=== PATIENT | male | born 1975 | race Caucasian/White ===

== ENCOUNTER 2023-03-01 12:48 | Outpatient (RCR) | payer MEDICARE, SELFPAY | END 2023-03-08 14:00 | disposition home or self-care (01) | LOC: PT 12:48 | PROVIDERS: PCP Family Medicine; Visit Provider Anesthesiology Pain Medicine | DX: M54.16 Radiculopathy, lumbar region (principal) | CPT/HCPCS: 97110; 97162 ==

== ENCOUNTER 2023-03-15 07:37 | Day surgery (SDC) | payer MEDICARE, SELFPAY ==
[2023-03-15 08:09] VITALS: BP 140/92; PULSE 68; RESP 16; TEMP 36.7; O2SAT 97
[2023-03-15] MEDS: 0.9 % SODIUM CHLORIDE 500 ML IV (08:16)
--- NOTE | 2023-03-15 08:25 | W.PM.PROCNOT ---
Date of procedure: 03/15/23 Procedure: Right Lateral cutaneous iliohypogastric nerve Radiofrequency ablation PreOp diagnosis: pain secondary to include right lateral cutaneous neuritis Postop diagnosis same Under fluoroscopic guidance Rhizotomy was created using radio frequency ablation at 80?C for 90 seconds 1 to 2 lesions created at each site. Post lesioning injection of 2 mL each of 0.25% Marcaine and 2% lidocaine with Depo-Medrol 40mg. 0.5 to 1 mL injected at each site IV in place yes Intravenous fluids: NS at KVO Anesthesia local 2% lidocaine for Anesthesia Other: MAC Timeout process compliant After informed consent obtained. Patient brought to the procedure room placed in the prone position skin overlying the area was prepped and draped in a sterile fashion using betadine. 25 gauge needle was used to create a skin wheal over each of the targeted areas utilizing 2% lidocaine. A rhizotomy needle with a 10 mm active tip was inserted over each of the anesthetized areas and directed towards four different areas in the distribution of the lateral cutaneous branches of the iliohypogastric nerve, accomplished under fluoroscopic guidance. After encountering the same we had positive sensory stimulation, negative motor stimulation was noted. lesions were then created. Post lesioning, steroid solution was injected needles removed. Patient was transferred to recovery room in stable condition to be discharged home after meeting criteria. Anesthesia: MAC Surgeon: Gustavo Carrillo Condition: stable
[2023-03-15] MEDS: METHYLPREDNISOLONE ACETATE 40 MG/ML VIAL INJ (09:03)
[2023-03-15] MEDS: LIDOCAINE HCL 2% 400 MG/20 ML MDV 8 ML INJ (09:04)
[2023-03-15] MEDS: BUPIVACAINE HCL 0.25% PF 25 MG/10 ML VIAL 4 ML INJ (09:05)
[2023-03-15 09:17] VITALS: BP 123/67; PULSE 75; RESP 16; TEMP 36.6; O2SAT 95
[2023-03-15 09:19] VITALS: BP 122/77; PULSE 73; RESP 16; TEMP 36.6; O2SAT 96
== END 2023-03-15 09:34 | disposition home or self-care (01) ==
LOC: SURGOUT 07:38
PROVIDERS: PCP Family Medicine; Visit Provider Anesthesiology Pain Medicine
DX: G57.81 Other specified mononeuropathies of right lower limb (principal)
CPT/HCPCS: 64640; 77002; J1030; J2704

== ENCOUNTER 2023-04-14 08:54 | Outpatient (OUT) | payer MEDICARE, SELFPAY ==
--- NOTE | 2023-04-14 09:26 | PM.CN ---
Consult Note: HPI Data of Consult Patient: known to practice within the last 3 years Consult date: 04/14/23 Requesting Physician: NATALIYA BARTHOLOMEW NP Primary Care Provider: GERMANIA NAILS Consult Narrative Narrative: Patient is here for f/u of right LCIH done on 03/15/23. He had 70% relief of pain with increased fx after procedure continued through today. Pain is in Bilateral SI areas. No new sensorimotor sx or bowel or bladder issues. No adverse medication SE. Medications assist patient with better ability to perform ADLs. He does not have narca at home. RX given today cc:: CC: NATALIYA BARTHOLOMEW NP Review of Systems ROS Status of ROS 10 or more systems reviewed and unremarkable except as noted in history and below Musculoskeletal Reports: back pain PFSH PFSH Medical History Surgical History Meds Home Medications and Allergies Home Medications Medication Instructions Recorded Confirmed Type albuterol sulfate 90 mcg/actuation inhalation Q4H PRN shortness of 03/10/23 History aerosol inhaler breath or wheezing diclofenac sodium 50 mg 50 mg PO BID 03/10/23 03/15/23 History tablet,delayed release duloxetine 30 mg capsule,delayed 30 mg PO QDAY 03/10/23 03/15/23 History release duloxetine 60 mg capsule,delayed 60 mg PO QDAY 03/10/23 03/15/23 History release hydrocodone 5 mg-acetaminophen 325 1 tab PO TID PRN pain 03/10/23 03/15/23 History mg tablet ipratropium 0.5 mg-albuterol 3 mg 3 ml inhalation TID 03/10/23 03/15/23 History (2.5 mg base)/3 mL nebulization soln lisinopril 20 mg tablet 20 mg PO QDAY 03/10/23 03/15/23 History omeprazole 20 mg capsule,delayed 20 mg PO QDAY 03/10/23 03/15/23 History release pregabalin 50 mg capsule (Lyrica) 50 mg PO TID 03/10/23 03/15/23 History tizanidine 4 mg tablet 4 mg PO BID PRN muscle spasticity 03/10/23 03/15/23 History trazodone 50 mg tablet 50 mg PO .hs PRN sleep 03/10/23 03/15/23 History Allergies Allergy/AdvReac Type Severity Reaction Status Date / Time No Known Drug Allergies Allergy Verified 03/15/23 08:23 Exam Constitutional Documenting provider has reviewed patient's vital signs: yes Common normals: no apparent distress, oriented x3, no limitations, alert and well nourished General appearance: cooperative, comfortable and well developed Orientation/consciousness: Yes awake, Yes oriented to person, Yes oriented to place and Yes oriented to time Other: uses cane HENMT Common normals: normocephalic and moist oral mucous membranes Respiratory Common normals: normal respiratory effort, no retractions and no use of accessory muscles Effort & inspection: able to speak in complete sentences and symmetric chest movement Back & Pelvis Common normals: thoracic and lumbar spine normal to inspection Lumbar spine/lower back: normal to inspection, ROM limited, pain with ROM, paraspinal muscle tenderness and paraspinal muscle spasm Other: positive facet loading bilat positive jo-ann bilat Muscle strength 4/5 bilat with intact sensation bilat LE Assessment and Plan Assessment and Plan (1) Sacroiliac joint pain: (2) Muscle spasm: (3) Lumbar spondylosis:
== END 2023-04-14 08:55 | disposition home or self-care (01) ==
LOC: PM 08:54
PROVIDERS: PCP Family Medicine; Visit Provider Nurse Practitioner
DX: M47.816 Spondylosis without myelopathy or radiculopathy, lumbar region (principal); M62.838 Other muscle spasm; M53.3 Sacrococcygeal disorders, not elsewhere classified
CPT/HCPCS: G0463

== ENCOUNTER 2023-07-27 09:00 | Outpatient (OUT) | payer MEDICARE, SELFPAY ==
--- NOTE | 2023-07-27 09:50 | PM.CN ---
Consult Note: HPI Data of Consult Patient: known to practice within the last 3 years Requesting Physician: Razia Contreras NP Primary Care Provider: GERMANIA NAILS Consult Narrative Reason for consult: f/u Narrative: Riccardo Hale a pleasant 47 year old male presents for evaluation and management of chronic back pain with radiculopathy into bilateral buttocks and legs. Patient rating pain 7/10 today, constant, burning sharp pain with intermittent numbness, tingling, and weakness to bilateral legs. Patient has been on diclofenac, norco, lyrica, tizanidine, trazadone with mild pain relief. Patient noticing weight gain and pain continuing to impact functional ability. Would like to discuss treatment options, has been evaluated by many surgeons and deemed non surgical or high risk per patient. cc:: CC: Razia Contreras NP Review of Systems ROS Status of ROS 10 or more systems reviewed and unremarkable except as noted in history and below Musculoskeletal Reports: back pain and muscle weakness PFSH PFSH Medical History Acid reflux ?K21.9 - Gastro-esophageal reflux disease without esophagitis (ICD-10) Former smoker ?Z87.891 - Personal history of nicotine dependence (ICD-10) High cholesterol ?E78.00 - Pure hypercholesterolemia, unspecified (ICD-10) Hypertension ?I10 - Essential (primary) hypertension (ICD-10) Numbness and tingling ?R20.0 - Anesthesia of skin (ICD-10) ?R20.2 - Paresthesia of skin (ICD-10) Obesity ?E66.9 - Obesity, unspecified (ICD-10) Osteoarthritis ?M19.90 - Unspecified osteoarthritis, unspecified site (ICD-10) Sleep apnea ?G47.30 - Sleep apnea, unspecified (ICD-10) Surgical History History of tonsillectomy and adenoidectomy ?Z90.89 - Acquired absence of other organs (ICD-10) Meds Home Medications and Allergies Home Medications Medication Instructions Recorded Confirmed Type albuterol sulfate 90 mcg/actuation inhalation Q4H PRN shortness of 03/10/23 History aerosol inhaler breath or wheezing diclofenac sodium 50 mg 50 mg PO BID 03/10/23 03/15/23 History tablet,delayed release duloxetine 30 mg capsule,delayed 30 mg PO QDAY 03/10/23 03/15/23 History release duloxetine 60 mg capsule,delayed 60 mg PO QDAY 03/10/23 03/15/23 History release hydrocodone 5 mg-acetaminophen 325 1 tab PO TID PRN pain 03/10/23 03/15/23 History mg tablet ipratropium 0.5 mg-albuterol 3 mg 3 ml inhalation TID 03/10/23 03/15/23 History (2.5 mg base)/3 mL nebulization soln lisinopril 20 mg tablet 20 mg PO QDAY 03/10/23 03/15/23 History omeprazole 20 mg capsule,delayed 20 mg PO QDAY 03/10/23 03/15/23 History release pregabalin 50 mg capsule (Lyrica) 50 mg PO TID 03/10/23 03/15/23 History tizanidine 4 mg tablet 4 mg PO BID PRN muscle spasticity 03/10/23 03/15/23 History trazodone 50 mg tablet 50 mg PO .hs PRN sleep 03/10/23 03/15/23 History hydrocodone 5 mg-acetaminophen 325 1 tab PO TID PRN pain #75 tabs 05/25/23 Rx mg tablet diclofenac sodium 75 mg 75 mg PO BID PRN pain #60 tabs 07/27/23 Rx tablet,delayed release hydrocodone 5 mg-acetaminophen 325 1 tab PO TID PRN pain #75 tabs 07/27/23 Rx mg tablet Allergies Allergy/AdvReac Type Severity Reaction Status Date / Time No Known Drug Allergies Allergy Verified 03/15/23 08:23 Exam Constitutional Documenting provider has reviewed patient's vital signs: yes Common normals: no apparent distress, oriented x3, healthy appearing, alert and well nourished General appearance: cooperative Orientation/consciousness: Yes awake, Yes oriented to person, Yes oriented to place and Yes oriented to time Other: uses cane HENMT Common normals: normocephalic, hearing grossly normal bilaterally and moist oral mucous membranes Head and scalp: normocephalic Eye Common normals: PERRL Pupil: PERRL Neck & C-Spine Common normals: full ROM General: normal visual inspection Chest Common normals: inspection of chest normal Respiratory Common normals: normal respiratory effort, no retractions and no use of accessory muscles Effort & inspection: able to speak in complete sentences and symmetric chest movement Back & Pelvis Common normals: thoracic and lumbar spine normal to inspection Lumbar spine/lower back: normal to inspection, ROM limited, pain with ROM, paraspinal muscle tenderness, paraspinal muscle spasm, straight leg raise positive right and straight leg raise positive left Other: positive facet loading bilat positive jo-ann bilat Muscle strength 4/5 bilat with intact sensation bilat LE Extremity Common normals: normal to inspection and full ROM Neuro Common normals: oriented x3, CN's II-XII intact bilaterally, moves all extremities, no focal motor deficits, no sensory deficits noted and deep tendon reflexes 2+ bilaterally Sensorium/orientation: alert Gait (neuro): antalgic and assistive device used cane Motor exam: no movement abnormalities noted and strength abnormal (4/5 BLE) Psych Common normals: mental status grossly normal, thought process normal, cooperative, affect normal, speech normal and activity/motor behavior normal Speech: normal speech Thought process: normal thought process Results Additional Findings Additional findings: I have checked an OARRS report on this patient today and there are no aberrancies noted in the prescribing history.?? A drug screen was completed and reviewed within the last year, and if there has not been a drug screen completed we ordered one today to monitor higher risk, state monitored pain medication use. As part of providing excellent, safe, comprehensive care, the following was completed at our patient's visit: 1. A medication reconciliation and review to ensure accurate knowledge of current/active medications, including asking our patients to inform us about any [id number] medications or herbal remedies/nutritional supplements/alternative remedies. 2. A review to specifically ensure our patients have had annual screening for: elevated body mass index (BMI), tobacco use, screening for depression, and screening for unhealthy alcohol use. When screening is concerning, patients are provided with education and the specific recommendation to discuss the concerning health issue and treatment options with their primary care provider. Assessment and Plan Assessment and Plan (1) Lumbar radiculopathy: (2) Lumbar spondylosis: (3) Muscle spasm: (4) Obesity: Plan continue current medications aquatherapy for low back pain L4-5 KEMAR under fluoroscopy for lumbar radiculopathy f/u with PCP for weight loss management f/u 2 weeks after KEMAR, consider updating imaging of lumbar spine and additional workup for SCS if patient does not responde well to KEMAR.
== END 2023-07-27 09:01 | disposition home or self-care (01) ==
PROVIDERS: PCP Family Medicine; Visit Provider Nurse Practitioner
DX: M54.16 Radiculopathy, lumbar region (principal); M47.816 Spondylosis without myelopathy or radiculopathy, lumbar region; M62.838 Other muscle spasm; E66.9 Obesity, unspecified
CPT/HCPCS: G0463

== ENCOUNTER 2023-08-09 08:01 | Day surgery (SDC) | payer MEDICARE, SELFPAY ==
[2023-08-09 08:32] VITALS: BP 153/97; PULSE 80; RESP 16; TEMP 36.6; O2SAT 97
[2023-08-09 09:47] VITALS: BP 147/97; PULSE 74; RESP 17; O2SAT 98
[2023-08-09] MEDS: 0.9 % SODIUM CHLORIDE 10 ML SYRINGE - SALINE FLUSH 2 ML INJ (09:47)
[2023-08-09] MEDS: METHYLPREDNISOLONE ACETATE 80 MG/ML VIAL INJ (09:47)
[2023-08-09] MEDS: LIDOCAINE HCL 2% PF 100 MG/5 ML VIAL 4 ML INJ (09:47)
[2023-08-09] MEDS: BUPIVACAINE HCL 0.25% PF 25 MG/10 ML VIAL 2 ML INJ (09:47)
[2023-08-09] MEDS: IOHEXOL 240 MG/ML - 10 ML VIAL INJ (09:47)
[2023-08-09 09:49] VITALS: BP 135/91; PULSE 78; RESP 18; O2SAT 94
--- NOTE | 2023-08-09 10:07 | P.ON_ITS ---
Date of procedure: 08/09/23 Pre-op diagnosis: Lumbar Radiculitis Post-op diagnosis: same as pre-op Procedure: Lumbar 4/5 Epidural Steroid Injection Under fluoroscopic guidance Immediate complications none Solution used for injection: Marcaine 0.25% 2mL, 2cc Normal saline, Depo-Medrol 80mg Omnipaque 3 mL Anesthesia local 2% lidocaine up to 4ml Timeout process compliant After informed consent obtained. Patient brought to the procedure room placed in the prone position. Skin overlying the area was prepped and draped in a sterile fashion using betadine. 25 gauge needle used to raise a skin wheel with local anesthetic over the target area identified under fluoroscopy. A 17 gauge Touhy n eedle Was inserted over the anesthetized area and directed towards the inter- space under fluoroscopic guidance. Epidural space was identified with loss of resistance technique to air. Needle Tip placement confirmed with injection of contrast solution. Steroid solution was then injected. Anesthesia: Local Surgeon: Gustavo Carrillo Condition: stable
== END 2023-08-09 09:55 | disposition home or self-care (01) ==
LOC: SURGOUT 08:02
PROVIDERS: PCP Family Medicine; Visit Provider Anesthesiology Pain Medicine
DX: M54.16 Radiculopathy, lumbar region (principal)
CPT/HCPCS: 62323; J1040; Q9966

== ENCOUNTER 2023-08-31 07:59 | Outpatient (OUT) | payer MEDICARE, SELFPAY ==
--- NOTE | 2023-08-31 08:01 | P.CN_ITS ---
Consult Note: HPI Data of Consult Patient: known to practice within the last 3 years Requesting Physician: Razia Contreras NP Primary Care Provider: GERMANIA NAILS Consult Narrative Reason for consult: f/u Narrative: Riccardo Hale a pleasant 48 year old male presents for evaluation and management of chronic back pain with radiculopathy. Patient recently underwent L4/5 KEMAR with 10% relief in radicular symptoms for 2 days. Today rating pain 8/10 bilateral low back radiating to bilateral thighs and lower leg, burning tingling sharp and intermittent numbness. Patients symptoms worse with sitting or standing too long, leaning forward decreases pain. cc:: CC: Razia Contreras NP Review of Systems ROS Status of ROS 10 or more systems reviewed and unremark able except as noted in history and below Musculoskeletal Reports: back pain and muscle weakness PFSH PFSH Medical History Osteoarthritis ?M19.90 - Unspecified osteoarthritis, unspecified site (ICD-10) Numbness and tingling ?R20.0 - Anesthesia of skin (ICD-10) ?R20.2 - Paresthesia of skin (ICD-10) Obesity ?E66.9 - Obesity, unspecified (ICD-10) Acid reflux ?K21.9 - Gastro-esophageal reflux disease without esophagitis (ICD-10) Former smoker ?Z87.891 - Personal history of nicotine dependence (ICD-10) Sleep apnea ?G47.30 - Sleep apnea, unspecified (ICD-10) High cholesterol ?E78.00 - Pure hypercholesterolemia, unspecified (ICD-10) Hypertension ?I10 - Essential (primary) hypertension (ICD-10) Surgical History History of tonsillectomy and adenoidectomy ?Z90.89 - Acquired absence of other organs (ICD-10) Meds Home Medications and Allergies Home Medications Medication Instructions Recorded Confirmed Type albuterol sulfate 90 mcg/actuation inhalation Q4H PRN shortness of 03/10/23 History aerosol inhaler breath or wheezing diclofenac sodium 50 mg 50 mg PO BID 03/10/23 08/09/23 History tablet,delayed release duloxetine 30 mg capsule,delayed 30 mg PO QDAY 03/10/23 08/09/23 History release duloxetine 60 mg capsule,delayed 60 mg PO QDAY 03/10/23 08/09/23 History release hydrocodone 5 mg-acetaminophen 325 1 tab PO TID PRN pain 03/10/23 08/09/23 History mg tablet ipratropium 0.5 mg-albuterol 3 mg 3 ml inhalation TID 03/10/23 03/15/23 History (2.5 mg base)/3 mL nebulization soln lisinopril 20 mg tablet 20 mg PO QDAY 03/10/23 08/09/23 History omeprazole 20 mg capsule,delayed 20 mg PO QDAY 03/10/23 08/09/23 History release pregabalin 50 mg capsule (Lyrica) 50 mg PO TID 03/10/23 08/09/23 History tizanidine 4 mg tablet 4 mg PO BID PRN muscle spasticity 03/10/23 08/09/23 History trazodone 50 mg tablet 50 mg PO .hs PRN sleep 03/10/23 08/09/23 History hydrocodone 5 mg-acetaminophen 325 1 tab PO TID PRN pain #75 tabs 05/25/23 08/09/23 Rx mg tablet diclofenac sodium 75 mg 75 mg PO BID PRN pain #60 tabs 07/27/23 08/09/23 Rx tablet,delayed release hydrocodone 5 mg-acetaminophen 325 1 tab PO TID PRN pain #75 tabs 07/27/23 08/09/23 Rx mg tablet Allergies Allergy/AdvReac Type Severity Reaction Status Date / Time No Known Drug Allergies Allergy Verified 03/15/23 08:23 Exam Constitutional Documenting provider has reviewed patient's vital signs: yes Common normals: no apparent distress, oriented x3, healthy appearing, alert and well nourished General appearance: cooperative Orientation/consciousness: Yes awake, Yes oriented to person, Yes oriented to place and Yes oriented to time Other: uses cane HENMT Common normals: normocephalic, hearing grossly normal bilaterally and moist oral mucous membranes Head and scalp: normocephalic Eye Common normals: PERRL Pupil: PERRL Neck & C-Spine Common normals: full ROM General: normal visual inspection Chest Common normals: inspection of chest normal Respiratory Common normals: normal respiratory effort, no retractions and no use of accessory muscles Effort & inspection: able to speak in complete sentences and symmetric chest movement Back & Pelvis Common normals: thoracic and lumbar spine normal to inspection Lumbar spine/lower back: normal to inspection, ROM limited, pain with ROM, paraspinal muscle tenderness, paraspinal muscle spasm, straight leg raise positive right and straight leg raise positive left Other: positive facet loading bilat positive jo-ann bilat Muscle strength 4/5 bilat with intact sensation bilat LE Extremity Common normals: normal to inspection and full ROM Neuro Common normals: oriented x3, CN's II-XII intact bilaterally, moves all extremities, no focal motor deficits, no sensory deficits noted and deep tendon reflexes 2+ bilaterally Sensorium/orientation: alert Gait (neuro): antalgic and assistive device used cane Motor exam: strength 5/5 throughout and no movement abnormalities noted Psych Common normals: mental status grossly normal, thought process normal, cooperative, affect normal, speech normal and activity/motor behavior normal Speech: normal speech Thought process: normal thought process Results Additional Findings Additional findings: I have checked an OARRS report on this patient today and there are no aberrancies noted in the prescribing history.?? A drug screen was completed and reviewed within the last year, and if there has not been a drug screen completed we ordered one today to monitor higher risk, state monitored pain medication use. As part of providing excellent, safe, comprehensive care, the following was completed at our patient's visit: 1. A medication reconciliation and review to ensure accurate knowledge of current/active medications, including asking our patients to inform us about any [id number] medications or herbal remedies/nutritional supplements/alternative remedies. 2. A review to specifically ensure our patients have had annual screening for: elevated body mass index (BMI), tobacco use, screening for depression, and screening for unhealthy alcohol use. When screening is concerning, patients are provided with education and the specific recommendation to discuss the concerning health issue and treatment options with their primary care provider. Assessment and Plan Assessment and Plan (1) Lumbar radiculopathy: (2) Lumbar spondylosis: (3) Muscle spasm: (4) Sacroiliac joint pain: (5) Chronic prescription opiate use: Assessment and Plan: I feel these medications are improving the patient's quality of life and allow them to tolerate activities of daily living as well as participate in recreational activity.? The patient does not report intolerable side effects. The patient is NOT opioid naive and non-pharmacologic and non-opioid treatment has failed to significantly relieve the patient's pain and improve functionality. The patient has a diagnosis that is related to a somatic or visceral pain etiology. ? ?? I reviewed with the patient the potential risks and side effects with the use of? opioid medications including but not limited to respiratory depression,? sedation, and even . I verified the patient has access to naloxone should? these effects occur. I advised the patient to avoid the use of any other? sedation substances including alcohol, THC, and benzodiazepines while? taking opioid medications due to the risk of compounding side effects and? detrimental outcomes. I reviewed the ENRICHMENT TEACHER, pain treatment agreement, urine? drug screen, and opioid start talking forms. The patient was advised to let? their family know they had Naloxone in case they would need to administer? the medication.? ?? A drug screen was completed within the last year, and no aberrancies were noted regarding their use of controlled substances. The patient understands they are subject to the terms and conditions of the pain contract that they have signed. ? ?? I have checked an OARRS report on this patient today and there are no aberrancies noted in the prescribing history.? Plan update lumbar MRI without contrast in the future as patient continues to have moderate to severe low back pain unresponsive to injection therapy, PT/HEP, and medication therapy continue current medications, tolerating well without side effects continue muscle relaxant rotation in the future not interested in SCS at this time f/u 3 months for medication management
== END 2023-08-31 08:00 | disposition home or self-care (01) ==
PROVIDERS: PCP Family Medicine; Visit Provider Nurse Practitioner
DX: M54.16 Radiculopathy, lumbar region (principal); M47.816 Spondylosis without myelopathy or radiculopathy, lumbar region; M62.838 Other muscle spasm; M53.3 Sacrococcygeal disorders, not elsewhere classified; Z79.891 Long term (current) use of opiate analgesic
CPT/HCPCS: G0463

== ENCOUNTER 2023-11-30 07:55 | Outpatient (OUT) | payer MEDICARE, SELFPAY ==
--- OUTSIDE RECORDS SUMMARY | 2023-11-30 08:06 | XMS_ITS | CCD ---
Author Name Unknown Address [address] [place] [address] Organization [facility] Care Team Providers Care Outcomes Specialist Name Role Phone KIRNUS, DALLAS Unavailable Unavailable KIRNUS, DALLAS Unavailable Unavailable CONWAY ., KALI Consulting Unavailable LAKSHMIPATHY ., NARAAYUSHATH Admitting Tiffany vailable HOUSE, DR SOLO Primary Care Unavailable LAKSHMIPATHY ., MESSI Attending Tiffany vailable LAKSHMIPATHY ., NARENDOMEGAATH Consulting Tiffany vailable LAKSHMIPATHY ., NARAAYUSHATH Admitting Tiffany vailable LAKSHMIPATHY ., MESSI Consulting Tiffany vailable HOUSE, DR SOLO Primary Care Unavailable LAKSHMIPATHY ., MESSI Attending Tiffany vailable GIL ., DR LUCY Maurice Consulting Unavailable GIL ., DR LUCY Maurice Attending Unavailable GIL ., DR LUCY Maurice Admitting Unavailable HOY ., DR GONZALEZ Primary Care Unavailable GIL ., DR LUCY Maurice Attending Unavailable GIL ., DR LUCY Maurice Admitting Unavailable HOUSE, DR SOLO Primary Care Unavailable LAKSHMIPATHY ., MESSI Admitting Tiffany vailable HALKER .NATALIYA Consulting Unavailable HOUSE, DR SOLO Primary Care Unavailable LAKSHMIPATHY ., MESSI Attending Tiffany vailable GIL ., DR LUCY Maurice Attending Unavailable GIL ., DR LUCY Maurice Admitting Unavailable HOY ., DR GONZALEZ Primary Care Unavailable HOUSE, DR SOLO Consulting Unavailable GIL ., DR LUCY Maurice Consulting Unavailable GIL ., DR LUCY Maurice Attending Unavailable GIL ., DR LUCY Maurice Admitting Unavailable CONWAY ., KALI Consulting Unavailable HOY ., DR GONZALEZ Primary Care Unavailable GIL ., DR LUCY Maurice Attending Unavailable GIL ., DR LUCY Maurice Admitting Unavailable CONWAY ., KALI Consulting Unavailable HOY ., DR GONZALEZ Primary Care Unavailable GIL ., DR LUCY Maurice Attending Unavailable GIL ., DR LUCY Maurice Admitting Unavailable HOUSE, DR SOLO Consulting Unavailable TATY ., DR GONZALEZ Primary Care Unavailable JEFFERY ., DR LUCY Maurice Consulting Unavailable GIL ., DR LUCY Maurice Attending Unavailable GIL ., DR LUCY Maurice Admitting Unavailable CONWAY ., KALI Wilson Unavailable HOUSE, DR SOLO Primary Care Unavailable GIL ., DR LUCY Maurice Attending Unavailable GIL ., DR LUCY Maurice Admitting Unavailable CONWAY ., KALI Consulting Unavailable HOY ., DR GONZALEZ Primary Care Unavailable GIL ., DR LUCY Maurice Attending Unavailable GIL ., DR LUCY Maurice Admitting Unavailable HOUSE, DR SOLO Primary Care Unavailable CONWAY ., KALI Consulting Unavailable LAKSHMIPATHY ., JOSEENDOMEGAATH Attending Tiffany vailable LAKSHMIPATHY ., NARENDOMEGAATH Admitting Tiffany vailable LAKSHMIPATHY ., NARENDOMEGAATH Consulting Tiffany vailable HOUSE, DR SOLO Primary Care Unavailable Marisol Zelaya Unavailable Abbey Robin Unavailable SHARON, MILAN Medina Primary Care Unavailable SHARON, MILAN Medina Primary Care Unavailable Kiel Polk MD Attending Unavailable Felicitas RICHARDS, Kiel Remy Attending Unavailable HOUSE, MILAN Medina Primary Care Unavailable Kiel Polk MD Attending Unavailable SHARON, MILAN Medina Primary Care Unavailable SHARON, MILAN Medina Attending Unavailable SHARON, MILAN Medina Primary Care Unavailable Rashad Bowman Admitting Unavaila ble Rashad Bowman Attending Unavaila ble SHARONMILAN Primary Care Unavailable SHARON, MILAN Medina Admitting Unavailable SHARON, MILAN Medina Attending Unavailable SHARON, MILAN Medina Primary Care Unavailable Medications Current Medications Medication Drug Class(es) Dates Sig (Normalized) Sig (Original) Acetaminophen / HYDROcodone (2 sources) Opioid Agonist take 1 tablet by mouth every six hours as needed [place] 5-325 MG 1 tablet as needed Orally every 6 hrs Active [id number] actuat albuterol 0.09 mg/actuat metered dose inhaler (2 sources) beta2-Adrenergic Agonist Albuterol Sulfate HFA 108 (90 Base) MCG/ACT Inhalation for 25 Days Active Albuterol Sulfat e HFA 108 (90 Base) MCG/ACT Inhalation for 25 Days Active amoxicillin 875 mg / clavulanate 125 mg oral tablet (1 source) Penicillin-class Antibacterial Start: 09-23-2023 take 1 tablet by mouth every twelve hours Amoxicillin-Pot Clavulanate 875-125 MG 1 tablet Orally every 12 hrs for 10 day(s) Sep, Active baclofen 10 mg oral tablet (2 sources) gamma-Aminobutyric Acid-ergic Agonist Baclofen 10 MG Oral for 30 Days Active benzonatate 200 mg oral capsule (1 source) Non-narcotic Antitussive Start: 09-23-2023 take 1 capsule by mouth every eight hours Benzonatate 200 MG 1 capsule Orally Three times a day Sep, Active diclofenac 18 mg oral capsule (2 sources) Nonsteroidal Anti-inflammatory Drug take 1 capsule by mouth three times daily as needed Diclofenac 18 MG 1 capsule as needed Orally Three times a day Active DULoxetine 30 mg delayed release oral capsule (4 sources) Serotonin and Norepinephrine Reuptake Inhibitor take 1 capsule by mouth once daily DULoxetine HCl 30 MG TAKE 1 CAPSULE BY MOUTH DAILY Oral for 30 Days Active take 1 capsule by [facility] every twenty-four hours DULoxetine HCl 60 MG 1 capsule Orally Once a day Active fexofenadine hydrochloride 60 mg oral tablet (2 sources) Histamine-1 Receptor Antagonist take 1 tablet by mouth every twelve hours Fexofenadine HCl 60 MG 1 tablet Orally Twice a day Active fluticasone propionate 0.05 mg/actuat metered dose nasal spray (1 source) Corticosteroid Start: 09-23-19 take 2 spray(s) nasal route once daily Fluticasone Propionate 50 MCG/ACT 2 sprays Nasally Once a day for 14 day(s) Sep, Active lisinopril 20 mg oral tablet (2 sources) Angiotensin Converting Enzyme Inhibitor Lisinopril 20 MG Oral for 30 Days Active Medical Marijuana / Cannabinoid Product as documented (2 sources) Medical Marijuan a / Cannabinoid Product as documented as documented as documented as documented Active omeprazole 40 mg delayed release oral capsule (2 sources) Proton Pump Inhibitor take 1 capsule by mouth once daily Omeprazole 40 MG 1 capsule 30 minutes before morning meal Orally Once a day Active predniSONE 20 mg oral tablet (3 sources) Start: 09-23-19 take 1 tablet by mouth every twelve hours predniSONE 20 MG 1 tablet Orally bid for 5 day(s) Sep, Active Start: 04-15-2023 predniSONE 20 MG Take 3 tabs daily x 3 days, then take 2 tabs daily x 3 days, then take 1 tab daily x 3 days. Orally Once a day for 9 days Mar, Not-Taking/PRN pregabalin 200 mg oral malik nguyen (2 sources) Pregabalin 200 M G Oral for 30 Days Active Problems Active Problems Problem Classification Problem Date Documented Date Episodic/Chronic Allergic reactions (1 source) Allergic contact dermatitis due to plants, except food Episodic Chronic obstructive pulmonary disease and bronchiectasis (1 source) Bronchitis, not specified as acute or chronic Episodic Essential hypertension (2 sources) Hypertensive disorder; Translations: [Hypertension, unspecified] Chronic Osteoarthritis (2 sources) Arthropathy of left hip joint; Translations: [Unilateral primary osteoarthritis, left hip] Chronic Other connective tissue disease (1 source) Other muscle spasm; Translations: [OTHER MUSCLE SPASM] Onset: 02-16-2023 Episodic Other nervous system disorders (4 sources) Other chronic pain; Translations: [OTHER CHRONIC PAIN] Onset: 02-15-2023 Chronic Other nervous system disorders (1 source) Other specified mononeuropathies; Translations: [OTHER SPECIFIED MONONEUROPATHIES] Onset: 02-16-2023 Chronic Other non-traumatic joint disorders (1 source) Pain in left hip; Translations: [PAIN IN LEFT HIP] Onset: 01-10-2023 Episodic Other non-traumatic joint disorders (1 source) Pain in right hip; Translations: [PAIN IN RIGHT HIP] Onset: 01-10-2023 Episodic Other upper respiratory infections (1 source) Acute sinusitis, unspecified Episodic Spondylosis; intervertebral disc disorders; other back problems (6 sources) Spondylosis without myelopathy or radiculopathy, lumbar region; Translations: [Other intervertebral disc degeneration, lumbar region] Onset: 03-16-2022 Chronic Unclassified (1 source) LOW BACK PAIN, UNSPECIFIED; Translations: [LOW BACK PAIN, UNSPECIFIED] Onset: 03-17-2022 Past or Other Problems Problem Classification Problem Date Documented Da te Episodic/Chronic Spondylosis; intervertebral disc disorders; other back problems (13 sources) Muscle spasm of back; Translations: [Intervertebral disc disorders with radiculopathy, lumbar region] Onset: 08-03-2022 Episodic Results Test Name Value Interpretation Reference Range Facility Outside Recordson 09-28-2023 Outside Records [id number] [facility] Coding Summaryon 08-25-2023 Coding Summary HTMLBase 64 GynslvdcPBf3rCo+PGh lYWQ+RE0RNWFxG91xeU CfuR7dY2AFEIgXFrzhL RYTKKoEMcHnstTdIE9f aXNjZXJu IC8+OP7jSQZsCupjmIM ps5V3dZE2H55mhr5jJQ xxhWL2FQOfNcTjdzfps 0hbpCt4ETfwJzpfLbYp QAFweW78GDA5tG62Fp5 9qXUvyWUuj9dciPt1Rz EkMWEcQKR6nYgsEUken 4YmOEDgC33egHBgl0D2 IGNvbGxhcHNlOyBlbXB 0mU2qUJkbmqwuh7pjdk ykGfy0jw02yWEnu4Y4h UH6N4CtjvD6MPFkrGHe ZrqxtCEYeS6kchkvt0x ptmriBnRiPYZoTGv3UE k0QVCmeXzfJwLcCL52I QS5ERThucMyO1RkLBIk oKgyOiI0r5E1Lu8MD2B MRxmbL6CAFRAUKQofzM Q+UB06vv99S2OiMwqcD yk8ECCkMAS5cZA4rJ2g TDZyPLqha3M6uQX4F2G gftXuxq3pg4hgBUGdAH aiH69dqLSpv8A5DFRjc OM6XZKilLthYaPjiP84 Oyc+AEMkbKfyy7UmBbw qj8dpw1ooeJg3ZaddUL TujaBofRjqWMD5u0XqN o9lHTBavLW5jIK3rW1n MnSrMrC2LQukO562XpE avVRdVbiiT25cS1ZjtZ A+WTCwPkc7FPGayRstF C8jP5YgJXRsqfasoJIp pZjxCM7eGFEtyatoGJL fbK5gAYHqZ3c0QmOuYo D3XYtmD8YfZDWclkyuQ d35eP3eQrFfYcU7CWte A6JoqpP5RKGzvKRyAQw vOQJ4Q34fj6G3RUAmIZ DgQOM8pKQ8nY2hkPltz jogbGVmdDsgdmVydGlj KTszGRchR232KJFmwOd nPkNvZGluZyBEYXRlOi AgMTIvMDcvMjAyMzwvd GQ+JTKiHMH5lEcyNVVo kUFgBVyjQm1dsSidwOs sFL5nESHkabosXFCozF 8yHMQboIWazRkyRZ9zO QVbwkmdu332SrJkIRJ6 PENjeRGgJ2MwcV2nSxR rSMKgBRAiX0XqhXDiXQ iyN070BOgaIrL0ITZhp vFiR6VbPIXruZbyVrI6 d6E8Yi5Eo4AsvtarD6U qiKPdRmQuDvapICx1M4 RkPjwvdHI+QF71WGHnP S02YKr9OOP8nKlkFMcs HDHlP0JpxK1qVbAsSTX kZGRkOyc+PHRhYmxlIH dpZHRoPScxMDAlJyBzd IftOJ0pIo6nHCBhIIGh nXohwGFuEjGrd3waORV dZRewPQ5vwQaqI1XgyP F2RZGos8m8Ue55D45lA 3JvdXA+TESmbHZ6nUK6 yI6uZcHjFyZ0SFgvH42 4NlFmtNGrVffdz5cgz0 kboLf7DwK7SJChcoXcl IiwMWG2h0SeIp02D79j IHdpZHRoPSIxNSUiIHZ piYatvg0liT6tZc2+PG HcaAH0bDG5mB8zSuWaM zT7BTpaW619DzGpcHMx Adfsu6esj1ifmXy4GdD fQGCdibJtnDkfVGF3g5 EtVo38P0HqcGgap6RcP tm3yt89wYHyv9J7eWB7 Z2BoXMZhbfrkgLNlcJf dXM5iVUCdzzctDUNonQ 8gQJOdQ6e4KgSlByV6I BhbN8GqxvK1EREsjVWh BXGwfZRCwG4izmwlf6g cmlsbYmTfJHZuFDr1BK w8YBKhhDiiPeGsCJG1N rH0TMP2wNQzzP9poYuf dylyhA8nUkb+FOJ9mRL dkMEVBK1xDbvzyZW+PH ZvGXY9eCbgRDvdEDLpa Y5qFMFkH4d6OrGsCuS8 NChrK9CuofU5YAUiqTI xDGRjgEWNdK3okwibk8 wefcqwYyQgKWSoUEb9K Yw6PWTmqQniPjYeNVU2 SoQ0GUI9jFQejA0cjHw jhtnphY8nCtg+QmlydG yjSBQ9NHy1T0XeGvr5D YQbuLnhFK2rsHOyFHvm Ed3cnIarkTzaJR4tAGS tymmzf725IqXkf4qfNL HlkMUsPZfiREY2P30me 2F9WLGeWOHtGVU0jYH0 hT2bhBtyussklASxsDw gdmVydGljYWwtYWxpZ2 84ITEswTukZeMlBOr9N 8EtAzo1QGJvtGepMT9p mSYcFGmrPv1zgHqscXw gGU0kRCOyvmivc590Yr Rxd5cpXTGgnPTdGGspP LD1I27ot2Y5LRNzHIBh QQU2tVY5wU2gsZuzsni gbGVmdDsgdmVydGljYW ndRKklM009BWQstLjoR yWqfKu9T3NfImr7EJCj pBpvSJ9kkBBpFEyuNd8 ftAsfrNenNQ4wKUVkct wsc456OeCqa5rfGJCcz EUvKIcfCKO8G71ub8T1 MTGdIBQzTWB1lPK0wY1 hbGlnbjogbGVmdDsgdm EnoTxdTUurVSykU589M HRvcDsnPlBhdGllbnQg TXdsDQg0O7UcVhblxZE +DJ86KNZqRQ96pOBdlM Zhr9pzqRq7LuWmADKtT JT2oTbbDHrdu7SjMPIl U82rqYZqt3N5ZGXqiRp dqIAuPuJhiOL5vA2wEE meiikbx4snjdilNjxxg 1nhqm89gW63D70qYNcr ZHRoPSIzMCUiIHZhbGl tzn8zrB3wHl3+PGNvbC J3gUT1nD1gKLCbKqZ0J ZjyG475DsQxhVRcIfxu u4ihs5zvaNd1WxY4WCO gumWfxKpiJKL8y7GtEq 33D72zYVfrFBMjBWMxY BUuEYHznTelor2ybL9h Ii8+KRKmkLA0qAJ1mJ6 cGtYpAhY0ULmeH743Er GpfIHpKjokQ94rR0Kjq XA+BINcTkm5UHIlyNrf OP9llFDvGBrmLg3nXTU 7TmJlFqCyNWhsI3EtKL RsdonylnnhzFE2CFHgI EKymV84Jc1kdGedJLXy gMHHxW5cpopxx5lasxe cGwFjQZFhFEy9RAi5JG WjbZubYaLmOAC1RzX4I HD3yIIrbP5dzKfmpham wM8dP4PiPABvrbqdSp5 8qF3mQjGoApB4EWyrJo c+K3LHKN2RNyyiJ3PES OZYOPMBU1FTMCnzpXU+ RQGvFFD7sLeaAVyeHBH igM6mDUWhO0g8RcQlRs M2MJcxE0SwXHTeqxalD n94mD8wDgRpFaF9PEfo J3BlhbV4ADNiaMEiRTr bOMG6B90sh8A6CIMsIP IyRHE7uEX9bZ6muAelz jogbGVmdDsgdmVydGlj NBfgFTwwB300ARFntDq rOeRpMkZgZjT3LuF9Z5 QbGak0UIOxxDioYR0rm TPkFRekFa3aoKtqzLvn KI5wKCDmkuwnZXXpxI7 yKIIwlEEnaHsyGZ5zZR Ulaluow994UzJmSGL3T IXxzKByC4PxcU5xAdLj SLLeFTRvW1QdaCOzTFm pN480VQowObE8HKKowr CwK7DiTEMpyNeqNnX1m 4A3Rc07GCWYYNAlrlzp dGQ+MKFzNYU8hRvwFZy pOVWyvS0cSNEgU4k5Ha ByOiP9LPhcZ7EoFCPyz pbkQf64hY2hUlKmPyZ2 MOsyE4TcpyJ1QGEnoJC dUCypWOW4K55go6M5KV XiRUFmCZS2gBM2zW4ja GlnbjogbGVmdDsgdmVy rYilHHdrOTayV252IKM lfBguUt2TUDN1Q2BxMr v9PAQodJppCD8kfCPbF LgbSn9thBdpdHobFT0b GBRdfpmmGMNluN0zRZF zkGLmnKoeVM9pRFMilu coz911NbCdFHI3HPHne IAgT0WvdE7fJgFlWSFz TRVaV8QntDAxJArnW84 3OGlbVgZ9IRWsegUhF9 UpBUHwtIreBlC6q5I1X s9VGKryxPE+XH48bd33 V2NpItphTyc8UENnSIY 4fIR4cV4sCFWfUTjwm3 N6vUV2Z9OmmnVhok1uv 5dpFBVbHLqjG36mvCIm b5U6SVIeyPT0NMRvdCf mKoIabP75Jio+PGNvbG xvz0ZjObdie2jxa1vsq Xh1ZmFuIPMkaqZelTef AIE5i3UxBo25A05aGCz pZHRoPSIzMCUiIHZhbG zgvr7dgC9kXd3+PGNvb VU6cNL5lZ1yArWwQvE1 YOnzG068MxVvbOLaQiu qd8nzg6cfqYb9TuDeKA UnfhKjdMxtDJJ1k1XiU d95R4GvhNnuu0LiBar0 kt34jDBxn6W7mUN5Z0C hZGRpbmctbGVmdDogMC 2hHPOatuniYHSguS5fV DJyA2x9TbJhPmY9KDek L6MeplP7ZEPvpWYbZGK ziEYFyY1ryluku6twul tfFkRyHRQyAMv5VBc1E CKraLytJvSaTII6QkJ5 GLA3vSMzjT6xeQcuqfq mrP2zQrh+DQv3m1rosU QoGO4dhUF8DZ22DB77p AVyj6Y3mOO9F4BgWXJu gxhopxyosTU7UZMySRF vuV14Sc1zaFjoYn5bRJ WcZNL9TYMycZUoS7Xbb A5lPrQvHGJxDTJeE3Hf yXBqQIafU074QFltRlC 7VHEyyyTfJ6NxLHKicS rwUmZ9d2N1Nw8PAV21I H93QG81eZVpj7Y0cDL2 V9IkCXLhquplffsbdWK 0WOIpKFExdF50Cu7alW gnEm8fMPIwZIU6NUCwt DLfA5JyrM8kRdUxQYKr MUMvO5CifZUjXHlzE53 4OSyuNzG7YTKctxLqB9 MoYJXcxXrdQaP9k7F1O q7ZZr19CV82GZ69sLKc k4I4sNF0O7VzMKLljee bdysxiIJ4DJUhARIlgA 02Nx8xoBzhUq2gJIVhY JA4VIBlnEWpI3IgbT3t JgJoRTViOOYiA2AkpMF jPVeyC982IBrgXyF3IW RcyzYfA3PpOBIqqHioP pS9f8P5At9NGMbufkn5 C9UvLubyfZK+LF38WPG zER13sQKqrZQhw5hthA c7IgCwAICqGLX5tAmvP Qhrj9OqDCDsA19fuKXq c2U (more content not included)... Normal [facility] .Auto Diff 08-24-2023 Auto [place] % 6 % Normal 09-30 [facility] Comment on above: Performed By: #### 1 [id number], [id number], [id number], [id number], [id number], [id number] ####[facility] (DEFAULT)[address] [place] [address] 89434 Baso Abs# 0.1 x10 Normal 0.0-0.2 [facility] Comment on above: Performed By: #### 1 [id number], [id number], [id number], 2473640, [id number], 9598262 ####[facility] (DEFAULT)[address] [place] [address] 63705 Basophils/100 WBC (Bld) 1.0 % Normal 0.2-2.0 [facility] Comment on above: Performed By: #### 1 [id number], [id number], [id number], 8195730, [id number], [id number] ####[facility] (DEFAULT)[address] [place] [address] 93176 Eos Abs# 0.1 x10 Normal 0.0-0.4 [facility] Comment on above: Performed By: #### 1 [id number], [id number], [id number], 4825667, [id number], 6300922 ####[facility] (DEFAULT)[address] [place] [address] 26665 Eosinophils/100 WBC (Bld) 1.1 % Normal 0.9-4.0 [facility] Comment on above: Performed By: #### 1 [id number], [id number], [id number], 3268180, [id number], 5908276 ####[facility] (DEFAULT)[address] [place] [address] Lymph Abs# 2.1 x10 Normal 1.3-2.9 [facility] Comment on above: Performed By: #### 1 [id number], 39769601, [id number], 8458415, [id number], [id number] ####[facility] (DEFAULT)[address] [place] [address] Lymphocytes/100 WBC (Bld) 26 % Normal 14-48 [facility] Comment on above: Performed By: #### 1 [id number], 79830263, [id number], 2920025, [id number], 8827530 ####[facility] (DEFAULT)[address] [place] [address] [place] Abs# 0.5 x10 Normal 0.0-0.8 [facility] Comment on above: Performed By: #### 1 [id number], 04547006, [id number], 6022733, [id number], 1698855 ####[facility] (DEFAULT)[address] [place] [address] Neut Abs# 5.2 x10 Normal 1.5-9.2 [facility] Comment on above: Performed By: #### 1 [id number], [id number], [id number], 8094000, [id number], 4927522 ####[facility] (DEFAULT)[address] [place] [address] Neutrophils/100 WBC (Bld) 65 % Normal 44-88 [facility] Comment on above: Performed By: #### 1 [id number], 35715230, [id number], 2690359, [id number], 1884559 ####[facility] (DEFAULT)[address] [place] [address] CBC w/ Auto Diffon 3 Erythrocyte distribution width (RBC) [Ratio] 13.7 % Normal 11.5-15.0 [facility] Comment on above: Performed By: #### 1 [id number], 84076549, [id number], 3832047, [id number], 2934574 ####[facility] (DEFAULT)[address] [place] [address] Hematocrit (Bld) [Volume fraction] 45.6 % Normal 34.8-51.9 [facility] Comment on above: Performed By: #### 1 8887627, 13052357, [id number], 4695403, [id number], 8586525 ####[facility] (DEFAULT)[address] [place] [address] Hemoglobin (Bld) [Mass/Vol] 15.2 g/dL Normal 11.8-17.7 [facility] Comment on above: Performed By: #### 1 [id number], [id number], [id number], 2582903, [id number], 8461874 ####[facility] (DEFAULT)[address] [place] [address] Man Diff? Auto Invalid Interpretation Code [facility] Comment on above: Performed By: #### 1 [id number], 44676515, [id number], 3107252, [id number], 5427154 ####[facility] (DEFAULT)[address] [place] [address] MCH (RBC) [Entitic mass] 29 pg Normal 24-34 [facility] Comment on above: Performed By: #### 1 [id number], 00722844, [id number], 6359847, [id number], [id number] ####[facility] (DEFAULT)[address] [place] [address] 85109 MCHC (RBC) [Mass/Vol] 33 g/dL Normal 26-37 [facility] Comment on above: Performed By: #### 1 8326979, 43355301, [id number], 7975814, [id number], 6437490 ####[facility] (DEFAULT)[address] [place] [address] 28919 MCV (RBC) [Entitic vol] 88 fL Normal 81-100 [facility] Comment on above: Performed By: #### 1 [id number], 14913952, [id number], 2215897, [id number], 0387167 ####[facility] (DEFAULT)[address] [place] [address] Platelet 391 x10 Normal 138-427 [facility] Comment on above: Performed By: #### 1 [id number], 05717760, [id number], 0528383, [id number], 7827572 ####[facility] (DEFAULT)[address] [place] [address] Platelet mean volume (Bld) [Entitic vol] 8.5 fL Normal 6.3-10.2 [facility] Comment on above: Performed By: #### 1 5793785, 33411116, [id number], 4157353, [id number], 9416717 ####[facility] (DEFAULT)[address] [place] [address] RBC 5.19 x10 Normal 3.70-5.30 [facility] Comment on above: Performed By: #### 1 [id number], 68268259, [id number], 1822429, [id number], 8552752 ####[facility] (DEFAULT)[address] [place] [address] WBC 8.0 x10 Normal 3.5-10.5 [facility] Comment on above: Performed By: #### 1 [id number], 54271170, [id number], 8445933, [id number], 7127908 ####[facility] (DEFAULT)[address] [place] [address] CMP Standardon 08-24-2023 eGFR Non AA >60 Invalid Interpretation Code [facility] Comment on above: Performed By: #### 1 [id number], 18203754, [id number], 4970964, [id number], 7200109 ####[facility] (DEFAULT)[address] [place] [address] eGFR AA >60 Invalid Interpretation Code [facility] Comment on above: Performed By: #### 1 [id number], 68713088, [id number], 2900727, [id number], 4115987 ####[facility] (DEFAULT)[address] [place] [address] 51492 Albumin [Mass/Vol] 4.4 g/dL Normal 3.5-5.0 [facility] Comment on above: Performed By: #### 1 [id number], 87154504, [id number], 2054643, [id number], 0919839 ####[facility] (DEFAULT)[address] [place] [address] 23736 Alk Phos 60 IU/L Normal 32-91 [facility] Comment on above: Performed By: #### 1 [id number], 34190754, [id number], 0908747, [id number], 3237478 ####[facility] (DEFAULT)[address] [place] [address] ALT [Catalytic activity/Vol] 52.0 U/L Normal 17.0-63.0 [facility] Comment on above: Performed By: #### 1 [id number], 53400443, [id number], 6273607, 2944452060, 0746267 ####[facility] (DEFAULT)[address] [place] [address] 87581 AST [Catalytic activity/Vol] 32 U/L Normal 15-41 [facility] Comment on above: Performed By: #### 1 [id number], 38861983, 0845280941, 5408701, 8557540975, 7271771 ####[facility] (DEFAULT)[address] [place] [address] 09643 Bili Total 0.9 mg/dL Normal 0.3-1.2 [facility] Comment on above: Performed By: #### 1 1792295, 92295935, 8671544469, 7110313, 8046456887, 5335653 ####[facility] (DEFAULT)[address] [place] [address] 99583 Calcium [Mass/Vol] 9.4 mg/dL Normal 8.9-10.3 [facility] Comment on above: Performed By: #### 1 4321025, 81350755, 7142111808, 2250635, 5108561836, 8805910 ####[facility] (DEFAULT)[address] [place] [address] 58073 Chloride [Moles/Vol] 109 mmol/L Normal 101-111 [facility] Comment on above: Performed By: #### 1 2877281, 12143255, [id number], 4546470, 2421405358, 4950059 ####[facility] (DEFAULT)[address] [place] [address] 84965 CO2 [Moles/Vol] 25 mmol/L Normal 21-32 [facility] Comment on above: Performed By: #### 1 0434574, 03389735, 0187136615, 4681977, 7691406925, 0257291 ####[facility] (DEFAULT)[address] [place] [address] 93025 Creatinine [Mass/Vol] 0.74 mg/dL Low 0.90-1.30 [facility] Comment on above: Performed By: #### 1 [id number], 81453124, [id number], 0021599, 7523956672, 6257365 ####[facility] (DEFAULT)[address] [place] [address] 22540 Glucose [Mass/Vol] 105.0 mg/dL Normal 74.0-118.0 [facility] Comment on above: Performed By: #### 1 7626085, 16510863, 7759000048, 8632193, 0903972964, 4135977 ####[facility] (DEFAULT)[address] [place] [address] 62802 Potassium [Moles/Vol] 4.0 mmol/L Normal 3.6-5.1 [facility] Comment on above: Performed By: #### 1 0804873, 95746229, 3133205895, 8635091, 8302980789, 3420300 ####[facility] (DEFAULT)[address] [place] [address] 16863 Protein [Mass/Vol] 7.5 g/dL Normal 6.5-8.1 [facility] Comment on above: Performed By: #### 1 7800989, 90642956, 7857922499, 4098050, 4888521974, 0402559 ####[facility] (DEFAULT)[address] [place] [address] 99046 Sodium [Moles/Vol] 140.0 mmol/L Normal 136.0-144.0 [facility] Comment on above: Performed By: #### 1 3145394, 74602623, 0637653820, 3959675, 4470966573, 0248012 ####[facility] (DEFAULT)[address] [place] [address] Urea nitrogen [Mass/Vol] 10 mg/dL Normal 8-26 [facility] Comment on above: Performed By: #### 1 5731194, 39647394, 7773753709, 9672596, 3058952177, 7096424 ####[facility] (DEFAULT)[address] [place] [address] Albumin/Globulin [Mass ratio] 1.4 {ratio} Normal 1.4-2.6 [facility] Comment on above: Performed By: #### 1 5878076, 21729877, 8378885736, 8041139, 0360312894, 1408665 ####[facility] (DEFAULT)[address] [place] [address] 40094 Anion gap [Moles/Vol] 10.0 mmol/L Normal 5.0-19.0 [facility] Comment on above: Performed By: #### 1 3125691, 95863386, 8356220146, 0788901, 8661922100, 8061047 ####[facility] (DEFAULT)[address] [place] [address] 03547 Globulin (S) [Mass/Vol] 3.1 g/dL Normal 1.5-4.3 [facility] Comment on above: Performed By: #### 1 0158020, 32310014, [id number], 2726844, [id number], [id number] ####[facility] (DEFAULT)[address] [place] [address] Osmolality 279 mOsm/L Invalid Interpretation Code [facility] Comment on above: Performed By: #### 1 [id number], [id number] ####[facility] (DEFAULT)[address] [place] [address] Urea nitrogen/Creatinin e [Mass ratio] 13.5 mg/mg Normal 4.6-16.2 [facility] Comment on above: Performed By: #### 1 [id number], [id number] ####[facility] (DEFAULT)[address] [place] [address] HgbA1c Standardon 08-24-2023 .Hb 16.6 Invalid Interpretation Code [facility] Comment on above: Performed By: #### 1 [id number], [id number], [id number], [id number] ####[facility] (DEFAULT)[address] [place] [address] .Hgb A1c 0.59 g/dL Invalid Interpretation Code [facility] Comment on above: Performed By: #### 1 [id number], [id number], [id number] ####[facility] (DEFAULT)[address] [place] [address] Glucose [Mass/Vol] 108 mg/dL Invalid Interpretation Code [facility] Comment on above: Performed By: #### 1 [id number], [id number], [id number], [id number] ####[facility] (DEFAULT)[address] [place] [address] HbA1c (Bld) [Mass fraction] 5.4 % Normal 4.6-6.2 [facility] Comment on above: Performed By: #### 1 [id number], [id number], [id number], [id number] ####[facility] (DEFAULT)[address] [place] [address] Reminder Messageson 08-24-20 Reminder Messages -- From: MILAN NAILS DO To: [facility] Clinical Pool ([facility] Sent: 08/24/2023 12:33:59 EST ! Show up: 08/24/2023 12:33:59 EST Subject: Results Follow Up Actions: Call the patient with result(s) Due Date/Time: 08/25/2023 12:33:00 EST Reminder Comments: looks good Results: Date Result Name Value Ref Range 08/24/2023 10:17 Estimated Avg Glucose 108 mg/dL 08/24/2023 10:17 Hgb A1c % 5.4 % (4.6 - 6.2) Patient called and notified of results. Verbalized understanding. [facility] Reminder Messages -- From: MILAN NAILS DO To: [facility] Clinical Pool ([facility]); Sent: 08/24/2023 12:24:35 EST ! Show up: 08/24/2023 12:24:35 EST Subject: Results Follow Up Actions: Call the patient with result(s) Due Date/Time: 08/25/2023 12:24:00 EST Reminder Comments: looks good Results: Date Result Name Ind Value Ref Range 08/24/2023 10:17 Sodium Level 140.0 mmol/L (136.0 - 144.0) 08/24/2023 10:17 Potassium Level 4.0 mmol/L (3.6 - 5.1) 08/24/2023 10:17 Chloride Level 109 mmol/L (101 - 111) 08/24/2023 10:17 CO2 25 mmol/L (21 - 32) 08/24/2023 10:17 Anion Gap 10.0 mmol/L (5.0 - 19.0) 08/24/2023 10:17 Glucose Level 105.0 mg/dL (74.0 - 118.0) 08/24/2023 10:17 BUN 10 mg/dL (8 - 26) 08/24/2023 10:17 Creatinine Level ((L)) 0.74 mg/dL (0.90 - 1.30) 08/24/2023 10:17 BUN/Creat Ratio 13.5 (4.6 - 16.2) 08/24/2023 10:17 eGFR AA >60 mL/min/1.73m2 08/24/2023 10:17 eGFR Non AA >60 mL/min/1.73m2 08/24/2023 10:17 Calcium Level 9.4 mg/dL (8.9 - 10.3) 08/24/2023 10:17 Bili Total 0.9 mg/dL (0.3 - 1.2) 08/24/2023 10:17 Alk Phos 60 IU/L (32 - 91) 08/24/2023 10:17 AST/SGOT 32 IU/L (15 - 41) 08/24/2023 10:17 ALT/SGPT 52.0 IU/L (17.0 - 63.0) 08/24/2023 10:17 Protein Total 7.5 gm/dL (6.5 - 8.1) 08/24/2023 10:17 Albumin Level 4.4 gm/dL (3.5 - 5.0) 08/24/2023 10:17 Globulin 3.1 gm/dL (1.5 - 4.3) 08/24/2023 10:17 A/G Ratio 1.4 (1.4 - 2.6) 08/24/2023 10:17 Osmolality 279 mOsm/L 08/24/2023 10:17 T4 9.52 mcg/dL (6.09 - 12.23) 08/24/2023 10:17 TSH 1.11 mcIU/mL (0.45 - 5.33) 08/24/2023 10:17 WBC 8.0 x103/mcL (3.5 - 10.5) 08/24/2023 10:17 RBC 5.19 x106/mcL (3.70 - 5.30) 08/24/2023 10:17 Hgb 15.2 gm/dL (11.8 - 17.7) 08/24/2023 10:17 Hct 45.6 % (34.8 - 51.9) 08/24/2023 10:17 MCV 88 fL (81 - 100) 08/24/2023 10:17 MCH 29 pg (24 - 34) 08/24/2023 10:17 MCHC 33 gm/dL (26 - 37) 08/24/2023 10:17 RDW 13.7 % (11.5 - 15.0) 08/24/2023 10:17 Platelet 391 x103/mcL (138 - 427) 08/24/2023 10:17 MPV 8.5 fL (6.3 - 10.2) 08/24/2023 10:17 Auto Neut % 65 % (44 - 88) 08/24/2023 10:17 Auto Lymph % 26 % (14 - 48) 08/24/2023 10:17 Auto [place] % 6 % (1 - 12) 08/24/2023 10:17 Auto Eos % 1.1 % (0.9 - 4.0) 08/24/2023 10:17 Auto Baso % 1.0 % (0.2 - 2.0) 08/24/2023 10:17 Neut Abs# 5.2 x103/mcL (1.5 - 9.2) 08/24/2023 10:17 Lymph Abs# 2.1 x103/mcL (1.3 - 2.9) 08/24/2023 10:17 [place] Abs# 0.5 x103/mcL (0.0 - 0.8) 08/24/2023 10:17 Eos Abs# 0.1 x103/mcL (0.0 - 0.4) 08/24/2023 10:17 Baso Abs# 0.1 x103/mcL (0.0 - 0.2) Patient called and notified of results. Verbalized understanding. Normal [facility] T4, Totalon 08-24-2023 T4 [Mass/Vol] 9.52 ug/dL Normal 6.09-12.23 [facility] Comment on above: Performed By: #### 1 [id number] ####[facility] (DEFAULT)[address] [place] [address] TSHon 08-24-2023 TSH Qn 1.11 m[IU]/L Normal 0.45-5.33 [facility] Comment on above: Performed By: #### 1 [id number], [id number] ####[facility] (DEFAULT)[address] [place] [address] Coding Summaryon 11-14-2023 Coding Summary HTMLBase 64 LpsbilkdHQv2hKp+PGh lYWQ+EW6AYTFsC65cxU PpqO0lS3FDRGsQMwxaP CGKPLrOPuGivgIlZH5g aXNjZXJu IC8+AV5jSJXqWbbbqDN uw2B2aUM3L61voe5sFP calJP3IWSeYiEchwkwu 6tcfKj2SInxAwksXeGe EPFphD37JNO6hF93Ls0 4tFNtqVPtf6tgoZa5Pr KfVAGvOMW5qIdoGVlif 3LmCSPvR54uuKPdb2B0 IGNvbGxhcHNlOyBlbXB 0cO9yFSxunlnyw6xgsb xmJqp4rh91xDHmh7I2f WZ3E3KxqcA6DFEdlSYj HxupnYETuZ9vneecb2s ckumfGaCrBHBlMFd8HO g1ABXxtVghPpHfLB24O VQ4AKMhxjQaG8HvYQQy vTgvHsW0d9H6Ul3OI3Q ADyimT1DWTCXQZThhzV Q+DC29fo36A4TxXoldU sj3AIEpSBY6eLF9sX1w XDEkTRwoe8Q2eIK6Z4R hwbIzdx7kt2alDZIxBR fsD83cuNFzf6O1BFMzk HX1PJPcaIczCcGhkG70 Oyc+HZSbwSjia9MwYyr zb7zpf5ecfNs8SwhzAU UwbqUczOeoMOV7r0LyF p5dWPPawBG3lHI8cQ6i MbXkWzW1LGdvX810AgN glOVnJlflO60hL1YcqK A+ZSUuVzv2AXXiwTcxT B1cB5MuLCRdjfktrTHp yYuyYV3zGSXmjvafFPA gpX9uRBDeH3j0WhHrLp E1JWznB7WeGGTadnyjS j47cW1tCoFlBvI0WQun G0AsvmO2AGWofZNvAZg lJYO3V17li2T5CFHkXM VnWIV8iIO1hY7blPogt jogbGVmdDsgdmVydGlj JUlqTKsoK892WELqnZb nPkNvZGluZyBEYXRlOi AgMTEvMTQvMjAyMzwvd GQ+GDTyOON8fPmdQSTi cSRaZOoxHx5bzHxmkTw nPG5fINTfsffpIIIsrG 9aFAWpjMNxnXxaYP1rH LPhiitbf855UwEbKPU8 WGXjkEUeI5TajY7sOtL mKVDfAAMkX9PviGSrDG wjR181WYuqAhJ8APFji bIyW7OoYUKqgQzxLkR5 k9R1Ei2Ns7ClzlztE3U maAMpXjGeAxnvXEr7H7 RkPjwvdHI+VP11CBIjO M04UXa8XSF0qMqcFGsw SAKjS5DwhT4cTmQcIXD kZGRkOyc+PHRhYmxlIH dpZHRoPScxMDAlJyBzd AjrJF3qPk4qXQOaINQw pSaknQIvTqEmm3xmTXH vZSxpTH4kmBsuI0UehA Y1UUSdg7z0Bc58N03dE 3JvdXA+VAUwmRE0gVZ4 pL8jVmTbWzN8XSidL64 5LlZfnRTtVhwre9hhj5 wuxNx5RiH3BYRiugGby FsiFFI2j5BzPx50O75j IHdpZHRoPSIxNSUiIHZ wxJjkfp6ovL8fTa0+PG OdcUZ2oEL5wD8iOcIlI uD2ZAtvE339LyBglTNr Wugxi7nyw5caaYe6XaL cAYLlwxOlvJccSZG3i3 IkEv77A0WjpQdlp9MtQ bs3sn99jODfi0M9oNP3 C8OvJCPcrnwxbNRhdMc cRD4uZVKobtebFPWndC 3nELCjU1p5NjGlLvM0K UdaH3PkfaS7DFGnbSZc PVIogHUYsQ2gsszdg8m bkencWxTpGWVpZGg7EC s3VUKgqGupNfOdNNP2J wW3ZQY1mWKftT7glCbr xvuwrQ7yAfj+ZLA2oIH koCAUVY7vGxmdkQT+PH NkWCS8cHdmXJdqBAIkn G7yYXDtG7f6AtFlHzI5 JHqoC0YrazT4APIqkMR cBEKooJHGqQ1rkpgiy5 xkcikcWcEiVVHjMTb9H Ga0WSIrfZjzNoAbMEF8 EeA6RTN7aUGaaR9jnWq tpdrbsC4yEzu+QmlydG baICK7MYj8L5GlJrg0U LKvrEvbBO5tmOZnXIpy Ll0moHtbsZfqCY5rLKN hacrtp890ZsLmo3gpGF MzrPHxYDwsKWP6Y23gx 1R6DOYpRUWtXFS1zTC3 oP0zcOquacmdwOEycZi gdmVydGljYWwtYWxpZ2 85GKPrwApbAkYkBXo8G 5KfDrj0PPAmnCchZQ2j lXIlPNwvNl4xzGcamAz xZI3qUNPvamcdn566Kp Xzt7utDGGhdZXgTRcqZ DN4H15td6F8BMXvXLQj ILU7bQO0mL7ttFfnrij gbGVmdDsgdmVydGljYW inAEzpZ923ZOOndFghN hJxkEe4Y4MlQom4FHEa dVcpDC0bqUWsCCkmBu4 ebIatzCauKP9bDTDunv mcp643FyAmc1dmVKZew OSnMTanKFW3C05df9E8 CNIqUKVrKEG5fLV1aP6 hbGlnbjogbGVmdDsgdm LnkQtgQLobHYfeU955K HRvcDsnPlBhdGllbnQg AJveRXm3Z4FwHuupqPQ +IP09YUQmIY09jYOouF Vbm2cmwCt8GiQbMGNbG JC3gJfmZNwjv3IsPSLn G77qoKEtp9C0UUUgaGy boUYvHkVzkUP8lB7qNA imhibhl4azahekEkbrn 9xten30fB75C80nCDyd ZHRoPSIzMCUiIHZhbGl tvv9niA8wNz0+PGNvbC U8yEM4vQ6hZYTcSrN9R KscY339ExLomHYtQrbe v0dig7rasEb5OkF4SJC rnxLrjKglQOK9o4OjPw 03S58iTCklKWCaMEOtN ZWuGFLczZsxch2rwF5p Ii8+LEMmoVJ7nFR7eA8 wVqZwMxP2LFmpD380Zq PwxLGxTkjkY15dP9Nco XA+LYAkMlg6LGYfyOzb NT2lpEFtICyfRu2qDSA 5IxVoIpMlTImfB9VxYM KwyzpdbklogPM7MURsM PFumB25Xi1miRqqLGYx gENGmW8cvniyv2rghvg pMnNbFAPsAKo0OAy3AW DicHrtOgAyICW3OaS0H KM9wRUbdO9okNymrwdm mT8wH7LyVOHynufaIj6 3yJ4gQtWuFuO8QNmqRo c+L6ZIGR6NPoygZ3YIQ FYYTFBDW0MQDCwfrYE+ IPAxIPI2nEclZFooOMU ueJ3pLKVoC9d8SeFgIc U6LLtoX9AoOOCierjdD j57yY3eIsLlUoE7VGwq N1VqkxZ9TRUerUHoYAw uCHE3G03pk3X3AMPmQX XfQIG2vLU7sT9nfOczg jogbGVmdDsgdmVydGlj CAupRNynE371PDZxcAp bDoKjOqEdDlN2CqY4Z3 TvKtf8AUUtnUtlGC6en SVlRJisSg0eeTyfhOnk ZM2iFBFestzuAHJhaP8 zJPDknRWlvMdnNJ8tRS Ipflnrp465DqRxDAP9X YLpoNCkT7VucQ7jUtAf FHMnLWDyB6UhoRPcUJv rT897HZipVnM7LWNcqj VeH3UiAVCnpFelBaY3o 7H2Qr20IBSRFLRfneqo dGQ+GKMoNSH9sSyoBFc jNSXxkI6zDYKnC2y6Lm WiCbQ0HRrhT1BvRTQtq yjrRg33iO3hLcZnXyB2 FFsrS8UhobN3IHDbyZA kDHlfADL6M68it7Q5ZF UiYCLmJZK0bHS3hV9be GlnbjogbGVmdDsgdmVy xMjzAMzdDRbbY450HBD kjNbxOa8SDDU9W2LkKw u2ZVQkmUxzES5rsPPmL RfkZr1usUimgGanXX2v CZQvchwnLNGrfI8sPUM zlATfeFeeCI1xDGCtmq szq704FwAqJRL0KCTbq WXyB2OlqE2oMpMnSPZq YIQjC4IdwYOwJUkkK19 8TXuxRxW6KZRgsyMbJ2 RyEGOmgGqcSyK4v3H0Q v6RWPdluHV+WV66yx63 I1KgAhqhIdh5FWGdFTT 7hIF3dU4oKLYaGTcje0 C0pBJ4K1UzlnUarc8xw 6gvOKKvIIfmU09qmXMu t8R3EYQpfOU2EUDluDu zEsCgjC12She+PGNvbG naz1GtNeywk3rar6lov Vc5YzFyZHLqehYtkUvi SKK3w2CbIt24J98bPPw pZHRoPSIzMCUiIHZhbG vbbf6xhG5sEc3+PGNvb LI1hZZ6hC1vQuMwDzV3 IVocT180YlPgfGFbKnb yg7hbk8nriJt8MaFyGV EvzeDphDhpNMN4d8HsR d31N6NghPchu4MuUtr5 ii85uDQvb5N8dYN9D4B hZGRpbmctbGVmdDogMC 3rNIDrqhuvZSEihE2yN AZxS9s6TrRvLrR9KEfh D9LqgbA0IALveMKdNVD zjOURpI9bvmqms1tjxz eqMyFzLCBfELd1ZKp0E RPgfXkhVlWdDKV8WsS5 GWN8yTYpgQ2hbUxnfaw csU0oNjq+PZa8o0gbaA RuSJ4uaBV6OG97ZZ51w QIqz1P0zVS9B4RnQXDt uqrcqeydnOR9ICJgLPI niR29Na6laRulBp0oRQ MgYNP3CMAcpLUyD7Vpl X9bWlEoDSJjLHMqQ1Wu hROfKTipZ689GXszBpQ 6QNZnqvXiG6JoAEQjeY ohLwW0e2O6Hq1WKN30N R74DD25lKZxy7D7oZP9 J3ZaIWAcdzwjzgflpZM 2SKEaQZGxeY65Tx3fdC omXv7dFRZvKJZ4NCWst XUkS8WjjK9kWrAnRJGt SZCgK2NifIFkMHgiB73 8NVeyTuM3RDVbjjDdK0 XkOCJwnXfuQfN6k7J9X o2HLa15BN18DM58jKBx l0Y5rPV5O7BtYZQspbk ehjzxsQS3EVOfJTYhpT 67Al7nnCilGb4rOXVzN VT8WZSxxPFcX4BlfR3w CzCvDRSmMKQqZ9TlwZF fAGelH945PElmDcP4XK GjrmAiO2VcCAGkcTfaF kE5t7Z2Mu2NLIhifzg3 H8UaHyvsyOW+PP82DAZ cHI15gQVovWAls1enaX v6VcIyQZOpGCI4kFjpH Ybyf6PaRVNdP96fnUYq c2U (more content not included)... Normal [facility] ED Clinical Summaryon 2022 ED Clinical Summary [facility] ? Urgent Care [address] [place] [address] Clinical Summary PERSON INFORMATION Name: DION ANDRES Age: 47 Years Sex: MALE : 1975 MRN: Acct#: Visit Reason: UC - Laceration; LACERATION ON LEFT HAND Arrival: 07/26/2023 15:38:23 Discharge: 07/26/2023 17:27:00 LOS: 000 01:49 Check In: 07/26/2023 15:38:23 Checkout: 07/26/2023 17:27:00 Address: [address] [place] [id number] PCP: MILAN NAILS DO PROVIDER INFORMATION Provider Role Assigned Unassigned Rashad Bowman ED PA 07/26/2023 15:51:54 Carlos RN, Bebe ED Nurse 07/26/2023 16:17:08 VITALS INFORMATION Vital Sign Triage Latest Temperature Tympanic Temperature Temporal Artery Pulse Rate O2 Sat 97 % 97 % Respiratory Rate Blood Pressure /99 mmHg /99 mmHg MEDICAL INFORMATION Medications Given: Medication Dose Route bacitracin topical 500 unit(s) TOP tetanus/diphth/pert uss (Tdap) adult/adol 0.5 mL IM Allergy Information: No known allergies PHYSICIAN DOCUMENTATION DISCHARGE INFORMATION: Discharge Disposition: Home Discharge Location: Home PATIENT EDUCATION INFORMATION Instructions: Sutured Wound Care Follow-Up: With: Address: When: MILAN NAILS DO [address], [place] [id number] Within 3 to 5 days Comments: Diagnosis is laceration/puncture type wound of the left hand. Per history this occurred we are using a knife. X-ray did not show any evidence of foreign body. We closed the area with nylon sutures and local anesthetic. Leave the dressing on for 24 hours, then remove gently, wash wound twice daily with antibacterial soap, place antibiotic ointment on the wound/laceration, avoid Neosporin or triple antibiotic, as many people developed rashes to these ointments, use only bacitracin ointment. Redress with clean sterile dressing, take your antibiotics as directed, follow up with your primary care provider in 3-4 days for wound check, and have the sutures removed in [10] days, until sutures are removed, do not go into the samayoa, swimming pools, or ponds. You may have a wound check, and sutures removed at the hospitals urgent care. Return to the emergency department/urgent for worsening symptoms or concerns, spiking fevers, signs of infection, bloody or purulent drainage, redness going up or down the arm or leg. DIAGNOSIS: 1:Puncture wound to hand Patient Understands: Yes - Patient/family/palliative care nurse verbalizes understanding of instructions given Comment: Normal [facility] ED Patient Summaryon 023 ED Patient Summary [facility] ? Urgent Care [address] [place] [id number] PATIENT DISCHARGE INSTRUCTIONS Patient Information Name: DION ANDRES Age: 47 Years Date of : 1975 Reason For Visit: UC - Laceration; LACERATION ON LEFT HAND Arrival Time: 07/26/2023 15:38:23 Primary Care Physician: MILAN NAILS DO Attending Physician: Rashad Bowman Comment: Patient Education With: Address: When: MILAN NAILS DO [address] [place] [id number] Within 3 to 5 days Comments: Diagnosis is laceration/puncture type wound of the left hand. Per history this occurred we are using a knife. X-ray did not show any evidence of foreign body. We closed the area with nylon sutures and local anesthetic. Leave the dressing on for 24 hours, then remove gently, wash wound twice daily with antibacterial soap, place antibiotic ointment on the wound/laceration, avoid Neosporin or triple antibiotic, as many people developed rashes to these ointments, use only bacitracin ointment. Redress with clean sterile dressing, take your antibiotics as directed, follow up with your primary care provider in 3-4 days for wound check, and have the sutures removed in [10] days, until sutures are removed, do not go into the samayoa, swimming pools, or ponds. You may have a wound check, and sutures removed at the hospitals urgent care. Return to the emergency department/urgent for worsening symptoms or concerns, spiking fevers, signs of infection, bloody or purulent drainage, redness going up or down the arm or leg. Sutured Wound Care Sutures are stitches that can be used to close wounds. Sutures come in different materials. They may break down as your wound heals (absorbable), or they may need to be removed (nonabsorbable). Taking care of your wound properly can help to prevent pain and infection. It can also help your wound heal more quickly. Follow instructions from your health care provider about how to care for your sutured wound. Supplies needed: ? Soap and water. ? A clean, dry towel. ? Wound cleanser or saline, if needed. ? A clean gauze or bandage (dressing), if needed. ? Antibiotic ointment, if told by your health care provider. How to care for your sutured wound ? Keep the wound completely dry for the first 24 hours, or for as long as told by your health care provider. After 24?48 hours, you may shower or bathe as told by your health care provider. Do not soak or submerge the wound in water until the sutures have been removed. ? After the first 24 hours, clean the wound once a day, or as often as told by your health care provider. Use the following steps: ? Wash and rinse the wound as told by your health care provider. ? Pat the wound dry with a clean towel. Do not rub the wound. ? After cleaning the wound, apply a thin layer of antibiotic ointment as told by your health care provider. This will prevent infection and keep the dressing from sticking to the wound. ? Follow instructions from your health care provider about how to change your dressing. Make sure you: ? Wash your hands with soap and water for at least 20 seconds before and after you change your dressing. If soap and water are not available, use hand fur examiner. ? Change your dressing at least once a day, or as often as told by your health care provider. If your dressing gets wet or dirty, change it. ? Leave sutures and other skin closures, such as adhesive strips or skin glue, in place. These skin closures may need to stay in place for 2 weeks or longer. If adhesive strip edges start to loosen and curl up, you may trim the loose edges. Do not remove adhesive strips completely unless your health care provider tells you to do that. ? Check your wound every day for signs of infection. Watch for: ? Redness, swelling, or pain. ? Fluid or blood. ? New warmth, a rash, or hardness at the wound site. ? Pus or a bad smell. ? Have the sutures removed as told by your health care provider. Follow these instructions at home: Medicines ? Take or apply eqlh-vgo-jqwihnd and prescription medicines only as told by your health care provider. ? If you were prescribed an antibiotic medicine or ointment, take or apply it as told by your health care provider. Do not stop using the antibiotic even if your condition improves. General instructions ? To help reduce scarring after your wound heals, cover your wound with clothing or apply sunscreen of at least 30 SPF whenever you are outside. ? Do not scratch or pick at your wound. ? Avoid stretching your wound. ? Raise (elevate) the injured area above the level of your heart while you are sitting or lying down, if possible. ? Eat a diet that includes protein, vitamin A, and vitamin C to help the wound heal. ? Drink enough fluid to keep your urine pale yellow. ? Keep all follow-up visits. This is impor (more content not included)... Normal [facility] 023 Urgent Care Record [facility] ? Urgent Care [address] [place] [address] PATIENT DISCHARGE INSTRUCTIONS Patient Information Name: DION ANDRES Age: 47 Years Date of : 1975 Reason For Visit: UC - Laceration; LACERATION ON LEFT HAND Arrival Time: 07/26/2023 15:38:23 Primary Care Physician: MILAN NAILS DO Attending Physician: Rashad Bowman Comment: Visit Diagnosis: Diagnoses This Visit Puncture wound to hand (S61.919R) UC - Laceration ([id number]) If you received any narcotics, sedation, or any other medication that causes drowsiness for the next 24 hours, unless otherwise directed: ? Do not drive a car. ? Do not operate machinery such as power tools, lawn mowers, drills, sewing machines, or stoves ? Avoid alcoholic beverages and drugs for allergies, nerves, or sleep ? Do not make important personal or business decisions or sign any legal documents With: Address: When: MILAN NAILS DO [address] [place] [address] Within 3 to 5 days Comments: Diagnosis is laceration/puncture type wound of the left hand. Per history this occurred we are using a knife. X-ray did not show any evidence of foreign body. We closed the area with nylon sutures and local anesthetic. Leave the dressing on for 24 hours, then remove gently, wash wound twice daily with antibacterial soap, place antibiotic ointment on the wound/laceration, avoid Neosporin or triple antibiotic, as many people developed rashes to these ointments, use only bacitracin ointment. Redress with clean sterile dressing, take your antibiotics as directed, follow up with your primary care provider in 3-4 days for wound check, and have the sutures removed in [10] days, until sutures are removed, do not go into the samayoa, swimming pools, or ponds. You may have a wound check, and sutures removed at the hospitals urgent care. Return to the emergency department/urgent for worsening symptoms or concerns, spiking fevers, signs of infection, bloody or purulent drainage, redness going up or down the arm or leg. Medication Information: The exam and treatment you received today in the [facility] were for an urgent problem and are not intended as complete care. It is important for you to follow up with a doctor, nurse practitioner, or physician?s project administrative assistant for ongoing care. If your symptoms become worse or you do not improve as expected and you are unable to reach your usual health care provider, you should return to the Emergency Department, we are available 24 hours a day. For those patients who have received Radiology results, the interpretation of your X-ray as given to you by our Urgent Care physician is only a preliminary report. The Radiologist will review your films and if there is a change in the diagnosis you will be notified by phone. Please make sure you have provided a working phone number so we can reach you if necessary. In the event that you had a lab culture while you were a patient in the Urgent Care, you will be notified by phone if there is a need to change your antibiotic. Please make sure you have provided a working phone number so we can reach you if necessary. [facility] has provided you with a complete list of medications post discharge. Please inform your hydroelectric plant electrician/provider of your visit and for further instruction on these medications. Any specific questions regarding your chronic medications and dosages should be discussed with your primary care physician(s) and/or pharmacist. New Medications [id number], [address], [place] [id number], [phone] amoxicillin-clavula ld (amoxicillin-clavul anate 875 mg-125 mg oral tablet) 1 tab(s) Oral Every 12 hours scheduled time for 7 Days. Refills: 0. bacitracin topical (bacitracin 500 units/g topical ointment) 1 huma Topical 2 times a day for 7 Days. Refills: 0. Additional medications on your home medication list not specifically addressed. Please contact the ordering physician if you have questions about these medications. acetaminophen-hydro codone (acetaminophen-hydr ocodone 325 mg-5 mg oral tablet) TAKE 1 TABLET BY MOUTH THREE TIMES DAILY NEEDED for spondylosis without myelopathy. albuterol (Albuterol (Eqv-ProAir HFA) 90 mcg/inh inhalation aerosol) 2 puff(s). diclofenac DULoxetine (DULoxetine 30 mg oral delayed release capsule) TAKE 1 CAPSULE BY MOUTH ONCE DAILY. DULoxetine (DULoxetine 60 mg oral delayed release capsule) 1 cap(s) Oral every day. (do not crush or chew). Durable Medical Equipment for Prescription (baclofen 10 mg tablet) TAKE 1 TABLET BY MOUTH THREE TIMES DAILY NEEDED. fexofenadine (Leigh 24 Hour Allergy oral tablet) 1 tab(s) Oral every day. Refills: 5. lisinopril (lisinopril 20 mg oral tablet) 1 tab(s) Oral every day. Refills: 0. omeprazole (omeprazole 20 mg oral delayed release capsul (more content not included)... [facility] XR Hand Complete Lefton 11 XR Hand Complete Left HISTORY: Laceration. Puncture wound. Hand pain. COMPARISON: None available TECHNIQUE: AP, lateral, and oblique views of the hand FINDINGS: No acute fracture or dislocation. Joint spaces are maintained. Soft tissues are within normal limits. No radiopaque foreign body. IMPRESSION: No acute osseous abnormality. Final Signed (Electronic Signature): Stalin Eric DO 07/26/23 4:50 pm Technologist: Joseph STEPHENS [facility] Outside Recordson 06-07-2023 Outside Records [id number]#1.00OTGTIFF [facility] Patient Handouton 05-12-2023 Patient Handout [id number] 45#1.00OTGTIFF [facility] Patient Handout [id number] 25[facility] 01-14-2022 LUMBAR SPINE 6 OR MORE [facility] Department of Radiology [address] [place] [id number] Patient Name: DION ANDRES : 1975 Sex: M Age: Race: White Pt. Location: Patient Status: D Ordered Date: 01/14/2022 12:15:00 PM Completed Date: 01/14/2022 12:37 PM Requesting Provider: JACKELINE RANDLE Attending Provider: JACKELINE RANDLE Report Copy To: MILAN NAILS Signs & Symptoms: M47.896 Other spondylosis, lumbar region I10 History: Reading Comments: , ap, lat, flex, ex, obliques, r/o instability or pars defect , Views (X-RAY, LUMBAR SPINE): AP, Lateral, L5-S1 Spot, Obliques, Flexion, Extension , ap, lat, flex, ex, obliques, r/o instability or pars defect , Views (X-RAY, LUMBAR SPINE): AP, Lateral, L5-S1 Spot, Obliques, Flexion, Extension , , , Ordering Provider - A JER MSN SALES CONTRACTS ANALYST , Exam: LUMBAR SPINE 6 OR MORE VWS LUMBAR SPINE 6 OR MORE VWS 01/14/2022 12:37 PM CLINICAL INDICATIONS: M47.896 Other spondylosis, lumbar region I10 TECHNOLOGIST COMMENTS: low back pain x 4 months QUESTION FOR RADIOLOGIST: , ap, lat, flex, ex, obliques, r/o instability or pars defect , Views (X-RAY, LUMBAR SPINE): AP, Lateral, L5-S1 Spot, Obliques, Flexion, Extension , ap, lat, flex, ex, ...More In Sending System PROTOCOL: AP,Lateral, L5-S1 spot, Flexion, Extension and Bilateral Oblique views were obtained. COMPARISON: None. FINDINGS: 7 views of the lumbar spine were obtained. No focal vertebral deformity is evident. The some loss of intervertebral disc height, greatest at L4-L5. Mild facet degenerative changes are present. Like images demonstrate no posterior element defect. There is no abnormal movement with flexion and extension IMPRESSION: Lumbar degenerative changes with no focal abnormality evident radiographically. Electronically signed: Rashad Adler. Transcribed by: [id number], User Resident: Electronically Signed by: RASHAD ADLER @ 01/15/2022 11:40 AM Normal [facility] Comment on above: Order Comment: , ap, lat, flex, ex, obliques, r/o instability or pars defect , Views (X-RAY, LUMBAR SPINE): AP, Lateral, L5-S1 Spot, Obliques, Flexion, Extension , ap, lat, flex, ex, obliques, r/o instability or pars defect , Views (X-RAY, LUMBAR SPINE): AP, Lateral, L5-S1 Spot, Obliques, Flexion, Extension , , , Ordering Provider - Sherice LOPEZ SALES CONTRACTS ANALYST , Vital Signs Date Time Vital Sign Value Performing Clinician Facility 09-23-2023 10:05-0500 Body height Abbey Robin Other [facility] Other 09-23-2023 10:05-0500 Body mass index (BMI) [Ratio] 44.21 kg/m2 Abbey Nietomond Other [facility] Other 09-23-2023 10:05-0500 Body temperature 98.6 [degF] Abbey Nietomond Other [facility] Other 09-23-2023 10:05-0500 Body weight 135.81 kg Abbey Nietomond Other [facility] Other 09-23-2023 10:05-0500 Diastolic blood pressure 82 mm[Hg] Abbey Nietomond Other [facility] Other 09-23-2023 10:05-0500 Respiratory rate 18 /min Abbey Nietomond Other [facility] Other 09-23-2023 10:05-0500 SaO2% (BldA) [Mass fraction] 95 % Abbey Nietomond Other [facility] Other 09-23-2023 10:05-0500 Systolic blood pressure 152 mm[Hg] Abbey Robin Other [facility] Other 04-15-2023 10:30-0400 Body height Marisol Zelaya Other [facility] Other 04-15-2023 10:30-0400 Body mass index (BMI) [Ratio] 45.33 kg/m2 Marisol Zelaya Other [facility] Other 04-15-2023 10:30-0400 Body temperature 97.6 [degF] Marisol Zelaya Other [facility] Other 04-15-2023 10:30-0400 Body weight 139.26 kg Marisol Zelaya Other [facility] Other 04-15-2023 10:30-0400 Diastolic blood pressure 80 mm[Hg] Marisol Zelaya Other [facility] Other 04-15-2023 10:30-0400 Respiratory rate 18 /min Marisol Zelaya Other [facility] Other 04-15-2023 10:30-0400 SaO2% (BldA) [Mass fraction] 98 % Marisol Zelaya Other [facility] Other 04-15-2023 10:30-0400 Systolic blood pressure 125 mm[Hg] Marisol Zelaya Other [facility] Other Encounters Encounter Date Encounter Type Care Provider Facility Start: 11-24-2023 End: 11-25-2023 ambulatory MILAN Medina SHARON Facility:[facility]by Start: 09-23-2023 End: 09-23-2023 ambulatory Abbey Robin Other [facility] Other Start: 09-23-2023 Office outpatient visit 15 minutes Abbey Robin [facility] Start: 08-24-2023 End: 08-25-2023 ambulatory MILAN P HOUSE Facility:[facility] Start: 08-24-2023 End: 08-25-2023 ambulatory Kiel Polk MD Facility:[facility] Start: 08-15-2023 End: 08-16-2023 ambulatory Kiel Polk MD Facility:[facility] Start: 07-26-2023 End: 07-26-2023 ambulatory Rashad BRADSHAW Facility:[facility] Start: 05-24-2023 End: 05-25-2023 ambulatory MILAN P HOUSE Facility:[facility] Start: 05-10-2023 End: 05-11-2023 ambulatory MILAN P HOUSE Facility:[facility] Start: 04-15-2023 End: 04-15-2023 ambulatory Marisol Zelaya Other [facility] Other Start: 04-15-2023 Office outpatient ne w 20 minutes Marisol Zelaya [facility] Start: 02-15-2023 End: 02-16-2023 ambulatory NARENDRANATH LAKSHMIPATHY . Facility: Start: 02-01-2023 End: 02-01-2023 ambulatory NARENDRANATH LAKSHMIPATHY . Facility:[facility] Start: 01-06-2023 End: 01-07-2023 ambulatory KALI CONWAY . Facility:[facility] Start: 10-06-2022 End: 10-07-[address] LUCY GIL . Facility:[facility] Start: 09-02-[address] LUCY GIL . Faci lity:[facility] Start: 08-26-2022 End: 08-27-[address] LUCY GIL . Facility:[facility] Start: 08-18-[address] LUCY GIL . Faci lity:[facility] Start: 08-03-2022 End: 08-03-[address] LUCY GIL . Facility:[facility] Start: 07-22-2022 End: 07-23-2022 ambulatory LUCY Maurice JEFFERY . Facility:[facility] Start: 04-22-2022 End: 04-23-2022 ambulatory LUCY Maurice JEFFERY . Facility:[facility] Start: 04-15-2022 End: 04-16-[address] LUCY GIL . Facility:[facility] Start: 03-16-2022 End: 03-16-[address] LUCY GIL . Facility:[facility] Start: 03-09-2018 Ambulatory [place] [facility] Facility :[id number] Start: 03-08-2018 Ambulatory [place] [facility] Facility :[id number] Payers Date Payer Category Payer Medicare [id number] 2.1 [id number] 1974 Unknown [id number] 2.16.84 [id number] 1974 Unknown [id number] 2.16.84 0.1.052175.3.579.2.593 1974 Unknown [id number] 2.16.84 0.1.834075.3.579.2.593 1974 Unknown [id number] 2.16.84 0.1.458851.3.579.2.593 1974 Unknown [id number] 2.16.84 0.1.569090.3.579.2.593 1974 Unknown [id number] 2.16.84 0.1.065017.3.579.2.593 1974 Unknown [id number] 2.16.84 0.1.551396.3.579.2.593 1974 Unknown [id number] 2.16.84 0.1.022625.3.579.2.593 1974 Unknown [id number] 2.16.84 0.1.391322.3.579.2.593 1974 Unknown [id number] 2.16.84 0.1.060151.3.579.2.593 1974 Unknown [id number] 2.16.84 0.1.621044.3.579.2.593 1974 Unknown [id number] 2.16.84 0.1.520431.3.579.2.593 1974 Unknown [id number] 2.16.84 0.1.902702.3.579.2.593 1974 Unknown [id number] 2.16.8 40.1.708269.3.579.2.718 1974 Unknown [id number] 2.16.8 40.1.748827.3.579.2.718 1974 Unknown [id number] 2.16.8 40.1.995863.3.579.2.718 1974 Unknown [id number] 2.16.8 40.1.122677.3.579.2.71 1974 Unknown [id number] 2.16.8 40.1.716744.3.579.2.718 1974 Unknown [id number] 2.16.8 40.1.482386.3.579.2.718 1960 Medicare [id number] Unknown [id number] Social History Date Type Detail Facility Unknown if ever smoked [facility] Other Sex Assigned At Sex Assigned At [facility] Other Clinical Notes 04-15-2022 to 11-07-2023 Note Date & Type Note Facility 11-07-2023 Note Entered by DYLAN NAILS DO on November 07, 2023 07:53:45 EST From: MILAN NAILS DO To: [id number] Sent: 11/07/2023 07:53:45 EST Subject: Medication Management Submitted: Complete:lisinopril (lisinopril 20 mg oral tablet) Signed by MILAN NAILS DO 11/07/2023 07:53:00 EST Submitted: Complete:fexofenadine (Leigh 24 Hour Allergy oral tablet) Signed by MILAN NAILS DO 11/07/2023 07:53:00 EST Approved with modifications: fexofenadine (fexofenadine 180 mg tablet) TAKE 1 TABLET BY MOUTH DAILY Qty: 30 tab(s) Days Supply: 30 Refills: 5 Substitutions Allowed Route To Pharmacy - [facility] Approved with modifications: lisinopril (lisinopril 20 mg tablet) TAKE 1 TABLET BY MOUTH DAILY Qty: 90 tab(s) Days Supply: 90 Refills: 5 Substitutions Allowed Route To Pharmacy - [facility] From: [facility] To: MILAN NAILS DO Sent: November 06, 2023 9:32:22 AM DISHCLOTH FOLDER Subject: Medication Management Due: November 07, 2023 12:07:40 AM DISHCLOTH FOLDER On Hold Pending Signature Drug: fexofenadine (Leigh 24 Hour Allergy oral tablet), 1 tab(s) PO Daily Quantity: 30 tab(s) Days Supply: 0 Refills: 4 Substitutions Allowed Notes from Pharmacy: Dispensed Drug: fexofenadine (fexofenadine 180 mg oral tablet), TAKE 1 TABLET BY MOUTH DAILY Quantity: 30 tab(s) Days Supply: 30 Refills: 5 Substitutions Allowed Notes from Pharmacy: On Hold Pending Signature Drug: lisinopril (lisinopril 20 mg oral tablet), TAKE 1 TABLET BY MOUTH DAILY Quantity: 90 tab(s) Days Supply: 90 Refills: 0 Substitutions Allowed Notes from Pharmacy: Dispensed Drug: lisinopril (lisinopril 20 mg oral tablet), TAKE 1 TABLET BY MOUTH DAILY Quantity: 90 tab(s) Days Supply: 90 Refills: 5 Substitutions Allowed Notes from Pharmacy: [facility] 09-23-2023 Evaluation note Encounter Date Diagnosis Assessment Notes Sep, Acute sinusitis, recurrence not specified, unspecified location (ICD-10 - J01.90) Drink plenty fluids, get plenty of rest. Take the amoxicillin with clavulanate and prednisone as prescribed until gone for your sinus infection. Use the fluticasone as prescribed until the symptoms of your sinus infection are improved. Use the benzonatate capsules as prescribed as needed for cough. Take Tylenol or Motrin as needed for aches pains or fevers. Follow-up with your family physician if no improvement in 2 to 3 days Sep, Bronchitis (ICD-10 - J40) [facility] Other 11-07-2023 NotePatient Education Materials Follows: Sutured Wound Care Sutures are stitches that can be used to close wounds. Sutures come in different materials. They may break down as your wound heals (absorbable), or they may need to be removed (nonabsorbable). Taking care of your wound properly can help to prevent pain and infection. It can also help your wound heal more quickly. Follow instructions from your health care provider about how to care for your sutured wound. Supplies needed: ? Soap and water. ? A clean, dry towel. ? Wound cleanser or saline, if needed. ? A clean gauze or bandage (dressing), if needed. ? Antibiotic ointment, if told by your health care provider. How to care for your sutured wound ? Keep the wound completely dry for the first 24 hours, or for as long as told by your health care provider. After 24?48 hours, you may shower or bathe as told by your health care provider. Do not soak or submerge the wound in water until the sutures have been removed. ? After the first 24 hours, clean the wound once a day, or as often as told by your health care provider. Use the following steps: ? Wash and rinse the wound as told by your health care provider. ? Pat the wound dry with a clean towel. Do not rub the wound. ? After cleaning the wound, apply a thin layer of antibiotic ointment as told by your health care provider. This will prevent infection and keep the dressing from sticking to the wound. ? Follow instructions from your health care provider about how to change your dressing. Make sure you: ? Wash your hands with soap and water for at least 20 seconds before and after you change your dressing. If soap and water are not available, use hand fur examiner. ? Change your dressing at least once a day, or as often as told by your health care provider. If your dressing gets wet or dirty, change it. ? Leave sutures and other skin closures, such as adhesive strips or skin glue, in place. These skinclosures may need to stay in place for 2 weeks or longer. If adhesive strip edges start to loosen and curl up, you may trim the loose edges. Do not remove adhesive strips completely unless your health care provider tells you to do that. ? Check your wound every day for signs of infection. Watch for: ? Redness, swelling, or pain. ? Fluid or blood. ? New warmth, a rash, or hardness at the wound site. ? Pus or a bad smell. ? Have the sutures removed as told by your health care provider. Follow these instructions at home: Medicines ? Take or apply vqnw-orl-jqmezsp and prescription medicines only as told by your health care provider. ? If you were prescribed an antibiotic medicine or ointment, take or apply it as told by your health care provider. Do not stop using the antibiotic even if your condition improves. General instructions ? To help reduce scarring after your wound heals, cover your wound with clothing or apply sunscreenof at least 30 SPF whenever you are outside. ? Do not scratch or pick at your wound. ? Avoid stretching your wound. ? Raise (elevate) the injured area above the level of your heart while you are sitting or lying down, if possible. ? Eat a diet that includes protein, vitamin A, and vitamin C to help the wound heal. ? Drink enough fluid to keep your urine pale yellow. ? Keep all follow-up visits. This is important. Contact a health care provider if: ? You received a tetanus shot and you have swelling, severe pain, redness, or bleeding at the injection site. ? Your wound breaks open or you notice something coming out if it, such as wood or glass. ? You have any of these signs of infection: ? Redness, swelling, or pain around your wound. ? Fluid or blood coming from your wound. ? New warmth, a rash, or hardness around the wound. ? A fever. ? The skin near your wound changes color. ? You have pain that does not get better with medicine. ? You develop numbness around the wound. Get help right away if: ? You develop severe swelling or more pain around your wound. ? You have pus or a bad smell coming from your wound. ? You develop painful lumps near your wound or anywhere on your body. ? You have a red streak spreading out from your wound. ? The wound is on your hand or foot and: ? Your fingers or toes look pale or bluish. ? You cannot properly move a finger or toe. ? You have numbness that is spreading down your hand, foot, fingers, or toes. Summary ? Sutures are stitches that can be used to close wounds. ? Taking care of your wound properly can help to prevent pain and infection. ? Keep the wound completely dry for the first 24 hours, or for as long as told by your health care provider. After 24?48 hours, you may shower or bathe as told by your health care provider. ? To help with healing, eat foods that are rich in protein, vitamin A, and vitamin C. This information is not intended to replace advice given to you by your health care provider. (morecontent not included)...[id number] Note Entered by MILAN NALIS DO on June 28, 2023 14:22:45 EDT From: MILAN NAILS DO To: [facility] Sent: 06/28/2023 14:22:45 EDT Subject: Medication Management Submitted: Complete:lisinopril (lisinopril 20 mg oral tablet) Signed by MILAN NAILS DO 06/28/2023 14:22:00 EDT Approved lisinopril (lisinopril 20 mg tablet) TAKE 1 TABLET BY MOUTH DAILY Qty: 90 tab(s) Days Supply: 90 Refills: 0 Substitutions Allowed Route To Pharmacy - [facility] From: [facility] To: MILAN NAILS DO Sent: June 28, 2023 12:16:14 PM CDT Subject: Medication Management Due: June 29, 2023 12:10:01 AM CDT On Hold Pending Signature Drug: lisinopril (lisinopril 20 mg oral tablet), 1 tab(s) PO Daily Quantity: 90 tab(s) Days Supply: 0 Refills: 0 Substitutions Allowed Notes from Pharmacy: Dispensed Drug: lisinopril (lisinopril 20 mg oral tablet), TAKE 1 TABLET BY MOUTH DAILY Quantity: 90 tab(s) Days Supply: 90 Refills: 0 Substitutions Allowed [id number] Note Entered by MILAN NAILS DO on May 24, 2023 07:28:08 EDT From: MILAN NAILS DO To: [facility] Sent: 05/24/2023 07:28:08 EDT Subject: Medication Management Documented Complete:lisinopril (lisinopril 20 mg oral tablet) Signed by MILAN NAILS DO 05/24/2023 07:28:00 EDT Approved lisinopril (lisinopril 20 mg tablet) TAKE 1 TABLET BY MOUTH EVERY DAY Qty: 7 tab(s) Days Supply: 7 Refills: 0 Substitutions Allowed Route To Pharmacy - [facility] Patient matched by MILAN NAILS DO on 05/24/2023 07:27:02 EDT From: [facility] To: MILAN NAILS DO Sent: May 21, 2023 2:16:50 PM CDT Subject: Medication Management Due: May 22, 2023 12:27:43 AM CDT On Hold Pending Signature Drug: lisinopril (lisinopril 20 mg oral tablet), TAKE 1 TABLET BY MOUTH EVERY DAY Quantity: 7 EA Days Supply: 7 Refills: 0 Substitutions Allowed Notes from Pharmacy: Dispensed Drug: lisinopril (lisinopril 20 mg oral tablet), TAKE 1 TABLET BY MOUTH EVERY DAY Quantity: 7 tab(s) Days Supply: 7 Refills: 0 Substitutions Allowed [id number] Evaluation note* Encounter Date Diagnosis Assessment Notes Treatment Notes Treatment Clinical Notes Mar, Contact dermatitis due to poison jakob (ICD-10 - L23.7) Discussed with patient rash is consistent with contact dermatitis. Discussed typical duration of contact dermatitis 1 to 3 weeks. Advised steroid will help with inflammation and itching but rash will take time to completely resolve. We will treat with prednisone taper. Finish entire course. May continue topical calamine or similar. Avoid scratching or picking at areas to avoid secondary infection. Keep areas clean with soap and water. Follow-up with family doctor if not gradually improving over the next 10 days, sooner if significantly worsening or changing appearance. Patient verbalized understanding of treatment plan. Patient is advised to stop vigorously scrubbing area on left forearm as it is causing further excoriation and irritation. Reassured poison jakob rash is not contagious from itself or drainage. [facility] Other 05-30-2023 NoteCONSULTATION CONSULTATION DATE: 02/15/2023 TO: Milan Nails M.D. CHIEF COMPLAINT: Includes left buttock pain, right hip pain and right buttock pain. HISTORY: Patient reports the left buttock pain is sharp in nature, increases with sitting primarily, and reports the right buttock pain is burning in nature, sensitive to light touch and increased with activities such as standing, walking and performing transitioning maneuvers. The patient feels most comfortable in the semi-recumbent position. Denies any change in bowel and bladder habits or new sensorimotor changes in the lower extremities. MEDICATION: Current medication includes [place] 5 mg t.i.d. p.r.n. Patient reports it does improve his pain symptoms, quality of life and sleep pattern. He denies any side effects. Similar response is noted for his use of tizanidine. EXAMINATION: Notable for patient having pain with left hip flexion and internal rotation and point tenderness overlying the area of the left piriformis muscle. Patient also has dysesthesia and hyperesthesia overlying the distribution of the lateral cutaneous branch of the iliohypogastric nerve on the right side, and lastly myofascial spasm of the right gluteus medius. 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 RECOMMENDATIONS: I have recommended proceeding with an ablation of the right lateral cutaneous branch of the iliohypogastric nerve, since the patient had a dramatic reduction of pain symptoms after a diagnostic procedure of the same, using 2 mL of 0.25% Marcaine. Patient reports having 80% reduction of pain symptoms in the immediate post procedural period, lasting for at least two hours, with the recurrence of pain back to his baseline. As part of providing excellent, safe, comprehensive care, the following was completed at our patient's visit: 1. A medication reconciliation and review to ensure accurate knowledge of current/active medications, including asking our patients to inform us about any ukxn-dyw-aymxqwf medications or herbal remedies/nutritional supplements/alternative remedies. 2. A review to specifically ensure our patients have had annual screening for: elevated body mass index (BMI, see intake chart for exact total), tobacco use, screening for depression, and screening for unhealthy alcohol use. When screening is concerning, patients are provided with education and the specific recommendation to discuss the concerning health issue and treatment options with their primary care provider.[id number] Note CONSULTATION CONSULTATION DATE: 01/06/2023 TO: Dr. Nails CHIEF COMPLAINT: Includes severe bilateral buttock pain, hip pain, as well as left lower extremity. HISTORY: He rates the pain above as being 5-7/10 pain, sharp in character. It seems to be increased with activities such as standing, walking and performing transitioning maneuvers. Also reports the area being quite sensitive to even light touch and he describes a burning sensation over his skin in his buttock area bilaterally, worse on the right than left side. Denies any change in bowel and bladder habits or new sensorimotor changes in his lower extremities. He feels most comfortable in the semi-recumbent position. EXAM: Notable for patient having no clinical radiculopathy or myelopathy involving the lower extremities. Patient does have dysesthesia and hyperesthesia overlying the distribution of the lateral cutaneous branch of the iliohypogastric nerve bilaterally, most significantly on the right than the left side. Patient also had hypoesthesia along the left L5 dermatome, depressed left Achilles reflex. Straight leg raise was equivocally positive, approximately 45 degrees. His strength is well preserved in his left lower extremity otherwise. 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 He did not appear to have clear cut radicular signs on examination. RECOMMENDATIONS: I have recommended he consider proceeding with a diagnostic bilateral lateral cutaneous branch of the iliohypogastric nerve injection under fluoroscopy guidance, and an EMG nerve conduction velocity study of his left lower extremity. We did discuss possible neurosurgical consultation; however, he reports he has had several, the last one being approximately one year ago. We will obtain those consultative reports for our records. I have gone over the details of the procedure with the patient. All his questions were answered. He agrees to proceed with the outlined plan. As part of providing excellent, safe, comprehensive care, the following was completed at our patient's visit: 1. A medication reconciliation and review to ensure accurate knowledge of current/active medications, including asking our patients to inform us about any frdo-vse-ngmtmtu medications or herbal remedies/nutritional supplements/alternative remedies. 2. A review to specifically ensure our patients have had annual screening for: elevated body mass index (BMI, see intake chart for exact total), tobacco use, screening for depression, and screening for unhealthy alcohol use. When screening is concerning, patients are provided with education and the specific recommendation to discuss the concerning health issue and treatment options with their primary care provider.[facility] [id number] Note CONSULTATION PROCEDURE DATE: 10/06/2022 PREOPERATIVE DIAGNOSIS: Bilateral lumbar erector spinae muscle spasms. POSTOPERATIVE DIAGNOSIS: Bilateral lumbar erector spinae muscle spasms. PROCEDURE: Bilateral lumbar trigger point injections. Subsequent to obtaining informed consent, the patient was placed in the upright standing forward flexion position. Alcohol prep was used to sterilize the site. A 25 gauge needle with 0.125% Marcaine and 40 mg of Kenalog was used to inject in a total of two sites. The needle was placed to rest inside each trigger zone. Negative heme. Medication was injected in a slow fan-like pattern. Patient tolerated the procedure well. She will be followed up in the office.[facility] [id number] NoteCONSULTATION CONSULTATION DATE: 08/26/2022 HISTORY OF PRESENT ILLNESS: This is a 47-year-old gentleman returning to the clinic status post lumbar epidural steroid injection completed on 08/03/2022. Patient states he received about 5% relief. The patient does have significant pathology in his lower back with chronic radicular pain. He is also under the care of [facility] and they currently have him on Lyrica 200 mg t.i.d. and have recently changed his muscle relaxer. Our clinic prescribes his [place] 5/325 b.i.d. and diclofenac 75 mg b.i.d. Patient does ambulate with a cane, which is not new for him. The patient is concerned as he feels he has had a weight gain recently. The patient feels he is having some spasming in his lower back as well, as he describes his pain as a deep, dull ache, 7/10. He denies any recent injuries or falls. Patient's REVIEW OF SYSTEMS / PAST MEDICAL HISTORY / ALLERGIES and IMAGES have been reviewed and noted on the chart. PHYSICAL EXAM: VITAL SIGNS: Blood pressure 155/80, heart rate is 79. Temperature is 97.5. He is 5'9 , weighs 312 pounds. GENERAL APPEARANCE: Pleasant, appropriate, no acute distress. Uncomfortable sitting in the chair. FOCUSED EXAM - BACK: Range of motion is functional in lateral rotation and flexion/extension. Paravertebral muscles are taut with trigger points identified bilateral lower erector spinae areas. Compression in those areas reproduces the patient's pain. MUSCULOSKELETAL: Motor is 4/5 bilaterally, left weaker than right. Muscle atrophy noted to bilateral quadriceps. NEUROLOGICAL: Patient is cognitively intact. Stocking distribution hypoesthesia noted along bilateral lower extremities, along the L5-S1 distribution, left greater than right. Bilateral patellar reflexes are blunted. DIAGNOSIS: Lumbar radiculitis, lumbar spinal canal stenosis, degenerative disc disease and lumbar paravertebral spasms. PLAN: We will refill his diclofenac 75 mg b.i.d. He will receive bilateral lumbar trigger point injections, which we will need to authorize. He will be brought back to the clinic upon authorization of those injections. He is to continue with heat and stretches as he normally does. All questions were answered today.[id number] NoteCONSULTATION CONSULTATION DATE: 07/22/2022 HISTORY OF PRESENT ILLNESS: This is a 46-year-old gentleman returning to the clinic for a three month follow up for his chronic lower back pain and lumbar radiculopathy. The patient reports pain 6-03/28; describes it as a dull ache to his lower back. He has bilateral lower extremity radicular pain, left greater than right. Since his last office visit on 04/22/2022, the patient has had three falls stating his left leg would give out. He experiences a sharp, shooting pain prior to it giving out in his lower back and posterior aspect of his left lower leg. The patient does ambulate with a cane. He has seen Neurosurgery at [facility] in the past, which they feel, at this time, he is not a surgical candidate and to be managed by Pain Management. He current does see Dr. Galeas at [facility] as well. Activities that aggravate his pain are pulling, sitting, walking, lying down and bending. He will alternate heat and ice which he feels does not make a significant difference. Medications include trazodone 50 mg q.h.s., tizanidine 4 mg b.i.d., Lyrica 50 mg t.i.d., diclofenac 75 mg b.i.d. and [place] 5/325 b.i.d. He does attend pool therapy at the [facility] 2-3 times a week, which he feels is very helpful. Patient's REVIEW OF SYSTEMS / PAST MEDICAL HISTORY / ALLERGIES and IMAGES have been reviewed and they are noted on the chart. PHYSICAL EXAM: VITAL SIGNS: Blood pressure 155/97. He is 5'9 and weighs 312 pounds GENERAL IMPRESSION: Pleasant, appropriate, no acute distress. FOCUSED EXAM - BACK: Range of motion is functional in lateral rotation and flexion/extension. Paravertebral muscles are non-spasmodic. No reproduction of spinal axial pain along the lower lumbar facet indicative of successful prior RFA. Noah's point is non-tender and non-radiating. FABERs and compression test negative. MUSCULOSKELETAL: Muscle atrophy noted bilateral lower extremities to anterior tibialis and left sided extensor digitorum longus. Patient does walk with a favor to his left side with a slow, steady, antalgic gait. NEUROLOGICAL: Diffuse polyneuropathy bilateral lower extremities with +1 bilateral reflexes. DIAGNOSIS: Lumbar radiculopathy, lumbar degenerative disc disease, lumbar spinal canal stenosis. PLAN: We will revisit and authorize for a lumbar epidural steroid injection. No changes in his medications today. I did recommend an inversion table and this was discussed with the patient. The patient does agree with this epidural and he will be followed up in the clinic thereafter.[facility] 04-22-2022 NoteCONSULTATION PROCEDURE DATE: 04/22/2022 PRE AND POSTOPERATIVE DIAGNOSIS: Bilateral lumbar paravertebral spasms. PROCEDURE: Bilateral lumbar trigger point injections. Subsequent to obtaining informed consent, the patient was placed in the upright standard forward flexion position. Alcohol prep was used to sterilize the site. 25-gauge needle with 0.125% Marcaine and 40 mg of Kenalog was divided into two locations. The needle was placed to rest inside the trigger point, negative heme. Medication was injected in the fan-like pattern. The patient tolerated the procedure well with no overt complications. He will be followed up in the office.[facility] [id number] NoteCONSULTATION CONSULTATION DATE: 04/15/2022 This is a 46-year-old male returning to the clinic status post #1 bilateral MBB of L2, L3 and L4, L5. The patient reportedly received a 25% relief. Today his pain is 6 out of 10, described as pressure, burn and tightness. He has recently joined the local rec center with his daughter and plans on going to the pool. Activities that aggravate his pain are standing, stairs, physical activity, walking and bending. Current medications include tizanidine 4 mg b.i. d. duloxetine 30 mg q. day, diclofenac 75 mg b.i.d., Lyrica 50 mg b.i.d. and [place] 5/325 b.i.d. He is complaining of trouble staying asleep at night and his sleep is not good. He does wear a CPAP mask for sleep apnea. He does have bilateral neuropathic pain to his legs, which is chronic. REVIEW OF SYSTEMS, PAST MEDICAL HISTORY, ALLERGIES AND IMAGES: Have been reviewed and noted in the chart. PHYSICAL EXAM: VITAL SIGNS: Blood pressure 150/87, heart rate is 96, temperature is 97.8. Height is 5'9 , weighs 136.7 kg. GENERAL APPEARANCE: Pleasant, appropriate, no acute distress, but presents uncomfortable. FOCUSED EXAM: BACK: Range of motion is guarded in flexion and extension. No reproduction of spinoaxial pain upon facet compression to the lumbar area, which has been indicative of successful RFA. Paravertebral muscles are spasmodic bilaterally with trigger points identified. Positive jump response. Noah's point is nontender bilaterally. MUSCULOSKELETAL: Motor is intact, 3-4 bilateral. The patient does ambulate with a cane. NEUROLOGICAL: Diffuse neuropathy to bilateral lower extremities. Bilateral patellar reflexes are blunted. DIAGNOSIS: Bilateral paravertebral spasms, lumbar degenerative disk disease, lumbar spondylosis. PLAN: To aid in sleeping, he will be started on Trazadone 50 mg q.h.s. I did discuss benefits of an inversion table as well as dangling off the edge of the deep end of the pool. We will preauthorize with his insurance bilateral lumbar trigger point injections. He will get a U-tox in the clinic today as well. The patient agrees with the plan of care and he will be called once insurance approval is gained for his trigger point injections.[facility] general Narrative - Reported* Type Description Date Medical History HTN (hypertension) Medical History GERD (gastroesophageal reflux di sease) Medical History Chronic pain Medical History Anxiety Surgical History tonsillectomy and adenoidectomy Surgical History ablasion [employer] Other History general Narrative - Reported* Type Description Date Medical History HTN (hypertension) Medical History GERD (gastroesophageal reflux di sease) Medical History Chronic pain Medical History Anxiety Surgical History tonsillectomy and adenoidectomy Surgical History ablasion Surgical History nerve block Surgical History epidural [employer] Other Summary Purpose Family History No Family History Records FoundNo Family History Records FoundNo Family History Records FoundNo Family History Records Found Advance Directives No Advanced Directives Records FoundNo Advanced Directives Records FoundNo Advanced Directives Records FoundNo Advanced Directives Records Found Additional Source Comments (unrecognized sect ion and content) No Status Records FoundNo Status Records FoundNo Status Records FoundNo Status Records Found INFORMATION SOURCE (unrecogn ized section and content) DATE CREATED AUTHOR 03/09/2018 [facility] DATE CREATED AUTHOR AUTHOR'S ORGANIZ ATION 01/19/2022 [facility] DATE CREATED AUTHOR AUTHOR'S ORGANIZ ATION 02/25/2023 [facility] DATE CREATED AUTHOR AUTHOR'S ORGANIZ ATION 11/25/2023 [facility] REASON FOR VISIT (unrecogniz ed section and content) Poison jakob on armsCOUGH, CON GESTION FOR RECORDS PERTAINING TO PATIENTS WHO ARE OR HAVE BEEN ENROLLED IN A CHEMICAL DEPENDENCY/SUBSTANCEABUSE PROGRAM, SOME INFORMATION MAY BE OMITTED. This clinical summary was aggregated from multiple sources. Caution should be exercised in using it in the provision of clinical care. This summary normalizes information from multiple sources, and as a consequence, information in this document may materially change the coding, format and clinical context of patient data. In addition, data may be omitted in some cases. CLINICAL DECISIONS SHOULD BE BASED ON THE PRIMARY CLINICAL RECORDS. [facility] provides no warranty or guarantee of the accuracy or completeness of information in this document.
--- NOTE | 2023-11-30 08:16 | P.CN_ITS ---
Consult Note: HPI Data of Consult Patient: known to practice within the last 3 years Requesting Physician: Razia Contreras NP Primary Care Provider: GERMANIA NAILS Consult Narrative Reason for consult: f/u Narrative: Riccardo Hale a pleasant 48 year old male presents for evaluation and management of chronic back pain with radiculopathy. Today rating pain 6/10 bilateral low back radiating to bilateral thighs and lower leg, burning tingling sharp and intermittent numbness. Pain increases to 10/10. Patients symptoms worse with sitting or standing too long, leaning forward decreases pain. Patient reports increase in migraines and is following with PCP who is adjusting medications. Continues to find benefit from medication regimen without side effects cc:: CC: Razia Contreras NP Review of Systems ROS Status of ROS 10 or more systems reviewed and unremark able except as noted in history and below Musculoskeletal Reports: back pain and muscle weakness PFSH PFSH Medical History Osteoarthritis ?M19.90 - Unspecified osteoarthritis, unspecified site (ICD-10) Numbness and tingling ?R20.0 - Anesthesia of skin (ICD-10) ?R20.2 - Paresthesia of skin (ICD-10) Obesity ?E66.9 - Obesity, unspecified (ICD-10) Acid reflux ?K21.9 - Gastro-esophageal reflux disease without esophagitis (ICD-10) Former smoker ?Z87.891 - Personal history of nicotine dependence (ICD-10) Sleep apnea ?G47.30 - Sleep apnea, unspecified (ICD-10) High cholesterol ?E78.00 - Pure hypercholesterolemia, unspecified (ICD-10) Hypertension ?I10 - Essential (primary) hypertension (ICD-10) Surgical History History of tonsillectomy and adenoidectomy ?Z90.89 - Acquired absence of other organs (ICD-10) Meds Home Medications and Allergies Home Medications Medication Instructions Recorded Confirmed Type albuterol sulfate 90 mcg/actuation inhalation Q4H PRN shortness of 03/10/23 History aerosol inhaler breath or wheezing diclofenac sodium 50 mg 50 mg PO BID 03/10/23 08/09/23 History tablet,delayed release duloxetine 30 mg capsule,delayed 30 mg PO QDAY 03/10/23 08/09/23 History release duloxetine 60 mg capsule,delayed 60 mg PO QDAY 03/10/23 08/09/23 History release hydrocodone 5 mg-acetaminophen 325 1 tab PO TID PRN pain 03/10/23 08/09/23 History mg tablet ipratropium 0.5 mg-albuterol 3 mg 3 ml inhalation TID 03/10/23 03/15/23 History (2.5 mg base)/3 mL nebulization soln lisinopril 20 mg tablet 20 mg PO QDAY 03/10/23 08/09/23 History omeprazole 20 mg capsule,delayed 20 mg PO QDAY 03/10/23 08/09/23 History release pregabalin 50 mg capsule (Lyrica) 50 mg PO TID 03/10/23 08/09/23 History tizanidine 4 mg tablet 4 mg PO BID PRN muscle spasticity 03/10/23 08/09/23 History trazodone 50 mg tablet 50 mg PO .hs PRN sleep 03/10/23 08/09/23 History hydrocodone 5 mg-acetaminophen 325 1 tab PO TID PRN pain #75 tabs 05/25/23 08/09/23 Rx mg tablet diclofenac sodium 75 mg 75 mg PO BID PRN pain #60 tabs 07/27/23 08/09/23 Rx tablet,delayed release hydrocodone 5 mg-acetaminophen 325 1 tab PO TID PRN pain #75 tabs 07/27/23 08/09/23 Rx mg tablet hydrocodone 5 mg-acetaminophen 325 1 tab PO TID PRN pain #75 tabs 08/31/23 Rx mg tablet hydrocodone 5 mg-acetaminophen 325 1 tab PO TID PRN pain #75 tabs 10/03/23 Rx mg tablet hydrocodone 5 mg-acetaminophen 325 1 tab PO TID PRN pain #90 tabs 11/14/23 Rx mg tablet Allergies Allergy/AdvReac Type Severity Reaction Status Date / Time No Known Drug Allergies Allergy Verified 03/15/23 08:23 Exam Constitutional Documenting provider has reviewed patient's vital signs: yes Common normals: no apparent distress, oriented x3, healthy appearing, alert and well nourished General appearance: cooperative Orientation/consciousness: Yes awake, Yes oriented to person, Yes oriented to place and Yes oriented to time Other: uses cane HENMT Common normals: normocephalic, hearing grossly normal bilaterally and moist oral mucous membranes Head and scalp: normocephalic Eye Common normals: PERRL Pupil: PERRL Neck & C-Spine Common normals: full ROM General: normal visual inspection Chest Common normals: inspection of chest normal Respiratory Common normals: normal respiratory effort, no retractions and no use of accessory muscles Effort & inspection: able to speak in complete sentences and symmetric chest movement Back & Pelvis Common normals: thoracic and lumbar spine normal to inspection Lumbar spine/lower back: normal to inspection, ROM limited, pain with ROM, paraspinal muscle tenderness, paraspinal muscle spasm, straight leg raise positive right and straight leg raise positive left Other: positive facet loading bilat positive jo-ann bilat Muscle strength 4/5 bilat with intact sensation bilat LE Extremity Common normals: normal to inspection and full ROM Neuro Common normals: oriented x3, CN's II-XII intact bilaterally, moves all extremities, no focal motor deficits, no sensory deficits noted and deep tendon reflexes 2+ bilaterally Sensorium/orientation: alert Gait (neuro): antalgic and assistive device used cane Motor exam: no movement abnormalities noted and strength abnormal Psych Common normals: mental status grossly normal, thought process normal, cooperative, affect normal, speech normal and activity/motor behavior normal Speech: normal speech Thought process: normal thought process Results Additional Findings Additional findings: If on a controlled substance or opioids, I have checked an [place] report on this patient today and there are no aberrancies noted in the prescribing history.?? A drug screen was completed and reviewed within the last year, and if there has not been a drug screen completed we ordered one today to monitor higher risk, state monitored pain medication use. As part of providing excellent, safe, comprehensive care, the following was completed at our patient's visit: 1. A medication reconciliation and review to ensure accurate knowledge of current/active medications, including asking our patients to inform us about any [id number] medications or herbal remedies/nutritional supplements/alternative remedies. 2. A review to specifically ensure our patients have had annual screening for: elevated body mass index (BMI), tobacco use, screening for depression, and screening for unhealthy alcohol use. When screening is concerning, patients are provided with education and the specific recommendation to discuss the concerning health issue and treatment options with their primary care provider. Assessment and Plan Assessment and Plan (1) Chronic prescription opiate use: Assessment and Plan: I have refilled the patient's opioid prescriptions at the above noted dose and schedule.? I feel these medications are improving the patient's quality of life and allow them to tolerate activities of daily living as well as participate in recreational activity.? The patient does not report intolerable side effects. The patient is NOT opioid naive and non-pharmacologic and non-opioid treatment has failed to significantly relieve the patient's pain and improve functionality. The patient has a diagnosis that is related to a somatic or visceral pain etiology. ? ?? I reviewed with the patient the potential risks and side effects with the use of? opioid medications including but not limited to respiratory depression,? sedation, and even . I verified the patient has access to naloxone should? these effects occur. I advised the patient to avoid the use of any other? sedation substances including alcohol, THC, and benzodiazepines while? taking opioid medications due to the risk of compounding side effects and? detrimental outcomes. I reviewed the CR[employer]IST, pain treatment agreement, urine? drug screen, and opioid start talking forms. The patient was advised to let? their family know they had Naloxone in case they would need to administer? the medication.? ?? A drug screen was completed within the last year, and no aberrancies were noted regarding their use of controlled substances. The patient understands they are subject to the terms and conditions of the pain contract that they have signed. ? ?? I have checked an [place]AR[place] report on this patient today and there are no aberrancies noted in the prescribing history.? (2) Lumbar radiculopathy: (3) Lumbar spondylosis: (4) Muscle spasm: (5) Sacroiliac joint pain: Plan update urine drug screen today update lumbar MRI without contrast in the future as patient continues to have moderate to severe low back pain unresponsive to injection therapy, PT/HEP, and medication therapy. declining at this time continue current medications, tolerating well without side effects not interested in SCS at this time f/u 3 months for medication management
== END 2023-11-30 07:56 | disposition home or self-care (01) ==
LOC: PM 07:56
PROVIDERS: PCP Family Medicine; Visit Provider Nurse Practitioner
DX: Z79.891 Long term (current) use of opiate analgesic (principal); M54.16 Radiculopathy, lumbar region; M47.816 Spondylosis without myelopathy or radiculopathy, lumbar region; M62.838 Other muscle spasm; M53.3 Sacrococcygeal disorders, not elsewhere classified
CPT/HCPCS: G0463

== ENCOUNTER 2024-03-01 07:38 | Outpatient (OUT) | payer MEDICARE, SELFPAY ==
--- OUTSIDE RECORDS SUMMARY | 2024-03-01 07:42 | XMS_ITS | CCD ---
Author Organization [facility] CliniSymd Care Team Providers Care Hvac Service Technician Name Role Phone KIRNUS, DALLAS Unavailable Unavailable KIRNUS, DALLAS Unavailable Unavailable CONWAY ., KALI Consulting Unavailable LAKSHMIPATHY ., NARAAYUSHATH Admitting Tiffany vailable HOUSE, DR SOLO Primary Care Unavailable LAKSHMIPATHY ., NARENDOMEGAATH Attending Tiffany vailable LAKSHMIPATHY ., NARENDRANATH Consulting Tiffany vailable LAKSHMIPATHY ., NARENDRANATH Admitting Tiffany vailable LAKSHMIPATHY ., NARENDOMEGAATH Consulting Tiffany vailable HOUSE, DR SOLO Primary Care Unavailable LAKSHMIPATHY ., NARAAYUSHATH Attending Tiffany vailable GIL ., DR LUCY Maurice Consulting Unavailable GIL ., DR LUCY Maurice Attending Unavailable GIL ., DR LUCY Maurice Admitting Unavailable HOY ., DR GONZALEZ Primary Care Unavailable GIL ., DR LUCY Maurice Attending Unavailable GIL ., DR LUCY Maurice Admitting Unavailable HOUSE, DR SOLO Primary Care Unavailable LAKSHMIPATHY ., NARAAYSUHATH Admitting Tiffany vailable HALKER .NATALIYA Consulting Unavailable [...] Admitting Unavailable CONWAY ., KALI Wilson Unavailable TATY ., DR GONZALEZ Primary Care Unavailable GIL ., DR LUCY Maurice Attending Unavailable GIL ., DR LUCY Maurice Admitting Unavailable HOUSE, DR SOLO Primary Care Unavailable CONWAY ., KALI Consulting Unavailable LAKSHMIPATHY ., LENCHOATH Attending Tiffany vailable LAKSHMIPATHY ., LENCHOATH Admitting Tiffany vailable LAKSHMIPATHY ., MESSI Consulting Tiffany vailable HOUSE, DR SOLO Primary Care Unavailable Marisol Zelaya Unavailable Abbey Robin Unavailable HOUSE, MILAN Medina Primary Care Unavailable HOUSE, MILAN Medina Attending Unavailable HOUSE, MILAN Medina Attending Unavailable HOUSE, MILAN Medina Primary Care Unavailable Kiel Polk MD Attending Unavailable HOUSE, MILAN Medina Primary Care Unavailable Kiel Polk MD Attending Unavailable HOUSE, MILAN Medina Primary Care Unavailable HOUSE, MILAN Medina Primary Care Unavailable Kiel Polk MD Attending Unavailable HOUSE, MILAN Medina Primary Care Unavailable HOUSE, MILAN Medina Primary Care Unavailable HOUSE, MILAN P Primary Care Unavailable Rashad Bowman Admitting Unavaila ble Rashad Bowman Attending Unavaila ble HOUSE, MILAN Medina Primary Care Unavailable HOUSE, MILAN Medina Admitting Unavailable HOUSE, MILAN Medina Attending Unavailable HOUSE, MILAN P Primary Care Unavailable HOUSE, MILAN P Primary Care Unavailable Medications Current Medications Medication Drug Class(es) Dates Sig (Normalized) Sig (Original) Acetaminophen / HYDROcodone (2 sources) Opioid Agonist take 1 tablet by mouth every six hours as needed [place] 5-325 MG 1 tablet as needed Orally every 6 hrs Active [id number] actuat albuterol 0.09 mg/actuat metered dose [...] 30 Days Active take 1 capsule by [facility] every twenty-four hours DULoxetine HCl 60 MG [...] Value Interpretation Reference Range Facility Outside Recordson 12-08-2023 Outside Records [id number] [facility] Outside Records [id number]#1.00[facility] Coding Summaryon 08-25-2023 Coding Summary HTMLBase 64 YaepmvegPLw5bMr+PGh lYWQ+BP7PDYYfQ35lrV ZtwL0fB6YVGUjBHzvdG DOQNBmBVeMdtlRpSU7y aXNjZXJu IC8+PN9kVNFgYtnfyUL wg7M8vZO4E89jdj0xJA ciiEG8SFGoQpXcjkczv 3vaiMm2HHibGdjcPkZo YOCseB38SCF5gP39Ov1 1xXTaiRMsi7csvTp5Tj AnOQAaPST1tAqrVRpbl 3TmLNRcL82pzLTdx8L4 IGNvbGxhcHNlOyBlbXB 3xB3tFQbaheywh0zxot ynGuv5xf79cBYpd2X5z RM1W6HntcS3TROuiFZf OohzsBCCxZ5meshmt6u aodovXqYmZQIlFQw0VU q4ZWDctYzhNzGcHH63E MV3XYGvmnEnE4IoGNEa fYefGuA1r7J9Fb7UN6K KLxmbO1LBZDSFXIiadO Q+ZX80vp57M5AbXfreS wi8TEHkNWR5eMP0kE9y XBKqERfhr0W0qFZ1G7R oqhGtxl3zd7cgXYAdJT iuT82acVDib1M2OVDre SE0ZZDlhWtvSkElyW95 Oyc+YGAlySzgo2SxPkw ts9oua3klcKe9ElxgMK WeqrEpkRgnVDY5o4GjW h2yYMJrfJW0cDD0kD3o AnQsWrI2SBoqU196YjK mlJFdVwjiI87aU3NcuT A+IFMvKad1JDCrxDnoW O0lD2YmPUJecxgtkOFj gZmjZJ3wQSNwcjcaLIW bkT1vHRYlP5l8KiIcUe Z7QTulA5NwKIKwfqvsW x12zO9uYrVqGwJ9PAjj V1ByicH6MUTxfKEwWMr wUGH1G16oo5W9KRMkPQ NhWJZ3rXQ1gM5cxQkny jogbGVmdDsgdmVydGlj WRinPFvdN477QTWstCl nPkNvZGluZyBEYXRlOi AgMTIvMDcvMjAyMzwvd GQ+VAVnIJN5sHueQWEc eANmNJhxPr5weZhhdYz iLL9jBHAmjsroETInuE 4oAALvuIDchIkrZL4vA RXliogfw722JeJkODJ0 NQSifCYgK4PkoS3jAwS pXHByKSDbW5JjaGRqOR jzS478XFnnVuD4XNUom vBvL1BcCYOujJrbJgF3 g5N4Ir3Sx8GgpzzfK0B xdURcNoLjAzklOSk0N0 RkPjwvdHI+LK30XNBeR Y42IUe5XLY5gEamUJez KYNkR1LheG1fFvJmKCR kZGRkOyc+PHRhYmxlIH dpZHRoPScxMDAlJyBzd PcgIL2xBm8sGBGzFSCm wMclbUBdPwTfw5lnGYR dDJjhBC6qyDffU5TngM V4ODGcw7y5Tx60I41cN 3JvdXA+HDTeyNF4iGD4 cY5xLiTdMzV6EVohV51 4PuPfpRQwAavyc7vud4 krgBw1FcB9IPDzlgYny YmaRTR1b3TjKh67Y48y IHdpZHRoPSIxNSUiIHZ qwTorjg4gjO6zIv0+PG TngRZ6yAP6lI4vWaBtC kW8MMurQ883SzQqoPPj Wlwga3xbd0cxlOm3OdV dAAWmimLogRchIOE7w7 OkCb63D5XwyQbar6OjK di3ca42aEUtl0Z9gZL0 Z8IaWREzbgyiiMQivHj gIW4qSXUdnwbgJUOvsR 5pFDLaY9i8HnZaLsH0S CeeJ2NpgwN6CQZkpRVd MWEeiPPUcD9ejanyv2e ojbraElTkFQOfSAd8PV g7WPDwcPyfLbTsHFZ7O gE7XXE8hOJeiE2hyWpf etchjE1oWye+XDB6dHP klSROWL9oWvbrxPP+PH RuZCX2yCbyKQtiERIed J6kNTNaD6c1IyCpIrR2 BOoxJ7GfwmV2GYQzvQG zHURuoITPvK7ndjdio9 raevqeGsRgOFXpVKg1A Sr6ABUyyRwmGiNkNFV4 SaM0NHD3pVKrmL7hyRp tusgpfS3kPbh+QmlydG dtRAS8BDw7T7EpFnb2I EFxyNtzAK0hiCBeJScj Bb1qqFzueFepYG2dGKM dbfsfg731HfNft7xgLW GseEEbJJguPBG7U17wm 6C1HRBdYOTqHSQ2lAM7 pI7czZfvroicmMDflWi gdmVydGljYWwtYWxpZ2 93DSXomYmrFjJzETc7Y 9PrIss2TMQbuAylMF1l lHVkKNpyCc6vzNklcXp bOB8uULCptwfmt507Jf Bsv9djANWyvDTqUNntR GD7U11se8G6QYCsNTTj SCU4vHI4yI4wmTgqbnt gbGVmdDsgdmVydGljYW giEDjxK850HOIqxGqqC qZgnFe4E8SzMun0GIPa uGlfSR4joCYeMZdqTu4 zcQzdnAntPA4kYQSgje jtr817AoLsr1lzDDHjj IEqESixCFL3Q78io6G0 TELxVUCwKLK0pDX9iA5 hbGlnbjogbGVmdDsgdm VxbOadHXigAVftE641X HRvcDsnPlBhdGllbnQg VHbvGDa5Z3SpScsiiRX +DS24DIDrOY42kJDsxK Zhg9xgvQx9HnTeRBLjI OB3wNitKXohl9BgZLOz O09ofNAeo0H7QERnuRm dhILvUkHkfEO8oS1mTR pmcchwq4pcxlxmCqahs 3knnl65xP99H63yIXnp ZHRoPSIzMCUiIHZhbGl qxa7hmK5oVz8+PGNvbC C4xDE8oR5yJXEeGnS7R DhcM331EuQmoWFjXxxu x8qot1htlVw8VrL0VEX wltYqwVtbGDE7x5TtWo 96W10cSUavZPKqGLMxI MVcWQPpaHbzsd0fcA3w Ii8+UATdkBB0gQN7dB7 lZwQbDhG4EEvdG726Vg FiuLYwHopbN26lW7Pdt XA+LLReZmk6QSTgtSrr UY3vbVMdZDxjSb8nKHN 0GbTiTtIhRFotT8WdML EescocwniwwNE9ZQDrU OAwrN70Fu4jhZebUXWw bBMIxG1abwzux1osbwr dNnBdMJNsAKd0KKx2IO PurRgkOfKkQUB3GtH2A SN5kAWpsV2nnPlucndl tT2vD3QiGIFwxncrGr4 9bD1kPeYfLmD6MIroDe c+I3FDSD0DVwtaH0VEY GSBFEASY6UNNXmtwOK+ QSHlKLW7hInsNWoeBRV ydV7iBTKiL4j3GpBiZn X5NTozJ1XqWANqnrqiH j01vZ0qSbXnXqA7VBhn D9KfymZ7LVOofONpKCe eQIO6S30uw7F7YUVgCZ ObVMP9aSW7pU0nmPydw jogbGVmdDsgdmVydGlj WExwVDgfC752UAFfgSj wJcWpYgMvFpI2AbX4H9 CpUhm9LQYwpLbbFX8or IKhKTcfVp9cmHkycWeu QL2dWKVjkpxlFPVnlW8 wCWLhjARizJmkKY0fQA Mfskxfz317SdShNVP4K BZibMPnY0SpcU7iYrDn UYAaMRGvF8JhcGZfLOu kM417UBluSgJ8BNKkgc IpL4BqUTYacXdwZmS6q 7J3Sj55YGMGBXDnttjh dGQ+DDAkZIE2zXtyNOx dDGSqmR6jNLVnV1c9Io LwPdW9ZBofI3VkTQBnm rljRf02jL3kMvSkPnH1 FAotG9JettK4BRDvuNC mZEsnMKZ3J86gb8S1BH JlEAIkQBW7jDV0eA5nd GlnbjogbGVmdDsgdmVy vCccXBjtZAmtT216LMD bwAhjAv9PRKP1Z9SkJc k0MIOxoZmpSI3kpLXbC ViaXj1ldTdfaUdrDH6s KGQyauraBYKxhB1rOXQ wvXUslHnmPF4bOUPksg vqv772YcCaUXJ2XAJlk MEhS4GybB3gNsJsGTFq WSRiT3ItwCKlSOclF16 1XIreXqN1TYJkckXcT2 GdWVIdbKbuItK8l8H8L x5MFIrbbWY+ZU77fn04 M8RiJnaqTsy1UKJuJPS 9gCQ5cM8dYONrLQgls4 S2xXG2H0RdmaWafd5il 7geDGVgOVwuY40ynNTa j7F6COJloAC2VUMtzOt wIeMfdA45Bqx+PGNvbG vnf3RdNpyih3upt5htb Lq2PgEeKXGoybPkgNmy ZQU9s7ToBd68A51lOOp pZHRoPSIzMCUiIHZhbG gelc6xnN5mLn4+PGNvb QJ1sAI2fN7ePySkZpS8 ZOcjX053NjSbkHMpRnz dg6yue0eaqZg2AdExGZ DfrtVhzTutYXD4k2XoG a05R1SweJnul7HfGfp5 pz42sYGam1M5uQN8N1O hZGRpbmctbGVmdDogMC 6kRUFbkuztDQUraT1pK PSwS9u0QqMfLyE9ARpp I7OjgeG9KYNhrJEfVGS ppJXYwY9fwxtnm3kerk ttGbLvNSPcWBw4NDc7F LHlnMayVyXrSFJ4XkJ8 HEP9cWRtgF1djXoiewg raY7nBll+QYa2l5sayS HoFZ5lfLO3JH18VL07k WKvf4T6xWD6N6CiSWRi wnmjdjydkIH8NVTmMXO qeT27Pn4kwIteDy2zVT RaLWU0VMGfkOYdA2Xyv C3mKzNsLUZzTKJpQ5Ub dCAcXOzaL669VTpzDhL 6SICsviSiJ1DuAAAuaK ueAsI2m2M8Lp1NED02X I60VJ61lYNdm7U1uYG9 W2LwSYTvflxffoyypSD 7IPMgDJJddU83Cd1vaB suFj3oFWBfZBR3DGBrz VYoR4DfhU9iAzHhIOAl HTWqO6CmcPSiITuvL83 5IYzgOwN0FXOslzKcJ1 NrFHBewZrpQbS0u5C5F o3CIt97CN61VX03cYUx s9Y0bCP6Y2RbDIAjubs kdeonqBL8THGsIFZwdX 24Ct0ytZxvNk4gWIQxB TB5CKCsqPZnN2DymC2r OaFkLUWoKKNjM8RpnMF aVXgvH683LYalIuO3SQ LqulZeH4JaRHIgnYmnG lV2t7J1Pz2RMZmwpvp8 O4FtDyvysYQ+DY39KRU qCL55bHHxrHOou3brkT x5BaOaBFGpRMG7eYazZ Flki5UwHLDvQ31jmZXh c2U (more content not included)... Normal [facility] .Auto Diff 08-24-2023 Auto [place] % 6 % Normal 09-30 [facility] Comment on above: Performed By: #### 1 [id number], 43302159, [id number], 7074983, 4991361658, 6099331 ####[facility] (DEFAULT)[address] [place] [address] Baso Abs# 0.1 x10 Normal 0.0-0.2 [facility] Comment on above: Performed By: #### 1 [id number], 10617541, 1376890757, 7704020, 6816633367, 0509319 ####[facility] (DEFAULT)[address] [place] [address] Basophils/100 WBC (Bld) 1.0 % Normal 0.2-2.0 [facility] Comment on above: Performed By: #### 1 8596319, 74503088, 6292044934, 1240803, 4488254230, 4803548 ####[facility] (DEFAULT)[address] [place] [address] Eos Abs# 0.1 x10 Normal 0.0-0.4 [facility] Comment on above: Performed By: #### 1 6757669, 25856111, 1601875699, 0843185, 5864036681, 4206621 ####[facility] (DEFAULT)[address] [place] [address] 88349 Eosinophils/100 WBC (Bld) 1.1 % Normal 0.9-4.0 [facility] Comment on above: Performed By: #### 1 6739531, 92749696, 0321586891, 6835224, 9863821939, 6547353 ####[facility] (DEFAULT)[address] [place] [address] Lymph Abs# 2.1 x10 Normal 1.3-2.9 [facility] Comment on above: Performed By: #### 1 9745481, 76271212, 1877188181, 4974522, 4495724459, 2039514 ####[facility] (DEFAULT)[address] [place] [address] 47902 Lymphocytes/100 WBC (Bld) 26 % Normal 14-48 [facility] Comment on above: Performed By: #### 1 8698538, 74956394, 7491917202, 8843155, 0509492903, 9931127 ####[facility] (DEFAULT)[address] [place] [address] 44185 [place] Abs# 0.5 x10 Normal 0.0-0.8 [facility] Comment on above: Performed By: #### 1 1500849, 51073842, 8293610015, 2288160, 9402305975, 4641822 ####[facility] (DEFAULT)[address] [place] [address] 32041 Neut Abs# 5.2 x10 Normal 1.5-9.2 [facility] Comment on above: Performed By: #### 1 5004537, 05091782, 8054122730, 7739963, 6785474418, 9971968 ####[facility] (DEFAULT)[address] [place] [address] 82979 Neutrophils/100 WBC (Bld) 65 % Normal 44-88 [facility] Comment on above: Performed By: #### 1 2088234, 76203951, 6610751003, 1762710, 7135059687, 1150098 ####[facility] (DEFAULT)[address] [place] [address] CBC w/ Auto Diffon 3 Erythrocyte distribution width (RBC) [Ratio] 13.7 % Normal 11.5-15.0 [facility] Comment on above: Performed By: #### 1 9641874, 14878270, 0184404367, 6011233, 9508212619, 4418100 ####[facility] (DEFAULT)[address] [place] [address] Hematocrit (Bld) [Volume fraction] 45.6 % Normal 34.8-51.9 [facility] Comment on above: Performed By: #### 1 1516203, 04687184, 8379650543, 9542795, 3811801209, 7460409 ####[facility] (DEFAULT)[address] [place] [address] Hemoglobin (Bld) [Mass/Vol] 15.2 g/dL Normal 11.8-17.7 [facility] Comment on above: Performed By: #### 1 8069220, 70080889, 6825934289, 8412539, 2923209764, 8911573 ####[facility] (DEFAULT)[address] [place] [address] Man Diff? Auto Invalid Interpretation Code [facility] Comment on above: Performed By: #### 1 4473196, 52403431, 3343778748, 6744936, 9845403135, 0061958 ####[facility] (DEFAULT)[address] [place] [address] MCH (RBC) [Entitic mass] 29 pg Normal 24-34 [facility] Comment on above: Performed By: #### 1 8590270, 71204336, 4366149670, 9600368, 3078627063, 7027039 ####[facility] (DEFAULT)[address] [place] [address] MCHC (RBC) [Mass/Vol] 33 g/dL Normal 26-37 [facility] Comment on above: Performed By: #### 1 3742916, 78368631, 5746810755, 4064553, 0672837482, 5911093 ####[facility] (DEFAULT)[address] [place] [address] 92689 MCV (RBC) [Entitic vol] 88 fL Normal 81-100 [facility] Comment on above: Performed By: #### 1 5947457, 57512021, 8810054662, 1802529, 5821753806, 7443223 ####[facility] (DEFAULT)[address] [place] [address] 13055 Platelet 391 x10 Normal 138-427 [facility] Comment on above: Performed By: #### 1 7950308, 03846982, 4183544802, 4588305, 4642253365, 9451711 ####[facility] (DEFAULT)[address] [place] [address] 11088 Platelet mean volume (Bld) [Entitic vol] 8.5 fL Normal 6.3-10.2 [facility] Comment on above: Performed By: #### 1 7653627, 09252023, 2496763471, 5190245, 1618906405, 5232240 ####[facility] (DEFAULT)[address] [place] [address] 74064 RBC 5.19 x10 Normal 3.70-5.30 [facility] Comment on above: Performed By: #### 1 3336567, 80902923, 8099066679, 2138578, 6256615988, 7561677 ####[facility] (DEFAULT)[address] [place] [address] 90924 WBC 8.0 x10 Normal 3.5-10.5 [facility] Comment on above: Performed By: #### 1 6496217, 97435474, 6854255440, 5706137, 0408818136, 7032081 ####[facility] (DEFAULT)[address] [place] [address] 85396 CMP Standardon 08-24-2023 eGFR Non AA >60 Invalid Interpretation Code [facility] Comment on above: Performed By: #### 1 3155200, 83976042, 7264027101, 6316836, 7113908805, 2200841 ####[facility] (DEFAULT)[address] [place] [address] 96085 eGFR AA >60 Invalid Interpretation Code [facility] Comment on above: Performed By: #### 1 3391816, 68963733, 5626553078, 3109358, 0015759576, 0741146 ####[facility] (DEFAULT)[address] [place] [address] 70030 Albumin [Mass/Vol] 4.4 g/dL Normal 3.5-5.0 [facility] Comment on above: Performed By: #### 1 5057833, 34831580, 6903599092, 6044932, 4049549077, 3249594 ####[facility] (DEFAULT)[address] [place] [address] 07697 Alk Phos 60 IU/L Normal 32-91 [facility] Comment on above: Performed By: #### 1 9270156, 07080527, 2997161732, 8255874, 9599639833, 4448821 ####[facility] (DEFAULT)[address] [place] [address] 16056 ALT [Catalytic activity/Vol] 52.0 U/L Normal 17.0-63.0 [facility] Comment on above: Performed By: #### 1 9832659, 19418953, 2265673446, 4883970, 4188766287, 2505120 ####[facility] (DEFAULT)[address] [place] [address] 60674 AST [Catalytic activity/Vol] 32 U/L Normal 15-41 [facility] Comment on above: Performed By: #### 1 1589606, 55803865, 9329918830, 2611335, 6103932383, 5389493 ####[facility] (DEFAULT)[address] [place] [address] 27782 Bili Total 0.9 mg/dL Normal 0.3-1.2 [facility] Comment on above: Performed By: #### 1 1696833, 01559653, 8165329246, 4085427, 5143942987, 4184160 ####[facility] (DEFAULT)[address] [place] [address] 60816 Calcium [Mass/Vol] 9.4 mg/dL Normal 8.9-10.3 [facility] Comment on above: Performed By: #### 1 8305698, 20586339, 0286178393, 5151660, 8561500356, 6882690 ####[facility] (DEFAULT)[address] [place] [address] 93887 Chloride [Moles/Vol] 109 mmol/L Normal 101-111 [facility] Comment on above: Performed By: #### 1 6365458, 59938573, 6869846196, 1013602, 0241899347, 0219463 ####[facility] (DEFAULT)[address] [place] [address] 62179 CO2 [Moles/Vol] 25 mmol/L Normal 21-32 [facility] Comment on above: Performed By: #### 1 6752447, 63937860, 6242522127, 1847987, 6000724065, 8391738 ####[facility] (DEFAULT)[address] [place] [address] 96806 Creatinine [Mass/Vol] 0.74 mg/dL Low 0.90-1.30 [facility] Comment on above: Performed By: #### 1 4622546, 19751486, 6631500496, 7508275, 6897109745, 4392010 ####[facility] (DEFAULT)[address] [place] [address] 01511 Glucose [Mass/Vol] 105.0 mg/dL Normal 74.0-118.0 [facility] Comment on above: Performed By: #### 1 1700236, 86016119, 8011222411, 9430361, 6646988685, 9226067 ####[facility] (DEFAULT)[address] [place] [address] 70694 Potassium [Moles/Vol] 4.0 mmol/L Normal 3.6-5.1 [facility] Comment on above: Performed By: #### 1 9568603, 83663661, 2977285232, 2732942, 7017355359, 2207778 ####[facility] (DEFAULT)[address] [place] [address] 26165 Protein [Mass/Vol] 7.5 g/dL Normal 6.5-8.1 [facility] Comment on above: Performed By: #### 1 8914106, 95282610, 0884005200, 2361821, 5771524163, 6868668 ####[facility] (DEFAULT)[address] [place] [address] 23802 Sodium [Moles/Vol] 140.0 mmol/L Normal 136.0-144.0 [facility] Comment on above: Performed By: #### 1 4122067, 69653819, 4992091498, 1124570, 7449815896, 7650144 ####[facility] (DEFAULT)[address] [place] [address] 01859 Urea nitrogen [Mass/Vol] 10 mg/dL Normal 8-26 [facility] Comment on above: Performed By: #### 1 2268767, 66892516, 1058024443, 5365219, 7982667117, 9821990 ####[facility] (DEFAULT)[address] [place] [address] 69365 Albumin/Globulin [Mass ratio] 1.4 {ratio} Normal 1.4-2.6 [facility] Comment on above: Performed By: #### 1 [id number], [id number], [id number], 6083355, [id number], [id number] ####[facility] (DEFAULT)[address] [place] [address] 18813 Anion gap [Moles/Vol] 10.0 mmol/L Normal 5.0-19.0 [facility] Comment on above: Performed By: #### 1 [id number], [id number], [id number], 0638039, [id number], [id number] ####[facility] (DEFAULT)[address] [place] [address]4517 Globulin (S) [Mass/Vol] 3.1 g/dL Normal 1.5-4.3 [facility] Comment on above: Performed By: #### 1 [id number], 68543563, [id number], 2591611, [id number], 7057536 ####[facility] (DEFAULT)[address] [place] [address] Osmolality 279 mOsm/L Invalid Interpretation Code [facility] Comment on above: Performed By: #### 1 [id number], [id number], [id number], 7490990, [id number], [id number] ####[facility] (DEFAULT)[address] [place] [address] Urea nitrogen/Creatinin e [Mass ratio] 13.5 mg/mg Normal 4.6-16.2 [facility] Comment on above: Performed By: #### 1 [id number], [id number], [id number], 8038949, [id number], [id number] ####[facility] (DEFAULT)[address] [place] [address] HgbA1c Standardon 08-24-2023 .Hb 16.6 Invalid Interpretation Code [facility] Comment on above: Performed By: #### 1 [id number], [id number], [id number], 0120419, [id number], 9205444 ####[facility] (DEFAULT)[address] [place] [address] .Hgb A1c 0.59 g/dL Invalid Interpretation Code [facility] Comment on above: Performed By: #### 1 [id number], 70980807, [id number], 8628205, [id number], [id number] ####[facility] (DEFAULT)[address] [place] [address] Glucose [Mass/Vol] 108 mg/dL Invalid Interpretation Code [facility] Comment on above: Performed By: #### 1 [id number], 46091623, [id number], 7512440, [id number], [id number] ####[facility] (DEFAULT)[address] [place] [address] HbA1c (Bld) [Mass fraction] 5.4 % Normal 4.6-6.2 [facility] Comment on above: Performed By: #### 1 [id number], 10742178, [id number], 6264365, [id number], 6958989 ####[facility] (DEFAULT)[address] [place] [address] Reminder Messageson 08-24-20 Reminder Messages -- From: MILAN NAILS DO To: [facility] Clinical Pool ([facility]); Sent: 08/24/2023 12:33:59 EST ! Show up: 08/24/2023 12:33:59 EST Subject: Results Follow Up Actions: Call the patient with result(s) Due Date/Time: 08/25/2023 12:33:00 EST Reminder Comments: looks good Results: Date Result Name Value Ref Range 08/24/2023 10:17 Estimated Avg Glucose 108 mg/dL 08/24/2023 10:17 Hgb A1c % 5.4 % (4.6 - 6.2) Patient called and notified of results. Verbalized understanding. Normal [facility] Reminder Messages -- From: MILAN NAILS DO To: [facility] Clinical Pool ([facility]); Sent: 08/24/2023 12:24:35 EST ! Show up: [...] % (14 - 48) 08/24/2023 10:17 Auto [place] % 6 % (1 - 12) 08/24/2023 10:17 Auto Eos % 1.1 % (0.9 - 4.0) 08/24/2023 10:17 Auto Baso % 1.0 % (0.2 - 2.0) 08/24/2023 10:17 Neut Abs# 5.2 x103/mcL (1.5 - 9.2) 08/24/2023 10:17 Lymph Abs# 2.1 x103/mcL (1.3 - 2.9) 08/24/2023 10:17 [place] Abs# 0.5 x103/mcL (0.0 - 0.8) 08/24/2023 10:17 Eos Abs# 0.1 x103/mcL (0.0 - 0.4) 08/24/2023 10:17 Baso Abs# 0.1 x103/mcL (0.0 - 0.2) Patient called and notified of results. Verbalized understanding. Normal [facility] T4, Totalon 08-24-2023 T4 [Mass/Vol] 9.52 ug/dL Normal 6.09-12.23 [facility] Comment on above: Performed By: #### 1 [id number], [id number], [id number], 3250790, [id number], [id number] ####[facility] (DEFAULT)[address] [place] [address] TSHon 08-24-2023 TSH Qn 1.11 m[IU]/L Normal 0.45-5.33 [facility] Comment on above: Performed By: #### 1 [id number], [id number], [id number], 8733463, [id number], [id number] ####[place] [address] Coding Summaryon 08-02-2023 Coding Summary HTMLBase 64 TicgymnrROj6hQr+PGh lYWQ+BY5RNDSyR49epL JswK8eT4RUWKpUXgasF QBUZFrARbGpwpSiAE5u aXNjZXJu IC8+ZC6aCPTjNmomyJF kt5J2iNP8B23ttk6oHL olwSF6OHWmYgRwjfmqt 8nunKa1IOvbGymwXtPt QQFvuK11WIM2uP20Bu8 1zFRezXYqp1xunHx9Xm SeRMPxMQY4lOfjAXjat 2QiBELxT40mcUHwk0I6 IGNvbGxhcHNlOyBlbXB 9zM2mMLslfebmz1jvko slFfj7ey90jACnr6B5l LH5T0TrmgQ6WEGtjNUg CjrukANRmV8ltrbrd0n ndgioHkQqFBSyBFg9UA i4LGNzkTpyVuHoRJ83B FW8RSOpqwQtB8DzMSQl bXggDpP1m2Y6Ni0KR1Y RUcwrI1PHSGDUMFmhbV Q+FL59ri56F5OoSeqeV ro1YIYkTWK6mPV9kG3n VGVbJKmxx4B6pGE4R3D odpKped7eg0zaYGNcKW umO74ygXIvr7A3EKRui FL6ZXSiuPotHmAyxX31 Oyc+PRLxjMesl3LgTfu ra5oen4qfsGl2EtwvSK ZarhAtiLtaAAF9w6RyG i6fFIKdgRC9hAG5lL5m QlQwRvA1PAyvS787VfY osLZpNndxP12qR3JmfD A+SYCnHsl6VXXavRwsG V8kT8UvOZHwrzkdpMSm kVhtXE4mYBRvxdnhZLQ hyP1uVUApC3a6UoVrMv Y8DOqwT0IgAVKyqwexL t62rS0fWeUvGoR2APie R5GpueK8ILVthYDrTRf aLEP7U17qa8N4GYMcVS FlPOP3kDY5cL1woOcbq jogbGVmdDsgdmVydGlj QWzgWDshJ996WHHblKe nPkNvZGluZyBEYXRlOi AgMTEvMTQvMjAyMzwvd GQ+MLYtTPA8dJlaKFCu dYYpGWemHq5qyGrmnJr qXP9yTPLxryfnELFxwD 4kNYSpaGPvpZvvDR6kG PHygwvth878QeWvWQB9 UPFezFNsB7QobY6rHwK lXTMhWLBsX7OobBUoWR wbT757NQibInW5GVUsb wGyQ6UgVJZpeQelDoJ2 l3R5Ez1Hq8ZxvxkhE0N afJKrHfSmMxwrAYt3T2 RkPjwvdHI+WT23FASpQ V14OEz9RYY0lGviKYml WHPyR3QumB6oSrBrUXU kZGRkOyc+PHRhYmxlIH dpZHRoPScxMDAlJyBzd OovFQ8bOv9cZWNwOTGg yRbtpUUaQhPvg9vyRHO cHTxpYP8wyLznJ1TvfM V9PVGub5p2He82K02cP 3JvdXA+BJRcyJI0fPU2 jW5fXqOyMtK5UQcwJ39 6HbHgjMXkNvzuq7jpm7 bsgFd3OmJ7XKMdoqUec AlcIMH0g8CsHz92I94a IHdpZHRoPSIxNSUiIHZ hwYqgmv6alI4iNm1+PG ZqiZJ1kXP1bI4zYeIaW yC5NSnkK653IeGkzVLi Halps5fex1xphGa0OhK vWKIwefSxmGraPLG1h6 YtZk64R2RjvHaid1RtB ed7bm70oCJwr5W3pQX7 Q5JbRHQurhlkaPGuhRc jDL1fEADmtoywBNKocV 5bDUWpH9k7OvLuEmC2A SfqY4DgrdG8YCDxdEBo MZIvqFDHsY8sgwxvg7q sbqxlKhJsZTNzFMl1IP s4LATeaSdyGlKxPDM9M tZ9NPK2wUVkxT8ekVqc nsxctS0wYoy+RYU5kAV uxJFZIC2yFnxyxRC+PH QjRGO8cRqjJEpzTPFfj Z6iIJLlI5s7LkZnGoO5 DQayP7CgkuY2SXXocTK oWDLwuAGSwL2mbzvyz0 owfasiUdIxVNDkNNj4C Gi5RSPqlQxeYtRyTVQ5 TsB2JEK2qUHndS9leBf mftglgJ4rIfk+QmlydG tdYNC2WAl2X7ZtMgw5K GBxaBllRW2zdPBzEDnw Kt3tzMyqyYqrFF8fMEP kcdzao470BnQwd5odPU GotFMgTCzoZMF2B44yf 8G0CSMlEGFpRXN2rIU8 oJ2nlTtjrznpzKJmlNh gdmVydGljYWwtYWxpZ2 73IJBooGxuBqLqICf9N 6XqBtv6PNSraXdpJS6c lVVrGBziJy2ueDbgbQr bOZ0oZZTgekptq162Ip Iav9anUGUgnRVlWAwqA DM8N22tb6T1EGYtOCHx KOR8eMO5mJ8trXmdwbq gbGVmdDsgdmVydGljYW ufCZbiN839RPLzmMxyR pYodHt6Q1EvAso3MGTn xIuhDZ2jcRYkRRxuUv0 pxLunvSbuVF3iMPYtra wsw913OlDti7jmXRGgo MZmCSqfEJS6X20cd6R9 JITdEEPgOKR8kIW5tX8 hbGlnbjogbGVmdDsgdm TrgCuxMHgqPXdqO339I HRvcDsnPlBhdGllbnQg EIkdTBj1U1FgRmvejSC +CI36OMIoIY96dZJwkN Lbi8vmiNc4GyIiQAGjG SC6kUcaYJokf0LsMHOb R47hbRSln5N3BIXuqCp coNAuQjSflEQ6xR2rPN jgihzst2apdayoFwimg 0kxti78vJ98S46qEXzt ZHRoPSIzMCUiIHZhbGl vou1bsV9zNo4+PGNvbC U0rSP2fB2sLMGvDhU0X DhnN452KfGnsCMtGxrl v3nlo2dnnAe5CnL8ILE psoIxwEgcMOH6a4MiJi 94B57xFKoaNCBsWMMrO QSiHLZdjIpfxa3ikA1y Ii8+TLRnaLK3zJJ1mQ5 fHqBoSnE6KWzbJ717Jf QspMNqHuioA06wY0Kmj XA+LFXkOww3QZZnwVuv MP5leOYpQMxoXq5mEAJ 5GsPqWaSyUZuoO1EsEY OerxvmsnrxbJV0WGHtT JUduS27Ao3ofCquFWFy vWKSzL0ikjfxl3jkbti cQdBhLJRzOXw4YMl6CD RxhFajOcPjGVJ4KaC5A ZG0bIGpsU3dwNyzvsom iX6vH7DrNURtrtaePy0 4dB0tMuSvHfQ1IOtqXk c+B1QDMH3IAzowP2KZA LFYSMZGG1GTNEjasKX+ RYToHMQ4vRstCPvpDOC uaO3xVFUcP7v8AlHgFi R9KUgsR4MxOCFbluzoZ x47yW2zIpGsSrW2EWhf U1EtdzK3QBKxgBLdVQd uVTT2P99ux5D3MEGbCA IuWIK4mSS6dQ9miUfcd jogbGVmdDsgdmVydGlj LAjdTPtwP279GTJrpYp bStUpOsVoUbJ8UoN1P7 SxBzh8WMKgyJvmIV3yo SFjUOhjXb9owXxziZnm TA0wTSSfgdsaTSVjdB4 zRXPqiPPgpPxgOO2vWD Ubxwzof370CgQmTJT3W ZMxfLXgP8LyiQ4oQdEg TIKzYGAdS7BhoEWsTMh uW819FQqzAuW5KIAqpi BwK5HrESYsnIiaIcF1v 2G1Jl72IVHQOYXpmbsm dGQ+JTIsKZP6fTmtIPo vHEYicL4fETQlT7a9Ge BhAlJ3ZTybR9ZhIWXjs ihwLo27tU8eKwIqPqB3 BDajA0DdtkK2JYTepHD aTUxgSMF9R62qe1P4WT UwNSWsSGR4dKL7xU0sx GlnbjogbGVmdDsgdmVy sPodMQzuSYooV579HSW blXemVo5FFDC2I7ChYz h4XAZffLeeQV1omVWsN DeqOk3ogOktjBvrED5d SQOfvsfuKAMzeQ6hYJE wqZFkxQxbXM5jDOHbgu dih348IyBbCXM1QXZvc BKjG3XepQ8rCtLpEULa SJKxR4PosNClECnsY25 9EWlnOrC8MOKwetFcG9 NhRQQyeXrnEhG3i1D3Z p5LYDummFW+US07fm29 I6DgDppdKqb2VRDqWSR 3yDY5eB5nLUPiGClrs2 N8bVR5L4HurdOshm0ck 1ecITGdZRjwE69ynSCk u3H3ZFQahUG4JXQgmIh uUtFrvO02Vvf+PGNvbG clp6GyMcphd0ypo9yiq No9ApWsLILgdjUbdBqy KID0d1GzDt16P82mOQx pZHRoPSIzMCUiIHZhbG aurd6xoZ0wKr5+PGNvb OE1jAB6tM1oTdUbHkQ5 QHtkW718UyGhlIKtUhn zc1qgi0wodWp5FlDvMX EtnxLpfQcsZLA7l4MyY h19Q3HidKefo2KgEio8 xz05iWHbm3K5gZO0S1X hZGRpbmctbGVmdDogMC 4iHHElempjRRHdiH3bM IOzM3g0EuWpVoV2FSiv E8AyjqP4EVOsyUArTVY mlRMSxZ2isovme3fngx ajGoKqFIBvGXa0MBj5H CRtxYmjEjRlSKX3XeB3 LMN3sTHkbZ9prKbzplv fsX6tYib+DOw2z8qvnE FhMH4xfJU4IZ19OA92x IMes3M9yOM3P1RkMLRw hcstryxxnNK2MZEgZIU yqJ50Ef7yiInhSg7oWJ LjXDK1NWWgrPBiE8Gjm W5hOjZlDLNzAZEmR9Nr iNNjIRngT709BFwgNjP 5GXKbgsLjM8JaOLGbiQ wsQuO8i6Z9Hc7OIP92Z H12AT77oRHpn8Y0zYJ6 C9PhKBHdccbmwjcgoYX 9TKZfJKZreY87Vl1dlF ciRf7eIQDzYNV5MPWff YZhO4UfvG7xOiXsBODf NYJkC5LdqPRhTPnsF59 0MLnvVuI5VPPrtbDsE3 QhRKIijJheJsY9c0L6A h6RXj20WB31QY59bFAu b8Q0jWT1F5JrGYFries zngaezOK8WUUlFAQfrU 65Vt7rgKbaEr6pMEWdS DG4UOIppBXbH8LnpZ6g MfUgBOJjFPYyP9LlzLT bISlvR817TCcqOnE9KG CotoMzQ6JtMYQkdZbcR lB5s1P7Du1OVGrpxhx6 L4CiZwhzrOU+QQ52HQL xPO25tIBryBAzk2knzP w7PrVnWNAwWCM3nPwtX Lboq1PpANEwQ74ewCHx c2U (more content not included)... Normal [facility] ED Clinical Summaryon 2022 ED Clinical Summary [facility] ? Urgent Care [address] [place] [address] Clinical Summary PERSON INFORMATION Name: DION ANDRES Age: 47 Years Sex: MALE : 1975 MRN: Acct#: Visit Reason: UC - Laceration; LACERATION ON LEFT HAND Arrival: 07/26/2023 15:38:23 Discharge: 07/26/2023 17:27:00 LOS: 000 01:49 Check In: 07/26/2023 15:38:23 Checkout: 07/26/2023 17:27:00 Address: [address] [place] [id number] PCP: MILAN NAILS DO PROVIDER INFORMATION Provider Role Assigned Unassigned Rashad Bowman ED 07/26/2023 15:51:54 Carlos RN, Bebe ED Nurse [...] Follow-Up: With: Address: When: MILAN NAILS DO [address] [place] [id number] Within 3 to 5 days Comments: Diagnosis [...] wound to hand Patient Understands: Yes - 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 Urgent Care [address] [place] [address] PATIENT DISCHARGE INSTRUCTIONS Patient Information Name: DION ANDRES Age: 47 Years Date of : 1975 [facility]: [id number] Reason For Visit: UC - Laceration; LACERATION ON LEFT HAND Arrival Time: 07/26/2023 15:38:23 Primary Care Physician: MILAN NAILS DO Attending Physician: Rashad Bowman Comment: Patient Education With: Address: When: MILAN NAILS DO [address] [place] [address] Within 3 to 5 days Comments: Diagnosis [...] and water are not available, use hand sociology adjunct instructor. ? Change your dressing at least once [...] at home: Medicines ? Take or apply nuwk-hrw-dlhxnrp and prescription medicines only as told by [...] is impor (more content not included)... Normal [facility] Ur[facility] Care Recordon 023 Urgent Care Record [facility] ? Urgent Care [address] [place], [place] [id number] PATIENT DISCHARGE INSTRUCTIONS Patient Information Name: DION ANDRES Age: 47 Years Date of : 1975 [facility]: [id number] Reason For Visit: UC - Laceration; LACERATION ON LEFT HAND Arrival Time: 07/26/2023 15:38:23 Primary Care Physician: MILAN NAILS DO Attending Physician: Rashad Bowman Comment: Visit Diagnosis: Diagnoses This Visit Puncture wound to hand (S61.439A) UC - Laceration ([id number]) If you received any narcotics, sedation, or [...] documents With: Address: When: MILAN NAILS DO [address] [place], [place] [id number] Within 3 to 5 days Comments: Diagnosis [...] and treatment you received today in the [facility] were for an urgent problem and are not intended as complete care. It is important for you to follow up with a doctor, nurse practitioner, or physician?s environmental emergencies assistant for ongoing care. If your symptoms [...] so we can reach you if necessary. [facility] has provided you with a complete list of medications post discharge. Please inform your hydrotreater operator/provider of your visit and for further instruction on these medications. Any specific questions regarding your chronic medications and dosages should be discussed with your primary care physician(s) and/or pharmacist. New Medications [facility], [address], [place] [id number], [phone] amoxicillin-clavula ld (amoxicillin-clavul anate 875 mg-125 mg [...] delayed release capsul (more content not included)... [facility] XR Hand Complete Lefton 11-0 XR Hand Complete Left HISTORY: Laceration. Puncture wound. Hand pain. COMPARISON: None available TECHNIQUE: AP, lateral, and oblique views of the hand FINDINGS: No acute fracture or dislocation. Joint spaces are maintained. Soft tissues are within normal limits. No radiopaque foreign body. IMPRESSION: No acute osseous abnormality. Final Signed (Electronic Signature): Stalin Eric DO 07/26/23 4:50 pm Technologist: Joseph STEPHENS [facility] Outside Recordson 06-07-2023 Outside Records [id number] [facility]2023 Patient Handout [id number] [facility] [id number] [facility] LUMBAR SPINE 6 OR MORE [facility] 01-14-2022 LUMBAR SPINE 6 OR MORE [facility] Department of Radiology [address] [place] [id number] Patient Name: DION ANDRES : 1975 Sex: M Age: Race: White Pt. Location: 85 Patient Status: D Ordered Date: 01/14/2022 12:15:00 PM Completed Date: 01/14/2022 12:37 PM Requesting Provider: JACKELINE RANDLE Attending Provider: JACKELINE RANDLE Report Copy To: MILAN NAILS Signs & Symptoms: M47.896 Other spondylosis, lumbar region I10 History: Rachel Comments: , ap, lat, flex, ex, obliques, r/o instability or pars defect , Views (X-RAY, LUMBAR SPINE): AP, Lateral, L5-S1 Spot, Obliques, Flexion, Extension , ap, lat, flex, ex, obliques, r/o instability or pars defect , Views (X-RAY, LUMBAR SPINE): AP, Lateral, L5-S1 Spot, Obliques, Flexion, Extension , , , Ordering Provider - A JER LOPEZ FILM CUTTER , Exam: LUMBAR SPINE 6 OR MORE [...] radiographically. Electronically signed: Rashad Adler. Transcribed by: [email or web address], User Resident: Electronically Signed by: RASHAD ADLER @ 01/15/2022 11:40 AM Normal [facility] Comment on above: Order Comment: , ap, lat, flex, ex, obliques, r/o instability or pars defect , Views (X-RAY, LUMBAR SPINE): AP, Lateral, L5-S1 Spot, Obliques, Flexion, Extension , ap, lat, flex, ex, obliques, r/o instability or pars defect , Views (X-RAY, LUMBAR SPINE): AP, Lateral, L5-S1 Spot, Obliques, Flexion, Extension , , , Ordering Provider - Sherice LOPEZ FILM CUTTER , Vital Signs Date Time Vital Sign Value Performing Clinician Facility 09-23-2023 10:05-0500 Body height Abbey Robin Other [facility] Other 09-23-2023 10:05-0500 Body mass index (BMI) [Ratio] 44.21 kg/m2 Abbey Nietomond Other [facility] Other 09-23-2023 10:05-0500 Body temperature 98.6 [degF] Abbey Nietomond Other [facility] Other 09-23-2023 10:05-0500 Body weight 135.81 kg Abbey Nietomond Other [facility] Other 09-23-2023 10:05-0500 Diastolic blood pressure 82 mm[Hg] Abbey Nietomond Other [facility] Other 09-23-2023 10:05-0500 Respiratory rate 18 /min Abbey Nietomond Other [facility] Other 09-23-2023 10:05-0500 SaO2% (BldA) [Mass fraction] 95 % Abbey Robin Other [facility] Other 09-23-2023 10:05-0500 Systolic blood pressure 152 mm[Hg] Abbey Robin Other [facility] Other 04-15-2023 10:30-0400 Body height Marisol Zelaya Other [facility] Other 04-15-2023 10:30-0400 Body mass index (BMI) [Ratio] 45.33 kg/m2 Marisol Zelaya Other [facility] Other 04-15-2023 10:30-0400 Body temperature 97.6 [degF] Marisol Zelaya Other [facility] Other 04-15-2023 10:30-0400 Body weight 139.26 kg Marisol Zelaya Other [facility] Other 04-15-2023 10:30-0400 Diastolic blood pressure 80 mm[Hg] Marisol Zelaya Other [facility] Other 04-15-2023 10:30-0400 Respiratory rate 18 /min Marisol Zelaya Other [facility] Other 04-15-2023 10:30-0400 SaO2% (BldA) [Mass fraction] 98 % Marisol Zelaya Other [facility] Other 04-15-2023 10:30-0400 Systolic blood pressure 125 mm[Hg] Marisol Zelaya Other [facility] Other Encounters Encounter Date Encounter Type Care Provider Facility Start: 02-22-2024 End: 02-22-2024 ambulatory MILAN P HOUSE Facility: [facility] Start: 01-23-2024 End: 01-23-2024 ambulatory MILAN P HOUSE Facility: [facility] Start: 01-16-2024 End: 01-16-2024 ambulatory MILAN P HOUSE Facility: [facility] Start: 01-10-2024 End: 01-10-2024 ambulatory MILAN P HOUSE Facility: [facility] Start: 11-24-2023 End: 11-24-2023 ambulatory MILAN P HOUSE [facility] Start: 09-23-2023 End: 09-23-2023 ambulatory Abbey Robin Other [facility] Other Start: 09-23-2023 Office outpatient visit 15 minutes Abbey Robin [facility] Start: 08-24-2023 End: 08-24-2023 ambulatory MILAN P HOUSE Facility:[facility] Start: 08-24-2023 End: 08-24-2023 ambulatory MILAN P HOUSE Facility:[facility] Start: 08-15-2023 End: 08-15-2023 ambulatory Kiel Polk MD Facility:[facility] Start: 07-26-2023 End: 07-26-2023 ambulatory Rashad BRADSHAW Facility:[facility] Start: 05-24-2023 End: 05-24-2023 ambulatory MILAN P HOUSE Facility:[facility] Start: 05-10-2023 End: 05-10-2023 ambulatory Kiel Polk MD Facility:[facility] Start: 04-15-2023 End: 04-15-2023 ambulatory Marisol Zelaya Other [facility] Other Start: 04-15-2023 Office outpatient ne w 20 minutes Marisol Zelaya [facility] Start: 02-15-2023 End: 02-16-2023 ambulatory NARENDRANATH LAKSHMIPATHY . Facility: Start: 02-01-2023 End: 02-01-2023 ambulatory MESSI BOURGEOISMIPATHY . Facility:[facility] Start: 01-06-2023 End: 01-07-2023 ambulatory [...] . Facility:[facility] Start: 07-22-2022 End: 07-23-[address] LUCY GIL . Facility:[facility] Start: 04-22-2022 End: 04-23-[address] LUCY GIL . Facility:[facility] Start: 04-15-2022 End: 04-16-[address] LUCY GIL . Facility:[facility] Start: 03-16-2022 End: 03-16-[address] LUCY GIL . Facility:[facility] Start: 03-09-2018 Ambulatory D[place] LU Facility :1532 Start: 03-08-2018 Ambulatory [place] VASQUEZDina Facility :1532 Payers Date Payer Category Payer Medicare [id number] 2.1 [id number] 1975 Unknown [id number] .16.84 0.1.956118.3.579.2.593 1975 Unknown [id number] 2..84 0.1.199393.3.579.259 1975 Unknown [id number] 2.16.84 0.1.042139.3.579.2593 1975 Unknown [id number] ..[id number] 0.1.725931.3.579.2.593 1975 Unknown [id number] ..[id number] 0.1.102775.3.579.2.593 1975 Unknown [id number] 2.16.84 0.1.000288.3.579.2.593 1975 Unknown [id number] 2.16.84 0.1.276296.3.579.2.593 1975 Unknown [id number] 2.16.84 0.1.672617.3.579.2.593 1975 Unknown [id number] 2.16.84 0.1.411027.3.579.2.593 1975 Unknown [id number] 2.16.84 0.1.425817.3.579.2.593 1975 Unknown [id number] 2.16.84 0.1.019826.3.579.2.593 1975 Unknown [id number] 2.16.84 0.1.652040.3.579.2.593 1975 Unknown [id number] 2.16.84 0.1.303516.3.579.2.593 1975 Unknown [id number] 2.16.8 40.1.361912.3.579.2. 1975 Unknown [id number] 2.16.8 40.1.507931.3.579.2.8 1975 Unknown [id number] 2.16.8 40.1.942745.3.579.2.71 1975 Unknown [id number] 2.16.8 40.1.866599.3.579.2.71 1975 Unknown [id number] 2.16.8 40.1.521621.3.579.271 1975 Unknown [id number] 2.16.8 40.1.112564.3.579.2.71 1975 Unknown [id number] 2.16.8 40.1.214349.3.579.2.718 1960 Medicare [id number] Unknown [id number] Social History Date Type Detail Facility Unknown if ever smoked [facility] Other Sex Assigned At Sex Assigned At Bir th [facility] Other Clinical Notes 04-15-2022 to 02-22-2024 Note Date & Type Note Facility 02-22-2024 Note Entered by DYLAN NAILS DO on February 22, 2024 11:51:43 EDT From: MILAN NAILS DO To: [facility] Sent: 02/22/2024 11:51:43 EDT Subject: Medication Management Documented Complete:albuterol (Albuterol (Eqv-ProAir HFA) 90 mcg/inh inhalation aerosol) Signed by MILAN NAILS DO 02/22/2024 11:51:00 EDT Submitted: Complete:propranolol (propranolol 80 mg oral capsule, extended release) Signed by MILAN NAILS DO 02/22/2024 11:51:00 EDT Submitted: Complete:SUMAtriptan (SUMAtriptan 100 mg oral tablet) Signed by MILAN NAILS DO 02/22/2024 11:51:00 EDT Approved with modifications: albuterol (albuterol sulfate HFA 90 mcg/actuation aerosol inhaler) INHALE 2 PUFFS BY MOUTH EVERY 6 HOURS NEEDED Qty: 8.5 gm Days Supply: 25 Refills: 5 Substitutions Allowed Route To Pharmacy - [facility] Approved SUMAtriptan (sumatriptan 100 mg tablet) TAKE 1 TABLET BY MOUTH DAILY Qty: 12 EA Days Supply: 12 Refills: 2 Substitutions Allowed Route To Pharmacy - [facility] Approved with modifications: propranolol (propranolol ER 80 mg capsule,24 hr,extended release) TAKE 1 CAPSULE BY MOUTH DAILY Qty: 30 cap(s) Days Supply: 30 Refills: 5 Substitutions Allowed Route To Pharmacy - [facility] Patient matched by MILAN NAILS DO on 02/22/2024 11:50:58 EDT From: [facility] To: MILAN NAILS DO Sent: February 22, 2024 10:28:52 AM CDT Subject: Medication Management Due: February 23, 2024 12:14:47 AM CDT On Hold Pending Signature Drug: albuterol (Albuterol (Eqv-ProAir HFA) 90 mcg/inh inhalation aerosol), INHALE 2 PUFFS BY MOUTH EVERY 6 HOURS NEEDED Quantity: 8.5 gm Days Supply: 25 Refills: 10 Substitutions Allowed Notes from Pharmacy: Dispensed Drug: albuterol (Albuterol (Eqv-ProAir HFA) 90 mcg/inh inhalation aerosol), INHALE 2 PUFFS BY MOUTH EVERY 6 HOURS NEEDED Quantity: 8.5 gm Days Supply: 25 Refills: 11 Substitutions Allowed Notes from Pharmacy: On Hold Pending Signature Drug: SUMAtriptan (SUMAtriptan 100 mg oral tablet), 1 tab(s) Oral Daily Quantity: 12 tab(s) Days Supply: 0 Refills: 1 Substitutions Allowed Notes from Pharmacy: Dispensed Drug: SUMAtriptan (SUMAtriptan 100 mg oral tablet), TAKE 1 TABLET BY MOUTH DAILY Quantity: 12 EA Days Supply: 12 Refills: 2 Substitutions Allowed Notes from Pharmacy: On Hold Pending Signature Drug: propranolol (propranolol 80 mg oral capsule, extended release), 1 cap(s) Oral Daily Quantity: 30 cap(s) Days Supply: 0 Refills: 1 Substitutions Allowed Notes from Pharmacy: Dispensed Drug: propranolol (propranolol 80 mg oral capsule, extended release), TAKE 1 CAPSULE BY MOUTH DAILY Quantity: 30 cap(s) Days Supply: 30 Refills: 2 Substitutions Allowed Notes from Pharmacy: [facility] 01-23-2024 Note Entered by DYLAN NAILS DO on January 23, 2024 13:46:16 EDT From: MILAN NAILS DO To: [facility] Sent: 01/23/2024 13:46:16 EDT Subject: Medication Management Documented Complete:DULoxetine (DULoxetine 60 mg oral delayed release capsule) Signed by MILAN NAILS DO 01/23/2024 13:46:00 EDT Documented Complete:DULoxetine (DULoxetine 30 mg oral delayed release capsule) Signed by MILAN NAILS DO 01/23/2024 13:46:00 EDT Approved with modifications: DULoxetine (duloxetine 60 mg capsule,delayed release) TAKE 1 CAPSULE BY MOUTH DAILY Qty: 30 cap(s) Days Supply: 30 Refills: 11 Substitutions Allowed Route To Pharmacy - [facility] Patient matched by MILAN NAILS DO on 01/23/2024 13:45:54 EDT From: [facility] To: MILAN NAILS DO Sent: January 23, 2024 12:07:10 PM CDT Subject: Medication Management Due: January 24, 2024 12:08:31 AM CDT On Hold Pending Signature Drug: DULoxetine (DULoxetine 60 mg oral delayed release capsule), TAKE 1 CAPSULE BY MOUTH DAILY Quantity: 30 cap(s) Days Supply: 30 Refills: 10 Substitutions Allowed Notes from Pharmacy: Dispensed Drug: DULoxetine (DULoxetine 60 mg oral delayed release capsule), TAKE 1 CAPSULE BY MOUTH DAILY Quantity: 30 cap(s) Days Supply: 30 Refills: 11 Substitutions Allowed Notes from Pharmacy: [facility] 01-16-2024 Note Entered by DYLAN NAILS DO on January 16, 2024 14:24:31 EDT From: MILAN NAILS DO To: [facility] Sent: 01/16/2024 14:24:31 EDT Subject: Medication Management Documented Complete:omeprazole (omeprazole 20 mg oral delayed release capsule) Signed by MILAN NAILS DO 01/16/2024 14:24:00 EDT Approved with modifications: omeprazole (omeprazole 20 mg capsule,delayed release) TAKE 1 CAPSULE BY MOUTH DAILY Qty: 30 cap(s) Days Supply: 30 Refills: 11 Substitutions Allowed Route To Pharmacy - [facility] Patient matched by MILAN NAILS DO on 01/16/2024 14:24:11 EDT From: [facility] To: MILAN NAILS DO Sent: January 16, 2024 1:19:54 PM CDT Subject: Medication Management Due: January 17, 2024 12:04:51 AM CDT On Hold Pending Signature Drug: omeprazole (omeprazole 20 mg oral delayed release capsule), TAKE 1 CAPSULE BY MOUTH DAILY Quantity: 30 EA Days Supply: 30 Refills: 10 Substitutions Allowed Notes from Pharmacy: Dispensed Drug: omeprazole (omeprazole 20 mg oral delayed release capsule), TAKE 1 CAPSULE BY MOUTH DAILY Quantity: 30 cap(s) Days Supply: 30 Refills: 11 Substitutions Allowed Notes from Pharmacy: [facility] 11-07-2023 Note Entered by DYLAN NAILS DO on November 07, 2023 07:53:45 EST From: MILAN NAILS DO To: [facility] Sent: 11/07/2023 07:53:45 EST Subject: Medication [...] 5 Substitutions Allowed Route To Pharmacy - [facility] Approved with modifications: lisinopril (lisinopril 20 mg tablet) TAKE 1 TABLET BY MOUTH DAILY Qty: 90 tab(s) Days Supply: 90 Refills: 5 Substitutions Allowed Route To Pharmacy - [facility] From: [facility] To: MILAN NAILS DO Sent: November 06, 2023 9:32:22 AM MATRIX INSPECTOR Subject: Medication Management Due: November 07, 2023 12:07:40 AM MATRIX INSPECTOR On Hold Pending Signature Drug: fexofenadine (Leigh [...] Refills: 5 Substitutions Allowed Notes from Pharmacy: [facility] 09-23-2023 Evaluation note Encounter Date Diagnosis Assessment [...] 3 days Sep, Bronchitis (ICD-10 - J40) [facility] Other 11-07-2023 NotePatient Education Materials Follows: Sutured [...] and water are not available, use hand sociology adjunct instructor. ? Change your dressing at least once [...] at home: Medicines ? Take or apply pwzu-bab-htvtgfj and prescription medicines only as told by [...] by your health care provider. (morecontent not included)...[id number] Note Entered by MILAN NAILS DO on June 28, 2023 14:22:45 EDT From: MILAN NAILS DO To: [facility] Sent: 06/28/2023 14:22:45 EDT Subject: Medication Management Submitted: Complete:lisinopril (lisinopril 20 mg oral tablet) Signed by MILAN NAILS DO 06/28/2023 14:22:00 EDT Approved lisinopril (lisinopril 20 mg tablet) TAKE 1 TABLET BY MOUTH DAILY Qty: 90 tab(s) Days Supply: 90 Refills: 0 Substitutions Allowed Route To Pharmacy - [facility] From: [facility] To: MILAN NAILS DO Sent: June [...] Refills: 0 Substitutions Allowed [id number] Note Entered by MILAN NAILS DO on May 24, 2023 07:28:08 EDT From: MILAN NAILS DO To: [facility] Sent: 05/24/2023 07:28:08 EDT Subject: Medication Management Documented Complete:lisinopril (lisinopril 20 mg oral tablet) Signed by MILAN NAILS DO 05/24/2023 07:28:00 EDT Approved lisinopril (lisinopril 20 mg tablet) TAKE 1 TABLET BY MOUTH EVERY DAY Qty: 7 tab(s) Days Supply: 7 Refills: 0 Substitutions Allowed Route To Pharmacy - [facility] Patient matched by MILAN NAILS DO on 05/24/2023 07:27:02 EDT From: [facility] To: MILAN NAILS DO Sent: May [...] Refills: 0 Substitutions Allowed [id number] Evaluation note* Encounter Date Diagnosis Assessment Notes [...] is not contagious from itself or drainage. [employer] Other 05-30-2023 NoteCONSULTATION CONSULTATION DATE: 02/15/2023 TO: [...] the lower extremities. MEDICATION: Current medication includes [place] 5 mg t.i.d. p.r.n. Patient reports it [...] our patients to inform us about any fcrg-zjq-ljmmtqj medications or herbal remedies/nutritional supplements/alternative remedies. 2. [...] treatment options with their primary care provider.[id number] Note CONSULTATION CONSULTATION DATE: 01/06/2023 TO: Dr. [...] our patients to inform us about any eamg-ksv-dkzyurb medications or herbal remedies/nutritional supplements/alternative remedies. 2. [...] treatment options with their primary care provider.[facility] [id number] Note CONSULTATION PROCEDURE DATE: 10/06/2022 PREOPERATIVE DIAGNOSIS: [...] will be followed up in the office.[facility] [id number] NoteCONSULTATION CONSULTATION DATE: 08/26/2022 HISTORY OF PRESENT [...] his muscle relaxer. Our clinic prescribes his [place] 5/325 b.i.d. and diclofenac 75 mg b.i.d. [...] normally does. All questions were answered today.[facility] [id number] NoteCONSULTATION CONSULTATION DATE: 07/22/2022 HISTORY OF PRESENT [...] a cane. He has seen Neurosurgery at [facility] in the past, which they feel, at this time, he is not a surgical candidate and to be managed by Pain Management. He current does see Dr. Galeas at [facility] as well. Activities that aggravate his pain are pulling, sitting, walking, lying down and bending. He will alternate heat and ice which he feels does not make a significant difference. Medications include trazodone 50 mg q.h.s., tizanidine 4 mg b.i.d., Lyrica 50 mg t.i.d., diclofenac 75 mg b.i.d. and [place] 5/325 b.i.d. He does attend pool therapy at the [facility] 2-3 times a week, which he [...] be followed up in the clinic thereafter.[facility] 04-22-2022 NoteCONSULTATION PROCEDURE DATE: 04/22/2022 PRE [...] will be followed up in the office.[facility] [id number] NoteCONSULTATION CONSULTATION DATE: 04/15/2022 This is a [...] mg b.i.d., Lyrica 50 mg b.i.d. and [place] 5/325 b.i.d. He is complaining of trouble [...] is gained for his trigger point injections.[facility] general Narrative - Reported* Type Description Date Medical History HTN (hypertension) Medical History GERD (gastroesophageal reflux di sease) Medical History Chronic pain Medical History Anxiety Surgical History tonsillectomy and adenoidectomy Surgical History ablasion [employer] Other History general Narrative - Reported* Type Description Date Medical History HTN (hypertension) Medical History GERD (gastroesophageal reflux di sease) Medical History Chronic pain Medical History Anxiety Surgical History tonsillectomy and adenoidectomy Surgical History ablasion Surgical History nerve block Surgical History epidural [employer] Other Summary Purpose Family History No Family [...] section and content) DATE CREATED AUTHOR 03/09/[address] [facility] DATE CREATED AUTHOR AUTHOR'S ORGANIZ ATION 01/19/2022 [facility] DATE CREATED AUTHOR AUTHOR'S ORGANIZ ATION 02/25/2023 [facility] DATE CREATED AUTHOR AUTHOR'S ORGANIZ ATION 02/23/2024 [facility] REASON FOR VISIT (unrecogniz ed section and content) Poison jakob on MARGARITA Hay[facility] [employer] FOR RECORDS PERTAINING TO PATIENTS WHO ARE [...] BE BASED ON THE PRIMARY CLINICAL RECORDS. [facility] [employer] [facility]. provides no warranty or guarantee of the accuracy or completeness of information in this document.
--- NOTE | 2024-03-01 07:49 | PM.CN ---
Consult Note: HPI Data of Consult Patient: known to practice within the last 3 years Requesting Physician: Razia Contreras NP Primary Care Provider: GERMANIA NAILS Consult Narrative Reason for consult: f/u Narrative: Riccardo Hlae a pleasant 48 year old male presents for evaluation and management of chronic back pain with radiculopathy. Today rating pain 6/10 bilateral low back radiating to bilateral thighs and lower leg, burning tingling sharp and intermittent numbness. Pain increases to 10/10. Patients symptoms worse with sitting or standing too long, leaning forward decreases pain. Continues to find benefit from medication regimen without side effects. Patient has failed to benefit from greater than 6 weeks PT/provider guided HEP. cc:: CC: Razia Contreras NP Review of Systems ROS Status of ROS 10 or more systems reviewed and unremarkable except as noted in history and below Musculoskeletal Reports: back pain PFSH PFSH Medical History Osteoarthritis ?M19.90 - Unspecified osteoarthritis, unspecified site (ICD-10) Numbness and tingling ?R20.0 - Anesthesia of skin (ICD-10) ?R20.2 - Paresthesia of skin (ICD-10) Obesity ?E66.9 - Obesity, unspecified (ICD-10) Acid reflux ?K21.9 - Gastro-esophageal reflux disease without esophagitis (ICD-10) Former smoker ?Z87.891 - Personal history of nicotine dependence (ICD-10) Sleep apnea ?G47.30 - Sleep apnea, unspecified (ICD-10) High cholesterol ?E78.00 - Pure hypercholesterolemia, unspecified (ICD-10) Hypertension ?I10 - Essential (primary) hypertension (ICD-10) Surgical History History of tonsillectomy and adenoidectomy ?Z90.89 - Acquired absence of other organs (ICD-10) Meds Home Medications and Allergies Home Medications ?Medication ?Instructions ?Recorded ?Confirmed ?Type albuterol sulfate 90 mcg/actuation inhalation Q4H PRN shortness of 03/10/23 History aerosol inhaler breath or wheezing diclofenac sodium 50 mg 50 mg PO BID 03/10/23 08/09/23 History tablet,delayed release duloxetine 30 mg capsule,delayed 30 mg PO QDAY 03/10/23 08/09/23 History release duloxetine 60 mg capsule,delayed 60 mg PO QDAY 03/10/23 08/09/23 History release hydrocodone 5 mg-acetaminophen 325 1 tab PO TID PRN pain 03/10/23 08/09/23 History mg tablet ipratropium 0.5 mg-albuterol 3 mg 3 ml inhalation TID 03/10/23 03/15/23 History (2.5 mg base)/3 mL nebulization soln lisinopril 20 mg tablet 20 mg PO QDAY 03/10/23 08/09/23 History omeprazole 20 mg capsule,delayed 20 mg PO QDAY 03/10/23 08/09/23 History release pregabalin 50 mg capsule (Lyrica) 50 mg PO TID 03/10/23 08/09/23 History tizanidine 4 mg tablet 4 mg PO BID PRN muscle spasticity 03/10/23 08/09/23 History trazodone 50 mg tablet 50 mg PO .hs PRN sleep 03/10/23 08/09/23 History diclofenac sodium 75 mg 75 mg PO BID PRN pain #60 tabs 07/27/23 08/09/23 Rx tablet,delayed release hydrocodone 5 mg-acetaminophen 325 1 tab PO TID PRN pain #75 tabs 12/19/23 Rx mg tablet hydrocodone 5 mg-acetaminophen 325 1 tab PO TID PRN pain #75 tabs 01/19/24 Rx mg tablet hydrocodone 5 mg-acetaminophen 325 1 tab PO TID PRN pain #75 tabs 02/29/24 Rx mg tablet Allergies Allergy/AdvReac Type Severity Reaction Status Date / Time No Known Drug Allergies Allergy Verified 03/15/23 08:23 Exam Constitutional Documenting provider has reviewed patient's vital signs: yes Common normals: no apparent distress, oriented x3, healthy appearing, alert and well nourished General appearance: cooperative Orientation/consciousness: Yes awake, Yes oriented to person, Yes oriented to place and Yes oriented to time Other: uses cane HENMT Common normals: normocephalic, hearing grossly normal bilaterally and moist oral mucous membranes Head and scalp: normocephalic Eye Common normals: PERRL Pupil: PERRL Neck & C-Spine Common normals: full ROM General: normal visual inspection Chest Common normals: inspection of chest normal Respiratory Common normals: normal respiratory effort, no retractions and no use of accessory muscles Effort & inspection: able to speak in complete sentences and symmetric chest movement Back & Pelvis Common normals: thoracic and lumbar spine normal to inspection Lumbar spine/lower back: normal to inspection, ROM limited, pain with ROM, paraspinal muscle tenderness, paraspinal muscle spasm, straight leg raise positive right and straight leg raise positive left Other: positive facet loading bilat positive jo-ann bilat Muscle strength 4/5 bilat with intact sensation bilat LE Extremity Common normals: normal to inspection and full ROM Neuro Common normals: oriented x3, CN's II-XII intact bilaterally, moves all extremities, no focal motor deficits, no sensory deficits noted and deep tendon reflexes 2+ bilaterally Sensorium/orientation: alert Gait (neuro): antalgic and assistive device used cane Motor exam: strength 5/5 throughout and no movement abnormalities noted Psych Common normals: mental status grossly normal, thought process normal, cooperative, affect normal, speech normal and activity/motor behavior normal Speech: normal speech Thought process: normal thought process Results Additional Findings Additional findings: If on a controlled substance or opioids, I have checked an [place] report on this patient and there are no aberrancies noted in the prescribing history.??If on a controlled substance or opioid a drug screen was completed and reviewed within the last year, and if there has not been a drug screen completed we ordered one today to monitor higher risk, state monitored pain medication use. As part of providing excellent, safe, comprehensive care, the following was completed at our patient's visit: 1. A medication reconciliation and review to ensure accurate knowledge of current/active medications, including asking our patients to inform us about any [id number] medications or herbal remedies/nutritional supplements/alternative remedies. 2. A review to specifically ensure our patients have had annual screening for screening for depression, screening for tobacco use, and screening for unhealthy alcohol use. For concerning screenings had a discussion with the patient, provided patient education, and recommended follow-up with primary care provider when appropriate. If patient noted with a risk of falling, they received education on strength, gait, and balance training to prevent future risk of falling. Assessment and Plan Assessment and Plan (1) Chronic prescription opiate use: Assessment and Plan: I have refilled the patient's opioid prescriptions at the above noted dose and schedule.? I feel these medications are improving the patient's quality of life and allow them to tolerate activities of daily living as well as participate in recreational activity.? The patient does not report intolerable side effects. The patient is NOT opioid naive and non-pharmacologic and non-opioid treatment has failed to significantly relieve the patient's pain and improve functionality. The patient has a diagnosis that is related to a somatic or visceral pain etiology. ? ?? I reviewed with the patient the potential risks and side effects with the use of? opioid medications including but not limited to respiratory depression,? sedation, and even . I verified the patient has access to naloxone should? these effects occur. I advised the patient to avoid the use of any other? sedation substances including alcohol, THC, and benzodiazepines while? taking opioid medications due to the risk of compounding side effects and? detrimental outcomes. I reviewed the [employer], pain treatment agreement, urine? drug screen, and opioid start talking forms. The patient was advised to let? their family know they had Naloxone in case they would need to administer? the medication.? ?? A drug screen was completed within the last year, and no aberrancies were noted regarding their use of controlled substances. The patient understands they are subject to the terms and conditions of the pain contract that they have signed. ? ?? I have checked an OARRS report on this patient today and there are no aberrancies noted in the prescribing history.? (2) Lumbar radiculopathy: (3) Lumbar spondylosis: (4) Muscle spasm: (5) Sacroiliac joint pain: Plan update lumbar MRI without contrast in the future as patient continues to have moderate to severe low back pain unresponsive to injection therapy, PT/HEP, and medication therapy continue current medications, tolerating well without side effects not interested in SCS at this time has been deemed nonsurgical by numerous neurosurgeons per pt, could consider referral to Dr Monroe if needed f/u after lumbar MRI
== END 2024-03-01 07:39 | disposition home or self-care (01) ==
PROVIDERS: PCP Family Medicine; Visit Provider Nurse Practitioner
DX: M54.16 Radiculopathy, lumbar region (principal); Z79.891 Long term (current) use of opiate analgesic; M47.816 Spondylosis without myelopathy or radiculopathy, lumbar region; M62.838 Other muscle spasm; M53.3 Sacrococcygeal disorders, not elsewhere classified
CPT/HCPCS: G0463

== ENCOUNTER 2024-03-26 12:25 | Outpatient (OUT) | payer MEDICARE, SELFPAY ==
--- NOTE | 2024-03-26 12:28 | MR_ITS ---
[address] [address] Patient Name: DION ANDRES MRN: [id number] date: 1975 Sex: M Assigned Patient Location: MRI Current Patient Location: MRI Accession/Order Number: [id number] Exam Date: 03/26/2024 12:40 Report Date: 03/26/2024 14:47 At the request of: ABEBA SCHAFFER Procedure: MR lumbar spine wo con EXAMINATION: MR lumbar spine wo con HISTORY: Lumbar Radiculopathy COMPARISON: No relevant comparison available. TECHNIQUE: A variety of imaging planes and parameters were utilized for visualization of suspected pathology. FINDINGS: For the purposes of numbering, sagittal T2 image # 8 extends from the T11 vertebral body superiorly to the S3 level inferiorly. PARASPINAL AREA: Normal with no visible mass. BONES: Normal alignment with no spondylolisthesis. 10% superior wedging of the L1 vertebral body, stable from the prior CT exam, remote injury CORD/CAUDA EQUINA: Normal caliber, contour, and signal intensity. DISC LEVELS: 12-L1: Early degenerative disc disease is present without focal protrusion or neural impingement. L1-L2: No significant disc/facet abnormality, spinal stenosis, or foraminal stenosis. L2-L3: No significant disc/facet abnormality, spinal stenosis, or foraminal stenosis. L3-L4: No significant disc/facet abnormality, spinal stenosis, or foraminal stenosis. L4-L5: Disc space narrowing and disc desiccation. Mild posterior diffuse disc bulge. Ligamentum flavum hypertrophy. No central canal stenosis. Mild right foraminal stenosis. No left foraminal stenosis L5-S1: Disc desiccation. No disc bulge or herniation. Moderate facet osteoarthropathy. No central canal stenosis. Mild right foraminal stenosis . No left foraminal stenosis MR/MR lumbar spine wo con IMPRESSION: Mild degenerative changes with mild right L4-5 and L5-S1 foraminal stenosis Electronically authenticated by: VERONICA SAAB Date: 03/26/2024 14:47
--- OUTSIDE RECORDS SUMMARY | 2024-03-26 12:30 | XMS_ITS ---
Patient Summarization (C-CDA 2.1 CCD) Created on: March 26, 2024 DION ANDRES EDKATARZYNA : 1975 Sex: Male Author Organization Sample organization Care Team Providers Care Ad Compositor Name Role Phone KIRNUS, DALLAS Unavailable Unavailable KIRNUS, DALLAS Unavailable Unavailable CONWAY ., KALI Consulting Unavailable LAKSHMIPATHY ., NARAAYUSHATH Admitting Tiffany vailable HOUSE, DR SOLO Primary Care Unavailable LAKSHMIPATHY ., NARENDOMEGAATH Attending Tiffany vailable LAKSHMIPATHY ., NARENDRANATH Consulting Tiffany vailable LAKSHMIPATHY ., NARENDOMEGAATH Admitting Tiffany [...] DR SOLO Primary Care Unavailable LAKSHMIPATHY ., LENCHOATH Admitting Tiffany vailable HALKER .NATALIYA Consulting Unavailable [...] ., KALI Consulting Unavailable HOY ., DR GONZALZE Primary Care Unavailable GIL ., DR LUCY Maurice Attending Unavailable GIL ., DR LUCY Maurice Admitting Unavailable HOUSE, DR MILAN Consulting Unavailable HOTonny ., DR GONZALEZ Primary Care Unavailable GIL ., DR LUCY Maurice Consulting Unavailable GIL ., DR LUCY Maurice Attending Unavailable GIL ., DR LUCY Maurice Admitting Unavailable CONWAY ., KALI Consulting Unavailable HOUSE, DR SOLO Primary Care Unavailable GIL ., DR LUCY Maurice Attending Unavailable IGL ., DR LUCY Maurice Admitting Unavailable CONWAY ., KALI Consulting Unavailable HOY ., DR GONZALEZ Primary Care Unavailable GIL ., DR LUCY Maurice Attending Unavailable GIL ., DR LUCY Maurice Admitting Unavailable HOUSE, DR SOLO Primary Care Unavailable CONWAY ., KALI Consulting Unavailable LAKSHMIPATHY ., NARENDRANATH Attending Tiffany vailable LAKSHMIPATHY ., NARENDRANATH Admitting Tiffany vailable LAKSHMIPATHY ., NARENDRANATH Consulting Tiffany vailable HOUSE, DR SOLO Primary Care Unavailable Marisol Zelaya Unavailable Abbey Robin Unavailable HOUSE, MILAN Medina Primary Care Unavailable HOUSE, MILAN Medina Attending Unavailable HOUSE, MILAN P Attending Unavailable HOUSE, MILAN P Primary Care Unavailable Kiel Polk MD Attending Unavailable HOUSE, MILAN P Primary Care Unavailable Felicitas RICHARDS, Kiel Remy Attending Unavailable HOUSE, MILAN P Primary Care Unavailable HOUSE, MILAN P Primary Care Unavailable Felicitas RICHARDS, Kiel Remy Attending Unavailable HOUSE, MILAN P Primary Care Unavailable HOUSE, MILAN P Primary Care Unavailable HOUSE, MILAN P Primary Care Unavailable Rashad Bowman Admitting Unavaila ble Rashad Bowman Attending Unavaila ble HOUSE, MILAN P Primary Care Unavailable HOUSE, MILAN P Admitting Unavailable HOUSE, MILAN P Attending Unavailable HOUSE, MILAN P Primary Care Unavailable HOUSE, MILAN P Primary Care Unavailable Encounters Encounter Date Encounter Type Care Provider Facility Start: 02-22-2024 End: 02-22-2024 ambulatory MILAN P HOUSE Facility:[facility] abby Start: 01-23-2024 End: 01-23-2024 ambulatory MILAN P HOUSE Facility:[facility] Cli abby Start: 01-16-2024 End: 01-16-2024 ambulatory MILAN P HOUSE Facility:[facility] Cli abby Start: 01-10-2024 End: 01-10-2024 ambulatory MILAN P HOUSE Facility:[facility] Cli abby Start: 11-24-2023 End: 11-24-2023 ambulatory MILAN P HOUSE Facility:[facility] Cli abby Start: 09-23-2023 End: 09-23-2023 ambulatory Abbey Robin Other [facility] Other Start: 09-23-2023 Office outpatient visit 15 minutes Abbey Robin [facility] Start: 08-24-2023 End: 08-24-2023 ambulatory MILAN P JAQUI Facility:[facility] Start: 08-24-2023 End: 08-24-2023 ambulatory MILAN P HOUSE Facility:[facility] Cli [facility]by Start: 08-15-2023 End: 08-15-2023 ambulatory Kiel Polk MD Facility:[facility] Start: 07-26-2023 End: 07-26-2023 ambulatory Rashad BRADSHAW Facility:[facility] Start: 05-24-2023 End: 05-24-2023 ambulatory MILAN P JAQUI Facility:[facility] Cli abby Start: 05-10-2023 End: 05-10-2023 ambulatory Kiel Polk MD Facility:[facility]by Start: 04-15-2023 End: 04-15-2023 ambulatory Marisol Zelaya Other [facility] Other Start: 04-15-2023 Office outpatient ne w 20 minutes Marisol Zelaya [facility] Start: 02-15-2023 End: 02-16-2023 ambulatory NARENDRANATH LAKSHMIPATHY . Facility:[facility] Start: 02-01-2023 End: 02-01-2023 ambulatory NARENDRANATH LAKSHMIPATHY [...] End: 08-03-[address] LUCY GIL . Facility: Start: 07-22-2022 End: 07-23-[address] LUCY GIL . Facility: Start: 04-22-2022 End: 04-23-[address] LCUY GIL . Facility: Start: 04-15-2022 End: 04-16-[address] LUCY GIL . Facility:[facility] Start: 03-16-2022 End: 03-16-[address] LUCY GIL . Facility: Start: 03-09-2018 Ambulatory [place] KIRN Facility :[id number] Start: 03-08-2018 Ambulatory [place] JAROD Facility :[id number] Medications Current Medications Medication Drug Class(es) Dates Sig (Normalized) Sig (Original) Acetaminophen / HYDROcodone (2 sources) Opioid Agonist take 1 tablet by mouth every six hours as needed [place] 5-325 MG 1 tablet as needed Orally every 6 hrs Active [id number] actuat albuterol 0.09 mg/actuat metered dose [...] 30 Days Active take 1 capsule by [facility] every twenty-four hours DULoxetine HCl 60 MG 1 capsule Orally Once a day Active fexofenadine hydrochloride 60 mg oral tablet (2 sources) Histamine-1 Receptor Antagonist take 1 tablet by mouth every twelve hours Fexofenadine HCl 60 MG 1 tablet Orally Twice a day Active fluticasone propionate 0.05 mg/actuat metered dose nasal spray (1 source) Corticosteroid Start: 09-23-19 24 take 2 spray(s) nasal route once daily [...] M G Oral for 30 Days Active Payers Date Payer Category Payer Medicare [id number] 2.1 [id number] 1975 Unknown [id number] 2.16.84 0.1.950385.3.579.2.593 1975 Unknown [id number] 2.16.84 0.1.391348.3.579.2.593 1975 Unknown [id number] 2.16.84 0.1.843174.3.579.2.593 1975 Unknown [id number] 2.16.84 0.1.936894.3.579.2.593 1975 Unknown [id number] 2.16.84 0.1.799798.3.579.2.593 1975 Unknown [id number] 2.16.84 0.1.770118.3.579.2.593 1975 Unknown [id number] 2.16.84 0.1.883446.3.579.2.593 1975 Unknown [id number] 2.16.84 0.1.877511.3.579.2.593 1975 Unknown [id number] 2.16.84 0.1.035241.3.579.2.593 1975 Unknown [id number] 2.16.84 0.1.955188.3.579.2.593 1975 Unknown [id number] 2.16.84 0.1.173905.3.579.2.593 1975 Unknown [id number] 2.16.84 0.1.997118.3.579.2.593 1975 Unknown [id number] 2.16.84 0.1.287077.3.579.2.593 1975 Unknown [id number] 2.16.8 40.1.954447.3.579.2.71 1975 Unknown [id number] 2.16.8 40.1.532687.3.579.2.71 1975 Unknown [id number] 2.16.8 40.1.922242.3.579.2.71 1975 Unknown [id number] 2.16.8 40.1.302133.3.579.2.71 1975 Unknown [id number] 2.16.8 40.1.540643.3.579.2.71 1975 Unknown [id number] 2.16.8 40.1.249264.3.579.2.718 1975 Unknown [id number] 2.16.8 40.1.522669.3.579.2.718 1960 Medicare [id number] Unknown [id number] Problems Active Problems Problem Classification Problem Date [...] Value Interpretation Reference Range Facility Outside Recordson 03-02-2024 Outside Records [id number] #1.00[facility] Outside Recordson 12-08-2023 Outside Records [id number]#1.00[facility] Outside Recordson 09-28-2023 Outside Records [id number]#1.00[facility] Coding Summaryon 08-25-2023 Coding Summary HTMLBase 64 XbvcsgovUNz4jOj+PGh lYWQ+ZD4PUEOkC17vvC NeeT5gD9IWSSdYLebyU KTJSDsHRaXdxvErHP5x aXNjZXJu IC8+DP2gZJTtWamdwUO sn3P7bPH0D69sqz4cKW tkmCU8YKJnYoPwhyeex 5yojAj2BCgeBstrNkEr VSQnqS16BIS0vB30Sv5 9pQLhrQIkd5bcuLk0Io VjBCSuLLA1sOjqOEdln 3CmDASlZ43jqMUrg1X8 IGNvbGxhcHNlOyBlbXB 4aF6gGOaygohgq5fcyx plWbn1uq71sDFzl9Q1k VE1X6UecuQ3EQMrgAUz WthvrVWJbG3aayyfs0n qgenfXzJlQANoNJx4KU p8WSLehOteCgRhZC05W JW1JKKgiaLbB5HsPARx yAeqAzM2n6C7Ce1JU8E WQjqoB4JGIGKUKPwisH Q+RQ02qn91A8YrOklkI kg7QQYuBNV5rTT8yY0r BYEoVVwjm2F5sMZ4J2K pxpVjkr9hn3omEUNmAL qgU32arXTxn7T8XEOnn BS2HCXgnXylWiLpaH71 Oyc+ZZOqyUjiu8KjTdr ia9zpy7vxnZl1XrktYP GlcuGqiHkqNPG2j9HtQ d4lXUMaqZZ6aSO7jW1c IqUtRhD3HOfjD174EyF clZDoQwllC65yX3RzuQ A+VIOaDxz1PTUasBsqY A8dU0VcSJOjvbtjyCPz wMhsSX0zYGOkogzgDEX zkF4uESHlF6l1BeXlGb H7JAmbN2HyONBwsonfN s56aB5qYrHyKfI2FAmy N7DmucN0SXAvnDPrVIh pPRX2E08id4I5WILeIO VtTQE1mHR4bA9tmBymr jogbGVmdDsgdmVydGlj MJhhILbhX909WSCsiOu nPkNvZGluZyBEYXRlOi AgMTIvMDcvMjAyMzwvd GQ+AERjMTA7xLjjTRIk yIFcSApgDl4goMmtvAh kUW6zEQChhpktUVFraG 0yNJCzhVBcuEwjFY1gC CQcnlnli996IqIwUWM7 YMFviYBkL0MnuR6tBiJ vNLRgIXPvL5NxiPWmSN wmC781JUuuMjM4OROeg yRtW0NaPEIygTcjJfD2 u1U8Nx1Nd5LokgroU2A rpRDiLmPaGudrEWt4Z4 RkPjwvdHI+HX60LGOpI P41KYd9HJX6vKvzGPhz WUQiH6NwwW0wIyLuHQX kZGRkOyc+PHRhYmxlIH dpZHRoPScxMDAlJyBzd BekWM7nHm5bNAXxBEEm xHddjCAiCdDss1hfWFS xLDvjZF4rlXxdR5IedC O6NJNnx0b0Yj93M38zJ 3JvdXA+DSLpsTU5xRR9 jB9qDvNeCcT0YEfqQ46 5XjOrbPTwMxlwr7ssd5 whuPn7XjL0IMXqodOth VmePQX4h0WdKn54O42k IHdpZHRoPSIxNSUiIHZ jmXpvmg3eqI5hYq9+PG SvtYS0vJK7aW9gUfXvF nE6WXvrY729FrIpgVHm Murjo2wcn1qfhIq9QgN cNXWjqdOvlPpwJIK8v3 ClMs16O9TesZayx2QkR sz8jn91yNTcv7T4cGT3 O7LrZHEgyfbqiREffAa hXU8xCCSufkvhSDRtnA 3mBGNgG1j6PySxDgT5I RjfO2PdheZ0SUBthJUq NXBgkARRiI3qrgqhs5w xxvtvFuEbMZFdJAj1SC g3LNKvfFzxHeLsMKT9F sZ9CIY0bLRnaI3vaSdc ymcufG8xAgi+IXE3yRU ggEZHLD7lSrwccLO+PH BrOOI2iSfoPNhaURLon M9oKZLmF5d6PkNzEeM1 YAhkU9LbtzP5CEKyqQC nJAYcxZNUfS2diyaks2 jgcqypGnUlXFGcFJc8O Lr6LIPykOgxOhEiHGV8 GqJ9IGW0pLGaiM1sqJl nmiwfgD8qJgq+QmlydG ihCYJ4HPw7L3YeUdm8K FItkIbqHA5crXCxGItg Wi6kqLnldAhdSL8cYVQ pmbywb264TiNuj3wiVL NogPBdZHssZAP6E96nw 0E0ZGSaSTGaJAB0hZZ8 xB5zzYpovtitvKUlaPt gdmVydGljYWwtYWxpZ2 48JANrxShvJlCdRJq0H 7CwYhi2HHGbrOogBE3y oIMnVAuuNl7glChvgUf rHR6aVRKmamdjb167Tu Tfr0ucLUKcqHLlEVkaE QX9O70if5W9FNFcFJVk DKL0dUJ3aA4uvNygyfl gbGVmdDsgdmVydGljYW faPQgiB338HTLlqOquX aSmfKf6T7UwTuj7GUPe lQwsIJ7tmCNjUKetPy3 qnGeheLqxMO4dTNNikb nwy961GiVut7hgFPMwx FGoZDvpOTE4O15hc8H1 ZELaZNCtSYP8xAD9eD6 hbGlnbjogbGVmdDsgdm TtqEydQTkyZQcnL559I HRvcDsnPlBhdGllbnQg SWxcXCb4Z5KsBcgolZE +VU77VXKtIQ91tSSoeA Jvy8gzcRd8CyYuUMBkY EN7aXlyCQzkv8GjNCZt B56ajLRac9U0KBNweOu xqSLmIsBwsEV4sG5sTY dioopga9wgrcdiAfrua 7ltbz42nB49F02hSFif ZHRoPSIzMCUiIHZhbGl rxt1oqG1pDf8+PGNvbC G1fUV8oB7eEHPrWkI8E IwgO575UnCofCZjVmcm a6afj5jwkNw6BtL0CIP jspCsxBemUPW6f3NePs 46T51gKTjtALGkTXMuG GVaKEOiyFseyc6kzK7z Ii8+EPMutGU8wNR5yP0 cTgBnJwY1DUqsR397Oi AysIViCdgfU70aF9Lbl XA+ZYFuOjk4EFHauXzp IG0kuNGkAPgyYx0wXSA 8PgJvWwMeBPxiR7AmWS NltcsxtlhesPU1YSPsS TPdjX45Vy5pqStaYGKj jZNKsG8oblgmd5pdsbg eCjOoPMOcOKb7ZOc5XX KjrDrxBpGiOWO5AaI1G HE3iLMnvY5qhSqrapps rJ2xS1EfZJApqyqmRe6 3gG4pSlLqRsO5UEwhPo c+C5EKDU4ZIrozR7AMG VVAAOQES1VXVXagjTL+ BTGqKEI5vMfoOTvpDVN buW7tIVAkN0e8QyPlVb K9DXahE4HeOTFoeogjN a93aL4tEeVrDhC4JBxm B6RwtvX9NCEuvKLoUMr oMXL3B90lt2D5NMIpDP IlKZQ3fIW8eD1goDpdf jogbGVmdDsgdmVydGlj FNycDSydO743NBHpgQh oZaPrGeVwWuB4PiD8E5 GfDhf7QXTrzNluIO7ht GXaKYyrDt3jlCrbjEpk QC8lJOAdoegrQFHbcJ0 gBMTqbGRraAglHH9cCY Zazrynw981BeSgJIB0S XCcoRIzE0OgdZ4zNsQu AUHfKQWcG9YsuXKhWHv sM240EHrmGqR7JFEjva LlT9VwEJHnmNovHpN7d 5W1Ta92EZAZKAVdhdfa dGQ+AUWvGVJ6gXmyGYx dBMNdeF9xPBZiY7i1Lb PxLsZ0HFaaR1IuWJFrh dumEo63pX3pMvDvSuB2 YEwjI7IbjaN9FOPwhGD fDElwIQO9D66np0F0ED IhAMJyRQN4zDM8vY9go GlnbjogbGVmdDsgdmVy dMviYXzwFQddE455GND vjGisEo4HSIL0V6GpEa g8NJMpfLliNP7wrKTtS CnhVi5dmSldvGxrAB8t ALHjfusvZKVzwY3qGKL oeLGgqXizON6hNACvnn nqy962OaPrBZM7RJHyr LVgZ3TkmM9iAlNoEXJk KXDjV8HokBXeHFwyA15 0ZHozLsB4VCBklhLuQ0 RxAEAgzMyhThJ9f4U0E h3RLGtbyHJ+PN35dy55 L7NyFilwNkp7REXiQNN 3aCX5dB5rWBZmVMmod0 C3bDB0O0DvfpLkyi1zu 3pzUQRdJEgoO03xgXRk a6W6ZPKlzKX7XCJnrHm vYaQvsU54Zxu+PGNvbG djx0EwPbkqt2lun6cvu Ml4ZoWyVHYazzUyuAto BVS5e1RbTp78W02cBPh pZHRoPSIzMCUiIHZhbG tddt7mjN9pJn8+PGNvb DV6kWL6dX6pSoErMjF5 OMuhB619MgIhrJNrAcw gm7bim7wwkHl1XxEpFE GwprBktGzcRUC5w6FiA x43O2JzqEihe1EoPsb3 wb27tCKud6S8hFQ5W2X hZGRpbmctbGVmdDogMC 3xGKFchmmbEGNxsN8kE UUnY1o8AwQnAmZ7UTzg N6SoqyE0FSRnvEUnHJA maMDXiN7yalmbu5efmy qtXlTiMDAmSIy7ONg9J UYhcAvqTuWyXCV1DaZ4 ZAE4dTIblJ9beOqogsl dnO2kMsx+SQt4x9htrQ DuKA9vkLD9MV33SM64w PSpv8V8mDJ2V9AtAPIr vicxqcujkYJ8YGReRSP vdO26Wc4umZdgVr1jRB EhBSZ1NOGwrEZgP3Ecc C5jLmYaOOWhWOMdV4Gw iOQqSNjnB243NMaiNpH 8EMRirpHfY4NqJHBlfW wyPfE2k8T5Cz7FAI96S J67ZK33hLIji5J9rHD4 N7ZoXPFuzooluhbcdAS 3ICKxUFKdrC77Jq9zrS ifFn8pDENpDCE8FTExb UElS9TcmR0cKtQvSIZs PVBxI9QttCTlADehD34 4WCaqNkK9KBNdoyHpO1 SqXCTbxXsnBsL8q0V7K t3ZAq05BM97UV59jRQd g9V7fML4I5TqIBCzwpo aeroxcPE9QGTrPSMiaB 38Wb5ziZflFp5oVADyN JO1QTJpeEHuV8RvbO4i XgUhXYJiARDpN3RyrPF hUFziK716UPozKkU6RB EfbxZuN0XjOOVaxEfuN hS4r7P3Cf7UVWheytk1 S2MfGvfeuEH+SW42JND bPH61lKKtrWVse9dzoM e4PuInJNElAQF1pYtfH Jtnh1EdDZZjU12myAVq c2U (more content not included)... Normal [facility] .Auto Diff 08-24-2023 Auto [place] % 6 % Normal 09-30 [facility] Comment on above: Performed By: #### 1 [id number], [id number], [id number], 3155191, [id number], 6451685 ####[facility] (DEFAULT)[address] [place] [address] 16342 Baso Abs# 0.1 x10 Normal 0.0-0.2 [facility] Comment on above: Performed By: #### 1 [id number], 11254298, [id number], 6073421, [id number], 0211493 ####[facility] (DEFAULT)[address] [place] [address] 26574 Basophils/100 WBC (Bld) 1.0 % Normal 0.2-2.0 [facility] Comment on above: Performed By: #### 1 [id number], 75765187, [id number], 6291139, [id number], 3777663 ####[facility] (DEFAULT)[address] [place] [address] 92691 Eos Abs# 0.1 x10 Normal 0.0-0.4 [facility] Comment on above: Performed By: #### 1 [id number], 14316761, [id number], 9113539, [id number], 9180705 ####[facility] (DEFAULT)[address] [place] [address] 40553 Eosinophils/100 WBC (Bld) 1.1 % Normal 0.9-4.0 [facility] Comment on above: Performed By: #### 1 6368059, 84856428, [id number], 0996231, [id number], 6762772 ####[facility] (DEFAULT)[address] [place] [address] 67912 Lymph Abs# 2.1 x10 Normal 1.3-2.9 [facility] Comment on above: Performed By: #### 1 2996212, 37159028, [id number], 7505834, 1018107777, 0825188 ####[facility] (DEFAULT)[address] [place] [address] 15763 Lymphocytes/100 WBC (Bld) 26 % Normal 14-48 [facility] Comment on above: Performed By: #### 1 6863425, 22745582, 0437647535, 0546443, 1888258750, 2919314 ####[facility] (DEFAULT)[address] [place] [address] 31183 [place] Abs# 0.5 x10 Normal 0.0-0.8 [facility] Comment on above: Performed By: #### 1 4647414, 13326215, [id number], 6521521, [id number], 3566236 ####[facility] (DEFAULT)[address] [place] [address] 02289 Neut Abs# 5.2 x10 Normal 1.5-9.2 [facility] Comment on above: Performed By: #### 1 [id number], 67724617, [id number], 2574889, 7181917129, 8153714 ####[facility] (DEFAULT)[address] [place] [address] 27774 Neutrophils/100 WBC (Bld) 65 % Normal 44-88 [facility] Comment on above: Performed By: #### 1 [id number], 05523559, 5143747619, 5487905, 7359835057, 5157446 ####[facility] (DEFAULT)[address] [place] [address] CBC w/ Auto Diffon 3 Erythrocyte distribution width (RBC) [Ratio] 13.7 % Normal 11.5-15.0 [facility] Comment on above: Performed By: #### 1 9601606, 90530973, 6808203937, 6895221, 3597852823, 2334356 ####[facility] (DEFAULT)[address] [place] [address] Hematocrit (Bld) [Volume fraction] 45.6 % Normal 34.8-51.9 [facility] Comment on above: Performed By: #### 1 5812451, 33368141, 5827892585, 8687142, 0093539340, 7095860 ####[facility] (DEFAULT)[address] [place] [address] Hemoglobin (Bld) [Mass/Vol] 15.2 g/dL Normal 11.8-17.7 [facility] Comment on above: Performed By: #### 1 4303913, 81971810, 3182760564, 8825568, 1927709778, 0907593 ####[facility] (DEFAULT)[address] [place] [address] Man Diff? Auto Invalid Interpretation Code [facility] Comment on above: Performed By: #### 1 0165528, 97705786, [id number], 0468883, 8429179296, 8415695 ####[facility] (DEFAULT)[address] [place] [address] MCH (RBC) [Entitic mass] 29 pg Normal 24-34 [facility] Comment on above: Performed By: #### 1 1534013, 14525210, 6960605091, 3273868, 1906039203, 3544532 ####[facility] (DEFAULT)[address] [place] [address] 08665 MCHC (RBC) [Mass/Vol] 33 g/dL Normal 26-37 [facility] Comment on above: Performed By: #### 1 6174969, 70037979, 2272721929, 8260487, 6844335130, 6331439 ####[facility] (DEFAULT)[address] [place] [address] 38072 MCV (RBC) [Entitic vol] 88 fL Normal 81-100 [facility] Comment on above: Performed By: #### 1 6151464, 27300983, 3215938761, 3499375, 5677502179, 2967717 ####[facility] (DEFAULT)[address] [place] [address] Platelet 391 x10 Normal 138-427 [facility] Comment on above: Performed By: #### 1 4775589, 80775961, 3571650309, 0460156, 1214877995, 6647157 ####[facility] (DEFAULT)[address] [place] [address] 21824 Platelet mean volume (Bld) [Entitic vol] 8.5 fL Normal 6.3-10.2 [facility] Comment on above: Performed By: #### 1 9476014, 17681162, 5638098610, 4321082, 2339065604, 8570601 ####[facility] (DEFAULT)[address] [place] [address] 67424 RBC 5.19 x10 Normal 3.70-5.30 [facility] Comment on above: Performed By: #### 1 4002263, 21067389, 7566893815, 2740396, 8735508009, 1150723 ####[facility] (DEFAULT)[address] [place] [address] 22112 WBC 8.0 x10 Normal 3.5-10.5 [facility] Comment on above: Performed By: #### 1 8117501, 58007968, 2137982718, 5643318, 2402536162, 8592742 ####[facility] (DEFAULT)[address] [place] [address] 31925 CMP Standardon 08-24-2023 Albumin [Mass/Vol] 4.4 g/dL Normal 3.5-5.0 [facility] Comment on above: Performed By: #### 1 [id number], 30114273, [id number], 2253245, 9995489473, 8875233 ####[facility] (DEFAULT)[address] [place] [address] 77076 Albumin/Globulin [Mass ratio] 1.4 {ratio} Normal 1.4-2.6 [facility] Comment on above: Performed By: #### 1 9438811, 96777815, 5796520772, 6123117, 4404286463, 4445522 ####[facility] (DEFAULT)[address] [place] [address] Alk Phos 60 IU/L Normal 32-91 [facility] Comment on above: Performed By: #### 1 3813818, 09980710, 9148521869, 1153108, 2522005670, 1318212 ####[facility] (DEFAULT)[address] [place] [address] 79603 ALT [Catalytic activity/Vol] 52.0 U/L Normal 17.0-63.0 [facility] Comment on above: Performed By: #### 1 0472093, 16762724, 1751053128, 7688315, 5838878557, 9620567 ####[facility] (DEFAULT)[address] [place] [address] 84612 Anion gap [Moles/Vol] 10.0 mmol/L Normal 5.0-19.0 [facility] Comment on above: Performed By: #### 1 7437852, 24833161, 7653292752, 0740689, 2741520134, 7811392 ####[facility] (DEFAULT)[address] [place] [address] 39389 AST [Catalytic activity/Vol] 32 U/L Normal 15-41 [facility] Comment on above: Performed By: #### 1 6548791, 95125418, 4300661301, 4147156, 0592436220, 7346623 ####[facility] (DEFAULT)[address] [place] [address] 02436 Bili Total 0.9 mg/dL Normal 0.3-1.2 [facility] Comment on above: Performed By: #### 1 9576494, 12585392, 6505889768, 8599717, 8531527954, 2284202 ####[facility] (DEFAULT)[address] [place] [address] Calcium [Mass/Vol] 9.4 mg/dL Normal 8.9-10.3 [facility] Comment on above: Performed By: #### 1 6140853, 11382723, 6713360871, 3769211, 9002422609, 6405480 ####[facility] (DEFAULT)[address] [place] [address] Chloride [Moles/Vol] 109 mmol/L Normal 101-111 [facility] Comment on above: Performed By: #### 1 3688763, 63123097, 0867780163, 8941979, 9675315171, 1971304 ####[facility] (DEFAULT)[address] [place] [address] CO2 [Moles/Vol] 25 mmol/L Normal 21-32 [facility] Comment on above: Performed By: #### 1 9637132, 96259013, 7373704728, 6618057, 1425777412, 5710304 ####[facility] (DEFAULT)[address] [place] [address] Creatinine [Mass/Vol] 0.74 mg/dL Low 0.90-1.30 [facility] Comment on above: Performed By: #### 1 5535750, 05338627, 8359479900, 7207174, 9138806670, 4284336 ####[facility] (DEFAULT)[address] [place] [address] 24310 eGFR AA >60 Invalid Interpretation Code [facility] Comment on above: Performed By: #### 1 4300893, 84432921, 0665314253, 8937208, 5392759216, 6271687 ####[facility] (DEFAULT)[address] [place] [address] eGFR Non AA >60 Invalid Interpretation Code [facility] Comment on above: Performed By: #### 1 8405100, 43504566, 2699005751, 1490730, 7347528793, 9641467 ####[facility] (DEFAULT)[address] [place] [address] 71524 Globulin (S) [Mass/Vol] 3.1 g/dL Normal 1.5-4.3 [facility] Comment on above: Performed By: #### 1 1956096, 20324049, 3943700424, 9875391, 0393609431, 2258199 ####[facility] (DEFAULT)[address] [place] [address] 21761 Glucose [Mass/Vol] 105.0 mg/dL Normal 74.0-118.0 [facility] Comment on above: Performed By: #### 1 3860209, 00763534, 4019722490, 7519180, 5355151841, 5941842 ####[facility] (DEFAULT)[address] [place] [address] 63849 Osmolality 279 mOsm/L Invalid Interpretation Code [facility] Comment on above: Performed By: #### 1 3097727, 89846470, 6599472094, 8289540, 3507086366, 5709409 ####[facility] (DEFAULT)[address] [place] [address] 96477 Potassium [Moles/Vol] 4.0 mmol/L Normal 3.6-5.1 [facility] Comment on above: Performed By: #### 1 4046424, 95721384, 0614207072, 7022300, 0926357599, 7183782 ####[facility] (DEFAULT)[address] [place] [address] 25530 Protein [Mass/Vol] 7.5 g/dL Normal 6.5-8.1 [facility] Comment on above: Performed By: #### 1 0927540, 31794745, 0252653955, 9611463, 3215274510, 1226264 ####[facility] (DEFAULT)[address] [place] [address] Sodium [Moles/Vol] 140.0 mmol/L Normal 136.0-144.0 [facility] Comment on above: Performed By: #### 1 1731898, 95254155, 0199691288, 9426882, 6235597518, 4617522 ####[facility] (DEFAULT)[address] [place] [address] Urea nitrogen [Mass/Vol] 10 mg/dL Normal 8-26 [facility] Comment on above: Performed By: #### 1 3258510, 86510353, 2095516354, 4980344, 9793250729, 5564152 ####[facility] (DEFAULT)[address] [place] [address] Urea nitrogen/Creatinin e [Mass ratio] 13.5 mg/mg Normal 4.6-16.2 [facility] Comment on above: Performed By: #### 1 8531070, 85811421, 8089535147, 1753129, 3384304820, 3069181 ####[facility] (DEFAULT)[address] [place] [address] HgbA1c Standardon 08-24-2023 .Hb 16.6 Invalid Interpretation Code [facility] Comment on above: Performed By: #### 1 8413372, 99163741, 1081709696, 4002121, 5073834439, 1776519 ####[facility] (DEFAULT)[address] [place] [address] .Hgb A1c 0.59 g/dL Invalid Interpretation Code [facility] Comment on above: Performed By: #### 1 5291929, 70791918, [id number], [id number], [id number], [id number] ####[facility] (DEFAULT)[address] [place] [address] Glucose [Mass/Vol] 108 mg/dL Invalid Interpretation Code [facility] Comment on above: Performed By: #### 1 [id number], [id number], [id number], [id number], [id number], [id number] ####[facility] (DEFAULT)[address] [place] [address] HbA1c (Bld) [Mass fraction] 5.4 % Normal 4.6-6.2 [facility] Comment on above: Performed By: #### 1 [id number], [id number], [id number], [id number], [id number], [id number] ####[facility] (DEFAULT)[address] [place], [place] [id number] Reminder Messageson 08-24-20 Reminder Messages -- From: MILAN NAILS DO To: [facility] Clinical Pool ([facility] Sent: 08/24/2023 12:24:35 EST ! Show up: [...] % (14 - 48) 08/24/2023 10:17 Auto [place] % 6 % (1 - 12) 08/24/2023 10:17 Auto Eos % 1.1 % (0.9 - 4.0) 08/24/2023 10:17 Auto Baso % 1.0 % (0.2 - 2.0) 08/24/2023 10:17 Neut Abs# 5.2 x103/mcL (1.5 - 9.2) 08/24/2023 10:17 Lymph Abs# 2.1 x103/mcL (1.3 - 2.9) 08/24/2023 10:17 [place] Abs# 0.5 x103/mcL (0.0 - 0.8) 08/24/2023 10:17 Eos Abs# 0.1 x103/mcL (0.0 - 0.4) 08/24/2023 10:17 Baso Abs# 0.1 x103/mcL (0.0 - 0.2) Patient called and notified of results. Verbalized understanding. [facility] Reminder Messages -- From: MILAN NAILS DO To: [facility] Clinical Pool ([facility]); Sent: 08/24/2023 12:33:59 EST ! Show up: 08/24/2023 12:33:59 EST Subject: Results Follow Up Actions: Call the patient with result(s) Due Date/Time: 08/25/2023 12:33:00 EST Reminder Comments: looks good Results: Date Result Name Value Ref Range 08/24/2023 10:17 Estimated Avg Glucose 108 mg/dL 08/24/2023 10:17 Hgb A1c % 5.4 % (4.6 - 6.2) Patient called and notified of results. Verbalized understanding. Normal [facility] T4, Totalon 08-24-2023 T4 [Mass/Vol] 9.52 ug/dL Normal 6.09-12.23 [facility] Comment on above: Performed By: #### 1 [id number], [id number], [id number], [id number], [id number], [id number] ####[facility] (DEFAULT)[address] 08-24-2023 TSH Qn 1.11 m[IU]/L Normal 0.45-5.33 [facility] Comment on above: Performed By: #### 1 [id number], [id number], [id number], [id number], [id number], [id number] ####[facility] (DEFAULT)[address] [id number] Coding Summaryon 08-02-2023 Coding Summary HTMLBase 64 EwxbavzfPQe0gYs+PGh lYWQ+OV9FGPYrP19buY CjmW4pH7RNXIvGSrjmT EBBEUxWNfPphlPkZN4i aXNjZXJu IC8+PK6bYMBsMhpreAE vp4Q2xOI6Q47zqi3uHH ffyEN3LFGrXyManbrre 3snmOq4KObkDluqFjWn GLFixU60DMS7pG73Yz3 7tLAktCPuf4ourWi3Nu MlGPBmOJT2oDcvMSnon 6DgADQuQ04koLBtr7F6 IGNvbGxhcHNlOyBlbXB 6eF5wQHapatkjh6hbjj urSlf6qq34oKZkt3N8k QJ8L1RrvhN0LFHoqGMo YrayrQRMaA7dxtwnn3a ryhmgVfCdHEIkQNr4PD e7NXBauAsgXdPeML55F ZE1OSZieuUqC2NeXKLu uBtuOgS6p2A9Qu2YV6D IJabwQ9CNABRNPXneaI Q+VI73io99S8GeEipsL mg4SYWvGWP8xUR0zS3y ORNhTPuqg7B8rIM0F5U zrbCibd8io4snBUSyIT qaD13faIItz4I2LJSzr TV5HZLvvEajTjXchG45 Oyc+RVTlpVmcd0JuNha ht6rih2urmXm0JplfNG OqdlHyjDdxPMZ5h2AyS r2yBQWnoOT7dDH8vT7p QaXmOzB4FMkvD514UpC jjQZfLqunY14aZ4EvrC A+KPCsIto2PMGnpLddM A7uJ9PjTLYgvrnuoVZx fOffZG4sDPAqcwztEPH ngU4pJOAqZ3u8BmRiQe P1CItyI7NoHGRhnucoY v15xQ2bWhNkBcY1HFly O7LmtoJ4RFPktEEkFBl wNCR3K14lv3I7MVDiEW QjWSN1nLQ5yH4rnHrlb jogbGVmdDsgdmVydGlj MLvlKQkvI632MOTomVj nPkNvZGluZyBEYXRlOi AgMTEvMTQvMjAyMzwvd GQ+PLHoINB6sKjfRJSb aKDqPDtqRr2pwYymrOh ePP9iLHEwitomZNSciO 3xIBLcqDHwpYwcXE8tY XZqhbkco892GtErKPM3 PIQtqLVzU0MdhT2lUqW jTCJsGSFiV0BnoVXbMW mhV954KWbiDeF3DGUbd wFeX1AwSHDwnPkjZrK3 y5K4Zz8Vi0TmojgxT3J thNEyEgMwGriwNBz3F3 RkPjwvdHI+JJ97JVFqC Z76WEu4HXW3aDvzCDau SPMfV9SggG1cXiEaVWU kZGRkOyc+PHRhYmxlIH dpZHRoPScxMDAlJyBzd OmuDE5vRa0fBSNwNTWe yRworFVzHiMvh9gnFGX nDUgtCB7grMdzK0UjeR S0KWFaz7j5Uo42D43xK 3JvdXA+YGDwcTM1aUK9 oM1xIeOoFhD0DBlrS32 9KjRdxOGnAeird6fnv5 ulcNp6KuZ1UBWwlsDeq IllRXK5z7OmOb13R81x IHdpZHRoPSIxNSUiIHZ utXknxs8cqM2uEu2+PG JgvMN0lCC4oG8fHwJqY oQ2QBjzC402IhKpqDQe Iashp1afv4mlvVy0FvF cARHecqQmpZqeNHQ6u6 IeJu67G3EeeFtht3YbE yo4oh68vRDoh6B4pYJ1 D6NpKRBuetczsOEshNv hHI7sIWNwpcsuKGTrlS 2qPLCmS6y5AjCwTaG6U VoeY2AdmsD7DEXroPYp NEVktULEdA6hdhazf5e hbnjqEeCdCACkWSz6OH b7PVKxpLipWwSfQGJ0V yB8YZH8mNBywM0qfZds mozroX9aCbo+QGE6eHV gcRJPIV1mHfupgXZ+PH BeKIR5cPbxCDdbQIFcc T0eYWFvV8p5OqLiImI2 NSxjW2DlpnY5CKXjjRJ lZSBfmLQKrZ5grfvgd9 ltwggiLvOfWCNoHVg4I Vw5UVOwwKfhZeAeWUV1 TvW8WOU3vNNtiW6gmSa krzbepM3gCxg+QmlydG iaQZH2MSd3H7UgTrb2M OVbkQviEP5asFBlRChf Xr7aoTdliNnpYM1eOZI srllcx834JcEug8ugBL DwqKQnRQwgIQX1V76ai 1L6DHKfSSEtMES4vDM4 oS9keKgqqwtyvBAtyIi gdmVydGljYWwtYWxpZ2 05RKIsrJwxQbVcYUv5T 4FcIie4RGDvmUwkHU3m zFBwIOznIj6zvPsyfNh aEG7sHMFmvwact593Eq Bxp9duHDUwqNXtGOufI LU9M25cm2T1XZGzHBJl AWO3qJB4iX3thOwxhea gbGVmdDsgdmVydGljYW agRZsbY546SUDtzBhxO xRomEr2W0YjUzp4QSBz hTviCD2bkYPhCFzsHo1 qgZujeQyzYS8mTYPsim sen566PfUlv3riHFAmp JRrGOaqJNV0U83yc9W3 ETTxAFPeGKT3yDZ9vY7 hbGlnbjogbGVmdDsgdm VpzBkdLIziBUoaI883D HRvcDsnPlBhdGllbnQg QZlbAVt6R6OaZrwogRT +DT43TAYnJS77hDPfdZ Fvl1vvoMz7HtQbEJIzP CV6kSsjABgkb3MzAEOq T08pmPEmk1L1BGAdfOu xpVWgIeCytOT8mZ1kRQ ondzpwf9bfflalHacry 3rcnq07bW06T05tFVys ZHRoPSIzMCUiIHZhbGl xtv7dhL3mXn3+PGNvbC M8sHX8cS7rFVMdOpL5N GjqR836BrPksSJbExxs j7eft6rwxEn3UoL0SKI wmgOxfUfeRUL7r2ArKz 89B58qTAtwMAZaMRGnC DAbAMKgcSgwph5jaL4q Ii8+WHVdiEO7uZI4gP1 jJeUtSrE6EQieS379Nx JvxTJyYgdbK82bI5Vpy XA+MMOqSdz5ZQSztCox KN2dpLKhRFudRq2iGWE 8YtYjZzEwZJymS6CqNM ZffizrlqvkcUA9LWFuT IMvuH54Lv3jtGsdRGQg fKYRrC9kqckpx6xohhm fPjZiAWBuPVm3KGd9PF UjoGmpVjFzLJC0GcX7G QK9sOVyiD6jwXnhxjjx hF5vZ5FlJMZcdjvnBf2 2kJ2iRjZuUsU9SFrjWy c+W4EBWH1PAtfhZ0MME KNOBRBWD0EJEQighLC+ FHEfMOQ6pHohZTogLHJ dgP7pWNYeG8f2EbHpNa D6MWgwZ0PdJZHfxyhbC a61lH7nNkJzOaH7BKnv R7KvjiZ0NYEukRWdMXm zEOG1S74mi6J8SOUbJJ XtXQU8rFC1pK5unCpho jogbGVmdDsgdmVydGlj QCqbULmoX906GTLccSt mFbPoStDzNjS5TfX7R5 ZsHcu5LOBeuCksUN8mk VBiITzkAw6alEnmuBgp ZW4qNBJspazrPPTyvM8 kEXMrfQPycHssFB1gDR Dgqjbqk146WpBrXVG6L WRzmWGeE0ZucX6tQjEf QRVeLFGsI1VmvCIoSKj dA813FRhlRkU2EYFext VxR3LsBIRldGhzBrP9m 3V3Vt24WRCREPVxltns dGQ+CJPaYQY8xZoiIHx dDRRxuS0dQPDeI0c2Mq GkYaD3QDawE3UqBQOge sihKl35fS8aMoUhKsK7 CLjeT2DpraK6RSPdtKW jOWoaBXF9T50mw7P4FH BpAHZcBAW1dRO8mU5qy GlnbjogbGVmdDsgdmVy cFduCRllRXdaZ650PPI hbMhmCr7YNXT6L7RqFt b0ASEtwPsfIG1plPIiT LmoHz8dmFrzkJywIE6n NXHhobyzAESltJ5hKZL ktKVbjIwlXD1aKGWgto hvn201XjIyQSE6MSXyf VOvB5BfpA8dUsCxWOOs YLNeS1BdeYLtPRzgC27 1LLdrEqZ1WXIllrRnL8 QxGYQlfKnpByQ5x2F0F u3AFEqqcXR+VM28nd76 P2MiFyftUwh2VJCmUFI 2pGJ1dN1kUVAyNQwua6 M6jPM9C8VwerAgss8fl 6wbJJTzWGjaN59alWVw z3D4JLKacBA7MVAojPr pOxKqmO16Fjo+PGNvbG nma8BxQhhil0weo3adf Gk3CnPwJVDldrYcvOhq LGB1s5CnDl28S00qNLg pZHRoPSIzMCUiIHZhbG pcjf1ekL8aAg4+PGNvb LW2vXR7hU7kZuJzCjP4 HEpkH727JjEgnRMuPge zs6foj4ymvCt9EkZeTV SdmqDtvUhmHUY4r5UfS y76H1OymDwex4HkYqd5 bm11uPUbo4K6tHL3H2W hZGRpbmctbGVmdDogMC 1eWCKmfmktOCEdwN8zM BBdQ7h4NzJdZkF7XWwk N9OgxkR1VUJfoTDiFDI zlKVHhV1cgejxc1tjpc wuSlWeUKDdFRz4MEy4Q MKfsFroExOwLEK7TiX8 KGJ0lPAegR0lbHutrgx wtB3pVrs+WCy9d8rfxJ GeVA2beOC1SD39NC93p EShi1Y9uFI4S4BwCGAj ajlakteojEF9FNHmAYJ leP53Ee8kaKauAv6qVS TbFXE5PMItbOVwN8Vlb F3zOxGpCUJtCLZuW7Qe hDBgJMrsN573NWbgZaA 4HHNwotCmZ1RhHJQtoF arLeC8f0M9Md9IOM19Q N07UA74wTNzn9W9mIR0 Q6YjLKVjshuawienkNO 5YLYtIAErmX15Fi3hwF qhKg0zZXVmVQI8HBMis EXjK7YbdU8kWzHaOVPc MCYnG4ZsePSpPWttP49 4KDizJvO6RZYvfuExK4 ZgAIDzfAnlXsG4n2F8H o2TQu69VF16UP71dBMg s7J5zPC7C5IbWPHoxmj prmzmaDK4RMFeLYDzoQ 03Eq1pnEmoDr6dQJHcL TM8IUIczHGpI4AxkX8z FnVmEARmVMPjF8YbnNG qPAhaJ027GIsrKfG7PH OvynNuO9IvTEDoqWbeH gZ3f0G5Os2SEQegqra5 R0AkLmgptMI+OD79ZSH wIU86wXYwfDLle3crdS u3RdQrRIBfMBR6uXrtY Fpcg2IeCFPdZ93xnTJc c2U (more content not included)... Normal [facility] ED Clinical Summaryon 2022 ED Clinical Summary [facility] ? Urgent Care [address] [place], [place] [id number] Clinical Summary PERSON INFORMATION Name: DION ANDRES Age: 47 Years Sex: MALE : 1975 MRN: Acct#: Visit Reason: UC - Laceration; LACERATION ON LEFT HAND Arrival: 07/26/2023 15:38:23 Discharge: 07/26/2023 17:27:00 LOS: 000 01:49 Check In: 07/26/2023 15:38:23 Checkout: 07/26/2023 17:27:00 Address: [address] [place] [id number] PCP: MILAN NAILS DO PROVIDER INFORMATION Provider [...] Follow-Up: With: Address: When: MILAN NAILS DO [address] [place] [address] Within 3 to 5 days Comments: Diagnosis [...] wound to hand Patient Understands: Yes - Patient/family/hearing care professional verbalizes understanding of instructions given Comment: Normal [facility] ED Patient Summaryon 023 ED Patient Summary [facility] ? Urgent Care [address] [place] [address] PATIENT DISCHARGE INSTRUCTIONS Patient Information Name: DION ANDRES Age: 47 Years Date of : 1975 Reason For Visit: UC - Laceration; LACERATION ON LEFT HAND Arrival Time: 07/26/2023 15:38:23 Primary Care Physician: MILAN NAILS DO Attending Physician: Rashad Bowman Comment: Patient Education With: Address: When: MILAN NAILS DO [address] [place] [address] Within 3 to 5 days Comments: Diagnosis [...] and water are not available, use hand emissions testing technician. ? Change your dressing at least once [...] at home: Medicines ? Take or apply evew-fxf-rswqhgg and prescription medicines only as told by [...] is impor (more content not included)... Normal [facility] Urgent Care [place] 023 Urgent Care Record [facility] ? Urgent Care [address] [id number] PATIENT DISCHARGE INSTRUCTIONS Patient Information Name: DION ANDRES Age: 47 Years Date of : 1975 [facility]: [id number] Reason For Visit: UC - Laceration; LACERATION ON LEFT HAND Arrival Time: 07/26/2023 15:38:23 Primary Care Physician: MILAN NAILS DO Attending Physician: Rashad Bowman Comment: Visit Diagnosis: Diagnoses This Visit Puncture wound to hand (S61.439A) UC - Laceration ([id number]) If you received any narcotics, sedation, or [...] documents With: Address: When: MILAN NAILS DO [address] [place] [address] Within 3 to 5 days Comments: Diagnosis [...] and treatment you received today in the [facility] Urgent [facility] were for an urgent problem and are not intended as complete care. It is important for you to follow up with a doctor, nurse practitioner, or physician?s stylist assistant for ongoing care. If your symptoms [...] so we can reach you if necessary. [facility] has provided you with a complete list of medications post discharge. Please inform your wedger machine/provider of your visit and for further instruction on these medications. Any specific questions regarding your chronic medications and dosages should be discussed with your primary care physician(s) and/or pharmacist. New Medications [facility], [address], [place] [id number], [phone] amoxicillin-clavula ld (amoxicillin-clavul anate 875 mg-125 mg [...] delayed release capsul (more content not included)... [facility] XR Hand Complete Lefton 11-0 XR Hand [...] DO 07/26/23 4:50 pm Technologist: Joseph STEPHENS [facility] Outside Recordson 06-07-2023 Outside Records [id number] [facility] Patient Handout [id number] 25[facility] [id number] 45[facility] LUMBAR SPINE 6 OR MORE [facility] 01-14-2022 LUMBAR SPINE 6 OR MORE [facility] Department of Radiology [address] [place] [id number] Patient Name: DION ANDRES : 1975 [...] , Ordering Provider - A JER MSN RADIOLOGY SERVICES MANAGER , Exam: LUMBAR SPINE 6 OR MORE [...] radiographically. Electronically signed: Rashad Adler. Transcribed by: [email or web address], User Resident: Electronically Signed by: RASHAD Delma ADLER @ 01/15/2022 11:40 AM Normal [facility] Comment on above: Order Comment: , ap, lat, flex, ex, obliques, r/o instability or pars defect , Views (X-RAY, LUMBAR SPINE): AP, Lateral, L5-S1 Spot, Obliques, Flexion, Extension , ap, lat, flex, ex, obliques, r/o instability or pars defect , Views (X-RAY, LUMBAR SPINE): AP, Lateral, L5-S1 Spot, Obliques, Flexion, Extension , , , Ordering Provider - Sherice LOPEZ RADIOLOGY SERVICES MANAGER , Social History Date Type Detail Facility Unknown if ever smoked [facility] Other Sex Assigned At Sex Assigned At Bir th [facility] Other Vital Signs Date Time Vital Sign Value Performing Clinician Facility 09-23-2023 10:05-0500 Body height Abbey Robin Other [facility] Other 09-23-2023 10:05-0500 Body mass index (BMI) [Ratio] 44.21 kg/m2 Abbey Robin Other [facility] Other 09-23-2023 10:05-0500 Body temperature 98.6 [degF] Abbey Robin Other [facility] Other 09-23-2023 10:05-0500 Body weight 135.81 kg Abbey Robin Other [facility] Other 09-23-2023 10:05-0500 Diastolic blood pressure 82 mm[Hg] Abbey Robin Other [facility] Other 09-23-2023 10:05-0500 Respiratory rate 18 /min Abbey Robin Other [facility] Other 09-23-2023 10:05-0500 SaO2% (BldA) [Mass fraction] 95 % Abbey Robin Other [facility] Other 09-23-2023 10:05-0500 Systolic blood pressure 152 mm[Hg] Abbey Robin Other [facility] Other 04-15-2023 10:30-0400 Body height Marisol Zelaya Other [facility] Other 04-15-2023 10:30-0400 Body mass index (BMI) [Ratio] 45.33 kg/m2 Marisol Zelaya Other [facility] Other 04-15-2023 10:30-0400 Body temperature 97.6 [degF] Marisol Zelaya Other [facility] Other 04-15-2023 10:30-0400 Body weight 139.26 kg Marisol Zelaya Other [facility] Other 04-15-2023 10:30-0400 Diastolic blood pressure 80 mm[Hg] Marisol Zelaya Other [facility] Other 04-15-2023 10:30-0400 Respiratory rate 18 /min Marisol Zelaya Other [facility] Other 04-15-2023 10:30-0400 SaO2% (BldA) [Mass fraction] 98 % Marisol Zelaya Other [facility] Other 04-15-2023 10:30-0400 Systolic blood pressure 125 mm[Hg] Marisol Zelaya Other [facility] Other Clinical Notes 04-15-2022 to 02-22-2024 Note Date & Type Note Facility 02-22-2024 Note Entered by DYLAN NAILS DO on February 22, 2024 11:51:43 EDT From: MILAN NAILS DO To: [facility] Sent: 02/22/2024 11:51:43 EDT Subject: Medication [...] 25 Refills: 5 Substitutions Allowed Route To [facility] Approved SUMAtriptan (sumatriptan 100 mg tablet) TAKE 1 TABLET BY MOUTH DAILY Qty: 12 EA Days Supply: 12 Refills: 2 Substitutions Allowed Route To [facility] Approved with modifications: propranolol (propranolol ER 80 mg capsule,24 hr,extended release) TAKE 1 CAPSULE BY MOUTH DAILY Qty: 30 cap(s) Days Supply: 30 Refills: 5 Substitutions Allowed Route To [facility] Patient matched by MILAN NAILS DO on 02/22/2024 11:50:58 EDT From: [facility] To: MILAN NAILS DO Sent: February [...] Refills: 2 Substitutions Allowed Notes from Pharmacy: [facility] 01-23-2024 Note Entered by DYLAN NAILS DO on January 23, 2024 13:46:16 EDT From: MILAN NAILS DO To: [facility] Sent: 01/23/2024 13:46:16 EDT Subject: Medication [...] 11 Substitutions Allowed Route To Pharmacy - [facility] Patient matched by MILAN NAILS DO on 01/23/2024 13:45:54 EDT From: [facility] To: MILAN NAILS DO Sent: January [...] Refills: 11 Substitutions Allowed Notes from Pharmacy: [facility] 01-16-2024 Note Entered by DYLAN NAILS DO on January 16, 2024 14:24:31 EDT From: MILAN NAILS DO To: [facility] Sent: 01/16/2024 14:24:31 EDT Subject: Medication Management Documented Complete:omeprazole (omeprazole 20 mg oral delayed release capsule) Signed by MILAN NAILS DO 01/16/2024 14:24:00 EDT Approved with modifications: omeprazole (omeprazole 20 mg capsule,delayed release) TAKE 1 CAPSULE BY MOUTH DAILY Qty: 30 cap(s) Days Supply: 30 Refills: 11 Substitutions Allowed Route To Pharmacy - [facility] Patient matched by MILAN NAILS DO on 01/16/2024 14:24:11 EDT From: [facility] To: MILAN NAILS DO Sent: January [...] Refills: 11 Substitutions Allowed Notes from Pharmacy: [facility] 11-07-2023 Note Entered by DYLAN NAILS DO on November 07, 2023 07:53:45 EST From: MILAN NAILS DO To: [facility] Sent: 11/07/2023 07:53:45 EST Subject: Medication [...] 5 Substitutions Allowed Route To Pharmacy - [facility] Approved with modifications: lisinopril (lisinopril 20 mg tablet) TAKE 1 TABLET BY MOUTH DAILY Qty: 90 tab(s) Days Supply: 90 Refills: 5 Substitutions Allowed Route To Pharmacy - [facility] From: [facility] To: MILAN NAILS DO Sent: November 06, 2023 9:32:22 AM WATCH DIAL STONER Subject: Medication Management Due: November 07, 2023 12:07:40 AM WATCH [employer]IAL [employer] On Hold Pending Signature Drug: fexofenadine (Leigh [...] Refills: 5 Substitutions Allowed Notes from Pharmacy: [facility] 09-23-2023 Evaluation note Encounter Date Diagnosis Assessment [...] 3 days Sep, Bronchitis (ICD-10 - J40) [facility] Other 11-07-2023 NotePatient Education Materials Follows: Sutured [...] and water are not available, use hand emissions testing technician. ? Change your dressing at least once [...] at home: Medicines ? Take or apply gxuu-cxy-rctqtlc and prescription medicines only as told by [...] by your health care provider. (morecontent not included)...[id number] Note Entered by MILAN NAILS DO on June 28, 2023 14:22:45 EDT From: MILAN NALIS DO To: [facility] Sent: 06/28/2023 14:22:45 EDT Subject: Medication Management Submitted: Complete:lisinopril (lisinopril 20 mg oral tablet) Signed by MILAN NAILS DO 06/28/2023 14:22:00 EDT Approved lisinopril (lisinopril 20 mg tablet) TAKE 1 TABLET BY MOUTH DAILY Qty: 90 tab(s) Days Supply: 90 Refills: 0 Substitutions Allowed Route To Pharmacy - [facility] From: [facility] To: MILAN NAILS DO Sent: June [...] Refills: 0 Substitutions Allowed [id number] Note Entered by MILAN NAILS DO on May 24, 2023 07:28:08 EDT From: MILAN NAILS DO To: [facility] Sent: 05/24/2023 07:28:08 EDT Subject: Medication Management Documented Complete:lisinopril (lisinopril 20 mg oral tablet) Signed by MILAN NAILS DO 05/24/2023 07:28:00 EDT Approved lisinopril (lisinopril 20 mg tablet) TAKE 1 TABLET BY MOUTH EVERY DAY Qty: 7 tab(s) Days Supply: 7 Refills: 0 Substitutions Allowed Route To Pharmacy - [facility] Patient matched by MILAN NAILS DO on 05/24/2023 07:27:02 EDT From: [facility] To: MILAN NAILS DO Sent: May [...] Refills: 0 Substitutions Allowed [id number] Evaluation note* Encounter Date Diagnosis Assessment Notes [...] is not contagious from itself or drainage. [facility] Other 05-30-2023 NoteCONSULTATION CONSULTATION DATE: 02/15/2023 TO: [...] the lower extremities. MEDICATION: Current medication includes [place] 5 mg t.i.d. p.r.n. Patient reports it [...] our patients to inform us about any mrdk-mfk-mteozxb medications or herbal remedies/nutritional supplements/alternative remedies. 2. [...] treatment options with their primary care provider.[id number] Note CONSULTATION CONSULTATION DATE: 01/06/2023 TO: Dr. [...] our patients to inform us about any zwzi-mve-jnwooec medications or herbal remedies/nutritional supplements/alternative remedies. 2. [...] treatment options with their primary care provider.[id number] Note CONSULTATION PROCEDURE DATE: 10/06/2022 PREOPERATIVE DIAGNOSIS: [...] will be followed up in the office.[id number] NoteCONSULTATION CONSULTATION DATE: 08/26/2022 HISTORY OF PRESENT [...] his muscle relaxer. Our clinic prescribes his [place] 5/325 b.i.d. and diclofenac 75 mg b.i.d. [...] normally does. All questions were answered today.[facility] [id number] NoteCONSULTATION CONSULTATION DATE: 07/22/2022 HISTORY OF PRESENT [...] a cane. He has seen Neurosurgery at [facility] in the past, which they feel, at this time, he is not a surgical candidate and to be managed by Pain Management. He current does see Dr. Galeas at [facility] as well. Activities that aggravate his pain are pulling, sitting, walking, lying down and bending. He will alternate heat and ice which he feels does not make a significant difference. Medications include trazodone 50 mg q.h.s., tizanidine 4 mg b.i.d., Lyrica 50 mg t.i.d., diclofenac 75 mg b.i.d. and [place] 5/325 b.i.d. He does attend pool therapy at the [facility] 2-3 times a week, which he feels [...] be followed up in the clinic thereafter.[facility] 04-22-2022 NoteCONSULTATION PROCEDURE DATE: 04/22/2022 PRE [...] will be followed up in the office.[facility] [id number] NoteCONSULTATION CONSULTATION DATE: 04/15/2022 This is a [...] mg b.i.d., Lyrica 50 mg b.i.d. and [place] 5/325 b.i.d. He is complaining of trouble [...] is gained for his trigger point injections.[facility] general Narrative - Reported* Type Description Date Medical History HTN (hypertension) Medical History GERD (gastroesophageal reflux di sease) Medical History Chronic pain Medical History Anxiety Surgical History tonsillectomy and adenoidectomy Surgical History ablasion [facility] Other History general Narrative - Reported* Type Description Date Medical History HTN (hypertension) Medical History GERD (gastroesophageal reflux di sease) Medical History Chronic pain Medical History Anxiety Surgical History tonsillectomy and adenoidectomy Surgical History ablasion Surgical History nerve block Surgical History epidural [facility] Other Summary Purpose Family History No Family [...] section and content) DATE CREATED AUTHOR 03/09/2018 [facility] DATE CREATED AUTHOR AUTHOR'S ORGANIZ ATION 01/19/[address] [facility] DATE CREATED AUTHOR AUTHOR'S ORGANIZ ATION 02/25/2023 [facility] DATE CREATED AUTHOR AUTHOR'S ORGANIZ ATION 03/03/2024 [facility] REASON FOR VISIT (unrecogniz ed section and content) Poison jakob on MARGARITA Haynes FOR RECORDS PERTAINING TO PATIENTS WHO ARE [...] BE BASED ON THE PRIMARY CLINICAL RECORDS. test company [facility]. provides no warranty or guarantee of the accuracy or completeness of information in this document.
== END 2024-03-26 12:26 | disposition home or self-care (01) ==
LOC: MRI 12:25
PROVIDERS: PCP Family Medicine; Visit Provider Nurse Practitioner
DX: M54.16 Radiculopathy, lumbar region (principal); M48.062 Spinal stenosis, lumbar region with neurogenic claudication
CPT/HCPCS: 72148

== ENCOUNTER 2024-04-04 15:31 | Outpatient (OUT) | payer MEDICARE, SELFPAY ==
--- NOTE | 2024-04-04 15:36 | PM.CN ---
Consult Note: HPI Data of Consult Patient: known to practice within the last 3 years Requesting Physician: Razia Contreras NP Primary Care Provider: GERMANIA NAILS Consult Narrative Reason for consult: f/u Narrative: Riccardo Hale a pleasant 48 year old male presents for evaluation and management of chronic back pain with radiculopathy. Today rating pain 6/10 bilateral low back radiating to bilateral thighs and lower leg, burning tingling sharp and intermittent numbness and pain of bilateral hands RUE. Pain increases to 10/10. Patients symptoms worse with sitting or standing too long, leaning forward decreases pain. Continues to find benefit from medication regimen without side effects. Patient has failed to benefit from greater than 6 weeks PT/provider guided HEP. Recent lumbar MRI as noted below. Pain most significant in left low back radiating into left foot. cc:: CC: Razia Contreras NP Review of Systems ROS Status of ROS 10 or more systems reviewed and unremarkable except as noted in history and below Musculoskeletal Reports: back pain, neck pain and extremity pain PFSH PFSH Medical History Osteoarthritis ?M19.90 - Unspecified osteoarthritis, unspecified site (ICD-10) Numbness and tingling ?R20.0 - Anesthesia of skin (ICD-10) ?R20.2 - Paresthesia of skin (ICD-10) Obesity ?E66.9 - Obesity, unspecified (ICD-10) Acid reflux ?K21.9 - Gastro-esophageal reflux disease without esophagitis (ICD-10) Former smoker ?Z87.891 - Personal history of nicotine dependence (ICD-10) Sleep apnea ?G47.30 - Sleep apnea, unspecified (ICD-10) High cholesterol ?E78.00 - Pure hypercholesterolemia, unspecified (ICD-10) Hypertension ?I10 - Essential (primary) hypertension (ICD-10) Surgical History History of tonsillectomy and adenoidectomy ?Z90.89 - Acquired absence of other organs (ICD-10) Meds Home Medications and Allergies Home Medications ?Medication ?Instructions ?Recorded ?Confirmed ?Type albuterol sulfate 90 mcg/actuation inhalation Q4H PRN shortness of 03/10/23 History aerosol inhaler breath or wheezing duloxetine 30 mg capsule,delayed 30 mg PO QDAY 03/10/23 08/09/23 History release duloxetine 60 mg capsule,delayed 60 mg PO QDAY 03/10/23 08/09/23 History release hydrocodone 5 mg-acetaminophen 325 1 tab PO TID PRN pain 03/10/23 08/09/23 History mg tablet ipratropium 0.5 mg-albuterol 3 mg 3 ml inhalation TID 03/10/23 03/15/23 History (2.5 mg base)/3 mL nebulization soln lisinopril 20 mg tablet 20 mg PO QDAY 03/10/23 08/09/23 History omeprazole 20 mg capsule,delayed 20 mg PO QDAY 03/10/23 08/09/23 History release tizanidine 4 mg tablet 4 mg PO BID PRN muscle spasticity 03/10/23 08/09/23 History trazodone 50 mg tablet 50 mg PO .hs PRN sleep 03/10/23 08/09/23 History diclofenac sodium 75 mg 75 mg PO BID PRN pain #60 tabs 07/27/23 08/09/23 Rx tablet,delayed release pregabalin 200 mg capsule (Lyrica) 200 mg PO TID 03/01/24 03/01/24 History propranolol 80 mg capsule,24 80 mg PO DAILY 03/01/24 03/01/24 History hr,extended release Allergies Allergy/AdvReac Type Severity Reaction Status Date / Time No Known Drug Allergies Allergy Verified 03/15/23 08:23 Exam Constitutional Documenting provider has reviewed patient's vital signs: yes Common normals: no apparent distress, oriented x3, healthy appearing, alert and well nourished General appearance: cooperative Orientation/consciousness: Yes awake, Yes oriented to person, Yes oriented to place and Yes oriented to time Other: uses cane HENMT Common normals: normocephalic, hearing grossly normal bilaterally and moist oral mucous membranes Head and scalp: normocephalic Eye Common normals: PERRL Pupil: PERRL Neck & C-Spine Common normals: full ROM General: normal visual inspection Cervical spine: pain with cervical ROM and cervical spine tenderness Other: positive sprulings strength 3/5 in RUE 5/5 in LUE multilevel decreased sensation to RUE dermatomes Chest Common normals: inspection of chest normal Respiratory Common normals: normal respiratory effort, no retractions and no use of accessory muscles Effort & inspection: able to speak in complete sentences and symmetric chest movement Back & Pelvis Common normals: thoracic and lumbar spine normal to inspection Lumbar spine/lower back: normal to inspection, ROM limited, pain with ROM, paraspinal muscle tenderness, paraspinal muscle spasm, straight leg raise positive right and straight leg raise positive left Other: positive facet loading bilat positive jo-ann bilat Muscle strength 4/5 LLE, 5/5 in RLE decreased sensation to left L5/S1 Extremity Common normals: normal to inspection and full ROM Neuro Common normals: oriented x3, CN's II-XII intact bilaterally, moves all extremities, no focal motor deficits, no sensory deficits noted and deep tendon reflexes 2+ bilaterally Sensorium/orientation: alert Gait (neuro): antalgic and assistive device used cane Motor exam: no movement abnormalities noted and strength abnormal Psych Common normals: mental status grossly normal, thought process normal, cooperative, affect normal, speech normal and activity/motor behavior normal Speech: normal speech Thought process: normal thought process Results Additional Findings Additional findings: If on a controlled substance or opioids, I have checked an [place] report on this patient and there are no aberrancies noted in the prescribing history.??If on a controlled substance or opioid a drug screen was completed and reviewed within the last year, and if there has not been a drug screen completed we ordered one today to monitor higher risk, state monitored pain medication use. As part of providing excellent, safe, comprehensive care, the following was completed at our patient's visit: 1. A medication reconciliation and review to ensure accurate knowledge of current/active medications, including asking our patients to inform us about any [id number] medications or herbal remedies/nutritional supplements/alternative remedies. 2. A review to specifically ensure our patients have had annual screening for screening for depression, screening for tobacco use, and screening for unhealthy alcohol use. For concerning screenings had a discussion with the patient, provided patient education, and recommended follow-up with primary care provider when appropriate. If patient noted with a risk of falling, they received education on strength, gait, and balance training to prevent future risk of falling. Assessment and Plan Assessment and Plan (1) Lumbar radiculopathy: (2) Lumbar spondylosis: (3) Chronic prescription opiate use: Assessment and Plan: I feel these medications are improving the patient's quality of life and allow them to tolerate activities of daily living as well as participate in recreational activity.? The patient does not report intolerable side effects. The patient is NOT opioid naive and non-pharmacologic and non-opioid treatment has failed to significantly relieve the patient's pain and improve functionality. The patient has a diagnosis that is related to a somatic or visceral pain etiology. ? ?? I reviewed with the patient the potential risks and side effects with the use of? opioid medications including but not limited to respiratory depression,? sedation, and even . I verified the patient has access to naloxone should? these effects occur. I advised the patient to avoid the use of any other? sedation substances including alcohol, THC, and benzodiazepines while? taking opioid medications due to the risk of compounding side effects and? detrimental outcomes. I reviewed the [employer], pain treatment agreement, urine? drug screen, and opioid start talking forms. The patient was advised to let? their family know they had Naloxone in case they would need to administer? the medication.? ?? A drug screen was completed within the last year, and no aberrancies were noted regarding their use of controlled substances. The patient understands they are subject to the terms and conditions of the pain contract that they have signed. ? ?? I have checked an [place] report on this patient today and there are no aberrancies noted in the prescribing history.? (4) Cervical radiculopathy: Plan lumbar MRI reviewed with pt, with hx of chronic L5/S1 radiculopathy on EMG patient could benefit from spinal cord stimulator as previously discussed. I will have his chart reviewed by Dr Carrillo or Dr Terrazas at this time we will trial a L5-S1 KEMAR pt has an upcoming neurology consult continue current medications, tolerating well without side effects update cervical xray and cervical MRI without contrast for chronic neck pain, weakness of RUE, and cervical radiculopathy following multiple dermatomes to RUE f/u 2 weeks after KEMAR, or after imaging completed
--- OUTSIDE RECORDS SUMMARY | 2024-04-04 15:48 | XMS_ITS | CCD ---
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 Role Phone KIRNUS, DALLAS Unavailable Unavailable [...] [facility]O Primary Care Unavailable LAKSHMIPATHY ., NARENDOMEGAATH Admitting Tiffany vailable HALKER ., NATALIYA Consulting Unavailable HOUSE, DR SOLO Primary Care [...] Unavailable HOUSE, MILAN [facility] Unavailable Rashad Bowman [...] by mouth every six hours as needed [place] 5-325 MG 1 tablet as needed Orally every 6 hrs Active [id number] actuat albuterol 0.09 mg/actuat metered dose [...] 30 Days Active take 1 capsule by [facility] every twenty-four hours DULoxetine HCl 60 [...] Range Facility Outside [facility] 03-02-2024 Outside Records [id number] [facility]-2023 Outside Records [id number] 49#1.00[facility] 09-28-2023 Outside Records [id number]#1.00[facility] Coding Summaryon 08-25-2023 Coding Summary HTMLBase 64 DtfydtdiMPe3wSs+PGh lYWQ+DK7JZTZxH34rdE UaxS4lY1SGTBeXDeanU VEYSCmAYlSpkgXnLS8e aXNjZXJu IC8+ZF8tETCwSdcukYE xi5D8gYD0F91gxz6dJF qfrMU3LVPnViYcabxxr 1nmxGl0FRvfRqzzFzLx XBKjrU09HBH3eB41Jt7 4tZGwjSMuj2ffrTy5Md DgABHoIKX9zZuhDLoqd 4VwLWVbW03cqVIuy3V2 IGNvbGxhcHNlOyBlbXB 8zC6kGHnmefsux0tpjj beYjy6td81hIXto4K9l HL7E1AxqzB3KKJpbERt FsnrbKQGaG2tepgfj7o offvrHeDyTWFkTUe1QO d7WHDlkGgnJcWkYN07Z UL9PQDuetPnF0RtOQFd zVrkWbW0l0N1Jc4PJ7N HAubqS2SWBUWYLNwraI Q+HR41yo05G0AdJxdrN gl2SYHiJVZ7oEM2hX4s XBJdMErqo6V7xCA8U5Y aeoRxpl0lt3swDGExGQ lcA40kqQKyj7G4WABpp IP8LBLgpHzaDiGmoO91 Oyc+QEEwnPlsg5JyWgv ub6bpu2ikyCf3CbiuUI CwomUmgZqqVPD0u4QeC l8fIJOxoAP3wAG7bU1p DzSwBgV4MKyzO870PyX awWXxXilhA79dO1RxoZ A+IHAzVvi2DNSpdVnwM T8iO9NdUAQxfhfizAPn oXhrEI5yKAAilunuZNT obK0vXCQhQ3f8TyGaRe X3XIsqX3GbNEBnnoaqY x61yD8hMtLcRjX8ANkv G5CzgjJ8IGHpaXSaGHw ySQC2R95lu1M1VOYgZN AwMKI0rJJ1zE6nmUdsd jogbGVmdDsgdmVydGlj UBxhUMcpG128OTZviLe nPkNvZGluZyBEYXRlOi AgMTIvMDcvMjAyMzwvd GQ+JLAfZEM9gIskMYQb cQMrLXdgBf2rvUgceZt qLO1fSFCtnecrFKNyuV 0oMVQopRAvoArhSM4bP FJgnwcfo898HoGuOZM4 SQMfxJGdP6EpnA1iIoL pGZKpWGDjQ4KosCJyGC heJ672WRixVrA4VQWcw oRiF6ZfPRIteXfiDtT0 c0Q0Fq3Dm7MqvieyM2Z njJVoSyCkZhraAYj3Q1 RkPjwvdHI+NN99VDGeK D79RAd9KJJ3hNvxVUla HFQoM1AjeU8eNiWpWHH kZGRkOyc+PHRhYmxlIH dpZHRoPScxMDAlJyBzd ZduBA7hAz1zMJFfAMLj sMmyyPHpHdNlw1fgYSC oYMeiAC5suMelI0CncA X5ODRhf6f8Wg74Z69nC 3JvdXA+HCRzkUF8kXH2 qE8wLpJjXxN5QKysO14 7VqDdzBHiRayvj1mnj2 jheYm8VuA9ZDFaieSuj CqzPVP9o4MtTg62P10n IHdpZHRoPSIxNSUiIHZ ymWdbwz6yeQ0wCm0+PG EzhDD3tVX6rB6dHgXrC hV0NZqeD559WpOieJNg Ykecs6onv2rqqUj1KrS nTBEiexThcSpiWEI1g6 AxVq28L5JxiPlmj4FhO po2dn43jDEuv9D6eVF4 S5TiOMHwvjvpaEZigJo eWO5qESUeuwleBQHrnX 8vAPAwI8w9FfGeBmM3L WaaI2VrvvM3USKvbZSy DMYtoKTOcW4kksdsi5d eqrbjQxNcAVSlROs7PR m7AALgmSndAaYlDBN2R pW2NNU6nMFnbO4vlYvi uxlhyU3aNbm+ZMP2jFA dyBERCT4vXktatMK+PH OdPMO7pPorFKmpKNXfq L4sQQMxL2s1WuCrOeR2 LQkwV0XcyqH2KMOyyYW tDUXutRNKwM1uikabr5 cypioyCmFsTHAlUVz1O Wl8MVJvsTojNjAuCJO1 RyR7LBX0pSMkfO8rgIw lxxyhmR9aWmy+QmlydG mmHVJ7WIb9Q5KeMgg6B HQakElkOY3gjPAaLVqe Lv3prVxohTcrKY8yNRI nkgqxs451XcJgo0ykSD MaaSMxMGasJJJ7Q41ws 2F7PTBhFHNdUQA6xEJ2 qN9zsDbfckttqEZzpRh gdmVydGljYWwtYWxpZ2 71JEBigXndOuYrVNi0Z 2UwZca2VPQguJoqAG3t nDJlOGegBc7yiVburMi vHG5vXMMhkxdao137Dc Ben5eqMTMxzGJhFSzyM PR3F08ah3H8VCFkBQOm WSX9uHM0lG7jhSgxdwo gbGVmdDsgdmVydGljYW djSXgsJ742QTIroGapX kDocLz5Z4LsHfg1OYAq nTntQR7utHYqQYupRb0 wgYfsuDpcLR9nKOLslw qkk398ZnGxo8ijDVZvx KUdZJwbAKS9O86ac8B9 XJEqWURuARF6ySB1jV1 hbGlnbjogbGVmdDsgdm UsuPxoMJrwTBgvD079Q HRvcDsnPlBhdGllbnQg JKqwBDz1S9EyMvqfoNL +HF66FYRdNX88qVRpbA Gsp4pgxTt6RuNfMTFbM CI2lJamUTqnd9LlWANv C15uzPXzi4R1BGZwwYc xtXOjAcIgpPY1pH7wQJ dkyomjn0glgoynRokbi 4mccv85pM11M30vFKtq ZHRoPSIzMCUiIHZhbGl pod1vpJ5oAt7+PGNvbC B7cXJ3aJ1oVZVzNpR0T KqnT340YxAyoSEcQfgk z2udj3vouAn9YbZ4JSL tkyJsjPwqVHR7r7AoMg 44I33iYZpzHXLlZEEiY IGbYFQmsYskfq1yuS1m Ii8+ADShtIK0rMU5uF1 eRvOsRvW4AZxdT009Dz DzaQFwNcxaZ87bE5Tkz XA+QXDgZbw9HTUnvPhe CI2miBSjWHwzFv1qXDR 7DwQwJhFyVCbnH8UcZC TojytpdqrndRQ2DUOhA ARaeK86Iq4azUhrXZEa nGMQmU3korfvd9pocup rHgDcUSMfCTs0DJj4KO DyjWflXlEySMV9EeW9U GF3tGHdkV5ysRxenqxy aE9pZ0GfSNXupxmfKb1 6hV7iPzEwUyD4LEyaSf c+O0HQTQ7LZavyE2DXI AFDNKDDL2KDBIjnmTT+ OHDiINP9hImgVKhyLNL kzJ3pUQLwK4h6ZmYsAv J5OOlyC1QfERVaogfnH t57zT9vNiOdZhA3YHxz U5BxyyN5NGPgqWOzFFc rYRK2E85wq0E6GFAaZB AaFTW9xFN9eG1wnLnul jogbGVmdDsgdmVydGlj EQgtBHnmH531NZIxpNu vAdHfNcNkKtN5KgJ2A0 McLjx3ISYrgUriLO8li ICuJTirRv8zeQnxjBby BI7dWTEnamscSDCbhY4 pLDTyiBBpcWhuBV8dPH Nbfuqtz388VhClVNM6B FPkhJBkZ6JgiP6xGhEe FXNjRCHkL5AzdFEnIZv zE943LRcnKvR9ZHBhbc CiJ1PdYXDmkLsaTwY7r 3X3Ki44VXBUVXTvinqp dGQ+REXaHWP8rYhwLCj rYXNqfU5rPZToP3o4By KaXkK3UKvwO2YyUSHxj eyiZe08jD2gHnXdHgN0 SOlyT9EjrkV9MWTnfRN uGQqgMIQ5W94yr5E1QK KySMByIET0uWZ7mM9xc GlnbjogbGVmdDsgdmVy nCafWCvjEHaaI754MZY rqUhtCi9CJWO5Y7ElZx j9WDLgzNurRF8exCVhE HftRx2ocJxygPtjKZ1i OKLfgcrkNKJmsS6xHUO kcMZubAltTG6sPSFrhe xvx064WyFyKMP3NIKkd KApG8HzbS5uHiBjMFZl DVXuB2CyoBVzJMnfS11 4SNtrQtZ1XZNyzmYsC9 VwPFYusPhoRkU5p5W5V v6PIQiuaIE+ZL88au21 D8PqUhtyKxz5DXMwYVG 0dJF3iA2cHGSxIKuhr4 T4rUN2Y3EhlxThmc1of 6esFVPvBIwjU95ogQBa l7H1IWVgnGE7DHOriSk hWqUiuZ31Tai+PGNvbG hgu2TmTqtxs6kds9aie Am9ZaRyRGSekePcdVgn BFF8c8BxUt93I49pYNu pZHRoPSIzMCUiIHZhbG hudw1qrD5sYq0+PGNvb XT4nDR9nW2uOjQcBnV6 IAyqR842HrMwiHGmLvq nk1ven9mtzSu3EuPtKI GznmDboHatHTO7r7PbE y10S8GifLnsp6ObUgv2 zs75kHWws5F4kOX1X1S hZGRpbmctbGVmdDogMC 5zJNKszfmcWQTgeD9pR LCdF9u7OdPwMmU6JGej I4TmqwY1PAYjbUSvQMK gwBZOdB2ncqrog9dxml slOeWkLPKmVFe8MUq4H KGoxUjdWbWwFJU4HcX5 LUE4nURjlF4pfJirryr aeC7oCgq+KCr5w7qqzD WuLX6tbUZ2YN40BT87z GUpt1N2rOZ7G8NlBATr yjmhcarwsUU5ANHgHCC wcK05Ly4wvTciOg9qLX SoMNP4NOGliTArN0Yow O2gYnWySPLwQXFgS4Ni hTYvFRvrB093IJmkPpX 8UBOybyRgC3BwAQCtxE tuHmN7q8V6By3DGB90Q P38SR53lEIia4P4vTI8 R1RqGXOlqqaddfitkHR 2WRPwJNBreU32Up5sdX wiLk6jHFVyEIW2SSHdp ZOfP0HhpJ1iImJzKPLj PEEgC6QvaIVoIWviR13 3UYloEyL7IVTduhXdX4 ZzPMSmkSijHtN4m5R3J z7BNe11PL68HD24bNPq s2E2kQN6O4FzSETfusq yipszcKY7RXXsNMBtkN 27Hv5kxXucQk5hGGFyL ZB1IRCkiCDuA3YizS9s FlZhULHxDKClD1VgkBM wRCxnR541JPviPxQ1AI RykeMhI8RmPFLcpNuwC aE1g9K1Fb7FXRnifvp3 J8OjQmqerVJ+AL04GFP kDY03dQMuqEExl7qdwY f4EzSqDIXlPNG7sBcrL Supv8UaUVFdD54jxKOh c2U (more content not included)... Normal [facility] .Auto Diff 08-24-2023 Auto Placer % 6 % Normal 09-30 [facility] Comment on above: Performed By: #### 1 6298856, 19033247, [id number], 4305932, 6954092604, 8793475 ####[facility] (DEFAULT)[address] [place] [address] 64421 Baso Abs# 0.1 x10 Normal 0.0-0.2 [facility] Comment on above: Performed By: #### 1 3931365, 47799332, 5035088328, 7038493, 2669513221, 4969773 ####[facility] (DEFAULT)[address] [place] [address] 19254 Basophils/100 WBC (Bld) 1.0 % Normal 0.2-2.0 [facility] Comment on above: Performed By: #### 1 2610748, 86651836, 4830793093, 9777898, 7504645056, 4304226 ####[facility] (DEFAULT)[address] [place] [address] 03043 Eos Abs# 0.1 x10 Normal 0.0-0.4 [facility] Comment on above: Performed By: #### 1 8814594, 01681890, 7921981383, 5295052, 9121405518, 6729002 ####[facility] (DEFAULT)[address] [place] [address] 50452 Eosinophils/100 WBC (Bld) 1.1 % Normal 0.9-4.0 [facility] Comment on above: Performed By: #### 1 3169755, 65868640, 0423296612, 5796104, 3255356439, 5911461 ####[facility] (DEFAULT)[address] [place] [address] Lymph Abs# 2.1 x10 Normal 1.3-2.9 [facility] Comment on above: Performed By: #### 1 9678320, 53732509, 0789079381, 5293944, 7552226207, 2788581 ####[facility] (DEFAULT)[address] [place] [address] 86771 Lymphocytes/100 WBC (Bld) 26 % Normal 14-48 [facility] Comment on above: Performed By: #### 1 6975794, 84920552, 2264493295, 9014708, 0787892510, 3767883 ####[facility] (DEFAULT)[address] [place] [address] Placer Abs# 0.5 x10 Normal 0.0-0.8 [facility] Comment on above: Performed By: #### 1 4479405, 63585074, 4734839624, 7787738, 2298394082, 1176285 ####[facility] (DEFAULT)[address] [place] [address] Neut Abs# 5.2 x10 Normal 1.5-9.2 [facility] Comment on above: Performed By: #### 1 0901645, 30736816, 0048302428, 7260841, 1639033643, 1565803 ####[facility] (DEFAULT)[address] [place] [address] Neutrophils/100 WBC (Bld) 65 % Normal 44-88 [facility] Comment on above: Performed By: #### 1 5517581, 66966155, 5679298103, 7597464, 3602944961, 7268600 ####[facility] (DEFAULT)[address] [place] [address] CBC w/ Auto Diffon 3 Erythrocyte distribution width (RBC) [Ratio] 13.7 % Normal 11.5-15.0 [facility] Comment on above: Performed By: #### 1 7323064, 68697067, 2459518266, 4625159, 8705708068, 2814954 ####[facility] (DEFAULT)[address] [place] [address] Hematocrit (Bld) [Volume fraction] 45.6 % Normal 34.8-51.9 [facility] Comment on above: Performed By: #### 1 2171272, 12832268, 5048494463, 0259785, 6125349035, 9466137 ####[facility] (DEFAULT)[address] [place] [address] Hemoglobin (Bld) [Mass/Vol] 15.2 g/dL Normal 11.8-17.7 [facility] Comment on above: Performed By: #### 1 8984432, 11037123, 2737476986, 1619300, 2824082686, 1460816 ####[facility] (DEFAULT)[address] [place] [address] Man Diff? Auto Invalid Interpretation Code [facility] Comment on above: Performed By: #### 1 8707715, 32545761, 5149649198, 6592110, 0247575865, 9778535 ####[facility] (DEFAULT)[address] [place] [address] 05243 MCH (RBC) [Entitic mass] 29 pg Normal 24-34 [facility] Comment on above: Performed By: #### 1 6542598, 93661749, 9335828863, 0187846, 0446708307, 3332129 ####[facility] (DEFAULT)[address] [place] [address] MCHC (RBC) [Mass/Vol] 33 g/dL Normal 26-37 [facility] Comment on above: Performed By: #### 1 4184037, 04719878, 9920175468, 9374605, 2119044975, 4580107 ####[facility] (DEFAULT)[address] [place] [address] 74744 MCV (RBC) [Entitic vol] 88 fL Normal 81-100 [facility] Comment on above: Performed By: #### 1 6894320, 30227091, 9413572806, 8539936, 5514901657, 0418986 ####[facility] (DEFAULT)[address] [place] [address] 48243 Platelet 391 x10 Normal 138-427 [facility] Comment on above: Performed By: #### 1 9355760, 01402709, 5593304079, 1986976, 4969082227, 7121520 ####[facility] (DEFAULT)[address] [place] [address] 92043 Platelet mean volume (Bld) [Entitic vol] 8.5 fL Normal 6.3-10.2 [facility] Comment on above: Performed By: #### 1 3288950, 07332884, 4380531645, 9516455, 3732592645, 1732676 ####[facility] (DEFAULT)[address] [place] [address] 48097 RBC 5.19 x10 Normal 3.70-5.30 [facility] Comment on above: Performed By: #### 1 9512872, 96331114, 0686140202, 8773765, 8885815971, 4644896 ####[facility] (DEFAULT)[address] [place] [address] 76933 WBC 8.0 x10 Normal 3.5-10.5 [facility] Comment on above: Performed By: #### 1 4038538, 97741551, 5978823885, 4561127, 0093160804, 5968176 ####[facility] (DEFAULT)[address] [place] [address] 62447 CMP Standardon 08-24-2023 eGFR Non AA >[address] [facility] Comment on above: Performed By: #### 1 5853926, 23376679, 6116075173, 7273412, 3545937952, 8847797 ####[facility] (DEFAULT)[address] [place] [address] eGFR AA >[address] [facility] Comment on above: Performed By: #### 1 3994570, 40903386, 4761187187, 1355151, 5887202698, 3782885 ####[facility] (DEFAULT)[address] [place] [address] Albumin [Mass/Vol] 4.4 g/dL Normal 3.5-5.0 [facility] Comment on above: Performed By: #### 1 7025704, 29076267, 3579717073, 5161779, 4138337072, 9471898 ####[facility] (DEFAULT)[address] [place] [address] Alk Phos 60 IU/L Normal 32-91 [facility] Comment on above: Performed By: #### 1 4741616, 92305461, 0385848688, 6828678, 2278936530, 8746452 ####[facility] (DEFAULT)[address] [place] [address] 79972 ALT [Catalytic activity/Vol] 52.0 U/L Normal 17.0-63.0 [facility] Comment on above: Performed By: #### 1 9442475, 63454842, 9047832264, 8912748, 0785278339, 2499229 ####[facility] (DEFAULT)[address] [place] [address] 65532 AST [Catalytic activity/Vol] 32 U/L Normal 15-41 [facility] Comment on above: Performed By: #### 1 1323593, 01934318, 7178239293, 0429290, 3559536995, 6333415 ####[facility] (DEFAULT)[address] [place] [address] Bili Total 0.9 mg/dL Normal 0.3-1.2 [facility] Comment on above: Performed By: #### 1 2778918, 34818311, 6697240447, 4447227, 8133660850, 1718514 ####[facility] (DEFAULT)[address] [place] [address] 73618 Calcium [Mass/Vol] 9.4 mg/dL Normal 8.9-10.3 [facility] Comment on above: Performed By: #### 1 3868492, 65388621, 9972615116, 6901956, 0354729610, 7651301 ####[facility] (DEFAULT)[address] [place] [address] 39191 Chloride [Moles/Vol] 109 mmol/L Normal 101-111 [facility] Comment on above: Performed By: #### 1 0047885, 98043561, 4072103825, 8182128, 9756256134, 9885525 ####[facility] (DEFAULT)[address] [place] [address] 49934 CO2 [Moles/Vol] 25 mmol/L Normal 21-32 [facility] Comment on above: Performed By: #### 1 5132337, 58221274, 9867910463, 4867139, 3785667405, 1852294 ####[facility] (DEFAULT)[address] [place] [address] 49176 Creatinine [Mass/Vol] 0.74 mg/dL Low 0.90-1.30 [facility] Comment on above: Performed By: #### 1 8672744, 68509315, 7740383733, 0768210, 0344764734, 9780782 ####[facility] (DEFAULT)[address] [place] [address] 96399 Glucose [Mass/Vol] 105.0 mg/dL Normal 74.0-118.0 [facility] Comment on above: Performed By: #### 1 3679857, 83497168, 6208458650, 7665192, 8422976891, 0909963 ####[facility] (DEFAULT)[address] [place] [address] 98081 Potassium [Moles/Vol] 4.0 mmol/L Normal 3.6-5.1 [facility] Comment on above: Performed By: #### 1 3347597, 11696740, 2035292437, 8152117, 3711653580, 0447853 ####[facility] (DEFAULT)[address] [place] [address] 72838 Protein [Mass/Vol] 7.5 g/dL Normal 6.5-8.1 [facility] Comment on above: Performed By: #### 1 6509816, 22827222, 6049970693, 0606870, 4267067950, 2246546 ####[facility] (DEFAULT)[address] [place] [address] 76910 Sodium [Moles/Vol] 140.0 mmol/L Normal 136.0-144.0 [facility] Comment on above: Performed By: #### 1 6254263, 25089762, 0998254796, 7938629, 5839580573, 9260135 ####[facility] (DEFAULT)[address] [place] [address] 52855 Urea nitrogen [Mass/Vol] 10 mg/dL Normal 8-26 [facility] Comment on above: Performed By: #### 1 6173165, 18536895, 0780950257, 7954770, 4179228901, 7579966 ####[facility] (DEFAULT)[address] [place] [address] 72462 Albumin/Globulin [Mass ratio] 1.4 {ratio} Normal 1.4-2.6 [facility] Comment on above: Performed By: #### 1 8222370, 09573314, 3863526632, 7725206, 8587902659, 4456061 ####[facility] (DEFAULT)[address] [place] [address] 57289 Anion gap [Moles/Vol] 10.0 mmol/L Normal 5.0-19.0 [facility] Comment on above: Performed By: #### 1 9179940, 07673220, 9262766164, 2158902, 4526777040, 9097450 ####[facility] (DEFAULT)[address] [place] [address] 42937 Globulin (S) [Mass/Vol] 3.1 g/dL Normal 1.5-4.3 [facility] Comment on above: Performed By: #### 1 9243729, 08346045, 3249504783, 5356818, 6529415062, 5532525 ####[facility] (DEFAULT)[address] [place] [address] Osmolality 279 mOsm/L Invalid Interpretation Code [facility] Comment on above: Performed By: #### 1 4670232, 79171852, 6305344400, 9191094, 3092866326, 7000430 ####[facility] (DEFAULT)[address] [place] [address] Urea nitrogen/Creatinin e [Mass ratio] 13.5 mg/mg Normal 4.6-16.2 [facility] Comment on above: Performed By: #### 1 2164799, 20668697, 5857173518, 0563055, 8825247609, 0549900 ####[facility] (DEFAULT)[address] [place] [address] HgbA1c Standardon 08-24-2023 .Hb 16.[address] [facility] Comment on above: Performed By: #### 1 9938517, 97761841, 3243370270, 3183089, 0923659646, 0095017 ####[facility] (DEFAULT)[address] [place] [address] 93613 .Hgb A1c 0.59 g/dL Invalid Interpretation Code [facility] Comment on above: Performed By: #### 1 0611428, 24885624, 0739158666, 6180198, 2567269232, 7645607 ####[facility] (DEFAULT)[address] [place] [address] Glucose [Mass/Vol] 108 mg/dL Invalid Interpretation Code [facility] Comment on above: Performed By: #### 1 [id number], [id number], [id number] ####[facility] (DEFAULT)[address] [place] [address] HbA1c (Bld) [Mass fraction] 5.4 % Normal 4.6-6.2 [facility] Comment on above: Performed By: #### 1 [id number], [id number], [id number] ####[facility] (DEFAULT)[address] [place] [address] Reminder Messageson 08-24-20 Reminder Messages -- From: MILAN NAILS DO To: [facility] Clinical Pool ([facility]); Sent: 08/24/2023 12:33:59 EST ! Show up: 08/24/2023 12:33:59 EST Subject: Results Follow Up Actions: Call the patient with result(s) Due Date/Time: 08/25/2023 12:33:00 EST Reminder Comments: looks good Results: Date Result Name Value Ref Range 08/24/2023 10:17 Estimated Avg Glucose 108 mg/dL 08/24/2023 10:17 Hgb A1c % 5.4 % (4.6 - 6.2) Patient called and notified of results. Verbalized understanding. Normal [facility] Reminder Messages -- From: MILAN NAILS DO To: [facility] Clinical [place] ([facility]); Sent: 08/24/2023 12:24:35 EST ! Show up: [...] % (14 - 48) 08/24/2023 10:17 Auto Placer % 6 % (1 - 12) 08/24/2023 10:17 Auto Eos % 1.1 % (0.9 - 4.0) 08/24/2023 10:17 Auto Baso % 1.0 % (0.2 - 2.0) 08/24/2023 10:17 Neut Abs# 5.2 x103/mcL (1.5 - 9.2) 08/24/2023 10:17 Lymph Abs# 2.1 x103/mcL (1.3 - 2.9) 08/24/2023 10:17 Placer Abs# 0.5 x103/mcL (0.0 - 0.8) 08/24/2023 10:17 Eos Abs# 0.1 x103/mcL (0.0 - 0.4) 08/24/2023 10:17 Baso Abs# 0.1 x103/mcL (0.0 - 0.2) Patient called and notified of results. Verbalized understanding. Normal [facility] T4, Totalon 08-24-2023 T4 [Mass/Vol] 9.52 ug/dL Normal 6.09-12.23 [facility] Comment on above: Performed By: #### 1 [id number], [id number] ####[facility] (DEFAULT)[address] [place] [address] [place] [address] TSHon 08-24-2023 TSH Qn 1.11 m[IU]/L Normal 0.45-5.33 [facility] Comment on above: Performed By: #### 1 [id number], [id number] ####[facility] (DEFAULT)[address] [place] [address] Coding Summaryon 08-02-2023 Coding Summary HTMLBase 64 HycfcxyzBCn1cYy+PGh lYWQ+BC4VWIHpY62bsR XehZ7kF2CFNInPRzitO AZUIXuEAgMwyzShJI9z aXNjZXJu IC8+MS7iMRIkPbewoNH yy0C2zJX1R47yfv8sAK zjtHP7ZJYyOfXbasdty 0zwaKy6LHeqWxeyXpOu KWLliC10ERP4fM26Lf0 8oEKwgZQmu8wymTn7Vw EtSVJoXPM6oUkdJRydx 0SiKOOuW29krREjw6H0 IGNvbGxhcHNlOyBlbXB 5eH8jCKdofgvoe1shxz ssVkc6bp34qOJoz7I8x NZ5S6RaycV1ZIIkzYKj GevceQSMvA8jbyrsd2f vwjpuByFuCZCxJVv2LV x8MJCftTmpSwHyDV81V JH5ECUpgiEeO7TjHFVh nNpuTyE2f7X6Gt1NA3C KYxvsC2QZECVVDWwqcT Q+KN20da63Y4FaXuikT lq4PBEiTQX6xVG3cI2i GVBgDFntj8H9xXQ5X4D plvBnwt3mr4tvIDBnNZ xsR50dnLVhh4F9VPYqg YN2WVTalLqlZbYxwI48 Oyc+NPErfAztt5JpBce wp0wkh1bhuQx5EgptAT QkxxYloZqhLPE1i8FgF s5uQWKflHJ8uRU4jN8k WtKuVrA9FLfgQ153NoE lhXKzDjuoD21iI4YqdC A+HQBwNib3JTAwxFbaY W4iN0OvZGKncqqrqBYv cFdlZN4yEHInqlwjLRJ bfX2oRYDgI0n6GzCrSy C1GWpeK0ZzSLIuevvsH z57sM2fNjObJrZ0HNqg H5NaiiU8BZJknOWyRHz eMGJ5O16js1K0WWYqVN OpCKA1bRH1dZ2syKtav jogbGVmdDsgdmVydGlj XDsrHYyfN047PLSgaOr nPkNvZGluZyBEYXRlOi AgMTEvMTQvMjAyMzwvd GQ+YVVbQPE4rHrlYRRs yZHaITntPm5blZpqqEc yMT5fCAKnzlhwSTCvdI 2cNAKgyTGjwQgcOH4nM OQlswbnh783QvRyTJA8 TNHxcSIwE8SqgD8ePeH rMMLhWSYrW0JncSWgML coJ068CZraCoZ8TZWrr cYcE1IvGAXddLkxZkX4 h1U2Ma6Os9KbndowI3U cqIXpRmOzJbgqXBu6K4 RkPjwvdHI+WS49IRDhI Q14AMc9JMB5zSqbLVjq JGIkF5UgcH0bClAfMRQ kZGRkOyc+PHRhYmxlIH dpZHRoPScxMDAlJyBzd AezSJ4wLx8xEVVnFBSj qKrpxOOkEaOvp0rbVSN tWPvkGJ3cyKbdY3BmrV C9CLZip3v3Rt07L88zT 3JvdXA+SDWkzYW6pWW4 tF8cYyKqWqK4VAlmK13 1TxCgaHBmUusmg9phu7 dmnDi9BjJ9MKJdexCwh DjuLBU7e3VyNr32H69f IHdpZHRoPSIxNSUiIHZ zvNlcne9jnC4bEc8+PG OjdEV5tFF6cW9yJgIzV aN0HXwjV295SxOfbCQt Jfbck1hdk9ldmOf0DeR sLTYhxdDzcVnaLHU7t7 LoHx74M8ZwaFeyc2HmE fv0dv14pZHsj2G4sIQ4 A5DiAMMxvuptmJJqeXn sCD5uMSWowxojKMKynA 8mRXVmZ9b3MzCdOzP5V OktK3ViccL6PGPecJXk IMHmyPQKdH4vmtdtp0t hbvtdNpIfZJCjHZv4ZB u1SDLqzNrwLhQxXWY8N bV7EAD0xNGzuZ1ccSas jmdeeM4pPgt+YOX8dAV jkSKPWA2sLrzpfUM+PH QoAUP4yGkoVIceJOXfn P6vVTGcM7z5YiWxSbW3 TIkzG8KoubY6WENgaAA zJCNkuTHWfW6rfjvzy5 xxovbwWsAqTUPnIKm2U Dv6LVGfhTnoNvDkZKJ1 XoV6WZH3tKHwxF6geKe thkkmxM6dRbw+QmlydG otXKI6EYg6T8UbAbk7G PTpxLliBD8ecROyPWgo Ge3lyZhlcHlzXV2iGKG qzbobe689ZwLnv5ngZI VnbHIqSDjgAAG3Y47ug 9P0ZVOvPIBjYFK2wRJ4 tX5ztLpceiprwSCqeDo gdmVydGljYWwtYWxpZ2 50KAGdsRkxRkLxCCi8P 8UvKoa2WIJfcGuaGM6o qLAbDHhhHf7vmNewbLv hUW0gRNQwbeggu498Dc Mms9pcARGhoQAwWZyaB XH5C49jt4K6BEVwMIZr UMW8hRC5eV9sqLjcoyv gbGVmdDsgdmVydGljYW ztVJvdB789ZDZgkPboP nXnqDx6A6LkFin6JNOo mUipWK3jeWOsIUsuZv2 erQgjvCzeGG6yUGXblo gcf505YvCky5jtTRTvi IBwOUgvWRK2H14as7Z5 GBSrKHQxSBA1uDZ2xM8 hbGlnbjogbGVmdDsgdm MsrBifKQleJAicP870O HRvcDsnPlBhdGllbnQg PRpuGYg1Z6LnRwtxaCN +NS57GICyDH27uGBwrK Fij1vogBm0JyNuKCBvU NY1yYlnAJjty8DgNVWm A54dvUTkc8B9MLKddDl uwZLsLkYjzTV8nO1dXM matdjne7rutxfsHqqwy 7rvgm39iJ53S29aQEyi ZHRoPSIzMCUiIHZhbGl sli2wdK2kSy0+PGNvbC M4kMB1qJ9xTWYyJuF6L GagX098NsXotGQdUimv t6zgc2wefKr5YoX1DUD zkeVsmCksVEE9o5KlVs 58E31kTRqrWQYgDMDhV LHzYKVxwDnkda7koW8x Ii8+TJMfwEZ0yMD9vL8 fZzNtPaI5HWuhO647Sp OllDOdJlgxJ86iZ0Ysk XA+JAPfQjx8HBQqqLhp YI5dyGHmFCbuJt3pSXJ 0BbGxKoEoJEkhK7QvLI RamcogocofoJF8WCCpH HEwbI57Ad0dwRlyHZPo nSJUdP1ksyzog5artqr yRaTpIQLtTOc7WEf3VX QrcKzyAwSnCWO8QbJ3K RC2yIOjrC6guXmcvhgp eQ3pP9HgTIChrtpnXi8 5qW2wCeVeOsP2ORtoLp c+O4NSSV5FZsuxR8YXM XDYJQENF9OKHIfmmFI+ IIPdPYC4bSwjHHkpYLG snB8uCBDpE0l5NrHoFo I4NJvyO4JsJBStgbjnT x05uJ6uBxCgEwR8ZZpm J1QaexZ2KBGvxCUtHZd dNJH7P16vi3H5AQLyOJ FuLLX7oSG3hI2qyEtyn jogbGVmdDsgdmVydGlj LCirQRdkG599MHNxnMy sCxEmPbSxXxX3UmE8V1 QuTzh1JSDdjLxeCN5uw AIoIJlfKr8bjAgdfFgd PL8cRIGfcezfNZIgxT3 cMBAarWPreLioGJ2yMA Uawptgk684UyQxEEP0S ABeuMThB6IacN2fGtYy NHOiDGJoW4UulZGcEYh xY687CAviIuT6CMUvbj ElW7PnUQDrgPavAjX1w 0R6Ui03NFCQCATwuduo dGQ+BANaYPY7dByiVPf hCSPydC3qBFViP4h8Qv SuFqQ1JLcqQ3MjDBStu jocQh21nM4gKgTnNsG2 JChsM7CemaD7GKRtnUM vNXouJEF0T33gm0B0FA SzWCFeGGB8qLG2qI1ys GlnbjogbGVmdDsgdmVy rPxsOQujEWapU577YBJ avWxgYx0MSIR9Z5JyPx j6NAJzzYyuMT0xxPIcK YosTx5zpSohtSjhSL1n XCCejrijOMNfuV7iLHR tbMUkaKrfCZ0iRDQslt mvx454NfOySXW9CRLnn EEuK0EldJ1pBjChLOJp YWRwT9NbpOQvHOumA76 5PTxwCwE8ATBycsSuX9 JqDUYwlDxsVcK4e9X6F y4QHPrzmLO+ZW93gm31 U3ZzMqfvLpa1LMFcHER 9wZK6tS9qCEKrGMchz8 Q1oRP3G4VlrcModr1oa 6biNQOnLZjuJ41ecAFn q9H3IGAnpJB9DFKsaVd wAhYdtV48Ztt+PGNvbG pqw3IjSgaep2vsq8yyc Am9LtLyXHPndpYijQtt HZT2p7ZdNn33M87pARe pZHRoPSIzMCUiIHZhbG apem5kkS7xBo4+PGNvb KL5pXK8cG1iNaIiMgN2 EJteC749IzDeiCKbJre wa7ibv7zszLv3YuQwFA EnpmGpiYwlTAR5n1EiL j12G3CagMrkz8MvMqt1 mj68gYEmk5R7dUK6J3O hZGRpbmctbGVmdDogMC 2dFROkyhbdZRVcpY8zU YTtR3g8GgLuXmG5IKxj D9TynqN9KVLgbASjFCT thKHVoC1miioxb1akbs zvZpNnJNCxCJw3CKt9W BNgwPaaPbKwQLJ7JiT2 YVJ5bKNgrA6jyDeckye gxB1nTxi+AZg2t5gjeC RdWD9akIR6AQ07IN86x AEfy3R6pEP4V3OkBEOt toorcbikrPJ1GSEhJUE ruN87Jx1ciJarAc8eYQ VzSCR3GEWdkEVkX8Bfb G7iKsAeKCWrGPUuJ7Ye gEXgCFraZ423VWetXjK 7HYFzuqEiE5WkUSBkzJ fbQqQ4p3J0Fy2ZOS54W C78CZ75xOYqa0V5eID6 L8HxWVRxponzhbxiuPQ 8OCHrEAIerM20Lo0buR xyAe8pZJBwUSR0MYRlj MMgT7UblS9kEbViMCZj QBXlI0GatCDtDEcoA93 8XOzsClU8NVTuihQyE4 UxERAemGszLoW0g2R3K k0MIu61UE71DS64xYCn a1R5mMI8P7VqBKKnxjf ndrgprLS9IVIvUCGafR 89Xr8jtHtgWc3mUAFzG DV2HMLdnVYaZ1MqbS5u XsObNPUjCOTcJ1MtwRH oNJqxK405CBvvPkL8NS KmfrEhS3HpVSTmyAsoT wU4v6A0Jh5MTNdlgml0 E7AkKpympKS+OF26RRY pIF36bZDkcQEui2qyuG d0BkXrUBIfHFR2kYggV Grxe5BvORPmC64doWOv c2U (more content not included)... Normal [facility] ED Clinical Summaryon [address] [facility] ? Urgent Care [address] [place], [place] [id number] Clinical Summary PERSON INFORMATION Name: DION ANDRES Age: 47 Years Sex: MALE : 1975 MRN: Acct#: Visit Reason: UC - Laceration; LACERATION ON LEFT HAND Arrival: 07/26/2023 15:38:23 Discharge: 07/26/2023 17:27:00 LOS: 000 01:49 Check In: 07/26/2023 15:38:23 Checkout: 07/26/2023 17:27:00 Address: [address] [place] [id number] PCP: MILAN NAILS DO PROVIDER INFORMATION Provider [...] When: MILAN NAILS DO [address] [place] [address] Within 3 to 5 days Comments: Diagnosis [...] wound to hand Patient Understands: Yes - Patient/family/nurse healthcare manager verbalizes understanding of instructions given Comment: Normal [facility] ED Patient Summaryon [address] [facility] ? Urgent Care [address] [place] [address] PATIENT DISCHARGE INSTRUCTIONS Patient Information Name: DION ANDRES Age: 47 Years Date of : 1975 Reason For Visit: UC - Laceration; LACERATION ON LEFT HAND Arrival Time: 07/26/2023 15:38:23 Primary Care Physician: MILAN NAILS DO Attending Physician: Rashad Bowman Comment: Patient Education With: Address: When: MILAN NAILS DO [address] [place] [address] Within 3 to 5 days Comments: Diagnosis [...] and water are not available, use hand building performance consultant. ? Change your dressing at least once [...] at home: Medicines ? Take or apply crdq-oah-tiolxxf and prescription medicines only as told by [...] is impor (more content not included)... Normal [facility] [address] [facility] ? Urgent [address] [address] PATIENT DISCHARGE INSTRUCTIONS Patient Information Name: DION ANDRES Age: 47 Years Date of : 1975 [facility]: [id number] Reason For Visit: UC - Laceration; LACERATION ON LEFT HAND Arrival Time: 07/26/2023 15:38:23 Primary Care Physician: MILAN NAILS DO Attending Physician: Rashad Bowman Comment: Visit Diagnosis: Diagnoses This Visit Puncture wound to hand (S61.439A) UC - Laceration ([id number]) If you received any narcotics, sedation, or [...] documents With: Address: When: MILAN NAILS DO [address] [place] [address] Within 3 to 5 days Comments: Diagnosis [...] and treatment you received today in the [facility] were for an urgent problem and are not intended as complete care. It is important for you to follow up with a doctor, nurse practitioner, or physician?s doctor's assistant for ongoing care. If your symptoms [...] so we can reach you if necessary. [facility] has provided you with a complete list of medications post discharge. Please inform your hematology nurse educator/provider of your visit and for further instruction on these medications. Any specific questions regarding your chronic medications and dosages should be discussed with your primary care physician(s) and/or pharmacist. New Medications [facility], [address], [place] [id number], [phone] amoxicillin-clavula ld (amoxicillin-clavul anate 875 mg-125 mg [...] delayed release capsul (more content not included)... [facility] XR Hand Complete Lefton XR Hand Complete Left HISTORY: Laceration. Puncture wound. Hand pain. COMPARISON: None available TECHNIQUE: AP, lateral, and oblique views of the hand FINDINGS: No acute fracture or dislocation. Joint spaces are maintained. Soft tissues are within normal limits. No radiopaque foreign body. IMPRESSION: No acute osseous abnormality. Final Signed (Electronic Signature): Stalin Eric DO 07/26/23 4:50 pm Technologist: Joesph STEPHENS [facility] Outside Recordson 06-07-2023 Outside Records [id number] 825#1.00OTGTIFF [facility] Patient Handouton 05-12-2023 Patient Handout [id number] 45#1.00OTGTIFF [facility] Patient Handout [id number] 25#1.00OTGTIFF [facility] LUMBAR SPINE 6 OR MORE [facility] 01-14-2022 LUMBAR SPINE 6 OR MORE [facility] Department of Radiology [address] [place] [id number] Patient Name: DION ANDRES : 1975 Sex: M Age: Race: White Pt. Location: 85 Patient Status: D Ordered Date: 01/14/2022 12:15:00 PM Completed Date: 01/14/2022 12:37 PM Requesting Provider: JACKELINE RANDLE Attending Provider: JACKELINE RANDLE Report Copy To: MILAN NAILS Signs & Symptoms: M47.896 Other spondylosis, lumbar region I10 History: [place] Comments: , ap, lat, flex, ex, obliques, r/o instability or pars defect , Views (X-RAY, LUMBAR SPINE): AP, Lateral, L5-S1 Spot, Obliques, Flexion, Extension , ap, lat, flex, ex, obliques, r/o instability or pars defect , Views (X-RAY, LUMBAR SPINE): AP, Lateral, L5-S1 Spot, Obliques, Flexion, Extension , , , Ordering Provider - A JER MSN RIB BENDER , Exam: LUMBAR SPINE 6 OR MORE [...] radiographically. Electronically signed: Rashad Adler. Transcribed by: [email or web address], User Resident: Electronically Signed by: RASHAD Delma ADLER @ 01/15/2022 11:40 AM Normal [facility] Comment on above: Order Comment: , ap, lat, flex, ex, obliques, r/o instability or pars defect , Views (X-RAY, LUMBAR SPINE): AP, Lateral, L5-S1 Spot, Obliques, Flexion, Extension , ap, lat, flex, ex, obliques, r/o instability or pars defect , Views (X-RAY, LUMBAR SPINE): AP, Lateral, L5-S1 Spot, Obliques, Flexion, Extension , , , Ordering Provider - Sherice LOPEZ RIB BENDER , Vital Signs Date Time Vital Sign Value Performing Clinician Facility 09-23-2023 10:05-0500 Body height Abbey Robin Other [facility] Other 09-23-2023 10:05-0500 Body mass index (BMI) [Ratio] 44.21 kg/m2 Abbey Robin Other [facility] Other 09-23-2023 10:05-0500 Body temperature 98.6 [degF] Abbey Robin Other [facility] Other 09-23-2023 10:05-0500 Body weight 135.81 kg Abbey Robin Other [facility] Other 09-23-2023 10:05-0500 Diastolic blood pressure 82 mm[Hg] Abbey Robin Other [facility] Other 09-23-2023 10:05-0500 Respiratory rate 18 /min Abbey Robin Other [facility] Other 09-23-2023 10:05-0500 SaO2% (BldA) [Mass fraction] 95 % Abbey Robin Other [facility] Other 09-23-2023 10:05-0500 Systolic blood pressure 152 mm[Hg] Abbey Robin Other [facility] Other 04-15-2023 10:30-0400 Body height Marisol Zelaya Other [facility] Other 04-15-2023 10:30-0400 Body mass index (BMI) [Ratio] 45.33 kg/m2 Marisol Zelaya Other [facility] Other 04-15-2023 10:30-0400 Body temperature 97.6 [degF] Marisol Zelaya Other [facility] Other 04-15-2023 10:30-0400 Body weight 139.26 kg Marisol Zelaya Other [facility] Other 04-15-2023 10:30-0400 Diastolic blood pressure 80 mm[Hg] Marisol Zelaya Other [facility] Other 04-15-2023 10:30-0400 Respiratory rate 18 /min Marisol Zelaya Other [facility] Other 04-15-2023 10:30-0400 SaO2% (BldA) [Mass fraction] 98 % Marisol Zelaya Other [facility] Other 04-15-2023 10:30-0400 Systolic blood pressure 125 mm[Hg] Marisol Zelaya Other [facility] Other Encounters Encounter Date Encounter Type Care Provider Facility Start: 02-22-2024 End: 02-22-2024 ambulatory [facility] Start: 01-23-2024 End: 01-23-2024 ambulatory [facility] Start: 01-16-2024 End: 01-16-2024 ambulatory [facility] Start: 01-10-2024 End: 01-10-2024 ambulatory [facility] Start: 11-24-2023 End: 11-24-2023 ambulatory [facility] Start: 09-23-2023 End: 09-23-2023 ambulatory Abbey Robin Other [facility] Other Start: 09-23-2023 Office outpatient visit 15 minutes Abbey Robin [facility] Start: 08-24-2023 End: 08-24-2023 ambulatory MILAN P HOUSE Facility:[facility] Start: 08-24-2023 End: 08-24-2023 ambulatory MILAN P HOUSE Facility:[facility] Start: 08-15-2023 End: 08-15-2023 ambulatory Kiel Polk MD Facility:[facility] Start: 07-26-2023 End: 07-26-2023 ambulatory Rashad BRADSHAW Facility:[facility] Start: 05-24-2023 End: 05-24-2023 ambulatory MILAN P [facility]SE Facility:[facility] Start: 05-10-2023 End: 05-10-2023 ambulatory [facility] Polk [facility] Start: 04-15-2023 End: 04-15-2023 ambulatory Marisol Zelaya Other [facility] Other Start: 04-15-2023 Office outpatient ne w 20 minutes Marisol Zelaya [facility] Start: 02-15-2023 End: 02-16-2023 ambulatory MESSI LEAVITT . Facility:[facility] Start: 02-01-2023 End: 02-01-2023 ambulatory MESSI LEAVITT . Facility:[facility] Start: 01-06-2023 End: 01-07-2023 ambulatory KALI MAN . Facility:[facility] Start: 10-06-2022 End: 10-07-2022 ambulatory [...] :1532 Payers Date Payer Category Payer Medicare [id number] 2.1 [id number] 1975 Unknown [id number] 2.16.84 0.1.116754.3.579.259 1975 Unknown [id number] 2.16.84 0.1.235549.3.579.2.593 1975 Unknown [id number] 2.16.84 0.1.284403.3.579.2593 1974 Unknown [id number] 2.16.84 0.1.631274.3.579.2.593 1975 Unknown [id number] 2.16.84 0.1.354611.3.579.2.593 1974 Unknown [id number] 2.16.84 0.1.255138.3.579.2.593 1975 Unknown [id number] 2.16.84 0.1.747585.3.579.2.593 1975 Unknown [id number] 2.16.84 0.1.192160.3.579.2.593 1975 Unknown [id number] 2.16.84 0.1.274970.3.579.2.593 1975 Unknown [id number] 2.16.84 0.1.320828.3.579.2.593 1975 Unknown [id number] 2.16.84 0.1.018595.3.579.2.593 1974 Unknown [id number] 2.16.84 0.1.269584.3.579.2.593 1975 Unknown [id number] 2.16.84 0.1.079960.3.579.2.593 1975 Unknown [id number] 2.16.8 40.1.556623.3.579.2.71 1974 Unknown [id number] 2.16.8 40.1.162769.3.579.2.71 1974 Unknown [id number] 2.16.8 40.1.393856.3.579.2.71 1975 Unknown [id number] 2.16.8 40.1.617106.3.579.2. 1974 Unknown [id number] 2.16.8 40.1.328066.3.579.2.71 1974 Unknown [id number] 2.16.8 40.1.632909.3.579.2. 1974 Unknown [id number] 2.16.8 40.1.956945.3.579.2.718 1960 Medicare [id number] Unknown [id number] Social History Date Type Detail Facility Unknown if ever smoked [facility] Other Sex Assigned At Sex Assigned At Bir th [facility] Other Clinical Notes 04-15-2022 to 02-22-2024 Note Date & Type Note Facility 02-22-2024 Note Entered by DYLAN NAILS DO on February 22, 2024 11:51:43 EDT From: MILAN NAILS DO To: [facility] Sent: 02/22/2024 11:51:43 EDT Subject: Medication [...] 25 Refills: 5 Substitutions Allowed Route To [facility] Approved SUMAtriptan (sumatriptan 100 mg tablet) TAKE 1 TABLET BY MOUTH DAILY Qty: 12 EA Days Supply: 12 Refills: 2 Substitutions Allowed Route To [facility] Approved with modifications: propranolol (propranolol ER 80 mg capsule,24 hr,extended release) TAKE 1 CAPSULE BY MOUTH DAILY Qty: 30 cap(s) Days Supply: 30 Refills: 5 Substitutions Allowed Route To [facility] Patient matched by MILAN NAILS DO on 02/22/2024 11:50:58 EDT From: [facility] To: MILAN NAILS DO Sent: February [...] Refills: 2 Substitutions Allowed Notes from Pharmacy: [facility] 01-23-2024 Note Entered by DYLAN NAILS DO on January 23, 2024 13:46:16 EDT From: MILAN NAILS DO To: [facility] Sent: 01/23/2024 13:46:16 EDT Subject: Medication [...] 11 Substitutions Allowed Route To Pharmacy - [facility] Patient matched by MILAN NAILS DO on 01/23/2024 13:45:54 EDT From: [facility] To: MILAN NAILS DO Sent: January [...] Refills: 11 Substitutions Allowed Notes from Pharmacy: [facility] 01-16-2024 Note Entered by DYLAN NAILS DO on January 16, 2024 14:24:31 EDT From: MILAN NAILS DO To: [facility] Sent: 01/16/2024 14:24:31 EDT Subject: Medication Management Documented Complete:omeprazole (omeprazole 20 mg oral delayed release capsule) Signed by MILAN NAILS DO 01/16/2024 14:24:00 EDT Approved with modifications: omeprazole (omeprazole 20 mg capsule,delayed release) TAKE 1 CAPSULE BY MOUTH DAILY Qty: 30 cap(s) Days Supply: 30 Refills: 11 Substitutions Allowed Route To Pharmacy - [facility] Patient matched by MILAN NAILS DO on 01/16/2024 14:24:11 EDT From: [facility] To: MILAN NAILS DO Sent: January [...] Refills: 11 Substitutions Allowed Notes from Pharmacy: [facility] 11-07-2023 Note Entered by DYLAN NAILS DO on November 07, 2023 07:53:45 EST From: MILAN NAILS DO To: [facility] Sent: 11/07/2023 07:53:45 EST Subject: Medication [...] 5 Substitutions Allowed Route To Pharmacy - [facility] Approved with modifications: lisinopril (lisinopril 20 mg tablet) TAKE 1 TABLET BY MOUTH DAILY Qty: 90 tab(s) Days Supply: 90 Refills: 5 Substitutions Allowed Route To Pharmacy - [facility] From: [facility] To: MILAN NAILS DO Sent: November 06, 2023 9:32:22 AM LIFT SUPERVISOR Subject: Medication Management Due: November 07, 2023 12:07:40 AM LIFT SUPERVISOR On Hold Pending Signature Drug: fexofenadine (Leigh [...] Refills: 5 Substitutions Allowed Notes from Pharmacy: [place] 38875-05-2024 Evaluation note Encounter Date Diagnosis Assessment Notes [...] 3 days Sep, Bronchitis (ICD-10 - J40) [facility] Other 11-07-2023 NotePatient Education Materials Follows: Sutured [...] and water are not available, use hand building performance consultant. ? Change your dressing at least once [...] at home: Medicines ? Take or apply fohq-fcq-umuyonz and prescription medicines only as told by [...] by your health care provider. (morecontent not included)...[id number] Note Entered by MILAN NAILS DO on June 28, 2023 14:22:45 EDT From: MILAN NAILS DO To: [facility] Sent: 06/28/2023 14:22:45 EDT Subject: Medication Management Submitted: Complete:lisinopril (lisinopril 20 mg oral tablet) Signed by MILAN NAILS DO 06/28/2023 14:22:00 EDT Approved lisinopril (lisinopril 20 mg tablet) TAKE 1 TABLET BY MOUTH DAILY Qty: 90 tab(s) Days Supply: 90 Refills: 0 Substitutions Allowed Route To Pharmacy - [facility] From: [facility] To: MILAN NAILS DO Sent: June [...] Refills: 0 Substitutions [facility]owed [id number] Note Entered by MILAN NAILS DO on May 24, 2023 07:28:08 EDT From: MILAN NAILS DO To: [facility] Sent: 05/24/2023 07:28:08 EDT Subject: Medication Management Documented Complete:lisinopril (lisinopril 20 mg oral tablet) Signed by MILAN NAILS DO 05/24/2023 07:28:00 EDT Approved lisinopril (lisinopril 20 mg tablet) TAKE 1 TABLET BY MOUTH EVERY DAY Qty: 7 tab(s) Days Supply: 7 Refills: 0 Substitutions Allowed Route To Pharmacy - [facility] Patient matched by MILAN NAILS DO on 05/24/2023 07:27:02 EDT From: [facility] To: MILAN NAILS DO Sent: May [...] Refills: 0 Substitutions [facility]owed [id number] Evaluation note* Encounter Date Diagnosis Assessment Notes [...] is not contagious from itself or drainage. [facility] Other 05-30-2023 NoteCONSULTATION CONSULTATION DATE: 02/15/2023 TO: [...] the lower extremities. MEDICATION: Current medication includes [place] 5 mg t.i.d. p.r.n. Patient reports it [...] our patients to inform us about any asbn-qmt-sttotzo medications or herbal remedies/nutritional supplements/alternative remedies. 2. [...] treatment options with their primary care provider.[id number] Note CONSULTATION CONSULTATION DATE: 01/06/2023 TO: Dr. [...] our patients to inform us about any kzhf-skv-cpsgwkg medications or herbal remedies/nutritional supplements/alternative remedies. 2. [...] treatment options with their primary care provider.[facility] [id number] Note CONSULTATION PROCEDURE DATE: 10/06/2022 PREOPERATIVE DIAGNOSIS: [...] will be followed up in the office.[facility] [id number] NoteCONSULTATION CONSULTATION DATE: 08/26/2022 HISTORY OF PRESENT [...] his muscle relaxer. Our clinic prescribes his [place] 5/325 b.i.d. and diclofenac 75 mg b.i.d. [...] normally does. All questions were answered today.[facility] [id number] NoteCONSULTATION CONSULTATION DATE: 07/22/2022 HISTORY OF PRESENT [...] a cane. He has seen Neurosurgery at [facility] in the past, which they feel, at this time, he is not a surgical candidate and to be managed by Pain Management. He current does see Dr. Galeas at [facility] as well. Activities that aggravate his pain are pulling, sitting, walking, lying down and bending. He will alternate heat and ice which he feels does not make a significant difference. Medications include trazodone 50 mg q.h.s., tizanidine 4 mg b.i.d., Lyrica 50 mg t.i.d., diclofenac 75 mg b.i.d. and [place] 5/325 b.i.d. He does attend pool therapy at the [facility] 2-3 times a week, which he [...] be followed up in the clinic thereafter.[facility] 04-22-2022 NoteCONSULTATION PROCEDURE DATE: 04/22/2022 PRE [...] will be followed up in the office.[facility] [id number] NoteCONSULTATION CONSULTATION DATE: 04/15/2022 This is a [...] mg b.i.d., Lyrica 50 mg b.i.d. and [place] 5/325 b.i.d. He is complaining of trouble [...] is gained for his trigger point injections.[facility] Narrative - Reported* Type Description Date Medical History HTN (hypertension) Medical History GERD (gastroesophageal reflux di sease) Medical History Chronic pain Medical History Anxiety Surgical History tonsillectomy and adenoidectomy Surgical History ablasion [facility] Other History general Narrative - Reported* Type Description Date Medical History HTN (hypertension) Medical History GERD (gastroesophageal reflux di sease) Medical History Chronic pain Medical History Anxiety Surgical History tonsillectomy and adenoidectomy Surgical History ablasion Surgical History nerve block Surgical History epidural [facility] Other Summary Purpose Family History No Family [...] section and content) DATE CREATED AUTHOR 03/09/2018 [facility] DATE CREATED AUTHOR AUTHOR'S ORGANIZ ATION 01/19/2022 [facility] DATE CREATED AUTHOR AUTHOR'S ORGANIZ ATION 02/25/[address] [facility] DATE CREATED AUTHOR AUTHOR'S ORGANIZ ATION 03/03/2024 [facility] REASON FOR VISIT (unrecogniz ed section and [...] BE BASED ON THE PRIMARY CLINICAL RECORDS. [employer] provides no warranty or guarantee of the accuracy or completeness of information in this document.
== END 2024-04-04 15:32 | disposition home or self-care (01) ==
PROVIDERS: PCP Family Medicine; Visit Provider Nurse Practitioner
DX: M54.16 Radiculopathy, lumbar region (principal); M47.816 Spondylosis without myelopathy or radiculopathy, lumbar region; Z79.891 Long term (current) use of opiate analgesic; M54.12 Radiculopathy, cervical region
CPT/HCPCS: G0463

== ENCOUNTER 2024-04-23 07:28 | Outpatient (OUT) | payer MEDICARE, SELFPAY ==
--- NOTE | 2024-04-23 | MR_ITS ---
[address] [address] Patient Name: DION ANDRES MRN: [id number] date: 1975 Sex: M Assigned Patient Location: MRI Current Patient Location: Accession/Order Number: [id number] Exam Date: 04/23/2024 07:41 Report Date: 04/24/2024 09:39 At the request of: ABEBA SCHAFFER Procedure: MR cervical spine wo con EXAM: MR cervical spine wo con REASON FOR EXAM: Cervical radiculopathy. TECHNIQUE: Multiplanar, multisequence imaging of the cervical spine was performed without contrast COMPARISON: Radiographs 08/26/2020. FINDINGS: Study mildly degraded by motion. Limited evaluation the posterior fossa is unremarkable. The visualized spinal cord demonstrates grossly normal caliber and signal. Normal cervical lordosis. Vertebral body heights and facet alignments are maintained. No acute or aggressive osseous abnormality is evident. Limited evaluation of the paravertebral soft tissues is unremarkable. C2-C3: No focal disc herniation identified. No spinal canal stenosis. Mild bilateral neural foraminal stenosis secondary to uncovertebral degeneration and facet arthropathy. C3-C4: No focal disc herniation identified. No spinal canal stenosis. Mild right and moderate to severe left neural foraminal stenosis secondary to uncovertebral degeneration and facet arthropathy. C4-C5: Minimal broad-based disc bulge without spinal canal stenosis. Mild bilateral neural foraminal stenosis, right greater than left secondary to uncovertebral degeneration and facet arthropathy. C5-C6: Mild broad-based disc bulge without spinal canal stenosis. Mild left and moderate right neural foraminal stenosis secondary to uncovertebral degeneration and facet arthropathy. C6-C7: No focal disc herniation identified. No spinal canal stenosis. Mild right neural foraminal stenosis secondary to uncovertebral degeneration and facet arthropathy. C7-T1: No focal disc herniation identified. No spinal canal or neural foraminal stenosis. MR/MR cervical spine wo con IMPRESSION: 1. Mild multilevel degenerative disc disease and facet arthropathy throughout the cervical spine. No focal large disc herniation or severe spinal canal stenosis. Electronically authenticated by: CIERA DALEY Date: 04/24/2024 09:39
--- OUTSIDE RECORDS SUMMARY | 2024-04-23 07:32 | XMS_ITS | CCD ---
Author Organization 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 Name Role Phone KIRNUS, DALLAS Unavailable Unavailable [...] ., NARENDOMEGAATH Admitting Tiffany vailable HALKER ., NTAALIYA Consulting Unavailable HOUSE, DR SOLO Primary Care [...] Unavailable HOUSE, DR SOLO Primary Care Unavailable IGL ., DR LUCY Maurice Attending Unavailable GIL ., DR LUCY Maurice Admitting Unavailable CONWAY ., KALI Wilson Unavailable HOY ., DR GONZALEZ Primary Care Unavailable GIL ., DR LUCY Maurice Attending Unavailable GIL ., DR LUCY Maurice Admitting Unavailable HOUSE, DR SOLO Primary Care Unavailable CONWAY ., KALI Consulting Unavailable LAKSHMIPATHY ., LENCHOATH Attending Tiffany vailable LAKSHMIPATHY ., MESSI Admitting Tiffany vailable LAKSHMIPATHY ., MESSI Consulting Tiffany vailable HOUSE, DR SOLO Primary Care Unavailable Marisol Zelaya Unavailable Abbey Robin Unavailable COMFORT JIMENEZ Attending Unavailable HOUSE, MILAN P Primary Care [...] P Primary Care Unavailable HOUSE, MILAN P Attending Unavailable HOUSE, MILAN P Primary Care Unavailable HOUSE, MILAN P Admitting Unavailable HOUSE, MILAN P Attending Unavailable HOUSE, MILAN P Primary Care Unavailable HOUSE, MILAN P Attending Unavailable HOUSE, MILAN P Primary Care Unavailable Rashad Bowman Attending Unavaila ble Rashad Bowman Admitting Unavaila ble HOUSE, MILAN P Primary Care Unavailable HOUSE, MILAN P Attending Unavailable HOUSE, MILAN P Primary Care Unavailable HOUSE, MILAN P Attending Unavailable Medications Current Medications Medication Drug Class(es) Dates Sig (Normalized) Sig (Original) Acetaminophen / HYDROcodone (2 sources) Opioid Agonist take 1 tablet by mouth every six hours as needed Grant 5-325 MG 1 tablet as needed Orally every 6 hrs Active [id number] actuat albuterol 0.09 mg/actuat metered dose [...] 30 Days Active take 1 capsule by [facility] every twenty-four hours DULoxetine HCl 60 [...] days Mar, Not-Taking/PRN pregabalin 200 mg oral capsu le (2 sources) Pregabalin 200 M G Oral [...] Test Name Value Interpretation Reference Range Facility Patient Letteron 04-11-2024 Patient Letter [id number] 36#1.00[facility] Outside Recordson 04-05-2024 Outside Records [id number] 3#1.00[facility] Outside Records [id number] 9#1.00[facility] Rad - Other Radiology Report on 04-02-2024 Rad - Other Radiology Report [id number] 44#1.00[facility] Outside Recordson 03-02-2024 Outside Records [id number] #1.00[facility] Outside Recordson 12-08-2023 Outside Records [id number] 49#1.00[facility] Outside Recordson 09-28-2023 Outside Records [id number]#1.00[facility] Coding Summaryon 08-25-2023 [facility] RngzruazXRs8xMl+PGh lYWQ+XC6ZIJLdQ71toT LusN1cX6MQQJfJZpveN APTJDvHScWylsEcZT2x aXNjZXJu IC8+AM5iXCUeMrputKR ej0P4mUJ7S12yot5mNJ dvwZV0OPXcIlJfbmtmz 7orpBr4TRxvPtqgCoKq HUDemD12KOK2gK32Gs3 5vQRiqHHzk8scuNw2Nm RqKHYvMJK9pDszEYpkb 1IoTRFvP31asJWsk9M3 IGNvbGxhcHNlOyBlbXB 4dO7jYAfcfdnio8caqm joGyy8ew31zBYsv9H3n JV2V1RfugA4HNDypZTg CduriEHCmB5jbcwxt7l yvfgrHaIyZUVvNMf0AP b2PZZrtJkuOhYpFJ85C IT4CQCtbnDcC5BuKHPa uSefVeM0y3C4Mv1UI1T TGrlnK1NINWLHZTdjzS Q+OW82ox99S3HnAdxfH nd0PRJxLOR6hOF1iF4k FOQhLOhxl6H9gFY1U4G lucWtgi5te3quXYRpZL cxX60sqNXog2O9ILSiu OX5VHEegJznTzBxyM40 Oyc+KMLaqMzzu8LmSuf yr7pst3jtjBl6OmnfNZ XpfzPicYzcNKA7o6YwV h1dFBGzzRR0vWY5gW7b SlPmLzQ1ZBqwT484FqV skNCzRfivH58dI3DvhJ A+AEIrOzz3EHGujHfyH N7wC2DdPQNqlqpfpMCi cCjgIG7mBDBcxdhrIDC jbR5pFRRiV3g6IeIwAu E2WSqpR6EuCKYtkbwcQ q00lQ1yGiThZkI8QJve W9WznwD5JPAgzDAdUDh pIFX8G87rv8W4BBUrXS CpHJD6zPN5rM4krHjpi jogbGVmdDsgdmVydGlj NPgcMRgjO574ATAkmQx nPkNvZGluZyBEYXRlOi AgMTIvMDcvMjAyMzwvd GQ+SDAhZKH3gZbfIURk vFGoDYnmOo1zuFzneSq lUS2xLJMbkcrkHRXdfZ 3wIZFngEQdnBviQX6dB SIsispdd119UzSxYMI6 SUFkuJIdQ0LxmL5lPbQ bJPFiEPAsW5FqgNEvII zzM341ESyfWgZ5ZOQvb wSkJ6CwGQKfyKtsPzM3 f1V3Xz1Fg8YkefazB6J rjCUaXlEzZylmQIb2R1 RkPjwvdHI+KO19TFDfF I30XNl5ZBY0bFzyMGno SCWmC6SdpL7cHjSfRKM kZGRkOyc+PHRhYmxlIH dpZHRoPScxMDAlJyBzd DhyTB6bMd0uFIEpOUHu mAnqzQGmKaWmm0nuWPB mHPvkIV3cuDafQ3XbhJ X4VVWsq3v8Ac95G91sJ 3JvdXA+CNJzwTO0oPL5 wA2tTqAbVpI8YCkkL13 0HvJcaAUrUgqga8rrk5 pliBg2AkB4MLGlnzBvs LytOOU8q7MyLa67K13d IHdpZHRoPSIxNSUiIHZ lvJncrn8sfU7pOu7+PG EfpSS4lKF8fK0pMaNlX jS5QRgdI493XwNvgJHf Vaobu6ifk6dqqQx0RhL wFYSfpkDshNqgSNT3e0 NcVc82P8TsfOdxn6WgM gi0nb71gHZfn8Q1xXH0 D3NqKQOjkimjzAAxqMx lNP4dHHBdmxfeTWGaaI 2zZGKgJ7y6LaRvPmD9W FuqZ5ZffoS3LNIjvKPy XPNgtBHJmG9uskfoi6z qkproUyFnPYUzBLx4NC q9VXIpjEriYsWxJVH7Q hO6KSS2cFTdmY8fiGhb rbseoH6vGta+ZHA8rWT fgDRJOJ7pHxqdoJX+PH ZzVCY4xBacGZpbCLBub A8eEZBaV8e4YaCtLgV6 NUptX3QlmgD7NFOgvXY sQBOmpWOKxL9cbiihd6 vjrvahEoFwSWMuZBf9W Oj7NGZwsJpaUlNkUSK1 NcL8BZC9rKZheS0xaVc runnlqK3nCan+QmlydG nmRCJ5FZw3R0KeYdg2L TWldKlhOR7usUTvETrb Zf9iwOwvzYbyAJ1kZJF zmboum541UjJgp0wsCS LwjOViXAaqTEV6A06yy 7Z3AQDlZZRkCWA9gCI5 kR4mqKlamtekxKKgaUr gdmVydGljYWwtYWxpZ2 12KJKjmGbpHqXxJRg0R 0VjBag0MJRdkMpzZS7o bANoBMdjXq2sdDpdzBa oNI1oEBMxresdy744Ej Hef0baQNGczVFtYHpyF XC0P77zt5B0EXBoJAUa ZGZ3wUR1cM6jxEhczme gbGVmdDsgdmVydGljYW yvSMrpJ987KAMixUuvC xKeeHs3M5KhJft5EECu dYyyWS0ipXPsGVkmYi8 vkHremTooYE9wLEJqfe krt512YsLqh5euJUJbs UXcPZwyDKJ7N44no9V7 SIUiULUhBDY6nBP8mO7 hbGlnbjogbGVmdDsgdm AhiKuoTEnjLNiiU027D HRvcDsnPlBhdGllbnQg GDuvLTe6Q7KfCmxuqJN +JV60TNXwTB53vWQczR Vbh5nhhGh5IxQgFAQwM YL8gTamDGwid4SmNIDi J62wpRKji2Z4UAGkeHg nfWDgRbWziLC6zQ1lOY kewzaev7oriwlfPhzal 9bmkp62fZ81C70rWTjq ZHRoPSIzMCUiIHZhbGl rmr7wsJ3bJp0+PGNvbC W2sWE1mI7bRTMrDqN0P XpsT849RkGyfYMmNmog n7igk3xofUi6FeM3DAK gcfQhrCgwGIV7g2DqRq 66L94zNNbfEJLoVOAxJ STqSXOdjHtlrd0hlF9y Ii8+IWOwxXJ1xBW6hL4 oBnAjWwT0SIgkI571Xq IsmGReGezlK90gV7Idk XA+IDUiDki1XXKebGaj BY1wgWTyIWluOt0wFZV 8WuTxWtBxBRhnE2FiBB QphageppoluVU5PPPrF OUdnW87Wu7vnUkaMXGr jVUXyW2upbqce0tfwpt qRaPlUNRnAFq9QOh0SC QzxUyeIsPyIXH8EhE1K MY2lGBovJ9uiUrkjvsv qX1hB1TqBBIacsloSf9 6nW2dFvLgGjA0APtqIn c+H9GCVP8RCuyzK2DAR VVUGITKZ4SYZZxbfMY+ FATeCCB9gWoqTUuxLKK daP2hUKRwF9t0SdUmNk Z4CBcyO9WyBELqjnmmG x84bT1jPqIbNxP1ANxm K5JbidH9GCZhlXXrQQg hFXJ1Z09pm6A4RFBmZK EiODG1tRO0sD7sxAwtz jogbGVmdDsgdmVydGlj XWemSJccV556KYExhEs bJjPnWdYtHmE5RwE3W3 GsBvd1FZNadJykKG2xt GNxZQjuKa4tgHboiKyd OC4oHQCmpytcAROpdJ5 oYNJddEZtrWwaYU1sEH Mohgxvp992SfSzPFQ1X XQwvFGyX3DrzR6wJdRh PGRtAZMtS0LcmVZlSRs qS694KZpoUvN7QOPkth JqL1YuDKGizQxeKdV4o 3X0Yb13VXZWHCSicljx dGQ+UYPkHDM7eEtbYId tHOOwdA9gYSGzO7w1Yw JyIoW0LMiyG5UyDLZdk dooTi16qQ5uSdAgLiF4 XPfmA2CipuS2DQDurLR pVVhvXHV7J20zl2N5EV GxXFRhJJJ9fOX3lQ7rm GlnbjogbGVmdDsgdmVy eQgeQDehHUmjB519NTI gyOsnDo5BUYM7K5WuAs n2BHTwgRvyUN0zrHDtV TkwMi1ghBvhbManTN8n NOWyiokpMUQjmL7dLSQ vdZGkvGjdYC8iWEUiug rxc570RnFhPPX2GKDug IVwE3WnoJ7hHeNpAOOa ATTbG2DpxXKsUSjhS73 7ZMchUjI4IZHjfsXsZ3 EvEGUguMnkGvD4e6V0H c4CNRirjHG+FS90df62 F6IeUlxrRah3GRWsKQG 0cAB2oK2jJAXmUPpte3 P8tNH4K9TckrOopu3pb 5zyJIEoOQutQ16rnCLe u3B2DAOgtVX0RVJbpGt hSmZuaN15Fxp+PGNvbG teb8UvUbalk4yeo6xol Hg0HeEfRXCpixBkvVpk EJG2c2HjGr48O13nIKw pZHRoPSIzMCUiIHZhbG albj7pmX0xLy1+PGNvb EK6xVD1kO2yMdKtJpM7 LJdfL425YbKqoKGbYws zw7klz6odsHn3LkYuNT KbkdAiiPsdFZY9i7XyA n37N5HyuDulw3CcPby8 yp34wHEqa3T1fJF5F1Q hZGRpbmctbGVmdDogMC 9bNICiibcoAHYjnY2tP APzX2u8HeJfJuP7OJyg Y7ThgeB2JAFaySNpXLV ooOLRzU9hvocxp3uytr akUhLhXLMiYXw4KKy6K ZUnaJteJnXlJTT5UxT2 MLM2uNZssH9hfGrodhj ahQ8sWzi+FWl0s0uatM NsBJ1iiGH3BB41TX43r HCen6C3rIS1J9BnPJDl qsyftggteKA6RECnVYP jsS63Ce1mhXhmFy7dUW VqLST1FRYetGIuW2Upi W7uZrXfHHHtJCAdA7Yw hONzLZwiM538KVrkBoU 2ZAJjgmWkY8RpATYxdI tlZdU1c3B6Vl4QGA62C U39GS39vVUmi1Q9rLY6 O4WjGWByymfrppvvyRW 9BBVdYYNwoX61Ko2pjT kdQv2kKPAwRQZ2SRVee KXlZ9XyzD3dUuVdIYFs WBHdL6KdwSXnXCvbK59 9WTcgUjX1QRQclpRbP7 CdRNFehKxgTbC9o7Y0N u0FOy69WR31TG20eASt b8M5lMD1Q0SrYOFtudo vfogumJI1POJhZXDzlT 96Vh1xzKrmKz5dGETzO AJ8MTHyiQLpZ1CojT9m RzCmUJJrREGtG2ZeuUV bUJenS193JPrlHkK7KC CvgeLrV1AsYHMbnWeoH vM2j1W7Ps0ZRTnswjd4 Z5BlSkdsuNQ+QX06BZJ mTY28qGCmvBUih8ugfI e5NdLqUFUzCLB9oTuoJ Qlrx2QbTGHwY95ewTMh c2U (more content not included)... Normal [facility] .Auto Diff 08-24-2023 Auto [place] % 6 % Normal 09-30 [facility] Comment on above: Performed By: #### 7 363021, 48982119, [id number], 4770010, 51393974, [id number] ####[facility] (DEFAULT)[address] [place] [address] 22182 Baso Abs# 0.1 x10 Normal 0.0-0.2 [facility] Comment on above: Performed By: #### 7 774207, 14930321, 4038017127, 7762804, 09529609, [id number] ####[facility] (DEFAULT)[address] [place] [address] 27344 Basophils/100 WBC (Bld) 1.0 % Normal 0.2-2.0 [facility] Comment on above: Performed By: #### 7 413513, 19531093, 2995642518, 3253478, 54274029, [id number] ####[facility] (DEFAULT)[address] [place] [address] Eos Abs# 0.1 x10 Normal 0.0-0.4 [facility] Comment on above: Performed By: #### 7 626436, 80493810, 7212862232, 3390970, 62324268, 3657917328 ####[facility] (DEFAULT)[address] [place] [address] 78933 Eosinophils/100 WBC (Bld) 1.1 % Normal 0.9-4.0 [facility] Comment on above: Performed By: #### 7 298292, 84439692, 0539828845, 1450822, 33879413, 7673509145 ####[facility] (DEFAULT)[address] [place] [address] 87917 Lymph Abs# 2.1 x10 Normal 1.3-2.9 [facility] Comment on above: Performed By: #### 7 712585, 38377231, 5494321073, 5167588, 30452793, 9938003541 ####[facility] (DEFAULT)[address] [place] [address] 40522 Lymphocytes/100 WBC (Bld) 26 % Normal 14-48 [facility] Comment on above: Performed By: #### 7 699907, 87744643, 3563560457, 1102444, 49190167, 9283404358 ####[facility] (DEFAULT)[address] [place] [address] 72891 Spalding Abs# 0.5 x10 Normal 0.0-0.8 [facility] Comment on above: Performed By: #### 7 586903, 52491998, 7947449860, 8655174, 75395789, 0486611890 ####[facility] (DEFAULT)[address] [place] [address] Neut Abs# 5.2 x10 Normal 1.5-9.2 [facility] Comment on above: Performed By: #### 7 804577, 72094637, 7754223744, 6324523, 40008750, 1244759721 ####[facility] (DEFAULT)[address] [place] [address] Neutrophils/100 WBC (Bld) 65 % Normal 44-88 [facility] Comment on above: Performed By: #### 7 198211, 26724014, 6762699267, 5832027, 99975142, 3519717836 ####[facility] (DEFAULT)[address] [place] [address] CBC w/ Auto Diffon 3 Erythrocyte distribution width (RBC) [Ratio] 13.7 % Normal 11.5-15.0 [facility] Comment on above: Performed By: #### 7 818370, 64392051, 0153813300, 9584704, 41229238, 7756831605 ####[facility] (DEFAULT)[address] [place] [address] Hematocrit (Bld) [Volume fraction] 45.6 % Normal 34.8-51.9 [facility] Comment on above: Performed By: #### 7 671700, 99139566, 9337569519, 5633758, 72811848, 1328771927 ####[facility] (DEFAULT)[address] [place] [address] Hemoglobin (Bld) [Mass/Vol] 15.2 g/dL Normal 11.8-17.7 [facility] Comment on above: Performed By: #### 7 630679, 35450032, 8907366768, 8977756, 32422903, 7607524549 ####[facility] (DEFAULT)[address] [place] [address] Man Diff? Auto Invalid Interpretation Code [facility] Comment on above: Performed By: #### 7 291016, 12178359, 8684226111, 6825721, 01773804, 7625659339 ####[facility] (DEFAULT)[address] [place] [address] 60162 MCH (RBC) [Entitic mass] 29 pg Normal 24-34 [facility] Comment on above: Performed By: #### 7 709755, 62625118, 4773023007, 1158916, 84408719, 8944794242 ####[facility] (DEFAULT)[address] [place] [address] MCHC (RBC) [Mass/Vol] 33 g/dL Normal 26-37 [facility] Comment on above: Performed By: #### 7 354030, 25630705, 0192625939, 0687661, 99636530, 5461204603 ####[facility] (DEFAULT)[address] [place] [address] MCV (RBC) [Entitic vol] 88 fL Normal 81-100 [facility] Comment on above: Performed By: #### 7 368529, 38277873, 7521659744, 7426165, 43167418, 0523555506 ####[facility] (DEFAULT)[address] [place] [address] Platelet 391 x10 Normal 138-427 [facility] Comment on above: Performed By: #### 7 464258, 57140229, 4465304744, 5129035, 71210120, 9644277795 ####[facility] (DEFAULT)[address] [place] [address] Platelet mean volume (Bld) [Entitic vol] 8.5 fL Normal 6.3-10.2 [facility] Comment on above: Performed By: #### 7 515159, 99072269, 7126183293, 1178806, 75757439, 2919903025 ####[facility] (DEFAULT)[address] [place] [address] RBC 5.19 x10 Normal 3.70-5.30 [facility] Comment on above: Performed By: #### 7 962082, 81928448, 6017892319, 3934207, 20839162, 5370880261 ####[facility] (DEFAULT)[address] [place] [address] WBC 8.0 x10 Normal 3.5-10.5 [facility] Comment on above: Performed By: #### 7 368816, 52334212, 4547776449, 3955420, 50001926, 5121543906 ####[facility] (DEFAULT)[address] [place] [address] CMP Standardon 08-24-2023 eGFR Non AA >60 Invalid Interpretation Code [facility] Comment on above: Performed By: #### 7 717617, 16449807, 3586884862, 8903729, 45180314, 6050297919 ####[facility] (DEFAULT)[address] [place] [address] eGFR AA >60 Invalid Interpretation Code [facility] Comment on above: Performed By: #### 7 724181, 07982328, 9508497434, 0752928, 88434286, 6790610175 ####[facility] (DEFAULT)[address] [place] [address] Albumin [Mass/Vol] 4.4 g/dL Normal 3.5-5.0 [facility] Comment on above: Performed By: #### 7 882313, 57042744, 4252671225, 8107524, 76173364, 7889728189 ####[facility] (DEFAULT)[address] [place] [address] Alk Phos 60 IU/L Normal 32-91 [facility] Comment on above: Performed By: #### 7 887420, 19284400, 3075766828, 4821165, 75802812, 1204315836 ####[facility] (DEFAULT)[address] [place] [address] ALT [Catalytic activity/Vol] 52.0 U/L Normal 17.0-63.0 [facility] Comment on above: Performed By: #### 7 248770, 68545142, 0731860618, 7488360, 10824712, 3697134903 ####[facility] (DEFAULT)[address] [place] [address] 72849 AST [Catalytic activity/Vol] 32 U/L Normal 15-41 [facility] Comment on above: Performed By: #### 7 457607, 97593265, 7508544258, 5238864, 70147623, 0453333676 ####[facility] (DEFAULT)[address] [place] [address] 79470 Bili Total 0.9 mg/dL Normal 0.3-1.2 [facility] Comment on above: Performed By: #### 7 480087, 62908435, 8960872997, 9030678, 32705211, 6329381973 ####[facility] (DEFAULT)[address] [place] [address] 94556 Calcium [Mass/Vol] 9.4 mg/dL Normal 8.9-10.3 [facility] Comment on above: Performed By: #### 7 524705, 00470497, 3612733594, 9150941, 15258540, 9889606618 ####[facility] (DEFAULT)[address] [place] [address] 09373 Chloride [Moles/Vol] 109 mmol/L Normal 101-111 [facility] Comment on above: Performed By: #### 7 014182, 74643527, 5085183301, 7050207, 42544406, 0782817779 ####[facility] (DEFAULT)[address] [place] [address] 77561 CO2 [Moles/Vol] 25 mmol/L Normal 21-32 [facility] Comment on above: Performed By: #### 7 542979, 92719687, 1397706379, 4733871, 09092381, 1886948088 ####[facility] (DEFAULT)[address] [place] [address] 60572 Creatinine [Mass/Vol] 0.74 mg/dL Low 0.90-1.30 [facility] Comment on above: Performed By: #### 7 476229, 46954263, 7672944299, 3994143, 79246593, 4794392854 ####[facility] (DEFAULT)[address] [place] [address] 76688 Glucose [Mass/Vol] 105.0 mg/dL Normal 74.0-118.0 [facility] Comment on above: Performed By: #### 7 316201, 36454562, 4348980569, 0068743, 66631262, 6815660842 ####[facility] (DEFAULT)[address] [place] [address] 81467 Potassium [Moles/Vol] 4.0 mmol/L Normal 3.6-5.1 [facility] Comment on above: Performed By: #### 7 387081, 87447966, 6470379116, 0300622, 93452338, 3908070563 ####[facility] (DEFAULT)[address] [place] [address] 62509 Protein [Mass/Vol] 7.5 g/dL Normal 6.5-8.1 [facility] Comment on above: Performed By: #### 7 898295, 40955409, 0993586190, 9122206, 58748110, 6385406537 ####[facility] (DEFAULT)[address] [place] [address] 77468 Sodium [Moles/Vol] 140.0 mmol/L Normal 136.0-144.0 [facility] Comment on above: Performed By: #### 7 506626, 30600748, 1297609551, 2185325, 45726809, 2596182595 ####[facility] (DEFAULT)[address] [place] [address] 54790 Urea nitrogen [Mass/Vol] 10 mg/dL Normal 8-26 [facility] Comment on above: Performed By: #### 7 511525, 75212686, 8429497660, 2865400, 28419324, 4240214094 ####[facility] (DEFAULT)[address] [place] [address] 49828 Albumin/Globulin [Mass ratio] 1.4 {ratio} Normal 1.4-2.6 [facility] Comment on above: Performed By: #### 7 922091, 39791131, 1214910896, 2905729, 10348201, 5232064716 ####[facility] (DEFAULT)[address] [place] [address] Anion gap [Moles/Vol] 10.0 mmol/L Normal 5.0-19.0 [facility] Comment on above: Performed By: #### 7 306721, 94105612, 3269679238, 6674324, 71756596, 7043885431 ####[facility] (DEFAULT)[address] [place] [address] Globulin (S) [Mass/Vol] 3.1 g/dL Normal 1.5-4.3 [facility] Comment on above: Performed By: #### 7 639152, 51630156, 8270941337, 4641115, 76205551, 5892319511 ####[facility] (DEFAULT)[address] [place] [address] Osmolality 279 mOsm/L Invalid Interpretation Code [facility] Comment on above: Performed By: #### 7 422545, 03971756, 4308796400, 7463040, 43229270, 4813708634 ####[facility] (DEFAULT)[address] [place] [address] Urea nitrogen/Creatinin e [Mass ratio] 13.5 mg/mg Normal 4.6-16.2 [facility] Comment on above: Performed By: #### 7 808578, 71725680, 8043403819, 6662833, 68156751, 3001106190 ####[facility] (DEFAULT)[address] [place] [address] HgbA1c Standardon 08-24-2023 .Hb 16.6 Invalid Interpretation Code [facility] Comment on above: Performed By: #### 7 [id number], [id number], [id number], [id number], [id number], [id number] ####[facility] (DEFAULT)[address] [place] [address] .Hgb A1c 0.59 g/dL Invalid Interpretation Code [facility] Comment on above: Performed By: #### 7 [id number], [id number], [id number], [id number], [id number], [id number] ####[facility] (DEFAULT)[address] [place] [address] Glucose [Mass/Vol] 108 mg/dL Invalid Interpretation Code [facility] Comment on above: Performed By: #### 7 [id number], [id number], [id number], [id number], [id number], [id number] ####[facility] (DEFAULT)[address] [place] [address] HbA1c (Bld) [Mass fraction] 5.4 % Normal 4.6-6.2 [facility] Comment on above: Performed By: #### 7 [id number], [id number], [id number], [id number], [id number], [id number] ####[facility] (DEFAULT)[address] [place] [id number] Reminder Messageson 08-24-20 Reminder Messages -- From: MILAN NAILS DO To: [facility] Clinical Pool ([facility]); Sent: 08/24/2023 12:33:59 EST ! Show up: 08/24/2023 12:33:59 EST Subject: Results Follow Up Actions: Call the patient with result(s) Due Date/Time: 08/25/2023 12:33:00 EST Reminder Comments: looks good Results: Date Result Name Value Ref Range 08/24/2023 10:17 Estimated Avg Glucose 108 mg/dL 08/24/2023 10:17 Hgb A1c % 5.4 % (4.6 - 6.2) Patient called and notified of results. Verbalized understanding. Normal [facility] Reminder Messages -- From: MILAN NAILS DO To: [facility] Clinical Pool ([facility]); Sent: 08/24/2023 12:24:35 EST ! Show [...] % (14 - 48) 08/24/2023 10:17 Auto Spalding % 6 % (1 - 12) 08/24/2023 10:17 Auto Eos % 1.1 % (0.9 - 4.0) 08/24/2023 10:17 Auto Baso % 1.0 % (0.2 - 2.0) 08/24/2023 10:17 Neut Abs# 5.2 x103/mcL (1.5 - 9.2) 08/24/2023 10:17 Lymph Abs# 2.1 x103/mcL (1.3 - 2.9) 08/24/2023 10:17 Spalding Abs# 0.5 x103/mcL (0.0 - 0.8) 08/24/2023 10:17 Eos Abs# 0.1 x103/mcL (0.0 - 0.4) 08/24/2023 10:17 Baso Abs# 0.1 x103/mcL (0.0 - 0.2) Patient called and notified of results. Verbalized understanding. Normal [facility] T4, Totalon 08-24-2023 T4 [Mass/Vol] 9.52 ug/dL Normal 6.09-12.23 [facility] Comment on above: Performed By: #### 7 [id number], [id number], [id number], [id number], [id number], [id number] ####[facility] (DEFAULT)[address] [place] [address] TSHon 08-24-2023 TSH Qn 1.11 m[IU]/L Normal 0.45-5.33 [facility] Comment on above: Performed By: #### 7 [id number], [id number], [id number], [id number], [id number], [id number] ####[facility] (DEFAULT)[address] [place] [address] Coding Summaryon 08-02-2023 Coding Summary HTMLBase 64 OthminzoDGy3oUd+PGh lYWQ+WP9UZBQmQ66wdP ZltC5uO6DTUYiNRaepL HCXZEwBQsLntkQaCC5z aXNjZXJu IC8+EJ8bBAFqDptqzGW ne8B0fSK3G36ghq2aVT ltsKD5TQXzBiMjncxac 8wojRi4QGzaSwpoDwGx XTOyuM55TGH2tL45Cj5 5mKEotGFnw6petLs7Bh MfHDUtRZI7aSszDZodu 0JfFGJmT47klTPru4T7 IGNvbGxhcHNlOyBlbXB 8nN2jGOacfpvyh8excz vjVia4yt94bMLwk3O6z EY7A8QgowE4XFLkrDCx CqgkaPKZpE1zrybso7h koiihRvWhZWPcQWv2TW n3RTJajPgoJwWjLI62J SW7RCQcszPdJ2KjYGSs jEutHwE3m3X0Ff8MJ1H SBqelI5QEEHSUWHdabS Q+II40de42X2OkPpxmW wq6TCBbTWX4oYG3mI8q ENFpAIcgc2L5zQI8V8R whpBvol8rh1rxTTRxFO adP16hcVGcl0N4YKKwl IH9WLJwuQgtOdWlkZ06 Oyc+TGSffPnbz7IaJmj fs7hiq8avzLf1OgqbTI IvmxJoyNerIIQ0k3UvP p9gVGOvzTL3eZV3tB9t BmUpEyF7UBjxC162CpW erXQqSwwbM22aD3DjkS A+HWLiYza8HAOhqSkyL F8lX1XqYQQwujdzjLRe lWhbVH5bYZFxdcrbVZH bzS4hGEQmN2z6RxYzZr F8ASspT0EcXIDfwrusD m19rH5jZdJqSvX8RYri Z1RkiqU2CRVerETxJUv gLEA5X21gw5C6VWCqOW UhEKZ7sIT3hO3ezNjse jogbGVmdDsgdmVydGlj MAfiFPsdS785TLHqfNo nPkNvZGluZyBEYXRlOi AgMTEvMTQvMjAyMzwvd GQ+NRVyIPS1eNtmFZMg uZUoEIbpZt1evTsxuLy fGD4hIBLwantxMJLgeR 9iMZCenFIthDdaDA9kR ISjtaxwb854RyEaFXF4 NTZxnSIbR8YwuE7fBjF wCNFkUFZeR4QstGGrVC xiO567NDycEeZ9HHDen oKmI9ByURJtvWrsQqZ3 n5H3Re5Rz9BhtchqH6X agELhIzCiRwuqHDd8E4 RkPjwvdHI+RW64ZNMcO I63OEk8TJJ7rJjiSPkh FKKbU6KytB5oFbVfQEH kZGRkOyc+PHRhYmxlIH dpZHRoPScxMDAlJyBzd CchLO9eZk2tEHOdXQSy jKhtzTAyHmXpv1dqQXQ nLAxeSG2kzGnrS8MntC H9QYKdz4f2Wv92U90cU 3JvdXA+SXTxlJR9sGN9 eX0pFmIjHtX0BMxiL76 7HgWmmYCoWyxsc6tdd5 zqpDh8JkC0RJEjjnUey BpwJVA6f9FnEg73B22i IHdpZHRoPSIxNSUiIHZ ziUngsf1cgG8vYh3+PG KwlEJ4kHF7nY9dFlXkQ dR5YZqwB608EzKcfZJd Ulhay8tps4gshRo8FfR kYNNxhqYniKplPIU4x4 WqOg80K0EwiKpji8YgX ra9ut09pMJbm5Y1oXB3 Y7WeIRAvuzpheGTjzLl nEB2cOZHktxrsUTWytA 4lDQExR1k6ApTdJbI6O XrtH7SrivJ3EGFxlXDe CNKzfQHFlV8sgahiv5l yfireMcDfOBRzOYo5JE d0MBShiYooWuHzPVR4C dJ9ICT0vYPeuX7wiWee ygxbxU6ySih+FUD3bAD rtBFIPW3eWbfjeUU+PH TcFEQ6vQbqKHjcLQJem O3bHGRfJ2x3RdJrPbD2 CGchY4UaftX5MEErzXK iTDFoxOZTmH4iadvsq6 kueoxyVfZgCEBlFSh2M Wy5FQPhoKghKyArMLD4 GpO5RYE9vVSkkJ7quRa shvdkcB7sHpe+QmlydG weOFA5LOc8R6AyWoq2S JPsbJfjJF1sgZFzOUcc Wy3enZabeUknEI5oCJW fpdscf102TfHbc2yfHS EijRHlIEolWGV7Z17jp 2Q0ALCnMSBsLEE4tLF5 jT6mfViddvmyfHCgxJg gdmVydGljYWwtYWxpZ2 67DVWwvKddPtGvCCx2G 4DcLrf7USMixShlQL6u aHJgRKxsVz7cdZchpQm sVG7rFTYqcxhai079Vd Qpr7toHLDdwZLsELnfJ UD0B77ys5X6RCHdMUDa NKK8iWY7gC9byQrshxa gbGVmdDsgdmVydGljYW byYPugR197OWGrmVjwW vWvyPp2N8BbLuh5WCOw sRxhWL5qcRBvMIitQd5 wtQmizZtpLE3kPOGhgt abj162MaRsf6twPNRyz ZXtZIxrDTJ5C31rl5H2 AJZqODEaCZR1dQK3zM2 hbGlnbjogbGVmdDsgdm BjnAzbIWpgUKbpK397I HRvcDsnPlBhdGllbnQg GSyvEHe6W2TcCiphiDZ +UW63MUPyDX23dJEotJ Tco9tinXv6CdCkGWWoK XO1mThsNKpvz0MeMTDs Z78zsBJcg1N3AZGpnEr vqDOaUlZykLA9jT5eOV hzlqdot4mhftwtFxvbc 9qomu19xS89L53bWLth ZHRoPSIzMCUiIHZhbGl ked7lgY4iOc6+PGNvbC M0yUQ1eP0pDUWrOfW5N KthG567IqSggCIcHjjt w9cjc8xcwIw4YiD3EGY droXafDbiGIN2v3EoYv 76W38cREjkVDIaZSNeG NLsPUVgiEvlle8icT8r Ii8+FCDsqEP6mBE0aM5 aTjEnWuE1MAxtC319Dv VauVCjSesmJ68pV3Amx XA+GSYkTdy9APNzxLgn ZN3pfDEbYMxcGc9tROI 9CwShMgXdABlnD1EwJH UmbrjhubclrGI3NWWfQ FRuyI35Ng8itUbyJDPf fYGQbW7cmxycc1dszqq hJyKfMGHkKPj6XBk7NM SoyUxdJmNkINU6XjX0F UU0oDEsgV5aePulnokp uU3wE1NhHYIxpyzhQn5 9mS7qGjMkKxT8JXoaTt c+F5QMSK6VVpkcL3BNQ ZJELOVNU8EPVLsoaKY+ YSRaZAX6xEwyOYefBLF kmO1aKQIkF3h5DgMxZh H1SWdiD9XjQMGvrbgvO r51vF5qUnYhInJ5AXal J8ZrlqL6SQAwpIDkNAn uLAI6H74xe4N8DGIlFL LlUOF6yEI6vI0zgGthi jogbGVmdDsgdmVydGlj NPjbLDocY962XQShzHz vSsRbHmJtXjY6OoP3P3 PsLql7FVJquQzoJW0il DKcEKgrSu3wtXdpkUfx CD7sJPJwmscoXMOquH5 uLTCikUYfmVspAE4lNT Ntewcav528UeJfNUU4I KEooGVkI9AxtR1rWxXn UPSjIWCyS0QigLPdQOl eW349EGarLpC5RIPyka XbM3ZdBKHlqSeeRaR5a 6N8Yq67BLLBRKMakjto dGQ+XPPoROX7qYdbDZg tLZRnxS3yMHGvV8s7Ml FfHfP0XFunX1OaKPBsj eiwYc31qU9wTbMqAiR8 OZdtQ8PovaZ8GSMkpLZ dMLwbPLQ8O21mc4Q1EK FwNJUuEWV7qHY0pN2qz GlnbjogbGVmdDsgdmVy jBgbOLrtPGayY609KIG dtJljMt6QOFG1N0JeQy t9LHZbpBojFZ4cmMMrK KqbEy9djOxedYkvOQ1a PVBhodrqCTFgvF5tTCM raAZonIzlRN6tNBNjnd vdl048HpAzJPA6JEEbo KMfC2DrzL6pHqIsLXAl BRIyX6LjiQMbLUmfF14 6NOgxQeT0DEGfkoZsV3 QgCAXooLqhBjG1o1C1V x2KZEhudUD+DE01zd98 M4CjYoylCvn5DLLjRVN 5fWL6zO3mEWNnKYcsm0 F8rFJ5R9ZrqaJzcx8xa 7aqJDBgBVkwN53ifQFo x5H6WFCmnDD5YJPxyOq zMfAxxN99Wug+PGNvbG zkz6QzEygzt1xpu3lyf Zk3VdOkPMBsmaAelHyz EXC3u1CeUp54H16cHNa pZHRoPSIzMCUiIHZhbG hlbv4xjN1fMj3+PGNvb MH9tAM6kD7kJsKfXzX9 CXuzH184CuUzdHLsMun bo3yqi1ktbKl0KkBgWQ JnyrQigFaaEJW1a9VrD g43R3DaqTokw2RfUgt1 zh25zGGmk7G3lDM8E6T hZGRpbmctbGVmdDogMC 4xZQZyjhavTSWihB1cJ TDgA9g0KsNjIpI6FDxo J7TfeyH1FZWdnWSbPIB nzIXTjM0kneqct1csht hwDnQrLZQnEPr9YTe6Q CXikCrcLhRiVXA3QnI3 LNC2sFDqcP7azYqtbmo ciD4zVzq+CQv4r8fdhJ OrCV1hbYG9ZA32KQ64w APkk4I3lKC7F9FiGAXr uzagtzfivRF0QCJeXFW uiQ73Qd6gbWeoUo2iRA BvLCP5ZNRbjWNhG9Lcx Z6iHuZyTZMhEEEjK1Bn sKLuMAeqV147FDitYyS 6DGHdknUaQ9QaLUFybA klCbE4x7W2Ae6QEM54S F71AW15qBLze8K5gSR2 L1BjPQDggpgmhiajyUY 1JRAxDGXpgM47Xc5mqV fvIi6sJEMtHJG4ZZThb HUoY6ZclB9aKmSjVTXm OQMvQ2XajGTiRTvlE36 9GAkzAzH7JZQzdgZmI6 DjLUKreRgbHfQ5f0X7L s0RHw22JM27RI87xHJw r5S0fPP9S9MeCBUvdfq lbsqziNU8ISCrLIYmoZ 92Vj2jpLovLo1iLVGaP CK0ENSsiCXyH5CrwH8c MbMkQUTiOPPaO2AxjYR kMWtkU687NAhlNiC9XE XfheBoQ3MpQXQffAkkS xS9y0C0Tm5XTPrsjsm0 P7ClWgmiaSS+ZB05UOW gNQ83wKBivIGmp9krdR n0MwRxYCJmHTZ8gChrU Zapm7XkGJCnB24noANt c2U (more content not included)... [facility] Clinical Summaryon 2022 ED [facility] [address] [place] [address] Clinical Summary PERSON INFORMATION Name: DION ANDRES Age: 47 Years Sex: MALE : 1975 MRN: Acct#: Visit Reason: UC - Laceration; LACERATION ON LEFT HAND Arrival: 07/26/2023 15:38:23 Discharge: 07/26/2023 17:27:00 LOS: 000 01:49 Check In: 07/26/2023 15:38:23 Checkout: 07/26/2023 17:27:00 Address: [address] [facility] [address] PCP: MILAN NAILS DO PROVIDER INFORMATION Provider [...] With: Address: When: MILAN NAILS DO [address] [place] [address] Within 3 to 5 days Comments: Diagnosis [...] wound to hand Patient Understands: Yes - Patient/family/transitions rn care coordinator verbalizes understanding of instructions given Comment: [facility] ED Patient Summaryon 023 ED Patient Summary [facility] [address] [place] [address] PATIENT DISCHARGE INSTRUCTIONS Patient Information Name: DION ANDRES Age: 47 Years Date of : 1975 [facility]: [id number] Reason For Visit: UC - Laceration; LACERATION ON LEFT HAND Arrival Time: 07/26/2023 15:38:23 Primary Care Physician: MILAN NAILS DO Attending Physician: Rashad Bowman Comment: Patient Education With: Address: When: MILAN NAILS DO [address] [place] [address] Within 3 to 5 days Comments: Diagnosis [...] and water are not available, use hand corn picker. ? Change your dressing at least once [...] at home: Medicines ? Take or apply jfhi-cnp-cxcascg and prescription medicines only as told by [...] is impor (more content not included)... [facility] Rec[facility] 023 Urgent Care Record [facility] Care [address] [place], [place] [id number] PATIENT DISCHARGE INSTRUCTIONS Patient Information Name: DION ANDRES Age: 47 Years Date of : 1975 Reason For Visit: UC - Laceration; LACERATION ON LEFT HAND Arrival Time: 07/26/2023 15:38:23 Primary Care Physician: MILAN NAILS DO Attending Physician: Rashad Bowman Comment: Visit Diagnosis: Diagnoses This Visit Puncture wound to hand (S61.439A) UC - Laceration ([id number]) If you received any narcotics, sedation, or [...] documents With: Address: When: MILAN NAILS DO [address] [place] [id number] Within 3 to 5 days Comments: Diagnosis [...] and treatment you received today in the [facility] were for an urgent problem and are not intended as complete care. It is important for you to follow up with a doctor, nurse practitioner, or physician?s assistant manager retail for ongoing care. If your symptoms become [...] so we can reach you if necessary. [facility] has provided you with a complete list of medications post discharge. Please inform your decision support manager/provider of your visit and for further instruction on these medications. Any specific questions regarding your chronic medications and dosages should be discussed with your primary care physician(s) and/or pharmacist. New Medications [id number], [address] [place], [place] [id number], [phone] amoxicillin-clavula ld (amoxicillin-clavul anate 875 mg-125 mg oral tablet) 1 tab(s) Oral Every 12 hours scheduled time for 7 Days. Refills: 0. bacitracin topical (bacitracin 500 units/g topical ointment) 1 huam Topical 2 times a day for 7 [...] delayed release capsul (more content not included)... [facility] XR Hand Complete Lefton 11-0 [...] DO 07/26/23 4:50 pm Technologist: Joseph STEPHENS [facility] Outside Recordson 06-07-2023 Outside Records [id number] 825#1.00OTGTIFF [facility] Patient Handouton 05-12-2023 Patient Handout [id number] [facility] [id number] 25#1.00[facility] LUMBAR SPINE 6 OR MORE VWSon 01-14-2022 LUMBAR SPINE 6 OR MORE VWS [facility] Department of Radiology [address] [place] [address] Patient Name: DION ANDRES : 1975 [...] , Ordering Provider - A JER LOPEZ CRITICAL CARE NURSE PRACTITIONER , Exam: LUMBAR SPINE 6 OR MORE [...] radiographically. Electronically signed: Rashad Adler. Transcribed by: [email or web address], User Resident: Electronically Signed by: RASHAD ADLER @ 01/15/2022 11:40 AM Normal [facility] Comment on above: Order Comment: , ap, lat, flex, ex, obliques, r/o instability or pars defect , Views (X-RAY, LUMBAR SPINE): AP, Lateral, L5-S1 Spot, Obliques, Flexion, Extension , ap, lat, flex, ex, obliques, r/o instability or pars defect , Views (X-RAY, LUMBAR SPINE): AP, Lateral, L5-S1 Spot, Obliques, Flexion, Extension , , , Ordering Provider - Sherice LOPEZ CRITICAL CARE NURSE PRACTITIONER , Vital Signs Date Time Vital Sign Value Performing Clinician Facility 09-23-2023 10:05-0500 Body height Abbey Robin Other [facility] Other 09-23-2023 10:05-0500 Body mass index (BMI) [Ratio] 44.21 kg/m2 Abbey Robin Other [facility] Other 09-23-2023 10:05-0500 Body temperature 98.6 [degF] Abbey Robin Other [facility] Other 09-23-2023 10:05-0500 Body weight 135.81 kg Abbey Robin Other [facility] Other 09-23-2023 10:05-0500 Diastolic blood pressure 82 mm[Hg] Abbey Robin Other [facility] Other 09-23-2023 10:05-0500 Respiratory rate 18 /min Abbey Robin Other [facility] Other 09-23-2023 10:05-0500 SaO2% (BldA) [Mass fraction] 95 % Abbey Robin Other [facility] Other 09-23-2023 10:05-0500 Systolic blood pressure 152 mm[Hg] Abbey Robin Other [facility] Other 04-15-2023 10:30-0400 Body height Marisol Zelaya Other [facility] Other 04-15-2023 10:30-0400 Body mass index (BMI) [Ratio] 45.33 kg/m2 Marisol Zelaya Other [facility] Other 04-15-2023 10:30-0400 Body temperature 97.6 [degF] Marisol Zelaya Other [facility] Other 04-15-2023 10:30-0400 Body weight 139.26 kg Marisol Zelaya Other [facility] Other 04-15-2023 10:30-0400 Diastolic blood pressure 80 mm[Hg] Marisol Zelaya Other [facility] Other 04-15-2023 10:30-0400 Respiratory rate 18 /min Marisol Nathalie Other [facility] Other 04-15-2023 10:30-0400 SaO2% (BldA) [Mass fraction] 98 % Marisol Nathalie Other [facility] Other 04-15-2023 10:30-0400 Systolic blood pressure 125 mm[Hg] Marisol Zelaya Other [facility] Other Encounters Encounter Date Encounter Type Care Provider Facility Start: 04-18-2024 End: 04-18-2024 ambulatory [facility]AN P HOUSE [facility] Start: 04-18-2024 End: 04-18-2024 ambulatory COMFORT LOWE Not Available Start: 04-09-2024 End: 04-09-2024 ambulatory MILAN P HOUSE [facility] Start: 02-22-2024 End: 02-22-2024 ambulatory MILAN P HOUSE [facility] Start: 01-23-2024 End: 01-23-2024 ambulatory MILAN P HOUSE [facility] Start: 01-16-2024 End: 01-16-2024 ambulatory MILAN P HOUSE Facility: [facility] Start: 01-10-2024 End: 01-10-2024 ambulatory MILAN P HOUSE [facility] Start: 11-24-2023 End: 11-24-2023 ambulatory MILAN P HOUSE [facility] Start: 09-23-2023 End: 09-23-2023 ambulatory Abbey Roibn Other [facility] Other Start: 09-23-2023 Office outpatient visit 15 minutes Abbey Robin [facility] [place] Start: 08-24-2023 End: 08-24-2023 ambulatory MILAN P HOUSE [facility] Start: 08-24-2023 End: 08-24-2023 ambulatory MILAN P HOUSE Facility:[facility] Cli abby Start: 08-15-2023 End: 08-15-2023 ambulatory MILAN P HOUSE Facility:[facility] Cli abby Start: 07-26-2023 End: 07-26-2023 ambulatory MILAN P HOUSE [facility] Start: 05-24-2023 End: 05-24-2023 ambulatory [facility]SE [facility] Start: 05-10-2023 End: 05-10-2023 ambulatory Kiel Polk MD Facility:[facility] abby Start: 04-15-2023 End: 04-15-2023 ambulatory Marisol Zelaya Other [facility] Other Start: 04-15-2023 Office outpatient ne w 20 minutes Marisol Zelaya [facility] [place] Start: 02-15-2023 End: 02-16-2023 ambulatory NARENDRANATH LAKSHMIPATHY . Facility:[facility] Start: 02-01-2023 End: 02-01-2023 ambulatory NARENDRANATH LAKSHMIPATHY . Facility:[facility] Start: 01-06-2023 End: 01-07-2023 ambulatory KALI NICOLEIS . Facility:[facility] Start: 10-06-2022 End: 10-07-2022 ambulatory [...] Facility:[facility] Start: 04-22-2022 End: 04-23-[address] LUYC GIL . Facility:[facility] Start: 04-15-2022 End: 04-16-[address] LUCY GIL . Facility:[facility] Start: 03-16-2022 End: 03-16-[address] LUCY GIL . Facility:[facility] Start: 03-09-2018 Ambulatory [facility] LU Facility :1532 Start: 03-08-2018 Ambulatory [place] LU Facility :1532 Payers Date Payer Category Payer Medicare [id number] 2.1 [id number] 1975 Unknown [id number] 2.16.84 0.1.998282.3.579.2.593 1975 Unknown [id number] 2.16.84 0.1.720817.3.579.2.593 1975 Unknown [id number] 2.16.84 0.1.096202.3.579.2.593 1975 Unknown [id number] 2.16.84 0.1.904759.3.579.2.593 1975 Unknown [id number] 2.16.84 0.1.906414.3.579.2.593 1975 Unknown [id number] 2.16.84 0.1.101332.3.579.2.593 1975 Unknown [id number] 2.16.84 0.1.413893.3.579.2.593 1975 Unknown [id number] 2.16.84 0.1.740891.3.579.2.593 1975 Unknown [id number] 2.16.84 0.1.837373.3.579.2.593 1975 Unknown [id number] 2.16.84 0.1.059465.3.579.2.593 1975 Unknown [id number] 2.16.84 0.1.421834.3.579.2.593 1974 Unknown [id number] 2.16.84 0.1.559216.3.579.2.593 1974 Unknown [id number] 2.16.84 0.1.814106.3.579.2.593 1974 Unknown [id number] 2.16.84 0.1.945159.3.579.2.1259 1975 Unknown [id number] 2.16.8 40.1.953949.3.579.2. 1975 Unknown [id number] 2.16.8 40.1.859375.3.579.2. 1975 Unknown [id number] 2.16.8 40.1.705004.3.579.2. 1975 Unknown [id number] 2.16.8 40.1.400626.3.579.2. 1975 Unknown [id number] 2.16.8 40.1.046960.3.579.2. 1975 Unknown [id number] 2.16.8 40.1.749841.3.579.2. 1975 Unknown [id number] 2.16.8 40.1.452577.3.579.2. 1975 Unknown [id number] 2.16.8 40.1.089814.3.579.2. 1975 Unknown [id number] 2.16.8 40.1.481049.3.579.2.718 1960 Medicare [id number] Unknown [id number] Social History Date Type Detail Facility Unknown if ever smoked [facility] Other Sex Assigned At Sex Assigned At Bir th [facility] Other Clinical Notes 04-15-2022 to 02-22-2024 Note Date & Type Note Facility 02-22-2024 Note Entered by DYLAN NAILS DO on February 22, 2024 11:51:43 EDT From: MILAN NAILS DO To: [facility] Sent: 02/22/2024 11:51:43 EDT Subject: Medication [...] 25 Refills: 5 Substitutions Allowed Route To [facility] Approved SUMAtriptan (sumatriptan 100 mg tablet) TAKE 1 TABLET BY MOUTH DAILY Qty: 12 EA Days Supply: 12 Refills: 2 Substitutions Allowed Route To [facility] Approved with modifications: propranolol (propranolol ER 80 mg capsule,24 hr,extended release) TAKE 1 CAPSULE BY MOUTH DAILY Qty: 30 cap(s) Days Supply: 30 Refills: 5 Substitutions Allowed Route To [facility] Patient matched by MILAN NAILS DO on 02/22/2024 11:50:58 EDT From: [facility] To: MILAN NAILS DO Sent: February [...] Refills: 2 Substitutions Allowed Notes from [facility] 01-23-2024 Note Entered by DYLAN NAILS DO on January 23, 2024 13:46:16 EDT From: MILAN NAILS DO To: [facility] Sent: 01/23/2024 13:46:16 EDT Subject: Medication [...] 11 Substitutions Allowed Route To Pharmacy - [facility] Patient matched by MILAN NAILS DO on 01/23/2024 13:45:54 EDT From: [facility] To: MILAN NAILS DO Sent: January [...] Refills: 11 Substitutions Allowed Notes from Pharmacy: [facility] 01-16-2024 Note Entered by DYLAN NAILS DO on January 16, 2024 14:24:31 EDT From: MILAN NAILS DO To: [facility] Sent: 01/16/2024 14:24:31 EDT Subject: Medication Management Documented Complete:omeprazole (omeprazole 20 mg oral delayed release capsule) Signed by MILAN NAILS DO 01/16/2024 14:24:00 EDT Approved with modifications: omeprazole (omeprazole 20 mg capsule,delayed release) TAKE 1 CAPSULE BY MOUTH DAILY Qty: 30 cap(s) Days Supply: 30 Refills: 11 Substitutions Allowed Route To Pharmacy - [facility] Patient matched by MILAN NAILS DO on 01/16/2024 14:24:11 EDT From: [facility] To: MILAN NAILS DO Sent: January [...] Refills: 11 Substitutions Allowed Notes from Pharmacy[facility] 11-07-2023 Note Entered by DYLAN NAILS DO on November 07, 2023 07:53:45 EST From: MILAN NAILS DO To: [facility] Sent: 11/07/2023 07:53:45 EST Subject: Medication [...] 30 Refills: 5 Substitutions Allowed Route To [employer] - [facility] Approved with modifications: lisinopril (lisinopril 20 mg tablet) TAKE 1 TABLET BY MOUTH DAILY Qty: 90 tab(s) Days Supply: 90 Refills: 5 Substitutions Allowed Route To Pharmacy [facility] From: [facility] To: MILAN NAILS DO Sent: November 06, 2023 9:32:22 AM [employer] Subject: Medication Management Due: November 07, 2023 12:07:40 AM [employer] On Hold Pending Signature Drug: fexofenadine (Leigh [...] Refills: 5 Substitutions Allowed Notes from Pharmacy: [facility] 09-23-2023 Evaluation note Encounter Date [...] 3 days Sep, Bronchitis (ICD-10 - J40) [facility] Other 11-07-2023 NotePatient Education Materials Follows: Sutured [...] and water are not available, use hand corn picker. ? Change your dressing at least once [...] at home: Medicines ? Take or apply iavd-kbr-qaaxafa and prescription medicines only as told by [...] by your health care provider. (morecontent not included)...[id number] Note Entered by MILAN NAILS DO on June 28, 2023 14:22:45 EDT From: MILAN NAILS DO To: [facility] Sent: 06/28/2023 14:22:45 EDT Subject: Medication Management Submitted: Complete:lisinopril (lisinopril 20 mg oral tablet) Signed by MILAN NAILS DO 06/28/2023 14:22:00 EDT Approved lisinopril (lisinopril 20 mg tablet) TAKE 1 TABLET BY MOUTH DAILY Qty: 90 tab(s) Days Supply: 90 Refills: 0 Substitutions Allowed Route To Pharmacy - [facility] From: [facility] To: MILAN NAILS DO Sent: June [...] Refills: 0 Substitutions Allowed [id number] Note Entered by MILAN NAILS DO on May 24, 2023 07:28:08 EDT From: MILAN NAILS DO To: [facility] Sent: 05/24/2023 07:28:08 EDT Subject: Medication Management Documented Complete:lisinopril (lisinopril 20 mg oral tablet) Signed by MILAN NAILS DO 05/24/2023 07:28:00 EDT Approved lisinopril (lisinopril 20 mg tablet) TAKE 1 TABLET BY MOUTH EVERY DAY Qty: 7 tab(s) Days Supply: 7 Refills: 0 Substitutions Allowed Route To Pharmacy - [facility] Patient matched by MILAN NAILS DO on 05/24/2023 07:27:02 EDT From: [facility] To: MILAN NAILS DO Sent: May [...] Refills: 0 Substitutions Allowed [id number] Evaluation note* Encounter Date Diagnosis Assessment Notes [...] is not contagious from itself or drainage. [facility] Other 05-30-2023 NoteCONSULTATION CONSULTATION DATE: 02/15/2023 TO: [...] the lower extremities. MEDICATION: Current medication includes Grant 5 mg t.i.d. p.r.n. Patient reports it [...] our patients to inform us about any tnej-fir-misctpd medications or herbal remedies/nutritional supplements/alternative remedies. 2. [...] treatment options with their primary care provider.[id number] Note CONSULTATION CONSULTATION DATE: 01/06/2023 TO: Dr. [...] our patients to inform us about any jrjp-zko-lgpipbz medications or herbal remedies/nutritional supplements/alternative remedies. 2. [...] treatment options with their primary care provider.[id number] Note CONSULTATION PROCEDURE DATE: 10/06/2022 PREOPERATIVE DIAGNOSIS: [...] will be followed up in the office.[id number] NoteCONSULTATION CONSULTATION DATE: 08/26/2022 HISTORY OF PRESENT [...] his muscle relaxer. Our clinic prescribes his Grant 5/325 b.i.d. and diclofenac 75 mg b.i.d. [...] normally does. All questions were answered today.[facility] [id number] NoteCONSULTATION CONSULTATION DATE: 07/22/2022 HISTORY OF PRESENT ILLNESS: This is a 46-year-old gentleman returning to the clinic for a three month follow up for his chronic lower back pain and lumbar radiculopathy. The patient reports pain 6-7/10; describes it as a dull ache to [...] a cane. He has seen Neurosurgery at [facility] in the past, which they feel, at this time, he is not a surgical candidate and to be managed by Pain Management. He current does see Dr. Galeas at [facility] as well. Activities that aggravate his pain are pulling, sitting, walking, lying down and bending. He will alternate heat and ice which he feels does not make a significant difference. Medications include trazodone 50 mg q.h.s., tizanidine 4 mg b.i.d., Lyrica 50 mg t.i.d., diclofenac 75 mg b.i.d. and Grant 5/325 b.i.d. He does attend pool therapy at the [facility] 2-3 times a week, which he feels [...] be followed up in the clinic thereafter.[facility] 04-22-2022 NoteCONSULTATION PROCEDURE DATE: 04/22/2022 PRE [...] will be followed up in the office.[facility] [id number] NoteCONSULTATION CONSULTATION DATE: 04/15/2022 This is a [...] mg b.i.d., Lyrica 50 mg b.i.d. and Grant 5/325 b.i.d. He is complaining of trouble [...] is gained for his trigger point injections.[facility] general Narrative - Reported* Type Description Date Medical History HTN (hypertension) Medical History GERD (gastroesophageal reflux di sease) Medical History Chronic pain Medical History Anxiety Surgical History tonsillectomy and adenoidectomy Surgical History ablasion [facility] Other History general Narrative - Reported* Type Description Date Medical History HTN (hypertension) Medical History GERD (gastroesophageal reflux di sease) Medical History Chronic pain Medical History Anxiety Surgical History tonsillectomy and adenoidectomy Surgical History ablasion Surgical History nerve block Surgical History epidural [facility] Other Summary Purpose Family History No Family [...] section and content) DATE CREATED AUTHOR 03/09/2018 [facility] DATE CREATED AUTHOR AUTHOR'S ORGANIZ ATION 01/19/2022 [facility] DATE CREATED AUTHOR AUTHOR'S ORGANIZ ATION 02/25/2023 [facility] DATE CREATED AUTHOR AUTHOR'S ORGANIZ ATION 04/21/2024 [facility] DATE CREATED AUTHOR AUTHOR'S ORGANIZ ATION 04/21/[address] [facility] REASON FOR VISIT (unrecogniz ed section [...] BE BASED ON THE PRIMARY CLINICAL RECORDS. [employer] [facility]. provides no warranty or guarantee of the accuracy or completeness of information in this document.
== END 2024-04-23 07:29 | disposition home or self-care (01) ==
LOC: MRI 07:29
PROVIDERS: PCP Family Medicine; Visit Provider Nurse Practitioner
DX: M54.12 Radiculopathy, cervical region (principal); M50.30 Other cervical disc degeneration, unspecified cervical region
CPT/HCPCS: 72141

== ENCOUNTER 2024-04-24 07:25 | Day surgery (SDC) | payer MEDICARE, SELFPAY ==
--- OUTSIDE RECORDS SUMMARY | 2024-04-24 07:28 | XMS_ITS | CCD ---
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 Name Role Phone KIRNUS, DALLAS Unavailable Unavailable KIRNUS, DALLAS Unavailable Unavailable CONWAY ., KLAI Consulting Unavailable LAKSHMIPATHY ., NARAAYUSHATH Admitting Tiffany [...] by mouth every six hours as needed [place] 5-325 MG 1 tablet as needed Orally every 6 hrs Active [id number] actuat albuterol 0.09 mg/actuat metered dose [...] 30 Days Active take 1 capsule by [facility] every twenty-four hours DULoxetine HCl 60 [...] Facility Patient Letteron 04-11-2024 Patient Letter [id number] 36#1.00[facility] Outside Recordson 04-05-2024 Outside Records [id number] 3#1.00[facility] Outside Records [id number] 9#1.00[facility] Rad - Other Radiology Report on 04-02-2024 Rad - Other Radiology Report [id number] 44#1.00[facility] Outside Recordson 03-02-2024 Outside Records [id number] #1.00[facility] Outside Recordson 12-08-2023 Outside Records [id number] 49#1.00[facility] Outside Recordson 09-28-2023 Outside Records [id number] 4402#1.00[facility] Coding Summaryon 08-25-2023 [facility] ZqbvjggsEZk4pQb+PGh lYWQ+FJ1RELCvD84iiE YhpL7cD2SCRKzBGgobY TJBSOqEAjYjvuDxJD3x aXNjZXJu IC8+WV9bEQLmLerycTR zv2O0wXF3Z72ztf9yFD wulSH1NRNkAcQbrvoju 5rvkIy9WWkpSaeuPzCb GKKhnT87UYB5rI92Qk1 7yREndBOoz9xyyYn5St TgPWUqALP5gRwlQUxjv 0BgJOKiR49xmOHdq8K5 IGNvbGxhcHNlOyBlbXB 8rF1cKRiahnmoh4ibau hqMzi1xw99gNSfu6Y4s AC5R5FraqP6IOGcqCHs KbkyrWEOtT0edlwjv9o duhnzIoUgTQSqZUo6DH d1VJZamZkkMfQaNG67L CW9MBBycuPgJ2IyKQOg fHlhXvO7o9V7Sc6PV3A RArbtE5AFOUHEIIaiyE Q+IT17hf79G3KeClmuK do3ZLUuKEH6eJX2zV0s WNZxKKfpk2H6xYA3K7M xkzSeng8nn1diNDWyDL gfK25ipDPnt1W4WVNxq OG8LEHxkXonHtWyjZ76 Oyc+NHGtuHaxb1GiKkq tn6fpy9zffCv7BvrkLN UxxfDasBegRJZ4x3KbN a5aDJExrOJ9wPW4nU7i KfZgYaT9PFcsZ056AtZ rrFArZrvbP42rG6DxbT A+EWRoIvy1BZRimVarS Z5bV2ScYADdrnnzkHJv tJjfNR8bJFLladrwMPF qfJ3vCPNlK4m9VsPgJq T8OTfrS0DmWOHljdilN e89sZ6pYuWqKmB9VEqd V3YlzdP8VNJcwOFtPQy vZPQ0W61kn8Z6CTNnTJ HsATO7dRA5hG4wfWxyq jogbGVmdDsgdmVydGlj XOvyDLarG021GVQfqWi nPkNvZGluZyBEYXRlOi AgMTIvMDcvMjAyMzwvd GQ+OTIkCCG0bYlnFQVv iZCqIVqfKv1pjCqcjRo nBI5wMAPsgbstAUBkdB 9aMGYsfZEfaKehTW1xF RBuqbvbr351WbYlUEX7 GUUyyMKfK8QfyW7lVgT gFGZoKEXiE5QaiZBsHA pwD102IWezWeA4ZSMkb cZwK0QrTSUakBmrTuB4 z6L2Kh0Ls1FogbhaM1Q prXDwTlXsObzoOYv8U8 RkPjwvdHI+QK99CBPpY Q69SFp2MRE3hFsrFMca VAWlK4GrjG6xHcUnQLT kZGRkOyc+PHRhYmxlIH dpZHRoPScxMDAlJyBzd QreSP8xZw0qZHHwLYSj rDxowAIiQwTea4jfJPO bMHwkBV7hfOqvW5CptP E1UBLdp6p5Fj69I92nW 3JvdXA+WPKprGV1uRE0 rZ1sOoUmSpQ1DQxrY44 1QtVjyULsUojsh4dto6 bpcDb9GfO0FDAodhNxk TjjRGC7a6JaKx13A86p IHdpZHRoPSIxNSUiIHZ pwJvwvm7llA8uAm9+PG JboMC8kAK7dB3mTjTiI fD7GIlmO482YyXfeHGo Htzcz2fhr9jvrSj7BaR bTYOevqBceYncGBW1v8 WrDi72Z2EbsGnvg5ApP wi8th35zFRri9U3nDH0 J0UdUKBpilgwyWByvQv tNY3pSQWpdrruDNYitQ 3mUWKlI1p3ThMnRuI6G PfvA1MhprW4XENneAVl OOWrgZOZfO9ojhgsn1k otxedKwJoRPDdAEt6LO h3GQTlnLlxTdTrJJK1A xQ4AQN6uLKkaJ0beLij licfjE1xKxa+UVR9dFM vmHDKAX4iXfcwuSM+PH TzGGQ4tXmdARilQVLpt C7xACCpZ7u4VvEkKxQ1 JJgwB5AlihZ0DKKstTB wQYNtpMEMxB8puyiew8 xwnmejBwPdOYKlKIw2M Fc2PFPyxBmdItNgEFA3 EuI6INK7nFYmbW5fhDz gvibhxO1jCtm+QmlydG sdHQD7XFg2E6ZqPdz6Y MNnfBgsQO2zlUXlYCxw Ha8llAgfxTswGS7fZHR mhqfns560KgBpv2gcFD XsrMOrCUdpOUD2B49kn 7A1EDJnYRFtTEO4qHV0 rK2meGlevyxvjAJgaHp gdmVydGljYWwtYWxpZ2 42SEIutIndMaGiBZa6A 4LuJbz7PZOpeYtvRV4w pJYnXHbpUk9fzMbzeEq gKX9sWYSndkevi075Gx Yvy6qpBKGqmYSgIKafZ PA2T75ew4F7JELcHHCn YDK8oPE6aD1hsAoriku gbGVmdDsgdmVydGljYW paMOkpJ485WQVcxWnvQ lIsuZa8D3IrRoo6BFYa zGihAP8tnIVsEFssPy9 jcXnwwBxyQA6bXXSmhp daf531IuIxy0jwLVSpt QCjVKpdTOH1D70ts8Q8 YEJcAPOrNIP2tZG4tH7 hbGlnbjogbGVmdDsgdm OcsZucNIfjYGlfY953L HRvcDsnPlBhdGllbnQg RYcbFDi7B3YmBkfqqHB +OA24FIUxPG56eSCfnH Xgv7hjsOp1AvIoQWZkO CK1rFfbAUfek3XjYPWn V93vzVRez6O1UBCvqBt duVDzWgDumIA9rU4yXB ahmllrw1ahfyygSmcbp 0eosj70hJ92Z48hQOvd ZHRoPSIzMCUiIHZhbGl hxk4ozI5qQf1+PGNvbC B3jBL6fQ7vUZGwMzM2R GtxA957HgSyeAJqJmba z9qpe4lrwXw0LnI8WCU qlyTpbYwzLLK2x6ShZz 95G31tTPanHYLiBTNbJ ZIqCWZwhSgkqn7rtD3h Ii8+MCBktMM2wKZ6wQ8 kSgVvPaF5TYioN118Wl AncHNiXnbhD52tR9Cyw XA+SIOtCkz4BUZxnEux AM0irFKcUSvgYx7mOJH 3VwPmTjXzGBvxU0CkKN UbaoxtsmsfrUF9TTZlK ILdtL66Ou8jtMakAVTt dPAKqO0pptikb6ntmnk sDfTdYJBmBWv1CAq1LO YxsGvfIjSdUKB3YzC5J WQ1tCGwlO1gqQxywheu hU3xM3FyCSOaioseQb4 2lG2jMwSnCzC3PVbkVt c+M6BPJL6QSchlV0VST HMXKCYVA6HSKZxaeXE+ PCJoQXW5pKtvZKytLQU yyZ5nDYCgL4x9KpInTu B4MTchK0LbUWNxpdcfD u11cP9iIsVnVnR3BJtf G6NqkqY5ZHQnqYHeIEu vOQT3Y29ws9N0QDKeAF BqOWJ1jNM4iL1mlDqmg jogbGVmdDsgdmVydGlj RAipCFymC238NGYlhFp sGrKdDiUaXzM2SjE3G8 FeZyu0PSWyaXhzGF2oj WWiDZhcNt8wuUrshWey WR0fPSPaijrlRQYfgG0 pVBVucEIghKwhNS6qTV Kdjayzb316SbDzNYH8I SUliMArL5LmiJ7mYuBl EEPyDADqA8YdvBDnPQp eV718DYoiFkB8FNOzre ByC5OrQGZzyMsnUvU7m 7M8Gi09CITFVHXhpruu dGQ+LWPnBHZ5gPqsPMb iVZLweF6eSTIeK3m8Fn LuZnZ9SOgkJ0IeHSJfc cfgUb66yJ1kGhSkPgU8 XXfdA7IbjxZ7LOHkkQZ fPQvgXLO9J48av5G1JG XsQUFoXKJ4lWT8kY8hc GlnbjogbGVmdDsgdmVy bDzqKOqqBDqvO801UNY lzMfdPk5FERB3T7LgWr e2TQGlyGgrPI3zuCLzB JzqGt8fbXyljXnuIJ0q JZTfctbqAAUktP1dWUU ofEDpeBikFM5fFQRpit wpo564EzKnFYH1TRLml XMeY0YubS2xYiRyJBNk NIAwE0SpeXCcSKxgN86 2UBznRlV6WLVmhhWrD2 JlMABfmLawAqG7d2W6V x7ARBttkJY+VF80hv79 V3CiQpsmNlh5VAOdLXE 2zOR6iG6aCEEsXXarj9 R6yXP4M6EqghDiag1rq 0sxKCOsOSjdN27snCBe g3B5UOIomQL1AUAviPo eCiYjrP04Lbb+PGNvbG ogx4QvKxhbj0mpr7frc Yo1KrRuWJKoydZwwHlk QYW7o1SuZr30C53dTBe pZHRoPSIzMCUiIHZhbG fmyg2qbV7iUi6+PGNvb CH4jXL6uL8qJuQoBgN4 GSfxW444PpAdkUVhRry oy4ofo0howBc3DaFxMG NzbpOmlXqlFYD4e5MoE k88S0CqbBeoc5CoWif9 ly12gMIwr3I7wCE4S9J hZGRpbmctbGVmdDogMC 8sAPBtndoySPXzaW3kO KVjY3e3PyCqWgH1PFxi B7WhswP5LXXjnOZzEIQ mvVJDqI6kxazbx4jvnw dwMcMkCDNbFBl3CKd4N LBsdShxZdYgECA4ImE8 HRT4gYNbsD4jdUkcboj uaK5zTpj+AAy0k9thvM YtUK7lwFW0WU86LS15i GFnn4D3rPQ7K2IhDVTs hwkqpmauhRL3VNOnWQE nbZ88Ne5qsNdbDj6kBF YwJVW3YFXejEOpY6Jde O4lSyEdSPJcTQMmF2Jm dXBhCEdpU916KNdqFvV 1IAPinsPqS9KqDNPghJ jjDbO2u4F2Kj4STZ42U W45DO89vOJfv2T5fUF3 Z6KlLNRpchmpbutxcPV 5ABObMKUaxS67Bw0xoP mfQo7uTKTlOYP0XYPyt GZnZ1AypE6iGeVwJWAh ZVXiD7EqfTBtTPtoO29 7LWrmFqK7GUZppaNpQ8 DhZMBtlXaeWnU0z5E2Z c2UEz27LU75WL63yGGg g8I2vCC9P0XiIPVeseq bvjtpxUC6RXOmRCOerQ 66Eb3rzIhfDz6bRMIuN GZ8BXFumVKfT8GqeB2k UyUmXWTcNSEiM6CqfQY lSVcvX257GUztYdI9TU IelfIvW5SlGNVfeDejT kL2x3L9Xc6HQRnicty1 E5OaWovntXY+FM19LXI xQF99pTRwiUDdp1yrcT s8UqPsJBPyCHS1nJjiC Tjcm7KnLNIrY97vvTSj c2U (more content not included)... Normal [facility] .Auto Diff 08-24-2023 Auto [place] % 6 % Normal 09-30 [facility] Comment on above: Performed By: #### 7 383869, 15740428, 2255386099, 1374557, 88749688, [id number] ####[facility] (DEFAULT)[address] [place] [address] 67423 Baso Abs# 0.1 x10 Normal 0.0-0.2 [facility] Comment on above: Performed By: #### 7 738138, 33373678, 9127351429, 0643878, 30490580, [id number] ####[facility] (DEFAULT)[address] [place] [address] 51761 Basophils/100 WBC (Bld) 1.0 % Normal 0.2-2.0 [facility] Comment on above: Performed By: #### 7 601081, 01735310, 5132015204, 6207050, 72999464, [id number] ####[facility] (DEFAULT)[address] [place] [address] Eos Abs# 0.1 x10 Normal 0.0-0.4 [facility] Comment on above: Performed By: #### 7 419193, 59512521, 1866796561, 2372012, 66614370, [id number] ####[facility] (DEFAULT)[address] [place] [address] 36658 Eosinophils/100 WBC (Bld) 1.1 % Normal 0.9-4.0 [facility] Comment on above: Performed By: #### 7 388836, 77115947, 5569976039, 5870686, 15490146, [id number] ####[facility] (DEFAULT)[address] [place] [address] 42179 Lymph Abs# 2.1 x10 Normal 1.3-2.9 [facility] Comment on above: Performed By: #### 7 314320, 55484625, 4574416317, 7299294, 20963361, 8822254821 ####[facility] (DEFAULT)[address] [place] [address] 08955 Lymphocytes/100 WBC (Bld) 26 % Normal 14-48 [facility] Comment on above: Performed By: #### 7 146781, 44712936, 2852237650, 4189930, 17631145, [id number] ####[facility] (DEFAULT)[address] [place] [address] 33424 [place] Abs# 0.5 x10 Normal 0.0-0.8 [facility] Comment on above: Performed By: #### 7 935467, 76631479, 2184744209, 9388431, 64445642, 9718736161 ####[facility] (DEFAULT)[address] [place] [address] Neut Abs# 5.2 x10 Normal 1.5-9.2 [facility] Comment on above: Performed By: #### 7 162884, 54682276, 1489124981, 4153476, 97129819, 9921760416 ####[facility] (DEFAULT)[address] [place] [address] Neutrophils/100 WBC (Bld) 65 % Normal 44-88 [facility] Comment on above: Performed By: #### 7 240646, 77348601, 6092148923, 3465498, 01406387, 8668352952 ####[facility] (DEFAULT)[address] [place] [address] CBC w/ Auto Diffon 3 Erythrocyte distribution width (RBC) [Ratio] 13.7 % Normal 11.5-15.0 [facility] Comment on above: Performed By: #### 7 355652, 34897040, 9496515096, 7456076, 78745167, 5329832597 ####[facility] (DEFAULT)[address] [place] [address] Hematocrit (Bld) [Volume fraction] 45.6 % Normal 34.8-51.9 [facility] Comment on above: Performed By: #### 7 140883, 46761212, 0672156146, 9323727, 00913800, 6675505618 ####[facility] (DEFAULT)[address] [place] [address] Hemoglobin (Bld) [Mass/Vol] 15.2 g/dL Normal 11.8-17.7 [facility] Comment on above: Performed By: #### 7 123874, 47630010, 1604282960, 6674446, 22462032, 9100341922 ####[facility] (DEFAULT)[address] [place] [address] Man Diff? Auto Invalid Interpretation Code [facility] Comment on above: Performed By: #### 7 419851, 72306606, 0999421649, 8979877, 06305987, 8740187552 ####[facility] (DEFAULT)[address] [place] [address] 43558 MCH (RBC) [Entitic mass] 29 pg Normal 24-34 [facility] Comment on above: Performed By: #### 7 235323, 07917278, 6076328553, 8848504, 76860536, 0893136544 ####[facility] (DEFAULT)[address] [place] [address] MCHC (RBC) [Mass/Vol] 33 g/dL Normal 26-37 [facility] Comment on above: Performed By: #### 7 277022, 65262147, 4431177483, 7861759, 08311171, 2362340974 ####[facility] (DEFAULT)[address] [place] [address] MCV (RBC) [Entitic vol] 88 fL Normal 81-100 [facility] Comment on above: Performed By: #### 7 473193, 83917744, 7420881780, 6533039, 71889122, 0240737073 ####[facility] (DEFAULT)[address] [place] [address] Platelet 391 x10 Normal 138-427 [facility] Comment on above: Performed By: #### 7 712885, 22497043, 1180660463, 5566405, 23042520, 5597493611 ####[facility] (DEFAULT)[address] [place] [address] Platelet mean volume (Bld) [Entitic vol] 8.5 fL Normal 6.3-10.2 [facility] Comment on above: Performed By: #### 7 982067, 77215622, 6589459268, 7604931, 06018381, 2974508726 ####[facility] (DEFAULT)[address] [place] [address] RBC 5.19 x10 Normal 3.70-5.30 [facility] Comment on above: Performed By: #### 7 049540, 59000069, 4948445177, 4768590, 25737914, 1743217174 ####[facility] (DEFAULT)[address] [place] [address] WBC 8.0 x10 Normal 3.5-10.5 [facility] Comment on above: Performed By: #### 7 965648, 72968400, 8217378951, 1733963, 92132547, 6566858363 ####[facility] (DEFAULT)[address] [place] [address] CMP Standardon 08-24-2023 eGFR Non AA >60 Invalid Interpretation Code [facility] Comment on above: Performed By: #### 7 284393, 07585119, 9288667466, 4609389, 66304611, 2224691065 ####[facility] (DEFAULT)[address] [place] [address] eGFR AA >60 Invalid Interpretation Code [facility] Comment on above: Performed By: #### 7 414775, 28716104, 4095716735, 9106207, 96660030, 8032366912 ####[facility] (DEFAULT)[address] [place] [address] Albumin [Mass/Vol] 4.4 g/dL Normal 3.5-5.0 [facility] Comment on above: Performed By: #### 7 761058, 43275202, 8757124992, 6651863, 78145751, 1673303939 ####[facility] (DEFAULT)[address] [place] [address] Alk Phos 60 IU/L Normal 32-91 [facility] Comment on above: Performed By: #### 7 444112, 20653804, 4815394385, 3222364, 75280789, 2019422692 ####[facility] (DEFAULT)[address] [place] [address] ALT [Catalytic activity/Vol] 52.0 U/L Normal 17.0-63.0 [facility] Comment on above: Performed By: #### 7 203041, 49060931, 3968470369, 0172595, 55821829, 8337315912 ####[facility] (DEFAULT)[address] [place] [address] 57753 AST [Catalytic activity/Vol] 32 U/L Normal 15-41 [facility] Comment on above: Performed By: #### 7 783976, 18914655, 1607971954, 3581009, 28479351, 2841944748 ####[facility] (DEFAULT)[address] [place] [address] 27649 Bili Total 0.9 mg/dL Normal 0.3-1.2 [facility] Comment on above: Performed By: #### 7 073875, 57896987, 8997266867, 4751652, 60596577, 7341011384 ####[facility] (DEFAULT)[address] [place] [address] 21146 Calcium [Mass/Vol] 9.4 mg/dL Normal 8.9-10.3 [facility] Comment on above: Performed By: #### 7 352333, 83104792, 0776436162, 9291863, 99097396, 3197668031 ####[facility] (DEFAULT)[address] [place] [address] 33624 Chloride [Moles/Vol] 109 mmol/L Normal 101-111 [facility] Comment on above: Performed By: #### 7 915097, 11722835, 8243697378, 6065563, 28569677, 5718063927 ####[facility] (DEFAULT)[address] [place] [address] 24381 CO2 [Moles/Vol] 25 mmol/L Normal 21-32 [facility] Comment on above: Performed By: #### 7 576273, 66840546, 5229514200, 8822022, 52596139, 8468331810 ####[facility] (DEFAULT)[address] [place] [address] 33649 Creatinine [Mass/Vol] 0.74 mg/dL Low 0.90-1.30 [facility] Comment on above: Performed By: #### 7 561146, 38018075, 6328420555, 8960129, 34794920, 3529581452 ####[facility] (DEFAULT)[address] [place] [address] 71577 Glucose [Mass/Vol] 105.0 mg/dL Normal 74.0-118.0 [facility] Comment on above: Performed By: #### 7 766375, 70670960, 7149446136, 0317286, 03585152, 5935676493 ####[facility] (DEFAULT)[address] [place] [address] 76920 Potassium [Moles/Vol] 4.0 mmol/L Normal 3.6-5.1 [facility] Comment on above: Performed By: #### 7 385970, 83867663, 7806610495, 9300655, 88985679, 8241729984 ####[facility] (DEFAULT)[address] [place] [address] 06586 Protein [Mass/Vol] 7.5 g/dL Normal 6.5-8.1 [facility] Comment on above: Performed By: #### 7 799866, 25899112, 8644570486, 2197841, 94270719, 4806947835 ####[facility] (DEFAULT)[address] [place] [address] 01567 Sodium [Moles/Vol] 140.0 mmol/L Normal 136.0-144.0 [facility] Comment on above: Performed By: #### 7 384160, 00568994, 2802986291, 0600765, 13295354, 4185274811 ####[facility] (DEFAULT)[address] [place] [address] 12871 Urea nitrogen [Mass/Vol] 10 mg/dL Normal 8-26 [facility] Comment on above: Performed By: #### 7 454829, 74649246, 7051016817, 2596816, 13871645, 3336855373 ####[facility] (DEFAULT)[address] [place] [address] 97818 Albumin/Globulin [Mass ratio] 1.4 {ratio} Normal 1.4-2.6 [facility] Comment on above: Performed By: #### 7 702296, 29029703, 4802167030, 5468626, 15491167, 5441438843 ####[facility] (DEFAULT)[address] [place] [address] Anion gap [Moles/Vol] 10.0 mmol/L Normal 5.0-19.0 [facility] Comment on above: Performed By: #### 7 376541, 46391470, 6116793208, 9131188, 10608103, 4967910412 ####[facility] (DEFAULT)[address] [place] [address] Globulin (S) [Mass/Vol] 3.1 g/dL Normal 1.5-4.3 [facility] Comment on above: Performed By: #### 7 823149, 15419099, 4725762283, 4051811, 48457578, 5442349651 ####[facility] (DEFAULT)[address] [place] [address] Osmolality 279 mOsm/L Invalid Interpretation Code [facility] Comment on above: Performed By: #### 7 140381, 31643195, 9833361930, 4107810, 93287541, [id number] ####[facility] (DEFAULT)[address] [place] [address] Urea nitrogen/Creatinin e [Mass ratio] 13.5 mg/mg Normal 4.6-16.2 [facility] Comment on above: Performed By: #### 7 243349, 67326666, 7586961234, 2741148, 17735246, 4170290547 ####[facility] (DEFAULT)[address] [place] [address] HgbA1c Standardon 08-24-2023 .Hb 16.6 Invalid Interpretation Code [facility] Comment on above: Performed By: #### 7 350983, 93478387, 9986289369, 3259856, 68951583, 3030922176 ####[facility] (DEFAULT)[address] [place] [address] .Hgb A1c 0.59 g/dL Invalid Interpretation Code [facility] Comment on above: Performed By: #### 7 252219, 76539765, 3161874124, 5002094, 25511503, [id number] ####[facility] (DEFAULT)[address] [place] [address] Glucose [Mass/Vol] 108 mg/dL Invalid Interpretation Code [facility] Comment on above: Performed By: #### 7 [id number], [id number], [id number] ####[facility] (DEFAULT)[address] [place] [address] HbA1c (Bld) [Mass fraction] 5.4 % Normal 4.6-6.2 [facility] Comment on above: Performed By: #### 7 [id number], [id number], [id number], [id number], [id number] ####[facility] (DEFAULT)[address] [place] [id number] Reminder Messageson 08-24-20 Reminder Messages -- From: MILAN NAILS DO To: [facility] Clinical Pool ([facility]); Sent: 08/24/2023 12:33:59 EST ! Show up: 08/24/2023 12:33:59 EST Subject: Results Follow Up Actions: Call the patient with result(s) Due Date/Time: 08/25/2023 12:33:00 EST Reminder Comments: looks good Results: Date Result Name Value Ref Range 08/24/2023 10:17 Estimated Avg Glucose 108 mg/dL 08/24/2023 10:17 Hgb A1c % 5.4 % (4.6 - 6.2) Patient called and notified of results. Verbalized understanding. Normal [facility] Reminder Messages -- From: MILAN NAILS DO To: [facility] Clinical Pool ([facility]); Sent: 08/24/2023 12:24:35 EST ! Show up: [...] % (14 - 48) 08/24/2023 10:17 Auto Kingfisher % 6 % (1 - 12) 08/24/2023 10:17 Auto Eos % 1.1 % (0.9 - 4.0) 08/24/2023 10:17 Auto Baso % 1.0 % (0.2 - 2.0) 08/24/2023 10:17 Neut Abs# 5.2 x103/mcL (1.5 - 9.2) 08/24/2023 10:17 Lymph Abs# 2.1 x103/mcL (1.3 - 2.9) 08/24/2023 10:17 Kingfisher Abs# 0.5 x103/mcL (0.0 - 0.8) 08/24/2023 10:17 Eos Abs# 0.1 x103/mcL (0.0 - 0.4) 08/24/2023 10:17 Baso Abs# 0.1 x103/mcL (0.0 - 0.2) Patient called and notified of results. Verbalized understanding. Normal [facility] T4, Totalon 08-24-2023 T4 [Mass/Vol] 9.52 ug/dL Normal 6.09-12.23 [facility] Comment on above: Performed By: #### 7 [id number], [id number], [id number] ####[facility] (DEFAULT)[address] [place] [address] TSHon 08-24-2023 TSH Qn 1.11 m[IU]/L Normal 0.45-5.33 [facility] Comment on above: Performed By: #### 7 [id number], [id number], [id number], [id number], [id number] ####[facility] (DEFAULT)[address] [place] [address] Coding Summaryon 08-02-2023 Coding Summary HTMLBase 64 UrpymkqiVLu4vBo+PGh lYWQ+MC8ZUPQpK40dpU UqeV9mO3IPQXzMSslcY SMFQZtOWhFxnqFoKZ0c aXNjZXJu IC8+SI0bQNPhZmygrEW ty9R9zWD9B35uop5wDT umzFE2NPUnKbDdrzzkv 0lvsIo2LGwoSelwWdPx GYWjqT52WZK0xW39Ds3 7lSHomWJkn7quyBf0Yx GxGBBsJVL7wDhuBBncn 9UjTYOeP27mfMYqf5A1 IGNvbGxhcHNlOyBlbXB 4rK2jYUpnjiodi5ksnt soAem8gg79rCHqd9A7p IW0E9OoimH3URItxSDz CpkmwNBVyB6kupeei1d zzysvSeMmJRIeYLp0IA j1SIDdlQnoKrNvLA22I FM0XKKadgRnR9ObFENp gTjlVlG1h1P2Hh4GV8A JSzgaG8WSGDYHXMtrwL Q+UM62yz19H1KzRikfX oh7LATiZAG0xKY6xT8e VXBgRFxyi1B7eKV3W6V uziUzls6nd6irNQZzIE hqR24ixSMgl5B5IIQcz OB3FRJwfPxhFwYhoE94 Oyc+JZOnzMnks1LyQmz zk9zyx3eajRd2OyruYD ScjkLkwMxlLJQ4u7CmP a2lTIYuyMY9gYN2dY5a MaTyFdV1POtmJ162LxY vaHDsVgdrW78rQ3XixA A+FZQbJcg0REQyqFvuF C6jJ0YrWJTufjfhyLEm iCrdWK2nYFEhelazAMF ogH6tKJKqD5u0KcCpOk J2HPpgV1LmJQOjaqeeT r62pU5pTmOfDzQ3HFdt C7UrzvZ4MFIsnLLfHGp mNRX2W64ho7F4EYHkRY FtRDU9eHT0wX8kpRfid jogbGVmdDsgdmVydGlj KLcgEPskS527OSSssHf nPkNvZGluZyBEYXRlOi AgMTEvMTQvMjAyMzwvd GQ+SUKzSNT8kJuyQECz vDZyUXfgSf8ghRkdjAu kUM4dNVKpjpllARCedZ 6vLRZnnPEveWpuCB1xG SNagcuhg859HxLkZQN6 AOLhjPDhA9MflF0fDeY yZUNaJGOaB6TmhTOfBF qtT325LGrcNpG2TPTnc wQsR1MqXJQjzTrrMtM9 v3C4Wt4Kp5HseodeY0C faLItEjGePqmnRFz7Z7 RkPjwvdHI+YB35SQOaE H74SXn2AKQ6dJqaLGfq HPYyH0UpwA9yInAtEDA kZGRkOyc+PHRhYmxlIH dpZHRoPScxMDAlJyBzd BvqDR8sYq1jUCZwBUDu gGuxfXYuTmQab0lcMSU eBLytFO4tdNssL8YkwA K5JZTdx0w5Ya49Q13lM 3JvdXA+JHXzfHI0gBM4 yS0gFsAePhZ6MKaiI74 1QnUgjMEdGdddo5atr1 odgJe2YfM3SQKqxrWqg JnkWDD4u0GfIi75V21d IHdpZHRoPSIxNSUiIHZ nrCxvkr1ltJ8lJj3+PG TaiRZ0aGH4fJ4yJuBsI nL2PZngM045UbYygIIv Lqogj0djj2eynPu5ZmE pRUEydiNnyNhpXBY8f1 LuIv00S5MgcKqwk1TtQ pi7mg31nKKtg4V1aGG1 H8JuRCBzguvuwUOreTh fNV9rTSFdfrloJYIygX 9aQROvA6n7MnDqDoY1C SqlJ4AxkeQ1QEAgaHFy QSPrjTYFmY1caxeer5h nsojlBbHdKIPtQDr6LQ t7ZDFoiBpqVyUgUWF8Q vO5DKB5oVQuaE5fqMaz ixvhdH5tVzj+EWI7vDG ebAUSVS1fKgvjcIX+PH QiYLC1jWlyRBedYHHbq K5gRTBcM1c5FoTlBoE9 NTpbO6HiwsH3KLUjbWI zMLExaNCOcS9pahuby7 njryczHvTxMBWjBUu9L Xq7ATUmxXiaRvIvVAT5 ExB7MQL6cOHooS5vkYi attvgqV6nPze+QmlydG ekFUE1WOy6V1AmRzs5M YMoeZfaVS9qrBPmCVwf Dz6gfDnhpKuuDZ4bDAM lbgfve381IgKek8xmEP ZczUQcIJgtJBV0W67lf 6H7ONUuGESuBHX4jCE2 aF2txUgxvhhdoRGrcEb gdmVydGljYWwtYWxpZ2 36KCIqrZcbBuPsLXx7O 3SpNhs0WHUkrZauTT1y mFJpYUsnXt9bsMjxyMp oLW4nLXQzgdcqd440Bw Fxa8cbGCJctWDuAEmvN JE1N71dr0F2CZIlBDSe JZQ2gKG1pC0emWaawxm gbGVmdDsgdmVydGljYW wyYDorS725LRDgkMbrX tKtjZc3A7GlXfp8MLCm pQegBV9aqXVcVBdeOo1 izMehlXjbSY4iZOEwpx qca168RfFqi3ebZHGmt ZVtYDxaTNV0N62bx9M3 OVSjPFZtLEU9kNC6xE1 hbGlnbjogbGVmdDsgdm KpbNkaPDolJUmrQ032Z HRvcDsnPlBhdGllbnQg TMnpZWj4I5AsXdjadUV +UC80NFPwOT17pPWbfB Hog3usnDq8ZpWvRUYgQ OQ5fQtbUIvlh9LqUCTx F87voROxj0K2IDAxnEt cmTUgUmLnsZT8cA9pLD oysusxr5gnjfosSictk 0pynl13vP41K28yAHfz ZHRoPSIzMCUiIHZhbGl lph7lnT1xFo5+PGNvbC U0qLG3yN9zZTBcVdD4R CeqD491EfZxkLXqYnvs k2lbn2sdgQp9ZnR4QXK nafJxkBciAAI1z7UnXm 64E54lYFpoZZRgHDFlW YGzHVNxvSlvvc3kzN4d Ii8+VAClqSO6lZM7tY6 eNtUyVpS1HNodG019Vg XwkVIxUosqO96yT9Fyz XA+ZUXoEhb1HBAdbNdy LE8ldTKwLZrkKq4hFOR 2VaFoSxBnHXnsC6RzSU JaupqldubihOB9GCOwH XWzuY13Lx5gkGgvOKFh kHVCuO0wdnkzp5nyhkx eZeNiHVWoDKa4CYp9KO CwsFzjXxTxGJD6PtT2U WW9dBFvbG1zjVqmxbtu kN0zF0BhTUPshurdYx0 4qV5aYxAdRlQ4HFvpSt c+B8GZCI8PNwaqO5RKS DZNJRRTS5LMAVgrqIU+ HPNtUIG4dQguHAobYAG diD6dCRQqP0j7KgEhWe C0OUytM3AyMJMyrgabM x79eC1uOiFwOoE6PDdh P5TndlY3PDAivGJwLIh iHOC1P33yk7A6KMMbRI ChQVK8gHC5iW2ujZjhb jogbGVmdDsgdmVydGlj PSjyTQxxX358IYRxfCi zMhHlYbEeJjT0FeF1L6 GzEpo9XRHxxZahAI5mw BAuWUjqPz1foRchfSzd VF4uIKDdplfaHPFzkO4 qWCHcdNYdzYyoQJ9mAM Lxybfnv662ArDkWTX4P VLyrFSuR5MdwE4qHsJz OGIvXDTqD4VwtWJfIZa cU812HQahQgX2MFKrln YuM0GvPHGsiEkxDkL6i 8D7Fx79QZWBVSWimyan dGQ+OMUdMYU9bPeqLNf cHDIvtN8vDTXaT7w9Ur PkJmJ9NAlcU1MqGLQjz ibpSz53aS8cHeLwMnG9 TNdyV8BmydO4FKBdiLD dTJusMKE6L22az7B0DL SpDPEgKCA6fSQ4pS3nd GlnbjogbGVmdDsgdmVy zCvxROrfOBriC738DAF geDloCu6QYME4Z8KyCu h1YHXfxWzzQY2ahQGwZ XntVv1qrEbohErePN8w IIHjvuarOGBqaK0oRMZ qwXDdbNdoLR9xTJBbft arr964GjTqIGP3XEFqi XMoH9JuuQ8rEvYxHJWc IACqV4IoxSRxULxzU99 8TIgdEaW1XLFbweUhX5 YqNXIzsWqqBtT6c9F9F j4JQUoxtAB+XK17cx71 M5JnBrbcPsj3YPVeNQN 3kUM8vT0vNCPtBAgkt3 C0rPE6Z1AadkRnkq3xw 7fkCYUkBTnlW40olRJn v4A4EUOrzDV1ZCLixJk pErXxjY04Lgf+PGNvbG rtx1VzIrqjs1fcn4udd Zo6PdNiCCZwtfEmjWrg JEN5f0DpCa08C83qKRm pZHRoPSIzMCUiIHZhbG dwbd2piJ9vZd2+PGNvb BW2uQI4bT5fUfTqPsL4 KLptI938ZmZvpVGqNhr ln7crx7rkvQp0LtElTH PqgxKjdLioAZQ8x6VrR k43Y0FthXkko6MsVlx6 bp45sFErq9F1mAJ6Z5P hZGRpbmctbGVmdDogMC 8tHTRvtepiBKNtkS9eS VEmP5a0CoElNrU9JZql Z3DkabC9HFDicLWpTRH qwKQZeZ2zsfdsr2fvvi kxXhNlGPIhEMs2HZu3O FXedDzhTeEoPOP0LbR9 WMZ4rZMvfH6nmJyhgxi ihT3sTch+EIt9r7vbsX DkQB6jrQX8IA75GZ97w ECum4J2mIU8I6LwXYTi divtlalqmUE9XNHrOSD bsT57Ol0xnPaaXv9vOO MrZPK9SJFnsHSoE2Uoy R0pLuOnOHLxHHNrO6As hGVnXVslR482IPfgHcQ 7JPKbocHhA5FyIZRseW ybTwR9h0C9Yi1KDK23Q E30SC33iGSfs1B1hDN0 B9ShKNKwwsqtadpvoST 5IGNdLVZijT35Iw1uqQ njSv2tSALmYTS7KCQpd SJqL9SpzH9iAcGiDJKu NQBiA2QspJOoJIxsT97 8SUdbIlE3ILCmbcEvV5 BoDGFleBfrZeK2k7F9L m8USg63QY64TM38vTIc w1G7kAB6X2GjXVUkwjs wdsbccNE5YYQoMBDljX 01Dv3mwKpqWa8hGWWyN VX4RRSgjUMzU5JukJ5s KtInRWByUWDwX5JzyMQ jYPxkD482JHteJlH3QQ KvbaLkO1NbSXLowHzgD vG4b8V4Yx6XCGtflej5 B2NdJpnjaKV+BM45XNV wJO29tGLlnSMyd3ziaG m4BsIlNCLxBDU6vYrgV Qchn9MyJQPqQ85vfUTb c2U (more content not included)... Normal [facility] ED Clinical Summaryon 2022 ED Clinical Summary [facility] ? Urgent Care [address] [place] [id number] Clinical Summary PERSON INFORMATION Name: DION ANDRES Age: 47 Years Sex: MALE : 1975 MRN: Acct#: Visit Reason: UC - Laceration; LACERATION ON LEFT HAND Arrival: 07/26/2023 15:38:23 Discharge: 07/26/2023 17:27:00 LOS: 000 01:49 Check In: 07/26/2023 15:38:23 Checkout: 07/26/2023 17:27:00 Address: [address] [facility] [address] PCP: MILAN NAILS DO PROVIDER INFORMATION Provider [...] With: Address: When: MILAN NAILS DO [address] [place] [address] Within 3 to 5 days Comments: Diagnosis [...] wound to hand Patient Understands: Yes - 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 Urgent Care [address] [place] [address] PATIENT DISCHARGE INSTRUCTIONS Patient Information Name: DION ANDRES Age: 47 Years Date of : 1975 [facility]: [id number] Reason For Visit: UC - Laceration; LACERATION ON LEFT HAND Arrival Time: 07/26/2023 15:38:23 Primary Care Physician: MILAN NAILS DO Attending Physician: Rashad Bowman Comment: Patient Education With: Address: When: MILAN NAILS DO [address] [place] [address] Within 3 to 5 days Comments: Diagnosis [...] and water are not available, use hand assistant professor surgical technology. ? Change your dressing at least once [...] at home: Medicines ? Take or apply yhyj-gho-yqogfix and prescription medicines only as told by [...] is impor (more content not included)... Normal [facility] 023 Urgent Care Record [facility] ? Urgent Care [address], [place] [id number] PATIENT DISCHARGE INSTRUCTIONS Patient Information Name: DION ANDRES Age: 47 Years Date of : 1975 Reason For Visit: UC - Laceration; LACERATION ON LEFT HAND Arrival Time: 07/26/2023 15:38:23 Primary Care Physician: MILAN NAILS DO Attending Physician: Rashad Bowman Comment: Visit Diagnosis: Diagnoses This Visit Puncture wound to hand (S61.439A) UC - Laceration ([id number]) If you received any narcotics, sedation, or [...] With: Address: When: MILAN NAILS DO [address] [place] [id number] Within 3 to 5 days Comments: Diagnosis [...] you received today in the [facility] were for an urgent problem and are not intended as complete care. It is important for you to follow up with a doctor, nurse practitioner, or physician?s assistant portfolio manager for ongoing care. If your symptoms become [...] so we can reach you if necessary. [facility] has provided you with a complete list of medications post discharge. Please inform your arrt technologist/provider of your visit and for further instruction on these medications. Any specific questions regarding your chronic medications and dosages should be discussed with your primary care physician(s) and/or pharmacist. New Medications [facility], [address] [place], [place] [id number], [phone] amoxicillin-clavula ld (amoxicillin-clavul anate 875 mg-125 mg [...] delayed release capsul (more content not included)... [facility] XR Hand Complete Lefton 11-0 XR [...] DO 07/26/23 4:50 pm Technologist: Joseph STEPHENS [facility] Outside Recordson 06-07-2023 Outside Records [id number] 825#1.00OTGTIFF [facility] Patient Handouton 05-12-2023 Patient Handout [id number] [facility] [id number] 25#1.00[facility] LUMBAR SPINE 6 OR MORE VWSon 01-14-2022 LUMBAR SPINE 6 OR MORE VWS [facility] Department of Radiology [address] [place] [address] Patient Name: DION ANDRES : [...] , Ordering Provider - A JER LOPEZ SHIRT TURNER , Exam: LUMBAR SPINE 6 OR MORE [...] radiographically. Electronically signed: Rashad Adler. Transcribed by: [email or web address], User Resident: Electronically Signed by: RASHAD ADLER @ 01/15/2022 11:40 AM Normal [facility] Comment on above: Order Comment: , ap, lat, flex, ex, obliques, r/o instability or pars defect , Views (X-RAY, LUMBAR SPINE): AP, Lateral, L5-S1 Spot, Obliques, Flexion, Extension , ap, lat, flex, ex, obliques, r/o instability or pars defect , Views (X-RAY, LUMBAR SPINE): AP, Lateral, L5-S1 Spot, Obliques, Flexion, Extension , , , Ordering Provider - Sherice LOPEZ SHIRT TURNER , Vital Signs Date Time Vital Sign Value Performing Clinician Facility 09-23-2023 10:05-0500 Body height Abbey Robin Other [facility] Other 09-23-2023 10:05-0500 Body mass index (BMI) [Ratio] 44.21 kg/m2 Abbey Robin Other [facility] Other 09-23-2023 10:05-0500 Body temperature 98.6 [degF] Abbey Robin Other [facility] Other 09-23-2023 10:05-0500 Body weight 135.81 kg Abbey Robin Other [facility] Other 09-23-2023 10:05-0500 Diastolic blood pressure 82 mm[Hg] Abbey Robin Other [facility] Other 09-23-2023 10:05-0500 Respiratory rate 18 /min Abbey Robin Other [facility] Other 09-23-2023 10:05-0500 SaO2% (BldA) [Mass fraction] 95 % Abbey Robin Other [facility] Other 09-23-2023 10:05-0500 Systolic blood pressure 152 mm[Hg] Abbey Robin Other [facility] Other 04-15-2023 10:30-0400 Body height Marisol Zelaya Other [facility] Other 04-15-2023 10:30-0400 Body mass index (BMI) [Ratio] 45.33 kg/m2 Marisol Zelaya Other [facility] Other 04-15-2023 10:30-0400 Body temperature 97.6 [degF] Marisol Zelaya Other [facility] Other 04-15-2023 10:30-0400 Body weight 139.26 kg Marisol Zelaya Other [facility] Other 04-15-2023 10:30-0400 Diastolic blood pressure 80 mm[Hg] Marisol Zelaya Other [facility] Other 04-15-2023 10:30-0400 Respiratory rate 18 /min Marisol Nathalie Other [facility] Other 04-15-2023 10:30-0400 SaO2% (BldA) [Mass fraction] 98 % Marisol Nathalie Other [facility] Other 04-15-2023 10:30-0400 Systolic blood pressure 125 mm[Hg] Marisol Zelaya Other [facility] Other Encounters Encounter Date Encounter Type Care Provider Facility Start: 04-18-2024 End: 04-18-2024 ambulatory MILAN P HOUSE Facility:[facility] Start: 04-18-2024 End: 04-18-2024 ambulatory COMFORT LOWE Not Available Start: 04-09-2024 End: 04-09-2024 ambulatory MILAN P HOUSE Facility:[facility] Start: 02-22-2024 End: 02-22-2024 ambulatory MILAN P HOUSE Facility:[facility] Start: 01-23-2024 End: 01-23-2024 ambulatory MILAN P HOUSE Facility:[facility] Start: 01-16-2024 End: 01-16-2024 ambulatory MILAN P HOUSE Facility: [facility] Start: 01-10-2024 End: 01-10-2024 ambulatory MILAN P HOUSE Facility:[facility] Start: 11-24-2023 End: 11-24-2023 ambulatory MILAN P HOUSE Facility:[facility] Start: 09-23-2023 End: 09-23-2023 ambulatory Abbey Robin Other [facility] Other Start: 09-23-2023 Office outpatient visit 15 minutes Abbey Robin [facility] Start: 08-24-2023 End: 08-24-2023 ambulatory MILAN P HOUSE Facility:[facility] Start: 08-24-2023 End: 08-24-2023 ambulatory MILAN P HOUSE Facility:[facility] Cli [facility]by Start: 08-15-2023 End: 08-15-2023 ambulatory MILAN P HOUSE Facility:[facility] Start: 07-26-2023 End: 07-26-2023 ambulatory MILAN P HOUSE Facility:[facility] Start: 05-24-2023 End: 05-24-2023 ambulatory MILAN P HOUSE [email or web address]by Start: 05-10-2023 End: 05-10-2023 ambulatory Kiel Polk MD Facility:[facility] abby Start: 04-15-2023 End: 04-15-2023 ambulatory Marisol Zelaya Other [facility] Other Start: 04-15-2023 Office outpatient ne w [...] :1532 Payers Date Payer Category Payer Medicare [id number] 2.1 [id number] 1975 Unknown [id number] 2.16.84 0.1.786463.3.579.2.593 1975 Unknown [id number] 2.16.84 0.1.140146.3.579.2.593 1975 Unknown [id number] 2.16.84 0.1.952300.3.579.2.593 1975 Unknown [id number] 2.16.84 0.1.025812.3.579.2.593 1975 Unknown [id number] 2.16.84 0.1.543038.3.579.2.593 1974 Unknown [id number] 2.16.84 0.1.455715.3.579.2.593 1975 Unknown [id number] 2.16.84 0.1.452579.3.579.2.593 1975 Unknown [id number] 2.16.84 0.1.684729.3.579.2.593 1974 Unknown [id number] 2.16.84 0.1.406317.3.579.2.593 1975 Unknown [id number] 2.16.84 0.1.375271.3.579.2.593 1974 Unknown [id number] 2.16.84 0.1.071359.3.579.2.593 1974 Unknown [id number] 2.16.84 0.1.501914.3.579.2.593 1974 Unknown [id number] 2.16.84 0.1.483756.3.579.2.593 1974 Unknown [id number] 2.16.84 0.1.316154.3.579.2.1259 1975 Unknown [id number] 2.16.8 40.1.998195.3.579.2. 1975 Unknown [id number] 2.16.8 40.1.302057.3.579.2. 1975 Unknown [id number] 2.16.8 40.1.302266.3.579.2. 1974 Unknown [id number] 2.16.8 40.1.033548.3.579.2. 1975 Unknown [id number] 2.16.8 40.1.116020.3.579.2. 1975 Unknown [id number] 2.16.8 40.1.006414.3.579.2. 1975 Unknown [id number] 2.16.8 40.1.198797.3.579.2. 1975 Unknown [id number] 2.16.8 40.1.849775.3.579.2. 1975 Unknown [id number] 2.16.8 40.1.634646.3.579.2.718 1960 Medicare [id number] Unknown [id number] Social History Date Type Detail Facility Unknown if ever smoked [facility] Other Sex Assigned At Sex Assigned At Bir th [facility] Other Clinical Notes 04-15-2022 to 02-22-2024 Note Date & Type Note Facility 02-22-2024 Note Entered by DYLAN NAILS DO on February 22, 2024 11:51:43 EDT From: MILAN NAILS DO To: [facility] Sent: 02/22/2024 11:51:43 EDT Subject: Medication [...] 25 Refills: 5 Substitutions Allowed Route To [facility] Approved SUMAtriptan (sumatriptan 100 mg tablet) TAKE 1 TABLET BY MOUTH DAILY Qty: 12 EA Days Supply: 12 Refills: 2 Substitutions Allowed [facility] Approved with modifications: propranolol (propranolol ER 80 mg capsule,24 hr,extended release) TAKE 1 CAPSULE BY MOUTH DAILY Qty: 30 cap(s) Days Supply: 30 Refills: 5 Substitutions Allowed [facility] Patient matched by MILAN NAILS DO on 02/22/2024 11:50:58 EDT From: [facility] To: MILAN NAILS DO Sent: February [...] Refills: 2 Substitutions Allowed Notes from Pharmacy: [facility] 01-23-2024 Note Entered by DYLAN NAILS DO on January 23, 2024 13:46:16 EDT From: MILAN NAILS DO To: [facility] Sent: 01/23/2024 13:46:16 EDT Subject: Medication [...] 11 Substitutions Allowed Route To Pharmacy - [facility] Patient matched by MILAN NAILS DO on 01/23/2024 13:45:54 EDT From: [facility] To: MILAN NAILS DO Sent: January [...] Refills: 11 Substitutions Allowed Notes from Pharmacy: [facility] 01-16-2024 Note Entered by DYLAN NAILS DO on January 16, 2024 14:24:31 EDT From: MILAN NAILS DO To: [facility] Sent: 01/16/2024 14:24:31 EDT Subject: Medication Management Documented Complete:omeprazole (omeprazole 20 mg oral delayed release capsule) Signed by MILAN NAILS DO 01/16/2024 14:24:00 EDT Approved with modifications: omeprazole (omeprazole 20 mg capsule,delayed release) TAKE 1 CAPSULE BY MOUTH DAILY Qty: 30 cap(s) Days Supply: 30 Refills: 11 Substitutions Allowed Route To Pharmacy - [facility] Patient matched by MILAN NAILS DO on 01/16/2024 14:24:11 EDT From: [facility] To: MILAN NAILS DO Sent: January [...] Refills: 11 Substitutions Allowed Notes from Pharmacy: [facility] 11-07-2023 Note Entered by DYLAN NAILS DO on November 07, 2023 07:53:45 EST From: MILAN NAILS DO To: [facility] Sent: 11/07/2023 07:53:45 EST Subject: Medication [...] 30 Refills: 5 Substitutions Allowed Route To [employer] - [facility] Approved with modifications: lisinopril (lisinopril 20 mg tablet) TAKE 1 TABLET BY MOUTH DAILY Qty: 90 tab(s) Days Supply: 90 Refills: 5 Substitutions Allowed Route To Pharmacy [facility] From: [facility] To: MILAN NAILS DO Sent: November 06, 2023 9:32:22 AM BRANCH MANAGER Subject: Medication Management Due: November 07, 2023 12:07:40 AM BRANCH MANAGER On Hold Pending Signature Drug: fexofenadine (Leigh [...] Refills: 5 Substitutions Allowed Notes from Pharmacy: [facility] 09-23-2023 Evaluation note Encounter Date Diagnosis [...] 3 days Sep, Bronchitis (ICD-10 - J40) [facility] Other 11-07-2023 NotePatient Education Materials Follows: Sutured [...] and water are not available, use hand assistant professor surgical technology. ? Change your dressing at least once [...] at home: Medicines ? Take or apply wnet-xal-medlnoj and prescription medicines only as told by [...] by your health care provider. (morecontent not included)...[id number] Note Entered by MILAN NAILS DO on June 28, 2023 14:22:45 EDT From: MILAN NAILS DO To: [facility] Sent: 06/28/2023 14:22:45 EDT Subject: Medication Management Submitted: Complete:lisinopril (lisinopril 20 mg oral tablet) Signed by MILAN NAILS DO 06/28/2023 14:22:00 EDT Approved lisinopril (lisinopril 20 mg tablet) TAKE 1 TABLET BY MOUTH DAILY Qty: 90 tab(s) Days Supply: 90 Refills: 0 Substitutions Allowed Route To Pharmacy - [facility] From: [facility] To: MILAN NAILS DO Sent: June [...] Refills: 0 Substitutions Allowed [id number] Note Entered by MILAN NAILS DO on May 24, 2023 07:28:08 EDT From: MILAN NAILS DO To: [facility] Sent: 05/24/2023 07:28:08 EDT Subject: Medication Management Documented Complete:lisinopril (lisinopril 20 mg oral tablet) Signed by MILAN NAILS DO 05/24/2023 07:28:00 EDT Approved lisinopril (lisinopril 20 mg tablet) TAKE 1 TABLET BY MOUTH EVERY DAY Qty: 7 tab(s) Days Supply: 7 Refills: 0 Substitutions Allowed Route To Pharmacy - [facility] Patient matched by MILAN NAILS DO on 05/24/2023 07:27:02 EDT From: [facility] To: MILAN NAILS DO Sent: May [...] Refills: 0 Substitutions Allowed [id number] Evaluation note* Encounter Date Diagnosis Assessment Notes [...] is not contagious from itself or drainage. [facility] Other 05-30-2023 NoteCONSULTATION CONSULTATION DATE: 02/15/2023 TO: [...] the lower extremities. MEDICATION: Current medication includes [place] 5 mg t.i.d. p.r.n. Patient reports it [...] our patients to inform us about any pbgl-rqx-ckkkfbf medications or herbal remedies/nutritional supplements/alternative remedies. 2. [...] treatment options with their primary care provider[id number] Note CONSULTATION CONSULTATION DATE: 01/06/2023 TO: Dr. [...] our patients to inform us about any mgjh-tjw-wtzubxo medications or herbal remedies/nutritional supplements/alternative remedies. 2. [...] treatment options with their primary care provider.[id number] Note CONSULTATION PROCEDURE DATE: 10/06/2022 PREOPERATIVE DIAGNOSIS: [...] will be followed up in the office.[id number] NoteCONSULTATION CONSULTATION DATE: 08/26/2022 HISTORY OF PRESENT [...] his muscle relaxer. Our clinic prescribes his [place] 5/325 b.i.d. and diclofenac 75 mg b.i.d. [...] normally does. All questions were answered today.[facility] [id number] NoteCONSULTATION CONSULTATION DATE: 07/22/2022 HISTORY OF PRESENT [...] a cane. He has seen [facility]surgery at [facility] in the past, which they feel, at this time, he is not a surgical candidate and to be managed by Pain Management. He current does see Dr. Galeas at [facility] as well. Activities that aggravate his pain are pulling, sitting, walking, lying down and bending. He will alternate heat and ice which he feels does not make a significant difference. Medications include trazodone 50 mg q.h.s., tizanidine 4 mg b.i.d., Lyrica 50 mg t.i.d., diclofenac 75 mg b.i.d. and [place] 5/325 b.i.d. He does attend pool therapy at the [facility] 2-3 times a week, which he [...] be followed up in the clinic thereafter.[facility] 04-22-2022 NoteCONSULTATION PROCEDURE DATE: 04/22/2022 PRE AND [...] will be followed up in the office.[facility] [id number] NoteCONSULTATION CONSULTATION DATE: 04/15/2022 This is a [...] mg b.i.d., Lyrica 50 mg b.i.d. and [place] 5/325 b.i.d. He is complaining of trouble [...] is gained for his trigger point injections.[facility] general Narrative - Reported* Type Description Date Medical History HTN (hypertension) Medical History GERD (gastroesophageal reflux di sease) Medical History Chronic pain Medical History Anxiety Surgical History tonsillectomy and adenoidectomy Surgical History ablasion [facility] Other History general Narrative - Reported* Type Description Date Medical History HTN (hypertension) Medical History GERD (gastroesophageal reflux di sease) Medical History Chronic pain Medical History Anxiety Surgical History tonsillectomy and adenoidectomy Surgical History ablasion Surgical History nerve block Surgical History epidural [facility] Other Summary Purpose Family History No Family [...] section and content) DATE CREATED AUTHOR 03/09/2018 [facility] DATE CREATED AUTHOR AUTHOR'S ORGANIZ ATION 01/19/2022 [facility] DATE CREATED AUTHOR AUTHOR'S ORGANIZ ATION 02/25/2023 [facility] DATE CREATED AUTHOR AUTHOR'S ORGANIZ ATION 04/21/2024 [facility] DATE CREATED AUTHOR AUTHOR'S ORGANIZ ATION 04/21/2024 [facility] REASON FOR VISIT (unrecogniz ed section and [...] BE BASED ON THE PRIMARY CLINICAL RECORDS. [email or web address] [facility]. provides no warranty or guarantee of the accuracy or completeness of information in this document.
[2024-04-24 07:35] VITALS: BP 140/96; PULSE 69; TEMP 36.2; O2SAT 97
[2024-04-24 08:06] VITALS: BP 163/84; PULSE 70; O2SAT 90
[2024-04-24 08:09] VITALS: BP 162/104; PULSE 70; O2SAT 97
[2024-04-24] MEDS: BUPIVACAINE HCL 0.25% PF 25 MG/10 ML VIAL 2 ML INJ (08:11)
[2024-04-24] MEDS: IOHEXOL 240 MG/ML - 10 ML VIAL 48 MG INJ (08:11)
[2024-04-24] MEDS: LIDOCAINE HCL 2% 400 MG/20 ML MDV INJ (08:11)
[2024-04-24] MEDS: 0.9 % SODIUM CHLORIDE 10 ML SYRINGE - SALINE FLUSH 2 ML INJ (08:11)
[2024-04-24] MEDS: METHYLPREDNISOLONE ACETATE 80 MG/ML VIAL INJ (08:11)
--- NOTE | 2024-04-24 08:58 | P.ON_ITS ---
Date of procedure: 04/24/24 Pre-op diagnosis: Lumbar radiculopathy Post-op diagnosis: same as pre-op Procedure: Lumbar 5/sacral 1 Epidural Steroid Injection Under fluoroscopic guidance Immediate complications none Solution used for injection: Marcaine 0.25% 2mL, 2cc Normal saline, Depo-Medrol 80mg Omnipaque 3 mL Anesthesia local 2% lidocaine up to 4ml Timeout process compliant After informed consent obtained. Patient brought to the procedure room placed in the prone position. Skin overlying the area was prepped and draped in a sterile fashion using betadine. 25 gauge needle used to raise a skin wheel with local anesthetic over the target area identified under fluoroscopy. A 17 gauge Touhy needle Was inserted over the anesthetized area and directed towards the inter- space under fluoroscopic guidance. Epidural space was identified with loss of resistance technique to air. Needle Tip placement confirmed with injection of contrast solution in AP and Lateral views. Steroid solution was then injected. Anesthesia: Local Surgeon: Gustavo Carrillo Condition: stable
== END 2024-04-24 08:12 | disposition home or self-care (01) ==
LOC: SURGOUT 07:25
PROVIDERS: PCP Family Medicine; Visit Provider Anesthesiology Pain Medicine
DX: M54.16 Radiculopathy, lumbar region (principal)
CPT/HCPCS: 62323; J0665; J1010; Q9966

== ENCOUNTER 2024-05-03 08:41 | Outpatient (OUT) | payer MEDICARE, SELFPAY ==
--- OUTSIDE RECORDS SUMMARY | 2024-05-03 08:47 | XMS_ITS | CCD ---
Author Organization [facility] Care Team Providers Care Film Waxer Name Role Phone KIRNUS, DALLAS Unavailable Unavailable [...] GIL ., DR LUCY Maurice Admitting Unavailable OCNWAY ., KALI Consulting Unavailable HOUSE, DR SOLO [...] HOUSE, MILAN P Primary Care Unavailable HOUSE, DO MILAN P Attending Unavailable HOUSE, MILAN P Primary Care Unavailable HOUSE, DO MILAN P Admitting Unavailable HOUSE, DO MILAN P Attending Unavailable HOUSE, MILAN P Primary Care Unavailable HOUSE, DO MILAN P Attending Unavailable HOUSE, MILAN P Primary Care Unavailable Rashad Bowman Attending Unavaila ble Rashad Bowman Admitting Unavaila ble HOUSE, MILAN P Primary Care Unavailable HOUSE, DO MILAN P Attending Unavailable HOUSE, MILAN P Primary Care Unavailable HOUSE, DO MILAN P Attending Unavailable Medications Current Medications Medication Drug Class(es) Dates Sig (Normalized) Sig (Original) Acetaminophen / HYDROcodone (2 sources) Opioid Agonist take 1 tablet by mouth every six hours as needed Constable 5-325 MG 1 tablet as needed Orally every 6 hrs Active [id number] actuat albuterol 0.09 mg/actuat metered dose [...] 30 Days Active take 1 capsule by [facility] every twenty-four hours DULoxetine HCl 60 [...] Value Interpretation Reference Range Facility [facility] 04-24-2024 Outside Records [id number] 62#1.00[facility] Rad - Other Radiology Report on 04-24-2024 Rad - Other Radiology Report [id number] 49#1.00[facility] Patient Letteron 04-11-2024 Patient Letter [id number] 36#1.00[facility] 04-05-2024 Outside Records [id number] 3#1.00[facility] Outside Records [id number] 9#1.00[facility] Rad - Other Radiology Report on 04-02-2024 Rad - Other Radiology Report [id number] 44#1.00[facility] 03-02-2024 Outside Records [id number] #1.00[facility] 12-08-2023 Outside Records [id number] 49#1.00[facility] 09-28-2023 Outside Records [id number] 4402#1.00[facility] Coding Summaryon 08-25-2023 Coding Summary HTMLBase 64 QanbfyamQHe9hTn+PGh lYWQ+OD1YYURrN31uvB RezU0tL1ESKTtMVygnV NUEVCrQOpNtrjCfCU3j aXNjZXJu IC8+VP7kWCPgLfmroKC us3P2yKO4Y59rfh9cAZ ixiLT5LUSgFxLeyftgw 9xvlOh4AUtiVhqmVvMx ORKehW00LZA8zJ84Op1 2tMUnjCQpl7bgyYx6Pv HmPVJxJDQ9kUwqSAzvz 2QrDAOnB44rePTfw2T6 IGNvbGxhcHNlOyBlbXB 6uV9mWEpuriikl3ghoz ysGkm0un88uQKfo3Z6j ER8W7QefhU4BBFfrMBg ViagiIVYfA7yuoofk6v epwokPyZrLWXrMLy4AI z0QKGojDfiAlCvWT00V FB7LUVlbmKmC8ZnLTEi eTuiEbL1g9W7Vz3RT7B XTfzgH6XKSHGGIDfupM Q+AG18ux09H3TaKeeaU qc2RZBlKUK1oQC8uY7p QEXoRDees6H3lFN3D1X miqScax5qf9qhLWJjDD qrD82ioFPeg2K1QREcf KJ2ALGcwTkxXiAwnT97 Oyc+BROlvZksv2AqPlw fk3sxc4ituAw4ApxhHH JparHwxUdxDWR7f5CjI i9cJULkyHV7wJW1yQ1y RvDeJoP0LOheK391IzW cmJIvNiwdC26rC2EudM A+MWLdHvs4KWEnsQfvR W4oT4LfPGLqkxkltWCc cUtlBD0jNURvgurmCIB myM9hMANiL9w8PxLhCt H1TYatS4LrQLCaibbbH h19wL4nBtSwQgK4WGuz N2StzvB5XGVloYGbCKx tKFD0O91gq0V0XGAeOC MpYZL6vWO2iW3fuJttm jogbGVmdDsgdmVydGlj SQvuAXjzC530ZTSogId nPkNvZGluZyBEYXRlOi AgMTIvMDcvMjAyMzwvd GQ+ONMcLUP7cSfgPAIz sQSwNCceHp1qwAjkwUd nWS0wCCLjwvmhIRDpoX 3sCSUscLLfeDzvSP1oK PSvivnxn765OcBrATT0 PHPmdSBrU6OznE3pTkO eSQOnXWXdA6GdlQGlUO yzG282OOpkFvA1AOIww dHrY8EzDECtbRxmYlU7 u6T0Ou3Ey5JtwqddU2Q jmNIbFiVqLehtLCb4N9 RkPjwvdHI+GE87AYLjH W95WWh7LUI8mWteCVgc LLJbO0GofD8mMlUuLAQ kZGRkOyc+PHRhYmxlIH dpZHRoPScxMDAlJyBzd RvkUU6fYd7nAMVxPNBi jIsjyMBqJsFse2jdYJD xWHzyXX2vwLxvC8XwhV H9SNFia1i3Gb71U18uH 3JvdXA+RRTzjUT2rSL2 mW7mAqMcUtP4QOcaO60 4HoZtmGToFosev6wfc0 vnbWo0EhC0SKKpimPnb XgiKPQ8i1CrVe23F53z IHdpZHRoPSIxNSUiIHZ phFedcc8gaQ8sZr2+PG AyuJE9uKS8kL2lFfLyE xQ6QMvkC405EpLhgEAi Rjycr9ldg3ysmOo2XmC dCZDkrzYokMskZUK9u3 AkUb17U3AwwAzys1GuD cs0hw47wEOuk2Y5xTO5 D8JnMPUwbambnOVatEc uAS1aRIJtdrzoANWidX 1nNDPgY5d2FoHqHoJ9B FwgW0TchcF9PGYlxCUo DVEatNULiQ4qhslmy6g yqmexYaRzOBRbQGm4QM p5IFTjbWxdShNfBOE9A gB5NTT5mJYmdS9yuTyh vwigmA9iBxi+WUI2jWG uzVWFOV7fTaacfOB+PH XuWDU0lUqiNObrAWDrp M8nXWPhM3l4HlXwQjG3 MAgeD0ZtvnX0JWDmdXO lUJLzcYUAvF0etuamu7 ctfggcWiYeGUFfDVp2E Qt5PEBpxKhzIcMgEAH9 XsC3BLC8wCJfkL7ssFh kizufaK5kLqa+QmlydG iaIAZ4FUo1M5XkBpr9F ZUxhAtyYF1uzAWqYIeo Cn8dqLvvcBtyNM9jBMF grdxfr537YmTpy4qdLE DdqLEuSYwoUFS8B52yf 2W7XTGpYWJxUQZ7zMS3 cD3ihNbiqfqigJRjpIu gdmVydGljYWwtYWxpZ2 62FXUvpZmfCcUyAUo6J 7GcLxe0ONPmsOlkPJ0w uAHaNVwuXp0zaYpmqXo cHQ1qWAEyvwsnf887Pl Pqj3bdOTGmnRHsVPlmC MU5X54qp8U0RRDeTMGo AMR2pPB5mT4ubCpksow gbGVmdDsgdmVydGljYW maTRvlP868DCWrtAyjW zUnbWv2A3CbAbh4VGEz hQdrWE3ukGXcLVmiQw4 yeYqgqTtvEA7xUGNwiv nao030BmNga6kqITRjz MZkVJqvXIF8Q41gd2J9 EOEhXSZhHOJ0nHQ0eQ0 hbGlnbjogbGVmdDsgdm WjuSsaUZiyPZdeR353L HRvcDsnPlBhdGllbnQg JHzpHLc4L5VnDdookGB +SR13LBUhGQ57pTAbjE Jxg4gtpCn1DaMpHDKwD ZV8rPdvGWwdf9GgHNYp U86wrROwf5X7HRSbzZg enBPgWqIgzKE1rF8sMJ kloioxt5mizrklXdbdc 5wxbq62uL58J59jGJqf ZHRoPSIzMCUiIHZhbGl qng1exN8kOy3+PGNvbC J6mIR5oS3cKQXsGaO2Y XaqC120YaOwrREwBbga x7vnj9dkuZm1MgH8OUT llcOhgNznEMC5v3UuXg 19M66rQJvhJAIcIEShP YHwQPRmlCmene3rrP2l Ii8+WVIdeYK6gSF8tT3 cQpVtWzC6ENlsA186Gi PuoEHpVavfS34lM2Xjm XA+WLEmCym6UNRkiZfg YA9xiDMrJNlhUr6nGVW 6XrDfJiTrEDbqO0ZxLJ AiatmwwppjxOP2KMCgJ AGnsM88Ss3yiIwuPRTa wHVUcV8xxjqjl2suykh vKlJgIIQyXQa5TIv2FF ZpwYxkPvKoUEG8OjS9J YT7hYZqrM4glEqpuvuc fT9gV7DeQPKrekbvSx3 6kO7bYzFvNzN9HKcgIi c+R9ZQWB2RRbulR7QPD ZVGBGZZL3UZZZhahKG+ FCXmAEV2wDxzNUhiTVP nsZ5hLCBaW7r3OpAgQp O1WCwqT5XbLTNiwbryR d28bW2cHgXyJiR5QNci Q9AvrmY6EEQnfFDlVWe hHQN4Z68wc0Q1PNYjAN DiAYB1dMT5rW9ufMyny jogbGVmdDsgdmVydGlj XHzxMVcgB302TNKdqCv wQiJaJyJoQhJ3EnM7D3 YsBbv3BCJynThlRD4dd DYwDAxcOd1izTafjXrk FT4cEPRfstboJHLyeV5 nPHGbsZNfhGnxCR4iTL Ualkaoo007UjZeMOV2J KZhhLEdV4KwtI2aKpKu UPSkCQNaP0NpmIWtTYv aU837NTzkObJ9HWXcpx MsQ5LxIOMxyUlqOiQ9b 1J4Li52XKTVSLVptbwq dGQ+BHXdFME8bGkoYZg nSMNtbZ7cCALxX8q4Yu QnIpN3ERirX6ZmZOGzd gvrMj83zQ7yDvEbWhQ8 FPwbF4CjepQ8YKWagRK tNNnzSLZ6I95ym6G6WB DeZKSrUIM8oZO5nY2kq GlnbjogbGVmdDsgdmVy jWpcGGoqIIwlR266ZHL dsIiqKa1HFLK2C9IgEe o7UMOjqPafCX1ccFDyA SneCw0jiMaetOxvRW2o WATfohemNJLeoM3lWNV egTGlxGktYE6eMQJwbo wgt691YpWbWOL2JCXjj VNdN2PhnO2tMhDhAHLf CCYhB7PfwAUaOOtsT48 8JAmdHcN0LHInujIcV8 MhLOKgfKczSwS6l0J7P w3GSCpwsMC+VZ75zp60 G6ZsDkfnAqu3VMInNTC 8lRK5hX9dYRRyFDarw2 H3hRT7H9IeisNspw5ji 1euYWVySTawA02miIQc k9Z0GSKswGR8VFZlhIf aXiMryF09Kwf+PGNvbG rcm6TsIihvr5csz5kks Oi0KvIhVLJnsmVgjObj CSZ3s2StDj21F61mGLn pZHRoPSIzMCUiIHZhbG udtz5nlV6uMc8+PGNvb UQ2kNT1vP2nItXpZrZ2 WMifG502PwUpxYSbFcd wb9pft6ritWv1MuNxMO ZoboLomKpuGWE4p2ZdN t55C0YcdWjvy9DvBzf4 tw37xPPrj5B4sPE2K2E hZGRpbmctbGVmdDogMC 8dSTCuezhdCCXceN3gM XNdL5u6QwFcKhQ2GBql Z4ZocdW0SVQfjXQuVXX qrKKSxD4xffshl3vgwm wpPuPuWEKmFAr8TGl3U GRmxWkyUuXbXHD2KkK7 WDK7oRHswX9wdVwohzi lgH1vOfb+RIm7t0ftpI LzTC3luKR0NS57PP86w OAif6X8rUD7N3IkWLIu cwzghurlhKU4LBLzWMJ poP73Hs9lnDgcOw2fPT JjOOA9BWUddQQhV3Rnb X1tMlLhHMPxJMKiK0Aa iSXjARksX386REdfBcG 9BDNpjyNyP7OdNUYjkJ xjXcH2l5G9Kb0INP09N R43ST49dJQqd6D7kHO7 S2AdOREoqdhhqdepnIM 8JPOeJDZayX94Kb4zxA drXu0gTQOuIUO4FZYri LZnW7YlpY1qRbPcNWFg HWVeY3AnwDFgCCmpC21 6NUftUuN9SBUvooPuD7 ExAOSvmVwiUcR3m2M1H g2OBa09WW44EY94lPUs s7X7hXN5U3YrLMWktmc uhgxzsGH6OJTmERPdwQ 72Aw3ikAvsBl7wGDQlO LE6RLCclFWoU9UyeI1f BaFcLFUhCIPiR5HlmLK fALrvW170LFmpSjO3ZC WytqBxH1AsASIwrLfjV tX8p4U2Yt2BCNynowl6 M9VxTwlsiBO+DI62WOP fOX78wMRemQVvs0zbyL l6TiZgBEGpQSX1eXvfV Urjk1PmMQYjX10mwCZz c2U (more content not included)... Normal [facility] .Auto Diff 08-24-2023 Auto [place] % 6 % Normal 09-30 [facility] Comment on above: Performed By: #### 1 [id number], 15021921, 7290563484, 6698053, 3934340956, 7809159 ####[facility] (DEFAULT)[address] [place] [address] Baso Abs# 0.1 x10 Normal 0.0-0.2 [facility] Comment on above: Performed By: #### 1 1482931, 09706944, 7280130870, 1908974, 0124507679, 1898700 ####[facility] (DEFAULT)[address] [place] [address] Basophils/100 WBC (Bld) 1.0 % Normal 0.2-2.0 [facility] Comment on above: Performed By: #### 1 9246045, 34270934, 4884875884, 4581690, 3831667505, 5260550 ####[facility] (DEFAULT)[address] [place] [address] Eos Abs# 0.1 x10 Normal 0.0-0.4 [facility] Comment on above: Performed By: #### 1 6556707, 06653932, 6364641128, 4970633, 3050374343, 6915604 ####[facility] (DEFAULT)[address] [place] [address] 36613 Eosinophils/100 WBC (Bld) 1.1 % Normal 0.9-4.0 [facility] Comment on above: Performed By: #### 1 1971943, 87974001, 7622108650, 4406381, 8926260757, 4964050 ####[facility] (DEFAULT)[address] [place] [address] Lymph Abs# 2.1 x10 Normal 1.3-2.9 [facility] Comment on above: Performed By: #### 1 6065274, 13528539, 1046110670, 2845241, 3857774005, 7475551 ####[facility] (DEFAULT)[address] [place] [address] Lymphocytes/100 WBC (Bld) 26 % Normal 14-48 [facility] Comment on above: Performed By: #### 1 5119491, 96642607, 7931054319, 9065324, 7832911758, 1912934 ####[facility] (DEFAULT)[address] [place] [address] [place] Abs# 0.5 x10 Normal 0.0-0.8 [facility] Comment on above: Performed By: #### 1 0477133, 37253275, 6108477576, 8506852, 7542038098, 3070660 ####[facility] (DEFAULT)[address] [place] [address] Neut Abs# 5.2 x10 Normal 1.5-9.2 [facility] Comment on above: Performed By: #### 1 0910645, 01855288, 6393324636, 3334098, 3444282677, 4339400 ####[facility] (DEFAULT)[address] [place] [address] Neutrophils/100 WBC (Bld) 65 % Normal 44-88 [facility] Comment on above: Performed By: #### 1 0575084, 67804482, 1501774227, 2711811, 5604656667, 8896263 ####[facility] (DEFAULT)[address] [place] [address] CBC w/ Auto Diffon 3 Erythrocyte distribution width (RBC) [Ratio] 13.7 % Normal 11.5-15.0 [facility] Comment on above: Performed By: #### 1 4288283, 74103904, 8060956960, 7184070, 6569548127, 7318701 ####[facility] (DEFAULT)[address] [place] [address] Hematocrit (Bld) [Volume fraction] 45.6 % Normal 34.8-51.9 [facility] Comment on above: Performed By: #### 1 6582054, 77540769, 1058146670, 4710601, 5039133936, 7051217 ####[facility] (DEFAULT)[address] [place] [address] 01970 Hemoglobin (Bld) [Mass/Vol] 15.2 g/dL Normal 11.8-17.7 [facility] Comment on above: Performed By: #### 1 6834767, 13103506, 4165420430, 8488153, 2681921004, 4905376 ####[facility] (DEFAULT)[address] [place] [address] Man Diff? Auto Invalid Interpretation Code [facility] Comment on above: Performed By: #### 1 7032007, 81554801, 7405269975, 5104624, 6874795053, 0003445 ####[facility] (DEFAULT)[address] [place] [address] MCH (RBC) [Entitic mass] 29 pg Normal 24-34 [facility] Comment on above: Performed By: #### 1 2472230, 64269227, 9581720336, 3055454, 7074356684, 5361502 ####[facility] (DEFAULT)[address] [place] [address] 18490 MCHC (RBC) [Mass/Vol] 33 g/dL Normal 26-37 [facility] Comment on above: Performed By: #### 1 9882654, 50148943, 7180567760, 4941017, 5494077149, 4149831 ####[facility] (DEFAULT)[address] [place] [address] 89033 MCV (RBC) [Entitic vol] 88 fL Normal 81-100 [facility] Comment on above: Performed By: #### 1 7443773, 84886408, 6768384467, 2281361, 3691820459, 8986482 ####[facility] (DEFAULT)[address] [place] [address] 08751 Platelet 391 x10 Normal 138-427 [facility] Comment on above: Performed By: #### 1 2835267, 99940262, 4401325975, 3390339, 1958032235, 4660205 ####[facility] (DEFAULT)[address] [place] [address] Platelet mean volume (Bld) [Entitic vol] 8.5 fL Normal 6.3-10.2 [facility] Comment on above: Performed By: #### 1 0498470, 26935817, 0774948321, 0870948, 0329212367, 5751495 ####[facility] (DEFAULT)[address] [place] [address] RBC 5.19 x10 Normal 3.70-5.30 [facility] Comment on above: Performed By: #### 1 4844318, 11008178, 6982501123, 5307769, 4754347252, 0106311 ####[facility] (DEFAULT)[address] [place] [address] WBC 8.0 x10 Normal 3.5-10.5 [facility] Comment on above: Performed By: #### 1 9045706, 38989217, 5390718914, 9979639, 5387746130, 3533795 ####[facility] (DEFAULT)[address] [place] [address] CMP Standardon 08-24-2023 eGFR Non AA >60 Invalid Interpretation Code [facility] Comment on above: Performed By: #### 1 9895516, 58327161, 2359058968, 3140120, 6913641800, 7857235 ####[facility] (DEFAULT)[address] [place] [address] eGFR AA >60 Invalid Interpretation Code [facility] Comment on above: Performed By: #### 1 8048715, 87835440, 5317114146, 8094820, 7254943536, 4733612 ####[facility] (DEFAULT)[address] [place] [address] Albumin [Mass/Vol] 4.4 g/dL Normal 3.5-5.0 [facility] Comment on above: Performed By: #### 1 2875247, 69072728, 9296723596, 9880648, 2527326935, 4566842 ####[facility] (DEFAULT)[address] [place] [address] 45733 Alk Phos 60 IU/L Normal 32-91 [facility] Comment on above: Performed By: #### 1 9704945, 34512297, 0045583763, 1520197, 2983172815, 3307233 ####[facility] (DEFAULT)[address] [place] [address] 76922 ALT [Catalytic activity/Vol] 52.0 U/L Normal 17.0-63.0 [facility] Comment on above: Performed By: #### 1 8980270, 48431583, 2846176648, 5400101, 3104329946, 1166206 ####[facility] (DEFAULT)[address] [place] [address] 57956 AST [Catalytic activity/Vol] 32 U/L Normal 15-41 [facility] Comment on above: Performed By: #### 1 7633149, 26643143, 7801880477, 0610916, 3388714928, 5954429 ####[facility] (DEFAULT)[address] [place] [address] 76915 Bili Total 0.9 mg/dL Normal 0.3-1.2 [facility] Comment on above: Performed By: #### 1 7214467, 97737374, 2987830592, 2818810, 0949099903, 0306090 ####[facility] (DEFAULT)[address] [place] [address] 61053 Calcium [Mass/Vol] 9.4 mg/dL Normal 8.9-10.3 [facility] Comment on above: Performed By: #### 1 8861705, 63534385, 8603243913, 4970919, 3106745621, 7509547 ####[facility] (DEFAULT)[address] [place] [address] 68277 Chloride [Moles/Vol] 109 mmol/L Normal 101-111 [facility] Comment on above: Performed By: #### 1 1415568, 17186740, 2874916856, 8186152, 7237002310, 4988796 ####[facility] (DEFAULT)[address] [place] [address] 14299 CO2 [Moles/Vol] 25 mmol/L Normal 21-32 [facility] Comment on above: Performed By: #### 1 5457842, 87297091, 6222955004, 4579723, 2140029484, 8453859 ####[facility] (DEFAULT)[address] [place] [address] 24684 Creatinine [Mass/Vol] 0.74 mg/dL Low 0.90-1.30 [facility] Comment on above: Performed By: #### 1 2607501, 61412000, 9938671818, 8608087, 6901408237, 2516068 ####[facility] (DEFAULT)[address] [place] [address] 99307 Glucose [Mass/Vol] 105.0 mg/dL Normal 74.0-118.0 [facility] Comment on above: Performed By: #### 1 5938081, 48038809, 1608282715, 4212080, 4685372888, 0378993 ####[facility] (DEFAULT)[address] [place] [address] 17557 Potassium [Moles/Vol] 4.0 mmol/L Normal 3.6-5.1 [facility] Comment on above: Performed By: #### 1 3149549, 99088922, 2425813634, 1370269, 2738024886, 5331614 ####[facility] (DEFAULT)[address] [place] [address] 53635 Protein [Mass/Vol] 7.5 g/dL Normal 6.5-8.1 [facility] Comment on above: Performed By: #### 1 2406988, 80944069, 2545979929, 5554521, 9226644380, 1007603 ####[facility] (DEFAULT)[address] [place] [address] 46923 Sodium [Moles/Vol] 140.0 mmol/L Normal 136.0-144.0 [facility] Comment on above: Performed By: #### 1 0247196, 23337963, 2568668973, 2209088, 4395016014, 8634663 ####[facility] (DEFAULT)[address] [place] [address] 61136 Urea nitrogen [Mass/Vol] 10 mg/dL Normal 8-26 [facility] Comment on above: Performed By: #### 1 1816318, 24204912, 9418294577, 3190687, 8143337028, 8202900 ####[facility] (DEFAULT)[address] [place] [address] 36882 Albumin/Globulin [Mass ratio] 1.4 {ratio} Normal 1.4-2.6 [facility] Comment on above: Performed By: #### 1 8133049, 66635717, 4587508815, 3714117, 7824676724, 4726487 ####[facility] (DEFAULT)[address] [place] [address] 71792 Anion gap [Moles/Vol] 10.0 mmol/L Normal 5.0-19.0 [facility] Comment on above: Performed By: #### 1 5769805, 48414666, 9024060597, 4274785, 3931112754, 8428956 ####[facility] (DEFAULT)[address] [place] [address] 98968 Globulin (S) [Mass/Vol] 3.1 g/dL Normal 1.5-4.3 [facility] Comment on above: Performed By: #### 1 6973584, 57436299, 3783112379, 3830794, 3180195660, 5532117 ####[facility] (DEFAULT)[address] [place] [address] 92964 Osmolality 279 mOsm/L Invalid Interpretation Code [facility] Comment on above: Performed By: #### 1 [id number], [id number], [id number], [id number], [id number], [id number] ####[facility] (DEFAULT)[address] [place] [address] 16315 Urea nitrogen/Creatinin e [Mass ratio] 13.5 mg/mg Normal 4.6-16.2 [facility] Comment on above: Performed By: #### 1 [id number], [id number], [id number], [id number], [id number], [id number] ####[facility] (DEFAULT)[address] [place] [address] 59888 HgbA1c Standardon 08-24-2023 .Hb 16.6 Invalid Interpretation Code [facility] Comment on above: Performed By: #### 1 [id number], [id number], [id number], [id number], [id number], [id number] ####[facility] (DEFAULT)[address] [place] [address] 54826 .Hgb A1c 0.59 g/dL Invalid Interpretation Code [facility] Comment on above: Performed By: #### 1 [id number], [id number], [id number], [id number], [id number], [id number] ####[facility] (DEFAULT)[address] [place] [address] Glucose [Mass/Vol] 108 mg/dL Invalid Interpretation Code [facility] Comment on above: Performed By: #### 1 [id number], [id number], [id number], [id number], [id number], [id number] ####[facility] (DEFAULT)[address] [place] [address] 12787 HbA1c (Bld) [Mass fraction] 5.4 % Normal 4.6-6.2 [facility] Comment on above: Performed By: #### 1 [id number], [id number], [id number], [id number], [id number], [id number] ####[facility] (DEFAULT)[address] [place] [address] [id number] Reminder Messageson 08-24-20 23 Reminder Messages -- From: MILAN NAILS DO To: [facility] Clinical Pool ([facility]); Sent: 08/24/2023 12:33:59 EST ! Show up: 08/24/2023 12:33:59 EST Subject: Results Follow Up Actions: Call the patient with result(s) Due Date/Time: 08/25/2023 12:33:00 EST Reminder Comments: looks good Results: Date Result Name Value Ref Range 08/24/2023 10:17 Estimated Avg Glucose 108 mg/dL 08/24/2023 10:17 Hgb A1c % 5.4 % (4.6 - 6.2) Patient called and notified of results. Verbalized understanding. Normal [facility] Reminder Messages -- From: MILAN NAILS DO To: [facility] Clinical Pool ([facility]); Sent: 08/24/2023 12:24:35 EST ! Show up: [...] % (14 - 48) 08/24/2023 10:17 Auto [place] % 6 % (1 - 12) 08/24/2023 10:17 Auto Eos % 1.1 % (0.9 - 4.0) 08/24/2023 10:17 Auto Baso % 1.0 % (0.2 - 2.0) 08/24/2023 10:17 Neut Abs# 5.2 x103/mcL (1.5 - 9.2) 08/24/2023 10:17 Lymph Abs# 2.1 x103/mcL (1.3 - 2.9) 08/24/2023 10:17 [place] Abs# 0.5 x103/mcL (0.0 - 0.8) 08/24/2023 10:17 Eos Abs# 0.1 x103/mcL (0.0 - 0.4) 08/24/2023 10:17 Baso Abs# 0.1 x103/mcL (0.0 - 0.2) Patient called and notified of results. Verbalized understanding. Normal [facility] T4, Totalon 08-24-2023 T4 [Mass/Vol] 9.52 ug/dL Normal 6.09-12.23 [facility] Comment on above: Performed By: #### 1 [id number], [id number], [id number], [id number], [id number], [id number] ####[facility] (DEFAULT)[address] [place] [address] TSHon 08-24-2023 TSH Qn 1.11 m[IU]/L Normal 0.45-5.33 [facility] Comment on above: Performed By: #### 1 [id number], [id number], [id number], [id number], [id number], [id number] ####[facility] (DEFAULT)[address] [place] [address] Coding Summaryon 08-02-2023 Coding Summary HTMLBase 64 MhycrndtZYp0yTw+PGh lYWQ+MD4DWYCeB42kuD RwrK6iG4CQLQbLBitbP YGFXHbVWwZxhdAxND7q aXNjZXJu IC8+AM2aQMCfNzbtgHG rf1Y0tVV2Y68juc4sVP hjjIH2AXAhYyStgifpa 8ovrGt5IHylYklsKwAd HDWsqN95CSI5tH31Zp4 6uOKspMFmd0weqHz5Le JfDAYyGOB3aEyzNKqei 9KgYIQxE58tmLIrw0E2 IGNvbGxhcHNlOyBlbXB 6nP5mNGoiwpmxv5zmur ytTiq5gw80uPDoe6P5o YN1B4EcmgI3JQWsmGYr AubqgIXZkN8udiwko0p wmxjeYuPrFOVsZSh1DI m6TDLbsImrEoPjIH18J FI7MRWsafUfY1RtLJKf hCbzKeS8s2F0Fd8HY3V MHjpzK5XGSPZXTQnprF Q+WV81db70G9QyHohyP qx9AVBzHVE1bNS7wZ1k RDClVVdrz2Y3gRO6N5L rnwEmpo3aw1olKDNiZS wwJ52xcNXil9V0DWWok UG0WURsvBzcHdUkjK35 Oyc+MENwyFykw8ArBzq yg7tbf6yvdKd9ZiyyUH IfmtOwgHwlTUZ7b2CdG h7lVMBrwSJ1fOR1fY2h DyYoIiX5PStaP031QrM acVGvKhcxL13lE4SdiY A+HXPgAqz7HFCznEyuM F9dS8IxGONvbwnpvQLk zLqiCW7pNDZjbzrgVOR blR2zMVVmP4h7NwNeLl J3JKobY1QtBNOqgksjB t84jC1nBuLeAsJ5DNlv P5BeboJ8PRXxbUGgFXy rGRA8N37ux4J9WMVmAF OaSOH3iUY4mB5scTblg jogbGVmdDsgdmVydGlj JQxaYGcgY286NODnhKy nPkNvZGluZyBEYXRlOi AgMTEvMTQvMjAyMzwvd GQ+XSAsUHU4pIxoYAFm lINzGJyvNk5aoDvlhSf lEP3mKPIvnnmqAZEoaC 1fTXHacLBzwMydRL1oN MUiwcovb558EgAxRAY3 OTCjhAZxO6KppX4rYdO aNEAnNZFeV3BbbPThDY xhJ271BAugJcX1GESvx nPxU4KqXDMfhPxoVgT8 e0G3Ov8Qn8NhxpejI0V kyMShKhUdVbpsLPp9C2 RkPjwvdHI+WK04JKLhB R18RWf1WDU2wTrtHPwb RMVcP9VszG2yKiDmAOL kZGRkOyc+PHRhYmxlIH dpZHRoPScxMDAlJyBzd RxlPC5nPq6jYLJoEJXe fYeezADjKrBiw3xnLLI sKFddUG5yjLyhA6YenK P9BHMhh8n5Oe92N18nS 3JvdXA+WIKraKR6dGQ6 dM9oCdKtToE1JEwzQ20 5EvNtgKThVnaox4ugi2 fgjLl7TaS5VQWallHfg SdhMTS0t7ZmVb71X74d IHdpZHRoPSIxNSUiIHZ jwPaked0qgE3xFv6+PG GupIA3gWI0tM1gPqOfH gY6BEbkJ309FqYnmVHh Rseow7rmt2imiMr7OyQ iMTLmhhQsxRloHMT8o6 KvGf80Z5LkuSyxy2QvN rn5ex20gYOpf0O1kDN0 U9EkSOBhnckyaRUtdRj oEU3sWSIzdsegEBAbfL 3gRMRpU4q8BmBtIbC3I LrhA4AbjdK6LHJalWPl LQRbkHLYjN5vowrmy3h upeifDrYcCUNmBXi4OT k0CDFbdThvAaRnMRR7G qZ8ZKJ0kVBcsD5hbPep icpuaZ9pKxc+WBT9jNC doPLCNQ4jOvdmnTZ+PH VpJWO7nRjiVCzxINLpx F0qPYKnY5u7XsRqNfS7 WMstG2NpypG4BXFoiAB yBUJkbUGIeD4lohemr2 whadjfUiJoRLKzMDk7C Zt0QCYfyTumDxDdDVZ0 JzQ0SDR5oZCrgP7itOc dvasqmW2sTwy+QmlydG qrKES1QRj3E9JgOap0T EUjpFrnRY5ptKXqMHgb Bx7doOdiqMwwGD5cIPZ bbslyx642XtFoq3ygBH VgxTYwVYvpVEP7Q70cv 8L4WTJdWDYvFNG1kOD0 uY4vrXkscpebvEDasPu gdmVydGljYWwtYWxpZ2 41KHOqlLidAoQfVMh1T 5SzNtw6HGMiqLcmRB5x lTZxCGtaTg3cuPihrMi zRM2yRSOwblcgg816On Kaz2hoXSPjfDStHVvfE YD9M05fw7U3EGBwBCKr PZX4oOJ8fS6bqZhncza gbGVmdDsgdmVydGljYW ufUYigT148YZIyiHbiA cEncMe4Y7OlSiz9WIMz rBrnVL7ncCFwUQmzNw1 vtOhhsKqpHO4eIZApdu sit249VqQbk9ocEXZct OZmRAtpMIO8Z31lm0I8 XFQnWHVeWYA1mJB8nG6 hbGlnbjogbGVmdDsgdm MkdIoxMMzlJEoaJ973S HRvcDsnPlBhdGllbnQg JDzqCHe9S5XvHwqllCN +XL81CAIrSP56jZUnrM Zom3sxpFx7IbOtBIXrD WM5qWolOPhef7RxASVx Z37umDQrc8Z1MHDwiAi tgUZlFrLsiQI9zH5mUY pzensha6empvceWuaxy 8muql32hE09B24uQLmd ZHRoPSIzMCUiIHZhbGl emj1baS2cFf0+PGNvbC I0zYP3eA0eSRVnIlO7B BohQ792TrYefIZkEofa w1pjo8vwhNx5TxB4DQR lxeUpmVnnMAG8t6WoIa 10S75zYHudGIFqTYRdR LPuYLLwlYijar1bhJ3s Ii8+DYEilPI8cSU4hC8 tHyKvVoU0KYfcZ573Ko BfoCHmZrxhC33dG2Zqc XA+IMZlZmm7HTXdeJkt NM7qhQOoGBwnWa7bJLM 1YtOlQeEpOSpuF7SnGI LmwdrjlgbkwFC4OFPuD HVlzV60Zb4woQfuLRSa yWDTqN8ejawcs5mmyev mFtIlPHJfCRe6RSw1TZ VfdAmwKgCfUAF4NtO8Q OO2hUCfsW0jcDjvoujp lK5aF9UpNMUyfeakJu1 0zK6sCmGfWfK1CKlkAl c+Y8CRWM5BEcqgN6LYW XZCCJTOY4TLCCpmuCZ+ PGLiGFD0xGucGNgbXLQ izM0hFSKiC9r8DoFoOk J1ZZrtZ2ViQGIguwruW n22mU3kWuPbXwB3SYzt J5MremM2XQGrtUQaGFv oQJR5O46gt9K7IBTeHI BuNJN2dLU2yO0wwRinv jogbGVmdDsgdmVydGlj FUkuCLhtU974IPQrgRt wQxKuHcTuHwT8TnX1Z8 OrUgb1ODYqjHlwEC4yj IGkDHixLl8boQrbbBrp PL0lHVJyvvkfZPBxdT0 oJWVchVNhkMucTV9cLL Aguqjox481RvBeJAR7L GOzdFOaN1SjwL1nEqLb RNBoJESfA6LzdGCkBPn mA668WWpmFoY3OVJnws AdN0ElZOKdyUlaBmI0d 2Z9Yo31VEBKUBWzqahb dGQ+JRBsZCT3dMryXKe zSNXinH8kCVIkJ1w5Qn AsZnS3HPihV5UlCDElv zwwRg26kZ9fDuRkAvW6 ONeuI2FgpbY1SBPwhIJ mELuzNDH8P64ea0M8CC JhJLUlYJZ6lBD8nB4lq GlnbjogbGVmdDsgdmVy eXzpINxjDEjvF212NSE ikUbhNs3KCVK3E0CqPg k9PLStmDnqPM9ipDXsH TyePa7nmWyloHfqYQ6t TDNiiqdeLNZdoX9uJAU xiHOxpFeiLV5wAIWebo qfw048ZsHhCFF7RCJul WNdI2JpzL9tJmMdIBSr CBYwF8OakTPwQFspE95 4NSyjUjQ4NJCdmjVcB3 McNZAkcMaiQwD2k4L6X y1HPMbfzVX+JR92ko48 V7EdPlhwMbg2WQNbTVR 5lZW9zM5pTCVaZVrxk8 Z9dGR8G6ClhpRhwj3zw 6ddWEBqBMziP68ktGPh h4Q2PNUphTW9TKFtlFk yVjOmiY02Yot+PGNvbG cvt6WyNvjhm8tsw2vis Mn2BnFxGHCnkmHkfCmz VQP0x7WuOw17L83aVVp pZHRoPSIzMCUiIHZhbG afrx6lgF9yOo0+PGNvb OE5cRF4qK3pEaNiIxJ4 NFbfT639RrDsdSBtYuv sy5uxd2ilpXm2ViLsZE BeorGjzUibZQU4n0NyK l19H3NvnWimy1SvZvk0 zj39eMFqx1J5oXJ7V1I hZGRpbmctbGVmdDogMC 9kGMYugjakTHYiuN0bZ QKgN0c6SrOxWwK1XLhk G0FeapS4LBBarMAyBLM lnIHXxU2guxauu9tfww zjTlRsQYNiQZw9OCr0Y ICdkRtxYoPqGJJ2DrW7 HUO9zPNoyR3weLevzxu aaX8iGba+PPd5l0mydS XaYY6edJO9QW60OF79l IQuf7C3sTR3M7CzZFWe lzhvspkowWP1HZLkLSU ufT51Pv8yiDdyEl0aMR SuGHF1ALRzrAZfW4Wiy M8bBfGbZDWfZTEiM5Hz kCZoZJbsR524ZQfmGjD 4FKCumoAiN9RaIPNdxA hbEcN2y7K9Ot8SUU79K P43MC48aQRep5R7mQU3 W7PuHLJurkszwsjqhDF 6LXMtXEIzwE42Fe6dsM uvUo3pFPLeNAQ4HHUmv VIlE4JumS1yEgRiIPFy IEKoN8HfjEThQUopA66 9XLqiYzO8CYLjwoEyU9 WcYIRooCirBaP0u0N1V q5NEm61YA91LX30bQRv q9D3dWV6X0AyEIWcytf tjcqabYZ5HJVsDLLxaP 48Yi4xrZsrBd9xDVJfC SG5NNFyyINlA7LdwK2m CoOmTHCmPYVqM7TriWV zOYjnG411BNfxWqK3BC WzvyZcM6HxQWFugNauC wX2l5D2Vf9LUHkrsjl3 Q1EpGocjqBP+IS82MFX zMQ83kTJpcPOdr3ddmH i2BnOuCCCnMBJ1hNuqG Mgec5BtQRMxS46ubJZc c2U (more content not included)... [facility] ED Clinical Summaryon 11-07- 2023 ED Clinical Summary [facility] ? Urgent Care [address] [place] [address] Clinical Summary PERSON INFORMATION Name: DION ANDRES Age: 47 Years Sex: MALE : 1975 MRN: Acct#: Visit Reason: UC - Laceration; LACERATION ON LEFT HAND Arrival: 07/26/2023 15:38:23 Discharge: 07/26/2023 17:27:00 LOS: 000 01:49 Check In: 07/26/2023 15:38:23 Checkout: 07/26/2023 17:27:00 Address: [address] [place] [address] PCP: MILAN NAILS DO PROVIDER INFORMATION Provider [...] With: Address: When: MILAN NAILS DO [address] [place], [place] [id number] Within 3 to 5 days Comments: Diagnosis [...] wound to hand Patient Understands: Yes - Patient/family/direct care worker verbalizes understanding of instructions given Comment: Normal [facility] ED Patient Summaryon 023 ED Patient Summary [facility] ? Urgent Care [address] [place] [address] PATIENT DISCHARGE INSTRUCTIONS Patient Information Name: DION ANDRES Age: 47 Years Date of : 1975 Reason For Visit: UC - Laceration; LACERATION ON LEFT HAND Arrival Time: 07/26/2023 15:38:23 Primary Care Physician: MILAN NAILS DO Attending Physician: Rashad Bowman Comment: Patient Education With: Address: When: [place] [address] [place] [id number] Within 3 to 5 days Comments: Diagnosis [...] and water are not available, use hand scrap sawyer. ? Change your dressing at least once [...] at home: Medicines ? Take or apply gazd-qwn-yghfyne and prescription medicines only as told by [...] is impor (more content not included)... Normal [facility] Recordon 023 Urgent Care Record [facility] ? Urgent Care [address] [place] [address] PATIENT DISCHARGE INSTRUCTIONS Patient Information Name: DION ANDRES Age: 47 Years Date of : 1975 [facility]: [id number] Reason For Visit: UC - Laceration; LACERATION ON LEFT HAND Arrival Time: 07/26/2023 15:38:23 Primary Care Physician: MILAN NAILS DO Attending Physician: Rashad Bowman Comment: Visit Diagnosis: Diagnoses This Visit Puncture wound to hand (S61.439A) UC - Laceration ([id number]) If you received any narcotics, sedation, or [...] documents With: Address: When: MILAN NAILS DO [address] [place] [address] Within 3 to 5 days Comments: Diagnosis [...] and treatment you received today in the [facility] were for an urgent problem and are not intended as complete care. It is important for you to follow up with a doctor, nurse practitioner, or physician?s geriatric assistant for ongoing care. If your symptoms [...] so we can reach you if necessary. [facility] has provided you with a complete list of medications post discharge. Please inform your cardiac care unit nurse/provider of your visit and for further instruction on these medications. Any specific questions regarding your chronic medications and dosages should be discussed with your primary care physician(s) and/or pharmacist. New Medications [facility], [address] [place] [id number], [phone] amoxicillin-clavula ld (amoxicillin-clavul anate 875 mg-125 mg [...] delayed release capsul (more content not included)... Normal [facility] XR Hand Complete Lefton 11-0 [...] DO 07/26/23 4:50 pm Technologist: Joseph STEPHENS [facility] Outside Recordson 06-07-2023 Outside Records [id number] 825#1.00OTGTIFF [facility] Patient Handouton 05-12-2023 Patient Handout [id number] [facility] [id number] 25#1.00[facility] LUMBAR SPINE 6 OR MORE Son 01-14-2022 LUMBAR SPINE 6 OR MORE S [facility] Department of Radiology [address] [place] [id number] Patient Name: DION ANDRES : 1975 [...] , , Ordering Provider - Sherice LOPEZ CNP , Exam: LUMBAR SPINE 6 OR MORE [...] radiographically. Electronically signed: Rashad Adler. Transcribed by: [email or web address], User Resident: Electronically Signed by: RASHAD ADLER @ 01/15/2022 11:40 AM Normal [facility] Comment on above: Order Comment: , ap, lat, flex, ex, obliques, r/o instability or pars defect , Views (X-RAY, LUMBAR SPINE): AP, Lateral, L5-S1 Spot, Obliques, Flexion, Extension , ap, lat, flex, ex, obliques, r/o instability or pars defect , Views (X-RAY, LUMBAR SPINE): AP, Lateral, L5-S1 Spot, Obliques, Flexion, Extension , , , Ordering Provider - Sherice LOPEZ PLUG MAKER , Vital Signs Date Time Vital Sign Value Performing Clinician Facility 09-23-2023 10:05-0500 Body height Abbey Robin Other [facility] Other 09-23-2023 10:05-0500 Body mass index (BMI) [Ratio] 44.21 kg/m2 Abbey Robin Other [facility] Other 09-23-2023 10:05-0500 Body temperature 98.6 [degF] Abbey Robin Other [facility] Other 09-23-2023 10:05-0500 Body weight 135.81 kg Abbey Robin Other [facility] Other 09-23-2023 10:05-0500 Diastolic blood pressure 82 mm[Hg] Abbey Robin Other [facility] Other 09-23-2023 10:05-0500 Respiratory rate 18 /min Abbey Robin Other [facility] Other 09-23-2023 10:05-0500 SaO2% (BldA) [Mass fraction] 95 % Abbey Robin Other [facility] Other 09-23-2023 10:05-0500 Systolic blood pressure 152 mm[Hg] Abbey Nietomond Other [facility] Other 04-15-2023 10:30-0400 Body height Marisol Zelaya Other [facility] Other 04-15-2023 10:30-0400 Body mass index (BMI) [Ratio] 45.33 kg/m2 Marisol Zelaya Other [facility] Other 04-15-2023 10:30-0400 Body temperature 97.6 [degF] Marisol Zelaya Other [facility] Other 04-15-2023 10:30-0400 Body weight 139.26 kg Marisol Zelaya Other [facility] Other 04-15-2023 10:30-0400 Diastolic blood pressure 80 mm[Hg] Marisol Zelaya Other [facility] Other 04-15-2023 10:30-0400 Respiratory rate 18 /min Marisol Zelaya Other [facility] Other 04-15-2023 10:30-0400 SaO2% (BldA) [Mass fraction] 98 % Marisol Zelaya Other [facility] Other 04-15-2023 10:30-0400 Systolic blood pressure 125 mm[Hg] Marisol Zelaya Other [facility] Other Encounters Encounter Date Encounter Type Care Provider Facility Start: 04-18-2024 End: 04-18-2024 ambulatory MILAN P HOUSE Facility:[facility]by Start: 04-18-2024 End: 04-18-2024 ambulatory COMFORT LOWE Not Available Start: 04-09-2024 End: 04-09-2024 ambulatory MILAN P HOUSE Facility:[facility] Start: 02-22-2024 End: 02-22-2024 ambulatory MILAN P HOUSE Facility:[facility] Start: 01-23-2024 End: 01-23-2024 ambulatory MILAN P HOUSE Facility:[facility] Start: 01-16-2024 End: 01-16-2024 ambulatory MILAN P HOUSE Facility:[facility] Start: 01-10-2024 End: 01-10-2024 ambulatory MILAN P HOUSE Facility:[facility] Start: 11-24-2023 End: 11-24-2023 ambulatory MILAN P HOUSE Facility:[facility] Start: 09-23-2023 End: 09-23-2023 ambulatory Abbey Robin Other [employer] [facility] [employer] Other Start: 09-23-2023 Office outpatient visit 15 minutes Abbey Robin [facility] Start: 08-24-2023 End: 08-24-2023 ambulatory MILAN P HOUSE Facility:[facility] Start: 08-24-2023 End: 08-24-2023 ambulatory MILAN P HOUSE Facility:[facility] Start: 08-15-2023 End: 08-15-2023 ambulatory MILAN P HOUSE Facility:[facility] Start: 07-26-2023 End: 07-26-2023 ambulatory MILAN P HOUSE Facility:[facility] Start: 05-24-2023 End: 05-24-2023 ambulatory MILAN P HOUSE Facility:[facility] Start: 05-10-2023 End: 05-10-2023 ambulatory Kiel Polk MD Facility:[facility] Start: 04-15-2023 End: 04-15-2023 ambulatory Marisol Zelaya Other [facility] Other Start: 04-15-2023 Office outpatient ne w [...] LU Facility :[id number] Start: 03-08-2018 Ambulatory DALLAS JAROD Facility :1532 Payers Date Payer Category Payer Medicare [id number] 2.1 [id number] 1975 Unknown [id number] 2.16.84 0.1.572306.3.579.2.593 1975 Unknown [id number] 2.16.84 0.1.468590.3.579.2.593 1975 Unknown [id number] 2.16.84 0.1.716457.3.579.2.593 1975 Unknown [id number] 2.16.84 0.1.667501.3.579.2.593 1975 Unknown [id number] 2.16.84 0.1.052941.3.579.2.593 1975 Unknown [id number] 2.16.84 0.1.955981.3.579.2.593 1975 Unknown [id number] 2.16.84 0.1.969436.3.579.2.593 1975 Unknown [id number] 2.16.84 0.1.389788.3.579.2.593 1974 Unknown [id number] 2.16.84 0.1.137977.3.579.2.593 1974 Unknown [id number] 2.16.84 0.1.089725.3.579.2.593 1975 Unknown [id number] 2.16.84 0.1.098079.3.579.2.593 1975 Unknown [id number] 2.16.84 0.1.267549.3.579.2.593 1974 Unknown [id number] 2.16.84 0.1.577313.3.579.2.593 1974 Unknown [id number] 2.16.84 0.1.865763.3.579.2.1259 1975 Unknown [id number] 2.16.8 40.1.123081.3.579.2. 1975 Unknown [id number] 2.16.8 40.1.585658.3.579.2. 1974 Unknown [id number] 2.16.8 40.1.194921.3.579.2. 1974 Unknown [id number] 2.16.8 40.1.488871.3.579.2.8 1974 Unknown [id number] 2.16.8 40.1.184152.3.579.2. 1974 Unknown [id number] 2.16.8 40.1.490615.3.579.2.71 1975 Unknown [id number] 2.16.8 40.1.958291.3.579.2. 1975 Unknown [id number] 2.16.8 40.1.471357.3.579.2. 1975 Unknown [id number] 2.16.8 40.1.636273.3.579.2.718 1960 Medicare [id number] Unknown [id number] Social History Date Type Detail Facility Unknown if ever smoked [facility] Other Sex Assigned At Sex Assigned At Bir th [facility] Other Clinical Notes 04-15-2022 to 02-22-2024 Note Date & Type Note Facility 02-22-2024 Note Entered by DYLAN NAILS DO on February 22, 2024 11:51:43 EDT From: MILAN NAILS DO To: [facility] Sent: 02/22/2024 11:51:43 EDT Subject: Medication [...] 5 Substitutions Allowed Route To Pharmacy - [facility] Approved SUMAtriptan (sumatriptan 100 mg tablet) TAKE 1 TABLET BY MOUTH DAILY Qty: 12 EA Days Supply: 12 Refills: 2 Substitutions Allowed Route To Pharmacy - [facility] Approved with modifications: propranolol (propranolol ER 80 mg capsule,24 hr,extended release) TAKE 1 CAPSULE BY MOUTH DAILY Qty: 30 cap(s) Days Supply: 30 Refills: 5 Substitutions Allowed Route To Pharmacy - [facility] Patient matched by MILAN NAILS DO on 02/22/2024 11:50:58 EDT From: [facility] To: MILAN NAILS DO Sent: February [...] Refills: 2 Substitutions Allowed Notes from Pharmacy: [facility] 01-23-2024 Note Entered by DYLAN NAILS DO on January 23, 2024 13:46:16 EDT From: MILAN NAILS DO To: [facility] Sent: 01/23/2024 13:46:16 EDT Subject: Medication [...] 11 Substitutions Allowed Route To Pharmacy - [facility] Patient matched by MILAN NAILS DO on 01/23/2024 13:45:54 EDT From: [facility] To: MILAN NAILS DO Sent: January [...] Refills: 11 Substitutions Allowed Notes from Pharmacy: [facility] 01-16-2024 Note Entered by DYLAN NAILS DO on January 16, 2024 14:24:31 EDT From: MILAN NAILS DO To: [facility] Sent: 01/16/2024 14:24:31 EDT Subject: Medication Management Documented Complete:omeprazole (omeprazole 20 mg oral delayed release capsule) Signed by MILAN NAILS DO 01/16/2024 14:24:00 EDT Approved with modifications: omeprazole (omeprazole 20 mg capsule,delayed release) TAKE 1 CAPSULE BY MOUTH DAILY Qty: 30 cap(s) Days Supply: 30 Refills: 11 Substitutions Allowed Route To Pharmacy - [facility] Patient matched by MILAN NAILS DO on 01/16/2024 14:24:11 EDT From: [facility] To: MILAN NAILS DO Sent: January [...] Refills: 11 Substitutions Allowed Notes from Pharmacy: [facility] 11-07-2023 Note Entered by DYLAN NAILS DO on November 07, 2023 07:53:45 EST From: MILAN NAILS DO To: [facility] Sent: 11/07/2023 07:53:45 EST Subject: Medication [...] 5 Substitutions Allowed Route To Pharmacy - [facility] Approved with modifications: lisinopril (lisinopril 20 mg tablet) TAKE 1 TABLET BY MOUTH DAILY Qty: 90 tab(s) Days Supply: 90 Refills: 5 Substitutions Allowed Route To Pharmacy - [facility] From: [facility] To: MILAN NAILS DO Sent: November 06, 2023 9:32:22 AM BACK SEWER Subject: Medication Management Due: November 07, 2023 12:07:40 AM BACK SEWER On Hold Pending Signature Drug: fexofenadine (Leigh [...] Refills: 5 Substitutions Allowed Notes from Pharmacy: [facility] 09-23-2023 Evaluation note Encounter Date [...] 3 days Sep, Bronchitis (ICD-10 - J40) [facility] Other 11-07-2023 NotePatient Education Materials Follows: Sutured [...] and water are not available, use hand scrap sawyer. ? Change your dressing at least once [...] at home: Medicines ? Take or apply epwr-eid-oavucnh and prescription medicines only as told by [...] by your health care provider. (morecontent not included)...[id number] Note Entered by MILAN NAILS DO on June 28, 2023 14:22:45 EDT From: MILAN NAILS DO To: [facility] Sent: 06/28/2023 14:22:45 EDT Subject: Medication Management Submitted: Complete:lisinopril (lisinopril 20 mg oral tablet) Signed by MILAN NAILS DO 06/28/2023 14:22:00 EDT Approved lisinopril (lisinopril 20 mg tablet) TAKE 1 TABLET BY MOUTH DAILY Qty: 90 tab(s) Days Supply: 90 Refills: 0 Substitutions Allowed Route To Pharmacy - [facility] From: [facility] To: MILAN NAILS DO Sent: June [...] Refills: 0 Substitutions Allowed [id number] Note Entered by MILAN NAILS DO on May 24, 2023 07:28:08 EDT From: MILAN NAILS DO To: [facility] Sent: 05/24/2023 07:28:08 EDT Subject: Medication Management Documented Complete:lisinopril (lisinopril 20 mg oral tablet) Signed by MILAN NAILS DO 05/24/2023 07:28:00 EDT Approved lisinopril (lisinopril 20 mg tablet) TAKE 1 TABLET BY MOUTH EVERY DAY Qty: 7 tab(s) Days Supply: 7 Refills: 0 Substitutions Allowed Route To Pharmacy - [facility] Patient matched by MILAN NAILS DO on 05/24/2023 07:27:02 EDT From: [facility] To: MILAN NAILS DO Sent: May [...] Refills: 0 Substitutions Allowed [id number] Evaluation note* Encounter Date Diagnosis Assessment Notes [...] is not contagious from itself or drainage. [facility] Other 05-30-2023 NoteCONSULTATION CONSULTATION DATE: 02/15/2023 TO: [...] the lower extremities. MEDICATION: Current medication includes Constable 5 mg t.i.d. p.r.n. Patient reports it [...] our patients to inform us about any ktqp-dsb-njadoeh medications or herbal remedies/nutritional supplements/alternative remedies. 2. [...] treatment options with their primary care provider.[id number] Note CONSULTATION CONSULTATION DATE: 01/06/2023 TO: Dr. [...] our patients to inform us about any wryt-tud-wixpksi medications or herbal remedies/nutritional supplements/alternative remedies. 2. [...] treatment options with their primary care provider.[facility] [id number] Note CONSULTATION PROCEDURE DATE: 10/06/2022 PREOPERATIVE DIAGNOSIS: [...] will be followed up in the office.[facility] [id number] NoteCONSULTATION CONSULTATION DATE: 08/26/2022 HISTORY OF PRESENT [...] his muscle relaxer. Our clinic prescribes his Constable 5/325 b.i.d. and diclofenac 75 mg b.i.d. [...] normally does. All questions were answered today.[facility] [id number] NoteCONSULTATION CONSULTATION DATE: 07/22/2022 HISTORY OF PRESENT [...] He current does see Dr. Galeas at [facility] as well. Activities that aggravate his pain are pulling, sitting, walking, lying down and bending. He will alternate heat and ice which he feels does not make a significant difference. Medications include trazodone 50 mg q.h.s., tizanidine 4 mg b.i.d., Lyrica 50 mg t.i.d., diclofenac 75 mg b.i.d. and Constable 5/325 b.i.d. He does attend pool therapy at the [facility] 2-3 times a week, which he feels [...] be followed up in the clinic thereafter.[facility] 04-22-2022 NoteCONSULTATION PROCEDURE DATE: 04/22/2022 PRE AND [...] will be followed up in the office.[facility] [id number] NoteCONSULTATION CONSULTATION DATE: 04/15/2022 This is a [...] mg b.i.d., Lyrica 50 mg b.i.d. and Constable 5/325 b.i.d. He is complaining of trouble [...] is gained for his trigger point injections.[facility] general Narrative - Reported* Type Description Date Medical History HTN (hypertension) Medical History GERD (gastroesophageal reflux di sease) Medical History Chronic pain Medical History Anxiety Surgical History tonsillectomy and adenoidectomy Surgical History ablasion [facility] Other History general Narrative - Reported* Type Description Date Medical History HTN (hypertension) Medical History GERD (gastroesophageal reflux di sease) Medical History Chronic pain Medical History Anxiety Surgical History tonsillectomy and adenoidectomy Surgical History ablasion Surgical History nerve block Surgical History epidural [facility] Other Summary Purpose Family History No Family [...] content) DATE CREATED AUTHOR 03/09/2018 [facility] DATE CREATED AUTHOR AUTHOR'S ORGANIZ ATION 01/19/2022 [facility] DATE CREATED AUTHOR AUTHOR'S ORGANIZ ATION 02/25/2023 [facility] pital DATE CREATED AUTHOR AUTHOR'S ORGANIZ ATION 04/21/2024 [facility] EPIC DATE CREATED AUTHOR AUTHOR'S ORGANIZ ATION 04/26/2024 [facility] REASON FOR VISIT (unrecogniz ed section [...] BE BASED ON THE PRIMARY CLINICAL RECORDS. [employer] provides no warranty or guarantee of the accuracy or completeness of information in this document.
--- NOTE | 2024-05-03 09:24 | PM.CN ---
Consult Note: HPI Data of Consult Patient: known to practice within the last 3 years Requesting Physician: Gustavo Carrillo MD Primary Care Provider: GER[place] NAILS Consult Narrative Reason for consult: f/u Narrative: Riccardo Hale a pleasant 48 year old male presents for evaluation and management of chronic back pain with radiculopathy. Today rating pain 6/10 bilateral low back radiating to bilateral thighs and lower leg, burning tingling sharp and intermittent numbness and pain of bilateral hands RUE. Pain increases to 10/10. Patients symptoms worse with sitting or standing too long, leaning forward decreases pain. Continues to find benefit from medication regimen without side effects. Patient has failed to benefit from greater than 6 weeks PT/provider guided HEP. Recent lumbar MRI as noted below. Pain most significant in left low back radiating into left leg and right foot. Patient noting mild relief from recent L5/S1 KEMAR. Patient has an upcoming EMG of BUE and BLE. cc:: CC: Gustavo Carrillo MD Review of Systems ROS Status of ROS 10 or more systems reviewed and unremarkable except as noted in history and below Musculoskeletal Reports: back pain and extremity pain PFSH PFS Medical History Osteoarthritis ?M19.90 - Unspecified osteoarthritis, unspecified site (ICD-10) Numbness and tingling ?R20.0 - Anesthesia of skin (ICD-10) ?R20.2 - Paresthesia of skin (ICD-10) Obesity ?E66.9 - Obesity, unspecified (ICD-10) Acid reflux ?K21.9 - Gastro-esophageal reflux disease without esophagitis (ICD-10) Former smoker ?Z87.891 - Personal history of nicotine dependence (ICD-10) Sleep apnea ?G47.30 - Sleep apnea, unspecified (ICD-10) High cholesterol ?E78.00 - Pure hypercholesterolemia, unspecified (ICD-10) Hypertension ?I10 - Essential (primary) hypertension (ICD-10) Surgical History History of tonsillectomy and adenoidectomy ?Z90.89 - Acquired absence of other organs (ICD-10) Meds Home Medications and Allergies Home Medications ?Medication ?Instructions ?Recorded ?Confirmed ?Type albuterol sulfate 90 mcg/actuation inhalation Q4H PRN shortness of 03/10/23 History aerosol inhaler breath or wheezing duloxetine 30 mg capsule,delayed 30 mg PO QDAY 03/10/23 04/24/24 History release duloxetine 60 mg capsule,delayed 60 mg PO QDAY 03/10/23 04/24/24 History release ipratropium 0.5 mg-albuterol 3 mg 3 ml inhalation TID 03/10/23 04/24/24 History (2.5 mg base)/3 mL nebulization soln lisinopril 20 mg tablet 20 mg PO QDAY 03/10/23 04/24/24 History omeprazole 20 mg capsule,delayed 20 mg PO QDAY 03/10/23 04/24/24 History release trazodone 50 mg tablet 50 mg PO .hs PRN sleep 03/10/23 04/24/24 History diclofenac sodium 75 mg 75 mg PO BID PRN pain #60 tabs 07/27/23 04/24/24 Rx tablet,delayed release pregabalin 200 mg capsule (Lyrica) 200 mg PO TID 03/01/24 04/24/24 History propranolol 80 mg capsule,24 80 mg PO DAILY 03/01/24 04/24/24 History hr,extended release hydrocodone 5 mg-acetaminophen 325 1 tab PO TID PRN pain #75 tabs 04/04/24 04/24/24 Rx mg tablet amitriptyline 25 mg tablet 25 mg PO DAILY 04/24/24 04/24/24 History baclofen 10 mg tablet 10 mg PO DAILY 04/24/24 04/24/24 History sumatriptan succinate 100 mg tablet 100 mg PO PRN migraine headache 04/24/24 History Allergies Allergy/AdvReac Type Severity Reaction Status Date / Time No Known Drug Allergies Allergy Verified 04/24/24 07:31 Exam Constitutional Documenting provider has reviewed patient's vital signs: yes Common normals: no apparent distress, oriented x3, healthy appearing, alert and well nourished General appearance: cooperative Orientation/consciousness: Yes awake, Yes oriented to person, Yes oriented to place and Yes oriented to time Other: uses cane HENMT Common normals: normocephalic, hearing grossly normal bilaterally and moist oral mucous membranes Head and scalp: normocephalic Eye Common normals: PERRL Pupil: PERRL Neck & C-Spine Common normals: full ROM General: normal visual inspection Cervical spine: pain with cervical ROM and cervical spine tenderness Other: negative sprulings strength 5/5 in BUE sensation intact/equal BUE Chest Common normals: inspection of chest normal Respiratory Common normals: normal respiratory effort, no retractions and no use of accessory muscles Effort & inspection: able to speak in complete sentences and symmetric chest movement Back & Pelvis Common normals: thoracic and lumbar spine normal to inspection Lumbar spine/lower back: normal to inspection, ROM limited, pain with ROM, paraspinal muscle tenderness, paraspinal muscle spasm, straight leg raise positive right and straight leg raise positive left Other: positive facet loading bilat positive jo-ann bilat Muscle strength 4/5 LLE, 5/5 in RLE decreased sensation to left L5/S1 Extremity Common normals: normal to inspection and full ROM Neuro Common normals: oriented x3, CN's II-XII intact bilaterally, moves all extremities, no focal motor deficits, no sensory deficits noted and deep tendon reflexes 2+ bilaterally Sensorium/orientation: alert Gait (neuro): antalgic and assistive device used cane Motor exam: strength 5/5 throughout and no movement abnormalities noted Psych Common normals: mental status grossly normal, thought process normal, cooperative, affect normal, speech normal and activity/motor behavior normal Speech: normal speech Thought process: normal thought process Results Additional Findings Additional findings: If on a controlled substance or opioids, I have checked an [place] report on this patient and there are no aberrancies noted in the prescribing history.??If on a controlled substance or opioid a drug screen was completed and reviewed within the last year, and if there has not been a drug screen completed we ordered one today to monitor higher risk, state monitored pain medication use. As part of providing excellent, safe, comprehensive care, the following was completed at our patient's visit: 1. A medication reconciliation and review to ensure accurate knowledge of current/active medications, including asking our patients to inform us about any [id number] medications or herbal remedies/nutritional supplements/alternative remedies. 2. A review to specifically ensure our patients have had annual screening for screening for depression, screening for tobacco use, and screening for unhealthy alcohol use. For concerning screenings had a discussion with the patient, provided patient education, and recommended follow-up with primary care provider when appropriate. If patient noted with a risk of falling, they received education on strength, gait, and balance training to prevent future risk of falling. Assessment and Plan Assessment and Plan (1) Lumbar radiculopathy: (2) Lumbar spondylosis: (3) Chronic prescription opiate use: Assessment and Plan: I feel these medications are improving the patient's quality of life and allow them to tolerate activities of daily living as well as participate in recreational activity.? The patient does not report intolerable side effects. The patient is NOT opioid naive and non-pharmacologic and non-opioid treatment has failed to significantly relieve the patient's pain and improve functionality. The patient has a diagnosis that is related to a somatic or visceral pain etiology. ? ?? I reviewed with the patient the potential risks and side effects with the use of? opioid medications including but not limited to respiratory depression,? sedation, and even . I verified the patient has access to naloxone should? these effects occur. I advised the patient to avoid the use of any other? sedation substances including alcohol, THC, and benzodiazepines while? taking opioid medications due to the risk of compounding side effects and? detrimental outcomes. I reviewed the [employer], pain treatment agreement, urine? drug screen, and opioid start talking forms. The patient was advised to let? their family know they had Naloxone in case they would need to administer? the medication.? ?? A drug screen was completed within the last year, and no aberrancies were noted regarding their use of controlled substances. The patient understands they are subject to the terms and conditions of the pain contract that they have signed. ? ?? I have checked an [place] report on this patient today and there are no aberrancies noted in the prescribing history.? (4) Cervical radiculopathy: Plan cervical MRI reviewed with pt, defer injection therapy at this time. physical exam improved from prior continue f/u with neurology, upcoming BUE and BLE emg continue current medications, tolerating well without side effects defer spinal cord stimulator trial at this time, patient continuing to research. all questions answered today f/u 1 month, sooner if needed
== END 2024-05-03 08:42 | disposition home or self-care (01) ==
LOC: PM 08:45
PROVIDERS: PCP Family Medicine; Visit Provider Anesthesiology Pain Medicine
DX: M54.16 Radiculopathy, lumbar region (principal); M47.816 Spondylosis without myelopathy or radiculopathy, lumbar region; Z79.891 Long term (current) use of opiate analgesic; M54.12 Radiculopathy, cervical region
CPT/HCPCS: G0463

== ENCOUNTER 2024-06-07 09:37 | Outpatient (OUT) | payer MEDICARE, SELFPAY ==
--- OUTSIDE RECORDS SUMMARY | 2024-06-07 09:41 | XMS_ITS | CCD ---
Author Organization [facility] Care Team Providers Care General Accounting Manager Name Role Phone KIRNUS, DALLAS Unavailable Unavailable KIRNUS, DALLAS Unavailable Unavailable CONWAY ., KALI Consulting Unavailable LAKSHMIPATHY ., LENCHOATH Admitting Tiffany vailable HOUSE, DR SOLO Primary Care Unavailable LAKSHMIPATHY ., NARENDOMEGAATH Attending Tiffany vailable LAKSHMIPATHY ., NARENDOMEGAATH Consulting Tiffany vailable LAKSHMIPATHY ., NARENDOMEGAATH Admitting Tiffany vailable LAKSHMIPATHY ., NARAAYUSHATH Consulting Tiffany vailable HOUSE, DR SOLO Primary Care Unavailable LAKSHMIPATHY ., NARDAVID Attending Tiffany vailable GIL ., DR LUCY Maurice Consulting Unavailable GIL ., DR LUCY Maurice Attending Unavailable GIL ., DR LUCY Maurice Admitting Unavailable HOY ., DR GONZALEZ Primary Care Unavailable GIL ., DR LUCY Maurice Attending Unavailable GIL ., DR LUCY Maurice Admitting Unavailable HOUSE, DR SOLO Primary Care Unavailable LAKSHMIPATHY ., NARAAYUSHATH Admitting Tiffany vailable HALKER ., NATALIYA Consulting Unavailable HOUSE, DR SOLO Primary Care Unavailable LAKSHMIPATHY ., MESSI Attending Tiffany vailable GIL ., DR LUCY Maurcie Attending Unavailable GIL ., DR LUCY Maurice [...] LUCY Maurice Admitting Unavailable HOUSE, DR MILAN Wilson Unavailable TATY ., DR GONZALEZ Primary [...] CONWAY ., KALI Consulting Unavailable LAKSHMIPATHY ., MESSI Attending Tiffany vailable LAKSHMIPATHY ., MESSI Admitting Tiffany vailable LAKSHMIPATHY ., MESSI Consulting Tiffany vailable HOUSE, DR SOLO Primary Care Unavailable Marisol Zelaya Unavailable Abbey Rboin Unavailable HOUSE, MILAN Medina Primary Care Unavailable HOUSE, MILAN P Primary Care Unavailable HOUSE, DO MILAN Medina Attending Unavailable Kiel Polk MD Attending Unavailable HOUSE, [...] Unavailable HOUSE, DO MILAN P Attending Unavailable Rashad Bowman Attending Unavaila ble Rashad Bowman Admitting Unavaila ble HOUSE, MILAN P Primary Care Unavailable HOUSE, MILAN P Primary Care Unavailable HOUSE, MILAN P Primary Care Unavailable HOUSE, MILAN P Primary Care Unavailable COMFORT JIMENEZ Attending Unavailable MAURIZIO PATRICK Attending Unavailable Medications Current Medications Medication Drug Class(es) Dates Sig (Normalized) Sig (Original) Acetaminophen / HYDROcodone (2 sources) Opioid Agonist take 1 tablet by mouth every six hours as needed [place] 5-325 MG 1 tablet as needed Orally every 6 hrs Active [id number] actuat albuterol 0.09 mg/actuat metered dose [...] 30 Days Active take 1 capsule by [facility] every twenty-four hours DULoxetine HCl 60 [...] Value Interpretation Reference Range Facility [facility] 05-03-2024 Outside Records [id number] 38#1.00[facility] Outside [facility] 04-24-2024 Outside Records [id number] 62#1.00[facility] Rad - Other Radiology Report on 04-24-2024 Rad - Other Radiology Report [id number] 49#1.00[facility] Patient Letteron 04-11-2024 Patient Letter [id number] 36#1.00[facility] 04-05-2024 Outside Records [id number] 3#1.00[facility] Outside Records [id number] 9#1.00[facility] Rad - Other Radiology Report on 04-02-2024 Rad - Other Radiology Report [id number] 44#1.00[facility] Outside [facility] 03-02-2024 Outside Records [id number] #1.00[facility] 12-08-2023 Outside Records [id number] 49#1.00[facility] 09-28-2023 Outside Records [id number] [address] [place] [address] Coding Summaryon 08-25-2023 Coding Summary HTMLBase 64 RstmzzzsXPm0rZx+PGh lYWQ+QO8ZXVQjX15wbB JadW3fB9QWJTtTDffzE PIRZAcBDvBzmvMkLT1v aXNjZXJu IC8+HN1iSBBbWruhrMD ta4B3xKW1J27zud7dYD dssHK8PVSkVjBnmojtt 2mmhYz4IBqtVxyxIbGk QADkqN92HZO3sA01Af0 3rIVuiWBvw8hwiTx3Dk CoHXGcYNO9iGgjKNvdm 9PaLGYqL35qdHSxc8K9 IGNvbGxhcHNlOyBlbXB 4bI3cFWlejzmzn3bjzf scIyr3ww80rDVft8F1t TV8Y8HrqjZ3YUIdjKEx QclozWJNcU4oqfnbh7x leayyLhRbCFJjQZc4BC i4IUDqkNmhCsIpMK74F LJ1BCRcdqMlK7KcKBRo fEwfAyP0y1H9Ti5XM7U OZjqrW0VBMMATMMwwdZ Q+IR69oy15M3DvAeihZ ik1MZRrWIX1uDX6uK4p GWFlMKtzj9M3kJS4N8C nfqDuzj0lx4pqOLLvUO wfT23isBBkf5G3PYZel UZ5TRHhaGewQvUrjU92 Oyc+HAYyuNnzx5KuPtf rg6uiu7kiaQc5YrszYX AgpfJtyKooGIA1o8GlN w8nGJUrzWG3lXI7zT7n WqDdJvO8JFqyA239JoC tbUFeHimhN56vT3YsiI A+TBAcUvm8GWGczGkaH O7sI9HmSQTnsfyesVTb oNofJW5lHDQptabaESR fvE4pSDUcV1y1JjGgZp L6KNsyK1SkWZTuttqzN c86xH9lUzBxClF5CNuy W9BlsxF2VXYjwNVwRKp bSJM0W16wo3T7SDAmWN PfDSI6tAS0fK1anNlik jogbGVmdDsgdmVydGlj XRezHUwvQ691CSLywLj nPkNvZGluZyBEYXRlOi AgMTIvMDcvMjAyMzwvd GQ+AGVqBUB9tPtgJLAl zNJiREkqFw7kiXlmdPu rRO9hERBxpwwuZRQskH 0rIEDpwPAglAidVH9kT YPbzipbu635QdYcCKB6 HPFnfEArS2ZwsG6vIsK sGQIvOKPlZ1PfpWNdHT epW874VWugIrD1ZOBnb xWnE2YzONVqfPeuPeB1 n1L4Xw3Zb3MwfcflU6P quBJgIsXbShwdFBh3N8 RkPjwvdHI+VB53ISXhE K32FFh8ZXE3nNxgGZob DGRkA4MtbA1hDkVlRFN kZGRkOyc+PHRhYmxlIH dpZHRoPScxMDAlJyBzd NdbPI6uBy5iXNPoOKOb nXdkwTPxQpAvi3tvMPT kCFxtNO5moOhtQ5SgwV F9ZUIks9c5Ro01Y39pZ 3JvdXA+INXmcJM6nIT8 cH0hLaJdSzI2DJbeC77 5JvLbvTZjImksl9ofr9 jxdDu4SoQ2DLWhbhSwf DwzLJG4x2SqLz33G21g IHdpZHRoPSIxNSUiIHZ jsEhual4ifK3xOi5+PG LynNL0rLE5jO6eSwKkH aO9YTrvA730EvGtdWAj Cmusy4jrg5wnjEs0XzD dQNXfoxGkvBhkSMT3w6 YaPn48Z5VwvShpe4CvD tc4kz76pSGri1W8gBX0 B8BmYKMmatndfOHonSu bQV5cPEFkpgewNXTbaJ 9hHGYzL1l9EsBxZyH0J WzyD0PubaN5GXNgwAJb BSVjmNHYrS6lqucjh3x swaowCcXpQSYhQOt2YJ k0CBSfxYijPgUfNJJ0J iK5DWD8bXLioT5vxKgw xggxxW4qLrp+KRO7hHP seUFVEW4bBxlbuSU+PH YrFPJ1dIxiESjwBKDrp D5aSADrJ4s6NyJtBhU7 UMvrK5OlotB2IFVkaJF aNDOjjRKHeP6skhqaz5 qnnprmSiIoVMIoPUw5J Pd5HTPdpKglLeDiLTI0 ElH4GDN0pRYveK4tnHm mtcksuD5nFlb+QmlydG osCED1JAx0X1UhEqi1W JFztYixIW8plQGaGHlw Ms8nbYmkxJklKG3rCKI vejcmt514GfAhb5eeKD LuqOAyZYbzTGM4M33sv 6I4GGNuAWXgUNY3mVJ6 pY0ewTwyonxpzDYxmIq gdmVydGljYWwtYWxpZ2 71IWWdgEfxQdPdFEq3Z 6NwNiw9KTOgwGtmBV5g xDLaRLclRn2vdQhieEa tYA6sSDTwmfobo975Dp Roj1neJMJkoRErFKfzF YT9G53hs6S6DJNmWFRg ANU7uCD8dW8diVytnjz gbGVmdDsgdmVydGljYW lqPZwlG467ULDtzGdfN hCnlCb3T6VrXxh6GRGh lMxaFW9raTYnRFmuAw0 zvHymhTzjQL8aUMQikh xfq610HxMzd1pcZWHcr RLaLFuvBCT3C74ym9B4 RMUgKSNrLTF8nLV4wU6 hbGlnbjogbGVmdDsgdm SxsFyyTIitJGfvG108T HRvcDsnPlBhdGllbnQg RUjeJGh1K9ArPgrgoDU +QR50BVCqWH86wHGqkT Lpf9xpxLz4StTdBNXfP BY1aXmwMGclc3UhVXXv I57neRXow3K8FTJqlMc yyKQoJnXzsNS4jG8jCL cpzuzmq3iclncyLasti 8ypdh43aH28G79jKAok ZHRoPSIzMCUiIHZhbGl bnh3tnD1tOi0+PGNvbC T8sCB0xJ3kZPNrYsY6H PxkX027VlHlaBEqOfyx u9ixu7clhIb1RpL2XKV gryZmlQmdUFL3c4BbKz 56G50yCXfhRWGdBJPkO XBeJFEnfZtnpo8icM7w Ii8+TBSnxUH6iZS9vA9 cYpElVbT0FQyzJ317Zb RisGCoTqtmV52uZ8Xwc XA+MBVtYrk0BFCxaSgl TM4zcBZfRTvtBu7nCXY 7XkNyQsFcYPzgZ8MiUJ RgumjxcekwrKP0VBIlC EFecD36Oo7hnTwrSOOi nBOWbR1lloxwb0wbfsn uLeXdMDAvEXh9MKr1SO OxrCesTpVgWJM9XiA5J AJ3nLAlyN8cpJjqhtuz wD1iC1OtREJkadriZr2 8iQ0qThNeEfM1OAgiUe c+H8XQYB8QFyvzC9QWF FLUBNHAG0OLCKugmBR+ CTPqGJA9sQykMOkaMIY ugA6yRZKiY4c1UdRiYw C5OHpeQ7EwKETwvzadQ v64dD0mLiZdLyD8JLmo B8NhpjF3GRRymRPkZRe wGQN9R67ax5O6IWHoDS JaHPH7eTF9uM7atAakd jogbGVmdDsgdmVydGlj VAyaENcrQ296QIMqbKh lUuOjYtExQbU3LhB9M4 DgNqn1NHBlhWquNS6oe JVsPGmiBa2eqTqmiHsa ZY1dHYQjcbxkEPInjZ4 qFDKqsIKfePyvEV7yUU Yayqjrl027UwGwHRB2Q BQagMCrK3HrfA1wYrMk WTGcVREuG3YxlEFtNJd uY843CQdzNkX5SZFbit BuT0ApTCYsdHhcTuU9t 6L6Ag17MLTCDQOaarag dGQ+URPyHLX7sOowDYr kYICtbF4zXXXhU6a9Qj MsBgJ4MErsG7CzPIQkt txrCb12gY9vUgTnQcV2 GJycJ5CnuhK4PRTpeXZ pLIycWYB8C49dc8D0YS TfAYLfDNB2nTW7yS9lk GlnbjogbGVmdDsgdmVy eKshVIokJPfjW715GXM ssOtqPp8EZEB9E1MgSb q1URRetHmeKR5maXXzV KtnCg8coSkbyUnxII5s WXFwquwcWFKpwC0jZVX bgCEtbPguMO3lPIKolr gby884XmJbBWQ2DRQao YVsF7ZfaK4iCiPdNEUr VRFnJ3OsvGNwJBfoV58 2FEocHmU4NVCpwoZkN7 NzVEWxyRvgZsH1n5L0H p9FALmtvLN+UI03wi99 I9QuUfpdIsb0BODfOSL 3vJF6dX7aKLAhSKake9 Z6bOM8Z4VsvyIejg2qu 5zwZLGnKBnnO75emCAp a6I0XSVyyCF4MPYdeEx mYkDicE87Kvo+PGNvbG sgv6AbWjjdc9xfk8sth Hf9ZcEfJMLjtxWztTss REB0r6JfTs20S93kVUj pZHRoPSIzMCUiIHZhbG latv7avU4hJo6+PGNvb ZI0fPJ2kQ6tSaQiEcP3 FKbyC438ZmYhkPOxTbd kp9vyr0lnsAw7SuQfDG HtkwPlyNvjRJM9c9ZzD c83Y3NdtUrne1AbDwg3 fp94rZPfn8N2hQL6H3V hZGRpbmctbGVmdDogMC 6bUEQsoaipNPHgsZ6pD YVyJ4y9YaItKxZ5SOid Q4IjfjW5QAPnqVLeNHC thUJWuC1wvinck3cbst lvGjNuDDXkMFf0BGy4Z BBjfXmzQnNcFTJ4YsO7 GOD4cVNeqQ6kbVwlcui peF2eNpa+TOu7o5xnlZ RlML3piRJ5BI57HZ64i XZyl5Q4kOJ2J5GyLUQk phkwueefkIS1HGGhTDJ szB27Bl7deWjqNr2dGL ZqXHS9IWFjfVRoA9Yrx A6dCzHfEREzSHBlY0Tw bXNhMHseI562NAmmJbW 7ABQrlgHkW3HjMVSawS xaTlA0e0V6Xq0SQD55S D01PS15tIRkp9I0aGS1 J1BlJBDfultgmueiiQW 9HNGnBYTuuL29Ef7nwE ypNn8fLVGuGDD4JWKlx FBjB9JdjB2jEmHuUFBi TERrG9ZjyTHrGFtpD48 5NVbdCdG1WQIdmkDeI9 ZrSSGvpMkbEiX4b0F9T d4LPe12LS27JC44eUEa v3Q2hSB3N0BgLJReadn tejbtcLJ3JTMuEUXjcQ 20Pt7ocXuhWi2uBIWpY IG2CHGseFGsD7VmsD1z NoDsPPLdXBNzN3VcwBZ iALoaM911WWojTqN4DO SvgtGnV9LpZJEntDjdI uJ0g5X0Ss0TWJdvehb6 H7LvVjcweBK+FK35GKC sYV14uDLpfMWll4xozQ s6VrToTXMfWLC0cYipU Dgex6PnCJXhO07aqIEf c2U (more content not included)... Normal [facility] .Auto Diff 08-24-2023 Auto [place] % 6 % Normal 09-30 [facility] Comment on above: Performed By: #### 7 177271, 56570530, [id number], 5987393, 07768881, [id number] ####[facility] (DEFAULT)[address] [place] [address] 53469 Baso Abs# 0.1 x10 Normal 0.0-0.2 [facility] Comment on above: Performed By: #### 7 727882, 58171352, 7551993733, 8133447, 12226178, [id number] ####[facility] (DEFAULT)[address] [place] [address] 47913 Basophils/100 WBC (Bld) 1.0 % Normal 0.2-2.0 [facility] Comment on above: Performed By: #### 7 975765, 55772421, 6709687576, 8638899, 72907952, [id number] ####[facility] (DEFAULT)[address] [place] [address] 77302 Eos Abs# 0.1 x10 Normal 0.0-0.4 [facility] Comment on above: Performed By: #### 7 283508, 39504806, 1106687393, 1358440, 68223603, 8364486908 ####[facility] (DEFAULT)[address] [place] [address] 46576 Eosinophils/100 WBC (Bld) 1.1 % Normal 0.9-4.0 [facility] Comment on above: Performed By: #### 7 244646, 25005040, 6548331829, 4607671, 43200471, [id number] ####[facility] (DEFAULT)[address] [place] [address] 58891 Lymph Abs# 2.1 x10 Normal 1.3-2.9 [facility] Comment on above: Performed By: #### 7 070677, 40351050, 9807359555, 0175103, 92751787, 0402306196 ####[facility] (DEFAULT)[address] [place] [address] Lymphocytes/100 WBC (Bld) 26 % Normal 14-48 [facility] Comment on above: Performed By: #### 7 325466, 96112266, 3833526169, 7917403, 51425549, 8238643613 ####[facility] (DEFAULT)[address] [place] [address] Auglaize Abs# 0.5 x10 Normal 0.0-0.8 [facility] Comment on above: Performed By: #### 7 722116, 43541215, 8751719493, 5313425, 06193446, 8157313512 ####[facility] (DEFAULT)[address] [place] [address] Neut Abs# 5.2 x10 Normal 1.5-9.2 [facility] Comment on above: Performed By: #### 7 415648, 26453613, 0796475534, 4316581, 46028758, 6212291895 ####[facility] (DEFAULT)[address] [place] [address] Neutrophils/100 WBC (Bld) 65 % Normal 44-88 [facility] Comment on above: Performed By: #### 7 235374, 04991128, 7997913575, 8032316, 09202293, 5142161802 ####[facility] (DEFAULT)[address] [place] [address] CBC w/ Auto Diffon 3 Erythrocyte distribution width (RBC) [Ratio] 13.7 % Normal 11.5-15.0 [facility] Comment on above: Performed By: #### 7 866294, 69401265, 2389200887, 3201438, 23258185, [id number] ####[facility] (DEFAULT)[address] [place] [address] Hematocrit (Bld) [Volume fraction] 45.6 % Normal 34.8-51.9 [facility] Comment on above: Performed By: #### 7 467626, 34084610, 4982694996, 2948057, 81195936, 2222560787 ####[facility] (DEFAULT)[address] [place] [address] Hemoglobin (Bld) [Mass/Vol] 15.2 g/dL Normal 11.8-17.7 [facility] Comment on above: Performed By: #### 7 818406, 44092064, 2223229722, 1287429, 27195471, 9684618961 ####[facility] (DEFAULT)[address] [place] [address] Man Diff? Auto Invalid Interpretation Code [facility] Comment on above: Performed By: #### 7 655290, 00782468, 8533778179, 0142712, 62118241, [id number] ####[facility] (DEFAULT)[address] [place] [address] 36909 MCH (RBC) [Entitic mass] 29 pg Normal 24-34 [facility] Comment on above: Performed By: #### 7 942444, 88239396, 4582953430, 9350499, 46851930, 5760259452 ####[facility] (DEFAULT)[address] [place] [address] 29246 MCHC (RBC) [Mass/Vol] 33 g/dL Normal 26-37 [facility] Comment on above: Performed By: #### 7 959841, 85363367, 6339422733, 0329603, 62066313, 7355732140 ####[facility] (DEFAULT)[address] [place] [address] 94862 MCV (RBC) [Entitic vol] 88 fL Normal 81-100 [facility] Comment on above: Performed By: #### 7 210822, 43479746, 8344034018, 9668107, 66111216, 6915274918 ####[facility] (DEFAULT)[address] [place] [address] 42285 Platelet 391 x10 Normal 138-427 [facility] Comment on above: Performed By: #### 7 403136, 53301907, 1269404314, 3847712, 02036627, 9798049564 ####[facility] (DEFAULT)[address] [place] [address] Platelet mean volume (Bld) [Entitic vol] 8.5 fL Normal 6.3-10.2 [facility] Comment on above: Performed By: #### 7 681776, 66205055, 9641202449, 1864512, 54676473, 6361012245 ####[facility] (DEFAULT)[address] [place] [address] RBC 5.19 x10 Normal 3.70-5.30 [facility] Comment on above: Performed By: #### 7 010685, 98773591, 8784983800, 6727786, 70433698, 6787770538 ####[facility] (DEFAULT)[address] [place] [address] WBC 8.0 x10 Normal 3.5-10.5 [facility] Comment on above: Performed By: #### 7 041834, 11856838, 7741956072, 5393057, 41515665, 1451161497 ####[facility] (DEFAULT)[address] [place] [address] Standardon 08-24-2023 eGFR Non AA >60 Invalid Interpretation Code [facility] Comment on above: Performed By: #### 7 314927, 19028586, 2393992765, 7518031, 39758446, [id number] ####[facility] (DEFAULT)[address] [place] [address] eGFR AA >60 Invalid Interpretation Code [facility] Comment on above: Performed By: #### 7 155148, 57502823, 2723796559, 9373125, 34257930, [id number] ####[facility] (DEFAULT)[address] [place] [address] Albumin [Mass/Vol] 4.4 g/dL Normal 3.5-5.0 [facility] Comment on above: Performed By: #### 7 569284, 35241058, 8378290777, 8265426, 36153704, 9873403995 ####[facility] (DEFAULT)[address] [place] [address] 04888 Alk Phos 60 IU/L Normal 32-91 [facility] Comment on above: Performed By: #### 7 942598, 59808892, 8686040169, 4881981, 69218891, 6683763494 ####[facility] (DEFAULT)[address] [place] [address] ALT [Catalytic activity/Vol] 52.0 U/L Normal 17.0-63.0 [facility] Comment on above: Performed By: #### 7 364515, 00266841, 8289524281, 3825025, 37853322, [id number] ####[facility] (DEFAULT)[address] [place] [address] AST [Catalytic activity/Vol] 32 U/L Normal 15-41 [facility] Comment on above: Performed By: #### 7 567934, 97555735, 8122163565, 7064440, 42269718, 3834768629 ####[facility] (DEFAULT)[address] [place] [address] Bili Total 0.9 mg/dL Normal 0.3-1.2 [facility] Comment on above: Performed By: #### 7 926630, 23146318, 1348520494, 3212563, 98412918, 3081652132 ####[facility] (DEFAULT)[address] [place] [address] 09871 Calcium [Mass/Vol] 9.4 mg/dL Normal 8.9-10.3 [facility] Comment on above: Performed By: #### 7 691315, 83835849, 4763582302, 4732899, 72097023, 7332843521 ####[facility] (DEFAULT)[address] [place] [address] Chloride [Moles/Vol] 109 mmol/L Normal 101-111 [facility] Comment on above: Performed By: #### 7 413025, 63676177, 1597252097, 1933807, 13128449, 3731828436 ####[facility] (DEFAULT)[address] [place] [address] 67109 CO2 [Moles/Vol] 25 mmol/L Normal 21-32 [facility] Comment on above: Performed By: #### 7 329476, 47826254, 0896942711, 4254550, 45273312, 1054514127 ####[facility] (DEFAULT)[address] [place] [address] 24901 Creatinine [Mass/Vol] 0.74 mg/dL Low 0.90-1.30 [facility] Comment on above: Performed By: #### 7 550514, 09512348, 2620932214, 0942796, 11345541, 2772702738 ####[facility] (DEFAULT)[address] [place] [address] 92779 Glucose [Mass/Vol] 105.0 mg/dL Normal 74.0-118.0 [facility] Comment on above: Performed By: #### 7 922258, 38997493, 8449028188, 8464351, 77200246, 9495077461 ####[facility] (DEFAULT)[address] [place] [address] 39409 Potassium [Moles/Vol] 4.0 mmol/L Normal 3.6-5.1 [facility] Comment on above: Performed By: #### 7 194317, 91780871, 4673270620, 6959643, 34866080, 3966779157 ####[facility] (DEFAULT)[address] [place] [address] 31456 Protein [Mass/Vol] 7.5 g/dL Normal 6.5-8.1 [facility] Comment on above: Performed By: #### 7 010685, 59319085, 7479951599, 4164368, 75359746, 1727921392 ####[facility] (DEFAULT)[address] [place] [address] 23747 Sodium [Moles/Vol] 140.0 mmol/L Normal 136.0-144.0 [facility] Comment on above: Performed By: #### 7 419335, 36630981, 3695420665, 5131005, 93721697, 5823915821 ####[facility] (DEFAULT)[address] [place] [address] 87869 Urea nitrogen [Mass/Vol] 10 mg/dL Normal 8-26 [facility] Comment on above: Performed By: #### 7 [id number], [id number], [id number], 0583631, 62564007, [id number] ####[facility] (DEFAULT)[address] [place] [address] 19189 Albumin/Globulin [Mass ratio] 1.4 {ratio} Normal 1.4-2.6 [facility] Comment on above: Performed By: #### 7 923263, 55129437, [id number], 6322259, 29327229, [id number] ####[facility] (DEFAULT)[address] [place] [address] 98789 Anion gap [Moles/Vol] 10.0 mmol/L Normal 5.0-19.0 [facility] Comment on above: Performed By: #### 7 591972, 11509046, 1196292955, 1285475, 71440545, [id number] ####[facility] (DEFAULT)[address] [place] [address] 34113 Globulin (S) [Mass/Vol] 3.1 g/dL Normal 1.5-4.3 [facility] Comment on above: Performed By: #### 7 320547, 90140151, [id number], 8054088, 77087639, [id number] ####[facility] (DEFAULT)[address] [place] [address] 27947 Osmolality 279 mOsm/L Invalid Interpretation Code [facility] Comment on above: Performed By: #### 7 527097, 02363022, [id number], 8487062, 63326147, [id number] ####[facility] (DEFAULT)[address] [place] [address] 25251 Urea nitrogen/Creatinin e [Mass ratio] 13.5 mg/mg Normal 4.6-16.2 [facility] Comment on above: Performed By: #### 7 712178, 44392617, [id number], 1911723, 36924236, [id number] ####[facility] (DEFAULT)[address] [place] [address] HgbA1c Standardon 08-24-2023 .Hb 16.6 Invalid Interpretation Code [facility] Comment on above: Performed By: #### 7 941766, 37445445, [id number], 9338979, 64041617, [id number] ####[facility] (DEFAULT)[address] [place] [address] .Hgb A1c 0.59 g/dL Invalid Interpretation Code [facility] Comment on above: Performed By: #### 7 436898, 28665852, [id number], 8469449, 53627456, [id number] ####[facility] (DEFAULT)[address] [place] [address] Glucose [Mass/Vol] 108 mg/dL Invalid Interpretation Code [facility] Comment on above: Performed By: #### 7 231994, 79208597, [id number], 9036047, 43953792, [id number] ####[facility] (DEFAULT)[address] [place] [address] HbA1c (Bld) [Mass fraction] 5.4 % Normal 4.6-6.2 [facility] Comment on above: Performed By: #### 7 725712, 00827930, [id number], 9152558, 74315799, [id number] ####[facility] (DEFAULT)[address] [place] [address] Reminder Messageson 08-24-20 Reminder Messages -- From: MILAN NAILS DO To: [facility] Clinical Pool ([facility]); Sent: 08/24/2023 12:33:59 EST ! Show up: 08/24/2023 12:33:59 EST Subject: Results Follow Up Actions: Call the patient with result(s) Due Date/Time: 08/25/2023 12:33:00 EST Reminder Comments: looks good Results: Date Result Name Value Ref Range 08/24/2023 10:17 Estimated Avg Glucose 108 mg/dL 08/24/2023 10:17 Hgb A1c % 5.4 % (4.6 - 6.2) Patient called and notified of results. Verbalized understanding. Normal [facility] Reminder Messages -- From: MILAN NAILS DO To: [facility] Clinical Pool ([facility]); Sent: 08/24/2023 12:24:35 EST ! Show up: [...] % (14 - 48) 08/24/2023 10:17 Auto [place] % 6 % (1 - 12) 08/24/2023 10:17 Auto Eos % 1.1 % (0.9 - 4.0) 08/24/2023 10:17 Auto Baso % 1.0 % (0.2 - 2.0) 08/24/2023 10:17 Neut Abs# 5.2 x103/mcL (1.5 - 9.2) 08/24/2023 10:17 Lymph Abs# 2.1 x103/mcL (1.3 - 2.9) 08/24/2023 10:17 [place] Abs# 0.5 x103/mcL (0.0 - 0.8) 08/24/2023 10:17 Eos Abs# 0.1 x103/mcL (0.0 - 0.4) 08/24/2023 10:17 Baso Abs# 0.1 x103/mcL (0.0 - 0.2) Patient called and notified of results. Verbalized understanding. Normal [facility] T4, Totalon 08-24-2023 T4 [Mass/Vol] 9.52 ug/dL Normal 6.09-12.23 [facility] Comment on above: Performed By: #### 7 [id number], 29019345, [id number], 5795903, 19769673, [id number] ####[facility] (DEFAULT)[address] [place] [address] TSHon 08-24-2023 TSH Qn 1.11 m[IU]/L Normal 0.45-5.33 [facility] Comment on above: Performed By: #### 7 261535, 71845615, [id number], 8539527, 45159301, [id number] ####[facility] (DEFAULT)[address] [place] [address] Coding Summaryon 08-02-2023 Coding Summary HTMLBase 64 HzzvtanmIIh4rPf+PGh lYWQ+QW0VOHJzS38odO BlkZ6iX3ARRPzJOnelT UMWNMyOMfFavdEjKD3o aXNjZXJu IC8+HL4yQUDmFsufgFT ed6J0hVJ7P58rga8wZN zwdOB4FDDlGpQtkixil 0efnHb0RCrcFeqbKoEt CRTszL39QPR1mS30Qs6 6lGHnqJBny5bovDm0Pt EpTWAkKIO0bXzgKQupu 4EpNJMrG85kiFOyf5G1 IGNvbGxhcHNlOyBlbXB 3iY1oVWxynvviv1bhln ezTvr3qy47yLAdk7D1o FR9C6RcsgL1YZGnnABr GrqaqWLGeJ0qsjfed8z xuyczJbBrRYLvNSq6YP g1BOXpnSxvSkRxGY06C CT4RQSevgQvQ2RoGZHm kAriMkR6a3G9Gb7YK9S MWjeuC5RXBTTHEFcnaN Q+YT29dk27H5RkHljcL jo2RRKeHDX3rYI9iH3p ALTtAEako1K9tWK3N5K wshVgoo4si8qiATWgQS ocX85bxNUcq7W1VNIpr GG3YIJyrFevPzEmqF92 Oyc+XOYesNsmg5QcGqj ei2aod1jdvYg7AmsiZE ZenqMhcUtfUTI1n7AoJ z8aCRYfcWN1aQD7kZ0f MbIvWuZ3PCfuY762FyR ccOFrMazvF77gJ7VybJ A+OPNbAtz0AKCthIhqN N6kJ7XlPKMcfihpjKVo wYxlVZ1jTKNtaieySTX odT3yIAKmB9n2GqRxCc H1QAwgK7LyLSExobnoL b97iL0uZnMlMhY4NJbc P7XyshT6BCTzgNBaKEa cJFE4U15nd4M6GKDtTT WnXTU9yWW4mQ8odEbse jogbGVmdDsgdmVydGlj HBrdIOsnB957CAYudMn nPkNvZGluZyBEYXRlOi AgMTEvMTQvMjAyMzwvd GQ+BHBaUGE4bRmhZCTg cYTsJIztHa3vqQtcrJm sTT1sAHKicfffNRUvdM 1kZXWktLDvhEhgYF7aZ ODcysdgt386FwNnWYU5 LKUfcPRpO9YuyG9rHeY vWLJpQLVxD5AccRFcVZ wyU082FVzyTzZ6ATFtd eUjE2QyFJXgqVctBgR1 p3K2Dc0We5GlroejX3F mjWJzFuZxYjwtJMd7K2 RkPjwvdHI+FI75NSDkK K41QDj4EUE0lDepIFtm MFCnW3KcqJ1bXwHhXQT kZGRkOyc+PHRhYmxlIH dpZHRoPScxMDAlJyBzd FxtAS7iQf7mQWLxYYFw bJlduFXjXxQla4yyPWZ rMCnaFC4mrLnaF0BssJ P0YPQjs3x3Gv42E29nU 3JvdXA+GNLaaEH4wLC3 vT4rSjBuYuM9KOmuZ12 5OfYilOXuOzncs0btz2 pfdHv9ZeG3XTSpfbJzk XjpVRG7s6AkQt14C96i IHdpZHRoPSIxNSUiIHZ msClaav3tnU8gLp6+PG TxoIF6jDU6dI1xAmDuZ bY5BSbnG798DcObtXYg Wzvvr1bvm8exqSj9DzB gIDJlgyHqqHseWDB9b4 NvAx80N0QmtTbuo0WzI pm0gq67sIOnn2D0pQA5 O6EcDOCgfrhydVJhjAf nTS0xBJNcxccrRYMryT 1vIJMaH7v7VxCbSzG5I MzrF5JestJ2EVLhvMJq BIVmrTMGqL2iuigda8u oeksqBdGoZEKpVLm6BN q1FFBmbVrtPdCxHDA2X nI5KMX3jKUswV1peQpi fbpybA6cNus+LAU0jRO fzCKWWG0eHuaifIX+PH UyNDY9cOxgIMbmTHAeq L5dNXVyZ8q5PfBnAwO3 GKbbS0CfnvO7AJNwlTB bKPLhdSALmE7mddzho8 icmumnEwOzAXNhCFt0W Xt7CPWakTghYbTyONM7 BuF8NEY6oYCdtH6inLn afagbxC3vEge+QmlydG iyWAS0DNj3L7PkLbl3I DLudMhrNP9bqXMtAMwb Io5yyQcetUyuQZ0lESZ rbfuok048QmExl3xvSS JnjHShBQgtEBU2Z49kc 7A6BMCvDVHtWLW1qUI8 zZ5yvBkfnfulcPNhbSu gdmVydGljYWwtYWxpZ2 14GQVbhCasVbMrOFc4Z 1MkWwj2EJXeoWsxJK4r nXElMZooOf3coTrtiLr iRO5eXIKqbbzym952Jw Zoy3efZGDukXYmYNadW TB6G10rv8H3RLHlFWPf RUC1oEM9hM5abBjowlv gbGVmdDsgdmVydGljYW fgUStzR976NERlhEfsP mQbrDm6V3PpOhk2QTOg cQjbWA4hrRGlVZifRn7 flSshzWheII5eCVLbrq dhl088EkLqv6qhODDoz OTrIVcjTCP9X31mo5E0 KYPxKJFpUXA4vJE5hV2 hbGlnbjogbGVmdDsgdm LrlBfxRDriLKbsK857J HRvcDsnPlBhdGllbnQg DDvnENi6Y1AwBtjrfIH +NL56VBTlVR68sKCduK Dyh4vxuEr8FoPjHZNwA GJ1wVejDTgxp0OhCZUi T00evTGdh9Z1UTGzwLh wuIDiIwVdjBU9fP7hBV jatgqbp6yaygxiWkgbb 9oisg66yI82R62gHHad ZHRoPSIzMCUiIHZhbGl zed6ttK7oJa0+PGNvbC U5jEB3rH4jHZTqAqG3O AynE475GoUohHYkLhrw l5wsn7wsaUa8JrY1JRO cunRzqJrdABH8k2RjJh 69L02sYBieBMFjMVOkB PEsVKUonErjjj7rmH4s Ii8+KWGdnJB5oIV8dM3 lHzKzJuA8YGxnS426Ts PzbXBuTcthL51hM8Umh XA+ATCfPrt8VSRoyUqs EL7nnXSoZUljEj4rCEC 0WyDwYgZaOWjiX2EbXF WtbjuhpgrgyWE3ZDQmJ XMimR13Fj3vhGsvLIBz qPWYsV1lfzczy5fyqfq eRuUvVCHrSOs8XAg0WH BoxWyqFwLeZNP9DpD5X YJ9iFGoyN0tnBczfgvv hH8cC8TbPEIdmpgfQx0 5eH9yOgOgHcB6NPwlUb c+W7QMIA8UJcbxB8PSY GREEWZSM6GGFKjgyFJ+ MWVaVZP7nJgrWShjSYT xdQ9kWNVtM1c4MrTdFz E8LWbxW7KqCQQqzslyP p77gM7rSxGqAhQ2ITdt H3KxsvX4SHLwjYAyGMa gAAW2U22kw6J6GWTdUX CwRJT7rFU0dA9vgLpgb jogbGVmdDsgdmVydGlj WUqmMEqzF760WFGeqEc yOhPfYfZkNqW3OqR3J5 CyYcg4PDJtlEvuHO6ck EFyUMdbZg9zoMfldLbo MH7eMICdgzkrNFGcmL8 oXNXhzCUwfHoqAJ0kOY Woplbtw225JyOwVZR9W LCgfABtZ2SvdN8fBlPj DQNgDJJsH5DvqOSpWNt hJ520NHelLmF3QTJshp KiG3UiPCJsaEcoNpH1s 1M1Ld26CGGXANRecubb dGQ+GTGtLZM2rPtsXAn pDYRziN6mJKUrD7v1Us PeMpM0DCybO5RvTLWou pnoHf90tO0sScBjNdL1 JUboJ3VonsY1ZJOoxRI jKVpbXWD2Z01br8J1PT BeKXWoGVZ3jDV3zX9xp GlnbjogbGVmdDsgdmVy cGytVCqeFYcqN204PRH itUqoQz6RJIR9C0SxAh p0OHWwjKvmKF3ajEJnX QcgQn8cbUeigWffAE1u RONlkqmsDERskO4uZTD vkCYufYqzXB9hZTRaxt vej316FvFoKIM7GREdn LSxT8RnuJ0fKlKgVVSx IJBlW6PldWOyPDjgY88 8EVwiUnY7TKGifzQkP5 TjWPMtxNlfRdN9b3U4S r9ARFbkmDX+PD79dl67 Q8RgJjmlPxe4VVZpPPE 2pIQ1bW8dRLSnVEkfu1 B3iSQ0B5HaeeTytz1bj 7klPWOyTMduF65xlTGy u4B0OFWggUS5NARwgUw jWtHchK31Foe+PGNvbG fqt7IeAxzkj3eeb7jgq Fd7VbJuTVLfilOgbNvr MMA0s3ZeBz60W94vGRc pZHRoPSIzMCUiIHZhbG rjnj5ppY4oJj0+PGNvb KR9hPP6gK0fUkZlSuD1 YRjrU791UrJsnKIhLpa mg8gmm7ruyFr1TpJiJI LplbKecZdbODD9g1KsQ u29O0UloQqdy6MmBtx7 te07pWXho3D1eSV7X9Z hZGRpbmctbGVmdDogMC 5cKDWitxoeTTSajI9gH TOfV7l9ErCyXaZ5KKvo T8DlgiL8IBNkkIRgZLR gbIVPnY9scqrxp0khxz tjIwThCKJgMPa8KTn0J PXgrIrqZaPcBDN0BfD9 TVF1dDThmF5ymXxyeec ppA0wCtr+KNp2u2xofG HhJK9yrWH9FD90XE93q NDeu1J4kSR7M1ZnFZRq gjrvqlbxyEM6HECpCGF ugS86Dq6gcJcwUd9fNE FmDVK9AEJgbCSsO8Rzi H5aEdVwRCBjTBYdZ7Da bZUmEWqzJ694RFozQqG 7MCXsqnPkT4ViNQUpdJ twRqW7a5J4Fu0BVM32Q Y92OM07iMOda4C1fIS6 F4PlKVWyqyeoikhioKM 9QOCdUFJheQ54Vp7ruA caUp5mDMAnUDO3VMQej YQgJ6SdpO8kSlJlMBFa DMYbP7PojUPaJHquN00 3APwnRyR6YUVzjbIlC9 InFKGyfUlvPgS2x1P6H n6QQy99OF28XF08ePWw z4I9kFL3A5KqEOIuufj sykfkfIZ2APNnZWRutI 60Tb4ctWmgMm3wDKMyN RG3IJOdlKNeQ8KzcD6e RcRkNXYxNPMyH7EdrHJ eAQnrF116XOsqUjQ2CC JicjXkS4ZbJREzgZqvF gF8d9X1Kb5TXYynprn0 X0XdHbltzVC+YI34LIQ iAM58iCSydFXgj2tvhI w0PbFfBQXvVZN8nHsuV Ptvd5WkXPWvR20ziNOc c2U (more content not included)... Normal [facility] ED Clinical Summaryon 2022 ED Clinical Summary [facility] ? Urgent Care [address] [place] [address] Clinical Summary PERSON INFORMATION Name: DION ANDRES Age: 47 Years Sex: MALE : 1975 MRN: Acct#: Visit Reason: UC - Laceration; LACERATION ON LEFT HAND Arrival: 07/26/2023 15:38:23 Discharge: 07/26/2023 17:27:00 LOS: 000 01:49 Check In: 07/26/2023 15:38:23 Checkout: 07/26/2023 17:27:00 Address: [address] [place] [id number] PCP: MILAN NAILS DO PROVIDER INFORMATION Provider Role Assigned Unassigned Lakia BRADSHAW, Rashad Moralez ED PA 07/26/2023 15:51:54 Carlos RN, Bebe [...] Address: When: MILAN NAILS DO [address] [place] [address] Within 3 to 5 days Comments: Diagnosis [...] wound to hand Patient Understands: Yes - Patient/family/home child care provider verbalizes understanding of instructions given Comment: Normal [facility] ED Patient Summaryon 023 ED Patient Summary [facility] ? Urgent Care [address] [place] [address] PATIENT DISCHARGE INSTRUCTIONS Patient Information Name: DION ANDRES Age: 47 Years Date of : 1975 Reason For Visit: UC - Laceration; LACERATION ON LEFT HAND Arrival Time: 07/26/2023 15:38:23 Primary Care Physician: MILAN NAILS DO Attending Physician: Rahsad Bowman Comment: Patient Education With: Address: [place]: [place] [address] [place] [id number] Within 3 to 5 days Comments: Diagnosis [...] and water are not available, use hand medical claims processor. ? Change your dressing at least once [...] at home: Medicines ? Take or apply bvrc-ben-jagluip and prescription medicines only as told by [...] is impor (more content not included)... Normal [facility] Recordon 023 Urgent Care Record [facility] ? Urgent Care [address] [place] [address] PATIENT DISCHARGE INSTRUCTIONS Patient Information Name: DION ANDRES Age: 47 Years Date of : 1975 Reason For Visit: UC - Laceration; LACERATION ON LEFT HAND Arrival Time: 07/26/2023 15:38:23 Primary Care Physician: MILAN NAILS DO Attending Physician: Rashad Bowman Comment: Visit Diagnosis: Diagnoses This Visit Puncture wound to hand (S61.439A) UC - Laceration ([id number]) If you received any narcotics, sedation, or [...] legal documents With: Address: When: [place] [address] Within 3 to 5 days Comments: Diagnosis [...] and treatment you received today in the [facility] were for an urgent problem and are not intended as complete care. It is important for you to follow up with a doctor, nurse practitioner, or physician?s bankruptcy legal assistant for ongoing care. If your symptoms [...] so we can reach you if necessary. [facility] has provided you with a complete list of medications post discharge. Please inform your filter bed placer/provider of your visit and for further instruction on these medications. Any specific questions regarding your chronic medications and dosages should be discussed with your primary care physician(s) and/or pharmacist. New Medications [facility], [address] [place], [place] [id number], [phone] amoxicillin-clavula ld (amoxicillin-clavul anate 875 mg-125 mg [...] release capsul (more content not included)... Normal [facility] XR Hand Complete Lefton 11-0 XR Hand [...] DO 07/26/23 4:50 pm Technologist: Joseph STEPHENS [facility] Outside Recordson 06-07-2023 Outside Records [id number] [facility] LUMBAR SPINE 6 OR MORE VWSon 01-14-2022 LUMBAR SPINE 6 OR MORE S [facility] Department of Radiology [address] [place] [id number] Patient Name: DION ANDRES : 1975 [...] , Ordering Provider - A JER LOPEZ PROSTHETICS LAB TECHNICIAN , Exam: LUMBAR SPINE 6 OR MORE [...] radiographically. Electronically signed: Rashad Adler. Transcribed by: [email or web address], User Resident: Electronically Signed by: RASHAD ADLER @ 01/15/2022 11:40 AM Normal [facility] Comment on above: Order Comment: , ap, lat, flex, ex, obliques, r/o instability or pars defect , Views (X-RAY, LUMBAR SPINE): AP, Lateral, L5-S1 Spot, Obliques, Flexion, Extension , ap, lat, flex, ex, obliques, r/o instability or pars defect , Views (X-RAY, LUMBAR SPINE): AP, Lateral, L5-S1 Spot, Obliques, Flexion, Extension , , , Ordering Provider - Sherice LOPEZ PROSTHETICS LAB TECHNICIAN , Vital Signs Date Time Vital Sign Value Performing Clinician Facility 09-23-2023 10:05-0500 Body height Abbey Robin Other [facility] Other 09-23-2023 10:05-0500 Body mass index (BMI) [Ratio] 44.21 kg/m2 Abbey Nietomond Other [facility] Other 09-23-2023 10:05-0500 Body temperature 98.6 [degF] Abbey Nietomond Other [facility] Other 09-23-2023 10:05-0500 Body weight 135.81 kg Abbey Nietomond Other [facility] Other 09-23-2023 10:05-0500 Diastolic blood pressure 82 mm[Hg] Abbey Sharda Other [facility] Other 09-23-2023 10:05-0500 Respiratory rate 18 /min Abbey Nietomond Other [facility] Other 09-23-2023 10:05-0500 SaO2% (BldA) [Mass fraction] 95 % Abbey Robin Other [facility] Other 09-23-2023 10:05-0500 Systolic blood pressure 152 mm[Hg] Abbey Robin Other [facility] Other 04-15-2023 10:30-0400 Body height Marisol Zelaya Other [facility] Other 04-15-2023 10:30-0400 Body mass index (BMI) [Ratio] 45.33 kg/m2 Marisol Zelaya Other [facility] Other 04-15-2023 10:30-0400 Body temperature 97.6 [degF] Marisol Zelaya Other [facility] Other 07-28-2023 10:30-0400 Body weight 139.26 kg Marisol Zelaya Other [facility] Other 04-15-2023 10:30-0400 Diastolic blood pressure 80 mm[Hg] Marisol Zelaya Other [facility] Other 04-15-2023 10:30-0400 Respiratory rate 18 /min Marisol Zelaya Other [facility] Other 04-15-2023 10:30-0400 SaO2% (BldA) [Mass fraction] 98 % Marisol Zelaya Other [facility] Other 04-15-2023 10:30-0400 Systolic blood pressure 125 mm[Hg] Marisol Zelaya Other [facility] Other Encounters Encounter Date Encounter Type Care Provider Facility Start: 05-24-2024 End: 05-24-2024 ambulatory MAURIZOI PATRICK Not Available Start: 04-18-2024 End: 04-18-2024 ambulatory MILAN P HOUSE Facility:[facility] Start: 04-18-2024 End: 04-18-2024 ambulatory COMFORT MOULTONParamjit Not Available Start: 04-09-2024 End: 04-09-2024 ambulatory MILAN P HOUSE Facility:[facility] Start: 02-22-2024 End: 02-22-2024 ambulatory MILAN P HOUSE Facility:[facility] Start: 01-23-2024 End: 01-23-2024 ambulatory MILAN P HOUSE Facility:[facility] Start: 01-16-2024 End: 01-16-2024 ambulatory MILAN P HOUSE Facility:[facility] Start: 01-10-2024 End: 01-10-2024 ambulatory MILAN P HOUSE Facility:[facility] Start: 11-24-2023 End: 11-24-2023 ambulatory MILAN P HOUSE Facility:[facility] Start: 09-23-2023 End: 09-23-2023 ambulatory Abbey Robin Other [facility] Other Start: 09-23-2023 Office outpatient visit 15 minutes Abbey Nietomond [facility] Start: 08-24-2023 End: 08-24-2023 ambulatory MILAN P HOUSE Facility:[facility] Start: 08-24-2023 End: 08-24-2023 [facility]ulatory [facility] Start: 08-15-2023 End: 08-15-2023 ambulatory Kiel Polk MD Facility:[facility] Start: 07-26-2023 End: 07-26-2023 ambulatory Rashad BRADSHAW Facility:[facility] Start: 05-24-2023 End: 05-24-2023 ambulatory MILAN P HOUSE Facility:[facility] Start: 04-15-2023 End: 04-15-2023 ambulatory Marisol Zelaya Other [facility] Other Start: 04-15-2023 Office outpatient ne w [...] Start: 07-22-2022 End: 07-23-2022 ambulatory LUCY Maurice GIL . Facility:[facility] Start: 04-22-2022 End: 04-23-[address] LUCY GIL . Facility:[facility] Start: 04-15-2022 End: 04-16-[address] LUCY GIL . Facility:[facility] Start: 03-16-2022 End: 03-16-[address] LUCY GIL . Facility:[facility] Start: 03-09-2018 Ambulatory D[place] LU Facility :1532 Start: 03-08-2018 Ambulatory [place] LU Facility :1532 Payers Date Payer Category Payer Medicare [id number] 2.1 [id number] 1975 Unknown [id number] 2.16.84 0.1.234348.3.579.2.593 1975 Unknown [id number] 2.16.84 0.1.460249.3.579.2.593 1975 Unknown [id number] 2.16.84 0.1.785771.3.579.2.593 1975 Unknown [id number] 2.16.84 0.1.795219.3.579.2.593 1975 Unknown [id number] 2.16.84 0.1.772788.3.579.2.593 1975 Unknown [id number] 2.16.84 0.1.980743.3.579.2.593 1975 Unknown [id number] 2.16.84 0.1.510656.3.579.2.593 1974 Unknown [id number] 2.16.84 0.1.080862.3.579.2.593 1974 Unknown [id number] 2.16.84 0.1.343362.3.579.2.593 1975 Unknown [id number] 2.16.84 0.1.475804.3.579.2.593 1975 Unknown [id number] 2.16.84 0.1.128320.3.579.2.593 1975 Unknown [id number] 2.16.84 0.1.166516.3.579.2.593 1975 Unknown [id number] 2.16.84 0.1.907870.3.579.2.593 1974 Unknown [id number] 2.16.8 40.1.281454.3.579.2.718 1975 Unknown [id number] 2.16.8 40.1.087729.3.579.2.71 1975 Unknown [id number] 2.16.8 40.1.463836.3.579.2.71 1975 Unknown [id number] 2.16.8 40.1.346312.3.579.2.718 1974 Unknown [id number] 2.16.8 40.1.782301.3.579.2.718 1974 Unknown [id number] 2.16.8 40.1.547092.3.579.2.71 1975 Unknown [id number] 2.16.8 40.1.251183.3.579.2. 1975 Unknown [id number] 2.16.8 40.1.328885.3.579.2.718 1975 Unknown [id number] 2.16.84 0.1.049888.3.579.2.1259 1974 Unknown [id number] 2.16.84 0.1.560571.3.579.2.1259 1960 Medicare [id number] Unknown [id number] Social History Date Type Detail Facility Unknown if ever smoked [facility] Other Sex Assigned At Sex Assigned At Bir th [facility] Other Clinical Notes 04-15-2022 to 05-22-2024 Note Date & Type Note Facility 05-22-2024 Note Entered by DYLAN NAILS DO on May 22, 2024 08:21:07 EDT From: MILAN NAILS DO To: [facility] Sent: 05/22/2024 08:21:07 EDT Subject: Medication Management Submitted: Complete:SUMAtriptan (SUMAtriptan 100 mg oral tablet) Signed by MILAN NAILS DO 05/22/2024 08:21:00 EDT Approved with modifications: SUMAtriptan (sumatriptan 100 mg tablet) TAKE 1 TABLET BY MOUTH DAILY Qty: 12 EA Days Supply: 12 Refills: 2 Substitutions Allowed Route To Pharmacy - [facility] From: [facility] To: MILAN NAILS DO Sent: May 22, 2024 7:00:33 AM CDT Subject: Medication Management Due: May 23, 2024 12:13:40 AM CDT On Hold Pending Signature Drug: SUMAtriptan (SUMAtriptan 100 mg oral tablet), TAKE 1 TABLET BY MOUTH DAILY Quantity: 12 EA Days Supply: 12 Refills: 2 Substitutions Allowed Notes from Pharmacy: Dispensed Drug: SUMAtriptan (SUMAtriptan 100 mg oral tablet), TAKE 1 TABLET BY MOUTH DAILY Quantity: 12 EA Days Supply: 12 Refills: 2 Substitutions Allowed Notes from Pharmacy: [facility] 05-02-2024 Note Entered by DYLAN NAILS DO on May 02, 2024 11:28:48 EDT From: MILAN NAILS DO To: [facility] Sent: 05/02/2024 11:28:48 EDT Subject: Medication Management Submitted: Complete:fexofenadine (fexofenadine 180 mg oral tablet) Signed by MILAN NAILS DO 05/02/2024 11:28:00 EDT Approved with modifications: fexofenadine (fexofenadine 180 mg tablet) TAKE 1 TABLET BY MOUTH DAILY Qty: 30 tab(s) Days Supply: 30 Refills: 5 Substitutions Allowed Route To Pharmacy - [facility] From: [facility] To: MILAN NAILS DO Sent: May 02, 2024 10:22:44 AM CDT Subject: Medication Management Due: May 03, 2024 12:14:21 AM CDT On Hold Pending Signature Drug: fexofenadine (fexofenadine 180 mg oral tablet), TAKE 1 TABLET BY MOUTH DAILY Quantity: 30 tab(s) Days Supply: 30 Refills: 5 Substitutions Allowed Notes from Pharmacy: Dispensed Drug: fexofenadine (fexofenadine 180 mg oral tablet), TAKE 1 TABLET BY MOUTH DAILY Quantity: 30 tab(s) Days Supply: 30 Refills: 5 Substitutions Allowed Notes from Pharmacy: [facility] 02-22-2024 Note Entered by DYLAN NAILS DO on February 22, 2024 11:51:43 EDT From: MILAN NAILS DO To: [facility] Sent: 02/22/2024 11:51:43 EDT Subject: Medication [...] 5 Substitutions Allowed Route To Pharmacy - [facility] Approved SUMAtriptan (sumatriptan 100 mg tablet) TAKE 1 TABLET BY MOUTH DAILY Qty: 12 EA Days Supply: 12 Refills: 2 Substitutions Allowed Route To Pharmacy - [facility] Approved with modifications: propranolol (propranolol ER 80 mg capsule,24 hr,extended release) TAKE 1 CAPSULE BY MOUTH DAILY Qty: 30 cap(s) Days Supply: 30 Refills: 5 Substitutions Allowed Route To Pharmacy - [facility] Patient matched by MILAN NAILS DO on 02/22/2024 11:50:58 EDT From: [facility] To: MILAN NAILS DO Sent: February [...] Refills: 2 Substitutions Allowed Notes from Pharmacy: [facility] 01-23-2024 Note Entered by DYLAN NAILS DO on January 23, 2024 13:46:16 EDT From: MILAN NAILS DO To: [facility] Sent: 01/23/2024 13:46:16 EDT Subject: Medication [...] 11 Substitutions Allowed Route To Pharmacy - [facility] Patient matched by MILAN NAILS DO on 01/23/2024 13:45:54 EDT From: [facility] To: MILAN NAILS DO Sent: January [...] Refills: 11 Substitutions Allowed Notes from Pharmacy: [facility] 01-16-2024 Note Entered by DYLAN NAILS DO on January 16, 2024 14:24:31 EDT From: MILAN NAILS DO To: [facility] Sent: 01/16/2024 14:24:31 EDT Subject: Medication Management Documented Complete:omeprazole (omeprazole 20 mg oral delayed release capsule) Signed by MILAN NAILS DO 01/16/2024 14:24:00 EDT Approved with modifications: omeprazole (omeprazole 20 mg capsule,delayed release) TAKE 1 CAPSULE BY MOUTH DAILY Qty: 30 cap(s) Days Supply: 30 Refills: 11 Substitutions Allowed Route To Pharmacy - [facility] Patient matched by MILAN NAILS DO on 01/16/2024 14:24:11 EDT From: [facility] To: MILAN NAILS DO Sent: January [...] Refills: 11 Substitutions Allowed Notes from Pharmacy: [facility] 11-07-2023 Note Entered by DYLAN NAILS DO on November 07, 2023 07:53:45 EST From: MILAN NAILS DO To: [facility] Sent: 11/07/2023 07:53:45 EST Subject: Medication [...] 30 Refills: 5 Substitutions Allowed Route To [facility] Approved with modifications: lisinopril (lisinopril 20 mg tablet) TAKE 1 TABLET BY MOUTH DAILY Qty: 90 tab(s) Days Supply: 90 Refills: 5 Substitutions Allowed Route To [facility] From: [facility] To: MILAN NAILS DO Sent: November 06, 2023 9:32:22 AM SECURITY SERGEANT Subject: Medication Management Due: November 07, 2023 12:07:40 AM SECURITY SERGEANT On Hold Pending Signature Drug: fexofenadine (Leigh [...] Refills: 5 Substitutions Allowed Notes from Pharmacy: [facility] 09-23-2023 Evaluation note Encounter Date Diagnosis Assessment [...] 3 days Sep, Bronchitis (ICD-10 - J40) [facility] Other 11-07-2023 NotePatient Education Materials Follows: Sutured [...] and water are not available, use hand medical claims processor. ? Change your dressing at least once [...] at home: Medicines ? Take or apply sxau-vmu-eovbrwy and prescription medicines only as told by [...] by your health care provider. (morecontent not included)...[id number] Note Entered by MILAN NAILS DO on June 28, 2023 14:22:45 EDT From: MILAN NAILS DO To: [facility] Sent: 06/28/2023 14:22:45 EDT Subject: Medication Management Submitted: Complete:lisinopril (lisinopril 20 mg oral tablet) Signed by MILAN NAILS DO 06/28/2023 14:22:00 EDT Approved lisinopril (lisinopril 20 mg tablet) TAKE 1 TABLET BY MOUTH DAILY Qty: 90 tab(s) Days Supply: 90 Refills: 0 Substitutions Allowed Route To Pharmacy - [facility] From: [facility] To: MILAN NAILS DO Sent: June [...] Refills: 0 Substitutions Allowed [id number] Note Entered by MILAN NAILS DO on May 24, 2023 07:28:08 EDT From: MILAN NAILS DO To: [facility] Sent: 05/24/2023 07:28:08 EDT Subject: Medication Management Documented Complete:lisinopril (lisinopril 20 mg oral tablet) Signed by MILAN NAILS DO 05/24/2023 07:28:00 EDT Approved lisinopril (lisinopril 20 mg tablet) TAKE 1 TABLET BY MOUTH EVERY DAY Qty: 7 tab(s) Days Supply: 7 Refills: 0 Substitutions Allowed Route To Pharmacy - [facility] Patient matched by MILAN NAILS DO on 05/24/2023 07:27:02 EDT From: [facility] To: MILAN NAILS DO Sent: May [...] Refills: 0 Substitutions [facility]owed [id number] Evaluation note* Encounter Date Diagnosis Assessment Notes [...] is not contagious from itself or drainage. [facility] 05-30-2023 NoteCONSULTATION CONSULTATION DATE: 02/15/2023 TO: [...] the lower extremities. MEDICATION: Current medication includes Farmland 5 mg t.i.d. p.r.n. Patient reports it [...] our patients to inform us about any qpcq-kcy-mykulba medications or herbal remedies/nutritional supplements/alternative remedies. 2. [...] treatment options with their primary care provider.[facility] [id number] Note CONSULTATION CONSULTATION DATE: 01/06/2023 TO: Dr. [...] our patients to inform us about any cdvs-xkq-dmvinwq medications or herbal remedies/nutritional supplements/alternative remedies. 2. [...] treatment options with their primary care provider.[facility] [id number] Note CONSULTATION PROCEDURE DATE: 10/06/2022 PREOPERATIVE DIAGNOSIS: [...] will be followed up in the office.[facility] [id number] NoteCONSULTATION CONSULTATION DATE: 08/26/2022 HISTORY OF PRESENT [...] his muscle relaxer. Our clinic prescribes his Farmland 5/325 b.i.d. and diclofenac 75 mg b.i.d. [...] normally does. All questions were answered today.[facility] [id number] NoteCONSULTATION CONSULTATION DATE: 07/22/2022 HISTORY OF PRESENT ILLNESS: This is a 46-year-old gentleman returning to the clinic for a three month follow up for his chronic lower back pain and lumbar radiculopathy. The patient reports pain 6-10; describes it as a dull ache to [...] a cane. He has seen Neurosurgery at [facility] in the past, which they feel, at this time, he is not a surgical candidate and to be managed by Pain Management. He current does see Dr. [place] at [facility] as well. Activities that aggravate his pain are pulling, sitting, walking, lying down and bending. He will alternate heat and ice which he feels does not make a significant difference. Medications include trazodone 50 mg q.h.s., tizanidine 4 mg b.i.d., Lyrica 50 mg t.i.d., diclofenac 75 mg b.i.d. and Farmland 5/325 b.i.d. He does attend pool therapy at the [facility] 2-3 times a week, which he feels [...] be followed up in the clinic thereafter.[facility] 04-22-2022 NoteCONSULTATION PROCEDURE DATE: 04/22/2022 PRE AND [...] will be followed up in the office.[facility] [id number] NoteCONSULTATION CONSULTATION DATE: 04/15/2022 This is a [...] mg b.i.d., Lyrica 50 mg b.i.d. and Farmland 5/325 b.i.d. He is complaining of trouble [...] is gained for his trigger point injections.[facility] general Narrative - Reported* Type Description Date Medical History HTN (hypertension) Medical History GERD (gastroesophageal reflux di sease) Medical History Chronic pain Medical History Anxiety Surgical History tonsillectomy and adenoidectomy Surgical History ablasion [employer] Other History general Narrative - Reported* Type Description Date Medical History HTN (hypertension) Medical History GERD (gastroesophageal reflux di sease) Medical History Chronic pain Medical History Anxiety Surgical History tonsillectomy and adenoidectomy Surgical History ablasion Surgical History nerve block Surgical History epidural [employer] [facility] Other Summary Purpose Family History No Family [...] and content) DATE CREATED AUTHOR 03/09/2018 [facility] DATE CREATED AUTHOR AUTHOR'S ORGANIZ ATION 01/19/2022 [facility] DATE CREATED AUTHOR AUTHOR'S ORGANIZ ATION 02/25/2023 [facility] DATE CREATED AUTHOR AUTHOR'S ORGANIZ ATION 05/22/2024 [facility] DATE CREATED AUTHOR AUTHOR'S ORGANIZ ATION 05/25/2024 [facility] EPIC REASON FOR VISIT (unrecogniz ed section and [...] BE BASED ON THE PRIMARY CLINICAL RECORDS. [facility]. provides no warranty or guarantee of the accuracy or completeness of information in this document.
--- NOTE | 2024-06-07 10:08 | P.CN_ITS ---
Consult Note: HPI Data of Consult Patient: known to practice within the last 3 years Requesting Physician: Razia Contreras NP Primary Care Provider: GERMANIA NAILS Consult Narrative Reason for consult: f/u Narrative: Riccardo Hale a pleasant 48 year old male presents for evaluation and management of chronic neck and back pain with radiculopathy. Today rating pain 6/10 in neck, bilateral arms and hands, bilateral low back radiating to bilateral thighs and lower leg, burning tingling sharp and intermittent numbness and pain of bilateral hands RUE. Pain increases to 10/10. Patients symptoms worse with sitting or standing too long, leaning forward decreases pain. Continues to find benefit from medication regimen without side effects. Patient has failed to benefit from greater than 6 weeks PT/provider guided HEP. Recent lumbar MRI as noted below. Pain most significant in left low back radiating into left leg and right foot. Patient noting mild relief from recent L5/S1 KEMAR. Patient has an upcoming EMG BLE, BUE emg confirmed mild CTS. cc:: CC: Razia Contreras NP Review of Systems ROS Status of ROS 10 or more systems reviewed and unremark able except as noted in history and below Musculoskeletal Reports: back pain, neck pain, extremity pain and joint pain PFSH PFSH Medical History Osteoarthritis ?M19.90 - Unspecified osteoarthritis, unspecified site (ICD-10) Numbness and tingling ?R20.0 - Anesthesia of skin (ICD-10) ?R20.2 - Paresthesia of skin (ICD-10) Obesity ?E66.9 - Obesity, unspecified (ICD-10) Acid reflux ?K21.9 - Gastro-esophageal reflux disease without esophagitis (ICD-10) Former smoker ?Z87.891 - Personal history of nicotine dependence (ICD-10) Sleep apnea ?G47.30 - Sleep apnea, unspecified (ICD-10) High cholesterol ?E78.00 - Pure hypercholesterolemia, unspecified (ICD-10) Hypertension ?I10 - Essential (primary) hypertension (ICD-10) Surgical History History of tonsillectomy and adenoidectomy ?Z90.89 - Acquired absence of other organs (ICD-10) Meds Home Medications and Allergies Home Medications ?Medication ?Instructions ?Recorded ?Confirmed ?Type albuterol sulfate 90 mcg/actuation inhalation Q4H PRN shortness of 03/10/23 History aerosol inhaler breath or wheezing duloxetine 30 mg capsule,delayed 30 mg PO QDAY 03/10/23 04/24/24 History release duloxetine 60 mg capsule,delayed 60 mg PO QDAY 03/10/23 04/24/24 History release ipratropium 0.5 mg-albuterol 3 mg 3 ml inhalation TID 03/10/23 04/24/24 History (2.5 mg base)/3 mL nebulization soln lisinopril 20 mg tablet 20 mg PO QDAY 03/10/23 04/24/24 History omeprazole 20 mg capsule,delayed 20 mg PO QDAY 03/10/23 04/24/24 History release trazodone 50 mg tablet 50 mg PO .hs PRN sleep 03/10/23 04/24/24 History diclofenac sodium 75 mg 75 mg PO BID PRN pain #60 tabs 07/27/23 04/24/24 Rx tablet,delayed release pregabalin 200 mg capsule (Lyrica) 200 mg PO TID 03/01/24 04/24/24 History propranolol 80 mg capsule,24 80 mg PO DAILY 03/01/24 04/24/24 History hr,extended release hydrocodone 5 mg-acetaminophen 325 1 tab PO TID PRN pain #75 tabs 04/04/24 04/24/24 Rx mg tablet amitriptyline 25 mg tablet 25 mg PO DAILY 04/24/24 04/24/24 History baclofen 10 mg tablet 10 mg PO DAILY 04/24/24 04/24/24 History sumatriptan succinate 100 mg tablet 100 mg PO PRN migraine headache 04/24/24 History hydrocodone 5 mg-acetaminophen 325 See Rx Instructions .Route 05/25/24 Rx mg tablet .COMPLEX PRN pain #75 tabs Allergies Allergy/AdvReac Type Severity Reaction Status Date / Time No Known Drug Allergies Allergy Verified 04/24/24 07:31 Exam Constitutional Documenting provider has reviewed patient's vital signs: yes Common normals: no apparent distress, oriented x3, healthy appearing, alert and well nourished General appearance: cooperative Orientation/consciousness: Yes awake, Yes oriented to person, Yes oriented to place and Yes oriented to time Other: uses cane HENMT Common normals: normocephalic, hearing grossly normal bilaterally and moist oral mucous membranes Head and scalp: normocephalic Eye Common normals: PERRL Pupil: PERRL Neck & C-Spine Common normals: full ROM General: normal visual inspection Cervical spine: pain with cervical ROM and cervical spine tenderness Other: positive sprulings strength 5/5 in BUE sensation intact/equal BUE Chest Common normals: inspection of chest normal Respiratory Common normals: normal respiratory effort, no retractions and no use of accessory muscles Effort & inspection: able to speak in complete sentences and symmetric chest movement Back & Pelvis Common normals: thoracic and lumbar spine normal to inspection Lumbar spine/lower back: normal to inspection, ROM limited, pain with ROM, paraspinal muscle tenderness, paraspinal muscle spasm, straight leg raise positive right and straight leg raise positive left Other: positive facet loading bilat positive jo-ann bilat Muscle strength 4/5 LLE, 5/5 in RLE decreased sensation to left L5/S1 Extremity Common normals: normal to inspection and full ROM Neuro Common normals: oriented x3, CN's II-XII intact bilaterally, moves all extremities, no focal motor deficits, no sensory deficits noted and deep tendon reflexes 2+ bilaterally Sensorium/orientation: alert Gait (neuro): antalgic and assistive device used cane Motor exam: strength 5/5 throughout and no movement abnormalities noted Psych Common normals: mental status grossly normal, thought process normal, cooperative, affect normal, speech normal and activity/motor behavior normal Speech: normal speech Thought process: normal thought process Assessment and Plan Assessment and Plan (1) Cervical radiculopathy: (2) Cervical spondylosis: (3) Chronic prescription opiate use: (4) Lumbar radiculopathy: (5) Lumbar spondylosis: Plan C6-7 KEMAR under fluoroscopy with Dr Carrillo for cervical radiculopathy continue f/u with neurology continue f/u with PCP, interested in RA workup as he has a family hx encouraged topical OTC nsaid cream or voltaren TID-QID to hands continue current medications, tolerating well without side effects psych eval handout provided for consideration of spinal cord stim trial for chronic lumbar radiculopathy and low back pain, hx of confirmed radiculopathy on prior EMG and has an upcoming BLE EMG with neurology f/u 2 weeks after cervical KEMAR
== END 2024-06-07 09:38 | disposition home or self-care (01) ==
LOC: PM 09:38
PROVIDERS: PCP Family Medicine; Visit Provider Nurse Practitioner
DX: M54.12 Radiculopathy, cervical region (principal); M47.812 Spondylosis without myelopathy or radiculopathy, cervical region; Z79.891 Long term (current) use of opiate analgesic; M54.16 Radiculopathy, lumbar region; M47.816 Spondylosis without myelopathy or radiculopathy, lumbar region
CPT/HCPCS: G0463

== ENCOUNTER 2024-07-03 07:37 | Day surgery (SDC) | payer MEDICARE, SELFPAY ==
--- OUTSIDE RECORDS SUMMARY | 2024-07-03 07:39 | XMS_ITS | CCD ---
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 Name Role Phone KIRNUS, DALLAS Unavailable Unavailable [...] GONZALEZ Primary Care Unavailable GIL ., DR ULCY Maurice Attending Unavailable GIL ., DR LUCY [...] HOY ., DR GONZALEZ Primary Care Unavailable GLI ., DR LUCY Maurice Attending Unavailable GIL ., DR LUCY Maurice Admitting Unavailable HOUSE, DR SOLO Primary Care Unavailable CONWAY ., KALI Consulting Unavailable LAKSHMIPATHY ., LENCHOATH Attending Tiffany vailable LAKSHMIPATHY ., MESSI Admitting Tiffany vailable LAKSHMIPATHY ., MESSI Consulting Tiffany vailable HOUSE, DR SOLO Primary Care Unavailable Marisol Zelaya Unavailable Abbey Robin Unavailable COMFORT JIMENEZ Attending Unavailable MAURIZIO PATRICK Attending Unavailable HOUSE, MILAN P Primary Care Unavailable HOUSE, DO MILAN P Attending Unavailable HOUSE, MILAN P Primary Care Unavailable HOUSE, MILAN P Primary Care Unavailable HOUSE, DO MILAN P Attending Unavailable HOUSE, MILAN P Primary Care Unavailable Kile Polk MD Attending Unavailable HOUSE, MILAN P Primary Care Unavailable Kiel Polk MD Attending Unavailable HOUSE, DO MILAN P Attending Unavailable HOUSE, MILAN P Primary Care Unavailable HOUSE, DO MILAN P Attending Unavailable HOUSE, MILAN P Primary Care Unavailable HOUSE, MILAN P Primary Care Unavailable HOUSE, DO MILAN P Attending Unavailable HOUSE, DO MILAN P Admitting Unavailable HOUSE, MILAN P Primary Care Unavailable HOUSE, DO MILAN P Attending Unavailable HOUSE, DO MILAN P Attending Unavailable [...] by mouth every six hours as needed Warner 5-325 MG 1 tablet as needed Orally every 6 hrs Active [id number] actuat albuterol 0.09 mg/actuat metered dose [...] 30 Days Active take 1 capsule by [facility] every twenty-four hours DULoxetine HCl 60 MG [...] Range Facility [facility] 05-03-2024 Outside Records [id number] 38#1.00[facility] 04-24-2024 Outside Records [id number] 62#1.00[facility] Rad - Other Radiology Report on 04-24-2024 Rad - Other Radiology Report [id number] 49#1.00[facility] Patient Letteron 04-11-2024 Patient Letter [id number] 36#1.00[facility] 04-05-2024 Outside Records [id number] 3#1.00[facility] Outside Records [id number] 9#1.00[facility] Rad - Other Radiology Report on 04-02-2024 Rad - Other Radiology Report [id number] 44#1.00[facility] 03-02-2024 Outside Records [id number] #1.00[facility] 12-08-2023 Outside Records [id number] 49#1.00[facility] 09-28-2023 Outside Records [id number] 4402#1.00[facility] Coding Summaryon 08-25-2023 Coding Summary HTMLBase 64 QopvvupxKPd6vSz+PGh lYWQ+UC8PUMGnF33wvG OzaF2iT0XPAUtVFyttR WQOYTqYCeLvhzLqLW7o aXNjZXJu IC8+PA0qHYFrGnxprLF bw7M6jCO3T25uxs2dQK dqsIM5ECXcVaIraygzr 2jxjIp2UFavChimOpZe WKXtgG28BRD0yL47Jh9 3vCTolTZat4vapRo1Av VuJVTtWUZ3eOtaYGexu 8XqEFGwW21swCPsb4D0 IGNvbGxhcHNlOyBlbXB 6iX4pDEbveatsr0nrjd oxCqw1fl56vQYfe8O3a NE3G9GukcD7JFOsiWLk OxrwaWLIeV9navxxc3v hvgmmYjAnCKZgCWg6EN p6RSAqjEwzEuTpJO67C SN8URUzhuEvN1QxTTHd hHltElM5p1T9Hu4GS1E WKspcB2KQEQTQOLjvzN Q+CX63mb95A7AkQzcjK qs3RIKnJGO9fFL7oU8f LHBaQVkou0B2tAL3W1B dneSlff2iy7seMMXyKW wbI84bjWQgl9K4HLPfx HS4RVJyhWzuVsLxfS04 Oyc+UJHcuPrhi3RdJld kw0agh6fohUv1KebeMZ UpuvVfjUixCMJ2f6OpM z8wYUYbjGE1pGF7hA5u McOiJdC6KZwaC460ByW hpXCpQbmnF08fM8PgfR A+LRSfTtc3VIIysAleA P2rD5TrXRNbbpsmyIOo nUmvHI0yNXRtrcphIYF kaZ7mDZInD7m6IaUjCg W7IQueY1ZjWFErmcafH s37xN0kFdCmXuC4XDru J0ValkL0YKAfiPJhFDy oJYY6N53ct5W5YPDnBB HzRRY6qOT6lY4fiUsky jogbGVmdDsgdmVydGlj CIrtWNvfG673VFGlcRm nPkNvZGluZyBEYXRlOi AgMTIvMDcvMjAyMzwvd GQ+ETCiQFW6kAqeOROk bNXxWQhpDb9msYoulZg vYA7nJXSjuvsjTFTaxD 8xATOejVQliEskMA3rA EAmxcwqf023OgMaRVY6 VNDrlAYlA7FpyG2pMnE gCOKtLVIeG9MzvRZpPQ riU288OZmnWmP4MMXwx aBgH8ZtZWVuxVujIsA8 r1G1Ry9Cq4HfpfopU4C qsBLnCaXmBxujWXc4D1 RkPjwvdHI+UV39FFJpM L44PRv2QET7eSbpWAuy ROFvZ1YvcG8lVlDsKBZ kZGRkOyc+PHRhYmxlIH dpZHRoPScxMDAlJyBzd ZuhBP3vGk8hCPHoWKEt yDyjcPFuSqWqr9wyPGX zCPvzWQ3lfHuuF0DijY C1TPFsn9o0Ow25H64zM 3JvdXA+KSHmfIU3rHI0 rM4bPrXvQkT8OWdxT43 1SaIxcRTzEdlpy4mjk7 pfvHk0CwA8JOQlrfYxc TlpCAX7j7PnCi08G44b IHdpZHRoPSIxNSUiIHZ zuZexyw4aaD0tNa9+PG GayVH7rCN0eY7oKnChI mN5RBfqT769KjGzhLRi Mlxhz9kvj6ptgQl6RiW nFFYayfTubFleLWL7m9 MwTl67R2IrbVtqn4JbT mb6uo50rCCdg2S5gPG3 T5PdVFGghtdsoYFglDg iVR3qQWCxzclwZJJwpZ 8hARFnI4x2KkCjJtV8A HttC2BpcqO6ANToeEKy XBQwcHDRfV6ruucfq3n bmkpmFfKjTWUvBUs5ET u5OWVupZgoBlHgYWB6W dX0QFD6cWDwuM5deIcq jfsvkL5jQpr+KHA8gHW cwCOFXR9dKsrrmVS+PH NuQBX1gNgmSOwmPBTjs C2iVFUcU6r0MmZwSpX2 YFriK6ShtaV2APFfnQG bJIUgdBWDrF3dytnww4 jzdyftSfXtRSWvXCh9G Ee6YJNocGhqOyIqKDL5 XnE7FSF4wPChrP2jeVs cqcpopE1pZjy+QmlydG awPYN1MXi1Z7ElNux1U NWfeYjwOH8gxYSdYRcg El1mzRoybAilGA8qMHO rquklg535LrCbv1ehZX MlqDWdONpsZQL3C40md 1Q6NEDtDPWoCHC3bMZ6 aI2atPpbxcddzNPnhSj gdmVydGljYWwtYWxpZ2 62MUFbyXgnTbFkBIy1L 6ZsFko1KWHfxYloDQ0n tGEdDRsdFf3idKqhlLu dWO1zWGRhsutsu376Jn Bde7fgEJWcvZRePBpqY YP0H90xe1M5DUNlKLZv UAZ7cEL8iV9dmOfutyf gbGVmdDsgdmVydGljYW udCDnuC040UZDxgIzlL hImwCe2U1QeHdj4TKOr iQviAK7ezTOvHXnrSo6 uhNcbmHdcTP1wMGKyss bkp993TxKje2xdICWve MQuIYobTBJ8V29sk6S3 VBRfWJXqESX5bZZ7sP0 hbGlnbjogbGVmdDsgdm FnyCutMZxrEBxvT505O HRvcDsnPlBhdGllbnQg ZZtpFNs4D8DsScnwuXO +OF14IMJeXG95zABclK Xqd4gwxDb7WpBjDWBaA JC5cJvdIPwmu3MtQFFk G92xoZIqm6T0ORVrsXn vxVJoAqHaxMV4zC2oZL ordovaw0wmeswtJcosi 6kzaf78yB88D26xOOkw ZHRoPSIzMCUiIHZhbGl qpm8bpC8qNl9+PGNvbC S0gFR6zQ8mLDYwSkB5X BzxI342QmDozCEtHygh g4bhx1zzvFd1GsX6WQM hmuWvgCtzFQW1g9HlSx 33F69mUZfbEJPyXUCwW MVvVUTxcXstpp8itL5k Ii8+BOKlvWE6yGK5kH1 xXvQaVoB5ILacA957Hj HbcXObZjzoB58wH1Xyw XA+BHJmQye7IBZztGhx DZ3myDRjVQorPg4oUVB 3VuWtOkMtAUmwI0UcTO XgeqmcimtbtNM5LYRoE LSofK28Vn0ptGtkDSCo gSZIoL1lfeaad8bofpf gRwOcYWKwUAn4TYk5DO RwsHmnZgNjJLA6VsG0M DG5aAPooC2mnRyabudl qB7lI9JfOXWtmgyxVd6 8aZ2mTrWoGjR7FIaqOm c+V2KWEE9NEugyE6ESG ZLSXMQXQ4SKNTkhoDG+ WHSyJZS6oIlvUYmlECZ blJ1zFLEjT4n0VvPhNo B4MUtlZ5FyPFSichqvO w43vI5tMvVsCmP7MQeu P2PpgwS1XYTvtEAhVYp tJMU5D29cl5N6HAWeEW OqJNN3tAM4iE2uyNiar jogbGVmdDsgdmVydGlj FIfbHZzpW959DKSgpQs cVhBmBbIcWiI0YpR4V3 NeOlm4NYUzgDoyJB6re WXkZVaqIq0vyApyqZul OL4dQOGopzydDTEatD9 rKCGwgYCxlKxzEG5vSJ Zvfluvx700YvToKXY1W LXjqOSvP9SntY2rRtVy NMGoLVQuM6UcjLMcOTd dD992DZhaIiK1UAWdbb ToK2XnEDQooFolWuD8d 9O5Bz46AIZPKPAohyqi dGQ+RYRsZKE7vDfzJGo mITYcaL3sWBMiF6k0Qk YuImJ6WHtnV9GpCWOxx bwnOr15tP8yOtGrVpR2 ELrmL6TcukU2CSWknHZ bJHsxXET9S28xh5E0AY JbGESeAIW3xAU5aE7gc GlnbjogbGVmdDsgdmVy iPouAUjsFApgZ328FVB mmBkmWk7OKFX1E0CgLy w2WNVvgKnyRW3kqQQaE TzwMo5qrHtimVjnYL5y EHYqugziERJifN1gBHB esJUhbUlkUP6eVCXgvz xyz941KmRxERN7EBXkc AOdA9WmpO7jNlHwSPIq MRYuV7RehFVyQOubA91 3XFnhHuS6YZPvxoUkR3 BvEEUseGjxTxF5i9T3L y7WVDkbfDK+YL34cy45 X4CtKunfJyr3MLQyGUO 7hGE0qU0qQQInFHqah7 Q5lUT7H3NygaKwrf5de 4vuPVWtHZdoL82rkCQg r4K5XBLwmZQ0FOQmpFc iVcFfmO66Qom+PGNvbG qxu7WqVbrhv7gbp1ehi Ty2DaVzVVIpbhZvfGip ETP6m6RyKv32B84bTCo pZHRoPSIzMCUiIHZhbG fhgg9hkR9pXc0+PGNvb CU9nYW2sV9zQvAvFdB3 SPrcZ252WkQhxVJdEak oz0yzg3qkcIw4FlJfXR SuteNqfGtxXMV5y8JxI i16J5DftRuqz7FvHpm3 hd09iTJxm0U6hQQ8V9E hZGRpbmctbGVmdDogMC 8fWNKofjayUIXhpF5fJ GXjA6z4MlBzRnJ1BJjv M8AwekO5PSWkmHMvZYB hkVIKvN2gzcyun2lpgh ssHzYyKMGjVZt4ARz9H LEwhMorOmXxCII0NjW4 LAE4uOSqxN4ayQusfpv uaL2lXel+PWc5a7vtvD WxBA7puKE1HN08XE00u HOif1I8zLO7A6WhKUTl iueiyznupMZ5PVPcQFL mpV25Pk7niWlqFh9zVP QlCUQ4HSCakYIvZ4Wzq S6dFzQiOPXsTWGxW7Lv uOIdVAoqE981YErjYqZ 3XODkwwUzM4HwBGVzhW lhHgP1q8I8Li6UMD81K P32QE07pFIbv9X1hKL5 O4GtFGMtgfarguabuNH 1CGXzVTUgtO68Hw6eaY laSh7mHGUaGTM1SVYff OEcZ1PhfN3oAhDfIKBq JIQjT8XxkKEkLOxiZ92 7EYomMpK7GGGhikSwL1 RsPBOkyXxnGhG6n2S2R g6AUh06CR50CB82hCHi e3T3pBZ7E3YiOCMafpi mtrjniEQ6PHTzHVFjyD 46Ye8tfIamGj0cHENdJ ZG0RAAvoFFfX7OpfG9c VkZdQVNlTTSbB5GkiPO pJDgkY141YEhlNoA1CO RnevLgT5LvLQJqqKasJ cE0e5O9Qc8TIChlolt6 Z8VxKvryzAI+EP44RXK rRX33eNNcwJIoo2rcwN h8PnMdZLAqHAK3oKwyU Gydv3GsIOSiY39mjAJc c2U (more content not included)... Normal [facility] .Auto Diff 08-24-2023 Auto Parker % 6 % Normal 09-30 [facility] Comment on above: Performed By: #### 1 [id number], 20149000, [id number], 7026752, [id number], 9483488 ####[facility] (DEFAULT)[address] [place] [address] 93690 Baso Abs# 0.1 x10 Normal 0.0-0.2 [facility] Comment on above: Performed By: #### 1 3215385, 14006577, 0767045542, 3557841, 6648206548, 7054411 ####[facility] (DEFAULT)[address] [place] [address] 17649 Basophils/100 WBC (Bld) 1.0 % Normal 0.2-2.0 [facility] Comment on above: Performed By: #### 1 6351930, 53986253, 5914229019, 9738234, 5026696354, 5037002 ####[facility] (DEFAULT)[address] [place] [address] 23182 Eos Abs# 0.1 x10 Normal 0.0-0.4 [facility] Comment on above: Performed By: #### 1 6719000, 66128708, 4854378828, 7603359, 8957253200, 7462847 ####[facility] (DEFAULT)[address] [place] [address] 72556 Eosinophils/100 WBC (Bld) 1.1 % Normal 0.9-4.0 [facility] Comment on above: Performed By: #### 1 6208790, 42517771, 4919956717, 4066193, 6949721087, 0946773 ####[facility] (DEFAULT)[address] [place] [address] 44659 Lymph Abs# 2.1 x10 Normal 1.3-2.9 [facility] Comment on above: Performed By: #### 1 5108512, 48748099, 8746743288, 6432327, 2424269952, 5973265 ####[facility] (DEFAULT)[address] [place] [address] Lymphocytes/100 WBC (Bld) 26 % Normal 14-48 [facility] Comment on above: Performed By: #### 1 6387029, 32651026, 2862427803, 1502407, 9987149894, 3304394 ####[facility] (DEFAULT)[address] [place] [address] Parker Abs# 0.5 x10 Normal 0.0-0.8 [facility] Comment on above: Performed By: #### 1 0502953, 44732872, 5424336770, 3660147, 8347225748, 9782525 ####[facility] (DEFAULT)[address] [place] [address] Neut Abs# 5.2 x10 Normal 1.5-9.2 [facility] Comment on above: Performed By: #### 1 5529744, 90526998, 8263998239, 6626700, 8966550981, 6344204 ####[facility] (DEFAULT)[address] [place] [address] Neutrophils/100 WBC (Bld) 65 % Normal 44-88 [facility] Comment on above: Performed By: #### 1 2440304, 17664744, 0509327057, 6485908, 9355556826, 2372160 ####[facility] (DEFAULT)[address] [place] [address] CBC w/ Auto Diffon 3 Erythrocyte distribution width (RBC) [Ratio] 13.7 % Normal 11.5-15.0 [facility] Comment on above: Performed By: #### 1 2639561, 09186469, 0076260015, 4335801, 2328100167, 5186202 ####[facility] (DEFAULT)[address] [place] [address] Hematocrit (Bld) [Volume fraction] 45.6 % Normal 34.8-51.9 [facility] Comment on above: Performed By: #### 1 0633670, 86442357, 1524886751, 2724770, 3976399926, 9176976 ####[facility] (DEFAULT)[address] [place] [address] Hemoglobin (Bld) [Mass/Vol] 15.2 g/dL Normal 11.8-17.7 [facility] Comment on above: Performed By: #### 1 4189985, 64178890, 4125942004, 5527882, 9283070678, 4540823 ####[facility] (DEFAULT)[address] [place] [address] Man Diff? Auto Invalid Interpretation Code [facility] Comment on above: Performed By: #### 1 2183341, 04626417, 7226806834, 7810454, 6247945711, 8260675 ####[facility] (DEFAULT)[address] [place] [address] MCH (RBC) [Entitic mass] 29 pg Normal 24-34 [facility] Comment on above: Performed By: #### 1 1058011, 07470708, 4405244358, 2994581, 4766420430, 8745646 ####[facility] (DEFAULT)[address] [place] [address] MCHC (RBC) [Mass/Vol] 33 g/dL Normal 26-37 [facility] Comment on above: Performed By: #### 1 3936155, 26746428, 7579842460, 7039438, 9571288715, 9373228 ####[facility] (DEFAULT)[address] [place] [address] MCV (RBC) [Entitic vol] 88 fL Normal 81-100 [facility] Comment on above: Performed By: #### 1 3586947, 27688012, 0251153740, 8450342, 8830184760, 1763866 ####[facility] (DEFAULT)[address] [place] [address] Platelet 391 x10 Normal 138-427 [facility] Comment on above: Performed By: #### 1 2854547, 46938007, 1451510284, 2608909, 2584168844, 6438701 ####[facility] (DEFAULT)[address] [place] [address] Platelet mean volume (Bld) [Entitic vol] 8.5 fL Normal 6.3-10.2 [facility] Comment on above: Performed By: #### 1 9005824, 96504293, 8052062487, 3524513, 6903272920, 1268085 ####[facility] (DEFAULT)[address] [place] [address] RBC 5.19 x10 Normal 3.70-5.30 [facility] Comment on above: Performed By: #### 1 2375865, 91259641, 3405859333, 1897581, 7527276560, 8836955 ####[facility] (DEFAULT)[address] [place] [address] WBC 8.0 x10 Normal 3.5-10.5 [facility] Comment on above: Performed By: #### 1 9365820, 37219653, 0677730955, 5985823, 9186363557, 1734526 ####[facility] (DEFAULT)[address] [place] [address] CMP Standardon 08-24-2023 eGFR Non AA >60 Invalid Interpretation Code [facility] Comment on above: Performed By: #### 1 4309372, 57483791, 1111818532, 8176326, 8403380976, 7555590 ####[facility] (DEFAULT)[address] [place] [address] eGFR AA >60 Invalid Interpretation Code [facility] Comment on above: Performed By: #### 1 4511501, 81797066, 1169588685, 7681511, 4107789939, 7019428 ####[facility] (DEFAULT)[address] [place] [address] Albumin [Mass/Vol] 4.4 g/dL Normal 3.5-5.0 [facility] Comment on above: Performed By: #### 1 4830345, 10478576, 7946402124, 0694109, 2373727443, 1781249 ####[facility] (DEFAULT)[address] [place] [address] Alk Phos 60 IU/L Normal 32-91 [facility] Comment on above: Performed By: #### 1 9004792, 06110683, 9613004985, 7239313, 0351331316, 4064726 ####[facility] (DEFAULT)[address] [place] [address] ALT [Catalytic activity/Vol] 52.0 U/L Normal 17.0-63.0 [facility] Comment on above: Performed By: #### 1 5726756, 08950446, 4639462324, 5850050, 3727513392, 4878849 ####[facility] (DEFAULT)[address] [place] [address] AST [Catalytic activity/Vol] 32 U/L Normal 15-41 [facility] Comment on above: Performed By: #### 1 1780716, 88472069, 3145254898, 2004409, 8315314771, 3813124 ####[facility] (DEFAULT)[address] [place] [address] Bili Total 0.9 mg/dL Normal 0.3-1.2 [facility] Comment on above: Performed By: #### 1 0460554, 87324941, 4098112716, 0565417, 2691815302, 8956526 ####[facility] (DEFAULT)[address] [place] [address] Calcium [Mass/Vol] 9.4 mg/dL Normal 8.9-10.3 [facility] Comment on above: Performed By: #### 1 9388854, 58238190, 7429135399, 9156083, 8243518500, 7448839 ####[facility] (DEFAULT)[address] [place] [address] 19047 Chloride [Moles/Vol] 109 mmol/L Normal 101-111 [facility] Comment on above: Performed By: #### 1 8380353, 78280349, 6197698347, 1298575, 9708941742, 3348081 ####[facility] (DEFAULT)[address] [place] [address] 92160 CO2 [Moles/Vol] 25 mmol/L Normal 21-32 [facility] Comment on above: Performed By: #### 1 9082072, 31758441, 7975137035, 0777334, 3963931116, 8330242 ####[facility] (DEFAULT)[address] [place] [address] 51529 Creatinine [Mass/Vol] 0.74 mg/dL Low 0.90-1.30 [facility] Comment on above: Performed By: #### 1 0584269, 37120183, 5955897000, 2483260, 1777616080, 5431378 ####[facility] (DEFAULT)[address] [place] [address] 63420 Glucose [Mass/Vol] 105.0 mg/dL Normal 74.0-118.0 [facility] Comment on above: Performed By: #### 1 3037123, 20272649, 2666983921, 3721335, 8384679525, 7292882 ####[facility] (DEFAULT)[address] [place] [address] 44299 Potassium [Moles/Vol] 4.0 mmol/L Normal 3.6-5.1 [facility] Comment on above: Performed By: #### 1 8335733, 69870642, 5409442453, 9620679, 9419540063, 9230034 ####[facility] (DEFAULT)[address] [place] [address] 50437 Protein [Mass/Vol] 7.5 g/dL Normal 6.5-8.1 [facility] Comment on above: Performed By: #### 1 8116218, 92918297, 8208968923, 6903422, 3986561487, 5410540 ####[facility] (DEFAULT)[address] [place] [address] 83935 Sodium [Moles/Vol] 140.0 mmol/L Normal 136.0-144.0 [facility] Comment on above: Performed By: #### 1 6461133, 89328427, 9305326859, 0936436, 2675922698, 6085846 ####[facility] (DEFAULT)[address] [place] [address] 14954 Urea nitrogen [Mass/Vol] 10 mg/dL Normal 8-26 [facility] Comment on above: Performed By: #### 1 4382726, 96442925, 1728461240, 7766640, 5412491820, 2546327 ####[facility] (DEFAULT)[address] [place] [address] 57969 Albumin/Globulin [Mass ratio] 1.4 {ratio} Normal 1.4-2.6 [facility] Comment on above: Performed By: #### 1 8154886, 23168902, 4621334525, 4428583, 9068385505, 2829854 ####[facility] (DEFAULT)[address] [place] [address] 54312 Anion gap [Moles/Vol] 10.0 mmol/L Normal 5.0-19.0 [facility] Comment on above: Performed By: #### 1 [id number], [id number], [id number], 8158068, [id number], 7351574 ####[facility] (DEFAULT)[address] [place] [address] 42598 Globulin (S) [Mass/Vol] 3.1 g/dL Normal 1.5-4.3 [facility] Comment on above: Performed By: #### 1 [id number], 83534251, [id number], 1013609, [id number], [id number] ####[facility] (DEFAULT)[address] [place] [address] 79272 Osmolality 279 mOsm/L Invalid Interpretation Code [facility] Comment on above: Performed By: #### 1 [id number], [id number], [id number], 2951471, [id number], [id number] ####[facility] (DEFAULT)[address] [place] [address] 41974 Urea nitrogen/Creatinin e [Mass ratio] 13.5 mg/mg Normal 4.6-16.2 [facility] Comment on above: Performed By: #### 1 [id number], 31005439, [id number], 1528106, [id number], 8192714 ####[facility] (DEFAULT)[address] [place] [address] HgbA1c Standardon 08-24-2023 .Hb 16.6 Invalid Interpretation Code [facility] Comment on above: Performed By: #### 1 [id number], 91697051, [id number], 9688254, [id number], [id number] ####[facility] (DEFAULT)[address] [place] [address] .Hgb A1c 0.59 g/dL Invalid Interpretation Code [facility] Comment on above: Performed By: #### 1 [id number], 96684691, [id number], 4740267, [id number], 4477774 ####[facility] (DEFAULT)[address] [place] [address] Glucose [Mass/Vol] 108 mg/dL Invalid Interpretation Code [facility] Comment on above: Performed By: #### 1 [id number], 20811319, [id number], 2442655, [id number], 0606060 ####[facility] (DEFAULT)[address] [place] [address] HbA1c (Bld) [Mass fraction] 5.4 % Normal 4.6-6.2 [facility] Comment on above: Performed By: #### 1 [id number], 17643639, [id number], 8252915, [id number], 6282225 ####[facility] (DEFAULT)[address] [place] [address] Reminder Messageson 08-24-20 Reminder Messages -- From: MILAN NAILS DO To: [facility] Clinical Pool ([facility]); Sent: 08/24/2023 12:33:59 EST ! [...] and notified of results. Verbalized understanding. Normal [facility] Reminder Messages -- From: MILAN NAILS DO To: [facility] Clinical Pool ([facility]); Sent: 08/24/2023 12:24:35 EST ! [...] % (14 - 48) 08/24/2023 10:17 Auto Parker % 6 % (1 - 12) 08/24/2023 10:17 Auto Eos % 1.1 % (0.9 - 4.0) 08/24/2023 10:17 Auto Baso % 1.0 % (0.2 - 2.0) 08/24/2023 10:17 Neut Abs# 5.2 x103/mcL (1.5 - 9.2) 08/24/2023 10:17 Lymph Abs# 2.1 x103/mcL (1.3 - 2.9) 08/24/2023 10:17 Parker Abs# 0.5 x103/mcL (0.0 - 0.8) 08/24/2023 10:17 Eos Abs# 0.1 x103/mcL (0.0 - 0.4) 08/24/2023 10:17 Baso Abs# 0.1 x103/mcL (0.0 - 0.2) Patient called and notified of results. Verbalized understanding. Normal [facility] T4, Totalon 08-24-2023 T4 [Mass/Vol] 9.52 ug/dL Normal 6.09-12.23 [facility] Comment on above: Performed By: #### 1 [id number], [id number], [id number], 1182778, [id number], [id number] ####[facility] (DEFAULT)[address] [place] [address] TSHon 08-24-2023 TSH Qn 1.11 m[IU]/L Normal 0.45-5.33 [facility] Comment on above: Performed By: #### 1 [id number], [id number], [id number], 7360802, [id number], 4077545 ####[facility] (DEFAULT)[address] [place] [address] Coding Summaryon 08-02-2023 Coding Summary HTMLBase 64 TjnkwjqfSGo8mUm+PGh lYWQ+CR3IITZqS36jaA DtoZ1qK5MKOIrTDuhsC APDUUhOWmPoewBtNE8n aXNjZXJu IC8+RQ7fQGFqCgekbXA fb7G5jXW0T52qwf0lLS rqlET5VXEdYuWselcbk 0uxjCs4XBqhOybaEyKu KWWtwH81UKH4oH71Kg5 1lQWlxDIsp7ugaWq3Xe PmBEPvLFN8uSbbXNupg 1JdXZZuC92tkYEdo1Y9 IGNvbGxhcHNlOyBlbXB 6tU3mXSgrfmqwr5bcpj yrXoh9ds51hOFdf4T1b XF3N9AikvV0MHYmxQNi YssjrEYKxX7qrhenc2a nqgrxLuZlXLFnZNl5WM w6FPVufYcfNiFaET69O CZ8LWEzsgFzB5NeWYCs dWzcUrT3k3G6Gi2IG8R GRmsfO0EDFUZMYOugzI Q+AE07nl25Z3BnIesdT kl8TCPdHMZ8zWR4fJ6u DEKyWQffq4D8uKW8Y9N udeQewo0lg3ioDVNcNW qdX02csLUcf7O1TBZuw PP0ANYnbWlzOcBduV54 Oyc+FBKcqQnxf8MwTvu nc1hdr1mqzSk8UaorPJ LqghWmiUmrZPX6u5VbJ p6bLWFgcUP2oYF0uC0n ZnXmPmY6XHhuA235TfN lhUNePlusC51pP6ZzdI A+KHQlHyn4YVZvdTiuG P2mL2KjMIKzxqavfLHh gDlcNN6iGNBkqupcERV upQ7uSLOgP1d9ErQcAh S3KKlaU8AbCPBvdfttC n58oH0dKdWrBsH4WPwc X9SiusD7LHNvbBMjBSr lLGZ7F07bs1M4LADeNY HwDIF9hXU4tD6faAgsv jogbGVmdDsgdmVydGlj MLfzASfrR215UCNuxNq nPkNvZGluZyBEYXRlOi AgMTEvMTQvMjAyMzwvd GQ+HDMxQTC7kXuvVLIs wSLuWAqrGb4eqAvrjOv fLQ8aJPCilzooAWFmhB 4bELLnlOFsiUepKT6gO NIbadifx173EbRhXRL4 RIPnvDOfB8IldN3jEsV eUNMqDWLkI1FxrZYhWO kbJ091HIimWuZ3IPMtl lDcU3LzHDNivKiwAqA5 t8E9Cw1Kg7VasmpwD8Z ojGLrQfBfYmwpBUg4J1 RkPjwvdHI+AC36DAHwP J82CWo5TSX9pKskIBdr WIFqD5GvjM5hFsOgPNJ kZGRkOyc+PHRhYmxlIH dpZHRoPScxMDAlJyBzd PcfSV5qHo6lGMMdDYFp wOwonCFfAkOrb2cvQJF tZEhpLY4peOkaA3KvwN W2ISRxs8j3Nh80D86dQ 3JvdXA+VNVthQU3fKP3 uX1gWsZkUhS2YCuuT46 2WzZydCYlYqeen4wbj8 vgvDg1AkD2YYOinaNnn BqxSOT8c6WoAp37T15t IHdpZHRoPSIxNSUiIHZ odYafwq6iqO7dDk6+PG UtvBF6lLC2fG5cEgDnV bV2MShoL449IoImnNPw Ouwsx6jcj4zsxFl5ZtK zPXAthfPvaFcpXLB9g1 HuTb13T4YepDnid5DsZ gl0ji27wQTcp3S9zPH6 T7XeNOAwpgqweILfiCt pHT3eAYBucssuYTVruW 3dQEGwX1a4ArIoElW9C HtuM5HolmC3PHIlvUSx RFJxgUWRyO9racihm5c couhbMcRoBIGhTJy0EL g9HYIsaNwuPgPbBXB6L cL5BBR4iNYybX4hcPby sxlgdA3gJxs+QYJ7fMI lfGAKOR9rRfyvbSJ+PH KiQXA2sNkvGTvzZFTym R4rKGEbD0x6RyDwYxI3 BHvyV1ZnulW6ERIvxXZ pDIRxuOTKxB2tycbia9 zaeqafJvLwZHSbZGs6W Jf1VEOzuFttNpUsXXP0 UyZ8OJP0wSDlvU0vuEw vykxabM5zCgm+QmlydG lsKMB6YRb6N4GvZqs7E LAekUunTC3cwCGnCMii Eg1wxLowbShxUM4tZXE ildnii743XjEcj5grLD NhyMTdTQqgZHW9Y14ku 2N9ZZXtGCXxGAX9jIO8 eE8idKhrchclxQDfjJu gdmVydGljYWwtYWxpZ2 16CRTngDycFfWwKGy0U 3KgKfs6CHGqtJlpEB0m aUMzKKbbVx2acRyxzKq tFD9dPTEaezkfq120Ch Jkd2ssNOEnwCAzMHfoG LO4M21af4N5VUIjOTTq VFN7cNH2oZ5naUhdeld gbGVmdDsgdmVydGljYW cxDKerS365VEQsjRqqD qNesKs5G3JgZqx9QJZt gBqkHV2ytWYgGMqgLa7 hoYxjoEruQL5nRDGyhh jdg697DiJxo6qcJEDrs CYjICdhYTC6E08na9Q2 MQFsOADjAFV3wPY1mR9 hbGlnbjogbGVmdDsgdm HtjBtoVDamYYriQ359R HRvcDsnPlBhdGllbnQg OTdkVFo5F1JbOiqksYU +HC27XKLfIM28iRVgnS Njj7zipPv2UhQkXTQfT LK9aSrqXQvoc4XtDMGz W53tfYCma1Q5MZIacCw foTFoKnGvjDT1kK1vHV qqmhlbp7epjbfuEtxpc [id number] ZHRoPSIzMCUiIHZhbGl yme1ugD4kXm8+PGNvbC X5yUV5qV0aKFSjEkU1Y ZjpS813AqWlkRHeDfrf v4vua4afaOc0EyZ2LFZ facChrAzaWIO2j3EgNt 70P00tUZvvUAIeMJQiF PKqONOapXyams7pkG3x Ii8+QHSovLT9nLW7zX1 mKzXpFwC2IJpnC989Np JjnRKiMeyqV82hD3Mqk XA+UBVgWpu9QAEmzLsy DR6lzYMpBTbmBh4bUYU 2FcZcXpHbEQhhN3XwPP HjdvcbkuuzeDA3RLQdS FLkfA07Ox9iqCogDJLu iDJPzG8dnctpn1nicrw aXzFnFBWqLLh3GZv7OF CqyGsjUkJvGVH3ElY2L TC0xTLgyL6nxYkhedtx oB6yN2JtFGQdbrrpBn7 8gQ0xDqElHnN3IQkpTs c+G7ZIRP7OMsiaV4JKA RVUWFHZJ9WIYKxhvZK+ IPBnCKI7pEbgIKmgFHP arH8jRWYzI4x9JjLcOa A0JGokN5LePPQzctcjZ s37rZ9cLuDoUaU5PUzm H9PvyuN3XSSjhMBjSRw lBWI8F63go5P1EYQpWD QoEJU1nIB5qM4qcTefc jogbGVmdDsgdmVydGlj PHexNEyhM168THSagNm rYvYjCjNrCaB4AnL7Q0 QfWfv7YGPsbNgmMI9xv MMbQMorSg5nrZbjcTdp VX0uKBBwmrzuFYKjoA3 sLLNowDFgyVkqNY9bXY Oiyxron143OfSkCFY4W EPhiAPeB3YhdP2sXcOg ZDYeQXCmX6WlxJKrYBy dA619LDfbZiD3OUErxd OcI0VoEJFycXwnHaZ7g 8D8Se31MNRAETTdrukt dGQ+JJNuBNI8uAffIPr aKLIkgA9pXIFpB7c4Bo OlLvJ6SApwB6TgHZZxo byaUc77eC6qPgNqQnL4 OSczO1ItxhQ7MPZwwDN cGVypIIK1O32dv3Y5EA KuVJZqQNN6pRF2uF9dk GlnbjogbGVmdDsgdmVy sIcrIPpnPLrcI755MBV evTjkYw6VJSC7W4WtSr s3RMJamVnvWT6wgCArV YrbNt5oqHzpdRcsRU2n BRBzgkjyOLTgiI2kUVI gvERmaCjjUA6qCCWesb rgc877PfWqAUX1HLEdo GEfW6WbwY3wUdStVHSc QJEwU8BjcJDhWVhuX11 7JCmzLzN9XTKvepDfN3 CcYKYyhCoiDiX0p8J0W v0AXTlkhPM+QQ67ca44 A4JhMvubSuz4LEMsNXF 1kDY4vL0lCAObDDhrz3 X4uUE9Q7ElhgQcgb4xz 3puQYZzXMozB50vkKKn k1Y3XNNvcQN8LYGdmOp gXaCexV32Iql+PGNvbG czu2JrRxefs2gdf9hwc Ni8SdMgOYEcqhIkeLhw ODN4s8GeRu93Y04oCYb pZHRoPSIzMCUiIHZhbG oxwm0tbO2nFf0+PGNvb SK0pRT7wD0iPiPtDfG8 RItjT847JhJcuLUhGdv tp5ffp5qcgMa3WsRlFW AiqxYmtJsdHRK7t4LmZ i31R0KviVdns9LcBdo0 nt18lWCla4O8gCW7Q0B hZGRpbmctbGVmdDogMC 5uYFTnizdlZMEgkD8qA SIfH5g7IuHwHoF0UPbx E7HwsjX2VZNgdDNvQSS vaHIAhW8joarue4lboj gxLvMaZMBpKNb3RVt1E VVgiGnvMkGxBYW1EsX8 CYK4fYAexQ4yaKvfbdd zlE8oTqp+SEe8n1jvgD IvUZ8zkEV2EC74VB78u ZCvk1D0pLC0Q2ZyZNLw arxrliivlHK3QAOaVHB kuV75Dr4lgVhmLa4rUG UjAMS7DEEtbLYxQ5Gyq V9uJxLkSSWsYDOdP5Mb bOPnUOfuF150AVyvByI 6IQPpwbDhK3YyXYBhhO axSiG3x1W4Xs3FAN21M Y91YM56xYElk0J4qWG1 N0UhFXFcbqigkdtecHS 7UTVdKNDjrN15Mz7lhV nhRi6dKFAgLPJ0QQGop CPfY4LfpZ3pCmAjJKLs GAJuA0BqsJUdFKtgP26 0GMszWjY3JCDarhLtT3 TkMJSaiBzfRmM5z1F3N w7ABf87WQ28NB32wOEw v7S0gVQ7O2IaRWNybqa igbfcoGU5MJAiVUNebF 57Xs2djOxcKa6wQJJaZ HJ1JVEfoKSoB8WqjV9n OmRlEOLgHOOcF1XeoGT fSDqxG420KZdbGjQ7TQ EkqnZvV9YfVUCdtBztV cJ3r5S7Bq3NXRrxthb3 J2ApKrrfgJU+DF50KWA zFK59oGZgcKQqq6cenK m9HsCwNIBzXSN7sAwgA Fstz7BnOFYcE00tnOEd c2U (more content not included)... [facility] ED Clinical Summaryon 2022 ED Clinical Summary [facility] [address] [place] [address] Clinical Summary PERSON INFORMATION Name: DION ANDRES Age: 47 Years Sex: MALE : 1975 MRN: Acct#: Visit Reason: UC - Laceration; LACERATION ON LEFT HAND Arrival: 07/26/2023 15:38:23 Discharge: 07/26/2023 17:27:00 LOS: 000 01:49 Check In: 07/26/2023 15:38:23 Checkout: 07/26/2023 17:27:00 Address: [address] [place] [id number] PCP: MILAN NAILS DO PROVIDER INFORMATION Provider [...] Follow-Up: With: Address: [place]: [place] [address] [place] [id number] Within 3 to 5 days Comments: Diagnosis [...] wound to hand Patient Understands: Yes - Patient/family/restorative care technician verbalizes understanding of instructions given Comment: [facility] ED Patient Summaryon 023 ED Patient Summary [facility] ? [facility]gent Care [address] [place] [address] PATIENT DISCHARGE INSTRUCTIONS Patient Information Name: DION ANDRES Age: 47 Years Date of : 1975 Reason For Visit: UC - Laceration; LACERATION ON LEFT HAND Arrival Time: 07/26/2023 15:38:23 Primary Care Physician: MILAN NAILS DO Attending Physician: Rashad Bowman Comment: Patient Education With: Address: When: MILAN NAILS DO [address] [place] [id number] Within 3 to 5 days Comments: Diagnosis [...] and water are not available, use hand manager telemarketing. ? Change your dressing at least once [...] at home: Medicines ? Take or apply rkol-nfm-vwdfbuv and prescription medicines only as told by [...] is impor (more content not included)... [facility] [place] 023 Urgent Care Record [facility] ? Urgent Care [address] [place], [place] [id number] PATIENT DISCHARGE INSTRUCTIONS Patient Information Name: DION ANDRES Age: 47 Years Date of : 1975 Reason For Visit: UC - Laceration; LACERATION ON LEFT HAND Arrival Time: 07/26/2023 15:38:23 Primary Care Physician: MILAN NAILS DO Attending Physician: Rashad Bowman Comment: Visit Diagnosis: Diagnoses This Visit Puncture wound to hand (S61.439A) UC - Laceration ([id number]) If you received any narcotics, sedation, or [...] legal documents With: Address: When: [place] [address] Within 3 to 5 days Comments: Diagnosis [...] and treatment you received today in the [facility] were for an urgent problem and are not intended as complete care. It is important for you to follow up with a doctor, nurse practitioner, or physician?s assistant professor of chemistry for ongoing care. If your symptoms become [...] so we can reach you if necessary. [facility] has provided you with a complete list of medications post discharge. Please inform your chief load dispatcher/provider of your visit and for further instruction on these medications. Any specific questions regarding your chronic medications and dosages should be discussed with your primary care physician(s) and/or pharmacist. [facility] [address], [address] [place], [place] [id number], [phone] amoxicillin-clavula ld (amoxicillin-clavul anate 875 mg-125 mg [...] release capsul (more content not included)... [facility] XR Hand Complete Lefton [...] DO 07/26/23 4:50 pm Technologist: Joseph STEPHENS [facility] LUMBAR SPINE 6 OR MORE Son 01-14-2022 LUMBAR SPINE 6 OR MORE S [facility] Department of Radiology [address] [place] [id number] Patient Name: DION ANDRES : 1975 [...] , Ordering Provider - A JER LOPEZ FLOWER SHOP MANAGER , Exam: LUMBAR SPINE 6 OR [...] radiographically. Electronically signed: Rashad Adler. Transcribed by: [email or web address], User Resident: Electronically Signed by: RASHAD ADLER @ 01/15/2022 11:40 AM Normal [facility] Comment on above: Order Comment: , ap, lat, flex, ex, obliques, r/o instability or pars defect , Views (X-RAY, LUMBAR SPINE): AP, Lateral, L5-S1 Spot, Obliques, Flexion, Extension , ap, lat, flex, ex, obliques, r/o instability or pars defect , Views (X-RAY, LUMBAR SPINE): AP, Lateral, L5-S1 Spot, Obliques, Flexion, Extension , , , Ordering Provider - Sherice LOPEZ FLOWER SHOP MANAGER , Vital Signs Date Time Vital Sign Value Performing Clinician Facility 09-23-2023 10:05-0500 Body height Abbey Robin Other [facility] Other 09-23-2023 10:05-0500 Body mass index (BMI) [Ratio] 44.21 kg/m2 Abbey Robin Other [facility] Other 09-23-2023 10:05-0500 Body temperature 98.6 [degF] Abbey Nietomond Other [facility] Other 09-23-2023 10:05-0500 Body weight 135.81 kg Abbey Robin Other [facility] Other 09-23-2023 10:05-0500 Diastolic blood pressure 82 mm[Hg] Abbey Robin Other [facility] Other 09-23-2023 10:05-0500 Respiratory rate 18 /min Abbey Robin Other [facility] Other 09-23-2023 10:05-0500 SaO2% (BldA) [Mass fraction] 95 % Abbey Robin Other [facility] Other 09-23-2023 10:05-0500 Systolic blood pressure 152 mm[Hg] Abbey Nietomond Other [facility] Other 04-15-2023 10:30-0400 Body height Marisol Zelaya Other [facility] Other 04-15-2023 10:30-0400 Body mass index (BMI) [Ratio] 45.33 kg/m2 Marisol Zelaya Other [facility] Other 04-15-2023 10:30-0400 Body temperature 97.6 [degF] Marisol Zelaya Other [facility] Other 04-15-2023 10:30-0400 Body weight 139.26 kg Marisol Nathalie Other [facility] Other 04-15-2023 10:30-0400 Diastolic blood pressure 80 mm[Hg] Marisol Zelaya Other [facility] Other 04-15-2023 10:30-0400 Respiratory rate 18 /min Marisol Nathalie Other [facility] Other 04-15-2023 10:30-0400 SaO2% (BldA) [Mass fraction] 98 % Marisol Nathalie Other [facility] Other 04-15-2023 10:30-0400 Systolic blood pressure 125 mm[Hg] Marisol Zelaya Other [facility] Other Encounters Encounter Date Encounter Type Care Provider Facility Start: 07-02-2024 ambulatory MILAN P HOUSE Facilit y:[facility] Start: 06-28-2024 ambulatory MILAN P HOUSE Facilit y:[facility] Start: 05-24-2024 End: 05-24-2024 ambulatory MAURIZIO PATRICK Not Available Start: 04-18-2024 End: 04-18-2024 ambulatory MILAN P HOUSE Facility:[facility] Start: 04-18-2024 End: 04-18-2024 ambulatory COMFORT JIMENEZ Not Available Start: 04-09-2024 End: 04-09-2024 ambulatory DO MILAN P HOUSE Facility:[facility] Start: 02-22-2024 End: 02-22-2024 ambulatory MILAN P HOUSE Facility:[facility] Start: 01-23-2024 End: 01-23-2024 ambulatory MILAN P HOUSE Facility:[facility] Start: 01-16-2024 End: 01-16-2024 ambulatory MILAN P HOUSE Facility:[facility] Start: 01-10-2024 End: 01-10-2024 ambulatory DO MILAN P HOUSE Facility:[facility] Start: 11-24-2023 End: 11-24-2023 ambulatory DO MILAN P HOUSE Facility:[facility] Start: 09-23-2023 End: 09-23-2023 ambulatory Abbey Robin Other [facility] Other Start: 09-23-2023 Office outpatient visit 15 minutes Abbey Nietomond [facility] Start: 08-24-2023 End: 08-24-2023 ambulatory MILAN P HOUSE Facility:[facility] Start: 08-24-2023 End: 08-24-2023 ambulatory MILAN P HOUSE Facility:[facility] Start: 08-15-2023 End: 08-15-2023 ambulatory MILAN P HOUSE Facility:[facility] abby Start: 07-26-2023 End: 07-26-2023 ambulatory MILAN P HOUSE Facility:[facility] Start: 04-15-2023 End: 04-15-2023 ambulatory Marisol Zelaya Other [facility] Other Start: 04-15-2023 Office outpatient ne w [...] Facility:[facility] Start: 03-16-2022 End: 03-16-[address] ULCY GIL . Facility:[facility] Start: 03-09-2018 Ambulatory [place] [facility] Facility :1532 Start: 03-08-2018 Ambulatory [place] [facility] Facility :1532 Payers Date Payer Category Payer Medicare [id number] 2.1 [id number] 1975 Unknown [id number] 2.16.84 0.1.040691.3.579.2.593 1975 Unknown [id number] 2.16.84 0.1.058846.3.579.2.593 1975 Unknown [id number] 2.16.84 0.1.559971.3.579.2.593 1975 Unknown [id number] 2.16.84 0.1.494968.3.579.2.593 1974 Unknown [id number] 2.16.84 0.1.471133.3.579.2.593 1975 Unknown [id number] 2.16.84 0.1.025042.3.579.2.593 1974 Unknown [id number] 2.16.84 0.1.177767.3.579.2.593 1974 Unknown [id number] 2.16.84 0.1.178388.3.579.2.593 1974 Unknown [id number] 2.16.84 0.1.827366.3.579.2.593 1974 Unknown [id number] 2.16.84 0.1.972425.3.579.2.593 1974 Unknown [id number] 2.16.84 0.1.776932.3.579.2.593 1974 Unknown [id number] 2.16.84 0.1.153559.3.579.2.593 1974 Unknown [id number] 2.16.84 0.1.836814.3.579.2.593 1974 Unknown [id number] 2.16.84 0.1.708991.3.579.2.1259 1974 Unknown [id number] 2.16.84 0.1.619248.3.579.2.1259 1974 Unknown [id number] 2.16.8 40.1.353042.3.579.2. 1974 Unknown [id number] 2.16.8 40.1.303555.3.579.2. 1974 Unknown [id number] 2.16.8 40.1.887686.3.579.2. 1974 Unknown [id number] 2.16.8 40.1.043592.3.579.2. 1974 Unknown [id number] 2.16.8 40.1.744341.3.579.2. 1974 Unknown [id number] 2.16.8 40.1.051874.3.579.2. 1975 Unknown [id number] 2.16.8 40.1.428193.3.579.2. 1975 Unknown [id number] 2.16.8 40.1.316445.3.579.2. 1975 Unknown [id number] 2.16.8 40.1.271660.3.579.2. 1975 Unknown [id number] 2.16.8 40.1.530216.3.579.2. 1960 Medicare [id number] Unknown [id number] Social History Date Type Detail Facility Unknown if ever smoked [facility] Other Sex Assigned At Sex Assigned At Bir th [facility] Other Clinical Notes 04-15-2022 to 05-22-2024 Note Date & Type Note Facility 05-22-2024 Note Entered by DYLAN NAILS DO on May 22, 2024 08:21:07 EDT From: MILAN NAILS DO To: [facility] Sent: 05/22/2024 08:21:07 EDT Subject: Medication Management Submitted: Complete:SUMAtriptan (SUMAtriptan 100 mg oral tablet) Signed by MILAN NAILS DO 05/22/2024 08:21:00 EDT Approved with modifications: SUMAtriptan (sumatriptan 100 mg tablet) TAKE 1 TABLET BY MOUTH DAILY Qty: 12 EA Days Supply: 12 Refills: 2 Substitutions Allowed Route To Pharmacy - [facility] From: [facility] To: MILAN NAILS DO Sent: May [...] Refills: 2 Substitutions Allowed Notes from Pharmacy: [facility] 05-02-2024 Note Entered by DYLAN NAILS DO on May 02, 2024 11:28:48 EDT From: MILAN NAILS DO To: [facility] Sent: 05/02/2024 11:28:48 EDT Subject: Medication Management Submitted: Complete:fexofenadine (fexofenadine 180 mg oral tablet) Signed by MILAN NAILS DO 05/02/2024 11:28:00 EDT Approved with modifications: fexofenadine (fexofenadine 180 mg tablet) TAKE 1 TABLET BY MOUTH DAILY Qty: 30 tab(s) Days Supply: 30 Refills: 5 Substitutions Allowed Route To Pharmacy - [facility] From: [facility] To: MILAN NAILS DO Sent: May [...] Refills: 5 Substitutions Allowed Notes from Pharmacy: [facility] 02-22-2024 Note Entered by DYLAN NAILS DO on February 22, 2024 11:51:43 EDT From: MILAN NAILS DO To: [facility] [address] Sent: 02/22/2024 11:51:43 EDT Subject: Medication [...] 25 Refills: 5 Substitutions Allowed Route To [facility] Approved SUMAtriptan (sumatriptan 100 mg tablet) TAKE 1 TABLET BY MOUTH DAILY Qty: 12 EA Days Supply: 12 Refills: 2 Substitutions Allowed Route To [facility] Approved with modifications: propranolol (propranolol ER 80 mg capsule,24 hr,extended release) TAKE 1 CAPSULE BY MOUTH DAILY Qty: 30 cap(s) Days Supply: 30 Refills: 5 Substitutions Allowed Route To [facility] Patient matched by MILAN NAILS DO on 02/22/2024 11:50:58 EDT From: [facility] To: MILAN NAILS DO Sent: February [...] Refills: 2 Substitutions Allowed Notes from Pharmacy: [facility] 01-23-2024 Note Entered by DYLAN NAILS DO on January 23, 2024 13:46:16 EDT From: MILAN NAILS DO To: [facility] Sent: 01/23/2024 13:46:16 EDT Subject: Medication [...] 11 Substitutions Allowed Route To Pharmacy - [facility] Patient matched by MILAN NAILS DO on 01/23/2024 13:45:54 EDT From: [facility] To: MILAN NAILS DO Sent: January [...] Refills: 11 Substitutions Allowed Notes from Pharmacy: [facility] 01-16-2024 Note Entered by DYLAN NAILS DO on January 16, 2024 14:24:31 EDT From: MILAN NAILS DO To: [facility] Sent: 01/16/2024 14:24:31 EDT Subject: Medication Management Documented Complete:omeprazole (omeprazole 20 mg oral delayed release capsule) Signed by MILAN NAILS DO 01/16/2024 14:24:00 EDT Approved with modifications: omeprazole (omeprazole 20 mg capsule,delayed release) TAKE 1 CAPSULE BY MOUTH DAILY Qty: 30 cap(s) Days Supply: 30 Refills: 11 Substitutions Allowed Route To Pharmacy - [facility] Patient matched by MILAN NAILS DO on 01/16/2024 14:24:11 EDT From: [facility] To: MILAN NAILS DO Sent: January [...] Refills: 11 Substitutions Allowed Notes from Pharmacy: [facility] 11-07-2023 Note Entered by DYLAN NAILS DO on November 07, 2023 07:53:45 EST From: MILAN NAILS DO To: [facility] Sent: 11/07/2023 07:53:45 EST Subject: Medication [...] 5 Substitutions Allowed Route To Pharmacy - [facility] Approved with modifications: lisinopril (lisinopril 20 mg tablet) TAKE 1 TABLET BY MOUTH DAILY Qty: 90 tab(s) Days Supply: 90 Refills: 5 Substitutions Allowed Route To Pharmacy - [facility] From: [facility] To: MILAN NAILS DO Sent: November 06, 2023 9:32:22 AM STEWARD/STEWARDESS BATH Subject: Medication Management Due: November 07, 2023 12:07:40 AM STEWARD/STEWARDESS BATH On Hold Pending Signature Drug: fexofenadine (Leigh [...] Refills: 5 Substitutions Allowed Notes from Pharmacy: [facility] 09-23-2023 Evaluation note Encounter [...] 3 days Sep, Bronchitis (ICD-10 - J40) [facility] Other 11-07-2023 NotePatient Education Materials Follows: Sutured [...] and water are not available, use hand manager telemarketing. ? Change your dressing at least once [...] at home: Medicines ? Take or apply cqcu-fde-buqrsca and prescription medicines only as told by [...] by your health care provider. (morecontent not included)...[id number]* Encounter Date Diagnosis Assessment Notes [...] is not contagious from itself or drainage. [facility] Other 05-30-2023 NoteCONSULTATION CONSULTATION DATE: 02/15/2023 TO: [...] the lower extremities. MEDICATION: Current medication includes Warner 5 mg t.i.d. p.r.n. Patient reports it [...] our patients to inform us about any hill-rqk-mqvfvwi medications or herbal remedies/nutritional supplements/alternative remedies. 2. [...] treatment options with their primary care provider.[id number] Note CONSULTATION CONSULTATION DATE: 01/06/2023 TO: Dr. [...] our patients to inform us about any eudl-hbm-sygntvi medications or herbal remedies/nutritional supplements/alternative remedies. 2. [...] treatment options with their primary care provider.[facility] [id number] Note CONSULTATION PROCEDURE DATE: 10/06/2022 PREOPERATIVE DIAGNOSIS: [...] will be followed up in the office.[facility] [id number] NoteCONSULTATION CONSULTATION DATE: 08/26/2022 HISTORY OF PRESENT [...] his muscle relaxer. Our clinic prescribes his Warner 5/325 b.i.d. and diclofenac 75 mg b.i.d. Patient does ambulate with a cane, which is not new for him. The patient is concerned as he feels he has had a weight gain recently. The patient feels he is having some spasming in his lower back as well, as he describes his pain as a deep, dull ache, /10. He denies any recent injuries or falls. [...] normally does. All questions were answered today.[facility] [id number] NoteCONSULTATION CONSULTATION DATE: 07/22/2022 HISTORY OF PRESENT [...] a cane. He has seen Neurosurgery at [facility] in the past, which they feel, at this time, he is not a surgical candidate and to be managed by Pain Management. He current does see Dr. Patrick at [facility] as well. Activities that aggravate his pain are pulling, sitting, walking, lying down and bending. He will alternate heat and ice which he feels does not make a significant difference. Medications include trazodone 50 mg q.h.s., tizanidine 4 mg b.i.d., Lyrica 50 mg t.i.d., diclofenac 75 mg b.i.d. and Warner 5/325 b.i.d. He does attend pool therapy at the [facility] 2-3 times a week, which [...] be followed up in the clinic thereafter.[facility] 04-22-2022 NoteCONSULTATION PROCEDURE DATE: 04/22/2022 PRE [...] will be followed up in the office.[facility] [id number] NoteCONSULTATION CONSULTATION DATE: 04/15/2022 This is a [...] mg b.i.d., Lyrica 50 mg b.i.d. and Warner 5/325 b.i.d. He is complaining of trouble [...] is gained for his trigger point injections.[facility] general Narrative - Reported* Type Description Date Medical History HTN (hypertension) Medical History GERD (gastroesophageal reflux di sease) Medical History Chronic pain Medical History Anxiety Surgical History tonsillectomy and adenoidectomy Surgical History ablasion [facility] Other History general Narrative - Reported* Type Description Date Medical History HTN (hypertension) Medical History GERD (gastroesophageal reflux di sease) Medical History Chronic pain Medical History Anxiety Surgical History tonsillectomy and adenoidectomy Surgical History ablasion Surgical History nerve block Surgical History epidural [facility] Other Summary Purpose Family History No Family [...] section and content) DATE CREATED AUTHOR 03/09/2018 [facility] DATE CREATED AUTHOR AUTHOR'S ORGANIZ ATION 01/19/2022 [facility] DATE CREATED AUTHOR AUTHOR'S ORGANIZ ATION 02/25/2023 [facility] DATE CREATED AUTHOR AUTHOR'S ORGANIZ ATION 05/25/2024 [facility] DATE CREATED AUTHOR AUTHOR'S ORGANIZ ATION 06/30/2024 [facility] REASON FOR VISIT (unrecogniz ed section [...] BE BASED ON THE PRIMARY CLINICAL RECORDS. [facility] [employer] [facility]. provides no warranty or guarantee of the accuracy or completeness of information in this document.
[2024-07-03 08:16] VITALS: BP 132/91; PULSE 68; TEMP 36.2; O2SAT 97
[2024-07-03 08:42] VITALS: BP 169/102; PULSE 65; O2SAT 92
[2024-07-03 08:43] VITALS: BP 165/107; PULSE 70; O2SAT 94
[2024-07-03] MEDS: BUPIVACAINE HCL 0.25% PF 25 MG/10 ML VIAL 2 ML INJ (08:47)
[2024-07-03] MEDS: 0.9 % SODIUM CHLORIDE 10 ML SYRINGE - SALINE FLUSH 2 ML INJ (08:47)
[2024-07-03] MEDS: IOHEXOL 240 MG/ML - 10 ML VIAL 24 MG INJ (08:48)
[2024-07-03] MEDS: LIDOCAINE HCL 2% 400 MG/20 ML MDV INJ (08:48)
[2024-07-03] MEDS: DEXAMETHASONE SOD PHOS 10 MG/ML VIAL INJ (08:48)
--- NOTE | 2024-07-03 09:06 | P.ON_ITS ---
Date of procedure: 07/03/24 Pre-op diagnosis: Cervical radiculopathy Post-op diagnosis: same as pre-op Procedure: Cervical 6/7 Epidural Steroid Injection Under fluoroscopic guidance Immediate complications none Solution used for injection: Marcaine 0.25% 2mL, 2cc Normal saline, Dexamethaso ne 10mg Omnipaque 3 mL Anesthesia local 2% lidocaine up to 4ml Timeout process compliant After informed consent obtained. Patient brought to the procedure room placed in the prone position. Skin overlying the area was prepped and draped in a sterile fashion using betadine. 25 gauge needle used to raise a skin wheel with local anesthetic over the target area identified under fluoroscopy. A 17 gauge Touhy needle Was inserted over the anesthetized area and directed towards the inter- space under fluoroscopic guidance. Epidural space was identified with loss of resistance technique to air. Needle Tip placement confirmed with injection of contrast solution in both AP and Lateral views. Steroid solution was then injected. Anesthesia: Local Surgeon: Gustavo Carrillo Condition: stable
== END 2024-07-03 08:51 | disposition home or self-care (01) ==
LOC: SURGOUT 07:37
PROVIDERS: PCP Family Medicine; Visit Provider Anesthesiology Pain Medicine
DX: M54.12 Radiculopathy, cervical region (principal)
CPT/HCPCS: 62321; J0665; J1100; Q9966

== ENCOUNTER 2024-07-12 10:01 | Outpatient (OUT) | payer MEDICARE, SELFPAY ==
--- OUTSIDE RECORDS SUMMARY | 2024-07-12 10:09 | XMS_ITS | CCD ---
Author Organization [facility] Care Team Providers Care Production Clerk Name Role Phone KIRNUS, DALLAS Unavailable Unavailable [...] Unavailable HOUSE, DO MILAN Medina Attending Unavailable HOUSE, MILAN P Primary Care Unavailable HOUSE, DO MILAN P Attending Unavailable HOUSE, MILAN P Primary Care Unavailable Kiel Polk MD Attending Unavailable HOUSE, MILAN P Primary Care Unavailable Kiel Polk MD Attending Unavailable HOUSE, MILNA P Primary Care Unavailable HOUSE, DO MILAN P Attending Unavailable HOUSE, DO MILAN P Admitting Unavailable HOUSE, MILAN P Primary Care Unavailable HOUSE, DO MILAN P Attending Unavailable HOUSE, DO MILAN P Attending Unavailable HOUSE, MILAN P Primary Care Unavailable HOUSE, MILAN P Primary Care Unavailable Rashad Bowman Admitting Unavaila ble Rashad Bowman Attending Unavaila ble HOUSE, DO MILAN P Attending Unavailable HOUSE, MILAN P Primary Care Unavailable HOUSE, DO MILAN P Attending Unavailable HOUSE, MILAN P Primary Care Unavailable Medications Current Medications Medication Drug Class(es) Dates Sig (Normalized) Sig (Original) Acetaminophen / HYDROcodone (2 sources) Opioid Agonist take 1 tablet by mouth every six hours as needed Flatgap 5-325 MG 1 tablet as needed Orally every 6 hrs Active [id number] actuat albuterol 0.09 mg/actuat metered dose [...] 30 Days Active take 1 capsule by [facility] every twenty-four hours DULoxetine HCl 60 [...] Value Interpretation Reference Range Facility Patient Letteron 07-03-2024 Patient Letter [id number] [facility]24 Outside Records [id number] [facility] 04-24-2024 Outside Records [id number] 62[facility] - Other Radiology Report on 04-24-2024 Rad - Other Radiology Report [id number] 49#1.00[facility] Patient Letteron 04-11-2024 Patient Letter [id number] [facility] 04-05-2024 Outside Records [id number] 3[facility] [id number] 9[facility] Other Radiology Report on 04-02-2024 Rad - Other Radiology Report [id number] 44[facility] 03-02-2024 Outside Records [id number] #[facility] 12-08-2023 Outside Records [id number] 49[facility] 09-28-2023 Outside Records [id number] 4402#1.00[facility] Coding Summaryon 08-25-2023 Coding Summary HTMLBase 64 ZlppehitZDj7oAr+PGh lYWQ+VC1HANFnW43uoZ GohO6bK2PFDQgWGcfzP VEJHPkUFzZptyEiNA3r aXNjZXJu IC8+HD5bAUXhQaelpBM zz8S5eJN2O52mpa5jHA ligVW6FWPlWiVrmzsoc 3yonDf1ILruQyssXeFf DBHasB88FBW6sL04Lf3 7mNAdvTXaj0jhhGp0Rx DiOXGrHZA9nNkkAIten 6ObKEVgH82wwSJib1I9 IGNvbGxhcHNlOyBlbXB 7oT4qIRdznonem7ovfu ldYne8zi46rNHvv7B2y HJ3H1PbrqZ6VSTqeXMi BtfpnHHSwF9olvjlk1x fjvkvKbWoCQOxOJx4OR l8ZIDudIxtQnUgMC10M MB7WAWlrpVkL3BtVOMg jBjgOlW7h3T1Sq6IX7R RUqvkW6NBVFCLQXjrgM Q+FB31uy49L3MeOsukI yi7CSMsTYD4zHB0mZ3k NXBsQUdsa9C8cSC2Z9X dskTtgm4lt3krALVuER nsD53adKZxy2E6QEBrq NV4HOYcwOagZyRkwX42 Oyc+ZWFizXhvq7GlWfw pp8lud6lfjRb8HvkdVG QzafYaxUmrKMG5a8KqR r3bFEKugAQ7kYY4pP6k BaOrYdG7JMnyR380XjD uhNOmJlvwM76pK6FxaD A+CYKbIhf6DWEftLezA L8lX8BtOPWriovnsKHi hMboVT0bLVLwirgfXBG rmZ6xYXWnV9y7CnLyKd L1CGpiI2VkNLNauhtsD s46eP2mPqIySyF8OLbp T8IsrsZ7WWFrqZXnYEu iOHS8B76ad7N2UDLqYL YdPOF9vGP5cK5adIvdv jogbGVmdDsgdmVydGlj UEhiZCmvP255ZZEmtRk nPkNvZGluZyBEYXRlOi AgMTIvMDcvMjAyMzwvd GQ+OMUaNTJ2bYoyLZEn pNFfZFdnQc8wwKqxvCs rTP4lGJYmvtlkOWCrxG 7aVYHvaWGayLzeYC1bL LFpztwfz974XbVsWRI8 BIAfsKUgD1YrpJ6cGgP qUBHwTCAsK3TkrOIhKO pkI752MVnoOiG2CHItu nUyX1EwLPMxmTkyRtH8 c7X4Ou1Gj5VofeucB8X ccYKqPxRiKsrvJKe0C8 RkPjwvdHI+XR14LXVoK B90YRk7YNR5bFtaLCpa WVCmA7IhrC8ySwVsBTF kZGRkOyc+PHRhYmxlIH dpZHRoPScxMDAlJyBzd JrvJB9nHf5zUVMdWXRi bDceoWKzViMbm4zxKQK iYUgvWX5boGhtV6XleS M8NCOyg1q1Nz45A46rW 3JvdXA+LKNigFW3zQJ8 dJ0xFtDmBsJ9CJcaI75 4OtFseQHaVzsmi3lam6 czxCt9ElM2LNLiniYix AepGUJ9m5PuBu45O04f IHdpZHRoPSIxNSUiIHZ arEjcro7okH6mIe0+PG HndIG0gNQ3jA5sWwPtW gX6NGshG143LoQdtWLk Efekz0jaw6yspNh5KsG sFDZxyjMlqNptSGI2p1 NdNo60J3BsqOmyk6CbN by3ny67nZDos5K6uCE3 R8UxXOZvzvpwcIGnwEb qOV2cLZLmqlnlYQCyvD 7tWMEpX6p8DjSyKyX0Q ElpS4QxwkW8DEYtbJMv KCPkjJUJoX4zwqqgf0r godqfYpTzQKQlECq0PR s0IKFxsTgeFrHiXOB8V yW9SAM2rRYltR0gjTca dgzhgO3eMbh+PHS5gBY aiHWZPH8zPjwunMP+PH AlITT3tBnaJYhxZXRqh H1lSLJhD1d9FgPaSlH7 ELfwU4PmjjH2SJXubCI bFACplHGWcX0yqoipq2 xyjuurLuWzHBDtYKx3M Ez9YOKxxTzzJjMhEXP2 BhP8SHZ2lNKtpM6ppVf hvhrcwZ6eGgt+QmlydG ksUKB2PZi4P5WjRll8D QXwiXiuBV0qbCLmCQgb Pr6bbFmyrZeoPS7rEJF isthpb895RtCca5ehOV UgmXYaXQokYNE2L25tw 6C8DTMkMVTnPAW7zHA1 pF4gdJamgfimrKSopGs gdmVydGljYWwtYWxpZ2 98OPPkmSubAtKbUYi2I 9BgCwy1XXOorKcaUX8j dJWgJAgpLt7ebThyxLc wHW1jBFOliyzuh784Ju Hgb0wnROJylETsFPngO VQ5U11da7H9UDAkAAYq HLA8oHZ3aR2yuAbxlij gbGVmdDsgdmVydGljYW wjKHfeX018RBVxgXczB aAsqQb2J6LlMyf1PFUk sLmxSR3oqPDoQQedQm6 fzIvpiKltIY4jXJBkaa nog108NqCjr0tjKTZfk ZGaOKpoTEQ7I98rg9D3 XFKqOTCjIZN4lYT8aV5 hbGlnbjogbGVmdDsgdm PczMfoFIlzRGitF720I HRvcDsnPlBhdGllbnQg XDsqAAi1U9BfNpzyaYJ +FA95YZIuQJ39pTHwsP Hsg2jgeHe1DhNmNIKeA TY9zOptGMvhw8LuCPCx I49kwSKkc8Y1VHNchQk ewLUoYbGmlIB8aT5qKU zzfwfft4zzcxduVltch 4ltzu14tI59F53nGUwm ZHRoPSIzMCUiIHZhbGl vhv8wtT3tNw1+PGNvbC Y2nGN9tH7wGXJeZzK1W YaxF027ScAiyNVoKlwc m9aqm3oiaNb9EpT6VYS hbyVbfUqkFOB1c1HwXs 07L29rEJqhSBVhNDQaA KCcMJIwxPczgj2ofN7s Ii8+TZSqnMK3fTR4xV9 mQuLsHwW7SWfqJ217Jk YmnEJtLwveS69kJ7Otb XA+BMVyAwr8MFAhhDzp ZW8ssSKjDPyfHz5xYIZ 2ZlQxDwDeKTkfI3JvAC AdfueybxttcSD1TGDqL JDytF77Rw0jeSrpHFKe wAUWeZ1wfndlk8cwjuc cRuGiXPTvAVv1KDh6DV XcjHpeIuKwCOC5BwG1A OP6cTPeaX9ccJxjkdvt qM1bZ9PqGGIyidatSm9 3vY5pLiKfAwF8XPpfYi c+G8TFKO2JTifsL5OIZ TVYRVINB1MUVDxxdUW+ BOSzEBT6aVpoTNctSGW zcM0bDXZsC5v1CfXwNo F3MXinA0HpXPFkkkdaI m96cB5oAdGaHxP6LWjt S9HduxT0MVJrhMReWDy mEZU1Z88ft4K2BDWsJV JcDTC5rMK8oT8joFjhn jogbGVmdDsgdmVydGlj PQrjJNubR536OOWugLo uTyCxDjIsWwP0PyL1H0 WrNlb3AWPzuGnoGG7yu VNoSBifUu3dfYedzYpi ZR2sNALaeptmREZriK8 mFCMzfEBncYfnUI2uBZ Pphcnmn504BnNrIPN0Y BFdvUZwI7UfjR9xFqIf QTNoVLNfI3TrhSQxENf bU163KTurOtG8WOZzhv IhU5PlEWXlhSvcHnJ9d 2D6Uo44NDNOFKQohzbu dGQ+ITZyFXQ1vLaxGVa tJEXvnJ4cOEPlP5a0Up VrGnH8UFglJ2SnPQVdt yusHn17uN6vDgKgBbE4 VHkbW2OzgqA8PIEwxJV gIXtgDRB3Z98wn2N8SO ZgXYHyOPT0fJO3xK7ss GlnbjogbGVmdDsgdmVy uFnsTTgpDAdnE551WXQ koUcgLk0XMFN6D1RuBl p0TDLqvMmvIB9amUHlE NktKt6opDhufFerGQ5c QQSkkknaCSIimH6wORC foXIxlHugVT7wNUMbpw dny832WlZcOBY1NITxt ZPxS6SifB0jCbOfQQHp UCTjJ5OnrIPhFGkqT26 6KRynAyQ2PIHhrjAnK9 UbYNJvqFnrWcB7k3U1N u7SMWnttRT+NN66ve80 V8AjLthmZms6BYGsYER 3qFR8bV6jWUBcTMgqq8 Z4oYL4A0PjufGilw4cr 8ffEYVbSTiwE13yeMOw b2P9PYJrqMI3OOUirSx iSfCfpA86Aqg+PGNvbG vop2TiBwmhj2ijs6bcl Lw9NlHfOLVwwmBclYxm TLL6w4KmJi21T65eZSn pZHRoPSIzMCUiIHZhbG ynii7ozO3iTk6+PGNvb SN4iKC2aQ8xKeXhJsV1 SPblR570RwBqiBIcMms rf7thz0pfzRt9OhNxAC JxyeHhmYusFCF2z5MgQ l51F5HamTxni9ViIxi9 pe94rOEci5E3wYW8V5V hZGRpbmctbGVmdDogMC 0xWFVmnztvQPSadY0vN TSbP4v1WzEcYdO9FTjt I2AyodI7LSRopVJpIDX mgXJYnD7iiqcqv5geqz udYqAoUQMiBVi6GRe4A EWlgLnfKuWuQCQ6AyV7 VGK7hSKcoC9vsWgcviz xjU2hYur+UYy1y1mwxI KuWK2sfMD9PT98PN82t VKpm1A9tYL1W9PnFSEe suqyiqwfvCI0ENLsCWX bmQ78Sm4reFtyKw9dOV HxRHZ5HXFdsCCxS2Dkt S5rPkYiSBGiIUHzG6Cz uGPzLDjnY857FExxVyI 4SPKnqcAaU0IaTJVceA ioBnO5u9A0Fs6EJP04Z Q28IY05xOCqm8Z0iAC2 B1YjDEPgpxoqthrysLY 3LJHjQLOqyR19Hc9gnB ddRt3kFQKuLYM6HMYoq KKwT3EtgB7lGiXeDOQq SDHzK3NiwNJxRVbkC47 4BCjcZsC5QMDibiCuZ3 MqFAFzxDlrUjX5z6C5I p8LKs55TP95JM93wUGe g5O7wPR4A2RlTZKxhlj icrbskBZ1TYAwVHZvnS 47Ei2kbMppJd9fIDErJ MH0OWJdoXHhP5UphX5m WcCuJEIgVLNoK2DpnFZ vWXauE166QYhqHoR3EL GpgqUxN5LqVMPuiHgtB jP0m0Y9Om5SRTfqhnq0 K8HoPmgwbMH+GN25WVV bPC59hGDcbDVdf9ysxE g4GhThFAZsHMI9hOefV Qola4YpSPTcL69ubETt c2U (more content not included)... Normal [facility] .Auto Diff 08-24-2023 Auto Taos % 6 % Normal 09-30 [facility] Comment on above: Performed By: #### 1 [id number], 57726501, [id number], 8140354, [id number], 9921300 ####[facility] (DEFAULT)[address] [place] [address] Baso Abs# 0.1 x10 Normal 0.0-0.2 [facility] Comment on above: Performed By: #### 1 [id number], 16502750, 2728729008, 8860304, 2268309682, 3487170 ####[facility] (DEFAULT)[address] [place] [address] 92336 Basophils/100 WBC (Bld) 1.0 % Normal 0.2-2.0 [facility] Comment on above: Performed By: #### 1 [id number], 34680384, 5463282431, 8139490, 2474489252, 9642428 ####[facility] (DEFAULT)[address] [place] [address] Eos Abs# 0.1 x10 Normal 0.0-0.4 [facility] Comment on above: Performed By: #### 1 [id number], 77963328, 5392441031, 5024676, 8730477592, 2306446 ####[facility] (DEFAULT)[address] [place] [address] 58229 Eosinophils/100 WBC (Bld) 1.1 % Normal 0.9-4.0 [facility] Comment on above: Performed By: #### 1 4546621, 02484374, 3556975298, 3961402, 2591808490, 7722711 ####[facility] (DEFAULT)[address] [place] [address] Lymph Abs# 2.1 x10 Normal 1.3-2.9 [facility] Comment on above: Performed By: #### 1 1678016, 97437217, 5234741989, 9987679, 4633090091, 1952145 ####[facility] (DEFAULT)[address] [place] [address] Lymphocytes/100 WBC (Bld) 26 % Normal 14-48 [facility] Comment on above: Performed By: #### 1 9613316, 68136518, 0280416782, 8588073, 4463045160, 0285996 ####[facility] (DEFAULT)[address] [place] [address] Taos Abs# 0.5 x10 Normal 0.0-0.8 [facility] Comment on above: Performed By: #### 1 7426470, 75493396, 1337947275, 1154780, 6469211061, 6793393 ####[facility] (DEFAULT)[address] [place] [address] Neut Abs# 5.2 x10 Normal 1.5-9.2 [facility] Comment on above: Performed By: #### 1 1564144, 73354671, 8996750233, 7070738, 1135448191, 5169515 ####[facility] (DEFAULT)[address] [place] [address] Neutrophils/100 WBC (Bld) 65 % Normal 44-88 [facility] Comment on above: Performed By: #### 1 4702802, 79683505, 0808617074, 3103290, 5582194352, 5395611 ####[facility] (DEFAULT)[address] [place] [address] CBC w/ Auto Diffon 3 Erythrocyte distribution width (RBC) [Ratio] 13.7 % Normal 11.5-15.0 [facility] Comment on above: Performed By: #### 1 9462167, 88317564, 8430161601, 1675682, 9705021647, 3815074 ####[facility] (DEFAULT)[address] [place] [address] Hematocrit (Bld) [Volume fraction] 45.6 % Normal 34.8-51.9 [facility] Comment on above: Performed By: #### 1 2148810, 68210375, 5359134245, 1097869, 8211084694, 8747768 ####[facility] (DEFAULT)[address] [place] [address] Hemoglobin (Bld) [Mass/Vol] 15.2 g/dL Normal 11.8-17.7 [facility] Comment on above: Performed By: #### 1 4983988, 10780700, 7252969713, 5387743, 3326296942, 0746728 ####[facility] (DEFAULT)[address] [place] [address] Man Diff? Auto Invalid Interpretation Code [facility] Comment on above: Performed By: #### 1 4592363, 48527566, 8016500994, 9375974, 3816344338, 5790228 ####[facility] (DEFAULT)[address] [place] [address] MCH (RBC) [Entitic mass] 29 pg Normal 24-34 [facility] Comment on above: Performed By: #### 1 5992972, 00751339, 5504189827, 1159094, 7035106593, 5774018 ####[facility] (DEFAULT)[address] [place] [address] 52653 MCHC (RBC) [Mass/Vol] 33 g/dL Normal 26-37 [facility] Comment on above: Performed By: #### 1 5758669, 35429125, 0645904173, 6602814, 0891389709, 1037054 ####[facility] (DEFAULT)[address] [place] [address] 20620 MCV (RBC) [Entitic vol] 88 fL Normal 81-100 [facility] Comment on above: Performed By: #### 1 3483757, 36593003, 6078519208, 9789324, 9610261283, 3345374 ####[facility] (DEFAULT)[address] [place] [address] Platelet 391 x10 Normal 138-427 [facility] Comment on above: Performed By: #### 1 5654361, 89556919, 9522635577, 4655733, 3530542456, 8641560 ####[facility] (DEFAULT)[address] [place] [address] Platelet mean volume (Bld) [Entitic vol] 8.5 fL Normal 6.3-10.2 [facility] Comment on above: Performed By: #### 1 3359803, 39256276, 0999613963, 2740922, 5256639319, 0313198 ####[facility] (DEFAULT)[address] [place] [address] RBC 5.19 x10 Normal 3.70-5.30 [facility] Comment on above: Performed By: #### 1 2731843, 04761864, 6519671708, 1602262, 4861350097, 3452997 ####[facility] (DEFAULT)[address] [place] [address] WBC 8.0 x10 Normal 3.5-10.5 [facility] Comment on above: Performed By: #### 1 0079845, 77665661, 0811650169, 2183712, 1609638704, 6333593 ####[facility] (DEFAULT)[address] [place] [address] CMP Standardon 08-24-2023 eGFR Non AA >60 Invalid Interpretation Code [facility] Comment on above: Performed By: #### 1 1682551, 96725919, 8317934521, 0006915, 3665855178, 9476929 ####[facility] (DEFAULT)[address] [place] [address] eGFR AA >60 Invalid Interpretation Code [facility] Comment on above: Performed By: #### 1 5113459, 22508259, 9226913832, 8925222, 0438087738, 0256058 ####[facility] (DEFAULT)[address] [place] [address] 10310 Albumin [Mass/Vol] 4.4 g/dL Normal 3.5-5.0 [facility] Comment on above: Performed By: #### 1 0403929, 71938856, 2091136149, 1314993, 4110007766, 5680546 ####[facility] (DEFAULT)[address] [place] [address] 43677 Alk Phos 60 IU/L Normal 32-91 [facility] Comment on above: Performed By: #### 1 4636411, 42320168, 2400342744, 7270342, 0345120157, 8714510 ####[facility] (DEFAULT)[address] [place] [address] 92770 ALT [Catalytic activity/Vol] 52.0 U/L Normal 17.0-63.0 [facility] Comment on above: Performed By: #### 1 1007045, 84352560, 7455026585, 1323482, 3742278266, 2809215 ####[facility] (DEFAULT)[address] [place] [address] 39176 AST [Catalytic activity/Vol] 32 U/L Normal 15-41 [facility] Comment on above: Performed By: #### 1 7788371, 57249035, 0219936099, 5756141, 9869375699, 1006880 ####[facility] (DEFAULT)[address] [place] [address] 29434 Bili Total 0.9 mg/dL Normal 0.3-1.2 [facility] Comment on above: Performed By: #### 1 4373501, 12431425, 2396849184, 1822611, 7470560597, 0685920 ####[facility] (DEFAULT)[address] [place] [address] 11359 Calcium [Mass/Vol] 9.4 mg/dL Normal 8.9-10.3 [facility] Comment on above: Performed By: #### 1 5140649, 71657355, 7899420520, 3390349, 3113473914, 4231435 ####[facility] (DEFAULT)[address] [place] [address] 69260 Chloride [Moles/Vol] 109 mmol/L Normal 101-111 [facility] Comment on above: Performed By: #### 1 1218510, 86749279, 5593101034, 4236444, 8383410013, 8420179 ####[facility] (DEFAULT)[address] [place] [address] 51431 CO2 [Moles/Vol] 25 mmol/L Normal 21-32 [facility] Comment on above: Performed By: #### 1 1129426, 42844321, 8512740533, 4287252, 6856191040, 2760693 ####[facility] (DEFAULT)[address] [place] [address] 71597 Creatinine [Mass/Vol] 0.74 mg/dL Low 0.90-1.30 [facility] Comment on above: Performed By: #### 1 2211799, 57299176, 3412100616, 0341566, 3825301797, 4254984 ####[facility] (DEFAULT)[address] [place] [address] 99870 Glucose [Mass/Vol] 105.0 mg/dL Normal 74.0-118.0 [facility] Comment on above: Performed By: #### 1 1080751, 51977811, 5667421077, 4848246, 6603788210, 7927289 ####[facility] (DEFAULT)[address] [place] [address] 07842 Potassium [Moles/Vol] 4.0 mmol/L Normal 3.6-5.1 [facility] Comment on above: Performed By: #### 1 8190072, 75691115, 9112457046, 5675208, 0964771677, 8762387 ####[facility] (DEFAULT)[address] [place] [address] 48608 Protein [Mass/Vol] 7.5 g/dL Normal 6.5-8.1 [facility] Comment on above: Performed By: #### 1 4177192, 11867098, 4653706077, 7591158, 2534339957, 0946456 ####[facility] (DEFAULT)[address] [place] [address] 11901 Sodium [Moles/Vol] 140.0 mmol/L Normal 136.0-144.0 [facility] Comment on above: Performed By: #### 1 9358523, 91862790, 2530024148, 4043881, 7513600632, 1731132 ####[facility] (DEFAULT)[address] [place] [address] 59977 Urea nitrogen [Mass/Vol] 10 mg/dL Normal 8-26 [facility] Comment on above: Performed By: #### 1 4658843, 21783091, 7008261325, 9317336, 3606889998, 4269530 ####[facility] (DEFAULT)[address] [place] [address] 00504 Albumin/Globulin [Mass ratio] 1.4 {ratio} Normal 1.4-2.6 [facility] Comment on above: Performed By: #### 1 6696346, 11572794, 3766718458, 5135945, 3921022068, 6206188 ####[facility] (DEFAULT)[address] [place] [address] Anion gap [Moles/Vol] 10.0 mmol/L Normal 5.0-19.0 [facility] Comment on above: Performed By: #### 1 [id number], [id number], [id number], 6567597, [id number], [id number] ####[facility] (DEFAULT)[address] [place] [address] 34548 Globulin (S) [Mass/Vol] 3.1 g/dL Normal 1.5-4.3 [facility] Comment on above: Performed By: #### 1 [id number], [id number], [id number], [id number], [id number], [id number] ####[facility] (DEFAULT)[address] [place] [address] Osmolality 279 mOsm/L Invalid Interpretation Code [facility] Comment on above: Performed By: #### 1 [id number], [id number], [id number], 5989576, [id number], [id number] ####[facility] (DEFAULT)[address] [place] [address] Urea nitrogen/Creatinin e [Mass ratio] 13.5 mg/mg Normal 4.6-16.2 [facility] Comment on above: Performed By: #### 1 [id number], [id number], [id number], 0965385, [id number], 7410799 ####[facility] (DEFAULT)[address] [place] [address] HgbA1c Standardon 08-24-2023 .Hb 16.6 Invalid Interpretation Code [facility] Comment on above: Performed By: #### 1 [id number], [id number], [id number], 0128409, [id number], 4380153 ####[facility] (DEFAULT)[address] [place] [address] .Hgb A1c 0.59 g/dL Invalid Interpretation Code [facility] Comment on above: Performed By: #### 1 [id number], [id number], [id number], 7520965, [id number], [id number] ####[facility] (DEFAULT)[address] [place] [address] Glucose [Mass/Vol] 108 mg/dL Invalid Interpretation Code [facility] Comment on above: Performed By: #### 1 [id number], [id number], [id number], 3045305, [id number], 9449303 ####[facility] (DEFAULT)[address] [place] [address] HbA1c (Bld) [Mass fraction] 5.4 % Normal 4.6-6.2 [facility] Comment on above: Performed By: #### 1 [id number], 11528944, [id number], 8043418, [id number], [id number] ####[facility] (DEFAULT)[address] [place] [address] Reminder Messageson 08-24-20 Reminder Messages -- From: MILAN NAILS DO To: [facility] [place] [place] Sent: 08/24/2023 12:33:59 EST ! Show up: 08/24/2023 12:33:59 EST Subject: Results Follow Up Actions: Call the patient with result(s) Due Date/Time: 08/25/2023 12:33:00 EST Reminder Comments: looks good Results: Date Result Name Value Ref Range 08/24/2023 10:17 Estimated Avg Glucose 108 mg/dL 08/24/2023 10:17 Hgb A1c % 5.4 % (4.6 - 6.2) Patient called and notified of results. Verbalized understanding. [facility] Reminder Messages -- From: MILAN NAILS DO To: [facility] Clinical [place] [place] Sent: 08/24/2023 12:24:35 EST ! Show up: [...] % (14 - 48) 08/24/2023 10:17 Auto [place] % 6 % (1 - 12) 08/24/2023 10:17 Auto Eos % 1.1 % (0.9 - 4.0) 08/24/2023 10:17 Auto Baso % 1.0 % (0.2 - 2.0) 08/24/2023 10:17 Neut Abs# 5.2 x103/mcL (1.5 - 9.2) 08/24/2023 10:17 Lymph Abs# 2.1 x103/mcL (1.3 - 2.9) 08/24/2023 10:17 Taos Abs# 0.5 x103/mcL (0.0 - 0.8) 08/24/2023 10:17 Eos Abs# 0.1 x103/mcL (0.0 - 0.4) 08/24/2023 10:17 Baso Abs# 0.1 x103/mcL (0.0 - 0.2) Patient called and notified of results. Verbalized understanding. Normal [facility] T4, Totalon 08-24-2023 T4 [Mass/Vol] 9.52 ug/dL Normal 6.09-12.23 [facility] Comment on above: Performed By: #### 1 [id number], [id number], [id number], 0739753, [id number], [id number] ####[facility] (DEFAULT)[address] [place] [address] TSHon 08-24-2023 TSH Qn 1.11 m[IU]/L Normal 0.45-5.33 [facility] Comment on above: Performed By: #### 1 [id number], [id number], [id number], 9368430, [id number], 8328239 ####[facility] (DEFAULT)[address] [place] [address] Coding Summaryon 08-02-2023 Coding Summary HTMLBase 64 CkamxsinUAi9bNv+PGh lYWQ+MD7GYPOoD09bbL FxuJ7xJ5MTYGyDTmxtJ LJPYFoVExMfwkWlIL4u aXNjZXJu IC8+TO6uQXAqVikgwHS ws4C8eIL8P60pof3uOI ibyZX8AJGsQkCwhyybm 5wfbFz2OFmvDaudAyKp IIAqwD70TXS6wZ28Wi8 8gXQtvQZgr8buhNq2Gj ZeKHKiVIC6fMmrUErxi 8JvXIJhJ42woKBrq3L5 IGNvbGxhcHNlOyBlbXB 4iC2hQYxcugnqy6ewfx amXle0sx22yKAsr0T7t GD2U7QosvE5RNYjhMEp OgkczGVUeG7mucscn7n afhrfYbQbXRQlERa5TH x3XWRwsWsnNcZlDJ27Z RE8QGQxwmOpB9QnDEHe pPapMlT7v0O8Eh1ZF1D MFarlX9JTPUYOUWxfrI Q+EU92qh44Y5StNnpjU qh7IHYpXXU8wLT0eG8i RBLdCQwnb7J8gWZ2N8G cbsQhcn3eq3udMTMkCC wzV18sdZZwj9Y7MMSyy NS7TUAfjKumXjNmyI76 Oyc+JIVdnCbts5HmTny uh2xpz3fgnBg3FypbBV GrofQujTulLPM4j0RdE e8wVCKkvPK1cCP2nC3i OeWmGvJ9BMyvG443YsZ ozBCmKwawC36jL4DzgJ A+KVFhHkh4HPCffJwkF Q1bO0WjPKOvmhzvrYFm gVlbQF6tKKGulndyKZK myP4cHAQkA3a5SkHvIv O6EUweO7KbIIRqmtosN b76uH5iLhTcHlJ6XYar E1PoufR9YKAcmGEjEEj nZDM6O81cr6E8AWNwHA MaZWV5pTC6kY2dyIjie jogbGVmdDsgdmVydGlj SMppHXgtR820OBLacYp nPkNvZGluZyBEYXRlOi AgMTEvMTQvMjAyMzwvd GQ+OJCvBAN9oYtoXAGl pHXvKUhkSx9dvNprfYz wEG3mQKRaqbewASPpzJ 8zHCZbmBBjjAjsGQ2sG LPilqdmi013PySrRRS3 NGFjzUGzX9LquH3zCfZ tCMJpLOYvX4ZdhYFkIO nzT694LNzjZrZ2BUMsv nZhP8WlYMXikLqfEiD5 i2G4Ga8Kk0IabnbjU6Q mmHGuFxQdLtxfOQu6G4 RkPjwvdHI+KP55BALlC L18VIg0HZS4tErbGMbj OAJfX9OwlZ0zJdLbOUE kZGRkOyc+PHRhYmxlIH dpZHRoPScxMDAlJyBzd LcgSI1xIz3tPNXoEGBp wZcqpGHjLrWzp4jcVHT bNQjkVN6xmQloD8IluP P0YTEmg2a4Ax41N74wQ 3JvdXA+XYBlqHK0zXO0 sL4vMuXuSgN5IRsjQ37 9ZtSfnNUfAjqmx0fxw0 kdbBw7QqS8VLMvzcMod KumZQV8m8SsKz59D98i IHdpZHRoPSIxNSUiIHZ llUxjgq4vtX6mFi2+PG LvnFH4jMK7uH6nJqUnS aA2VPekA851DbKxzDYj Rxvyp7udb4lucVh2RlP cYZQzevBawJxtRLL7r0 JeQf86D5TswOjff9MzJ ey9zf57kMRzf3G2xLA4 G5GwMCUffawsoLSddWz jTE1eZKIptkqwRWZznE 4kAELkR4g1McQxDkZ9D OdlW9LvmjA2FZUuxIFk PQRclLGXgX2cgnxrz2j bxanwXaStRCKhXZb4XY v3IRFnfWapEoMeXAD2K vG7ZJH3zYPumK0taVmx viehcA2yCpb+EGH6cUR hiZIYFE5iIugasDT+PH LaAWP6fSpkKDdwMTWuo X8qSSOcO2n4KmZkObW7 MRttN5KnrpC8MKDljJE kKGZacIIGqV8afjexu7 wozgccTrSaXRGgQVo6O Av3GLKdwRmeSdIjYSW4 MjG8ITB2bMVzaX5wrSt xlysjfL4cAzi+QmlydG tgIGE9AHw9W2MgAwc6E LYgqEbkBG9roYWuQHcr Te1xfHdkzQwjFI8zOOJ twphfu185JrQwp6svXQ JbtUFnRZtjWRD9O11ex 2M4QADbQYVmGOT4qTL9 hT4scPuklulsoREecVd gdmVydGljYWwtYWxpZ2 79PARhvUmfUrQxNCt0I 7OwUeo4DOJfxRhdES1v hGJvATbdQe9yoJfukGt jLF2cZSXewtmpz774Jj Ygm3llKWApfRVyCAheT CY5Q28sl9U9FQKaCGBi RYW6pMI4oM8vbZiypil gbGVmdDsgdmVydGljYW hlPIbuN412EOKtkQxgS lFchKh6J7XeFtf2CJTo pTjyWK3qqTLkVVpgAy8 scPjjgBcjER8xCGWwpf puz377XkZlw0xnVBKwv ROuRDzxOSM6E47lj3C3 MZDeNJTjXHN4qEN5vQ0 hbGlnbjogbGVmdDsgdm HolXhoWFbcPOkjI674M HRvcDsnPlBhdGllbnQg CFmsLMl5P6AoKabiuNA +ND15GGVlSI70aDIgcK Irk7vqjLf9TyDqRRSwT MN4dGfiPYlap3DrOXQw Z50bfUJtv4Y4XANllUe cgEEmMhHdnLP8cD9rOO groyowi3nlujazDhfyn 4dnjz33tM07E62jLCwy ZHRoPSIzMCUiIHZhbGl gws1iqJ7pWw8+PGNvbC P4nEO4rI3kGIMdNrU9C XaiV415DpZjxCVrSkqa u1xva2eueCe9JbL6BAT ffrCsqJtiYKH2y9TpCi 19N66uUKtqVZPqYPHpZ DCuIRYxrDzacw4qwR4i Ii8+NQTufCB8nFN9uE9 jHxSjRgF8VIjrE378Hq FcvMPwUqyzQ27sM6Lfu XA+QXIyCob4DPGucWhe KQ2zmKEzQEtwMw7kGHQ 4DkZpIkJpVTlzT5EzDT YfnzefnoddvNW2KNYlI NGohM86Kt4mxVsqINXv vOJMzN8tijaje2eomja fFvPcWWMeGHw9WNq4VM OsiCsvKwWdDII0PwZ2M WV6nOChsO3zrNmmlvpf vE5iL6WxYQHiwwhtYl8 9aJ3xYpHyAnA7PHpnVh c+S7PYIU5EJvjdC9XNN DLRMJYXD3NJBIvrzQD+ BUArDBB2zOnyMUmxPPR baX0yFBEcH3q3KgVlSh D9VAnuQ4ErGQAayymgX p52yD3kDpQfWjJ1YPkk N9PgixF1HKOdsTGqSQq nJAJ7V39or9Z4VVPdKW UuKXX5mGC1gD3oiAekn jogbGVmdDsgdmVydGlj UHumLNmnW858NIBwsRq yXyRfMnFkFuW7KhG0A3 UpIqx2KGWumOylCY9fr IQgMSduEd1wuRlzhUwk EQ5pHZAyibrbMVDcnU8 eLQHbfUJylFmgUJ9pKS Vmnlkqn077CpMaHHV4J XDhuLBiP6AesM9tHsYf WQMgWUOqT6SxuVPpIZz nL586NFbyNxN3LGUnqe McR3HfNVAlnLsmGaE9g 6K1Cl06PFWLKXDtueze dGQ+OBYpHAI0pXiaPMb aWYDamC8vBGQyQ8i1Vr TiAtN7RZxgF1VmIEMxs jreKg22rP7eTrYnPiN8 YMkcT6GtmkJ8JJQekLK nSKzmMAN6C51ca2K2NN FvECPgHQN3bFS5cP4er GlnbjogbGVmdDsgdmVy rCyjWFznXQmjY153IIA wkLmdWe1MPKS4T2KsAd z3XJFeoZgsSK8reFLvR DgmKg8kiKqsyWrpFT8r HBIslouzHWRrhG6uLQN nsKIiaYyxHA8sDLUblf mlx598AqXeVLS0MVYis GTrR7QmiU6sLmDuBFRh HTWmG8WzhFWwDLmuV68 4QRsqLzY9FRJwmdLmZ3 JzYNMziLqeCfS4e9Q6A t6VZXocqMB+QN06fp70 A7HhYsxjQjy3YVOcOJW 2eBM4jM4aSFIsPHoje4 T8cCY8K8QlicQegw8jv 0yrLYKjHYmuQ83quVOk a4V6NEPmkHX7XDSqaUj xGrUjlO83Ogw+PGNvbG kgq2JvZessl5nsn8vdo Wr6VtWlUPUxwdRbxIdq UQP0d8HcVo74N44oFNb pZHRoPSIzMCUiIHZhbG gyhg8mqJ6vZq9+PGNvb EQ4uBG4tW7eUfJzQaS3 UGasO471AjPdqLYjYyd df8siw8wqkCz7VjRtWX RlliGslZeqLFJ5r2SgV h94J8BedYbxg3UlLxt7 de90ePYph6H4cYQ9T4S hZGRpbmctbGVmdDogMC 9pEWFczvrnGDOsdY3oI ZSeC4j4DcKxSgY0XQfe J8YwpdD7WGYcnMDmVQM wvIWHvX5sefdkx0dcuh zlIyLpCBGvZLm6RCq0Z CCprHkmCaVyWAN7QlH3 UCY1cMKoyL9siVmnbvs diC6hWpd+RAk3g8lggL SxET5zxIF8DH88WA21a HWml0W4aWF5G9YeRVVf hzukzmqycQW9GRHsWHI qoK58Jb9ykTeyCe5wRS YhWAS0PODsfDJnI6Bma N4oReXiJBZkUPXiP5Gb gQKvQInhW424SYyaYmD 9SJOvenRaX5HwTBOugO omYjV8w8S5Yr5NXC07P O31NH17fVBqz0G2kDL5 O6UcFVWclxesbnbnpQP 2IEZkBEQlwX74Lz7ddZ xmDe3xWGVkMMR1CITgt CUdO5GcoG7uZpSsRPEg IILnL8HshGHhNKlqM57 4VIlbNiL1TCDcdkReB3 ZaSQVnsTejMyI2n1I1P x0HCy26YO21DV44vBRn s8W6dYT5B3LyGRHrbdw rdbevuZP2ZPAaPLQadO 16Ih8rtMckJl3tWAJsT NL4USLbhEEuA9NpoU1f SzUhDTMwIYKcY5NloGO gKVavY965FBosTmR5PK GvzyLxF8QeVWWkyGpzO qJ1m9D3Oi6PDEoldip3 J9EzAlasvBX+YI17TVQ zSU48pHKdmICkp7gafF x0BhGaDWCjQDQ5sQnyK Jitg0LlDKKtP57jqRHb c2U (more content not included)... Normal [facility] ED Clinical Summaryon 2022 ED Clinical Summary [facility] ? [facility] Care [address] [place] [address] Clinical Summary PERSON INFORMATION Name: DION ANDRES Age: 47 Years Sex: MALE : 1975 MRN: Acct#: Visit Reason: UC - Laceration; LACERATION ON LEFT HAND Arrival: 07/26/2023 15:38:23 Discharge: 07/26/2023 17:27:00 LOS: 000 01:49 Check In: 07/26/2023 15:38:23 Checkout: 07/26/2023 17:27:00 Address: [address] [place] [id number] PCP: MILAN NAILS DO PROVIDER INFORMATION Provider [...] Address: When: MILAN NAILS DO [address], [place] [id number] Within 3 to 5 days Comments: Diagnosis [...] wound to hand Patient Understands: Yes - Patient/family/care coordination manager verbalizes understanding of instructions given Comment: Normal [facility] ED Patient Summaryon 023 ED Patient Summary [facility] ? Urgent Care [address] [place] [address] PATIENT DISCHARGE INSTRUCTIONS Patient Information Name: DION ANDRES Age: 47 Years Date of : 1975 Reason For Visit: UC - Laceration; LACERATION ON LEFT HAND Arrival Time: 07/26/2023 15:38:23 Primary Care Physician: MILAN NAILS DO Attending Physician: Rashad Bowman Comment: Patient Education With: Address: When: MILAN NAILS DO [address] [place] [address] Within 3 to 5 days Comments: Diagnosis [...] and water are not available, use hand grocery clerk selling. ? Change your dressing at least once [...] at home: Medicines ? Take or apply fjlh-igi-bvkpqjf and prescription medicines only as told by [...] is impor (more content not included)... Normal [facility] Recordon 023 Urgent Care Record [facility] ? Urgent Care [address] [id number] PATIENT DISCHARGE INSTRUCTIONS Patient Information Name: DION ANDRES Age: 47 Years Date of : 1975 Reason For Visit: UC - Laceration; LACERATION ON LEFT HAND Arrival Time: 07/26/2023 15:38:23 Primary Care Physician: MILAN NAILS DO Attending Physician: Rashad Bowman Comment: Visit Diagnosis: Diagnoses This Visit Puncture wound to hand (S61.439A) UC - Laceration ([id number]) If you received any narcotics, sedation, or [...] documents With: Address: When: MILAN NAILS DO [address] [place] [address] Within 3 to 5 days Comments: [...] wound check, and sutures removed at the [facility] urgent care. Return to the emergency department/urgent [...] nurse practitioner, or physician?s assistant professor of archaeology for ongoing care. If your symptoms become [...] so we can reach you if necessary. [facility] has provided you with a complete list of medications post discharge. Please inform your shift superintendent caustic cresylate/provider of your visit and for further instruction on these medications. Any specific questions regarding your chronic medications and dosages should be discussed with your primary care physician(s) and/or pharmacist. [facility], [address] [place], [place] [id number], [phone] amoxicillin-clavula ld (amoxicillin-clavul anate 875 mg-125 mg [...] release capsul (more content not included)... Normal [facility] XR Hand Complete Lefton 11-0 XR [...] 4:50 pm Technologist: Joseph STEPHENS [facility] LUMBAR SPINE 6 OR MORE [facility] 01-14-2022 LUMBAR SPINE 6 OR MORE [facility] Department of Radiology [address] [place] [phone] Patient Name: DION ANDRES : 1975 [...] , Ordering Provider - A JER MSN VEGETABLE HARVEST WORKER , Exam: LUMBAR SPINE 6 OR MORE [...] radiographically. Electronically signed: Rashad Adler. Transcribed by: [id number], User Resident: Electronically Signed by: RASHAD ADLER @ 01/15/2022 11:40 AM Normal [facility] Comment on above: Order Comment: , ap, lat, flex, ex, obliques, r/o instability or pars defect , Views (X-RAY, LUMBAR SPINE): AP, Lateral, L5-S1 Spot, Obliques, Flexion, Extension , ap, lat, flex, ex, obliques, r/o instability or pars defect , Views (X-RAY, LUMBAR SPINE): AP, Lateral, L5-S1 Spot, Obliques, Flexion, Extension , , , Ordering Provider - A JER MSN VEGETABLE HARVEST WORKER , Vital Signs Date Time Vital Sign Value Performing Clinician Facility 09-23-2023 10:05-0500 Body height Abbey Robin Other [facility] Other 09-23-2023 10:05-0500 Body mass index (BMI) [Ratio] 44.21 kg/m2 Abbey Robin Other [facility] Other 09-23-2023 10:05-0500 Body temperature 98.6 [degF] Abbey Robin Other [facility] Other 09-23-2023 10:05-0500 Body weight 135.81 kg Abbey Robin Other [facility] Other 09-23-2023 10:05-0500 Diastolic blood pressure 82 mm[Hg] Abbey Robin Other [facility] Other 09-23-2023 10:05-0500 Respiratory rate 18 /min Abbey Robin Other [facility] Other 09-23-2023 10:05-0500 SaO2% (BldA) [Mass fraction] 95 % Abbey Robin Other [facility] Other 09-23-2023 10:05-0500 Systolic blood pressure 152 mm[Hg] Abbey Robin Other [facility] Other 04-15-2023 10:30-0400 Body height Marisol Zelaya Other [facility] Other 04-15-2023 10:30-0400 Body mass index (BMI) [Ratio] 45.33 kg/m2 Marisol Zelaya Other [facility] Other 04-15-2023 10:30-0400 Body temperature 97.6 [degF] Marisol Nathalie Other [facility] Other 04-15-2023 10:30-0400 Body weight 139.26 kg Marisol Zelaya Other [facility] Other 04-15-2023 10:30-0400 Diastolic blood pressure 80 mm[Hg] Marisol Zelaya Other [facility] Other 04-15-2023 10:30-0400 Respiratory rate 18 /min Marisol Zelaya Other [facility] Other 04-15-2023 10:30-0400 SaO2% (BldA) [Mass fraction] 98 % Marisol Zelaya Other [facility] Other 04-15-2023 10:30-0400 Systolic blood pressure 125 mm[Hg] Marisol Zelaya Other [facility] Other Encounters Encounter Date Encounter Type Care Provider Facility Start: 07-02-2024 End: 07-02-2024 ambulatory MILAN P HOUSE Facility:[facility] Start: 06-28-2024 ambulatory MILAN P HOUSE Facilit y:[facility] Clinic Start: 05-24-2024 End: 05-24-2024 ambulatory MAURIZIO PATRICK Not Available Start: 04-18-2024 End: 04-18-2024 ambulatory MILAN P HOUSE Facility:[facility] Start: 04-18-2024 End: 04-18-2024 ambulatory COMFORT JIMENEZ Not Available Start: 04-09-2024 End: 04-09-2024 ambulatory DO MILAN P HOUSE Facility:[facility] Start: 02-22-2024 End: 02-22-2024 ambulatory MILAN P HOUSE Facility:[facility] Start: 01-23-2024 End: 01-23-2024 ambulatory MILAN P HOUSE Facility:[facility] Start: 01-16-2024 End: 01-16-2024 ambulatory MILAN P HOUSE Facility:[facility] Start: 01-10-2024 End: 01-10-2024 ambulatory DO MILAN P HOUSE Facility:[facility] Start: 11-24-2023 End: 11-24-2023 ambulatory DO MILAN P HOUSE Facility:[facility] Start: 09-23-2023 End: 09-23-2023 ambulatory Abbey Robin Other [facility] Other Start: 09-23-2023 Office outpatient visit 15 minutes Abbey Robin [facility] Start: 08-24-2023 End: 08-24-2023 ambulatory MILAN P HOUSE Facility:[facility] Start: 08-24-2023 End: 08-24-2023 ambulatory MILAN P HOUSE Facility:[facility] Start: 08-15-2023 End: 08-15-2023 ambulatory MILAN P HOUSE Facility:[facility] Start: 07-26-2023 End: 07-26-2023 ambulatory MILAN P HOUSE Facility:[facility] Start: 04-15-2023 End: 04-15-2023 ambulatory Marisol Zelaya Other [facility] Other Start: 04-15-2023 Office outpatient ne w [...] :1532 Payers Date Payer Category Payer Medicare [id number] 2.1 [id number] 1975 Unknown [id number] 2.16.84 0.1.118616.3.579.2.593 1975 Unknown [id number] 2.16.84 0.1.819049.3.579.2.593 1974 Unknown [id number] 2.16.84 0.1.006590.3.579.2.593 1974 Unknown [id number] 2.16.84 0.1.069654.3.579.2.593 1974 Unknown [id number] 2.16.84 0.1.344424.3.579.2.593 1974 Unknown [id number] 2.16.84 0.1.162533.3.579.2.593 1975 Unknown [id number] 2.16.84 0.1.633257.3.579.2.593 1974 Unknown [id number] 2.16.84 0.1.273727.3.579.2.593 1974 Unknown [id number] 2.16.84 0.1.987889.3.579.2.593 1974 Unknown [id number] 2.16.84 0.1.536263.3.579.2.593 1974 Unknown [id number] 2.16.84 0.1.043904.3.579.2.593 1974 Unknown [id number] 2.16.84 0.1.519797.3.579.2.593 1974 Unknown [id number] 2.16.84 0.1.829900.3.579.2.593 1974 Unknown [id number] 2.16.84 0.1.905238.3.579.2.1259 1974 Unknown [id number] 2.16.84 0.1.034746.3.579.2.1259 1974 Unknown [id number] 2.16.8 40.1.945687.3.579.2. 1974 Unknown [id number] 2.16.8 40.1.563946.3.579.2. 1974 Unknown [id number] 2.16.8 40.1.341116.3.579.2.71 1974 Unknown [id number] 2.16.8 40.1.380080.3.579.2.71 1974 Unknown [id number] 2.16.8 40.1.551624.3.579.2. 1974 Unknown [id number] 2.16.8 40.1.110136.3.579.2.71 1974 Unknown [id number] 2.16.8 40.1.831808.3.579.2. 1974 Unknown [id number] 2.16.8 40.1.072142.3.579.2.71 1974 Unknown [id number] 2.16.8 40.1.260008.3.579.28 1974 Unknown [id number] 2.16.8 40.1.267330.3.579.2.718 1960 Medicare [id number] Unknown [id number] Social History Date Type Detail Facility Unknown if ever smoked [facility] Other Sex Assigned At Sex Assigned At Bir th [facility] Other Clinical Notes 04-15-2022 to 05-22-2024 Note Date & Type Note Facility 05-22-2024 Note Entered by DYLAN NAILS DO on May 22, 2024 08:21:07 EDT From: MILAN NAILS DO To: [facility] Sent: 05/22/2024 08:21:07 EDT Subject: Medication Management Submitted: Complete:SUMAtriptan (SUMAtriptan 100 mg oral tablet) Signed by MILAN NAILS DO 05/22/2024 08:21:00 EDT Approved with modifications: SUMAtriptan (sumatriptan 100 mg tablet) TAKE 1 TABLET BY MOUTH DAILY Qty: 12 EA Days Supply: 12 Refills: 2 Substitutions Allowed Route To Pharmacy - [facility] From: [facility] To: MILAN NAILS DO Sent: May [...] Refills: 2 Substitutions Allowed Notes from Pharmacy: [facility] 05-02-2024 Note Entered by DYLAN NAILS DO on May 02, 2024 11:28:48 EDT From: MILAN NAILS DO To: [facility] Sent: 05/02/2024 11:28:48 EDT Subject: Medication Management Submitted: Complete:fexofenadine (fexofenadine 180 mg oral tablet) Signed by MILAN NAILS DO 05/02/2024 11:28:00 EDT Approved with modifications: fexofenadine (fexofenadine 180 mg tablet) TAKE 1 TABLET BY MOUTH DAILY Qty: 30 tab(s) Days Supply: 30 Refills: 5 Substitutions Allowed Route To Pharmacy - [facility] From: [facility] To: MILAN NAILS DO Sent: May [...] Refills: 5 Substitutions Allowed Notes from Pharmacy: [facility] 02-22-2024 Note Entered by DYLAN NAILS DO on February 22, 2024 11:51:43 EDT From: MILAN NAILS DO To: [facility] Sent: 02/22/2024 11:51:43 EDT Subject: Medication [...] Refills: 5 Substitutions Allowed Route To Pharmacy [facility] Approved SUMAtriptan (sumatriptan 100 mg tablet) TAKE 1 TABLET BY MOUTH DAILY Qty: 12 EA Days Supply: 12 Refills: 2 Substitutions Allowed Route To Pharmacy - [facility] Approved with modifications: propranolol (propranolol ER 80 mg capsule,24 hr,extended release) TAKE 1 CAPSULE BY MOUTH DAILY Qty: 30 cap(s) Days Supply: 30 Refills: 5 Substitutions Allowed Route To Pharmacy - [facility] Patient matched by MILAN NAILS DO on 02/22/2024 11:50:58 EDT From: [facility] To: MILAN NAILS DO Sent: February [...] Refills: 2 Substitutions Allowed Notes from Pharmacy: [facility] 01-23-2024 Note Entered by DYLAN NAILS DO on January 23, 2024 13:46:16 EDT From: MILAN NAILS DO To: [facility] Sent: 01/23/2024 13:46:16 EDT Subject: Medication [...] 11 Substitutions Allowed Route To Pharmacy - [facility] Patient matched by MILAN NAILS DO on 01/23/2024 13:45:54 EDT From: [facility] To: MILAN NAILS DO Sent: January [...] Refills: 11 Substitutions Allowed Notes from Pharmacy: [facility] 01-16-2024 Note Entered by DYLAN NAILS DO on January 16, 2024 14:24:31 EDT From: MILAN NAILS DO To: [facility] Sent: 01/16/2024 14:24:31 EDT Subject: Medication Management Documented Complete:omeprazole (omeprazole 20 mg oral delayed release capsule) Signed by MILAN NAILS DO 01/16/2024 14:24:00 EDT Approved with modifications: omeprazole (omeprazole 20 mg capsule,delayed release) TAKE 1 CAPSULE BY MOUTH DAILY Qty: 30 cap(s) Days Supply: 30 Refills: 11 Substitutions Allowed Route To Pharmacy - [facility] Patient matched by MILAN NAILS DO on 01/16/2024 14:24:11 EDT From: [facility] To: MILAN NAILS DO Sent: January [...] Refills: 11 Substitutions Allowed Notes from Pharmacy: [facility] 11-07-2023 Note Entered by DYLAN NAILS DO on November 07, 2023 07:53:45 EST From: MILAN NAILS DO To: [facility] Sent: 11/07/2023 07:53:45 EST Subject: Medication [...] 5 Substitutions Allowed Route To Pharmacy - [facility] Approved with modifications: lisinopril (lisinopril 20 mg tablet) TAKE 1 TABLET BY MOUTH DAILY Qty: 90 tab(s) Days Supply: 90 Refills: 5 Substitutions Allowed Route To Pharmacy - [facility] From: [facility] To: MILAN NAILS DO Sent: November 06, 2023 9:32:22 AM 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 ? Change your dressing at least once [...] at home: Medicines ? Take or apply wmuq-hhx-xqcxahj and prescription medicines only as told by [...] by your health care provider. (morecontent not included)...[id number]* Encounter Date Diagnosis Assessment Notes [...] is not contagious from itself or drainage. [facility] Other 05-30-2023 NoteCONSULTATION CONSULTATION DATE: 02/15/2023 TO: [...] the lower extremities. MEDICATION: Current medication includes Flatgap 5 mg t.i.d. p.r.n. Patient reports it [...] our patients to inform us about any qerc-rgb-ymcrvuq medications or herbal remedies/nutritional supplements/alternative remedies. 2. [...] treatment options with their primary care provider.[id number] Note CONSULTATION CONSULTATION DATE: 01/06/2023 TO: Dr. [...] our patients to inform us about any hmmb-yxa-ctzvcfv medications or herbal remedies/nutritional supplements/alternative remedies. 2. [...] treatment options with their primary care provider.[facility] [id number] Note CONSULTATION PROCEDURE DATE: 10/06/2022 PREOPERATIVE DIAGNOSIS: [...] will be followed up in the office.[facility] [id number] NoteCONSULTATION CONSULTATION DATE: 08/26/2022 HISTORY OF PRESENT [...] his muscle relaxer. Our clinic prescribes his Flatgap 5/325 b.i.d. and diclofenac 75 mg b.i.d. [...] normally does. All questions were answered today.[facility] [id number] NoteCONSULTATION CONSULTATION DATE: 07/22/2022 HISTORY OF PRESENT [...] He current does see Dr. Patrick at [facility] as well. Activities that aggravate his pain are pulling, sitting, walking, lying down and bending. He will alternate heat and ice which he feels does not make a significant difference. Medications include trazodone 50 mg q.h.s., tizanidine 4 mg b.i.d., Lyrica 50 mg t.i.d., diclofenac 75 mg b.i.d. and Flatgap 5/325 b.i.d. He does attend pool therapy at the [facility] 2-3 times a week, which [...] be followed up in the clinic thereafter.[facility] 04-22-2022 NoteCONSULTATION PROCEDURE DATE: 04/22/2022 PRE AND [...] will be followed up in the office.[facility] [id number] NoteCONSULTATION CONSULTATION DATE: 04/15/2022 This is a [...] mg b.i.d., Lyrica 50 mg b.i.d. and Flatgap 5/325 b.i.d. He is complaining of trouble [...] is gained for his trigger point injections.[facility] general Narrative - Reported* Type Description Date Medical History HTN (hypertension) Medical History GERD (gastroesophageal reflux di sease) Medical History Chronic pain Medical History Anxiety Surgical History tonsillectomy and adenoidectomy Surgical History ablasion [facility] Other History general Narrative - Reported* Type Description Date Medical History HTN (hypertension) Medical History GERD (gastroesophageal reflux di sease) Medical History Chronic pain Medical History Anxiety Surgical History tonsillectomy and adenoidectomy Surgical History ablasion Surgical History nerve block Surgical History epidural [facility] Other Summary Purpose Family History No Family [...] section and content) DATE CREATED AUTHOR 03/09/2018 [facility] DATE CREATED AUTHOR AUTHOR'S ORGANIZ ATION 01/19/2022 [facility] DATE CREATED AUTHOR AUTHOR'S ORGANIZ ATION 02/25/2023 [facility] DATE CREATED AUTHOR AUTHOR'S ORGANIZ ATION 05/25/2024 [facility] EPIC DATE CREATED AUTHOR AUTHOR'S ORGANIZ ATION 07/04/2024 [facility] REASON FOR VISIT (unrecogniz ed section [...] BE BASED ON THE PRIMARY CLINICAL RECORDS. [facility]. provides no warranty or guarantee of the accuracy or completeness of information in this document.
--- NOTE | 2024-07-12 10:23 | PM.CN ---
Consult Note: HPI Data of Consult Patient: known to practice within the last 3 years Requesting Physician: Razia Contreras NP Primary Care Provider: GERMANIA NAILS Consult Narrative Reason for consult: f/u Narrative: Riccardo Hale a pleasant 48 year old male presents for evaluation and management of chronic neck and back pain with radiculopathy. Today rating pain 6/10 in neck, bilateral arms and hands, bilateral low back radiating to bilateral thighs and lower leg, burning tingling sharp and intermittent numbness and pain of bilateral hands RUE. Pain increases to 10/10. Patients symptoms worse with sitting or standing too long, leaning forward decreases pain. Continues to find benefit from medication regimen without side effects. Patient has failed to benefit from greater than 6 weeks PT/provider guided HEP. Recent lumbar MRI as noted below. Pain most significant in left low back radiating into left leg and right foot. Patient noting mild relief from recent L5/S1 KEMAR. historically non surigcal for lumbar pain and radiculopathy, NS in 2021 recommended spinal cord stimulation. Patient has an upcoming EMG BLE, his previous BUE emg confirmed mild CTS. Recent C7-T1 KEMAR providing 75% improvement ongoing. cc:: CC: Razia Contreras NP Review of Systems ROS Status of ROS 10 or more systems reviewed and unremarkable except as noted in history and below Musculoskeletal Reports: back pain, neck pain and extremity pain PFSH [facility] Medical History Osteoarthritis ?M19.90 - Unspecified osteoarthritis, unspecified site (ICD-10) Numbness and tingling ?R20.0 - Anesthesia of skin (ICD-10) ?R20.2 - Paresthesia of skin (ICD-10) Obesity ?E66.9 - Obesity, unspecified (ICD-10) Acid reflux ?K21.9 - Gastro-esophageal reflux disease without esophagitis (ICD-10) Former smoker ?Z87.891 - Personal history of nicotine dependence (ICD-10) Sleep apnea ?G47.30 - Sleep apnea, unspecified (ICD-10) High cholesterol ?E78.00 - Pure hypercholesterolemia, unspecified (ICD-10) Hypertension ?I10 - Essential (primary) hypertension (ICD-10) Surgical History History of tonsillectomy and adenoidectomy ?Z90.89 - Acquired absence of other organs (ICD-10) Meds Home Medications and Allergies Home Medications ?Medication ?Instructions ?Recorded ?Confirmed ?Type albuterol sulfate 90 mcg/actuation inhalation Q4H PRN shortness of 03/10/23 History aerosol inhaler breath or wheezing duloxetine 30 mg capsule,delayed 30 mg PO QDAY 03/10/23 07/03/24 History release duloxetine 60 mg capsule,delayed 60 mg PO QDAY 03/10/23 07/03/24 History release ipratropium 0.5 mg-albuterol 3 mg 3 ml inhalation TID 03/10/23 07/03/24 History (2.5 mg base)/3 mL nebulization soln lisinopril 20 mg tablet 20 mg PO QDAY 03/10/23 07/03/24 History omeprazole 20 mg capsule,delayed 20 mg PO QDAY 03/10/23 07/03/24 History release trazodone 50 mg tablet 50 mg PO .hs PRN sleep 03/10/23 07/03/24 History diclofenac sodium 75 mg 75 mg PO BID PRN pain #60 tabs 07/27/23 07/03/24 Rx tablet,delayed release pregabalin 200 mg capsule (Lyrica) 200 mg PO TID 03/01/24 07/03/24 History propranolol 80 mg capsule,24 80 mg PO DAILY 03/01/24 07/03/24 History hr,extended release hydrocodone 5 mg-acetaminophen 325 1 tab PO TID PRN pain #75 tabs 04/04/24 07/03/24 Rx mg tablet amitriptyline 25 mg tablet 25 mg PO DAILY 04/24/24 07/03/24 History baclofen 10 mg tablet 10 mg PO DAILY 04/24/24 07/03/24 History sumatriptan succinate 100 mg tablet 100 mg PO PRN migraine headache 04/24/24 History hydrocodone 5 mg-acetaminophen 325 See Rx Instructions .Route 05/25/24 07/03/24 Rx mg tablet .COMPLEX PRN pain #75 tabs Allergies Allergy/AdvReac Type Severity Reaction Status Date / Time No Known Drug Allergies Allergy Verified 07/03/24 08:14 Exam Constitutional Documenting provider has reviewed patient's vital signs: yes Common normals: no apparent distress, oriented x3, healthy appearing, alert and well nourished General appearance: cooperative Orientation/consciousness: Yes awake, Yes oriented to person, Yes oriented to place and Yes oriented to time Other: uses cane HENMT Common normals: normocephalic, hearing grossly normal bilaterally and moist oral mucous membranes Head and scalp: normocephalic Eye Common normals: PERRL Pupil: PERRL Neck & C-Spine Common normals: full ROM General: normal visual inspection Cervical spine: pain with cervical ROM Other: negative sprulings strength 5/5 in BUE sensation intact/equal BUE Chest Common normals: inspection of chest normal Respiratory Common normals: normal respiratory effort, no retractions and no use of accessory muscles Effort & inspection: able to speak in complete sentences and symmetric chest movement Back & Pelvis Common normals: thoracic and lumbar spine normal to inspection Lumbar spine/lower back: normal to inspection, ROM limited, pain with ROM, paraspinal muscle tenderness, paraspinal muscle spasm, straight leg raise positive right and straight leg raise positive left Other: positive facet loading bilat positive jo-ann bilat Muscle strength 4/5 LLE, 5/5 in RLE decreased sensation to left L5/S1 Extremity Common normals: normal to inspection and full ROM Neuro Common normals: oriented x3, CN's II-XII intact bilaterally, moves all extremities, no focal motor deficits, no sensory deficits noted and deep tendon reflexes 2+ bilaterally Sensorium/orientation: alert Gait (neuro): antalgic and assistive device used cane Motor exam: no movement abnormalities noted Psych Common normals: mental status grossly normal, thought process normal, cooperative, affect normal, speech normal and activity/motor behavior normal Speech: normal speech Thought process: normal thought process Results Additional Findings Additional findings: If on a controlled substance or opioids, I have checked an [place] report on this patient and there are no aberrancies noted in the prescribing history.??If on a controlled substance or opioid a drug screen was completed and reviewed within the last year, and if there has not been a drug screen completed we ordered one today to monitor higher risk, state monitored pain medication use. As part of providing excellent, safe, comprehensive care, the following was completed at our patient's visit: 1. A medication reconciliation and review to ensure accurate knowledge of current/active medications, including asking our patients to inform us about any [id number] medications or herbal remedies/nutritional supplements/alternative remedies. 2. A review to specifically ensure our patients have had annual screening for screening for depression, screening for tobacco use, and screening for unhealthy alcohol use. For concerning screenings had a discussion with the patient, provided patient education, and recommended follow-up with primary care provider when appropriate. If patient noted with a risk of falling, they received education on strength, gait, and balance training to prevent future risk of falling. Assessment and Plan Assessment and Plan (1) Cervical radiculopathy: (2) Cervical spondylosis: (3) Chronic prescription opiate use: Assessment and Plan: I feel these medications are improving the patient's quality of life and allow them to tolerate activities of daily living as well as participate in recreational activity.? The patient does not report intolerable side effects. The patient is NOT opioid naive and non-pharmacologic and non-opioid treatment has failed to significantly relieve the patient's pain and improve functionality. The patient has a diagnosis that is related to a somatic or visceral pain etiology. ? ?? I reviewed with the patient the potential risks and side effects with the use of? opioid medications including but not limited to respiratory depression,? sedation, and even . Within the last 12 months I have verified the patient has access to naloxone should? these effects occur. The patient was advised to let? their family know they had Naloxone in case they would need to administer? the medication. I advised the patient to avoid the use of any other? sedation substances including alcohol, THC, and benzodiazepines while? taking opioid medications due to the risk of compounding side effects and? detrimental outcomes. within the last 12 months I have reviewed the COMPENSATION AND BENEFITS ANALYST, pain treatment agreement and urine drug screen.? ?? A drug screen was completed within the last year, and no aberrancies were noted regarding their use of controlled substances. The patient understands they are subject to the terms and conditions of the pain contract that they have signed. ? ?? I have checked an [place] report on this patient today and there are no aberrancies noted in the prescribing history.? (4) Lumbar radiculopathy: (5) Lumbar spondylosis: Plan C6-7 KEMAR under fluoroscopy with Dr Carrillo for cervical radiculopathy providing 75% improvement ongoing continue f/u with neurology continue f/u with PCP, interested in RA workup as he has a family hx encouraged topical OTC nsaid cream or voltaren TID-QID to hands continue current medications, tolerating well without side effects psych eval handout provided for consideration of spinal cord stim trial for chronic lumbar radiculopathy and low back pain, hx of confirmed radiculopathy on prior EMG and has an upcoming BLE EMG with neurology. upcoming evaluation in novemeber upcoming EMG of BLE next week f/u 1 month
== END 2024-07-12 10:02 | disposition home or self-care (01) ==
LOC: PM 10:01
PROVIDERS: PCP Family Medicine; Visit Provider Nurse Practitioner
DX: M54.12 Radiculopathy, cervical region (principal); M47.812 Spondylosis without myelopathy or radiculopathy, cervical region; Z79.891 Long term (current) use of opiate analgesic; M54.16 Radiculopathy, lumbar region; M47.816 Spondylosis without myelopathy or radiculopathy, lumbar region
CPT/HCPCS: G0463

== ENCOUNTER 2024-11-08 07:26 | Outpatient (OUT) | payer MEDICARE, SELFPAY ==
--- OUTSIDE RECORDS SUMMARY | 2024-11-08 07:28 | XMS_ITS | CCD ---
Author Organization [facility] Care Team Providers Care Driller Brake Lining Name Role Phone KIRNUS, DALLAS Unavailable Unavailable KIRNUS, DALLAS Unavailable Unavailable CONWAY ., KALI Consulting Unavailable LAKSHMIPATHY ., LENCHOATH Admitting Tiffany vailable HOUSE, DR SOLO Primary Care Unavailable LAKSHMIPATHY ., NARAAYUSHATH Attending Tiffany vailable LAKSHMIPATHY ., NARENDOMEGAATH Consulting Tiffany vailable LAKSHMIPATHY ., NARAAYUSHATH Admitting Tiffany vailable LAKSHMIPATHY ., NARDAVID Consulting Tiffany vailable HOUSE, DR SOLO Primary [...] LAKSHMIPATHY ., NARAAYUSHATH Admitting Tiffany vailable HALKER .NATALIYA Consulting Unavailable [...] Admitting Unavailable HOUSE, DR SOLO Consulting Unavailable HOY ., DR GONZALEZ Primary Care Unavailable GIL ., DR LUCY Maurice Consulting Unavailable GIL ., DR LUCY Maurice Attending Unavailable GIL ., DR ULCY Maurice Admitting Unavailable CONWAY ., KALI Consulting Unavailable HOUSE, DR SOLO Primary Care Unavailable GIL ., DR LUCY Maurice Attending Unavailable GLI ., DR LUCY Maurice Admitting Unavailable CONWAY ., KALI Consulting Unavailable HOY ., DR GONZALEZ Primary Care Unavailable GIL ., DR LUCY Maurice Attending Unavailable GIL ., DR LUCY Maurice Admitting Unavailable HOUSE, DR SOLO Primary Care Unavailable CONWAY ., KALI Consulting Unavailable LAKSHMIPATHY ., NARENDRANATH Attending Tiffany vailable LAKSHMIPATHY ., NARENDRANATH Admitting Tiffany vailable LAKSHMIPATHY ., NARAAYUSHATH Consulting Tiffany vailable HOUSE, DR SOLO Primary Care Unavailable Marisol Zelaya Unavailable Abbey Robin Unavailable Milan Nails MD Primary Care Provider Comfort Masterson Unavailable Darnell RICHARDS, Nghia Unavailable [phone] COMFORT SOUZA Attending Unavailable DARNELL, NGHIA Attending Unavailable DARNELL, NGHIA Attending Unavailable COMFORT SOUZA Attending Unavailable HOUSE, MILAN P Primary Care Unavailable ZAHRA SAL Attending Unavailable DEL, TRACIE Yusuf Consulting Unavailable NEW, MUHAMID M Admitting Unavailable HOUSE, MILAN P Primary Care [...] Drug Class(es) Dates Sig (Normalized) Sig (Original) acetaminophen 325 mg / HYDROcodone bitartrate 5 mg oral tablet (9 sources) Opioid Agonist take 1 tablet by jay th every six hours as needed for pain HYDROcodone-acetami nophen ([place]) 5-325 MG tablet 1 tablet every 6 (six) hours if needed for severe pain Active take 1 tablet by jay th every six hours as needed [place] 5-325 MG 1 tablet as needed Orally every 6 hrs Active [id number] actuat albuterol 0.09 mg/actuat metered dose inhaler (2 sources) beta2-Adrenergic Agonist Albuter ol Sulfate HFA 108 (90 Base) MCG/ACT Inhalation for 25 Days Active Albuterol Sulfat e HFA 108 (90 Base) MCG/ACT Inhalation for 25 Days Active amitriptyline hydrochloride 25 mg oral tablet (7 sources) Tricyclic Antidepressant Start: 08-01-2024 take 1-0.5 tablets by mouth once daily at bedtime amitriptyline (Elavil) 25 MG tablet Indications: Paresthesia 1 1/2-2 po qhs 60 tablet 3 08/01/2024 Active Start: 07-04-2024 take 0.5-1 tablets b y mouth at bedtime amitriptyline (Elavil) 25 MG tablet Indications: Paresthesia TAKE 1/2 (ONE-HALF) TO 1 (ONE) TABLET BY MOUTH AT BEDTIME 30 tablet 07/04/2024 Active Start: 04-18-2024 take 0.5-1 tablets b y mouth once daily at bedtime amitriptyline (Elavil) 25 MG tablet Indications: Paresthesia 1/2 - 1 tab PO QHS 30 tablet 2 04/18/2024 Active amoxicillin 875 mg / clavulanate 125 mg oral tablet (1 source) Penicillin-class Antibacterial Start: 09-23-2023 take 1 tablet by mouth every twelve hours Amoxicillin-Pot Clavulanate 875-125 MG 1 tablet Orally every 12 hrs for 10 day(s) Sep, Active baclofen 5 mg oral tablet (11 sources) gamma-Aminobutyric Acid-ergic Agonist Start: 10-29-2024 baclofen (Lioresal) 5 MG tablet Indications: Chronic bilateral low back pain, unspecified whether sciatica present TAKE 1 TABLET BY MOUTH THREE TIMES DAILY IN THE MORNING THEN IN THE EVENING THEN AT BEDTIME 90 tablet 1 10/29/2024 Active Start: 05-28-2024 End: 08-18-2024 take 1 tablet by mouth in the morning, then take 1 tablet by mouth in the evening, then take 1 tablet by mouth at bedtime baclofen (Lioresal) 5 MG tablet Indications: Chronic bilateral low back pain, unspecified whether sciatica present Take 1 tablet (5 mg) by mouth in the morning and 1 tablet (5 mg) in the evening and 1 tablet (5 mg) before bedtime. 90 tablet 1 07/19/2024 08/18/2024 Active Start: 03-07-2024 take 1 tablet by jay th in the morning, then take 1 tablet by mouth in the evening, then take 1 tablet by mouth at bedtime baclofen (Lioresal) 5 MG tablet Indications: Chronic bilateral low back pain, unspecified whether sciatica present Take 1 tablet (5 mg) by mouth in the morning and 1 tablet (5 mg) in the evening and 1 tablet (5 mg) before bedtime. 90 tablet 2 03/07/2024 Active Baclofen 10 MG O ral for 30 Days Active benzonatate 200 mg [...] DULoxetine 30 mg delayed release oral capsule (11 sources) Serotonin and Norepinephrine Reuptake Inhibitor Start: 08-01-2024 take 1 capsule by mouth once daily DULoxetine (Cymbalta) [address] capsule Indications: Neuropathic pain TAKE 1 CAPSULE BY MOUTH DAILY 30 capsule 3 08/01/2024 Active Start: 03-26-2024 take 1 capsule by mo [facility] once daily DULoxetine (Cymbalta) [address] capsule Indications: Neuropathic pain TAKE 1 CAPSULE BY MOUTH DAILY 30 capsule 3 03/26/2024 Active take 1 capsule by mo [facility] once daily DULoxetine HCl 30 MG TAKE 1 CAPSULE BY MOUTH DAILY Oral for 30 Days Active take 1 capsule by mo [facility] every twenty-four hours DULoxetine HCl 60 MG 1 capsule Orally Once a day Active fexofenadine hydrochloride 180 mg oral tablet (9 sources) Histamine-1 Receptor Antagonist take 1 tablet by mouth once daily fexofenadine (Leigh) 180 MG tablet Take 180 mg by mouth Daily Active take 1 tablet by jay th every twelve hours Fexofenadine HCl 60 MG 1 tablet Orally T wice a day Active fluticasone propionate 0.05 mg/actuat metered dose nasal spray (1 source) Corticosteroid Start: 09-23-2023 take 2 spray(s) nasal route once daily Fluticasone Propionate 50 MCG/ACT 2 sprays Nasally Once a day for 14 day(s) Sep, Active lisinopril 20 mg oral tablet (9 sources) Angiotensin Converting Enzyme Inhibitor take 1 tablet by mouth once daily lisinopril 20 MG tablet Take 20 mg by mouth Daily Active Medical Marijuana / Cannabinoid Product as documented (2 sources) Medical Marijuan a / Cannabinoid Product as documented as documented as documented as documented Active omeprazole 40 mg delayed release oral capsule (9 sources) Proton Pump Inhibitor take 1 capsule by mouth before mealtime omeprazole (PriLOSEC) [address] capsule Take 40 mg by mouth in the morning. Take before meals. Do not crush or chew.. Active predniSONE 20 mg oral tablet (3 sources) Start: 09-23-2023 take 1 tablet by mouth every twelve hours predniSONE 20 MG 1 tablet Orally bid for 5 day(s) Sep, Active Start: 04-15-2023 predniSONE 20 MG Take 3 tabs daily x 3 days, then take 2 tabs daily x 3 days, then take 1 tab daily x 3 days. Orally Once a day for 9 days Mar, Not-Taking/PRN pregabalin 200 mg oral capsule (11 sources) Start: 01-31-2024 End: 01-30-2025 take 1 capsule by mouth in the morning, then take 1 capsule by mouth in the evening, then take 1 capsule by mouth at bedtime pregabalin (Lyrica) 200 MG capsule Indications: Low back pain, unspecified back pain laterality, unspecified chronicity, unspecified whether sciatica present Take 1 capsule (200 mg) by mouth in the morning and 1 capsule (200 mg) in the evening and 1 capsule (200 mg) before bedtime. Due now. 270 capsule 1 11/01/2024 01/30/2025 Active Pregabalin 200 M G Oral for 30 Days Active propranolol hydrochloride 80 mg oral tablet (7 sources) beta-Adrenergic Piyush take 1 tablet by mouth in the morning propranolol (Inderal) 80 MG tablet Take 80 mg by mouth in the morning and 80 mg before bedtime. Active SUMAtriptan 100 mg oral tablet (7 sources) Serotonin-1b and Serotonin-1d Receptor Agonist take 1 tablet by mouth once SUMAtriptan (Imitrex) 100 MG tablet Take 100 mg by mouth 1 (one) time if needed for migraine Active Problems Active Problems Problem Classification Problem Date Documented Date Episodic/Chronic Allergic reactions (1 source) Allergic contact dermatitis due to plants, except food Episodic Chronic obstructive pulmonary disease and bronchiectasis (1 source) Bronchitis, not specified as acute or chronic Episodic Essential hypertension (2 sources) Hypertensive disorder; Translations: [Hypertension, unspecified] Chronic Intestinal obstruction without hernia (2 sources) Ileus, unspecified; Translations: [Unspecified intestinal obstruction, unspecified as to partial versus complete obstruction] Onset: 07-25-2024 Episodic Nausea and vomiting (1 source) Nausea with vomiting, unspecified; Translations: [Nausea with vomiting, unspecified] Onset: 07-25-2024 Episodic Osteoarthritis (2 sources) Arthropathy of left hip [...] [OTHER SPECIFIED MONONEUROPATHIES] Onset: 02-16-2023 Chronic Other nervous system disorders (7 sources) Neuropathy; Translations: [Polyneuropathy, unspecified] Onset: 04-11-2024 04-11-2024 Chronic Other nervous system disorders (5 sources) Bilateral carpal tunnel syndrome; Translations: [Carpal tunnel syndrome, bilateral upper limbs] 07-19-2024 Chronic Other non-traumatic joint disorders (1 source) Pain in left hip; Translations: [PAIN IN LEFT HIP] Onset: 01-10-2023 Episodic Other non-traumatic joint disorders (1 source) Pain in right hip; Translations: [PAIN IN RIGHT HIP] Onset: 01-10-2023 Episodic Other upper respiratory infections (1 source) Acute sinusitis, unspecified Episodic Spondylosis; intervertebral disc disorders; other back problems (20 sources) Spondylosis without myelopathy or radiculopathy, lumbar region; Translations: [Other intervertebral disc degeneration, lumbar region] Onset: 03-16-2022 Chronic Spondylosis; intervertebral disc disorders; other back problems (20 sources) Muscle spasm of back; Translations: [Intervertebral disc disorders with radiculopathy, lumbar region] Onset: 08-03-2022 Episodic Unclassified (1 source) LOW BACK PAIN, UNSPECIFIED; Translations: [LOW BACK PAIN, UNSPECIFIED] Onset: 03-17-2022 Unclassified (1 source) Abdominal Pain; Vomiting; Diarrhea Onset: 07-24-2024 Past or Other Problems Problem Classification Problem Date Documented Da te Episodic/Chronic Other nervous system disorders (7 sources) Sensory ataxia ; Translations: [Other lack of coordination] Onset: 04-11-2024 04-11-2024 Episodic Other nervous system disorders (7 sources) Numbness of lower limb ; Translations: [Anesthesia of skin] Onset: 04-11-2024 04-11-2024 Episodic Results Test Name Value Interpretation Reference Range Facility Outside Recordson 08-09-2024 Outside Records [id number]. [id number] Normal [facility] CBC AND AUTO DIFFon 07-27-20 ABSOLUTE BASOPHIL 0.1 X10E9/L Normal 0.0-0.2 [facility] Comment on above: Performed By: #### C ANTONIETTA HERRERA, 3040-3 #### [facility] ([id number]) [address] [place] [address] 44746 ABSOLUTE NEUTROPHIL 5.7 X10E9/L Normal 1.5-6.6 [facility] Comment on above: Performed By: #### C JAVIER CMP, 3040-3 #### [facility] ([id number]) [address] [place] [address] 04173 Basophils/100 WBC (Bld) 0.6 % Normal [facility] Comment on above: Performed By: #### C ANTONIETTA HERRERA, 3039-11 #### [facility] ([id number]) [address] [place] [address] 78616 Eosinophils (Bld) [#/Vol] 0.2 10*3/uL Normal 0.0-0.4 [facility] Comment on above: Performed By: #### Yousif HERRERA CMP, 3039-11 #### [facility] ([id number]) [address] [place] [address] 72421 Eosinophils/100 WBC (Bld) 2.4 % Normal [facility] Comment on above: Performed By: #### Yousif HERRERA CMP, 3039-11 #### [facility] ([id number]) [address] [place] [address] 01405 Erythrocyte distribution width (RBC) [Ratio] 12.8 % Normal 11.5-15.0 [facility] Comment on above: Performed By: #### Yousif HERRERA CMP, 3039-11 #### [facility] ([id number]) [address] [place] [address] 44685 Hematocrit (Bld) [Volume fraction] 40.2 % Normal 39-49 [facility] Comment on above: Performed By: #### Yousif HERRERA CMP, 3039-11 #### [facility] ([id number]) [address] [place] [address] 07137 Hemoglobin (Bld) [Mass/Vol] 13.4 g/dL Normal 13.0-17.0 [facility] Comment on above: Performed By: #### Yousif HERRERA CMP, 3039-11 #### [facility] ([id number]) [address] [place] [address] 99262 Lymphocytes (Bld) [#/Vol] 2.5 10*3/uL Normal 1.0-3.5 [facility] Comment on above: Performed By: #### Yousif HERRERA CMP, 3039-11 #### [facility] ([id number]) [address] [place] [address] 50243 Lymphocytes/100 WBC (Bld) 26.9 % Normal [facility] Comment on above: Performed By: #### Yousif HERRERA, CMP, 3039-11 #### [facility] ([id number]) [address] [place] [address] 98109 MCH (RBC) [Entitic mass] 28.9 pg Normal 27-34 [facility] Comment on above: Performed By: #### Yousif HERRERA CMP, 3039-11 #### [facility] ([id number]) [address] [place] [address] 90879 MCHC (RBC) [Mass/Vol] 33.4 g/dL Normal 32-36 [facility] Comment on above: Performed By: #### Yousif HERRERA CMP, 3039-11 #### [facility] ([id number]) [address] [place] [address] 54949 MCV (RBC) [Entitic vol] 87 fL Normal 80-100 [facility] Comment on above: Performed By: #### Yousif HERRERA, CMP, 3039-11 #### [facility] ([id number]) [address] [place] [address] 32140 Monocytes (Bld) [#/Vol] 0.9 10*3/uL Normal 0-0.9 [facility] Comment on above: Performed By: #### Yousif HERRERA, CMP, 3039-11 #### [facility] ([id number]) [address] [place] [address] 38186 Monocytes/100 WBC (Bld) 9.2 % Normal [facility] Comment on above: Performed By: #### Yousif HERRERA, CMP, 3039-11 #### [facility] ([id number]) [address] [place] [address] 38639 Neutrophils/100 WBC (Bld) 60.9 % Normal [facility] Comment on above: Performed By: #### Yousif HERRERA CMP, 3039-3 #### [facility] ([id number]) [address] [place] [address] 12422 Platelet mean volume (Bld) [Entitic vol] 8.7 fL Normal 7-12 [facility] Comment on above: Performed By: #### Yousif HERRERA CMP, 3039-3 #### [facility] ([id number]) [address] [place] [address] 01975 Platelets (Bld) [#/Vol] 351 10*3/uL Normal 150-450 [facility] Comment on above: Performed By: #### Yousif HERRERA CMP, 3039-3 #### [facility] ([id number]) [address] [place] [address] 27610 RBC COUNT 4.64 X10E12/L Normal 4.10-5.70 [facility] Comment on above: Performed By: #### Yousif HERRERA CMP, 3 #### [facility] ([id number]) [address] [place] [address] 23453 WBC (Bld) [#/Vol] 9.3 10*3/uL Normal 4.0-11.0 [facility] Comment on above: Performed By: #### Yousif HERRERA CMP, 3 #### [facility] ([id number]) [address] [place] [address] 29793 COMPREHENSIVE METABOLIC PANE Brian 07-27-2024 Albumin [Mass/Vol] 3.8 g/dL Normal 3.2-5.3 [facility] Comment on above: Performed By: #### Yousif HERRERA, CMP, 3039-3 #### [facility] ([id number]) [address] [place] [address] 44793 ALP [Catalytic activity/Vol] 53 U/L Normal 39-130 [facility] Comment on above: Performed By: #### C BCA, CMP, 3039-3 #### [facility] ([id number]) [address] [place] [address] 15884 ALT [Catalytic activity/Vol] 16 U/L Normal 0-40 [facility] Comment on above: Performed By: #### C BCA, CMP, 3039-3 #### [facility] ([id number]) [address] [place] [address] 38267 Anion gap [Moles/Vol] 9 mmol/L Normal 5-15 [facility] Comment on above: Performed By: #### C BCA, CMP, 3 #### [facility] ([id number]) [address] [place] [address] 28762 AST [Catalytic activity/Vol] 15 U/L Normal 0-41 [facility] Comment on above: Performed By: #### C BCA, CMP, 3039-3 #### [facility] ([id number]) [address] [place] [address] 49763 Bilirubin [Mass/Vol] 1.0 mg/dL Normal 0.3-1.2 [facility] Comment on above: Performed By: #### C BCA, CMP, 3 #### [facility] ([id number]) [address] [place] [address] 41002 Calcium [Mass/Vol] 8.8 mg/dL Normal 8.5-10.5 [facility] Comment on above: Performed By: #### C BCA, CMP, 3039-3 #### [facility] ([id number]) [address] [place] [address] 04913 Chloride [Moles/Vol] 106 mmol/L Normal 98-109 [facility] Comment on above: Performed By: #### C BCA, CMP, 3039-3 #### [facility] ([id number]) [address] [place] [address] 11025 CO2 [Moles/Vol] 25 mmol/L Normal 22-32 [facility] Comment on above: Performed By: #### C ANTONIETTA HERRERA, 0-3 #### [facility] ([id number]) [address] [place] [address] 02984 Creatinine [Mass/Vol] 0.83 mg/dL Normal 0.70-1.20 [facility] Comment on above: Result Comment: METH OD TRACEABLE TO IDMS STANDARD Performed By: #### C ANTONIETTA HERRERA, 3 #### [facility] ([id number]) [address] [place] [address] 38567 eGFR (CKD-EPI) NON-RACE DEPENDENT >90 Normal >59 [facility] Comment on above: Result Comment: Reported eGFR is based on the CKD-EPI 2020 equation that does not use a race coefficient. Performed By: #### C ANTONIETTA HERRERA, 3 #### [facility] ([id number]) [address] [place] [address] 67470 Glucose [Mass/Vol] 103 mg/dL High 65-99 [facility] Comment on above: Performed By: #### Yousif HERRERA CMP, 3039-3 #### [facility] ([id number]) [address] [place] [address] 00527 Potassium [Moles/Vol] 4.3 mmol/L Normal 3.5-5.0 [facility] Comment on above: Performed By: #### Yousif HERRERA CMP, 3039-3 #### [facility] ([id number]) [address] [place] [address] 97582 Protein [Mass/Vol] 6.3 g/dL Normal 6.0-8.0 [facility] Comment on above: Performed By: #### Yousif HERRERA CMP, 3039-3 #### [facility] ([id number]) [address] [place] [address] 63483 Sodium [Moles/Vol] 140 mmol/L Normal 134-146 [facility] Comment on above: Performed By: #### C JAVIER, CMP, 3040-3 #### [facility] ([id number]) [address] [place] [address] 18233 Urea nitrogen [Mass/Vol] 5 mg/dL Normal 5-23 [facility] Comment on above: Performed By: #### C JAVIER, CMP, 3039-3 #### [facility] ([id number]) [address] [place] [address] 90375 MAGNESIUMon 07-27-2024 Magnesium [Mass/Vol] 2.1 mg/dL Normal 1.8-2.6 [facility] Comment on above: Performed By: #### C JAVIER, CMP, 3039-3 #### [facility] ([id number]) [address] [place] [address] 61797 CBC AND AUTO DIFFon 07-26-20 24 ABSOLUTE BASOPHIL 0.0 X10E9/L Normal 0.0-0.2 [facility] Comment on above: Performed By: #### Yousif BCA, CMP, 3039-3 #### [facility] ([id number]) [address] [place] [address] 86580 ABSOLUTE NEUTROPHIL 5.6 X10E9/L Normal 1.5-6.6 [facility] Comment on above: Performed By: #### C BCA, CMP, 0-3 #### [facility] ([id number]) [address] [place] [address] 29347 Basophils/100 WBC (Bld) 0.5 % Normal [facility] Comment on above: Performed By: #### Yousif BCA, CMP, 0-3 #### [facility] ([id number]) [address] [place] [address] 62467 Eosinophils (Bld) [#/Vol] 0.3 10*3/uL Normal 0.0-0.4 [facility] Comment on above: Performed By: #### Yousif HERRERA CMP, 3039-11 #### [facility] ([id number]) [address] [place] [address] 61911 Eosinophils/100 WBC (Bld) 3.7 % Normal [facility] Comment on above: Performed By: #### Yousif HERRERA [facility], 3039-11 #### [facility] ([id number]) [address] [place] [address] 81692 Erythrocyte distribution width (RBC) [Ratio] 12.7 % Normal 11.5-15.0 [facility] Comment on above: Performed By: #### Yousif HERRERA CMP, 3039-11 #### [facility] ([id number]) [address] [place] [address] 23922 Hematocrit (Bld) [Volume fraction] 41.7 % Normal 39-49 [facility] Comment on above: Performed By: #### Yousif HERRERA [facility], 3039-11 #### [facility] ([id number]) [address] [place] [address] 03394 Hemoglobin (Bld) [Mass/Vol] 14.4 g/dL Normal 13.0-17.0 [facility] Comment on above: Performed By: #### Yousif HERRERA [facility], 3039-11 #### [facility] ([id number]) [address] [place] [address] 33986 Lymphocytes (Bld) [#/Vol] 2.2 10*3/uL Normal 1.0-3.5 [facility] Comment on above: Performed By: #### Yousif HERRERA CMP, 3039-11 #### [facility] ([id number]) [address] [place] [address] 08833 Lymphocytes/100 WBC (Bld) 25.4 % Normal [facility] Comment on above: Performed By: #### Yousif HERRERA CMP, 3039-11 #### [facility] ([id number]) [address] [place] [address] 81384 MCH (RBC) [Entitic mass] 29.7 pg Normal 27-34 [facility] Comment on above: Performed By: #### Yousif HERRERA CMP, 3039-11 #### [facility] ([id number]) [address] [place] [address] 56149 MCHC (RBC) [Mass/Vol] 34.5 g/dL Normal 32-36 [facility] Comment on above: Performed By: #### Yousif HERRERA CMP, 3039-11 #### [facility] ([id number]) [address] [place] [address] 75432 MCV (RBC) [Entitic vol] 86 fL Normal 80-100 [facility] Comment on above: Performed By: #### Yousif HERRERA CMP, 3039-11 #### [facility] ([id number]) [address] [place] [address] 39551 Monocytes (Bld) [#/Vol] 0.7 10*3/uL Normal 0-0.9 [facility] Comment on above: Performed By: #### Yousif HERRERA CMP, 3039-11 #### [facility] ([id number]) [address] [place] [address] 81738 Monocytes/100 WBC (Bld) 7.4 % Normal [facility] Comment on above: Performed By: #### Yousif HERRERA CMP, 3039-11 #### [facility] ([id number]) [address] [place] [address] 10563 Neutrophils/100 WBC (Bld) 63.0 % Normal [facility] Comment on above: Performed By: #### Yousif HERRERA CMP, 3 #### [facility] ([id number]) [address] [place] [address] 32492 Platelet mean volume (Bld) [Entitic vol] 8.6 fL Normal 7-12 [facility] Comment on above: Performed By: #### Yousif HERRERA, CMP, 3040-3 #### [facility] ([id number]) [address] [place] [address] 28143 Platelets (Bld) [#/Vol] 345 10*3/uL Normal 150-450 [facility] Comment on above: Performed By: #### Yousif HERRERA, CMP, 3040-3 #### [facility] ([id number]) [address] [place] [address] 38464 RBC COUNT 4.84 X10E12/L Normal 4.10-5.70 [facility] Comment on above: Performed By: #### Yousif HERRERA, CMP, 0-3 #### [facility] ([id number]) [address] [place] [address] 12759 WBC (Bld) [#/Vol] 8.8 10*3/uL Normal 4.0-11.0 [facility] Comment on above: Performed By: #### Yousif BCA, CMP, 3040-3 #### [facility] ([id number]) [address] [place] [address] 93816 COMPREHENSIVE METABOLIC PANE Brian 07-26-2024 Albumin [Mass/Vol] 3.9 g/dL Normal 3.2-5.3 [facility] Comment on above: Performed By: #### Yousif BCA, CMP, 3040-3 #### [facility] ([id number]) [address] [place] [address] 22042 ALP [Catalytic activity/Vol] 57 U/L Normal 39-130 [facility] Comment on above: Performed By: #### Yousif BCA, CMP, 0-3 #### [facility] ([id number]) [address] [place] [address] [place] [address] ALT [Catalytic activity/Vol] 21 U/L Normal 0-40 [facility] Comment on above: Performed By: #### C ANTONIETTA HERRERA, 0-3 #### [facility] ([id number]) [address] [place] [address] 25511 Anion gap [Moles/Vol] 9 mmol/L Normal 5-15 [facility] Comment on above: Performed By: #### C ANTONIETTA HERRERA, 3039-11 #### [facility] ([id number]) [address] [place] [address] 98565 AST [Catalytic activity/Vol] 18 U/L Normal 0-41 [facility] Comment on above: Performed By: #### Yousif HERRERA CMP, 3 #### [facility] ([id number]) [address] [place] [address] [place] [address] Bilirubin [Mass/Vol] 0.9 mg/dL Normal 0.3-1.2 [facility] Comment on above: Performed By: #### Yousif HERRERA [facility], 3 #### [facility] ([id number]) [address] [place] [address] 79255 Calcium [Mass/Vol] 8.8 mg/dL Normal 8.5-10.5 [facility] Comment on above: Performed By: #### Yousif HERRERA CMP, 3 #### [facility] ([id number]) [address] [place] [address] [place] [address] Chloride [Moles/Vol] 106 mmol/L Normal 98-109 [facility] Comment on above: Performed By: #### Yousif HERRERA CMP, 3039-3 #### [facility] ([id number]) [address] [place] [address] 92102 CO2 [Moles/Vol] 23 mmol/L Normal 22-32 [facility] Comment on above: Performed By: #### C JAVIER [facility], 3040-3 #### [facility] ([id number]) [address] [place] [address] 17895 Creatinine [Mass/Vol] 0.80 mg/dL Normal 0.70-1.20 [facility] Comment on above: Result Comment: METH OD TRACEABLE TO IDMS STANDARD Performed By: #### C ANTONIETTA HERRERA, 3 #### [facility] ([id number]) [address] [place] [address] 26935 eGFR (CKD-EPI) NON-RACE DEPENDENT >90 Normal >59 [facility] Comment on above: Result Comment: Reported eGFR is based on the CKD-EPI 2020 equation that does not use a race coefficient. Performed By: #### C ANTONIETTA HERRERA, 3 #### [facility] ([id number]) [address] [place] [address] 44335 Glucose [Mass/Vol] 83 mg/dL Normal 65-99 [facility] Comment on above: Performed By: #### C JAVIER [facility], 3 #### [facility] ([id number]) [address] [place] [address] 47419 Potassium [Moles/Vol] 3.4 mmol/L Low 3.5-5.0 [facility] Comment on above: Performed By: #### C JAVIER [facility], 3 #### [facility] ([id number]) [address] [place] [address] 13577 Protein [Mass/Vol] 6.6 g/dL Normal 6.0-8.0 [facility] Comment on above: Performed By: #### C ANTONIETTA HERRERA, 3 #### [facility] ([id number]) [address] [place] [address] 37297 Sodium [Moles/Vol] 138 mmol/L Normal 134-146 [facility] Comment on above: Performed By: #### Yousif HERRERA CMP, 3040-3 #### [facility] ([id number]) [address] [place] [address] 43289 Urea nitrogen [Mass/Vol] 8 mg/dL Normal 5-23 [facility] Comment on above: Performed By: #### Yousif HERRERA CMP, 3040-3 #### [facility] ([id number]) [address] [place] [address] 81612 MAGNESIUMon 07-26-2024 Magnesium [Mass/Vol] 2.0 mg/dL Normal 1.8-2.6 [facility] Comment on above: Performed By: #### Yousif HERRERA CMP, 3040-3 #### [facility] ([id number]) [address] [place] [address] 14248 POTASSIUMon 07-26-2024 Potassium [Moles/Vol] 3.3 mmol/L Low 3.5-5.0 [facility] Comment on above: Performed By: #### Yousif HERRERA CMP, 3040-3 #### [facility] ([id number]) [address] [place] [address] 78604 Potassium [Moles/Vol] 3.1 mmol/L Low 3.5-5.0 [facility] Comment on above: Performed By: #### Yousif HERRERA CMP, 3040-3 #### [facility] ([id number]) [address] [place] [address] 06724 XR ABDOMEN AP 1 VWon 024 XR ABDOMEN AP 1 VW XR ABDOMEN AP 1 VW History: SBO Exam/Technique: AP view abdomen Comparison: No relevant prior studies available. Findings/impression: Enteric tube tip is in the stomach. There is oral contrast opacifying large bowel loops excluding high-grade small bowel obstruction. There is nonobstructive bowel gas pattern Finalized by Jaspal Valenzuela MD on 07/26/2024 8:55 AM Normal [facility] CBC AND AUTO DIFFon 07-25-20 24 ABSOLUTE BASOPHIL 0.1 X10E9/L Normal 0.0-0.2 [facility] Comment on above: Performed By: #### C ANTONIETTA HERRERA, 58965-8 #### [facility] ([id number]) [address] [place] [address] 97739 ABSOLUTE NEUTROPHIL 4.3 X10E9/L Normal 1.5-6.6 [facility] Comment on above: Performed By: #### C ANTONIETTA HERRERA, #### [facility] ([id number]) [address] [place] [address] 95902 Basophils/100 WBC (Bld) 0.7 % Normal [facility] Comment on above: Performed By: #### Yousif HERRERA CMP, 96507-7 #### [facility] ([id number]) [address] [place] [address] 08594 Eosinophils (Bld) [#/Vol] 0.4 10*3/uL Normal 0.0-0.4 [facility] Comment on above: Performed By: #### Yousif HERRERA [facility], #### [facility] ([id number]) [address] [place] [address] 17950 Eosinophils/100 WBC (Bld) 4.5 % Normal [facility] Comment on above: Performed By: #### Yousif HERRERA CMP, 37378-1 #### [facility] ([id number]) [address] [place] [address] 05860 Erythrocyte distribution width (RBC) [Ratio] 12.9 % Normal 11.5-15.0 [facility] Comment on above: Performed By: #### Yousif HERRERA CMP, 45072-8 #### [facility] ([id number]) [address] [place] [address] 65443 Hematocrit (Bld) [Volume fraction] 40.5 % Normal 39-49 [facility] Comment on above: Performed By: #### C JAVIER, CMP, 98786-6 #### [facility] ([id number]) [address] [place] [address] 91004 Hemoglobin (Bld) [Mass/Vol] 13.8 g/dL Normal 13.0-17.0 [facility] Comment on above: Performed By: #### C JAVIER, CMP, #### [facility] ([id number]) [address] [place] [address] 01615 Lymphocytes (Bld) [#/Vol] 2.7 10*3/uL Normal 1.0-3.5 [facility] Comment on above: Performed By: #### Yousif HERRERA, CMP, #### [facility] ([id number]) [address] [place] [address] 40483 Lymphocytes/100 WBC (Bld) 32.2 % Normal [facility] Comment on above: Performed By: #### Yousif HERRERA, CMP, #### [facility] ([id number]) [address] [place] [address] 37731 MCH (RBC) [Entitic mass] 29.5 pg Normal 27-34 [facility] Comment on above: Performed By: #### Yousif HERRERA CMP, #### [facility] ([id number]) [address] [place] [address] 41713 MCHC (RBC) [Mass/Vol] 34.0 g/dL Normal 32-36 [facility] Comment on above: Performed By: #### Yousif BCA, CMP, #### [facility] ([id number]) [address] [place] [address] 05501 MCV (RBC) [Entitic vol] 87 fL Normal 80-100 [facility] Comment on above: Performed By: #### Yousif BCA, CMP, #### [facility] ([id number]) [address] [place] [address] 86110 Monocytes (Bld) [#/Vol] 1.0 10*3/uL High 0-0.9 [facility] Comment on above: Performed By: #### Yousif HERRERA, CMP, 23644-4 #### [facility] ([id number]) [address] [place] [address] 70591 Monocytes/100 WBC (Bld) 11.8 % Normal [facility] Comment on above: Performed By: #### Yousif HERRERA, CMP, 52497-5 #### [facility] ([id number]) [address] [place] [address] 05340 Neutrophils/100 WBC (Bld) 50.8 % Normal [facility] Comment on above: Performed By: #### Yousif HERRERA, [facility], #### [facility] ([id number]) [address] [place] [address] 54243 Platelet mean volume (Bld) [Entitic vol] 8.6 fL Normal 7-12 [facility] Comment on above: Performed By: #### Yousif HERRERA, [facility], 75672-0 #### [facility] ([id number]) [address] [place] [address] 88442 Platelets (Bld) [#/Vol] 355 10*3/uL Normal 150-450 [facility] Comment on above: Performed By: #### Yousif HERRERA, CMP, #### [facility] ([id number]) [address] [place] [address] 37138 RBC COUNT 4.67 X10E12/L Normal 4.10-5.70 [facility] Comment on above: Performed By: #### Yousif HERRERA, CMP, #### [facility] ([id number]) [address] [place] [address] 06077 WBC (Bld) [#/Vol] 8.4 10*3/uL Normal 4.0-11.0 [facility] Comment on above: Performed By: #### C JAVIER CMP, 89490-6 #### [facility] ([id number]) [address] [place] [address] 84197 COMPREHENSIVE METABOLIC PANE Brian 07-25-2024 Albumin [Mass/Vol] 3.7 g/dL Normal 3.2-5.3 [facility] Comment on above: Performed By: #### C JAVIER, ANTONIETTA, 16293-6 #### [facility] ([id number]) [address] [place] [address] 69062 ALP [Catalytic activity/Vol] 56 U/L Normal 39-130 [facility] Comment on above: Performed By: #### C ANTONIETTA HERRREA, 03683-9 #### [facility] ([id number]) [address] [place] [address] 07803 ALT [Catalytic activity/Vol] 21 U/L Normal 0-40 [facility] Comment on above: Performed By: #### C JAVIER, [facility], 49979-9 #### [facility] ([id number]) [address] [place] [address] 80943 Anion gap [Moles/Vol] 5 mmol/L Normal 5-15 [facility] Comment on above: Performed By: #### C JAVIER, CMP, 22281-0 #### [facility] ([id number]) [address] [place] [address] 55496 AST [Catalytic activity/Vol] 16 U/L Normal 0-41 [facility] Comment on above: Performed By: #### C BCA, CMP, 76211-1 #### [facility] ([id number]) [address] [place] [address] 19169 Bilirubin [Mass/Vol] 0.8 mg/dL Normal 0.3-1.2 [facility] Comment on above: Performed By: #### C JVAIER [facility], 88996-7 #### [facility] ([id number]) [address] [place] [address] 52498 Calcium [Mass/Vol] 8.4 mg/dL Low 8.5-10.5 [facility] Comment on above: Performed By: #### C JAVIER [facility], 23931-6 #### [facility] ([id number]) [address] [place] [address] 38650 Chloride [Moles/Vol] 110 mmol/L High 98-109 [facility] Comment on above: Performed By: #### C JAVIER [facility], 91986-6 #### [facility] ([id number]) [address] [place] [address] 49306 CO2 [Moles/Vol] 23 mmol/L Normal 22-32 [facility] Comment on above: Performed By: #### C JAVIER [facility], 20384-4 #### [facility] ([id number]) [address] [place] [address] 04477 Creatinine [Mass/Vol] 0.94 mg/dL Normal 0.70-1.20 [facility] Comment on above: Result Comment: METH OD TRACEABLE TO IDMS STANDARD Performed By: #### C JAVIER [facility], 45589-8 #### [facility] ([id number]) [address] [place] [address] 87719 eGFR (CKD-EPI) NON-RACE DEPENDENT >90 Normal >59 [facility] Comment on above: Result Comment: Reported eGFR is based on the CKD-EPI 2020 equation that does not use a race coefficient. Performed By: #### C ANTONIETTA HERRERA, 59139-0 #### [facility] ([id number]) [address] [place] [address] 14566 Glucose [Mass/Vol] 102 mg/dL High 65-99 [facility] Comment on above: Performed By: #### C BCA, [facility], 82077-9 #### [facility] ([id number]) [address] [place] [address] 64320 Potassium [Moles/Vol] 3.6 mmol/L Normal 3.5-5.0 [facility] Comment on above: Performed By: #### C BCA, CMP, 01680-2 #### [facility] ([id number]) [address] [place] [address] 02329 Protein [Mass/Vol] 6.3 g/dL Normal 6.0-8.0 [facility] Comment on above: Performed By: #### C BCA, CMP, 76266-0 #### [facility] ([id number]) [address] [place] [address] 91549 Sodium [Moles/Vol] 138 mmol/L Normal 134-146 [facility] Comment on above: Performed By: #### C BCA, [facility], 27767-2 #### [facility] ([id number]) [address] [place] [address] 93966 Urea nitrogen [Mass/Vol] 12 mg/dL Normal 5-23 [facility] Comment on above: Performed By: #### Yousif BCA, [facility], 52006-2 #### [facility] ([id number]) [address] [place] [address] ABDOMEN AND PELVIS W CONT on 07-25-2024 CT ABDOMEN AND PELVIS W CONT CT ABDOMEN AND PELVIS W CONT CT ABDOMEN AND PELVIS HISTORY: Obstruction. COMPARISON STUDY: 07/24/2024. TECHNIQUE: CT scan of the abdomen and pelvis performed with IV and oral contrast. 100 mL of Omnipaque 300 was injected intravenously without complication. Coronal and sagittal reformats generated and reviewed. FINDINGS: LOWER THORAX: 2 mm right lower lobe lung nodule (2/4). HEPATOBILIARY: Hepatic steatosis, no suspicious hepatic mass No biliary ductal dilatation. Vicarious excretion of contrast gallbladder, otherwise no wall thickening, no adjacent fluid. SPLEEN: Unremarkable. PANCREAS: No focal masses or ductal dilatation. ADRENALS: Indeterminate 1.2 cm left adrenal nodule. KIDNEYS/URETERS: No collecting system dilatation, stones, or solid mass lesions. GI TRACT: Dilated loops of mid abdominal small bowel measuring up to 4 cm in diameter. Oral contrast extends to the mid abdomen. This slowly transitions to decompressed right-sided small bowel without discrete transition point. Appendix is normal. Hiatal hernia as before. PELVIC ORGANS/BLADDER: History of contrast within the urinary bladder. Bladder does demonstrates wall thickening, please correlate with urinalysis. PERITONEUM/RETROPERITO NEUM: No free air or fluid. LYMPH NODES: No enlarged lymph nodes. VESSELS: Atherosclerotic calcifications without abdominal aortic aneurysm. BONES AND SOFT TISSUES: No suspicious osseous lesion. Fat-containing periumbilical hernia as before. IMPRESSION: 1. Findings of small bowel obstruction as described without discrete transition point. 2. There is a 2 mm right lower lobe lung nodule. In a low-risk patient, no further follow-up is warranted. In a high-risk patient, consider optional follow-up in 12 months. 3. Other chronic findings as described including left adrenal nodule measuring 1.2 cm which is probably benign, although risk is increased if there is a prior history of malignancy. Consider biochemical assays to determine functional status and exclude pheochromocytoma. Also consider follow-up adrenal CT protocol or chemical-shift MRI in 12 months to assess stability. CITATION: Hermilo NUNN, et al. Management of Incidental Adrenal Masses: A White Paper of the ACR Incidental Findings Committee. J Am Ag Radiol. 2017 Apr;14(8):4678-[address] scans at this facility use dose modulation, iterative reconstruction, and/or weight based dosing when appropriate to reduce radiation dose to as low as reasonably achievable. Finalized by Bam Camejo MD on 07/25/2024 10:48 AM Normal [facility] Glucose Glucometer (dC) [M ass/Vol]on 07-25-2024 Glucose [Mass/Vol] 76 mg/dL Normal 65-99 [facility] MAGNESIUMon 07-25-2024 Magnesium [Mass/Vol] 1.9 mg/dL Normal 1.8-2.6 [facility] Comment on above: Performed By: #### C JAVIER [facility], 30022-1 #### [facility] ([id number]) [address] [place] [address] 03014 XR CHEST 1 VWon 07-25-2024 XR CHEST 1 VW XR CHEST 1 VW EXAM: XR CHEST 1 VW CLINICAL INFORMATION: ng placement. COMPARISON: 07/25/2024 FINDINGS: There are no pleural effusions. There is mild left base atelectasis. There are no focal consolidations. There is no pulmonary edema or pleural effusions. Stable cardiomediastinal silhouette. Again seen is a moderate-sized hiatal hernia. There is a gastric tube. The tip extends below the diaphragm and off the [id number]. IMPRESSION: 1. No acute cardiopulmonary disease. 2. Moderate-sized hiatal hernia. There is a gastric tube with the tip extending below the diaphragm and off the [id number]. Finalized by Francisco Bangura MD on 07/25/2024 5:24 PM Normal [facility] XR CHEST 1 VW XR CHEST 1 VW HISTORY: NG placement COMPARISON: Chest x-ray 01/13/2017 FINDINGS: Portable AP upright view of the chest was performed. Enteric tube extends to the diaphragmatic hiatus. Small hiatal hernia. Cardiac silhouette is grossly within normal limits. No airspace consolidation, vascular congestion, pleural effusion or pneumothorax. IMPRESSION: * Enteric tube extends into the small hiatal hernia but terminates above the diaphragm. Finalized by Logan Carlisle MD on 07/25/2024 3:36 PM Normal [facility] CBC AND AUTO DIFFon 07-24-20 24 ABSOLUTE BASOPHIL 0.1 X10E9/L Normal 0.0-0.2 [facility] Comment on above: Performed By: #### C ANTONIETTA HERRERA, 3040-3 #### [facility] ([id number]) [address] [place] [address] 14070 ABSOLUTE NEUTROPHIL 7.3 X10E9/L High 1.5-6.6 [facility] Comment on above: Performed By: #### C ANTONIETTA HERRERA, 3039-11 #### [facility] ([id number]) [address] [place] [address] 92531 Basophils/100 WBC (Bld) 1.0 % Normal [facility] Comment on above: Performed By: #### C JAVIER CMP, 3039-11 #### [facility] ([id number]) [address] [place] [address] 12172 Eosinophils (Bld) [#/Vol] 0.3 10*3/uL Normal 0.0-0.4 [facility] Comment on above: Performed By: #### Yousif HERRERA CMP, 3039-11 #### [facility] ([id number]) [address] [place] [address] 46598 Eosinophils/100 WBC (Bld) 2.5 % Normal [facility] Comment on above: Performed By: #### Yousif HERRERA CMP, 3039-11 #### [facility] ([id number]) [address] [place] [address] 90897 Erythrocyte distribution width (RBC) [Ratio] 13.0 % Normal 11.5-15.0 [facility] Comment on above: Performed By: #### Yousif HERRERA CMP, 3039-11 #### [facility] ([id number]) [address] [place] [address] 69118 Hematocrit (Bld) [Volume fraction] 47.6 % Normal 39-49 [facility] Comment on above: Performed By: #### Yousif HERRERA CMP, 3039-11 #### [facility] ([id number]) [address] [place] [address] 43795 Hemoglobin (Bld) [Mass/Vol] 16.2 g/dL Normal 13.0-17.0 [facility] Comment on above: Performed By: #### Yousif HERRERA CMP, 3 #### [facility] ([id number]) [address] [place] [address] 14213 Lymphocytes (Bld) [#/Vol] 2.1 10*3/uL Normal 1.0-3.5 [facility] Comment on above: Performed By: #### Yousif HERRERA CMP, 3039-3 #### [facility] ([id number]) [address] [place] [address] 49715 Lymphocytes/100 WBC (Bld) 19.2 % Normal [facility] Comment on above: Performed By: #### Yousif HERRERA CMP, 3 #### [facility] ([id number]) [address] [place] [address] 41787 MCH (RBC) [Entitic mass] 29.4 pg Normal 27-34 [facility] Comment on above: Performed By: #### Yousif HERRERA [facility], 3 #### [facility] ([id number]) [address] [place] [address] 10687 MCHC (RBC) [Mass/Vol] 34.0 g/dL Normal 32-36 [facility] Comment on above: Performed By: #### Yousif HERRERA [facility], 3 #### [facility] ([id number]) [address] [place] [address] 76010 MCV (RBC) [Entitic vol] 86 fL Normal 80-100 [facility] Comment on above: Performed By: #### Yousif HERRERA [facility], 3 #### [facility] ([id number]) [address] [place] [address] 23064 Monocytes (Bld) [#/Vol] 1.3 10*3/uL High 0-0.9 [facility] Comment on above: Performed By: #### Yousif HERRERA CMP, 3039-3 #### [facility] ([id number]) [address] [place] [address] [id number] Monocytes/100 WBC (Bld) 11.6 % Normal [facility] Comment on above: Performed By: #### Yousif HERRERA CMP, 3040-3 #### [facility] ([id number]) [address] [place] [address] [id number] Neutrophils/100 WBC (Bld) 65.7 % Normal [facility] Comment on above: Performed By: #### Yousif HERRERA CMP, 3039-3 #### [facility] ([id number]) [address] [place] [address] [id number] Platelet mean volume (Bld) [Entitic vol] 8.4 fL Normal 7-12 [facility] Comment on above: Performed By: #### Yousif HERRERA CMP, 3039-3 #### [facility] ([id number]) [address] [place] [address] 44592 Platelets (Bld) [#/Vol] 470 10*3/uL High 150-450 [facility] Comment on above: Performed By: #### Yousif HERRERA CMP, 3039-3 #### [facility] ([id number]) [address] [place] [address] 31850 RBC COUNT 5.52 X10E12/L Normal 4.10-5.70 [facility] Comment on above: Performed By: #### Yousif HERRERA CMP, 3039-3 #### [facility] ([id number]) [address] [place] [address] 54388 WBC (Bld) [#/Vol] 11.1 10*3/uL High 4.0-11.0 [facility] Comment on above: Performed By: #### Yousif HERRERA CMP, 3039-3 #### [facility] ([id number]) [address] [place] [address] 66480 COMPREHENSIVE METABOLIC PANE Brian 07-24-2024 Albumin [Mass/Vol] 4.3 g/dL Normal 3.2-5.3 [facility] Comment on above: Performed By: #### C BCA, CMP, 3039-3 #### [facility] ([id number]) [address] [place] [address] 27767 ALP [Catalytic activity/Vol] 63 U/L Normal 39-130 [facility] Comment on above: Performed By: #### C BCA, CMP, 3039-3 #### [facility] ([id number]) [address] [place] [address] 04774 ALT [Catalytic activity/Vol] 25 U/L Normal 0-40 [facility] Comment on above: Performed By: #### C BCA, CMP, 3039-3 #### [facility] ([id number]) [address] [place] [address] 87672 Anion gap [Moles/Vol] 9 mmol/L Normal 5-15 [facility] Comment on above: Performed By: #### C BCA, CMP, 3039-3 #### [facility] ([id number]) [address] [place] [address] 88333 AST [Catalytic activity/Vol] 23 U/L Normal 0-41 [facility] Comment on above: Performed By: #### C BCA, CMP, 3039-3 #### [facility] ([id number]) [address] [place] [address] [place] [address] Bilirubin [Mass/Vol] 1.4 mg/dL High 0.3-1.2 [facility] Comment on above: Performed By: #### C BCA, CMP, 3039-3 #### [facility] ([id number]) [address] [place] [address] 36931 Calcium [Mass/Vol] 10.1 mg/dL Normal 8.5-10.5 [facility] Comment on above: Performed By: #### C BCA, CMP, 3039-3 #### [facility] ([id number]) [address] [place] [address] 13871 Chloride [Moles/Vol] 104 mmol/L Normal 98-109 [facility] Comment on above: Performed By: #### C ANTONIETTA HERRERA, 3040-3 #### [facility] ([id number]) [address] [place] [address] 76724 CO2 [Moles/Vol] 22 mmol/L Normal 22-32 [facility] Comment on above: Performed By: #### Yousif HERRERA CMP, 3040-3 #### [facility] ([id number]) [address] [place] [address] 75490 Creatinine [Mass/Vol] 1.05 mg/dL Normal 0.70-1.20 [facility] Comment on above: Result Comment: METH OD TRACEABLE TO IDMS STANDARD Performed By: #### Yousif HERRERA CMP, 3043 #### [facility] ([id number]) [address] [place] [address] 81261 GFR/1.73 sq M.predicted among non-blacks MDRD (S/P/Bld) [Vol rate/Area] 87 mL/min/{1.73_m2} Normal >59 [facility] Comment on above: Result Comment: Reported eGFR is based on the CKD-EPI 2020 equation that does not use a race coefficient. Performed By: #### C ANTONIETTA HERRERA, 3040-3 #### [facility] ([id number]) [address] [place] [address] 49346 Glucose [Mass/Vol] 113 mg/dL High 65-99 [facility] Comment on above: Performed By: #### Yousif HERRERA CMP, 3040-3 #### [facility] ([id number]) [address] [place] [address] 29366 Potassium [Moles/Vol] 3.7 mmol/L Normal 3.5-5.0 [facility] Comment on above: Performed By: #### Yousif HERRERA [facility], 3040-3 #### [facility] ([id number]) [address] [place] [address] 89081 Protein [Mass/Vol] 7.9 g/dL Normal 6.0-8.0 [facility] Comment on above: Performed By: #### C BCA, [facility], 3040-3 #### [facility] ([id number]) [address] [place] [address] 62315 Sodium [Moles/Vol] 135 mmol/L Normal 134-146 [facility] Comment on above: Performed By: #### C BCA, [facility], 3040-3 #### [facility] ([id number]) [address] [place] [address] 12860 Urea nitrogen [Mass/Vol] 13 mg/dL Normal 5-23 [facility] Comment on above: Performed By: #### C BCA, [facility], 3040-3 #### [facility] ([id number]) [address] [place] [address] ABDOMEN AND PELVIS W CONT on 07-24-2024 CT ABDOMEN AND PELVIS W CONT CT ABDOMEN AND PELVIS W CONT STUDY: CT ABDOMEN AND PELVIS W CONT INDICATION: Abdominal pain, acute, nonlocalized; ruq, luq, epigastric pain and vomiting since last night. TECHNIQUE: * CT abdomen and pelvis was performed after the administration of intravenous contrast. Coronal and sagittal reformatted images were generated and reviewed. Automated exposure control was utilized. * All CT scans at this facility use dose modulation, iterative reconstruction, and/or weight based dosing when appropriate to reduce radiation dose to as low as reasonably achievable. FINDINGS: Comparison is made to 10/24/2018. Partially visualized lung bases are clear. No intraperitoneal free air. Mild aortoiliac atherosclerosis without aneurysmal changes. Portal and splenic vein are patent. Liver, gallbladder, bile ducts are unremarkable. Tiny hypoattenuation in the spleen is too small to characterize and appears unchanged from 2019. An incidental 1.2 cm nodule is seen in the left adrenal gland (series 601, image 80), with low CT density (?10 HU). Pancreas, is unremarkable. Tiny right renal hypoattenuation is too small to characterize. No obstructive hydronephrosis or nephroureterolithiasis . Bladder appears unremarkable. Prostate calcifications without significant enlargement. Terminal ileum appears unremarkable. An appendix is not definitively visualized, though there are no inflammatory changes in its expected location. Moderate hiatal hernia, slightly increased in size compared to 2019. Slight fluid-filled distention of a long segment of small bowel (up to 3.6 cm) which may reflect ileus or partial obstruction. No high-grade transition point is noted. Short segment bowel wall thickening of jejunum or ileum may reflect superimposed enteritis. No significant free fluid. No retroperitoneal collection. Few nonspecific mesenteric lymph nodes, unchanged from prior with adjacent stranding may reflect sequela of remote mesenteritis, unchanged. Large fat-containing umbilical hernia, increased from 2019. Unchanged 9 mm right iliac bone density. Chronic superior endplate height loss of L1, increased from 2019. IMPRESSION: * Mild fluid-filled distention of multiple loops of small bowel which may reflect ileus or partial small bowel obstruction. No high-grade transition point is visualized. Short segment bowel wall thickening of jejunum or ileum may reflect superimposed enteritis. Consider surgical consultation. * Moderate hiatal hernia, increased from 2019. * Moderate fat-containing umbilical hernia, increased from 19. * Benign 1.2 cm left adrenal nodule, consistent with an adrenal adenoma. Consider biochemical assays to determine functional status and exclude pheochromocytoma. Recommend no further imaging evaluation. [facility] CenterOscar NUNN, et al. Management of Incidental Adrenal Masses: A White Paper of the ACR Incidental Findings Committee. J Am Ag Radiol. 2017 Apr;14(8):0370-8119. THIS REPORT CONTAINS A SIGNIFICANT RESULT AND/OR RECOMMENDATION, WHICH REQUIRES THE ATTENTION OF THE LICENSED CAREGIVER RESPONSIBLE FOR THIS PATIENT. THEREFORE, I SPECIFICALLY DESIGNATED THIS REPORT TO BE TELEPHONED BY THE RADIOLOGY DEPARTMENT. FINDINGS WERE INSTRUCTED TO BE CALLED TO THE CLINICAL SERVICE ON 07/24/2024 4:17 PM Finalized by Dnaiel Mcallister on 07/24/2024 4:17 PM Normal [facility] LIPASEon 07-24-2024 Lipase [Catalytic activity/Vol] 22 U/L Normal 17-40 [facility] Comment on above: Performed By: #### C BCA, CMP, 3040-3 #### [facility] ([id number]) [address] [facility] [address] 9-10 Nerveson 07-17-2024 [facility] 07-12-2024 Outside Records [id number]#1 .00OTGTIFF Normal [facility] Patient Letteron 07-03-2024 Patient Letter [id number]#1.0 0OTGTIFF Normal [facility] 11-12 Nerveson [facility] 05-03-2024 Outside Records [id number]#1.0 [facility] Outside Recordson 04-24-2024 Outside Records [id number]#1.0 [facility] Report on 04-24-2024 Rad - Other Radiology Report [id number]#1.0 0OTGTIFF Normal [facility] Patient Letteron 04-11-2024 Patient Letter [id number]#1.0 0OTGTIFF Normal [facility] Outside [facility] 04-05-2024 Outside Records [id number]#1.00 OTGTIFF Normal [facility] Outside Records [id number]#1.00 OTGTIFF Normal [facility] Rad - Other Radiology Report on 04-02-2024 Rad - Other Radiology Report [id number]#1.0 0OTGTIFF Normal [facility] 03-02-2024 Outside Records [id number]#1.00O [facility] Outside Recordson 12-08-2023 Outside Records [id number]#1.0 [facility] LUMBAR SPINE 6 OR MORE VWSon 01-14-2022 LUMBAR SPINE 6 OR MORE VWS [facility] Department of Radiology [address] [place] [address] ======== Patient Name: DION HALE : 1975 Sex: M Age: Race: White [...] , Ordering Provider - A JER LOPEZ INSTALLMENT DEALER , Exam: LUMBAR SPINE 6 OR MORE VWS ======== LUMBAR SPINE 6 OR MORE VWS 01/14/2022 [...] focal abnormality evident radiographically. Electronically signed: Rashad York. Transcribed by: [email or web address], User Resident: Electronically Signed by: RASHAD YORK @ 01/15/2022 11:40 AM Normal [facility] [...] , , , Ordering Provider - Sherice RANDLE MSN INSTALLMENT DEALER , Vital Signs Date Time Vital Sign Value Performing Clinician Facility 07-19-2024 10:32-040 Body height 175.3 cm Comfort BRADSHAW Work Phone: [facility] 07-19-2024 10:32-0400 Body mass index (BMI) [Ratio] 45.63 kg/m2 Comfort BRADSHAW Work Phone: [facility] 07-19-2024 10:32-0400 Body weight 140.16 kg Comfort Souza PA Work Phone: [facility] [employer] 07-19-2024 10:32-0400 Diastolic blood pressure 86 mm[Hg] Comfort Souza PA Work Phone: [facility] [employer] 07-19-2024 10:32-0400 Systolic blood pressure 130 mm[Hg] Comfort Ramose PA Work Phone: [facility] [employer] 09-23-2023 10:05-0500 Body height Abbey Nietomond Other [facility] Other 09-23-2023 10:05-0500 Body mass index (BMI) [Ratio] 44.21 kg/m2 Abbey Sharda Other [facility] Other 09-23-2023 10:05-0500 Body temperature 98.6 [degF] Abbey Sharda Other [facility] Other 09-23-2023 10:05-0500 Body weight 135.81 kg Abbey Sharda Other [facility] Other 09-23-2023 10:05-0500 Diastolic blood pressure 82 mm[Hg] Abbey Sharda Other [facility] Other 09-23-2023 10:05-0500 Respiratory rate 18 /min Abbey Sharda Other [facility] Other 09-23-2023 10:05-0500 SaO2% (BldA) [Mass fraction] 95 % Abbey Sharda Other [facility] Other 09-23-2023 10:05-0500 Systolic blood pressure 152 mm[Hg] Abbey Robin Other [facility] Other 04-15-2023 10:30-0400 Body height Marisol Ruelasley Other [facility] Other 04-15-2023 10:30-0400 Body mass index (BMI) [Ratio] 45.33 kg/m2 Marisol Nathalie Other [facility] Other 04-15-2023 10:30-0400 Body temperature 97.6 [degF] Marisol Nathalie Other [facility] Other 04-15-2023 10:30-0400 Body weight 139.26 kg Marisol Nathalie Other [facility] Other 04-15-2023 10:30-0400 Diastolic blood pressure 80 mm[Hg] Marisolloc Zelaya Other [facility] Other 04-15-2023 10:30-0400 Respiratory rate 18 /min Marisol Nathalie Other [facility] Other 04-15-2023 10:30-0400 SaO2% (BldA) [Mass fraction] 98 % Marisol Nathalie Other [facility] Other 04-15-2023 10:30-0400 Systolic blood pressure 125 mm[Hg] Marisol Zelaya Other [facility] Other Encounters Encounter Date Encounter Type Care Provider Facility Start: 11-01-2024 End: 11-01-2024 Eliezer Patrick MD Work Phone: [facility] Comment on above: Low back pain, unspe cified back pain laterality, unspecified chronicity, unspecified whether sciatica present Start: 10-08-2024 ambulatory MILAN [facility] Start: 10-02-2024 ambulatory MILAN NAILS Facilit y:[facility] Start: 08-09-2024 End: 08-09-2024 ambulatory DO MILAN NAILS Facility:[facility] Start: 07-24-2024 End: 07-27-2024 Evaluation and management of inpatient MILAN NAILS [facility] Start: 07-19-2024 End: 07-19-2024 Office outpatient visit 25 minutes Comfort BRADSHAW Work Phone: [facility] [employer] [facility] Comment on above: Carpal tunnel syndro me on both sides (Primary Dx); Chronic bilateral low back pain, unspecified whether sciatica present; Lumbar disc herniation Start: 07-19-2024 End: 07-19-2024 ambulatory COMFORT SOUZA Not Available Start: 07-17-2024 End: 07-17-2024 Bamboo flowsheet Nghia Patrick MD Work Phone: [facility] [employer] [facility] Start: 07-17-2024 End: 07-17-2024 Bamboo flowsheet Nghia Patrick MD Work Phone: [employer] [address] Start: 07-17-2024 End: 07-17-2024 ambulatory NGHIA PATRICK Not Available Start: 07-17-2024 End: 07-17-2024 Patient encounter procedure Nghia Patrick MD Work Phone: [employer] [facility] Comment on above: Lumbar radiculopathy (Primary Dx); Low back pain, unspecified back pain laterality, unspecified chronicity, unspecified whether sciatica present Start: 07-02-2024 End: 07-02-2024 ambulatory DO MILAN NAILS Facility:[facility] Start: 06-28-2024 ambulatory DO MILAN NAILS Faci lity:[facility] Start: 05-24-2024 End: 05-24-2024 Bamboo flowsheet Nghia Patrick MD Work Phone: [employer] [place] [employer] [facility] Start: 05-24-2024 End: 05-24-2024 Bamboo flowsheet Nghia Patrick MD Work Phone: [facility] Start: 05-24-2024 End: 05-24-2024 Patient encounter procedure Nghia Patrick MD Work Phone: [facility] Comment on above: Carpal tunnel syndro me on both sides (Primary Dx) Start: 05-24-2024 End: 05-24-2024 ambulatory NGHIA PATRICK Not Available Start: 04-18-2024 End: 04-18-2024 ambulatory MILAN P HOUSE Facility:[facility] Start: 04-18-2024 End: 04-18-2024 ambulatory COMFORT SOUZA Not Available Start: 04-09-2024 End: 04-09-2024 ambulatory MILAN P HOUSE Facility:[facility] Start: 02-22-2024 End: 02-22-2024 ambulatory MILAN P HOUSE Facility:[facility] Start: 01-23-2024 End: 01-23-2024 ambulatory MILAN P HOUSE Facility:[facility] Start: 01-16-2024 End: 01-16-2024 ambulatory MILAN P HOUSE Facility:[facility] Start: 01-10-2024 End: 01-10-2024 ambulatory MILAN P HOUSE Facility:[facility] Start: 11-24-2023 End: 11-24-2023 ambulatory MILAN P HOUSE Facility:[facility] Start: 09-23-2023 End: 09-23-2023 ambulatory Abbey Robin Other [facility] Other Start: 09-23-2023 Office outpatient vi sit 15 minutes Abbey Robin [facility] Start: 04-15-2023 End: 04-15-2023 ambulatory Marisol Zelaya Other [facility] Other Start: 04-15-2023 Office outpatient ne w [...] Start: 03-08-2018 Ambulatory [facility] [facility] Facility :[id number] Procedures Date Procedure Procedure Detail Performing Clinician Start: 07-17-2024 Nerve conduction catina dies 9-10 studies Nghia Patrick MD Work Phone: Start: 05-24-2024 Nerve conduction catina dies 11-12 studies Nghia Patrick MD Work Phone: Plan of Treatment Date Care Activity Detail Author Start: 10-10-2024 End: 10-10-2024 Patient encounter procedure 10/10/2024 1:40 PM EST Office Visit [facility] [address] [place] [address] Comfort Souza PA [address] [place], [place] [id number] [facility] Start: 07-19-2024 End: 07-19-2024 Patient encounter procedure 07/19/2024 10:40 AM EDT Office Visit [facility] [address] [place] [address] Comfort Souza PA [address] [place] [address] [facility] Start: 06-19-2024 End: 06-19-2024 Patient encounter procedure 06/19/2024 1:00 PM EDT Office Visit [facility] [address] [place] [phone] Comfort Souza PA [address] [place], [place] [id number] [facility] Start: 06-13-2024 End: 06-13-2024 Patient encounter procedure 06/13/2024 1:00 PM EDT Procedure Visit [facility] [address] [facility] [address] [place] [address] Nghia Patrick MD [address] [place] [address] [facility] Start: 05-24-2024 End: 05-24-2024 Patient encounter procedure 05/24/2024 8:30 AM EDT Procedure Visit [facility] [address] [place] [address] Nghia Patrick MD [address] [place] [address] Arrived [facility] Comment on above: Arrived [facility]G 2 Extremities EMG 2 Extremit ies Neurology Routine Carpal tunnel syndrome on both sides [facility]: Comment on above: Ordered: 05/24/2024 Payers Date Payer Category Payer Medicare [facility] MEDICARE UHC DUAL COMPLETE [id number] 2023-Present [address] [place] [id number] 2023 Medicare (Managed Care) [facility] MEDIC[facility] [id number] 2021 Medicare [id number] 2.16.840.1.303806.19 1975 Unknown [id number] 2.16840.1.428013.3.579.2. 593 1975 Unknown [id number] 2.16840.1.441055.3.579.2. 593 1974 Unknown [id number] 2.16.840.1.759491.3.579.2. 593 1974 Unknown [id number] 2.16840.1.190483.3.579.2. 593 1974 Unknown [id number] 2.16840.1.672704.3.579.2. 593 1974 Unknown [id number] 2.16.840.1.616602.3.579.2. 593 1974 Unknown [id number] 2.16.840.1.969014.3.579.2. 59 1975 Unknown [id number] 2.16.840.1.937363.3.579.2. 593 1974 Unknown [id number] 2.16.840.1.054045.3.579.2. 59 1974 Unknown [id number] 2.16.840.1.006111.3.579.2. 593 1974 Unknown [id number] 2.16.840.1.190919.3.579.2. 593 1974 Unknown [id number] 2.16.840.1.052122.3.579.2. 593 1974 Unknown [id number] 2.16.840.1.837450.3.579.2. 59 1974 Unknown [id number] 2.16.840.1.988095.3.579.2. 1259 1974 Unknown [id number] 2.16.840.1.657513.3.579.2. 1259 1974 Unknown [id number] 2.16.840.1.816525.3.579.2. 1259 1974 Unknown [id number] 2.16.840.1.543341.3.579.2. 125 1974 Unknown [id number] 2.16.840.1.631946.3.579.2. 1286 1974 Unknown [id number] 2.16.840.1.248679.3.579.2. 1974 Unknown [id number] 2.16.840.1.506489.3.579.2. 1974 Unknown [id number] 2.16.840.1.999831.3.579.2. 1974 Unknown [id number] 2.16.840.1.363746.3.579.2. 1974 Unknown [id number] 2.16.840.1.175300.3.579.2. 1974 Unknown [id number] 2.16.840.1.307782.3.579.2. 1974 Unknown [id number] 2.16.840.1.023045.3.579.2. 1974 Unknown [id number] 2.16.840.1.512479.3.579.2. 718 1974 Unknown [id number] 2.16.840.1.715698.3.579.2. 718 1960 Medicare [id number] Unknown [id number] Social History Date Type Detail Facility Unknown if ever smoked [facility] Other Start: 04-11-2024 End: 07-19-2024 Sex Assigned At [employer] [facility] [employer] Other Start: 04-11-2024 Tobacco smoking stat [facility] Never smoked tobacco [facility] Start: 04-11-2024 Tobacco use and exposure Smokeless tobacco non-user [facility] Start: 04-11-2024 End: 07-19-2024 Alcoholic beverage intake Lifetime non-drinker (finding) [facility] Start: 04-11-2024 End: 07-19-2024 History of Social function [facility] Start: 1975 Sex assigned at Not on file [facility] Clinical Notes 04-15-2022 to 10-26-2024 Danya Ritter MA - 07/17/2024 10:30 AM EDTDanya Ritter MA - 05/24/2024 8:30 AM EDT Note Date & Type Note Facility 10-26-2024 Note Entered by DYLAN NAILS DO on October 26, 2024 14:14:29 EST From: MILAN NAILS DO To: [facility] Sent: 10/26/2024 14:14:29 EST Subject: Medication Management Submitted: Complete:fexofenadine (fexofenadine 180 mg oral tablet) Signed by MILAN NAILS DO 10/26/2024 14:14:00 EST Approved with modifications: fexofenadine (fexofenadine 180 mg tablet) TAKE 1 TABLET BY MOUTH EVERY DAY Qty: 30 tab(s) Days Supply: 30 Refills: 5 Substitutions Allowed Route To Pharmacy - [facility] ------ From: [facility] To: MILAN NAILS DO Sent: October 26, 2024 12:55:48 PM [employer] Subject: Medication Management Due: October 27, 2024 12:02:15 AM [employer] On Hold Pending Signature Drug: fexofenadine (fexofenadine 180 mg oral tablet), TAKE 1 TABLET BY MOUTH DAILY Quantity: 30 tab(s) Days Supply: 30 Refills: 5 Substitutions Allowed Notes from Pharmacy: Dispensed Drug: fexofenadine (fexofenadine 180 mg oral tablet), TAKE 1 TABLET BY MOUTH EVERY DAY Quantity: 30 tab(s) Days Supply: 30 Refills: 5 Substitutions Allowed Notes from Pharmacy: ------ [facility] 08-27-2024 Note Entered by DYLAN NAILS DO on August 27, 2024 16:27:03 EST From: MILAN NAILS DO To: [facility] Sent: 08/27/2024 16:27:03 EST Subject: Medication Management Submitted: Complete:SUMAtriptan (SUMAtriptan 100 mg oral tablet) Signed by MILAN NAILS DO 08/27/2024 16:27:00 EST Submitted: Complete:propranolol (propranolol 80 mg oral capsule, extended release) Signed by MILAN NAILS DO 08/27/2024 16:27:00 EST Submitted: Complete:albuterol (Albuterol (Eqv-ProAir HFA) 90 mcg/inh inhalation aerosol) Signed by MILAN NAILS DO 08/27/2024 16:27:00 EST Approved with modifications: albuterol (albuterol sulfate HFA 90 mcg/actuation aerosol inhaler) INHALE 2 PUFFS BY MOUTH EVERY 6 HOURS NEEDED Qty: 8.5 gm Days Supply: 25 Refills: 5 Substitutions Allowed Route To Pharmacy - [facility] Approved with modifications: propranolol (propranolol ER 80 mg capsule,24 hr,extended release) TAKE 1 CAPSULE BY MOUTH DAILY Qty: 30 cap(s) Days Supply: 30 Refills: 5 Substitutions Allowed Route To [facility] Approved with modifications: SUMAtriptan (sumatriptan 100 mg tablet) TAKE 1 TABLET BY MOUTH DAILY Qty: 12 EA Days Supply: 12 Refills: 5 Substitutions Allowed Route To [facility] ------ From: [facility] To: MILAN NAILS DO Sent: August 27, 2024 2:39:32 PM [employer] Subject: Medication Management Due: August 28, 2024 12:06:32 AM [employer] On Hold Pending Signature Drug: albuterol (Albuterol (Eqv-ProAir HFA) 90 mcg/inh inhalation aerosol), INHALE 2 PUFFS BY MOUTH EVERY 6 HOURS NEEDED Quantity: 8.5 gm Days Supply: 25 Refills: 5 Substitutions Allowed Notes from Pharmacy: Dispensed Drug: albuterol (Albuterol (Eqv-ProAir HFA) 90 mcg/inh inhalation aerosol), INHALE 2 PUFFS BY MOUTH EVERY 6 HOURS NEEDED Quantity: 8.5 gm Days Supply: 25 Refills: 5 Substitutions Allowed Notes from Pharmacy: On Hold Pending Signature Drug: propranolol (propranolol 80 mg oral capsule, extended release), TAKE 1 CAPSULE BY MOUTH DAILY Quantity: 30 cap(s) Days Supply: 30 Refills: 5 Substitutions Allowed Notes from Pharmacy: Dispensed Drug: propranolol (propranolol 80 mg oral capsule, extended release), TAKE 1 CAPSULE BY MOUTH DAILY Quantity: 30 cap(s) Days Supply: 30 Refills: 5 Substitutions Allowed Notes from Pharmacy: On Hold Pending Signature Drug: SUMAtriptan (SUMAtriptan 100 mg oral tablet), TAKE 1 TABLET BY MOUTH DAILY Quantity: 12 EA Days Supply: 12 Refills: 2 Substitutions Allowed Notes from Pharmacy: Dispensed Drug: SUMAtriptan (SUMAtriptan 100 mg oral tablet), TAKE 1 TABLET BY MOUTH DAILY Quantity: 12 EA Days Supply: 12 Refills: 5 Substitutions Allowed Notes from Pharmacy: ------ [facility] 07-17-2024 History of Presen t illness Narrative Images from the original note were not included. Reason for Appointment: EMG Patient: Dion Hale : 1975 EMG Computer: [employer] Referring Physician: Dr. Nghia Patrick EMG: BLE pile driver operator: Danya Ritter [facility] Office Location: [place] Reason for EMG: c/o hypersensitivty to the bottoms of the feet. Paresthesia in the legs. R>L. No Hx of DM, not taking blood thinners. Comments: Procedure explained to the patient who expressed understanding. documented in this encounter [facility] 05-24-2024 History of Presen t illness Narrative Images from the original note were not included. Reason for Appointment: EMG Patient: Doin Hale : 1975 EMG Computer: [employer] Referring Physician: Comfort Souza PA-C EMG: ASHLEY pile driver operator: Danya Ritter [facility] Office Location: [place] Reason for EMG: c/o burning, numbness, tingling in the hands. R>L. Sometimes has a hard time closing his hand. No Hx of DM, not taking blood thinners. Comments: Procedure explained to the patient who expressed understanding. documented in this encounter [facility] 05-22-2024 Note Entered by DYLAN NAILS DO on May 22, 2024 08:21:07 EDT From: MILAN NAILS DO To: [facility] Sent: 05/22/2024 08:21:07 EDT Subject: Medication Management Submitted: Complete:SUMAtriptan (SUMAtriptan 100 mg oral tablet) Signed by MILAN NAILS DO 05/22/2024 08:21:00 EDT Approved with modifications: SUMAtriptan (sumatriptan 100 mg tablet) TAKE 1 TABLET BY MOUTH DAILY Qty: 12 EA Days Supply: 12 Refills: 2 Substitutions Allowed Route To Pharmacy - [facility] ------ From: [facility] To: MILAN NAILS DO Sent: May [...] Refills: 2 Substitutions Allowed Notes from Pharmacy: ------ [facility] 05-02-2024 Note Entered by DYLAN NAILS DO on May 02, 2024 11:28:48 EDT From: MILAN NAILS DO To: [facility] Sent: 05/02/2024 11:28:48 EDT Subject: Medication Management Submitted: Complete:fexofenadine (fexofenadine 180 mg oral tablet) Signed by MILAN NAILS DO 05/02/2024 11:28:00 EDT Approved with modifications: fexofenadine (fexofenadine 180 mg tablet) TAKE 1 TABLET BY MOUTH DAILY Qty: 30 tab(s) Days Supply: 30 Refills: 5 Substitutions Allowed Route To Pharmacy - [facility] ------ From: [facility] To: MILAN NAILS DO Sent: May [...] Refills: 5 Substitutions Allowed Notes from Pharmacy: ------ [facility] 02-22-2024 Note Entered by DYLAN NAILS DO on February 22, 2024 11:51:43 EDT From: MILAN NAILS DO To: [facility] Sent: 02/22/2024 11:51:43 EDT Subject: Medication [...] 25 Refills: 5 Substitutions Allowed Route To [facility] Approved SUMAtriptan (sumatriptan 100 mg tablet) TAKE 1 TABLET BY MOUTH DAILY Qty: 12 EA Days Supply: 12 Refills: 2 Substitutions Allowed Route To [facility] Approved with modifications: propranolol (propranolol ER 80 mg capsule,24 hr,extended release) TAKE 1 CAPSULE BY MOUTH DAILY Qty: 30 cap(s) Days Supply: 30 Refills: 5 Substitutions Allowed Route To [facility] Patient matched by MILAN NAILS DO on 02/22/2024 11:50:58 EDT ------ From: [facility] To: MILAN NAILS DO Sent: February [...] Refills: 2 Substitutions Allowed Notes from Pharmacy: ------ [facility] 01-23-2024 Note Entered by DYLAN NAILS DO on January 23, 2024 13:46:16 EDT From: MILAN NAILS DO To: [facility] Sent: 01/23/2024 13:46:16 EDT Subject: Medication [...] 11 Substitutions Allowed Route To Pharmacy - [facility] Patient matched by MILAN NAILS DO on 01/23/2024 13:45:54 EDT ------ From: [facility] To: MILAN NAILS DO Sent: January [...] Refills: 11 Substitutions Allowed Notes from Pharmacy: ------ [facility] 01-16-2024 Note Entered by DYLAN NAILS DO on January 16, 2024 14:24:31 EDT From: MILAN NAILS DO To: [facility] Sent: 01/16/2024 14:24:31 EDT Subject: Medication Management Documented Complete:omeprazole (omeprazole 20 mg oral delayed release capsule) Signed by MILAN NAILS DO 01/16/2024 14:24:00 EDT Approved with modifications: omeprazole (omeprazole 20 mg capsule,delayed release) TAKE 1 CAPSULE BY MOUTH DAILY Qty: 30 cap(s) Days Supply: 30 Refills: 11 Substitutions Allowed Route To Pharmacy - [facility] Patient matched by MILAN NAILS DO on 01/16/2024 14:24:11 EDT ------ From: [facility] To: MILAN NAILS DO Sent: January [...] Refills: 11 Substitutions Allowed Notes from Pharmacy: ------ [facility] 11-07-2023 Note Entered by DYLAN NAILS DO on November 07, 2023 07:53:45 EST From: MILAN NAILS DO To: [facility] Sent: 11/07/2023 07:53:45 EST Subject: Medication [...] 30 Refills: 5 Substitutions Allowed Route To [facility] Approved with modifications: lisinopril (lisinopril 20 mg tablet) TAKE 1 TABLET BY MOUTH DAILY Qty: 90 tab(s) Days Supply: 90 Refills: 5 Substitutions Allowed Route To [facility] ------ From: [facility] To: MILAN NAILS DO Sent: November 06, 2023 9:32:22 AM [employer] Subject: Medication Management Due: November 07, 2023 12:07:40 AM [employer] On Hold Pending Signature Drug: fexofenadine (Leigh [...] Refills: 5 Substitutions Allowed Notes from Pharmacy: ------ [facility] 09-23-2023 Evaluation note Encounter Date Diagnosis [...] 3 days Sep, Bronchitis (ICD-10 - J40) [facility] Other 07-28-2023 Evaluation note* Encounter Date Diagnosis Assessment Notes [...] is not contagious from itself or drainage. [facility] Other 05-30-2023 NoteCONSULTATION CONSULTATION DATE: 02/15/2023 TO: [...] the lower extremities. MEDICATION: Current medication includes [place] 5 mg t.i.d. p.r.n. Patient reports it [...] our patients to inform us about any roff-qsb-myuwdwv medications or herbal remedies/nutritional supplements/alternative remedies. 2. [...] treatment options with their primary care provider.[id number] Note CONSULTATION CONSULTATION DATE: 01/06/2023 TO: Dr. [...] our patients to inform us about any efde-jme-gshzrqi medications or herbal remedies/nutritional supplements/alternative remedies. 2. [...] treatment options with their primary care provider.[facility] [id number] Note CONSULTATION PROCEDURE DATE: 10/06/2022 PREOPERATIVE DIAGNOSIS: [...] will be followed up in the office.[facility] [id number] NoteCONSULTATION CONSULTATION DATE: 08/26/2022 HISTORY OF PRESENT [...] his muscle relaxer. Our clinic prescribes his [place] 5/325 b.i.d. and diclofenac 75 mg b.i.d. [...] normally does. All questions were answered today.[facility] [id number] NoteCONSULTATION CONSULTATION DATE: 07/22/2022 HISTORY OF PRESENT [...] a cane. He has seen Neurosurgery at [facility] in the past, which they feel, at this time, he is not a surgical candidate and to be managed by Pain Management. He current does see Dr. Patrick at [facility] as well. Activities that aggravate his pain are pulling, sitting, walking, lying down and bending. He will alternate heat and ice which he feels does not make a significant difference. Medications include trazodone 50 mg q.h.s., tizanidine 4 mg b.i.d., Lyrica 50 mg t.i.d., diclofenac 75 mg b.i.d. and [place] 5/325 b.i.d. He does attend pool therapy at the [facility] 2-3 times a week, which he [...] be followed up in the clinic thereafter.[facility] 04-22-2022 NoteCONSULTATION PROCEDURE DATE: 04/22/2022 [...] will be followed up in the office.[facility] [id number] NoteCONSULTATION CONSULTATION DATE: 04/15/2022 This is a [...] mg b.i.d., Lyrica 50 mg b.i.d. and [place] 5/325 b.i.d. He is complaining of trouble [...] is gained for his trigger point injections.[facility] Evaluation note* Diagnosis Lumbar radiculopathy- Primary Thoracic or lumbosacral neuritis or radiculitis, unspecified Low back pain, unspecified back pain laterality, unspecified chronicity, unspecified whether sciatica present documented in this encounter [facility] HealthcareEvaluation note* Diagnosis Carpal tunnel syndrome on both sides- Primary Carpal tunnel syndrome Chronic bilateral low back pain, unspecified whether sciatica present Lumbar disc herniation Displacement of lumbar intervertebral disc without myelopathy documented in this encounter [facility]* Diagnosis Carpal tunnel syndrome on both sides- Primary Carpal tunnel syndrome documented in this encounter [facility] HealthcareEvaluation note* Diagnosis Low back pain, unspecified back pain laterality, unspecified chronicity, unspecified whether sciatica present documented in this encounter [facility] HealthcareHistory general Narrative - Reported* Type Description Date Medical History HTN (hypertension) Medical History GERD (gastroesophageal reflux di sease) Medical History Chronic pain Medical History Anxiety Surgical History tonsillectomy and adenoidectomy Surgical History ablasion [place] Other History general Narrative - Reported* Type Description Date Medical History HTN (hypertension) Medical History GERD (gastroesophageal reflux di sease) Medical History Chronic pain Medical History Anxiety Surgical History tonsillectomy and adenoidectomy Surgical History ablasion Surgical History nerve block Surgical History epidural [place] Other Summary Purpose Family History No Family [...] content) DATE CREATED AUTHOR 03/09/2018 [facility] DATE CREATED AUTHOR AUTHOR'S ORGANIZ ATION 01/19/2022 [facility] DATE CREATED AUTHOR AUTHOR'S ORGANIZ ATION 02/25/2023 [facility] DATE CREATED AUTHOR AUTHOR'S ORGANIZ ATION 07/21/2024 [facility] DATE CREATED AUTHOR AUTHOR'S ORGANIZ ATION 07/27/2024 [facility] DATE CREATED AUTHOR AUTHOR'S ORGANIZ ATION 10/28/2024 [facility] REASON FOR VISIT (unrecogniz ed section and content) Reason Comments Back Pain Numbness Reason Comments Med Refill Care Teams (unrecognized sec tion and content) Driller Brake Lining Relationship Specialty Start Date End Date Milan Nails MD [address] [place] [address] PCP - General Family Medicine 12/08/23 Driller Brake Lining Relationship Specialty Start Date End Date Milan Nails MD [address] [place] [address] PCP - General Family Medicine 12/08/23 Driller Brake Lining Relationship Specialty Start Date End Date Milan Nails MD [address] [place] [address] PCP - General Family Medicine 12/08/23 Comfort Souza PA [address] [place] [address] Physician Transport Specialist Neurology 07/19/24 Nghia Patrick MD [address] [place], [place] [id number] Referring Physician Neurology 07/19/24 Driller Brake Lining Relationship Specialty Start Date End Date Milan Nails MD [address] [place] [address] PCP - General Family Medicine 12/08/23 Driller Brake Lining Relationship Specialty Start Date End Date Milan Nails MD [address] [place] [address] PCP - General Family Medicine 12/08/23 Driller Brake Lining Relationship Specialty Start Date End Date Milan Nails MD [address] [place] [address] PCP - General Family Medicine 12/08/23 Comfort Souza PA [address] [place] [address] Physician Transport Specialist Neurology 07/19/24 Nghia Patrick MD [address] [place] [address] Referring Physician Neurology 07/19/24 FOR RECORDS PERTAINING TO PATIENTS WHO ARE [...] BE BASED ON THE PRIMARY CLINICAL RECORDS. [facility] [facility] [employer] provides no warranty or guarantee of the accuracy or completeness of information in this document.
--- NOTE | 2024-11-08 07:55 | P.CN_ITS ---
Consult Note: HPI Data of Consult Patient: known to practice within the last 3 years Requesting Physician: Razia Contreras NP Primary Care Provider: GERMANIA NAILS Consult Narrative Reason for consult: f/u Narrative: Riccardo Hale a pleasant 49 year old male presents for evaluation and management of chronic neck and back pain with radiculopathy. Today rating pain 6/10 in neck, bilateral arms and hands, bilateral low back radiating to bilateral thighs and lower leg, burning tingling sharp and intermittent numbness and pain of bilateral hands RUE. Pain increases to 10/10. Patients symptoms worse with sitting or standing too long, leaning forward decreases pain. Continues to find benefit from medication regimen without side effects. Patient has failed to benefit from greater than 6 weeks PT/provider guided HEP. Pain most significant in left low back radiating into left leg and right foot. Patient noting mild relief from recent L5/S1 KEMAR. historically non surigcal for lumbar pain and radiculopathy, NS in 2021 recommended spinal cord stimulation. cc:: CC: Razia Contreras NP Review of Systems ROS Status of ROS 10 or more systems reviewed and unremark able except as noted in history and below Musculoskeletal Reports: back pain, neck pain and extremity pain PFSH PFSH Medical History Osteoarthritis ?M19.90 - Unspecified osteoarthritis, unspecified site (ICD-10) Numbness and tingling ?R20.0 - Anesthesia of skin (ICD-10) ?R20.2 - Paresthesia of skin (ICD-10) Obesity ?E66.9 - Obesity, unspecified (ICD-10) Acid reflux ?K21.9 - Gastro-esophageal reflux disease without esophagitis (ICD-10) Former smoker ?Z87.891 - Personal history of nicotine dependence (ICD-10) Sleep apnea ?G47.30 - Sleep apnea, unspecified (ICD-10) High cholesterol ?E78.00 - Pure hypercholesterolemia, unspecified (ICD-10) Hypertension ?I10 - Essential (primary) hypertension (ICD-10) Surgical History History of tonsillectomy and adenoidectomy ?Z90.89 - Acquired absence of other organs (ICD-10) Meds Home Medications and Allergies Home Medications ?Medication ?Instructions ?Recorded ?Confirmed ?Type albuterol sulfate 90 mcg/actuation inhalation Q4H PRN shortness of 03/10/23 History aerosol inhaler breath or wheezing duloxetine 30 mg capsule,delayed 30 mg PO QDAY 03/10/23 07/03/24 History release duloxetine 60 mg capsule,delayed 60 mg PO QDAY 03/10/23 07/03/24 History release ipratropium 0.5 mg-albuterol 3 mg 3 ml inhalation TID 03/10/23 07/03/24 History (2.5 mg base)/3 mL nebulization soln lisinopril 20 mg tablet 20 mg PO QDAY 03/10/23 07/03/24 History omeprazole 20 mg capsule,delayed 20 mg PO QDAY 03/10/23 07/03/24 History release trazodone 50 mg tablet 50 mg PO .hs PRN sleep 03/10/23 07/03/24 History diclofenac sodium 75 mg 75 mg PO BID PRN pain #60 tabs 07/27/23 07/03/24 Rx tablet,delayed release pregabalin 200 mg capsule (Lyrica) 200 mg PO TID 03/01/24 07/03/24 History propranolol 80 mg capsule,24 80 mg PO DAILY 03/01/24 07/03/24 History hr,extended release hydrocodone 5 mg-acetaminophen 325 1 tab PO TID PRN pain #75 tabs 04/04/24 07/03/24 Rx mg tablet amitriptyline 25 mg tablet 25 mg PO DAILY 04/24/24 07/03/24 History baclofen 10 mg tablet 10 mg PO DAILY 04/24/24 07/03/24 History sumatriptan succinate 100 mg tablet 100 mg PO PRN migraine headache 04/24/24 History hydrocodone 5 mg-acetaminophen 325 See Rx Instructions .Route 05/25/24 07/03/24 Rx mg tablet .COMPLEX PRN pain #75 tabs diclofenac sodium 50 mg 50 mg PO BID PRN pain #60 tabs 07/12/24 Rx tablet,delayed release hydrocodone 5 mg-acetaminophen 325 See Rx Instructions .Route 07/12/24 Rx mg tablet .COMPLEX PRN pain #75 tabs hydrocodone 5 mg-acetaminophen 325 1 tab PO TID PRN pain #75 tabs 08/21/24 Rx mg tablet naloxone 4 mg/actuation nasal 4 mg intranasal Q2M PRN opioid 08/22/24 Rx spray (Narcan) overdose #1 ea hydrocodone 5 mg-acetaminophen 325 See Rx Instructions .Route 09/27/24 Rx mg tablet .COMPLEX PRN pain #75 tabs Allergies Allergy/AdvReac Type Severity Reaction Status Date / Time No Known Drug Allergies Allergy Verified 07/03/24 08:14 Exam Constitutional Documenting provider has reviewed patient's vital signs: yes Common normals: no apparent distress, oriented x3, healthy appearing, alert and well nourished General appearance: cooperative Orientation/consciousness: Yes awake, Yes oriented to person, Yes oriented to place and Yes oriented to time Other: uses cane HENMT Common normals: normocephalic, hearing grossly normal bilaterally and moist oral mucous membranes Head and scalp: normocephalic Eye Common normals: PERRL Pupil: PERRL Neck & C-Spine Common normals: full ROM General: normal visual inspection Cervical spine: pain with cervical ROM Other: negative sprulings strength 5/5 in BUE sensation intact/equal BUE Chest Common normals: inspection of chest normal Respiratory Common normals: normal respiratory effort, no retractions and no use of accessory muscles Effort & inspection: able to speak in complete sentences and symmetric chest movement Back & Pelvis Common normals: thoracic and lumbar spine normal to inspection Lumbar spine/lower back: normal to inspection, ROM limited, pain with ROM, paraspinal muscle tenderness, paraspinal muscle spasm, straight leg raise positive right and straight leg raise positive left Other: positive facet loading bilat positive jo-ann bilat Muscle strength 4/5 LLE, 5/5 in RLE decreased sensation to left L5/S1 Extremity Common normals: normal to inspection and full ROM Neuro Common normals: oriented x3, CN's II-XII intact bilaterally, moves all extremities, no focal motor deficits, no sensory deficits noted and deep tendon reflexes 2+ bilaterally Sensorium/orientation: alert Gait (neuro): antalgic and assistive device used cane Motor exam: no movement abnormalities noted and strength abnormal Psych Common normals: mental status grossly normal, thought process normal, cooperative, affect normal, speech normal and activity/motor behavior normal Speech: normal speech Thought process: normal thought process Results Additional Findings Additional findings: If on a controlled substance or opioids, I have checked an [place]AR[place] report on this patient and there are no aberrancies noted in the prescribing history.??If on a controlled substance or opioid a drug screen was completed and reviewed within the last year, and if there has not been a drug screen completed we ordered one today to monitor higher risk, state monitored pain medication use. As part of providing excellent, safe, comprehensive care, the following was completed at our patient's visit: 1. A medication reconciliation and review to ensure accurate knowledge of current/active medications, including asking our patients to inform us about any jdgi-rsw-cawxdfy medications or herbal remedies/nutritional supplements/alternative remedies. 2. A review to specifically ensure our patients have had annual screening for screening for depression, screening for tobacco use, and screening for unhealthy alcohol use. For concerning screenings had a discussion with the patient, provided patient education, and recommended follow-up with primary care provider when appropriate. If patient noted with a risk of falling, they received education on strength, gait, and balance training to prevent future risk of falling. Assessment and Plan Assessment and Plan (1) Lumbar radiculopathy: (2) Lumbar spondylosis: (3) Cervical radiculopathy: (4) Cervical spondylosis: (5) Chronic prescription opiate use: Assessment and Plan: I feel these medications are improving the patient's quality of life and allow them to tolerate activities of daily living as well as participate in recreational activity.? The patient does not report intolerable side effects. The patient is NOT opioid naive and non-pharmacologic and non-opioid treatment has failed to significantly relieve the patient's pain and improve functionality. The patient has a diagnosis that is related to a somatic or visceral pain etiology. ? ?? I reviewed with the patient the potential risks and side effects with the use of? opioid medications including but not limited to respiratory depression,? sedation, and even . Within the last 12 months I have verified the patient has access to naloxone should? these effects occur. The patient was advised to let? their family know they had Naloxone in case they would need to administer? the medication. I advised the patient to avoid the use of any other? sedation substances including alcohol, THC, and benzodiazepines while? taking opioid medications due to the risk of compounding side effects and? detrimental outcomes. within the last 12 months I have reviewed the SURVEYOR, pain treatment agreement and urine drug screen.? ?? A drug screen was completed within the last year, and no aberrancies were noted regarding their use of controlled substances. The patient understands they are subject to the terms and conditions of the pain contract that they have signed. ? ?? I have checked an OARRS report on this patient today and there are no aberrancies noted in the prescribing history.? Plan proceed with [employer] 2 lead spinal cord stimulator trial under MAC sedation and fluoroscopy for chronic lumbar radiculopathy unresponsive to greater than 6 weeks of provider guided HEP in the last 6 months, NSAIDs, tylenol, heat, ice, lumbar ESIs, and non surgical per prior NS consultation continue f/u with neurology continue f/u with PCP, interested in RA workup as he has a family hx encouraged topical OTC nsaid cream or voltaren TID-QID to hands continue current medications, tolerating well without side effects. risks vs benefits reviewed f/u for lead removal in the office
== END 2024-11-08 07:27 | disposition home or self-care (01) ==
LOC: PM 07:26
PROVIDERS: PCP Family Medicine; Visit Provider Nurse Practitioner
DX: M54.16 Radiculopathy, lumbar region (principal); M47.816 Spondylosis without myelopathy or radiculopathy, lumbar region; M54.12 Radiculopathy, cervical region; M47.812 Spondylosis without myelopathy or radiculopathy, cervical region; Z79.891 Long term (current) use of opiate analgesic
CPT/HCPCS: G0463

== ENCOUNTER 2025-02-06 07:40 | Outpatient (OUT) | payer MEDICARE, SELFPAY ==
--- OUTSIDE RECORDS SUMMARY | 2025-02-04 23:59 | XMS_ITS | Continuity of Care Document ---
Author Organization [facility] enter Address [facility] [place] [address]- Care Team Providers Care Area Intelligence Technician Name Role Phone GERMANIA NAILS Primary Care Physician Encounter 02/04/25 - 02/04/[address] [address]- Encounter Diagnosis Hypertension(Discharge Diagnosis) - 02/04/25 Migraine(Discharge Diagnosis) - 02/04/25 Obesity(Discharge Diagnosis) - 02/04/25 GRACIE (obstructive sleep apnea)(Discharge Diagnosis) - 02/04/25 Headache(Discharge Diagnosis) - 02/04/25 Chronic sinusitis(Discharge Diagnosis) - 02/04/25 Umbilical hernia(Discharge Diagnosis) - 02/04/25 Discharge Disposition: Home Attending Physician: GERMANIA NAILS DO Allergies, Adverse Reactions, Alerts No Known Allergies Assessment and Plan Extracted from: Title:Office Visit Note Author:GERMANIA NAILS DO Date:02/04/25 1. Hypertension I10 2. Migraine G43.909 3. Obesity E66.9 Ordered: Adipex-P 37.5 mg oral tablet, 1 tab(s) ( 37.5 mg ), Oral, Daily, # 30 tab(s), 0 Refill(s), Pharmacy: [id number], 1 tab(s) Oral Daily, 175.26, cm, 02/04/25 10:33:00 EDT, Height, 148.6, kg, 02/04/25 10:43:00 EDT, Weight Dosing, (Ordered) 4. Chronic sinusitis J32.9 5. Headache R51.9 6. GRACIE (obstructive sleep apnea) G47.33 7. Umbilical hernia K42.9 Orders: DULoxetine 60 mg oral delayed release capsule, 1 cap(s), Oral, Daily, # 30 cap(s), 5 Refill(s), Pharmacy: [id number], TAKE 1 CAPSULE BY MOUTH DAILY, 175.26, cm, 10/02/24 16:14:00 EST, Height, 139.3, kg, 10/02/24 16:24:00 EST, Weight Dosing, (Ordered) Referral Ambulatory, General Surgery, screening colonoscopy, 02/04/25 11:01:00 EDT, (Ordered) Referral Ambulatory, Otolaryngology, chronic sinusitis, 02/04/25 11:02:00 EDT, (Ordered) Future Appointments Functional Status 02/04/25 Family Member Travel History No recent t ravel Recent Travel History No recent travel Other exposure to Infectious Disease Non e Immunizations Given and Recorded Vaccine Date Status Refusal Reason Tdap 07/26/23 Given Medications acetaminophen-hydrocodone 325 mg-5 mg oral tablet Instructions: TAKE 1 TABLET BY MOUTH THREE TIMES DAILY NEEDED for spondylosis without myelopathy Start Date: 05/10/23 Status: Ordered Adipex-P 37.5 mg oral tablet 1 tab(s) ( 37.5 mg ), Oral, Daily, # 30 tab(s), 0 Refill(s), Pharmacy: [facility], 1 tab(s) Oral Daily, 175.26, cm, 02/04/25 10:33:00 EDT, Height, 148.6, kg, 02/04/25 10:43:00 EDT, Weight Dosing Start Date: 02/04/25 Status: Ordered Albuterol (Eqv-ProAir HFA) 90 mcg/inh inhalation aerosol 2 puff(s), Inhale, q6hr, PRN: NEEDED, # 8.5 gm, 5 Refill(s), Pharmacy: [facility], INHALE 2 PUFFS BY MOUTH EVERY 6 HOURS NEEDED, 175.26, cm, 08/09/24 9:58:00 EST, Height, 136.35, kg, 08/09/24 10:04:00 EST, Weight Dosing Start Date: 08/27/24 Status: Ordered Augmentin 500 mg-125 mg oral tablet 1 tab(s) amoxicillin, Oral, q12hr (int), # 20 tab(s), 0 Refill(s), Pharmacy: [facility], 1 tab(s) Oral q12hr (int), 175.26, cm, 10/02/24 16:14:00 EST, Height, 139.3, kg, 10/02/24 16:24:00 EST, Weight Dosing Start Date: 10/02/24 Status: Ordered baclofen 10 mg tablet baclofen 10 mg tablet, TAKE 1 TABLET BY MOUTH THREE TIMES DAILY NEEDED Start Date: 05/10/23 Status: Ordered diclofenac 0 Refill(s) Start Date: 05/10/23 Status: Ordered DULoxetine 60 mg oral delayed release capsule 1 cap(s), Oral, Daily, # 30 cap(s), 5 Refill(s), Pharmacy: [facility], TAKE 1 CAPSULE BY MOUTH DAILY, 175.26, cm, 10/02/24 16:14:00 EST, Height, 139.3, kg, 10/02/24 16:24:00 EST, Weight Dosing Start Date: 02/04/25 Status: Ordered fexofenadine 180 mg oral tablet 1 tab(s), Oral, Daily, # 30 tab(s), 5 Refill(s), Pharmacy: [facility], TAKE 1 TABLET BY MOUTH EVERY DAY, 175.26, cm, 10/02/24 16:14:00 EST, Height, 139.3, kg, 10/02/24 16:24:00 EST, Weight Dosing Start Date: 10/26/24 Status: Ordered lisinopril 20 mg oral tablet 1 tab(s), Oral, Daily, # 90 tab(s), 1 Refill(s), Pharmacy: [facility], TAKE 1 TABLET BY MOUTH DAILY, 175.26, cm, 10/02/24 16:14:00 EST, Height, 139.3, kg, 10/02/24 16:24:00 EST, Weight Dosing Start Date: 11/12/24 Status: Ordered Medrol Dosepak 4 mg oral tablet 1 packet(s), Oral, Once, Instructions: as directed on package labeling, # 21 tab(s), 0 Refill(s), Pharmacy: [facility], 1 packet(s) Oral Once,Instr:as directed on package labeling, 175.26, cm, 10/02/24 16:14:00 EST, Height, 139.3, kg, 10/02/24 16:24:00 EST, Weight Dosing Start Date: 10/02/24 Status: Ordered omeprazole 20 mg oral delayed release capsule 1 cap(s), Oral, Daily, # 30 cap(s), 5 Refill(s), Pharmacy: [facility], 1 cap(s) Oral Daily, 175.26, cm, 10/02/24 16:14:00 EST, Height, 139.3, kg, 10/02/24 16:24:00 EST, Weight Dosing Start Date: 01/03/25 Status: Ordered ondansetron 4 mg oral tablet, disintegrating 1 tab(s) ( 4 mg ), Oral, q8hr (int), # 20 tab(s), 1 Refill(s), Pharmacy: [facility], 1 tab(s) Oral q8hr (int), 175.26, cm, 08/09/24 9:58:00 EST, Height, 136.35, kg, 08/09/24 10:04:00 EST, Weight Dosing Start Date: 08/09/24 Status: Ordered pregabalin 200 mg oral capsule Instructions: TAKE 1 CAPSULE BY MOUTH THREE TIMES DAILY Start Date: 05/10/23 Status: Ordered propranolol 80 mg oral capsule, extended release 1 cap(s), Oral, Daily, # 30 cap(s), 5 Refill(s), Pharmacy: [facility], TAKE 1 CAPSULE BY MOUTH DAILY, 175.26, cm, 08/09/24 9:58:00 EST, Height, 136.35, kg, 08/09/24 10:04:00 EST, Weight Dosing Start Date: 08/27/24 Status: Ordered SUMAtriptan 100 mg oral tablet 1 tab(s), Oral, Daily, # 12 EA, 5 Refill(s), Pharmacy: [facility], TAKE 1 TABLET BYMOUTH DAILY, 175.26, cm, 08/09/24 9:58:00 EST, Height, 136.35, kg, 08/09/24 10:04:00 EST, Weight Dosing Start Date: 08/27/24 Status: Ordered Problem List Condition Confirmation Course Effective Dates Status Health St atus Informant Chronic sinusitis Confirmed Active Side effect of medication Confirmed Active Headache Confirmed Active Hypertension Confirmed Active Ileus Confirmed Active Migraine Confirmed Active Nausea Confirmed Active Obesity Confirmed Active GRACIE (obstructive sleep apnea) Confirmed Active Sleep apnea Confirmed Active Umbilical hernia Confirmed Active Vital Signs Most recent to oldest [Reference Range]: 1 Height 175.26 cm (02/04/25 10:33 AM) Height/Length Measured (inches) 69 in (02/04/25 10:33 AM) Weight 148.6 kg (02/04/25 10:33 AM) Weight Measured (lbs) 327.607 lb (02/04/25 10:33 AM) Weight Dosing 148.600 kg (02/04/25 10:33 AM) Body Mass Index 48.38 kg/m2 (02/04/25 10:33 AM) [place] Body Weight Calculated 70.7 kg (02/04/25 10:33 AM) BSA Measured 2.69 m2 (02/04/25 10:33 AM) Peripheral Pulse Rate [60-100 bpm] 66 bp m (02/04/25 10:33 AM) Blood Pressure [90-120/60-80 mmHg] 138/8 4mmHg *HI* (02/04/25 10:33 AM) BP Site Left arm (02/04/25 10:33 AM) SpO2 [92-100 %] 96 % (02/04/25 10:33 AM) Social History Social History Type Response Tobacco Former tobacco user Tobacco Use:. Sex Male Sex Representation Male (finding) Outpatient Note * GERMANIA NAILS DO: PERFORM Event Display: Office/Clinic Note Authored Date: [id number] DION ANDRES :1975 Age:49 years Sex:MALE Registration Date:02/04/2025 Primary Care Physician: GERMANIA NAILS DO Chief Complaint 6 month follow up obesity, HTN, migraine History of Present Illness Patient is a 49-year-old male who??is here for follow-up appointment.?? Known history of??hypertension, migraine, obesity, chronic sinusitis, headache, GRACIE.?? He is asking??for several different things. ??He still wants to get a screening colonoscopy. ??We referred that out in July, however??somehow it did not get completed??so we need to reinstitute that??order for referral for colonoscopy. ?? We also referred out for an ENT consult that apparently did not happen.?? He does have chronic sinusitis. ??A CT scan done on his sinuses did show some??chronic mucosal thickening and some mucous retention cysts in the past.?? I will reorder an ENT consult for him.?? Patient is also asking aboutsome weight loss medication.?? He does have a large umbilical hernia, that no surgeon will attempt given his current weight.?? He did have problems with Ozempic in the past, it essentially??gave him a small bowel ileus requiring hospitalization for about a week.?? With that knowledge I would not start him on any of the GLP-1 agents including tirzepatide or??liraglutide. ??The??risk of him having another ileus is too great for my taste.?? Therefore we did discuss??utilizing Adipex 37.5 mg once daily.?He will need nursing check for a weight check in 1 month. ??I will need??to see him again in 3 months time. Review of Systems Constitutional: [No fevers, chills, sweats] Eye: [No recent visual problems] ENT: [No ear pain, nasal congestion, sore throat] Respiratory: [No shortness of breath, cough] Cardiovascular: [No Chest pain, palpitations, syncope] Gastrointestinal: [No nausea, vomiting, diarrhea] Genitourinary: [No hematuria] Dominic/Lymph: [Negative for bruising tendency, swollen lymph glands] Endocrine: [Negative for excessive thirst, excessive hunger] Musculoskeletal: [No back pain, neck pain, joint pain, muscle pain, decreased range of motion] Integumentary: [No rash, pruritus, abrasions] Neurologic: [Alert & oriented X 4] Psychiatric: [No anxiety, depression] Physical Exam Vitals & Measurements HR:??66??(Peripheral)?? BP:??138/84?? SpO2:??96%?? HT:??175.26??cm?? WT:??148.6??kg?? BMI:??48.38?? BSA:??2.69?? General: [Alert and oriented, well nourished, no acute distress]. Eye: [PERRL, EOMI, normal conjunctiva]. HENT: [Normocephalic, clear tympanic membranes, normal hearing, moist oral mucosa, no scleral icterus, no sinus tenderness]. Neck: [Supple, non-tender, no carotid bruits, no JVD, no lymphadenopathy]. Lungs: [Clear to auscultation and percussion, non-labored respiration]. Heart: [Normal rate, regular rhythm, no murmur, gallop or edema]. Abdomen: [Soft, non-tender, non-distended, normal bowel sounds, no masses]. Musculoskeletal: [Normal range of motion and strength, no tenderness or swelling]. Skin: [Skin is warm, dry and pink, no rashes or lesions]. Neurologic: [Awake, alert and oriented X4, CN II-XII intact]. Psychiatric: [Cooperative, appropriate mood and affect]. Assessment/Plan 1.??Hypertension??I10 ?? 2.??Migraine??G43.909 ?? 3.??Obesity??E66.9 Ordered: Adipex-P 37.5 mg oral tablet, 1 tab(s) ( 37.5 mg ), Oral, Daily, # 30 tab(s), 0 Refill(s), Pharmacy: [facility], 1 tab(s) Oral Daily, 175.26, cm, 02/04/25 10:33:00 EDT, Height, 148.6,kg, 02/04/25 10:43:00 EDT, Weight Dosing, (Ordered) ?? 4.??Chronic sinusitis??J32.9 ?? 5.??Headache??R51.9 ?? 6.??GRACIE (obstructive sleep apnea)??G47.33 ?? 7.??Umbilical hernia??K42.9 ?? Orders: DULoxetine 60 mg oral delayed release capsule, 1 cap(s), Oral, Daily, # 30 cap(s), 5 Refill(s), Pharmacy: [facility], TAKE 1 CAPSULE BY MOUTH DAILY, 175.26, cm, 10/02/24 16:14:00 EST,Height, 139.3, kg, 10/02/24 16:24:00 EST, Weight Dosing, (Ordered) Referral Ambulatory, General Surgery, screening colonoscopy, 02/04/25 11:01:00 EDT, (Ordered) Referral Ambulatory, Otolaryngology, chronic sinusitis, 02/04/25 11:02:00 EDT, (Ordered) Problem List/Past Medical History Ongoing Chronic sinusitis Headache Hypertension Ileus Migraine Nausea Obesity GRACIE (obstructive sleep apnea) Side effect of medication Sleep apnea Umbilical hernia Historical No qualifying data Medications acetaminophen-hydrocodone 325 mg-5 mg oral tablet, TAKE 1 TABLET BY MOUTH THREE TIMES DAILY NEEDED for spondylosis without myelopathy Adipex-P 37.5 mg oral tablet, 37.5 mg= 1 tab(s), Oral, Daily Albuterol (Eqv-ProAir HFA) 90 mcg/inh inhalation aerosol, 2 puff(s), Inhale, q6hr, PRN Augmentin 500 mg-125 mg oral tablet, 1 tab(s), Oral, q12hr (int) baclofen 10 mg tablet, TAKE 1 TABLET BY MOUTH THREE TIMES DAILY NEEDED diclofenac DULoxetine 60 mg oral delayed release capsule, 1 cap(s), Oral, Daily fexofenadine 180 mg oral tablet, 1 tab(s), Oral, Daily lisinopril 20 mg oral tablet, 1 tab(s), Oral, Daily Medrol Dosepak 4 mg oral tablet, 1 packet(s), Oral, Once, as directed on package labeling omeprazole 20 mg oral delayed release capsule, 1 cap(s), Oral, Daily, 5 refills ondansetron 4 mg oral tablet, disintegrating, 4 mg= 1 tab(s), Oral, q8hr (int), 1 refills pregabalin 200 mg oral capsule, TAKE 1 CAPSULE BY MOUTH THREE TIMES DAILY propranolol 80 mg oral capsule, extended release, 1 cap(s), Oral, Daily SUMAtriptan 100 mg oral tablet, 1 tab(s), Oral, Daily Allergies No known allergies Social History Alcohol Use: Past. Electronic Cigarette/Vaping Electronic Cigarette Use: Never. Substance Use Substance use: Past. Marijuana- Comments: medical marijuana, no longer using. Tobacco Former tobacco user Tobacco Use:. Family History Arthritis: Mother and Grandparent. COPD - Chronic obstructive pulmonary disease: Mother. Cancer: Grandparent. Depression: Mother and Grandparent. Hypertension: Mother and Grandparent. Rheumatoid arthritis: Mother and Grandparent. Sleep apnea: Mother. Immunizations Vaccine Date Status Tdap 07/26/2023 Given [Electronically Signed on: 02/04/2025 11:24 EDT] GERMANIA NAILS [Verified on: 02/04/2025 11:24 EDT] GERMANIA NAILS Patient Care team information Care Team Personnel Name: GERMANIA NAILS DO Position: [facility] Physician Acute/ED/Clinic/Care Member Role: Primary Care Physician Address: [address] [place] [address]- Care Team Related Persons Name: GLORIA SAAB Insurance Providers Guarantor name: GOLDEN Health Plan Information #: 1 Payer: [employer] Member Number: [id number] Policy Number: NA Health Plan Information #: 2 Payer: [employer] Member Number: [id number] Policy Number: [id number]
--- OUTSIDE RECORDS SUMMARY | 2025-02-06 07:44 | XMS_ITS | CCD ---
Author Organization [facility] Care Team Providers Care Adult And Pediatric Neurologist Name Role Phone KIRNUS, DALLAS Unavailable Unavailable [...] CONWAY ., KALI Consulting Unavailable LAKSHMIPATHY ., NARENDOMEGAATH Attending Tiffany vailable LAKSHMIPATHY ., LENCHOATH Admitting Tiffany vailable LAKSHMIPATHY ., MESSI Consulting Tiffany vailable HOUSE, DR SOLO Primary Care Unavailable Marisol Zelaya Unavailable Abbey Robin Unavailable Milan Nails MD Primary Care Provider Comfort Masterson Unavailable Nghia Patrick MD Unavailable HOUSE, MILAN Medina Primary Care Unavailable ZAHRA SAL Attending Unavailable TRACIE MATHIS Consulting Unavailable LORENA WOLFF Admitting Unavailable BARBARA, COMFORT Attending Unavailable BARBARA, COMFORT Attending Unavailable DARNELL, NGHIA Attending Unavailable DARNELL, NGHIA Attending Unavailable BARBARA, COMFORT Attending Unavailable HOUSE, DO MILAN P Attending [...] / HYDROcodone bitartrate 5 mg oral tablet (12 sources) Opioid Agonist take 1 tablet by jay th every six hours as needed for pain HYDROcodone-acetami nophen ([place]) 5-325 MG tablet 1 tablet every 6 (six) hours if needed for severe pain Active take 1 tablet by jay th every six hours as needed [place] 5-325 MG 1 tablet as needed Orally every 6 hrs Active [id number] actuat albuterol 0.09 mg/actuat metered dose inhaler (2 sources) beta2-Adrenergic Agonist Albuter ol Sulfate HFA 108 (90 Base) MCG/ACT Inhalation for 25 Days Active Albuterol Sulfat e HFA 108 (90 Base) MCG/ACT Inhalation for 25 Days Active amitriptyline hydrochloride 25 mg oral tablet (10 sources) Tricyclic Antidepressant Start: 12-04-2024 take 3 tablets by mouth at bedtime amitriptyline (Elavil) 25 MG tablet Indications: Paresthesia Take 3 tablets (75 mg) by mouth at bedtime 90 tablet 3 12/04/2024 Active Start: 08-01-2024 take 1-0.5 tablets b y mouth once daily at [...] Sep, Active baclofen 10 mg oral tablet (15 sources) gamma-Aminobutyric Acid-ergic Agonist Start: 01-03-2025 End: 02-02-2025 baclofen (Lioresal) 10 MG tablet Indications: Chronic bilateral low back pain, unspecified whether sciatica present Take 1 tablet (10 mg) by mouth in the morning and 1 tablet (10 mg) at noon and 1 tablet (10 mg) in the evening and 1 tablet (10 mg) before bedtime. 120 tablet 01/03/2025 02/02/2025 Active Start: 10-29-2024 End: 01-03-2025 baclofen (Lioresal) 5 MG tab let Indications: Chronic bilateral low back pain, unspecified whether sciatica present TAKE 1 TABLET BY MOUTH THREE TIMES DAILY IN THE MORNING THEN IN THE EVENING THEN AT BEDTIME 90 tablet 1 10/29/2024 01/03/2025 Discontinued Start: 05-28-2024 End: 08-18-2024 take 1 tablet [...] DULoxetine 30 mg delayed release oral capsule (14 sources) Serotonin and Norepinephrine Reuptake Inhibitor Start: 12-05-2024 take 1 capsule by mouth once daily DULoxetine (Cymbalta) [address] capsule Indications: Neuropathic pain TAKE 1 CAPSULE BY MOUTH ONCE DAILY 30 capsule 3 12/05/2024 Active Start: 08-01-2024 take 1 capsule by [facility] once daily DULoxetine (Cymbalta) [address] capsule Indications: Neuropathic pain TAKE 1 CAPSULE BY MOUTH DAILY 30 capsule 3 08/01/2024 Active Start: 03-26-2024 take 1 capsule by [facility] once daily DULoxetine (Cymbalta) [address] capsule Indications: Neuropathic pain TAKE 1 CAPSULE BY MOUTH DAILY 30 capsule 3 03/26/2024 Active take 1 capsule by [facility] once daily DULoxetine HCl 30 MG TAKE 1 CAPSULE BY MOUTH DAILY Oral for 30 Days Active take 1 capsule by [facility] every twenty-four hours DULoxetine HCl 60 MG 1 capsule Orally Once a day Active fexofenadine hydrochloride 180 mg oral tablet (12 sources) Histamine-1 Receptor Antagonist take 1 tablet by mouth once daily fexofenadine (Leigh) 180 MG tablet Take 180 mg by mouth Daily Active take 1 tablet by [facility] every twelve hours Fexofenadine HCl 60 MG 1 tablet Orally T wice a day Active fluticasone propionate 0.05 mg/actuat metered dose nasal spray (1 source) Corticosteroid Start: 09-23-2023 take 2 spray(s) nasal route once daily Fluticasone Propionate 50 MCG/ACT 2 sprays Nasally Once a day for 14 day(s) Sep, Active lisinopril 20 mg oral tablet (12 sources) Angiotensin Converting Enzyme Inhibitor take 1 tablet by mouth once daily lisinopril 20 MG tablet Take 20 mg by mouth Daily Active Medical Marijuana / Cannabinoid Product as documented (2 sources) Medical Marijuan a / Cannabinoid Product as documented as documented as documented as documented Active omeprazole 40 mg delayed release oral capsule (12 sources) Proton Pump Inhibitor take 1 capsule [...] Mar, Not-Taking/PRN pregabalin 200 mg oral capsule (14 sources) Start: 01-31-2024 End: 01-30-2025 take 1 [...] Active propranolol hydrochloride 80 mg oral tablet (10 sources) beta-Adrenergic Piyush take 1 tablet by mouth in the morning propranolol (Inderal) 80 MG tablet Take 80 mg by mouth in the morning and 80 mg before bedtime. Active SUMAtriptan 100 mg oral tablet (10 sources) Serotonin-1b and Serotonin-1d Receptor Agonist take [...] Onset: 02-16-2023 Chronic Other nervous system disorders (10 sources) Neuropathy; Translations: [Polyneuropathy, unspecified] Onset: 04-11-2024 [...] Da te Episodic/Chronic Other nervous system disorders (10 sources) Sensory ataxia ; Translations: [Other lack of coordination] Onset: 04-11-2024 04-11-2024 Episodic Other nervous system disorders (10 sources) Numbness of lower limb ; Translations: [Anesthesia of skin] Onset: 04-11-2024 04-11-2024 Episodic Results Test Name Value Interpretation Reference Range Facility Release of Informationon Release of Information [id number]#1.00 [facility] Coding Summaryon 11-26-2024 Coding Summary HTMLBase 64 YiymnapoPRq5nCs+PGhlYW Q+AE2OOVJgC31ulEFxwX5o K5SGQCdCIuxwRHTZDOnQRu SdjeZhMS1jqXDtQMKj IC8+WV4uQEReMmdcpINbj1 B8iNJ6L12rhw7bQUiubZZ1 HWQvLzItblipx2dguMo6TW cuNmluOyBt DVAkeO26XUU8nN37Rm21yA MxcFPay2sxrEp4YvVgFECy TCE7pBcyNJjvr1IhESHwM5 4jxBOib7O7 MYImtXpnyJGgZbKpjDZ1fS 0lAGyamandk9szevrdEhe8 hn30dPEiy1M8rVD6Q3Ltho D3CQNjyVXc LoiaiKYQpW9melpkr6oidx tdRiXyKCJvERl7DGx1DJPy xJmsDoSqTC54QPZ9OKFfrk CyF2EvDERs nGcaExV4r2S9Uj8HG9LTOz tuO4GBJJWUEJbqeSX+PC90 nf96K3HnYlihUzy0VUVnDR P7uLO4bA4y BZGiZRgwp9K5mVP6O7Qroc Oden8bb9uaNDTbZAxtH61a nAPdh0R5ZCDfpLN6TSTypK vwHuGtaU32 Oyc+CKHenJcjo0NqIrhkj1 gcf2ugaEy8XyfoOYCkaiCg tIpnJGJ1r2LeNs1rJFFptD F7lMF3dC8t ZxWaTzB3GWozZ720ZyEuzZ OaLmekM77fE2JytBK+PHRy Biw5AYRtaPbmUY3kB3ClDZ RpbmctbGVm bEpbTQ4wFAGhgeztSUTugV 7uNTXqU1v6CsUzSsK4LRvx S6ZbPWUkaszbUz36qJ6kJs SjOwE8QNzx K7BjjxR7SNDbkUVhINhtOC J1B25be4C0IFAzJIPxLTS1 lKS5mY5jzKgnxxwcgGCdkI sgdmVydGlj SCnuLHfkT153VKBupGkrPc NvZGluZyBEYXRlOiAgMDMv MTAvMjAyNTwvdGQ+PHRkIH H0vYngASZb nYWzLIuoYi1fqNoxhQsjEA 3zOCVoueirYESqjH4rYUYo lYMafKptWR2aZOUunzeub4 68GxVzZBX4 XPCbxXDhU2IriO8uVmDjKH UwPOJsU8QaoHAhPXwfN737 RKzvHdO6LRYsgmEqG6EjYC FsaWduOiB0 l1R2Ng8Jv5NnjduiM0ZnwV LhFtWkEwfrVVt4N5HtIhux dHI+UL01SYXtLE92EMw7JJ E8dDnsJCdg LYXhP5QrlX7dVlFuPKVrJS RkOyc+PHRhYmxlIHdpZHRo VPhlVRSaWlDwiQvyPN0eTe 9yZGVyLWNv lHiroHKbWtLst5htBKZqIN cwNQ5zrUjqX2AbaJO8BEEv x2f9Av02J54sI0EvzAA+PG EvaZV7nUH2 hY0vGmDnBrN4PUvzG273Jc GydQZoVmekc7hqo5slyXs8 HrO0SQLauqUapIlcUCK0x6 AyHs26W28n IHdpZHRoPSIxNSUiIHZhbG jogp7xkH1sLg3+PGNvbCB3 xED4rK8bFzBqJfL4ANxkG8 49InRvcCIv Sidyd3xfg8djkAs4MhItLH RgicYegOklUDT0o5NcXa14 R5RshLpqy5BnTra4ai64sU Ryw4A6kDX4 S8FfQSEcilcvjLPvfFblID 7rJBRsbbznHFVqiF4iBITb S0z8ClCgVxD6IPfxV7Crpc Q9OAUucYZv PZDpbWYMjA6hpuqse7mvji zvZpQhVLBsGJc6LGf1WQTw hFcvHkFrPVT1VcZ0QNW1nO UjlO2ynZjq ieinkZ0zCkz+DLR3wHEuuH JOZC6mTtxpeWZ+PHRkIHN0 iHvgBMniSXGgoT5bRRLrU5 g1YdHxXzG5 JUvtW4EocpA8AYWwvZAsUD FrqVRBwF3hqtmao1ucdghu GaVdLYOiPUg2YVn5YVAufH duOiBsZWZ0 TiP3GPY5tRAccA6pvYbqkv wpsN8aOti+QmlydGggRGF0 YTy2Y7UvOol4TFGkuMauFR 0ncGFkZGlu Xh3iwFaebRukGN8mIYIueq dib327GzNku7qeLYGyhRGx RRekAXY5Z58ux2Y2JDQyBD HaIGP7wTI0 jM8tlDqirjzbmLHymOkwrf KimPqyZYybGXweX033JGAl wOhmPoPvPWj0A2KwVjw5IU OatDyjZA7z mSEvZZpoXu8jzYvybKehQY 1vDHHbngnjk017XgCtd0ys ZTOqiEZjCWdhMCW7Q38xk6 Q5YXVjTKIj VDE3nIF9tI3bgNasnkdlgY VmdDsgdmVydGljYWwtYWxp A368LHZwiZuyVfUclXn2U4 FqKqu5SJVq bPquTP3kiJCaZMieVp1krM vaxOjqSI2fUGAvnarya297 FsXgr2keYCLhmNZjDLteTD L4E07uq6A7 EPXqVPSjCER0eEG2xE7jkE lnbjogbGVmdDsgdmVydGlj JYrcRDmxC727YGSovNqiIa BhdGllbnQg ZOsnIQy3S8WaOkpydKE+PC 42CUAlSE08dNTonGKuz8nx kTj5LzZlTPSrGNQ5nXjrGA mrt6IqPTDh Q16pqRHrm9Z7ZSNtzEgozE ZsNhIrmBN1jF3qDCzjqvap h1yxorkkWgvhv4rzcv25kP 54C68bAWxa ZHRoPSIzMCUiIHZhbGlnbj 1vhV1pMw7+SRVwsPR4bQI2 kC2sQNFkOjP3BEdiX193Wb RvcCIvPjxj m9ary4iolHa6FhM3MCQiom AlkRqdQMQ3t8EkSr83Y98p IHdpZHRoPSIyMCUiIHZhbG atuv3juO5u Ii8+CGDeySR8mLB8oZ6rCq ZzZhS7IIeeW602NcTgzUUm HkhfT92bE0AzzOA+PHRyPj l4KWXocFgd PK9jnOCcQIbfTw3vKPY8Jj IeVoDmDSoxL3BuNIBixhqc btblpAF3USJcEDFnbJ46Kg 9udDogMTBw kTGTsF4xhmsiu2gwzqubZt WaXSFaOZi5WNd7KLCymLcm BcGwBNY2YdB7HDB7rQFjgF 1hbGlnbjog pY1dQ4HfLBJewaqsEw10rQ 3tNtWrBgM1MFpfPnu+U0VE FV1JOlhmO1NFGUWNBIXWU0 FSRDwvdGQ+ DGDfYDG4uKmxPKvaBZAcoM 2wWAMdM3t7XdExIvA8MBvw E5NbPPWndaaeSd99tX4nTn KuEbB3PFfw I1RnztV4HLHldNFlEIuuBF W0O28kx3V4MLXcERRhEVG0 fKX4lZ0ybXmtcyptbMKqgK sgdmVydGlj AAeyQGcnV181OAZjxYwhYu IaVzUhNvI7RvY2X7KgEgc3 OKDnpImxPW3qsGRwRLqhCu 1yaWdodDog TF9dFFQgpqzzLDSjgJ6aNL OzrZIfyQsfPK0pERHwxokj n105FiHuWMZ5BVClnPUaX5 EbgB8gAmGu RQBmAFXjI0FpyXGhHPenB5 01WKpyChZ7OKOtpmWaZ4Na MPMicStkGdD8d5M6Up06VM BZZWFyczwv dGQ+TROmGHV7gXmwJStsBF UkqB9gIHZdA4n9VlRjRcJ0 LRimC5TmZRMkwnbnHd19uH 7lScApYoZ7 ITxvC8TawxV3SQItvEKkAV omZKX9P06xo7V4RHKbCNSa VDJ9hGQ4gL2puImtvsffpT VmdDsgdmVy tViqDOdkUSawL443KDMlpU seVj2BFRO2Q8NxSpm8TMPy rAwyPU3teHKmMRxePc4qcL rlqMclSP2h DUMpnlltRFFuxA4qWYOipO SgkTskVJ3wXKNhopbzi662 LpKoONO1QGIcwIUbE0RqlG 9yOiAjMDAw JQTbH9WujPVjYIdgP359UW guQrG3INFcuiUwB6UoVDIl pOhmMpN3c2X5Pw3FXXhtjD Q+JW40pj79 N4DcEbufRor3ICWrRGI7nK Z7zC1qLKRyQMlct7J2zRC0 V6VjxqMigk8jh5ycVCBjAN rlR73shBTj c5E7WSIcnMN2LJAetVoiNk ZkoN55Ghf+OSDojOzux8Dr Dzekt2hrh0wrhGe8MdEsFS IgdmFsaWdu VAQ5o3PnSt30N59rIUhyNS SlQDDxNWLdUNLsyJllpz1z kW1wBv4+UVOecXV8qBQ0vB 5xDrNxEjP9 BAtmC145VbWynCDrUrcep4 cev7ifuOc8YpZgOOPflxEr fOhzFGZ5w3LoXg60A9UtgO pou7WeHqe5 fw29tTFgr9I6gBO7M0GoJO KsunlozGZmhEtaGS5rKAVb uvqrHTUnkE9fFHQxV3r7Xg CyGcV8ZEfi T6RkpwY2PQWuoHIaDMXkkM YFlX3chzrmz3xssjibAoOq SJUkQCg6HQm1JTIuzKcoRu ZiGJU7HrB7 NTG7zMHnsC4ngYjegcgrbA 9wOyc+SFk8y1mfwFKyGM6z jWV8DE57FN32zUXep2S4lH R3N6KfLIKn hnuxtsjfrSH3YSCsIISutH 59Br9sdPpyXz2sBOQcYWP6 JPOeoBJaI3WukD2cErQaZS CfZFBlJ9Ri cIKfCGznW551JTlaUsE0II HafcHhM3DzBPYcmPrgIbW6 b2K8Ak9AWB15NG34CI54yZ Xgl3D6rEO1 R3CvEGXfrpqhyoxwvLI5PL NlEUQgiI29Nh8zuZpwEw2t IRMhWOZ8HNNtdEMoV3GqvK 9yOiAjMDAw ROScN7UvxMLaKQckF789QB riOzR4NOPlndFoR7HhEUNc aHvkCxR9m9N0Ub8QTp94TE 24PB29kSKl v6X0ePG1Y5XoGMEqfnogyu aexCJ4LEBrVQPzeR64Ny9d cVkoNi3qLWOfGOB7TDCjuP KlR0XruX9y SnAjIYBoPVCoN0EzqIMqDD uvW620MXzcTkP5HLBoodDm L0QqGJNdkFwzAfI7z4Q1Yn 2RHDivuel8 X2SjRsyiiCB+LL20HIDkPV 90qPBomDPsk0skkUr1XpNl FUAdRFT6vWrkORcoo1GeYN LsO39gyYGb c2U (more content not included)... [facility] Reminder Messageson 11-20-19 25 Reminder Messages - From: MILAN NAILS DO To: [facility] Clinical Pool ([facility]); Sent: 11/19/2024 07:59:43 EST ! Show up: 11/19/2024 07:59:43 EST Subject: Results Follow Up Actions: Call the patient with result(s) Due Date/Time: 11/20/2024 07:59:00 EST Reminder Comments: cysts seen in both maxillary sinuses. suggest ent referral Results: Date Result Type Result Name 11/16/2024 9:[address] Sinus w/o Contrast Order placed [facility] Outside Recordson 11-08-2024 Outside Records [id number] 0OTGTIFF [facility] Outside Recordson 08-09-2024 Outside Records [id number]. 00OTGTIFF [facility] CBC AND AUTO DIFFon 07-27-20 24 ABSOLUTE BASOPHIL 0.1 X10E9/L Normal 0.0-0.2 [facility] Comment on above: Performed By: #### C BCA CMP, 3040-3 #### [facility] ([id number]) [address] [place] [address] [place] [address] ABSOLUTE NEUTROPHIL 5.7 X10E9/L Normal 1.5-6.6 [facility] Comment on above: Performed By: #### C BCA, CMP, 3040-3 #### [facility] ([id number]) [address] [place] [address] 03881 Basophils/100 WBC (Bld) 0.6 % Normal [facility] Comment on above: Performed By: #### Yousif HERRERA CMP, 3039-11 #### [facility] ([id number]) [address] [place] [address] 68059 Eosinophils (Bld) [#/Vol] 0.2 10*3/uL Normal 0.0-0.4 [facility] Comment on above: Performed By: #### Yousif HERRERA CMP, 3039-11 #### [facility] ([id number]) [address] [place] [address] 99651 Eosinophils/100 WBC (Bld) 2.4 % Normal [facility] Comment on above: Performed By: #### Yousif HERRERA CMP, 3039-11 #### [facility] ([id number]) [address] [place] [address] 47204 Erythrocyte distribution width (RBC) [Ratio] 12.8 % Normal 11.5-15.0 [facility] Comment on above: Performed By: #### Yousif HERRERA CMP, 3039-11 #### [facility] ([id number]) [address] [place] [address] 40942 Hematocrit (Bld) [Volume fraction] 40.2 % Normal 39-49 [facility] Comment on above: Performed By: #### Yousif HERRERA CMP, 3039-11 #### [facility] ([id number]) [address] [place] [address] 35615 Hemoglobin (Bld) [Mass/Vol] 13.4 g/dL Normal 13.0-17.0 [facility] Comment on above: Performed By: #### Yousif HERRERA CMP, 3039-11 #### [facility] ([id number]) [address] [place] [address] 71706 Lymphocytes (Bld) [#/Vol] 2.5 10*3/uL Normal 1.0-3.5 [facility] Comment on above: Performed By: #### Yousif HERRERA CMP, 3039-11 #### [facility] ([id number]) [address] [place] [address] 57699 Lymphocytes/100 WBC (Bld) 26.9 % Normal [facility] Comment on above: Performed By: #### Yousif HERRERA CMP, 3039-11 #### [facility] ([id number]) [address] [place] [address] 35168 MCH (RBC) [Entitic mass] 28.9 pg Normal 27-34 [facility] Comment on above: Performed By: #### Yousif HRERERA CMP, 3039-11 #### [facility] ([id number]) [address] [place] [address] 42347 MCHC (RBC) [Mass/Vol] 33.4 g/dL Normal 32-36 [facility] Comment on above: Performed By: #### Yousif HERRERA CMP, 3039-11 #### [facility] ([id number]) [address] [place] [address] 51138 MCV (RBC) [Entitic vol] 87 fL Normal 80-100 [facility] Comment on above: Performed By: #### Yousif HERRERA CMP, 3039-11 #### [facility] ([id number]) [address] [place] [address] 99437 Monocytes (Bld) [#/Vol] 0.9 10*3/uL Normal 0-0.9 [facility] Comment on above: Performed By: #### Yousif HERRERA CMP, 3039-11 #### [facility] ([id number]) [address] [place] [address] 75482 Monocytes/100 WBC (Bld) 9.2 % Normal [facility] Comment on above: Performed By: #### Yousif HERRERA CMP, 3040-3 #### [facility] ([id number]) [address] [place] [address] 45744 Neutrophils/100 WBC (Bld) 60.9 % Normal [facility] Comment on above: Performed By: #### C BCA, CMP, 3039-3 #### [facility] ([id number]) [address] [place] [address] 43863 Platelet mean volume (Bld) [Entitic vol] 8.7 fL Normal 7-12 [facility] Comment on above: Performed By: #### C JAVIER, CMP, 3 #### [facility] ([id number]) [address] [place] [address] 51349 Platelets (Bld) [#/Vol] 351 10*3/uL Normal 150-450 [facility] Comment on above: Performed By: #### Yousif BCA, CMP, 3 #### [facility] ([id number]) [address] [place] [address] 13445 RBC COUNT 4.64 X10E12/L Normal 4.10-5.70 [facility] Comment on above: Performed By: #### Yousif BCA, CMP, 3 #### [facility] ([id number]) [address] [place] [address] 03990 WBC (Bld) [#/Vol] 9.3 10*3/uL Normal 4.0-11.0 [facility] Comment on above: Performed By: #### C BCA, CMP, 3 #### [facility] ([id number]) [address] [place] [address] 52649 COMPREHENSIVE METABOLIC PANE Brian 07-27-2024 Albumin [Mass/Vol] 3.8 g/dL Normal 3.2-5.3 [facility] Comment on above: Performed By: #### Yousif BCA, CMP, 3039-3 #### [facility] ([id number]) [address] [place] [address] 68369 ALP [Catalytic activity/Vol] 53 U/L Normal 39-130 [facility] Comment on above: Performed By: #### C BCA, CMP, 3040-3 #### [facility] ([id number]) [address] [place] [address] 20058 ALT [Catalytic activity/Vol] 16 U/L Normal 0-40 [facility] Comment on above: Performed By: #### C JAVIER, CMP, 3039-3 #### [facility] ([id number]) [address] [place] [address] 88516 Anion gap [Moles/Vol] 9 mmol/L Normal 5-15 [facility] Comment on above: Performed By: #### C JAVIER, CMP, 3039-3 #### [facility] ([id number]) [address] [place] [address] 37095 AST [Catalytic activity/Vol] 15 U/L Normal 0-41 [facility] Comment on above: Performed By: #### C BCA, CMP, 3039-3 #### [facility] ([id number]) [address] [place] [address] 12131 Bilirubin [Mass/Vol] 1.0 mg/dL Normal 0.3-1.2 [facility] Comment on above: Performed By: #### C BCA, CMP, 3039-3 #### [facility] ([id number]) [address] [place] [address] 13320 Calcium [Mass/Vol] 8.8 mg/dL Normal 8.5-10.5 [facility] Comment on above: Performed By: #### C BCA, CMP, 0-3 #### [facility] ([id number]) [address] [place] [address] 02784 Chloride [Moles/Vol] 106 mmol/L Normal 98-109 [facility] Comment on above: Performed By: #### C ANTONIETTA HERRERA, 3040-3 #### [facility] ([id number]) [address] [place] [address] 17206 CO2 [Moles/Vol] 25 mmol/L Normal 22-32 [facility] Comment on above: Performed By: #### C ANTONIETTA HERRERA, 3 #### [facility] ([id number]) [address] [place] [address] 60941 Creatinine [Mass/Vol] 0.83 mg/dL Normal 0.70-1.20 [facility] Comment on above: Result Comment: METH OD TRACEABLE TO IDMS STANDARD Performed By: #### C ANTONIETTA HERRERA, 3 #### [facility] ([id number]) [address] [place] [address] 49612 eGFR (CKD-EPI) NON-RACE DEPENDENT >90 Normal >59 [facility] Comment on above: Result Comment: Reported eGFR is based on the CKD-EPI 2020 equation that does not use a race coefficient. Performed By: #### C ANTONIETTA HERRERA, 3 #### [facility] ([id number]) [address] [place] [address] 28105 Glucose [Mass/Vol] 103 mg/dL High 65-99 [facility] Comment on above: Performed By: #### Yousif HERRERA CMP, 3 #### [facility] ([id number]) [address] [place] [address] 16280 Potassium [Moles/Vol] 4.3 mmol/L Normal 3.5-5.0 [facility] Comment on above: Performed By: #### Yousif HERRERA CMP, 3039-3 #### [facility] ([id number]) [address] [place] [address] 49468 Protein [Mass/Vol] 6.3 g/dL Normal 6.0-8.0 [facility] Comment on above: Performed By: #### C JAVIER, CMP, 3040-3 #### [facility] ([id number]) [address] [place] [address] 90238 Sodium [Moles/Vol] 140 mmol/L Normal 134-146 [facility] Comment on above: Performed By: #### C JAVIER CMP, 3039-3 #### [facility] ([id number]) [address] [place] [address] 96441 Urea nitrogen [Mass/Vol] 5 mg/dL Normal 5-23 [facility] Comment on above: Performed By: #### C JAVIER CMP, 3039-3 #### [facility] ([id number]) [address] [place] [address] 79648 MAGNESIUMon 07-27-2024 Magnesium [Mass/Vol] 2.1 mg/dL Normal 1.8-2.6 [facility] Comment on above: Performed By: #### C JAVIER, CMP, 3039-3 #### [facility] ([id number]) [address] [place] [address] 52190 CBC AND AUTO DIFFon 07-26-20 24 ABSOLUTE BASOPHIL 0.0 X10E9/L Normal 0.0-0.2 [facility] Comment on above: Performed By: #### C BCA, CMP, 0-3 #### [facility] ([id number]) [address] [place] [address] 22107 ABSOLUTE NEUTROPHIL 5.6 X10E9/L Normal 1.5-6.6 [facility] Comment on above: Performed By: #### C BCA, CMP, 0-3 #### [facility] ([id number]) [address] [place] [address] 77714 Basophils/100 WBC (Bld) 0.5 % Normal [facility] Comment on above: Performed By: #### C BCA, CMP, 3039-11 #### [facility] ([id number]) [address] [place] [address] 18230 Eosinophils (Bld) [#/Vol] 0.3 10*3/uL Normal 0.0-0.4 [facility] Comment on above: Performed By: #### Yousif HERRERA CMP, 3039-11 #### [facility] ([id number]) [address] [place] [address] 34146 Eosinophils/100 WBC (Bld) 3.7 % Normal [facility] Comment on above: Performed By: #### Yousif HERRERA CMP, 3039-11 #### [facility] ([id number]) [address] [place] [address] 85244 Erythrocyte distribution width (RBC) [Ratio] 12.7 % Normal 11.5-15.0 [facility] Comment on above: Performed By: #### Yousif HERRERA CMP, 3039-11 #### [facility] ([id number]) [address] [place] [address] 36349 Hematocrit (Bld) [Volume fraction] 41.7 % Normal 39-49 [facility] Comment on above: Performed By: #### Yousif HERRERA CMP, 3039-11 #### [facility] ([id number]) [address] [place] [address] 64987 Hemoglobin (Bld) [Mass/Vol] 14.4 g/dL Normal 13.0-17.0 [facility] Comment on above: Performed By: #### Yousif HERRERA CMP, 3039-11 #### [facility] ([id number]) [address] [place] [address] 31782 Lymphocytes (Bld) [#/Vol] 2.2 10*3/uL Normal 1.0-3.5 [facility] Comment on above: Performed By: #### Yousif HERRERA CMP, 3040-3 #### [facility] ([id number]) [address] [place] [address] 55485 Lymphocytes/100 WBC (Bld) 25.4 % Normal [facility] Comment on above: Performed By: #### Yousif HERRERA CMP, 3039-3 #### [facility] ([id number]) [address] [place] [address] 40840 MCH (RBC) [Entitic mass] 29.7 pg Normal 27-34 [facility] Comment on above: Performed By: #### Yousif HERRERA CMP, 3039-11 #### [facility] ([id number]) [address] [place] [address] 26414 MCHC (RBC) [Mass/Vol] 34.5 g/dL Normal 32-36 [facility] Comment on above: Performed By: #### Yousif HERRERA CMP, 3 #### [facility] ([id number]) [address] [place] [address] 79476 MCV (RBC) [Entitic vol] 86 fL Normal 80-100 [facility] Comment on above: Performed By: #### Yousif HERRERA CMP, 3039-11 #### [facility] ([id number]) [address] [place] [address] 70872 Monocytes (Bld) [#/Vol] 0.7 10*3/uL Normal 0-0.9 [facility] Comment on above: Performed By: #### Yousif HERRERA CMP, 3 #### [facility] ([id number]) [address] [place] [address] 21327 Monocytes/100 WBC (Bld) 7.4 % Normal [facility] Comment on above: Performed By: #### Yousif HERRERA CMP, 3 #### [facility] ([id number]) [address] [place] [address] 66433 Neutrophils/100 WBC (Bld) 63.0 % Normal [facility] Comment on above: Performed By: #### Yousif HERRERA CMP, 3040-3 #### [facility] ([id number]) [address] [place] [address] 60613 Platelet mean volume (Bld) [Entitic vol] 8.6 fL Normal 7-12 [facility] Comment on above: Performed By: #### Yousif HERRERA CMP, 3039-3 #### [facility] ([id number]) [address] [place] [address] 55918 Platelets (Bld) [#/Vol] 345 10*3/uL Normal 150-450 [facility] Comment on above: Performed By: #### Yousif HERRERA CMP, 0-3 #### [facility] ([id number]) [address] [place] [address] 96668 RBC COUNT 4.84 X10E12/L Normal 4.10-5.70 [facility] Comment on above: Performed By: #### Yousif HERRERA CMP, 3039-3 #### [facility] ([id number]) [address] [place] [address] 61015 WBC (Bld) [#/Vol] 8.8 10*3/uL Normal 4.0-11.0 [facility] Comment on above: Performed By: #### Yousif HERRERA CMP, 0-3 #### [facility] ([id number]) [address] [place] [address] 00712 COMPREHENSIVE METABOLIC PANE Brian 07-26-2024 Albumin [Mass/Vol] 3.9 g/dL Normal 3.2-5.3 [facility] Comment on above: Performed By: #### Yousif HERRERA, CMP, 3040-3 #### [facility] ([id number]) [address] [place] [address] 51596 ALP [Catalytic activity/Vol] 57 U/L Normal 39-130 [facility] Comment on above: Performed By: #### C BCA, CMP, 3039-3 #### [facility] ([id number]) [address] [place] [address] 22182 ALT [Catalytic activity/Vol] 21 U/L Normal 0-40 [facility] Comment on above: Performed By: #### C BCA, CMP, 3039-3 #### [facility] ([id number]) [address] [place] [address] 30991 Anion gap [Moles/Vol] 9 mmol/L Normal 5-15 [facility] Comment on above: Performed By: #### C BCA, CMP, 3039-3 #### [facility] ([id number]) [address] [place] [address] 41376 AST [Catalytic activity/Vol] 18 U/L Normal 0-41 [facility] Comment on above: Performed By: #### Yousif BCA, CMP, 3039-3 #### [facility] ([id number]) [address] [place] [address] 58154 Bilirubin [Mass/Vol] 0.9 mg/dL Normal 0.3-1.2 [facility] Comment on above: Performed By: #### C BCA, CMP, 3039-3 #### [facility] ([id number]) [address] [place] [address] 67832 Calcium [Mass/Vol] 8.8 mg/dL Normal 8.5-10.5 [facility] Comment on above: Performed By: #### C BCA, CMP, 3039-3 #### [facility] ([id number]) [address] [place] [address] 50406 Chloride [Moles/Vol] 106 mmol/L Normal 98-109 [facility] Comment on above: Performed By: #### C BCA, CMP, 3039-3 #### [facility] ([id number]) [address] [place] [address] 40182 CO2 [Moles/Vol] 23 mmol/L Normal 22-32 [facility] Comment on above: Performed By: #### C ANTONIETTA HERRERA, 3040-3 #### [facility] ([id number]) [address] [place] [address] 43225 Creatinine [Mass/Vol] 0.80 mg/dL Normal 0.70-1.20 [facility] Comment on above: Result Comment: METH OD TRACEABLE TO IDMS STANDARD Performed By: #### C ANTONIETTA HERRERA, 3 #### [facility] ([id number]) [address] [place] [address] 58661 eGFR (CKD-EPI) NON-RACE DEPENDENT >90 Normal >59 [facility] Comment on above: Result Comment: Reported eGFR is based on the CKD-EPI 2020 equation that does not use a race coefficient. Performed By: #### C ANTONIETTA HERRERA, 3 #### [facility] ([id number]) [address] [place] [address] 15303 Glucose [Mass/Vol] 83 mg/dL Normal 65-99 [facility] Comment on above: Performed By: #### C ANTONIETTA HERRERA, 3039-3 #### [facility] ([id number]) [address] [place] [address] 33874 Potassium [Moles/Vol] 3.4 mmol/L Low 3.5-5.0 [facility] Comment on above: Performed By: #### C ANTONIETTA HERRERA, 3039-3 #### [facility] ([id number]) [address] [place] [address] 34350 Protein [Mass/Vol] 6.6 g/dL Normal 6.0-8.0 [facility] Comment on above: Performed By: #### C ANTONIETTA HERRERA, 3039-3 #### [facility] ([id number]) [address] [place] [address] 01000 Sodium [Moles/Vol] 138 mmol/L Normal 134-146 [facility] Comment on above: Performed By: #### Yousif HERRERA CMP, 3040-3 #### [facility] ([id number]) [address] [place] [address] 90993 Urea nitrogen [Mass/Vol] 8 mg/dL Normal 5-23 [facility] Comment on above: Performed By: #### Yousif HERRERA CMP, 0-3 #### [facility] ([id number]) [address] [place] [address] 63680 MAGNESIUMon 07-26-2024 Magnesium [Mass/Vol] 2.0 mg/dL Normal 1.8-2.6 [facility] Comment on above: Performed By: #### Yousif HERRERA CMP, 3039-3 #### [facility] ([id number]) [address] [place] [address] 23010 POTASSIUMon 07-26-2024 Potassium [Moles/Vol] 3.3 mmol/L Low 3.5-5.0 [facility] Comment on above: Performed By: #### Yousif HERRERA CMP, 0-3 #### [facility] ([id number]) [address] [place] [address] 34364 Potassium [Moles/Vol] 3.1 mmol/L Low 3.5-5.0 [facility] Comment on above: Performed By: #### Yousif HERRERA CMP, 0-3 #### [facility] ([id number]) [address] [place] [address] 00743 XR ABDOMEN AP 1 VWon 024 XR [...] Valenzuela MD on 07/26/2024 8:55 AM Normal [facility] CBC AND AUTO DIFFon 07-25-20 24 ABSOLUTE BASOPHIL 0.1 X10E9/L Normal 0.0-0.2 [facility] Comment on above: Performed By: #### C JAVIER, CMP, 06958-7 #### [facility] ([id number]) [address] [place] [address] 44759 ABSOLUTE NEUTROPHIL 4.3 X10E9/L Normal 1.5-6.6 [facility] Comment on above: Performed By: #### Yousif HERRREA, CMP, 22416-2 #### [facility] ([id number]) [address] [place] [address] 90929 Basophils/100 WBC (Bld) 0.7 % Normal [facility] Comment on above: Performed By: #### Yousif BCA, CMP, 46512-1 #### [facility] ([id number]) [address] [place] [address] 75294 Eosinophils (Bld) [#/Vol] 0.4 10*3/uL Normal 0.0-0.4 [facility] Comment on above: Performed By: #### Yousif HERRERA, CMP, 45799-8 #### [facility] ([id number]) [address] [place] [address] 16750 Eosinophils/100 WBC (Bld) 4.5 % Normal [facility] Comment on above: Performed By: #### Yousif BCA, CMP, 35869-7 #### [facility] ([id number]) [address] [place] [address] 92122 Erythrocyte distribution width (RBC) [Ratio] 12.9 % Normal 11.5-15.0 [facility] Comment on above: Performed By: #### Yousif BCA, CMP, #### [facility] ([id number]) [address] [place] [address] 09048 Hematocrit (Bld) [Volume fraction] 40.5 % Normal 39-49 [facility] Comment on above: Performed By: #### Yousif HERRERA CMP, 36417-5 #### [facility] ([id number]) [address] [place] [address] 12219 Hemoglobin (Bld) [Mass/Vol] 13.8 g/dL Normal 13.0-17.0 [facility] Comment on above: Performed By: #### Yousif HERRERA CMP, #### [facility] ([id number]) [address] [place] [address] 46301 Lymphocytes (Bld) [#/Vol] 2.7 10*3/uL Normal 1.0-3.5 [facility] Comment on above: Performed By: #### Yousif HERRERA CMP, #### [facility] ([id number]) [address] [place] [address] 48369 Lymphocytes/100 WBC (Bld) 32.2 % Normal [facility] Comment on above: Performed By: #### Yousif HERRERA [facility], #### [facility] ([id number]) [address] [place] [address] 08448 MCH (RBC) [Entitic mass] 29.5 pg Normal 27-34 [facility] Comment on above: Performed By: #### Yousif HERRERA CMP, #### [facility] ([id number]) [address] [place] [address] 12602 MCHC (RBC) [Mass/Vol] 34.0 g/dL Normal 32-36 [facility] Comment on above: Performed By: #### Yousif HERRERA CMP, #### [facility] ([id number]) [address] [place] [address] 29210 MCV (RBC) [Entitic vol] 87 fL Normal 80-100 [facility] Comment on above: Performed By: #### Yousif HERRERA CMP, 08994-2 #### [facility] ([id number]) [address] [place] [address] 61151 Monocytes (Bld) [#/Vol] 1.0 10*3/uL High 0-0.9 [facility] Comment on above: Performed By: #### Yousif HERRERA CMP, #### [facility] ([id number]) [address] [place] [address] 34324 Monocytes/100 WBC (Bld) 11.8 % Normal [facility] Comment on above: Performed By: #### Yousif HERRERA CMP, 44978-9 #### [facility] ([id number]) [address] [place] [address] 61240 Neutrophils/100 WBC (Bld) 50.8 % Normal [facility] Comment on above: Performed By: #### Yousif HERRERA [facility], 06104-5 #### [facility] ([id number]) [address] [place] [address] 82179 Platelet mean volume (Bld) [Entitic vol] 8.6 fL Normal 7-12 [facility] Comment on above: Performed By: #### Yousif HERRERA CMP, #### [facility] ([id number]) [address] [place] [address] 67683 Platelets (Bld) [#/Vol] 355 10*3/uL Normal 150-450 [facility] Comment on above: Performed By: #### Yousif HERRERA, CMP, #### [facility] ([id number]) [address] [place] [address] 70492 RBC COUNT 4.67 X10E12/L Normal 4.10-5.70 [facility] Comment on above: Performed By: #### Yousif HERRERA CMP, #### [facility] ([id number]) [address] [place] [address] 72099 WBC (Bld) [#/Vol] 8.4 10*3/uL Normal 4.0-11.0 [facility] Comment on above: Performed By: #### C BCA, CMP, #### [facility] ([id number]) [address] [place] [address] 23878 COMPREHENSIVE METABOLIC PANE Brian 07-25-2024 Albumin [Mass/Vol] 3.7 g/dL Normal 3.2-5.3 [facility] Comment on above: Performed By: #### C BCA, CMP, 97531-9 #### [facility] ([id number]) [address] [place] [address] 18884 ALP [Catalytic activity/Vol] 56 U/L Normal 39-130 [facility] Comment on above: Performed By: #### C BCA, CMP, #### [facility] ([id number]) [address] [place] [address] 64476 ALT [Catalytic activity/Vol] 21 U/L Normal 0-40 [facility] Comment on above: Performed By: #### C BCA, CMP, 00300-9 #### [facility] ([id number]) [address] [place] [address] 79945 Anion gap [Moles/Vol] 5 mmol/L Normal 5-15 [facility] Comment on above: Performed By: #### C BCA, CMP, #### [facility] ([id number]) [address] [place] [address] 56574 AST [Catalytic activity/Vol] 16 U/L Normal 0-41 [facility] Comment on above: Performed By: #### C BCA, CMP, #### [facility] ([id number]) [address] [place] [address] 53750 Bilirubin [Mass/Vol] 0.8 mg/dL Normal 0.3-1.2 [facility] Comment on above: Performed By: #### C ANTONIETTA HERRERA, 53811-7 #### [facility] ([id number]) [address] [place] [address] 98006 Calcium [Mass/Vol] 8.4 mg/dL Low 8.5-10.5 [facility] Comment on above: Performed By: #### C JAVIER [facility], 24922-3 #### [facility] ([id number]) [address] [place] [address] 44627 Chloride [Moles/Vol] 110 mmol/L High 98-109 [facility] Comment on above: Performed By: #### C JAVIER [facility], #### [facility] ([id number]) [address] [place] [address] 04717 CO2 [Moles/Vol] 23 mmol/L Normal 22-32 [facility] Comment on above: Performed By: #### C JAVIER [facility], 49869-0 #### [facility] ([id number]) [address] [place] [address] 31518 Creatinine [Mass/Vol] 0.94 mg/dL Normal 0.70-1.20 [facility] Comment on above: Result Comment: METH OD TRACEABLE TO IDMS STANDARD Performed By: #### C ANTONIETTA HERRERA, #### [facility] ([id number]) [address] [place] [address] 36849 eGFR (CKD-EPI) NON-RACE DEPENDENT >90 Normal >59 [facility] Comment on above: Result Comment: Reported eGFR is based on the CKD-EPI 2020 equation that does not use a race coefficient. Performed By: #### C JAVIER CMP, #### [facility] ([id number]) [address] [place] [address] 54738 Glucose [Mass/Vol] 102 mg/dL High 65-99 [facility] Comment on above: Performed By: #### Yousif HERRERA [facility], 54082-7 #### [facility] ([id number]) [address] [place] [address] 47241 Potassium [Moles/Vol] 3.6 mmol/L Normal 3.5-5.0 [facility] Comment on above: Performed By: #### Yousif HERRERA [facility], 33844-9 #### [facility] ([id number]) [address] [place] [address] 64288 Protein [Mass/Vol] 6.3 g/dL Normal 6.0-8.0 [facility] Comment on above: Performed By: #### Yousif HERRERA [facility], 97296-4 #### [facility] ([id number]) [address] [place] [address] 38361 Sodium [Moles/Vol] 138 mmol/L Normal 134-146 [facility] Comment on above: Performed By: #### Yousif HERRERA [facility], 71177-9 #### [facility] ([id number]) [address] [place] [address] 24107 Urea nitrogen [Mass/Vol] 12 mg/dL Normal 5-23 [facility] Comment on above: Performed By: #### Yousif HERRERA [facility], 77831-2 #### [facility] ([id number]) [address] [place] [address] ABDOMEN AND PELVIS W CONT on [...] Findings Committee. J Am Ag Radiol. 2017 Apr;14(8):2761-[address] scans at this facility use dose modulation, iterative reconstruction, and/or weight based dosing when appropriate to reduce radiation dose to as low as reasonably achievable. Finalized by Bam Camejo MD on 07/25/2024 10:48 AM Normal [facility] Glucose Glucometer (dC) [M ass/Vol]on 07-25-2024 Glucose [Mass/Vol] 76 mg/dL Normal 65-99 [facility] MAGNESIUMon 07-25-2024 Magnesium [Mass/Vol] 1.9 mg/dL Normal 1.8-2.6 [facility] Comment on above: Performed By: #### C ANTONIETTA HERRERA, 74457-8 #### [facility] ([id number]) [address] [place] [address] 94277 XR CHEST 1 VWon 07-25-2024 XR CHEST [...] extends below the diaphragm and off the wqemq-qf-txpy. IMPRESSION: 1. No acute cardiopulmonary disease. 2. Moderate-sized hiatal hernia. There is a gastric tube with the tip extending below the diaphragm and off the seoef-it-jqup. Finalized by Fracnisco Bangura MD on 07/25/2024 5:24 PM Normal [facility] XR CHEST 1 VW XR CHEST 1 [...] Carlisle MD on 07/25/2024 3:36 PM Normal [facility] CBC AND AUTO DIFFon 07-24-20 24 ABSOLUTE BASOPHIL 0.1 X10E9/L Normal 0.0-0.2 [facility] Comment on above: Performed By: #### C ANTONIETTA HERRERA, 3040-3 #### [facility] ([id number]) [address] [place] [address] [place] [address] ABSOLUTE NEUTROPHIL 7.3 X10E9/L High 1.5-6.6 [facility] Comment on above: Performed By: #### Yousif HERRERA CMP, 30403 #### [facility] ([id number]) [address] [place] [address] 26849 Basophils/100 WBC (Bld) 1.0 % Normal [facility] Comment on above: Performed By: #### Yousif HERRERA CMP, 3039-11 #### [facility] ([id number]) [address] [place] [address] 95759 Eosinophils (Bld) [#/Vol] 0.3 10*3/uL Normal 0.0-0.4 [facility] Comment on above: Performed By: #### Yousif HERRERA CMP, 3039-11 #### [facility] ([id number]) [address] [place] [address] 74402 Eosinophils/100 WBC (Bld) 2.5 % Normal [facility] Comment on above: Performed By: #### Yousif HERRERA CMP, 3039-11 #### [facility] ([id number]) [address] [place] [address] 02861 Erythrocyte distribution width (RBC) [Ratio] 13.0 % Normal 11.5-15.0 [facility] Comment on above: Performed By: #### Yousif HERRERA CMP, 3 #### [facility] ([id number]) [address] [place] [address] 02808 Hematocrit (Bld) [Volume fraction] 47.6 % Normal 39-49 [facility] Comment on above: Performed By: #### Yousif HERRERA CMP, 3039-11 #### [facility] ([id number]) [address] [place] [address] 83734 Hemoglobin (Bld) [Mass/Vol] 16.2 g/dL Normal 13.0-17.0 [facility] Comment on above: Performed By: #### Yousif HERRERA CMP, 3 #### [facility] ([id number]) [address] [place] [address] 82543 Lymphocytes (Bld) [#/Vol] 2.1 10*3/uL Normal 1.0-3.5 [facility] Comment on above: Performed By: #### Yousif HERRERA CMP, 3039-11 #### [facility] ([id number]) [address] [place] [address] 86268 Lymphocytes/100 WBC (Bld) 19.2 % Normal [facility] Comment on above: Performed By: #### Yousif HERRERA CMP, 3039-11 #### [facility] ([id number]) [address] [place] [address] 17314 MCH (RBC) [Entitic mass] 29.4 pg Normal 27-34 [facility] Comment on above: Performed By: #### Yousif HERRERA CMP, 3039-11 #### [facility] ([id number]) [address] [place] [address] 46413 MCHC (RBC) [Mass/Vol] 34.0 g/dL Normal 32-36 [facility] Comment on above: Performed By: #### Yousif HERRERA CMP, 3039-11 #### [facility] ([id number]) [address] [place] [address] 21472 MCV (RBC) [Entitic vol] 86 fL Normal 80-100 [facility] Comment on above: Performed By: #### Yousif HERRERA CMP, 3039-11 #### [facility] ([id number]) [address] [place] [address] 51201 Monocytes (Bld) [#/Vol] 1.3 10*3/uL High 0-0.9 [facility] Comment on above: Performed By: #### Yousif HERRERA CMP, 3040-3 #### [facility] ([id number]) [address] [place] [address] 13347 Monocytes/100 WBC (Bld) 11.6 % Normal [facility] Comment on above: Performed By: #### C JAVIER, CMP, 3039-3 #### [facility] ([id number]) [address] [place] [address] 24358 Neutrophils/100 WBC (Bld) 65.7 % Normal [facility] Comment on above: Performed By: #### C JAVIER, CMP, 3 #### [facility] ([id number]) [address] [place] [address] 33471 Platelet mean volume (Bld) [Entitic vol] 8.4 fL Normal 7-12 [facility] Comment on above: Performed By: #### C JAVIER, CMP, 3 #### [facility] ([id number]) [address] [place] [address] 44935 Platelets (Bld) [#/Vol] 470 10*3/uL High 150-450 [facility] Comment on above: Performed By: #### Yousif HERRERA, CMP, 3039-3 #### [facility] ([id number]) [address] [place] [address] 11648 RBC COUNT 5.52 X10E12/L Normal 4.10-5.70 [facility] Comment on above: Performed By: #### C JAVIER, CMP, 3039-3 #### [facility] ([id number]) [address] [place] [address] 20948 WBC (Bld) [#/Vol] 11.1 10*3/uL High 4.0-11.0 [facility] Comment on above: Performed By: #### Yousif HERRERA, CMP, 3039-3 #### [facility] ([id number]) [address] [place] [address] [place] [address] COMPREHENSIVE METABOLIC PANE Brian 07-24-2024 Albumin [Mass/Vol] 4.3 g/dL Normal 3.2-5.3 [facility] Comment on above: Performed By: #### C ANTONIETTA HERRERA, 3039-3 #### [facility] ([id number]) [address] [place] [address] 07079 ALP [Catalytic activity/Vol] 63 U/L Normal 39-130 [facility] Comment on above: Performed By: #### C ANTONIETTA HERRERA, 3 #### [facility] ([id number]) [address] [place] [address] 03291 ALT [Catalytic activity/Vol] 25 U/L Normal 0-40 [facility] Comment on above: Performed By: #### Yousif HERRERA CMP, 3039-3 #### [facility] ([id number]) [address] [place] [address] 75759 Anion gap [Moles/Vol] 9 mmol/L Normal 5-15 [facility] Comment on above: Performed By: #### Yousif HERRERA CMP, 3 #### [facility] ([id number]) [address] [place] [address] 02353 AST [Catalytic activity/Vol] 23 U/L Normal 0-41 [facility] Comment on above: Performed By: #### Yousif HERRERA CMP, 3039-3 #### [facility] ([id number]) [address] [place] [address] 16072 Bilirubin [Mass/Vol] 1.4 mg/dL High 0.3-1.2 [facility] Comment on above: Performed By: #### Yousif HERRERA CMP, 3039-3 #### [facility] ([id number]) [address] [place] [address] 67828 Calcium [Mass/Vol] 10.1 mg/dL Normal 8.5-10.5 [facility] Comment on above: Performed By: #### C JAVIER [facility], 3039-3 #### [facility] ([id number]) [address] [place] [address] 33775 Chloride [Moles/Vol] 104 mmol/L Normal 98-109 [facility] Comment on above: Performed By: #### C ANTONIETTA HERRERA, 3039-3 #### [facility] ([id number]) [address] [place] [address] 79070 CO2 [Moles/Vol] 22 mmol/L Normal 22-32 [facility] Comment on above: Performed By: #### Yousif HERRERA [facility], 3039-3 #### [facility] ([id number]) [address] [place] [address] 77535 Creatinine [Mass/Vol] 1.05 mg/dL Normal 0.70-1.20 [facility] Comment on above: Result Comment: METH OD TRACEABLE TO IDMS STANDARD Performed By: #### Yousif HERRERA CMP, 3039-3 #### [facility] ([id number]) [address] [place] [address] 33643 GFR/1.73 sq M.predicted among non-blacks MDRD (S/P/Bld) [Vol rate/Area] 87 mL/min/{1.73_m2} Normal >59 [facility] Comment on above: Result Comment: Reported eGFR is based on the CKD-EPI 1 equation that does not use a race coefficient. Performed By: #### C ANTONIETTA HERRERA, 3039-3 #### [facility] ([id number]) [address] [place] [address] 55032 Glucose [Mass/Vol] 113 mg/dL High 65-99 [facility] Comment on above: Performed By: #### Yousif HERRERA CMP, 3039-3 #### [facility] ([id number]) [address] [place] [address] [id number] Potassium [Moles/Vol] 3.7 mmol/L Normal 3.5-5.0 [facility] Comment on above: Performed By: #### C [facility], 3040-3 #### [facility] ([id number]) [address] [place] [address] [id number] Protein [Mass/Vol] 7.9 g/dL Normal 6.0-8.0 [facility] Comment on above: Performed By: #### C [facility], 3040-3 #### [facility] ([id number]) [address] [place] [address] [id number] Sodium [Moles/Vol] 135 mmol/L Normal 134-146 [facility] Comment on above: Performed By: #### C [facility], 3040-3 #### [facility] ([id number]) [address] [place] [address] [id number] Urea nitrogen [Mass/Vol] 13 mg/dL Normal 5-23 [facility] Comment on above: Performed By: #### C [facility], [facility], 3040-[address] #### [facility] ([id number]) [address] [place] [id number] ABDOMEN AND PELVIS W CONT on [...] exclude pheochromocytoma. Recommend no further imaging evaluation. Hermilo NUNN, et al. Management of Incidental Adrenal Masses: A White Paper of the ACR Incidental Findings Committee. J Am Ag Radiol. 2017 Apr;14(8):5352-8514. THIS REPORT CONTAINS A SIGNIFICANT RESULT AND/OR RECOMMENDATION, WHICH REQUIRES THE ATTENTION OF THE LICENSED CAREGIVER RESPONSIBLE FOR THIS PATIENT. THEREFORE, I SPECIFICALLY DESIGNATED THIS REPORT TO BE TELEPHONED BY THE RADIOLOGY DEPARTMENT. FINDINGS WERE INSTRUCTED TO BE CALLED TO THE CLINICAL SERVICE ON 07/24/2024 4:17 PM Finalized by Daniel Mcallister on 07/24/2024 4:17 PM Normal [facility] LIPASEon 07-24-2024 Lipase [Catalytic activity/Vol] 22 U/L Normal 17-40 [facility] Comment on above: Performed By: #### C JAVIER [facility], 3040-[address] #### [facility] ([id number]) 715 [facility] [address] 9-10 Nerveson 07-17-2024 [facility]son 07-12-2024 Outside Records [id number]#1 .[facility] 07-03-2024 Patient Letter [id number]#1.0 [facility]- Nerveson [facility] Recordson 05-03-2024 Outside Records [id number]#1.0 [facility] 04-24-2024 Outside Records [id number]#1.0 [facility] Rad - Other Radiology Report on 04-24-2024 Rad - Other Radiology Report [id number]#1.0 [facility] 04-11-2024 Patient Letter [id number]#1.0 [facility] 04-05-2024 Outside Records [id number]#1.00 [facility] Normal [facility] Outside Records [id number]#1.00 [facility] Rad - Other Radiology Report on 04-02-2024 Rad - Other Radiology Report [id number]#1.0 [facility] Outside Recordson 03-02-2024 Outside Records [id number]#1.00O [facility] LUMBAR SPINE 6 OR MORE VWSon 01-14-2022 LUMBAR SPINE 6 OR MORE VWS [facility] Department of Radiology [address] [place] [address] ======== Patient Name: DION HALE [...] , Ordering Provider - A JER LOPEZ TRACER BULLET CHARGING MACHINE OPERATOR , Exam: LUMBAR SPINE 6 OR MORE S ======== LUMBAR SPINE 6 OR MORE VWS [...] radiographically. Electronically signed: Rashad York. Transcribed by: [email or web address], User Resident: Electronically Signed by: RASHAD YORK @ 01/15/2022 11:40 AM Normal [facility] Comment on above: Order Comment: , ap, lat, flex, ex, obliques, r/o instability or pars defect , Views (X-RAY, LUMBAR SPINE): AP, Lateral, L5-S1 Spot, Obliques, Flexion, Extension , ap, lat, flex, ex, obliques, r/o instability or pars defect , Views (X-RAY, LUMBAR SPINE): AP, Lateral, L5-S1 Spot, Obliques, Flexion, Extension , , , Ordering Provider - Sherice LOPEZ TRACER BULLET CHARGING MACHINE OPERATOR , Vital Signs Date Time Vital Sign Value Performing Clinician Facility 07-19-2024 10:32-0400 Body height 175.3 cm Comfort [employer] Work Phone: [facility] 07-19-2024 10:32-0400 Body mass index (BMI) [Ratio] 45.63 kg/m2 [employer] Work Phone: [facility] 07-19-2024 10:32-0400 Body weight 140.16 kg Comfort Souza PA Work Phone: [facility] [email or web address] 07-19-2024 10:32-0400 Diastolic blood pressure 86 mm[Hg] Comfort Souza PA Work Phone: [facility] [email or web address] 07-19-2024 10:32-0400 Systolic blood pressure 130 mm[Hg] Comfort Souza PA Work Phone: [facility] [email or web address] 09-23-2023 10:05-0500 Body height Abbey Nietomond Other [employer] Other 09-23-2023 10:05-0500 Body mass index (BMI) [Ratio] 44.21 kg/m2 Abbey Sharda Other [employer] Other 09-23-2023 10:05-0500 Body temperature 98.6 [degF] Abbey Sharda Other [employer] Other 09-23-2023 10:05-0500 Body weight 135.81 kg Abbey Nietomond Other [employer] Other 09-23-2023 10:05-0500 Diastolic blood pressure 82 mm[Hg] Abbey Sharda Other [employer] Other 09-23-2023 10:05-0500 Respiratory rate 18 /min Abbey Sharda Other [employer] Other 09-23-2023 10:05-0500 SaO2% (BldA) [Mass fraction] 95 % Abbey Sharda Other [employer] Other 09-23-2023 10:05-0500 Systolic blood pressure 152 mm[Hg] Abbey Robin Other [employer] Other 04-15-2023 10:30-0400 Body height Marisol Ruelasley Other [employer] Other 04-15-2023 10:30-0400 Body mass index (BMI) [Ratio] 45.33 kg/m2 Marisol Nathalie Other [employer] Other 04-15-2023 10:30-0400 Body temperature 97.6 [degF] Marisol Nathalie Other [employer] Other 04-15-2023 10:30-0400 Body weight 139.26 kg Marisol Nathalie Other [employer] Other 04-15-2023 10:30-0400 Diastolic blood pressure 80 mm[Hg] Marisol Zelaya Other [employer] Other 04-15-2023 10:30-0400 Respiratory rate 18 /min Marisol Nathalie Other [employer] Other 04-15-2023 10:30-0400 SaO2% (BldA) [Mass fraction] 98 % Marisol Nathalie Other [employer] Other 04-15-2023 10:30-0400 Systolic blood pressure 125 mm[Hg] Marisolloc Zelaya Other [employer] Other Encounters Encounter Date Encounter Type Care Provider Facility Start: 02-04-2025 ambulatory DO MILAN Wilcox lity:[facility] Start: 01-03-2025 End: 01-03-2025 Refill Comfort BRADSHAW Work Phone: [facility] Comment on above: Chronic bilateral lo w back pain, unspecified whether sciatica present Start: 12-03-2024 End: 12-03-2024 Bamboo flowsheet Comfort Lowe PA Work Phone: [facility] Start: 12-03-2024 End: 12-03-2024 Bamboo flowsheet Comfort Lowe PA Work Phone: [facility] [place] Start: 12-03-2024 End: 12-03-2024 ambulatory COMFORT LOWE Not Available Start: 11-28-2024 End: 12-03-2024 Telephone encounter Carina Eid OT Work Phone: [facility] Comment on above: re: referral for FCE ; re: FCE Start: 11-15-2024 End: 11-15-2024 ambulatory DO MILAN [facility] Facility:[facility] Start: 11-01-2024 End: 11-01-2024 Refill Nghia Patrick MD Work Phone: [facility] Comment on above: Low back pain, unspe cified back pain laterality, unspecified chronicity, unspecified whether sciatica present Start: 10-02-2024 ambulatory MILAN Medina [place] Facilit y:[facility] Start: 08-09-2024 End: 08-09-2024 ambulatory MILAN Medina [place] Facility:[facility] Start: 07-24-2024 End: 07-27-2024 Evaluation and management of inpatient MILAN Medina [facility] Start: 07-19-2024 End: 07-19-2024 Office outpatient visit 25 minutes Comfort Lowe PA Work Phone: [facility] [address] [facility] Comment on above: Carpal tunnel syndro me on both sides (Primary Dx); Chronic bilateral low back pain, unspecified whether sciatica present; Lumbar disc herniation Start: 07-19-2024 End: 07-19-2024 ambulatory COMFORT LOWE Not Available Start: 07-17-2024 End: 07-17-2024 Olga Patrick MD Work Phone: [facility] [address] [facility] Start: 07-17-2024 End: 07-17-2024 Olga Patrick MD Work Phone: [facility] Start: 07-17-2024 End: 07-17-2024 ambulatory NGHIA PATRICK Not Available Start: 07-17-2024 End: 07-17-2024 Patient encounter procedure Nghia Patrick MD Work Phone: [facility] Comment on above: Lumbar radiculopathy (Primary Dx); Low back pain, unspecified back pain laterality, unspecified chronicity, unspecified whether sciatica present Start: 07-02-2024 End: 07-02-2024 ambulatory DO MILAN P HOUSE Facility:[facility] Start: 06-28-2024 ambulatory DO MILAN P HOUSE Faci lity:[facility] Start: 05-24-2024 End: 05-24-2024 Bamboo flowsheet Nghia Patrick MD Work Phone: [facility] Start: 05-24-2024 End: 05-24-2024 Bamboo flowsheet Nghia Patrick MD Work Phone: [facility] Start: 05-24-2024 End: 05-24-2024 Patient encounter procedure Nghia Patrick MD Work Phone: [facility] Comment on above: Carpal tunnel syndro me on both sides (Primary Dx) Start: 05-24-2024 End: 05-24-2024 ambulatory NGHIA PATRICK Not Available Start: 04-18-2024 End: 04-18-2024 ambulatory DO MILAN P HOUSE Facility:[facility] Start: 04-18-2024 End: 04-18-2024 ambulatory COMFORT SOUZA Not Available Start: 04-09-2024 End: 04-09-2024 ambulatory DO MILAN P HOUSE Facility:[facility] Start: 02-22-2024 End: 02-22-2024 ambulatory MILAN P HOUSE Facility:[facility] Start: 09-23-2023 End: 09-23-2023 ambulatory Abbey Robin Other [employer] Other Start: 09-23-2023 Office outpatient vi sit 15 minutes Abbey Robin [facility] Start: 04-15-2023 End: 04-15-2023 ambulatory Marisol Nathalie Other [facility] [employer] Other Start: 04-15-2023 Office outpatient ne w [...] Treatment Date Care Activity Detail Author Start: 04-04-2025 End: 04-04-2025 Patient encounter procedure 04/04/2025 11:00 AM EDT Office Visit [facility] [address] [place] [phone] Comfort Souza PA [address] [place] [address] [facility] Start: 12-03-2024 End: 12-03-2024 Patient encounter procedure [facility] Comment on above: Arrived Start: 10-10-2024 End: 10-10-2024 Patient encounter procedure 10/10/2024 1:40 PM EST Office Visit [facility] [address] [facility] [place] [phone] Comfort Souza PA [address] [place], [place] [id number] [facility] [place] [facility] Start: 07-19-2024 End: 07-19-2024 Patient encounter procedure 07/19/2024 10:40 AM EDT Office Visit [facility] [place] [address] [facility] [place] [phone] Comfort Souza PA [address] [place] [address] [facility] [address] [facility] Start: 06-19-2024 End: 06-19-2024 Patient encounter procedure 06/19/2024 1:00 PM EDT Office Visit [facility] [place] [address] [facility] [address] [place] [phone] Comfort Souza PA [address] [place] [address] [facility] [place] [facility] Start: 06-13-2024 End: 06-13-2024 Patient encounter procedure 06/13/2024 1:00 PM EDT Procedure Visit [facility] [address] [place] [phone] Nghia Patrick MD [address] [place] [id number] [facility] Start: 05-24-2024 End: 05-24-2024 Patient encounter procedure 05/24/2024 8:30 AM EDT Procedure Visit [facility] [place] [address] [facility] [place] [id number] Nghia Patrick MD [address] [place] [id number] Arrived [facility] [place] [facility] Comment on above: Arrived EMG 2 Extremities EMG 2 Extremit ies Neurology Routine Carpal tunnel syndrome on both sides Ordered: 05/24/2024 [facility] Work Phone: Comment on above: Ordered: 05/24/2024 Payers Date Payer Category Payer Medicare [facility] E MEDICARE UHC DUAL COMPLETE [id number] 2023-Present [address] [place] [address] [id number] 2023 Medicare (Managed Care) [facility] [id number] 2021 Medicare [id number] 2.16.840.1.134714.19 1974 Unknown [id number] 2.16.840.1.118319.3.579.2. 593 1974 Unknown [id number] 2.16.840.1.286830.3.579.2. 593 1974 Unknown [id number] 2.16.840.1.206717.3.579.2. 593 1974 Unknown [id number] 2.16.840.1.706742.3.579.2. 593 1974 Unknown [id number] 2.16.840.1.153774.3.579.2. 593 1974 Unknown [id number] 2.16.840.1.041527.3.579.2. 593 1974 Unknown [id number] 2.16.840.1.020596.3.579.2. 593 1974 Unknown [id number] 2.16.840.1.115658.3.579.2. 593 1974 Unknown [id number] 2.16.840.1.762998.3.579.2. 593 1974 Unknown [id number] 2.16.840.1.787128.3.579.2. 593 1974 Unknown [id number] 2.16.840.1.274217.3.579.2. 593 1974 Unknown [id number] 2.16.840.1.851656.3.579.2. 593 1974 Unknown [id number] 2.16.840.1.210587.3.579.2. 593 1974 Unknown [id number] 2.16.840.1.939828.3.579.2. 1286 1974 Unknown [id number] 2.16.840.1.492174.3.579.2. 1259 1974 Unknown [id number] 2.16.840.1.626101.3.579.2. 1259 1974 Unknown [id number] 2.16.840.1.727582.3.579.2. 9 1974 Unknown [id number] 2.16.840.1.932077.3.579.2. 9 1974 Unknown [id number] 2.16.840.1.370157.3.579.2. 9 1974 Unknown [id number] 2.16.840.1.024381.3.579.2. 1974 Unknown [id number] 2.16.840.1.063183.3.579.2. 1974 Unknown [id number] 2.16.840.1.798889.3.579.2. 1974 Unknown [id number] 2.16.840.1.245758.3.579.2. 1974 Unknown [id number] 2.16.840.1.514092.3.579.2. 1974 Unknown [id number] 2.16.840.1.462607.3.579.2. 1974 Unknown [id number] 2.16.840.1.216484.3.579.2. 1974 Unknown [id number] 2.16.840.1.530540.3.579.2. 718 1960 Medicare [id number] Unknown [id number] Social History Date Type Detail Facility Unknown if ever smoked [employer] Other Start: 04-11-2024 End: 12-03-2024 Sex Assigned At [employer] Other Start: 04-11-2024 Tobacco smoking stat [facility] Never smoked tobacco [facility] Start: 04-11-2024 Tobacco use and exposure Smokeless tobacco non-user [facility] Start: 04-11-2024 End: 12-03-2024 Alcoholic beverage intake Lifetime non-drinker (finding) [facility] Start: 04-11-2024 End: 12-03-2024 History of Social function [facility] Start: 1975 Sex assigned at Not on file N [facility] Clinical Notes 04-15-2022 to 02-04-2025 Telephone Encounter - Colby Marc MA - 01/03/2025 11:16 AM EDTTelephone Encounter - Colby Marc MA - 01/03/2025 11:16 AM EDTTelephone Encounter - Patrizia Buenrostro - 12/03/2024 12:18 PM EDT Note Date & Type Note Facility 02-04-2025 Note Entered by DYLAN NAILS DO on February 04, 2025 10:00:28 EDT From: MILAN NAILS DO To: [facility] Sent: 02/04/2025 10:00:28 EDT Subject: Medication Management Submitted: Complete:DULoxetine (DULoxetine 60 mg oral delayed release capsule) Signed by MILAN NAILS DO 02/04/2025 10:00:00 EDT Approved with modifications: DULoxetine (duloxetine 60 mg capsule,delayed release) TAKE 1 CAPSULE BY MOUTH DAILY Qty: 30 cap(s) Days Supply: 30 Refills: 5 Substitutions Allowed Route To Pharmacy - [facility] -------- From: [facility] To: MILAN NAILS DO Sent: February 04, 2025 8:04:56 AM CDT Subject: Medication Management Due: February 05, 2025 12:03:42 AM CDT On Hold Pending Signature Drug: DULoxetine (DULoxetine 60 mg oral delayed release capsule), TAKE 1 CAPSULE BY MOUTH DAILY Quantity: 30 cap(s) Days Supply: 30 Refills: 11 Substitutions Allowed Notes from Pharmacy: Dispensed Drug: DULoxetine (DULoxetine 60 mg oral delayed release capsule), TAKE 1 CAPSULE BY MOUTH DAILY Quantity: 30 cap(s) Days Supply: 30 Refills: 11 Substitutions Allowed Notes from Pharmacy: -------- [facility] 01-03-2025 Note Entered by DYLAN NAILS DO on January 03, 2025 13:01:51 EDT From: MILAN NAILS DO To: [facility] Sent: 01/03/2025 13:01:51 EDT Subject: Medication Management Submitted: Complete:omeprazole (omeprazole 20 mg oral delayed release capsule) Signed by MILAN NAILS DO 01/03/2025 13:01:00 EDT Approved with modifications: omeprazole (omeprazole 20 mg capsule,delayed release) TAKE 1 CAPSULE BY MOUTH DAILY Qty: 30 cap(s) Days Supply: 30 Refills: 5 Substitutions Allowed Route To Pharmacy - [facility] -------- From: [facility] To: MILAN NAILS DO Sent: January 03, 2025 10:16:48 AM CDT Subject: Medication Management Due: January 04, 2025 12:20:13 AM CDT On Hold Pending Signature Drug: omeprazole (omeprazole 20 mg oral delayed release capsule), TAKE 1 CAPSULE BY MOUTH DAILY Quantity: 30 cap(s) Days Supply: 30 Refills: 11 Substitutions Allowed Notes from Pharmacy: Dispensed Drug: omeprazole (omeprazole 20 mg oral delayed release capsule), TAKE 1 CAPSULE BY MOUTH DAILY Quantity: 30 cap(s) Days Supply: 30 Refills: 11 Substitutions Allowed Notes from Pharmacy: -------- [facility] 01-03-2025 Telephone encount er Note 12/03/2024 Continue baclofen 10mg PO up to 4 times daily for muscle spasm. Will not allow me to select QID. [facility] 01-03-2025 Miscellaneous Notes Formattin g of this note might be different from the original. 12/03/2024 Continue baclofen 10mg PO up to 4 times daily for muscle spasm. Will not allow me to select QID. documented in this encounter [facility] 12-03-2024 Telephone encount er Note Contacted and he noted the FCE is not needed. He said for the update of disability this is not required. I let him know not to hesitate if we'd be needed. [facility] 12-03-2024 Miscellaneous Notes Formattin g of this note might be different from the original. Contacted and he noted the FCE is not needed. He said for the update of disability this is not required. I let him know not to hesitate if we'd be needed. Tried to contact re: referral for FCE. Requested a call back to verify if this would be going thru C-9, covered; if not then self-pay @ $505.00. documented in this encounter [facility] 11-28-2024 Telephone encount er Note Tried to contact re: referral for FCE. Requested a call back to verify if this would be going thru C-9, covered; if not then self-pay @ $505.00. [facility] 11-15-2024 Note PROCEDURE: CT Sinus w/o Contrast COMPARISON: None. HISTORY: Headache, unspecified:Chronic sinusitis, unspecified TECHNIQUE: Axial and Coronal CT images were created with IV contrast. Dose reduction techniques were achieved by using automated exposure control and/or adjustment of mA and/or kV according to patient size and/or use of iterative reconstruction technique. FINDINGS: MAXILLARY SINUSES: No air-fluid levels. 1.5 cm area of soft tissue attenuation inferior right maxillary sinus. 1.5 cm area of lobular soft tissue medial left maxillary sinus. The ostiomeatal units are patent. ETHMOID SINUSES: No significant mucosal thickening or fluid. Fovea ethmoidal and lamina papyracea are symmetric and intact. SPHENOID SINUSES:No significant mucosal thickening or fluid. Sphenoethmoidal recesses are patent. No bony dehiscence. FRONTAL SINUSES: No significant mucosal thickening or fluid. Frontal recesses are patent. NASAL FOSSA: 2 mm rightward deviation of the nasal septum. No tita bullosa or paradoxical turbinates are identified. OTHER: Negative. Limited views of the skull base and orbits are unremarkable. IMPRESSION: Bilateral maxillary sinus mucoperiosteal thickening/mucous retention cysts Final Dictated by: Christopher Manjarrez MD Dictated DT/TM: 11/16/24 9:23 Signed (Electronic Signature): Christopher Manjarrez MD 11/16/24 9:26 am Technologist: [facility] 11-12-2024 Note Entered by DYLAN NAILS DO on November 12, 2024 07:31:34 EST From: MILAN NAILS DO To: [facility] Sent: 11/12/2024 07:31:34 EST Subject: Medication Management Submitted: Complete:lisinopril (lisinopril 20 mg oral tablet) Signed by MILAN NAILS DO 11/12/2024 07:31:00 EST Approved with modifications: lisinopril (lisinopril 20 mg tablet) TAKE 1 TABLET BY MOUTH DAILY Qty: 90 tab(s) Days Supply: 90 Refills: 1 Substitutions Allowed Route To Pharmacy - [facility] -------- From: [facility] To: MILAN NAILS DO Sent: November 09, 2024 6:21:57 PM SPEECH PATHOLOGIST Subject: Medication Management Due: November 10, 2024 12:08:02 AM SPEECH PATHOLOGIST On Hold Pending Signature Drug: lisinopril (lisinopril 20 mg oral tablet), TAKE 1 TABLET BY MOUTH DAILY Quantity: 90 tab(s) Days Supply: 90 Refills: 5 Substitutions Allowed Notes from Pharmacy: Dispensed Drug: lisinopril (lisinopril 20 mg oral tablet), TAKE 1 TABLET BY MOUTH DAILY Quantity: 90 tab(s) Days Supply: 90 Refills: 5 Substitutions Allowed Notes from Pharmacy: -------- [facility] 10-26-2024 Note Entered by DYLAN NAILS DO on October 26, 2024 14:14:29 EST From: MILAN NAILS DO To: [facility] Sent: 10/26/2024 14:14:29 EST Subject: Medication Management Submitted: Complete:fexofenadine (fexofenadine 180 mg oral tablet) Signed by MILAN NAILS DO 10/26/2024 14:14:00 EST Approved with modifications: fexofenadine (fexofenadine 180 mg tablet) TAKE 1 TABLET BY MOUTH EVERY DAY Qty: 30 tab(s) Days Supply: 30 Refills: 5 Substitutions Allowed Route To Pharmacy - [facility] -------- From: [facility] To: MILAN NAILS DO Sent: October 26, 2024 12:55:48 PM SPEECH PATHOLOGIST Subject: Medication Management Due: October 27, 2024 12:02:15 AM SPEECH PATHOLOGIST On Hold Pending Signature Drug: fexofenadine (fexofenadine 180 mg oral tablet), TAKE 1 TABLET BY MOUTH DAILY Quantity: 30 tab(s) Days Supply: 30 Refills: 5 Substitutions Allowed Notes from Pharmacy: Dispensed Drug: fexofenadine (fexofenadine 180 mg oral tablet), TAKE 1 TABLET BY MOUTH EVERY DAY Quantity: 30 tab(s) Days Supply: 30 Refills: 5 Substitutions Allowed Notes from Pharmacy: -------- [facility] 08-27-2024 Note Entered by DYLAN NAILS DO on August 27, 2024 16:27:03 EST From: MILAN NAILS DO To: [facility] Sent: 08/27/2024 16:27:03 EST Subject: Medication [...] 5 Substitutions Allowed Route To Pharmacy - [facility] Approved with modifications: propranolol (propranolol ER 80 mg capsule,24 hr,extended release) TAKE 1 CAPSULE BY MOUTH DAILY Qty: 30 cap(s) Days Supply: 30 Refills: 5 Substitutions Allowed Route To Pharmacy - [facility] Approved with modifications: SUMAtriptan (sumatriptan 100 mg tablet) TAKE 1 TABLET BY MOUTH DAILY Qty: 12 EA Days Supply: 12 Refills: 5 Substitutions Allowed Route To Pharmacy - [facility] -------- From: [facility] To: MILAN NAILS DO Sent: August 27, 2024 2:39:32 PM SPEECH PATHOLOGIST Subject: Medication Management Due: August 28, 2024 12:06:32 AM SPEECH PATHOLOGIST On Hold Pending Signature Drug: albuterol (Albuterol [...] Refills: 5 Substitutions Allowed Notes from Pharmacy: -------- [facility] 07-17-2024 History of Presen t illness Narrative Images from the original note were not included. Reason for Appointment: EMG Patient: Dion Hale : 1975 EMG Computer: [employer] Referring Physician: Dr. Nghia Patrick EMG: BLE photograph inspector: Danya Ritter [facility] Office Location: [place] Reason for EMG: c/o hypersensitivty to the bottoms of the feet. Paresthesia in the legs. R>L. No Hx of DM, not taking blood thinners. Comments: Procedure explained to the patient who expressed understanding. documented in this encounter [facility] 05-24-2024 History of Presen t illness Narrative Images from the original note were not included. Reason for Appointment: EMG Patient: Dion Hale : 1975 EMG Computer: [employer] Referring Physician: Comfort Souza PA-C EMG: ASHLEY photograph inspector: Danya Ritter CMA Office Location: [place] Reason for EMG: c/o burning, numbness, tingling in the hands. R>L. Sometimes has a hard time closing his hand. No Hx of DM, not taking blood thinners. Comments: Procedure explained to the patient who expressed understanding. documented in this encounter [facility] 05-22-2024 Note Entered by DYLAN NAILS DO on May 22, 2024 08:21:07 EDT From: MILAN NAILS DO To: [facility] Sent: 05/22/2024 08:21:07 EDT Subject: Medication Management Submitted: Complete:SUMAtriptan (SUMAtriptan 100 mg oral tablet) Signed by MILAN NAILS DO 05/22/2024 08:21:00 EDT Approved with modifications: SUMAtriptan (sumatriptan 100 mg tablet) TAKE 1 TABLET BY MOUTH DAILY Qty: 12 EA Days Supply: 12 Refills: 2 Substitutions Allowed Route To Pharmacy - [facility] -------- From: [facility] To: MILAN NAILS DO Sent: May [...] Refills: 2 Substitutions Allowed Notes from Pharmacy: -------- [facility] 05-02-2024 Note Entered by DYLAN NAILS DO on May 02, 2024 11:28:48 EDT From: MILAN NAILS DO To: [facility] Sent: 05/02/2024 11:28:48 EDT Subject: Medication Management Submitted: Complete:fexofenadine (fexofenadine 180 mg oral tablet) Signed by MILAN NAILS DO 05/02/2024 11:28:00 EDT Approved with modifications: fexofenadine (fexofenadine 180 mg tablet) TAKE 1 TABLET BY MOUTH DAILY Qty: 30 tab(s) Days Supply: 30 Refills: 5 Substitutions Allowed Route To Pharmacy - [facility] -------- From: [facility] To: MILAN NAILS DO Sent: May [...] Refills: 5 Substitutions Allowed Notes from Pharmacy: -------- [facility] 02-22-2024 Note Entered by DYLAN NAILS DO on February 22, 2024 11:51:43 EDT From: MILAN NAILS DO To: [facility] Sent: 02/22/2024 11:51:43 EDT Subject: Medication [...] 25 Refills: 5 Substitutions Allowed Route To [facility] Approved SUMAtriptan (sumatriptan 100 mg tablet) TAKE 1 TABLET BY MOUTH DAILY Qty: 12 EA Days Supply: 12 Refills: 2 Substitutions Allowed Route To [facility] Approved with modifications: propranolol (propranolol ER 80 mg capsule,24 hr,extended release) TAKE 1 CAPSULE BY MOUTH DAILY Qty: 30 cap(s) Days Supply: 30 Refills: 5 Substitutions Allowed Route To [facility] Patient matched by MILAN NAILS DO on 02/22/2024 11:50:58 EDT -------- From: [facility] To: MILAN NAILS DO Sent: February [...] Refills: 2 Substitutions Allowed Notes from Pharmacy: -------- [facility] 09-23-2023 Evaluation note Encounter Date [...] 3 days Sep, Bronchitis (ICD-10 - J40) [facility] 07-28-2023 Evaluation note* Encounter Date Diagnosis [...] is not contagious from itself or drainage. [facility] 05-30-2023 NoteCONSULTATION CONSULTATION DATE: 02/15/2023 TO: [...] the lower extremities. MEDICATION: Current medication includes Matamoras 5 mg t.i.d. p.r.n. Patient reports it [...] our patients to inform us about any rnms-ais-peznrvf medications or herbal remedies/nutritional supplements/alternative remedies. 2. [...] treatment options with their primary care provider.[id number] Note CONSULTATION CONSULTATION DATE: 01/06/2023 TO: Dr. [...] our patients to inform us about any kruh-odh-qsdcbyd medications or herbal remedies/nutritional supplements/alternative remedies. 2. [...] treatment options with their primary care provider.[facility] [id number] Note CONSULTATION PROCEDURE DATE: 10/06/2022 PREOPERATIVE DIAGNOSIS: [...] will be followed up in the office.[facility] [id number] NoteCONSULTATION CONSULTATION DATE: 08/26/2022 HISTORY OF PRESENT [...] his muscle relaxer. Our clinic prescribes his Matamoras 5/325 b.i.d. and diclofenac 75 mg b.i.d. [...] normally does. All questions were answered today.[facility] [id number] NoteCONSULTATION CONSULTATION DATE: 07/22/2022 HISTORY OF PRESENT [...] He has seen Neurosurgery at [facility] in the past, which they feel, at this time, he is not a surgical candidate and to be managed by Pain Management. He current does see Dr. Patrick at [facility] as well. Activities that aggravate his pain are pulling, sitting, walking, lying down and bending. He will alternate heat and ice which he feels does not make a significant difference. Medications include trazodone 50 mg q.h.s., tizanidine 4 mg b.i.d., Lyrica 50 mg t.i.d., diclofenac 75 mg b.i.d. and Matamoras 5/325 b.i.d. He does attend pool therapy at the [facility] 2-3 times a week, which [...] be followed up in the clinic thereafter.[facility] 04-22-2022 NoteCONSULTATION PROCEDURE DATE: 04/22/2022 [...] will be followed up in the office.[facility] [id number] NoteCONSULTATION CONSULTATION DATE: 04/15/2022 This is a [...] mg b.i.d., Lyrica 50 mg b.i.d. and Matamoras 5/325 b.i.d. 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 [facility] Diagnosis Carpal tunnel syndrome on both sides- Primary Carpal tunnel syndrome documented [facility]* Diagnosis Low back pain, unspecified back pain laterality, unspecified chronicity, unspecified whether sciatica present [facility] Diagnosis Chronic bilateral low back pain, unspecified whether sciatica present [facility] this [facility] N[facility]ative - Reported* Type Description Date Medical History HTN (hypertension) Medical History GERD (gastroesophageal reflux di sease) Medical History Chronic pain Medical History Anxiety Surgical History tonsillectomy and adenoidectomy Surgical History ablasion [facility] Other History general Narrative - Reported* Type Description Date Medical History HTN (hypertension) Medical History GERD (gastroesophageal reflux di sease) Medical History Chronic pain Medical History Anxiety Surgical History tonsillectomy and adenoidectomy Surgical History ablasion Surgical History nerve block Surgical History epidural [facility] [employer] Other Summary Purpose Family History No Family [...] section and content) DATE CREATED AUTHOR 03/09/2018 [facility] DATE CREATED AUTHOR AUTHOR'S ORGANIZ ATION 01/19/2022 [facility] DATE CREATED AUTHOR AUTHOR'S ORGANIZ ATION 02/25/2023 [facility] DATE CREATED AUTHOR AUTHOR'S ORGANIZ ATION 07/27/2024 [facility] DATE CREATED AUTHOR AUTHOR'S ORGANIZ ATION 12/05/2024 [facility] EPIC DATE CREATED AUTHOR AUTHOR'S ORGANIZ ATION 02/04/2025 [facility] REASON FOR VISIT (unrecogniz ed section and content) Reason Comments Back Pain Numbness Reason Comments Med Refill Reason Onset Date Comments re: referral for FCE 11/28/2024 re: FCE 12/03/2024 Care Teams (unrecognized sec tion and content) Adult And Pediatric Neurologist Relationship Specialty Start Date End Date Milan Nails MD [address] [place] [address] PCP - General Family Medicine 12/08/23 Adult And Pediatric Neurologist Relationship Specialty Start Date End Date Milan Nails MD [address] [place] [address] PCP - General Family Medicine 12/08/23 Adult And Pediatric Neurologist Relationship Specialty Start Date End Date Milan Nails MD [address] [place] [address] PCP - General Family Medicine 12/08/23 Comfort Souza PA [address] [place], [place] [id number] Physician Signal Operator Technical Neurology 07/19/24 Nghia Patrick MD [address] [place], [place] [id number] Referring Physician Neurology 07/19/24 Adult And Pediatric Neurologist Relationship Specialty Start Date End Date Milan Nails MD [address] [place] [address] PCP - General Family Medicine 12/08/23 Adult And Pediatric Neurologist Relationship Specialty Start Date End Date Milan Nails MD [address] [place] [address] PCP - General Family Medicine 12/08/23 Adult And Pediatric Neurologist Relationship Specialty Start Date End Date Milan Nails MD [address] [place] [facility] [address] PCP - General Family Medicine 12/08/23 Comfort Souza PA [address] [place], [place] [id number] Physician Signal Operator Technical Neurology 07/19/24 Nghia Patrick MD [address] [place] [address] Referring Physician Neurology 07/19/24 Adult And Pediatric Neurologist Relationship Specialty Start Date End Date Milan Nails MD [address] [place] [place] [address] PCP - General Family Medicine 12/08/23 Comfort Souza PA [address] [place] [address] Physician Signal Operator Technical Neurology 07/19/24 Nghia Patrick MD [address] [place] [address] Referring Physician Neurology 07/19/24 Adult And Pediatric Neurologist Relationship Specialty Start Date End Date Milan Nails MD [address] [place] [facility] [address] PCP - General Family Medicine 12/08/23 Comfort Souza PA [address] [place] [address] Physician Signal Operator Technical Neurology 07/19/24 Nghia Patrick MD [address] [place] [address] Referring Physician Neurology 07/19/24 Adult And Pediatric Neurologist Relationship Specialty Start Date End Date Milan Nails MD [address] [place] [facility] [address] PCP - General Family Medicine 12/08/23 Comfort Souza PA [address] [place] [address] Physician Signal Operator Technical Neurology 07/19/24 Nghia Patrick MD [address] [place] [address] Referring Physician Neurology 07/19/24 FOR RECORDS PERTAINING [...] BE BASED ON THE PRIMARY CLINICAL RECORDS. [employer] [facility]. provides no warranty or guarantee of the accuracy or completeness of information in this document.
--- OUTSIDE RECORDS SUMMARY | 2025-02-06 07:45 | XMS_ITS | Clinical Summary ---
Author Organization [facility] Address [address] [place] [address] Care Team Providers Care Dairy And Food Laboratory Assistant Name Role Phone Unavailable Primary Care Provider Unavailabl e Allergies No known active allergies Medications fexofenadine (ZACKERY) 180 MG tablet Take 1 tablet by mouth daily. 90 tablet 3 11/03/2011 Active Multiple Vitamin (MULTI-VITAMIN DAILY PO) Take 1 tablet by mouth daily. Active lisinopril (PRINIVIL;ZESTR IL) 40 MG tabletIndicatio ns:Hypertension Take 1 tablet by mouth daily. 90 tablet 1 11/14/2012 Active omeprazole (PRILOSEC) 20 MG capsuleIndicati ons:Hypertensio n Take 1 capsule by mouth Daily. 180 capsule 4 11/14/2012 Active DULoxetine (CYMBALTA) 60 MG extended release capsule Take 60 mg by mouth daily Active gabapentin (NEURONTIN) 600 MG tablet Take 700 mg by mouth 3 times daily. Active tiZANidine (ZANAFLEX) 2 MG tablet Take 2 mg by mouth every 6 hours as needed Active meloxicam (MOBIC) 15 MG tablet Take 15 mg by mouth daily Active DULoxetine (CYMBALTA) 30 MG extended release capsule Take 30 mg by mouth daily Active Active Problems Problem Noted Date Diagnosed Date Hypertension Hyperlipidemia GERD (gastroesophageal reflux disease) Immunizations Immunization Administration Dates Next Due Influenza 11/03/2011 Family History Medical History Relation Name Comments Arthritis Mother RA Diabetes Mother High Blood Pressure Mother Relation Name Status Comments Father Alive Mother Alive Social History Tobacco Use Types Packs/Day Years Used Date Smoking Tobacco: Former Smokeless Tobacco: Never Alcohol Use Standard Drinks/Week Comments Yes 0 (1 standard drink = 0.6 oz pur e alcohol) socially Sex and Gender Information Value Date Recorded Sex Assigned at Not on file Legal Sex Male 5:36 PM EST Gender Identity Not on file Sexual Orientation Not on file Last Filed Vital Signs Vital Sign Reading Time Taken Comments Blood Pressure 152/104 11/14/2012 9:46 AM EST Pulse 101 11/14/2012 9:46 AM EST Temperature 36.2 C (97.2 F) 06/27/2019 1:17 PM EDT Respiratory Rate 20 11/14/2012 9:46 AM EST Oxygen Saturation - - Inhaled Oxygen Concentration - - Weight 124.7 kg (275 lb) 06/27/2019 1:17 PM EDT Height 175.3 cm (5' 9 ) 06/27/2019 1:17 PM EDT Body Mass Index 40.61 06/27/2019 1:17 PM EDT Plan of Treatment Not on file Insurance [facility] Member Subscriber Plan / Payer (Ef fective 2024-Present) Name:Riccardo Hale Relation to Subscriber:Self Name:Riccardo Hale Payer ID:Not on file Type:Not on file Address: [place] [id number] [facility]
--- OUTSIDE RECORDS SUMMARY | 2025-02-06 07:46 | XMS_ITS | Clinical Summary ---
Author Organization [facility] Address [address] [place] [address] Care Team Providers Care Certified Forklift Operator Name Role Phone Unavailable Primary Care Provider Unavailabl e Social History Tobacco Use Types Packs/Day Years Used Date Smoking Tobacco: Never Assessed [place] Safety & Environment Answer Date Rec orded Fear of Current or Ex-Partner Not on file Emotionally Abused Not on file 11/10/2023 Physically Abused Not on file 11/10/2023 Sexually Abused Not on file 11/10/2023 Physically or Sexually Abused Not on file Sex and Gender Information Value Date Recorded Sex Assigned at Not on file Gender Identity Not on file Sexual Orientation Not on file Last Filed Vital Signs Vital Sign Reading Time Taken Comments Blood Pressure 154/95 01/14/2022 10:47 AM EDT Pulse 98 01/14/2022 10:47 AM EDT Temperature 37 C (98.6 F) 01/14/2022 10:47 AM EDT Respiratory Rate - - Oxygen Saturation - - Inhaled Oxygen Concentration - - Weight 140 kg (309 lb) 01/14/2022 10:46 AM EDT Height 175.3 cm (5' 9 ) 01/14/2022 10:46 AM EDT Body Mass Index 45.63 01/14/2022 10:46 AM EDT Plan of Treatment Health Maintenance Due Date Last Done Comments CT Colonography 1974 Colonoscopy 1974 Colorectal Cancer Screening 1974 FIT-DNA 1974 FIT 1974 FOBT 1974 Medicare Annual Wellness (AWV) 1974 Sigmoidoscopy 1974 Depression Screening 1986 Hepatitis B Vaccines (1 of 3 - 19+ 3-dose series) 1993 Adult Tetanus 1996 Zoster Vaccines (1 of 2) 2024 Influenza Vaccine (Season Ended) 2025 HIB Vaccines Aged Out No longer eligi ble based on patient's age to complete this topic HPV Vaccines Aged Out No longer eligi ble based on patient's age to complete this topic IPV Vaccines Aged Out No longer eligi ble based on patient's age to complete this topic Meningococcal B Vaccine Aged Out No l onger eligible based on patient's age to complete this topic Meningococcal Vaccine Aged Out No raoul zoie eligible based on patient's age to complete this topic Pneumococcal Vaccine: Pediat rics (0 to 5 Years) and At-Risk Patients (6 to 64 Years) Aged Out No longer eligible b ased on patient's age to complete this topic Rotavirus Vaccines Aged Out No longer eligible based on patient's age to complete this topic
--- OUTSIDE RECORDS SUMMARY | 2025-02-06 07:47 | XMS_ITS | Clinical Summary ---
Author Organization [facility] Address [address] [place] [address] Care Team Providers Care Direct Support Staff Member Name Role Phone Milan Mehta MD Primary Care Provider [phone] Pascale Souza Unavailable Nghia Galeas MD Unavailable Unavailable Allergies No known active allergies Medications HYDROcodone-acetam inophen ([place]) 5-325 MG tablet 1 tablet every 6 (six) hours if needed for severe pain Active fexofenadine (Leigh) 180 MG tablet Take 180 mg by mouth Daily Active lisinopril 20 MG tablet Take 20 mg by mouth Daily Active SUMAtriptan (Imitrex) 100 MG tablet Take 100 mg by mouth 1 (one) time if needed for migraine Active pregabalin (Lyrica) 200 MG capsuleIndications :Low back pain, unspecified back pain laterality, unspecified chronicity, unspecified whether sciatica present Take 1 capsule (200 mg) by mouth in the morning and 1 capsule (200 mg) in the evening and 1 capsule (200 mg) before bedtime. Due now. 270 capsule 1 11/01/19 25 Active baclofen (Lioresal) 10 MG tabletIndications: Chronic bilateral low back pain, unspecified whether sciatica present TAKE 1 TABLET BY MOUTH IN THE MORNING then TAKE 1 TABLET BY MOUTH at noon then TAKE 1 TABLET BY MOUTH IN THE EVENING then TAKE 1 TABLET BY MOUTH BEFORE bedtime 120 tablet 02/06/20 25 Active albuterol HFA 90 mcg/act inhaler Inhale 2 puffs every 6 (six) hours if needed 01/04/20 25 Active propranolol LA (Inderal LA) 80 MG 24 hr capsule Take 80 mg by mouth Daily 01/04/20 25 Active omeprazole (PriLOSEC) [address] capsule Take 20 mg by mouth Daily 01/04/20 25 Active DULoxetine (Cymbalta) [address] capsule Take 60 mg by mouth Daily 01/04/20 25 Active phentermine (Adipex-P) 37.5 MG tablet 37.5 mg 02/05/20 25 Active ondansetron ODT (Zofran-ODT) 4 MG disintegrating tablet 4 mg 08/09/20 24 Active diclofenac (Voltaren) 75 MG EC tablet Take 75 mg by mouth 2 (two) times a day as needed 01/01/20 25 Active omeprazole (PriLOSEC) [address] capsule Take 40 mg by mouth in the morning. Take before meals. Do not crush or chew.. 025 Discontinued propranolol (Inderal) 80 MG tablet Take 80 mg by mouth in the morning and 80 mg before bedtime. 025 Discontinued amitriptyline (Elavil) 25 MG tabletIndications: Paresthesia Take 3 tablets (75 mg) by mouth at bedtime 90 tablet 3 12/05/19 025 Discontinued DULoxetine (Cymbalta) [address] capsuleIndications :Neuropathic pain TAKE 1 CAPSULE BY MOUTH ONCE DAILY 30 capsule 3 12/06/19 025 Discontinued baclofen (Lioresal) 10 MG tabletIndications: Chronic bilateral low back pain, unspecified whether sciatica present Take 1 tablet (10 mg) by mouth in the morning and 1 tablet (10 mg) at noon and 1 tablet (10 mg) in the evening and 1 tablet (10 mg) before bedtime. 120 tablet 01/04/20 025 Discontinued Active Problems Problem Noted Date Diagnosed Date Sensory ataxia 04/11/2024 Back pain 04/11/2024 Overview (05/21/2024): intractable low back pain that is constant in nature. He cannot stand or sit for long periods of time and is having trouble with his ADLs. The patient has failed steroids and conservative therapy. No surgical intervention was warranted by Dr. Carranza and Dr. Bowen. He is following with pain management. MRI of his lumbar spine 12/2018 revealed evidence of degenerative facet arthropathy and disc herniations at L3-4 and L4- 5. He has received epidural injections through pain management and also has trialed nerve block trial with no significant benefit. He continues with back pain. He notes that he was evaluated by a surgeon at [facility] and was not a surgical candidate. He is unsure of the benefit of Zanaflex. He remains on baclofen. Lumbosacral radiculopathy 04/11/2024 Overview (05/21/2024): EMG of the bilateral lower extremities 12/2018 revealed S1 radiculopathies more pronounced on the left. He failed gabapentin and is now being treated with Lyrica. EMG of the bilateral lower extremities 05/26/21 revealed bilateral S1 radiculopathies, left greater than right, unchanged from 2019. He continues to follow with pain management in [place] and had ablation with no significant benefit. He has quit medical marijuana. 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 Lumbar radiculopathy 04/11/2024 Leg numbness 04/11/2024 Encounters Date Type Department Care Team Description 02/04/2025 Refill [facility] [address] [phone] Pascale Souza PA Chronic bilateral low back pain, unspecified whether sciatica present 01/03/2025 Refill [facility] [address] [place] [phone] Pascale Souza PA Chronic bilateral low back pain, unspecified whether sciatica present 12/05/2024 Refill [facility] [place] [address] [facility] [address] [place] [phone] Pascale Souza PA Paresthesia 12/05/2024 Refill [facility] [place] [address] [place] [phone] Pascale Souza PA Neuropathic pain 12/03/2024 12:40 PM EDT Office Visit [facility] [place] [address] [phone] Pascale Souza PA Lumbar disc herniation (Primary Dx); Paresthesia; Lumbar radiculopathy; Low back pain, unspecified back pain laterality, unspecified chronicity, unspecified whether sciatica present 12/03/2024 Bamboo flowsheet [facility] [address] [place] [address] Pascale Souza PA 11/28/2024 Telephone [facility] [address] [facility] [address] [place] [address] Carina Eid, NICA re: referral for FCE; re: FCE 11/21/2024 Telephone [facility] [address] [place] [address] Pascale Souza PA from Last 3 Months Family History Medical History Relation Name Comments Arthritis Mother COPD Mother Depression Mother Hypertension Mother Rheum arthritis Mother Sleep apnea Mother COPD Other Diabetes Other Hypertension Other Relation Name Status Comments Mother Other Social History Tobacco Use Types Packs/Day Years Used Date Smoking Tobacco: Former Cigarettes Tobacco Cessation:Counseling Given: Not Answered Alcohol Use Standard Drinks/Week Comments Not Currently 0 (1 standard drink = 0.6 oz pur e alcohol) Sex and Gender Information Value Date Recorded Sex Assigned at Not on file Legal Sex Male 8:24 PM EDT Gender Identity Not on file Sexual Orientation Not on file Last Filed Vital Signs Vital Sign Reading Time Taken Comments Blood Pressure 144/82 12/03/2024 12:40 PM EDT Pulse 74 04/18/2024 2:35 PM EDT Temperature - - Respiratory Rate - - Oxygen Saturation 93% 04/18/2024 2:35 PM EDT Inhaled Oxygen Concentration - - Weight 140 kg (309 lb) 12/03/2024 12:40 PM EDT Height 175.3 cm (5' 9 ) 12/03/2024 12:40 PM EDT Body Mass Index 45.63 12/03/2024 12:40 PM EDT Plan of Treatment Upcoming Encounters Date Type Department Care Team (Late st Contact Info) Description 02/06/2025 2:30 PM EDT Office Visit [facility] [address] [place] [address] Alexander De La Torre, BOBBIN WINDER [address] [place] [address] 04/04/2025 11:00 AM EDT Office Visit [facility] [address] [place] [phone] Pascale Souza PA [address] [place], [place] [id number] Insurance [employer] MEDICARE Care Teams Direct Support Staff Member Relationship Specialty Start Date End Date Milan Mehta MD [address] [place], [place] [phone] PCP - General Family Medicine 12/08/23 Pascale Souza PA [address] [place] [address] Physician Registration Scheduling Specialist Neurology 07/19/24 Nghia Galeas MD [address] [place] [address] Referring Physician Neurology 07/19/24
--- OUTSIDE RECORDS SUMMARY | 2025-02-06 07:48 | XMS_ITS | Clinical Summary ---
Author Organization [employer] Address [facility]-[id number] [address] [place] [address] Care Team Providers Care Director Enterprise Data Architecture Name Role Phone Milan Mehta DO Primary Care Provider Allergies No known active allergies Medications lisinopril (PRINIVIL,ZESTR IL) 20 mg tablet Take 20 mg by mouth daily. Active omeprazole (PriLOSEC) 40 mg capsule Take 40 mg by mouth daily. Active DULoxetine (CYMBALTA) 60 mg capsule Take 90 mg by mouth daily. Active meloxicam (MOBIC) 15 mg tablet Take 15 mg by mouth daily. Active tiZANidine (ZANAFLEX) 4 mg tablet Take 4 mg by mouth 2 (two) times a day. Active HYDROcodone-eleno taminophen (NORCO) 5-325 mg per tablet Take 1 tablet by mouth every 6 (six) hours as needed for pain. Max Daily Amount: 4 tablets Active fexofenadine (ZACKERY) 180 mg tablet Take 1 tablet (180 mg total) by mouth in the morning. Active pregabalin (LYRICA) 200 mg capsule Take 1 capsule (200 mg total) by mouth 3 (three) times a day. 07/17/2024 Active propranoloL (INDERAL) 80 mg tablet Take 1 tablet (80 mg total) by mouth in the morning and 1 tablet (80 mg total) before bedtime. Active SUMAtriptan (IMITREX) 100 mg tablet Take 1 tablet (100 mg total) by mouth once as needed. Active Active Problems Problem Noted Date Diagnosed Date Nausea and vomiting 07/25/2024 GERD (gastroesophageal reflux disease) Hyperlipidemia 07/25/2024 Hypertension 07/25/2024 Small bowel obstruction 07/25/2024 Ileus 07/24/2024 DDD (degenerative disc disease), lumbar 04/11/20 24 Neuropathy 04/11/2024 Social History Tobacco Use Types Packs/Day Years Used Date Smoking Tobacco: Former Smokeless Tobacco: Never Alcohol Use Standard Drinks/Week Comments No 0 (1 standard drink = 0.6 oz pur e alcohol) [facility] Utilities Answer Date Recorded In the past 12 months has th e electric, gas, oil, or water company threatened to shut off services in your home? No 07/24/2024 AUDIT-C Answer Date Recorded Frequency of Alcohol Consumption Never 10/24/2018 Average Number of Drinks Not on file 019 Frequency of Binge Drinking Not on file 01/2019 PRAPARE - Transportation Answer Date Re corded In the past 12 months, has l ack of transportation kept you from medical appointments or from getting medications? No 01/2024 In the past 12 months, has l ack of transportation kept you from meetings, work, or from getting things needed for daily living? No 07/24/2024 Housing Instability Answer Date Recorde d Are you worried or concerned that in the next two months you may not have stable housing that you own, rent or stay in as a part of a household? No 07/24/2024 Childcare Answer Date Recorded Childcare Unknown 02/28/2019 Employment Answer Date Recorded Employment Unknown 02/28/2019 Hunger Screening Answer Date Recorded Within the past 12 months we worried whether our food would run out before we got money to buy more. Never True 07/24/2024 Within the past 12 months th e food we bought just didn't last and we didn't have money to get more. Never True 07/24/2024 Purpose - Life Answer Date Recorded Purpose and direction in life Unknown Sex and Gender Information Value Date Recorded Sex Assigned at Not on file Legal Sex Male 12:11 PM EDT Gender Identity Not on file Sexual Orientation Not on file Last Filed Vital Signs Vital Sign Reading Time Taken Comments Blood Pressure 142/92 07/27/2024 7:32 AM EST Pulse 77 07/27/2024 7:32 AM EST Temperature 36.7 C (98.1 F) 07/27/2024 7:32 AM EST Respiratory Rate 18 07/27/2024 7:32 AM EST Oxygen Saturation 97% 07/27/2024 7:32 AM EST Inhaled Oxygen Concentration - - Weight 135.7 kg (299 lb 2 oz) 07/27/2024 5:13 AM EST Height 175.3 cm (5' 9 ) 07/24/2024 8:40 PM EST Body Mass Index 44.17 07/24/2024 8:40 PM EST Plan of Treatment Health Maintenance Due Date Last Done Comments Depression Screening 1986 Adult BMI Follow Up Plan 1992 COVID-19 Vaccine ( - 2023-2 5 season) 2024 07/16/2021, 01/13/2021, 12/19/2020 Zoster (Shingles) Vaccine (1 of 2) 2024 Influenza Vaccine 05/20/2025 07/16/2021, , 07/03/2015 Tobacco Screening 07/25/2025 07/25/2024 Adult BMI Screening 07/27/2025 07/27/2024 DTaP,Tdap and Td Vaccines (2 - Td or Tdap) 07/26/2033 07/26/2023 Goals Goal Patient Goal Type Associated Problems Recent Progress Patient-Stated? Author Return home General Yes Bebe Del Valle LSW Note: Evaluation of progress towards goal: In progress: Return home when able to DC. Medical Devices Not on file Insurance MEDICARE Advance Directives * Full Code (Latest Code Status on File) Date Activated Date Inactivated Comments 07/24/2024 5:22 PM 07/27/2024 1:04 PM Care Teams Director Enterprise Data Architecture Relationship Specialty Start Date End Date Milan Mehta DO PCP - General 10/24/18
--- OUTSIDE RECORDS SUMMARY | 2025-02-06 07:49 | XMS_ITS | Encounter Summary ---
Author [facility] Address [address] [place] [address] Care Team Providers Care Diesel Dinkey Operator Name Role Phone Unavailable Primary Care Provider Unavailabl e Reason for Visit * Reason Comments Medication Refill Encounter Details Date Type Department Care Team (Late st Contact Info) Description 07/10/2012 Refill Comprehensive [facility] [address] [place], [place] [phone] [place] [address] [place] [address] [phone] Medication Refill Social History Tobacco Use Types Packs/Day Years Used Date Smoking Tobacco: Never Smokeless Tobacco: Never Alcohol Use Standard Drinks/Week Comments Yes 0 (1 standard drink = 0.6 oz pur e alcohol) socially Sex and Gender Information Value Date Recorded Sex Assigned at Not on file Legal Sex Male 5:36 PM EST Gender Identity Not on file Sexual Orientation Not on file documented as of this encounter Plan of Treatment Not on file documented as of this encounter Visit Diagnoses Not on filedocumented in this encounter
--- OUTSIDE RECORDS SUMMARY | 2025-02-06 07:49 | XMS_ITS | Encounter Summary ---
Author [facility] Address [address] [place] [address] Care Team Providers Care Strategic Client Executive Name Role Phone Unavailable Primary Care Provider Unavailabl e Reason for Visit * Reason Comments Medication Refill Encounter Details Date Type Department Care Team (Late st Contact Info) Description 06/26/2012 Refill Comprehensive Care [address] [place], [place] [phone] [place] [address] [place] [address] [phone] Medication Refill Social History Tobacco Use Types [...]
--- OUTSIDE RECORDS SUMMARY | 2025-02-06 07:50 | XMS_ITS | Encounter Summary ---
Author Organization [facility] Address [address] [place] [address] Care Team Providers Care Second Time Worker Name Role Phone Unavailable Primary Care Provider Unavailabl e Reason for Visit * Reason Comments Medication Refill Encounter Details Date Type Department Care Team (Late st Contact Info) Description 03/14/2012 Refill Comprehensive Care [address] [place], [place] [phone] [place] [address] [place] [address] [phone] Medication Refill Social History Tobacco Use Types [...]
--- OUTSIDE RECORDS SUMMARY | 2025-02-06 07:51 | XMS_ITS | Encounter Summary ---
Author Organization [facility] Address [address] [place] [address] Care Team Providers Care Fringe Maker Name Role Phone Unavailable Primary Care Provider Unavailabl e Reason for Visit * Reason Comments Medication Refill Encounter Details Date Type Department Care Team (Late st Contact Info) Description 10/23/2011 Refill Comprehensive Care [address] [place] [phone] [place] [address] [place] [address] [phone] Medication Refill Social History Tobacco Use Types Packs/Day Years Used Date Smoking Tobacco: Never Assessed Sex and Gender Information Value Date Recorded Sex Assigned at Not on file Legal Sex Male 5:36 PM EST Gender Identity Not on file Sexual Orientation Not on file documented as of this encounter Plan of Treatment Not on file documented as of this encounter Visit Diagnoses Not on filedocumented in this encounter
--- NOTE | 2025-02-06 08:10 | PM.CN ---
Consult Note: HPI Data of Consult Patient: known to practice within the last 3 years Requesting Physician: Razia Contreras NP Primary Care Provider: GERMANIA NAILS Consult Narrative Reason for consult: f/u Narrative: Riccardo Hale a pleasant 49 year old male presents for evaluation and management of chronic neck and back pain with radiculopathy. Today rating pain 6/10 in neck, bilateral arms and hands, bilateral low back radiating to bilateral thighs and lower leg, burning tingling sharp and intermittent numbness and pain of bilateral hands RUE. Pain increases to 10/10. Patients symptoms worse with sitting or standing too long, leaning forward decreases pain. Continues to find benefit from medication regimen without side effects. Patient has failed to benefit from greater than 6 weeks PT/provider guided HEP. Pain most significant in left low back radiating into right leg and right foot. historically non surigcal for lumbar pain and radiculopathy, NS in 2021 recommended spinal cord stimulation. previously agreeable to scs trial however he has since changed his mind as he is fearful. cc:: CC: Razia Contreras NP Review of Systems ROS Status of ROS 10 or more systems reviewed and unremarkable except as noted in history and below Musculoskeletal Reports: back pain, neck pain and extremity pain PFSH PFSH Medical History Osteoarthritis ?M19.90 - Unspecified osteoarthritis, unspecified site (ICD-10) Numbness and tingling ?R20.0 - Anesthesia of skin (ICD-10) ?R20.2 - Paresthesia of skin (ICD-10) Obesity ?E66.9 - Obesity, unspecified (ICD-10) Acid reflux ?K21.9 - Gastro-esophageal reflux disease without esophagitis (ICD-10) Former smoker ?Z87.891 - Personal history of nicotine dependence (ICD-10) Sleep apnea ?G47.30 - Sleep apnea, unspecified (ICD-10) High cholesterol ?E78.00 - Pure hypercholesterolemia, unspecified (ICD-10) Hypertension ?I10 - Essential (primary) hypertension (ICD-10) Surgical History History of tonsillectomy and adenoidectomy ?Z90.89 - Acquired absence of other organs (ICD-10) Meds Home Medications and Allergies Home Medications ?Medication ?Instructions ?Recorded ?Confirmed ?Type albuterol sulfate 90 mcg/actuation inhalation Q4H PRN shortness of 03/10/23 History aerosol inhaler breath or wheezing duloxetine 30 mg capsule,delayed 30 mg PO QDAY 03/10/23 07/03/24 History release duloxetine 60 mg capsule,delayed 60 mg PO QDAY 03/10/23 07/03/24 History release ipratropium 0.5 mg-albuterol 3 mg 3 ml inhalation TID 03/10/23 07/03/24 History (2.5 mg base)/3 mL nebulization soln lisinopril 20 mg tablet 20 mg PO QDAY 03/10/23 07/03/24 History omeprazole 20 mg capsule,delayed 20 mg PO QDAY 03/10/23 07/03/24 History release trazodone 50 mg tablet 50 mg PO .hs PRN sleep 03/10/23 07/03/24 History diclofenac sodium 75 mg 75 mg PO BID PRN pain #60 tabs 07/27/23 07/03/24 Rx tablet,delayed release pregabalin 200 mg capsule (Lyrica) 200 mg PO TID 03/01/24 07/03/24 History propranolol 80 mg capsule,24 80 mg PO DAILY 03/01/24 07/03/24 History hr,extended release amitriptyline 25 mg tablet 25 mg PO DAILY 04/24/24 07/03/24 History baclofen 10 mg tablet 10 mg PO DAILY 04/24/24 07/03/24 History sumatriptan succinate 100 mg tablet 100 mg PO PRN migraine headache 04/24/24 History hydrocodone 5 mg-acetaminophen 325 See Rx Instructions .Route 05/25/24 07/03/24 Rx mg tablet .COMPLEX PRN pain #75 tabs diclofenac sodium 75 mg 75 mg PO BID PRN pain #60 tabs 11/14/24 Rx tablet,delayed release hydrocodone 5 mg-acetaminophen 325 See Rx Instructions .Route 11/14/24 Rx mg tablet .COMPLEX PRN pain #75 tabs diclofenac sodium 75 mg 75 mg PO BID PRN pain #60 tabs 12/31/24 Rx tablet,delayed release hydrocodone 5 mg-acetaminophen 325 1 tab PO TID PRN pain #75 tabs 12/31/24 Rx mg tablet Allergies Allergy/AdvReac Type Severity Reaction Status Date / Time No Known Drug Allergies Allergy Verified 07/03/24 08:14 Exam Constitutional Documenting provider has reviewed patient's vital signs: yes Common normals: no apparent distress, oriented x3, healthy appearing, alert and well nourished General appearance: cooperative Orientation/consciousness: Yes awake, Yes oriented to person, Yes oriented to place and Yes oriented to time Other: uses cane HENMT Common normals: normocephalic, hearing grossly normal bilaterally and moist oral mucous membranes Head and scalp: normocephalic Eye Common normals: PERRL Pupil: PERRL Neck & C-Spine Common normals: full ROM General: normal visual inspection Cervical spine: pain with cervical ROM Other: negative sprulings strength 5/5 in BUE sensation intact/equal BUE Chest Common normals: inspection of chest normal Respiratory Common normals: normal respiratory effort, no retractions and no use of accessory muscles Effort & inspection: able to speak in complete sentences and symmetric chest movement Back & Pelvis Common normals: thoracic and lumbar spine normal to inspection Lumbar spine/lower back: normal to inspection, ROM limited, pain with ROM, paraspinal muscle tenderness, paraspinal muscle spasm, straight leg raise positive right and straight leg raise positive left Other: positive facet loading bilat positive jo-ann bilat Muscle strength 4/5 LLE, 5/5 in RLE decreased sensation to right l4,5,S1 Extremity Common normals: normal to inspection and full ROM Neuro Common normals: oriented x3 and CN's II-XII intact bilaterally Sensorium/orientation: alert Gait (neuro): antalgic and assistive device used cane Motor exam: no movement abnormalities noted and strength abnormal Psych Common normals: mental status grossly normal, thought process normal, cooperative, affect normal, speech normal and activity/motor behavior normal Speech: normal speech Thought process: normal thought process Results Additional Findings Additional findings: If on a controlled substance or opioids, I have checked an OARRS report on this patient and there are no aberrancies noted in the prescribing history.??If on a controlled substance or opioid a drug screen was completed and reviewed within the last year, and if there has not been a drug screen completed we ordered one today to monitor higher risk, state monitored pain medication use. As part of providing excellent, safe, comprehensive care, the following was completed at our patient's visit: 1. A medication reconciliation and review to ensure accurate knowledge of current/active medications, including asking our patients to inform us about any [id number] medications or herbal remedies/nutritional supplements/alternative remedies. 2. A review to specifically ensure our patients have had annual screening for screening for depression, screening for tobacco use, and screening for unhealthy alcohol use. For concerning screenings had a discussion with the patient, provided patient education, and recommended follow-up with primary care provider when appropriate. If patient noted with a risk of falling, they received education on strength, gait, and balance training to prevent future risk of falling. Assessment and Plan Assessment and Plan (1) Lumbar radiculopathy: Assessment and Plan: The patient has had over 3 months of moderate to severe low back and BLE pain with functional impairment and inadequate response to conservative care including NSAIDS (unless there are contraindication such as concurrent blood thinners), multiple oral or topical pain medications, and home exercise program/physical therapy.? Patient has completed >6 weeks of guided home exercise program and/or formal physical therapy program without relief of their symptoms.? The Oswestry Disability Index was completed, and the patient scored a 70%.? The patient noted the following:?? severe pain impacting ADLs, sitting, standing, walking, lifting, social life, sleep, travel (2) Lumbar spondylosis: (3) Cervical radiculopathy: (4) Cervical spondylosis: (5) Chronic prescription opiate use: Assessment and Plan: I feel these medications are improving the patient's quality of life and allow them to tolerate activities of daily living as well as participate in recreational activity.? The patient does not report intolerable side effects. The patient is NOT opioid naive and non-pharmacologic and non-opioid treatment has failed to significantly relieve the patient's pain and improve functionality. The patient has a diagnosis that is related to a somatic or visceral pain etiology. ? ?? I reviewed with the patient the potential risks and side effects with the use of? opioid medications including but not limited to respiratory depression,? sedation, and even . Within the last 12 months I have verified the patient has access to naloxone should? these effects occur. The patient was advised to let? their family know they had Naloxone in case they would need to administer? the medication. I advised the patient to avoid the use of any other? sedation substances including alcohol, THC, and benzodiazepines while? taking opioid medications due to the risk of compounding side effects and? detrimental outcomes. within the last 12 months I have reviewed the PIGMENT SUPPLIER, pain treatment agreement and urine drug screen.? ?? A drug screen was completed within the last year, and no aberrancies were noted regarding their use of controlled substances. The patient understands they are subject to the terms and conditions of the pain contract that they have signed. ? ?? I have checked an OARRS report on this patient today and there are no aberrancies noted in the prescribing history.? Plan right L4/5 L5/S1 TFESI for lumbar radiculopathy/lumbar stenosis with NC under fluoroscopy continue f/u with neurology continue current medications, tolerating well without side effects. risks vs benefits reviewed update UDS today f/u 2 weeks after KEMAR
== END 2025-02-06 07:41 | disposition home or self-care (01) ==
PROVIDERS: PCP Family Medicine; Visit Provider Nurse Practitioner
DX: M54.16 Radiculopathy, lumbar region (principal); M47.816 Spondylosis without myelopathy or radiculopathy, lumbar region; M54.12 Radiculopathy, cervical region; M47.812 Spondylosis without myelopathy or radiculopathy, cervical region; Z79.891 Long term (current) use of opiate analgesic
CPT/HCPCS: G0463

== ENCOUNTER 2025-04-22 10:11 | Day surgery (SDC) | payer MEDICARE, SELFPAY ==
--- OUTSIDE RECORDS SUMMARY | 2025-04-22 10:14 | XMS_ITS | Clinical Summary ---
Author Organization [employer] Address [id number] [address] [place] [address] Care Team Providers Care Rehabilitation Director Name Role Phone Milan Mehta DO Primary Care Provider [phone] Allergies No known active allergies Medications lisinopril [...] drink = 0.6 oz pur e alcohol) [facility] Utilities Answer Date Recorded In the [...] 5:22 PM 07/27/2024 1:04 PM Care Teams Rehabilitation Director Relationship Specialty Start Date End Date Milan Mehta DO PCP - General 10/24/18
--- OUTSIDE RECORDS SUMMARY | 2025-04-22 10:14 | XMS_ITS | Clinical Summary ---
Author Organization [facility] Address [address], [address] [place] [address] Care Team Providers Care Tool Repair Technician Name Role Phone Unavailable Primary Care Provider [...] Plan of Treatment Not on file Insurance [facility] Member Subscriber Plan / Payer ( fective 2024-Present) Name:Riccardo Hale Relation to Subscriber:Self Name:Riccadro Hale Payer ID:Not on file Type:Not on file Address: [place] [id number] [facility]
--- OUTSIDE RECORDS SUMMARY | 2025-04-22 10:14 | XMS_ITS | Clinical Summary ---
Author Organization [facility] Address [address] [place] [address] Care Team Providers Care Electrician Wiring Name Role Phone Milan Nails MD Primary Care Provider [phone] Pascale Souza Unavailable Nghia Galeas MD Unavailable [phone] Allergies No known active allergies Medications HYDROcodone-acetam inophen (Roberts) 5-325 MG tablet 1 tablet every 6 [...] mg by mouth Daily 01/04/20 25 Active ondansetron ODT (Zofran-ODT) 4 MG disintegrating tablet 4 mg 08/09/20 24 Active diclofenac (Voltaren) 75 MG EC tablet Take 75 mg by mouth 2 (two) times a day as needed 01/01/20 25 Active fluticasone (Flonase) 50 MCG/ACT nasal sprayIndications:R hinitis medicamentosa Administer 2 sprays into each nostril Daily Shake gently. Before first use, prime pump. After use, clean tip and replace cap. 48 g 3 02/21/20 25 026 Active phentermine (Adipex-P) 37.5 MG tablet 37.5 mg 02/05/20 25 025 Discontin ued(Thera py completed ) Active Problems Problem Noted Date Diagnosed Date Arthropathy of left hip 02/19/2025 Chronic obstructive pulmonary disease, unspecifi ed 02/19/2025 Overview (02/19/2025): Documented on 08/24/2023 Migraine 02/19/2025 Morbid (severe) obesity due to excess calories 0 02/19/2025 Overview (02/19/2025): Documented on 04/18/2024 by MILAN NAILS GERD (gastroesophageal reflux disease) Hyperlipidemia 07/25/2024 Hypertension 07/25/2024 Nausea and vomiting 07/25/2024 Ileus 07/24/2024 Sensory ataxia 04/11/2024 Back pain 04/11/2024 Overview [...] he was evaluated by a surgeon at [facility] and was not a surgical candidate. [...] continues to follow with pain management in [place] and had ablation with no significant benefit. He has quit medical marijuana. 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 Lumbar radiculopathy 04/11/2024 Leg numbness 04/11/2024 Encounters Date Type Department Care Team Description 03/27/2025 8:40 AM EDT Office Visit [facility] [address] [place] [address] [address] [place] [address] Edda Bass MD Bilateral impacted cerumen (Primary Dx); Rhinitis medicamentosa 03/27/2025 Bamboo flowsheet [facility] [address] [facility] [address] [place] [address] Edda Bass MD 03/27/2025 Travel 02/20/2025 10:30 AM EDT Office Visit [facility] [address] [facility] [address] [place] [address] Edda Bass MD Rhinitis medicamentosa (Primary Dx); Bilateral impacted cerumen 02/20/2025 Bamboo flowsheet [facility] [address] [facility] [address] [place] [address] Edda Bass MD 02/20/2025 Travel 02/14/2025 Telephone [facility] [address] [place] [phone] Hair aZcarias DO 02/06/2025 2:30 PM EDT Office Visit [facility] [address] [place] [address] Alexander De La Torre, REZA Carpal tunnel syndrome of left wrist; Carpal tunnel syndrome of right wrist 02/06/2025 Bamboo flowsheet [facility] [address] [place] [address] Alexander De La Torre NP 02/06/2025 Travel 02/04/2025 Refill [facility] [address] [place] [phone] Pascale Souza PA Chronic bilateral low back pain, unspecified whether sciatica present from Last 3 Months Family History Medical History Relation Name Comments Arthritis Mother Smita COPD Mother Smita Depression Mother Smita Hypertension Mother Smita Neuropathy Mother Smita Rheum arthritis Mother Smita Sleep apnea Mother Smita COPD Other Diabetes Other Hypertension Other Relation Name Status Comments Mother Smita Other Social History Tobacco Use Types Packs/Day [...] Sign Reading Time Taken Comments Blood Pressure 138/78 03/27/2025 8:41 AM EDT Pulse 104 03/27/2025 8:41 AM EDT Temperature - - Respiratory Rate - - Oxygen Saturation 93% 04/18/2024 2:35 PM EDT Inhaled Oxygen Concentration - - Weight 147 kg (325 lb) 03/27/2025 8:41 AM EDT Height 175.3 cm (5' 9 ) 03/27/2025 8:41 AM EDT Body Mass Index 47.99 03/27/2025 8:41 AM EDT Plan of Treatment Not on file Insurance [employer] MED[employer] Care Teams Electrician Wiring Relationship Specialty Start Date End Date Milan Nails MD PCP - General Family Medicine 12/08/23 Pascale Souza PA [address] [place] [address] Physician Pin Chaser Neurology 07/19/24 Nghia Galeas MD [address] [place] [address] Referring Physician Neurology 07/19/24
--- OUTSIDE RECORDS SUMMARY | 2025-04-22 10:14 | XMS_ITS | Clinical Summary ---
Author Organization [facility] Address [address] [address] Care Team Providers Care Condominium Property Manager Name Role Phone Unavailable Primary Care Provider [...] at Not on file Legal Sex Male 10:43 PM EDT Gender Identity Not on file [...] Vaccines (1 of 2) 2024 Influenza Vaccine (#1) 2025 HIB Vaccines Aged Out No longer [...] on patient's age to complete this topic Insurance [employer] MEDICARE
[2025-04-22 10:15] VITALS: BP 145/92; PULSE 79; TEMP 36.2; O2SAT 96
--- OUTSIDE RECORDS SUMMARY | 2025-04-22 10:15 | XMS_ITS | Encounter Summary ---
Author Organization [facility] Address [address], [address] [place] [address] Care Team Providers Care Food Critic Name Role Phone Unavailable Primary Care Provider Unavailabl e Reason for Visit * Reason Comments Medication Refill Encounter Details Date Type Department Care Team (Late st Contact Info) Description 10/23/2011 Refill [facility] [address] [place] [phone] [place] [address] [place] [address] [phone] Medication Refill Social History Tobacco Use Types [...]
--- OUTSIDE RECORDS SUMMARY | 2025-04-22 10:15 | XMS_ITS | Encounter Summary ---
Author Organization [facility] Address [address] [facility], [address] [place] [address] Care Team Providers Care Trust Mail Clerk Name Role Phone Unavailable Primary Care Provider Unavailabl e Reason for Visit * Reason Comments Medication Refill Encounter Details Date Type Department Care Team (Late st Contact Info) Description 06/26/2012 Refill [facility] [address] [place] [phone] [place] [address] [place] [address] [phone] Medication Refill Social History Tobacco Use Types [...]
--- OUTSIDE RECORDS SUMMARY | 2025-04-22 10:15 | XMS_ITS | Encounter Summary ---
Author Organization [facility] Address [address] [facility], [address] [place] [address] Care Team Providers Care Quality Systems Engineer Name Role Phone Unavailable Primary Care Provider Unavailabl e Reason for Visit * Reason Comments Medication Refill Encounter Details Date Type Department Care Team (Late st Contact Info) Description 03/14/2012 Refill [facility] [address] [place] [phone] [place] [address] [place] [address] [phone] Medication Refill Social History Tobacco Use Types [...]
--- OUTSIDE RECORDS SUMMARY | 2025-04-22 10:15 | XMS_ITS | Encounter Summary ---
Author Organization [facility] Address [address] [facility], [address] [place] [address] Care Team Providers Care Bulldogger Name Role Phone Unavailable Primary Care Provider Unavailabl e Reason for Visit * Reason Comments Medication Refill Encounter Details Date Type Department Care Team (Late st Contact Info) Description 07/10/2012 Refill [facility] [address] [place] [phone] [place] [address] [place] [address] [phone] Medication Refill Social History Tobacco Use Types [...]
--- OUTSIDE RECORDS SUMMARY | 2025-04-22 10:27 | XMS_ITS | CCD ---
Author Organization [facility] Care Team Providers Care Tie Fastener Name Role Phone KIRN, DALLAS Unavailable Unavailable KIRNUS, DALLAS Unavailable Unavailable [...] Unavailable Milan Nails MD Primary Care Provider Pascale Masterson Unavailable Maurizio Patrick MD Unavailable [phone] HOUSE, MILAN P Primary Care Unavailable ZAHRA SAL Attending Unavailable TRACIE MATHIS Consulting Unavailable LORENA WOLFF Admitting Unavailable Maurizio Patrick MD Unavailable Unavailable HOUSE, MILAN P Primary Care Unavailable [...] Unavailable HOUSE, MILAN P Primary Care Unavailable Martinez Gonzales Attending Unavailable HOUSE, DO MILAN P Attending Unavailable HOUSE, MILAN P Primary Care Unavailable HOUSE, MILAN P Primary Care Unavailable Martinez Gonzales Admitting Unavailable Martinez Gonzales Attending Unavailable HOUSE, DO MILAN P Attending Unavailable HOUSE, MILAN P Primary Care Unavailable HOUSE, MILAN P Primary Care Unavailable HOUSE, DO MILAN P Attending Unavailable HOUSE, MILAN P Primary Care Unavailable HOUSE, DO MILAN P Attending Unavailable Maurizio Patrick MD Unavailable PASCALE SOUZA Attending Unavailable BLAIR GAN Attending Unavailable PASCALE SOUZA Attending Unavailable MAURIZIO PATRICK Attending Unavailable BETO REYES Attending Unavailable IMLAN NAILS Referring Unavailable BETO REYES Attending Unavailable MAURIZIO PATRICK Attending Unavailable PASCALE SOUZA Attending Unavailable Temi Marshall APRN Primary Care Provider Belinda Negron Attending Provider Unavailable Temi Marshall APRN Attending Provider Medications Current Medications Medication Drug Class(es) Dates Sig (Normalized) Sig (Original) acetaminophen 325 mg / HYDROcodone bitartrate 5 mg oral tablet (20 sources) Opioid Agonist Start: 04-17-2025 take 1 tablet by mouth three times daily as needed Hydrocodone-Aceta minophen 5-325 mg tablet Active 1 TAB PO Three times daily as needed April 17, 2025 12:00am Complies with drug therapy take 1 tablet by jay th every six hours as needed for pain HYDROcodone-acetaminophen ([place]) 5-325 MG tablet 1 tablet every 6 (six) hours if needed for severe pain Active take 1 tablet by jay th every six hours as needed [place] 5-325 MG 1 tablet as needed Orally every 6 hrs Active [id number] 200 actuat albuterol 0.09 mg/actuat metered dose inhaler (12 sources) beta2-Adrenergic Agonist Start: 04-17-2025 Albut parul Sulfate 90 mcg/actuation HFA aerosol inhaler Active INHALATION April 17, 2025 12:00am Complies with drug therapy Start: 01-03-2025 take 2 puff(s) by in halation every six hours albuterol HFA 90 mcg/act inhaler Inhale 2 puffs every 6 (six) hours if needed 01/03/2025 Active Albuterol Sulfat e HFA 108 (90 [...] Sep, Active baclofen 10 mg oral tablet (20 sources) gamma-Aminobutyric Acid-ergic Agonist Start: 04-10-2025 take 1 tablet by mouth four times daily Baclofen 10 mg tablet Active 10 MG PO Four times daily 120 April 10, 2025 12:00am Complies with drug therapy Start: 01-03-2025 End: 02-05-2025 baclofen (Lioresal) 10 MG ta blet Indications: Chronic bilateral low back pain, unspecified whether sciatica present TAKE 1 TABLET BY MOUTH IN THE MORNING then TAKE 1 TABLET BY MOUTH at noon then TAKE 1 TABLET BY MOUTH IN THE EVENING then TAKE 1 TABLET BY MOUTH BEFORE bedtime 120 tablet 02/05/2025 Active Start: 10-29-2024 End: 01-03-2025 baclofen (Lioresal) [...] Three times a day Sep, Active diclofenac sodium 75 mg delayed release oral tablet (11 sources) Nonsteroidal Anti-inflammatory Drug Start: 12-31-2024 take 1 tablet by mouth twice daily as needed diclofenac (Voltaren) 75 MG EC tablet Take 75 mg by mouth 2 (two) times a day as needed 12/31/2024 Active take 1 capsule by [facility] three times daily as needed Diclofenac 18 MG 1 capsule as needed Ora lly Three times a day Active DULoxetine 30 mg delayed release oral capsule (20 sources) Serotonin and Norepinephrine Reuptake Inhibitor Start: 04-17-2025 take 1 capsule by mouth once daily Duloxetine 30 mg capsule,delayed release(DR/EC) Active 30 MG PO daily April 17, 2025 12:00am Complies with drug therapy Start: 12-05-2024 End: 02-05-2025 take 1 capsule by mouth once daily DULoxetine (Cymbalta) [address] capsule Indications: Neuropathic pain TAKE 1 CAPSULE BY MOUTH ONCE DAILY 30 capsule 3 12/05/2024 02/05/2025 Discontinued Start: 08-01-2024 take 1 capsule by [facility] once daily DULoxetine (Cymbalta) [address] capsule Indications: Neuropathic pain TAKE 1 CAPSULE BY MOUTH DAILY 30 capsule 3 08/01/2024 Active Start: 03-26-2024 take 1 capsule by [facility] once daily DULoxetine (Cymbalta) [address] capsule Indications: Neuropathic pain TAKE 1 CAPSULE BY MOUTH DAILY 30 capsule 3 03/26/2024 Active Start: 02-23-2018 take 1 capsule by [facility] once daily DULoxetine (Cymbalta) [address] capsule Take 60 mg by mouth Daily 01/03/2025 Active take 1 capsule by [facility] once daily DULoxetine HCl 30 MG TAKE 1 CAPSULE BY MOUTH DAILY Oral for 30 Days Active fexofenadine hydrochloride 180 mg oral tablet (20 sources) Histamine-1 Receptor Antagonist Start: 04-17-2025 take 1 tablet by mouth once daily Fexofenadine 180 mg tablet Active 180 MG PO Daily April 17, 2025 12:00am Complies with drug therapy take 1 tablet by mouth once johnny y fexofenadine (Leigh) 180 MG tablet Take 180 mg by mouth Daily Active take 1 tablet by [facility] every twelve hours Fexofenadine HCl 60 MG 1 tablet Orally T wice a day Active fluticasone propionate 0.05 mg/actuat metered dose nasal spray (7 sources) Corticosteroid Start: 02-20-2025 End: 02-20-2026 Fluticasone Propionate 50 mcg/actuation spray,suspension Active INTRANASAL April 17, 2025 12:00am Complies with drug therapy Start: 09-23-2023 take 2 spray(s) nasa l route once daily Fluticasone Propionate 50 MCG/ACT 2 sprays Nasally Once a day for 14 day(s) Sep, Active lisinopril 20 mg oral tablet (20 sources) Angiotensin Converting Enzyme Inhibitor Start: 02-23-2018 take 1 tablet by mouth once daily Lisinopril 20 mg Tablet Active 20 MG PO Daily February 23, 2018 12:00am Complies with drug therapy Medical Marijuana / Cannabinoid Product as documented (2 sources) Medical Marijuan a / Cannabinoid Product as documented as documented as documented as documented Active omeprazole 20 mg delayed release oral capsule (20 sources) Proton Pump Inhibitor Start: 02-23-2018 take 1 capsule by mouth once daily omeprazole (PriLOSEC) [address] capsule Take 20 mg by mouth Daily 01/03/2025 Active End: 02-05-2025 take 1 capsule by mouth before mealtime omeprazole (PriLOSEC) [address] capsule Take 40 mg by mouth in the morning. Take before meals. Do not crush or chew.. 02/05/2025 Discontinued ondansetron 4 mg disintegrating oral tablet (9 sources) Serotonin-3 Receptor Antagonist Start: 08-09-2024 ondansetron ODT (Zofran-ODT) 4 MG disintegrating tablet 4 mg 08/09/2024 Active phentermine hydrochloride 37.5 mg oral tablet (9 sources) Sympathomimetic Amine Anorectic Start: 02-04-2025 End: 03-27-2025 phentermine (Adipex-P) 37.5 MG tablet 37.5 mg 02/04/2025 03/27/2025 Discontinued (Therapy completed) predniSONE 20 mg oral tablet (5 sources) Start: 02-20-2025 End: 02-26-2025 take 1 tablet by mouth in the morning predniSONE (Deltasone) 20 MG tablet Indications: Rhinitis medicamentosa Take 1 tablet (20 mg) by mouth in the morning and 1 tablet (20 mg) before bedtime. Do all this for 6 days. 12 tablet 02/20/2025 02/26/2025 Active Start: 09-23-2023 take 1 tablet by jay th every twelve hours predniSONE 20 MG 1 tablet Orally bid for 5 day(s) Sep, Active Start: 04-15-2023 predniSONE 20 MG Take 3 tabs daily x 3 days, then take 2 tabs daily x 3 days, then take 1 tab daily x 3 days. Orally Once a day for 9 days Mar, Not-Taking/PRN pregabalin 200 mg oral capsule (20 sources) Start: 04-17-2025 take 1 capsule by mouth three times daily Pregabalin 200 mg capsule Active 200 MG PO Three times daily April 17, 2025 12:00am Complies with drug therapy Start: 01-31-2024 End: 01-30-2025 take 1 capsule [...] bedtime. Due now. 270 capsule 1 11/01/2024 Active Pregabalin 200 M G Oral for 30 Days Active 24 hr propranolol hydrochloride 80 mg extended release oral capsule (20 sources) beta-Adrenergic Piyush Start: 04-17-2025 take 1 capsule by mouth once daily Propranolol 80 mg capsule,extended release 24 hr Active 80 MG PO Daily April 17, 2025 12:00am Complies with drug therapy Start: 01-03-2025 take 1 capsule by mo uth once daily propranolol LA (Inderal LA) 80 MG 24 hr capsule Take 80 mg by mouth Daily 01/03/2025 Active End: 02-05-2025 take 1 tablet by mouth in the morning propranolol (Inderal) 80 MG tablet Take 80 mg by mouth in the morning and 80 mg before bedtime. 02/05/2025 Discontinued SUMAtriptan 100 mg oral tablet (20 sources) Serotonin-1b and Serotonin-1d Receptor Agonist Start: 04-17-2025 Sumatriptan Succinat e 100 mg tablet Active MG PO April 17, 2025 12:00am Complies with drug therapy take 1 tablet by mouth once NATANAEL triptan (Imitrex) 100 MG tablet Take 100 mg by mouth 1 (one) time if needed for migraine Active Completed/Discontinued Medications Medication Drug Class(es) Dates Sig (Normalized) Sig (Original) amitriptyline hydrochloride 25 mg oral tablet (12 sources) Tricyclic Antidepressant Start: 12-04-2024 End: 02-05-2025 take 3 tablets by mouth at bedtime amitriptyline (Elavil) 25 MG tablet Indications: Paresthesia Take 3 tablets (75 mg) by mouth at bedtime 90 tablet 3 12/04/2024 02/05/2025 Discontinued Start: 08-01-2024 take 1-0.5 tablets b y [...] PO QHS 30 tablet 2 04/18/2024 Active gabapentin 600 mg oral tablet (1 source) Anti-epileptic Agent Start: 06-18-2019 End: 04-17-2025 Gabapentin 600 mg Tablet Discontinued 700 MG PO Three times daily June 18, 2019 12:00am April 17, 2025 9:57am Gerd Medication (1 source) Start: 02-23-2018 End: 02-23-2018 Gerd Medication Discontinued February 23, 2018 12:00am February 23, 2018 4:42pm mexiletine hydrochloride 200 mg oral capsule (1 source) Antiarrhythmic Start: 06-18-2019 End: 06-18-2019 Mexiletine 200 mg Capsule Discontinued June 18, 2019 12:00am June 18, 2019 7:52am Problems Active Problems Problem Classification Problem Date Documented Date Episodic/Chronic Allergic reactions (1 source) Allergic contact dermatitis due to plants, except food Episodic Chronic obstructive pulmonary disease and bronchiectasis (6 sources) Chronic obstructive lung disease; Translations: [Chronic obstructive pulmonary disease, unspecified] Onset: 02-19-2025 02-19-2025 Chronic Chronic obstructive pulmonary disease and bronchiectasis (1 source) Bronchitis, not specified as acute or chronic Episodic Disorders of lipid metabolism (6 sources) Hyperlipidemia; Translations: [Hyperlipidemia, unspecified] Onset: 07-25-2024 02-19-2025 Chronic Esophageal disorders (7 sources) Gastroesophageal reflux disease; Translations: [Gastro-esophageal reflux disease without esophagitis] Onset: 07-25-2024 02-19-2025 Chronic Essential hypertension (10 sources) Hypertensive disorder; Translations: [Hypertension, unspecified] Onset: 07-25-2024 02-19-2025 Chronic Headache; including migraine (6 sources) Migraine; Translations: [Migraine, unspecified, not intractable, without status migrainosus] Onset: 02-19-2025 02-19-2025 Chronic Nausea and vomiting (8 sources) Nausea with vomiting, unspecified; Translations: [Nausea and vomiting] Onset: 07-25-2024 02-19-2025 Episodic Comment on above: Problem List clean-u p per request of Phys. EHR Cmte Nonspecific chest pain (1 source) Chest pain; Translations: [Chest pain, unspecified] 08-31-2023 Episodic Comment on above: Problem List clean-u p per request of Phys. EHR Cmte Osteoarthritis (8 sources) Arthropathy of left hip joint; Translations: [Unilateral primary osteoarthritis, left hip] Onset: 02-19-2025 02-19-2025 Chronic Other connective tissue disease (1 source) Other muscle spasm; Translations: [OTHER MUSCLE SPASM] Onset: 02-16-2023 Episodic Other ear and sense organ disorders (4 sources) Impacted cerumen of bilateral ears; Translations: [Impacted cerumen, bilateral] 02-20-2025 Episodic Other nervous system disorders (4 sources) Other chronic pain; Translations: [OTHER CHRONIC PAIN] Onset: 02-15-2023 Chronic Other nervous system disorders (1 source) Other specified mononeuropathies; Translations: [OTHER SPECIFIED MONONEUROPATHIES] Onset: 02-16-2023 Chronic Other nervous system disorders (19 sources) Neuropathy; Translations: [Polyneuropathy, unspecified] Onset: 04-11-2024 04-11-2024 Chronic Other nervous system disorders (5 sources) Bilateral carpal tunnel syndrome; Translations: [Carpal tunnel syndrome, bilateral upper limbs] 07-19-2024 Chronic Other nervous system disorders (4 sources) Carpal tunnel syndrome of left wrist; Translations: [Carpal tunnel syndrome, left upper limb] 02-06-2025 Chronic Other nervous system disorders (4 sources) Carpal tunnel syndrome of right wrist; Translations: [Carpal tunnel syndrome, right upper limb] 02-06-2025 Chronic Other non-traumatic joint disorders (1 source) Pain in left hip; Translations: [PAIN IN LEFT HIP] Onset: 01-10-2023 Episodic Other non-traumatic joint disorders (1 source) Pain in right hip; Translations: [PAIN IN RIGHT HIP] Onset: 01-10-2023 Episodic Other nutritional; endocrine; and metabolic disorders (6 sources) Obesity caused by energy imbalance; Translations: [Morbid (severe) obesity due to excess calories] Onset: 02-19-2025 02-19-2025 Chronic Other nutritional; endocrine; and metabolic disorders (2 sources) Body mass index 40+ - severely obese; Translations: [Morbid (severe) obesity due to excess calories] 04-17-2025 Chronic Other upper respiratory disease (4 sources) Rhinitis medicamentosa; Translations: [Chronic rhinitis] 02-20-2025 Chronic Other upper respiratory infections (1 source) Acute sinusitis, unspecified Episodic Residual codes; unclassified (1 source) Obstructive sleep apnea syndrome; Translations: [Obstructive sleep apnea (adult) (pediatric)] 02-23-2018 Chronic Spondylosis; intervertebral disc disorders; other back problems (20 sources) Spondylosis without myelopathy or radiculopathy, lumbar region; Translations: [Other intervertebral disc degeneration, lumbar region] Onset: 03-16-2022 Chronic Spondylosis; intervertebral disc disorders; other back problems (20 sources) Muscle spasm of back; Translations: [Intervertebral disc disorders with radiculopathy, lumbar region] Onset: 08-03-2022 Episodic Comment on above: Problem List clean-u p per request of Phys. EHR Cmte Substance-related disorders (1 source) Smokes tobacco daily; Translations: [Nicotine dependence, unspecified, uncomplicated] 02-23-2018 Chronic Unclassified (1 source) LOW BACK PAIN, UNSPECIFIED; Translations: [LOW BACK PAIN, UNSPECIFIED] Onset: 03-17-2022 Unclassified (1 source) Abdominal Pain; Vomiting; Diarrhea Onset: 07-24-2024 Past or Other Problems Problem Classification Problem Date Documented Da te Episodic/Chronic Intestinal obstruction without hernia (8 sources) Ileus, unspecified; Translations: [Unspecified intestinal obstruction, unspecified as to partial versus complete obstruction] Onset: 07-24-2024 02-19-2025 Episodic Other nervous system disorders (19 sources) Sensory ataxia ; Translations: [Other lack of coordination] Onset: 04-11-2024 04-11-2024 Episodic Other nervous system disorders (19 sources) Numbness of lower limb ; Translations: [Anesthesia of skin] Onset: 04-11-2024 04-11-2024 Episodic Results Test Name Value Interpretation Reference Range Facility Patient Letteron 03-13-2025 Patient Letter [id number]#[id number] Coding Summaryon 03-04-2025 Coding Summary HTMLBase 64 QzbmdnlhCUr4bIc+PGhlYW Q+BB0AOZIeI93tiXFqrF6z H4GDZBkSDkonBKKIYPeAGq GoytDjQL1ihKRsCUPd IC8+KI2kXWXqBiuudKUju2 I5wVW2K58ncu4xBRpisRY4 VFWkKoWjfbyno6vhvYf3QH cuNmluOyBt QESneC36SAE6uF69Sq87qW ZviXTxu5styZx9UlBrZVPk LIN6gWhwZDtiz6MwZZGdK8 6nlWMlc4R0 AXOyiCtauGCoDzMikBC2oP 2fBVgoohjdq0mwzzmrFfu6 cy07xUNor3I3zHS9W1Xfzt X4SURahDDp DlkcdCZPrE9nsgvmk4ghxm hrRrJwAHOuMHg9JVf6AMLf cFbgVsDuZO98TRY9UGUrua OeE8DvRGYa pZuwTrE0v1M6Du9BE7TCSw vuK1IZMDXDSTemtJE+PC90 ye88W9GeYmkoXmw9KRUmKF F9zOF4zN5o ANImGCwrx7C7oQW9B7Ymjj Ryro2bm9oaKWXaFTocY11h qAZua8L0FKEdtIW8IVDcdE eqSzYtnC63 Oyc+RYUncYzzo6BvZzyjb8 wfb9aziVm4ZxcrREGosmGq eQzxSPQ7j0LbHo6eDHNxgR W8qUH9eQ5k AlSiOsJ0SWdiN035EfQntE IgQymjX78iJ6BctFA+PHRy Bym4PLRpnEmlYV5pZ4UkKW RpbmctbGVm gYxaEN8kKJPivsyzWPHhlU 6cZXVpS9b9KzPpSgV1FOwx R4VeUXQxaujiDd33qO7zHf JsMqN4TLcp U2TuknB3KKSasRRvKZazEB M4P00un9L6OSUsQVTlAXA6 mMP7aW7brUvalbxjiYDicX sgdmVydGlj BXhpROylN356VWCcdNfpZz NvZGluZyBEYXRlOiAgMDYv MTYvMjAyNTwvdGQ+PHRkIH F9xRbzOCSe zAEuKTmvLh0mzMtznPatHB 3sTAPrdsvbAYSnfF0eATGh hOAinOafYH8aPEAxglspt0 26FmAvWZD8 UEIlaXZoT8GioS0cKfScIT MeSEAyN3MisMIlORpeH614 KFmcSuW5ATDgdfXhN0EhMP FsaWduOiB0 f3U1Bx7Cx5BxdzygV0PmgH RhRlUlMfmhUEl2Y3YlHwcr dHI+PN75CTLqBJ71VZj5UF L5uXhnDSll KPExB9UzsL3aNnXwTXAwTP RkOyc+PHRhYmxlIHdpZHRo VIrbSTTzKyPbdYkePI0qDl 9yZGVyLWNv cKgwnOUnBhVmz2ivEMMsPZ unCP9slUanU2SgqGS1QPFr i4y1Li85Y31pF9BsmON+PG XahJL9eDE7 aW4hEoOsMbV7UQdfB162Hk LfiZVbSaykf5wbp9uwrTm1 LsC4PMQnmwZwdEmgWMJ3e5 PbRu16I93n IHdpZHRoPSIxNSUiIHZhbG mxxi4ysT4uJd0+PGNvbCB3 mBB7xM8aFdImGwD9RSmqC7 49InRvcCIv Inkha7fmx2ufkDl8QzOrBT GyytSsaRkdQDD9b4DdXk96 S5AczWgku2NmExr9is24yN Siq9F2xPA1 U8QxJGWgimauuKUqzZwfIS 5wSHKunyptMNQtdZ4aMFFk Y8k8AiLzKlX8UIicM1Uulz T7WXGvuIQz OOYlcNVUfX5sqluab8ypfm uaBgLuBBGpOHy3KZb0TMMq lKpoEaEuUNM0HhP2NKW8cC PdbJ8csDjb yfmhyB3iAba+JLY8rJTknI JWFG7hItzvzMY+PHRkIHN0 dGwpJEpcOCRjmY5jVPMfZ5 n2TsAxOvM2 DEbsQ4KybyE8RUNerWYxDF CyeYIEtH4jajyqw1eqxchi YvQiTLCkMSi8CVc8KZRkaI duOiBsZWZ0 TkY9IDW8vOJimG0exRqput wntW2pAff+QmlydGggRGF0 EIv2W2TaXnd4LGRqhYwvIA 0ncGFkZGlu Vq4drTeicElcSV8fDVKvui eca462JnSsl6wtUQOotCGs OZuuXMW3U78se7D7XIGhJM OeGRP2iOO4 zR5jkLztwfpzlCKllNssiw EscWmkAGwhNJbcR398ZMNc dMhmKfRsZXe1X2QdOsn6EG JnwZezYP7p rBCkFBjwSn8ghFeeySejSK 4lFDDhxotyi209EvFqb9xk OXPvaGWeZTuaAXC8K38zi1 O5KSNcAMNt SYQ2lLK1nI3vlCzynwjyfG VmdDsgdmVydGljYWwtYWxp D195EJQwpWisStPyjEy6V6 ZpLia3IRMh oTitGM4tqPZjWRgbXl4zjE seiNsrQU8oPJGgjpwyp126 BlTpy4bxURXvjZBtNMagIA T1G80ll9O9 YRYuAYDmALQ7yFT3iB1tlE lnbjogbGVmdDsgdmVydGlj JNntUIbiR805JLDhcMduXv BhdGllbnQg NLlyARq9X0QyVjewqXV+PC 95WYYqGS68lTVyxAPze3oa hDw1GfDqJPPtQTA4pQinBP euh0XzXECt L22fnSTnt1Z7RUJdhYfudN VvAmVhvLZ0uS3dKPdaeqhv d8ehreprPsfqt3cxrc28cW 46R73mUVqu ZHRoPSIzMCUiIHZhbGlnbj 3xmG0vJz1+YCMjuHD4cVD3 nI8bDTBqArA2URozM586Qr RvcCIvPjxj o0jcj5epuEv6WbH0OCAvdq VclDdlDPI5o4ZcXz76E52x IHdpZHRoPSIyMCUiIHZhbG taht0qwR7g Ii8+LXOzqLG6bGD4rH5iPs JyVxG7DZnzT245VzMibMXp OxkvE27kI6PsuXO+PHRyPj b1YCIwiGtd JV2xhUPqEMxnVc7eRYE1Kj OtLxCrGFdgM7IuEMJnvtxm euvmoVF7HOWcKAQhrY09Jo 9udDogMTBw xDUXlQ6uonony3bpcfnzAw UgAFPlRVh2NXt2JQEvdVev RgFxUYO2XbY9FOV2eOPipA 1hbGlnbjog bZ1rY4VuXDLvcjffSf72iO 2bYnKzQlS7MYlmUmi+U0VE QG8HOmjsR0NVAXXSBILAB0 FSRDwvdGQ+ TDIuOMM3hNyhROlcYNFdaR 9xGXRqE8k1TlKxSyN9AVlp J2IrUAGypysnZd95mD1mCg VhTgQ0KXkl W3AveuR2GMWrrNSiQBieGP Z4T62tt3Q2YNVrJSJyQIP4 vPB0eV7vyRzmeekbxTKpjD sgdmVydGlj FPhrZKlnC988BMOmuOhoBn UrNrOoFwB8OdE9I1ZePle6 FJLifQtvVA2cbWUaTYryPm 1yaWdodDog YA8jPHCozcbzFMAwmT0hZI YqzHTkiOfaRU5nETDifoei r540MqAqUFX2HKBtyFBeF9 GtlN8mEjPl JCCcJLSfN4JcxJRoWDzbA8 10TWetXiP4JIJvkwYaL3Uw NZJmoRgtTlM7t8A5Yl64OP BZZWFyczwv dGQ+BTDsUZC0mZmdYJetFR MumP2jXTRtI2f4RtZbFxL9 PEycG4YqIRWwinjkTx84rJ 2fBkRuClU2 ZNndO8AjkmK2WCUzzXYjKJ xnPHN8B15bm5Q8OYSkOIUn MDT8kXW6jV8bpMyxeyfabX VmdDsgdmVy aKjaAWpoISkgE121QYXbsB xlTj6KEJS7F7PsMkr2QABj jWfuMJ8uyYQcMMqiFt6shW yvoRyhIR2i EYZszytfMRFrvD4jCEUaoS ZwnTrsPL1cBVNpugqya806 WvYbIKD0VZSoeWNdS2AvhA 9yOiAjMDAw ZTKsL2XfaUIyECvvJ228EW kvSuN8ETQujtAsW6ElDPEk lVacOkK6u7Z1Pm0YOZqmS3 VyM0HypKec dGQ+PF41po03L1PsPvlwUw i7MUEeYOQ1vYP9rG1iWDHa HQros6L6nDC7U0VxybHfzt 9ad4daEVKf XBhzD61wkWTbl9C1ISGusO B9CCZxyJcqLpZmcJ64Bky+ ZJSkkZzaf3DnEykxt1oki6 yzfXv1FkIk OVPkqsKwfLypJLP8q8ElEo 26J77sCEozEIQpPBBvYPIa UFBsyGlxag2qlT6vVk9+PG VifMB4hLP3 uV6vOqWyZiX1LRkkN634Qo OosRFnBsiyc1pwx1wqiFs2 YxNwZSArydWfgSopJGH6t4 QgVs09W6Mt pJcch1DxKmq1tk13rAGya5 T0hHE8B2YwATDmnzdwlHPe uHwyMX8xCYNtftdrBQYkkO 6jRZYeM7a8 JoLuBxW7JZgoD7ElnoJ0EZ KiqQNjTWDymVWEiE2tolxi x3nivvksElVaRBBqGZk7PR b6TTIlxMyb QlHiLZQ7AyH2RPV1nZRvnL 0soCqhvvnuzE9fSnf+UGh5 u1ojsNSqFJ1ssOC6RI70SJ 28bKZvi4U2 zYV0X3AiTQYwimmsycitiX O4JXNpSXRrqN70Qc2feTsg Id6aOREpTQM8MXXliKAbH2 VlzT5zAcRq IEDdQPWrQ6FpiYHdHFwxZ2 68GKwbXrX2QXJnfkOjV3Cq WQBxaLvgLoR3l5W7Ws2PGA 01LH93TH86 cNOou3E2aLM9I1PjNPUdmo reeybwtLR5RLKmWZCikY66 Dy5whBxnIh5mAVHqVHA7CX HnlDWiK3Al wW0yMyYlFMVhAOUbZ4JhiF CjBBwtN502AGaoUjL0WQTn frBxY7OnKQYayDjvEjZ1t1 T7Ox9OHu62 MZ99WE75lBXlo6R5lFS6Z3 YzXCYeyedowvvdsIZ9PLKq KYMycR32Nr4btZmzEo8xYR RzMNO7XKOo bGQtH7RtcO4fQwRvQZWnZX FoO0TpcRPzKVemW148VIqv YdS9MTFoksEzP0QhIDCdtH hqQbQ9h4E4 Uy8GBIvznmt6I5TwSxacpN I+GX13GXKfJF17sWInfFXu b1kbaHg3JpZhBXPfSYO4yS frBNgsi7Jb ZXI (more content not included)... [facility] Provider Orderson 02-25-2025 Provider Orders [id number]#1.00 [facility] Consent Formson 02-22-2025 Consent Forms [id number]#[id number] [facility] Anesthesia Noteon 02-21-2025 Anesthesia Note Patient: RICCARDO HALE Age: 49 years Sex: MALE : 1975 Associated Diagnoses: None Author: Eitan Ramírez MD Postoperative Information Post Operative Note Health Status Allergies: Allergic Reactions (All) No known allergies Problem list: All Problems Chronic sinusitis / SNOMED CT 07208666 / Confirmed Side effect of medication / SNOMED CT 022247965 / Confirmed Headache / SNOMED CT 00099286 / Confirmed Hypertension / SNOMED CT 0983445445 / Confirmed Ileus / SNOMED CT 0747057079 / Confirmed Migraine / SNOMED CT 55605712 / Confirmed Nausea / SNOMED CT 3637874667 / Confirmed Obesity / SNOMED CT 4418179114 / Confirmed GRACIE (obstructive sleep apnea) / SNOMED CT 772592405 / Confirmed Sleep apnea / SNOMED CT 714142351 / Confirmed Umbilical hernia / SNOMED CT 5173517935 / Confirmed Physical Examination Vital Signs (last 24 hrs) Last Charted Temp Temporal 36.4 DegC (FEB 21 06:34) Heart Rate Monitored 82 bpm (FEB 21 08:45) Resp Rate 16 br/min (FEB 21 08:45) SBP H 131 mmHg (FEB 21 08:45) DBP H 92 mmHg (FEB 21 08:45) Assessment Anesthetic outcome No anesthetic complications noted. Plan Transfer/ Discharge: To home, Patient can be discharged from PACU when criteria met. Condition good. [Electronically Signed on: 02/21/2025 08:59 EDT] Eitan Ramírez MD [Verified on: 02/21/2025 08:59 EDT] Eitan Ramírez MD [facility] Anesthesia Note Patient: RICCARDO HALE Age: 49 years Sex: MALE : 1975 Associated Diagnoses: None Author: Eitan Ramírez MD Preoperative Information Anesthesia history: Patient history: No difficult intubation, No malignant hyperthermia. Family history: No malignant hyperthermia. Review of Systems Constitutional: Negative. Respiratory: Negative, No shortness of breath. Cardiovascular: Negative, No chest pain. Gastrointestinal: No heartburn. Health Status Allergies: Allergic Reactions (All) No known allergies Current medications: Home Medications (17) Active acetaminophen-hydrocod one 325 mg-5 mg oral tablet Adipex-P 37.5 mg oral tablet 37.5 mg = 1 tab(s), Oral, Daily Albuterol (Eqv-ProAir HFA) 90 mcg/inh inhalation aerosol 2 puff(s), PRN, Inhale, q6hr baclofen 10 mg tablet diclofenac sodium 75 mg oral delayed release tablet 75 mg = 1 tab(s), PRN, Oral, BID DULoxetine 60 mg oral delayed release capsule 1 cap(s), Oral, Daily fexofenadine 180 mg oral tablet 1 tab(s), Oral, Daily lisinopril 20 mg oral tablet 1 tab(s), Oral, Daily Multivitamin, generic 1 tab(s), Oral, Daily omeprazole 20 mg oral delayed release capsule 1 cap(s), Oral, Daily pregabalin 200 mg oral capsule propranolol 80 mg oral capsule, extended release 1 cap(s), Oral, Daily SUMAtriptan 100 mg oral tablet 1 tab(s), Oral, Daily vitamin A 1 tab(s), Oral, Daily Vitamin B12 1000 mcg oral tablet 1,000 mcg = 1 tab(s), Oral, Daily Vitamin C 1000 mg oral tablet 1,000 mg = 1 tab(s), Oral, Daily Vitamin D 1 tab(s), Oral, Daily Problem list: All Problems Chronic sinusitis / SNOMED CT 25788403 / Confirmed Side effect of medication / SNOMED CT 130179225 / Confirmed Headache / SNOMED CT 27527775 / Confirmed Hypertension / SNOMED CT 3333918170 / Confirmed Ileus / SNOMED CT 1557954982 / Confirmed Migraine / SNOMED CT 33066653 / Confirmed Nausea / SNOMED CT 2543755307 / Confirmed Obesity / SNOMED CT 3316222055 / Confirmed GRACIE (obstructive sleep apnea) / SNOMED CT 454841734 / Confirmed Sleep apnea / SNOMED CT 916950678 / Confirmed Umbilical hernia / SNOMED CT 2338465633 / Confirmed Histories Family History: COPD - Chronic obstructive pulmonary disease Mother Rheumatoid arthritis Mother Grandparent Hypertension Mother Grandparent Arthritis Mother Grandparent Cancer Grandparent Sleep apnea Mother Depression Grandparent Mother Procedure history: No active procedure history items have been selected or recorded. Social History Electronic Cigarette/Vaping Assessment Electronic Cigarette Use: Never. Electronic Cigarette Use: Never. Alcohol Assessment Use: Past. Tobacco Assessment Former tobacco user Tobacco Use:. Former tobacco user Tobacco Use:. 1 pack daily per day. 5 year(s). Substance Abuse Assessment Substance use: Past. Marijuana Comment: medical marijuana, no longer using. . Social & Psychosocial Habits Alcohol 08/09/2024 Alcohol Use: Past Substance Use 08/09/2024 Substance use: Past Type: Marijuana Comment: medical marijuana, no longer using. - 07/26/2023 19:51 - Carlos MASON, Bebe Tobacco 08/09/2024 Smoking tobacco use: Former tobacco user Number used per day: 1 pack daily Number of years: 5 08/09/2024 Smoking tobacco use: Former tobacco user Electronic Cigarette/Vaping 08/09/2024 Electronic Cigarette Use: Never 08/09/2024 Electronic Cigarette Use: Never . Physical Examination Measurements from flowsheet : Measurements 02/21/2025 6:34 EDT Height/Length Estimated 176.5 cm Weight Estimated 143.2 kg Body Mass Index Estimated 45.97 kg/m2 Vital Signs (last 24 hrs) Last Charted Temp Temporal 36.4 DegC (FEB 21 06:34) Heart Rate Monitored 82 bpm (FEB 21 06:34) Resp Rate 20 br/min (FEB 21 06:34) SBP H 146 mmHg (FEB 21 06:34) DBP H 94 mmHg (FEB 21 06:34) Review / Management Laboratory Results Plan [place] [employer] (ASA) physical status classification: Class III. Anesthetic Preoperative Plan Anesthesia: Monitored anesthesia care. Anesthetic plan, risks, benefits, and alternatives discussed with the patient and/or family. Patient verbalized understanding. [Electronically Signed on: 02/21/2025 07:31 EDT] Eitan Ramírez MD [Verified on: 02/21/2025 07:31 EDT] Eitan Ramírez MD Normal [facility] Inpatient Patient Summaryon 02-21-2025 Inpatient Patient Summary [address] [id number] Patient Discharge Instructions Name: RICCARDO HALE : 1975 Patient Address: [address] [place] [address] Primary Care Provider: Name: MILAN NAILS DO After you are discharged if you find you have any questions, please, call [phone] ext [phone] to speak to a nurse. Discharge Diagnosis: 1:Screening for colorectal cancer; Encounter for screening for malignant neoplasm of rectum Prescription Information: If you have been given a prescription for narcotics, seek immediate medical attention if you have any difficulty breathing or any sudden status changes such as confusion and sleepiness. If you or anyone you know is experiencing suicidal thoughts, mental health, alcohol and/or drug addiction problems; contact the [facility] 11/04 Crisis Hotline -Text 4HUXP sa 897646. If you received any narcotics, sedation, or [...] business decisions or sign any legal documents [facility] would like to thank you for allowing us to assist you with your healthcare needs. The following includes patient education materials and information regarding your injury/illness. RICCARDO HALE has been given the following list of follow-up instructions, prescriptions, and patient education materials: Follow-up Instructions With: Address: When: MILAN NAILS With: Address: When: Martinez Gonzales [address] [place] [address], [place] [address] Business (1) , only if needed Medications During the course of your visit, your medication list was updated with the most current information. The details of those changes are reflected below: Medications to Continue That Have Not Changed Other Medications acetaminophen-hydrocod one (acetaminophen-hydroco done 325 mg-5 mg oral tablet) TAKE 1 TABLET BY MOUTH THREE TIMES DAILY NEEDED for spondylosis without myelopathy. albuterol (Albuterol (Eqv-ProAir HFA) 90 mcg/inh inhalation aerosol) 2 puff(s) Inhale (breathe in) every 6 hours. as needed. Refills: 5. ascorbic acid (Vitamin C 1000 mg oral tablet) 1 tab(s) Oral (given by mouth) every day. cyanocobalamin (Vitamin B12 1000 mcg oral tablet) 1 tab(s) Oral (given by mouth) every day. diclofenac (diclofenac sodium 75 mg oral delayed release tablet) 1 tab(s) Oral (given by mouth) 2 times per day as needed as needed for arthritis. DULoxetine (DULoxetine 60 mg oral delayed release capsule) 1 cap(s) Oral (given by mouth) every day. Refills: 5. Durable Medical Equipment for Prescription (baclofen 10 mg tablet) TAKE 1 TABLET BY MOUTH THREE TIMES DAILY NEEDED. fexofenadine (fexofenadine 180 mg oral tablet) 1 tab(s) Oral (given by mouth) every day. Refills: 5. lisinopril (lisinopril 20 mg oral tablet) 1 tab(s) Oral (given by mouth) every day. Refills: 1. multivitamin (Multivitamin, generic) 1 tab(s) Oral (given by mouth) every day. omeprazole (omeprazole 20 mg oral delayed release capsule) 1 cap(s) Oral (given by mouth) every day. Refills: 5. phentermine (Adipex-P 37.5 mg oral tablet) 1 tab(s) Oral (given by mouth) every day. Refills: 0. pregabalin (pregabalin 200 mg oral capsule) TAKE 1 CAPSULE BY MOUTH THREE TIMES DAILY. propranolol (propranolol 80 mg oral capsule, extended release) 1 cap(s) Oral (given by mouth) every day. Refills: 5. SUMAtriptan (SUMAtriptan 100 mg oral tablet) 1 tab(s) Oral (given by mouth) every day. Refills: 5. Template Non-Formulary (Vitamin D) 1 tab(s) Oral (given by mouth) every day. vitamin A 1 tab(s) Oral (given by mouth) every day. It is important to always keep an active list of medications available so that you can share with other providers and manage your medications appropriately. As an additional courtesy, we are also providing you with your final active medications list that you can keep with you. acetaminophen-hydrocod one (acetaminophen-hydroco done 325 mg-5 mg oral tablet) TAKE 1 TABLET BY MOUTH THREE TIMES DAILY NEEDED for spondylosis without myelopathy. albuterol (Albuterol (Eqv-ProAir HFA) 90 mcg/inh inhalation aerosol) 2 puff(s) Inhale (breathe in) every 6 hours. as needed. Refills: 5. ascorbic acid (Vitamin C 1000 mg oral tablet) 1 tab(s) Oral (given by mouth) every day. cyanocobalamin (Vitamin B12 1000 mcg oral tablet) 1 tab(s) Oral (given by mouth) every day. diclofenac (diclofenac sodium 75 mg oral delayed release tablet) 1 tab(s) Oral (given by mouth) 2 times per day as needed as needed for arthritis. DULoxetine (DULoxetine 60 mg oral delayed release capsule) 1 cap(s) Ora (more content not included)... Normal [facility] MAGR Intraoperative Recordon 02-21-2025 MAGR Intraoperative Record MAGR Intra-Op Record Summary Primary Physician: Martinez Gonzales MD Finalized Date/Time: 02/21/25 08:30:12 Pt. Name: RICCARDO HALE/Sex: 1975 MALE Med Rec #: [id number] Physician: Martinez Gonzales MD Financial #: [id number] Pt. Type: D Room/Bed: / Admit/Disch: 02/21/25 06:22:54 - Institution: Case Times MAGR Entry 1 Patient In Room Time 02/21/25 08:03:00 Out Room Time 02/21/25 08:23:00 Anesthesia Start Time 02/21/25 08:03:00 Stop Time 02/21/25 08:21:00 Surgery Start Time 02/21/25 08:11:00 Stop Time 02/21/25 08:21:00 Last Modified By: Jessica Arredondo RN 02/21/25 08:22:33 General Comments: CECUM TIME 0814 Case Attendance MAGR Entry 1 Entry 2 Entry 3 Case Attendee Eitan Ramírez MD, Debra RN Radloff, Leigh-Ann CSFA DIRECTOR PARK Role Performed Anesthesiologist of Soldering Inspector Data Acquisition Technician Record Time In 02/21/25 08:03:00 02/21/25 08:03:00 02/21/25 08:03:00 Time Out 02/21/25 08:23:00 02/21/25 08:23:00 02/21/25 08:23:00 Procedure Colonoscopy Colonoscopy Colonoscopy Last Modified By: Jessica Arredondo RN, Debra RN Myers, Debra RN 02/21/25 08:22:40 02/21/25 08:22:40 02/21/25 08:22:40 Entry 4 Entry 5 Case Attendee Dale Rothman Raymond MD Role Performed Scrub Personnel Surgeon - Primary Time In 02/21/25 08:03:00 02/21/25 08:08:00 Time Out 02/21/25 08:23:00 02/21/25 08:22:00 Procedure Colonoscopy Colonoscopy Last Modified By: Jessica Arredondo RN, Debra RN 02/21/25 08:22:40 02/21/25 08:22:40 Surgical Procedures MAGR Pre-Care Text: A.20 Verifies operative procedure, surgical site, and laterality Im.150 Develops individualized plan of care Entry 1 Procedure Colonoscopy Primary Procedure Yes Primary Surgeon Martinez Gonzales MD Surgeon Comment COLONOSCOPY - SCREENING Start 02/21/25 08:11:00 Stop 02/21/25 08:21:00 Anesthesia Type MAC Surgical Service General Wound Class Clean-Contaminated Technique Details Closure Technique N/A Entire procedure No was performed via laparoscope or robotic assistance Last Modified By: Jessica Arredondo RN 02/21/25 08:22:24 Post-Care Text: O.730 The patient's care is consistent with the individualized perioperative plan of care General Case Data MAGR Pre-Care Text: A.350.1 Classifies surgical wound Entry 1 Case Information OR MAGR OR 01 Case Level Level 3 Wound Class Clean-Contaminated Specialty General ASA Class 3 Diagnosis Preop Diagnosis SCREENING Postop Same As Preop Yes Postop Diagnosis SCREENING Blunt or No Is the procedure No penetrating injury considered occured prior to Emergent/Urgent? the start of the procedure: Last Modified By: Jessica Arredondo RN 02/21/25 08:06:36 Post-Care Text: O.760 Patient receives consistent and comparable care regardless of the setting Time Out MAGR Entry 1 Procedure(s) Colonoscopy Time Out Checklist Verifications Team Introductions Yes Confirmed Identity, Yes Completed Procedure, Incision Site, and Consent(s) Presence of Yes Site Verification, Yes Necessary Site Marking, Site Procedural Marking Equipment, Devices, Alternative, and/or and Implants Site Marking Verified Exception in Accordance with Facility Policy Anesthesia Review Antibiotic Received n/a All Anesthesia Yes Within an Concerns Addressed Appropriate Time Interval Prior to Surgical Incision Surgeon Review Anticipated Blood Yes Expected Case Yes Loss Risk Addressed Duration Addressed Critical and Yes Non-Routine Steps to be Performed Addressed Nurse Review Equipment Yes Fire Risk Yes Checks/Concerns Assessment Addressed Completed and Interventions Performed Diagnostic and n/a Sterilization n/a Radiological Test Concerns Addressed Results Displayed are Appropriate and Labeled Other Concerns n/a Addressed Time Out Martinez Gonzales MD, Time Out Time 02/21/25 08:09:00 Participants Eitan Ramírez MD, Jessica Arredondo RN, Melvin Causey DIRECTOR PARK, Dale Rothman Last Modified By: Jessica Arredondo RN 02/21/25 08:11:10 Patient Positioning MAGR Pre-Care Text: A.280 Identifies baseline musculoskeletal status Im.40 Positions the patient Im.80 Applies safety devices Entry 1 Procedure Colonoscopy Body Position Lateral Left Arm Position Resting at Side Right Arm Position Resting at Side Left Leg Position Extended Right Leg Position Extended Feet Uncrossed? Yes Press Points Checked Yes Additional LYING ON LEFT SIDE Positioning Device Pillow Information Outcome Met (O.80) Yes Last Modified By: Jessica Arredondo RN 02/21/25 08:03:52 Post-Care Text: E.290 Evaluates musculoskeletal status O.80 Patient is free from signs and symptoms of injury related to positioning Departure from OR MAGR Entry 1 Present on Depart Oxygen Via Stretcher Post-op Destination PACU II Skin DFO Condition Dry Description Condition Warm Description Report Given To Jaqueline Norton RN Airway Maintenance (more content not included)... [facility] MAGR Postoperative Recordon 02-21-2025 MAGR Postoperative Record MAGR Phase II Record Summary Primary Physician: Martinez Gonzales MD Finalized Date/Time: 02/21/25 09:09:46 Pt. Name: LELAND HALEPAUL./Sex: 1975 MALE Med Rec #: [id number] Physician: Martinez Gonzales MD Financial #: [id number] Pt. Type: D Room/Bed: / Admit/Disch: 02/21/25 06:22:54 - Institution: Phase II Case Times MAGR Pre-Care Text: Patient is free from s/s of injury. Patient remains free from compromised physical state related to surgery or anesthesia. Patient comfort maintained. Patient/family verbalize understanding of discharge instructions. Entry 1 In PACU II 02/21/25 08:25:00 Discharge from PACU 02/21/25 09:02:00 II Last Modified By: Elvira Hirsch RN 02/21/25 09:09:42 Post-Care Text: The patient remains free from s/s of injury. Patient's vital signs stable, circulation maintained, return to preop mental and physical status, opsite/dressing intact, minimal or absent nausea and vomiting, tolerates po intake. Patient verbalizes adequate pain control. Patient/family express understanding of discharge instructions. Finalized By: Elvira Hirsch RN Document Signatures Signed By: Elvira Hirsch RN 02/21/25 09:09 [facility] Pre-Op Record Summary Primary Physician: Martinez Gonzales MD Finalized Date/Time: 02/21/25 08:05:28 Pt. Name: LELAND HALEPAUL./Sex: 1975 MALE Med Rec #: [id number] Physician: Martinez Gonzales MD Financial #: [id number] Pt. Type: D Room/Bed: / Admit/Disch: 02/21/25 06:22:54 - Institution: Pre-Op Case Times MAGR Pre-Care Text: Patient will be optimally prepared for surgery. Patient is free from s/s of injury. Provide information to patient/family related to plan of care. Verify patient allergies. Confirm identity and verify consent before the operative or invasive procedure. Entry 1 Patient Arrival Time 02/21/25 06:31:00 Preop Departure 02/21/25 08:02:00 Last Modified By: Jessica Arredondo RN 02/21/25 08:05:26 Post-Care Text: Patient is prepared mentally and physically and is ready for surgery. The patient remains free from s/s of injury. Patient/family express understanding of plan of care and participate in decisions affecting his or her perioperrative plan of care. Allergies documented appropriately. Patient identifiers and consent correct. General Comments: Pt arrives to [facility]. Pt denies SOB,cp,cough and flu like symptoms. Pt also denies pacemaker,defibrillato r. Pt does have sleep apnea. Pt is not a diabetic. Finalized By: Jessica Arredondo RN Document Signatures Signed By: Jessica Arredondo RN 02/21/25 08:05 [facility] Patient Handouton 02-21-2025 Patient Handout Gastroenterology Diverticulosis Diverticulosis is when small pouches called diverticula form in the wall of the colon. The colon is where water is absorbed. It is also where poop (stool) is formed. The pouches form when the inside layer of the colon pushes through weak spots in the outer layers of the colon. You may have a few pouches or many of them. In most cases, the pouches do not cause problems. If they become inflamed or infected, you may have a condition called diverticulitis. What are the causes? The cause of this condition is not known. What increases the risk? You are more likely to get this condition if: ? You are older than 60 years of age. ? You do not eat enough fiber or you get constipated a lot. ? You are overweight. ? You do not get enough exercise. ? You smoke. ? You take kjzm-hnn-mnnfbbx pain medicines. ? You have a family history of the condition. What are the signs or symptoms? In most people, there are no symptoms. If you do have symptoms, they may include: ? Bloating. ? Stomach cramps. ? Constipation or diarrhea. ? Pain in the lower left side of your abdomen. How is this diagnosed? This condition is often diagnosed during an exam for other colon problems. It may be diagnosed when you have: ? A colonoscopy. This is when a tube with a camera on the end is used to look at your colon. ? A barium enema. This is an X-ray exam that uses dye to look at your colon. ? A CT scan. How is this treated? You may not need treatment. Your health care provider will tell you what you can do at home to help prevent problems. You may need treatment if you have symptoms or if you have had diverticulitis before. You may be told to: ? Eat a high-fiber diet. ? Take medicine to relax your colon. ? Lose weight. Follow these instructions at home: Medicines ? Take onzv-maz-mdvaqwd and prescription medicines only as told by your provider. ? If told, take a fiber supplement or probiotic. Managing constipation Your condition may cause constipation. To prevent or treat constipation, you may need to: ? Drink enough fluid to keep your pee (urine) pale yellow. ? Take pmhg-bgi-jpemvmi or prescription medicines. ? Eat foods that are high in fiber, such as beans, whole grains, and fresh fruits and vegetables. ? Limit foods that are high in fat and processed sugars, such as fried or sweet foods. Try not to strain when you poop. Contact a health care provider if: ? Your symptoms get worse all of a sudden. ? You have pain in your abdomen that gets worse. ? You have bloating or stomach cramps. ? You continue to have frequent constipation. ? You have a fever or chills. ? You vomit. ? Your poop is bloody, black, or tarry. This information is not intended to replace advice given to you by your health care provider. Make sure you discuss any questions you have with your health care provider. Document Revised: 06/02/2023 Document Reviewed: 06/02/2023 PPTV Patient Education ? 2023 [employer]. Radiology Colonoscopy, Adult, Care After The following information offers guidance on how to care for yourself after your procedure. Your health care provider may also give you more specific instructions. If you have problems or questions, contact your health care provider. Findings: The scope was advanced the entire length of the colon. The prep was good. There were a few outpouchings called diverticula. Otherwise, the colon and rectum appeared normal. No polyps or masses were seen. What can I expect after the procedure? After the procedure, it is common to have: ? A small amount of blood in your stool for 24 hours after the procedure. ? Some gas. ? Mild cramping or bloating of your abdomen. Follow these instructions at home: Eating and drinking ? Drink enough fluid to keep your urine pale yellow. ? Follow instructions from your health care provider about eating or drinking restrictions. ? Resume your normal diet as told by your health care provider. Avoid heavy or fried foods that are hard to digest. Activity ? Rest as told by your health care provider. ? Avoid sitting for a long time without moving. Get up to take short walks every 1?2 hours. This is important to improve blood flow and breathing. Ask for help if you feel weak or unsteady. ? Return to your normal activities as told by your health care provider. Ask your health care provider what activities are safe for you. Managing cramping and bloating ? Try walking around when you have cramps or feel bloated. ? If directed, apply heat to your abdomen as told by your health care provider. Use the heat source that your health care provider recommends, such as a moist heat pack or a heating pad. ? Place a towel between your skin and the heat source. ? Leave the heat on for 20?30 minutes (more content not included)... [facility] Outside Recordson 02-06-2025 Outside Records [id number] [facility] Release of Informationon Release of Information [id number] [facility] Coding Summaryon 11-26-2024 Coding Summary HTMLBase 64 KpwnyhfgTWa4vCg+PGhlYW Q+RJ9OGDGsY61ttRLixU7f R1AIRPvUJymrUNNGJUhOGf RnunMiXJ0nqCDrYXHx IC8+RS6pUFEzXyezaDNhn6 M4xPV0X42muu4aXQhwgUD2 YEJzJuPwlmmjj3tpvWy9CS cuNmluOyBt KTMnrK77TWB1vW70Bt82eO SmxFObv1vhmTn8YzWxNVLv OHC3nEioGIexo9WdVYJnS3 7vrHMel8N9 CTZmjMpjgFWeKkGiqHD4qY 4eXHurebihc9ywderwOmv0 ad11mZKyj5E4sFD0S3Cgrw B8TYRbiNBo AzigdKBDtP4sliqic6xjft vaTeNuEQLdUTr5HDy8SRGu sClgDePbNC61YCV3XEJomp UkA3ZfFRYb jNkeVpI2r8E6Dr0RY0TRWl gkS5NJLLCIMUqqbCT+PC90 qi04T8KmZwiuDww0CPGvVH R0cZA9wZ1e YDOpWMjmq1A6eEM8K9Wrhf Ooec0pp3aeJUMsJNphR91q iWOap2T4TBVxhMD5TWQfyK anNhFkoP14 Oyc+GCEkmNrve7UuZdkyn4 exn2rkkCf1VvhfJIPpooMj aCfaXPO7g2MnWj5hZYFxpZ V9kHR0nZ6k LtSvIkH0ZVjcO072NnJbvE GbJnfdJ28nV1NgzGC+PHRy Iii1XJHnjFrwJF1xT1XfDL RpbmctbGVm nTliXI6qCBCbuhksRXStcC 3sZLNgZ5j0NjBvJpF6DJns C9OeKXSnpluePn11wF2fEv FpDrW1SJkv U7TenyL4LROjeCBhKJbnRN G1O90ba8C6LBIwDHMxTBB6 sET4rY1xwVdjmsjylSTqmR sgdmVydGlj ARmjWJsvE041ZFKmdFruTv NvZGluZyBEYXRlOiAgMDMv MTAvMjAyNTwvdGQ+PHRkIH Y8rZufEODu pNWhABmdUs3fxBvvwOoqCA 0hSYInkjlbDEFpnM1hAHHs bSZasFrlBC8rOPAdobmaj9 00ZwRxCFG9 HEFppSTeP5CmtZ9eArHkFR NtLHIsP0BmsBEfBYxgL492 ZUmjShS8FELpkaJjY4EoOD FsaWduOiB0 k6S8Kf5Iq0SpkcwxU0RzuB MaCjVpRkwbMCk7K4FmNdsj dHI+ZV00SYTmLO89YHn5CF N6aLrgVPvg DZGkL9GfoS3eKnVgSSPrCJ RkOyc+PHRhYmxlIHdpZHRo NTqePQLzMjKvyWezFP2vRj 9yZGVyLWNv sOohtORoLwCpn1baYAJqWV lrCC0qeVgyW1ZnpFC6USMg s2s9Qm46Z15yL5TnxUU+PG BqjCK1hMM9 nR4tIaZgPyY0UPdlH262Kz EguKSdQjaal5pey3wfqNb6 XdV7RTSdqrBssNvwXFQ7a6 OzYl96V46s IHdpZHRoPSIxNSUiIHZhbG ymcw0xcU7mGw0+PGNvbCB3 yPP6hS5nUmCdBvF8JGulT1 49InRvcCIv Pqbuv3nsg9xsaQs4WgWoBO NdtlFehIdsRQC9z2PeZg01 B7AzePfsl0EnOff9zu33hI Flb0W9rKP4 G6KmCPYpcikvcAXujPjjFV 2iRZOassajFSPiwY1xBEVi G1g0SpIiIlU5FAfnE6Gumq W4OHBmnOQj UEXdnVDPnO5ihfyuw3abuk jkFvRfNQOsHGo2DRr1GRGy zPpsVhOnUSN4TlR6ODY7dF FwfS3sjYjo ipueaS9yVxy+BCI7hKOivQ HBZP4dFhtceTZ+PHRkIHN0 sLwjFUpaRJSwpP7sVCVlV0 h3FaSzXjK9 ZRocP6VqqqA5TXIhiFQeSB FbhNIGyF1ewrwwe4ijitzq VeOpRROjESj7CBf5FQFhwR duOiBsZWZ0 WgA1JEZ8rHWmoD1ytClysn ewaJ2xGpd+QmlydGggRGF0 OFq7R7FpKwl1GUTmzSljHE 0ncGFkZGlu Cy0ihTpgdCwqBY1kJXSkys nry928GdJar2muRYQpqWDn KBjjCLP8K47uf5P5EUUwUG XiHZW8hBV7 vJ2guJbmqdkyqSDfrWeukp NffBtiDXvaOSvjI481LYEr tDbiZpRmWJo5K4VrLzy3IS VedUwqHI3f aHWwIWwaHe8ktDeatTuuTZ 6vIKFawogpd270NxRgk5iz ZZBxaPGzVLvvEZI5E62gu6 X0AVTeVPCd CCZ7jWO5sM1vqUuptdrgpS VmdDsgdmVydGljYWwtYWxp O466CFDcaWdoHzCswAl2F3 LrUpn8XOQd pMrbVZ2rpEBxXGqtMg9deK fymYtxSN3aYCJfzgnnt298 QsWeo0zyUEBavFElXMdwUT O1A50db8D0 MBBsXFKhYBV3gPH9zL5luI lnbjogbGVmdDsgdmVydGlj TTrjIPrgD024YSBmoLnzYp BhdGllbnQg UAlmOWy7W9EvGsakjLV+PC 64MZSuUG50tDHasVRrn1gm wRc7MzMqBKEmIMZ3rWzrSY adp8MqPZBd L63wcSWdy0C8NVLomWwsyS XaPqAckCO6zN7zQZhumact n5fvzvocJkaui4esmq49gJ 33K43uUIku ZHRoPSIzMCUiIHZhbGlnbj 8rjM7rAe6+NRLqoNV3rHX5 wM9lXRUdJuZ7IRwzY631Hh RvcCIvPjxj v1ewc2iliNk8CgO3CNPzsq GlaSlmSWP5s0PiDr98I22x IHdpZHRoPSIyMCUiIHZhbG rmxp7zbS0p Ii8+AFMgsQO2sRZ1rF0gPe TbYcP9ADbnP302IqLpiGEr JafrM02zY2GoaAR+PHRyPj o5KAYuwUxq MQ1qnDUsSJifIw5uSCG4Oz IrOoWgYNiwM8JsOIXqwgps lcrsqRA2IXOoWBCvmK00Ma 9udDogMTBw iMALsS0mrhzas4cgcyavGy HdJTOxHXp1QBl7OORlkRhy TcTkAEI9YlL7FGC0kKPgyE 1hbGlnbjog tZ4sP3OfOHWxdeqwAc88fX 6lYcBrNjO4KZocHjy+U0VE GF8DQngaS7MCMYIDGOFDB8 FSRDwvdGQ+ AUSdUYF6bEcgUKcjOGUrjB 1pVWCoB4v4FcQwZpA8TUmp Y2VpEUVwcnrbHh93vN3oCr QtHmA7IIyp I2GnrdC2LZOliPTpMBhvMU T0U91oo8G6FMGlZAGzBDP4 nJD5cJ9prAyarqhdyMVksJ sgdmVydGlj NTmvAYhjU729UCTljDraNx FvZjOqBcM0KrK3W5QjFmj3 QFAaeYzyPZ1wnLViZRhmKo 1yaWdodDog EM6fJMNgrulsKBCyyD3gWH FwlBPybAsrSA4qZXEznqey c261MfDnGZD1BEPamQCyG3 ArrF4eRnOz YTLeOYVzR8BjkUDoBCbwN0 19HUcmTjL3WHNphnRbE1Uo VYTydDtqNpK7x8N7Tp86RD BZZWFyczwv dGQ+AHZsEVU2hWxyDTokCY UwuA2oQLHdH7y0ScIxSlI1 ZWzyF8IgHAKikqgdNo73nH 0dChNqUxH5 MLtgP3XckaR0LNYrwMGrCF aeSYR2I16av3I0GXFiPKGb PDE7wIO4sG6bwOjrxalesL VmdDsgdmVy oJstWUjtQFloI221QFJdkQ avCi6CLDH0M1BsCgx3EOOq bRhnRR9fyQBpCZwwPw1twJ xrhZptWN2y RRGpoqxeVDGdsP8bSDUnxF YtnKhcOU3lNRAfvzzri777 FhApMQZ0IDXlfDHsA4PonG 9yOiAjMDAw FJLdL3ZanIQuCVxrJ833PT wsQnN0IVPicwRnT5XyHVIi qNclHdN8e5W2Ei8CUTkquB Q+WW48qy58 F4RxMoudXrh0KQQiPPG1pX E7vZ8sODQrHQmuj4D3yBW9 D3AeufEjul6pn9etLRPuIU ccL83jtOEn z2H3VOImgUD4NAYdlAcxDw XvuQ64Ddw+LJSndSxgv6Rq Ohazt7gox9mlnRh5RyWnGX IgdmFsaWdu NIT9d2AgWj64S06hSBnkLH EaQTYzELNpZEXfuSzgjj0y rG7wCv4+CPMrdFC8fHI6yB 3jPdZeIuX8 FHawH501DdWoiYOhCkdav2 emz6bvgHh7OzWiLOWcbbIa fDqvRYJ0k5DnMb00T9MbcN aph1VwIiv2 vu04wXWkx2Y7dAV7K1EaFM AxuicdpZFidNroEW2jEWTz jhdpBYVueH9cSOScN5z7Ga CiXzW3QYck L9WptvI9PTLnbXJpSDTjhE DJeY4rhqqdk8sjaebuOqJn FRNxAHt6NCi9APJhpKueBk IwFGA3ErL5 TPD1yAIcmZ3qlNpydchfyC 9wOyc+HMd5e5mkcPQsTY8u qZL7IX61BC84sCJnu1U1hC Z9W4DgDPJo nzcvbqxomRX1IBPgIEOhzS 02Ce0jpPxwJs3bBLWqLMS3 SADchGSrQ0FowW2qWtLnIM EaJLXeF8Jh mGVvCGmdK604GNzrDzX9WR IoivJcG4VaPIMbrDbqVeQ0 c0S5Ae6JSF26BJ79AZ15rW Ovv6K3vFQ2 H2CfHDDhkyryjobwwCK2IC IxKEUsyO16Gz8lzBtmTr7o MCXjTPV7ITGvrGAgW6NniM 9yOiAjMDAw ITXsZ4OrjGAdUNarJ534GV akZmV5KQLleuZqM6VoVKDf cTnyKyR7x5O9Zy1ONt17XN 04KW96hLPb e6W8mDS6Z3EtIHLmgszzwu qafON5IRNtIKXnqQ34Xf4m xGqmRp5cYAMrKIK3SPJivG ElE2EsmW8b FvSqQBCrHWZcX6OoeSHjUV nsP320XTftWiW2WTSwzrGr M9NlOQDxnLpzSvE5i1C3Dy 8GKFscdjb4 X8ZhFwhgeQO+UD52MKTkNI 92bPOduFIka4vaaUp9PpPj IXWaIUL2lCxiJWqjm1DvSL ZdC46buNGs c2U (more content not included)... Normal [facility] Reminder Messageson 11-20-19 25 Reminder Messages - From: MILAN NAILS DO To: [facility] [place] [place] Sent: 11/19/2024 07:59:43 EST ! Show up: 11/19/2024 07:59:43 EST Subject: Results Follow Up Actions: Call the patient with result(s) Due Date/Time: 11/20/2024 07:59:00 EST Reminder Comments: cysts seen in both maxillary sinuses. suggest ent referral Results: Date Result Type Result Name 11/16/2024 9:[address] Sinus w/o Contrast Order placed [facility] 11-08-2024 Outside Records [id number]#1.0 0OTGTIFF [facility] 08-09-2024 Outside Records [id number]#1. 00OTGTIFF [facility] CBC AND AUTO DIFFon 07-27-20 ABSOLUTE BASOPHIL 0.1 X10E9/L Normal 0.0-0.2 [facility] Comment on above: Performed By: #### Yousif HERRERA CMP, 3040-3 #### [facility] ([id number]) [address] [place] [address] 04770 ABSOLUTE NEUTROPHIL 5.7 X10E9/L Normal 1.5-6.6 [facility] Comment on above: Performed By: #### Yousif HERRERA CMP, 3040-3 #### [facility] ([id number]) [address] [place] [address] 51442 Basophils/100 WBC (Bld) 0.6 % Normal [facility] Comment on above: Performed By: #### Yousif HERRERA CMP, 3040-3 #### [facility] ([id number]) [address] [place] [address] 95357 Eosinophils (Bld) [#/Vol] 0.2 10*3/uL Normal 0.0-0.4 [facility] Comment on above: Performed By: #### Yousif HERRERA CMP, 3040-3 #### [facility] ([id number]) [address] [place] [address] 61068 Eosinophils/100 WBC (Bld) 2.4 % Normal [facility] Comment on above: Performed By: #### Yousif HERRERA CMP, 3039-11 #### [facility] ([id number]) [address] [place] [address] 30900 Erythrocyte distribution width (RBC) [Ratio] 12.8 % Normal 11.5-15.0 [facility] Comment on above: Performed By: #### Yousif HERRERA CMP, 3039-11 #### [facility] ([id number]) [address] [place] [address] 06468 Hematocrit (Bld) [Volume fraction] 40.2 % Normal 39-49 [facility] Comment on above: Performed By: #### Yousif HERRERA CMP, 3039-11 #### [facility] ([id number]) [address] [place] [address] 14251 Hemoglobin (Bld) [Mass/Vol] 13.4 g/dL Normal 13.0-17.0 [facility] Comment on above: Performed By: #### Yousif HERRERA [facility], 3039-11 #### [facility] ([id number]) [address] [place] [address] 55007 Lymphocytes (Bld) [#/Vol] 2.5 10*3/uL Normal 1.0-3.5 [facility] Comment on above: Performed By: #### Yousif HERRERA CMP, 3039-11 #### [facility] ([id number]) [address] [place] [address] 81255 Lymphocytes/100 WBC (Bld) 26.9 % Normal [facility] Comment on above: Performed By: #### Yousif EHRRERA CMP, 3039-11 #### [facility] ([id number]) [address] [place] [address] 50198 MCH (RBC) [Entitic mass] 28.9 pg Normal 27-34 [facility] Comment on above: Performed By: #### Yousif HERRERA CMP, 3039-3 #### [facility] ([id number]) [address] [place] [address] 08383 MCHC (RBC) [Mass/Vol] 33.4 g/dL Normal 32-36 [facility] Comment on above: Performed By: #### Yousif HERRERA CMP, 3039-3 #### [facility] ([id number]) [address] [place] [address] 27839 MCV (RBC) [Entitic vol] 87 fL Normal 80-100 [facility] Comment on above: Performed By: #### Yousif HERRERA CMP, 3 #### [facility] ([id number]) [address] [place] [address] 57590 Monocytes (Bld) [#/Vol] 0.9 10*3/uL Normal 0-0.9 [facility] Comment on above: Performed By: #### Yousif HERRERA CMP, 3039-3 #### [facility] ([id number]) [address] [place] [address] 93879 Monocytes/100 WBC (Bld) 9.2 % Normal [facility] Comment on above: Performed By: #### Yousif HERRERA CMP, 3039-3 #### [facility] ([id number]) [address] [place] [address] 67606 Neutrophils/100 WBC (Bld) 60.9 % Normal [facility] Comment on above: Performed By: #### Yousif HERRERA CMP, 3 #### [facility] ([id number]) [address] [place] [address] 61288 Platelet mean volume (Bld) [Entitic vol] 8.7 fL Normal 7-12 [facility] Comment on above: Performed By: #### Yousif HERRERA CMP, 3039-3 #### [facility] ([id number]) [address] [place] [address] 10116 Platelets (Bld) [#/Vol] 351 10*3/uL Normal 150-450 [facility] Comment on above: Performed By: #### C BCA, CMP, 3039-3 #### [facility] ([id number]) [address] [place] [address] 67189 RBC COUNT 4.64 X10E12/L Normal 4.10-5.70 [facility] Comment on above: Performed By: #### C BCA, CMP, 3039-11 #### [facility] ([id number]) [address] [place] [address] 23079 WBC (Bld) [#/Vol] 9.3 10*3/uL Normal 4.0-11.0 [facility] Comment on above: Performed By: #### C BCA, CMP, 3 #### [facility] ([id number]) [address] [place] [address] 85298 COMPREHENSIVE METABOLIC PANE Brian 07-27-2024 Albumin [Mass/Vol] 3.8 g/dL Normal 3.2-5.3 [facility] Comment on above: Performed By: #### C BCA, CMP, 3 #### [facility] ([id number]) [address] [place] [address] 82038 ALP [Catalytic activity/Vol] 53 U/L Normal 39-130 [facility] Comment on above: Performed By: #### C BCA, CMP, 3 #### [facility] ([id number]) [address] [place] [address] 13244 ALT [Catalytic activity/Vol] 16 U/L Normal 0-40 [facility] Comment on above: Performed By: #### C BCA, CMP, 3039-3 #### [facility] ([id number]) [address] [place] [address] 28368 Anion gap [Moles/Vol] 9 mmol/L Normal 5-15 [facility] Comment on above: Performed By: #### C BCA, CMP, 0-3 #### [facility] ([id number]) [address] [place] [address] 44818 AST [Catalytic activity/Vol] 15 U/L Normal 0-41 [facility] Comment on above: Performed By: #### C JAVIER, CMP, 3 #### [facility] ([id number]) [address] [place] [address] 31289 Bilirubin [Mass/Vol] 1.0 mg/dL Normal 0.3-1.2 [facility] Comment on above: Performed By: #### Yousif HERRERA, CMP, 3 #### [facility] ([id number]) [address] [place] [address] 77921 Calcium [Mass/Vol] 8.8 mg/dL Normal 8.5-10.5 [facility] Comment on above: Performed By: #### C JAVIER, [facility], 3 #### [facility] ([id number]) [address] [place] [address] 72467 Chloride [Moles/Vol] 106 mmol/L Normal 98-109 [facility] Comment on above: Performed By: #### C BCA, CMP, 3039-3 #### [facility] ([id number]) [address] [place] [address] 58057 CO2 [Moles/Vol] 25 mmol/L Normal 22-32 [facility] Comment on above: Performed By: #### C BCA, CMP, 3039-3 #### [facility] ([id number]) [address] [place] [address] 62569 Creatinine [Mass/Vol] 0.83 mg/dL Normal 0.70-1.20 [facility] Comment on above: Result Comment: METH OD TRACEABLE TO IDMS STANDARD Performed By: #### C ANTONIETTA HERRERA, 3040-3 #### [facility] ([id number]) [address] [place] [address] 97215 eGFR (CKD-EPI) NON-RACE DEPENDENT >90 Normal >59 [facility] Comment on above: Result Comment: Reported eGFR is based on the CKD-EPI 2020 equation that does not use a race coefficient. Performed By: #### C ANTONIETTA HERRERA, 3039-3 #### [facility] ([id number]) [address] [place] [address] 87335 Glucose [Mass/Vol] 103 mg/dL High 65-99 [facility] Comment on above: Performed By: #### Yousif HERRERA CMP, 3 #### [facility] ([id number]) [address] [place] [address] 86151 Potassium [Moles/Vol] 4.3 mmol/L Normal 3.5-5.0 [facility] Comment on above: Performed By: #### Yousif HERRERA [facility], 3 #### [facility] ([id number]) [address] [place] [address] 38186 Protein [Mass/Vol] 6.3 g/dL Normal 6.0-8.0 [facility] Comment on above: Performed By: #### C ANTONIETTA HERRERA, 3 #### [facility] ([id number]) [address] [place] [address] 23810 Sodium [Moles/Vol] 140 mmol/L Normal 134-146 [facility] Comment on above: Performed By: #### Yousif HERRERA CMP, 0-3 #### [facility] ([id number]) [address] [place] [address] 18842 Urea nitrogen [Mass/Vol] 5 mg/dL Normal 5-23 [facility] Comment on above: Performed By: #### Yousif HERRERA CMP, 0-3 #### [facility] ([id number]) [address] [place] [address] 47456 MAGNESIUMon 07-27-2024 Magnesium [Mass/Vol] 2.1 mg/dL Normal 1.8-2.6 [facility] Comment on above: Performed By: #### Yousif HERRERA CMP, 3039-3 #### [facility] ([id number]) [address] [place] [address] 04204 CBC AND AUTO DIFFon 07-26-20 24 ABSOLUTE BASOPHIL 0.0 X10E9/L Normal 0.0-0.2 [facility] Comment on above: Performed By: #### Yousif HERRERA CMP, 3039-3 #### [facility] ([id number]) [address] [place] [address] 52251 ABSOLUTE NEUTROPHIL 5.6 X10E9/L Normal 1.5-6.6 [facility] Comment on above: Performed By: #### Yousif HERRERA CMP, 3039-3 #### [facility] ([id number]) [address] [place] [address] 10823 Basophils/100 WBC (Bld) 0.5 % Normal [facility] Comment on above: Performed By: #### Yousif HERRERA CMP, 3039-3 #### [facility] ([id number]) [address] [place] [address] 77419 Eosinophils (Bld) [#/Vol] 0.3 10*3/uL Normal 0.0-0.4 [facility] Comment on above: Performed By: #### Yousif HERRERA CMP, 3039-3 #### [facility] ([id number]) [address] [place] [address] 73968 Eosinophils/100 WBC (Bld) 3.7 % Normal [facility] Comment on above: Performed By: #### Yousif HERRERA CMP, 3039-11 #### [facility] ([id number]) [address] [place] [address] 36933 Erythrocyte distribution width (RBC) [Ratio] 12.7 % Normal 11.5-15.0 [facility] Comment on above: Performed By: #### Yousif HERRERA [facility], 3039-11 #### [facility] ([id number]) [address] [place] [address] 92222 Hematocrit (Bld) [Volume fraction] 41.7 % Normal 39-49 [facility] Comment on above: Performed By: #### Yousif HERRERA [facility], 3039-11 #### [facility] ([id number]) [address] [place] [address] 26929 Hemoglobin (Bld) [Mass/Vol] 14.4 g/dL Normal 13.0-17.0 [facility] Comment on above: Performed By: #### Yousif HERRERA [facility], 3039-11 #### [facility] ([id number]) [address] [place] [address] 55176 Lymphocytes (Bld) [#/Vol] 2.2 10*3/uL Normal 1.0-3.5 [facility] Comment on above: Performed By: #### Yousif HERRERA CMP, 3039-11 #### [facility] ([id number]) [address] [place] [address] 27794 Lymphocytes/100 WBC (Bld) 25.4 % Normal [facility] Comment on above: Performed By: #### Yousif HERRERA CMP, 3039-11 #### [facility] ([id number]) [address] [place] [address] 10983 MCH (RBC) [Entitic mass] 29.7 pg Normal 27-34 [facility] Comment on above: Performed By: #### Yousif HERRERA, CMP, 3040-3 #### [facility] ([id number]) [address] [place] [address] 28856 MCHC (RBC) [Mass/Vol] 34.5 g/dL Normal 32-36 [facility] Comment on above: Performed By: #### C ANTONIETTA HERRERA, 3040-3 #### [facility] ([id number]) [address] [place] [address] 75143 MCV (RBC) [Entitic vol] 86 fL Normal 80-100 [facility] Comment on above: Performed By: #### Yousif HERRERA CMP, 3039-3 #### [facility] ([id number]) [address] [place] [address] 07860 Monocytes (Bld) [#/Vol] 0.7 10*3/uL Normal 0-0.9 [facility] Comment on above: Performed By: #### Yousif HERRERA CMP, 3 #### [facility] ([id number]) [address] [place] [address] 93164 Monocytes/100 WBC (Bld) 7.4 % Normal [facility] Comment on above: Performed By: #### Yousif HERRERA CMP, 3 #### [facility] ([id number]) [address] [place] [address] 48784 Neutrophils/100 WBC (Bld) 63.0 % Normal [facility] Comment on above: Performed By: #### Yousif HERRERA CMP, 3 #### [facility] ([id number]) [address] [place] [address] 97407 Platelet mean volume (Bld) [Entitic vol] 8.6 fL Normal 7-12 [facility] Comment on above: Performed By: #### Yousif HERRERA CMP, 3039-3 #### [facility] ([id number]) [address] [place] [address] 14094 Platelets (Bld) [#/Vol] 345 10*3/uL Normal 150-450 [facility] Comment on above: Performed By: #### C ANTONIETTA HERRERA, 0-3 #### [facility] ([id number]) [address] [place] [address] 57387 RBC COUNT 4.84 X10E12/L Normal 4.10-5.70 [facility] Comment on above: Performed By: #### Yousif HERRERA CMP, 3039-3 #### [facility] ([id number]) [address] [place] [address] 69127 WBC (Bld) [#/Vol] 8.8 10*3/uL Normal 4.0-11.0 [facility] Comment on above: Performed By: #### Yousif HERRERA CMP, 3039-3 #### [facility] ([id number]) [address] [place] [address] 41592 COMPREHENSIVE METABOLIC PANE [facility] 07-26-2024 Albumin [Mass/Vol] 3.9 g/dL Normal 3.2-5.3 [facility] Comment on above: Performed By: #### Yousif HERRERA CMP, 3039-3 #### [facility] ([id number]) [address] [place] [address] 05199 ALP [Catalytic activity/Vol] 57 U/L Normal 39-130 [facility] Comment on above: Performed By: #### Yousif HERRERA CMP, 0-3 #### [facility] ([id number]) [address] [place] [address] 18040 ALT [Catalytic activity/Vol] 21 U/L Normal 0-40 [facility] Comment on above: Performed By: #### Yousif HERRERA CMP, 0-3 #### [facility] ([id number]) [address] [place] [address] 84546 Anion gap [Moles/Vol] 9 mmol/L Normal 5-15 [facility] Comment on above: Performed By: #### C BCA, CMP, 3039-3 #### [facility] ([id number]) [address] [place] [address] 63342 AST [Catalytic activity/Vol] 18 U/L Normal 0-41 [facility] Comment on above: Performed By: #### C BCA, CMP, 3039-3 #### [facility] ([id number]) [address] [place] [address] 52452 Bilirubin [Mass/Vol] 0.9 mg/dL Normal 0.3-1.2 [facility] Comment on above: Performed By: #### C BCA, CMP, 3 #### [facility] ([id number]) [address] [place] [address] 57144 Calcium [Mass/Vol] 8.8 mg/dL Normal 8.5-10.5 [facility] Comment on above: Performed By: #### C BCA, CMP, 3039-3 #### [facility] ([id number]) [address] [place] [address] 38156 Chloride [Moles/Vol] 106 mmol/L Normal 98-109 [facility] Comment on above: Performed By: #### C BCA, CMP, 3 #### [facility] ([id number]) [address] [place] [address] 33796 CO2 [Moles/Vol] 23 mmol/L Normal 22-32 [facility] Comment on above: Performed By: #### C BCA, CMP, 3039-3 #### [facility] ([id number]) [address] [place] [address] 58551 Creatinine [Mass/Vol] 0.80 mg/dL Normal 0.70-1.20 [facility] Comment on above: Result Comment: METH OD TRACEABLE TO IDMS STANDARD Performed By: #### C BCA, CMP, 0-3 #### [facility] ([id number]) [address] [place] [address] 87683 eGFR (CKD-EPI) NON-RACE DEPENDENT >90 Normal >59 [facility] Comment on above: Result Comment: Reported eGFR is based on the CKD-EPI 2021 equation that does not use a race coefficient. Performed By: #### Yousif HERRERA CMP, 3040-3 #### [facility] ([id number]) [address] [place] [address] 68164 Glucose [Mass/Vol] 83 mg/dL Normal 65-99 [facility] Comment on above: Performed By: #### Yousif HERRERA CMP, 3039-3 #### [facility] ([id number]) [address] [place] [address] 74352 Potassium [Moles/Vol] 3.4 mmol/L Low 3.5-5.0 [facility] Comment on above: Performed By: #### Yousif HERRERA CMP, 3039-3 #### [facility] ([id number]) [address] [place] [address] 63142 Protein [Mass/Vol] 6.6 g/dL Normal 6.0-8.0 [facility] Comment on above: Performed By: #### Yousif HERRERA CMP, 3040-3 #### [facility] ([id number]) [address] [place] [address] 17037 Sodium [Moles/Vol] 138 mmol/L Normal 134-146 [facility] Comment on above: Performed By: #### Yousif HERRERA CMP, 0-3 #### [facility] ([id number]) [address] [place] [address] 99306 Urea nitrogen [Mass/Vol] 8 mg/dL Normal 5-23 [facility] Comment on above: Performed By: #### Yousif HERRERA CMP, 0-3 #### [facility] ([id number]) [address] [place] [address] 60608 MAGNESIUMon 07-26-2024 Magnesium [Mass/Vol] 2.0 mg/dL Normal 1.8-2.6 [facility] Comment on above: Performed By: #### Yousif HERRERA CMP, 3040-3 #### [facility] ([id number]) [address] [place] [address] 67985 POTASSIUMon 07-26-2024 Potassium [Moles/Vol] 3.3 mmol/L Low 3.5-5.0 [facility] Comment on above: Performed By: #### Yousif HERRERA CMP, 3040-3 #### [facility] ([id number]) [address] [place] [address] 86124 Potassium [Moles/Vol] 3.1 mmol/L Low 3.5-5.0 [facility] Comment on above: Performed By: #### Yousif HERRERA CMP, 3040-3 #### [facility] ([id number]) [address] [place] [address] 01448 XR ABDOMEN AP 1 VWon 024 XR [...] Valenzuela MD on 07/26/2024 8:55 AM Normal [facility] CBC AND AUTO DIFFon 07-25-20 24 ABSOLUTE BASOPHIL 0.1 X10E9/L Normal 0.0-0.2 [facility] Comment on above: Performed By: #### Yousif HERRERA CMP, 04471-4 #### [facility] ([id number]) [address] [place] [address] 29526 ABSOLUTE NEUTROPHIL 4.3 X10E9/L Normal 1.5-6.6 [facility] Comment on above: Performed By: #### C JAVIER [facility], 88478-9 #### [facility] ([id number]) [address] [place] [address] 72830 Basophils/100 WBC (Bld) 0.7 % Normal [facility] Comment on above: Performed By: #### C JAVIER CMP, #### [facility] ([id number]) [address] [place] [address] 98753 Eosinophils (Bld) [#/Vol] 0.4 10*3/uL Normal 0.0-0.4 [facility] Comment on above: Performed By: #### Yousif HERRERA [facility], #### [facility] ([id number]) [address] [place] [address] 13516 Eosinophils/100 WBC (Bld) 4.5 % Normal [facility] Comment on above: Performed By: #### Yousif HERRERA [facility], #### [facility] ([id number]) [address] [place] [address] 17565 Erythrocyte distribution width (RBC) [Ratio] 12.9 % Normal 11.5-15.0 [facility] Comment on above: Performed By: #### Yousif HERRERA [facility], #### [facility] ([id number]) [address] [place] [address] 57194 Hematocrit (Bld) [Volume fraction] 40.5 % Normal 39-49 [facility] Comment on above: Performed By: #### Yousif HERRERA CMP, #### [facility] ([id number]) [address] [place] [address] 69164 Hemoglobin (Bld) [Mass/Vol] 13.8 g/dL Normal 13.0-17.0 [facility] Comment on above: Performed By: #### Yousif HERRERA CMP, #### [facility] ([id number]) [address] [place] [address] 28297 Lymphocytes (Bld) [#/Vol] 2.7 10*3/uL Normal 1.0-3.5 [facility] Comment on above: Performed By: #### Yousif HERRERA CMP, #### [facility] ([id number]) [address] [place] [address] 07237 Lymphocytes/100 WBC (Bld) 32.2 % Normal [facility] Comment on above: Performed By: #### Yousif HERRERA CMP, #### [facility] ([id number]) [address] [place] [address] 41767 MCH (RBC) [Entitic mass] 29.5 pg Normal 27-34 [facility] Comment on above: Performed By: #### Yousif HERRERA [facility], #### [facility] ([id number]) [address] [place] [address] 00431 MCHC (RBC) [Mass/Vol] 34.0 g/dL Normal 32-36 [facility] Comment on above: Performed By: #### Yousif HERRERA [facility], #### [facility] ([id number]) [address] [place] [address] 47671 MCV (RBC) [Entitic vol] 87 fL Normal 80-100 [facility] Comment on above: Performed By: #### Yousif HERRERA CMP, #### [facility] ([id number]) [address] [place] [address] 47996 Monocytes (Bld) [#/Vol] 1.0 10*3/uL High 0-0.9 [facility] Comment on above: Performed By: #### Yousfi HERRERA CMP, #### [facility] ([id number]) [address] [place] [address] [place] [address] Monocytes/100 WBC (Bld) 11.8 % Normal [facility] Comment on above: Performed By: #### Yousif HERRERA CMP, [id number] #### [facility] ([id number]) [address] [place] [address] 92408 Neutrophils/100 WBC (Bld) 50.8 % Normal [facility] Comment on above: Performed By: #### Yousif HERRERA CMP, [id number] #### [facility] ([id number]) [address] [place] [address] 98859 Platelet mean volume (Bld) [Entitic vol] 8.6 fL Normal 7-12 [facility] [facility] Comment on above: Performed By: #### Yousif HERRERA CMP, 78579-1 #### [facility] ([id number]) [address] [place] [address] 14847 Platelets (Bld) [#/Vol] 355 10*3/uL Normal 150-450 [facility] Comment on above: Performed By: #### Yousif HERRERA CMP, 13530-6 #### [facility] ([id number]) [address] [place] [address] 56820 RBC COUNT 4.67 X10E12/L Normal 4.10-5.70 [facility] Comment on above: Performed By: #### Yousif HERRERA CMP, 73245-9 #### [facility] ([id number]) [address] [place] [address] 42275 WBC (Bld) [#/Vol] 8.4 10*3/uL Normal 4.0-11.0 [facility] Comment on above: Performed By: #### Yousif HERRERA CMP, 25866-2 #### [facility] ([id number]) [address] [place] [address] 68779 COMPREHENSIVE METABOLIC PANE [facility] 07-25-2024 Albumin [Mass/Vol] 3.7 g/dL Normal 3.2-5.3 [facility] Comment on above: Performed By: #### C JAVIER, CMP, #### [facility] ([id number]) [address] [place] [address] 79375 ALP [Catalytic activity/Vol] 56 U/L Normal 39-130 [facility] Comment on above: Performed By: #### C BCA, CMP, #### [facility] ([id number]) [address] [place] [address] 58528 ALT [Catalytic activity/Vol] 21 U/L Normal 0-40 [facility] Comment on above: Performed By: #### C BCA, CMP, #### [facility] ([id number]) [address] [place] [address] 70547 Anion gap [Moles/Vol] 5 mmol/L Normal 5-15 [facility] Comment on above: Performed By: #### C BCA, CMP, #### [facility] ([id number]) [address] [place] [address] 02926 AST [Catalytic activity/Vol] 16 U/L Normal 0-41 [facility] Comment on above: Performed By: #### C BCA, CMP, #### [facility] ([id number]) [address] [place] [address] 72610 Bilirubin [Mass/Vol] 0.8 mg/dL Normal 0.3-1.2 [facility] Comment on above: Performed By: #### C BCA, CMP, #### [facility] ([id number]) [address] [place] [address] 47467 Calcium [Mass/Vol] 8.4 mg/dL Low 8.5-10.5 [facility] Comment on above: Performed By: #### C BCA, CMP, #### [facility] ([id number]) [address] [place] [address] 91410 Chloride [Moles/Vol] 110 mmol/L High 98-109 [facility] Comment on above: Performed By: #### C ANTONIETTA HERRERA, 13664-4 #### [facility] ([id number]) [address] [place] [address] 26238 CO2 [Moles/Vol] 23 mmol/L Normal 22-32 [facility] Comment on above: Performed By: #### C ANTONIETTA HERRERA, 57654-9 #### [facility] ([id number]) [address] [place] [address] 98789 Creatinine [Mass/Vol] 0.94 mg/dL Normal 0.70-1.20 [facility] Comment on above: Result Comment: METH OD TRACEABLE TO IDMS STANDARD Performed By: #### C ANTONIETTA HERRERA, 59563-9 #### [facility] ([id number]) [address] [place] [address] 31624 eGFR (CKD-EPI) NON-RACE DEPENDENT >90 Normal >59 [facility] Comment on above: Result Comment: Reported eGFR is based on the CKD-EPI 2021 equation that does not use a race coefficient. Performed By: #### C ANTONIETTA HERRERA, 82291-1 #### [facility] ([id number]) [address] [place] [address] 19735 Glucose [Mass/Vol] 102 mg/dL High 65-99 [facility] Comment on above: Performed By: #### C ANTONIETTA HERRERA, 63779-3 #### [facility] ([id number]) [address] [place] [address] 20348 Potassium [Moles/Vol] 3.6 mmol/L Normal 3.5-5.0 [facility] Comment on above: Performed By: #### C ANTONIETTA HERRERA, #### [facility] ([id number]) [address] [place] [address] Protein [Mass/Vol] 6.3 g/dL Normal 6.0-8.0 [facility] Comment on above: Performed By: #### C BCA, CMP, 32945-7 #### [facility] ([id number]) [address] [place] [address] Sodium [Moles/Vol] 138 mmol/L Normal 134-146 [facility] Comment on above: Performed By: #### C BCA, CMP, 07197-4 #### [facility] ([id number]) [address] [place] [address] 54451 Urea nitrogen [Mass/Vol] 12 mg/dL Normal 5-23 [facility] Comment on above: Performed By: #### C BCA, CMP, 30531-0 #### [facility] ([id number]) [address] [place] [address] ABDOMEN AND PELVIS W CONT on [...] Findings Committee. J Am Ag Radiol. 2017 Apr;14(8):7441-[address] scans at this facility use dose modulation, iterative reconstruction, and/or weight based dosing when appropriate to reduce radiation dose to as low as reasonably achievable. Finalized by Bam Camejo MD on 07/25/2024 10:48 AM Normal [facility] Glucose Glucometer (BldC) [M ass/Vol]on 07-25-2024 Glucose [Mass/Vol] 76 mg/dL Normal 65-99 [facility] MAGNESIUMon 07-25-2024 Magnesium [Mass/Vol] 1.9 mg/dL Normal 1.8-2.6 [facility] Comment on above: Performed By: #### C JAVIER, [facility], 08706-4 #### [facility] ([id number]) [address] [place] [address], [place] [address] XR CHEST 1 VWon 07-25-2024 XR CHEST [...] extends below the diaphragm and off the xivfp-ai-ldfd. IMPRESSION: 1. No acute cardiopulmonary disease. 2. Moderate-sized hiatal hernia. There is a gastric tube with the tip extending below the diaphragm and off the vdyir-yw-asgl. Finalized by Francisco Bnagura MD on 07/25/2024 5:24 PM Normal [facility] XR CHEST 1 VW XR [...] Carlisle MD on 07/25/2024 3:36 PM Normal [facility] CBC AND AUTO DIFFon 07-24-20 ABSOLUTE BASOPHIL 0.1 X10E9/L Normal 0.0-0.2 [facility] Comment on above: Performed By: #### C JAVIER CMP, 3040-3 #### [facility] ([id number]) [address] [place] [address] 20792 ABSOLUTE NEUTROPHIL 7.3 X10E9/L High 1.5-6.6 [facility] Comment on above: Performed By: #### C JAVIER CMP, 3040-3 #### [facility] ([id number]) [address] [place] [address] 43944 Basophils/100 WBC (Bld) 1.0 % Normal [facility] Comment on above: Performed By: #### C JAVIER CMP, 3040-3 #### [facility] ([id number]) [address] [place] [address] Eosinophils (Bld) [#/Vol] 0.3 10*3/uL Normal 0.0-0.4 [facility] Comment on above: Performed By: #### Yousif HERRERA CMP, 3039-3 #### [facility] ([id number]) [address] [place] [address] 90159 Eosinophils/100 WBC (Bld) 2.5 % Normal [facility] Comment on above: Performed By: #### Yousif HERRERA [facility], 3039-11 #### [facility] ([id number]) [address] [place] [address] 59145 Erythrocyte distribution width (RBC) [Ratio] 13.0 % Normal 11.5-15.0 [facility] Comment on above: Performed By: #### Yousif HERRERA CMP, 3039-11 #### [facility] ([id number]) [address] [place] [address] 98994 Hematocrit (Bld) [Volume fraction] 47.6 % Normal 39-49 [facility] Comment on above: Performed By: #### Yousif HERRERA [facility], 3039-11 #### [facility] ([id number]) [address] [place] [address] 10404 Hemoglobin (Bld) [Mass/Vol] 16.2 g/dL Normal 13.0-17.0 [facility] Comment on above: Performed By: #### Yousif HERRERA CMP, 3039-11 #### [facility] ([id number]) [address] [place] [address] 34493 Lymphocytes (Bld) [#/Vol] 2.1 10*3/uL Normal 1.0-3.5 [facility] Comment on above: Performed By: #### Yousif HERRERA CMP, 3 #### [facility] ([id number]) [address] [place] [address] 91895 Lymphocytes/100 WBC (Bld) 19.2 % Normal [facility] Comment on above: Performed By: #### Yousfi HERRERA CMP, 3039-11 #### [facility] ([id number]) [address] [place] [address] 70250 MCH (RBC) [Entitic mass] 29.4 pg Normal 27-34 [facility] Comment on above: Performed By: #### Yousif HERRERA CMP, 3039-11 #### [facility] ([id number]) [address] [place] [address] 66341 MCHC (RBC) [Mass/Vol] 34.0 g/dL Normal 32-36 [facility] Comment on above: Performed By: #### Yousif HERRERA CMP, 3039-11 #### [facility] ([id number]) [address] [place] [address] 47611 MCV (RBC) [Entitic vol] 86 fL Normal 80-100 [facility] Comment on above: Performed By: #### Yousif HERRERA CMP, 3039-11 #### [facility] ([id number]) [address] [place] [address] 59027 Monocytes (Bld) [#/Vol] 1.3 10*3/uL High 0-0.9 [facility] Comment on above: Performed By: #### Yousif HERRERA CMP, 3039-11 #### [facility] ([id number]) [address] [place] [address] 65961 Monocytes/100 WBC (Bld) 11.6 % Normal [facility] Comment on above: Performed By: #### Yousif HERRERA CMP, 3039-11 #### [facility] ([id number]) [address] [place] [address] 86132 Neutrophils/100 WBC (Bld) 65.7 % Normal [facility] Comment on above: Performed By: #### Yousif HERRERA CMP, 3040-3 #### [facility] ([id number]) [address] [place] [address] 60279 Platelet mean volume (Bld) [Entitic vol] 8.4 fL Normal 7-12 [facility] Comment on above: Performed By: #### Yousif HERRERA CMP, 3039-3 #### [facility] ([id number]) [address] [place] [address] 55132 Platelets (Bld) [#/Vol] 470 10*3/uL High 150-450 [facility] Comment on above: Performed By: #### Yousif HERRERA CMP, 3039-3 #### [facility] ([id number]) [address] [place] [address] 48777 RBC COUNT 5.52 X10E12/L Normal 4.10-5.70 [facility] Comment on above: Performed By: #### Yousif HERRERA CMP, 3 #### [facility] ([id number]) [address] [place] [address] 22508 WBC (Bld) [#/Vol] 11.1 10*3/uL High 4.0-11.0 [facility] Comment on above: Performed By: #### Yousif HERRERA CMP, 3039-3 #### [facility] ([id number]) [address] [place] [address] 21823 COMPREHENSIVE METABOLIC PANE Brian 07-24-2024 Albumin [Mass/Vol] 4.3 g/dL Normal 3.2-5.3 [facility] Comment on above: Performed By: #### Yousif HERRERA CMP, 3039-3 #### [facility] ([id number]) [address] [place] [address] 55524 ALP [Catalytic activity/Vol] 63 U/L Normal 39-130 [facility] Comment on above: Performed By: #### Yousif HERRERA CMP, 3039-3 #### [facility] ([id number]) [address] [place] [address] [place] [address] ALT [Catalytic activity/Vol] 25 U/L Normal 0-40 [facility] Comment on above: Performed By: #### C JAVIER, CMP, 0-3 #### [facility] ([id number]) [address] [place] [address] 81040 Anion gap [Moles/Vol] 9 mmol/L Normal 5-15 [facility] Comment on above: Performed By: #### C JAVIER, CMP, 3039-3 #### [facility] ([id number]) [address] [place] [address] 54235 AST [Catalytic activity/Vol] 23 U/L Normal 0-41 [facility] Comment on above: Performed By: #### Yousif HERRERA CMP, 3039-3 #### [facility] ([id number]) [address] [place] [address] [place] [address] Bilirubin [Mass/Vol] 1.4 mg/dL High 0.3-1.2 [facility] Comment on above: Performed By: #### Yousif HERRERA, CMP, 3039-3 #### [facility] ([id number]) [address] [place] [address] 40906 Calcium [Mass/Vol] 10.1 mg/dL Normal 8.5-10.5 [facility] Comment on above: Performed By: #### Yousif HERRERA, CMP, 3039-3 #### [facility] ([id number]) [address] [place] [address] [place] [address] Chloride [Moles/Vol] 104 mmol/L Normal 98-109 [facility] Comment on above: Performed By: #### Yousif BCA, CMP, 0-3 #### [facility] ([id number]) [address] [place] [address] 09807 CO2 [Moles/Vol] 22 mmol/L Normal 22-32 [facility] Comment on above: Performed By: #### C JAVIER [facility], 3040-3 #### [facility] ([id number]) [address] [place] [address] 08102 Creatinine [Mass/Vol] 1.05 mg/dL Normal 0.70-1.20 [facility] Comment on above: Result Comment: METH OD TRACEABLE TO IDMS STANDARD Performed By: #### C ANTONIETTA HERRERA, 3039-3 #### [facility] ([id number]) [address] [place] [address] 78176 GFR/1.73 sq M.predicted among non-blacks MDRD (S/P/Bld) [Vol rate/Area] 87 mL/min/{1.73_m2} Normal >59 [facility] Comment on above: Result Comment: Reported eGFR is based on the CKD-EPI 2020 equation that does not use a race coefficient. Performed By: #### C ANTONIETTA HERRERA, 3 #### [facility] ([id number]) [address] [place] [address] 84403 Glucose [Mass/Vol] 113 mg/dL High 65-99 [facility] Comment on above: Performed By: #### C ANTONIETTA HERRERA, 3039-3 #### [facility] ([id number]) [address] [place] [address] 27893 Potassium [Moles/Vol] 3.7 mmol/L Normal 3.5-5.0 [facility] Comment on above: Performed By: #### C JAVIER CMP, 0-3 #### [facility] ([id number]) [address] [place] [address] 15931 Protein [Mass/Vol] 7.9 g/dL Normal 6.0-8.0 [facility] Comment on above: Performed By: #### C JAVIER CMP, 3039-3 #### [facility] ([id number]) [address] [place] [address] Sodium [Moles/Vol] 135 mmol/L Normal 134-146 [facility] Comment on above: Performed By: #### C BCA, [facility], 3040-3 #### [facility] ([id number]) [address] [place] [address] Urea nitrogen [Mass/Vol] 13 mg/dL Normal 5-23 [facility] Comment on above: Performed By: #### C BCA, [facility], 3040-3 #### [facility] ([id number]) [address] [place] [address] CT ABDOMEN AND PELVIS W CONT on [...] Findings Committee. J Am Ag Radiol. 2017 Apr;14(8):4154-7353. THIS REPORT CONTAINS A SIGNIFICANT RESULT AND/OR RECOMMENDATION, WHICH REQUIRES THE ATTENTION OF THE LICENSED CAREGIVER RESPONSIBLE FOR THIS PATIENT. THEREFORE, I SPECIFICALLY DESIGNATED THIS REPORT TO BE TELEPHONED BY THE RADIOLOGY DEPARTMENT. FINDINGS WERE INSTRUCTED TO BE CALLED TO THE CLINICAL SERVICE ON 07/24/2024 4:17 PM Finalized by Daniel Mcallister on 07/24/2024 4:17 PM Normal [facility] LIPASEon 07-24-2024 Lipase [Catalytic activity/Vol] 22 U/L Normal 17-40 [facility] Comment on above: Performed By: #### C BCA, CMP, 3040-3 #### [facility] ([id number]) [address] [place] [address], [address] 9-10 Nerveson 07-17-2024 [facility] 07-12-2024 Outside Records [id number]#1 .00OTGTIFF Normal [facility] Patient Letteron 07-03-2024 Patient Letter [id number]#1.0 0[facility] [place] -12 Nerveson [facility] 05-03-2024 Outside Records [id number]#1.[address] [facility] 04-24-2024 Outside Records [id number]#1.0 0[facility] Rad - Other Radiology Report on 04-24-2024 Rad - Other Radiology Report [id number]#1.0 0[facility] Patient Letteron 04-11-2024 Patient Letter [id number]#1.0 0[facility] Outside Recordson 04-05-2024 Outside Records [id number]#1.[address] [facility] Outside Records [id number]#1.00 [facility] Rad - Other Radiology Report on 04-02-2024 Rad - Other Radiology Report [id number]#1.0 0[facility] LUMBAR SPINE 6 OR MORE [facility] 01-14-2022 LUMBAR SPINE 6 OR MORE S [facility] Department of Radiology [address] [place] [id number] ======== Patient Name: RICCARDO HALE : 1975 Sex: M Age: Race: [...] , Ordering Provider - A JER LOPEZ REGISTERED NURSE TEACHER , Exam: LUMBAR SPINE 6 OR MORE [...] no focal abnormality evident radiographically. Electronically signed: Irma York. Transcribed by: [email or web address], User Resident: Electronically Signed by: IRMA YORK @ 01/15/2022 11:40 AM Normal [facility] Comment on above: Order Comment: , ap, lat, flex, ex, obliques, r/o instability or pars defect , Views (X-RAY, LUMBAR SPINE): AP, Lateral, L5-S1 Spot, Obliques, Flexion, Extension , ap, lat, flex, ex, obliques, r/o instability or pars defect , Views (X-RAY, LUMBAR SPINE): AP, Lateral, L5-S1 Spot, Obliques, Flexion, Extension , , , Ordering Provider - Sherice LOPEZ REGISTERED NURSE TEACHER , Vital Signs Date Time Vital Sign Value Performing Clinician Facility 04-17-2025 09:31-0400 Body height 175.26 cm Temi Marshall APRN Work Phone: [facility] 04-17-2025 09:31-0400 Body mass index (BMI) [Ratio] 49.4 kg/m2 Temi Marshall APRN Work Phone: [facility] 04-17-2025 09:31-0400 Body temperature 98 [degF] Temi Marshall APRN Work Phone: [facility] 04-17-2025 09:31-0400 Body weight 151.95 kg Temi Marshall APRN Work Phone: [facility] 04-17-2025 09:31-0400 Diastolic blood pressure 84 mm[Hg] Temi Marshall APRN Work Phone: [facility] 04-17-2025 09:31-0400 Heart rate 86 /min Temi Marshall APRN Work Phone: [facility] 04-17-2025 09:31-0400 SaO2% (BldA) [Mass fraction] 94 % Temi Marshall APRN Work Phone: [facility] 04-17-2025 09:31-0400 Systolic blood pressure 132 mm[Hg] Temi Marshall APRN Work Phone: [facility] 03-27-2025 08:41-0400 Body height 175.3 cm Beto Reyes MD Work Phone: [facility] 03-27-2025 08:41-0400 Body mass index (BMI) [Ratio] 47.99 kg/m2 Beto Reyes MD Work Phone: [facility] 03-27-2025 08:41-0400 Body weight 147.42 kg Beto Reyes MD Work Phone: [facility] 03-27-2025 08:41-0400 Diastolic blood pressure 78 mm[Hg] Beto Reyes MD Work Phone: [facility] 03-27-2025 08:41-0400 Heart rate 104 /min Beto Reyes MD Work Phone: [facility] 03-27-2025 08:41-0400 Systolic blood pressure 138 mm[Hg] Beto Reyes MD Work Phone: [facility] 02-20-2025 10:21-0400 Body height 175.3 cm Beto Reyes MD Work Phone: [facility] 02-20-2025 10:21-0400 Body mass index (BMI) [Ratio] 48.29 kg/m2 Beto Reyes MD Work Phone: [facility] 02-20-2025 10:21-0400 Body weight 148.33 kg Beto Reyes MD Work Phone: [facility] 02-20-2025 10:21-0400 Diastolic blood pressure 86 mm[Hg] Beto Reyes MD Work Phone: [facility] 02-20-2025 10:21-0400 Heart rate 74 /min Beto Reyes MD Work Phone: [email or web address] 02-20-2025 10:21-0400 Systolic blood pressure 126 mm[Hg] Beto Reyes MD Work Phone: [email or web address] 07-19-2024 10:32-0400 Body height 175.3 cm Pascale Lowe PA Work Phone: [email or web address] 07-19-2024 10:32-0400 Body mass index (BMI) [Ratio] 45.63 kg/m2 Pascale Lowe PA Work Phone: [email or web address] 07-19-2024 10:32-0400 Body weight 140.16 kg Pascale Lowe PA Work Phone: [email or web address] 07-19-2024 10:32-0400 Diastolic blood pressure 86 mm[Hg] Pascale Lowe PA Work Phone: [email or web address] 07-19-2024 10:32-0400 Systolic blood pressure 130 mm[Hg] Pascale Lowe PA Work Phone: [facility] [email or web address] 09-23-2023 10:05-0500 Body height Abbey Sharda Other [employer] Other 09-23-2023 10:05-0500 Body mass index (BMI) [Ratio] 44.21 kg/m2 Abbey Sharda Other [employer] Other 09-23-2023 10:05-0500 Body temperature 98.6 [degF] Abbey Sharda Other [employer] Other 09-23-2023 10:05-0500 Body weight 135.81 kg Abbey Sharda Other [employer] Other 09-23-2023 10:05-0500 Diastolic blood pressure 82 mm[Hg] Abbey Sharda Other [employer] Other 09-23-2023 10:05-0500 Respiratory rate 18 /min Abbey Robin Other [employer] Other 09-23-2023 10:05-0500 SaO2% (BldA) [Mass fraction] 95 % Abbey Robin Other [employer] Other 09-23-2023 10:05-0500 Systolic blood pressure 152 mm[Hg] Abbey Robin Other [employer] Other 04-15-2023 10:30-0400 Body height Marisol Zelaya Other [employer] Other 04-15-2023 10:30-0400 Body mass index (BMI) [Ratio] 45.33 kg/m2 Marisol Zelaya Other [employer] Other 04-15-2023 10:30-0400 Body temperature 97.6 [degF] Marisol Zelaya Other [employer] Other 04-15-2023 10:30-0400 Body weight 139.26 kg Marisol Zelaya Other [employer] Other 04-15-2023 10:30-0400 Diastolic blood pressure 80 mm[Hg] Marisol Zelaya Other [employer] Other 04-15-2023 10:30-0400 Respiratory rate 18 /min Marisol Zelaya Other [employer] Other 04-15-2023 10:30-0400 SaO2% (BldA) [Mass fraction] 98 % Marisol Zelaya Other [employer] Other 04-15-2023 10:30-0400 Systolic blood pressure 125 mm[Hg] Marisol Zelaya Other [email or web address] Other Encounters Encounter Date Encounter Type Care Provider Facility Start: 04-17-2025 End: 04-17-2025 ambulatory Temi Marshall APRN Work Phone: [facility] Work Phone: Start: 04-17-2025 End: 04-17-2025 Patient encounter procedure Temi Marshall APRN [facility] Work Phone: Start: 04-10-2025 Non-patient / Non-visit [facility] Work Phone: Start: 03-27-2025 End: 03-27-2025 Olga Reyes MD Work Phone: [facility] Start: 03-27-2025 End: 03-27-2025 Olga Reyes MD Work Phone: [facility] Start: 03-27-2025 End: 03-27-2025 Office outpatient visit 15 minutes Beto Reyes MD Work Phone: [facility] Comment on above: Bilateral impacted c erumen (Primary Dx); Rhinitis medicamentosa Start: 03-27-2025 End: 03-27-2025 ambulatory BETO REYES Not Available Start: 03-07-2025 End: 03-07-2025 ambulatory MILAN NAILS Facility:[facility] Start: 02-21-2025 ambulatory MILAN NAILS Facilit y:[facility] Start: 02-20-2025 End: 02-20-2025 Olga Reyes MD Work Phone: [facility] Start: 02-20-2025 End: 02-20-2025 Olga Reyes MD Work Phone: [facility] Start: 02-20-2025 End: 02-20-2025 Office outpatient new 45 minutes Beto Reyes MD Work Phone: [facility] Comment on above: Rhinitis medicamento sa (Primary Dx); Bilateral impacted cerumen Start: 02-20-2025 End: 02-21-2025 ambulatory MILAN Medina [place] Facility: [facility] Start: 02-06-2025 End: 02-06-2025 Office outpatient new 30 minutes Blair Gan [employer]IEF [employer] DIRECT[employer] Work Phone: [facility] Comment on above: Carpal tunnel syndro me of left wrist; Carpal tunnel syndrome of right wrist Start: 02-06-2025 End: 02-06-2025 ambulatory BLAIR GAN Not Available Start: 02-06-2025 End: 02-06-2025 Bamboo flowsheet Blair Gan CHIEF [employer] DIRECTOR Work Phone: [facility] Start: 02-06-2025 End: 02-06-2025 Bamboo flowsheet Blair Gan [employer]IEF [employer] DIRECTOR Work Phone: [facility] Start: 02-04-2025 ambulatory DO MILAN Medina [place] Faci lity: [facility] Start: 01-03-2025 End: 01-03-2025 Refill Pascale Lowe PA Work Phone: [facility] [place] Comment on above: Chronic bilateral lo w back pain, unspecified whether sciatica present Start: 12-03-2024 End: 12-03-2024 Bamboo flowsheet Pascale Lowe PA Work Phone: [facility] [place] Start: 12-03-2024 End: 12-03-2024 Bamboo flowsheet Pascale Lowe PA Work Phone: [facility] [place] Start: 12-03-2024 End: 12-03-2024 ambulatory PASCALE LOWE Not Available Start: 11-28-2024 End: 12-03-2024 Telephone encounter Carina Stanton OT Work Phone: [facility] Comment on above: re: referral for FCE ; re: FCE Start: 11-15-2024 End: 11-15-2024 ambulatory DO MILAN NAILS Facility:[facility] Start: 11-01-2024 End: 11-01-2024 Eliezer Patrick MD Work Phone: [facility] [place] Comment on above: Low back pain, unspe cified back pain laterality, unspecified chronicity, unspecified whether sciatica present Start: 10-02-2024 ambulatory DO MILAN NAILS Faci lity:[facility] Start: 08-09-2024 End: 08-09-2024 ambulatory MILAN NAILS Facility:[facility] Start: 07-24-2024 End: 07-27-2024 Evaluation and management of inpatient MILAN NAILS [facility] Start: 07-19-2024 End: 07-19-2024 Office outpatient visit 25 minutes Pascale BRADSHAW [facility] [address] Comment on above: Carpal tunnel syndro me on both sides (Primary Dx); Chronic bilateral low back pain, unspecified whether sciatica present; Lumbar disc herniation Start: 07-19-2024 End: 07-19-2024 ambulatory PASCALE SOUZA Not Available Start: 07-17-2024 End: 07-17-2024 Bamboo flowsheet Maurizio Patrick MD [facility] Start: 07-17-2024 End: 07-17-2024 Bamalvaroo flowsheet Maurizio Patrick MD [facility] Start: 07-17-2024 End: 07-17-2024 ambulatory MAURIZIO PATRICK Not Available Start: 07-17-2024 End: 07-17-2024 Patient encounter procedure Maurizio Patrick MD [facility] Comment on above: Lumbar radiculopathy (Primary Dx); Low back pain, unspecified back pain laterality, unspecified chronicity, unspecified whether sciatica present Start: 07-02-2024 End: 07-02-2024 ambulatory MILAN NAILS Facility:[facility] Start: 06-28-2024 ambulatory MILAN NAILS Facilit y:[facility] Start: 05-24-2024 End: 05-24-2024 Bamboo flowsheet Maurizio Patrick MD Work Phone: [facility] Start: 05-24-2024 End: 05-24-2024 Bamboo flowsheet Maurizio Patrick MD Work Phone: [facility] Start: 05-24-2024 End: 05-24-2024 Patient encounter procedure Maurizio Patrick MD Work Phone: [facility] Comment on above: Carpal tunnel syndro me on both sides (Primary Dx) Start: 05-24-2024 End: 05-24-2024 ambulatory MAURIZIO PATRICK Not Available Start: 04-18-2024 End: 04-18-2024 ambulatory MILAN P HOUSE Facility:[facility] Start: 04-18-2024 End: 04-18-2024 ambulatory PASCALE SOUZA Not Available Start: 04-09-2024 End: 04-09-2024 ambulatory DO MILAN P HOUSE Facility:[facility] Start: 09-23-2023 End: 09-23-2023 ambulatory Abbey Robin Other [employer] Other Start: 09-23-2023 Office outpatient vi sit 15 minutes Abbey Robin [facility] [place] Start: 04-15-2023 End: 04-15-2023 ambulatory Marisol Zelaya Other [employer] Other Start: 04-15-2023 Office outpatient ne w 20 minutes Marisol Zelaya [facility] [place] Start: 02-15-2023 End: 02-16-2023 ambulatory NARENDRANATH LAKSHMIPATHY . Facility: Start: 02-01-2023 End: 02-01-2023 ambulatory NARENDRANATH LAKSHMIPATHY . Facility: Start: 01-06-2023 End: 01-07-2023 ambulatory KALI CONWAY [...] LUCY GIL . Facility: Start: 03-09-2018 Ambulatory DALLASCorrie LU Facility :[id number] Start: 03-08-2018 Ambulatory DALLAS LU Facility :[id number] Procedures Date Procedure Procedure Detail Performing Clinician Start: 07-17-2024 Nerve conduction catina dies 9-10 studies Maurizio Patrick MD Work Phone: Start: 05-24-2024 Nerve conduction catina dies 11-12 studies Maurizio Patrick MD Work Phone: Plan of Treatment Date Care Activity Detail Author Start: 04-04-2025 End: 04-04-2025 Patient encounter procedure 04/04/2025 11:00 AM EDT Office Visit [facility] [address] [place] [phone] Pascale Souza PA [address] [place] [address] [facility] Start: 03-27-2025 End: 03-27-2025 Patient encounter procedure 03/27/2025 8:40 AM EDT Office Visit [facility] [address] [place] [address] Beto Reyes MD [address] [place], [place] [id number] Arrived [facility] Comment on above: Arrived Start: 02-22-2025 End: 02-22-2025 Patient encounter procedure 02/22/2025 9:00 AM EDT Office Visit [facility] [address] [place] [id number] Tracie Montiel, [address] [place] [address] [facility] Start: 02-20-2025 End: 02-20-2025 Patient encounter procedure 02/20/2025 10:30 AM EDT Office Visit [facility] [address] [place] [phone] Beto Reyes MD [address] [facility] [address] [place] [address] Arrived [facility] Comment on above: Arrived Start: 02-06-2025 End: 02-06-2025 Patient encounter procedure 02/06/2025 2:30 PM EDT Office Visit [facility] [address] [place] [address] Blair Gan, CHIEF PORT DIRECTOR [address] [place] [address] Arrived [facility] Comment on above: Arrived Start: 12-03-2024 End: 12-03-2024 Patient encounter procedure [facility] Comment on above: Arrived Start: 10-10-2024 End: 10-10-2024 Patient encounter procedure 10/10/2024 1:40 PM EST Office Visit [facility] [place] [address] [place] [phone] Pascale Souza PA [address] [place] [address] [facility] [place] [address] Start: 07-19-2024 End: 07-19-2024 Patient encounter procedure 07/19/2024 10:40 AM EDT Office Visit [facility] [address] [place] [phone] Pascale Souza PA [address] [place] [address] [facility] [address] Start: 06-19-2024 End: 06-19-2024 Patient encounter procedure 06/19/2024 1:00 PM EDT Office Visit [facility] [address] [place] [phone] Pascale Souaz PA [address] [place] [address] [facility] [address] Start: 06-13-2024 End: 06-13-2024 Patient encounter procedure 06/13/2024 1:00 PM EDT [facility] [address] [facility] [address] [place] [phone] Maurizio Patrick MD [address] [place] [address] [facility] Start: 05-24-2024 End: 05-24-2024 Patient encounter procedure 05/24/2024 8:30 AM EDT Procedure Visit [facility] [address] [place] [address] Maurizio Patrick MD [address] [place] [address] Arrived [facility] [address] Comment on above: Arrived EMG 2 Extremities EMG 2 Extremit ies Neurology Routine Carpal tunnel syndrome on both sides Ordered: 05/24/2024 [facility] Work Phone: Comment on above: Ordered: 05/24/2024 Payers Date Payer Category Payer Medicare [facility] MEDICARE UHC DUAL COMPLETE [id number] 2023-Present [address] [place] [address] [id number] 2023 Medicare (Managed Care) [facility] MEDICARE [id number] 2021 Medicare [id number] 2.16.840.1.014512.19 1974 Unknown [id number] 2.16.840.1.930337.3.579.2 .593 1974 Unknown [id number] 2.16.840.1.224036.3.579.2 .593 1974 Unknown [id number] 2.16.840.1.836693.3.579.2 .593 1974 Unknown [id number] 2.16.840.1.598662.3.579.2 .593 1974 Unknown [id number] 2.16.840.1.750413.3.579.2 .593 1974 Unknown [id number] 2.16.840.1.371949.3.579.2 .593 1974 Unknown [id number] 2.16.840.1.421065.3.579.2 .593 1974 Unknown [id number] 2.16.840.1.859584.3.579.2 .593 1974 Unknown [id number] 2.16.840.1.644536.3.579.2 .593 1974 Unknown [id number] 2.16.840.1.826881.3.579.2 .593 1974 Unknown [id number] 2.16.840.1.968153.3.579.2 .593 1974 Unknown [id number] 2.16.840.1.989470.3.579.2 .593 1974 Unknown [id number] 2.16.840.1.192915.3.579.2 .59 1974 Unknown [id number] 2.16.840.1.498798.3.579.2 .1286 1974 Unknown [id number] 2.16.840.1.761857.3.579.2 .1974 Unknown [id number] 2.16.840.1.253122.3.579.2 .71 1974 Unknown [id number] 2.16.840.1.023676.3.579.2 .1974 Unknown [id number] 2.16.840.1.524583.3.579.2 .1974 Unknown [id number] 2.16.840.1.456072.3.579.2 .71 1974 Unknown [id number] 2.16.840.1.591985.3.579.2 .1974 Unknown [id number] 2.16.840.1.679149.3.579.2 .1974 Unknown [id number] 2.16.840.1.667957.3.579.2 .1974 Unknown [id number] 2.16.840.1.734909.3.579.2 .1974 Unknown [id number] 2.16.840.1.352829.3.579.2 .1974 Unknown [id number] 2.16.840.1.179718.3.579.2 .718 1974 Unknown [id number] 2.16.840.1.883012.3.579.2 .718 1974 Unknown [id number] 2.16.840.1.908081.3.579.2 .9 1974 Unknown [id number] 2.16.840.1.379214.3.579.2 .1258 1974 Unknown [id number] 2.16.840.1.088286.3.579.2 .1258 1974 Unknown [id number] 2.16.840.1.867519.3.579.2 .1258 1974 Unknown [id number] 2.16.840.1.705152.3.579.2 .1258 1974 Unknown [id number] 2.16.840.1.874336.3.579.2 .1258 1974 Unknown [id number] 2.16.840.1.720324.3.579.2 .1258 1974 Unknown [id number] 2.16.840.1.358040.3.579.2 .9 1960 Medicare [id number] Private Health Insurance [facility] [place] [id number] Unknown [id number] Social History Date Type Detail Facility Unknown if ever smoked [facility] Other Start: 04-11-2024 End: 02-20-2025 Sex Assigned At [facility] Other Start: 04-11-2024 Tobacco smoking stat [facility] Never smoked tobacco [facility] Start: 04-11-2024 Tobacco use and exposure Smokeless tobacco non-user [facility] Start: 04-11-2024 End: 12-03-2024 Alcoholic beverage intake Lifetime non-drinker (finding) [facility] Start: 04-11-2024 End: 06-04-2025 History of Social function [facility] Start: 1975 Sex assigned at Not on file [facility] Start: 02-05-2025 End: 04-17-2025 Tobacco smoking status NHIS Ex-smoker [facility] History of tobacco use Current smoker [facility] History of tobacco use Cigarette Smoker [facility] Start: 02-05-2025 End: 02-20-2025 Alcoholic beverage intake Ex-drinker (finding) [facility] Sex Male (finding) [facility] Start: 1975 Sex Assigned At Male [facility] Clinical Notes 04-15-2022 to 03-27-2025 Beto Reyes MD - 03/27/2025 8:40 AM EDSushil Reyes MD - 02/20/2025 10:30 AM EDTGtravis Gan NP - 02/06/2025 2:30 PM EDTTelephone Encounter - Colby Marc MA - 01/03/2025 11:16 AM EDT Note Date & Type Note Facility 03-27-2025 History of Presen t illness Narrative Subjective Patient ID: Riccardo Hale is a 49 y.o. male who presents for Rhinitis medicamentosa (1 month check nose and clean ears) Pt states he was successful getting off afrin and sinuses feel much better Family History Problem Relation Name Age of Onset Arthritis Mother Smita Rheum arthritis Mother Smita COPD Mother Smita Depression Mother Smita Hypertension Mother Smita Sleep apnea Mother Smita Neuropathy Mother Smita COPD Other Diabetes Other Hypertension Other Active Ambulatory Problems Diagnosis Date Noted Sensory ataxia 04/11/2024 Back pain 04/11/2024 Lumbosacral radiculopathy 04/11/2024 Neuropathy 04/11/2024 DDD (degenerative disc disease), lumbar 04/11/2024 Lumbar disc herniation 04/11/2024 Lumbar radiculopathy 04/11/2024 Leg numbness 04/11/2024 Arthropathy of left hip 02/19/2025 Chronic obstructive pulmonary disease, unspecified (HCC) 02/19/2025 GERD (gastroesophageal reflux disease) 07/25/2024 Hyperlipidemia 07/25/2024 Hypertension 07/25/2024 Ileus (HCC) 07/24/2024 Migraine 02/19/2025 Nausea and vomiting 07/25/2024 Morbid (severe) obesity due to excess calories ([facility]) 02/19/2025 Resolved Ambulatory Problems Diagnosis Date Noted No Resolved Ambulatory Problems Past Medical History: Diagnosis Date Chronic sinusitis Numbness GRACIE (obstructive sleep apnea) Peripheral neuropathy Umbilical hernia Past Surgical History: Procedure Laterality Date ADENOIDECTOMY TONSILLECTOMY No Known Allergies Current Outpatient Medications on File Prior to Visit Medication Sig Dispense Refill albuterol HFA 90 mcg/act inhaler Inhale 2 puffs every 6 (six) hours if needed baclofen (Lioresal) 10 MG tablet TAKE 1 TABLET BY MOUTH IN THE MORNING then TAKE 1 TABLET BY MOUTH at noon then TAKE 1 TABLET BY MOUTH IN THE EVENING then TAKE 1 TABLET BY MOUTH BEFORE bedtime 120 tablet 0 diclofenac (Voltaren) 75 MG EC tablet Take 75 mg by mouth 2 (two) times a day as needed DULoxetine (Cymbalta) [address] capsule Take 60 mg by mouth Daily fexofenadine (Leigh) 180 MG tablet Take 180 mg by mouth Daily fluticasone (Flonase) 50 MCG/ACT nasal spray Administer 2 sprays into each nostril Daily Shake gently. Before first use, prime pump. After use, clean tip and replace cap. 48 g 3 HYDROcodone-acetaminophen ([place]) 5-325 MG tablet 1 tablet every 6 (six) hours if needed for severe pain lisinopril 20 MG tablet Take 20 mg by mouth Daily omeprazole (PriLOSEC) [address] capsule Take 20 mg by mouth Daily ondansetron ODT (Zofran-ODT) 4 MG disintegrating tablet 4 mg pregabalin (Lyrica) 200 MG capsule Take 1 capsule (200 mg) by mouth in the morning and 1 capsule (200 mg) in the evening and 1 capsule (200 mg) before bedtime. Due now. 270 capsule 1 propranolol LA (Inderal LA) 80 MG 24 hr capsule Take 80 mg by mouth Daily SUMAtriptan (Imitrex) 100 MG tablet Take 100 mg by mouth 1 (one) time if needed for migraine [DISCONTINUED] phentermine (Adipex-P) 37.5 MG tablet 37.5 mg No current facility-administered medications on file prior to visit. Objective Last Recorded Vitals Vitals: 03/27/25 0841 BP: 138/78 Pulse: 104 ENT Physical Exam Ear Ear Canals: bilateral ear canals impacted cerumen observed; Tympanic Membranes: right tympanic membrane normal; left tympanic membrane normal; Assessment/Plan Diagnoses and all orders for this visit: Bilateral impacted cerumen Rhinitis medicamentosa Excellent response to weaning off afrin. Continue flonase daily and hypertonic saline irrigations prn. documented in this encounter [facility] 03-04-2025 Note Entered by DYLAN NAILS DO on March 04, 2025 07:38:09 EDT From: MILAN NAILS DO To: [id number] Sent: 03/04/2025 07:38:08 EDT Subject: Medication Management Submitted: Complete:SUMAtriptan (SUMAtriptan 100 mg oral tablet) Signed by MILAN NAILS DO 03/04/2025 07:38:00 EDT Submitted: Complete:propranolol (propranolol 80 mg oral capsule, extended release) Signed by MILAN NAILS DO 03/04/2025 07:38:00 EDT Submitted: Complete:albuterol (Albuterol (Eqv-ProAir HFA) 90 mcg/inh inhalation aerosol) Signed by MILAN NAILS DO 03/04/2025 07:38:00 EDT Approved with modifications: propranolol (propranolol ER 80 mg capsule,24 hr,extended release) TAKE 1 CAPSULE BY MOUTH DAILY Qty: 30 cap(s) Days Supply: 30 Refills: 5 Substitutions Allowed Route To Pharmacy - [id number] Approved with modifications: SUMAtriptan (sumatriptan 100 mg tablet) TAKE 1 TABLET BY MOUTH DAILY Qty: 12 EA Days Supply: 30 Refills: 5 Substitutions Allowed Route To Pharmacy - [facility] Approved with modifications: albuterol (albuterol sulfate HFA 90 mcg/actuation aerosol inhaler) INHALE 2 PUFFS BY MOUTH EVERY 6 HOURS NEEDED Qty: 8.5 gm Days Supply: 25 Refills: 5 Substitutions Allowed Route To Pharmacy - [id number] -------- From: [id number] To: MILAN NAILS DO Sent: March 02, 2025 4:22:49 PM CDT Subject: Medication Management Due: March 03, 2025 12:20:41 AM CDT On Hold Pending Signature Drug: propranolol (propranolol [...] MOUTH DAILY Quantity: 12 EA Days Supply: 30 Refills: 5 Substitutions Allowed Notes from Pharmacy: On Hold Pending Signature Drug: albuterol (Albuterol [...] 5 Substitutions Allowed Notes from Pharmacy: -------- [facility] 02-22-2025 Note [id number] SUR[facility]ERY Clinical Discharge Summary PERSON INFORMATION Name RICCARDO HALE Age 49 Years 1975 Sex MALE Language Kazakh PCP MILAN NAILS DO Marital Status Single [facility] Acct# Arrival 02/21/2025 06:22:54 Visit Reason SURGERY - COLONOSCOPY - SCREENING Acuity LOS 015 21:32 Address: [address] [place] [address] Comment: PROVIDER INFORMATION VITALS INFORMATION Vital Sign Triage Latest Temp Oral Temp Temporal Temp Intravascular Temp Axillary Temp Rectal 02 Sat 94 % 99 % Respiratory Rate Peripheral Pulse Rate Apical Heart Rate Blood Pressure / 94 mmHg / 69 mmHg Comment: MEDICAL INFORMATION Allergy Info: No known allergies Prescriptions Given: acetaminophen-hydrocodone (acetaminophen-hydrocodone 325 mg-5 mg oral tablet) TAKE 1 TABLET BY MOUTH THREE TIMES DAILY NEEDED for spondylosis without myelopathy. albuterol (Albuterol (Eqv-ProAir HFA) 90 mcg/inh inhalation aerosol) 2 puff(s) Inhale (breathe in) every 6 hours. as needed. Refills: 5. ascorbic acid (Vitamin C 1000 mg oral tablet) 1 tab(s) Oral (given by mouth) every day. cyanocobalamin (Vitamin B12 1000 mcg oral tablet) 1 tab(s) Oral (given by mouth) every day. diclofenac (diclofenac sodium 75 mg oral delayed release tablet) 1 tab(s) Oral (given by mouth) 2 times per day as needed as needed for arthritis. DULoxetine (DULoxetine 60 mg oral delayed release capsule) 1 cap(s) Oral (given by mouth) every day. Refills: 5. Durable Medical Equipment for Prescription (baclofen 10 mg tablet) TAKE 1 TABLET BY MOUTH THREE TIMES DAILY NEEDED. fexofenadine (fexofenadine 180 mg oral tablet) 1 tab(s) Oral (given by mouth) every day. Refills: 5. lisinopril (lisinopril 20 mg oral tablet) 1 tab(s) Oral (given by mouth) every day. Refills: 1. multivitamin (Multivitamin, generic) 1 tab(s) Oral (given by mouth) every day. omeprazole (omeprazole 20 mg oral delayed release capsule) 1 cap(s) Oral (given by mouth) every day. Refills: 5. phentermine (Adipex-P 37.5 mg oral tablet) 1 tab(s) Oral (given by mouth) every day. Refills: 0. pregabalin (pregabalin 200 mg oral capsule) TAKE 1 CAPSULE BY MOUTH THREE TIMES DAILY. propranolol (propranolol 80 mg oral capsule, extended release) 1 cap(s) Oral (given by mouth) every day. Refills: 5. SUMAtriptan (SUMAtriptan 100 mg oral tablet) 1 tab(s) Oral (given by mouth) every day. Refills: 5. Template Non-Formulary (Vitamin D) 1 tab(s) Oral (given by mouth) every day. vitamin A 1 tab(s) Oral (given by mouth) every day. Medication List: Medications to Continue That Have Not Changed Other Medications acetaminophen-hydrocodone (acetaminophen-hydrocodone 325 mg-5 mg oral tablet) TAKE 1 TABLET BY MOUTH THREE TIMES DAILY NEEDED for spondylosis without myelopathy. albuterol (Albuterol (Eqv-ProAir HFA) 90 mcg/inh inhalation aerosol) 2 puff(s) Inhale (breathe in) every 6 hours. as needed. Refills: 5. ascorbic acid (Vitamin C 1000 mg oral tablet) 1 tab(s) Oral (given by mouth) every day. cyanocobalamin (Vitamin B12 1000 mcg oral tablet) 1 tab(s) Oral (given by mouth) every day. diclofenac (diclofenac sodium 75 mg oral delayed release tablet) 1 tab(s) Oral (given by mouth) 2 times per day as needed as needed for arthritis. DULoxetine (DULoxetine 60 mg oral delayed release capsule) 1 cap(s) Oral (given by mouth) every day. Refills: 5. Durable Medical Equipment for Prescription (baclofen 10 mg tablet) TAKE 1 TABLET BY MOUTH THREE TIMES DAILY NEEDED. fexofenadine (fexofenadine 180 mg oral tablet) 1 tab(s) Oral (given by mouth) every day. Refills: 5. lisinopril (lisinopril 20 mg oral tablet) 1 tab(s) Oral (given by mouth) every day. Refills: 1. multivitamin (Multivitamin, generic) 1 tab(s) Oral (given by mouth) every day. omeprazole (omeprazole 20 mg oral delayed release capsule) 1 cap(s) Oral (given by mouth) every day. Refills: 5. phentermine (Adipex-P 37.5 mg oral tablet) 1 tab(s) Oral (given by mouth) every day. Refills: 0. pregabalin (pregabalin 200 mg oral capsule) TAKE 1 CAPSULE BY MOUTH THREE TIMES DAILY. propranolol (propranolol 80 mg oral capsule, extended release) 1 cap(s) Oral (given by mouth) every day. Refills: 5. SUMAtriptan (SUMAtriptan 100 mg oral tablet) 1 tab(s) Oral (given by mouth) every day. Refills: 5. Template Non-Formulary (Vitamin D) 1 tab(s) Oral (given by mouth) every day. vitamin A 1 tab(s) Oral (given by mouth) every day. Medications to Continue That Have Not Changed Other Medications acetaminophen-hydrocodone (acetaminophen-hydrocodone 325 mg-5 mg oral tablet) TAKE 1 TABLET BY MOUTH THREE TIMES DAILY NEEDED for spondylosis without myelopathy. albuterol (Albuterol (Eqv-ProAir HFA) 90 mcg/inh inhalation aerosol) 2 puff(s) Inhale (breathe in) every 6 hours. as needed. Refills: 5. ascorbic acid (Vitamin C 1000 mg oral tablet) 1 tab(s) Oral (given by mouth) every day. cyanocobalamin (Vitam (more content not included)... [facility] 02-20-2025 History of Presen t illness Narrative Subjective Patient ID: Riccardo Hale is a 49 y.o. male who presents for Sinusitis Pt reports a 3-4 year h/o nasal and periorbital pressure, nasal obstruction. Uses decongestant spray 4 times daily. Also tx with flonase and leigh. No abx. No allergy eval. 11/15 CT sinus shows mild sinus dz. Review of Systems All other systems reviewed and are negative. Family History Problem Relation Name Age of Onset Arthritis Mother Smita Rheum arthritis Mother Smita COPD Mother Smita Depression Mother Smita Hypertension Mother Smita Sleep apnea Mother Smita Neuropathy Mother Smita COPD Other Diabetes Other Hypertension Other Active Ambulatory Problems Diagnosis Date Noted Sensory ataxia 04/11/2024 Back pain 04/11/2024 Lumbosacral radiculopathy 04/11/2024 Neuropathy 04/11/2024 DDD (degenerative disc disease), lumbar 04/11/2024 Lumbar disc herniation 04/11/2024 Lumbar radiculopathy 04/11/2024 Leg numbness 04/11/2024 Arthropathy of left hip 02/19/2025 Chronic obstructive pulmonary disease, unspecified 02/19/2025 GERD (gastroesophageal reflux disease) 07/25/2024 Hyperlipidemia ([facility]) 07/25/2024 Hypertension ([facility]) 07/25/2024 Ileus ([facility]) 07/24/2024 Migraine 02/19/2025 Nausea and vomiting 07/25/2024 Morbid (severe) obesity due to excess calories ([facility]) 02/19/2025 Resolved Ambulatory Problems Diagnosis Date Noted No Resolved Ambulatory Problems Past Medical History: Diagnosis Date Chronic sinusitis Numbness GRACIE (obstructive sleep apnea) Peripheral neuropathy Umbilical hernia Past Surgical History: Procedure Laterality Date ADENOIDECTOMY TONSILLECTOMY No Known Allergies Current Outpatient Medications on File Prior to Visit Medication Sig Dispense Refill albuterol HFA 90 mcg/act inhaler Inhale 2 puffs every 6 (six) hours if needed baclofen (Lioresal) 10 MG tablet TAKE 1 TABLET BY MOUTH IN THE MORNING then TAKE 1 TABLET BY MOUTH at noon then TAKE 1 TABLET BY MOUTH IN THE EVENING then TAKE 1 TABLET BY MOUTH BEFORE bedtime 120 tablet 0 diclofenac (Voltaren) 75 MG EC tablet Take 75 mg by mouth 2 (two) times a day as needed DULoxetine (Cymbalta) [address] capsule Take 60 mg by mouth Daily fexofenadine (Leigh) 180 MG tablet Take 180 mg by mouth Daily HYDROcodone-acetaminophen ([place]) 5-325 MG tablet 1 tablet every 6 (six) hours if needed for severe pain lisinopril 20 MG tablet Take 20 mg by mouth Daily omeprazole (PriLOSEC) [address] capsule Take 20 mg by mouth Daily ondansetron ODT (Zofran-ODT) 4 MG disintegrating tablet 4 mg phentermine (Adipex-P) 37.5 MG tablet 37.5 mg pregabalin (Lyrica) 200 MG capsule Take 1 capsule (200 mg) by mouth in the morning and 1 capsule (200 mg) in the evening and 1 capsule (200 mg) before bedtime. Due now. 270 capsule 1 propranolol LA (Inderal LA) 80 MG 24 hr capsule Take 80 mg by mouth Daily SUMAtriptan (Imitrex) 100 MG tablet Take 100 mg by mouth 1 (one) time if needed for migraine No current facility-administered medications on file prior to visit. Objective Last Recorded Vitals Vitals: 02/20/25 1021 BP: 126/86 Pulse: 74 ENT Physical Exam Constitutional Appearance: patient appears well-developed and well-nourished, Head and Face Appearance: head appears normal and face appears atraumatic; Ear Ear Canals: bilateral ear canals impacted cerumen observed; Nose External Nose: nares patent bilaterally; external nose normal; Internal Nose: nasal mucosa normal; Oral Cavity/Oropharynx Lips: normal; Teeth: normal; Gums: gingiva normal; Tongue: normal; Oral mucosa: normal; Hard palate: normal; Neck Neck: neck normal; neck palpation normal; Thyroid: thyroid normal; Respiratory Inspection: breathing unlabored; normal breathing rate; Auscultation: breath sounds are clear; Cardiovascular Inspection: extremities are warm and well perfused; no peripheral edema present; Auscultation: regular rate and rhythm; Assessment/Plan Diagnoses and all orders for this visit: Rhinitis medicamentosa Bilateral impacted cerumen Pt's sx are due to his decongestant abuse, not the mild sinus dz on his CT. Tx with BID flonase, prednisone and hypertonic saline irrigations. Stop decongestant cold-turkey after 2 days. Clean ears at F/U documented in this encounter [facility] 02-06-2025 History of Presen t illness Narrative Images from the original note were not included. NAME: Riccardo Hale : 1975 HISTORY OF PRESENT ILLNESS: NEW PT Riccardo Hale is an 49 y.o. @ male. (NEW PT - DR. NAILS REFERRAL) - BILATERAL CTS - LT>RT - SYMPTOMS FOR SEVERAL YEARS- +N/T IN ALL FINGERS EXCEPT RF, CONSTANT IN THE (L) WRIST- DENIES PAIN - TAKING NORCO (MOSTLY FOR BACK) - DIFFICULTY GRIPPING, DROPPING THINGS MORE OFTEN - HARD TIME OPENING JARS/BOTTLES AND GRIPPING THE STEERING WHEEL- HE WALKS WITH A CANE AND HAS A DIFFICULT TIME GRIPPING IT - WAKES HIM AT HS - HE DOES HAVE WRIST BRACES- NO RELIEF - PT IS RT HANDED. PAIN MGMT - [facility] (BACK/LEGS) DR. PATRICK- NEURO EM[facility] -05/24/24 PAST MEDICAL HISTORY: Past Medical History: Diagnosis Date Chronic sinusitis DDD (degenerative disc disease), lumbar Hypertension (CMS/HCC) Ileus (CMS/HCC) Neuropathy GRACIE (obstructive sleep apnea) Umbilical hernia PAST SURGICAL HISTORY: Past Surgical History: Procedure Laterality Date ADENOIDECTOMY TONSILLECTOMY SOCIAL HISTORY: Social History Occupational History Not on file Tobacco Use Smoking status: Former Types: Cigarettes Smokeless tobacco: Not on file Substance and Sexual Activity Alcohol use: Not Currently Drug use: Not on file Sexual activity: Not on file ALLERGIES: No Known Allergies HOME MEDICATIONS: Current Outpatient Medications Medication Instructions albuterol HFA 90 mcg/act inhaler 2 puffs, Every 6 hours PRN baclofen (Lioresal) 10 MG tablet TAKE 1 TABLET BY MOUTH IN THE MORNING then TAKE 1 TABLET BY MOUTH at noon then TAKE 1 TABLET BY MOUTH IN THE EVENING then TAKE 1 TABLET BY MOUTH BEFORE bedtime diclofenac (VOLTAREN) 75 mg, 2 times daily PRN DULoxetine (CYMBALTA) 60 mg, Daily fexofenadine (LEIGH) 180 mg, Daily HYDROcodone-acetaminophen ([place]) 5-325 MG tablet 1 tablet, Every 6 hours PRN lisinopril 20 mg, Daily omeprazole (PRILOSEC) 20 mg, Daily ondansetron ODT (ZOFRAN-ODT) 4 mg phentermine (ADIPEX-P) 37.5 mg pregabalin (LYRICA) 200 mg, Oral, 3 times daily, Due now propranolol LA (INDERAL LA) 80 mg, Daily SUMAtriptan (IMITREX) 100 mg, Once as needed REVIEW OF SYSTEMS: Review of Systems Constitutional: Negative for fatigue, fever and unexpected weight change. Eyes: Negative for redness and visual disturbance. Gastrointestinal: Negative for abdominal pain. Denies Indigestion Musculoskeletal: See note: Skin: Negative for color change and rash. Neurological: Positive for numbness. Negative for light-headedness. Vitals: There is no height or weight on file to calculate BMI. Tobacco Use: Medium Risk (02/06/2025) Patient History Smoking Tobacco Use: Former Smokeless Tobacco Use: Unknown Passive Exposure: Not on file Alcohol Use: Not At Risk (10/24/2018) Received from [facility] AUDIT-C Frequency of Alcohol Consumption: Never Average Number of Drinks: Not on file Frequency of Binge Drinking: Not on file PHYSICAL EXAM: Hand/Wrist Musculoskeletal Exam Inspection Right Erythema: none Ecchymosis: none Edema: none Deformity: mild Left Erythema: none Ecchymosis: none Edema: none Inspection additional comments: MILD THENAR ATROPHY Palpation Right Right hand palpation is normal. Wrist tenderness to palpation: carpal canal Left Left hand palpation is normal. Wrist tenderness to palpation: carpal canal Palpation additional comments: DENIES PAIN TO PALPATION OF HAND/ WRIST JOINT Range of Motion Right Hand Right hand range of motion is normal. Left Hand Left hand range of motion is normal. Range of motion additional comments: ABLE TO MAKE FULL FIST Strength Right Hand Right hand strength is normal. Left Hand Left hand strength is normal. 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 Radial pulse: normal and 2+ Capillary refill: <3 sec Ulnar nerve sensory distribution: normal Median nerve sensory distribution: decreased Superficial radial nerve sensory distribution: normal Left Radial pulse: normal and 2+ Capillary refill: <3 sec Median nerve sensory distribution: decreased Superficial radial nerve sensory distribution: normal Neurovascular additional comments: LT>RT. Constant numbness in rist and tips of fingers of left hand except ring finger. Special Tests Right Phalen's: positive Tinel's - carpal tunnel: positive Left Phalen's: positive Tinel's - carpal tunnel: positive General Constitutional: appears stated age Labored breathing: no Neurological: alert and oriented x3 Skin: intact Lymphadenopathy: none IMAGING: I reviewed EMG from Dr. Patrick dated 05/2024 which showed mild CTS in both left and right median nerve. Procedures Orders Placed This Encounter Procedures Ambulatory referral to Orthopaedic Surgery Referral to Dr. Montiel for bilateral Carpal Tunnel - EMG done at [facility] 05/24/24 Standing Status: Future Expected Date: 02/06/2025 Expiration Date: 08/09/2025 Referral Priority: Routine Referral Type: Consultation Referral Reason: Specialty Services Required Referred to Provider: Tracie Montiel DO Requested Specialty: Orthopaedic Surgery Number of Visits Requested: 1 ASSESSMENT: ICD-10-CM 1. Carpal tunnel syndrome of left wrist G56.02 Ambulatory referral to Orthopaedic Surgery 2. Carpal tunnel syndrome of right wrist G56.01 Ambulatory referral to Orthopaedic Surgery PLAN: I discussed options of surgical and non surgical treatment. Risks/benefits of each and chances for success/ failure. Discussion included but was not limited to the risk of infection, blood clot, failure to improve and need for additional surgery. The patient was advised that surgery is not likely to make them pain free. I answered all of the patients questions. Advised that there is probably irreversable damage in his left hand and that surgery may not make the symptoms better. Surgery may help prevent further progression of symptoms. He would like to meet with Dr. Montiel to further discuss carpal tunnel release for left wrist and then right wrist Questions answered in laymen terms at the bedside. The diagnosis, home exercise plan and any ongoing restrictions/ recommendations reviewed. If unable to be reached in office, I recommend evaluation at nearest Emergency Room if any symptoms worsened or new symptoms develop for requiring urgent evaluation. documented in this encounter [facility] 02-04-2025 Note Entered by DYLAN NAILS DO on February 04, 2025 10:00:28 EDT From: MILAN NAILS DO To: [facility] Sent: 02/04/2025 10:00:28 EDT Subject: Medication Management Submitted: Complete:DULoxetine (DULoxetine 60 mg oral delayed release capsule) Signed by MILAN NAILS DO 02/04/2025 10:00:00 EDT Approved with modifications: DULoxetine (duloxetine 60 mg capsule,delayed release) TAKE 1 CAPSULE BY MOUTH DAILY Qty: 30 cap(s) Days Supply: 30 Refills: 5 Substitutions Allowed Route To Pharmacy - [facility] -------- From: [facility] To: MILAN NAILS DO Sent: February [...] 11 Substitutions Allowed Notes from Pharmacy: -------- [facility] 01-03-2025 Note Entered by DYLAN NAILS DO on January 03, 2025 13:01:51 EDT From: MILAN NAILS DO To: [facility] Sent: 01/03/2025 13:01:51 EDT Subject: Medication Management Submitted: Complete:omeprazole (omeprazole 20 mg oral delayed release capsule) Signed by MILAN NAILS DO 01/03/2025 13:01:00 EDT Approved with modifications: omeprazole (omeprazole 20 mg capsule,delayed release) TAKE 1 CAPSULE BY MOUTH DAILY Qty: 30 cap(s) Days Supply: 30 Refills: 5 Substitutions Allowed Route To Pharmacy - [facility] -------- From: [facility] To: MILAN NAILS DO Sent: January [...] 11 Substitutions Allowed Notes from Pharmacy: -------- [facility] 01-03-2025 Telephone encount er Note 12/03/2024 Continue baclofen 10mg PO up to 4 times daily for muscle spasm. Will not allow me to select QID. [facility] 01-03-2025 Miscellaneous Notes Formattin g of this note might be different from the original. 12/03/2024 Continue baclofen 10mg PO up to 4 times daily for muscle spasm. Will not allow me to select QID. documented in this encounter [facility] 12-03-2024 Telephone encount er Note Contacted and he noted the FCE is not needed. He said for the update of disability this is not required. I let him know not to hesitate if we'd be needed. [facility] 12-03-2024 Miscellaneous Notes Formattin g of [...] self-pay @ $505.00. documented in this encounter [facility] 11-28-2024 Telephone encount er Note Tried to contact re: referral for FCE. Requested a call back to verify if this would be going thru C-[facility], covered; if not then self-pay @ $505.00. [facility] 11-15-2024 Note PROCEDURE: CT Sinus w/o [...] Christopher Manjarrez MD 11/16/24 9:26 am Technologist: [facility] 11-12-2024 Note Entered by DYLAN NAILS DO on November 12, 2024 07:31:34 EST From: MILAN NAILS DO To: [facility] Sent: 11/12/2024 07:31:34 EST Subject: Medication Management Submitted: Complete:lisinopril (lisinopril 20 mg oral tablet) Signed by MILAN NAILS DO 11/12/2024 07:31:00 EST Approved with modifications: lisinopril (lisinopril 20 mg tablet) TAKE 1 TABLET BY MOUTH DAILY Qty: 90 tab(s) Days Supply: 90 Refills: 1 Substitutions Allowed Route To Pharmacy - [facility] -------- From: [facility] To: MILAN NAILS DO Sent: November 09, 2024 6:21:57 PM DIRECTOR PARK Subject: Medication Management Due: November 10, 2024 12:08:02 AM DIRECTOR PARK On Hold Pending Signature Drug: lisinopril (lisinopril 20 mg oral tablet), TAKE 1 TABLET BY MOUTH DAILY Quantity: 90 tab(s) Days Supply: 90 Refills: 5 Substitutions Allowed Notes from Pharmacy: Dispensed Drug: lisinopril (lisinopril 20 mg oral tablet), TAKE 1 TABLET BY MOUTH DAILY Quantity: 90 tab(s) Days Supply: 90 Refills: 5 Substitutions Allowed Notes from Pharmacy: -------- [facility] 10-26-2024 Note Entered by DYLAN NAILS DO on October 26, 2024 14:14:29 EST From: MILAN NAILS DO To: [facility] Sent: 10/26/2024 14:14:29 EST Subject: Medication Management Submitted: Complete:fexofenadine (fexofenadine 180 mg oral tablet) Signed by MILAN NAILS DO 10/26/2024 14:14:00 EST Approved with modifications: fexofenadine (fexofenadine 180 mg tablet) TAKE 1 TABLET BY MOUTH EVERY DAY Qty: 30 tab(s) Days Supply: 30 Refills: 5 Substitutions Allowed Route To Pharmacy - [facility] -------- From: [facility] To: MILAN NAILS DO Sent: October 26, 2024 12:55:48 PM DIRECTOR PARK Subject: Medication Management Due: October 27, 2024 12:02:15 AM [employer]OR [employer]ARK On Hold Pending Signature Drug: fexofenadine (fexofenadine 180 mg oral tablet), TAKE 1 TABLET BY MOUTH DAILY Quantity: 30 tab(s) Days Supply: 30 Refills: 5 Substitutions Allowed Notes from Pharmacy: Dispensed Drug: fexofenadine (fexofenadine 180 mg oral tablet), TAKE 1 TABLET BY MOUTH EVERY DAY Quantity: 30 tab(s) Days Supply: 30 Refills: 5 Substitutions Allowed Notes from Pharmacy: -------- [facility] 08-27-2024 Note Entered by DYLAN NAILS DO on August 27, 2024 16:27:03 EST From: MILAN NAILS DO To: [facility] Sent: 08/27/2024 16:27:03 EST Subject: Medication [...] 5 Substitutions Allowed Route To Pharmacy - [facility] Approved with modifications: propranolol (propranolol ER 80 mg capsule,24 hr,extended release) TAKE 1 CAPSULE BY MOUTH DAILY Qty: 30 cap(s) Days Supply: 30 Refills: 5 Substitutions Allowed Route To [facility] Approved with modifications: SUMAtriptan (sumatriptan 100 mg tablet) TAKE 1 TABLET BY MOUTH DAILY Qty: 12 EA Days Supply: 12 Refills: 5 Substitutions Allowed Route To [facility] -------- From: [facility] To: MILAN NAILS DO Sent: August 27, 2024 2:39:32 PM DIRECTOR PARK Subject: Medication Management Due: August 28, 2024 12:06:32 AM DIRECTOR PARK On Hold Pending Signature Drug: albuterol (Albuterol [...] 5 Substitutions Allowed Notes from Pharmacy: -------- [facility] 07-17-2024 History of Presen t illness Narrative Images from the original note were not included. Reason for Appointment: EMG Patient: Riccardo Hale : 1975 EMG Computer: [employer] Referring Physician: Dr. Maurizio Patrick EMG: BLE certified medical technician: Danya Ritter CMA Office Location: [place] Reason for EMG: c/o hypersensitivty to the bottoms of the feet. Paresthesia in the legs. R>L. No Hx of DM, not taking blood thinners. Comments: Procedure explained to the patient who expressed understanding. documented in this encounter [facility] 05-24-2024 History of Presen t illness Narrative Images from the original note were not included. Reason for Appointment: EMG Patient: Riccardo Hale : 1975 EMG Computer: [employer] Referring Physician: Pascale Souza PA-C EMG: BUParamjit certified medical technician: Danya Ritter CMA Office Location: [place] Reason for EMG: c/o burning, numbness, tingling in the hands. R>L. Sometimes has a hard time closing his hand. No Hx of DM, not taking blood thinners. Comments: Procedure explained to the patient who expressed understanding. documented in this encounter [facility] 05-22-2024 Note Entered by DYLAN NAILS DO on May 22, 2024 08:21:07 EDT From: MILAN NAILS DO To: [facility] Sent: 05/22/2024 08:21:07 EDT Subject: Medication Management Submitted: Complete:SUMAtriptan (SUMAtriptan 100 mg oral tablet) Signed by MILAN NAILS DO 05/22/2024 08:21:00 EDT Approved with modifications: SUMAtriptan (sumatriptan 100 mg tablet) TAKE 1 TABLET BY MOUTH DAILY Qty: 12 EA Days Supply: 12 Refills: 2 Substitutions Allowed Route To Pharmacy - [facility] -------- From: [facility] To: MILAN NAILS DO Sent: May [...] 2 Substitutions Allowed Notes from Pharmacy: -------- [facility] 05-02-2024 Note Entered by DYLAN NAILS DO on May 02, 2024 11:28:48 EDT From: MILAN NAILS DO To: [facility] Sent: 05/02/2024 11:28:48 EDT Subject: Medication Management Submitted: Complete:fexofenadine (fexofenadine 180 mg oral tablet) Signed by MILAN NAILS DO 05/02/2024 11:28:00 EDT Approved with modifications: fexofenadine (fexofenadine 180 mg tablet) TAKE 1 TABLET BY MOUTH DAILY Qty: 30 tab(s) Days Supply: 30 Refills: 5 Substitutions Allowed Route To Pharmacy - [facility] -------- From: [facility] To: MILAN NAILS DO Sent: May [...] 5 Substitutions Allowed Notes from Pharmacy: -------- [facility] 09-23-2023 Evaluation note Encounter Date [...] 3 days Sep, Bronchitis (ICD-10 - J40) [facility] Other 07-28-2023 Evaluation note* Encounter Date Diagnosis [...] is not contagious from itself or drainage. [facility] Other 05-30-2023 NoteCONSULTATION CONSULTATION DATE: 02/15/2023 TO: [...] the lower extremities. MEDICATION: Current medication includes Philadelphia 5 mg t.i.d. p.r.n. Patient reports it [...] our patients to inform us about any uqni-pjr-dcohfbw medications or herbal remedies/nutritional supplements/alternative remedies. 2. [...] treatment options with their primary care provider.[facility] [id number] Note CONSULTATION CONSULTATION DATE: 01/06/2023 TO: Dr. [...] our patients to inform us about any wwzh-lzj-dwmtskx medications or herbal remedies/nutritional supplements/alternative remedies. 2. [...] treatment options with their primary care provider.[facility] [id number] Note CONSULTATION PROCEDURE DATE: 10/06/2022 PREOPERATIVE DIAGNOSIS: [...] will be followed up in the office.[facility] [id number] NoteCONSULTATION CONSULTATION DATE: 08/26/2022 HISTORY OF PRESENT [...] his muscle relaxer. Our clinic prescribes his Philadelphia 5/325 b.i.d. and diclofenac 75 mg b.i.d. [...] normally does. All questions were answered today.[facility] [id number] NoteCONSULTATION CONSULTATION DATE: 07/22/2022 HISTORY OF PRESENT [...] a cane. He has seen Neurosurgery at [facility] in the past, which they feel, at this time, he is not a surgical candidate and to be managed by Pain Management. He current does see Dr. Patrick at [facility] as well. Activities that aggravate his pain are pulling, sitting, walking, lying down and bending. He will alternate heat and ice which he feels does not make a significant difference. Medications include trazodone 50 mg q.h.s., tizanidine 4 mg b.i.d., Lyrica 50 mg t.i.d., diclofenac 75 mg b.i.d. and Philadelphia 5/325 b.i.d. He does attend pool therapy at the [facility] 2-3 times a week, which he [...] be followed up in the clinic thereafter.[facility] 04-22-2022 NoteCONSULTATION PROCEDURE DATE: 04/22/2022 [...] will be followed up in the office.[facility] [id number] NoteCONSULTATION CONSULTATION DATE: 04/15/2022 This is a 46-year-old male returning to the clinic status post #1 bilateral MBB of L2, L3 and L4, L5. The patient reportedly received a 25% relief. Today his pain is 6 out of 10, described as pressure, burn and tightness. He has recently joined the local [email or web address] center with his daughter and plans on going to the pool. Activities that aggravate his pain are standing, stairs, physical activity, walking and bending. Current medications include tizanidine 4 mg b.i. d. duloxetine 30 mg q. day, diclofenac 75 mg b.i.d., Lyrica 50 mg b.i.d. and Philadelphia 5/325 b.i.d. He is complaining of trouble [...] is gained for his trigger point injections.[facility] Evaluation note* Diagnosis Lumbar radiculopathy- [...] [facility] Diagnosis Carpal tunnel syndrome of left wrist Carpal tunnel syndrome of right wrist [facility] Diagnosis Rhinitis medicamentosa- Primary Other diseases of nasal cavity and sinuses Bilateral impacted cerumen Impacted cerumen [facility] Diagnosis Bilateral impacted cerumen- Primary Impacted cerumen Rhinitis medicamentosa Other diseases of nasal cavity and sinuses [facility]* Diagnosis Onset Date Resolution Status Admit Date Morbid obesity with BMI of 45.0-49.9, adult acute April 17, 2025 9:22am HTN (hypertension) chronic March 212024 9:22am [facility] Work Phone: History general Narrative - Reported* Type Description Date Medical History HTN (hypertension) Medical History GERD (gastroesophageal reflux di sease) Medical History Chronic pain Medical History Anxiety Surgical History tonsillectomy and adenoidectomy Surgical History ablasion [facility] Other History general Narrative - Reported* Type Description Date Medical History HTN (hypertension) Medical History GERD (gastroesophageal reflux di sease) Medical History Chronic pain Medical History Anxiety Surgical History tonsillectomy and adenoidectomy Surgical History ablasion Surgical History nerve block Surgical History epidural [facility] AL[facility] App Other Reason for referral (narrative)No reason for referral information availableUniversity [facility]als [facility] Work Phone: Summary Purpose Family History Relationship Condition Age at Onset Recorded Date/T anahi mother Hypertension Unknown Diabetes mellitus Unknown Heart disease Unknown Advance Directives Advance Directive Response Recorded Date/ Time Advance Directives No February 23 1:23pm Chief Complaint and Reason for Visit Chief Complaint Admit Date Amb Documentation April 10, 2025 4:04 pm Est Care April 17, 2025 9:22 am Reason for Visit Admit Date Morbid obesity with BMI of 45.0-49.9, ad ult April 17, 2025 9:22am HTN (hypertension) April 17, 2025 9:22 am Additional Source Comments (unrecognized sect ion and content) No Status Records FoundNo Status Records FoundNo Status Records FoundNo Status Records FoundNo Status Records FoundNo Status Records Found INFORMATION SOURCE (unrecogn ized section and content) DATE CREATED AUTHOR 03/09/[address] [facility] DATE CREATED AUTHOR AUTHOR'S ORGANIZ ATION 01/19/2022 [facility] DATE CREATED AUTHOR AUTHOR'S ORGANIZ ATION 02/25/2023 [facility] DATE CREATED AUTHOR AUTHOR'S ORGANIZ ATION 07/27/2024 [facility] DATE CREATED AUTHOR AUTHOR'S ORGANIZ ATION 03/15/2025 [facility] DATE CREATED AUTHOR AUTHOR'S ORGANIZ ATION 03/31/2025 [facility] dical Specialists EPIC REASON FOR VISIT (unrecogniz ed section and content) Reason Comments Back Pain Numbness Reason Comments Med Refill Reason Onset Date Comments re: referral for FCE 11/28/2024 re: FCE 12/03/2024 Reason Comments Carpal Tunnel Reason Comments Sinusitis Reason Comments Rhinitis medicamentosa 1 month check nos e and clean ears Care Teams (unrecognized sec tion and content) Tie Fastener Relationship Specialty Start Date End Date Milan Nails MD [address] [place] [address] PCP - General Family Medicine 12/08/23 Tie Fastener Relationship Specialty Start Date End Date Milan Nails MD [address] [place] [facility] [place] [address] PCP - General Family Medicine 12/08/23 Tie Fastener Relationship Specialty Start Date End Date Milan Nails MD [address] [place] [address] PCP - General Family Medicine 12/08/23 Pascale Souza PA [address] [place] [address] Physician Outreach Rep Neurology 07/19/24 Maurizio Patrick MD [address] [place] [address] Referring Physician Neurology 07/19/24 Tie Fastener Relationship Specialty Start Date End Date Milan Nails MD [address] [place] [address] PCP - General Family Medicine 12/08/23 Tie Fastener Relationship Specialty Start Date End Date Milan Nails MD [address] [place] [facility] [place] [address] PCP - General Family Medicine 12/08/23 Tie Fastener Relationship Specialty Start Date End Date Milan Nails MD [address] [place] [facility] [place] [address] PCP - General Family Medicine 12/08/23 Pascale Souza PA [address] [place] [address] Physician Outreach Rep Neurology 07/19/24 Maurizio Patrick MD [address] [place] [address] Referring Physician Neurology 07/19/24 Tie Fastener Relationship Specialty Start Date End Date Milan Nails MD [address] [place] [facility] [place] [address] PCP - General Family Medicine 12/08/23 Pascale Souza PA [address] [place] [address] Physician Outreach Rep Neurology 07/19/24 Maurizio Patrick MD [address] [place] [address] Referring Physician Neurology 07/19/24 Tie Fastener Relationship Specialty Start Date End Date Milan Nails MD [address] [place] [facility] [place] [address] PCP - General Family Medicine 12/08/23 Pascale Souza PA [address] [place] [address] Physician Outreach Rep Neurology 07/19/24 Maurizio Patrick MD [address] [place] [address] Referring Physician Neurology 07/19/24 Tie Fastener Relationship Specialty Start Date End Date Milan Nails MD [address] [place] [address] PCP - General Family Medicine 12/08/23 Pascale Souza PA [address] [place] [address] Physician Outreach Rep Neurology 07/19/24 Maurizio Patrick MD [address] [place] [address] Referring Physician Neurology 07/19/24 Tie Fastener Relationship Specialty Start Date End Date Milan Nails MD [address] [place] [place] [address] PCP - General Family Medicine 12/08/23 Pascale Souza PA [address] [place] [address] Physician Outreach Rep Neurology 07/19/24 Maurizio Patrick MD [address] [place] [address] Referring Physician Neurology 07/19/24 Tie Fastener Relationship Specialty Start Date End Date Milan Nails MD [address] [place] [address] PCP - General Family Medicine 12/08/23 Pascale Souza PA [address] [place] [address] Physician Outreach Rep Neurology 07/19/24 Maurizio Patrick MD [address] [place] [address] Referring Physician Neurology 07/19/24 Tie Fastener Relationship Specialty Start Date End Date Milan Nails MD [address] [place] [address] PCP - General Family Medicine 12/08/23 Pascale Souza PA [address] [place] [address] Physician Outreach Rep Neurology 07/19/24 Maurizio Patrick MD [address] [place] [address] Referring Physician Neurology 07/19/24 Tie Fastener Relationship Specialty Start Date End Date Milan Nails MD [address] [place] [address] PCP - General Family Medicine 12/08/23 Pascale Souza PA [address] [place] [address] Physician Outreach Rep Neurology 07/19/24 Maurizio Patrick MD [address] [place] [address] Referring Physician Neurology 07/19/24 Tie Fastener Relationship Specialty Start Date End Date Milan Nails MD [address] [place] [address] PCP - General Family Medicine 12/08/23 Pascale Souza PA [address] [place] [address] Physician Outreach Rep Neurology 07/19/24 Maurizio Patrick MD [address] [place] [address] Referring Physician Neurology 07/19/24 Tie Fastener Relationship Specialty Start Date End Date Milan Nails MD [address] [place] [place] [address] PCP - General Family Medicine 12/08/23 Pascale Souza PA [address] [place] [address] Physician Outreach Rep Neurology 07/19/24 Maurizio Patrick MD [address] [place] [address] Referring Physician Neurology 07/19/24 Team Status: Active Member Role Status Dates Temi Marshall APRN CHIEF PORT DIRECTOR-C Primary Care Provider Active Team Status: Active Member Role Status Dates Temi Marshall APRN CHIEF PORT DIRECTOR-C Primary Care Provider Active Start: April 10, 2025 Belinda Negron Attending Provider Active Start: April 10, 2025 Team Status: Inactive Member Role Status Dates Temi Marshall APRN CHIEF PORT DIRECTOR-C Primary Care Provider Active Start: April 17, 2025 End: April 17, 2025 RICHA Williamson Attending Provider Act nakul Start: April 17, 2025 End: April 17, 2025 Goals (unrecognized section and content) Goals may be documented in a n alternate section FOR RECORDS PERTAINING TO PATIENTS WHO ARE [...] BE BASED ON THE PRIMARY CLINICAL RECORDS. [facility] provides no warranty or guarantee of the accuracy or completeness of information in this document.
[2025-04-22 11:09] VITALS: BP 151/81; BP 153/97; PULSE 73; PULSE 77; O2SAT 95; O2SAT 96
[2025-04-22] MEDS: 0.9 % SODIUM CHLORIDE 10 ML SYRINGE - SALINE FLUSH INJ (11:11)
[2025-04-22] MEDS: BUPIVACAINE HCL 0.25% PF 25 MG/10 ML VIAL INJ (11:11)
[2025-04-22] MEDS: METHYLPREDNISOLONE ACETATE 80 MG/ML VIAL INJ (11:12)
[2025-04-22] MEDS: LIDOCAINE HCL 2% 400 MG/20 ML MDV INJ (11:12)
[2025-04-22] MEDS: IOHEXOL 240 MG/ML - 10 ML VIAL INJ (11:12)
--- NOTE | 2025-04-22 11:15 | P.ON_ITS ---
Date of procedure: 04/22/25 Pre-op diagnosis: Pain due to lumbar stenosis with neurogenic claudication Post-op diagnosis: same as pre-op Procedure: Procedure: Right L4-5, L5-S1 transforaminal epidural steroid injection Medications: Bupivacaine 0.25% 2cc, lidocaine 2% 1cc, depomedrol 80mg The patient was seen and examined in the preoperative holding area.? Informed consent was obtained and placed on the chart.? Patient was brought to the medical procedure unit and placed in the prone position where a timeout was completed verifying the correct patient, procedure site, position, and planned special equipment using sterile aseptic technique.? Under direct fluoroscopic visualization a 25-gauge Quincke tipped spinal needle was advanced to the designated neural foramen where contrast dye was injected to show adequate spread.? The needle was inserted at level right L4-5. There was no evidence of vascular or adverse uptake.? Epidural spread was appreciated.? The above- mentioned injectate was then placed in a 1.5 mL aliquot preceded by negative aspiration.? The needle was removed. The needle was inserted and the procedure repeated at level right L5-S1.? The surgery site was covered.? Patient was taken to the postprocedural recovery area and monitored for an appropriate length of time before found suitable for discharge in the accompaniment of a responsible adult. Anesthesia: Local Surgeon: Renetta Terrazas Pathology: none sent Condition: stable Disposition: no change
== END 2025-04-22 11:18 | disposition home or self-care (01) ==
LOC: SURGOUT 10:12
PROVIDERS: PCP Family Medicine; Visit Provider Anesthesiology
DX: M48.062 Spinal stenosis, lumbar region with neurogenic claudication (principal); M54.50 Low back pain, unspecified
CPT/HCPCS: 64483; 64484; J0665; J1010; Q9966

== ENCOUNTER 2025-05-02 09:07 | Outpatient (OUT) | payer MEDICARE, SELFPAY ==
--- OUTSIDE RECORDS SUMMARY | 2017-09-15 07:32 | XMS_ITS | Continuity of Care Document ---
Author Organization [facility] Address [address] [place] [address] Phone Care Team Providers Care Asset Protection Detective Name Role Phone Rufus SANTOS Kavin Unavailable Unavailable Advance Directives Directive Yes / No Effective Date File Name No Information Encounters Encounter Description Practice Location Reason(s) For Visit Diagnoses Date Provider Providers Copied on Encounter [facility], [address], [place], [id number], [place] tel:[phone] [facility] No Information Rufus TRACY Kavin. [address], [place], [id number], [place]. tel:[phone] Family History Family Member Type Diagnosis Age [...]
--- OUTSIDE RECORDS SUMMARY | 2025-05-02 09:09 | XMS_ITS | Clinical Summary ---
Author Organization [facility] Address [address] [place] [address] Care Team Providers Care Sales Service Coordinator Name Role Phone Unavailable Primary Care Provider [...] complete this topic Insurance [employer] [id number]
--- OUTSIDE RECORDS SUMMARY | 2025-05-02 09:10 | XMS_ITS | Clinical Summary ---
Author Organization [employer] Address [id number] [address] [place] [address] Care Team Providers Care Revenue Liaison Name Role Phone Milan Mehta DO Primary Care Provider [phone] Allergies No known active allergies Medications lisinopril [...] drink = 0.6 oz pur e alcohol) [facility] Utilities Answer Date Recorded In the [...] Medical Devices [place] on [place] [id number] Advance Directives * Full Code (Latest Code Status on File) Date Activated Date Inactivated Comments 07/24/2024 5:22 PM 07/27/2024 1:04 PM Care Teams Revenue Liaison Relationship Specialty Start Date End Date Milan Mehta DO PCP - General 10/24/18
--- OUTSIDE RECORDS SUMMARY | 2025-05-02 09:10 | XMS_ITS | Encounter Summary ---
Author Organization [facility] Address [address] [facility], [address] [place] [address] Care Team Providers Care Middle School Counselor Name Role Phone Unavailable Primary Care Provider Unavailabl e Reason for Visit * Reason Comments Medication Refill Encounter Details Date Type Department Care Team (Late st Contact Info) Description 10/23/2011 Refill [facility] [address] [place] [phone] [place] [address] [place] [address] [id number] Medication Refill Social History Tobacco Use Types [...]
--- OUTSIDE RECORDS SUMMARY | 2025-05-02 09:10 | XMS_ITS | Encounter Summary ---
Author Organization [facility] Address [address] [facility], [address] [place] [address] Care Team Providers Care Ladler Name Role Phone Unavailable Primary Care Provider Unavailabl e Reason for Visit * Reason Comments Medication Refill Encounter Details Date Type Department Care Team (Late st Contact Info) Description 07/10/2012 Refill [facility] [address] [place] [phone] [place] [address] [place] [address] [phone] Medication Refill Social History Tobacco Use Types [...]
--- OUTSIDE RECORDS SUMMARY | 2025-05-02 09:10 | XMS_ITS | Encounter Summary ---
Author Organization [facility] Address [address] [facility], [address] [place] [address] Care Team Providers Care Deck Mate Name Role Phone Unavailable Primary Care Provider Unavailabl e Reason for Visit * Reason Comments Medication Refill Encounter Details Date Type Department Care Team (Late st Contact Info) Description 06/26/2012 Refill [facility] [address] [place] [phone] [place] [address] [place] [address] [phone] Medication Refill Social History Tobacco Use Types [...]
--- OUTSIDE RECORDS SUMMARY | 2025-05-02 09:10 | XMS_ITS | Clinical Summary ---
Author Organization [facility] Address [address] [place] [place] [address] Care Team Providers Care Experimental Electronics Developer Name Role Phone Milan Nails MD Primary Care Provider [phone] Pascale Souza Unavailable Nghia Galeas MD Unavailable [phone] Allergies No known active allergies Medications HYDROcodone-acetam inophen (Gibbon) 5-325 MG tablet 1 tablet every 6 [...] before bedtime. Due now. 270 capsule 1 5 Active baclofen (Lioresal) 10 MG tabletIndications: Chronic bilateral low back pain, unspecified whether sciatica present TAKE 1 TABLET BY MOUTH IN THE MORNING then TAKE 1 TABLET BY MOUTH at noon then TAKE 1 TABLET BY MOUTH IN THE EVENING then TAKE 1 TABLET BY MOUTH BEFORE bedtime 120 tablet 5 Active albuterol HFA 90 mcg/act inhaler Inhale 2 puffs every 6 (six) hours if needed 5 Active propranolol LA (Inderal LA) 80 MG 24 hr capsule Take 80 mg by mouth Daily 5 Active omeprazole (PriLOSEC) [address] capsule Take 20 mg by mouth Daily 5 Active DULoxetine (Cymbalta) [address] capsule Take 60 mg by mouth Daily 5 Active ondansetron ODT (Zofran-ODT) 4 MG disintegrating tablet 4 mg 4 Active diclofenac (Voltaren) 75 MG EC tablet Take 75 mg by mouth 2 (two) times a day as needed 5 Active fluticasone (Flonase) 50 MCG/ACT nasal sprayIndications:R hinitis medicamentosa Administer 2 sprays into each nostril Daily Shake gently. Before first use, prime pump. After use, clean tip and replace cap. 48 g 3 5 026 Active Active Problems Problem Noted Date Diagnosed [...] he was evaluated by a surgeon at [facility] and was not a surgical [...] continues to follow with pain management in [place] and had ablation with no significant benefit. He has quit medical marijuana. 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 Lumbar radiculopathy 04/11/2024 Leg numbness 04/11/2024 Encounters Date Type Department Care Team Description 03/27/2025 8:40 AM EDT Office Visit [facility] [address] [facility] [address] [place] [phone] Edda Bass MD Bilateral impacted cerumen (Primary Dx); Rhinitis medicamentosa 03/27/2025 Bamboo flowsheet [facility] [address] [facility] [address] [place] [address] Edda Bass MD 03/27/2025 Travel 02/20/2025 10:30 AM EDT Office Visit [facility] [address] [facility] [address] [place] [address] Edda Bass MD Rhinitis medicamentosa (Primary Dx); Bilateral impacted cerumen 02/20/2025 Bamboo flowsheet [facility] [address] [facility] [address] [place] [address] Edda Bass MD 02/20/2025 Travel 02/14/2025 Telephone [facility] [address] [place] [address] Hair Zacarias DO 02/06/2025 2:30 PM EDT Office Visit [facility] [address] [place] [address] Alexander De La Torre, RISK MGR Carpal tunnel syndrome of left wrist; Carpal tunnel syndrome of right wrist 02/06/2025 Bamboo flowsheet [facility] [address] [facility] [address] [place] [address] Alexander De La Torre NP 02/06/2025 Travel 02/04/2025 Refill [facility] [address] [place] [phone] Pascale Souza PA Chronic bilateral low [...] file Insurance [employer] MEDICARE Care Teams Experimental Electronics Developer Relationship Specialty Start Date End Date Milan Nails MD PCP - General Family Medicine 12/08/23 Pascale Souza PA [address] [place] [address] Physician Assistant Service Manager Neurology 07/19/24 Nghia Galeas MD [address] [place] [address] Referring Physician Neurology 07/19/24
--- OUTSIDE RECORDS SUMMARY | 2025-05-02 09:10 | XMS_ITS | Encounter Summary ---
Author Organization [facility] Address [address] [facility], [address] [place] [address] Care Team Providers Care Costume Cutter Name Role Phone Unavailable Primary Care Provider Unavailabl e Reason for Visit * Reason Comments Medication Refill Encounter Details Date Type Department Care Team (Late st Contact Info) Description 03/14/2012 Refill [facility] [address] [place] [phone] [place] [address] [place] [address] [phone] Medication Refill Social History Tobacco Use Types [...]
--- OUTSIDE RECORDS SUMMARY | 2025-05-02 09:12 | XMS_ITS | CCD ---
Author Organization [facility] [place] Care Team Providers Care Solid Waste Analyst Name Role Phone KIRN, DALLAS Unavailable Unavailable [...] Primary Care Unavailable GIL ., DR LUCY Mauirce Consulting Unavailable GIL ., DR LUCY Maurice Attending Unavailable GIL ., DR LUCY Mauriec Admitting Unavailable CONWAY ., KALI Consulting Unavailable [...] Pascale Masterson Unavailable Maurizio Patrick MD Unavailable HOUSE, MILAN P Primary Care Unavailable [...] P Attending Unavailable Maurizio Patrick MD Unavailable [phone] PASCALE SOUZA Attending Unavailable BLAIR GAN Attending Unavailable PASCALE SOUZA Attending Unavailable MAURIZIO PATRICK Attending Unavailable BETO REYES Attending Unavailable MILAN NAILS Referring Unavailable BETO REYES Attending Unavailable MAURIZIO PATRICK Attending Unavailable PASCALE SOUZA Attending Unavailable Temi Marshall APRN Primary Care Provider Belinda Negron Attending Provider Unavailable Temi Marshall APRN Attending Provider [phone] Medications Current Medications Medication Drug Class(es) Dates [...] six hours as needed for pain HYDROcodone-acetaminophen (Tabor) 5-325 MG tablet 1 tablet every 6 (six) hours if needed for severe pain Active take 1 tablet by jay th every six hours as needed Tabor 5-325 MG 1 tablet as needed Orally every 6 hrs Active [id number] 200 actuat albuterol 0.09 mg/actuat metered dose [...] mouth Daily Active take [address] [facility] every twelve hours Fexofenadine HCl 60 MG [...] Range Facility Patient Letteron 03-13-2025 Patient Letter [id number] 0OTGTIFF [facility] Coding Summaryon 03-04-2025 Coding Summary HTMLBase 64 NjgmzabuPTu1kYx+PGhlYW Q+ZF7SKSPpI05sxGZiwR0e C2XMNMyRDnccTUKYGQiUUw JjndVzHL0doXCtVYMq IC8+BE6aBLUeQzgxtMIak1 V8yKC8F97zug1rWJeupLU7 GNPpDbMxincog8saeIz4YJ cuNmluOyBt SNXhfE39ZXB8uO84Ua75yZ IzsNJrm2jvrOx6SiMaXUXl FEE6hDdmVUpts9MkSBErB4 6soFXcy6M7 CFIcdHcwiZMrSrXnuPC8iR 5yETdddqnuw1cgnqdeVrb8 bz88qQEmy5A6lYC1N1Poqb V3IYCpxKYo QxjgdWNOqE3lyjsad4pwgl ykAgUnEBMwVQq3BKz6CKGn fSwiIqFlPO98ZHZ2VLDocw VuY7EyTHUx xZcbQaB4h6U7Im1LN9FUCx kuX6HAOMQDDWowkUL+PC90 iy99U3GlOlicGlm5YNVsJU J3qNX5aQ1q VZHpUWdqa7L3oZP6Q4Vecq Xtwg7hl9zbDOFgACtwO69k xLLgf2L7JIUzgQD2LVOazB hvAmRimI65 Oyc+JRMgiKpzk2SgFrrsx2 fdm9zpxXd2AuzuSDTlkdPc xAliAPE7p1PmXe0uFYHyeA F0pQC1rG1p OxYoQuN8DUkqQ614FpKkoO SwRowpE73vZ7QldVZ+PHRy Sja5CGSrpJhzOF0lD1MhUT RpbmctbGVm oDpmXZ0eFSEwqatdNZEgjR 2sWYMmO7a4JqQaXqW3SDzn O8CfYVAmcvcdGl19rF1zHc PrAwP5AIqq V8ZgpxK2LTDfnTPkYOalLZ X7U40ke8M6REZfBYJnWXH3 nOI8yZ8qzIhtuohdqZNhwX sgdmVydGlj MFvsMKirA748NGIeuZkjVz NvZGluZyBEYXRlOiAgMDYv MTYvMjAyNTwvdGQ+PHRkIH I7eFmvQUQf iWWwMVpdHo7bgHbgrOscBH 5aWONvrogiARHlpD5yWSXn dSLgbIxzMN9dSAWzuqxxi9 16WwYyCCQ1 QUXysHOyW8WozL5aVaFrEW DuXJOzM0RuoQGrLLeyF315 ISbwSwB6WRDwhoPvO6JvGE FsaWduOiB0 h3I1Mc1Px1JotodvO1UxsL WtPwNwNglbABc6Z7ZkLxky dHI+DR31RLCxTS80BKk4ST O3rRkqMKgj NVZpO1PocG8sUkXeYYCiBC RkOyc+PHRhYmxlIHdpZHRo PFqqZNTfHmScmFvzUX5gZu 9yZGVyLWNv bSbqqQYjPkOwb3snQGAzOA qsZN6idIvfR2XimSV7OSHj a8w5Nr70X23kU8RtdSA+PG UghFS1mNL4 uM3jUuDwXsP0PCfyQ347Ft PhrZUuGgogi8ptg1wfqHz3 ZaY4ODSjbgXylRpsURO6i8 UaTj71L34q IHdpZHRoPSIxNSUiIHZhbG tjjv9qwO5tCf3+PGNvbCB3 dPE8pS9xWnCyEqA5JFefV2 49InRvcCIv Kacwf9dnh4njqYi2GbFvWV WbekUzdMtgDHI2x0CdRd86 Q6McmFsyx4LzBty5vo00uN Xla6E3rSR1 J8MrWAKazpnxyGUqhAvvRC 0bTQDvibpyZGOyiT7eVDMt O1f0MzIhZsW9CCesT2Gozz G0NLOftGNa XUYmwQYQeR1lcxxcn3ddyn ovUdIuFHKyJPb2QIl1YPKh eLwjAsJuXBI9BaF0SXW6pJ KstB0etRwd tbiokR9rVlw+AJG1lDGzyS RXEB0lUgndrWW+PHRkIHN0 zSitDFuqQIDrwS4nSOYiN9 o7SjNpVnB6 ZKcqO8IrsgJ4WTArqESuYE WmeNSXeS3pqkgts5pevqmx QzBqDHKoGWb1TMl0WKPjjE duOiBsZWZ0 LzL9QQB0fOWjhZ2ucRsqar duwS8uNlr+QmlydGggRGF0 ZYf1R2DdIkv5RXMjmHalLP 0ncGFkZGlu Ta1cpEwnqXhiXP8iTMYoja cpo997FnCmd5rpMDRhePZk VGvcYLM8M81zg8G8WIKoHE QnXLE9kSH9 qZ0kyPfvroxxwNRqgBpvee NzrFqaIAfpRNdmY604RAEk pGfjYdKmKNz9Q2AxSdj8NK WakMqeBR7z vXFtJNfhKf7riMttrSttJE 3dXRLwjyucy033RdKhu1ot MPCazTGbRUysJWC1S04jb3 Z0HJEyJRFv MAL0sPN6wE0wrOyxynmspD VmdDsgdmVydGljYWwtYWxp G942UOQpoNsmObKkcMp2N7 TcRmo0ZMJu nQaoSA1uwUAjRYymUc0hdX ptoXotTL2bWFDakeeww900 NaEpo4brMAKmzRUkROdqQK A9W47pt3Y7 KHAqQAErEUE2pNB7sQ7deI lnbjogbGVmdDsgdmVydGlj SVnhKIjwO011BWQygTbjTh BhdGllbnQg FAlyEVw3L9HuDqltgTO+PC 87QXWoJQ44tYEpjVZxe2vm yRq1WyPqEGIsFOU7zWksRP yxn1FgLCWx J40lwNVfg1V0WUUzbSlzaF KlSlTphWN7hV7uHBimtgbz x6fqfqzgOfgff0gsdc20vZ 56V03iIPuh ZHRoPSIzMCUiIHZhbGlnbj 7ylL9uYn7+GTBonKE3hKV9 zK0bYBXpNaM0YBomN958Ka RvcCIvPjxj a6hsy4itsUp4VqC9RLBhtd UvxKdqJLB9t1KrMq39X53d IHdpZHRoPSIyMCUiIHZhbG fvqr6jqO1k Ii8+EZFglQV7zGH1hM1bPq RxEyI2AKaiW743OzTusCEc CihiZ15nZ4KozDO+PHRyPj k2BHMsoJkn ZY3bwZPdLOfwYg2yXYE9Js ShMhNnTAoyN3ZsAFAwhyue wljptJE5QGDtZIHklI06Bm 9udDogMTBw uFIZgC9fgfytj7otsrqxUq BfSTDdTWz7RSa3CFPntVpn ZbPbVFR8IbR2JZA8uCDqpX 1hbGlnbjog nG6dZ6QsHHYotyjlJa63wK 7hKlAuCoP6RZvrQgu+U0VE NT8NKmdxI5BIKLHHBLVQT0 FSRDwvdGQ+ RODqRGK8nGfgWCtqAKUtbR 7tMDPiC2p2QmQlRhQ2OPaw Y3EeTVQgvtwuMf60tT9zWk CwAfV0PHvt T2RzxpW7ILPyyUSnDRigSR Z4Y24zl7W6DVVjJVNwBLW9 jKP1xU9yjQmyqcyzdMDwpG sgdmVydGlj CDipRZyuS526VCXkvEzbZu IiCoDsWbM7ZcN9M5LcSdf4 UTAjxGxuAF4srJPtZJnxEn 1yaWdodDog FC5mDYBcmuepIQVgqH2xWR TesAZqaAwuTQ2mOFTtrnqb e923XgJzZBD6BJXpuQWxC3 GieM0fWmBo URQnGXDeL5TvfQOrEKmlW1 49CRrzVuK4WIFfvtGuU6Xn AZTvvNzzPaH3c0V5Ux90NF BZZWFyczwv dGQ+TGXcPBF4gVbvMLzcGA ZduA8hJEFbP3a0PuReRlG1 EHdzC8UtJMInaaooAd60wW 6pFcBxViN5 IIetI5JuquL9NLUckJJhFY eaRVS1V92ub5F0TCSyKKMg OIW6zHK6qQ3zqFdgzsroqC VmdDsgdmVy yXfnRYcxXScuA594YCMwbX hoDt5HWBR9X1DmKce2EGHk tTghHS5zgTBsCJstAm4ezH qkwLhbVA6r NCVxwxsyCRBziT8rYXTflI ArlOswZL4wIWAdtkgxt621 LsKkMAK6IWPowPCaG4DkyZ 9yOiAjMDAw MDOtB6GjkKYsAHkjX732NH nrAzO7HOQphoTsD7RmUZLs iPxoNeU1y3M6Hd5QMKpwX8 LqS7IprDcm dGQ+EJ96bi55K4PjIwfwEf u6JFUcBGM4dGY4hY1wKEBz SKxew1L1lYY2D9AcgsLkzf 3lr0tgLKHb SIadU22ykVDxe5S0PCGmpQ Q8AMKooHgsScEozS44Azx+ HJZqnTdia0VtSkesp6txl7 dgwCu7VtKb EMPhpaSgiAppYNL1v1GbWs 12C45zQEadWPEgXAEtMRRq GOTwnJcjaj0hgU1xXe9+PG XpqBV9tDQ6 nY9zGgQeLnN4XApoL714Te TnwAKnYgyim5pgm0kmuMm6 GtKqSSRflcEkyJfzWKF7z0 LvUt55C5Ky dNjfl3VoOut0uz97rABsp7 W5pJL5D3VcGQLquvhdfUKb nWdoEF9hJQApvddhCDTohO 7tVPUkT5u1 VyYqAyT2QJrcV8LbpdS1ZN IarSSjATNoqPJWyD8xiypp z9dvbkblWcWnKZAgZPq2DR r7RASikAdw ZpMsBGJ8IkO7CHN4bVFadD 9qcCidzyxpfJ2oLon+UGh5 i0zulINwRN9kqLR5EX42SZ 84qQBlf8M5 qBT9F9VdTKKnnyyfensbnR I3IHDfSRIilL39Op6hbEru Ao7oQARyFRS5EGTlfHVrD3 FslZ7eFaOl RRJsETJnI2DgrHApSHbkY0 44ZPetWxV7TQTqhzLzK5Vk BEDreUzfYoP7o3H6Mq9DLD 03IW66VV45 cTLzz8V8mNP1E1KbGFBgqp ybctxvmEF8ZUFiTUOytD72 He7anDzlOl8vHCBtSGG0MF TuwPMqF7Hb hN9aRuFxQWTyPLMnZ6XjgU IfQXsiC063XOswPmB3FPWs cgFxC1SgMHOygQeiIwR5z1 F8Yv7HYs83 ZD37LR41oQCft9W5sGV7K5 DvOYQrhwcmmglbsHN9WIQt LOTogG83Jo7pwEiyQa8mFS WmNUN2ACSf cTUkF2ZkvZ6kQlXwPKOcNT YkO3ZcgEJvQHptW731BGmk UkY3DREcvzTsN0TyYVQceG rsBlV9u0Q1 Cb6UZJixhiq0T3RhFtlgeK I+LU12LSEoOC81pSCezREy r8qnvXm7QwVkUVLsQPN7wS nhOJtxl2Mk ZXI (more content not included)... [facility] Provider Orderson 02-25-2025 Provider Orders [id number]#1.00 [facility] Consent Formson 02-22-2025 Consent Forms [id number]#1.00 [facility] Anesthesia Noteon 02-21-2025 Anesthesia Note Patient: RICCARDO HALE Age: 49 years Sex: MALE : 1975 Associated Diagnoses: None Author: Eitan Ramírez MD Postoperative Information Post Operative Note Health Status Allergies: Allergic Reactions (All) No known allergies Problem list: All Problems Chronic sinusitis / SNOMED CT 67829032 / Confirmed Side effect of medication / SNOMED CT 962908223 / Confirmed Headache / SNOMED CT 18097913 / Confirmed Hypertension / SNOMED CT 1040473558 / Confirmed Ileus / SNOMED CT 6280962739 / Confirmed Migraine / SNOMED CT 79462367 / Confirmed Nausea / SNOMED CT 8096862525 / Confirmed Obesity / SNOMED CT 6066826640 / Confirmed GRACIE (obstructive sleep apnea) / SNOMED CT 475568358 / Confirmed Sleep apnea / SNOMED CT 632774778 / Confirmed Umbilical hernia / SNOMED CT 1380105724 / Confirmed Physical Examination Vital Signs (last [...] on: 02/21/2025 08:59 EDT] Eitan Ramírez MD [facility] Anesthesia Note Patient: RICCARDO HALE Age: 49 [...] All Problems Chronic sinusitis / SNOMED CT 15283208 / Confirmed Side effect of medication / SNOMED CT 127913444 / Confirmed Headache / SNOMED CT 41313075 / Confirmed Hypertension / SNOMED CT 3774437642 / Confirmed Ileus / SNOMED CT 6978518256 / Confirmed Migraine / SNOMED CT 71740602 / Confirmed Nausea / SNOMED CT 3500432621 / Confirmed Obesity / SNOMED CT 8558618867 / Confirmed GRACIE (obstructive sleep apnea) / SNOMED CT 077932330 / Confirmed Sleep apnea / SNOMED CT 363406288 / Confirmed Umbilical hernia / SNOMED CT 8495026025 / Confirmed Histories Family History: COPD - [...] 06:34) Review / Management Laboratory Results Plan [place] [employer]hesi[employer] (ASA) physical status classification: Class III. Anesthetic Preoperative Plan Anesthesia: Monitored anesthesia care. Anesthetic plan, risks, benefits, and alternatives discussed with the patient and/or family. Patient verbalized understanding. [Electronically Signed on: 02/21/2025 07:31 EDT] Eitan Ramírez MD [Verified on: 02/21/2025 07:31 EDT] Eitan Ramírez MD [facility] Inpatient Patient Summaryon 02-21-2025 Inpatient Patient Summary [address] [id number] Patient Discharge Instructions Name: RICCARDO HALE : 1975 Patient Address: [address] [place] [address] Primary Care Provider: Name: MILAN NAILS DO After you are discharged if you find you have any questions, please, call [phone] ext [phone] to speak to a nurse. Discharge Diagnosis: [...] problems; contact the [facility] 11/04 Crisis Hotline -Text 4HMVI bn [phone]. If you received any narcotics, sedation, or [...] business decisions or sign any legal documents [facility] would like to thank you for allowing us to assist you with your healthcare needs. The following includes patient education materials and information regarding your injury/illness. RICCARDO HALE has been given the following list of follow-up instructions, prescriptions, and patient education materials: Follow-up Instructions With: Address: When: MILAN NAILS With: Address: When: Martinez Gonzales [address] [place] [address], [address] [place] [address] Business (1) , only if [...] cap(s) Ora (more content not included)... [facility] MAGR Intraoperative Recordon 02-21-2025 MAGR Intraoperative Record MAGR Intra-Op Record Summary Primary Physician: Martinez Gonzales MD Finalized Date/Time: 02/21/25 08:30:12 Pt. Name: RICCARDO HALE/Sex: 1975 MALE Med Rec #: [id number] Physician: Martinez Gonzales MD Financial #: [id number] Pt. Type: D Room/Bed: / Admit/Disch: 02/21/25 [...] Ramírez MD, Debra RN Radloff, Leigh-Ann CSFA GEAR TOOTH GRINDING MACHINE OPERATOR Role Performed Anesthesiologist of Quality Control Microbiology Supervisor Platform Material Handler Manager Record Time In 02/21/25 08:03:00 02/21/25 08:03:00 [...] Ramírez MD, Jessica Arredondo RN, Melvin Causey GEAR TOOTH GRINDING MACHINE OPERATOR, Dale Rothman Last Modified By: Jessica Arredondo [...] RN Airway Maintenance (more content not included)... [facility] MAGR Postoperative Recordon 02-21-2025 MAGR Postoperative Record MAGR Phase II Record Summary Primary Physician: Martinez Gonzales MD Finalized Date/Time: 02/21/25 09:09:46 Pt. Name: LELAND HALEPAUL./Sex: 1975 MALE Med Rec #: [id number] Physician: Martinez Gonzales MD Financial #: [id number] Pt. Type: D Room/Bed: / Admit/Disch: 02/21/25 [...] Signed By: Elvira Hirsch RN 02/21/25 09:09 [facility] Preoperative Recordon 0 02-21-2025 [facility] [place] MAGR Pre-Op Record Summary Primary Physician: Martinez Gonzales MD Finalized Date/Time: 02/21/25 08:05:28 Pt. Name: LELAND HALEPAUL./Sex: 1975 MALE Med Rec #: [id number] Physician: Martinez Gonzales MD Financial #: [id number] Pt. Type: D Room/Bed: / Admit/Disch: 02/21/25 [...] Signed By: Jessica Arredondo RN 02/21/25 08:05 [facility] Patient Handouton 02-21-2025 Patient Handout Gastroenterology Diverticulosis [...] exercise. ? You smoke. ? You take ljil-jew-qzwdtff pain medicines. ? You have a family [...] these instructions at home: Medicines ? Take njxd-bgw-eunkvmg and prescription medicines only as told by your provider. ? If told, take a fiber supplement or probiotic. Managing constipation Your condition may cause constipation. To prevent or treat constipation, you may need to: ? Drink enough fluid to keep your pee (urine) pale yellow. ? Take sazk-acx-cefloqw or prescription medicines. ? Eat foods that [...] provider. Document Revised: 06/02/2023 Document Reviewed: 06/02/2023 [employer] Patient Education ? 2023 [employer]. Radiology Colonoscopy, Adult, Care After The following [...] for 20?30 minutes (more content not included)... [facility] Outside Recordson 02-06-2025 Outside Records [id number]#[id number] [facility] Release of Informationon Release of Information [id number]#[id number] [facility] Coding Summaryon 11-26-2024 Coding Summary HTMLBase 64 ZgdugwyoAFe5gAa+PGhlYW Q+OQ6FFKXnE08txNLvyQ9x W7YWRIcKAbaqXJVCWScCSu DztgGbGQ0ubMNgEROx IC8+WM2rMAHlHxwwrVBkh1 Q3nNE7K73nph9dDNwjaJR3 DTUfFnKedlmnw9aqlMx2ZK cuNmluOyBt VOAmbV32FNU9nR38Bu37tP JpiNRyp6risCl8ByRbSZYs JSU7cLnbIGhzn2AkFFFtS9 0ynRTqt7A8 CFQnyNerpUOmMqPgaMV0kI 4qIWqyhlnyt4tkcuyfCda1 zr94yQLts3T7hGC5V9Wtsc X1VOXweLNl BsnzjJJAgB9mmkcsb3ucja gvAuBeVQWyFMm0GXt1WPHy uTebXkQnSW98MWP8EQIhxv TsR6PjWZUm fRaiDpT8c9N5Yg5WQ0VJSt zeH4NGUHZHUMasoIF+PC90 ps97L7WtDhpkXwn3JWAxOA Q4qQL1fK1z UDOtIKhdj9X5jBP4D5Idkv Lxdu7gf9blGTFbYPasJ67f zZPmf7H4EUEdsEB2KFPzvE pwCrTglW23 Oyc+KZBneQqfy7GcVirkp1 tze1yvyZg8OrpvCKNmogRh iYwtMLK0c0NjIc4mTMThtK Y7zEW3hM9j VjKtRzV8GVaeV581QwOzaA MpYjohF58yS7SwmBA+PHRy Wyg3PKHwqUdzOU5eU7UvUE RpbmctbGVm qEwhES9vHXMhojevISCstN 0kAIZyM0t6AdLaVpZ6HRqn M6XpWOZysozgZz31vS0gKf GtFeB7NNsj F3WeqxN7TKZldWOiHUsaNJ W6W35ia1I9DWAuRHOhIIH4 zIV0lC1rsVelprmdaNZmjC sgdmVydGlj BKtwKEuuF040WLOxxAmpEa NvZGluZyBEYXRlOiAgMDMv MTAvMjAyNTwvdGQ+PHRkIH A9wDktOMBa iDFqLTyuKl6fqTipgLweWI 3hAHQvchzzLFVocP6iAGAr cFJnjDctOH6vSZTewdwpp4 61XdCrXQF0 RWRboQYjM5KmpB5bSpOuEN SqRQGqL1XvvZYmPTlbJ383 VUtyWlI5JFPbotEvB6XfTB FsaWduOiB0 k6M7La0Pe9ZtwqfpI8HumZ JqKwHePtxtHIb5L9EhMcyr dHI+PU55CDAfWP53TOf5UV B3sVzgLEma APVnJ6MysA3gSqIuGRApZE RkOyc+PHRhYmxlIHdpZHRo PHpkGPLeHfJzsHiqLO5mQg 9yZGVyLWNv wWjmhWIwHzZaa4snBACcSJ xxZQ9jxSsjJ9NurSI0MJOl b3k5Hr32X73bJ4LjdFU+PG OngCF7qWI2 pA0fXgNkToL9JZfyR540Qc DtbXDpJzhvt0qqb1fpeRv3 LgD3QWCvjoNrfCgqLXH0k8 EpXi93M32k IHdpZHRoPSIxNSUiIHZhbG lknw6ywN3dBj0+PGNvbCB3 dIN6mJ3xJnXfQpY6SOieA4 49InRvcCIv Jivwe3hhz9jgoFp2TpDsMP EnqaHnnYpuPTG5n7UvTg68 H2XulPuaz3AgDco8eg11sI Yef2N9sCX4 D6QsDZAvwsfgePXglBrdQW 5yQFGfmwlfMOUydN1pCUBq B8h1KkStBfK9WPyuM7Snqb A9LYYbhWEk LGAqhCBEqT1aeoora6hxym uaNyJdKBMsWRg2XFw9JYDf bNtpSqVvEFJ9AbV8KGI2hR KknS4ioFib nzzcjV6fGrh+AFD0bJGcbP XAMT7tWpouzCN+PHRkIHN0 fThjVMskLESwnJ3mNTUmC2 f9SvSdHiY4 SSmlC2ZyblM5EXFgzRWwTK PjwPCTgQ4mlbawc0zaewso QrFfIXVqDKy3AWj2NLPkmO duOiBsZWZ0 NiB0XWE0eVIpwF8lrHosnn oklT9pDbl+QmlydGggRGF0 DYe1P0ItUdi8HBXcjGarYA 0ncGFkZGlu Op5ryEjaaYcjNQ1kUPQqhg dzd767HsVqo5lrKOQabNVn LHchGKB1T84sn2G1OWUqXZ ZkTYM7cNX8 aV2cpZbsqnkmbQEwcWgffh FtqJxgORxvYAzmK553NJSq eArbAyZnUXm2X2VzZar4HQ LcgCukCN0u kTBxOLkfRz1pyYvipOcfDV 3vGQQjdsoof548DiScw3pv XLQtjHYnLVxvCMO1N68un4 D1XSGgOKTs OOX2qTO5iR6gqQlvbjroyE VmdDsgdmVydGljYWwtYWxp C729DIColNhpTnJfkWv1K1 GkGvm0WXZy qQjkPV3auOCxYMdaFd0txA ocoQhxUY2oVXJkcwapp585 AvUmi3jlZWVwqXBpOOuvHN X9Z26ks8T4 VYWtQWCdTXF1rMU5pA8phB lnbjogbGVmdDsgdmVydGlj XBmlJFsqN457NTWhbZpkLr BhdGllbnQg BBjiUIw0Z4KaWbslwKQ+PC 50EMAbDQ05uHSswYLpo0dh rCo5AeRaRHXhAYA5bDdcCC lll2UwVWSg Q14acIMik0C1MSDmbRbseL UeYbNriVR0uL6lIRekwbqi d1xckyvpHxnfr5ltqo92vE 28H22xMMmk ZHRoPSIzMCUiIHZhbGlnbj 3doT9sWr0+OKSmjMS8yES9 cM5eYAPzSnT4PIbcP733Nx RvcCIvPjxj r0xuc1kvuFp8PrO2FRLvcy JscXgnAZJ1g1DbTw99J89k IHdpZHRoPSIyMCUiIHZhbG edue2wwR9y Ii8+HFMfnIX3bDQ8fL9yXq QrTbN9FAyjC757ZnTdbIRf PwpdL95tT9OyqUG+PHRyPj c8NXDlvRta PP8zaPAzKObrRe1fPCD6Gs DuDcBnOWjaE2KhYHWrleba zjoshCD3VECxKADjgX42Fu 9udDogMTBw mDJJrQ0efmxas9bfuxouLl TsIAXhORs0BBm2KSXaqBbp VwCwLCI8VlJ3TRA5bSFzkL 1hbGlnbjog mN6gP4PoMIKrresuMo72aS 6lUrIeUaV8TFttIps+U0VE NA5SSuibN2AUBZHAOEYPX5 FSRDwvdGQ+ TDDmTTN4jKnfFEkiRYJmhN 1gYWIvO3e2TlApWwU8VHvl W2RsSWLiibkrVs91mU5aIg LuSoX1KBwj T2SmzeF9JQXegDPkWRtqLX U9E72zf2Z6OOKmWHFcDQL1 sBU6mV4jpSybztxtmDVsqF sgdmVydGlj UXviPWgbN957OAHfjTbrGj OxWaYmCnH4RxP6D6QrCeb0 XDKpbEnvMH7zgWJeAHicPt 1yaWdodDog LR3lNSCeezwvNPKfoL3fRU RuoNZjgXssAV6oOLIpnlbc g743LaYiZJC9NFUwrOTbY2 KtvR9kWnXt OESyYWSeC3YouFLsQMocX3 79RNnqOgY1PVCibjBqU6Nq JZWadKdsGmA5v5O8Rv98CH BZZWFyczwv dGQ+PVHbOXH5bOncXPlfIW BatR7bRFTxR1h4ZbTkYhS9 XVxqN9JqFWVejuuvQo50qS 8bNeWzBwW4 YUqrP5FjdfQ3PCZcaHEyUO gvCPF3C94cx2W6TKCbOGAj LZX9cGN6wC3paCumtmbwjI VmdDsgdmVy xHkuELbyBVjnU203KRRraA oyEt7VNWQ2I5FhZrs0GVHn cYbcXM0zwREcCDwnCi9fiA tieIydWQ6u CDHpvnvpOWXjbC0pFWWaxF DqtDsoID8gBEEgfgous491 EbPxDIY2PDJmyCHwX4HadX 9yOiAjMDAw VYXrM0OtxVOvFMteN355CQ cgKuV1VPNsufUjK3GwRBAw iCxrWwM9r5A0Vv0PJMceqQ Q+SL69vd17 S2CtMyndWhl3LVEcQUB5xN Y2eO7sPZZmZEjyx7J6eUP0 X4EpdyBpzg6wl6yfXORmXL vsS95raRUi y3G9IUFukXA7NRAlwEgvLi DvtS71Jyb+UGBtwWrgx1Kx Oaktz9sma1yniKk9TpIfHK IgdmFsaWdu LRG7w9MpBf81W66gNGjqEV VbIVFcVTOaUENebPvxfy0r xO8lTi7+PPZxvXZ1cUD3tV 7qLvIpKgO9 KVqxO745OzXzyQZvUpzpr2 vfn3yxnZh6ZkYhQWMxveSs cHkrZGT1q3DyJo26K9LrdP how4MdAoi5 ab58rNEbc7C1jRG7J4NwCD XjbynmkNVzyUhdJM8nLOUq qcjkIDFphN5uHDVcF8z2Kw WoRuG9EXrs O3BmjyZ7SUNxaMDiAAXvjY AAeH4taoech0sruwspXfBe GUZrBCf0USv8RZIwbEnpDz GfCUQ0GuA8 DKR7pPIvmL2cnMbrpihdzC 9wOyc+IDe3b9pgdDFjON8h bYS2JB07EZ72sWWha5H7tY Y5P6AyJGMe rqulqgvcqHA6YTZuNLIqaQ 77Pu1zqFyiLh9vUHNfTSD0 AEOnpQQiN1EgrJ1xPgAxJD OkAYCkU6Dj aSNvFYccD659LZxmExU1BY JwauMiJ8RoJTDgiCzmFgY7 a7H0Rq5GIP42PS28TJ47cE Iys1L7qYF6 J5ZtEHLxmtocxusxuKG8PB WgEXEohW06Aa0bwQucMi5v FITtIAH9WCMsjMRuD7VjaJ 9yOiAjMDAw JYZjI9CogSNuUEdmO561NJ mtHnU2CQNxwkLnD8NvKWEg vNewBnJ9x7I4Qh0LZa45EY 27MY57tNMq r0S0rOL6V2OaAGEycmrilr bvwPN6KTNuZBXfmX58Lt8r cGkhOr1cVASiLBM9EHRigC ItJ2WhvC4q AeBwIEWnOCWbP9OiqLJlGR lsM587TKlzIrQ1CYRbtsLh L2ZpJAXxmEphWyJ8u3A1Ls 0KYNsoroi1 S8UbIkxdbAN+CG75WDWrAR 67lGLraJVss0qieTp1MiPy EGSrSLY2xTybGEixv3IcKD HtB34etVTz c2U (more content not included)... [facility] Reminder Messageson 11-20-19 25 Reminder Messages - From: MILAN NAILS DO To: [facility] [place] [place] Sent: 11/19/2024 07:59:43 EST ! Show up: 11/19/2024 07:59:43 EST Subject: Results Follow Up Actions: Call the patient with result(s) Due Date/Time: 11/20/2024 07:59:00 EST Reminder Comments: cysts seen in both maxillary sinuses. suggest ent referral Results: Date Result Type Result Name 11/16/2024 9:[address] Sinus w/o Contrast Order placed [facility] Outside Recordson 11-08-2024 Outside Records [id number]#1.0 0OTGTIFF [facility] Outside Record[facility] 08-09-2024 Outside Records [id number]#1. 00OTGTIFF [facility] CBC AND AUTO DIFFon 07-27-20 ABSOLUTE BASOPHIL 0.1 X10E9/L Normal 0.0-0.2 [facility] Comment on above: Performed By: #### Yousif HERRERA CMP, 3040-3 #### ([id number]) [address] [place] [address] 89775 ABSOLUTE NEUTROPHIL 5.7 X10E9/L Normal 1.5-6.6 [facility] Comment on above: Performed By: #### Yousif HERRERA CMP, 3040-3 #### ([id number]) [address] [place] [address] 12158 Basophils/100 WBC (Bld) 0.6 % Normal [facility] Comment on above: Performed By: #### Yousif HERRERA CMP, 3040-3 #### ([id number]) [address] [place] [address] 95299 Eosinophils (Bld) [#/Vol] 0.2 10*3/uL Normal 0.0-0.4 [facility] Comment on above: Performed By: #### Yousif HERRERA CMP, 3040-3 #### ([id number]) [address] [place] [address] 02807 Eosinophils/100 WBC (Bld) 2.4 % Normal [facility] Comment on above: Performed By: #### Yousif HERRERA CMP, 3039-11 #### ([id number]) [address] [place] [address] 32429 Erythrocyte distribution width (RBC) [Ratio] 12.8 % Normal 11.5-15.0 [facility] Comment on above: Performed By: #### Yousif HERRERA CMP, 3039-11 #### ([id number]) [address] [place] [address] 09464 Hematocrit (Bld) [Volume fraction] 40.2 % Normal 39-49 [facility] Comment on above: Performed By: #### Yousif HERRERA CMP, 3039-11 #### ([id number]) [address] [place] [address] 36622 Hemoglobin (Bld) [Mass/Vol] 13.4 g/dL Normal 13.0-17.0 [facility] Comment on above: Performed By: #### Yousif HERRERA [facility], 3039-11 #### ([id number]) [address] [place] [address] 47425 Lymphocytes (Bld) [#/Vol] 2.5 10*3/uL Normal 1.0-3.5 [facility] Comment on above: Performed By: #### Yousif HERRERA CMP, 3039-11 #### ([id number]) [address] [place] [address] 64338 Lymphocytes/100 WBC (Bld) 26.9 % Normal [facility] Comment on above: Performed By: #### Yousif HERRERA CMP, 3039-11 #### ([id number]) [address] [place] [address] 06121 MCH (RBC) [Entitic mass] 28.9 pg Normal 27-34 [facility] Comment on above: Performed By: #### Yousif HERRERA CMP, 3039-3 #### ([id number]) [address] [place] [address] 49442 MCHC (RBC) [Mass/Vol] 33.4 g/dL Normal 32-36 [facility] Comment on above: Performed By: #### Yousif HERRERA CMP, 3039-3 #### ([id number]) [address] [place] [address] 70930 MCV (RBC) [Entitic vol] 87 fL Normal 80-100 [facility] Comment on above: Performed By: #### Yousif HERRERA CMP, 3 #### ([id number]) [address] [place] [address] 33816 Monocytes (Bld) [#/Vol] 0.9 10*3/uL Normal 0-0.9 [facility] Comment on above: Performed By: #### Yousif HERRERA CMP, 3039-3 #### ([id number]) [address] [place] [address] 34640 Monocytes/100 WBC (Bld) 9.2 % Normal [facility] Comment on above: Performed By: #### Yousif HERRERA CMP, 3039-3 #### ([id number]) [address] [place] [address] 44703 Neutrophils/100 WBC (Bld) 60.9 % Normal [facility] Comment on above: Performed By: #### Yousif HERRERA CMP, 3 #### ([id number]) [address] [place] [address] 74008 Platelet mean volume (Bld) [Entitic vol] 8.7 fL Normal 7-12 [facility] Comment on above: Performed By: #### Yousif HERRERA CMP, 3039-3 #### ([id number]) [address] [place] [address] 79920 Platelets (Bld) [#/Vol] 351 10*3/uL Normal 150-450 [facility] Comment on above: Performed By: #### C BCA, CMP, 3039-3 #### ([id number]) [address] [place] [address] 63077 RBC COUNT 4.64 X10E12/L Normal 4.10-5.70 [facility] Comment on above: Performed By: #### C BCA, CMP, 3039-11 #### ([id number]) [address] [place] [address] 27454 WBC (Bld) [#/Vol] 9.3 10*3/uL Normal 4.0-11.0 [facility] Comment on above: Performed By: #### C BCA, CMP, 3 #### ([id number]) [address] [place] [address] 52701 COMPREHENSIVE METABOLIC PANE Brian 07-27-2024 Albumin [Mass/Vol] 3.8 g/dL Normal 3.2-5.3 [facility] Comment on above: Performed By: #### C BCA, CMP, 3 #### ([id number]) [address] [place] [address] 89883 ALP [Catalytic activity/Vol] 53 U/L Normal 39-130 [facility] Comment on above: Performed By: #### C BCA, CMP, 3 #### ([id number]) [address] [place] [address] 79232 ALT [Catalytic activity/Vol] 16 U/L Normal 0-40 [facility] Comment on above: Performed By: #### C BCA, CMP, 3039-3 #### ([id number]) [address] [place] [address] 75665 Anion gap [Moles/Vol] 9 mmol/L Normal 5-15 [facility] Comment on above: Performed By: #### C BCA, CMP, 0-3 #### ([id number]) [address] [place] [address] 38985 AST [Catalytic activity/Vol] 15 U/L Normal 0-41 [facility] Comment on above: Performed By: #### C JAVIER, CMP, 3 #### ([id number]) [address] [place] [address] 62378 Bilirubin [Mass/Vol] 1.0 mg/dL Normal 0.3-1.2 [facility] Comment on above: Performed By: #### Yousif HERRERA, CMP, 3 #### ([id number]) [address] [place] [address] 44005 Calcium [Mass/Vol] 8.8 mg/dL Normal 8.5-10.5 [facility] Comment on above: Performed By: #### C JAVIER, [facility], 3 #### ([id number]) [address] [place] [address] 08332 Chloride [Moles/Vol] 106 mmol/L Normal 98-109 [facility] Comment on above: Performed By: #### C BCA, CMP, 3039-3 #### ([id number]) [address] [place] [address] 61561 CO2 [Moles/Vol] 25 mmol/L Normal 22-32 [facility] Comment on above: Performed By: #### C BCA, CMP, 3039-3 #### ([id number]) [address] [place] [address] 15540 Creatinine [Mass/Vol] 0.83 mg/dL Normal 0.70-1.20 [facility] Comment on above: Result Comment: METH OD TRACEABLE TO IDMS STANDARD Performed By: #### C ANTONIETTA HERRERA, 3040-3 #### ([id number]) [address] [place] [address] 92674 eGFR (CKD-EPI) NON-RACE DEPENDENT >90 Normal >59 [facility] Comment on above: Result Comment: Reported eGFR is based on the CKD-EPI 2020 equation that does not use a race coefficient. Performed By: #### C ANTONIETTA HERRERA, 3039-3 #### ([id number]) [address] [place] [address] 91452 Glucose [Mass/Vol] 103 mg/dL High 65-99 [facility] Comment on above: Performed By: #### Yosuif HERRERA CMP, 3 #### ([id number]) [address] [place] [address] 68326 Potassium [Moles/Vol] 4.3 mmol/L Normal 3.5-5.0 [facility] Comment on above: Performed By: #### Yousif HERRERA [facility], 3 #### ([id number]) [address] [place] [address] 34569 Protein [Mass/Vol] 6.3 g/dL Normal 6.0-8.0 [facility] Comment on above: Performed By: #### C ANTONIETTA HERRERA, 3 #### ([id number]) [address] [place] [address] 45877 Sodium [Moles/Vol] 140 mmol/L Normal 134-146 [facility] Comment on above: Performed By: #### Yousif HERRERA CMP, 0-3 #### ([id number]) [address] [place] [address] 38799 Urea nitrogen [Mass/Vol] 5 mg/dL Normal 5-23 [facility] Comment on above: Performed By: #### Yousif HERRERA CMP, 0-3 #### ([id number]) [address] [place] [address] 52761 MAGNESIUMon 07-27-2024 Magnesium [Mass/Vol] 2.1 mg/dL Normal 1.8-2.6 [facility] Comment on above: Performed By: #### Yousif HERRERA CMP, 3039-3 #### ([id number]) [address] [place] [address] 09597 CBC AND AUTO DIFFon 07-26-20 24 ABSOLUTE BASOPHIL 0.0 X10E9/L Normal 0.0-0.2 [facility] Comment on above: Performed By: #### Yousif HERRERA CMP, 3039-3 #### ([id number]) [address] [place] [address] 26812 ABSOLUTE NEUTROPHIL 5.6 X10E9/L Normal 1.5-6.6 [facility] Comment on above: Performed By: #### Youisf EHRRERA CMP, 3039-3 #### ([id number]) [address] [place] [address] 87088 Basophils/100 WBC (Bld) 0.5 % Normal [facility] Comment on above: Performed By: #### Yousif HERRERA CMP, 3039-3 #### ([id number]) [address] [place] [address] 21540 Eosinophils (Bld) [#/Vol] 0.3 10*3/uL Normal 0.0-0.4 [facility] Comment on above: Performed By: #### Yousif HERRERA CMP, 3039-3 #### ([id number]) [address] [place] [address] 97536 Eosinophils/100 WBC (Bld) 3.7 % Normal [facility] Comment on above: Performed By: #### Yousif HERRERA CMP, 3039-11 #### ([id number]) [address] [place] [address] 97491 Erythrocyte distribution width (RBC) [Ratio] 12.7 % Normal 11.5-15.0 [facility] Comment on above: Performed By: #### Yousif HERRERA [facility], 3039-11 #### ([id number]) [address] [place] [address] 90613 Hematocrit (Bld) [Volume fraction] 41.7 % Normal 39-49 [facility] Comment on above: Performed By: #### Yousif HERRERA [facility], 3039-11 #### ([id number]) [address] [place] [address] 88400 Hemoglobin (Bld) [Mass/Vol] 14.4 g/dL Normal 13.0-17.0 [facility] Comment on above: Performed By: #### Yousif HERRERA [facility], 3039-11 #### ([id number]) [address] [place] [address] 78431 Lymphocytes (Bld) [#/Vol] 2.2 10*3/uL Normal 1.0-3.5 [facility] Comment on above: Performed By: #### Yousif HERRERA CMP, 3039-11 #### ([id number]) [address] [place] [address] 12255 Lymphocytes/100 WBC (Bld) 25.4 % Normal [facility] Comment on above: Performed By: #### Yousif HERRERA CMP, 3039-11 #### ([id number]) [address] [place] [address] 13309 MCH (RBC) [Entitic mass] 29.7 pg Normal 27-34 [facility] Comment on above: Performed By: #### Yousif HERRERA, CMP, 3040-3 #### ([id number]) [address] [place] [address] 76344 MCHC (RBC) [Mass/Vol] 34.5 g/dL Normal 32-36 [facility] Comment on above: Performed By: #### C ANTONIETTA HERRERA, 3040-3 #### ([id number]) [address] [place] [address] 98877 MCV (RBC) [Entitic vol] 86 fL Normal 80-100 [facility] Comment on above: Performed By: #### Yousif HERRERA CMP, 3039-3 #### ([id number]) [address] [place] [address] 54110 Monocytes (Bld) [#/Vol] 0.7 10*3/uL Normal 0-0.9 [facility] Comment on above: Performed By: #### Yousif HERRERA CMP, 3 #### ([id number]) [address] [place] [address] 60407 Monocytes/100 WBC (Bld) 7.4 % Normal [facility] Comment on above: Performed By: #### Yousif HERRERA CMP, 3 #### ([id number]) [address] [place] [address] 66430 Neutrophils/100 WBC (Bld) 63.0 % Normal [facility] Comment on above: Performed By: #### Yousif HERRERA CMP, 3 #### ([id number]) [address] [place] [address] 84570 Platelet mean volume (Bld) [Entitic vol] 8.6 fL Normal 7-12 [facility] Comment on above: Performed By: #### Yousif HERRERA CMP, 3039-3 #### ([id number]) [address] [place] [address] 11615 Platelets (Bld) [#/Vol] 345 10*3/uL Normal 150-450 [facility] Comment on above: Performed By: #### C ANTONIETTA HERRERA, 0-3 #### ([id number]) [address] [place] [address] 10068 RBC COUNT 4.84 X10E12/L Normal 4.10-5.70 [facility] Comment on above: Performed By: #### Yousif HERRERA CMP, 3039-3 #### ([id number]) [address] [place] [address] 64211 WBC (Bld) [#/Vol] 8.8 10*3/uL Normal 4.0-11.0 [facility] Comment on above: Performed By: #### Yousif HERRERA CMP, 3039-3 #### ([id number]) [address] [place] [address] 38522 COMPREHENSIVE METABOLIC PANE [facility] 07-26-2024 Albumin [Mass/Vol] 3.9 g/dL Normal 3.2-5.3 [facility] Comment on above: Performed By: #### Yousif HERRERA CMP, 3039-3 #### ([id number]) [address] [place] [address] 94762 ALP [Catalytic activity/Vol] 57 U/L Normal 39-130 [facility] Comment on above: Performed By: #### Yousif HERRERA CMP, 0-3 #### ([id number]) [address] [place] [address] 09635 ALT [Catalytic activity/Vol] 21 U/L Normal 0-40 [facility] Comment on above: Performed By: #### Yousif HERRERA CMP, 0-3 #### ([id number]) [address] [place] [address] 33646 Anion gap [Moles/Vol] 9 mmol/L Normal 5-15 [facility] Comment on above: Performed By: #### C BCA, CMP, 3039-3 #### ([id number]) [address] [place] [address] 77481 AST [Catalytic activity/Vol] 18 U/L Normal 0-41 [facility] Comment on above: Performed By: #### C BCA, CMP, 3039-3 #### ([id number]) [address] [place] [address] 40442 Bilirubin [Mass/Vol] 0.9 mg/dL Normal 0.3-1.2 [facility] Comment on above: Performed By: #### C BCA, CMP, 3 #### ([id number]) [address] [place] [address] 77546 Calcium [Mass/Vol] 8.8 mg/dL Normal 8.5-10.5 [facility] Comment on above: Performed By: #### C BCA, CMP, 3039-3 #### ([id number]) [address] [place] [address] 91950 Chloride [Moles/Vol] 106 mmol/L Normal 98-109 [facility] Comment on above: Performed By: #### C BCA, CMP, 3 #### ([id number]) [address] [place] [address] 50605 CO2 [Moles/Vol] 23 mmol/L Normal 22-32 [facility] Comment on above: Performed By: #### C BCA, CMP, 3039-3 #### ([id number]) [address] [place] [address] 66628 Creatinine [Mass/Vol] 0.80 mg/dL Normal 0.70-1.20 [facility] Comment on above: Result Comment: METH OD TRACEABLE TO IDMS STANDARD Performed By: #### C BCA, CMP, 0-3 #### ([id number]) [address] [place] [address] 88851 eGFR (CKD-EPI) NON-RACE DEPENDENT >90 Normal >59 [facility] Comment on above: Result Comment: Reported eGFR is based on the CKD-EPI 2021 equation that does not use a race coefficient. Performed By: #### Yousif HERRERA CMP, 3040-3 #### ([id number]) [address] [place] [address] 65716 Glucose [Mass/Vol] 83 mg/dL Normal 65-99 [facility] Comment on above: Performed By: #### Yousif HERRERA CMP, 3039-3 #### ([id number]) [address] [place] [address] 57916 Potassium [Moles/Vol] 3.4 mmol/L Low 3.5-5.0 [facility] Comment on above: Performed By: #### Yousif HERRERA CMP, 3039-3 #### ([id number]) [address] [place] [address] 22233 Protein [Mass/Vol] 6.6 g/dL Normal 6.0-8.0 [facility] Comment on above: Performed By: #### Yousif HERRERA CMP, 3040-3 #### ([id number]) [address] [place] [address] 78350 Sodium [Moles/Vol] 138 mmol/L Normal 134-146 [facility] Comment on above: Performed By: #### Yousif HERRERA CMP, 0-3 #### ([id number]) [address] [place] [address] 87479 Urea nitrogen [Mass/Vol] 8 mg/dL Normal 5-23 [facility] Comment on above: Performed By: #### Yousif HERRERA CMP, 0-3 #### ([id number]) [address] [place] [address] 41707 MAGNESIUMon 07-26-2024 Magnesium [Mass/Vol] 2.0 mg/dL Normal 1.8-2.6 [facility] Comment on above: Performed By: #### Yousif HERRERA CMP, 3040-3 #### ([id number]) [address] [place] [address] 12925 POTASSIUMon 07-26-2024 Potassium [Moles/Vol] 3.3 mmol/L Low 3.5-5.0 [facility] Comment on above: Performed By: #### Yousif HERRERA CMP, 3040-3 #### ([id number]) [address] [place] [address] 50835 Potassium [Moles/Vol] 3.1 mmol/L Low 3.5-5.0 [facility] Comment on above: Performed By: #### Yousif HERRERA CMP, 3040-3 #### ([id number]) [address] [place] [address] 95352 XR ABDOMEN AP 1 VWon 024 XR [...] Valenzuela MD on 07/26/2024 8:55 AM Normal [facility] CBC AND AUTO DIFFon 07-25-20 24 ABSOLUTE BASOPHIL 0.1 X10E9/L Normal 0.0-0.2 [facility] Comment on above: Performed By: #### Yousif HERRERA CMP, 88484-9 #### ([id number]) [address] [place] [address] 60406 ABSOLUTE NEUTROPHIL 4.3 X10E9/L Normal 1.5-6.6 [facility] Comment on above: Performed By: #### C JAVIER [facility], 45201-8 #### ([id number]) [address] [place] [address] 72751 Basophils/100 WBC (Bld) 0.7 % Normal [facility] Comment on above: Performed By: #### C JAVIER CMP, #### ([id number]) [address] [place] [address] 77963 Eosinophils (Bld) [#/Vol] 0.4 10*3/uL Normal 0.0-0.4 [facility] Comment on above: Performed By: #### Yousif HERRERA [facility], #### ([id number]) [address] [place] [address] 23451 Eosinophils/100 WBC (Bld) 4.5 % Normal [facility] Comment on above: Performed By: #### Yousif HERRERA [facility], #### ([id number]) [address] [place] [address] 74348 Erythrocyte distribution width (RBC) [Ratio] 12.9 % Normal 11.5-15.0 [facility] Comment on above: Performed By: #### Yousif HERRERA [facility], #### ([id number]) [address] [place] [address] 60712 Hematocrit (Bld) [Volume fraction] 40.5 % Normal 39-49 [facility] Comment on above: Performed By: #### Yousif HERRERA CMP, #### ([id number]) [address] [place] [address] 05967 Hemoglobin (Bld) [Mass/Vol] 13.8 g/dL Normal 13.0-17.0 [facility] Comment on above: Performed By: #### Yousif HERRERA CMP, #### ([id number]) [address] [place] [address] 74026 Lymphocytes (Bld) [#/Vol] 2.7 10*3/uL Normal 1.0-3.5 [facility] Comment on above: Performed By: #### Yousif HERRERA CMP, #### ([id number]) [address] [place] [address] 26365 Lymphocytes/100 WBC (Bld) 32.2 % Normal [facility] Comment on above: Performed By: #### Yousif HERRERA CMP, #### ([id number]) [address] [place] [address] 22828 MCH (RBC) [Entitic mass] 29.5 pg Normal 27-34 [facility] Comment on above: Performed By: #### Yousif HERRERA [facility], #### ([id number]) [address] [place] [address] 25580 MCHC (RBC) [Mass/Vol] 34.0 g/dL Normal 32-36 [facility] Comment on above: Performed By: #### Yousif HERRERA [facility], #### ([id number]) [address] [place] [address] 16818 MCV (RBC) [Entitic vol] 87 fL Normal 80-100 [facility] Comment on above: Performed By: #### Yousif HERRERA CMP, #### ([id number]) [address] [place] [address] 78856 Monocytes (Bld) [#/Vol] 1.0 10*3/uL High 0-0.9 [facility] Comment on above: Performed By: #### Yousif HERRERA CMP, #### ([id number]) [address] [place] [address] [place] [address] Monocytes/100 WBC (Bld) 11.8 % Normal [facility] Comment on above: Performed By: #### Yousif HERRERA CMP, 97907-8 #### ([id number]) [address] [place] [address] 79436 Neutrophils/100 WBC (Bld) 50.8 % Normal [facility] Comment on above: Performed By: #### Yousif HERRERA CMP, 51218-7 #### ([id number]) [address] [place] [address] 13140 Platelet mean volume (Bld) [Entitic vol] 8.6 fL Normal 7-12 [facility] Comment on above: Performed By: #### Yousif HERRERA CMP, 37828-1 #### ([id number]) [address] [place] [address] 97291 Platelets (Bld) [#/Vol] 355 10*3/uL Normal 150-450 [facility] Comment on above: Performed By: #### Yousif HERRERA CMP, 84119-2 #### ([id number]) [address] [place] [address] 44749 RBC COUNT 4.67 X10E12/L Normal 4.10-5.70 [facility] Comment on above: Performed By: #### Yousif HERRERA CMP, 64967-5 #### ([id number]) [address] [place] [address] 06748 WBC (Bld) [#/Vol] 8.4 10*3/uL Normal 4.0-11.0 [facility] Comment on above: Performed By: #### Yousif HERRERA CMP, 97286-4 #### ([id number]) [address] [place] [address] 27169 COMPREHENSIVE METABOLIC PANE [facility] 07-25-2024 Albumin [Mass/Vol] 3.7 g/dL Normal 3.2-5.3 [facility] Comment on above: Performed By: #### C JAVIER, CMP, #### ([id number]) [address] [place] [address] 41860 ALP [Catalytic activity/Vol] 56 U/L Normal 39-130 [facility] Comment on above: Performed By: #### C BCA, CMP, #### ([id number]) [address] [place] [address] 32151 ALT [Catalytic activity/Vol] 21 U/L Normal 0-40 [facility] Comment on above: Performed By: #### C BCA, CMP, #### ([id number]) [address] [place] [address] 22728 Anion gap [Moles/Vol] 5 mmol/L Normal 5-15 [facility] Comment on above: Performed By: #### C BCA, CMP, #### ([id number]) [address] [place] [address] 15883 AST [Catalytic activity/Vol] 16 U/L Normal 0-41 [facility] Comment on above: Performed By: #### C BCA, CMP, #### ([id number]) [address] [place] [address] 37464 Bilirubin [Mass/Vol] 0.8 mg/dL Normal 0.3-1.2 [facility] Comment on above: Performed By: #### C BCA, CMP, #### ([id number]) [address] [place] [address] 60608 Calcium [Mass/Vol] 8.4 mg/dL Low 8.5-10.5 [facility] Comment on above: Performed By: #### C BCA, CMP, #### ([id number]) [address] [place] [address] 69885 Chloride [Moles/Vol] 110 mmol/L High 98-109 [facility] Comment on above: Performed By: #### C ANTONIETTA HERRERA, 73977-7 #### ([id number]) [address] [place] [address] 41342 CO2 [Moles/Vol] 23 mmol/L Normal 22-32 [facility] Comment on above: Performed By: #### C ANTONIETTA HERRERA, 61385-5 #### ([id number]) [address] [place] [address] 70369 Creatinine [Mass/Vol] 0.94 mg/dL Normal 0.70-1.20 [facility] Comment on above: Result Comment: METH OD TRACEABLE TO IDMS STANDARD Performed By: #### C ANTONIETTA HERRERA, 92323-9 #### ([id number]) [address] [place] [address] 74728 eGFR (CKD-EPI) NON-RACE DEPENDENT >90 Normal >59 [facility] Comment on above: Result Comment: Reported eGFR is based on the CKD-EPI 2021 equation that does not use a race coefficient. Performed By: #### C ANTONIETTA HERRERA, 45919-0 #### ([id number]) [address] [place] [address] 03858 Glucose [Mass/Vol] 102 mg/dL High 65-99 [facility] Comment on above: Performed By: #### C ANTONIETTA HERRERA, 72441-8 #### ([id number]) [address] [place] [address] 47566 Potassium [Moles/Vol] 3.6 mmol/L Normal 3.5-5.0 [facility] Comment on above: Performed By: #### C ANTONIETTA HERRERA, #### ([id number]) [address] [place] [address] Protein [Mass/Vol] 6.3 g/dL Normal 6.0-8.0 [facility] Comment on above: Performed By: #### C BCA, CMP, 43749-0 #### ([id number]) [address] [place] [address] Sodium [Moles/Vol] 138 mmol/L Normal 134-146 [facility] Comment on above: Performed By: #### C BCA, CMP, 43043-4 #### ([id number]) [address] [place] [address] 13841 Urea nitrogen [Mass/Vol] 12 mg/dL Normal 5-23 [facility] Comment on above: Performed By: #### C BCA, CMP, 86215-7 #### ([id number]) [address] [place] [address] ABDOM[address] AND PELVIS W CONT on [...] Findings Committee. J Am Ag Radiol. 2017 Apr;14(8):0385-[address] scans at this facility use dose modulation, iterative reconstruction, and/or weight based dosing when appropriate to reduce radiation dose to as low as reasonably achievable. Finalized by Bam Camejo MD on 07/25/2024 10:48 AM Normal [facility] Glucose Glucometer (BldC) [M ass/Vol]on 07-25-2024 Glucose [Mass/Vol] 76 mg/dL Normal 65-99 [facility] MAGNESIUMon 07-25-2024 Magnesium [Mass/Vol] 1.9 mg/dL Normal 1.8-2.6 [facility] Comment on above: Performed By: #### C JAVIER, [facility], 81242-4 #### ([id number]) [address] [place] [address], [place] [address] XR CHEST 1 VWon 07-25-2024 XR CHEST [...] extends below the diaphragm and off the szjbe-bh-mpyz. IMPRESSION: 1. No acute cardiopulmonary disease. 2. Moderate-sized hiatal hernia. There is a gastric tube with the tip extending below the diaphragm and off the qitxa-mh-jkju. Finalized by Francisco Bangura MD on 07/25/2024 5:24 PM Normal [facility] XR CHEST 1 VW XR CHEST 1 [...] Carlisle MD on 07/25/2024 3:36 PM Normal [facility] CBC AND AUTO DIFFon 07-24-20 ABSOLUTE BASOPHIL 0.1 X10E9/L Normal 0.0-0.2 [facility] Comment on above: Performed By: #### C JAVIER CMP, 3040-3 #### ([id number]) [address] [place] [address] 70134 ABSOLUTE NEUTROPHIL 7.3 X10E9/L High 1.5-6.6 [facility] Comment on above: Performed By: #### C JAVIER CMP, 3040-3 #### ([id number]) [address] [place] [address] 16621 Basophils/100 WBC (Bld) 1.0 % Normal [facility] Comment on above: Performed By: #### C JAVIER CMP, 3040-3 #### ([id number]) [address] [place] [address] Eosinophils (Bld) [#/Vol] 0.3 10*3/uL Normal 0.0-0.4 [facility] Comment on above: Performed By: #### Yousif HERRERA CMP, 3039-3 #### ([id number]) [address] [place] [address] 38241 Eosinophils/100 WBC (Bld) 2.5 % Normal [facility] Comment on above: Performed By: #### Yousif HERRERA [facility], 3039-11 #### ([id number]) [address] [place] [address] 34119 Erythrocyte distribution width (RBC) [Ratio] 13.0 % Normal 11.5-15.0 [facility] Comment on above: Performed By: #### Yousif HERRERA CMP, 3039-11 #### ([id number]) [address] [place] [address] 26130 Hematocrit (Bld) [Volume fraction] 47.6 % Normal 39-49 [facility] Comment on above: Performed By: #### Yousif HERRERA [facility], 3039-11 #### ([id number]) [address] [place] [address] 82366 Hemoglobin (Bld) [Mass/Vol] 16.2 g/dL Normal 13.0-17.0 [facility] Comment on above: Performed By: #### Yousif HERRERA CMP, 3039-11 #### ([id number]) [address] [place] [address] 23854 Lymphocytes (Bld) [#/Vol] 2.1 10*3/uL Normal 1.0-3.5 [facility] Comment on above: Performed By: #### Yousif HERRERA CMP, 3 #### ([id number]) [address] [place] [address] 22849 Lymphocytes/100 WBC (Bld) 19.2 % Normal [facility] Comment on above: Performed By: #### Yousif HERRERA CMP, 3039-11 #### ([id number]) [address] [place] [address] 38349 MCH (RBC) [Entitic mass] 29.4 pg Normal 27-34 [facility] Comment on above: Performed By: #### Yousif HERRERA CMP, 3039-11 #### ([id number]) [address] [place] [address] 70796 MCHC (RBC) [Mass/Vol] 34.0 g/dL Normal 32-36 [facility] Comment on above: Performed By: #### Yousif HERRERA CMP, 3039-11 #### ([id number]) [address] [place] [address] 91412 MCV (RBC) [Entitic vol] 86 fL Normal 80-100 [facility] Comment on above: Performed By: #### Yousif HERRERA CMP, 3039-11 #### ([id number]) [address] [place] [address] 60062 Monocytes (Bld) [#/Vol] 1.3 10*3/uL High 0-0.9 [facility] Comment on above: Performed By: #### Yousif HERRERA CMP, 3039-11 #### ([id number]) [address] [place] [address] 63140 Monocytes/100 WBC (Bld) 11.6 % Normal [facility] Comment on above: Performed By: #### Yousif HERRERA CMP, 3039-11 #### ([id number]) [address] [place] [address] 61153 Neutrophils/100 WBC (Bld) 65.7 % Normal [facility] Comment on above: Performed By: #### Yousif HERRERA CMP, 3040-3 #### ([id number]) [address] [place] [address] 67996 Platelet mean volume (Bld) [Entitic vol] 8.4 fL Normal 7-12 [facility] Comment on above: Performed By: #### Yousif HERRERA CMP, 3039-3 #### ([id number]) [address] [place] [address] 41958 Platelets (Bld) [#/Vol] 470 10*3/uL High 150-450 [facility] [place] Comment on above: Performed By: #### Yousif HERRERA CMP, 3039-3 #### ([id number]) [address] [place] [address] 38706 RBC COUNT 5.52 X10E12/L Normal 4.10-5.70 [facility] [place] Comment on above: Performed By: #### Yousif HERRERA CMP, 3 #### ([id number]) [address] [place] [address] 07284 WBC (Bld) [#/Vol] 11.1 10*3/uL High 4.0-11.0 [facility] Comment on above: Performed By: #### Yousif HERRERA CMP, 3039-3 #### ([id number]) [address] [place] [address]841 COMPREHENSIVE METABOLIC PANE Brian 07-24-2024 Albumin [Mass/Vol] 4.3 g/dL Normal 3.2-5.3 [facility] Comment on above: Performed By: #### Yousif HERRERA CMP, 3039-3 #### ([id number]) [address] [place] [address] 00615 ALP [Catalytic activity/Vol] 63 U/L Normal 39-130 [facility] [place] Comment on above: Performed By: #### Yousif HERRERA CMP, 3039-3 #### ([id number]) [address] [place] [address] [place] [address] ALT [Catalytic activity/Vol] 25 U/L Normal 0-40 [facility] [place] Comment on above: Performed By: #### C JAVIER, CMP, 0-3 #### ([id number]) [address] [place] [address] 88926 Anion gap [Moles/Vol] 9 mmol/L Normal 5-15 [facility] [place] Comment on above: Performed By: #### C JAVIER, CMP, 3039-3 #### ([id number]) [address] [place] [address] 16149 AST [Catalytic activity/Vol] 23 U/L Normal 0-41 [facility] [place] Comment on above: Performed By: #### Yousif HERRERA CMP, 3039-3 #### ([id number]) [address] [place] [address] [place] [address] Bilirubin [Mass/Vol] 1.4 mg/dL High 0.3-1.2 [facility] Comment on above: Performed By: #### Yousif HERRERA, CMP, 3039-3 #### ([id number]) [address] [place] [address] Calcium [Mass/Vol] 10.1 mg/dL Normal 8.5-10.5 [facility] Comment on above: Performed By: #### Yousif HERRERA, CMP, 3039-3 #### ([id number]) [address] [place] [address] [place] [address] Chloride [Moles/Vol] 104 mmol/L Normal 98-109 [facility] Comment on above: Performed By: #### Yousif BCA, CMP, 0-3 #### ([id number]) [address] [place] [address] CO2 [Moles/Vol] 22 mmol/L Normal 22-32 [facility] Comment on above: Performed By: #### C JAVIER [facility], 3040-3 #### ([id number]) [address] [place] [address] Creatinine [Mass/Vol] 1.05 mg/dL Normal 0.70-1.20 [facility] Comment on above: Result Comment: METH OD TRACEABLE TO IDMS STANDARD Performed By: #### C ANTONIETTA HERRERA, 3039-3 #### ([id number]) [address] [place] [address] GFR/1.73 sq M.predicted among non-blacks MDRD (S/P/Bld) [Vol rate/Area] 87 mL/min/{1.73_m2} Normal >59 [facility] Comment on above: Result Comment: Reported eGFR is based on the CKD-EPI 2020 equation that does not use a race coefficient. Performed By: #### C ANTONIETTA HERRERA, 3 #### ([id number]) [address] [place] [address] Glucose [Mass/Vol] 113 mg/dL High 65-99 [facility] Comment on above: Performed By: #### C ANTONIETTA HERRERA, 3039-3 #### ([id number]) [address] [place] [address] Potassium [Moles/Vol] 3.7 mmol/L Normal 3.5-5.0 [facility] Comment on above: Performed By: #### C JAVIER CMP, 0-3 #### ([id number]) [address] [place] [address] Protein [Mass/Vol] 7.9 g/dL Normal 6.0-8.0 [facility] Comment on above: Performed By: #### C JAVIER CMP, 3039-3 #### ([id number]) [address] [place] [address] Sodium [Moles/Vol] 135 mmol/L Normal 134-146 [facility] Comment on above: Performed By: #### C BCA, [facility], 3040-3 #### ([id number]) [address] [place] [address] Urea nitrogen [Mass/Vol] 13 mg/dL Normal 5-23 [facility] Comment on above: Performed By: #### C BCA, [facility], 3040-3 #### ([id number]) [address] [place] [address] CT ABDOMEN AND PELVIS W CONT on [...] Findings Committee. J Am Ag Radiol. 2017 Apr;14(8):6404-6496. THIS REPORT CONTAINS A SIGNIFICANT RESULT AND/OR RECOMMENDATION, WHICH REQUIRES THE ATTENTION OF THE LICENSED CAREGIVER RESPONSIBLE FOR THIS PATIENT. THEREFORE, I SPECIFICALLY DESIGNATED THIS REPORT TO BE TELEPHONED BY THE RADIOLOGY DEPARTMENT. FINDINGS WERE INSTRUCTED TO BE CALLED TO THE CLINICAL SERVICE ON 07/24/2024 4:17 PM Finalized by Daniel Mcallister on 07/24/2024 4:17 PM Normal [facility] LIPASEon 07-24-2024 Lipase [Catalytic activity/Vol] 22 U/L Normal 17-40 [facility] Comment on above: Performed By: #### C BCA, CMP, 3040-3 #### ([id number]) [address] [place] [address], FIRST FLOOR [address] 9-10 Nerveson 07-17-2024 [facility] 07-12-2024 Outside Records [id number]#1 .00[facility] Patient Letter[facility] 07-03-2024 Patient Letter [id number]#1.0 0[facility] [place] -12 Nerveson [facility] 05-03-2024 Outside Records [id number]#1.0 [facility] 04-24-2024 Outside Records [id number]#1.0 0[facility] Rad - Other Radiology Report on 04-24-2024 Rad - Other Radiology Report [id number]#1.0 0[facility] Patient Letteron 04-11-2024 Patient Letter [id number]#1.0 0[facility] Outside Recordson 04-05-2024 Outside Records [id number]#1.00 [facility] [id number]#1.00 [facility] Rad - Other Radiology Report on 04-02-2024 Rad - Other Radiology Report [id number]#1.0 0[facility] LUMBAR SPINE 6 OR MORE [facility] 01-14-2022 LUMBAR SPINE 6 OR MORE S [facility] Department of Radiology [address] [place] [address] ======== Patient Name: RICCARDO HALE : 1975 Sex: M Age: Race: White Pt. Location: Patient Status: D Ordered Date: 01/14/2022 12:15:00 PM Completed Date: 01/14/2022 12:37 PM Requesting Provider: JACKELINE RANDLE Attending Provider: JACKELINE RANDLE Report Copy To: MILAN NAILS Signs & Symptoms: M47.896 Other spondylosis, lumbar region I10 History: [place] Comments: , ap, lat, flex, ex, obliques, r/o instability or pars defect , Views (X-RAY, LUMBAR SPINE): AP, Lateral, L5-S1 Spot, Obliques, Flexion, Extension , ap, lat, flex, ex, obliques, r/o instability or pars defect , Views (X-RAY, LUMBAR SPINE): AP, Lateral, L5-S1 Spot, Obliques, Flexion, Extension , , , Ordering Provider - A JER LOPEZ CASING CREW PUSHER , Exam: LUMBAR SPINE 6 OR MORE [...] radiographically. Electronically signed: Irma York. Transcribed by: [id number], User Resident: Electronically Signed by: IRMA YORK @ 01/15/2022 11:40 AM Normal [facility] Comment on above: Order Comment: , ap, lat, flex, ex, obliques, r/o instability or pars defect , Views (X-RAY, LUMBAR SPINE): AP, Lateral, L5-S1 Spot, Obliques, Flexion, Extension , ap, lat, flex, ex, obliques, r/o instability or pars defect , Views (X-RAY, LUMBAR SPINE): AP, Lateral, L5-S1 Spot, Obliques, Flexion, Extension , , , Ordering Provider - Sherice LOPEZ [employer]ING [employer] PUSHER , Vital Signs Date Time Vital Sign Value Performing Clinician Facility 04-17-2025 09:31-0400 Body height 175.26 cm Temi Marshall APRN Work Phone: [facility] 04-17-2025 09:31-0400 Body mass index (BMI) [Ratio] 49.4 kg/m2 Temi Marshall APRN Work Phone: [facility] 04-17-2025 09:31-0400 Body temperature 98 [degF] Temi Marshall APRN Work Phone: [facility] 04-17-2025 09:31-0400 Body weight 151.95 kg Temi Marshall APRN Work Phone: [facility] 04-17-2025 09:31-0400 Diastolic blood pressure 84 mm[Hg] Temi Marshall APRN Work Phone: [facility] 04-17-2025 09:31-0400 Heart rate 86 /min Temi Marshall APRN Work Phone: [facility] 04-17-2025 09:31-0400 SaO2% (BldA) [Mass fraction] 94 % Temi Marshall APRN Work Phone: [facility] 04-17-2025 09:31-0400 Systolic blood pressure 132 mm[Hg] Temi Marshall APRN Work Phone: [facility] 03-27-2025 08:41-0400 Body height 175.3 cm Beto Reyes MD Work Phone: [facility] 03-27-2025 08:41-0400 Body mass index (BMI) [Ratio] 47.99 kg/m2 Beto Reyes MD Work Phone: [facility] 03-27-2025 08:41-0400 Body weight 147.42 kg Beto Reyes MD Work Phone: [facility] 03-27-2025 08:41-0400 Diastolic blood pressure 78 mm[Hg] Beto Reyes MD Work Phone: [facility] 03-27-2025 08:41-0400 Heart rate 104 /min Beto Reyes MD Work Phone: [facility] 03-27-2025 08:41-0400 Systolic blood pressure 138 mm[Hg] Beto Reyes MD Work Phone: [facility] 02-20-2025 10:21-0400 Body height 175.3 cm Beto Reyes MD Work Phone: [facility] 02-20-2025 10:21-0400 Body mass index (BMI) [Ratio] 48.29 kg/m2 Beto Reyes MD Work Phone: [facility] 02-20-2025 10:21-0400 Body weight 148.33 kg Beto Reyes MD Work Phone: [facility] 02-20-2025 10:21-0400 Diastolic blood pressure 86 mm[Hg] Beto Reyes MD Work Phone: [facility] 02-20-2025 10:21-0400 Heart rate 74 /min Beto Reyes MD Work Phone: [facility] [employer] 02-20-2025 10:21-0400 Systolic blood pressure 126 mm[Hg] Beto Reyes MD Work Phone: [facility] [employer] 07-19-2024 10:32-0400 Body height 175.3 cm Pascale Lowe PA Work Phone: [facility] [employer] 07-19-2024 10:32-0400 Body mass index (BMI) [Ratio] 45.63 kg/m2 Pascale Lowe PA Work Phone: [facility] [employer] 07-19-2024 10:32-0400 Body weight 140.16 kg Pascale Lowe PA Work Phone: [facility] [employer] 07-19-2024 10:32-0400 Diastolic blood pressure 86 mm[Hg] Pascale Lowe PA Work Phone: [facility] [employer] 07-19-2024 10:32-0400 Systolic blood pressure 130 mm[Hg] Pascale Lowe PA Work Phone: [facility] [employer] 09-23-2023 10:05-0500 Body height Abbey Sharda Other [employer] Other 09-23-2023 10:05-0500 Body mass index (BMI) [Ratio] 44.21 kg/m2 Abbey Sharda Other [employer] Other 09-23-2023 10:05-0500 Body temperature 98.6 [degF] Abbey Sharda Other [employer] Other 09-23-2023 10:05-0500 Body weight 135.81 kg Abbey Sharda Other [employer] Other 09-23-2023 10:05-0500 Diastolic blood pressure 82 mm[Hg] Abbey Sharda Other [employer] Other 09-23-2023 10:05-0500 Respiratory rate 18 /min Abbey Robin Other [employer] Other 09-23-2023 10:05-0500 SaO2% (BldA) [Mass fraction] 95 % Abbey Robin Other [employer] Other 09-23-2023 10:05-0500 Systolic blood pressure 152 mm[Hg] Abbey Robin Other [employer] Other 04-15-2023 10:30-0400 Body height Marisol Zealya Other [employer] Other 04-15-2023 10:30-0400 Body mass index (BMI) [Ratio] 45.33 kg/m2 Marisol Zelaya Other [employer] Other 04-15-2023 10:30-0400 Body temperature 97.6 [degF] Marisol Zelaya Other [employer] Other 04-15-2023 10:30-0400 Body weight 139.26 kg Marisol Zelaya Other [employer] Other 04-15-2023 10:30-0400 Diastolic blood pressure 80 mm[Hg] Marisol Zelaya Other [employer] Other 04-15-2023 10:30-0400 Respiratory rate 18 /min Marisol Zelaya Other [employer] Other 04-15-2023 10:30-0400 SaO2% (BldA) [Mass fraction] 98 % Marisol Zelaya Other [employer] Other 04-15-2023 10:30-0400 Systolic blood pressure 125 mm[Hg] Marisol Zelaya Other [employer] Other Encounters Encounter Date Encounter Type Care Provider Facility Start: 04-17-2025 End: 04-17-2025 ambulatory Temi Marshall APRN Work Phone: [facility] Work Phone: Start: 04-17-2025 End: 04-17-2025 Patient encounter procedure Temi Marshall APRN [facility] Work Phone: Start: 04-10-2025 Non-patient / Non-visit Belinda Henson [facility] Work Phone: Start: 03-27-2025 End: 03-27-2025 [...] Start: 03-07-2025 End: 03-07-2025 ambulatory MILAN NAILS Facility:[facility] Start: 02-21-2025 ambulatory MILAN NAILS [facility]ilit [facility] Start: 02-20-2025 End: 02-20-2025 Olga Reyes MD Work Phone: [facility] Start: 02-20-2025 End: 02-20-2025 Olga Reyes MD Work Phone: [facility] Start: 02-20-2025 End: 02-20-2025 Office outpatient new 45 minutes Beto Reyes MD Work Phone: [facility] Comment on above: Rhinitis medicamento sa (Primary Dx); Bilateral impacted cerumen Start: 02-20-2025 End: 02-21-2025 ambulatory MILAN Medina CARTHAGE Facility: [facility] Start: 02-06-2025 End: 02-06-2025 Office outpatient new 30 minutes Blair Gan TRANSPORTATION ENGINEERING TECHNICIAN Work Phone: [facility] Comment on above: Carpal tunnel syndro me of left wrist; Carpal tunnel syndrome of right wrist Start: 02-06-2025 End: 02-06-2025 ambulatory BLAIR GAN Not Available Start: 02-06-2025 End: 02-06-2025 Bamboo flowsheet Blair Gan TRANSPORTATION ENGINEERING TECHNICIAN Work Phone: [facility] Start: 02-06-2025 End: 02-06-2025 Bamboo flowsheet Blair Gan TRANSPORTATION ENGINEERING TECHNICIAN Work Phone: [facility] Start: 02-04-2025 ambulatory DO MILAN Medina CARTHAGE Faci lity: [facility] Start: 01-03-2025 End: [...] 11-15-2024 End: 11-15-2024 ambulatory DO MILAN NAILS Facility[facility] Start: 11-01-2024 End: 11-01-2024 Eliezer Patrick MD Work Phone: [facility] Comment on above: Low back pain, unspe cified back pain laterality, unspecified chronicity, unspecified whether sciatica present Start: 10-02-2024 ambulatory DO MILAN NAILS Faci lity:[facility] Start: 08-09-2024 End: 08-09-2024 ambulatory MILAN NAILS Facility:[facility] Start: 07-24-2024 End: 07-27-2024 Evaluation and management of inpatient MILAN NAILS [facility] Start: 07-19-2024 End: 07-19-2024 Office outpatient visit 25 minutes Pascale BRADSHAW [facility] Comment on above: Carpal tunnel syndro me on both sides (Primary Dx); Chronic bilateral low back pain, unspecified whether sciatica present; Lumbar disc herniation Start: 07-19-2024 End: 07-19-2024 ambulatory PASCALE SOUZA Not Available Start: 07-17-2024 End: 07-17-2024 Bamboo flowsheet Maurizio Patrick MD [facility] Start: 07-17-2024 End: 07-17-2024 Bamalvaroo flowsheet Maurizio Patrick MD [facility] Start: 07-17-2024 End: 07-17-2024 ambulatory MAURIZIO PATRICK Not Available Start: 07-17-2024 End: 07-17-2024 Patient encounter procedure Maurizio Patrick MD [facility] Comment on above: Lumbar radiculopathy (Primary Dx); Low back pain, unspecified back pain laterality, unspecified chronicity, unspecified whether sciatica present Start: 07-02-2024 End: 07-02-2024 ambulatory MILAN NAILS Facility:[facility] Start: 06-28-2024 ambulatory MILAN NAILS Facilit y:[facility] Start: 05-24-2024 End: 05-24-2024 Bamboo flowsheet Maurizio Patrick MD Work Phone: [facility] Start: 05-24-2024 End: 05-24-2024 Bamboo flowsheet Maurizio Patrick MD Work Phone: [facility] Start: 05-24-2024 End: 05-24-2024 Patient encounter procedure Maurizio Patrick MD Work Phone: [facility] Comment on above: Carpal tunnel syndro me on both sides (Primary Dx) Start: 05-24-2024 End: 05-24-2024 ambulatory MAURIZIO PATRICK Not Available Start: 04-18-2024 End: 04-18-2024 ambulatory MILAN P HOUSE Facility:[facility] Start: 04-18-2024 End: 04-18-2024 ambulatory PASCALE SOUZA Not Available Start: 04-09-2024 End: 04-09-2024 ambulatory DO MILAN P HOUSE Facility:[facility] Start: 09-23-2023 End: 09-23-2023 ambulatory Abbey Robin Other [employer] Other Start: 09-23-2023 Office outpatient vi sit 15 minutes Abbey Robin [facility] [place] Start: 04-15-2023 End: 04-15-2023 ambulatory Marisol Zelaya Other [employer] Other Start: 04-15-2023 Office outpatient ne w [...] [facility] [address] [place] [phone] Pascale Souza PA [address] [place] [address] [facility] Start: 03-27-2025 End: 03-27-2025 Patient encounter procedure 03/27/2025 8:40 AM EDT Office Visit [facility] [address] [place] [address] Beto Reyes MD [address] [place], [place] [id number] Arrived [facility] Comment on above: Arrived Start: 02-22-2025 End: 02-22-2025 Patient encounter procedure 02/22/2025 9:00 AM EDT Office Visit [facility] [address] [place] [phone] Tracie Montiel, [address] [place] [address] [facility] Start: 02-20-2025 End: 02-20-2025 Patient encounter procedure 02/20/2025 10:30 AM EDT Office Visit [facility] [address] [facility] [address] [place] [phone] Beto Reyes MD [address] [facility] [address] [place] [address] Arrived [facility] Comment on above: Arrived Start: 02-06-2025 End: 02-06-2025 Patient encounter procedure 02/06/2025 2:30 PM EDT Office Visit [facility] [address] [place] [address] Blair Gan, TRANSPORTATION ENGINEERING TECHNICIAN [address] [place] [address] Arrived [facility] Comment on above: Arrived Start: 12-03-2024 End: 12-03-2024 Patient encounter procedure [facility] Comment on above: Arrived Start: 10-10-2024 End: 10-10-2024 Patient encounter procedure 10/10/2024 1:40 PM EST Office Visit [facility] [place] [facility] [address] [place] [phone] Pascale Souza PA [address] [place] [address] [facility] [place] [facility] Start: 07-19-2024 End: 07-19-2024 Patient encounter procedure 07/19/2024 10:40 AM EDT Office Visit [facility] [place] [phone] Pascale Souza PA [address] [place] [address] [facility] [address] Start: 06-19-2024 End: 06-19-2024 Patient encounter procedure 06/19/2024 1:00 PM EDT Office Visit [facility] [place] [phone] Pascale Souza PA [address] [place] [address] [facility] [facility] Start: 06-13-2024 End: 06-13-2024 Patient encounter procedure 06/13/2024 1:00 PM EDT [facility] [address] [place] [phone] Maurizio Patrick MD [address] [place] [address] [facility] Start: 05-24-2024 End: 05-24-2024 Patient encounter procedure 05/24/2024 8:30 AM EDT Procedure Visit [facility] [address] [place] [address] Maurizio Patrick MD [address] [place] [address] Arrived [facility] [address] Comment on above: Arrived EMG 2 Extremities EMG 2 Extremit ies Neurology Routine Carpal tunnel syndrome on both sides Ordered: 05/24/2024 [facility] Work Phone: Comment on above: Ordered: 05/24/2024 Payers Date Payer Category Payer Medicare [facility] MEDICARE UHC DUAL COMPLETE [id number] 2023-Present [address] [place] [address] [id number] 2023 Medicare (Managed Care) [facility] MEDICARE [id number] 2021 Medicare [id number] 2.16.840.1.599553.19 1974 Unknown [id number] 2.16.840.1.449054.3.579.2 .593 1974 Unknown [id number] 2.16.840.1.015671.3.579.2 .593 1974 Unknown [id number] 2.16.840.1.795697.3.579.2 .593 1974 Unknown [id number] 2.16.840.1.199368.3.579.2 .593 1974 Unknown [id number] 2.16.840.1.161669.3.579.2 .593 1974 Unknown [id number] 2.16.840.1.139276.3.579.2 .593 1974 Unknown [id number] 2.16.840.1.782358.3.579.2 .593 1974 Unknown [id number] 2.16.840.1.221848.3.579.2 .593 1974 Unknown [id number] 2.16.840.1.517306.3.579.2 .593 1974 Unknown [id number] 2.16.840.1.920267.3.579.2 .593 1974 Unknown [id number] 2.16.840.1.853801.3.579.2 .593 1974 Unknown [id number] 2.16.840.1.571047.3.579.2 .593 1974 Unknown [id number] 2.16.840.1.151367.3.579.2 .59 1974 Unknown [id number] 2.16.840.1.044496.3.579.2 .1286 1974 Unknown [id number] 2.16.840.1.556469.3.579.2 .1974 Unknown [id number] 2.16.840.1.104829.3.579.2 .71 1974 Unknown [id number] 2.16.840.1.637489.3.579.2 .1974 Unknown [id number] 2.16.840.1.826232.3.579.2 .1974 Unknown [id number] 2.16.840.1.518080.3.579.2 .71 1974 Unknown [id number] 2.16.840.1.140835.3.579.2 .1974 Unknown [id number] 2.16.840.1.129755.3.579.2 .1974 Unknown [id number] 2.16.840.1.639483.3.579.2 .1974 Unknown [id number] 2.16.840.1.271163.3.579.2 .1974 Unknown [id number] 2.16.840.1.816358.3.579.2 .1974 Unknown [id number] 2.16.840.1.296670.3.579.2 .718 1974 Unknown [id number] 2.16.840.1.361423.3.579.2 .718 1974 Unknown [id number] 2.16.840.1.824774.3.579.2 .9 1974 Unknown [id number] 2.16.840.1.776088.3.579.2 .1258 1974 Unknown [id number] 2.16.840.1.086725.3.579.2 .1258 1974 Unknown [id number] 2.16.840.1.983682.3.579.2 .1258 1974 Unknown [id number] 2.16.840.1.890816.3.579.2 .1258 1974 Unknown [id number] 2.16.840.1.088952.3.579.2 .1258 1974 Unknown [id number] 2.16.840.1.643411.3.579.2 .1258 1974 Unknown [id number] 2.16.840.1.093821.3.579.2 .9 1960 Medicare [id number] Private Health Insurance [facility] [id number] Unknown [id number] Social History Date Type Detail Facility Unknown if ever smoked [employer] Other Start: 04-11-2024 End: 02-20-2025 Sex Assigned At [employer] Other Start: 04-11-2024 Tobacco smoking stat [facility] Never smoked tobacco [facility] Start: [...] Ex-drinker (finding) [facility] Sex Male (finding) [facility] Start: 1975 Sex Assigned At Male [facility] Clinical Notes 04-15-2022 to 03-27-2025 Beto Reyes [...] Morbid (severe) obesity due to excess calories ([facility]) 02/19/2025 Resolved Ambulatory Problems Diagnosis Date Noted [...] and replace cap. 48 g 3 HYDROcodone-acetaminophen (Tabor) 5-325 MG tablet 1 tablet every 6 [...] saline irrigations prn. documented in this encounter [facility] 03-04-2025 Note Entered by DYLAN NAILS DO on March 04, 2025 07:38:09 EDT From: MILAN NAILS DO To: [facility] Sent: 03/04/2025 07:38:08 EDT Subject: Medication [...] 5 Substitutions Allowed Route To Pharmacy - [facility] Approved with modifications: SUMAtriptan (sumatriptan 100 mg tablet) TAKE 1 TABLET BY MOUTH DAILY Qty: 12 EA Days Supply: 30 Refills: 5 Substitutions Allowed Route To Pharmacy - [facility] Approved with modifications: albuterol (albuterol sulfate HFA 90 mcg/actuation aerosol inhaler) INHALE 2 PUFFS BY MOUTH EVERY 6 HOURS NEEDED Qty: 8.5 gm Days Supply: 25 Refills: 5 Substitutions Allowed Route To Pharmacy - [facility] -------- From: [facility] To: MILAN NAILS DO Sent: March [...] 5 Substitutions Allowed Notes from Pharmacy: -------- [facility] 02-22-2025 Note [id number]2025 Note [facility] SUR[facility]ERY Clinical Discharge Summary PERSON INFORMATION Name RICCARDO HALE Age 49 Years 1975 Sex MALE Language Serbian PCP MILAN NAILS DO Marital Status Single [facility] Service Ambulatory Surgery Acct# Arrival 02/21/2025 06:22:54 Visit Reason SURGERY - COLONOSCOPY - SCREENING [facility] LOS 015 21:32 Address: [address] [place] [address] Comment: PROVIDER INFORMATION VITALS INFORMATION Vital Sign [...] day. cyanocobalamin (Vitam (more content not included)... [facility] 02-20-2025 History of Presen t illness [...] 02/19/2025 GERD (gastroesophageal reflux disease) 07/25/2024 Hyperlipidemia ([facility]) 07/25/2024 Hypertension ([facility]) 07/25/2024 Ileus ([facility]) 07/24/2024 Migraine 02/19/2025 Nausea and vomiting 07/25/2024 Morbid (severe) obesity due to excess calories ([facility]) 02/19/2025 Resolved Ambulatory Problems Diagnosis Date Noted [...] Take 180 mg by mouth Daily HYDROcodone-acetaminophen (Tabor) 5-325 MG tablet 1 tablet every 6 [...] ears at F/U documented in this encounter 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 documented in this encounter [facility] 02-04-2025 Note Entered by DYLAN NAILS DO on February 04, 2025 10:00:28 EDT From: MILAN NAILS DO To: [facility] Sent: 02/04/2025 10:00:28 EDT Subject: Medication Management Submitted: Complete:DULoxetine (DULoxetine 60 mg oral delayed release capsule) Signed by MILAN NAILS DO 02/04/2025 10:00:00 EDT Approved with modifications: DULoxetine (duloxetine 60 mg capsule,delayed release) TAKE 1 CAPSULE BY MOUTH DAILY Qty: 30 cap(s) Days Supply: 30 Refills: 5 Substitutions Allowed Route To Pharmacy - [facility] -------- From: [facility] To: MILAN NAILS DO Sent: February [...] 11 Substitutions Allowed Notes from Pharmacy: [facility]25 Note Entered by DYLAN NAILS DO on January 03, 2025 13:01:51 EDT From: MILAN NAILS DO To: [facility] Sent: 01/03/2025 13:01:51 EDT Subject: Medication Management Submitted: Complete:omeprazole (omeprazole 20 mg oral delayed release capsule) Signed by MILAN NAILS DO 01/03/2025 13:01:00 EDT Approved with modifications: omeprazole (omeprazole 20 mg capsule,delayed release) TAKE 1 CAPSULE BY MOUTH DAILY Qty: 30 cap(s) Days Supply: 30 Refills: 5 Substitutions Allowed Route To Pharmacy - [facility] -------- From: [facility] To: MILAN NAILS DO Sent: January [...] 11 Substitutions Allowed Notes from Pharmacy: [facility] 01-03-2025 Telephone encount er Note 12/03/2024 Continue baclofen 10mg PO up to 4 times daily for muscle spasm. Will not allow me to select QID. [facility] 01-03-2025 Miscellaneous Notes Formattin g of this note might be different from the original. 12/03/2024 Continue baclofen 10mg PO up to 4 times daily for muscle spasm. Will not allow me to select QID. documented in this encounter [facility] 12-03-2024 Telephone encount er Note Contacted and he noted the FCE is not needed. He said for the update of disability this is not required. I let him know not to hesitate if we'd be needed. [facility] 12-03-2024 Miscellaneous Notes Formattin g of this [...] self-pay @ $505.00. documented in this encounter [facility] 11-28-2024 Telephone encount er Note Tried to contact re: referral for FCE. Requested a call back to verify if this would be going thru C-[facility], covered; if not then self-pay @ $505.00. [facility] 11-15-2024 Note PROCEDURE: CT Sinus w/o Contrast [...] Christopher Manjarrez MD 11/16/24 9:26 am Technologist: [facility] 11-12-2024 Note Entered by DYLAN NAILS DO on November 12, 2024 07:31:34 EST From: MILAN NAILS DO To: [facility] Sent: 11/12/2024 07:31:34 EST Subject: Medication Management Submitted: Complete:lisinopril (lisinopril 20 mg oral tablet) Signed by MILAN NAILS DO 11/12/2024 07:31:00 EST Approved with modifications: lisinopril (lisinopril 20 mg tablet) TAKE 1 TABLET BY MOUTH DAILY Qty: 90 tab(s) Days Supply: 90 Refills: 1 Substitutions Allowed Route To Pharmacy - [facility] -------- From: [facility] To: MILAN NAILS DO Sent: November 09, 2024 6:21:57 PM GEAR TOOTH GRINDING MACHINE OPERATOR Subject: Medication Management Due: November 10, 2024 12:08:02 AM GEAR TOOTH GRINDING MACHINE OPERATOR On Hold Pending Signature Drug: lisinopril (lisinopril 20 mg oral tablet), TAKE 1 TABLET BY MOUTH DAILY Quantity: 90 tab(s) Days Supply: 90 Refills: 5 Substitutions Allowed Notes from Pharmacy: Dispensed Drug: lisinopril (lisinopril 20 mg oral tablet), TAKE 1 TABLET BY MOUTH DAILY Quantity: 90 tab(s) Days Supply: 90 Refills: 5 Substitutions Allowed Notes from Pharmacy: -------- [facility] 10-26-2024 Note Entered by DYLAN NAILS DO on October 26, 2024 14:14:29 EST From: MILAN NAILS DO To: [facility] Sent: 10/26/2024 14:14:29 EST Subject: Medication Management Submitted: Complete:fexofenadine (fexofenadine 180 mg oral tablet) Signed by MILAN NAILS DO 10/26/2024 14:14:00 EST Approved with modifications: fexofenadine (fexofenadine 180 mg tablet) TAKE 1 TABLET BY MOUTH EVERY DAY Qty: 30 tab(s) Days Supply: 30 Refills: 5 Substitutions Allowed Route To Pharmacy - [facility] -------- From: [facility] To: MILAN NAILS DO Sent: October 26, 2024 12:55:48 PM GEAR TOOTH GRINDING MACHINE OPERATOR Subject: Medication Management Due: October 27, 2024 12:02:15 AM GEAR TOOTH GRINDING MACHINE OPERATOR On Hold Pending Signature Drug: fexofenadine (fexofenadine 180 mg oral tablet), TAKE 1 TABLET BY MOUTH DAILY Quantity: 30 tab(s) Days Supply: 30 Refills: 5 Substitutions Allowed Notes from Pharmacy: Dispensed Drug: fexofenadine (fexofenadine 180 mg oral tablet), TAKE 1 TABLET BY MOUTH EVERY DAY Quantity: 30 tab(s) Days Supply: 30 Refills: 5 Substitutions Allowed Notes from Pharmacy: -------- [facility] 08-27-2024 Note Entered by DYLAN NAILS DO on August 27, 2024 16:27:03 EST From: MILAN NAILS DO To: [facility] Sent: 08/27/2024 16:27:03 EST Subject: Medication [...] 5 Substitutions Allowed Route To Pharmacy - [facility] Approved with modifications: propranolol (propranolol ER 80 mg capsule,24 hr,extended release) TAKE 1 CAPSULE BY MOUTH DAILY Qty: 30 cap(s) Days Supply: 30 Refills: 5 Substitutions Allowed Route To [facility] Approved with modifications: SUMAtriptan (sumatriptan 100 mg tablet) TAKE 1 TABLET BY MOUTH DAILY Qty: 12 EA Days Supply: 12 Refills: 5 Substitutions Allowed Route To [facility] -------- From: [facility] To: MILAN NAILS DO Sent: August 27, 2024 2:39:32 PM GEAR TOOTH GRINDING MACHINE OPERATOR Subject: Medication Management Due: August 28, 2024 12:06:32 AM GEAR TOOTH GRINDING MACHINE OPERATOR On Hold Pending Signature Drug: albuterol (Albuterol [...] 5 Substitutions Allowed Notes from Pharmacy: -------- [facility] 07-17-2024 History of Presen t illness Narrative Images from the original note were not included. Reason for Appointment: EMG Patient: Riccardo Hale : 1975 EMG Computer: [employer] Referring Physician: Dr. Maurizio Patrick EMG: BLE retarder operator: Danya Ritter CMA Office Location: [place] Reason for EMG: c/o hypersensitivty to the bottoms of the feet. Paresthesia in the legs. R>L. No Hx of DM, not taking blood thinners. Comments: Procedure explained to the patient who expressed understanding. documented in this encounter [facility] 05-24-2024 History of Presen t illness Narrative Images from the original note were not included. Reason for Appointment: EMG Patient: Riccardo Hale : 1975 EMG Computer: [employer] Referring Physician: Pascale Souza PA-C EMG: BUParamjit retarder operator: Danya Ritter CMA Office Location: [place] Reason for EMG: c/o burning, numbness, tingling in the hands. R>L. Sometimes has a hard time closing his hand. No Hx of DM, not taking blood thinners. Comments: Procedure explained to the patient who expressed understanding. documented in this encounter [facility] 05-22-2024 Note Entered by DYLAN NAILS DO on May 22, 2024 08:21:07 EDT From: MILAN NAILS DO To: [facility] Sent: 05/22/2024 08:21:07 EDT Subject: Medication Management Submitted: Complete:SUMAtriptan (SUMAtriptan 100 mg oral tablet) Signed by MILAN NAILS DO 05/22/2024 08:21:00 EDT Approved with modifications: SUMAtriptan (sumatriptan 100 mg tablet) TAKE 1 TABLET BY MOUTH DAILY Qty: 12 EA Days Supply: 12 Refills: 2 Substitutions Allowed Route To Pharmacy - [facility] -------- From: [facility] To: MILAN NAILS DO Sent: May [...] 2 Substitutions Allowed Notes from Pharmacy: -------- [facility] 05-02-2024 Note Entered by DYLAN NAILS DO on May 02, 2024 11:28:48 EDT From: MILAN NAILS DO To: [facility] Sent: 05/02/2024 11:28:48 EDT Subject: Medication Management Submitted: Complete:fexofenadine (fexofenadine 180 mg oral tablet) Signed by MILAN NAILS DO 05/02/2024 11:28:00 EDT Approved with modifications: fexofenadine (fexofenadine 180 mg tablet) TAKE 1 TABLET BY MOUTH DAILY Qty: 30 tab(s) Days Supply: 30 Refills: 5 Substitutions Allowed Route To Pharmacy - [facility] -------- From: [facility] To: MILAN NAILS DO Sent: May [...] 5 Substitutions Allowed Notes from Pharmacy: -------- [facility] 09-23-2023 Evaluation note Encounter Date [...] 3 days Sep, Bronchitis (ICD-10 - J40) [employer] [facility] 07-28-2023 Evaluation note* Encounter Date Diagnosis [...] is not contagious from itself or drainage. [employer] [facility] 05-30-2023 NoteCONSULTATION CONSULTATION DATE: 02/15/2023 TO: [...] the lower extremities. MEDICATION: Current medication includes Tabor 5 mg t.i.d. p.r.n. Patient reports it [...] our patients to inform us about any liyc-fps-ofdfsrg medications or herbal remedies/nutritional supplements/alternative remedies. 2. [...] treatment options with their primary care provider.[id number] Note CONSULTATION CONSULTATION DATE: 01/06/2023 TO: Dr. [...] our patients to inform us about any ronw-uct-duabvsf medications or herbal remedies/nutritional supplements/alternative remedies. 2. [...] treatment options with their primary care provider.[id number] Note CONSULTATION PROCEDURE DATE: 10/06/2022 PREOPERATIVE DIAGNOSIS: [...] will be followed up in the office.[id number] NoteCONSULTATION CONSULTATION DATE: 08/26/2022 HISTORY OF PRESENT [...] his muscle relaxer. Our clinic prescribes his Tabor 5/325 b.i.d. and diclofenac 75 mg b.i.d. [...] normally does. All questions were answered today.[id number] NoteCONSULTATION CONSULTATION DATE: 07/22/2022 HISTORY OF PRESENT [...] a cane. He has seen Neurosurgery at [facility] in the past, which they feel, at this time, he is not a surgical candidate and to be managed by Pain Management. He current does see Dr. Patrick at [facility] as well. Activities that aggravate his pain are pulling, sitting, walking, lying down and bending. He will alternate heat and ice which he feels does not make a significant difference. Medications include trazodone 50 mg q.h.s., tizanidine 4 mg b.i.d., Lyrica 50 mg t.i.d., diclofenac 75 mg b.i.d. and Tabor 5/325 b.i.d. He does attend pool therapy at the [facility] 2-3 times a week, which [...] be followed up in the clinic thereafter.[facility] 04-22-2022 NoteCONSULTATION PROCEDURE DATE: 04/22/2022 PRE [...] will be followed up in the office.[facility] [id number] NoteCONSULTATION CONSULTATION DATE: 04/15/2022 This is a 46-year-old male returning to the clinic status post #1 bilateral MBB of L2, L3 and L4, L5. The patient reportedly received a 25% relief. Today his pain is 6 out of 10, described as pressure, burn and tightness. He has recently joined the local [employer] center with his daughter and plans on going to the pool. Activities that aggravate his pain are standing, stairs, physical activity, walking and bending. Current medications include tizanidine 4 mg b.i. d. duloxetine 30 mg q. day, diclofenac 75 mg b.i.d., Lyrica 50 mg b.i.d. and Tabor 5/325 b.i.d. He is complaining of trouble [...] is gained for his trigger point injections.[facility] Evaluation note* Diagnosis Lumbar radiculopathy- Primary [...] 9:22am HTN (hypertension) chronic March 212024 9:22am [facility] Work Phone: History general Narrative - Reported* Type Description Date Medical History HTN (hypertension) Medical History GERD (gastroesophageal reflux di sease) Medical History Chronic pain Medical History Anxiety Surgical History tonsillectomy and adenoidectomy Surgical History ablasion [employer] Other History general Narrative - Reported* Type Description Date Medical History HTN (hypertension) Medical History GERD (gastroesophageal reflux di sease) Medical History Chronic pain Medical History Anxiety Surgical History tonsillectomy and adenoidectomy Surgical History ablasion Surgical History nerve block Surgical History epidural [facility] [facility] Other Reason for referral (narrative)No reason for referral information availableVeterans Health Administration Work Phone: Summary Purpose Family History Relationship [...] section and content) DATE CREATED AUTHOR 03/09/2018 [facility] DATE CREATED AUTHOR AUTHOR'S ORGANIZ ATION 01/19/2022 [facility] DATE CREATED AUTHOR AUTHOR'S ORGANIZ ATION 02/25/2023 [facility] DATE CREATED AUTHOR AUTHOR'S ORGANIZ ATION 07/27/2024 [facility] DATE CREATED AUTHOR AUTHOR'S ORGANIZ ATION 03/15/2025 [facility] DATE CREATED AUTHOR AUTHOR'S ORGANIZ ATION 03/31/2025 [facility] d[facility] Specialists EPIC REASON FOR VISIT (unrecogniz ed section and content) Reason Comments Back Pain Numbness Reason Comments Med Refill Reason Onset Date Comments re: referral for FCE 11/28/2024 re: FCE 12/03/2024 Reason Comments Carpal Tunnel Reason Comments Sinusitis Reason Comments Rhinitis medicamentosa 1 month check nos e and clean ears Care Teams (unrecognized sec tion and content) Solid Waste Analyst Relationship Specialty Start Date End Date Milan Nails MD [address] [place] [address] PCP - General Family Medicine 12/08/23 Solid Waste Analyst Relationship Specialty Start Date End Date Milan Nails MD [address] [place] [address] PCP - General Family Medicine 12/08/23 Solid Waste Analyst Relationship Specialty Start Date End Date Milan Nails MD [address] [place] [address] PCP - General Family Medicine 12/08/23 Pascale Souza PA [address] [place] [address] Physician Roll Hauler Neurology 07/19/24 Maurizio Patrick MD [address] [place] [address] Referring Physician Neurology 07/19/24 Solid Waste Analyst Relationship Specialty Start Date End Date Milan Nails MD [address] [place] [address] PCP - General Family Medicine 12/08/23 Solid Waste Analyst Relationship Specialty Start Date End Date Milan Nails MD [address] [place] [address] PCP - General Family Medicine 12/08/23 Solid Waste Analyst Relationship Specialty Start Date End Date Milan Nails MD [address] [place] [address] PCP - General Family Medicine 12/08/23 Pascale Souza PA [address] [place] [address] Physician Roll Hauler Neurology 07/19/24 Maurizio Patrick MD [address] [place] [address] Referring Physician Neurology 07/19/24 Solid Waste Analyst Relationship Specialty Start Date End Date Milan Nails MD [address] [place] [address] PCP - General Family Medicine 12/08/23 Pascale Souza PA [address] [place] [address] Physician Roll Hauler Neurology 07/19/24 Maurizio Patrick MD [address] [place] [address] Referring Physician Neurology 07/19/24 Solid Waste Analyst Relationship Specialty Start Date End Date Milan Nails MD [address] [place] [address] PCP - General Family Medicine 12/08/23 Pascale Souza PA [address] [place] [address] Physician Roll Hauler Neurology 07/19/24 Maurizio Patrick MD [address] [place] [address] Referring Physician Neurology 07/19/24 Solid Waste Analyst Relationship Specialty Start Date End Date Milan Nails MD [address] [place] [address] PCP - General Family Medicine 12/08/23 Pascale Souza PA [address] [place] [address] Physician Roll Hauler Neurology 07/19/24 Maurizio Patrick MD [address] [place] [address] Referring Physician Neurology 07/19/24 Solid Waste Analyst Relationship Specialty Start Date End Date Milan Nails MD [address] [place] [address] PCP - General Family Medicine 12/08/23 Pascale Souza PA [address] [place] [address] Physician Roll Hauler Neurology 07/19/24 Maurizio Patrick MD [address] [place] [address] Referring Physician Neurology 07/19/24 Solid Waste Analyst Relationship Specialty Start Date End Date Milan Nails MD [address] [place] [address] PCP - General Family Medicine 12/08/23 Pascale Souza PA [address] [place] [address] Physician Roll Hauler Neurology 07/19/24 Maurizio Patrick MD [address] [place] [address] Referring Physician Neurology 07/19/24 Solid Waste Analyst Relationship Specialty Start Date End Date Milan Nails MD [address] [place] [address] PCP - General Family Medicine 12/08/23 Pascale Souza PA [address] [place] [address] Physician Roll Hauler Neurology 07/19/24 Maurizio Patrick MD [address] [place] [address] Referring Physician Neurology 07/19/24 Solid Waste Analyst Relationship Specialty Start Date End Date Milan Nails MD [address] [place] [address] PCP - General Family Medicine 12/08/23 Pascale Souza PA [address] [place] [address] Physician Roll Hauler Neurology 07/19/24 Maurizio Patrick MD [address] [place] [address] Referring Physician Neurology 07/19/24 Solid Waste Analyst Relationship Specialty Start Date End Date Milan Nails MD [address] [place] [address] PCP - General Family Medicine 12/08/23 Pascale Souza PA [address] [place] [address] Physician Roll Hauler Neurology 07/19/24 Maurizio Patrick MD [address] [place] [address] Referring Physician Neurology 07/19/24 Solid Waste Analyst Relationship Specialty Start Date End Date Milan Nails MD [address] [place] [address] PCP - General Family Medicine 12/08/23 Pascale Souza PA [address] [place] [address] Physician Roll Hauler Neurology 07/19/24 Maurizio Patrick MD [address] [place] [address] Referring Physician Neurology 07/19/24 Team Status: Active Member Role Status Dates Temi Marshall APRN TRANSPORTATION ENGINEERING TECHNICIAN-C Primary Care Provider Active Team Status: Active Member Role Status Dates Temi Marshall APRN TRANSPORTATION ENGINEERING TECHNICIAN-C Primary Care Provider Active Start: April 10, 2025 Belinda Negron Attending Provider Active Start: April 10, 2025 Team Status: Inactive Member Role Status Dates Temi Marshall APRN TRANSPORTATION ENGINEERING TECHNICIAN-C Primary Care Provider Active Start: April 17, [...] BE BASED ON THE PRIMARY CLINICAL RECORDS. [employer] [facility]. provides no warranty or guarantee of the accuracy or completeness of information in this document.
--- NOTE | 2025-05-02 09:36 | PM.CN ---
Consult Note: HPI Data of Consult Patient: known to practice within the last 3 years Consult date: 05/02/25 Requesting Physician: Razia Contreras NP Primary Care Provider: GERMANIA NAILS Consult Narrative Reason for consult: f/u Narrative: Riccardo Hale a pleasant 49 year old male presents for evaluation and management of chronic back pain with radiculopathy. Continues to find benefit from medication regimen without side effects. Patient has failed to benefit from greater than 6 weeks PT/provider guided HEP. Pain most significant in left low back radiating into bilateral legs and bilateral feet. historically non surgical for lumbar pain and radiculopathy, NS in 2021 recommended spinal cord stimulation. previously agreeable to scs trial however he has since changed his mind as he is fearful. since last visit underwent right L4-5 L5-S1 TFESI with >50% improvement in symptoms on the right side but no improvement in lumbar radiculopathy on the left. pain today 6/10 sharp aching increasing to 10/10 with all acitivty, bending, twisting, standing, walking, lifting. pain mildly improved with sleeping. cc:: CC: Razia Contreras NP Review of Systems ROS Status of ROS 10 or more systems reviewed and unremarkable except as noted in history and below Musculoskeletal Reports: back pain, neck pain and extremity pain PFSH PFSH Medical History Osteoarthritis ?M19.90 - Unspecified osteoarthritis, unspecified site (ICD-10) Numbness and tingling ?R20.0 - Anesthesia of skin (ICD-10) ?R20.2 - Paresthesia of skin (ICD-10) Obesity ?E66.9 - Obesity, unspecified (ICD-10) Acid reflux ?K21.9 - Gastro-esophageal reflux disease without esophagitis (ICD-10) Former smoker ?Z87.891 - Personal history of nicotine dependence (ICD-10) Sleep apnea ?G47.30 - Sleep apnea, unspecified (ICD-10) High cholesterol ?E78.00 - Pure hypercholesterolemia, unspecified (ICD-10) Hypertension ?I10 - Essential (primary) hypertension (ICD-10) Surgical History History of tonsillectomy and adenoidectomy ?Z90.89 - Acquired absence of other organs (ICD-10) Meds Home Medications and Allergies Home Medications ?Medication ?Instructions ?Recorded ?Confirmed ?Type albuterol sulfate 90 mcg/actuation inhalation Q4H PRN shortness of 03/10/23 History aerosol inhaler breath or wheezing duloxetine 30 mg capsule,delayed 30 mg PO QDAY 03/10/23 04/22/25 History release duloxetine 60 mg capsule,delayed 60 mg PO QDAY 03/10/23 04/22/25 History release lisinopril 20 mg tablet 20 mg PO QDAY 03/10/23 04/22/25 History omeprazole 20 mg capsule,delayed 20 mg PO QDAY 03/10/23 04/22/25 History release trazodone 50 mg tablet 50 mg PO .hs PRN sleep 03/10/23 04/22/25 History pregabalin 200 mg capsule (Lyrica) 200 mg PO TID 03/01/24 04/22/25 History propranolol 80 mg capsule,24 80 mg PO DAILY 03/01/24 04/22/25 History hr,extended release amitriptyline 25 mg tablet 25 mg PO DAILY 04/24/24 04/22/25 History baclofen 10 mg tablet 10 mg PO DAILY 04/24/24 04/22/25 History sumatriptan succinate 100 mg tablet 100 mg PO PRN migraine headache 04/24/24 History hydrocodone 5 mg-acetaminophen 325 See Rx Instructions .Route 11/14/24 04/22/25 Rx mg tablet .COMPLEX PRN pain #75 tabs diclofenac sodium 75 mg 75 mg PO BID PRN pain #60 tabs 12/31/24 04/22/25 Rx tablet,delayed release phentermine 37.5 mg tablet mg 04/22/25 History Allergies Allergy/AdvReac Type Severity Reaction Status Date / Time No Known Drug Allergies Allergy Verified 04/22/25 10:22 Exam Constitutional Documenting provider has reviewed patient's vital signs: yes Common normals: no apparent distress, oriented x3, healthy appearing, alert and well nourished General appearance: cooperative Orientation/consciousness: Yes awake, Yes oriented to person, Yes oriented to place and Yes oriented to time Other: uses cane HENMT Common normals: normocephalic, hearing grossly normal bilaterally and moist oral mucous membranes Head and scalp: normocephalic Eye Common normals: PERRL Pupil: PERRL Neck & C-Spine Common normals: full ROM General: normal visual inspection Cervical spine: pain with cervical ROM Other: negative sprulings strength 5/5 in BUE sensation intact/equal BUE Chest Common normals: inspection of chest normal Respiratory Common normals: normal respiratory effort, no retractions and no use of accessory muscles Effort & inspection: able to speak in complete sentences and symmetric chest movement Back & Pelvis Common normals: thoracic and lumbar spine normal to inspection Lumbar spine/lower back: normal to inspection, ROM limited, pain with ROM, paraspinal muscle tenderness, paraspinal muscle spasm, straight leg raise positive right and straight leg raise positive left Other: positive facet loading bilat positive jo-ann bilat Muscle strength 4/5 LLE, 5/5 in RLE decreased sensation to left l4,5,S1 Extremity Common normals: normal to inspection and full ROM Neuro Common normals: oriented x3 and CN's II-XII intact bilaterally Sensorium/orientation: alert Gait (neuro): antalgic and assistive device used cane Motor exam: no movement abnormalities noted and strength abnormal Psych Common normals: mental status grossly normal, thought process normal, cooperative, affect normal, speech normal and activity/motor behavior normal Speech: normal speech Thought process: normal thought process Results Additional Findings Additional findings: If on a controlled substance or opioids, I have checked an [place] report on this patient and there are no aberrancies noted in the prescribing history.??If on a controlled substance or opioid a drug screen was completed and reviewed within the last year, and if there has not been a drug screen completed we ordered one today to monitor higher risk, state monitored pain medication use. As part of providing excellent, safe, comprehensive care, the following was completed at our patient's visit: 1. A medication reconciliation and review to ensure accurate knowledge of current/active medications, including asking our patients to inform us about any [id number] medications or herbal remedies/nutritional supplements/alternative remedies. 2. A review to specifically ensure our patients have had annual screening for screening for depression, screening for tobacco use, and screening for unhealthy alcohol use. For concerning screenings had a discussion with the patient, provided patient education, and recommended follow-up with primary care provider when appropriate. If patient noted with a risk of falling, they received education on strength, gait, and balance training to prevent future risk of falling. Assessment and Plan Assessment and Plan (1) Lumbar radiculopathy: Assessment and Plan: The patient has had over 3 months of moderate to severe low back and BLE pain with functional impairment and inadequate response to conservative care including NSAIDS (unless there are contraindication such as concurrent blood thinners), multiple oral or topical pain medications, and home exercise program/physical therapy.? Patient has completed >6 weeks of guided home exercise program and/or formal physical therapy program without relief of their symptoms.? The Oswestry Disability Index was completed, and the patient scored a 64%.? The patient noted the following:?? severe pain impacting ADLs, sitting, standing, walking, lifting, social life, sleep, travel (2) Lumbar spondylosis: (3) Cervical radiculopathy: (4) Cervical spondylosis: (5) Chronic prescription opiate use: Assessment and Plan: I feel these medications are improving the patient's quality of life and allow them to tolerate activities of daily living as well as participate in recreational activity.? The patient does not report intolerable side effects. The patient is NOT opioid naive and non-pharmacologic and non-opioid treatment has failed to significantly relieve the patient's pain and improve functionality. The patient has a diagnosis that is related to a somatic or visceral pain etiology. ? ?? I reviewed with the patient the potential risks and side effects with the use of? opioid medications including but not limited to respiratory depression,? sedation, and even . Within the last 12 months I have verified the patient has access to naloxone should? these effects occur. The patient was advised to let? their family know they had Naloxone in case they would need to administer? the medication. I advised the patient to avoid the use of any other? sedation substances including alcohol, THC, and benzodiazepines while? taking opioid medications due to the risk of compounding side effects and? detrimental outcomes. within the last 12 months I have reviewed the BACTERIOLOGY PROFESSOR, pain treatment agreement and urine drug screen.? ?? A drug screen was completed within the last year, and no aberrancies were noted regarding their use of controlled substances. The patient understands they are subject to the terms and conditions of the pain contract that they have signed. ? ?? I have checked an OARRS report on this patient today and there are no aberrancies noted in the prescribing history.? (6) Lumbar stenosis with neurogenic claudication: Plan update lumbar MRI without contrast in consideration of NS consultation vs additional interventional therapy. does not wish to proceed with scs trial at this time. continue f/u with neurology continue current medications, tolerating well without side effects. risks vs benefits reviewed f/u to review lumbar MRI
== END 2025-05-02 09:08 | disposition home or self-care (01) ==
LOC: PM 09:08
PROVIDERS: PCP Family Medicine; Visit Provider Nurse Practitioner
DX: M54.16 Radiculopathy, lumbar region (principal); M47.816 Spondylosis without myelopathy or radiculopathy, lumbar region; M54.12 Radiculopathy, cervical region; M47.812 Spondylosis without myelopathy or radiculopathy, cervical region; Z79.891 Long term (current) use of opiate analgesic; M48.062 Spinal stenosis, lumbar region with neurogenic claudication
CPT/HCPCS: G0463

== ENCOUNTER 2025-05-27 09:13 | Outpatient (OUT) | payer MEDICARE, SELFPAY ==
--- NOTE | 2025-05-27 09:15 | MR_ITS ---
The [address] [address] Patient Name: DION ANDRES MRN: [facility]:[id number] date: 1975 Sex: M Assigned Patient Location: MRI Current Patient Location: MRI Accession/Order Number: [id number] Exam Date: 05/27/2025 09:30 Report Date: 05/27/2025 14:28 At the request of: ABEBA SCHAFFER NP Procedure: MR lumbar spine wo con EXAMINATION: MRI LUMBAR SPINE WITHOUT IV CONTRAST CLINICAL HISTORY: Lumbar Stenosis With Neuro ClaudicationChronic back pain with bilateral lower extremity radiculopathy and weakness for 4 years. COMPARISON: Lumbar spine MRI 03/26/2024 TECHNIQUE: Multiecho imaging was performed in the sagittal and axial planes without contrast administration. FINDINGS: There appears to be a chronic compression fracture deformity involving the L1 vertebral body without bone marrow edema present. Configuration is similar to the prior study no retropulsion into the spinal canal is seen. Remaining vertebral body heights appear maintained. Spinal cord terminates in normal position without abnormal cord signal. No paraspinal mass. Visualized retroperitoneum demonstrates no acute process. At L1-L2: No posterior disc pathology. Facet joint effusions. No neural canal or foraminal stenosis. At L2-L3: Facet joint degenerative changes limit flavum hypertrophy. No posterior disc pathology. Findings are causing mild canal stenosis. At L3-L4: Minimal broad-based disc bulge with ligament flavum hypertrophy and facet joint degenerative changes causing mild canal stenosis. At L4-L5: Minimal broad-based disc bulge is present with facet joint degenerative changes causing no significant canal stenosis and minimal bilateral neural foraminal stenosis. At L5-S1: No posterior disc pathology. Facet joint degenerative change. No neural canal or foraminal stenosis. Incidentally noted is a broad-based disc bulge at T12-L1 partially visualized on today's study causing no significant canal or neural foraminal stenosis. MR/MR lumbar spine wo con IMPRESSION: Chronic compression deformity of the L1 vertebral body similar configuration to the prior study from 2023. No retropulsion into the spinal canal is seen. No significant canal or neural foraminal stenosis is seen. Impression dictated by: Kwasi Kennedy Jr., D.OTati 05/27/2025 2:28 PM Dictation Location: [place] [address] Electronically authenticated by: [id number] Y Date: 05/27/2025 14:28
--- OUTSIDE RECORDS SUMMARY | 2025-05-27 09:28 | XMS_ITS | CCD ---
Author Organization [facility] Care Team Providers Care Clinical Appeals Reviewer Name Role Phone KIRN, DALLAS Unavailable Unavailable [...] Attending Unavailable TRACIE MATHIS Consulting Unavailable LORENA OWLFF Admitting Unavailable Maurizio Patrick MD Unavailable Unavailable [...] Provider Unavailable Temi Marshall APRN Attending Provider [phone] Mk RICHARDS, Renetta Marlow Attending Unavailable Milan Nails MD Primary Care Provider Medications Current Medications Medication Drug Class(es) [...] six hours as needed for pain HYDROcodone-acetaminophen ([place]) 5-325 MG tablet 1 tablet every 6 (six) hours if needed for severe pain Active take 1 tablet by jay th every six hours as needed [place] 5-325 MG 1 tablet as needed Orally every 6 hrs Active [id number] actuat albuterol 0.09 mg/actuat metered dose inhaler (14 sources) beta2-Adrenergic Agonist Start: 04-17-2025 Albut parul [...] (20 sources) gamma-Aminobutyric Acid-ergic Agonist Start: 04-10-2025 End: 04-24-2025 take 1 tablet by mouth four times daily Baclofen 10 mg tablet Active 10 MG PO Four times daily 120 April 24, 2025 1:21pm Complies with drug therapy Start: 01-03-2025 End: 02-05-2025 take 1 tablet by mouth four times daily Baclofen 10 mg tablet Active 10 MG PO Four times daily 120 April 10, 2025 12:00am Complies with drug therapy Start: 10-29-2024 End: 01-03-2025 baclofen (Lioresal) 5 [...] Orally Three times a day Sep, Active diazePAM 10 mg oral tablet (1 source) Benzodiazepine Start: 05-08-2025 Diazepam (Valium) 10 mg tablet Active 10 MG PO Once as needed for claustraphobia 09 19May 08, 2025 12:00am Take 30 minutes prior to MRI Complies with drug therapy diclofenac sodium 75 mg delayed release oral tablet (12 sources) Nonsteroidal Anti-inflammatory Drug Start: 12-31-2024 take 1 tablet by mouth twice daily as needed diclofenac (Voltaren) 75 MG EC tablet Take 75 mg by mouth 2 (two) times a day as needed 12/31/2024 Active take 1 capsule by mo ut three times daily as needed Diclofenac 18 MG 1 capsule as needed Ora lly Three times a day Active DULoxetine 60 mg delayed release oral capsule (20 sources) Serotonin and Norepinephrine Reuptake Inhibitor Start: 04-17-2025 End: 04-23-2025 take 1 capsule by mouth once daily Duloxetine 30 mg capsule,delayed release(DR/EC) Active 30 MG PO daily 90 90 April 23, 2025 8:02am Complies with drug therapy Start: 12-05-2024 End: 02-05-2025 take 1 capsule by mouth once daily DULoxetine (Cymbalta) [address] capsule Indications: Neuropathic pain TAKE 1 CAPSULE BY MOUTH ONCE DAILY 30 capsule 3 12/05/2024 02/05/2025 Discontinued Start: 08-01-2024 take 1 capsule by mo uth once daily DULoxetine (Cymbalta) [address] capsule Indications: Neuropathic pain TAKE 1 CAPSULE BY MOUTH DAILY 30 capsule 3 08/01/2024 Active Start: 03-26-2024 take 1 capsule by mo uth once daily DULoxetine (Cymbalta) [address] capsule Indications: Neuropathic pain TAKE 1 CAPSULE BY MOUTH DAILY 30 capsule 3 03/26/2024 Active Start: 02-23-2018 End: 04-24-2025 take 1 capsule by mouth once daily Duloxetine 60 mg capsule,delayed release(DR/EC) Active 60 MG PO Daily April 24, 2025 1:20pm Complies with drug therapy take 1 capsule by mo uth once daily DULoxetine HCl 30 MG TAKE [...] propionate 0.05 mg/actuat metered dose nasal spray (10 sources) Corticosteroid Start: 02-20-2025 End: 05-08-2026 Fluticasone Propionate 50 mcg/actuation spray,suspension Active INTRANASAL April 17, 2025 12:00am Complies with drug therapy Start: 09-23-2023 take 2 spray(s) nasa l route once daily Fluticasone Propionate 50 MCG/ACT 2 sprays Nasally Once a day for 14 day(s) Sep, Active lisinopril 20 mg oral tablet (20 sources) Angiotensin Converting Enzyme Inhibitor Start: 02-23-2018 End: 05-13-2025 take 1 tablet by mouth once daily Lisinopril 20 mg tablet Active 20 MG PO Daily 90 90 May 13, 2025 9:09am Complies with drug therapy Medical Marijuana / Cannabinoid Product as documented (2 sources) Medical Marijuan a / Cannabinoid Product as documented as documented as documented as documented Active omeprazole 20 mg delayed release oral capsule (20 sources) Proton Pump Inhibitor Start: 02-23-2018 take 1 capsule by mouth once daily Omeprazole 20 mg capsule,delayed release(DR/EC) Active 1 cap/day PO Daily February 23, 2018 12:00am Complies with drug therapy End: 02-05-2025 take 1 capsule by mouth before mealtime omeprazole (PriLOSEC) [address] capsule Take 40 mg by mouth in the morning. Take before meals. Do not crush or chew.. 02/05/2025 Discontinued ondansetron 4 mg disintegrating oral tablet (10 sources) Serotonin-3 Receptor Antagonist Start: 08-09-2024 ondansetron ODT (Zofran-ODT) 4 MG disintegrating tablet 4 mg 08/09/2024 Active phentermine hydrochloride 37.5 mg oral tablet (11 sources) Sympathomimetic Amine Anorectic Start: 04-17-2025 End: 05-13-2025 take 1 tablet by mouth once daily 30 minutes after breakfast Phentermine (Adipex-P) 37.5 mg tablet Active 37.5 MG PO Daily May 13, 2025 9:09am must administer 30 minutes before or 1-2 hours after breakfast Complies with drug therapy Start: 02-04-2025 End: 03-27-2025 phentermine (Adipex-P) 37.5 [...] mg oral capsule (20 sources) Start: 04-17-2025 End: 04-24-2025 take 1 capsule by mouth three times daily Pregabalin 200 mg capsule Active 200 MG PO Three times daily April 24, 2025 1:25pm Complies with drug therapy Start: 01-31-2024 End: [...] oral capsule (20 sources) beta-Adrenergic Piyush Start: 01-03-2025 take 1 capsule by mouth once daily Propranolol 80 mg capsule,extended release 24 hr Active 80 MG PO Daily April 17, 2025 12:00am Complies with drug therapy End: 02-05-2025 take 1 tablet by mouth [...] 04/18/2024 Active gabapentin 600 mg oral tablet (2 sources) Anti-epileptic Agent Start: 06-18-2019 End: 04-17-2025 Gabapentin 600 mg Tablet Discontinued 700 MG PO Three times daily June 18, 2019 12:00am April 17, 2025 9:57am Gerd Medication (2 sources) Start: 02-23-2018 End: 02-23-2018 Gerd Medication Discontinued February 23, 2018 12:00am February 23, 2018 4:42pm mexiletine hydrochloride 200 mg oral capsule (2 sources) Antiarrhythmic Start: 06-18-2019 End: 06-18-2019 Mexiletine 200 mg Capsule Discontinued June 18, 2019 12:00am June 18, 2019 7:52am Problems Active Problems Problem Classification Problem Date Documented Date Episodic/Chronic Allergic reactions (1 source) Allergic contact dermatitis due to plants, except food Episodic Anxiety disorders (1 source) Anxiety; Translations: [Anxiety disorder, unspecified] 05-08-2025 Chronic Chronic obstructive pulmonary disease and bronchiectasis (7 sources) Chronic obstructive lung disease; Translations: [Chronic obstructive pulmonary disease, unspecified] Onset: 02-19-2025 02-19-2025 Chronic Chronic obstructive pulmonary disease and bronchiectasis (1 source) Bronchitis, not specified as acute or chronic Episodic Disorders of lipid metabolism (7 sources) Hyperlipidemia; Translations: [Hyperlipidemia, unspecified] Onset: 07-25-2024 02-19-2025 Chronic Esophageal disorders (10 sources) Gastroesophageal reflux disease; Translations: [Gastro-esophageal reflux disease without esophagitis] Onset: 07-25-2024 02-19-2025 Chronic Essential hypertension (14 sources) Hypertensive disorder; Translations: [Hypertension, unspecified] Onset: 07-25-2024 02-19-2025 Chronic Headache; including migraine (9 sources) Migraine; Translations: [Migraine, unspecified, not intractable, without status migrainosus] Onset: 02-19-2025 02-19-2025 Chronic Nausea and vomiting (10 sources) Nausea with vomiting, unspecified; Translations: [Nausea and vomiting] Onset: 07-25-2024 02-19-2025 Episodic Comment on above: Problem List clean-u p per request of Phys. EHR Cmte Nonspecific chest pain (2 sources) Chest pain; Translations: [Chest pain, unspecified] 08-31-2023 Episodic Comment on above: Problem List clean-u p per request of Phys. EHR Cmte Osteoarthritis (9 sources) Arthropathy of left hip joint; Translations: [...] Onset: 02-16-2023 Chronic Other nervous system disorders (20 sources) Neuropathy; Translations: [Polyneuropathy, unspecified] Onset: 04-11-2024 [...] Episodic Other nutritional; endocrine; and metabolic disorders (7 sources) Obesity caused by energy imbalance; Translations: [Morbid (severe) obesity due to excess calories] Onset: 02-19-2025 02-19-2025 Chronic Other nutritional; endocrine; and metabolic disorders (5 sources) Body mass index 40+ - severely obese; Translations: [Morbid (severe) obesity due to excess calories] 04-17-2025 Chronic Other upper respiratory disease (5 sources) Rhinitis medicamentosa; Translations: [Chronic rhinitis] 02-20-2025 Chronic Other upper respiratory infections (1 source) Acute sinusitis, unspecified Episodic Residual codes; unclassified (4 sources) Obstructive sleep apnea syndrome; Translations: [Obstructive sleep apnea (adult) (pediatric)] 02-23-2018 Chronic Screening and history of mental health and substance abuse codes (2 sources) Ex-smoker; Translations: [Personal history of nicotine dependence] 04-21-2025 Episodic Spondylosis; intervertebral disc disorders; other back [...] request of Phys. EHR Cmte Substance-related disorders (2 sources) Smokes tobacco daily; Translations: [Nicotine dependence, unspecified, uncomplicated] 02-23-2018 Chronic Unclassified (1 source) LOW BACK PAIN, UNSPECIFIED; Translations: [LOW BACK PAIN, UNSPECIFIED] Onset: 03-17-2022 Unclassified (1 source) Abdominal Pain; Vomiting; Diarrhea Onset: 07-24-2024 Past or Other Problems Problem Classification Problem Date Documented Da te Episodic/Chronic Intestinal obstruction without hernia (9 sources) Ileus, unspecified; Translations: [Unspecified intestinal obstruction, unspecified as to partial versus complete obstruction] Onset: 07-24-2024 02-19-2025 Episodic Other nervous system disorders (20 sources) Sensory ataxia ; Translations: [Other lack of coordination] Onset: 04-11-2024 04-11-2024 Episodic Other nervous system disorders (20 sources) Numbness of lower limb ; Translations: [Anesthesia of skin] Onset: 04-11-2024 04-11-2024 Episodic Results Test Name Value Interpretation Reference Range Facility Patient Letteron 03-13-2025 Patient Letter [id number] 03-04-2025 Coding Summary HTMLBase 64 MulifasxLAf8dCr+PGhlYW Q+QT8BTNQjT18fmUZwhK4j V9UDAOoRQisdTINHNVqPUn TudvAmPT5neHLgKICn IC8+KZ6dGXChPczriDScw0 Z3yMW7B61cqm5eYSfciTP4 NTCdZhKfqiuuz2nkpJx4OL cuNmluOyBt FCXefB02MPF2zU18Xu96kU NyvZUcu7qdhYv7CsPgXNGs VJQ7gCnmOUqxc4JjMGAuU8 3khPWzh7G7 PPAiyUuoxTJaEfKlhOP7oQ 6aDPsoimlop5inqdfrTbi4 jt35aBDxf0N3dCX9R6Pwgq D1DFTifSAf IqrprIXHiR2naqqye5liku vcYjOvMWYmJJh5HEk6HPCk uUwiMsVjJP83HHO9UMOppa BfJ3QuLZEp iPxlNaP2f1S0Qs6QM6LHDf plM8TWQNBKLYxqsMS+PC90 ku54A8UoSjceIut0BKJlDJ Z8lHM2bG6z QIVcVGdwq2Q7vTJ7Z3Qrum Dewu4wu2buCWEoWBliD94b fMRiq8Y6NUGhrKC4CTWkwO hlDuOksL38 Oyc+DMPyvCaaa8XqRmdfg3 nxb2glfJh2ShkiRKNbtiRy jMgxVRT7i1JmGf2gVMMigF I2eSA1vJ5j UyKzYwX8VHcvU237VlVehD FfVtnoT87tS1RqeJS+PHRy Qdb3WPThcDnjBF9uI8NtBN RpbmctbGVm gFdpAQ4xVZBgrpjuVLWotR 9qAKAwL4f9AzFrMtS8WXgm K9VvXWBqfzyxSh70lB6xXm TcSpX4JTto A7ChmnV6XHUzcUFkXRcdXI P1R50hy0F7ZSDoVPSmFLX7 tPT2pJ6rdLaqvrxphNFbxQ sgdmVydGlj AHbxJGqpS398YUOnjVqgJk NvZGluZyBEYXRlOiAgMDYv MTYvMjAyNTwvdGQ+PHRkIH X6jRtyVMVo aJImESgzPx7ogOzfqRrrAC 5xKGEszcwhTMQywG9tFHVy nEMvyUerFO8sYDBuylirf9 59YzEsUSM6 RSSeyBGeY2AjpZ4cFjNmXQ UcMIHlA4BljEVkEIkeC795 LAmxIcP6RETsmtUjO4ShCU FsaWduOiB0 h5N4Zl8Ab0KvgzbsH7EspL YnKsVgLktyCKb0E3YmIffs dHI+QE31JQJiDY72TMg0YW T8eJuwFHsi PBIdJ2DjtM7dZgCdKPDwRY RkOyc+PHRhYmxlIHdpZHRo MFctZXAvTnBdwKgqGD3oPc 9yZGVyLWNv iSciwORdZvGpk8wpHDQhVM qaQO0kzDunS8RrkOX5VNQn i0x1Cs15B36wS9NmdKD+PG YabMG5eDP6 nN7eXcAxOlF9VCyvD616Yp AmeYJwNuzgx2tum2xpzId2 RtG3JMSrjxYylZtrADP1r2 ZnPr45H18z IHdpZHRoPSIxNSUiIHZhbG qzmp8npV5wWj5+PGNvbCB3 zVO0sE3qXmDtJxY4BPorT2 49InRvcCIv Dzzth6ibp6cshCx0UoGmQP YiagYkmIwzOMV8e6CfQv63 M5UaaKfey7HyEgy9vf49kB Pdv1O2gLI4 L3RtLELxjcfcdNJkhApfQQ 1cCIUgpddjLMIcnC1nLCVw M6u0UyXkTvP4BPbyG0Gykv Z8MUChcDGh GUTzjCSAlR6wxkzlv9diis pcSfDtUXEjKId9OSw1NFZu rYzbAlHhMUH1FaK9BWP7vE IkkX3fwCel qaskoA1yAtf+QQC6xBFzsR QMFR2rDoqjnVF+PHRkIHN0 fWhrWUfqRHZhtN0uPQBoW0 o5PcNrGfZ1 AKhiQ5IkhnT0PWAxpRLhTG IlxDLBdT8yucefs4xionnq DfGcPHAvFCs3LRb5ADNlbH duOiBsZWZ0 AqY9EJD6rKRpkV1ghSkexv jjcK3sQqz+QmlydGggRGF0 XNd2O9MqCul8WIEomFuwKX 0ncGFkZGlu Yd5fwVtacMptCU8nZTSsia nwe926QzDzp4ctTVYbjMMh RJkxSEZ1I30tf7H6RERwMM NnXLB1tGV7 gA9yiEaggatyaUBriHypbs UdoGmtZGsdIRntR449KQNk mHrsQcGiQRw4N5KbTtg4EI JwnQnpOU0r eAXpVXfoPn4kbMbtaJeaYN 6fJBOwpjlwu624YrYqm1lu ZZTztPDuUYjbPPS1I10dk3 N0NDLwQBAn XAR0jDA6pA0stEybpfnwlW VmdDsgdmVydGljYWwtYWxp K309DTElsDckYvJpuSi7T6 BmFvo2GKTk iCyxEP2gyJYuQKkxEt3rgA mwyGxbKX9cMIHryrilz090 UaRvx6xwCSYmfJGnETmtSV T5A49fp7C8 QECyFUDmQHX3zUZ2xH5bdS lnbjogbGVmdDsgdmVydGlj RWubCKtpT033TJAcbKfdYo BhdGllbnQg SUfmZKr1W0UmYmzpeZV+PC 78JMXeHT54rZEaxKKgo9kf iXh9GlKsWICfNJR8fLgwGJ abb0ZxMPAr X39uqSJtc1Z1GTFkaAxlsC EdKuEqxUP1xC9gQMzskdwp o4innggwKgtlu7tyrh10jB 78B92gVNns ZHRoPSIzMCUiIHZhbGlnbj 3efR0pLv6+NMFowJW3gWO8 pY2eTNLiPhG8TOlbT510Kz RvcCIvPjxj i4myv1hdxJj3AuD6IDLnjw AtkQwkKDG0u0MlNx26U27g IHdpZHRoPSIyMCUiIHZhbG zllm2pcT8w Ii8+PSWhsFC2cHH4sI2zKr NcZxA8ITpnH727TdFarFYv LhgvW81dT3HyoWD+PHRyPj q5GAGosXjm YH9fyTKgNBscPb6fVCR5Gg UgBcAkGRhnY1OcVKPawmzp smfobKV4QMRuOCZopL38Od 9udDogMTBw tCYFxW6zwquiy8ritlwlBx OqJWNlMWn1TEi1NOOgfPcl VcVnOYK8KfS2DMU0zBGgcT 1hbGlnbjog qF9cE2TkWQHujyuqNf27mI 4oOhMjInC1GGgaQtb+U0VE BZ9PFnrkN0HKEINCGAKBW7 FSRDwvdGQ+ ZBIvYCJ3mAyyMGkaBPAqkP 9vXEBxE3u9VtXvZrM6VMof J4VeGQIdkhluTr21hP1gNh ZtXnE3JOmj X7XvrjV7UOCgaJXzHEqrAD M7C51eg2R9DKJnYOGdZLE5 wBM3oN7ftZhfzcckfXUneG sgdmVydGlj XDagLFyeA063BXIfySqhGa SiApEwXdS3CaR6F7DaGqf4 HDOpwNptOM8stLZhTBkfBz 1yaWdodDog VZ9dMXNpgkqzRBBeiV9lYS UkpQAaaBusMS1dFXBgbegt f249UfLqGXG9ZVJwtOJwD2 BkaH2sYcXm VWNsFUIxT7OqqJNyDTbyE0 81TNvoHcU5UQLcshAyU8Fa JXYjzIxsHaO5d5O4Qi68VM BZZWFyczwv dGQ+WTRdEIX6xZdbWSokEM JbhZ8yZRJsB7w4LbIwHyI5 YIupR2KtAPNefcbeOs58dU 0zJdKtOsQ5 YZkdG4PqsfR8KNFtoXKkOH rsBYV4A64us0F3XAMqAPVr ANT1lXX2sC0mnDyurjtyaD VmdDsgdmVy nRgkSAoiDJldC352QRJycF kjXd9KGPM0B7JdSbv9MJBw zMuaOC6pdZVuYFzgYe8xyR xoaHjkTI0s PUNbgqxnDPFuuG6pVDErkZ NdvCymEZ8sVFEicgnxd592 LuSnLKZ9PSEenFKaZ3RgoU 9yOiAjMDAw GUDcI6CfyNNsJNqoA121NY hnMtA8UDGxzcQlC2PpJMDx rVwyDuI3h6U0Tz1LNLkmE2 OxU0ApdBuv dGQ+PF03mz56V6KbYkniAd c9EXYoUXE9xRV5mN6jWVCu NUbce8N6dFF7C5ReqdHskm 5he1daKWZw IZkiF70jdRKpl7R8PPPpbL S2FJEesXemZyAxhO71Hbh+ IZDerLpfd9IzXsunt0cas5 yxiDu8IzPr KBGhpaMxrXosKNV0q8FlLr 00U20iNJdvIZUiKXTfSCZw JDMkuRihji5pcV9hNl9+PG EluQL2zIG4 gU8uRmLkBqR3OGwlM180Qf JjcYFeNcoge3xsd1hjwZu8 MkEnHHPdszPrxQetLME8k7 NuPo40V5Ot xEdgu0TrYsv5wb37iWGme3 A3tHR2S7GiHCDcrgybcWEt vCddOK0xQPMfhinwWUGopY 1fWBRaE0o4 SgSwVoL9VUjnH3XfunW9JH EcfHGzPBXyqMMNuU7dbbze p8xqrmvoCeBvADLmEMh1CW s5KBWjlGxr UoUaFAW1NqR9CYU9tCXbnZ 3ioLyyihlpaM1fWvt+UGh5 x5nmeNLgJS2qkYI6HY55KD 29zLDae7U6 jTI7V5KsNPVxquzesauivK T1GYBxSJQxlB17Hx3dhAbz Vt2kIXFaNRL7MIMhtFPeP7 BpcE8vXsQr NWQqWSZlZ3AorOKmQXpwO0 58LOqdAfN3XRUrhnOtE2Ky XTBndBukYlW0p4N0Jg0GQZ 35QP62GY55 tMOez6B0kZP1Z7SbIGCxhl ecjpgdpYY4PJQjUYDshZ32 Fm8keIvaEg6zLBVaRGU8AW ThkVTlS8Hm kM5yUjCaKUUuTMGdR6GixC FtHZvfQ783WHbyIjU3HSOw kcLoO7QhNIXyvDcyVaA4z6 U0Yl6NWk02 ET46KC69bUTfu5H6mQN5B2 OlFRAoqaavkwyooPP1UJLk JVYlbC64Zd0yfBgjKw0vQW ClWPZ4UMLe iHRoM1AmyW0rMnSpNLBqWS WmK8BzgOGnXYumD553YPhe YdY4DSNrwpMcH1FpZKSbmK wbLvF7m6V3 Ux5PZPnvbpr6H8RcCvkxpV I+NJ18UGOfCX32nJKckEUv y9lkwEb4LiNjJBYnYYS2fN omMKqmg4Tb ZXI (more content not included)... [facility] Provider Orderson 02-25-2025 Provider Orders [id number] [facility] Consent Formson 02-22-2025 Consent Forms [id number] [facility] Anesthesia Noteon 02-21-2025 Anesthesia Note Patient: RICCARDO HALE Age: 49 years Sex: MALE : 1975 Associated Diagnoses: None Author: Eitan Ramírez MD Postoperative Information Post Operative Note Health Status Allergies: Allergic Reactions (All) No known allergies Problem list: All Problems Chronic sinusitis / SNOMED CT 67209850 / Confirmed Side effect of medication / SNOMED CT 341570135 / Confirmed Headache / SNOMED CT 76133967 / Confirmed Hypertension / SNOMED CT 0107083715 / Confirmed Ileus / SNOMED CT 0149456455 / Confirmed Migraine / SNOMED CT 07194356 / Confirmed Nausea / SNOMED CT 7655498485 / Confirmed Obesity / SNOMED CT 0214288181 / Confirmed GRACIE (obstructive sleep apnea) / SNOMED CT 368279043 / Confirmed Sleep apnea / SNOMED CT 269970376 / Confirmed Umbilical hernia / SNOMED CT 7109430147 / Confirmed Physical Examination Vital Signs (last [...] on: 02/21/2025 08:59 EDT] Eitan Ramírez MD [facility] Anesthesia Note Patient: RICCARDO HALE Age: [...] All Problems Chronic sinusitis / SNOMED CT 68577712 / Confirmed Side effect of medication / SNOMED CT 054722931 / Confirmed Headache / SNOMED CT 09314313 / Confirmed Hypertension / SNOMED CT 5224875733 / Confirmed Ileus / SNOMED CT 5171114276 / Confirmed Migraine / SNOMED CT 80225530 / Confirmed Nausea / SNOMED CT 9565159787 / Confirmed Obesity / SNOMED CT 1294517776 / Confirmed GRACIE (obstructive sleep apnea) / SNOMED CT 168462188 / Confirmed Sleep apnea / SNOMED CT 925767535 / Confirmed Umbilical hernia / SNOMED CT 2900703814 / Confirmed Histories Family History: COPD - [...] 21 06:34) SBP H 146 mmHg (FEB 21:34) DBP H 94 mmHg (FEB 21:34) Review / Management Laboratory Results Plan [place] [employer]hesi[employer] (ASA) physical status classification: Class III. Anesthetic Preoperative Plan Anesthesia: Monitored anesthesia care. Anesthetic plan, risks, benefits, and alternatives discussed with the patient and/or family. Patient verbalized understanding. [Electronically Signed on: 02/21/2025 07:31 EDT] Eitan Ramírez MD [Verified on: 02/21/2025 07:31 EDT] Eitan Ramírez MD [facility] Inpatient Patient Summaryon 02-21-2025 Inpatient [place] [address] Patient Discharge Instructions Name: RICCARDO HALE : 1975 Patient Address: [address] [place] [address] Primary Care Provider: Name: MILAN NAILS DO After you are discharged if you find you have any questions, please, call [phone] ext [phone] to speak to a nurse. Discharge Diagnosis: [...] alcohol and/or drug addiction problems; contact the [facility] 11/04 Crisis Hotline -Text 4HRBN xp 329305. If you received any narcotics, sedation, or [...] business decisions or sign any legal documents [facility] would like to thank you for allowing us to assist you with your healthcare needs. The following includes patient education materials and information regarding your injury/illness. RICCARDO HALE has been given the following list of follow-up instructions, prescriptions, and patient education materials: Follow-up Instructions With: Address: When: MILAN JAQUI With: Address: When: Martinez Gonzales [address] [place] [address], [place] [address] Business (1) , only if needed Medications [...] cap(s) Ora (more content not included)... Normal [facility] MAGR Intraoperative Recordon 02-21-2025 MAGR Intraoperative Record MAGR Intra-Op Record Summary Primary Physician: Martinez Gonzales MD Finalized Date/Time: 02/21/25 08:30:12 Pt. Name: RICCARDO HALE /Sex: 1975 MALE Med Rec #: [id number] Physician: Martinez Gonzales MD Financial #: [id number] Pt. Type: D Room/Bed: / Admit/Disch: 02/21/25 [...] Ramírez MD, Debra RN Radloff, Leigh-Ann CSFA [facility] Role Performed Anesthesiologist of Cnc Programmer Document Control Assistant Record Time In 02/21/25 08:03:00 02/21/25 08:03:00 [...] Ramírez MD, Jessica Arredondo RN, Melvin Causey [facility], Dale Rothman Last Modified By: Jessica Arredondo [...] RN Airway Maintenance (more content not included)... [facility] MAGR Postoperative Recordon 02-21-2025 MAGR Postoperative Record MAGR Phase II Record Summary Primary Physician: Martinez Gonzales MD Finalized Date/Time: 02/21/25 09:09:46 Pt. Name: RICCARDO HALE MARYSE LiconaB./Sex: 1975 MALE Med Rec #: [id number] Physician: Martinez Gonzales MD Financial #: [id number] Pt. Type: D Room/Bed: / Admit/Disch: 02/21/25 [...] By: Elvira Hirsch RN 02/21/25 09:09 [facility] 02-21-2025 MAGR Preoperative Record MAGR Pre-Op Record Summary Primary Physician: Martinez Gonzales MD Finalized Date/Time: 02/21/25 08:05:28 Pt. Name: RICCARDO HALE /Sex: 1975 MALE Med Rec #: [id number] Physician: Martinez Gonzales MD Financial #: [id number] Pt. Type: D Room/Bed: / Admit/Disch: 02/21/25 [...] Signed By: Jessica Arredondo RN 02/21/25 08:05 [facility] Patient Handouton 02-21-2025 Patient Handout Gastroenterology [...] exercise. ? You smoke. ? You take txef-fut-nfapeph pain medicines. ? You have a family [...] these instructions at home: Medicines ? Take xukb-aco-rhyrjjb and prescription medicines only as told by your provider. ? If told, take a fiber supplement or probiotic. Managing constipation Your condition may cause constipation. To prevent or treat constipation, you may need to: ? Drink enough fluid to keep your pee (urine) pale yellow. ? Take smgl-cwi-ipdcdlh or prescription medicines. ? Eat foods that [...] provider. Document Revised: 06/02/2023 Document Reviewed: 06/02/2023 [employer] Patient Education ? 2023 [employer]COM. Radiology Colonoscopy, Adult, Care After The following [...] for 20?30 minutes (more content not included)... [facility] Outside Recordson 02-06-2025 Outside Records [id number] [facility] Release of Informationon Release of Information [id number]#[id number] [facility] Coding Summaryon 11-26-2024 Coding Summary HTMLBase 64 WoqjzwahAGw6nZo+PGhlYW Q+XY9YCUFdQ08xwMXrdS6f B3MEJTjPHjdfVWBSNIeDJo LeleNeIS1vkXLjJWYp IC8+QG5dBAGlEtoayUOgp5 T2rOM9D46xia5aSJbqaDK6 KXElVfKjhptbg0ysiBp2PO cuNmluOyBt MEBrdD47BCC7bW92Fy68sU JkaMFpq3olbHb3ZuLdOETj JZB7eQpwJFfmg8ZlELGeG4 6dsPLgq2U3 LNJjrXxtdYZnWrJgyCN9qI 9bYTxmnxcfu4ltjqwdIdz4 uw70yQGzf9Y3lNO1D0Udcw Y6WJUtsVZs EaqbjOZCwZ7sholzr4ituc kbUpMrETCnBBt9KWr5ALLi cYurThMkTD30ZMD1SKMtxw PmT0ExEUDf mWviHgL8x8M3Gv9PM3WGKa frX5KNUTWKINcsaRA+PC90 hk87Z8AuBlzcPoa2MEFbEM O7tYI2eU3t DHWqGOnqq6Z1uZW6S0Ihty Ufas3sq4cbGJNpFXrcW15w nLJwh3X4MMYtySJ1XCUdcB imIyStmS01 Oyc+NAPygJink7RpJdxrs6 sed4mxlTw8FyitIUAuymZf qNlfNPA1d1WqVo7xFXHfnG X4yZS8aY8o PsDwHoW3APolK450OtUqxG PtKkztM35bH1WdkJE+PHRy Mzc9YQRncVpmMC8cK0IuIO RpbmctbGVm pFwsOQ0fLNLvbjonKUWksO 2uENUaF1i0SlMdHuW8ZXra F3VaCVUlcpabPx63eX3fGo GfVhN7GRbl R4RqueJ7XLYsnEJbWBaiRT Q0Z48km0N5JYFiJJZkDRR6 iRI3oP9seRctcveoyGRzkR sgdmVydGlj ZAzeOXfmV855SXLdzImtUp NvZGluZyBEYXRlOiAgMDMv MTAvMjAyNTwvdGQ+PHRkIH P2tPuhCWKm lYDeYAmgKy4dvNvwuKvhRG 7aLAQedtblOXIdhD9iVCTz cEEwdTyrMH6aGUXubfusk4 42YkEkILD5 IKUatYFbF5CkfF4vNjQjXX YhZXVcR1DrfZHnDJbjD408 MNnrDbM0LGBqyxNzB0XmHS FsaWduOiB0 k8C7Oq2Vx5HjkifgL1YbmE JpAaRdTggvIVx4C9GkBknf dHI+NM69KSWrHW99GUx9IC Z7uNypQDet JMAhT3RxqR2wVgDyHZExFY RkOyc+PHRhYmxlIHdpZHRo RUxfTMAjQrZpbCzkME9vCn 9yZGVyLWNv dVdydIXaDrCug6wfOJGiRN jcOU1kgNyhA9ExaUF7PXSu m6j2Ig76S09oY6HukOM+PG HkqXT0xMJ5 yA6sXdAyDsI9QLlkE673Bs BaxRIzRjqjq0yxe4xvpRb3 HmL4YTEcdiAscSoiMDO1h5 FxTs31X01i IHdpZHRoPSIxNSUiIHZhbG pbud3huU9wQv8+PGNvbCB3 yIL0xZ0aMtYcCvQ8GIutU0 49InRvcCIv Rprnn1mky1fysAq5GjEoOH QuvjFyfRnoQNO4a0NuNy96 X8RxyQued3IuZjf4kh12oW Zyb9W0fAI3 J8BlFLWnwxonkPOveMbqSW 2mVLRvnrelWZHoaY6fOLDj R9w8BlYxOwU3NRaeD6Akxi C5XVBtiLDo FYEgbJCHdJ4bbilaa5wqvl aqBeBgVMXyYMd3ILr9IMTb vJpxZvMaAJA3AyZ7MWO2uH BpkM9iuEas wehecS8zWhs+OMT0rIAtcU FVIO5xXrlcqCC+PHRkIHN0 hUefEHkqYJLasA2iXIFxD3 t4TdPaXoU1 HIacZ1RtwdA4YNKgaFIbHY DclKJTmK0kparrm9kehiej TeWrTWFzURb9FLq9SJDqxD duOiBsZWZ0 ImK8NCL2fIBzlE5oiTffcs oosX5sHdi+QmlydGggRGF0 DOf9Y8KtShx3WKKerCitTP 0ncGFkZGlu Jv4asAmvgDimJA7oTNHafr cdk318ShOhb7ynFOKkfXVi NJqwXXY8U32jl9F0EEAlSW CtBDY5oCD7 sA9rmTrarenngGNhqGoncv LiyXcuBEibHMtuB313FWCf mIzdQyAmRLl4V7LoFau0EC ZiqVssBV9u bNMnBPdnHh6puPeqzDmoRR 0iDKKtqbqfn506XkNdz6tr ZERaoZOzDQulRZM3F76et5 A4YELaQLDd BWN4uWP8dH2wyPosdgxdmN VmdDsgdmVydGljYWwtYWxp D415TOXnxHibYxCcxFf7T4 ExZcc6LQIc dBtsKV6rfTQfMQbhVi3ipY lztCvxTD0lPJMjbzpmn106 GeCxi2tqEQSdfWGuTExjDM P6B02bp2W0 FBKiKCLaCZL3rDY9qN8urR lnbjogbGVmdDsgdmVydGlj PAkoWPwmV138YDTvgIkoWv BhdGllbnQg LExmXMd7N2JjTjtnxSD+PC 71YFEiQE78pMKovHIyw3xp rBk2QkOaKBYcMTO6pLenYZ xmq1MvRBZx W49rkBGix7W5UKTfiKtxyZ BhIjTiwCY2mH2uXZgeeogj r8cjtrfdQmfop0tlyc18sC 82O99aGDzv ZHRoPSIzMCUiIHZhbGlnbj 9dsC2dZk3+PHEqhYT8eOL7 iH9dYALkUpE4HZnzZ372Td RvcCIvPjxj y8uye4rexUa5SwC2IAIbnk TsrWvqNXL2m6PaHm34M34j IHdpZHRoPSIyMCUiIHZhbG zevx7wyE1d Ii8+BQBkoZP7cCI8uR4qHr IhRdJ0EEtmP122CeCcyOSb CuxrD12nO1BdyOH+PHRyPj t8WSCpxTjl WQ8uoSUcMGagLr3xTIX1Sh ByFfNoQPghJ9PzYTSmivjc ajipbIA9BKJmSNHoyG16Nu 9udDogMTBw jNOSaM6lmacga8xsxxcgQp LuBZAwBCl5AOy7FEPdqYsk BkPgKIM6XgR6GUX3sSMpxY 1hbGlnbjog eM3fO0CgOOEibfppTa11gY 5hLlCbFdZ4UYpsTac+U0VE MB8LEofvF6TEVZXEBEOEG2 FSRDwvdGQ+ DSJvDML1lXcwFRctKMVuqX 3zOOWbU7d3RwKmAhT7VWjk H0RqOOFzwexyFz70lM7oNx CfJxQ8EWfv D4SdpaG4UARbbEZhQXbaNK U7O10cj0D6EVFlDKZxGYG3 aCK9nT9vwSfcjunbhJSgvH sgdmVydGlj WBmsRFcrO350PXXitBmvNu DwFvYgQjM5MqJ6D7TlVft0 YMYrwWjrNA9dwFNtVNbbUx 1yaWdodDog JV0hWVMjdhfhHAOftM3zHC VnmMYlySrcZL7dXXPbwrhp n532ZwHgRFC2EKNvaDMyX3 DsbL1oOyXr BWRkJOUaL5AtaCBmDIveZ0 74BLmlWyO3ZXYfaiHeO8Mb XHVpsFddPgE3t9I4Yd10UX BZZWFyczwv dGQ+BXQwFND6eQumQUguAT GxsT2pGHEwA8a9MbXbQdL7 YHmaD8ElQWPymnqiIj33lY 7jKvTjVvC8 NDmuO8PitdB3NHRugEAyFO foNFA1K64qn8X5NPXmWZBs SEO0jGL1zW3qlTuuasibzS VmdDsgdmVy vMjeLIrqGKloM333CCSvcX dtGa1AIZI7B1SmAso3BUSg mXwkDD7acCUgCIaeTz3mcV krnOdaJY0m QUNhcbvtBYQbmO3hZKYmyH AjnTgwKQ3bGVIxfbipy893 UmUpSXD8XUWswVLtH0FvdE 9yOiAjMDAw OJWpD1MfgWGnPRzuX282RR ugYrX3NSExajNlE0XfNTKg vXcaRqP9s0F1Fi2HQMzhmA Q+IA52kw34 Y6GyNflrMzn3PTRjLAP2jU O4jK8sPRQmDUoct5U8cWV2 Q8XwmkSbmj1iv4erPSZuDH hdD20dcFSw f8E4JAIwtHY1NDKnlStfOr EulO76Evp+PDYpoXgdo0Ci Kdouw5nbk6sueMd5SyGbOA IgdmFsaWdu CUF0l4LjXl84Y30mSDxpVW WdMBVhHUDuEJXouZuzbx9i uM1cNm6+OCBpsFI7nPB6kY 8nDbZrKeX7 TTbmT695MuKmeVFkYvfay8 fgv8ninRa5XyBeNTQgiuIt fDljKJQ0q5QeYz06G2YnvX gof7TmRtc4 pp17gJCxv5K3nLA5T7MlCI FrprerfQQfoGvlBH0zEYYt okvhUTIvhF7cZIIeO9e5Vg LpDeR5BSxe A2BnriL2PDMbaYOpXSRllJ EWsA0pzfvog9fyscfsZyNc NDIdOGr6KMy3LDOyoBxyZp BiZVE0GiX5 VAS5sWZfhN6jwVaplfmldX 9wOyc+INc5l2cxoMOoJN3l sGD4LO84RM56oXBtc5O8vL N3J3NgXBMd ieaopctobIO3LNOfAGHacI 69Ma9bvMwyKh3rGRNuSMD2 DLJsnDPvH0AdsK1vXhTsDK KfYCQsO5Hb tXEmBSnvT081FFqjFeE6JP GjtyJdK4HxJKIdeLpjStM4 n1F6Mg2QZW39LV69MV53vI Xkn6Z2vAS0 C2YqZEKrnskvpoyevVI2FO XwGNShxW12Ol2uaYlvRw5r SQDqUZM4FODreRTqA1UqnN 9yOiAjMDAw OGJvN5HtcDCiCBynZ249PF guZwD9RINjllOyU8RqXITv mEzxUgI4c3M7Am7MCj23RZ 08AA02gMGf z4V8vOT2R9BiHSGkfslziz umnFY3EYByFOLwzU10Co7y dWbdXf7hXPAfJQI9SIHpzT QvJ4IqyN6j GdJhAVBbCULbW0XwpMDwPU ngJ767BCflSoF0JHCewiEo R0TjASRvpHsoIgJ0o4Y5Zb 2JQVxvedk9 B2DiCcirtCE+MM27FEVbGC 81gQHprMJcs3srkHi4FxSf EBAxDMB4zBfoVIssg5WfOB AiU24ifAZl c2U (more content not included)... [facility] Reminder Messageson 11-20-19 25 Reminder Messages - From: MILAN NAILS DO To: [facility] Sent: 11/19/2024 07:59:43 EST ! Show up: 11/19/2024 07:59:43 EST Subject: Results Follow Up Actions: Call the patient with result(s) Due Date/Time: 11/20/2024 07:59:00 EST Reminder Comments: cysts seen in both maxillary sinuses. suggest ent referral Results: Date Result Type Result Name 11/16/2024 9:[address] Sinus w/o Contrast Order placed [facility] Outside Recordson 11-08-2024 Outside Records [id number]#1.0 0OTGTIFF [facility] 08-09-2024 Outside Records [id number]#1. 00OTGTIFF [facility] CBC AND AUTO DIFFon 07-27-20 24 ABSOLUTE BASOPHIL 0.1 X10E9/L Normal 0.0-0.2 [facility] Comment on above: Performed By: #### C JAVIER, [facility], 3040-3 #### [facility] ([id number]) [address] [place] [address], [place] [address] ABSOLUTE NEUTROPHIL 5.7 X10E9/L Normal 1.5-6.6 [facility] Comment on above: Performed By: #### C ANTONIETTA HERRERA, 3039-11 #### [facility] ([id number]) [address] [place] [address] 14746 Basophils/100 WBC (Bld) 0.6 % Normal [facility] Comment on above: Performed By: #### Yousif HERRERA CMP, 3039-11 #### [facility] ([id number]) [address] [place] [address] 32937 Eosinophils (Bld) [#/Vol] 0.2 10*3/uL Normal 0.0-0.4 [facility] Comment on above: Performed By: #### Yousif HERRERA CMP, 3039-11 #### [facility] ([id number]) [address] [place] [address] 80475 Eosinophils/100 WBC (Bld) 2.4 % Normal [facility] Comment on above: Performed By: #### Yousif HERRERA CMP, 3039-11 #### [facility] ([id number]) [address] [place] [address] 71463 Erythrocyte distribution width (RBC) [Ratio] 12.8 % Normal 11.5-15.0 [facility] Comment on above: Performed By: #### Yousif HERRERA CMP, 3039-11 #### [facility] ([id number]) [address] [place] [address] 06018 Hematocrit (Bld) [Volume fraction] 40.2 % Normal 39-49 [facility] Comment on above: Performed By: #### Yousif HERRERA CMP, 3039-11 #### [facility] ([id number]) [address] [place] [address] 78974 Hemoglobin (Bld) [Mass/Vol] 13.4 g/dL Normal 13.0-17.0 [facility] Comment on above: Performed By: #### Yousif HERRERA CMP, 3 #### [facility] ([id number]) [address] [place] [address] 08079 Lymphocytes (Bld) [#/Vol] 2.5 10*3/uL Normal 1.0-3.5 [facility] Comment on above: Performed By: #### Yousif HERRERA CMP, 3039-3 #### [facility] ([id number]) [address] [place] [address] 71726 Lymphocytes/100 WBC (Bld) 26.9 % Normal [facility] Comment on above: Performed By: #### Yousif HERRERA CMP, 3 #### [facility] ([id number]) [address] [place] [address] 16678 MCH (RBC) [Entitic mass] 28.9 pg Normal 27-34 [facility] Comment on above: Performed By: #### Yousif HERRERA CMP, 3 #### [facility] ([id number]) [address] [place] [address] 95492 MCHC (RBC) [Mass/Vol] 33.4 g/dL Normal 32-36 [facility] Comment on above: Performed By: #### Yousif HERRERA [facility], 3 #### [facility] ([id number]) [address] [place] [address] 11615 MCV (RBC) [Entitic vol] 87 fL Normal 80-100 [facility] Comment on above: Performed By: #### Yousif HERRERA CMP, 3 #### [facility] ([id number]) [address] [place] [address] 01177 Monocytes (Bld) [#/Vol] 0.9 10*3/uL Normal 0-0.9 [facility] Comment on above: Performed By: #### Yousif HERRERA CMP, 3039-3 #### [facility] ([id number]) [address] [place] [address] 26132 Monocytes/100 WBC (Bld) 9.2 % Normal [facility] Comment on above: Performed By: #### Yousif HERRERA CMP, 3040-3 #### [facility] ([id number]) [address] [place] [address] 89853 Neutrophils/100 WBC (Bld) 60.9 % Normal [facility] Comment on above: Performed By: #### Yousif HERRERA CMP, 3039-3 #### [facility] ([id number]) [address] [place] [address] 13744 Platelet mean volume (Bld) [Entitic vol] 8.7 fL Normal 7-12 [facility] Comment on above: Performed By: #### Yousif HERRERA CMP, 0-3 #### [facility] ([id number]) [address] [place] [address] 02285 Platelets (Bld) [#/Vol] 351 10*3/uL Normal 150-450 [facility] Comment on above: Performed By: #### Yousif HERRERA CMP, 3039-3 #### [facility] ([id number]) [address] [place] [address] 56270 RBC COUNT 4.64 X10E12/L Normal 4.10-5.70 [facility] Comment on above: Performed By: #### Yousif HERRERA CMP, 0-3 #### [facility] ([id number]) [address] [place] [address] 17400 WBC (Bld) [#/Vol] 9.3 10*3/uL Normal 4.0-11.0 [facility] Comment on above: Performed By: #### Yousif HERRERA CMP, 3039-3 #### [facility] ([id number]) [address] [place] [address] 23442 COMPREHENSIVE METABOLIC PANE Brian 07-27-2024 Albumin [Mass/Vol] 3.8 g/dL Normal 3.2-5.3 [facility] Comment on above: Performed By: #### C BCA, CMP, 3039-3 #### [facility] ([id number]) [address] [place] [address] 15434 ALP [Catalytic activity/Vol] 53 U/L Normal 39-130 [facility] Comment on above: Performed By: #### C BCA, CMP, 3039-3 #### [facility] ([id number]) [address] [place] [address] 19108 ALT [Catalytic activity/Vol] 16 U/L Normal 0-40 [facility] Comment on above: Performed By: #### C BCA, CMP, 3039-3 #### [facility] ([id number]) [address] [place] [address] 19922 Anion gap [Moles/Vol] 9 mmol/L Normal 5-15 [facility] Comment on above: Performed By: #### C BCA, CMP, 3039-3 #### [facility] ([id number]) [address] [place] [address] 16689 AST [Catalytic activity/Vol] 15 U/L Normal 0-41 [facility] Comment on above: Performed By: #### C BCA, CMP, 3039-3 #### [facility] ([id number]) [address] [place] [address] 22159 Bilirubin [Mass/Vol] 1.0 mg/dL Normal 0.3-1.2 [facility] Comment on above: Performed By: #### C BCA, CMP, 3039-3 #### [facility] ([id number]) [address] [place] [address] 86429 Calcium [Mass/Vol] 8.8 mg/dL Normal 8.5-10.5 [facility] Comment on above: Performed By: #### C BCA, CMP, 3039-3 #### [facility] ([id number]) [address] [place] [address] 59859 Chloride [Moles/Vol] 106 mmol/L Normal 98-109 [facility] Comment on above: Performed By: #### C ANTONIETTA HERRERA, 3040-3 #### [facility] ([id number]) [address] [place] [address] 11360 CO2 [Moles/Vol] 25 mmol/L Normal 22-32 [facility] Comment on above: Performed By: #### C ANTONIETTA HERRERA, 3039-3 #### [facility] ([id number]) [address] [place] [address] 30200 Creatinine [Mass/Vol] 0.83 mg/dL Normal 0.70-1.20 [facility] Comment on above: Result Comment: METH OD TRACEABLE TO IDMS STANDARD Performed By: #### Yousif HERRERA CMP, 3 #### [facility] ([id number]) [address] [place] [address] 62145 eGFR (CKD-EPI) NON-RACE DEPENDENT >90 Normal >59 [facility] Comment on above: Result Comment: Reported eGFR is based on the CKD-EPI 1 equation that does not use a race coefficient. Performed By: #### Yousif HERRERA CMP, 3040-3 #### [facility] ([id number]) [address] [place] [address] 02775 Glucose [Mass/Vol] 103 mg/dL High 65-99 [facility] Comment on above: Performed By: #### Yousif HERRERA CMP, 3039-3 #### [facility] ([id number]) [address] [place] [address] 91042 Potassium [Moles/Vol] 4.3 mmol/L Normal 3.5-5.0 [facility] Comment on above: Performed By: #### Yousif HERRERA CMP, 3039-3 #### [facility] ([id number]) [address] [place] [address] 63470 Protein [Mass/Vol] 6.3 g/dL Normal 6.0-8.0 [facility] Comment on above: Performed By: #### C JAVIER, CMP, 0-3 #### [facility] ([id number]) [address] [place] [address] 40284 Sodium [Moles/Vol] 140 mmol/L Normal 134-146 [facility] Comment on above: Performed By: #### C BCA, CMP, 3039-3 #### [facility] ([id number]) [address] [place] [address] 90722 Urea nitrogen [Mass/Vol] 5 mg/dL Normal 5-23 [facility] Comment on above: Performed By: #### Yousif HERRERA, CMP, 3039-3 #### [facility] ([id number]) [address] [place] [address] 50732 MAGNESIUMon 07-27-2024 Magnesium [Mass/Vol] 2.1 mg/dL Normal 1.8-2.6 [facility] Comment on above: Performed By: #### C BCA, CMP, 3039-3 #### [facility] ([id number]) [address] [place] [address] 18744 CBC AND AUTO DIFFon 07-26-20 ABSOLUTE BASOPHIL 0.0 X10E9/L Normal 0.0-0.2 [facility] Comment on above: Performed By: #### C BCA, CMP, 0-3 #### [facility] ([id number]) [address] [place] [address] 43757 ABSOLUTE NEUTROPHIL 5.6 X10E9/L Normal 1.5-6.6 [facility] Comment on above: Performed By: #### C BCA, CMP, 0-3 #### [facility] ([id number]) [address] [place] [address] 20597 Basophils/100 WBC (Bld) 0.5 % Normal [facility] Comment on above: Performed By: #### Yousif HERRERA CMP, 3 #### [facility] ([id number]) [address] [place] [address] 09600 Eosinophils (Bld) [#/Vol] 0.3 10*3/uL Normal 0.0-0.4 [facility] Comment on above: Performed By: #### Yousif HERRERA CMP, 3039-11 #### [facility] ([id number]) [address] [place] [address] 25607 Eosinophils/100 WBC (Bld) 3.7 % Normal [facility] Comment on above: Performed By: #### Yousif HERRERA CMP, 3039-11 #### [facility] ([id number]) [address] [place] [address] 87419 Erythrocyte distribution width (RBC) [Ratio] 12.7 % Normal 11.5-15.0 [facility] Comment on above: Performed By: #### Yousif HERRERA CMP, 3039-11 #### [facility] ([id number]) [address] [place] [address] 55392 Hematocrit (Bld) [Volume fraction] 41.7 % Normal 39-49 [facility] Comment on above: Performed By: #### Yousif HERRERA CMP, 3039-11 #### [facility] ([id number]) [address] [place] [address] 89702 Hemoglobin (Bld) [Mass/Vol] 14.4 g/dL Normal 13.0-17.0 [facility] Comment on above: Performed By: #### Yousif HERRERA CMP, 3039-11 #### [facility] ([id number]) [address] [place] [address] 16176 Lymphocytes (Bld) [#/Vol] 2.2 10*3/uL Normal 1.0-3.5 [facility] Comment on above: Performed By: #### Yousif HERRERA CMP, 3039-3 #### [facility] ([id number]) [address] [place] [address] 60399 Lymphocytes/100 WBC (Bld) 25.4 % Normal [facility] Comment on above: Performed By: #### Yousif HERRERA CMP, 3 #### [facility] ([id number]) [address] [place] [address] 46523 MCH (RBC) [Entitic mass] 29.7 pg Normal 27-34 [facility] Comment on above: Performed By: #### Yousif HERRERA CMP, 3039-11 #### [facility] ([id number]) [address] [place] [address] 31485 MCHC (RBC) [Mass/Vol] 34.5 g/dL Normal 32-36 [facility] Comment on above: Performed By: #### Yousif HERRERA CMP, 3039-11 #### [facility] ([id number]) [address] [place] [address] 24554 MCV (RBC) [Entitic vol] 86 fL Normal 80-100 [facility] Comment on above: Performed By: #### Yousif HERRERA CMP, 3039-11 #### [facility] ([id number]) [address] [place] [address] 05223 Monocytes (Bld) [#/Vol] 0.7 10*3/uL Normal 0-0.9 [facility] Comment on above: Performed By: #### Yousif HERRERA CMP, 3 #### [facility] ([id number]) [address] [place] [address] 51584 Monocytes/100 WBC (Bld) 7.4 % Normal [facility] Comment on above: Performed By: #### Yousif HERRERA CMP, 3 #### [facility] ([id number]) [address] [place] [address] 61738 Neutrophils/100 WBC (Bld) 63.0 % Normal [facility] Comment on above: Performed By: #### Yousif HERRERA CMP, 3039-3 #### [facility] ([id number]) [address] [place] [address] 22727 Platelet mean volume (Bld) [Entitic vol] 8.6 fL Normal 7-12 [facility] Comment on above: Performed By: #### Yousif HERRERA, CMP, 3039-3 #### [facility] ([id number]) [address] [place] [address] 22647 Platelets (Bld) [#/Vol] 345 10*3/uL Normal 150-450 [facility] Comment on above: Performed By: #### Yousif HERRERA, CMP, 3039-3 #### [facility] ([id number]) [address] [place] [address] 61612 RBC COUNT 4.84 X10E12/L Normal 4.10-5.70 [facility] Comment on above: Performed By: #### Yousif HERRERA, CMP, 3 #### [facility] ([id number]) [address] [place] [address] 23253 WBC (Bld) [#/Vol] 8.8 10*3/uL Normal 4.0-11.0 [facility] Comment on above: Performed By: #### Yousif BCA, CMP, 3039-3 #### [facility] ([id number]) [address] [place] [address] 32424 COMPREHENSIVE METABOLIC PANE Brian 07-26-2024 Albumin [Mass/Vol] 3.9 g/dL Normal 3.2-5.3 [facility] Comment on above: Performed By: #### Yousif HERRERA, CMP, 3039-3 #### [facility] ([id number]) [address] [place] [address] 51956 ALP [Catalytic activity/Vol] 57 U/L Normal 39-130 [facility] Comment on above: Performed By: #### C ANTONIETTA HERRERA, 3039-3 #### [facility] ([id number]) [address] [place] [address] 38028 ALT [Catalytic activity/Vol] 21 U/L Normal 0-40 [facility] Comment on above: Performed By: #### C JAVIER, CMP, 3 #### [facility] ([id number]) [address] [place] [address] 15942 Anion gap [Moles/Vol] 9 mmol/L Normal 5-15 [facility] Comment on above: Performed By: #### Yousif HERRERA CMP, 3 #### [facility] ([id number]) [address] [place] [address] 20417 AST [Catalytic activity/Vol] 18 U/L Normal 0-41 [facility] Comment on above: Performed By: #### Yousif HERRERA CMP, 3 #### [facility] ([id number]) [address] [place] [address] 36562 Bilirubin [Mass/Vol] 0.9 mg/dL Normal 0.3-1.2 [facility] Comment on above: Performed By: #### Yousif HERRERA CMP, 3 #### [facility] ([id number]) [address] [place] [address] 57627 Calcium [Mass/Vol] 8.8 mg/dL Normal 8.5-10.5 [facility] Comment on above: Performed By: #### C JAVIER, CMP, 3039-3 #### [facility] ([id number]) [address] [place] [address] 00757 Chloride [Moles/Vol] 106 mmol/L Normal 98-109 [facility] Comment on above: Performed By: #### C ANTONIETTA HERRERA, 3039-3 #### [facility] ([id number]) [address] [place] [address] 68872 CO2 [Moles/Vol] 23 mmol/L Normal 22-32 [facility] Comment on above: Performed By: #### C ANTONIETTA HERRERA, 3039-3 #### [facility] ([id number]) [address] [place] [address] 49039 Creatinine [Mass/Vol] 0.80 mg/dL Normal 0.70-1.20 [facility] Comment on above: Result Comment: METH OD TRACEABLE TO IDMS STANDARD Performed By: #### C ANTONIETTA HERRERA, 3039-11 #### [facility] ([id number]) [address] [place] [address] 92642 eGFR (CKD-EPI) NON-RACE DEPENDENT >90 Normal >59 [facility] Comment on above: Result Comment: Reported eGFR is based on the CKD-EPI 2020 equation that does not use a race coefficient. Performed By: #### C ANTONIETTA HERRERA, 3 #### [facility] ([id number]) [address] [place] [address] 27116 Glucose [Mass/Vol] 83 mg/dL Normal 65-99 [facility] Comment on above: Performed By: #### C ANTONIETTA HERRERA, 3 #### [facility] ([id number]) [address] [place] [address] 38272 Potassium [Moles/Vol] 3.4 mmol/L Low 3.5-5.0 [facility] Comment on above: Performed By: #### C ANTONIETTA HERRERA, 3 #### [facility] ([id number]) [address] [place] [address] 35548 Protein [Mass/Vol] 6.6 g/dL Normal 6.0-8.0 [facility] Comment on above: Performed By: #### C ANTONIETTA HERRERA, 0-3 #### [facility] ([id number]) [address] [place] [address] 43648 Sodium [Moles/Vol] 138 mmol/L Normal 134-146 [facility] Comment on above: Performed By: #### Yousif HERRERA CMP, 3039-3 #### [facility] ([id number]) [address] [place] [address] 03579 Urea nitrogen [Mass/Vol] 8 mg/dL Normal 5-23 [facility] Comment on above: Performed By: #### Yousif HERRERA CMP, 3039-3 #### [facility] ([id number]) [address] [place] [address] 46727 MAGNESIUMon 07-26-2024 Magnesium [Mass/Vol] 2.0 mg/dL Normal 1.8-2.6 [facility] Comment on above: Performed By: #### Yousif HERRERA CMP, 3039-3 #### [facility] ([id number]) [address] [place] [address] 92844 POTASSIUMon 07-26-2024 Potassium [Moles/Vol] 3.3 mmol/L Low 3.5-5.0 [facility] Comment on above: Performed By: #### Yousif HERRERA CMP, 3039-3 #### [facility] ([id number]) [address] [place] [address] 55549 Potassium [Moles/Vol] 3.1 mmol/L Low 3.5-5.0 [facility] Comment on above: Performed By: #### Yousif HERRERA CMP, 3039-3 #### [facility] ([id number]) [address] [place] [address] 12922 XR ABDOMEN AP 1 VWon 024 XR [...] Valenzuela MD on 07/26/2024 8:55 AM Normal [facility] CBC AND AUTO DIFFon 07-25-20 ABSOLUTE BASOPHIL 0.1 X10E9/L Normal 0.0-0.2 [facility] Comment on above: Performed By: #### C JAVIER [facility], 00195-2 #### [facility] ([id number]) [address] [place] [address] 98180 ABSOLUTE NEUTROPHIL 4.3 X10E9/L Normal 1.5-6.6 [facility] Comment on above: Performed By: #### Yousif HERRERA [facility], 94540-8 #### [facility] ([id number]) [address] [place] [address] 88243 Basophils/100 WBC (Bld) 0.7 % Normal [facility] Comment on above: Performed By: #### Yousif HERRERA [facility], 71007-8 #### [facility] ([id number]) [address] [place] [address] 98732 Eosinophils (Bld) [#/Vol] 0.4 10*3/uL Normal 0.0-0.4 [facility] Comment on above: Performed By: #### Yousif HERRERA [facility], 46361-1 #### [facility] ([id number]) [address] [place] [address] 91597 Eosinophils/100 WBC (Bld) 4.5 % Normal [facility] Comment on above: Performed By: #### Yousif HERRERA [facility], 45623-2 #### [facility] ([id number]) [address] [place] [address] 93981 Erythrocyte distribution width (RBC) [Ratio] 12.9 % Normal 11.5-15.0 [facility] Comment on above: Performed By: #### C ANTONIETTA HERRERA, #### [facility] ([id number]) [address] [place] [address] 11345 Hematocrit (Bld) [Volume fraction] 40.5 % Normal 39-49 [facility] Comment on above: Performed By: #### Yousif HERRERA CMP, #### [facility] ([id number]) [address] [place] [address] 55591 Hemoglobin (Bld) [Mass/Vol] 13.8 g/dL Normal 13.0-17.0 [facility] Comment on above: Performed By: #### Yousif HERRERA CMP, #### [facility] ([id number]) [address] [place] [address] 56222 Lymphocytes (Bld) [#/Vol] 2.7 10*3/uL Normal 1.0-3.5 [facility] Comment on above: Performed By: #### Yousif HERRERA CMP, #### [facility] ([id number]) [address] [place] [address] 77918 Lymphocytes/100 WBC (Bld) 32.2 % Normal [facility] Comment on above: Performed By: #### Yousif HERRERA CMP, #### [facility] ([id number]) [address] [place] [address] 65287 MCH (RBC) [Entitic mass] 29.5 pg Normal 27-34 [facility] Comment on above: Performed By: #### Yousif HERRERA CMP, #### [facility] ([id number]) [address] [place] [address] 61256 MCHC (RBC) [Mass/Vol] 34.0 g/dL Normal 32-36 [facility] Comment on above: Performed By: #### Yousif HERRERA CMP, #### [facility] ([id number]) [address] [place] [address] 86746 MCV (RBC) [Entitic vol] 87 fL Normal 80-100 [facility] Comment on above: Performed By: #### Yousif HERRERA CMP, 30687-9 #### [facility] ([id number]) [address] [place] [address] 01128 Monocytes (Bld) [#/Vol] 1.0 10*3/uL High 0-0.9 [facility] Comment on above: Performed By: #### Yousif HERRERA CMP, #### [facility] ([id number]) [address] [place] [address] 02161 Monocytes/100 WBC (Bld) 11.8 % Normal [facility] Comment on above: Performed By: #### Yousif HERRERA CMP, #### [facility] ([id number]) [address] [place] [address] 68814 Neutrophils/100 WBC (Bld) 50.8 % Normal [facility] Comment on above: Performed By: #### Yousif HERRERA [facility], #### [facility] ([id number]) [address] [place] [address] 84805 Platelet mean volume (Bld) [Entitic vol] 8.6 fL Normal 7-12 [facility] Comment on above: Performed By: #### Yousif HERRERA CMP, #### [facility] ([id number]) [address] [place] [address] 44316 Platelets (Bld) [#/Vol] 355 10*3/uL Normal 150-450 [facility] Comment on above: Performed By: #### Yousif HERRERA CMP, #### [facility] ([id number]) [address] [place] [address] 56577 RBC COUNT 4.67 X10E12/L Normal 4.10-5.70 [facility] Comment on above: Performed By: #### C JAVIER CMP, 79789-1 #### [facility] ([id number]) [address] [place] [address] 32014 WBC (Bld) [#/Vol] 8.4 10*3/uL Normal 4.0-11.0 [facility] Comment on above: Performed By: #### C JAVIER, CMP, 56938-3 #### [facility] ([id number]) [address] [place] [address] 10426 COMPREHENSIVE METABOLIC PANE Brian 07-25-2024 Albumin [Mass/Vol] 3.7 g/dL Normal 3.2-5.3 [facility] Comment on above: Performed By: #### C JAVIER, CMP, 49450-1 #### [facility] ([id number]) [address] [place] [address] 58580 ALP [Catalytic activity/Vol] 56 U/L Normal 39-130 [facility] Comment on above: Performed By: #### C JAVIER, CMP, 45383-4 #### [facility] ([id number]) [address] [place] [address] 10555 ALT [Catalytic activity/Vol] 21 U/L Normal 0-40 [facility] Comment on above: Performed By: #### C JAVIER CMP, 71268-4 #### [facility] ([id number]) [address] [place] [address] 72171 Anion gap [Moles/Vol] 5 mmol/L Normal 5-15 [facility] Comment on above: Performed By: #### C BCA, CMP, 01388-8 #### [facility] ([id number]) [address] [place] [address] 67081 AST [Catalytic activity/Vol] 16 U/L Normal 0-41 [facility] Comment on above: Performed By: #### C JAVIER [facility], 82388-5 #### [facility] ([id number]) [address] [place] [address] 30128 Bilirubin [Mass/Vol] 0.8 mg/dL Normal 0.3-1.2 [facility] Comment on above: Performed By: #### C JAVIER [facility], #### [facility] ([id number]) [address] [place] [address] 35567 Calcium [Mass/Vol] 8.4 mg/dL Low 8.5-10.5 [facility] Comment on above: Performed By: #### C JAVIER [facility], #### [facility] ([id number]) [address] [place] [address] 83552 Chloride [Moles/Vol] 110 mmol/L High 98-109 [facility] Comment on above: Performed By: #### C JAVIER [facility], 04495-2 #### [facility] ([id number]) [address] [place] [address] 99948 CO2 [Moles/Vol] 23 mmol/L Normal 22-32 [facility] Comment on above: Performed By: #### Yousif HERRERA [facility], 08989-6 #### [facility] ([id number]) [address] [place] [address] 24349 Creatinine [Mass/Vol] 0.94 mg/dL Normal 0.70-1.20 [facility] Comment on above: Result Comment: METH OD TRACEABLE TO IDMS STANDARD Performed By: #### C JAVIER [facility], 30969-5 #### [facility] ([id number]) [address] [place] [address] 88993 eGFR (CKD-EPI) NON-RACE DEPENDENT >90 Normal >59 [facility] Comment on above: Result Comment: Reported eGFR is based on the CKD-EPI 2020 equation that does not use a race coefficient. Performed By: #### C BCA, CMP, 35112-7 #### [facility] ([id number]) [address] [place] [address] 38102 Glucose [Mass/Vol] 102 mg/dL High 65-99 [facility] Comment on above: Performed By: #### C BCA, [facility], 70194-5 #### [facility] ([id number]) [address] [place] [address] 73469 Potassium [Moles/Vol] 3.6 mmol/L Normal 3.5-5.0 [facility] Comment on above: Performed By: #### C BCA, [facility], 28772-6 #### [facility] ([id number]) [address] [place] [address] 79574 Protein [Mass/Vol] 6.3 g/dL Normal 6.0-8.0 [facility] Comment on above: Performed By: #### C BCA, [facility], 35128-9 #### [facility] ([id number]) [address] [place] [address] 73905 Sodium [Moles/Vol] 138 mmol/L Normal 134-146 [facility] Comment on above: Performed By: #### C BCA, [facility], 70391-8 #### [facility] ([id number]) [address] [place] [address] 20880 Urea nitrogen [Mass/Vol] 12 mg/dL Normal 5-23 [facility] Comment on above: Performed By: #### C BCA, [facility], 75682-0 #### [facility] ([id number]) [address] [place] [address] ABDOMEN AND PELVIS W CONT on [...] Findings Committee. J Am Ag Radiol. 2017 Apr;14(8):0155-[address] scans at this facility use dose modulation, iterative reconstruction, and/or weight based dosing when appropriate to reduce radiation dose to as low as reasonably achievable. Finalized by Bam Camejo MD on 07/25/2024 10:48 AM Normal [facility] Glucose Glucometer (BldC) [M ass/Vol]on 07-25-2024 Glucose [Mass/Vol] 76 mg/dL Normal 65-99 [facility] MAGNESIUMon 07-25-2024 Magnesium [Mass/Vol] 1.9 mg/dL Normal 1.8-2.6 [facility] Comment on above: Performed By: #### C ANTONIETTA HERRERA, 43333-1 #### [facility] ([id number]) [address] [place] [address], [place] [address] XR CHEST 1 VWon 07-25-2024 XR CHEST [...] extends below the diaphragm and off the nhuzm-ml-cgft. IMPRESSION: 1. No acute cardiopulmonary disease. 2. Moderate-sized hiatal hernia. There is a gastric tube with the tip extending below the diaphragm and off the birid-dv-lint. Finalized by Francisco Bangura MD on 07/25/2024 5:24 PM Normal [facility] XR CHEST 1 VW XR CHEST [...] Carlisle MD on 07/25/2024 3:36 PM Normal [facility] CBC AND AUTO DIFFon 07-24-20 ABSOLUTE BASOPHIL 0.1 X10E9/L Normal 0.0-0.2 [facility] Comment on above: Performed By: #### C ANTONIETTA HERRERA, 3039-3 #### [facility] ([id number]) [address] [place] [address] 14620 ABSOLUTE NEUTROPHIL 7.3 X10E9/L High 1.5-6.6 [facility] Comment on above: Performed By: #### C JAVIER, CMP, 3039-3 #### [facility] ([id number]) [address] [place] [address] 15041 Basophils/100 WBC (Bld) 1.0 % Normal [facility] Comment on above: Performed By: #### Yousif HERRERA CMP, 3 #### [facility] ([id number]) [address] [place] [address] 70846 Eosinophils (Bld) [#/Vol] 0.3 10*3/uL Normal 0.0-0.4 [facility] Comment on above: Performed By: #### Yousif HERRERA [facility], 3 #### [facility] ([id number]) [address] [place] [address] 76139 Eosinophils/100 WBC (Bld) 2.5 % Normal [facility] Comment on above: Performed By: #### Yousif HERRERA CMP, 3 #### [facility] ([id number]) [address] [place] [address] 05928 Erythrocyte distribution width (RBC) [Ratio] 13.0 % Normal 11.5-15.0 [facility] Comment on above: Performed By: #### Yousif HERRERA, CMP, 3039-11 #### [facility] ([id number]) [address] [place] [address] 17545 Hematocrit (Bld) [Volume fraction] 47.6 % Normal 39-49 [facility] Comment on above: Performed By: #### Yousif HERRERA, CMP, 3039-3 #### [facility] ([id number]) [address] [place] [address] [place] [address] Hemoglobin (Bld) [Mass/Vol] 16.2 g/dL Normal 13.0-17.0 [facility] Comment on above: Performed By: #### Yousif HERRERA CMP, 3039-3 #### [facility] ([id number]) [address] [place] [address] 82781 Lymphocytes (Bld) [#/Vol] 2.1 10*3/uL Normal 1.0-3.5 [facility] Comment on above: Performed By: #### Yousif HERRERA [facility], 3039-11 #### [facility] ([id number]) [address] [place] [address] 70335 Lymphocytes/100 WBC (Bld) 19.2 % Normal [facility] Comment on above: Performed By: #### Yousif HERRERA CMP, 3039-11 #### [facility] ([id number]) [address] [place] [address] 66379 MCH (RBC) [Entitic mass] 29.4 pg Normal 27-34 [facility] Comment on above: Performed By: #### Yousif HERRERA [facility], 3039-11 #### [facility] ([id number]) [address] [place] [address] 46792 MCHC (RBC) [Mass/Vol] 34.0 g/dL Normal 32-36 [facility] Comment on above: Performed By: #### Yousif HERRERA CMP, 3039-11 #### [facility] ([id number]) [address] [place] [address] 82816 MCV (RBC) [Entitic vol] 86 fL Normal 80-100 [facility] Comment on above: Performed By: #### Yousif HERRERA CMP, 3039-11 #### [facility] ([id number]) [address] [place] [address] 62600 Monocytes (Bld) [#/Vol] 1.3 10*3/uL High 0-0.9 [facility] Comment on above: Performed By: #### Yousif HERRERA CMP, 3039-3 #### [facility] ([id number]) [address] [place] [address] 10150 Monocytes/100 WBC (Bld) 11.6 % Normal [facility] Comment on above: Performed By: #### Yousif HERRERA CMP, 3039-3 #### [facility] ([id number]) [address] [place] [address] 93138 Neutrophils/100 WBC (Bld) 65.7 % Normal [facility] Comment on above: Performed By: #### Yousif HERRERA CMP, 3 #### [facility] ([id number]) [address] [place] [address] 69127 Platelet mean volume (Bld) [Entitic vol] 8.4 fL Normal 7-12 [facility] Comment on above: Performed By: #### Yousif HERRERA CMP, 3039-3 #### [facility] ([id number]) [address] [place] [address] 33475 Platelets (Bld) [#/Vol] 470 10*3/uL High 150-450 [facility] Comment on above: Performed By: #### Yousif HERRERA CMP, 3 #### [facility] ([id number]) [address] [place] [address] 73796 RBC COUNT 5.52 X10E12/L Normal 4.10-5.70 [facility] Comment on above: Performed By: #### Yousif HERRERA CMP, 3039-3 #### [facility] ([id number]) [address] [place] [address] 76796 WBC (Bld) [#/Vol] 11.1 10*3/uL High 4.0-11.0 [facility] Comment on above: Performed By: #### Yousif HERRERA CMP, 3039-3 #### [facility] ([id number]) [address] [place] [address] 69226 COMPREHENSIVE METABOLIC PANE Brian 07-24-2024 Albumin [Mass/Vol] 4.3 g/dL Normal 3.2-5.3 [facility] Comment on above: Performed By: #### C BCA, CMP, 0-3 #### [facility] ([id number]) [address] [place] [address] 11333 ALP [Catalytic activity/Vol] 63 U/L Normal 39-130 [facility] Comment on above: Performed By: #### C BCA, CMP, 3039-3 #### [facility] ([id number]) [address] [place] [address] 74235 ALT [Catalytic activity/Vol] 25 U/L Normal 0-40 [facility] Comment on above: Performed By: #### C BCA, CMP, 3039-3 #### [facility] ([id number]) [address] [place] [address] 63262 Anion gap [Moles/Vol] 9 mmol/L Normal 5-15 [facility] Comment on above: Performed By: #### C BCA, CMP, 0-3 #### [facility] ([id number]) [address] [place] [address] 91538 AST [Catalytic activity/Vol] 23 U/L Normal 0-41 [facility] Comment on above: Performed By: #### C BCA, CMP, 0-3 #### [facility] ([id number]) [address] [place] [address] 04311 Bilirubin [Mass/Vol] 1.4 mg/dL High 0.3-1.2 [facility] Comment on above: Performed By: #### C BCA, CMP, 0-3 #### [facility] ([id number]) [address] [place] [address] 41594 Calcium [Mass/Vol] 10.1 mg/dL Normal 8.5-10.5 [facility] Comment on above: Performed By: #### C ANTONIETTA HERRERA, 3039-3 #### [facility] ([id number]) [address] [place] [address] 54300 Chloride [Moles/Vol] 104 mmol/L Normal 98-109 [facility] Comment on above: Performed By: #### C ANTONIETTA HERRERA, 3 #### [facility] ([id number]) [address] [place] [address] 93019 CO2 [Moles/Vol] 22 mmol/L Normal 22-32 [facility] Comment on above: Performed By: #### Yousif HERRERA CMP, 3 #### [facility] ([id number]) [address] [place] [address] 95091 Creatinine [Mass/Vol] 1.05 mg/dL Normal 0.70-1.20 [facility] Comment on above: Result Comment: METH OD TRACEABLE TO IDMS STANDARD Performed By: #### C ANTONIETTA HERRERA, 3039-3 #### [facility] ([id number]) [address] [place] [address] 22618 GFR/1.73 sq M.predicted among non-blacks MDRD (S/P/Bld) [Vol rate/Area] 87 mL/min/{1.73_m2} Normal >59 [facility] Comment on above: Result Comment: Reported eGFR is based on the CKD-EPI 2020 equation that does not use a race coefficient. Performed By: #### C ANTONIETTA HERRERA, 0-3 #### [facility] ([id number]) [address] [place] [address] 99681 Glucose [Mass/Vol] 113 mg/dL High 65-99 [facility] Comment on above: Performed By: #### Yousif HERRERA CMP, 3039-3 #### [facility] ([id number]) [address] [place] [address] 91104 Potassium [Moles/Vol] 3.7 mmol/L Normal 3.5-5.0 [facility] Comment on above: Performed By: #### C BCA, CMP, 3040-3 #### [facility] ([id number]) [address] [place] [address] 04028 Protein [Mass/Vol] 7.9 g/dL Normal 6.0-8.0 [facility] Comment on above: Performed By: #### C BCA CMP, 3040-3 #### [facility] ([id number]) [address] [place] [address] 08599 Sodium [Moles/Vol] 135 mmol/L Normal 134-146 [facility] Comment on above: Performed By: #### C BCA, CMP, 3040-3 #### [facility] ([id number]) [address] [place] [address] 19154 Urea nitrogen [Mass/Vol] 13 mg/dL Normal 5-23 [facility] Comment on above: Performed By: #### Yousif BCA, [facility], 3040-3 #### [facility] ([id number]) [address] [place] [address] ABDOMEN AND PELVIS W CONT on [...] exclude pheochromocytoma. Recommend no further imaging evaluation. [facility] HospitalOscar NUNN, et al. Management of Incidental Adrenal Masses: A White Paper of the ACR Incidental Findings Committee. J Am Ag Radiol. 2017 Apr;14(8):4221-6940. THIS REPORT CONTAINS A SIGNIFICANT RESULT AND/OR RECOMMENDATION, WHICH REQUIRES THE ATTENTION OF THE LICENSED CAREGIVER RESPONSIBLE FOR THIS PATIENT. THEREFORE, I SPECIFICALLY DESIGNATED THIS REPORT TO BE TELEPHONED BY THE RADIOLOGY DEPARTMENT. FINDINGS WERE INSTRUCTED TO BE CALLED TO THE CLINICAL SERVICE ON 07/24/2024 4:17 PM Finalized by Daniel Mcallister on 07/24/2024 4:17 PM Normal [facility] LIPASEon 07-24-2024 Lipase [Catalytic activity/Vol] 22 U/L Normal 17-40 [facility] Comment on above: Performed By: #### C ANTONIETTA HERRERA, 3040-3 #### [facility] ([id number]) [address] [place] [address], FIRST FLO[address] 9-10 Nerveson 07-17-2024 [facility] 07-12-2024 Outside Records [id number]#1 .[facility]-2024 Patient Letter [id number]#1.0 [facility]- [facility] 05-03-2024 Outside Records [id number]#1.0 [facility] 04-24-2024 Outside Records [id number]#1.0 [facility] Report on 04-24-2024 Rad - Other Radiology Report [id number]#1.0 [facility] 04-11-2024 Patient Letter [id number]#1.0 [facility] 04-05-2024 Outside Records [id number]#1.00 [facility] [id number]#1.00 [facility] Report on 04-02-2024 Rad - Other Radiology Report [id number]#1.0 0OTGTIFF Normal [facility] LUMBAR SPINE 6 OR MORE VWSon 01-14-2022 LUMBAR SPINE 6 OR MORE VWS [facility] Department of Radiology [address] [place] [id number] ======== Patient Name: RICCARDO HALE : [...] , Ordering Provider - A JER MSN DIRECTOR OF DIGITAL MARKETING , Exam: LUMBAR SPINE 6 OR MORE [...] radiographically. Electronically signed: Irma York. Transcribed by: [email or web address], User Resident: Electronically Signed by: IRMA YORK @ 01/15/2022 11:40 AM Normal [facility] Comment on above: Order Comment: , ap, lat, flex, ex, obliques, r/o instability or pars defect , Views (X-RAY, LUMBAR SPINE): AP, Lateral, L5-S1 Spot, Obliques, Flexion, Extension , ap, lat, flex, ex, obliques, r/o instability or pars defect , Views (X-RAY, LUMBAR SPINE): AP, Lateral, L5-S1 Spot, Obliques, Flexion, Extension , , , Ordering Provider - Sherice LOPEZ CNP , Vital Signs Date Time Vital Sign Value Performing Clinician Facility 05-13-2025 08:55-0400 Body height 175.26 cm Temi Marshall APRN Work Phone[facility] 05-13-2025 08:55-0400 Body mass index (BMI) [Ratio] 47.8 kg/m2 Temi Marshall APRN Work Phone: [facility] 05-13-2025 08:55-0400 Body temperature 97.5 [degF] Temi Dangelorbacher ACCOUNT MANAGER Work Phone: [facility] 05-13-2025 08:55-0400 Body weight 146.96 kg Temi Dangeloaddis ACCOUNT MANAGER Work Phone: [facility] 05-13-2025 08:55-0400 Diastolic blood pressure 78 mm[Hg] Temi Rolando ACCOUNT MANAGER Work Phone: [facility] 05-13-2025 08:55-0400 Heart rate 69 /min Temi Rolando ACCOUNT MANAGER Work Phone: [facility] 05-13-2025 08:55-0400 SaO2% (BldA) [Mass fraction] 95 % Temi Rolando ACCOUNT MANAGER Work Phone: [facility] 05-13-2025 08:55-0400 Systolic blood pressure 130 mm[Hg] Temi Rolando ACCOUNT MANAGER Work Phone: [facility] 04-17-2025 09:31-0400 Body height 175.26 cm Temi Dangeloaddis ACCOUNT MANAGER Work Phone: [facility] 04-17-2025 09:31-0400 Body mass index (BMI) [Ratio] 49.4 kg/m2 Temi Dangeloaddis ACCOUNT MANAGER Work Phone: [facility] 04-17-2025 09:31-0400 Body temperature 98 [degF] Temi Rolando ACCOUNT MANAGER Work Phone: [facility] 04-17-2025 09:31-0400 Body weight 151.95 kg Temi Dangeloaddis GRACIAN Work Phone: [facility] 04-17-2025 09:31-0400 Diastolic blood pressure 84 mm[Hg] Temi Rolando ACCOUNT MANAGER Work Phone: [facility] 04-17-2025 09:31-0400 Heart rate 86 /min Temi Rolando CHAUDHRY Work Phone: [facility] 04-17-2025 09:31-0400 SaO2% (BldA) [Mass fraction] 94 % Temi Rolando ACCOUNT MANAGER Work Phone: [facility] 04-17-2025 09:31-0400 Systolic blood pressure 132 mm[Hg] Temi Rolando ACCOUNT MANAGER Work Phone: [facility] 03-27-2025 08:41-0400 Body height 175.3 cm Beto Reyes MD Work Phone: [facility] 03-27-2025 08:41-0400 Body mass index (BMI) [Ratio] 47.99 kg/m2 Beto Reyes MD Work Phone: [facility] 03-27-2025 08:41-0400 Body weight 147.42 kg Beto Reyes MD Work Phone: [facility] 03-27-2025 08:41-0400 Diastolic blood pressure 78 mm[Hg] Beto Reyes MD Work Phone: [facility] 03-27-2025 08:41-0400 Heart rate 104 /min Beto Reyes MD Work Phone: [facility] 03-27-2025 08:41-0400 Systolic blood pressure 138 mm[Hg] Beto Reyes MD Work Phone: [facility] 02-20-2025 10:21-0400 Body height 175.3 cm Beto Reyes MD Work Phone: [facility] 02-20-2025 10:21-0400 Body mass index (BMI) [Ratio] 48.29 kg/m2 eBto Reyes MD Work Phone: [facility] 02-20-2025 10:21-0400 Body weight 148.33 kg Beto Reyes MD Work Phone: [facility] 02-20-2025 10:21-0400 Diastolic blood pressure 86 mm[Hg] Beto Reyes MD Work Phone: [facility] [employer] 02-20-2025 10:21-0400 Heart rate 74 /min Beto Reyes MD Work Phone: [facility] [employer] 02-20-2025 10:21-0400 Systolic blood pressure 126 mm[Hg] Beto Reyes MD Work Phone: [facility] [employer] 07-19-2024 10:32-0400 Body height 175.3 cm Pascale Lowe PA Work Phone: [facility] [employer] 07-19-2024 10:32-0400 Body mass index (BMI) [Ratio] 45.63 kg/m2 Pascale Lowe PA Work Phone: [facility] [employer] 07-19-2024 10:32-0400 Body weight 140.16 kg Pascale Lowe PA Work Phone: [facility] [employer] 07-19-2024 10:32-0400 Diastolic blood pressure 86 mm[Hg] Pascale Lowe PA Work Phone: [facility] [employer] 07-19-2024 10:32-0400 Systolic blood pressure 130 mm[Hg] Pascale Lowe PA Work Phone: [facility] [employer] 09-23-2023 10:05-0500 Body height Abbey Robin Other [facility] Other 09-23-2023 10:05-0500 Body mass index (BMI) [Ratio] 44.21 kg/m2 Abbey Robin Other [facility] Other 09-23-2023 10:05-0500 Body temperature 98.6 [degF] Abbey Robin Other [facility] Other 09-23-2023 10:05-0500 Body weight 135.81 kg Abbey Robin Other [facility] Other 09-23-2023 10:05-0500 Diastolic blood pressure 82 mm[Hg] Abbey Robin Other [facility] Other 09-23-2023 10:05-0500 Respiratory rate 18 /min Abbey Robin Other [facility] Other 09-23-2023 10:05-0500 SaO2% (BldA) [Mass fraction] 95 % Abbey Robin Other [facility] Other 09-23-2023 10:05-0500 Systolic blood pressure 152 mm[Hg] Abbey Robin Other [facility] Other 04-15-2023 10:30-0400 Body height Marisol Zelaya Other [facility] Other 04-15-2023 10:30-0400 Body mass index (BMI) [Ratio] 45.33 kg/m2 Marisol Zelaya Other [facility] Other 04-15-2023 10:30-0400 Body temperature 97.6 [degF] Marisol Zelaya Other [facility] Other 04-15-2023 10:30-0400 Body weight 139.26 kg Marisol Zelaya Other [facility] Other 04-15-2023 10:30-0400 Diastolic blood pressure 80 mm[Hg] Marisol Zelaya Other [facility] Other 04-15-2023 10:30-0400 Respiratory rate 18 /min Marisol Zelaya Other [facility] Other 04-15-2023 10:30-0400 SaO2% (BldA) [Mass fraction] 98 % Marisol Zelaya Other [facility] [employer] Other 04-15-2023 10:30-0400 Systolic blood pressure 125 mm[Hg] Marisol Zelaya Other [facility] [employer] Other Encounters Encounter Date Encounter Type Care Provider Facility Start: 05-13-2025 End: 05-13-2025 ambulatory Temi Marshall APRN Work Phone: [facility] Work Phone: Start: 05-13-2025 End: 05-13-2025 Patient encounter procedure Temi Marshall APRN [facility] Work Phone: Start: 05-07-2025 End: 05-08-2025 Refill Beto Reyes MD Work Phone: [facility] [place] [facility] Comment on above: Rhinitis medicamento sa Start: 04-22-2025 End: 04-22-2025 ambulatory Renetta Terrazas MD Facility:[facility] Start: 04-17-2025 End: 04-17-2025 ambulatory Temi Marshall APRN Work Phone: [facility] Work Phone: Start: 04-17-2025 End: 04-17-2025 Patient encounter procedure Temi Marshall APRN [facility] Work Phone: Start: 04-10-2025 Non-patient / Non-visit Belinda eHnson [facility] Work Phone: Start: 03-27-2025 End: 03-27-2025 [...] Available Start: 03-07-2025 End: 03-07-2025 ambulatory MILAN P HOUSE Facility: [facility] Start: 02-21-2025 ambulatory MILAN P HOUSE Facilit y:[facility] Start: 02-20-2025 End: 02-20-2025 Bamboo flowsheet Beto Reyes MD Work Phone: [facility] Start: 02-20-2025 End: 02-20-2025 Bamboo flowsheet Beto Reyes MD Work Phone: [facility] Start: 02-20-2025 End: 02-20-2025 Office outpatient new 45 minutes Beto Reyes MD Work Phone: [facility] Comment on above: Rhinitis medicamento sa (Primary Dx); Bilateral impacted cerumen Start: 02-20-2025 End: 02-21-2025 ambulatory MILAN P HOUSE Facility: [facility] Start: 02-06-2025 End: 02-06-2025 Office outpatient new 30 minutes Blair Gan SLICER MACHINE OPERATOR Work Phone: [facility] Comment on above: Carpal tunnel syndro me of left wrist; Carpal tunnel syndrome of right wrist Start: 02-06-2025 End: 02-06-2025 ambulatory BLAIR GAN Not Available Start: 02-06-2025 End: 02-06-2025 Bamboo flowsheet Blair Gan SLICER MACHINE OPERATOR Work Phone: [facility] Start: 02-06-2025 End: 02-06-2025 Bamboo flowsheet Blair Gan SLICER MACHINE OPERATOR Work Phone: [facility] Start: 02-04-2025 ambulatory DO MILAN P HOUSE Faci lity:[facility] Start: 01-03-2025 End: 01-03-2025 Refill Pascale Souza PA Work Phone: [facility] Comment on above: Chronic bilateral lo w back pain, unspecified whether sciatica present Start: 12-03-2024 End: 12-03-2024 Bamboo flowsheet Pascale Lowe PA Work Phone: [facility] Start: 12-03-2024 End: 12-03-2024 Bamboo flowsheet Pascale Lowe PA Work Phone: [facility] Start: 12-03-2024 End: 12-03-2024 ambulatory PASCALE LOWE Not Available Start: 11-28-2024 End: 12-03-2024 Telephone encounter Carina Eid OT Work Phone: [facility] Comment on above: re: referral for FCE ; re: FCE Start: 11-15-2024 End: 11-15-2024 ambulatory DO MILAN NAILS Facility:[facility] Start: 11-01-2024 End: 11-01-2024 Refill Maurizio Patrick MD Work Phone: [facility] Comment on above: Low back pain, unspe cified back pain laterality, unspecified chronicity, unspecified whether sciatica present Start: 10-02-2024 ambulatory DO MILAN NAILS Faci lity:[facility] Start: 08-09-2024 End: 08-09-2024 ambulatory MILAN NAILS Facility:[facility] Start: 07-24-2024 End: 07-27-2024 Evaluation and management of inpatient MILAN Medina [facility] Start: 07-19-2024 End: 07-19-2024 Office outpatient visit 25 minutes Pascale Souza PA Work Phone: [facility] [place] [facility] Comment on above: Carpal tunnel syndro me on both sides (Primary Dx); Chronic bilateral low back pain, unspecified whether sciatica present; Lumbar disc herniation Start: 07-19-2024 End: 07-19-2024 ambulatory PASCALE LOWE Not Available Start: 07-17-2024 End: 07-17-2024 Bamboo flowsheet Maurizio Patrick MD Work Phone: [facility] Start: 07-17-2024 End: 07-17-2024 Bamboo flowsheet Maurizio Patrick MD Work Phone: [facility] Start: 07-17-2024 End: 07-17-2024 ambulatory MAURIZIO PATRICK Not Available Start: 07-17-2024 End: 07-17-2024 Patient encounter procedure Maurizio Patrick MD Work Phone: [facility] Comment on above: Lumbar radiculopathy (Primary Dx); Low back pain, unspecified back pain laterality, unspecified chronicity, unspecified whether sciatica present Start: 07-02-2024 End: 07-02-2024 ambulatory MILAN P STOCKETT Facility:[facility] Start: 06-28-2024 ambulatory MILAN P STOCKETT Facilit y:[facility] Start: 05-24-2024 End: 05-24-2024 Bamboo flowsheet Maurizio Patrick MD Work Phone: [facility] Start: 05-24-2024 End: 05-24-2024 Bamboo flowsheet Maurizio Patrick MD Work Phone: [facility] Start: 05-24-2024 End: 05-24-2024 Patient encounter procedure Maurizio Patrick MD Work Phone: [facility] Comment on above: Carpal tunnel syndro me on both sides (Primary Dx) Start: 05-24-2024 End: 05-24-2024 ambulatory MAURIZIO PATRICK Not Available Start: 04-18-2024 End: 04-18-2024 ambulatory MILAN P HOUSE Facility:[facility] Start: 04-18-2024 End: 04-18-2024 ambulatory PASCALE LOWE Not Available Start: 04-09-2024 End: 04-09-2024 ambulatory DO MILAN P HOUSE Facility:[facility] Start: 09-23-2023 End: 09-23-2023 ambulatory Abbey Robin Other [facility] Other Start: 09-23-2023 Office outpatient vi sit 15 minutes Abbey Robin [facility] [place] Start: 04-15-2023 End: 04-15-2023 ambulatory Marisol Zelaya Other [facility] Other Start: 04-15-2023 Office outpatient ne w 20 minutes Marisol Zelaya [facility] [place] Start: 02-15-2023 End: 02-16-2023 ambulatory NARENDCONNIE BOURGEOISMIPATHY . Facility:[facility] Start: 02-01-2023 End: 02-01-2023 ambulatory [...] [facility] [address] [place] [phone] Pascale Souza PA [address] [place] [address] [facility] Start: 03-27-2025 End: 03-27-2025 Patient encounter procedure 03/27/2025 8:40 AM EDT Office Visit [facility] [address] [place] [phone] Beto Reyes MD [address] [place] [address] Arrived [facility] Comment on above: Arrived Start: 02-22-2025 End: 02-22-2025 Patient encounter procedure 02/22/2025 9:00 AM EDT Office Visit [facility] [address] [place] [phone] Tracie Montiel DO [address] [place] [address] [facility] Start: 02-20-2025 End: 02-20-2025 Patient encounter procedure 02/20/2025 10:30 AM EDT Office Visit [facility] [address] [place] [phone] Beto Reyes MD [address] [place] [address] Arrived [facility] Comment on above: Arrived Start: 02-06-2025 End: 02-06-2025 Patient encounter procedure 02/06/2025 2:30 PM EDT Office Visit [facility] [address] [facility] [place] [address] Blair Gan, SLICER MACHINE OPERATOR [address] [place] [address] Arrived [facility] Comment on above: Arrived Start: 12-03-2024 End: 12-03-2024 Patient encounter procedure [facility] Comment on above: Arrived Start: 10-10-2024 End: 10-10-2024 Patient encounter procedure 10/10/2024 1:40 PM EST Office Visit [facility] [place] [facility] [address] [place] [phone] Pascale Souza PA [address] [place], [place] [id number] [facility] [place] [facility] Start: 07-19-2024 End: 07-19-2024 Patient encounter procedure 07/19/2024 10:40 AM EDT Office Visit [facility] [place] [facility] [address] [place] [phone] Pascale Souza PA [address] [place] [address] [facility] [place] [facility] Start: 06-19-2024 End: 06-19-2024 Patient encounter procedure 06/19/2024 1:00 PM EDT Office Visit [facility] [place] [facility] [address] [place] [phone] Pascale Souza PA [address] [place] [address] [facility] [place] [facility] Start: 06-13-2024 End: 06-13-2024 Patient encounter procedure 06/13/2024 1:00 PM EDT Procedure Visit [facility] [address] [facility] [address] [place] [phone] Maurizio Patrick MD [address] [place] [address] [facility] Start: 05-24-2024 End: 05-24-2024 Patient encounter procedure 05/24/2024 8:30 AM EDT Procedure Visit [facility] [address] [place] [address] Maurizio Patrick MD [address] [place] [id number] Arrived [facility] Comment on above: Arrived EMG 2 Extremities EMG 2 Extremit ies Neurology Routine Carpal tunnel syndrome on both sides Ordered: 05/24/2024 [facility] Work Phone: Comment on above: Ordered: 05/24/2024 Patient Education Low back pain in adults [facility] Work Phone: Payers Date Payer Category Payer Medicare [id number] 2023 Medicare (Managed Care) [facility] MEDICARE [id number] 2021 Medicare [id number] 2.16.840.1.201367.19 1974 Unknown [id number] 2.840.1.581252.3.579.2 .593 1974 Unknown [id number] 2.16.840.1.758800.3.579.2 .593 1974 Unknown [id number] 2.16.840.1.520515.3.579.2 .593 1974 Unknown [id number] 2.16.840.1.329328.3.579.2 .593 1974 Unknown [id number] 2.16.840.1.516514.3.579.2 .593 1974 Unknown [id number] 2.16.840.1.286687.3.579.2 .593 1974 Unknown [id number] 2.16.840.1.585690.3.579.2 .593 1974 Unknown [id number] 2.16.840.1.827723.3.579.2 .593 1974 Unknown [id number] 2.16.840.1.275145.3.579.2 .593 1974 Unknown [id number] 2.16.840.1.368200.3.579.2 .593 1974 Unknown [id number] 2.16.840.1.443439.3.579.2 .593 1974 Unknown [id number] 2.16.840.1.841646.3.579.2 .593 1974 Unknown [id number] 2.16.840.1.074481.3.579.2 .593 1974 Unknown [id number] 2.16.840.1.012462.3.579.2 .1286 1974 Unknown [id number] 2.16.840.1.444518.3.579.2 .718 1974 Unknown [id number] 2.16.840.1.215562.3.579.2 .718 1974 Unknown [id number] 2.16.840.1.375267.3.579.2 .718 1974 Unknown [id number] 2.16.840.1.354645.3.579.2 .1974 Unknown [id number] 2.16.840.1.114136.3.579.2 .1974 Unknown [id number] 2.16.840.1.119423.3.579.2 .1974 Unknown [id number] 2.16.840.1.844941.3.579.2 .1974 Unknown [id number] 2.16.840.1.698205.3.579.2 .1974 Unknown [id number] 2.16.840.1.881954.3.579.2 .1974 Unknown [id number] 2.16.840.1.075989.3.579.2 .1974 Unknown [id number] 2.16.840.1.728578.3.579.2 .1974 Unknown [id number] 2.16.840.1.930459.3.579.2 .1974 Unknown [id number] 2.16.840.1.137972.3.579.2 .1258 1974 Unknown [id number] 2.16.840.1.605091.3.579.2 .1258 1974 Unknown [id number] 2.16.840.1.851680.3.579.2 .1258 1974 Unknown [id number] 2.16.840.1.089608.3.579.2 .1258 1974 Unknown [id number] 2.16.840.1.399108.3.579.2 .1258 1974 Unknown [id number] 2.16.840.1.496845.3.579.2 .1258 1974 Unknown [id number] 2.16.840.1.270052.3.579.2 .12581974 Unknown [id number] 2.16.840.1.637710.3.579.2 .1259 1974 Unknown [id number] 2.16.840.1.843890.3.579.2 .196 1959 Medicare [id number] Private Health Insurance [facility] [id number] Unknown [id number] Social History Date Type Detail Facility Unknown if ever smoked [facility] Other Start: 04-11-2024 End: 02-20-2025 Sex Assigned At [facility] [employer] Other Start: 04-11-2024 Tobacco smoking stat [facility] Never smoked tobacco [facility] Start: 04-11-2024 Tobacco use and exposure Smokeless tobacco non-user [facility] Start: 04-11-2024 End: 12-03-2024 Alcoholic beverage intake Lifetime non-drinker (finding) [facility] Start: 04-11-2024 End: 02-20-2025 History of Social function [facility] Start: 1975 Sex assigned at Not on file [facility] Start: 02-05-2025 End: 04-17-2025 Tobacco smoking status INIS Ex-smoker [facility] History of tobacco use Current smoker [facility] History of tobacco use Cigarette Smoker [facility] Start: 02-05-2025 End: 02-20-2025 Alcoholic beverage intake Ex-drinker (finding) [facility] Sex Male (finding) [facility] Start: 1975 Sex Assigned At Male F [facility] Clinical Notes 04-15-2022 to 04-17-2025 Note Date & Type Note Facility 04-17-2025 Evaluation note Diagnosis Onset Date Resolution Chronic bilateral low back pain acute April 17, 2025 9:22am Former smoker acute April 17, 2025 9:22am Migraines acute April 17 9:22am Morbid obesity with BMI of 45.0-49.9, adult acute April 17, 2025 9:22am GERD (gastroesophageal reflux disease) chronic April 17, 2025 9:22am HTN (hypertension) chronic March 212024 9:22am GRACIE on CPAP chronic April 17 9:22am Morbid obesity with BMI of 45.0-49.9, adult acute May 13 8:54am HTN (hypertension) chronic May 13, 2025 8:54am GRACIE on CPAP chronic May 13, 2025 8:54am [facility] Work Phone: 1(290) 413-846107-09-2025 History of Present illness Narrative* Beto Reyes MD - 03/27/2025 8:40 AM EDT Subjective Patient ID: Riccardo Hale is a 49 y.o. male who presents for Rhinitis medicamentosa (1 month checknose and clean ears) Pt states he was [...] disease) 07/25/2024 Hyperlipidemia 07/25/2024 Hypertension 07/25/2024 Ileus ([facility]) 07/24/2024 Migraine 02/19/2025 Nausea and vomiting 07/25/2024 Morbid (severe) obesity due to excess calories ([facility]) 02/19/2025 Resolved Ambulatory Problems Diagnosis Date Noted [...] and replace cap. 48 g 3 HYDROcodone-acetaminophen ([place]) 5-325 MG tablet 1 tablet every 6 (six) hours if needed for severepain lisinopril 20 MG tablet Take 20 mg [...] hypertonic saline irrigations prn. documented in this [facility]06-16-2025 NoteEntered by MILAN NAILS DO on March 04, 2025 07:38:09 EDT From: MILAN NAILS DO To: [facility] Sent: 03/04/2025 07:38:08 EDT Subject: Medication [...] 5 Substitutions Allowed Route To Pharmacy - [facility] Approved with modifications: SUMAtriptan (sumatriptan 100 mg tablet) TAKE 1 TABLET BY MOUTH DAILY Qty: 12 EA Days Supply: 30 Refills: 5 Substitutions Allowed Route To Pharmacy - [facility] Approved with modifications: albuterol (albuterol sulfate HFA 90 mcg/actuation aerosol inhaler) INHALE 2 PUFFS BY MOUTH EVERY 6 HOURS NEEDED Qty: 8.5 gm Days Supply: 25 Refills: 5 Substitutions Allowed Route To Pharmacy - [facility] From: [facility] To: MILAN NAILS DO Sent: March [...] mcg/inh inhalation aerosol), INHALE 2 PUFFS BY MOUTHEVERY 6 HOURS NEEDED Quantity: 8.5 gm Days Supply: 25 Refills: 5 Substitutions Allowed Notes from Pharmacy: Dispensed Drug: albuterol (Albuterol (Eqv-ProAir HFA) 90 mcg/inh inhalation aerosol), INHALE 2 PUFFS BY MOUTH EVERY 6 HOURS NEEDED Quantity: 8.5 gm Days Supply: 25 Refills: 5 Substitutions Allowed [id number] Note [id number] Memorial HospitalGzezoruf28-19-2218 [facility] SURGERY Clinical Discharge Summary PERSON INFORMATION Name RICCARDO HALE Age 49 Years 1975 Sex MALE Language Tajik PCP MILAN NAILS DO Marital Status Single Med Service Ambulatory Surgery Acct# Arrival 02/21/2025 06:22:54 Visit Reason SURGERY - COLONOSCOPY - SCREENING Acuity LOS 015 21:32 Address: [address] [place] [address] Comment: PROVIDER INFORMATION VITALS INFORMATION Vital Sign [...] release) 1 cap(s) Oral (given by mouth) everyday. Refills: 5. SUMAtriptan (SUMAtriptan 100 mg oral [...] release) 1 cap(s) Oral (given by mouth) everyday. Refills: 5. SUMAtriptan (SUMAtriptan 100 mg oral [...] every day. cyanocobalamin (Vitam (more content not included)...[id number] History of Present illness Narrative* Beto Reyes MD - 02/20/2025 10:30 AM EDT Subjective Patient ID: Riccardo Hale is a 49 y.o. male who presents for Sinusitis Pt reports a 3-4 year h/o nasal and periorbital pressure, nasal obstruction. Uses decongestant spray 4 times daily. Also tx with flonase and leigh. No abx. No allergy eval. 11/15 CT sinus shows mildsinus dz. Review of Systems All other systems [...] 02/19/2025 GERD (gastroesophageal reflux disease) 07/25/2024 Hyperlipidemia ([facility]) 07/25/2024 Hypertension ([facility]) 07/25/2024 Ileus ([facility]) 07/24/2024 Migraine 02/19/2025 Nausea and vomiting 07/25/2024 Morbid (severe) obesity due to excess calories ([facility]) 02/19/2025 Resolved Ambulatory Problems Diagnosis Date Noted [...] Take 180 mg by mouth Daily HYDROcodone-acetaminophen ([place]) 5-325 MG tablet 1 tablet every 6 (six) hours if needed for severepain lisinopril 20 MG tablet Take 20 mg [...] Clean ears at F/U documented in this encounterHermann Area District HospitalHnxuoymudb71-81-6239 History of Present illness Narrative* Blair Gan NP - 02/06/2025 2:30 PM EDT Images from the original note were not [...] PT IS RT HANDED. PAIN MGMT - TB (BACK/LEGS) DR. PATRICK- NEURO EMG [facility] -05/24/24 [...] Daily fexofenadine (LEIGH) 180 mg, Daily HYDROcodone-acetaminophen ([place]) 5-325 MG tablet 1 tablet, Every 6 [...] Use: Not At Risk (10/24/2018) Received from [employer] [facility] Frequency of Alcohol Consumption: Never Average [...] Strength additional comments: Right greater than left ed physicians strength Neurovascular Right Right neurovascular exam is [...] bilateral Carpal Tunnel - EMG done at [facility] [place] 05/24/24 Standing Status: Future Expected Date: 02/06/2025 [...] not make the symptoms better. Surgery may helpprevent further progression of symptoms. He would like [...] for requiring urgent evaluation. documented in this encounterHermann Area District HospitalDxqahgkwel34-76-2434 NoteEntered by MILAN NAILS DO on February 04, 2025 10:00:28 EDT From: MILAN NAILS DO To: [facility] Sent: 02/04/2025 10:00:28 EDT Subject: Medication Management Submitted: Complete:DULoxetine (DULoxetine 60 mg oral delayed release capsule) Signed by MILAN NAILS DO 02/04/2025 10:00:00 EDT Approved with modifications: DULoxetine (duloxetine 60 mg capsule,delayed release) TAKE 1 CAPSULE BY MOUTH DAILY Qty: 30 cap(s) Days Supply: 30 Refills: 5 Substitutions Allowed Route To Pharmacy - [facility] From: [facility] To: MILAN NAILS DO Sent: February [...] delayed release capsule), TAKE 1 CAPSULE BY MOUTHDAILY Quantity: 30 cap(s) Days Supply: 30 Refills: 11 Substitutions Allowed Notes from Pharmacy: [place] [id number] Note Entered by MILAN NAILS DO on January 03, 2025 13:01:51 EDT From: MILAN NAILS DO To: [facility] Sent: 01/03/2025 13:01:51 EDT Subject: Medication Management Submitted: Complete:omeprazole (omeprazole 20 mg oral delayed release capsule) Signed by MILAN NAILS DO 01/03/2025 13:01:00 EDT Approved with modifications: omeprazole (omeprazole 20 mg capsule,delayed release) TAKE 1 CAPSULE BY MOUTH DAILY Qty: 30 cap(s) Days Supply: 30 Refills: 5 Substitutions Allowed Route To Pharmacy - [facility] From: [facility]72 To: MILAN NAILS DO Sent: January [...] delayed release capsule), TAKE 1 CAPSULE BY MOUTHDAILY Quantity: 30 cap(s) Days Supply: 30 Refills: 11 Substitutions Allowed Notes [id number] Telephone encounter Note* Telephone Encounter - Colby Marc MA - 01/03/2025 11:16 AM EDT 12/03/2024 Continue baclofen 10mg PO up to 4 times daily for muscle spasm. Will not allow me to select QID. [place] [id number] Miscellaneous Notes* Telephone Encounter - Colby Marc MA - 01/03/2025 11:16 AM EDT 12/03/2024 Continue baclofen 10mg PO up to 4 times daily for muscle spasm. Will not allow me to select QID. documented in this encounterHermann Area District HospitalEggpwrafhd66-61-8317 Telephone encounter Note* Telephone Encounter - Patrizia Buenrostro - 12/03/2024 12:18 PM EDT Contacted and he noted the FCE is not needed. He said for the update of disability this is not required. I let him know not to hesitate if we'd be needed. [facility] HospitalAjqfkvckzh66-69-8116 Miscellaneous Notes* Telephone Encounter - Patrizia Buenrostro - 12/03/2024 12:18 PM EDT Contacted and he noted the FCE is not needed. He said for the update of disability this is not required. I let him know not to hesitate if we'd be needed. * Telephone Encounter - Patrizia Buenrostro - 11/28/2024 1:22 PM EDT Tried to contact re: referral for FCE. Requested a call back to verify if this would be going thru C[facility], covered; if not then self-pay @ $505.00. documented in this encounterHermann Area District HospitalJvmajklbdw22-14-3540 Telephone encounter Note* Telephone Encounter - Patrizia Buenrostro - 11/28/2024 1:22 PM EDT Tried to contact re: referral for FCE. Requested a call back to verify if this would be going thru C-[facility], covered; if not then self-pay @ $505.00. [facility] HospitalCgfdnmetxf93-93-7392 NotePROCEDURE: CT Sinus w/o Contrast COMPARISON: None. HISTORY: [...] Christopher Manjarrez MD 11/16/24 9:26 am Technologist: [facility]02-24-2025 NoteEntered by MILAN NAILS DO on November 12, 2024 07:31:34 EST From: MILAN NAILS DO To: [facility] Sent: 11/12/2024 07:31:34 EST Subject: Medication Management Submitted: Complete:lisinopril (lisinopril 20 mg oral tablet) Signed by MILAN NAILS DO 11/12/2024 07:31:00 EST Approved with modifications: lisinopril (lisinopril 20 mg tablet) TAKE 1 TABLET BY MOUTH DAILY Qty: 90 tab(s) Days Supply: 90 Refills: 1 Substitutions Allowed Route To Pharmacy - [facility] From: [facility] To: MILAN NAILS DO Sent: November 09, 2024 6:21:57 PM CORRUGATOR OPERATOR Subject: Medication Management Due: November 10, 2024 12:08:02 AM CORRUGATOR OPERATOR On Hold Pending Signature Drug: lisinopril (lisinopril 20 mg oral tablet), TAKE 1 TABLET BY MOUTH DAILY Quantity: 90 tab(s) Days Supply: 90 Refills: 5 Substitutions Allowed Notes from Pharmacy: Dispensed Drug: lisinopril (lisinopril 20 mg oral tablet), TAKE 1 TABLET BY MOUTH DAILY Quantity: 90 tab(s) Days Supply: 90 Refills: 5 Substitutions Allowed Notes from [facility]Zctimcyb22-47-1941 Note Entered by MILAN NAILS DO on October 26, 2024 14:14:29 EST From: MILAN NAILS DO To: [facility] Sent: 10/26/2024 14:14:29 EST Subject: Medication Management Submitted: Complete:fexofenadine (fexofenadine 180 mg oral tablet) Signed by MILAN NAILS DO 10/26/2024 14:14:00 EST Approved with modifications: fexofenadine (fexofenadine 180 mg tablet) TAKE 1 TABLET BY MOUTH EVERY DAY Qty: 30 tab(s) Days Supply: 30 Refills: 5 Substitutions Allowed Route To Pharmacy - [facility] From: [facility] To: MILAN NAILS DO Sent: October 26, 2024 12:55:48 PM CORRUGATOR OPERATOR Subject: Medication Management Due: October 27, 2024 12:02:15 AM CORRUGATOR OPERATOR On Hold Pending Signature Drug: fexofenadine (fexofenadine 180 mg oral tablet), TAKE 1 TABLET BY MOUTH DAILY Quantity: 30 tab(s) Days Supply: 30 Refills: 5 Substitutions Allowed Notes from Pharmacy: Dispensed Drug: fexofenadine (fexofenadine 180 mg oral tablet), TAKE 1 TABLET BY MOUTH EVERY DAY Quantity: 30 tab(s) Days Supply: 30 Refills: 5 Substitutions Allowed Notes [facility]: [facility]Aquikqmr18-52-1369 Note Entered by MILAN NAILS DO on August 27, 2024 16:27:03 EST From: MILAN NAILS DO To: [facility] Sent: 08/27/2024 16:27:03 EST Subject: Medication [...] 25 Refills: 5 Substitutions Allowed Route To [facility] Approved with modifications: propranolol (propranolol ER 80 mg capsule,24 hr,extended release) TAKE 1 CAPSULE BY MOUTH DAILY Qty: 30 cap(s) Days Supply: 30 Refills: 5 Substitutions Allowed Route To [facility] #72 Approved with modifications: SUMAtriptan (sumatriptan 100 mg tablet) TAKE 1 TABLET BY MOUTH DAILY Qty: 12 EA Days Supply: 12 Refills: 5 Substitutions Allowed Route To [facility] [place] #72 From: [facility] #72 To: MILAN NAILS DO Sent: August 27, 2024 2:39:32 PM CORRUGATOR OPERATOR Subject: Medication Management Due: August 28, 2024 12:06:32 AM CORRUGATOR OPERATOR On Hold Pending Signature Drug: albuterol (Albuterol (Eqv-ProAir HFA) 90 mcg/inh inhalation aerosol), INHALE 2 PUFFS BY MOUTHEVERY 6 HOURS NEEDED Quantity: 8.5 gm Days [...] Refills: 5 Substitutions [id number] History of Present illness Narrative* Danya Ritter MA - 07/17/2024 10:30 AM EDT Images from the original note were not included. Reason for Appointment: EMG Patient: Riccardo Hale : 1975 EMG Computer: [employer] Referring Physician: Dr. Maurizio Patrick EMG: GIOVANNA policy writer: Danya Ritter CMA Office Location: [place] Reason for EMG: c/o hypersensitivty to the bottoms of the feet. Paresthesia in the legs. R>L. NoHx of DM, not taking blood thinners. Comments: Procedure explained to the patient who expressed understanding. documented in this encounterHermann Area District [id number] History of Present illness Narrative* Danya Ritter MA - 05/24/2024 8:30 AM EDT Images from the original note were not included. Reason for Appointment: EMG Patient: Riccardo Hale : 1975 EMG Computer: [employer] Referring Physician: Pascale Souza PA-C EMG: ASHLEY policy writer: Danya Ritter CMA Office Location: [place] Reason for EMG: c/o burning, numbness, tingling in the hands. R>L. Sometimes has a hard time closing his hand. No Hx of DM, not taking blood thinners. Comments: Procedure explained to the patient who expressed understanding. documented in this encounterHermann Area District [id number] NoteEntered by MILAN NAILS DO on May 22, 2024 08:21:07 EDT From: MILAN NAILS DO To: [facility] #72 Sent: 05/22/2024 08:21:07 EDT Subject: Medication Management Submitted: Complete:SUMAtriptan (SUMAtriptan 100 mg oral tablet) Signed by MILAN NAILS DO 05/22/2024 08:21:00 EDT Approved with modifications: SUMAtriptan (sumatriptan 100 mg tablet) TAKE 1 TABLET BY MOUTH DAILY Qty: 12 EA Days Supply: 12 Refills: 2 Substitutions Allowed Route To Pharmacy - [facility] From: [facility] #72 To: MILAN NAILS DO Sent: May [...] Refills: 2 Substitutions [id number] Note Entered by MILAN NAILS DO on May 02, 2024 11:28:48 EDT From: MILAN NAILS DO To: [facility] #72 Sent: 05/02/2024 11:28:48 EDT Subject: Medication Management Submitted: Complete:fexofenadine (fexofenadine 180 mg oral tablet) Signed by MILAN NAILS DO 05/02/2024 11:28:00 EDT Approved with modifications: fexofenadine (fexofenadine 180 mg tablet) TAKE 1 TABLET BY MOUTH DAILY Qty: 30 tab(s) Days Supply: 30 Refills: 5 Substitutions Allowed Route To Pharmacy - [facility] #72 From: [facility] #72 To: MILAN NALIS DO Sent: May 02, 2024 10:22:44 AM [...] Refills: 5 Substitutions [facility]owed [id number] Evaluation note* Encounter Date Diagnosis Assessment Notes Treatment Notes Treatment Clinical Notes Sep, Acute sinusitis, recurrence not specified, [...] 3 days Sep, Bronchitis (ICD-10 - J40) [facility] Other 07-28-2023 Evaluation note* Encounter Date Diagnosis [...] is not contagious from itself or drainage. [facility] Other 05-30-2023 NoteCONSULTATION CONSULTATION DATE: 02/15/2023 TO: [...] the lower extremities. MEDICATION: Current medication includes [place] 5 mg t.i.d. p.r.n. Patient reports it [...] our patients to inform us about any uakx-jps-lfemmui medications or herbal remedies/nutritional supplements/alternative remedies. 2. [...] with their primary care provider.[facility] [id number] Note CONSULTATION CONSULTATION DATE: 01/06/2023 TO: Dr. [...] our patients to inform us about any auiy-jgs-ynehmky medications or herbal remedies/nutritional supplements/alternative remedies. 2. [...] with their primary care provider.[facility] [id number] Note CONSULTATION PROCEDURE DATE: 10/06/2022 PREOPERATIVE DIAGNOSIS: [...] followed up in the office.[facility] [id number] NoteCONSULTATION CONSULTATION DATE: 08/26/2022 HISTORY OF PRESENT [...] his muscle relaxer. Our clinic prescribes his [place] 5/325 b.i.d. and diclofenac 75 mg b.i.d. Patient does ambulate with a cane, which is not new for him. The patient is concerned as he feels he has had a weight gain recently. The patient feels he is having some spasming in his lower back as well, as he describes his pain as a deep, dull ache, 03/28. He denies any recent injuries or falls. [...] All questions were answered today.[facility] [id number] NoteCONSULTATION CONSULTATION DATE: 07/22/2022 HISTORY OF PRESENT [...] a cane. He has seen Neurosurgery at [facility] in the past, which they feel, at this time, he is not a surgical candidate and to be managed by Pain Management. He current does see Dr. Patrick at [facility] as well. Activities that aggravate his pain are pulling, sitting, walking, lying down and bending. He will alternate heat and ice which he feels does not make a significant difference. Medications include trazodone 50 mg q.h.s., tizanidine 4 mg b.i.d., Lyrica 50 mg t.i.d., diclofenac 75 mg b.i.d. and [place] 5/325 b.i.d. He does attend pool therapy [...] up in the clinic thereafter.[facility] 04-22-2022 NoteCONSULTATION PROCEDURE DATE: 04/22/2022 PRE [...] followed up in the office.[facility] [id number] NoteCONSULTATION CONSULTATION DATE: 04/15/2022 This is a [...] mg b.i.d., Lyrica 50 mg b.i.d. and [place] 5/325 b.i.d. He is complaining of trouble [...] for his trigger point injections.[facility] Evaluation note* Diagnosis Lumbar radiculopathy- Primary [...] 9:22am HTN (hypertension) chronic March 212024 9:22am [facility] Work Phone: Evaluation note* Diagnosis Rhinitis medicamentosa Other diseases of nasal cavity and sinuses documented in this encounter [facility]History general Narrative - Reported* Type Description Date Medical History HTN (hypertension) Medical History GERD (gastroesophageal reflux di sease) Medical History Chronic pain Medical History Anxiety Surgical History tonsillectomy and adenoidectomy Surgical History ablasion [facility] [employer] Other History general Narrative - Reported* Type Description Date Medical History HTN (hypertension) Medical History GERD (gastroesophageal reflux di sease) Medical History Chronic pain Medical History Anxiety Surgical History tonsillectomy and adenoidectomy Surgical History ablasion Surgical History nerve block Surgical History epidural [facility] Other Reason for referral (narrative)No reason for referral information availableTrihealth Work Phone: Summary Purpose Family History Relationship [...] HTN (hypertension) April 17, 2025 9:22 am Chief Complaint Admit Date Amb Documentation April 10, 2025 4:04 pm Est Care April 17, 2025 9:22 am 1 month f/u May 13, 2025 8: 54am Reason for Visit Admit Date Chronic bilateral low back pain March 9:22am Former smoker April 17, 2025 9:22 am Migraines April 17, 2025 9:22 am Morbid obesity with BMI of 45.0-49.9, ad ult April 17, 2025 9:22am GERD (gastroesophageal reflux disease) J ita 2024 9:22am HTN (hypertension) April 17, 2025 9:22 am GRACIE on CPAP April 17, 2025 9:22 am Morbid obesity with BMI of 45.0-49.9, ad ult May 13, 2025 8:54am HTN (hypertension) May 13, 2025 8: 54am GRACIE on CPAP May 13, 2025 8: 54am Additional Source Comments (unrecognized sect ion and content) No Status Records FoundNo Status Records FoundNo Status Records FoundNo Status Records FoundNo Status Records FoundNo Status Records FoundNo Status Records Found INFORMATION SOURCE (unrecogn ized section and content) DATE CREATED AUTHOR 03/09/2018 [facility] DATE CREATED AUTHOR AUTHOR'S ORGANIZ ATION 01/19/2022 [facility] DATE CREATED AUTHOR AUTHOR'S ORGANIZ ATION 02/25/2023 [facility] DATE CREATED AUTHOR AUTHOR'S ORGANIZ ATION 07/27/2024 [facility] DATE CREATED AUTHOR AUTHOR'S ORGANIZ ATION 03/15/2025 [facility] DATE CREATED AUTHOR AUTHOR'S ORGANIZ ATION 03/31/2025 [facility] EPIC DATE CREATED AUTHOR AUTHOR'S ORGANIZ ATION 05/03/2025 [facility] REASON FOR VISIT (unrecogniz ed section and content) Reason Comments Back Pain Numbness Reason Comments Med Refill Reason Onset Date Comments re: referral for FCE 11/28/2024 re: FCE 12/03/2024 Reason Comments Carpal Tunnel Reason Comments Sinusitis Reason Comments Rhinitis medicamentosa 1 month check nos e and clean ears Reason Onset Date Comments Med Refill 05/07/2025 Care Teams (unrecognized sec tion and content) Clinical Appeals Reviewer Relationship Specialty Start Date End Date Milan Nails MD [address] [place] [address] PCP - General Family Medicine 12/08/23 Clinical Appeals Reviewer Relationship Specialty Start Date End Date Milan Nails MD [address] [place] [address] PCP - General Family Medicine 12/08/23 Clinical Appeals Reviewer Relationship Specialty Start Date End Date Milan Nails MD [address] [place] [facility] [place] [address] PCP - General Family Medicine 12/08/23 Pascale Souza PA [address] [place] [address] Physician Irradiated Fuel Handler Neurology 07/19/24 Maurizio Patrick MD [address] [place] [address] Referring Physician Neurology 07/19/24 Clinical Appeals Reviewer Relationship Specialty Start Date End Date Milan Nails MD [address] [place] [address] PCP - General Family Medicine 12/08/23 Clinical Appeals Reviewer Relationship Specialty Start Date End Date Milan Nails MD [address] [place] [facility] [place] [address] PCP - General Family Medicine 12/08/23 Clinical Appeals Reviewer Relationship Specialty Start Date End Date Milan Nails MD [address] [place] [address] PCP - General Family Medicine 12/08/23 Pascale Souza PA [address] [place] [address] Physician Irradiated Fuel Handler Neurology 07/19/24 Maurizio Patrick MD [address] [place] [address] Referring Physician Neurology 07/19/24 Clinical Appeals Reviewer Relationship Specialty Start Date End Date Milan Nails MD [address] [place] [facility] [place] [address] PCP - General Family Medicine 12/08/23 Pascale Souza PA [address] [place] [address] Physician Irradiated Fuel Handler Neurology 07/19/24 Maurizio Patrick MD [address] [place] [address] Referring Physician Neurology 07/19/24 Clinical Appeals Reviewer Relationship Specialty Start Date End Date Milan Nails MD [address] [place] [facility] [place] [address] PCP - General Family Medicine 12/08/23 Pascale Souza PA [address] [place] [address] Physician Irradiated Fuel Handler Neurology 07/19/24 Maurizio Patrick MD [address] [place] [address] Referring Physician Neurology 07/19/24 Clinical Appeals Reviewer Relationship Specialty Start Date End Date Milan Nails MD [address] [place] [facility] [place] [address] PCP - General Family Medicine 12/08/23 Pascale Souza PA [address] [place] [address] Physician Irradiated Fuel Handler Neurology 07/19/24 Maurizio Patrick MD [address] [place] [address] Referring Physician Neurology 07/19/24 Clinical Appeals Reviewer Relationship Specialty Start Date End Date Milan Nails MD [address] [place] [address] PCP - General Family Medicine 12/08/23 Pascale Souza PA [address] [place] [address] Physician Irradiated Fuel Handler Neurology 07/19/24 Maurizio Patrick MD [address] [place] [address] Referring Physician Neurology 07/19/24 Clinical Appeals Reviewer Relationship Specialty Start Date End Date Milan Nails MD [address] [place] [place] [address] PCP - General Family Medicine 12/08/23 Pascale Souza PA [address] [place] [address] Physician Irradiated Fuel Handler Neurology 07/19/24 Maurizio Patrick MD [address] [place] [address] Referring Physician Neurology 07/19/24 Clinical Appeals Reviewer Relationship Specialty Start Date End Date Milan Nails MD [address] [place] [facility] [address] PCP - General Family Medicine 12/08/23 Pascale Souza PA [address] [place] [address] Physician Irradiated Fuel Handler Neurology 07/19/24 Maurizio Patrick MD [address] [place] [address] Referring Physician Neurology 07/19/24 Clinical Appeals Reviewer Relationship Specialty Start Date End Date Milan Nails MD [address] [place] [place] [address] PCP - General Family Medicine 12/08/23 Pascale Souza PA [address] [place] [address] Physician Irradiated Fuel Handler Neurology 07/19/24 Maurizio Patrick MD [address] [place] [address] Referring Physician Neurology 07/19/24 Clinical Appeals Reviewer Relationship Specialty Start Date End Date Milan Nails MD [address] [place] [facility] [place] [address] PCP - General Family Medicine 12/08/23 Pascale Souza PA [address] [place] [address] Physician Irradiated Fuel Handler Neurology 07/19/24 Maurizio Patrick MD [address] [place] [address] Referring Physician Neurology 07/19/24 Clinical Appeals Reviewer Relationship Specialty Start Date End Date Milan Nails MD [address] [place] [facility] [place] [address] PCP - General Family Medicine 12/08/23 Pascale Souza PA [address] [place] [address] Physician Irradiated Fuel Handler Neurology 07/19/24 Maurizio Patrick MD [address] [place] [address] Referring Physician Neurology 07/19/24 Team Status: Active Member Role Status Dates Temi Marshall APRN SLICER MACHINE OPERATOR-C Primary Care Provider Active Team Status: Active Member Role Status Dates RICHA Williamson Primary Care Provider Active Start: April 10, 2025 Belinda Negron Attending Provider Active Start: April 10, 2025 Team Status: Inactive Member Role Status Dates RIHCA Williamson Primary Care Provider Active Start: April 17, 2025 End: April 17, 2025 RICHA Williamson Attending Provider Act nakul Start: April 17, 2025 End: April 17, 2025 Clinical Appeals Reviewer Relationship Specialty Start Date End Date Milan Nails MD PCP - General Family Medicine 12/08/23 Pascale Souza PA [address] [place] [address] Physician Irradiated Fuel Handler Neurology 07/19/24 Maurizio Patrick MD [address] [place] [address] Referring Physician Neurology 07/19/24 Team Status: Inactive Member Role Status Dates RICHA Williamson Primary Care Provider Active Start: May 13, 2025 End: May 13, 2025 RICHA Williamson Attending Provider Act nakul Start: May 13, 2025 End: May 13, 2025 Goals (unrecognized section and content) Goals [...] BE BASED ON THE PRIMARY CLINICAL RECORDS. [facility]. provides no warranty or guarantee of the accuracy or completeness of information in this document.
== END 2025-05-27 09:14 | disposition home or self-care (01) ==
LOC: MRI 09:13
PROVIDERS: PCP Family Medicine; Visit Provider Nurse Practitioner
DX: M48.062 Spinal stenosis, lumbar region with neurogenic claudication (principal); M48.56XA Collapsed vertebra, not elsewhere classified, lumbar region, initial encounter for fracture
CPT/HCPCS: 72148

== ENCOUNTER 2025-06-05 08:36 | Outpatient (OUT) | payer MEDICARE, SELFPAY ==
--- OUTSIDE RECORDS SUMMARY | 2025-06-05 08:40 | XMS_ITS | CCD ---
Author Organization [facility] Providers Care Dupligraph Operator Name Role Phone KIRN, DALLAS Unavailable Unavailable [...] P Attending Unavailable Maurizio Patrick MD Unavailable [phone] PASCALE SOUZA Attending Unavailable BLAIR GAN Attending Unavailable PASCALE SOUZA Attending Unavailable MAURIZIO PATRICK Attending Unavailable BETO REYES Attending Unavailable MILAN NAILS Referring Unavailable BETO REYES Attending Unavailable MAURIZIO PATRICK Attending Unavailable PASCALE SOUZA Attending Unavailable Temi Marshall APRN Primary Care Provider Belinda Negron Attending Provider Unavailable Temi Marshall APRN Attending Provider [phone] Mk RICHARDS, Renetta Marlow Attending Unavailable Milan [...] six hours as needed for pain HYDROcodone-acetaminophen (Deport) 5-325 MG tablet 1 tablet every 6 (six) hours if needed for severe pain Active take 1 tablet by jay th every six hours as needed Deport 5-325 MG 1 tablet as needed Orally every 6 hrs Active [id number] 200 actuat albuterol 0.09 mg/actuat metered dose [...] Range Facility Patient Letteron 03-13-2025 Patient Letter [id number][id number]-04-2025 Coding Summary HTMLBase 64 MpekixmcXCh2rRt+PGhlYW Q+QV5PLFZgG87wzAMtrG0p P8CDVKkBBunrYYSVGZeMZv LkvnJqXF0agKAtCMCq IC8+GT9zOIRkWlzqwAYfd7 M4qXE7J16ayd6gGZrpbHN8 TVDyTzYlxkyxf8ospMa0RF cuNmluOyBt QBRpcH35TNQ9cX80Xw10uY KrnESxm2vnpPv9FaKxNPAm JRI5tXrsHEapc8XvHYOaP1 1veQYoz1F9 VMNerRegvIBtYvEfgBK8hX 3pQFykkqpws1ohvxscYxb5 ln73pKEji0B2bQY7U4Uatl D5YSBrxMJx HkmezQBEuP6wxaiet8tfkq izKhQiOYItAGk1BKv2CDAh uHrnTwBdBK74LEA9XARgdd RgJ4BmKXYq cByuSuC3t3F4Fi3YP7NFVx nmD4VGROHPIXnowMK+PC90 ld51L7AmRymyRou1MTBkSK N9sHO5mE3m YLQtRLtdw9C7cER2C1Cplh Aawd1np3hwVDNxPGteR08m rQKes1S7DBNuwLL2JOEjnZ pbKqZjeV92 Oyc+HTTlbHopi5AwLywmb2 onk3ynkIv0UwmqNZQvgtZd aKuhXOG5i5LhKu9mVRWzzE R4hYW0nS9b OwFySiQ7UZakV873PhAghV NvOwotL72aI6DopCG+PHRy Guw4EOStsLqdCL8tT6ZaWE RpbmctbGVm pViuDF1gDINvhaowEVQrlO 3zILTsJ9i4OqQeIxC4FSvx U6LqDTLwilmlSl71mU5tTr DuHsJ3FAgu Z7SnsmF0QVYujDMgOSrsEG V5Q63uw0M5TIXhVAJbJCO9 mOV0iS7pqJonfzkkvVWtkT sgdmVydGlj AIvuQWbyF181EXUqcZkqVc NvZGluZyBEYXRlOiAgMDYv MTYvMjAyNTwvdGQ+PHRkIH D2fZkqSAVv yAFuBJmuYf7oeMlblHfgNA 3uYREqovyoINFzqU4sWYSj zLPokFamJW8sRTRohfsfk8 49WjRyYRX7 WIUnkHIgO6KkjO7pAzKcZH FfREMsE8DnhQVkSAisY940 FEgrPhO2LAOomoOhP9YbIX FsaWduOiB0 x8V5Xp9Nq0RuvwsjL8PxgY DuIuMfWcugMFb9W8IuGdtu dHI+GP22DVWaHI91CWq5HG S7yDniIWke NUByW4UqxZ0hCwTkCDMrBE RkOyc+PHRhYmxlIHdpZHRo ZAppNWBcDnWftDdeRQ5xFi 9yZGVyLWNv oUorkSNeKfXko3saJPLmBZ qzOA6ugNakZ0VrpEV5RFEs w3l9Fx61E86yT7EooNT+PG EajIR6eRQ0 gJ7wEvIqSkN2BLsfY797Ic FmpHMpJpcmd9yvh5cknTg8 GcA7LKDsypFzyXcfJDT0m1 PdQx87S38p IHdpZHRoPSIxNSUiIHZhbG yvor4noG5mTc1+PGNvbCB3 bOO2mJ9sYgHlGzM1FPsyF7 49InRvcCIv Jinpa3vur6mezSw9PcKeYU EzpgYgtRdkPZK2i0KoUp65 A7GdiZkwg9RbSne2bk63jB Shx5K7nPS4 L9QpWVYosftrdFKmlAjfIT 2dLKOoadioJQIozE7nWNRw P4x6NuOjAxE5PDorH8Fgak T2OVTnsVLo SOWjwCKCqP5daahdq5tnbp bnMuMrGRWbAHv5FVf6YLOg eHosQaQnNRH5QnV2FEU9fI PaqN1oaWky awwydU0uYcz+BHR7xJSqlP HYXM0yVcozlFG+PHRkIHN0 sGnsAAdbKQLlnY4wFACvP1 h8XhXkFjK1 VGmmK9WcmrJ0SDHfzRVoIT NuaZBPuB5wnplmk5warena UhZkRLFvWLb3VBz9WANlmN duOiBsZWZ0 HwD1IGB5kDSjjS6zsZpgde gojE8aTxq+QmlydGggRGF0 YFw7S1LvLfg9HTTttAovPV 0ncGFkZGlu Bf9elCteuCnaWP0wGZFjvl put377KnIuy5pwTRPltRSc GSntNOM7D90gk4E2IFEsBV SsIOU6mXL3 cQ2agHvavyzciDVxvSkvvt GtiYhrDVtdSBxsT892XAOb kQuxGdIwIAq7V0MzIng8NU JqdKorEU7d bBGxHVrsXq4ovHxxfRrnUS 5aMGKaryuof925ZyOyi1vj BQTnnFIpMJnfSMB5W00mn5 U3ZLOzQPYx NXU3nTO2gA2jmFszrpukcO VmdDsgdmVydGljYWwtYWxp Q892MUYmuIznClMkzNa1P5 ObDod5GPLk iSgiVL0iyYBdFJjpOl9erX hsxDhbUB6cMIWzgfhzu375 KbIvv9glATCobGUwUNeaSU I4K22fg2L5 BXKoVRJtKUY8oXD3mY7cgM lnbjogbGVmdDsgdmVydGlj DSqhFKssW360LJXguTppEy BhdGllbnQg USknNEe6F8AfPmvihSH+PC 34ZOCgKK54qOTbaQVmf6jn vGq2CoPlRKDzTEO9fXrrXA npq8ZtSMPb N57nwRVev8Y8ANJoiXnhiA GaSxOrvHS8pJ7zYGybdblm l5cyluktSqnwp8ybmr76eC 34V20mCYkw ZHRoPSIzMCUiIHZhbGlnbj 3fsP7vRn7+BTCovZP5hSB3 kB3sZNPaZpI3VAiiF179Ac RvcCIvPjxj l2goj9tioUg5CcJ5WIGiae BkpNhjSMJ0k6EzKx28X23c IHdpZHRoPSIyMCUiIHZhbG flcx4aiF3d Ii8+BDDeiPN0qVB3lH2iSz EoWmR0YZvsJ058JmDvdJWz OfazP42jH8DmzUK+PHRyPj a2JRYtjKxl EG4ofYOqSBbkTc9tPET2Vf KuMdGwEVihT0MqXGCstrgn jjaauIQ3TLMaYFTpcM89Yz 9udDogMTBw yTCGqF1tittna6snbdcfTx XiLZGzIQg8OWw0IMAmoDou EpEvRVE5VsJ8GIN5oEYllK 1hbGlnbjog rM7cJ6UwGYYshzorKi09xS 7aBsHpEaQ7IAjzZcq+U0VE VL7LNnfdJ3AFVDXQXBWKW2 FSRDwvdGQ+ TBDrJXJ0mTugGSydCYShsH 1yQHAbI4h1KvBoYvE5KTax B3ApDKFwvobeBs86gO4sPn LaViG3QBnq V5AzgqT0QEEzkQBiLFroWJ L3R94tr4E5WJFoGGUdIBM8 hWN9oD1ptXugemjjqRIvjQ sgdmVydGlj EBiuGQxhQ137SEGzhArhKa SlDtRyFhJ3KkT5O5GrUjn2 YKZukEukYF2iaJWuDCtgPp 1yaWdodDog UE7gADPxbponMDZzdX6wRF FttDMqiQquVD8vCZHsnely u211NeBkQIS9JGXfdURvK6 NstM6xAsZm ELCkXQLwP8SzmHBaFMbjY3 75RIokGrN9OSRmlsFdP4Jw CIYsqRwsBxZ7t5C0Rd01KQ BZZWFyczwv dGQ+UKUpBPQ8hCrjNTpwKZ WsnC1zWMDpV5v4NfQiDdB0 LZbyY2YoHGMflotxOt64dH 4vSxFqWzW4 XLyaW5RnbwR5GNSjzNAgJE puOLA3N73ej6B2OIGmANOu NFU2nCO6lT4aiIuecjbncJ VmdDsgdmVy vBplQHxnQSixP136LFQcdU rtAo1DOOB3A8CaTag9HJYg nQnbFI3dgTVwNEiqUh7sbD xiyHxeCB9j ZAWazgqlTCQisD7sPRQtyE UlvBmvKN3jWHAhwroxt935 HdOhWWG0INJjjUGeY0QzoJ 9yOiAjMDAw IRYyN1AzjAPbBRlvW219OH qhEnE7NZJpwdJkV8QfOYEv kImtGsS4h1W8Os6XDBxhP1 VfW3MjvMvn dGQ+PP48db58T0SpGdofDj x8NPGrEIM0zSF7xI5qKFQi UWqqs4F3oSB1J4TmxfGazs 9fo6vqXMZz OZqwD73cmGKnj7S5JSHiaP L6HAPwlXqfVqSgjW40Dho+ JJHicFkpi9GmXpjlu0wuw2 lvjEt4IbIa YZOhdqIbtZktTVB9u7KlZs 46V03hUCexVFOmTUJgDYOe TQUjnNtvez2wuG2yDp1+PG EkqRV8vYH2 iY8kDsYlNcC4LCruO633Lv VmvLXeYtptt6yrl9txtDn9 QxOsNRJwygHjnEjgJSS5a1 NhAw15R7Kl yYxfe8WrFav9pl47kEXio7 G4lYP3C4QsMFAjfdecqDLg qCyfNJ4tKJEljoooBYKhhK 9gRLPoK6q4 XoMnPrC2PUpnB7GllfY1WU TooREwYKCoiHLJjJ9jmfup m2svsetdBqWeGEEfIWg9EV f7LEFyjIku SgCnNYF3ElN0LMV1vRZljQ 5ecLqbakqmkM6gMvn+UGh5 l9nugDGwOS5zlOX5SD83EO 39sNJne8Y4 bDB1P0FgRDNuxsfsxartsB H1CUSmAXOcxL91Lv5wiSui Mh0mCABqYKA7VKCkwJWfE8 IzgU2nVeBu MXDzFPBpQ0NamJVkQHsbX4 97EJleRxF5TYTedwGoK9Ch CLCtmLyvEeK4k5S9It8FCI 13NW09SC62 eFLkc7N6vOA0N6KtXENouq icivjgsDJ3NNCzHUEzaA33 Wm5gmQohGy4mBVSbUMB5PQ UftIUfV8Vs wT6rHiVsECHjYHQoN8UwkM TlYHbeX490BAvbZuW8MQBo tnVmD3DrAAGapTxgMuS6o9 I7Ms0LJs73 DM46YU05iLFey1R9vFP3I2 FwUODdpwevnnblzDZ9HEUx KHAjmO47Dr3azHpoPg2cCR AxCZA1YPUs qZBbD0CwpC5yDsDoZDQeVY OvG9JexEDhSNzzB533PEja NwN8GQZuetJeL3VhCEWwgE jxIbM7n4V2 Hh1PWMrtihb5M4SaYsmzcM I+FX61ZCYpQM86eMOcqVSu k9ayiHq7FeZuNRJeTCS3wH tuXUvpx5Hf ZXI (more content not included)... [facility] Provider Orderson 02-25-2025 Provider Orders [id number]#1.00 [facility] Consent Formson 02-22-2025 Consent Forms [id number]#1.00 [facility] Anesthesia Noteon 02-21-2025 Anesthesia Note Patient: RICCARDO HALE Age: 49 years Sex: MALE : 1975 Associated Diagnoses: None Author: Eitan Ramírez MD Postoperative Information Post Operative Note Health Status Allergies: Allergic Reactions (All) No known allergies Problem list: All Problems Chronic sinusitis / SNOMED CT 45402593 / Confirmed Side effect of medication / SNOMED CT 950528083 / Confirmed Headache / SNOMED CT 18225454 / Confirmed Hypertension / SNOMED CT 9410901712 / Confirmed Ileus / SNOMED CT 2873911950 / Confirmed Migraine / SNOMED CT 87967945 / Confirmed Nausea / SNOMED CT 8006154559 / Confirmed Obesity / SNOMED CT 3755351800 / Confirmed GRACIE (obstructive sleep apnea) / SNOMED CT 626582919 / Confirmed Sleep apnea / SNOMED CT 599120636 / Confirmed Umbilical hernia / SNOMED CT 1662213779 / Confirmed Physical Examination Vital Signs (last [...] on: 02/21/2025 08:59 EDT] Eitan Ramírez MD [facility] Anesthesia Note Patient: RICCARDO HALE Age: 49 [...] All Problems Chronic sinusitis / SNOMED CT 96833873 / Confirmed Side effect of medication / SNOMED CT 384460876 / Confirmed Headache / SNOMED CT 62779782 / Confirmed Hypertension / SNOMED CT 0954208316 / Confirmed Ileus / SNOMED CT 5869981415 / Confirmed Migraine / SNOMED CT 64218458 / Confirmed Nausea / SNOMED CT 4422807529 / Confirmed Obesity / SNOMED CT 9968345877 / Confirmed GRACIE (obstructive sleep apnea) / SNOMED CT 475876395 / Confirmed Sleep apnea / SNOMED CT 560614110 / Confirmed Umbilical hernia / SNOMED CT 0652859420 / Confirmed Histories Family History: COPD - [...] 21:34) Review / Management Laboratory Results Plan [employer]hesi[employer] (ASA) physical status classification: Class III. Anesthetic Preoperative Plan Anesthesia: Monitored anesthesia care. Anesthetic plan, risks, benefits, and alternatives discussed with the patient and/or family. Patient verbalized understanding. [Electronically Signed on: 02/21/2025 07:31 EDT] Eitan Ramírez MD [Verified on: 02/21/2025 07:31 EDT] Eitan Ramírez MD [facility] Inpatient Patient Summaryon 02-21-2025 [place]patient [place] [address] Patient Discharge Instructions Name: RICCARDO HALE : 1975 Patient Address: [address] [place] [address] Primary Care Provider: Name: MILAN NAILS DO After you are discharged if you find you have any questions, please, call [phone] ext [phone] to speak to a nurse. Discharge Diagnosis: [...] alcohol and/or drug addiction problems; contact the [facility] 11/04 Crisis Hotline -Text 4HSGS yy 246607. If you received any narcotics, sedation, or [...] business decisions or sign any legal documents [facility] would like to thank you for allowing us to assist you with your healthcare needs. The following includes patient education materials and information regarding your injury/illness. RICCARDO HALE has been given the following list of follow-up instructions, prescriptions, and patient education materials: Follow-up Instructions With: Address: When: MILAN JAQUI With: Address: When: Martinez Gonzales [address] [place] [address], [place] [address] Business (1) , only if needed Medications [...] cap(s) Ora (more content not included)... Normal [facility] MAGR Intraoperative Recordon 02-21-2025 MAGR Intraoperative Record MAGR Intra-Op Record Summary Primary Physician: Martinez Gonzales MD Finalized Date/Time: 02/21/25 08:30:12 Pt. Name: RICCARDO HALE /Sex: 1975 MALE Med Rec #: [id number] Physician: Martinez Gonzales MD Financial #: [id number] Pt. Type: D Room/Bed: / Admit/Disch: 02/21/25 [...] Ramírez MD, Debra RN Radloff, Leigh-Ann CSFA [facility] Role Performed Anesthesiologist of Inhalation Therapy Aides Teacher Ice Cream Vault Worker Record Time In 02/21/25 08:03:00 02/21/25 08:03:00 [...] Ramírez MD, Jessica Arredondo RN, Melvin Causey [facility], Dale Rothman Last Modified By: Jessica Arredondo [...] RN Airway Maintenance (more content not included)... [facility] MAGR Postoperative Recordon 02-21-2025 MAGR Postoperative Record MAGR Phase II Record Summary Primary Physician: Martinez Gonzales MD Finalized Date/Time: 02/21/25 09:09:46 Pt. Name: RICCARDO HALE MARYSE LiconaB./Sex: 1975 MALE Med Rec #: [id number] Physician: Martinez Gonzales MD Financial #: [id number] Pt. Type: D Room/Bed: / Admit/Disch: 02/21/25 [...] Signed By: Elvira Hirsch RN 02/21/25 [facility]09 [facility] 02-21-2025 MAGR Preoperative Record MAGR Pre-Op Record Summary Primary Physician: Martinez Gonzales MD Finalized Date/Time: 02/21/25 08:05:28 Pt. Name: RICCARDO HALE /Sex: 1975 MALE Med Rec #: [id number] Physician: Martinez Gonzales MD Financial #: [id number] Pt. Type: D Room/Bed: / Admit/Disch: 02/21/25 [...] Signed By: Jessica Arredondo RN 02/21/25 08:05 [facility] Patient Handouton 02-21-2025 Patient Handout Gastroenterology Diverticulosis [...] exercise. ? You smoke. ? You take vaem-alu-vzxaehn pain medicines. ? You have a family [...] these instructions at home: Medicines ? Take oxdg-mns-lwftnsp and prescription medicines only as told by your provider. ? If told, take a fiber supplement or probiotic. Managing constipation Your condition may cause constipation. To prevent or treat constipation, you may need to: ? Drink enough fluid to keep your pee (urine) pale yellow. ? Take iseo-eiz-rugewor or prescription medicines. ? Eat foods that [...] provider. Document Revised: 06/02/2023 Document Reviewed: 06/02/2023 [employer] Patient Education ? 2023 [email or web address]. Radiology Colonoscopy, Adult, Care After The following [...] for 20?30 minutes (more content not included)... [facility] Outside Recordson 02-06-2025 Outside Records [id number]#[id number] [facility] Release of Informationon Release of Information [id number]#1.00 [facility] Coding Summaryon 11-26-2024 Coding Summary HTMLBase 64 StqujdnyDRg7qTj+PGhlYW Q+LC4LUSDvR71mgGLviV7h B1PFFGsGOtkhUHRABUpAFj XlrkYtQI3qbBStGVMf IC8+NU7lQEWdAnhlgXRkz1 X2aFX7J43xmj5xLXjpjXE2 OJLwEvWsyyerg5fjrYy5XM cuNmluOyBt MIBthG52YRX8vT29Bc32vN ScoZQut1fapUq2KoJnSEHt MMX2pAvgREwop9WiBULrP2 5yqJPtf2E9 KWCrxTalhVOfAmLlsAV0sA 5oSXvnzzwwk5kfjdevGgl2 dj98oHTza5Y6zTB5X4Tkyi K4ITAcdQRo NfylqKGEsP6jwnzne8fqqn rbHyDzNXBwNZv8EMe9ZHRg zWxlApEtRJ08JUN2JJVbwq QzX2JtFSQj nDmgQcQ7b5N6Su9HR9NBQx leU8BLZZPWBZrebHS+PC90 um13Y1WeGjivLqh2RLVzEQ B3nYN1tN9t GDGeNPims5J8yLR5V5Gjej Qlco3qm1pwSAEeMVypH41k yDQtp0S6ACGkrKZ2CZBddW wxGkClnN58 Oyc+WJVltBflx4UjQjkid7 ppp5ircPb1LffsTDJizuVr hJqjYFW3j6TuEk7aEPLioR X6mCO0dT5f VtCdArP6DMloQ582GoEmeT HfXdvzQ32iS3JomRR+PHRy Ngh8HPImiLnvRH0lO2LcIE RpbmctbGVm rHatRX2yGCYpwkcrLXJnnQ 5rPSBxE4h3ShZcVbG6ABza W2WfSEAvepvtRf07gZ8qQf IzSzY0TVir I0UcwdA1RZGfvFGsKArkQD S6D79ji1X6ATXpVLGfFUE3 iBT2sX5cxSxqywruaOSxhN sgdmVydGlj DCeuLGnhL968EARrsXkmZk NvZGluZyBEYXRlOiAgMDMv MTAvMjAyNTwvdGQ+PHRkIH Y9nVcxOXYk nYCzOFhuVp6hyKkniRxjOS 7dZOLpxssePEMofS7qYRWq iGQdeEdcKG4qIGAeghidn4 25RdBkUNP2 TEFnvSOoD7KseD5rWxPaKF AmWXIkZ5TgcUXcCCihS258 RJulZfV7RMKkvwOrP5JkRO FsaWduOiB0 a8B9Ky9Hu7WyusruN3SgdS BzVpRlCnjtKNi2B5LhHmcl dHI+UW09DMEfTJ97PBk4YA J2vOraEAid XFUaI4YwaG8nVbUtDXWaKP RkOyc+PHRhYmxlIHdpZHRo KAfoCKHgSeCaxEoiYG3wSl 9yZGVyLWNv vArxrTBiWvKvc7usDSZuOQ wiWC6fuHijE4NtmYE4USRj h1b0St05F64rL0CdvQC+PG McuGK5bGR9 jW8pWlBcUaQ5KFgdM415Hd JcmCKwNmdgg1mwj6kymAl2 QhE0IVPqtvIuaSqlHRX8p6 KeLn71U58f IHdpZHRoPSIxNSUiIHZhbG ujah7ckI9jNk6+PGNvbCB3 bKP5pZ1aJlIkEwR8BXaiS2 49InRvcCIv Wqxdh3fyb9gqbOq6TgTsKJ XxeaQobMetOVV6v7WaRz99 Q8RqyKdcn0FsOdr1tq15xB Mgu0H2bFF9 H9QeZMLwrbveoUCoaVwgKQ 6rDJHoprlwBBTrzD6mQVKs J7q6AmVnMoB3ZYsiI9Yoye W8UZDxxDLl CSYuiRUWyO6ciivdy3ebta ziGxMpYDMkXZa5BGf6OQDk pXvmUsDlDZR1FgW9VKP7iQ RcpJ1mnTuy meoaxW8tVua+FCZ7mZWpkL QKDW6nQanabMN+PHRkIHN0 eEwkQNvvPMXgvE4tFRBhP2 x6OoQxZvL2 PRywH1JizsG3BXYcxPMhJJ ZhwCNPdI4ifuore9ifuqvw VgVhZCTrZBi3GJi7IVElaO duOiBsZWZ0 YbG3TGH9aGJwpM9dgHyxwt skdW6gCbn+QmlydGggRGF0 ABr9G8TrDke6BXHyvUsbAO 0ncGFkZGlu Sh5qoLoziAhnFY3sSHHxqj fuo580XsDmf7wzPECaaZDc RYcuQXP9G81lp9Q0TBDaTN LeEGP9jYK4 rF5peZmghkqmvIPbvDdpgu GzyHgrQHgqVWneH962OSPx jWkbDuCxJVo3T2HnYpk2DK KiuIrvUP1l mQQuIImiIj1bbAbruUrbTH 9pDTIeqaklk901VrIxp4yh PSJnrKXwVFfpCMS8C26vp0 G4QMKdRKEc YUH2uYW1eG7jfVthutcidB VmdDsgdmVydGljYWwtYWxp O867KJGyxHqyXvYldWy9Y5 HpHoc3RROi xEutQM7fqKOfXEdoZx2nfA cccXblOK8fZVFowrsto692 RsCqg5grHPEceDZiGIvhQP A9Q42vq8K3 XAMiDHTiIXW5iDA3cS0avC lnbjogbGVmdDsgdmVydGlj ARmoKJruA703XRCnmYesYr BhdGllbnQg SDqnHZz6Z8MkYwzgyQC+PC 46CQUdWW19yGEteIGco3nc dLs7SbWsPIIbULE9bTuwMX bmt2NdCUAx F41hcHIte7X5KMZerJyjhF XqZzYrdXJ9hA9nMSpsukhm k7ccbvfmVozqe1nrtn22tE 97S71pZOhm ZHRoPSIzMCUiIHZhbGlnbj 6jzM8nMu5+OIDmoCZ6uUJ7 nO6bBFHzDxJ0LZbpO621Pa RvcCIvPjxj r5skk5ymgXr1AqZ1MLKggg ByvCdvIRU4m4RgSj02U53c IHdpZHRoPSIyMCUiIHZhbG ayad9zaF2n Ii8+XDNzqOC3lYH9jD7sBh UiEaZ3HUigH546WnSecWEo XcfsG11vV1QphOC+PHRyPj n4NNVuxXrn KP5rdGOoOOyjOu1qBPV3Zd YxZfZmJEaaU7KbKDRfibqz jtpqiCA3QABaTOJiyR64Vw 9udDogMTBw cEGAfM5zkwiys5qtlkhoWd WrRPElBBi8MFj3NUGdoOjl QdGrDIW1GbQ4UUG3dGHyhI 1hbGlnbjog sE5yC9OpLKUjqdxwUs75qF 3rRhUsCxK9MDsqYbd+U0VE LB8GJcirS1IQKSHSYBHMI9 FSRDwvdGQ+ FKRlRNZ8rUvxJFbzQAFyzX 8nWFCbK7c0KlXvMiH0FHej R3GcIPMblolyZq95gJ7zOf CwYbS1JAsv Y3PtjwZ2ZARnzTZxQCzzRD N2R58zt3O7UNFrOCVoIXV1 nWS4lB1jrNxtdbwmqLHwdQ sgdmVydGlj KYxeMZtmC029ZKMzxIglXm OgEkEaYdY3PfU5B0MpUcm7 OFUbvOleRV0xrZYzESgrZg 1yaWdodDog XY8vXTJhauafTECzmC5oSS VvgCGvzWgyHE5fWOBcsgrf h161IjUyKYD9VHJcdZSzB3 MfkZ0jNjVr NZNxQHMsT3DfyVMyOIbeN3 89IWxsOnD8EBUidpKhT1Np DRNfaPjkMjM8j6U2Po97IA BZZWFyczwv dGQ+OMWsTTS5uBilELqoAQ JcwW1qHOGnJ0z2CtEsPmO2 TXnfH4AnSZAfwhcqCg26aY 0eEfDhDcJ2 OTwdJ3VwgdX6QKImuCAbGW ofKER0T16jp6I1APFmSXNy KZJ3iCY2aR3urWnacvscrB VmdDsgdmVy iOwvHOcaVKxtV146GQMegJ txOa2SIJS5O0FhEuw8ERYj bEwmND8emZWjJMwcWh6ncO qevZylXJ1t LBYvmrtsQHIbmQ6tJRQgoS TfjVfuAC4nLOAjdhrte726 IuRkDAL6XTTiaHPkL0RoiW 9yOiAjMDAw BBEkE2HjjEDnJMqhD056LX hvHiL0VXIeokYuZ9RbSMMa bEnpHaQ0d2D7Fz5WQXhoxR Q+BY10bb40 C6LlAtziAnc9IKLcWFJ7hW M7jY9tEFOqGBfxo1G1bIS3 J8WzcvCexm6zm2dfPISjSJ hlN31mrDHd e1L9CJEtaAX8PLDymOshSj TawR01Tli+VTYztBiix4Kd Layjs5kzw6svhEl2RjVsMQ IgdmFsaWdu AVL4y3VvUk93L19tZKwxGR VsGSVaGDYeLYZylCyxyl9v eL1lLd0+IOYpuLP5aLX4rN 1hUhVyAyE2 TIouP178WaVkxGIvMmtyg8 azd2zemEf6CmUdADSholOw eVpwICV6s0HtGt19I3NbxX nfb1YpQfn5 qf23lVKfe6C6nNH1X4OcTI LpdtpegIBtbYsxNC8hTFUb rcmdASAnoA0eTZFzS8a3Ku JuOvO9WUfh T1JtarS4GRFddOJaTVZgaC PMhJ4ojzmac7smtzjpVkTx LNCsXVj6UXk5KKShpMpcBj BdDLI0MgG9 FJP0yJBnyW2ciIdlierexX 9wOyc+WLr1r8bzkHHeJK5g wAG7NY47EZ91gPVvj0V6sK R1O2LjLRGm zfyqsbqdrRG6XBUtKAMacQ 43Qe8zbCdpRc8dAYMdYLA0 AWTwvFIoG1NgyT2fGxVnXY JmOIXcA7Ka cGTbCOrfV500FIcrZcV3YH SsgnOeR2MvXRWhcZqsKqU2 n9V4Kq0XAO36AS40XR55vU Gty7D7bDB3 P3HtMAKqzqtqobzfnNL2JD WaXPUikR57Ni3mgFviEq2j JFEgCZR4KEVrhPMgQ8QbeZ 9yOiAjMDAw DXOzA9JkfPVzICbeZ042PK mgDiO3FUFdhzSeF2MqBBBk cRzmZmZ4y7Z0Wz8LQn95QK 45CR26uSSw v4T9pQY7N4BuHAFeamilsy gipKT5GHYdWVOqqH19Ci8x vUnaPd4cURChSBT9SQItrA QoU3WlxS6z OkHdFMHeAYIsR7GzhKEaNS yiV642OFtzVoQ3XRLzqfHj F3AsUBKplDqcIbQ6i8W5Yz 7ORHrirau1 O1MyGdsnmRE+WY07AGAbRG 21dZAbmVLva7mhdBh0ZbMm WHXcRLH9mImaZFcgi8DzHF NuF27ysUPo c2U (more content not included)... [facility] Reminder Messageson 11-20-19 25 Reminder Messages - From: MILAN NAILS DO To: [facility] Clinical Pool ([facility] [place] Sent: 11/19/2024 07:59:43 EST ! Show up: 11/19/2024 07:59:43 EST Subject: Results Follow Up Actions: Call the patient with result(s) Due Date/Time: 11/20/2024 07:59:00 EST Reminder Comments: cysts seen in both maxillary sinuses. suggest ent referral Results: Date Result Type Result Name 11/16/2024 9:[address] Sinus w/o Contrast Order placed [facility] Outside Recordson 11-08-2024 Outside Records [id number]#1.0 0OTGTIFF [facility] Outside Recordson 08-09-2024 Outside Records [id number]#1. 00OTGTIFF [facility] CBC AND AUTO DIFFon 07-27-20 24 ABSOLUTE BASOPHIL 0.1 X10E9/L Normal 0.0-0.2 [facility] Comment on above: Performed By: #### C JAVIER, [facility], 3040-3 #### [facility] ([id number]) [address] [place] [address], [place] [address] ABSOLUTE NEUTROPHIL 5.7 X10E9/L Normal 1.5-6.6 [facility] Comment on above: Performed By: #### C ANTONIETTA HERRERA, 3039-11 #### [facility] ([id number]) [address] [place] [address] 81600 Basophils/100 WBC (Bld) 0.6 % Normal [facility] Comment on above: Performed By: #### Yousif HERRERA CMP, 3039-11 #### [facility] ([id number]) [address] [place] [address]20 Eosinophils (Bld) [#/Vol] 0.2 10*3/uL Normal 0.0-0.4 [facility] Comment on above: Performed By: #### Yousif HERRERA CMP, 3039-11 #### [facility] ([id number]) [address] [place] [address] 58957 Eosinophils/100 WBC (Bld) 2.4 % Normal [facility] Comment on above: Performed By: #### Yousif HERRERA CMP, 3039-11 #### [facility] ([id number]) [address] [place] [address] 02404 Erythrocyte distribution width (RBC) [Ratio] 12.8 % Normal 11.5-15.0 [facility] Comment on above: Performed By: #### Yousif HERRERA CMP, 3039-11 #### [facility] ([id number]) [address] [place] [address] 21406 Hematocrit (Bld) [Volume fraction] 40.2 % Normal 39-49 [facility] Comment on above: Performed By: #### Yousif HERRERA CMP, 3039-11 #### [facility] ([id number]) [address] [place] [address] 91899 Hemoglobin (Bld) [Mass/Vol] 13.4 g/dL Normal 13.0-17.0 [facility] Comment on above: Performed By: #### Yousif HERRERA CMP, 3 #### [facility] ([id number]) [address] [place] [address] 70112 Lymphocytes (Bld) [#/Vol] 2.5 10*3/uL Normal 1.0-3.5 [facility] Comment on above: Performed By: #### Yousif HERRERA CMP, 3039-3 #### [facility] ([id number]) [address] [place] [address] 31089 Lymphocytes/100 WBC (Bld) 26.9 % Normal [facility] Comment on above: Performed By: #### Yousif HERRERA CMP, 3 #### [facility] ([id number]) [address] [place] [address] 92645 MCH (RBC) [Entitic mass] 28.9 pg Normal 27-34 [facility] Comment on above: Performed By: #### Yousif HERRERA CMP, 3 #### [facility] ([id number]) [address] [place] [address] 05926 MCHC (RBC) [Mass/Vol] 33.4 g/dL Normal 32-36 [facility] Comment on above: Performed By: #### Yousif HERRERA [facility], 3 #### [facility] ([id number]) [address] [place] [address] 65591 MCV (RBC) [Entitic vol] 87 fL Normal 80-100 [facility] Comment on above: Performed By: #### Yousif HERRERA CMP, 3 #### [facility] ([id number]) [address] [place] [address] 28121 Monocytes (Bld) [#/Vol] 0.9 10*3/uL Normal 0-0.9 [facility] Comment on above: Performed By: #### Yousif HERRERA CMP, 3039-3 #### [facility] ([id number]) [address] [place] [address] 17257 Monocytes/100 WBC (Bld) 9.2 % Normal [facility] Comment on above: Performed By: #### Yousif HERRERA CMP, 3040-3 #### [facility] ([id number]) [address] [place] [address] 07133 Neutrophils/100 WBC (Bld) 60.9 % Normal [facility] Comment on above: Performed By: #### Yousif HERRERA CMP, 3039-3 #### [facility] ([id number]) [address] [place] [address] 02172 Platelet mean volume (Bld) [Entitic vol] 8.7 fL Normal 7-12 [facility] Comment on above: Performed By: #### Yousif HERRERA CMP, 0-3 #### [facility] ([id number]) [address] [place] [address] 44443 Platelets (Bld) [#/Vol] 351 10*3/uL Normal 150-450 [facility] Comment on above: Performed By: #### Yousif HERRERA CMP, 3039-3 #### [facility] ([id number]) [address] [place] [address] 84171 RBC COUNT 4.64 X10E12/L Normal 4.10-5.70 [facility] Comment on above: Performed By: #### Yousif HERRERA CMP, 0-3 #### [facility] ([id number]) [address] [place] [address] 24033 WBC (Bld) [#/Vol] 9.3 10*3/uL Normal 4.0-11.0 [facility] Comment on above: Performed By: #### Yousif HERRERA CMP, 3039-3 #### [facility] ([id number]) [address] [place] [address] 11155 COMPREHENSIVE METABOLIC PANE Brian 07-27-2024 Albumin [Mass/Vol] 3.8 g/dL Normal 3.2-5.3 [facility] Comment on above: Performed By: #### C BCA, CMP, 3039-3 #### [facility] ([id number]) [address] [place] [address] 68877 ALP [Catalytic activity/Vol] 53 U/L Normal 39-130 [facility] Comment on above: Performed By: #### C BCA, CMP, 3039-3 #### [facility] ([id number]) [address] [place] [address] 88263 ALT [Catalytic activity/Vol] 16 U/L Normal 0-40 [facility] Comment on above: Performed By: #### C BCA, CMP, 3039-3 #### [facility] ([id number]) [address] [place] [address] 31016 Anion gap [Moles/Vol] 9 mmol/L Normal 5-15 [facility] Comment on above: Performed By: #### C BCA, CMP, 3039-3 #### [facility] ([id number]) [address] [place] [address] 96604 AST [Catalytic activity/Vol] 15 U/L Normal 0-41 [facility] Comment on above: Performed By: #### C BCA, CMP, 3039-3 #### [facility] [facility] ([id number]) [address] [place] [address] 96551 Bilirubin [Mass/Vol] 1.0 mg/dL Normal 0.3-1.2 [facility] Comment on above: Performed By: #### C BCA, CMP, 3039-3 #### [facility] ([id number]) [address] [place] [address] 32816 Calcium [Mass/Vol] 8.8 mg/dL Normal 8.5-10.5 [facility] Comment on above: Performed By: #### C BCA, CMP, 3039-3 #### [facility] ([id number]) [address] [place] [address] 62368 Chloride [Moles/Vol] 106 mmol/L Normal 98-109 [facility] Comment on above: Performed By: #### C ANTONIETTA HERRERA, 3040-3 #### [facility] ([id number]) [address] [place] [address] 56052 CO2 [Moles/Vol] 25 mmol/L Normal 22-32 [facility] Comment on above: Performed By: #### C ANTONIETTA HERRERA, 3039-3 #### [facility] ([id number]) [address] [place] [address] 11961 Creatinine [Mass/Vol] 0.83 mg/dL Normal 0.70-1.20 [facility] Comment on above: Result Comment: METH OD TRACEABLE TO IDMS STANDARD Performed By: #### Yousif HERRERA CMP, 3 #### [facility] ([id number]) [address] [place] [address] 02968 eGFR (CKD-EPI) NON-RACE DEPENDENT >90 Normal >59 [facility] Comment on above: Result Comment: Reported eGFR is based on the CKD-EPI 1 equation that does not use a race coefficient. Performed By: #### Yousif HERRERA CMP, 3040-3 #### [facility] ([id number]) [address] [place] [address] 41646 Glucose [Mass/Vol] 103 mg/dL High 65-99 [facility] Comment on above: Performed By: #### Yousif HERRERA CMP, 3039-3 #### [facility] ([id number]) [address] [place] [address] 29226 Potassium [Moles/Vol] 4.3 mmol/L Normal 3.5-5.0 [facility] Comment on above: Performed By: #### Yousif HERRERA CMP, 3039-3 #### [facility] ([id number]) [address] [place] [address] 82647 Protein [Mass/Vol] 6.3 g/dL Normal 6.0-8.0 [facility] Comment on above: Performed By: #### C JAVIER, CMP, 0-3 #### [facility] ([id number]) [address] [place] [address] 40612 Sodium [Moles/Vol] 140 mmol/L Normal 134-146 [facility] Comment on above: Performed By: #### C BCA, CMP, 3039-3 #### [facility] ([id number]) [address] [place] [address] 22921 Urea nitrogen [Mass/Vol] 5 mg/dL Normal 5-23 [facility] Comment on above: Performed By: #### Yousif HERRERA, CMP, 3039-3 #### [facility] ([id number]) [address] [place] [address] 60654 MAGNESIUMon 07-27-2024 Magnesium [Mass/Vol] 2.1 mg/dL Normal 1.8-2.6 [facility] Comment on above: Performed By: #### C BCA, CMP, 3039-3 #### [facility] ([id number]) [address] [place] [address] 31464 CBC AND AUTO DIFFon 07-26-20 ABSOLUTE BASOPHIL 0.0 X10E9/L Normal 0.0-0.2 [facility] Comment on above: Performed By: #### C BCA, CMP, 0-3 #### [facility] ([id number]) [address] [place] [address] 60706 ABSOLUTE NEUTROPHIL 5.6 X10E9/L Normal 1.5-6.6 [facility] Comment on above: Performed By: #### C BCA, CMP, 0-3 #### [facility] ([id number]) [address] [place] [address] 87457 Basophils/100 WBC (Bld) 0.5 % Normal [facility] Comment on above: Performed By: #### Yousif HERRERA CMP, 3 #### [facility] ([id number]) [address] [place] [address] 39189 Eosinophils (Bld) [#/Vol] 0.3 10*3/uL Normal 0.0-0.4 [facility] Comment on above: Performed By: #### Yousif HERRERA CMP, 3039-11 #### [facility] ([id number]) [address] [place] [address] 46481 Eosinophils/100 WBC (Bld) 3.7 % Normal [facility] Comment on above: Performed By: #### Yosuif HERRERA CMP, 3039-11 #### [facility] ([id number]) [address] [place] [address] 74744 Erythrocyte distribution width (RBC) [Ratio] 12.7 % Normal 11.5-15.0 [facility] Comment on above: Performed By: #### Yousif HERRERA CMP, 3039-11 #### [facility] ([id number]) [address] [place] [address] 40956 Hematocrit (Bld) [Volume fraction] 41.7 % Normal 39-49 [facility] Comment on above: Performed By: #### Yousif HERRERA CMP, 3039-11 #### [facility] ([id number]) [address] [place] [address] 06117 Hemoglobin (Bld) [Mass/Vol] 14.4 g/dL Normal 13.0-17.0 [facility] Comment on above: Performed By: #### Yousif HERRERA CMP, 3039-11 #### [facility] ([id number]) [address] [place] [address] 00117 Lymphocytes (Bld) [#/Vol] 2.2 10*3/uL Normal 1.0-3.5 [facility] Comment on above: Performed By: #### Yousif HERRERA CMP, 3039-3 #### [facility] ([id number]) [address] [place] [address] 95937 Lymphocytes/100 WBC (Bld) 25.4 % Normal [facility] Comment on above: Performed By: #### Yousif HERRERA CMP, 3 #### [facility] ([id number]) [address] [place] [address] 21766 MCH (RBC) [Entitic mass] 29.7 pg Normal 27-34 [facility] Comment on above: Performed By: #### Yousif HERRERA CMP, 3039-11 #### [facility] ([id number]) [address] [place] [address] 67134 MCHC (RBC) [Mass/Vol] 34.5 g/dL Normal 32-36 [facility] Comment on above: Performed By: #### Yousif HERRERA CMP, 3039-11 #### [facility] ([id number]) [address] [place] [address] 30309 MCV (RBC) [Entitic vol] 86 fL Normal 80-100 [facility] Comment on above: Performed By: #### Yousif HERRERA CMP, 3039-11 #### [facility] ([id number]) [address] [place] [address] 57177 Monocytes (Bld) [#/Vol] 0.7 10*3/uL Normal 0-0.9 [facility] Comment on above: Performed By: #### Yousif HERRERA CMP, 3 #### [facility] ([id number]) [address] [place] [address] 93061 Monocytes/100 WBC (Bld) 7.4 % Normal [facility] Comment on above: Performed By: #### Yousif HERRERA CMP, 3 #### [facility] ([id number]) [address] [place] [address] 26131 Neutrophils/100 WBC (Bld) 63.0 % Normal [facility] Comment on above: Performed By: #### Yousif HERRERA CMP, 3039-3 #### [facility] ([id number]) [address] [place] [address] 29273 Platelet mean volume (Bld) [Entitic vol] 8.6 fL Normal 7-12 [facility] Comment on above: Performed By: #### Yousif HERRERA, CMP, 3039-3 #### [facility] ([id number]) [address] [place] [address] 94045 Platelets (Bld) [#/Vol] 345 10*3/uL Normal 150-450 [facility] Comment on above: Performed By: #### Yousif HERRERA, CMP, 3039-3 #### [facility] ([id number]) [address] [place] [address] 67431 RBC COUNT 4.84 X10E12/L Normal 4.10-5.70 [facility] Comment on above: Performed By: #### Yousif HERRERA, CMP, 3 #### [facility] ([id number]) [address] [place] [address] 32693 WBC (Bld) [#/Vol] 8.8 10*3/uL Normal 4.0-11.0 [facility] Comment on above: Performed By: #### Yousif BCA, CMP, 3039-3 #### [facility] ([id number]) [address] [place] [address] 58506 COMPREHENSIVE METABOLIC PANE Brian 07-26-2024 Albumin [Mass/Vol] 3.9 g/dL Normal 3.2-5.3 [facility] Comment on above: Performed By: #### Yousif HERRERA, CMP, 3039-3 #### [facility] ([id number]) [address] [place] [address] 35614 ALP [Catalytic activity/Vol] 57 U/L Normal 39-130 [facility] Comment on above: Performed By: #### C ANTONIETTA HERRERA, 3039-3 #### [facility] ([id number]) [address] [place] [address] 03709 ALT [Catalytic activity/Vol] 21 U/L Normal 0-40 [facility] Comment on above: Performed By: #### C JAVIER, CMP, 3 #### [facility] ([id number]) [address] [place] [address] 33940 Anion gap [Moles/Vol] 9 mmol/L Normal 5-15 [facility] Comment on above: Performed By: #### Yousif HERRERA CMP, 3 #### [facility] ([id number]) [address] [place] [address] 78488 AST [Catalytic activity/Vol] 18 U/L Normal 0-41 [facility] Comment on above: Performed By: #### Yousif HERRERA CMP, 3 #### [facility] ([id number]) [address] [place] [address] 69423 Bilirubin [Mass/Vol] 0.9 mg/dL Normal 0.3-1.2 [facility] Comment on above: Performed By: #### Yousif HERRERA CMP, 3 #### [facility] ([id number]) [address] [place] [address] 33556 Calcium [Mass/Vol] 8.8 mg/dL Normal 8.5-10.5 [facility] Comment on above: Performed By: #### C JAVIER, CMP, 3039-3 #### [facility] ([id number]) [address] [place] [address] 10754 Chloride [Moles/Vol] 106 mmol/L Normal 98-109 [facility] Comment on above: Performed By: #### C ANTONIETTA HERRERA, 3039-3 #### [facility] ([id number]) [address] [place] [address] 27033 CO2 [Moles/Vol] 23 mmol/L Normal 22-32 [facility] Comment on above: Performed By: #### C ANTONIETTA HERRERA, 3039-3 #### [facility] ([id number]) [address] [place] [address] 55303 Creatinine [Mass/Vol] 0.80 mg/dL Normal 0.70-1.20 [facility] Comment on above: Result Comment: METH OD TRACEABLE TO IDMS STANDARD Performed By: #### C ANTONIETTA HERRERA, 3039-11 #### [facility] ([id number]) [address] [place] [address] 83281 eGFR (CKD-EPI) NON-RACE DEPENDENT >90 Normal >59 [facility] Comment on above: Result Comment: Reported eGFR is based on the CKD-EPI 2020 equation that does not use a race coefficient. Performed By: #### C ANTONIETTA HERRERA, 3 #### [facility] ([id number]) [address] [place] [address] 04818 Glucose [Mass/Vol] 83 mg/dL Normal 65-99 [facility] Comment on above: Performed By: #### C ANTONIETTA HERRERA, 3 #### [facility] ([id number]) [address] [place] [address] 73828 Potassium [Moles/Vol] 3.4 mmol/L Low 3.5-5.0 [facility] Comment on above: Performed By: #### C ANTONIETTA HERRERA, 3 #### [facility] ([id number]) [address] [place] [address] 25371 Protein [Mass/Vol] 6.6 g/dL Normal 6.0-8.0 [facility] Comment on above: Performed By: #### C ANTONIETTA HERRERA, 0-3 #### [facility] ([id number]) [address] [place] [address] 12238 Sodium [Moles/Vol] 138 mmol/L Normal 134-146 [facility] Comment on above: Performed By: #### Yousif HERRERA CMP, 3039-3 #### [facility] ([id number]) [address] [place] [address] 12484 Urea nitrogen [Mass/Vol] 8 mg/dL Normal 5-23 [facility] Comment on above: Performed By: #### Yousif HERRERA CMP, 3039-3 #### [facility] ([id number]) [address] [place] [address] 74761 MAGNESIUMon 07-26-2024 Magnesium [Mass/Vol] 2.0 mg/dL Normal 1.8-2.6 [facility] Comment on above: Performed By: #### Yousif HERRERA CMP, 3039-3 #### [facility] ([id number]) [address] [place] [address] 16188 POTASSIUMon 07-26-2024 Potassium [Moles/Vol] 3.3 mmol/L Low 3.5-5.0 [facility] Comment on above: Performed By: #### Yousif HERRERA CMP, 3039-3 #### [facility] ([id number]) [address] [place] [address] 69656 Potassium [Moles/Vol] 3.1 mmol/L Low 3.5-5.0 [facility] Comment on above: Performed By: #### Yousif HERRERA CMP, 3039-3 #### [facility] ([id number]) [address] [place] [address] 29600 XR ABDOMEN AP 1 VWon 024 XR [...] Valenzuela MD on 07/26/2024 8:55 AM Normal [facility] CBC AND AUTO DIFFon 07-25-20 ABSOLUTE BASOPHIL 0.1 X10E9/L Normal 0.0-0.2 [facility] Comment on above: Performed By: #### C JAVIER [facility], 74711-9 #### [facility] ([id number]) [address] [place] [address] 98266 ABSOLUTE NEUTROPHIL 4.3 X10E9/L Normal 1.5-6.6 [facility] Comment on above: Performed By: #### Yousif HERRERA [facility], 18617-0 #### [facility] ([id number]) [address] [place] [address] 86374 Basophils/100 WBC (Bld) 0.7 % Normal [facility] Comment on above: Performed By: #### Yousif HERRERA [facility], 84017-1 #### [facility] ([id number]) [address] [place] [address] 63585 Eosinophils (Bld) [#/Vol] 0.4 10*3/uL Normal 0.0-0.4 [facility] Comment on above: Performed By: #### Yousif HERRERA [facility], 59556-9 #### [facility] ([id number]) [address] [place] [address] 76584 Eosinophils/100 WBC (Bld) 4.5 % Normal [facility] Comment on above: Performed By: #### Yousif HERRERA [facility], 60212-5 #### [facility] ([id number]) [address] [place] [address] 56358 Erythrocyte distribution width (RBC) [Ratio] 12.9 % Normal 11.5-15.0 [facility] Comment on above: Performed By: #### C ANTONIETTA HERRERA, #### [facility] ([id number]) [address] [place] [address] 00678 Hematocrit (Bld) [Volume fraction] 40.5 % Normal 39-49 [facility] Comment on above: Performed By: #### Yousif HERRERA CMP, #### [facility] ([id number]) [address] [place] [address] 04045 Hemoglobin (Bld) [Mass/Vol] 13.8 g/dL Normal 13.0-17.0 [facility] Comment on above: Performed By: #### Yousif HERRERA CMP, #### [facility] ([id number]) [address] [place] [address] 94638 Lymphocytes (Bld) [#/Vol] 2.7 10*3/uL Normal 1.0-3.5 [facility] Comment on above: Performed By: #### Yousif HERRERA CMP, #### [facility] ([id number]) [address] [place] [address] 03060 Lymphocytes/100 WBC (Bld) 32.2 % Normal [facility] Comment on above: Performed By: #### Yousif HERRERA CMP, #### [facility] ([id number]) [address] [place] [address] 83744 MCH (RBC) [Entitic mass] 29.5 pg Normal 27-34 [facility] Comment on above: Performed By: #### Yousif HERRERA CMP, #### [facility] ([id number]) [address] [place] [address] 44135 MCHC (RBC) [Mass/Vol] 34.0 g/dL Normal 32-36 [facility] Comment on above: Performed By: #### Yousif HERRERA CMP, #### [facility] ([id number]) [address] [place] [address] 87034 MCV (RBC) [Entitic vol] 87 fL Normal 80-100 [facility] Comment on above: Performed By: #### Yousif HERRERA CMP, 51447-6 #### [facility] ([id number]) [address] [place] [address] 65702 Monocytes (Bld) [#/Vol] 1.0 10*3/uL High 0-0.9 [facility] Comment on above: Performed By: #### Yousif HERRERA CMP, #### [facility] ([id number]) [address] [place] [address] 37959 Monocytes/100 WBC (Bld) 11.8 % Normal [facility] Comment on above: Performed By: #### Yousif HERRERA CMP, #### [facility] ([id number]) [address] [place] [address] 27141 Neutrophils/100 WBC (Bld) 50.8 % Normal [facility] Comment on above: Performed By: #### Yousif HERRERA [facility], #### [facility] ([id number]) [address] [place] [address] 50063 Platelet mean volume (Bld) [Entitic vol] 8.6 fL Normal 7-12 [facility] Comment on above: Performed By: #### Yousif HERRERA CMP, #### [facility] ([id number]) [address] [place] [address] 08398 Platelets (Bld) [#/Vol] 355 10*3/uL Normal 150-450 [facility] Comment on above: Performed By: #### Yousif HERRERA CMP, #### [facility] ([id number]) [address] [place] [address] 73933 RBC COUNT 4.67 X10E12/L Normal 4.10-5.70 [facility] Comment on above: Performed By: #### C JAVIER CMP, 66003-5 #### [facility] ([id number]) [address] [place] [address] 85061 WBC (Bld) [#/Vol] 8.4 10*3/uL Normal 4.0-11.0 [facility] Comment on above: Performed By: #### C JAVIER, CMP, 76614-3 #### [facility] ([id number]) [address] [place] [address] 02528 COMPREHENSIVE METABOLIC PANE Brian 07-25-2024 Albumin [Mass/Vol] 3.7 g/dL Normal 3.2-5.3 [facility] Comment on above: Performed By: #### C JAVIER, CMP, 13131-7 #### [facility] ([id number]) [address] [place] [address] 12197 ALP [Catalytic activity/Vol] 56 U/L Normal 39-130 [facility] Comment on above: Performed By: #### C JAVIER, CMP, 14493-4 #### [facility] ([id number]) [address] [place] [address] 64738 ALT [Catalytic activity/Vol] 21 U/L Normal 0-40 [facility] Comment on above: Performed By: #### C JAVIER CMP, 27672-5 #### [facility] ([id number]) [address] [place] [address] 95302 Anion gap [Moles/Vol] 5 mmol/L Normal 5-15 [facility] Comment on above: Performed By: #### C BCA, CMP, 79785-7 #### [facility] ([id number]) [address] [place] [address] 39258 AST [Catalytic activity/Vol] 16 U/L Normal 0-41 [facility] Comment on above: Performed By: #### C JAVIER [facility], 72483-5 #### [facility] ([id number]) [address] [place] [address] 24471 Bilirubin [Mass/Vol] 0.8 mg/dL Normal 0.3-1.2 [facility] Comment on above: Performed By: #### C JAVIER [facility], #### [facility] ([id number]) [address] [place] [address] 63102 Calcium [Mass/Vol] 8.4 mg/dL Low 8.5-10.5 [facility] Comment on above: Performed By: #### C JAVIER [facility], #### [facility] ([id number]) [address] [place] [address] 49022 Chloride [Moles/Vol] 110 mmol/L High 98-109 [facility] Comment on above: Performed By: #### C JAVIER [facility], 53660-9 #### [facility] ([id number]) [address] [place] [address] 88589 CO2 [Moles/Vol] 23 mmol/L Normal 22-32 [facility] Comment on above: Performed By: #### Yousif HERRERA [facility], 25121-6 #### [facility] ([id number]) [address] [place] [address] 87963 Creatinine [Mass/Vol] 0.94 mg/dL Normal 0.70-1.20 [facility] Comment on above: Result Comment: METH OD TRACEABLE TO IDMS STANDARD Performed By: #### C JAVIER [facility], 80652-5 #### [facility] ([id number]) [address] [place] [address] 34462 eGFR (CKD-EPI) NON-RACE DEPENDENT >90 Normal >59 [facility] Comment on above: Result Comment: Reported eGFR is based on the CKD-EPI 2020 equation that does not use a race coefficient. Performed By: #### C BCA, CMP, 17536-6 #### [facility] ([id number]) [address] [place] [address] 35717 Glucose [Mass/Vol] 102 mg/dL High 65-99 [facility] Comment on above: Performed By: #### C BCA, [facility], 54742-5 #### [facility] ([id number]) [address] [place] [address] 59267 Potassium [Moles/Vol] 3.6 mmol/L Normal 3.5-5.0 [facility] Comment on above: Performed By: #### C BCA, [facility], 42629-8 #### [facility] ([id number]) [address] [place] [address] 61495 Protein [Mass/Vol] 6.3 g/dL Normal 6.0-8.0 [facility] Comment on above: Performed By: #### C BCA, [facility], 60012-2 #### [facility] ([id number]) [address] [place] [address] 98300 Sodium [Moles/Vol] 138 mmol/L Normal 134-146 [facility] Comment on above: Performed By: #### C BCA, [facility], 32459-7 #### [facility] ([id number]) [address] [place] [address] 50815 Urea nitrogen [Mass/Vol] 12 mg/dL Normal 5-23 [facility] Comment on above: Performed By: #### C BCA, [facility], 76667-3 #### [facility] ([id number]) [address] [place] [address] ABDOMEN AND PELVIS W CONT on [...] Findings Committee. J Am Ag Radiol. 2017 Apr;14(8):8607-[address] scans at this facility use dose modulation, iterative reconstruction, and/or weight based dosing when appropriate to reduce radiation dose to as low as reasonably achievable. Finalized by Bam Camejo MD on 07/25/2024 10:48 AM Normal [facility] Glucose Glucometer (BldC) [M ass/Vol]on 07-25-2024 Glucose [Mass/Vol] 76 mg/dL Normal 65-99 [facility] MAGNESIUMon 07-25-2024 Magnesium [Mass/Vol] 1.9 mg/dL Normal 1.8-2.6 [facility] Comment on above: Performed By: #### C ANTONIETTA HERRERA, 67068-7 #### [facility] ([id number]) [address] [place] [address], [place] [address] XR CHEST 1 VWon 07-25-2024 XR CHEST [...] extends below the diaphragm and off the [id number]. IMPRESSION: 1. No acute cardiopulmonary disease. 2. Moderate-sized hiatal hernia. There is a gastric tube with the tip extending below the diaphragm and off the [id number]. Finalized by Francisco Bangura MD on 07/25/2024 5:24 PM Normal [facility] XR CHEST 1 VW XR CHEST [...] Carlisle MD on 07/25/2024 3:36 PM Normal [facility] CBC AND AUTO DIFFon 07-24-20 ABSOLUTE BASOPHIL 0.1 X10E9/L Normal 0.0-0.2 [facility] Comment on above: Performed By: #### C ANTONIETTA HERRERA, 3039-3 #### [facility] ([id number]) [address] [place] [address] 44723 ABSOLUTE NEUTROPHIL 7.3 X10E9/L High 1.5-6.6 [facility] Comment on above: Performed By: #### C JAVIER, CMP, 3039-3 #### [facility] ([id number]) [address] [place] [address] 92813 Basophils/100 WBC (Bld) 1.0 % Normal [facility] Comment on above: Performed By: #### Yousif HERRERA CMP, 3 #### [facility] ([id number]) [address] [place] [address] 75336 Eosinophils (Bld) [#/Vol] 0.3 10*3/uL Normal 0.0-0.4 [facility] Comment on above: Performed By: #### Yousif HERRERA [facility], 3 #### [facility] ([id number]) [address] [place] [address] 83808 Eosinophils/100 WBC (Bld) 2.5 % Normal [facility] Comment on above: Performed By: #### Yousif HERRERA CMP, 3 #### [facility] ([id number]) [address] [place] [address] 15802 Erythrocyte distribution width (RBC) [Ratio] 13.0 % Normal 11.5-15.0 [facility] Comment on above: Performed By: #### Yousif HERRERA, CMP, 3039-11 #### [facility] ([id number]) [address] [place] [address] 14718 Hematocrit (Bld) [Volume fraction] 47.6 % Normal 39-49 [facility] Comment on above: Performed By: #### Yousif HERRERA, CMP, 3039-3 #### [facility] ([id number]) [address] [place] [address] [place] [address] Hemoglobin (Bld) [Mass/Vol] 16.2 g/dL Normal 13.0-17.0 [facility] Comment on above: Performed By: #### Yousif HERRERA CMP, 3039-3 #### [facility] ([id number]) [address] [place] [address] 86933 Lymphocytes (Bld) [#/Vol] 2.1 10*3/uL Normal 1.0-3.5 [facility] Comment on above: Performed By: #### Yousif HERRERA [facility], 3039-11 #### [facility] ([id number]) [address] [place] [address] 74235 Lymphocytes/100 WBC (Bld) 19.2 % Normal [facility] Comment on above: Performed By: #### Yousif HERRERA CMP, 3039-11 #### [facility] ([id number]) [address] [place] [address] 01647 MCH (RBC) [Entitic mass] 29.4 pg Normal 27-34 [facility] Comment on above: Performed By: #### Yousif HERRERA [facility], 3039-11 #### [facility] ([id number]) [address] [place] [address] 55676 MCHC (RBC) [Mass/Vol] 34.0 g/dL Normal 32-36 [facility] Comment on above: Performed By: #### Yousif HERRERA CMP, 3039-11 #### [facility] ([id number]) [address] [place] [address] 31103 MCV (RBC) [Entitic vol] 86 fL Normal 80-100 [facility] Comment on above: Performed By: #### Yousif HERRERA CMP, 3039-11 #### [facility] ([id number]) [address] [place] [address] 88872 Monocytes (Bld) [#/Vol] 1.3 10*3/uL High 0-0.9 [facility] Comment on above: Performed By: #### Yousif HERRERA CMP, 3039-3 #### [facility] ([id number]) [address] [place] [address] 87246 Monocytes/100 WBC (Bld) 11.6 % Normal [facility] Comment on above: Performed By: #### Yousif HERRERA CMP, 3039-3 #### [facility] ([id number]) [address] [place] [address] 90522 Neutrophils/100 WBC (Bld) 65.7 % Normal [facility] Comment on above: Performed By: #### Yousif HERRERA CMP, 3 #### [facility] ([id number]) [address] [place] [address]117 Platelet mean volume (Bld) [Entitic vol] 8.4 fL Normal 7-12 [facility] Comment on above: Performed By: #### Yousif HERRERA CMP, 3039-3 #### [facility] ([id number]) [address] [place] [address] 71518 Platelets (Bld) [#/Vol] 470 10*3/uL High 150-450 [facility] Comment on above: Performed By: #### Yousif HERRERA CMP, 3 #### [facility] ([id number]) [address] [place] [address] 73840 RBC COUNT 5.52 X10E12/L Normal 4.10-5.70 [facility] Comment on above: Performed By: #### Yousif HERRERA CMP, 3039-3 #### [facility] ([id number]) [address] [place] [address] 70955 WBC (Bld) [#/Vol] 11.1 10*3/uL High 4.0-11.0 [facility] Comment on above: Performed By: #### Yousif HERRERA CMP, 3039-3 #### [facility] ([id number]) [address] [place] [address] 86114 COMPREHENSIVE METABOLIC PANE Brian 07-24-2024 Albumin [Mass/Vol] 4.3 g/dL Normal 3.2-5.3 [facility] Comment on above: Performed By: #### C BCA, CMP, 0-3 #### [facility] ([id number]) [address] [place] [address] 65978 ALP [Catalytic activity/Vol] 63 U/L Normal 39-130 [facility] Comment on above: Performed By: #### C BCA, CMP, 3039-3 #### [facility] ([id number]) [address] [place] [address] 48189 ALT [Catalytic activity/Vol] 25 U/L Normal 0-40 [facility] Comment on above: Performed By: #### C BCA, CMP, 3039-3 #### [facility] ([id number]) [address] [place] [address] 51493 Anion gap [Moles/Vol] 9 mmol/L Normal 5-15 [facility] Comment on above: Performed By: #### C BCA, CMP, 0-3 #### [facility] ([id number]) [address] [place] [address] 15191 AST [Catalytic activity/Vol] 23 U/L Normal 0-41 [facility] Comment on above: Performed By: #### C BCA, CMP, 0-3 #### [facility] ([id number]) [address] [place] [address]40 Bilirubin [Mass/Vol] 1.4 mg/dL High 0.3-1.2 [facility] Comment on above: Performed By: #### C BCA, CMP, 0-3 #### [facility] ([id number]) [address] [place] [address] 47730 Calcium [Mass/Vol] 10.1 mg/dL Normal 8.5-10.5 [facility] Comment on above: Performed By: #### C ANTONIETTA HERRERA, 3039-3 #### [facility] ([id number]) [address] [place] [address] 18570 Chloride [Moles/Vol] 104 mmol/L Normal 98-109 [facility] Comment on above: Performed By: #### C ANTONIETTA HERRERA, 3 #### [facility] ([id number]) [address] [place] [address] 78307 CO2 [Moles/Vol] 22 mmol/L Normal 22-32 [facility] Comment on above: Performed By: #### Yousif HERRERA CMP, 3 #### [facility] ([id number]) [address] [place] [address] 72521 Creatinine [Mass/Vol] 1.05 mg/dL Normal 0.70-1.20 [facility] Comment on above: Result Comment: METH OD TRACEABLE TO IDMS STANDARD Performed By: #### C ANTONIETTA HERRERA, 3039-3 #### [facility] ([id number]) [address] [place] [address] 12166 GFR/1.73 sq M.predicted among non-blacks MDRD (S/P/Bld) [Vol rate/Area] 87 mL/min/{1.73_m2} Normal >59 [facility] Comment on above: Result Comment: Reported eGFR is based on the CKD-EPI 2020 equation that does not use a race coefficient. Performed By: #### C ANTONIETTA HERRERA, 0-3 #### [facility] ([id number]) [address] [place] [address] 58134 Glucose [Mass/Vol] 113 mg/dL High 65-99 [facility] Comment on above: Performed By: #### Yousif HERRERA CMP, 3039-3 #### [facility] ([id number]) [address] [place] [address] 81870 Potassium [Moles/Vol] 3.7 mmol/L Normal 3.5-5.0 [facility] Comment on above: Performed By: #### C BCA, CMP, 3040-3 #### [facility] ([id number]) [address] [place] [address] 74749 Protein [Mass/Vol] 7.9 g/dL Normal 6.0-8.0 [facility] Comment on above: Performed By: #### C BCA CMP, 3040-3 #### [facility] ([id number]) [address] [place] [address] 58292 Sodium [Moles/Vol] 135 mmol/L Normal 134-146 [facility] Comment on above: Performed By: #### C BCA, CMP, 3040-3 #### [facility] ([id number]) [address] [place] [address] 49027 Urea nitrogen [Mass/Vol] 13 mg/dL Normal 5-23 [facility] Comment on above: Performed By: #### Yousif BCA, [facility], 3040-3 #### [facility] ([id number]) [address] [place] [address] ABDOMEN AND PELVIS W CONT on [...] exclude pheochromocytoma. Recommend no further imaging evaluation. [facility] NUNN, et al. Management of Incidental Adrenal Masses: A White Paper of the ACR Incidental Findings Committee. J Am Ag Radiol. 2017 Apr;14(8):1501-9347. THIS REPORT CONTAINS A SIGNIFICANT RESULT AND/OR RECOMMENDATION, WHICH REQUIRES THE ATTENTION OF THE LICENSED CAREGIVER RESPONSIBLE FOR THIS PATIENT. THEREFORE, I SPECIFICALLY DESIGNATED THIS REPORT TO BE TELEPHONED BY THE RADIOLOGY DEPARTMENT. FINDINGS WERE INSTRUCTED TO BE CALLED TO THE CLINICAL SERVICE ON 07/24/2024 4:17 PM Finalized by Daniel Mcallister on 07/24/2024 4:17 PM Normal [facility] LIPASEon 07-24-2024 Lipase [Catalytic activity/Vol] 22 U/L Normal 17-40 [facility] Comment on above: Performed By: #### C ANTONIETTA HERRERA, 3040-3 #### [facility] ([id number]) [address] [place] [address], FIRST FLOOR [address] 9-10 Nerveson 07-17-2024 [facility] 07-12-2024 Outside Records [id number]#[facility] Patient Letter [id number]#1.0 [facility] 05-03-2024 Outside Records [id number]#1.0 [facility] 04-24-2024 Outside Records [id number]#1.0 [facility] - Other Radiology Report on 04-24-2024 Rad - Other Radiology Report [id number]#1.0 [facility] 04-11-2024 Patient Letter [id number]#1.0 [facility] 04-05-2024 Outside Records [id number]#1.00 [facility] [id number]#1.00 [facility] - Other Radiology Report on 04-02-2024 Rad - Other Radiology Report [id number]#1.0 0OT[facility]IFF Normal [facility] LUMBAR SPINE 6 OR MORE VWSon 01-14-2022 LUMBAR SPINE 6 OR MORE VWS [facility] Department of Radiology [address] [place] [phone] ======== Patient Name: RICCARDO HALE : 1975 Sex: M Age: Race: White Pt. Location: Patient Status: D Ordered Date: 01/14/2022 12:15:00 PM Completed Date: 01/14/2022 12:37 PM Requesting Provider: JACKELINE RANDLE Attending Provider: JACKELINE RANLDE Report Copy To: MILAN NAILS Signs & Symptoms: M47.896 Other spondylosis, lumbar region I10 History: [place] Comments: , ap, lat, flex, ex, obliques, r/o instability or pars defect , Views (X-RAY, LUMBAR SPINE): AP, Lateral, L5-S1 Spot, Obliques, Flexion, Extension , ap, lat, flex, ex, obliques, r/o instability or pars defect , Views (X-RAY, LUMBAR SPINE): AP, Lateral, L5-S1 Spot, Obliques, Flexion, Extension , , , Ordering Provider - A JER MSN VIDEO COORDINATOR , Exam: LUMBAR SPINE 6 OR MORE [...] radiographically. Electronically signed: Irma York. Transcribed by: [email or web address], User Resident: Electronically Signed by: IRMA YORK @ 01/15/2022 11:40 AM Normal [facility] Comment on above: Order Comment: , ap, [...] 175.26 cm Temi Marshall APRN Work Phone: [facility] 05-13-2025 08:55-0400 Body mass index (BMI) [Ratio] 47.8 kg/m2 Temi Marshall APRN Work Phone: [facility] 05-13-2025 08:55-0400 Body temperature 97.5 [degF] Temi Dangelorbacher [employer] Work Phone: [facility] 05-13-2025 08:55-0400 Body weight 146.96 kg Temi Dangeloaddis [employer] Work Phone: [facility] 05-13-2025 08:55-0400 Diastolic blood pressure 78 mm[Hg] Temi Rolando [employer] Work Phone: [facility] 05-13-2025 08:55-0400 Heart rate 69 /min Temi Rolando [employer] Work Phone: [facility] 05-13-2025 08:55-0400 SaO2% (BldA) [Mass fraction] 95 % Temi Rolando [employer]IC[employer] Work Phone: [facility] 05-13-2025 08:55-0400 Systolic blood pressure 130 mm[Hg] Temi Rolando [employer]IC[employer] Work Phone: [facility] 04-17-2025 09:31-0400 Body height 175.26 cm Temi Dangeloaddis [employer] Work Phone: [facility] 04-17-2025 09:31-0400 Body mass index (BMI) [Ratio] 49.4 kg/m2 Temi Dangeloaddis [employer] Work Phone: [facility] 04-17-2025 09:31-0400 Body temperature 98 [degF] Temi Rolando [employer]ICIAN Work Phone: [facility] 04-17-2025 09:31-0400 Body weight 151.95 kg Temi Dangeloaddis GRACIAN Work Phone: [facility] 04-17-2025 09:31-0400 Diastolic blood pressure 84 mm[Hg] Temi Rolando [employer] Work Phone: [facility] 04-17-2025 09:31-0400 Heart rate 86 /min Temi Rolando CHAUDHRY Work Phone: [facility] 04-17-2025 09:31-0400 SaO2% (BldA) [Mass fraction] 94 % Temi Rolando [employer] Work Phone: [facility] 04-17-2025 09:31-0400 Systolic blood pressure 132 mm[Hg] Temi Rolando [employer]IC[employer] Work Phone: [facility] 03-27-2025 08:41-0400 Body height 175.3 cm Beto Reyes MD Work Phone: [facility] 03-27-2025 08:41-0400 Body mass index (BMI) [Ratio] 47.99 kg/m2 Beto Reyes MD Work Phone: [facility] 03-27-2025 08:41-0400 Body weight 147.42 kg Beto Reyes MD Work Phone: [facility] 03-27-2025 08:41-0400 Diastolic blood pressure 78 mm[Hg] Beto Reyes MD Work Phone: [facility] 03-27-2025 08:41-0400 Heart rate 104 /min Beto Reyes MD Work Phone: [facility] 03-27-2025 08:41-0400 Systolic blood pressure 138 mm[Hg] Beto Reyes MD Work Phone: [facility] 02-20-2025 10:21-0400 Body height 175.3 cm Beto Reyes MD Work Phone: [facility] 02-20-2025 10:21-0400 Body mass index (BMI) [Ratio] 48.29 kg/m2 Beto Reyes MD Work Phone: [facility] 02-20-2025 10:21-0400 Body weight 148.33 kg Beto Reyes MD Work Phone: [facility] 02-20-2025 10:21-0400 Diastolic blood pressure 86 mm[Hg] Beto Reyes MD Work Phone: [facility] [employer] 02-20-2025 10:21-0400 Heart rate 74 /min Beto Reyes MD Work Phone: [facility] [employer] 02-20-2025 10:21-0400 Systolic blood pressure 126 mm[Hg] Beto Reyes MD Work Phone: [facility] [employer] 07-19-2024 10:32-0400 Body height 175.3 cm Pascale Lowe PA Work Phone: [facility] [employer] 07-19-2024 10:32-0400 Body mass index (BMI) [Ratio] 45.63 kg/m2 Pascale Lowe PA Work Phone: [facility] [employer] 07-19-2024 10:32-0400 Body weight 140.16 kg Pascale Lowe PA Work Phone: [facility] [employer] 07-19-2024 10:32-0400 Diastolic blood pressure 86 mm[Hg] Pascale Lowe PA Work Phone: [facility] [employer] 07-19-2024 10:32-0400 Systolic blood pressure 130 mm[Hg] Pascale Lowe PA Work Phone: [facility] [employer] 09-23-2023 10:05-0500 Body height Abbey Robin Other [facility] Other 09-23-2023 10:05-0500 Body mass index (BMI) [Ratio] 44.21 kg/m2 Abbey Robin Other [facility] Other 09-23-2023 10:05-0500 Body temperature 98.6 [degF] Abbey Robin Other [facility] Other 09-23-2023 10:05-0500 Body weight 135.81 kg Abbey Robin Other [facility] Other 09-23-2023 10:05-0500 Diastolic blood pressure 82 mm[Hg] Abbey Robin Other [facility] Other 09-23-2023 10:05-0500 Respiratory rate 18 /min Abbey Robin Other [facility] Other 09-23-2023 10:05-0500 SaO2% (BldA) [Mass fraction] 95 % Abbey Robin Other [facility] Other 09-23-2023 10:05-0500 Systolic blood pressure 152 mm[Hg] Abbey Robin Other [facility] Other 04-15-2023 10:30-0400 Body height Marisol Zelaya Other [facility] Other 04-15-2023 10:30-0400 Body mass index (BMI) [Ratio] 45.33 kg/m2 Marisol Zelaya Other [facility] Other 04-15-2023 10:30-0400 Body temperature 97.6 [degF] Marisol Zelaya Other [facility] Other 04-15-2023 10:30-0400 Body weight 139.26 kg Marisol Zelaya Other [facility] Other 04-15-2023 10:30-0400 Diastolic blood pressure 80 mm[Hg] Marisol Zelaya Other [facility] Other 04-15-2023 10:30-0400 Respiratory rate 18 /min Marisol Zelaya Other [facility] Other 04-15-2023 10:30-0400 SaO2% (BldA) [Mass fraction] 98 % Marisol Zelaya Other [facility] Other 04-15-2023 10:30-0400 Systolic blood pressure 125 mm[Hg] Marisol Zelaya Other [facility] Other Encounters Encounter Date Encounter Type Care Provider Facility Start: 05-13-2025 End: 05-13-2025 ambulatory Temi Marshall APRN Work Phone: [facility] Work Phone: Start: 05-13-2025 End: 05-13-2025 Patient encounter procedure Temi Marshall APRN [facility] Work Phone: Start: 05-07-2025 End: 05-08-2025 Refill Beto Reyes MD Work Phone: [facility] [place] [facility] Comment on above: Rhinitis medicamento sa Start: 04-22-2025 End: 04-22-2025 ambulatory Renetta Terrazas MD Facility:[facility] Start: 04-17-2025 End: 04-17-2025 ambulatory Temi Marshall APRN Work Phone: [facility] Work Phone: Start: 04-17-2025 End: 04-17-2025 Patient encounter procedure Temi Marshall APRN [facility] Work Phone: Start: 04-10-2025 Non-patient / Non-visit Belinda Henson [facility] Work Phone: Start: 03-27-2025 End: [...] Start: 02-21-2025 ambulatory MILAN P HOUSE Facilit y:[facility] Start: 02-20-2025 End: 02-20-2025 Bamboo flowsheet [...] Office outpatient new 30 minutes Blair Gan GEOSPATIAL EXTRACTOR ANALYSIS Work Phone: [facility] Comment on above: Carpal tunnel syndro me of left wrist; Carpal tunnel syndrome of right wrist Start: 02-06-2025 End: 02-06-2025 ambulatory BLAIR GAN Not Available Start: 02-06-2025 End: 02-06-2025 Bamboo flowsheet Blair Gan GEOSPATIAL EXTRACTOR ANALYSIS Work Phone: [facility] Start: 02-06-2025 End: 02-06-2025 Bamboo flowsheet Blair Gan GEOSPATIAL EXTRACTOR ANALYSIS Work Phone: [facility] Start: 02-04-2025 ambulatory DO MILAN P HOUSE Faci lity:[facility] Start: 01-03-2025 End: 01-03-2025 Refill Pascale [...] 11-15-2024 End: 11-15-2024 ambulatory DO MILAN NAILS Facility:[facility] Start: 11-01-2024 End: 11-01-2024 Refill Maurizio Patrick MD Work Phone: [facility] Comment on above: Low back pain, unspe cified back pain laterality, unspecified chronicity, unspecified whether sciatica present Start: 10-02-2024 ambulatory DO MILAN NAILS Faci lity:[facility] Start: 08-09-2024 End: 08-09-2024 ambulatory MILAN NAILS Facility:[facility] abby Start: 07-24-2024 End: 07-27-2024 Evaluation and management of inpatient MILAN Medina [facility] Start: 07-19-2024 End: 07-19-2024 Office outpatient visit 25 minutes Pascale Souza PA Work Phone: [facility] [place] [facility] Comment on above: Carpal tunnel syndro me on both sides (Primary Dx); Chronic bilateral low back pain, unspecified whether sciatica present; Lumbar disc herniation Start: 07-19-2024 End: 07-19-2024 ambulatory PASCALE LOWE Not Available Start: 07-17-2024 End: 07-17-2024 Bamboo flowsheet Maurizio Patrick MD Work Phone: [facility] Start: 07-17-2024 End: 07-17-2024 Bamboo flowsheet Maurizio Patrick MD Work Phone: [facility] Start: 07-17-2024 End: 07-17-2024 ambulatory MAURIZIO PATRICK Not Available Start: 07-17-2024 End: 07-17-2024 Patient encounter procedure Maurizio Patrick MD Work Phone: [facility] Comment on above: Lumbar radiculopathy (Primary Dx); Low back pain, unspecified back pain laterality, unspecified chronicity, unspecified whether sciatica present Start: 07-02-2024 End: 07-02-2024 ambulatory MILAN P BROADDUS Facility:[facility] abby Start: 06-28-2024 ambulatory MILAN P BROADDUS Facilit y:[facility] Start: 05-24-2024 End: 05-24-2024 Bamboo flowsheet Maurizio Patrick MD Work Phone: [facility] Start: 05-24-2024 End: 05-24-2024 Bamboo flowsheet Maurizio Patrick MD Work Phone: [facility] Start: 05-24-2024 End: 05-24-2024 Patient encounter procedure Maurizio Patrick MD Work Phone: [facility] Comment on above: Carpal tunnel syndro me on both sides (Primary Dx) Start: 05-24-2024 End: 05-24-2024 ambulatory MAURIZIO PATRICK Not Available Start: 04-18-2024 End: 04-18-2024 ambulatory MILAN P HOUSE Facility:[facility] abby Start: 04-18-2024 End: 04-18-2024 ambulatory PASCALE LOWE Not Available Start: 04-09-2024 End: 04-09-2024 ambulatory DO MILAN P HOUSE Facility:[facility] Start: 09-23-2023 End: 09-23-2023 ambulatory Abbey Robin Other [facility] Other Start: 09-23-2023 Office outpatient vi sit 15 minutes Abbey Robin [facility] [place] Start: 04-15-2023 End: 04-15-2023 ambulatory Marisol Zelaya Other [facility] Other Start: 04-15-2023 Office outpatient ne w [...] NAYLOR [address] [place] [phone] Pascale Souza PA [address] [place] [address] [facility] Start: 03-27-2025 End: 03-27-2025 Patient encounter procedure 03/27/2025 8:40 AM EDT Office Visit [facility] [address] [place] [phone] Beto Reyes MD [address] [place] [address] Arrived [facility] Comment on above: Arrived Start: 02-22-2025 End: 02-22-2025 Patient encounter procedure 02/22/2025 9:00 AM EDT Office Visit [facility] [address] [place] [phone] Tracie Montiel DO [address] [place] [address] [facility] Start: 02-20-2025 End: 02-20-2025 Patient encounter procedure 02/20/2025 10:30 AM EDT Office Visit [facility] [address] [place] [phone] Beto Reyes MD [address] [place] [address] Arrived [facility] Comment on above: Arrived Start: 02-06-2025 End: 02-06-2025 Patient encounter procedure 02/06/2025 2:30 PM EDT Office Visit [facility] [address] [facility] [place] [address] Blair Gan, GEOSPATIAL EXTRACTOR ANALYSIS [address] [place] [address] Arrived [facility] Comment on above: Arrived Start: 12-03-2024 End: 12-03-2024 Patient encounter procedure [facility] Comment on above: Arrived Start: 10-10-2024 End: 10-10-2024 Patient encounter procedure 10/10/2024 1:40 PM EST Office Visit [facility] [place] [facility] [address] [place] [phone] Pascale Souza PA [address] [place], [place] [id number] [facility] [place] [facility] Start: 07-19-2024 End: 07-19-2024 Patient encounter procedure 07/19/2024 10:40 AM EDT Office Visit [facility] [place] [facility] [address] [place] [phone] Pascale Souza PA [address] [place] [address] [facility] [place] [facility] Start: 06-19-2024 End: 06-19-2024 Patient encounter procedure 06/19/2024 1:00 PM EDT Office Visit [facility] [place] [facility] [address] [place] [phone] Pascale Souza PA [address] [place] [address] [facility] [place] [facility] Start: 06-13-2024 End: 06-13-2024 Patient encounter procedure 06/13/2024 1:00 PM EDT Procedure Visit [facility] [address] [facility] [address] [place] [phone] Maurizio Patrick MD [address] [place] [address] [facility] Start: 05-24-2024 End: 05-24-2024 Patient encounter procedure 05/24/2024 8:30 AM EDT Procedure Visit [facility] [address] [place] [address] Maurizio Patrick MD [address] [place] [id number] Arrived [facility] Comment on above: Arrived EMG 2 Extremities EMG 2 Extremit ies Neurology Routine Carpal tunnel syndrome on both sides Ordered: 05/24/2024 [facility] Work Phone: Comment on above: Ordered: 05/24/2024 Patient Education Low back pain in adults [facility] Work Phone: Payers Date Payer Category Payer Medicare [id number] 2023 Medicare (Managed Care) [facility] MEDIC[facility] [id number] 2021 Medicare [id number] 2.16.840.1.203258.19 1974 Unknown [id number] 2.840.1.911247.3.579.2 .593 1974 Unknown [id number] 2.16.840.1.706771.3.579.2 .593 1974 Unknown [id number] 2.16.840.1.315523.3.579.2 .593 1974 Unknown [id number] 2.16.840.1.970037.3.579.2 .593 1974 Unknown [id number] 2.16.840.1.526024.3.579.2 .593 1974 Unknown [id number] 2.16.840.1.263738.3.579.2 .593 1974 Unknown [id number] 2.16.840.1.091252.3.579.2 .593 1974 Unknown [id number] 2.16.840.1.834998.3.579.2 .593 1974 Unknown [id number] 2.16.840.1.633753.3.579.2 .593 1974 Unknown [id number] 2.16.840.1.333282.3.579.2 .593 1974 Unknown [id number] 2.16.840.1.689246.3.579.2 .593 1974 Unknown [id number] 2.16.840.1.452858.3.579.2 .593 1974 Unknown [id number] 2.16.840.1.952374.3.579.2 .593 1974 Unknown [id number] 2.16.840.1.448440.3.579.2 .1286 1974 Unknown [id number] 2.16.840.1.052827.3.579.2 .718 1974 Unknown [id number] 2.16.840.1.978909.3.579.2 .718 1974 Unknown [id number] 2.16.840.1.151960.3.579.2 .718 1974 Unknown [id number] 2.16.840.1.050529.3.579.2 .1974 Unknown [id number] 2.16.840.1.736739.3.579.2 .1974 Unknown [id number] 2.16.840.1.736163.3.579.2 .1974 Unknown [id number] 2.16.840.1.144489.3.579.2 .1974 Unknown [id number] 2.16.840.1.074952.3.579.2 .1974 Unknown [id number] 2.16.840.1.194687.3.579.2 .1974 Unknown [id number] 2.16.840.1.589557.3.579.2 .1974 Unknown [id number] 2.16.840.1.287623.3.579.2 .1974 Unknown [id number] 2.16.840.1.149237.3.579.2 .1974 Unknown [id number] 2.16.840.1.399319.3.579.2 .1258 1974 Unknown [id number] 2.16.840.1.772043.3.579.2 .1258 1974 Unknown [id number] 2.16.840.1.418687.3.579.2 .1258 1974 Unknown [id number] 2.16.840.1.617934.3.579.2 .1258 1974 Unknown [id number] 2.16.840.1.847690.3.579.2 .1258 1974 Unknown [id number] 2.16.840.1.305954.3.579.2 .1258 1974 Unknown [id number] 2.16.840.1.563847.3.579.2 .12581974 Unknown [id number] 2.16.840.1.755597.3.579.2 .1259 1974 Unknown [id number] 2.16.840.1.603011.3.579.2 .196 1960 Medicare [id number] Private Health Insurance [facility] [id number] Unknown [id number] Social History Date Type Detail Facility Unknown if ever smoked [facility] Other Start: 04-11-2024 End: 02-20-2025 Sex Assigned At [place] [facility] Other Start: 04-11-2024 Tobacco smoking stat [facility] Never smoked tobacco [facility] Start: 04-11-2024 Tobacco use and exposure Smokeless tobacco non-user [facility] Start: 04-11-2024 End: 12-03-2024 Alcoholic beverage intake Lifetime non-drinker (finding) [facility] Start: 04-11-2024 End: 02-20-2025 History of Social function [facility] Start: 1975 Sex assigned at Not on file [facility] Start: 02-05-2025 End: 04-17-2025 Tobacco smoking status FLIS Ex-smoker [facility] History of tobacco use Current smoker [facility] History of tobacco use Cigarette Smoker N [facility] Start: 02-05-2025 End: 02-20-2025 Alcoholic beverage intake Ex-drinker (finding) [facility] Sex Male (finding) [place] [facility] Start: 1975 Sex Assigned At Male [facility] Clinical Notes 04-15-2022 to 04-17-2025 Note [...] on CPAP chronic May 13, 2025 8:54am [facility] Work Phone: 1(843) 680-667507-09-2025 History of Present illness Narrative* Beto Reyes [...] disease) 07/25/2024 Hyperlipidemia 07/25/2024 Hypertension 07/25/2024 Ileus ([facility]) 07/24/2024 Migraine 02/19/2025 Nausea and vomiting 07/25/2024 Morbid (severe) obesity due to excess calories ([facility]) 02/19/2025 Resolved Ambulatory Problems Diagnosis [...] and replace cap. 48 g 3 HYDROcodone-acetaminophen (Deport) 5-325 MG tablet 1 tablet every 6 [...] hypertonic saline irrigations prn. documented in this [facility]06-16-2025 NoteEntered by MILAN NAILS DO on March 04, 2025 07:38:09 EDT From: MILAN NAILS DO To: [facility]72 Sent: 03/04/2025 07:38:08 EDT Subject: [...] 5 Substitutions Allowed Route To Pharmacy - [facility] Approved with modifications: SUMAtriptan (sumatriptan 100 mg tablet) TAKE 1 TABLET BY MOUTH DAILY Qty: 12 EA Days Supply: 30 Refills: 5 Substitutions Allowed Route To Pharmacy - [facility] #72 Approved with modifications: albuterol (albuterol sulfate HFA 90 mcg/actuation aerosol inhaler) INHALE 2 PUFFS BY MOUTH EVERY 6 HOURS NEEDED Qty: 8.5 gm Days Supply: 25 Refills: 5 Substitutions Allowed Route To Pharmacy - [facility] From: [facility] To: MILAN NAILS DO Sent: March [...] Refills: 5 Substitutions Allowed [id number] Note [id number] Clinic Euclid [id number] [facility] SURGERY Clinical Discharge Summary PERSON INFORMATION Name IRCCARDO HALE Age 49 Years 1975 Sex MALE Language Niuean PCP MILAN NAILS DO Marital Status Single Med Service Ambulatory Surgery Acct# Arrival 02/21/2025 06:22:54 Visit Reason SURGERY - COLONOSCOPY - SCREENING Acuity LOS 015 21:32 Address: [address] [place] [id number] Comment: PROVIDER INFORMATION VITALS INFORMATION Vital Sign [...] every day. cyanocobalamin (Vitam (more content not included)...[facility] HospitalGggwwrih38-94-6588 History of Present illness Narrative* Beto Reyes [...] 02/19/2025 GERD (gastroesophageal reflux disease) 07/25/2024 Hyperlipidemia ([facility]) 07/25/2024 Hypertension ([facility]) 07/25/2024 Ileus ([facility]) 07/24/2024 Migraine 02/19/2025 Nausea and vomiting 07/25/2024 Morbid (severe) obesity due to excess calories ([facility]) 02/19/2025 Resolved Ambulatory Problems Diagnosis [...] Take 180 mg by mouth Daily HYDROcodone-acetaminophen (Deport) 5-325 MG tablet 1 tablet every 6 [...] Clean ears at F/U documented in this encounterSelect Specialty HospitalKznwxitglg36-61-5639 History of Present illness Narrative* Blair Gan [...] Daily fexofenadine (LEIGH) 180 mg, Daily HYDROcodone-acetaminophen (Deport) 5-325 MG tablet 1 tablet, Every 6 [...] Use: Not At Risk (10/24/2018) Received from [employer] [facility] Frequency of Alcohol Consumption: Never Average [...] Strength additional comments: 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 documented in this encounterSelect Specialty HospitalVbxscdvglq23-11-9720 NoteEntered by MILAN NAILS DO on February 04, 2025 10:00:28 EDT From: MILAN NAILS DO To: [facility] Sent: 02/04/2025 10:00:28 EDT Subject: Medication Management Submitted: Complete:DULoxetine (DULoxetine 60 mg oral delayed release capsule) Signed by MILAN NAILS DO 02/04/2025 10:00:00 EDT Approved with modifications: DULoxetine (duloxetine 60 mg capsule,delayed release) TAKE 1 CAPSULE BY MOUTH DAILY Qty: 30 cap(s) Days Supply: 30 Refills: 5 Substitutions Allowed Route To Pharmacy - [facility] From: [facility] To: MILAN NAILS DO Sent: February [...] Refills: 11 Substitutions Allowed Notes from Pharmacy: [place] [id number] Note Entered by MILAN NAILS DO on January 03, 2025 13:01:51 EDT From: MILAN NAILS DO To: [facility] Sent: 01/03/2025 13:01:51 EDT Subject: Medication Management Submitted: Complete:omeprazole (omeprazole 20 mg oral delayed release capsule) Signed by MILAN NAILS DO 01/03/2025 13:01:00 EDT Approved with modifications: omeprazole (omeprazole 20 mg capsule,delayed release) TAKE 1 CAPSULE BY MOUTH DAILY Qty: 30 cap(s) Days Supply: 30 Refills: 5 Substitutions Allowed Route To Pharmacy - [facility] From: [facility] To: MILAN NAILS DO Sent: January [...] Refills: 11 Substitutions Allowed [facility]Tyshrzuf21-12-1760 Telephone encounter Note* Telephone Encounter - Colby Marc MA - 01/03/2025 11:16 AM EDT 12/03/2024 Continue baclofen 10mg PO up to 4 times daily for muscle spasm. Will not allow me to select QID. [place] [id number] Miscellaneous Notes* Telephone Encounter - Colby Marc MA - 01/03/2025 11:16 AM EDT 12/03/2024 Continue baclofen 10mg PO up to 4 times daily for muscle spasm. Will not allow me to select QID. documented in this encounterSelect Specialty HospitalYwayxvuwkr70-09-0604 Telephone encounter Note* Telephone Encounter - Patrizia Buenrostro - 12/03/2024 12:18 PM EDT Contacted and he noted the FCE is not needed. He said for the update of disability this is not required. I let him know not to hesitate if we'd be needed. [facility] HospitalXuqcuxmsch35-32-3317 Miscellaneous Notes* Telephone Encounter - Patrizia Buenrostro [...] then self-pay @ $505.00. documented in this encounterSelect Specialty HospitalHanxdbdcis98-25-2290 Telephone encounter Note* Telephone Encounter - Patrizia Buenrostro - 11/28/2024 1:22 PM EDT Tried to contact re: referral for FCE. Requested a call back to verify if this would be going thru C[facility], covered; if not then self-pay @ $505.00. [facility] HospitalKucvhniwyu31-63-6100 NotePROCEDURE: CT Sinus w/o Contrast COMPARISON: None. [...] Christopher Manjarrez MD 11/16/24 9:26 am Technologist: [facility]02-24-2025 NoteEntered by MILAN NAILS DO on November 12, 2024 07:31:34 EST From: MILAN NAILS DO To: [facility] Sent: 11/12/2024 07:31:34 EST Subject: Medication Management Submitted: Complete:lisinopril (lisinopril 20 mg oral tablet) Signed by MILAN NAILS DO 11/12/2024 07:31:00 EST Approved with modifications: lisinopril (lisinopril 20 mg tablet) TAKE 1 TABLET BY MOUTH DAILY Qty: 90 tab(s) Days Supply: 90 Refills: 1 Substitutions Allowed Route To Pharmacy - [facility] From: [facility] To: MILAN NAILS DO Sent: November 09, 2024 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 Subject: Medication Management Due: November 10, 2024 12:08:02 AM 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 On Hold Pending Signature Drug: lisinopril (lisinopril 20 mg oral tablet), TAKE 1 TABLET BY MOUTH DAILY Quantity: 90 tab(s) Days Supply: 90 Refills: 5 Substitutions Allowed Notes from Pharmacy: Dispensed Drug: lisinopril (lisinopril 20 mg oral tablet), TAKE 1 TABLET BY MOUTH DAILY Quantity: 90 tab(s) Days Supply: 90 Refills: 5 Substitutions Allowed Notes [facility] [id number] Note Entered by MILAN NAILS DO on October 26, 2024 14:14:29 EST From: MILAN NAILS DO To: [facility] Sent: 10/26/2024 14:14:29 EST Subject: Medication Management Submitted: Complete:fexofenadine (fexofenadine 180 mg oral tablet) Signed by MILAN NAILS DO 10/26/2024 14:14:00 EST Approved with modifications: fexofenadine (fexofenadine 180 mg tablet) TAKE 1 TABLET BY MOUTH EVERY DAY Qty: 30 tab(s) Days Supply: 30 Refills: 5 Substitutions Allowed Route To Pharmacy - [facility] From: [facility] To: MILAN NAILS DO Sent: October 26, 2024 12:55:48 PM 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 Subject: Medication Management Due: October 27, 2024 12:02:15 AM 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 On Hold Pending Signature Drug: fexofenadine (fexofenadine 180 mg oral tablet), TAKE 1 TABLET BY MOUTH DAILY Quantity: 30 tab(s) Days Supply: 30 Refills: 5 Substitutions Allowed Notes from Pharmacy: Dispensed Drug: fexofenadine (fexofenadine 180 mg oral tablet), TAKE 1 TABLET BY MOUTH EVERY DAY Quantity: 30 tab(s) Days Supply: 30 Refills: 5 Substitutions Allowed Notes [id number] Note Entered by MILAN NAILS DO on August 27, 2024 16:27:03 EST From: MILAN NAILS DO To: [facility] Sent: 08/27/2024 16:27:03 EST Subject: Medication [...] 25 Refills: 5 Substitutions Allowed Route To [facility]72 Approved with modifications: propranolol (propranolol ER 80 mg capsule,24 hr,extended release) TAKE 1 CAPSULE BY MOUTH DAILY Qty: 30 cap(s) Days Supply: 30 Refills: 5 Substitutions Allowed Route To [facility]72 Approved with modifications: SUMAtriptan (sumatriptan 100 mg tablet) TAKE 1 TABLET BY MOUTH DAILY Qty: 12 EA Days Supply: 12 Refills: 5 Substit[facility] From: [facility] To: MILAN NAILS DO Sent: August 27, 2024 2:39:32 PM 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 Subject: Medication Management Due: August 28, 2024 12:06:32 AM 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 Reason for Appointment: EMG Patient: Riccardo Hale : 1975 EMG Computer: [employer] Referring Physician: Dr. 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 Paresthesia in the legs. R>L. NoHx of DM, not taking blood thinners. Comments: Procedure explained to the patient who expressed understanding. documented in this encounterSelect Specialty HospitalQebttctpnt61-16-1191 History of Present illness Narrative* Danya Ritter MA - 05/24/2024 8:30 AM EDT Images from the original note were not included. Reason for Appointment: EMG Patient: Riccardo Hale : 1975 EMG Computer: [employer] Referring Physician: Pascale Souza PA-C EMG: ASHLEY unleavened dough mixer: Danya Ritter CMA Office Location: [place] Reason for EMG: c/o burning, numbness, tingling in the hands. R>L. Sometimes has a hard time closing his hand. No Hx of DM, not taking blood thinners. Comments: Procedure explained to the patient who expressed understanding. documented in this encounterSelect Specialty HospitalJnjfcjivge73-08-9509 NoteEntered by MILAN NAILS DO on May 22, 2024 08:21:07 EDT From: MILAN NAILS DO To: [facility] Sent: 05/22/2024 08:21:07 EDT Subject: Medication Management Submitted: Complete:SUMAtriptan (SUMAtriptan 100 mg oral tablet) Signed by MILAN NAILS DO 05/22/2024 08:21:00 EDT Approved with modifications: SUMAtriptan (sumatriptan 100 mg tablet) TAKE 1 TABLET BY MOUTH DAILY Qty: 12 EA Days Supply: 12 Refills: 2 Substitutions Allowed Route To Pharmacy - [facility] From: [facility] To: MILAN NAILS DO Sent: May [...] Refills: 2 Substitutions Allowed [facility] [id number] Note Entered by MILAN NAILS DO on May 02, 2024 11:28:48 EDT From: MILAN NAILS DO To: [facility] Sent: 05/02/2024 11:28:48 EDT Subject: Medication Management Submitted: Complete:fexofenadine (fexofenadine 180 mg oral tablet) Signed by MILAN NAILS DO 05/02/2024 11:28:00 EDT Approved with modifications: fexofenadine (fexofenadine 180 mg tablet) TAKE 1 TABLET BY MOUTH DAILY Qty: 30 tab(s) Days Supply: 30 Refills: 5 Substitutions Allowed Route To Pharmacy - [facility] From: [facility] To: MILAN NAILS DO Sent: May [...] Refills: 5 Substitutions Allowed [id number] Evaluation note* Encounter Date Diagnosis Assessment Notes [...] 3 days Sep, Bronchitis (ICD-10 - J40) [facility] Other 07-28-2023 Evaluation note* Encounter Date Diagnosis [...] is not contagious from itself or drainage. [facility] Other 05-30-2023 NoteCONSULTATION CONSULTATION DATE: 02/15/2023 TO: [...] the lower extremities. MEDICATION: Current medication includes Deport 5 mg t.i.d. p.r.n. Patient reports it [...] our patients to inform us about any uano-vyv-uwgzlvt medications or herbal remedies/nutritional supplements/alternative remedies. 2. [...] treatment options with their primary care provider.[id number] Note CONSULTATION CONSULTATION DATE: 01/06/2023 TO: Dr. [...] our patients to inform us about any zdke-ilo-rjztbel medications or herbal remedies/nutritional supplements/alternative remedies. 2. [...] treatment options with their primary care provider.[facility] [id number] Note CONSULTATION PROCEDURE DATE: 10/06/2022 PREOPERATIVE DIAGNOSIS: [...] will be followed up in the office.[facility] [id number] NoteCONSULTATION CONSULTATION DATE: 08/26/2022 HISTORY OF PRESENT [...] his muscle relaxer. Our clinic prescribes his Deport 5/325 b.i.d. and diclofenac 75 mg b.i.d. [...] normally does. All questions were answered today.[facility] [id number] NoteCONSULTATION CONSULTATION DATE: 07/22/2022 HISTORY OF PRESENT [...] He current does see Dr. Patrick at [facility] as well. Activities that aggravate his pain are pulling, sitting, walking, lying down and bending. He will alternate heat and ice which he feels does not make a significant difference. Medications include trazodone 50 mg q.h.s., tizanidine 4 mg b.i.d., Lyrica 50 mg t.i.d., diclofenac 75 mg b.i.d. and Deport 5/325 b.i.d. He does attend pool therapy at the [facility] 2-3 times a week, which he [...] be followed up in the clinic thereafter.[facility] 04-22-2022 NoteCONSULTATION PROCEDURE DATE: 04/22/2022 PRE [...] will be followed up in the office.[facility] [id number] NoteCONSULTATION CONSULTATION DATE: 04/15/2022 This is a [...] mg b.i.d., Lyrica 50 mg b.i.d. and Deport 5/325 b.i.d. He is complaining of trouble [...] is gained for his trigger point injections.[facility] Evaluation note* Diagnosis Lumbar radiculopathy- Primary [...] 9:22am HTN (hypertension) chronic March 212024 9:22am [facility] Work Phone: Evaluation note* Diagnosis Rhinitis medicamentosa Other diseases of nasal cavity and sinuses documented in this encounter [facility] HealthcareHistory general Narrative - Reported* Type Description Date Medical History HTN (hypertension) Medical History GERD (gastroesophageal reflux di sease) Medical History Chronic pain Medical History Anxiety Surgical History tonsillectomy and adenoidectomy Surgical History ablasion [facility] Other History general Narrative - Reported* Type Description Date Medical History HTN (hypertension) Medical History GERD (gastroesophageal reflux di sease) Medical History Chronic pain Medical History Anxiety Surgical History tonsillectomy and adenoidectomy Surgical History ablasion Surgical History nerve block Surgical History epidural [facility] Other Reason for referral (narrative)No reason for referral information availableSt. Vincent Hospital Work Phone: Summary Purpose Family History Relationship [...] section and content) DATE CREATED AUTHOR 03/09/2018 [facility] DATE CREATED AUTHOR AUTHOR'S ORGANIZ ATION 01/19/2022 [facility] DATE CREATED AUTHOR AUTHOR'S ORGANIZ ATION 02/25/2023 [facility] DATE CREATED AUTHOR AUTHOR'S ORGANIZ ATION 07/27/2024 [facility] DATE CREATED AUTHOR AUTHOR'S ORGANIZ ATION 03/15/2025 [facility] DATE CREATED AUTHOR AUTHOR'S ORGANIZ ATION 03/31/2025 [facility] DATE CREATED AUTHOR AUTHOR'S ORGANIZ ATION 05/03/2025 [facility] REASON FOR VISIT (unrecogniz ed section and content) Reason Comments Back Pain Numbness Reason Comments Med Refill Reason Onset Date Comments re: referral for FCE 11/28/2024 re: FCE 12/03/2024 Reason Comments Carpal Tunnel Reason Comments Sinusitis Reason Comments Rhinitis medicamentosa 1 month check nos e and clean ears Reason Onset Date Comments Med Refill 05/07/2025 Care Teams (unrecognized sec tion and content) Dupligraph Operator Relationship Specialty Start Date End Date Milan Nails MD [address] [place] [address] PCP - General Family Medicine 12/08/23 Dupligraph Operator Relationship Specialty Start Date End Date Milan Nails MD [address] [place] [address] PCP - General Family Medicine 12/08/23 Dupligraph Operator Relationship Specialty Start Date End Date Milan Nails MD [address] [facility] [place] [address] PCP - General Family Medicine 12/08/23 Pascale Souza PA [address] [place] [address] Physician Supervisor Special Effects Neurology 07/19/24 Maurizio Patrick MD [address] [place] [address] Referring Physician Neurology 07/19/24 Dupligraph Operator Relationship Specialty Start Date End Date Milan Nails MD [address] [place] [address] PCP - General Family Medicine 12/08/23 Dupligraph Operator Relationship Specialty Start Date End Date Milan Nails MD [address] [facility] [place] [address] PCP - General Family Medicine 12/08/23 Dupligraph Operator Relationship Specialty Start Date End Date Milan Nails MD [address] [place] [address] PCP - General Family Medicine 12/08/23 Pascale Souza PA [address] [place] [address] Physician Supervisor Special Effects Neurology 07/19/24 Maurizio Patrick MD [address] [place] [address] Referring Physician Neurology 07/19/24 Dupligraph Operator Relationship Specialty Start Date End Date Milan Nails MD [address] [facility] [place] [address] PCP - General Family Medicine 12/08/23 Pascale Souza PA [address] [place] [address] Physician Supervisor Special Effects Neurology 07/19/24 Maurizio Patrick MD [address] [place] [address] Referring Physician Neurology 07/19/24 Dupligraph Operator Relationship Specialty Start Date End Date Milan Nails MD [address] [facility] [address] PCP - General Family Medicine 12/08/23 Pascale Souza PA [address] [place] [address] Physician Supervisor Special Effects Neurology 07/19/24 Maurizio Patrick MD [address] [place] [address] Referring Physician Neurology 07/19/24 Dupligraph Operator Relationship Specialty Start Date End Date Milan Nails MD [address] [facility] [place] [address] PCP - General Family Medicine 12/08/23 Pascale Souza PA [address] [place] [address] Physician Supervisor Special Effects Neurology 07/19/24 Maurizio Patrick MD [address] [place] [address] Referring Physician Neurology 07/19/24 Dupligraph Operator Relationship Specialty Start Date End Date Milan Nails MD [address] [facility] [place] [address] PCP - General Family Medicine 12/08/23 Pascale Souza PA [address] [place] [address] Physician Supervisor Special Effects Neurology 07/19/24 Maurizio Patrick MD [address] [place] [address] Referring Physician Neurology 07/19/24 Dupligraph Operator Relationship Specialty Start Date End Date Milan Nails MD [address] [facility] [address] PCP - General Family Medicine 12/08/23 Pascale Souza PA [address] [place] [address] Physician Supervisor Special Effects Neurology 07/19/24 Maurizio Patrick MD [address] [place] [address] Referring Physician Neurology 07/19/24 Dupligraph Operator Relationship Specialty Start Date End Date Milan Nails MD [address] [facility] [place] [address] PCP - General Family Medicine 12/08/23 Pascale Souza PA [address] [place] [address] Physician Supervisor Special Effects Neurology 07/19/24 Maurizio Patrick MD [address] [place] [address] Referring Physician Neurology 07/19/24 Dupligraph Operator Relationship Specialty Start Date End Date Milan Nails MD [address] [facility] [address] PCP - General Family Medicine 12/08/23 Pascale Souza PA [address] [place] [address] Physician Supervisor Special Effects Neurology 07/19/24 Maurizio Patrick MD [address] [place] [address] Referring Physician Neurology 07/19/24 Dupligraph Operator Relationship Specialty Start Date End Date Milan Nails MD [address] [place] [facility] [address] PCP - General Family Medicine 12/08/23 Pascale Souza PA [address] [place] [address] Physician Supervisor Special Effects Neurology 07/19/24 Mauriizo Patrick MD [address] [place] [address] Referring Physician Neurology 07/19/24 Dupligraph Operator Relationship Specialty Start Date End Date Milan Nails MD [address] [facility] [place] [address] PCP - General Family Medicine 12/08/23 Pascale Souza PA [address] [place] [address] Physician Supervisor Special Effects Neurology 07/19/24 Maurizio Patrick MD [address] [place] [address] Referring Physician Neurology 07/19/24 Team Status: Active Member Role Status Dates Temi Marshall APRN GEOSPATIAL EXTRACTOR ANALYSIS-C Primary Care Provider Active Team Status: Active [...] April 17, 2025 End: April 17, 2025 Dupligraph Operator Relationship Specialty Start Date End Date Milan Nails MD PCP - General Family Medicine 12/08/23 Pascale Souza PA [address] [place] [address] Physician Supervisor Special Effects Neurology 07/19/24 Maurizio Patrick MD [address] [place] [address] Referring Physician Neurology 07/19/24 Team Status: Inactive [...] BE BASED ON THE PRIMARY CLINICAL RECORDS. [employer] [facility]. provides no warranty or guarantee of the accuracy or completeness of information in this document.
--- NOTE | 2025-06-05 08:46 | PM.CN ---
Consult Note: HPI Data of Consult Patient: known to practice within the last 3 years Consult date: 05/02/25 Requesting Physician: Razia Contreras NP Primary Care Provider: GERMANIA NAILS Consult Narrative Reason for consult: f/u Narrative: Riccardo Hale a pleasant 49 year old male presents for evaluation and management of chronic back pain with radiculopathy. Continues to find benefit from medication regimen without side effects. Patient has failed to benefit from greater than 6 weeks PT/provider guided HEP. Pain most significant in left low back radiating into bilateral legs and bilateral feet. historically non surgical for lumbar pain and radiculopathy, NS in 2021 recommended spinal cord stimulation. previously agreeable to scs trial however he has since changed his mind as he is fearful. pain today 7/10 sharp aching increasing to 10/10 with all activity, bending, twisting, standing, walking, lifting. pain mildly improved with sleeping. pt recently underwent lumbar MRI with results below. cc:: CC: Razia Contreras NP Review of Systems ROS Status of ROS 10 or more systems reviewed and unremarkable except as noted in history and below Musculoskeletal Reports: back pain, neck pain and extremity pain PFSH PFSH Medical History Osteoarthritis ?M19.90 - Unspecified osteoarthritis, unspecified site (ICD-10) Numbness and tingling ?R20.0 - Anesthesia of skin (ICD-10) ?R20.2 - Paresthesia of skin (ICD-10) Obesity ?E66.9 - Obesity, unspecified (ICD-10) Acid reflux ?K21.9 - Gastro-esophageal reflux disease without esophagitis (ICD-10) Former smoker ?Z87.891 - Personal history of nicotine dependence (ICD-10) Sleep apnea ?G47.30 - Sleep apnea, unspecified (ICD-10) High cholesterol ?E78.00 - Pure hypercholesterolemia, unspecified (ICD-10) Hypertension ?I10 - Essential (primary) hypertension (ICD-10) Surgical History History of tonsillectomy and adenoidectomy ?Z90.89 - Acquired absence of other organs (ICD-10) Meds Home Medications and Allergies Home Medications ?Medication ?Instructions ?Recorded ?Confirmed ?Type albuterol sulfate 90 mcg/actuation inhalation Q4H PRN shortness of 03/10/23 History aerosol inhaler breath or wheezing duloxetine 30 mg capsule,delayed 30 mg PO QDAY 03/10/23 04/22/25 History release duloxetine 60 mg capsule,delayed 60 mg PO QDAY 03/10/23 04/22/25 History release lisinopril 20 mg tablet 20 mg PO QDAY 03/10/23 04/22/25 History omeprazole 20 mg capsule,delayed 20 mg PO QDAY 03/10/23 04/22/25 History release trazodone 50 mg tablet 50 mg PO .hs PRN sleep 03/10/23 04/22/25 History pregabalin 200 mg capsule (Lyrica) 200 mg PO TID 03/01/24 04/22/25 History propranolol 80 mg capsule,24 80 mg PO DAILY 03/01/24 04/22/25 History hr,extended release amitriptyline 25 mg tablet 25 mg PO DAILY 04/24/24 04/22/25 History baclofen 10 mg tablet 10 mg PO DAILY 04/24/24 04/22/25 History sumatriptan succinate 100 mg tablet 100 mg PO PRN migraine headache 04/24/24 History hydrocodone 5 mg-acetaminophen 325 See Rx Instructions .Route 11/14/24 04/22/25 Rx mg tablet .COMPLEX PRN pain #75 tabs diclofenac sodium 75 mg 75 mg PO BID PRN pain #60 tabs 12/31/24 04/22/25 Rx tablet,delayed release phentermine 37.5 mg tablet mg 04/22/25 History hydrocodone 5 mg-acetaminophen 325 1 tab PO TID PRN pain #75 tabs 05/02/25 Rx mg tablet Allergies Allergy/AdvReac Type Severity Reaction Status Date / Time No Known Drug Allergies Allergy Verified 04/22/25 10:22 Exam Constitutional Documenting provider has reviewed patient's vital signs: yes Common normals: no apparent distress, oriented x3, healthy appearing, alert and well nourished General appearance: cooperative Orientation/consciousness: Yes awake, Yes oriented to person, Yes oriented to place and Yes oriented to time Other: uses cane HENMT Common normals: normocephalic, hearing grossly normal bilaterally and moist oral mucous membranes Head and scalp: normocephalic Eye Common normals: PERRL Pupil: PERRL Neck & C-Spine Common normals: full ROM General: normal visual inspection Cervical spine: pain with cervical ROM Other: negative sprulings strength 5/5 in BUE sensation intact/equal BUE Chest Common normals: inspection of chest normal Respiratory Common normals: normal respiratory effort, no retractions and no use of accessory muscles Effort & inspection: able to speak in complete sentences and symmetric chest movement Back & Pelvis Common normals: thoracic and lumbar spine normal to inspection Lumbar spine/lower back: normal to inspection, ROM limited, pain with ROM, paraspinal muscle tenderness, paraspinal muscle spasm, straight leg raise positive right and straight leg raise positive left Other: positive facet loading bilat positive jo-ann bilat Muscle strength 4/5 LLE, 5/5 in RLE decreased sensation to left l4,5,S1 Extremity Common normals: normal to inspection and full ROM Neuro Common normals: oriented x3 and CN's II-XII intact bilaterally Sensorium/orientation: alert Gait (neuro): antalgic and assistive device used cane Motor exam: no movement abnormalities noted and strength abnormal Psych Common normals: mental status grossly normal, thought process normal, cooperative, affect normal, speech normal and activity/motor behavior normal Speech: normal speech Thought process: normal thought process Results Imaging Lumbar MRI: Attestation: I have reviewed the pertinent imaging results. Radiologist's impression: At L1-L2: No posterior disc pathology. Facet joint effusions. No neural canal or foraminal stenosis. At L2-L3: Facet joint degenerative changes limit flavum hypertrophy. No posterior disc pathology. Findings are causing mild canal stenosis. At L3-L4: Minimal broad-based disc bulge with ligament flavum hypertrophy and facet joint degenerative changes causing mild canal stenosis. At L4-L5: Minimal broad-based disc bulge is present with facet joint degenerative changes causing no significant canal stenosis and minimal bilateral neural foraminal stenosis. At L5-S1: No posterior disc pathology. Facet joint degenerative change. No neural canal or foraminal stenosis. Incidentally noted is a broad-based disc bulge at T12-L1 partially visualized on today's study causing no significant canal or neural foraminal stenosis. Additional Findings Additional findings: If on a controlled substance or opioids, I have checked an OARRS report on this patient and there are no aberrancies noted in the prescribing history.??If on a controlled substance or opioid a drug screen was completed and reviewed within the last year, and if there has not been a drug screen completed we ordered one today to monitor higher risk, state monitored pain medication use. As part of providing excellent, safe, comprehensive care, the following was completed at our patient's visit: 1. A medication reconciliation and review to ensure accurate knowledge of current/active medications, including asking our patients to inform us about any [id number] medications or herbal remedies/nutritional supplements/alternative remedies. 2. A review to specifically ensure our patients have had annual screening for screening for depression, screening for tobacco use, and screening for unhealthy alcohol use. For concerning screenings had a discussion with the patient, provided patient education, and recommended follow-up with primary care provider when appropriate. If patient noted with a risk of falling, they received education on strength, gait, and balance training to prevent future risk of falling. Assessment and Plan Assessment and Plan (1) Lumbar radiculopathy: Assessment and Plan: The patient has had over 3 months of moderate to severe low back and BLE pain with functional impairment and inadequate response to conservative care including NSAIDS (unless there are contraindication such as concurrent blood thinners), multiple oral or topical pain medications, and home exercise program/physical therapy.? Patient has completed >6 weeks of guided home exercise program and/or formal physical therapy program without relief of their symptoms.? The Oswestry Disability Index was completed, and the patient scored a 68%.? The patient noted the following:?? severe pain impacting ADLs, sitting, standing, walking, lifting, social life, sleep, travel (2) Lumbar stenosis with neurogenic claudication: (3) Lumbar spondylosis: (4) Cervical radiculopathy: (5) Cervical spondylosis: (6) Chronic prescription opiate use: Assessment and Plan: I feel these medications are improving the patient's quality of life and allow them to tolerate activities of daily living as well as participate in recreational activity.? The patient does not report intolerable side effects. The patient is NOT opioid naive and non-pharmacologic and non-opioid treatment has failed to significantly relieve the patient's pain and improve functionality. The patient has a diagnosis that is related to a somatic or visceral pain etiology. ? ?? I reviewed with the patient the potential risks and side effects with the use of? opioid medications including but not limited to respiratory depression,? sedation, and even . Within the last 12 months I have verified the patient has access to naloxone should? these effects occur. The patient was advised to let? their family know they had Naloxone in case they would need to administer? the medication. I advised the patient to avoid the use of any other? sedation substances including alcohol, THC, and benzodiazepines while? taking opioid medications due to the risk of compounding side effects and? detrimental outcomes. within the last 12 months I have reviewed the [employer]ARM [employer]MENT [employer], pain treatment agreement and urine drug screen.? ?? A drug screen was completed within the last year, and no aberrancies were noted regarding their use of controlled substances. The patient understands they are subject to the terms and conditions of the pain contract that they have signed. ? ?? I have checked an OARRS report on this patient today and there are no aberrancies noted in the prescribing history.? Plan lumbar MRI reviewed with pt, trial left L4-5 L5-S1 TFESI under fluoroscopy for lumbar radiculopathy and lumbar stenosis with NC pt declining scs trial at this time, will consider if he fails TFESI continue f/u with neurology continue current medications, tolerating well without side effects. risks vs benefits reviewed f/u 2 weeks after KEMAR
== END 2025-06-05 08:37 | disposition home or self-care (01) ==
LOC: PM 08:36
PROVIDERS: PCP Family Medicine; Visit Provider Nurse Practitioner
DX: M54.16 Radiculopathy, lumbar region (principal); M48.062 Spinal stenosis, lumbar region with neurogenic claudication; M47.816 Spondylosis without myelopathy or radiculopathy, lumbar region; M47.812 Spondylosis without myelopathy or radiculopathy, cervical region; Z79.891 Long term (current) use of opiate analgesic
CPT/HCPCS: G0463

== ENCOUNTER 2025-06-24 09:07 | Day surgery (SDC) | payer MEDICARE, SELFPAY ==
--- OUTSIDE RECORDS SUMMARY | 2017-09-15 07:32 | XMS_ITS | Continuity of Care Document ---
Author Organization [facility] Address [address] [place] [address] Phone Care Team Providers Care Curb And Gutter Laborer Name Role Phone Rufus SANTOS Kavin Unavailable Unavailable Advance Directives Directive Yes / No Effective Date File Name No Information Encounters Encounter Description Practice Location Reason(s) For Visit Diagnoses Date Provider Providers Copied on Encounter [facility], [address], [place], [id number], [place] tel:[phone] [facility] No Information Rufus TRACY Kavin. [address], [place], [id number], [place]. tel:[phone] Family History Family Member Type Diagnosis Age At Onset No Information Payers Payer name Insurance type Covered republican ID Authoriza tion(s) No Information Social History Type Description Quantity Date Captured Comments Sex Male Smoking Status No Information Chief Complaint And Reason For Visit No Information Reason For Referral Reason For Referral No Information History Of Present Illness Encounter Date Complaint History Of Prese nt Illness No Information Functional Status Date Functional Assessmen t No Information Instructions Date Instruction Additional Infor mation No Information Assessments Type Assessment Date No Information Patient Care Teams Name Effective Dates (start - stop) Status Members No Information
--- OUTSIDE RECORDS SUMMARY | 2025-06-24 09:10 | XMS_ITS | Encounter Summary ---
Author Organization [facility] Address [address], [address] [place] [address] Care Team Providers Care Lithographer Helper Name Role Phone Unavailable Primary Care Provider Unavailabl e Reason for Visit * Reason Comments Medication Refill Encounter Details Date Type Department Care Team (Late st Contact Info) Description 06/26/2012 Refill [facility] [address] [place] [phone] [place] [address] [place] [address] [phone] Medication Refill Social History Tobacco Use Types [...]
--- OUTSIDE RECORDS SUMMARY | 2025-06-24 09:10 | XMS_ITS | Clinical Summary ---
Author Organization [facility] Address [id number] [address] [place] [address] Care Team Providers Care Program Advisor Name Role Phone Milan Mehta DO Primary Care Provider [phone] Allergies No known active allergies Medications lisinopril [...] drink = 0.6 oz pur e alcohol) [facility] Utilities Answer Date Recorded In [...] 1986 Adult BMI Follow Up Plan 1992 Zoster (Shingles) Vaccine (1 of 2) 2024 COVID-19 Vaccine (2024-2 6 season) 2025 07/16/2021, 01/13/2021, 12/19/2020 Influenza Vaccine 05/20/2025 07/16/2021, , 07/03/2015 Tobacco Screening 07/25/2025 07/25/2024 Adult BMI Screening 07/27/2025 07/27/2024 DTaP,Tdap and Td Vaccines (2 - Td or Tdap) 07/26/2033 07/26/2023 Goals Goal Patient Goal Type Associated Problems Recent Progress Patient-Stated? Author Return home General Yes Bebe Del Valle MSW Note: Evaluation of progress towards goal: In progress: Return home when able to DC. Medical Devices Not on [place] [id number] Advance Directives * Full Code (Latest Code Status on File) Date Activated Date Inactivated Comments 07/24/2024 5:22 PM 07/27/2024 1:04 PM Care Teams Program Advisor Relationship Specialty Start Date End Date Milan Mehta DO PCP - General 10/24/18
--- OUTSIDE RECORDS SUMMARY | 2025-06-24 09:10 | XMS_ITS | Clinical Summary ---
Author Organization [facility] Address [address] [place] [address] Care Team Providers Care Haulage Boss Name Role Phone Milan Nails MD Primary Care Provider [phone] Pascale Souza Unavailable Nghia Galeas MD Unavailable [phone] Allergies No known active allergies Medications HYDROcodone-acetam inophen ([place]) 5-325 MG tablet 1 tablet every 6 [...] he was evaluated by a surgeon at [facility] and was not a surgical candidate. He [...] continues to follow with pain management in [place] and had ablation with no significant benefit. He has quit medical marijuana. 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 Lumbar radiculopathy 04/11/2024 Leg numbness 04/11/2024 Encounters Date Type Department Care Team Description 05/07/2025 Refill [facility] [address] [facility] [address] [place] [address] Edda Bass MD Rhinitis medicamentosa 03/27/2025 8:40 AM EDT Office Visit [facility] [address] [facility] [address] [place] [address] Edda Bass MD Bilateral impacted cerumen (Primary Dx); Rhinitis medicamentosa 03/27/2025 Bamboo flowsheet [facility] [address] [facility] [address] [place] [address] Edda Bass MD 03/27/2025 Travel from Last 3 Months Family History Medical [...] file Insurance [employer] MEDICARE Care Teams Haulage Boss Relationship Specialty Start Date End Date Milan Nails MD PCP - General Family Medicine 12/08/23 Pascale Souza PA [address] [place] [address] Physician Yeast Tender Neurology 07/19/24 Nghia Galeas MD [address] [place] [address] Referring Physician Neurology 07/19/24
--- OUTSIDE RECORDS SUMMARY | 2025-06-24 09:11 | XMS_ITS | Clinical Summary ---
Author Organization [facility] Address [address] [place] [address] Care Team Providers Care Manual Equipment Mechanic Name Role Phone Unavailable Primary Care Provider [...]
--- OUTSIDE RECORDS SUMMARY | 2025-06-24 09:11 | XMS_ITS | Encounter Summary ---
Author Organization [facility] Address [address], [address] [place] [address] Care Team Providers Care Loss Prevention Representative Name Role Phone Unavailable Primary Care Provider Unavailabl e Reason for Visit * Reason Comments Medication Refill Encounter Details Date Type Department Care Team (Late st Contact Info) Description 07/10/2012 Refill [facility] [address] [place] [phone] [place] [address] [place] [address] [phone] Medication Refill Social History Tobacco Use Types [...]
--- OUTSIDE RECORDS SUMMARY | 2025-06-24 09:11 | XMS_ITS | Encounter Summary ---
Author Organization [facility] Address [address], [address] [place] [address] Care Team Providers Care Pest Control Supervisor Name Role Phone Unavailable Primary Care Provider Unavailabl e Reason for Visit * Reason Comments Medication Refill Encounter Details Date Type Department Care Team (Late st Contact Info) Description 03/14/2012 Refill [facility] [address] [place] [phone] [place] [address] [place] [address] [phone] Medication Refill Social History Tobacco Use Types [...]
--- OUTSIDE RECORDS SUMMARY | 2025-06-24 09:11 | XMS_ITS | Clinical Summary ---
Author Organization [facility] Address [address], [address] [place] [address] Care Team Providers Care Rod Buster Name Role Phone Unavailable Primary Care Provider [...] Plan of Treatment Not on file Insurance [facility]
--- OUTSIDE RECORDS SUMMARY | 2025-06-24 09:11 | XMS_ITS | Encounter Summary ---
Author Organization [facility] Address [address] [facility], [address] [place] [address] Care Team Providers Care Demo Specialist Name Role Phone Unavailable Primary Care Provider Unavailabl e Reason for Visit * Reason Comments Medication Refill Encounter Details Date Type Department Care Team (Late st Contact Info) Description 10/23/2011 Refill [facility] [address] [place] [phone] [place] [address] [place] [address] [address] [place], [place] [phone] Medication Refill Social History Tobacco Use Types [...]
[2025-06-24 09:20] VITALS: BP 139/83; PULSE 72; TEMP 36.6; O2SAT 99
--- OUTSIDE RECORDS SUMMARY | 2025-06-24 09:25 | XMS_ITS | CCD ---
Author Organization [facility] Care Team Providers Care Key Attendant Name Role Phone KIRN, DALLAS Unavailable Unavailable KIRNUS, DALLAS Unavailable Unavailable CONWAY ., KALI Consulting Unavailable LAKSHMIPATHY ., NARAAYUSHATH Admitting Tifafny vailable HOUSE, DR SOLO Primary Care Unavailable [...] Provider Unavailable Temi Marshall APRN Attending Provider Mk RICHARDS, Renetta Marlow Attending Unavailable Milan [...] six hours as needed for pain HYDROcodone-acetaminophen ([place]) 5-325 MG tablet 1 tablet every 6 (six) hours if needed for severe pain Active take 1 tablet by jay th every six hours as needed [place] 5-325 MG 1 tablet as needed Orally every 6 hrs Active [id number] 200 actuat albuterol 0.09 mg/actuat metered dose [...] Range Facility Patient Letteron 03-13-2025 Patient Letter [id number] [facility] 03-04-2025 Coding Summary HTMLBase 64 LlgfllrbXYe7uTd+PGhlYW Q+RC1AEJTyD96mqNEloM7k B7FQSDzLMrwqTIJCKVbKIg MtvqFrLS2bpHDqWGFp IC8+AR9iWFDqOetoeVKhv5 G2yFD1B66fld7lFMqagXH9 YPTqGzLwaxtub1bnrCk4SY cuNmluOyBt INBjwY41OSG8nT86Ty16xF MdzAVqp9kthDu6LhUcCZDq MWY9sDsyBCfuc1MrHCVlG6 0ouNQpo5A8 SUZxcOnhaEErWmOtaKO6dU 5cEKjommker4tdkzytJbp6 qm42vWKdn0S7lUF8N9Viak D4JQWnrQGt ZvsruGCBgT0uagydq9cllz asCuEeFAIrLVf9CEo8TZGq sDbjRxTkSS96DSW6QWRhlj MoT6JuRPRp hRgqYmP3z0L2Mk4UZ3OPVi pfD6KSZFELPPosaWC+PC90 px14M8NaDtcsTze6EHXpLL G0gRZ0nN7n SDGwGMuon3M0xDX5W5Aqzm Wqrz3as3ctQHOgCDkdW08v xNQvg7C5RMYdaER1XYYorV bkVgEcnR97 Oyc+JZHdtRxzh6RhQkxdv5 fyq6zvzEf8UwskNYSterFt fKooTMG7k8TqTi6iQGTcpG H0iRM5bK7h DqIxAyE2LBzrY292QyUymQ YmSzhwJ86jX7CrwCN+PHRy Ueh7CHMkkYjuEH1qO4NxCR RpbmctbGVm mOcxDG5hEXKgvdclTTXtaT 7cYREmP6g1YgUoWvP8HEod S2ObJIAzgjcrQr31pP9bJq EsIsQ8QLyg N9DrwyG2MXGafFTpQPflQG W4O48ik1C8GYJnIFKgMXU5 vNS0lS7euQzafcgbeDUhhN sgdmVydGlj OZizGOehC039MZWehFjuLm NvZGluZyBEYXRlOiAgMDYv MTYvMjAyNTwvdGQ+PHRkIH C8kUbmSHNm kREtVAkvFx3wcLuxrQrlNL 3eBRSzwlvuZFVirG7dVAMe rQRsyNveRR9fLKPnpvrvr7 97EdWjKAJ8 FNIgoAIjA5DmrW7aPoPrLU NiHXFlM2EhgDVuAUslY109 ICmmLfU9JWSlwpLzO9SvFP FsaWduOiB0 d3L6Rw5Zy7DzpzcrF4OecK XpCsXzLgujVAv3O0MvKsld dHI+XS85VGUwTM27TTj3OW F6pTamKXdt WYNdG5WddI4zClYtZRQvPA RkOyc+PHRhYmxlIHdpZHRo OFbaRRLeDlPmyTqrCL1qLa 9yZGVyLWNv aQhthAVwCkQdp5fhRCGkMO adHT8whKmhR3OtkLM7PLWm u7o2Vl66A90eO8OilDE+PG DieVQ9lVC2 vB4pKmFeWaE5CYquP465Yt TvwOJnRnslv3wae1jvmOz4 BqK4ZKKfupNcoLnwALX3p8 GvIa39O44d IHdpZHRoPSIxNSUiIHZhbG yawk2dvB1kNa1+PGNvbCB3 hCL3cA5kStKpKmG6WSlzS0 49InRvcCIv Bywgv8dtq7jbhUp8CmHaYA RxqpMbgTgiHWJ9n2NtJg73 N4VdqWwph9DuSlh6ss60dF Nhg9L5sCP7 F4EtWWTkyzfwyVBdbExhDD 0hTQBtfrghBFNzaR4lYCDw I5n1ZvQbNtD1VEchI7Dysh B5ZBOkhVPx XFHfaBFRfA8bxqqkf1jjio koAhDrVOPjPPv5GKu5CAVh oNayFcUuTSC5XeI1VUL7jM QbuN0vyLvu iqntuH4xBbk+AAI3rJQeyZ BWCD4qDknohSI+PHRkIHN0 tZelLBnxTRFdwX6uQRFkX1 h6VfOcDyD4 RMvyD8HsgvE4UHHwkUWdDH RxiPZBfB9ajivon2orslsl OaObAEQyBQf6CUc7RLDllY duOiBsZWZ0 ObP5HEQ7vWGsnM6dsXpnze lnvW0gDbc+QmlydGggRGF0 VCq6Y7DgVzn3IRScjPkoFX 0ncGFkZGlu Fj5zpTbsaCblIP7uMAVusn yqf544TbSpu1yjNTWddEKn XLltLMA7U38sf4D7QWOgWT XrRGJ5tZL1 mT2yaVyqcavzfXFexQmlmn FsrCimFUgpFEcyS832MLOq bBzjXpNcPMy0A4QpPcz6AU FzcBiiSF0t xYAhIVfsJp8ueQjwfLcvBR 6iWTGauzcvh061DfHkv3vq NWXilOLcSYgqCMF7U65rs9 Q1WQEwPUNv BZZ5gVE8eO3jzEelobrnfQ VmdDsgdmVydGljYWwtYWxp M332GUYryQfzHgGxbPu3J7 XbBkm5MUBc rKeoKI0pcTAbSVgwBd6laM etnOsqQO5eLDWcmxqnr982 TnKov9tqAUZjoIBaOYbkTQ T1U23fg7O1 JBIoVLPkIQT0qXP0tD6xlH lnbjogbGVmdDsgdmVydGlj GWseXSvfT904IUPomSjqVb BhdGllbnQg DNkkBKo9R2MuFkosyJI+PC 53ANTjHC32kNEbgFJdw9td yMi9CeUmTPKdPAD0aHsmWA bkl4CmHXFp P10anGKwl6C5IZVoiLodtL UzRcYqfPX1vQ6mXYmdksid v5zawdeaUezsf8qqzu20bN 49C89mGKgc ZHRoPSIzMCUiIHZhbGlnbj 0avV8wBo5+UNIxjBN3xQV2 kP1oQYQeUfR5RFeoI058Fe RvcCIvPjxj y2ori7okeKf1RlC0ZOCxjf PuqMvaQCP5e7TxVw86W93r IHdpZHRoPSIyMCUiIHZhbG jslq3pxE2u Ii8+PSChmFS2cHP1mF0iCo ItOpK8OKnsQ687DgKzgRWo WnsvH16dU9ZahRU+PHRyPj c7TJPzkPrg AR5ijNJwFUsdKe7eKII8Zg YzTzLpKLreV3DlMRNawzom azmlbMY7SENmMDIwsY02Yo 9udDogMTBw wXNKbF0ioyuez9fdquxrQs VwVJGeCRi6QOx8NIMemVzg ImPjVXV0IeC7NIR9wADowT 1hbGlnbjog rH4yO9SiOWVpyejvQs96lF 5wYjSwHuI8HIdlOtz+U0VE YW3THijwZ6CTIHWXIKICO2 FSRDwvdGQ+ MTFqNKS7fYyqUEojQWPbfT 3yICLiL9j0ZqNaIrX2QEka F4GnAEFpzdgvSb60bH7qIk DmRaN2QOis T3EexpO0LYDmaNImSAihUD T8B02wu7V9HZBpRQSwEGA7 hWS5rU5hxNoxrbzqwGAlmY sgdmVydGlj MHmmFXswZ588OABecAhuRp NsFzPaQiA2IjV7M2KaFhj9 RNYhrNhcVN1ooVYtZGqfWm 1yaWdodDog XG6eWJYuamvhPLHgcC1tYF AlkUXmiKehEG6pSQQlxssu o462LnVgLKQ7LKUbtDHnS9 VocI8jAuIh EZJnSYAkS8IygRJsYCwqU9 39ZDzeLqX6GDAbmrZdJ9Sg BLImlVjdWfA6g1B4Hd91CB BZZWFyczwv dGQ+EPZiNUO8jZeyGOenNS MzaN5ySRHkM6x0MrWiXhD4 GWnaG0XdQIKbnjorNk77aU 1yZdUqWtM4 DGlxH7ZwzpI0RDYrwXUlVE ehYSI6I51wh8H4CGHvRCVk LOM5jNJ6bP1zfVxflarbcV VmdDsgdmVy eOarPGsqEXhqU829HMSelH uiOb3HUXD0Y3WuUya8LCEf nOszZS6huSCqCMswJi5pgD gzeLdxTH9r ZAPsefvnQYDziY6bLYBafD JopRasIJ3sCPFmkchmw198 LsEeYON9MEUwhIPnZ0WbuG 9yOiAjMDAw RNFjO2EoeICkEWkrH336ZD nkAfA6AZVlrkSuP3DqEBMa tDkjDhR1c4X6Ah5XXEnwT8 ArJ4IqnLwe dGQ+CJ77my23V8WqObyiGq a9LTOmLYK2hID8eK4wBXMt UIzkn1J2oNF6L8EzeoZgai 1hk3ukEEYk RCghZ82qrLTnv8G0QSQzxW X8SKAvbBdcRoQcqN72Vgd+ TXZfhLkfr5WpQgxbk3ppw5 toaCs2VpPs GJHkrwTtkLncSBL0f0KvEi 32F47dTMkfKRSqJIPaXZIh IAUlpBkact7hzP3aDn2+PG CetQT9oDK8 pJ4tWmMdDfP5FKsaU554Gh PfuFTvFnzel5njr9xzpKk4 RtKaAXXvlnAcqYekNDZ3h9 QcPe88N1Nu hPcuz1PnRml3ez50pAKtc5 C6eTV7S1CcIYAndihcaKAc aTsyLH7bKDGfnwztWDCymJ 5cPMUyI3m1 ChIgGzH0TQnsH9PooxY3AH IpcOJySXLpeTXSlL9jlwvj j4siguguZoNpOXRnUGg7ZW q7NYKsrZsf RwAuVBZ3PpE4NSX6pHPnlE 6fyTlsttkelI4tGha+UGh5 n3kbqVDdJH0enWD2ZI92CU 31tOSav2G4 rEO4L0IuPJYevqyzwcjanA T9KBGoOAMwhY12Ap8hvLif Sf4rDPYgCYO1RTSwvHDcC5 QciI6mBgRo AUReZPXfM7TryNSaMGnaK6 01CSxvQzF2LVZviiYvO4Be DVBwrYnfVdB6y0T8Gz3EZR 52QZ26PD37 tPIwa6N1wKW0I0PlPQEnbk zfslrjqGG9PHZvFUQyqV70 Gd5clZzcAs7iBFBqQZI1PY LaoRDoT5Ku rV6rHoSdWPWiMOQkB8FddK YsYBoxL937GXspLtP1ADGg eqAuV6KrWWNblUroVcS9r8 D6Nv5PLh75 JG42IT18bLGlf1X0zQH8W0 ZcOMLpipqxhrxcxCN2JXLs WZXpeR39Ls3pcYsgKa0gLA KvPPO7NBSs jCUyU3NnqQ4lKwKhQREhCL OeB2HaoJQyUXugD781OGpg QeV9HGPqxtRuB3XrXEXawJ tnEiV6f4X8 Sb3POSkrrvn9C7QfUculdV I+AE60MKIsQS47nYXdpRZb s7sjxDf6UiZvYMRaRLM6mH xtSLgid0Ta ZXI (more content not included)... [facility] Provider Orderson 02-25-2025 Provider Orders [id number]#1.00 [facility] Consent Formson 02-22-2025 Consent Forms [id number]#[id number] [facility] Anesthesia Noteon 02-21-2025 Anesthesia Note Patient: RICCARDO HALE Age: 49 years Sex: MALE : 1975 Associated Diagnoses: None Author: Eitan Ramírez MD Postoperative Information Post Operative Note Health Status Allergies: Allergic Reactions (All) No known allergies Problem list: All Problems Chronic sinusitis / SNOMED CT 04884314 / Confirmed Side effect of medication / SNOMED CT 492026960 / Confirmed Headache / SNOMED CT 61205380 / Confirmed Hypertension / SNOMED CT 9558746953 / Confirmed Ileus / SNOMED CT 2532973061 / Confirmed Migraine / SNOMED CT 68072335 / Confirmed Nausea / SNOMED CT 6025485852 / Confirmed Obesity / SNOMED CT 6577120270 / Confirmed GRACIE (obstructive sleep apnea) / SNOMED CT 762748482 / Confirmed Sleep apnea / SNOMED CT 444189596 / Confirmed Umbilical hernia / SNOMED CT 9498224610 / Confirmed Physical Examination Vital Signs (last [...] on: 02/21/2025 08:59 EDT] Eitan Ramírez MD [facility] Anesthesia Note Patient: RICCARDO HALE Age: 49 [...] All Problems Chronic sinusitis / SNOMED CT 17311547 / Confirmed Side effect of medication / SNOMED CT 289335499 / Confirmed Headache / SNOMED CT 49634959 / Confirmed Hypertension / SNOMED CT 7230015406 / Confirmed Ileus / SNOMED CT 5981629094 / Confirmed Migraine / SNOMED CT 65367073 / Confirmed Nausea / SNOMED CT 2019392399 / Confirmed Obesity / SNOMED CT 4129085035 / Confirmed GRACIE (obstructive sleep apnea) / SNOMED CT 634844949 / Confirmed Sleep apnea / SNOMED CT 687903762 / Confirmed Umbilical hernia / SNOMED CT 3245343693 / Confirmed Histories Family History: COPD - [...] 21:34) Review / Management Laboratory Results Plan [place] [employer] (ASA) physical status classification: Class III. Anesthetic Preoperative Plan Anesthesia: Monitored anesthesia care. Anesthetic plan, risks, benefits, and alternatives discussed with the patient and/or family. Patient verbalized understanding. [Electronically Signed on: 02/21/2025 07:31 EDT] Eitan Ramírez MD [Verified on: 02/21/2025 07:31 EDT] Eitan Ramírez MD [facility] Inpatient Patient Summaryon 02-21-2025 Inpatient [place] [address] Patient Discharge Instructions Name: RICCARDO HALE : 1975 Patient Address: [address] [place] [address] Primary Care Provider: Name: MILAN NAILS DO After you are discharged if you find you have any questions, please, call [phone] ext [phone] to speak to a nurse. Discharge Diagnosis: [...] alcohol and/or drug addiction problems; contact the [facility] 11/04 Crisis Hotline -Text 4HSWZ li 119999. If you received any narcotics, sedation, or [...] business decisions or sign any legal documents [facility] would like to thank you for allowing us to assist you with your healthcare needs. The following includes patient education materials and information regarding your injury/illness. RICCARDO HALE has been given the following list of follow-up instructions, prescriptions, and patient education materials: Follow-up Instructions With: Address: When: MILAN JAQUI With: Address: When: Martinez Gonzales [address] [place] [address], [place] [address] Business (1) , only if needed Medications [...] cap(s) Ora (more content not included)... Normal [facility] MAGR Intraoperative Recordon 02-21-2025 MAGR Intraoperative Record MAGR Intra-Op Record Summary Primary Physician: Martinez Gonzales MD Finalized Date/Time: 02/21/25 08:30:12 Pt. Name: RICCARDO HALE /Sex: 1975 MALE Med Rec #: [id number] Physician: Martinez Gonzales MD Financial #: [id number] Pt. Type: D Room/Bed: / Admit/Disch: 02/21/25 [...] Ramírez MD, Debra RN Radloff, Leigh-Ann CSFA [facility] Role Performed Anesthesiologist of Credit Officer Spinning Frame Changer Record Time In 02/21/25 08:03:00 02/21/25 08:03:00 [...] Ramírez MD, Jessica Arredondo RN, Melvin Causey [facility], Dale Rothman Last Modified By: Jessica Arredondo [...] RN Airway Maintenance (more content not included)... [facility] MAGR Postoperative Recordon 02-21-2025 MAGR Postoperative Record MAGR Phase II Record Summary Primary Physician: Martinez Gonzales MD Finalized Date/Time: 02/21/25 09:09:46 Pt. Name: RICCARDO HALE MARYSE LiconaB./Sex: 1975 MALE Med Rec #: [id number] Physician: Martinez Gonzales MD Financial #: [id number] Pt. Type: D Room/Bed: / Admit/Disch: 02/21/25 [...] Signed By: Elvira Hirsch RN 02/[facility]/25 [facility]09 [facility]-21-2025 MAGR Preoperative Record MAGR Pre-Op Record Summary Primary Physician: Martinez Gonzales MD Finalized Date/Time: 02/21/25 08:05:28 Pt. Name: RICCARDO HALE /Sex: 1975 MALE Med Rec #: [id number] Physician: Martinez Gonzales MD Financial #: [id number] Pt. Type: D Room/Bed: / Admit/Disch: 02/21/25 [...] Signed By: Jessica Arredondo RN 02/21/25 08:05 [facility] Patient Handouton 02-21-2025 Patient Handout Gastroenterology Diverticulosis [...] exercise. ? You smoke. ? You take gwxi-jcb-zgarbqt pain medicines. ? You have a family [...] these instructions at home: Medicines ? Take nqst-xsd-kigtuai and prescription medicines only as told by your provider. ? If told, take a fiber supplement or probiotic. Managing constipation Your condition may cause constipation. To prevent or treat constipation, you may need to: ? Drink enough fluid to keep your pee (urine) pale yellow. ? Take ehov-sly-iuhlonw or prescription medicines. ? Eat foods that [...] provider. Document Revised: 06/02/2023 Document Reviewed: 06/02/2023 [employer] Patient Education ? 2023 [employer]. Radiology Colonoscopy, Adult, Care After The following [...] for 20?30 minutes (more content not included)... [facility] Outside Recordson 02-06-2025 Outside Records [id number]#[id number] OTGTIFF [facility] Release of Informationon Release of Information [id number]#1.00 [facility] Coding Summaryon 11-26-2024 Coding Summary HTMLBase 64 TxlzchkcXRf8dRl+PGhlYW Q+SU2OWLUeZ79cgTJwmD1l C9FVTEqBFgefRPHLZVtVBl AzqoUgFZ2aaQWcRNJt IC8+QF0kYZAeNbgzfSVqq2 B4hXX1C19nyy7wWJnzkBL5 REGxQgHdzfrqy2oulPn5LW cuNmluOyBt OQMmvY76JBV4rO62Ok73hJ PyqFUha7giiCq4JlHiNXCe ZEY4cDvuBQhyo7WlKLRvK5 5kiZOde8Q1 MYTgeJpdaMOcRgIfsMH7zC 5yXLfaslpvp8sjzjrnFgi9 jc15cAJwi0X9cEK2M2Rpkm O0IRRqmOCd HuzmmLRXeC5zcvxyh9wurv xeUjLgFLSgOSx1XNo4QJMl dTbcGjEoOO01ZYJ8UWPugi YpR7WpLQWv oMeiDxX1p7A8Sx3AH3DIXg esF8GLGZUALSopiCS+PC90 vd94P4WnVrnuEmt2NBElKT P7wEH5qJ6q BXKkILuvh1X4sBW6D0Zgtc Grcn1uf4amSIAzBDdwD94m hRGio4Q2BEWnqPY4XHFfoG szGkVzgD26 Oyc+ANZqaGsdp3WgUmssy6 zux4qvkFk1FylkVQMtowPc oCgaLSZ2v2AfFf5eTNFzaH T0fQB4dT7w SjXsOhJ0DNcqG409TaJkmJ ZrEgaeS75oT0DehDY+PHRy Sdg0XHIiwPitPH5oJ6BaEW RpbmctbGVm rKgnZA5tJVBdthlsYFWzvT 8qNZUhK3l1NfPwCkI8LZwq I1IuRFBapdnwGg88vI7aXb WcHmN9VWjo O4HdbyS1IDDqwPJxWKibUU R7P30cz8U6HDXtRZMoBVJ0 sFD0vD8xnWbmibxgwYGmnY sgdmVydGlj MBoyOYvhV377CIVlwDwmOp NvZGluZyBEYXRlOiAgMDMv MTAvMjAyNTwvdGQ+PHRkIH K1kYyaTAZx iEBqYLsqGy4hoCgjiXelTZ 0wIYKubyalPJAvrE2tKFJj yQXnvDiaDB9oOSHjvzyzn2 88AfLsFQP0 UPQsvTHiH7AgjL1bNvAyWS XqXWLjM6UhuPGcYPetX639 WVquPgL2XDNdmdVaF8JnGI FsaWduOiB0 q3P9Wd7Ic7FmgiuqG3KkiB VsYdJeWycvDVo1C3DaMdrg dHI+VP23TNKhQV32QFw7UA S4dVdeQKvs IMGtS2WoxH9vDdJgJSNbJX RkOyc+PHRhYmxlIHdpZHRo DMzuDKChSlUyaBkiOO6uAa 9yZGVyLWNv ePuaiZAcMkOlb0pgXVEmRB utQU5jsXecT2RzsJM3MFGu r3o3Ej72A16uD7KowZD+PG XmmKE1kVH9 iY0sIcBmJgG4EMreJ302Kh RdtHNbOwwgp1qtm5xelLu0 GhJ9FKIkbiNopOxaOGL4b6 CiRe65T55s IHdpZHRoPSIxNSUiIHZhbG nwbf9gdY1qJo9+PGNvbCB3 zFY5oI2fChTpVnO8IAiuM6 49InRvcCIv Riqns8sph5eavHg7VtXvWK LqroSjuFreQSE8k1YkMf97 N8SqxXcqu5ByQmj1to56zR Zut7T6gHR3 K1RtMDOejsropEArgDnbWW 1aJLFpibzpQVJzvJ0jSVSu S5p7PcMpVbT4NDgfX1Vwoz Q9EQKwgXMu OAWrnZECcK4gfxehy9mwvv dlOlFgFJGtGRb9HUf3OSZh rKdhLwKiKPQ1UmM2GUI8sF TlwN1eiXti ghyntF9kCem+ZOE5dABxeJ MALN7lDlzoeIB+PHRkIHN0 nIqjTHroENEqbP7bGSQsB7 t8KhBcSfN6 KCcpM3TvvkG2IDKlnRYlRS YbdCMJbZ7zrgtoc9vzfwdm ZtJdOCXqCKy0NJn1IOYemZ duOiBsZWZ0 BmN0HSV7hLQtqL1nuOniwg ohdT1dXkg+QmlydGggRGF0 ASw6R3FiTdm2KAJpwFfyVF 0ncGFkZGlu Cq7igXyrhNysJH2oVXTwez mng979CaTkq6jnTCTwiSUy BZvlPTV7H69kq7L8MZNeJR ByNLK4zPU2 cK8sgUfgpmwioMGgcDvoth RkbWfjWIweEMjxV598QKKr uCvpAkVcEXx1M5TlLdk8GW LrmHqaSR7z vZUfAOlpFj3cxNfcoBgpRB 6dDTTfeshxf014FuXpf7lr UXXzdBNoZCfhHVA4W16ol4 G1YUUfQIVi NVD3oHO4lK6brZilauplrY VmdDsgdmVydGljYWwtYWxp G114FBNxfOckWgFszRt9E3 CbVwb7KHZt lMvaOC8bsKJeTYeoUd2fiT rdcRqlXH2vRJApyxacn045 KhZdv0gpAKCejIOwPCrcTC O3O42ab0Z6 PQGxOZUaGQJ6qYD2nD8daQ lnbjogbGVmdDsgdmVydGlj WQyiERimB371UMEuqSkwBq BhdGllbnQg BNfvASj1P4QbFwynhKY+PC 83EIOkRJ10nWBczAPbg5ht eYi2MjUeRIHfNMU4rAheFD ugh1CvALDy Y71smQHgn5R9JTFwdOhysC XnCxXasJG3lY4cBVblraei h2buldciUhsrd4yeuc90bI 43J25hIMnq ZHRoPSIzMCUiIHZhbGlnbj 0vgY8eFt9+OXJeqAG3xSA4 rN7yRLNwScX9MHzdO532Op RvcCIvPjxj y1jej4cxiAx6YaW9YTJocz HuvTtnZAL6d8VfKz70Z67q IHdpZHRoPSIyMCUiIHZhbG ozfw0jnB0o Ii8+UFSvyOL5yHT2uC6bFs ZcKbW8SYvyI650BhPxhLLu SfvqU65vV4NdbGD+PHRyPj i6WZOpgDiw YW8ifBJhSKbnJr0cZLJ0Va HjOrYeGQqrB8AbELIxpwve zlebaST6DKErXHZatU16Nc 9udDogMTBw xLNJzX0mogrls3czxatzQj YyPADnTZz2BTo1FNLsoChp AeEkXBS5AbL2HQJ1gADohW 1hbGlnbjog kS6dR9WzJIHszkfmAa87mQ 6mRfFpUdX5WDxfZeb+U0VE OM2BEjxyM3TPQBZIWKQMI5 FSRDwvdGQ+ IIGyNGI0zGqlLByrVFSdzO 2nQWHjM9n8BqPsRsC7HVfr S7WeCRRxwybdAs88uV5aOj JtFwX9IDxd R0BozaA5YHKaoDLxBIuiSA D6Q48cf5F6XLTzKQOuGUR5 fFW5uU8trGtanmwxnWBzsL sgdmVydGlj ISndLUnzR442VUGtjLbsPg WzQvZkYaF8RlJ4L5OrGjs6 AKEhoRytZO1ebGVkQGhsUu 1yaWdodDog GX9rHSUswhrvMVFpuB6nVN ZkkSOfzUvrUY4gMPIrxmpp h978KdLmPMD5MTBcfDJsL7 SukL3sAvEc HPYrKZNfW3VukTHkPSeiE5 43QMksWwP3WKBwftGpI3Lc HLCcnYicJtB3v4U1Bb43WU BZZWFyczwv dGQ+UQUkKGS4lCqvKQqwIH WclY1dGRUlR5m2AcSnZxG0 VXaiP3ZgJSFvdheiLx77gO 2gFfSsFbL7 DHsaO1WvniD9RUCqcXSrNU coMWW0P09zd0R5ADYlVTEc NHX8xIA3oE0ykBivzwpeaI VmdDsgdmVy lVhyHZvuYIuyT998KGPlfH viYd4IDJZ8O5HoNyc2ILPr lAxpGV9bwVJaVPjwNu5icF yuhFliFT1f UDCuefiqQGYlhO0tNRLwyJ PkxPzcOT6nDARcbujys813 EoMxSQO3SMKnvLTyC6YrrL 9yOiAjMDAw UCAmM6AbrVZsFBsdU589IR xgAcI4INTwziNlQ6UoSQLk aBqmTrE7u3F7Ze6XWMposK Q+NK48hl61 Y2SwEszyKom4LZQmBPD9nZ U2mW1mHYXsWFxfm8N9kXH1 Z4ZsifYqqr4ah6uuVEQzQV waL79wiUAt u8H9FJPjvRC5CMPyaIaoBj RhqS12Fot+KJLmmBspp5Py Hdcsk6zid8lpnEj0ZeCjBV IgdmFsaWdu LCE9j7JfNp94W96yLXlxGP LgBIQkMBAfANTgrSrimh6c cK0qAa3+WJEtpUJ8yDJ2kU 2zQlAiCoX4 JZzeA630HcRyxDTrNobxq6 dep0xzcFl9HuJaKKMsagLc bDpmHUI6s9GrDo43U3FpdE ewn6UfDhd5 yw21qZHxs8J6sKL7I4TwTQ YcjsmybSBatEfoZB9gXUOh dbabKHXsfM4nNOSdY5p6Ge GrAlW0XZmy T6KmjfL4IOXjoISsPQLktK BCjQ2xbvxtv9hxkisxZuSy MSFpSKq7EKw4SEHjgIbtOd BvJCF2RtV8 JHH5lXHssW6hnBlcppebhH 9wOyc+VPx2m0fmbWQaEM6z cVB0UU36NP11aQWia8W9mI O0X5KiKNMa cwbbulkcnXA4RJPcAMOmiQ 57Ll8miTddGf1sSMYdTBA8 EYUucGGnY7OubA1iFrTkPG CwPWZhR7Tw iPBhIIknS850TBcuQgP5LK NvvrOtO1PyVIUnbYggZhQ0 m6N5Uz5OPW76UJ20XG35kA Cxl2K2qLU6 P5HoAPNbxsghxcxerDG0DW IvVLZsvJ98Fq8lvPpzNg4e HSTmANI6GRFllLAnH2KpsG 9yOiAjMDAw GMLoX7McuYRtIOogZ639UB vxMtS6XIEiapFaM4GdVMAl dCtfMlI0v0G1Ar3SJg36BA 46JN38tCWm v5T5pTK3Z7HnCKYbpriprf zdfTV5FLIfBHDfpX52Uv0c zLowEg7dCRVaATL0SKCusS CsK0VnkM4o FcPlVTDiXVHwG5MiaRJvJY isZ117GMyqWyG1GLKrzoTt C8YaSMWrdWnpStM4v1B7Cr 2WKYxlffm8 T6NgMkhleHN+BO29QCUrNK 06qFMonNYyp5dybTq4FpHv SHMbOUO9lVqyMKijl9JhAJ VlI17otKEt c2U (more content not included)... [facility] Reminder Messageson 11-20-19 25 Reminder Messages - From: MILAN NAILS DO To: [facility] Clinical Pool ([facility] [place] Sent: 11/19/2024 07:59:43 EST ! Show up: 11/19/2024 07:59:43 EST Subject: Results Follow Up Actions: Call the patient with result(s) Due Date/Time: 11/20/2024 07:59:00 EST Reminder Comments: cysts seen in both maxillary sinuses. suggest ent referral Results: Date Result Type Result Name 11/16/2024 9:[address] Sinus w/o Contrast Order placed [facility] Outside Recordson 11-08-2024 Outside Records [id number]#1.0 0OTGTIFF [facility] Outside Recordson 08-09-2024 Outside Records [id number]#1. 00OTGTIFF [facility] CBC AND AUTO DIFFon 07-27-20 24 ABSOLUTE BASOPHIL 0.1 X10E9/L Normal 0.0-0.2 [facility] Comment on above: Performed By: #### C JAVIER, [facility], 3040-3 #### [facility] ([id number]) [address] [place] [address], [place] [address] ABSOLUTE NEUTROPHIL 5.7 X10E9/L Normal 1.5-6.6 [facility] Comment on above: Performed By: #### C ANTONIETTA HERRERA, 3039-11 #### [facility] ([id number]) [address] [place] [address] 44916 Basophils/100 WBC (Bld) 0.6 % Normal [facility] Comment on above: Performed By: #### Yousif HERRERA CMP, 3039-11 #### [facility] ([id number]) [address] [place] [address] 76600 Eosinophils (Bld) [#/Vol] 0.2 10*3/uL Normal 0.0-0.4 [facility] Comment on above: Performed By: #### Yousif HERRERA CMP, 3039-11 #### [facility] ([id number]) [address] [place] [address] 37858 Eosinophils/100 WBC (Bld) 2.4 % Normal [facility] Comment on above: Performed By: #### Yousif HERRERA CMP, 3039-11 #### [facility] ([id number]) [address] [place] [address] 31303 Erythrocyte distribution width (RBC) [Ratio] 12.8 % Normal 11.5-15.0 [facility] Comment on above: Performed By: #### Yousif HERRERA CMP, 3039-11 #### [facility] ([id number]) [address] [place] [address] 95969 Hematocrit (Bld) [Volume fraction] 40.2 % Normal 39-49 [facility] Comment on above: Performed By: #### Yousif HERRERA CMP, 3039-11 #### [facility] ([id number]) [address] [place] [address] 09026 Hemoglobin (Bld) [Mass/Vol] 13.4 g/dL Normal 13.0-17.0 [facility] Comment on above: Performed By: #### Yousif HERRERA CMP, 3 #### [facility] ([id number]) [address] [place] [address] 82935 Lymphocytes (Bld) [#/Vol] 2.5 10*3/uL Normal 1.0-3.5 [facility] Comment on above: Performed By: #### Yousif HERRERA CMP, 3039-3 #### [facility] ([id number]) [address] [place] [address] 03116 Lymphocytes/100 WBC (Bld) 26.9 % Normal [facility] Comment on above: Performed By: #### Yousif HERRERA CMP, 3 #### [facility] ([id number]) [address] [place] [address] 87563 MCH (RBC) [Entitic mass] 28.9 pg Normal 27-34 [facility] Comment on above: Performed By: #### Yousif HERRERA CMP, 3 #### [facility] ([id number]) [address] [place] [address] 83780 MCHC (RBC) [Mass/Vol] 33.4 g/dL Normal 32-36 [facility] Comment on above: Performed By: #### Yousif HERRERA [facility], 3 #### [facility] ([id number]) [address] [place] [address] 35173 MCV (RBC) [Entitic vol] 87 fL Normal 80-100 [facility] Comment on above: Performed By: #### Yousif HERRERA CMP, 3 #### [facility] ([id number]) [address] [place] [address] 51818 Monocytes (Bld) [#/Vol] 0.9 10*3/uL Normal 0-0.9 [facility] Comment on above: Performed By: #### Yousif HERRERA CMP, 3039-3 #### [facility] ([id number]) [address] [place] [address] 82877 Monocytes/100 WBC (Bld) 9.2 % Normal [facility] Comment on above: Performed By: #### Yousif HERRERA CMP, 3040-3 #### [facility] ([id number]) [address] [place] [address] 53937 Neutrophils/100 WBC (Bld) 60.9 % Normal [facility] Comment on above: Performed By: #### Yousif HERRERA CMP, 3039-3 #### [facility] ([id number]) [address] [place] [address] 48050 Platelet mean volume (Bld) [Entitic vol] 8.7 fL Normal 7-12 [facility] Comment on above: Performed By: #### Yousif HERRERA CMP, 0-3 #### [facility] ([id number]) [address] [place] [address] 22209 Platelets (Bld) [#/Vol] 351 10*3/uL Normal 150-450 [facility] Comment on above: Performed By: #### Yousif HERRERA CMP, 3039-3 #### [facility] ([id number]) [address] [place] [address] 33617 RBC COUNT 4.64 X10E12/L Normal 4.10-5.70 [facility] Comment on above: Performed By: #### Yousif HERRERA CMP, 0-3 #### [facility] ([id number]) [address] [place] [address] 49671 WBC (Bld) [#/Vol] 9.3 10*3/uL Normal 4.0-11.0 [facility] Comment on above: Performed By: #### Yousif HERRERA CMP, 3039-3 #### [facility] ([id number]) [address] [place] [address] 68910 COMPREHENSIVE METABOLIC PANE Brian 07-27-2024 Albumin [Mass/Vol] 3.8 g/dL Normal 3.2-5.3 [facility] Comment on above: Performed By: #### C BCA, CMP, 3039-3 #### [facility] ([id number]) [address] [place] [address] 74178 ALP [Catalytic activity/Vol] 53 U/L Normal 39-130 [facility] Comment on above: Performed By: #### C BCA, CMP, 3039-3 #### [facility] ([id number]) [address] [place] [address] 68426 ALT [Catalytic activity/Vol] 16 U/L Normal 0-40 [facility] Comment on above: Performed By: #### C BCA, CMP, 3039-3 #### [facility] ([id number]) [address] [place] [address] 14968 Anion gap [Moles/Vol] 9 mmol/L Normal 5-15 [facility] Comment on above: Performed By: #### C BCA, CMP, 3039-3 #### [facility] ([id number]) [address] [place] [address] 61374 AST [Catalytic activity/Vol] 15 U/L Normal 0-41 [facility] Comment on above: Performed By: #### C BCA, CMP, 3039-3 #### [facility] ([id number]) [address] [place] [address] 64051 Bilirubin [Mass/Vol] 1.0 mg/dL Normal 0.3-1.2 [facility] Comment on above: Performed By: #### C BCA, CMP, 3039-3 #### [facility] ([id number]) [address] [place] [address] 51400 Calcium [Mass/Vol] 8.8 mg/dL Normal 8.5-10.5 City [facility] Comment on above: Performed By: #### C BCA, CMP, 3039-3 #### [facility] ([id number]) [address] [place] [address] 54133 Chloride [Moles/Vol] 106 mmol/L Normal 98-109 [facility] Comment on above: Performed By: #### C ANTONIETTA HERRERA, 3040-3 #### [facility] ([id number]) [address] [place] [address] 68486 CO2 [Moles/Vol] 25 mmol/L Normal 22-32 [facility] Comment on above: Performed By: #### C ANTONIETTA HERRERA, 3039-3 #### [facility] ([id number]) [address] [place] [address] 82286 Creatinine [Mass/Vol] 0.83 mg/dL Normal 0.70-1.20 [facility] Comment on above: Result Comment: METH OD TRACEABLE TO IDMS STANDARD Performed By: #### Yousif HERRERA CMP, 3 #### [facility] ([id number]) [address] [place] [address] 38995 eGFR (CKD-EPI) NON-RACE DEPENDENT >90 Normal >59 [facility] Comment on above: Result Comment: Reported eGFR is based on the CKD-EPI 1 equation that does not use a race coefficient. Performed By: #### Yousif HERRERA CMP, 3040-3 #### [facility] ([id number]) [address] [place] [address] 08156 Glucose [Mass/Vol] 103 mg/dL High 65-99 [facility] Comment on above: Performed By: #### Yousif HERRERA CMP, 3039-3 #### [facility] ([id number]) [address] [place] [address] 95956 Potassium [Moles/Vol] 4.3 mmol/L Normal 3.5-5.0 [facility] Comment on above: Performed By: #### Yousif HERRERA CMP, 3039-3 #### [facility] ([id number]) [address] [place] [address] 46650 Protein [Mass/Vol] 6.3 g/dL Normal 6.0-8.0 [facility] Comment on above: Performed By: #### C JAVIER, CMP, 0-3 #### [facility] ([id number]) [address] [place] [address] 44655 Sodium [Moles/Vol] 140 mmol/L Normal 134-146 [facility] Comment on above: Performed By: #### C BCA, CMP, 3039-3 #### [facility] ([id number]) [address] [place] [address] 70817 Urea nitrogen [Mass/Vol] 5 mg/dL Normal 5-23 [facility] Comment on above: Performed By: #### Yousif HERRERA, CMP, 3039-3 #### [facility] ([id number]) [address] [place] [address] 17665 MAGNESIUMon 07-27-2024 Magnesium [Mass/Vol] 2.1 mg/dL Normal 1.8-2.6 [facility] Comment on above: Performed By: #### C BCA, CMP, 3039-3 #### [facility] ([id number]) [address] [place] [address] 80800 CBC AND AUTO DIFFon 07-26-20 ABSOLUTE BASOPHIL 0.0 X10E9/L Normal 0.0-0.2 [facility] Comment on above: Performed By: #### C BCA, CMP, 0-3 #### [facility] ([id number]) [address] [place] [address] 35298 ABSOLUTE NEUTROPHIL 5.6 X10E9/L Normal 1.5-6.6 [facility] Comment on above: Performed By: #### C BCA, CMP, 0-3 #### [facility] ([id number]) [address] [place] [address] 14498 Basophils/100 WBC (Bld) 0.5 % Normal [facility] Comment on above: Performed By: #### Yousif HERRERA CMP, 3 #### [facility] ([id number]) [address] [place] [address] 70061 Eosinophils (Bld) [#/Vol] 0.3 10*3/uL Normal 0.0-0.4 [facility] Comment on above: Performed By: #### Yousif HERRERA CMP, 3039-11 #### [facility] ([id number]) [address] [place] [address] 67785 Eosinophils/100 WBC (Bld) 3.7 % Normal [facility] Comment on above: Performed By: #### Yousif HERRERA CMP, 3039-11 #### [facility] ([id number]) [address] [place] [address] 15880 Erythrocyte distribution width (RBC) [Ratio] 12.7 % Normal 11.5-15.0 [facility] Comment on above: Performed By: #### Yousif HERRERA CMP, 3039-11 #### [facility] ([id number]) [address] [place] [address] 83873 Hematocrit (Bld) [Volume fraction] 41.7 % Normal 39-49 [facility] Comment on above: Performed By: #### Yousif HERRERA CMP, 3039-11 #### [facility] ([id number]) [address] [place] [address] 01568 Hemoglobin (Bld) [Mass/Vol] 14.4 g/dL Normal 13.0-17.0 [facility] Comment on above: Performed By: #### Yousif HERRERA CMP, 3039-11 #### [facility] ([id number]) [address] [place] [address] 70575 Lymphocytes (Bld) [#/Vol] 2.2 10*3/uL Normal 1.0-3.5 [facility] Comment on above: Performed By: #### Yousif HERRERA CMP, 3039-3 #### [facility] ([id number]) [address] [place] [address] 76820 Lymphocytes/100 WBC (Bld) 25.4 % Normal [facility] Comment on above: Performed By: #### Yousif HERRERA CMP, 3 #### [facility] ([id number]) [address] [place] [address] 46285 MCH (RBC) [Entitic mass] 29.7 pg Normal 27-34 [facility] Comment on above: Performed By: #### Yousif HERRERA CMP, 3039-11 #### [facility] ([id number]) [address] [place] [address] 95276 MCHC (RBC) [Mass/Vol] 34.5 g/dL Normal 32-36 [facility] Comment on above: Performed By: #### Yousif HERRERA CMP, 3039-11 #### [facility] ([id number]) [address] [place] [address] 34137 MCV (RBC) [Entitic vol] 86 fL Normal 80-100 [facility] Comment on above: Performed By: #### Yousif HERRERA CMP, 3039-11 #### [facility] ([id number]) [address] [place] [address] 47323 Monocytes (Bld) [#/Vol] 0.7 10*3/uL Normal 0-0.9 [facility] Comment on above: Performed By: #### Yousif HERRERA CMP, 3 #### [facility] ([id number]) [address] [place] [address] 39039 Monocytes/100 WBC (Bld) 7.4 % Normal [facility] Comment on above: Performed By: #### Yousif HERRERA CMP, 3 #### [facility] ([id number]) [address] [place] [address] 65811 Neutrophils/100 WBC (Bld) 63.0 % Normal [facility] Comment on above: Performed By: #### Yousif HERRERA CMP, 3039-3 #### [facility] ([id number]) [address] [place] [address] 64267 Platelet mean volume (Bld) [Entitic vol] 8.6 fL Normal 7-12 [facility] Comment on above: Performed By: #### Yousif HERRERA, CMP, 3039-3 #### [facility] ([id number]) [address] [place] [address] 76700 Platelets (Bld) [#/Vol] 345 10*3/uL Normal 150-450 [facility] Comment on above: Performed By: #### Yousif HERRERA, CMP, 3039-3 #### [facility] ([id number]) [address] [place] [address] 38915 RBC COUNT 4.84 X10E12/L Normal 4.10-5.70 [facility] Comment on above: Performed By: #### Yousif HERRERA, CMP, 3 #### [facility] ([id number]) [address] [place] [address] 59123 WBC (Bld) [#/Vol] 8.8 10*3/uL Normal 4.0-11.0 [facility] Comment on above: Performed By: #### Yousif BCA, CMP, 3039-3 #### [facility] ([id number]) [address] [place] [address] 62740 COMPREHENSIVE METABOLIC PANE Brian 07-26-2024 Albumin [Mass/Vol] 3.9 g/dL Normal 3.2-5.3 [facility] Comment on above: Performed By: #### Yousif HERRERA, CMP, 3039-3 #### [facility] ([id number]) [address] [place] [address] 16750 ALP [Catalytic activity/Vol] 57 U/L Normal 39-130 [facility] Comment on above: Performed By: #### C ANTONIETTA HERRERA, 3039-3 #### [facility] ([id number]) [address] [place] [address] 62322 ALT [Catalytic activity/Vol] 21 U/L Normal 0-40 [facility] Comment on above: Performed By: #### C JAVIER, CMP, 3 #### [facility] ([id number]) [address] [place] [address] 40245 Anion gap [Moles/Vol] 9 mmol/L Normal 5-15 [facility] Comment on above: Performed By: #### Yousif HERRERA CMP, 3 #### [facility] ([id number]) [address] [place] [address] 79441 AST [Catalytic activity/Vol] 18 U/L Normal 0-41 [facility] Comment on above: Performed By: #### Yousif HERRERA CMP, 3 #### [facility] ([id number]) [address] [place] [address] 04035 Bilirubin [Mass/Vol] 0.9 mg/dL Normal 0.3-1.2 [facility] Comment on above: Performed By: #### Yousif HERRERA CMP, 3 #### [facility] ([id number]) [address] [place] [address] 27785 Calcium [Mass/Vol] 8.8 mg/dL Normal 8.5-10.5 [facility] Comment on above: Performed By: #### C JAVIER, CMP, 3039-3 #### [facility] ([id number]) [address] [place] [address] 80650 Chloride [Moles/Vol] 106 mmol/L Normal 98-109 [facility] Comment on above: Performed By: #### C ANTONIETTA HERRERA, 3039-3 #### [facility] ([id number]) [address] [place] [address] 47387 CO2 [Moles/Vol] 23 mmol/L Normal 22-32 [facility] Comment on above: Performed By: #### C ANTONIETTA HERRERA, 3039-3 #### [facility] ([id number]) [address] [place] [address] 90500 Creatinine [Mass/Vol] 0.80 mg/dL Normal 0.70-1.20 [facility] Comment on above: Result Comment: METH OD TRACEABLE TO IDMS STANDARD Performed By: #### C ANTONIETTA HERRERA, 3039-11 #### [facility] ([id number]) [address] [place] [address] 71384 eGFR (CKD-EPI) NON-RACE DEPENDENT >90 Normal >59 [facility] Comment on above: Result Comment: Reported eGFR is based on the CKD-EPI 2020 equation that does not use a race coefficient. Performed By: #### C ANTONIETTA HERRERA, 3 #### [facility] ([id number]) [address] [place] [address] 40999 Glucose [Mass/Vol] 83 mg/dL Normal 65-99 [facility] Comment on above: Performed By: #### C ANTONIETTA HERRERA, 3 #### [facility] ([id number]) [address] [place] [address] 76372 Potassium [Moles/Vol] 3.4 mmol/L Low 3.5-5.0 [facility] Comment on above: Performed By: #### C ANTONIETTA HERRERA, 3 #### [facility] ([id number]) [address] [place] [address] 26539 Protein [Mass/Vol] 6.6 g/dL Normal 6.0-8.0 [facility] Comment on above: Performed By: #### C ANTONIETTA HERRERA, 0-3 #### [facility] ([id number]) [address] [place] [address] 77033 Sodium [Moles/Vol] 138 mmol/L Normal 134-146 [facility] Comment on above: Performed By: #### Yousif HERRERA CMP, 3039-3 #### [facility] ([id number]) [address] [place] [address] 01453 Urea nitrogen [Mass/Vol] 8 mg/dL Normal 5-23 [facility] Comment on above: Performed By: #### Yousif HERRERA CMP, 3039-3 #### [facility] ([id number]) [address] [place] [address] 76599 MAGNESIUMon 07-26-2024 Magnesium [Mass/Vol] 2.0 mg/dL Normal 1.8-2.6 [facility] Comment on above: Performed By: #### Yousif HERRERA CMP, 3039-3 #### [facility] ([id number]) [address] [place] [address] 02052 POTASSIUMon 07-26-2024 Potassium [Moles/Vol] 3.3 mmol/L Low 3.5-5.0 [facility] Comment on above: Performed By: #### Yousif HERRERA CMP, 3039-3 #### [facility] ([id number]) [address] [place] [address] 19661 Potassium [Moles/Vol] 3.1 mmol/L Low 3.5-5.0 [facility] Comment on above: Performed By: #### Yousif HERRERA CMP, 3039-3 #### [facility] ([id number]) [address] [place] [address] 78421 XR ABDOMEN AP 1 VWon 024 XR [...] Valenzuela MD on 07/26/2024 8:55 AM Normal [facility] CBC AND AUTO DIFFon 07-25-20 ABSOLUTE BASOPHIL 0.1 X10E9/L Normal 0.0-0.2 [facility] Comment on above: Performed By: #### C JAVIER [facility], 94081-2 #### [facility] ([id number]) [address] [place] [address] 85873 ABSOLUTE NEUTROPHIL 4.3 X10E9/L Normal 1.5-6.6 [facility] Comment on above: Performed By: #### Yousif HERRERA [facility], 62908-4 #### [facility] ([id number]) [address] [place] [address] 79368 Basophils/100 WBC (Bld) 0.7 % Normal [facility] Comment on above: Performed By: #### Yousif HERRERA [facility], 05917-7 #### [facility] ([id number]) [address] [place] [address] 91580 Eosinophils (Bld) [#/Vol] 0.4 10*3/uL Normal 0.0-0.4 [facility] Comment on above: Performed By: #### Yousif HERRERA [facility], 31278-3 #### [facility] ([id number]) [address] [place] [address] 01212 Eosinophils/100 WBC (Bld) 4.5 % Normal [facility] Comment on above: Performed By: #### Yousif HERRERA [facility], 43113-1 #### [facility] ([id number]) [address] [place] [address] 48811 Erythrocyte distribution width (RBC) [Ratio] 12.9 % Normal 11.5-15.0 [facility] Comment on above: Performed By: #### C ANTONIETTA HERRERA, #### [facility] ([id number]) [address] [place] [address] 03688 Hematocrit (Bld) [Volume fraction] 40.5 % Normal 39-49 [facility] Comment on above: Performed By: #### Yousif HERRERA CMP, #### [facility] ([id number]) [address] [place] [address] 27062 Hemoglobin (Bld) [Mass/Vol] 13.8 g/dL Normal 13.0-17.0 [facility] Comment on above: Performed By: #### Yousif HERRERA CMP, #### [facility] ([id number]) [address] [place] [address] 76856 Lymphocytes (Bld) [#/Vol] 2.7 10*3/uL Normal 1.0-3.5 [facility] Comment on above: Performed By: #### Yousif HERRERA CMP, #### [facility] ([id number]) [address] [place] [address] 34563 Lymphocytes/100 WBC (Bld) 32.2 % Normal [facility] Comment on above: Performed By: #### Yousif HERRERA CMP, #### [facility] ([id number]) [address] [place] [address] 91311 MCH (RBC) [Entitic mass] 29.5 pg Normal 27-34 [facility] Comment on above: Performed By: #### Yousif HERRERA CMP, #### [facility] ([id number]) [address] [place] [address] 14058 MCHC (RBC) [Mass/Vol] 34.0 g/dL Normal 32-36 [facility] Comment on above: Performed By: #### Yousif HERRERA CMP, #### [facility] ([id number]) [address] [place] [address] 65574 MCV (RBC) [Entitic vol] 87 fL Normal 80-100 [facility] Comment on above: Performed By: #### Yousif HERRERA CMP, 67668-6 #### [facility] ([id number]) [address] [place] [address] 06604 Monocytes (Bld) [#/Vol] 1.0 10*3/uL High 0-0.9 [facility] Comment on above: Performed By: #### Yousif HERRERA CMP, #### [facility] ([id number]) [address] [place] [address] 12301 Monocytes/100 WBC (Bld) 11.8 % Normal [facility] Comment on above: Performed By: #### Yousif HERRERA CMP, #### [facility] ([id number]) [address] [place] [address] 43554 Neutrophils/100 WBC (Bld) 50.8 % Normal [facility] Comment on above: Performed By: #### Yousif HERRERA [facility], #### [facility] ([id number]) [address] [place] [address] 90932 Platelet mean volume (Bld) [Entitic vol] 8.6 fL Normal 7-12 [facility] Comment on above: Performed By: #### Yousif HERRERA CMP, #### [facility] ([id number]) [address] [place] [address] 01098 Platelets (Bld) [#/Vol] 355 10*3/uL Normal 150-450 [facility] Comment on above: Performed By: #### Yousif HERRERA CMP, #### [facility] ([id number]) [address] [place] [address] 32083 RBC COUNT 4.67 X10E12/L Normal 4.10-5.70 [facility] Comment on above: Performed By: #### C JAVIER CMP, 67524-5 #### [facility] ([id number]) [address] [place] [address] 70006 WBC (Bld) [#/Vol] 8.4 10*3/uL Normal 4.0-11.0 [facility] Comment on above: Performed By: #### C JAVIER, CMP, 76630-0 #### [facility] ([id number]) [address] [place] [address] 88636 COMPREHENSIVE METABOLIC PANE Brian 07-25-2024 Albumin [Mass/Vol] 3.7 g/dL Normal 3.2-5.3 [facility] Comment on above: Performed By: #### C JAVIER, CMP, 59967-8 #### [facility] ([id number]) [address] [place] [address] 24517 ALP [Catalytic activity/Vol] 56 U/L Normal 39-130 [facility] Comment on above: Performed By: #### C JAVIER, CMP, 26342-4 #### [facility] ([id number]) [address] [place] [address] 92738 ALT [Catalytic activity/Vol] 21 U/L Normal 0-40 [facility] Comment on above: Performed By: #### C JAVIER CMP, 35297-0 #### [facility] ([id number]) [address] [place] [address] 42196 Anion gap [Moles/Vol] 5 mmol/L Normal 5-15 [facility] Comment on above: Performed By: #### C BCA, CMP, 73578-4 #### [facility] ([id number]) [address] [place] [address] 56338 AST [Catalytic activity/Vol] 16 U/L Normal 0-41 [facility] Comment on above: Performed By: #### C JAVIER [facility], 13429-7 #### [facility] ([id number]) [address] [place] [address] 97599 Bilirubin [Mass/Vol] 0.8 mg/dL Normal 0.3-1.2 [facility] Comment on above: Performed By: #### C JAVIER [facility], #### [facility] ([id number]) [address] [place] [address] 88235 Calcium [Mass/Vol] 8.4 mg/dL Low 8.5-10.5 [facility] Comment on above: Performed By: #### C JAVIER [facility], #### [facility] ([id number]) [address] [place] [address] 94283 Chloride [Moles/Vol] 110 mmol/L High 98-109 [facility] Comment on above: Performed By: #### C JAVIER [facility], 99285-9 #### [facility] ([id number]) [address] [place] [address] 77151 CO2 [Moles/Vol] 23 mmol/L Normal 22-32 [facility] Comment on above: Performed By: #### Yousif HERRERA [facility], 61510-0 #### [facility] ([id number]) [address] [place] [address] 47441 Creatinine [Mass/Vol] 0.94 mg/dL Normal 0.70-1.20 [facility] Comment on above: Result Comment: METH OD TRACEABLE TO IDMS STANDARD Performed By: #### C JAVIER [facility], 62918-9 #### [facility] ([id number]) [address] [place] [address] 95836 eGFR (CKD-EPI) NON-RACE DEPENDENT >90 Normal >59 [facility] Comment on above: Result Comment: Reported eGFR is based on the CKD-EPI 2020 equation that does not use a race coefficient. Performed By: #### C BCA, CMP, 10304-8 #### [facility] ([id number]) [address] [place] [address] 69620 Glucose [Mass/Vol] 102 mg/dL High 65-99 [facility] Comment on above: Performed By: #### C BCA, [facility], 90555-9 #### [facility] ([id number]) [address] [place] [address] 38226 Potassium [Moles/Vol] 3.6 mmol/L Normal 3.5-5.0 [facility] Comment on above: Performed By: #### C BCA, [facility], 92471-2 #### [facility] ([id number]) [address] [place] [address] 65771 Protein [Mass/Vol] 6.3 g/dL Normal 6.0-8.0 [facility] Comment on above: Performed By: #### C BCA, [facility], 71055-9 #### [facility] ([id number]) [address] [place] [address] 76455 Sodium [Moles/Vol] 138 mmol/L Normal 134-146 [facility] Comment on above: Performed By: #### C BCA, [facility], 32368-0 #### [facility] ([id number]) [address] [place] [address] 56763 Urea nitrogen [Mass/Vol] 12 mg/dL Normal 5-23 [facility] Comment on above: Performed By: #### C BCA, [facility], 19670-6 #### [facility] ([id number]) [address] [place] [address] ABDOMEN AND PELVIS W CONT on [...] Findings Committee. J Am Ag Radiol. 2017 Apr;14(8):7505-[address] scans at this facility use dose modulation, iterative reconstruction, and/or weight based dosing when appropriate to reduce radiation dose to as low as reasonably achievable. Finalized by Bam Camejo MD on 07/25/2024 10:48 AM Normal [facility] Glucose Glucometer (BldC) [M ass/Vol]on 07-25-2024 Glucose [Mass/Vol] 76 mg/dL Normal 65-99 [facility] MAGNESIUMon 07-25-2024 Magnesium [Mass/Vol] 1.9 mg/dL Normal 1.8-2.6 [facility] Comment on above: Performed By: #### C ANTONIETTA HERRERA, 41249-4 #### [facility] ([id number]) [address] [place] [address], [place] [address] XR CHEST 1 VWon 07-25-2024 XR CHEST [...] extends below the diaphragm and off the [id number]-[id number]. IMPRESSION: 1. No acute cardiopulmonary disease. 2. Moderate-sized hiatal hernia. There is a gastric tube with the tip extending below the diaphragm and off the [id number]. Finalized by Francisco Bangura MD on 07/25/2024 5:24 PM Normal [facility] XR CHEST 1 VW XR CHEST [...] Carlisle MD on 07/25/2024 3:36 PM Normal [facility] CBC AND AUTO DIFFon 07-24-20 ABSOLUTE BASOPHIL 0.1 X10E9/L Normal 0.0-0.2 [facility] Comment on above: Performed By: #### C ANTONIETTA HERRERA, 3039-3 #### [facility] ([id number]) [address] [place] [address] 18404 ABSOLUTE NEUTROPHIL 7.3 X10E9/L High 1.5-6.6 [facility] Comment on above: Performed By: #### C JAVIER, CMP, 3039-3 #### [facility] ([id number]) [address] [place] [address] 85688 Basophils/100 WBC (Bld) 1.0 % Normal [facility] Comment on above: Performed By: #### Yousif HERRERA CMP, 3 #### [facility] ([id number]) [address] [place] [address] 99326 Eosinophils (Bld) [#/Vol] 0.3 10*3/uL Normal 0.0-0.4 [facility] Comment on above: Performed By: #### Yousif HERRERA [facility], 3 #### [facility] ([id number]) [address] [place] [address] 45648 Eosinophils/100 WBC (Bld) 2.5 % Normal [facility] Comment on above: Performed By: #### Yousif HERRERA CMP, 3 #### [facility] ([id number]) [address] [place] [address] 62236 Erythrocyte distribution width (RBC) [Ratio] 13.0 % Normal 11.5-15.0 [facility] Comment on above: Performed By: #### Yousif HERRERA, CMP, 3039-11 #### [facility] ([id number]) [address] [place] [address] 90180 Hematocrit (Bld) [Volume fraction] 47.6 % Normal 39-49 [facility] Comment on above: Performed By: #### Yousif HERRERA, CMP, 3039-3 #### [facility] ([id number]) [address] [place] [address] [place] [address] Hemoglobin (Bld) [Mass/Vol] 16.2 g/dL Normal 13.0-17.0 [facility] Comment on above: Performed By: #### Yousif HERRERA CMP, 3039-3 #### [facility] ([id number]) [address] [place] [address]34 Lymphocytes (Bld) [#/Vol] 2.1 10*3/uL Normal 1.0-3.5 [facility] Comment on above: Performed By: #### Yousif HERRERA [facility], 3039-11 #### [facility] ([id number]) [address] [place] [address] 31247 Lymphocytes/100 WBC (Bld) 19.2 % Normal [facility] Comment on above: Performed By: #### Yousif HERRERA CMP, 3039-11 #### [facility] ([id number]) [address] [place] [address]1624 MCH (RBC) [Entitic mass] 29.4 pg Normal 27-34 [facility] Comment on above: Performed By: #### Yousif HERRERA [facility], 3039-11 #### [facility] ([id number]) [address] [place] [address] 43642 MCHC (RBC) [Mass/Vol] 34.0 g/dL Normal 32-36 [facility] Comment on above: Performed By: #### Yousif HERRERA CMP, 3039-11 #### [facility] ([id number]) [address] [place] [address]001 MCV (RBC) [Entitic vol] 86 fL Normal 80-100 [facility] Comment on above: Performed By: #### oYusif HERRERA CMP, 3039-11 #### [facility] ([id number]) [address] [place] [address] 25753 Monocytes (Bld) [#/Vol] 1.3 10*3/uL High 0-0.9 [facility] Comment on above: Performed By: #### Yousif HERRERA CMP, 3039-3 #### [facility] ([id number]) [address] [place] [address] 29338 Monocytes/100 WBC (Bld) 11.6 % Normal [facility] Comment on above: Performed By: #### Yousif HERRERA CMP, 3039-3 #### [facility] ([id number]) [address] [place] [address] 56748 Neutrophils/100 WBC (Bld) 65.7 % Normal [facility] Comment on above: Performed By: #### Yousif HERRERA CMP, 3 #### [facility] ([id number]) [address] [place] [address] 29406 Platelet mean volume (Bld) [Entitic vol] 8.4 fL Normal 7-12 [facility] Comment on above: Performed By: #### Yousif HERRERA CMP, 3039-3 #### [facility] ([id number]) [address] [place] [address] 04520 Platelets (Bld) [#/Vol] 470 10*3/uL High 150-450 [facility] Comment on above: Performed By: #### Yousif HERRERA CMP, 3 #### [facility] ([id number]) [address] [place] [address] 34956 RBC COUNT 5.52 X10E12/L Normal 4.10-5.70 [facility] Comment on above: Performed By: #### Yousif HERRERA CMP, 3039-3 #### [facility] ([id number]) [address] [place] [address] 94919 WBC (Bld) [#/Vol] 11.1 10*3/uL High 4.0-11.0 [facility] Comment on above: Performed By: #### Yousif HERRERA CMP, 3039-3 #### [facility] ([id number]) [address] [place] [address] COMPREHENSIVE METABOLIC PANE Brian 07-24-2024 Albumin [Mass/Vol] 4.3 g/dL Normal 3[facility]2-5.3 [facility] Comment on above: Performed By: #### C BCA, CMP, 0-3 #### [facility] ([id number]) [address] [place] [address] 98400 ALP [Catalytic activity/Vol] 63 U/L Normal 39-130 [facility] Comment on above: Performed By: #### C BCA, CMP, 3039-3 #### [facility] ([id number]) [address] [place] [address] 60370 ALT [Catalytic activity/Vol] 25 U/L Normal 0-40 [facility] Comment on above: Performed By: #### C BCA, CMP, 3039-3 #### [facility] ([id number]) [address] [place] [address] 53068 Anion gap [Moles/Vol] 9 mmol/L Normal 5-15 [facility] Comment on above: Performed By: #### C BCA, CMP, 0-3 #### [facility] ([id number]) [address] [place] [address] 82273 AST [Catalytic activity/Vol] 23 U/L Normal 0-41 [facility] Comment on above: Performed By: #### C BCA, CMP, 0-3 #### [facility] ([id number]) [address] [place] [address] 95725 Bilirubin [Mass/Vol] 1.4 mg/dL High 0.3-1.2 [facility] Comment on above: Performed By: #### C BCA, CMP, 0-3 #### [facility] ([id number]) [address] [place] [address] 70833 Calcium [Mass/Vol] 10.1 mg/dL Normal 8.5-10.5 [facility] Comment on above: Performed By: #### C ANTONIETTA HERRERA, 3039-3 #### [facility] ([id number]) [address] [place] [address] 62524 Chloride [Moles/Vol] 104 mmol/L Normal 98-109 [facility] Comment on above: Performed By: #### C ANTONIETTA HERRERA, 3 #### [facility] ([id number]) [address] [place] [address] 37501 CO2 [Moles/Vol] 22 mmol/L Normal 22-32 [facility] Comment on above: Performed By: #### Yousif HERRERA CMP, 3 #### [facility] ([id number]) [address] [place] [address] 87645 Creatinine [Mass/Vol] 1.05 mg/dL Normal 0.70-1.20 [facility] Comment on above: Result Comment: METH OD TRACEABLE TO IDMS STANDARD Performed By: #### C ANTONIETTA HERRERA, 3039-3 #### [facility] ([id number]) [address] [place] [address] 00232 GFR/1.73 sq M.predicted among non-blacks MDRD (S/P/Bld) [Vol rate/Area] 87 mL/min/{1.73_m2} Normal >59 [facility] Comment on above: Result Comment: Reported eGFR is based on the CKD-EPI 2020 equation that does not use a race coefficient. Performed By: #### C ANTONIETTA HERRERA, 0-3 #### [facility] ([id number]) [address] [place] [address] 06226 Glucose [Mass/Vol] 113 mg/dL High 65-99 [facility] Comment on above: Performed By: #### Yousif HERRERA CMP, 3039-3 #### [facility] ([id number]) [address] [place] [address] 03063 Potassium [Moles/Vol] 3.7 mmol/L Normal 3.5-5.0 [facility] Comment on above: Performed By: #### C BCA, CMP, 3040-3 #### [facility] ([id number]) [address] [place] [address] 92468 Protein [Mass/Vol] 7.9 g/dL Normal 6.0-8.0 [facility] Comment on above: Performed By: #### C BCA CMP, 3040-3 #### [facility] ([id number]) [address] [place] [address] 56150 Sodium [Moles/Vol] 135 mmol/L Normal 134-146 [facility] Comment on above: Performed By: #### C BCA, CMP, 3040-3 #### [facility] ([id number]) [address] [place] [address] 41035 Urea nitrogen [Mass/Vol] 13 mg/dL Normal 5-23 [facility] Comment on above: Performed By: #### Yousif BCA, [facility], 3040-3 #### [facility] ([id number]) [address] [place] [address] ABDOMEN AND PELVIS W CONT on [...] exclude pheochromocytoma. Recommend no further imaging evaluation. [facility] CenterOscar NUNN, et al. Management of Incidental Adrenal Masses: A White Paper of the ACR Incidental Findings Committee. J Am Ag Radiol. 2017 Apr;14(8):2139-1507. THIS REPORT CONTAINS A SIGNIFICANT RESULT AND/OR RECOMMENDATION, WHICH REQUIRES THE ATTENTION OF THE LICENSED CAREGIVER RESPONSIBLE FOR THIS PATIENT. THEREFORE, I SPECIFICALLY DESIGNATED THIS REPORT TO BE TELEPHONED BY THE RADIOLOGY DEPARTMENT. FINDINGS WERE INSTRUCTED TO BE CALLED TO THE CLINICAL SERVICE ON 07/24/2024 4:17 PM Finalized by Daniel Mcallister on 07/24/2024 4:17 PM Normal [facility] LIPASEon 07-24-2024 Lipase [Catalytic activity/Vol] 22 U/L Normal 17-40 [facility] Comment on above: Performed By: #### C ANTONIETTA HERRERA, 3040-3 #### [facility] ([id number]) [address] [place] [address], FIRST FLOOR [address] 9-10 Nerveson 07-17-2024 [facility] 07-12-2024 Outside Records [id number]#1 .[facility]-03-2024 Patient Letter [id number]#1.0 [facility]- [facility] 05-03-2024 Outside Records [id number]#1.0 [facility] 04-24-2024 Outside Records [id number]#1.0 [facility] - Other Radiology Report on 04-24-2024 Rad - Other Radiology Report [id number]#1.0 [facility] 04-11-2024 Patient Letter [id number]#1.0 [facility] 04-05-2024 Outside Records [id number]#1.00 [facility] Outside Records [id number]#1.00 [facility] - Other Radiology Report on 04-02-2024 Rad - Other Radiology Report [id number]#1.0 0OTGTIFF Normal [facility] LUMBAR SPINE 6 OR MORE VWSon 01-14-2022 LUMBAR SPINE 6 OR MORE VWS [facility] Department of Radiology [address] [place] [id number] ======== Patient Name: RICCARDO HALE : 1975 Sex: M Age: Race: White Pt. Location: Patient Status: D Ordered Date: 01/14/2022 12:15:00 PM Completed Date: 01/14/2022 12:37 PM Requesting Provider: JACKELINE RANDLE Attending Provider: JACKELINE RANDLE Report Copy To: MILAN NAILS Signs & Symptoms: M47.896 Other spondylosis, lumbar region I10 History: Lucinda Comments: , ap, lat, flex, ex, obliques, r/o instability or pars defect , Views (X-RAY, LUMBAR SPINE): AP, Lateral, L5-S1 Spot, Obliques, Flexion, Extension , ap, lat, flex, ex, obliques, r/o instability or pars defect , Views (X-RAY, LUMBAR SPINE): AP, Lateral, L5-S1 Spot, Obliques, Flexion, Extension , , , Ordering Provider - A JER MSN HAND TOUCH UP PAINTER , Exam: LUMBAR SPINE 6 OR MORE [...] radiographically. Electronically signed: Irma York. Transcribed by: [email or web address], User Resident: Electronically Signed by: IRMA YORK [...] 175.26 cm Temi Marshall APRN Work Phone: [facility] 05-13-2025 08:55-0400 Body mass index (BMI) [Ratio] 47.8 kg/m2 Temi Marshall APRN Work Phone: [facility] 05-13-2025 08:55-0400 Body temperature 97.5 [degF] Temi Dangelorbacher FORENSIC MANAGER Work Phone: [facility] 05-13-2025 08:55-0400 Body weight 146.96 kg Temi Dangeloaddis FORENSIC MANAGER Work Phone: [facility] 05-13-2025 08:55-0400 Diastolic blood pressure 78 mm[Hg] Temi Rolando FORENSIC MANAGER Work Phone: [facility] 05-13-2025 08:55-0400 Heart rate 69 /min Temi Rolando FORENSIC MANAGER Work Phone: [facility] 05-13-2025 08:55-0400 SaO2% (BldA) [Mass fraction] 95 % Temi Rolando FORENSIC MANAGER Work Phone: [facility] 05-13-2025 08:55-0400 Systolic blood pressure 130 mm[Hg] Temi Rolando FORENSIC MANAGER Work Phone: [facility] 04-17-2025 09:31-0400 Body height 175.26 cm Temi Dangeloaddis FORENSIC MANAGER Work Phone: [facility] 04-17-2025 09:31-0400 Body mass index (BMI) [Ratio] 49.4 kg/m2 Temi Dangeloaddis FORENSIC MANAGER Work Phone: [facility] 04-17-2025 09:31-0400 Body temperature 98 [degF] Temi Rolando FORENSIC MANAGER Work Phone: [facility] 04-17-2025 09:31-0400 Body weight 151.95 kg Temi Dangeloaddis GRACIAN Work Phone: [facility] 04-17-2025 09:31-0400 Diastolic blood pressure 84 mm[Hg] Temi Rolando FORENSIC MANAGER Work Phone: [facility] 04-17-2025 09:31-0400 Heart rate 86 /min Temi Rolando CHAUDHRY Work Phone: [facility] 04-17-2025 09:31-0400 SaO2% (BldA) [Mass fraction] 94 % Temi Rolando FORENSIC MANAGER Work Phone: [facility] 04-17-2025 09:31-0400 Systolic blood pressure 132 mm[Hg] Temi Rolando FORENSIC MANAGER Work Phone: [facility] 03-27-2025 08:41-0400 Body height 175.3 cm Beto Reyes MD Work Phone: [facility] 03-27-2025 08:41-0400 Body mass index (BMI) [Ratio] 47.99 kg/m2 Beto Reyes MD Work Phone: [facility] 03-27-2025 08:41-0400 Body weight 147.42 kg Beto Reyes MD Work Phone: [facility] 03-27-2025 08:41-0400 Diastolic blood pressure 78 mm[Hg] Beto Reyes MD Work Phone: [facility] 03-27-2025 08:41-0400 Heart rate 104 /min Beto Reyes MD Work Phone: [facility] 03-27-2025 08:41-0400 Systolic blood pressure 138 mm[Hg] Beto Reyes MD Work Phone: [facility] 02-20-2025 10:21-0400 Body height 175.3 cm Beto Reyes MD Work Phone: [facility] 02-20-2025 10:21-0400 Body mass index (BMI) [Ratio] 48.29 kg/m2 Beto Reyes MD Work Phone: [facility] 02-20-2025 10:21-0400 Body weight 148.33 kg Beto Reyes MD Work Phone: [facility] 02-20-2025 10:21-0400 Diastolic blood pressure 86 mm[Hg] Beto Reyes MD Work Phone: [facility] 02-20-2025 10:21-0400 Heart rate 74 /min Beto Reyes MD Work Phone: [facility] 02-20-2025 10:21-0400 Systolic blood pressure 126 mm[Hg] Beto Reyes MD Work Phone: [facility] 07-19-2024 10:32-0400 Body height 175.3 cm Pascale Lowe PA Work Phone: [facility] 07-19-2024 10:32-0400 Body mass index (BMI) [Ratio] 45.63 kg/m2 Pascale Lowe PA Work Phone: [facility] 07-19-2024 10:32-0400 Body weight 140.16 kg Pascale Lowe PA Work Phone: [facility] 07-19-2024 10:32-0400 Diastolic blood pressure 86 mm[Hg] Pascale Lowe PA Work Phone: [facility] 07-19-2024 10:32-0400 Systolic blood pressure 130 mm[Hg] Pascale Lowe PA Work Phone: [facility] 09-23-2023 10:05-0500 Body height Abbey Robin Other [email or web address] Other 09-23-2023 10:05-0500 Body mass index (BMI) [Ratio] 44.21 kg/m2 Abbey Robin Other [email or web address] Other 09-23-2023 10:05-0500 Body temperature 98.6 [degF] Abbey Robin Other [email or web address] Other 09-23-2023 10:05-0500 Body weight 135.81 kg Abbey Robin Other [email or web address] Other 09-23-2023 10:05-0500 Diastolic blood pressure 82 mm[Hg] Abbey Robin Other [email or web address] Other 09-23-2023 10:05-0500 Respiratory rate 18 /min Abbey Robin Other [email or web address] Other 09-23-2023 10:05-0500 SaO2% (BldA) [Mass fraction] 95 % Abbey Robin Other [email or web address] Other 09-23-2023 10:05-0500 Systolic blood pressure 152 mm[Hg] Abbey Robin Other [email or web address] Other 04-15-2023 10:30-0400 Body height Marisol Zelaya Other [email or web address] Other 04-15-2023 10:30-0400 Body mass index (BMI) [Ratio] 45.33 kg/m2 Marisol Zelaya Other [email or web address] Other 04-15-2023 10:30-0400 Body temperature 97.6 [degF] Marisol Zelaya Other [email or web address] Other 04-15-2023 10:30-0400 Body weight 139.26 kg Marisol Zelaya Other [email or web address] Other 04-15-2023 10:30-0400 Diastolic blood pressure 80 mm[Hg] Marisol Zelaya Other [email or web address] Other 04-15-2023 10:30-0400 Respiratory rate 18 /min Marisol Zelaya Other [email or web address] Other 04-15-2023 10:30-0400 SaO2% (BldA) [Mass fraction] 98 % Marisol Zelaya Other [facility] Other 04-15-2023 10:30-0400 Systolic blood pressure 125 mm[Hg] Marisol Zelaya Other [facility] Other Encounters Encounter Date Encounter Type Care Provider Facility Start: 05-13-2025 End: 05-13-2025 ambulatory Temi Marshall APRN Work Phone: [facility] Work Phone: Start: 05-13-2025 End: 05-13-2025 Patient encounter procedure Temi Marshall APRN [facility] Work Phone: Start: 05-07-2025 End: 05-08-2025 Refill Beto Reyes MD Work Phone: [facility] [place] [facility] Comment on above: Rhinitis medicamento sa Start: 04-22-2025 End: 04-22-2025 ambulatory Renetta Terrazas MD Facility:[facility] Start: 04-17-2025 End: 04-17-2025 ambulatory Temi Marshall APRN Work Phone: [facility] Work Phone: Start: 04-17-2025 End: 04-17-2025 Patient encounter procedure Temi Marshall APRN [facility] Work Phone: Start: 04-10-2025 Non-patient / Non-visit Belinda Henson [facility] Work Phone: Start: 03-27-2025 End: 03-27-2025 [...] Start: 02-21-2025 ambulatory MILAN P HOUSE Facilit y:[facility] Start: 02-20-2025 End: 02-20-2025 Bamboo flowsheet Beto [...] Office outpatient new 30 minutes Blair Gan [employer] Work Phone: [facility] Comment on above: Carpal tunnel syndro me of left wrist; Carpal tunnel syndrome of right wrist Start: 02-06-2025 End: 02-06-2025 ambulatory BLAIR GAN Not Available Start: 02-06-2025 End: 02-06-2025 Bamboo flowsheet Blair Gan [employer] Work Phone: [facility] Start: 02-06-2025 End: 02-06-2025 Bamboo flowsheet Blair Gan [employer] Work Phone: [facility] Start: 02-04-2025 ambulatory DO MILAN P HOUSE Faci lity:[facility] Start: 01-03-2025 End: 01-03-2025 Refill [...] 11-15-2024 End: 11-15-2024 ambulatory DO MILAN NAILS Facility:[facility] Start: 11-01-2024 End: 11-01-2024 Refill Maurizio Patrick MD Work Phone: [facility] Comment on above: Low back pain, unspe cified back pain laterality, unspecified chronicity, unspecified whether sciatica present Start: 10-02-2024 ambulatory DO MILAN NAILS Faci lity:[facility] Start: 08-09-2024 End: 08-09-2024 ambulatory MILAN NAILS Facility:[facility]by Start: 07-24-2024 End: 07-27-2024 Evaluation and management of inpatient MILAN Medina [facility] Start: 07-19-2024 End: 07-19-2024 Office [...] flowsheet Maurizio Patrick MD Work Phone: [facility] Start: 07-17-2024 End: 07-17-2024 Bamboo flowsheet Maurizio Patrick MD Work Phone: [facility] Start: 07-17-2024 End: 07-17-2024 ambulatory MAURIZIO PATRICK Not Available Start: 07-17-2024 End: 07-17-2024 Patient encounter procedure Maurizio Patrick MD Work Phone: [facility] Comment on above: Lumbar radiculopathy (Primary Dx); Low back pain, unspecified back pain laterality, unspecified chronicity, unspecified whether sciatica present Start: 07-02-2024 End: 07-02-2024 ambulatory MILAN P KELSO Facility:[facility] Start: 06-28-2024 ambulatory MILAN P KELSO Facilit y:[facility] Start: 05-24-2024 End: 05-24-2024 Bamboo flowsheet Maurizio Patrick MD Work Phone: [facility] Start: 05-24-2024 End: 05-24-2024 Bamboo flowsheet Maurizio Patrick MD Work Phone: [facility] Start: 05-24-2024 End: 05-24-2024 Patient encounter procedure Maurizio Patrick MD Work Phone: [facility] Comment on above: Carpal tunnel syndro me on both sides (Primary Dx) Start: 05-24-2024 End: 05-24-2024 ambulatory MAURIZIO PATRICK Not Available Start: 04-18-2024 End: 04-18-2024 ambulatory MILAN P HOUSE Facility:[facility] Start: 04-18-2024 End: 04-18-2024 ambulatory PASCALE LOWE Not Available Start: 04-09-2024 End: 04-09-2024 ambulatory DO MILAN P HOUSE Facility:[facility] Start: 09-23-2023 End: 09-23-2023 ambulatory Abbey Robin Other [email or web address] Other Start: 09-23-2023 Office outpatient vi sit 15 minutes Abbey Robin [facility] [place] Start: 04-15-2023 End: 04-15-2023 ambulatory Marisol Zelaya Other [email or web address] Other Start: 04-15-2023 Office outpatient ne w [...] NAYLOR [address] [place] [phone] Pascale Souza PA [address] [place] [address] [facility] Start: 03-27-2025 End: 03-27-2025 Patient encounter procedure 03/27/2025 8:40 AM EDT Office Visit [facility] [address] [place] [phone] Beto Reyes MD [address] [place] [address] Arrived [facility] Comment on above: Arrived Start: 02-22-2025 End: 02-22-2025 Patient encounter procedure 02/22/2025 9:00 AM EDT Office Visit [facility] [address] [facility] [place] [phone] Tracie Montiel DO [address] [place] [address] [facility] Start: 02-20-2025 End: 02-20-2025 Patient encounter procedure 02/20/2025 10:30 AM EDT Office Visit [facility] [address] [place] [phone] Beto Reyes MD [address] [place] [address] Arrived [facility] Comment on above: Arrived Start: 02-06-2025 End: 02-06-2025 Patient encounter procedure 02/06/2025 2:30 PM EDT Office Visit [facility] [address] [facility] [address] Blair Gan, [employer] [address] [place] [address] Arrived [facility] Comment on above: Arrived Start: 12-03-2024 End: 12-03-2024 Patient encounter procedure [facility] Comment on above: Arrived Start: 10-10-2024 End: 10-10-2024 Patient encounter procedure 10/10/2024 1:40 PM EST Office Visit [facility] [place] [facility] [address] [place] [phone] Pascale Souza PA [address] [place], [place] [id number] [facility] [place] [facility] Start: 07-19-2024 End: 07-19-2024 Patient encounter procedure 07/19/2024 10:40 AM EDT Office Visit [facility] [place] [facility] [address] [place] [phone] Pascale Souza PA [address] [place] [address] [facility] [place] [facility] Start: 06-19-2024 End: 06-19-2024 Patient encounter procedure 06/19/2024 1:00 PM EDT Office Visit [facility] [place] [facility] [address] [place] [phone] Pascale Souza PA [address] [place] [address] [facility] [place] [facility] Start: 06-13-2024 End: 06-13-2024 Patient encounter procedure 06/13/2024 1:00 PM EDT Procedure Visit [facility] [address] [facility] [address] [place] [phone] Maurizio Patrick MD [address] [place] [address] [facility] Start: 05-24-2024 End: 05-24-2024 Patient encounter procedure 05/24/2024 8:30 AM EDT Procedure Visit [facility] [address] [place] [address] Maurizio Patrick MD [address] [place] [id number] Arrived [facility] Comment on above: Arrived EMG 2 Extremities EMG 2 Extremit ies Neurology Routine Carpal tunnel syndrome on both sides Ordered: 05/24/2024 [facility] Work Phone: Comment on above: Ordered: 05/24/2024 Patient Education Low back pain in adults [facility] Work Phone: Payers Date Payer Category Payer Medicare [id number] 2023 Medicare (Managed Care) [facility] MEDICARE [id number] 2021 Medicare [id number] 2.16.840.1.739348.19 1975 Unknown [id number] 2.840.1.567656.3.579.2 .593 1975 Unknown [id number] 2.16.840.1.213250.3.579.2 .593 1975 Unknown [id number] 2.16.840.1.808860.3.579.2 .593 1974 Unknown [id number] 2.16.840.1.625911.3.579.2 .593 1974 Unknown [id number] 2.16.840.1.679490.3.579.2 .593 1974 Unknown [id number] 2.16.840.1.499368.3.579.2 .593 1974 Unknown [id number] 2.16.840.1.009968.3.579.2 .593 1974 Unknown [id number] 2.16.840.1.752910.3.579.2 .593 1974 Unknown [id number] 2.16.840.1.576465.3.579.2 .593 1974 Unknown [id number] 2.16.840.1.282639.3.579.2 .593 1974 Unknown [id number] 2.16.840.1.501307.3.579.2 .593 1974 Unknown [id number] 2.16.840.1.757316.3.579.2 .593 1974 Unknown [id number] 2.16.840.1.170892.3.579.2 .593 1974 Unknown [id number] 2.16.840.1.326902.3.579.2 .1286 1974 Unknown [id number] 2.16.840.1.361664.3.579.2 .718 1974 Unknown [id number] 2.16.840.1.526768.3.579.2 .718 1974 Unknown [id number] 2.16.840.1.055392.3.579.2 .718 1974 Unknown [id number] 2.16.840.1.548512.3.579.2 .1974 Unknown [id number] 2.16.840.1.293648.3.579.2 .1974 Unknown [id number] 2.16.840.1.112173.3.579.2 .1974 Unknown [id number] 2.16.840.1.236333.3.579.2 .1974 Unknown [id number] 2.16.840.1.076579.3.579.2 .1974 Unknown [id number] 2.16.840.1.735825.3.579.2 .1974 Unknown [id number] 2.16.840.1.346625.3.579.2 .1974 Unknown [id number] 2.16.840.1.711186.3.579.2 .1974 Unknown [id number] 2.16.840.1.255365.3.579.2 .1974 Unknown [id number] 2.16.840.1.188977.3.579.2 .1258 1974 Unknown [id number] 2.16.840.1.018031.3.579.2 .1258 1974 Unknown [id number] 2.16.840.1.125768.3.579.2 .1258 1974 Unknown [id number] 2.16.840.1.807511.3.579.2 .1258 1974 Unknown [id number] 2.16.840.1.325411.3.579.2 .1258 1974 Unknown [id number] 2.16.840.1.706115.3.579.2 .1258 1974 Unknown [id number] 2.16.840.1.543923.3.579.2 .12581974 Unknown [id number] 2.16.840.1.935433.3.579.2 .1259 1974 Unknown [id number] 2.16.840.1.219523.3.579.2 .196 1960 Medicare [id number] Private Health Insurance [facility] [id number] Unknown [id number] Social History Date Type Detail Facility Unknown if ever smoked [email or web address] Other Start: 04-11-2024 End: 02-20-2025 Sex Assigned At [employer] [facility] [employer] Other Start: 04-11-2024 Tobacco smoking stat [facility] Never smoked tobacco [facility] Start: 04-11-2024 Tobacco use and exposure Smokeless tobacco non-user [facility] Start: 04-11-2024 End: 12-03-2024 Alcoholic beverage intake Lifetime non-drinker (finding) [facility] Start: 04-11-2024 End: 02-20-2025 History of Social function [facility] Start: 1975 Sex assigned at Not on file N [facility] Start: 02-05-2025 End: 04-17-2025 Tobacco smoking status TNIS Ex-smoker [facility] History of tobacco use Current smoker [facility] History of tobacco use Cigarette Smoker N [facility] Start: 02-05-2025 End: 02-20-2025 Alcoholic beverage intake Ex-drinker (finding) [facility] Sex Male (finding) [facility] Start: 1975 Sex Assigned At Male F [facility] Clinical Notes 04-15-2022 to 04-17-2025 Note Date [...] on CPAP chronic May 13, 2025 8:54am [facility] Work Phone: 1(716) 794-385307-09-2025 History of Present illness Narrative* Beto Reyes [...] disease) 07/25/2024 Hyperlipidemia 07/25/2024 Hypertension 07/25/2024 Ileus ([facility]) 07/24/2024 Migraine 02/19/2025 Nausea and vomiting 07/25/2024 Morbid (severe) obesity due to excess calories ([facility] 02/19/2025 Resolved Ambulatory Problems Diagnosis Date Noted [...] and replace cap. 48 g 3 HYDROcodone-acetaminophen ([place]) 5-325 MG tablet 1 tablet every 6 [...] 07:38:09 EDT From: MILAN NAILS DO To: [facility] Sent: 03/04/2025 07:38:08 EDT Subject: [...] 5 Substitutions Allowed Route To Pharmacy - [facility] Approved with modifications: SUMAtriptan (sumatriptan 100 mg tablet) TAKE 1 TABLET BY MOUTH DAILY Qty: 12 EA Days Supply: 30 Refills: 5 Substitutions Allowed Route To Pharmacy - [facility] Approved with modifications: albuterol (albuterol sulfate HFA 90 mcg/actuation aerosol inhaler) INHALE 2 PUFFS BY MOUTH EVERY 6 HOURS NEEDED Qty: 8.5 gm Days Supply: 25 Refills: 5 Substitutions Allowed Route To Pharmacy - [facility] From: [facility] To: MILAN NAILS DO Sent: March [...] Refills: 5 Substitutions Allowed [id number] Note [id number] [id number] [facility] SURGERY Clinical Discharge Summary PERSON INFORMATION Name RICCARDO HALE Age 49 Years 1975 Sex MALE Language Korean PCP MILAN NAILS DO Marital Status Single Med Service Ambulatory Surgery Acct# Arrival 02/21/2025 06:22:54 Visit Reason SURGERY - COLONOSCOPY - SCREENING Acuity LOS 015 21:32 Address: [address] [place] [phone] Comment: PROVIDER INFORMATION VITALS INFORMATION Vital Sign [...] every day. cyanocobalamin (Vitam (more content not included)...[facility] [id number] History of Present illness Narrative* Beto Reyes [...] 02/19/2025 GERD (gastroesophageal reflux disease) 07/25/2024 Hyperlipidemia ([facility] 07/25/2024 Hypertension ([facility]) 07/25/2024 Ileus ([facility]) 07/24/2024 Migraine 02/19/2025 Nausea and vomiting 07/25/2024 Morbid (severe) obesity due to excess calories ([facility]) 02/19/2025 Resolved Ambulatory Problems Diagnosis Date Noted [...] Take 180 mg by mouth Daily HYDROcodone-acetaminophen (Glenfield) 5-325 MG tablet 1 tablet every 6 [...] Clean ears at F/U documented in this encounterEllis Fischel Cancer [id number] History of Present illness Narrative* Blair Gan [...] Daily fexofenadine (LEIGH) 180 mg, Daily HYDROcodone-acetaminophen (Glenfield) 5-325 MG tablet 1 tablet, Every 6 [...] Use: Not At Risk (10/24/2018) Received from [facility]-C Frequency of Alcohol Consumption: Never Average [...] Strength additional comments: 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 documented in this encounterEllis Fischel Cancer CenterRmkiuittpa30-69-2199 NoteEntered by MILAN NAILS DO on February 04, 2025 10:00:28 EDT From: MILAN NAILS DO To: [facility] Sent: 02/04/2025 10:00:28 EDT Subject: Medication Management Submitted: Complete:DULoxetine (DULoxetine 60 mg oral delayed release capsule) Signed by MILAN NAILS DO 02/04/2025 10:00:00 EDT Approved with modifications: DULoxetine (duloxetine 60 mg capsule,delayed release) TAKE 1 CAPSULE BY MOUTH DAILY Qty: 30 cap(s) Days Supply: 30 Refills: 5 Substitutions Allowed Route To Pharmacy - [facility] From: [facility] To: MILAN NAILS DO Sent: February [...] Refills: 11 Substitutions Allowed Notes from Pharmacy: [place] [id number] Note Entered by MILAN NAILS DO on January 03, 2025 13:01:51 EDT From: MILAN NAILS DO To: [facility] Sent: 01/03/2025 13:01:51 EDT Subject: Medication Management Submitted: Complete:omeprazole (omeprazole 20 mg oral delayed release capsule) Signed by MILAN NAILS DO 01/03/2025 13:01:00 EDT Approved with modifications: omeprazole (omeprazole 20 mg capsule,delayed release) TAKE 1 CAPSULE BY MOUTH DAILY Qty: 30 cap(s) Days Supply: 30 Refills: 5 Substitutions Allowed Route To Pharmacy - [facility] From: [facility] To: MILAN NAILS DO Sent: January [...] Refills: 11 Substitutions Allowed [id number] Telephone encounter Note* Telephone Encounter - Colby Marc MA - 01/03/2025 11:16 AM EDT 12/03/2024 Continue baclofen 10mg PO up to 4 times daily for muscle spasm. Will not allow me to select QID. [place] [id number] Miscellaneous Notes* Telephone Encounter - Colby Marc MA - 01/03/2025 11:16 AM EDT 12/03/2024 Continue baclofen 10mg PO up to 4 times daily for muscle spasm. Will not allow me to select QID. documented in this encounterEllis Fischel Cancer CenterTmdfzsceww43-01-5452 Telephone encounter Note* Telephone Encounter - Patrizia Buenrostro - 12/03/2024 12:18 PM EDT Contacted and he noted the FCE is not needed. He said for the update of disability this is not required. I let him know not to hesitate if we'd be needed. Ellis Fischel Cancer CenterDudhkicstn29-64-6955 Miscellaneous Notes* Telephone Encounter - Patrizia Buenrostro [...] then self-pay @ $505.00. documented in this encounterEllis Fischel Cancer CenterIjzazygevu50-39-7512 Telephone encounter Note* Telephone Encounter - Patrizia Buenrostro - 11/28/2024 1:22 PM EDT Tried to contact re: referral for FCE. Requested a call back to verify if this would be going thru C-[facility], covered; if not then self-pay @ $505.00. Ellis Fischel Cancer CenterTctitbvtoo17-92-3638 NotePROCEDURE: CT Sinus w/o Contrast COMPARISON: None. [...] Christopher Manjarrez MD 11/16/24 9:26 am Technologist: [facility]02-24-2025 NoteEntered by MILAN NAILS DO on November 12, 2024 07:31:34 EST From: MILAN NAILS DO To: [facility] Sent: 11/12/2024 07:31:34 EST Subject: Medication Management Submitted: Complete:lisinopril (lisinopril 20 mg oral tablet) Signed by MILAN NAILS DO 11/12/2024 07:31:00 EST Approved with modifications: lisinopril (lisinopril 20 mg tablet) TAKE 1 TABLET BY MOUTH DAILY Qty: 90 tab(s) Days Supply: 90 Refills: 1 Substitutions Allowed Route To Pharmacy - [facility] From: [facility] To: MILAN NAILS DO Sent: November 09, 2024 6:21:57 PM BUILDING CARPENTER Subject: Medication Management Due: November 10, 2024 12:08:02 AM BUILDING CARPENTER On Hold Pending Signature Drug: lisinopril (lisinopril 20 mg oral tablet), TAKE 1 TABLET BY MOUTH DAILY Quantity: 90 tab(s) Days Supply: 90 Refills: 5 Substitutions Allowed Notes from Pharmacy: Dispensed Drug: lisinopril (lisinopril 20 mg oral tablet), TAKE 1 TABLET BY MOUTH DAILY Quantity: 90 tab(s) Days Supply: 90 Refills: 5 Substitutions Allowed [id number] Note Entered by MILAN NAILS DO on October 26, 2024 14:14:29 EST From: MILAN NAILS DO To: [facility] Sent: 10/26/2024 14:14:29 EST Subject: Medication Management Submitted: Complete:fexofenadine (fexofenadine 180 mg oral tablet) Signed by MILAN NAILS DO 10/26/2024 14:14:00 EST Approved with modifications: fexofenadine (fexofenadine 180 mg tablet) TAKE 1 TABLET BY MOUTH EVERY DAY Qty: 30 tab(s) Days Supply: 30 Refills: 5 Substitutions Allowed Route To Pharmacy - [facility] From: [facility] To: MILAN NAILS DO Sent: October 26, 2024 12:55:48 PM BUILDING CARPENTER Subject: Medication Management Due: October 27, 2024 12:02:15 AM BUILDING CARPENTER On Hold Pending Signature Drug: fexofenadine (fexofenadine 180 mg oral tablet), TAKE 1 TABLET BY MOUTH DAILY Quantity: 30 tab(s) Days Supply: 30 Refills: 5 Substitutions Allowed Notes from Pharmacy: Dispensed Drug: fexofenadine (fexofenadine 180 mg oral tablet), TAKE 1 TABLET BY MOUTH EVERY DAY Quantity: 30 tab(s) Days Supply: 30 Refills: 5 Substitutions Allowed [facility] [id number] Note Entered by MILAN NAILS DO on August 27, 2024 16:27:03 EST From: MILAN NAILS DO To: [facility] Sent: 08/27/2024 16:27:03 EST Subject: Medication [...] 25 Refills: 5 Substitutions Allowed Route To [facility] Approved with modifications: propranolol (propranolol ER 80 mg capsule,24 hr,extended release) TAKE 1 CAPSULE BY MOUTH DAILY Qty: 30 cap(s) Days Supply: 30 Refills: 5 Substitutions Allowed Route To [facility] Approved with modifications: SUMAtriptan (sumatriptan 100 mg tablet) TAKE 1 TABLET BY MOUTH DAILY Qty: 12 EA Days Supply: 12 Refills: 5 Substitutions Allowed Route To [facility] #72 From: [facility] To: MILAN NAILS DO Sent: August 27, 2024 2:39:32 PM BUILDING CARPENTER Subject: Medication Management Due: August 28, 2024 12:06:32 AM BUILDING CARPENTER On Hold Pending Signature Drug: albuterol (Albuterol [...] Refills: 5 Substitutions Allowed [facility] [id number] History of Present illness Narrative* Danya Ritter MA - 07/17/2024 10:30 AM EDT Images from the original note were not included. Reason for Appointment: EMG Patient: Riccardo Hale : 1975 EMG Computer: [employer] Referring Physician: Dr. Maurizio Patrick EMG: GIOVANNA acoustic warfare analyst: Danya Ritter CMA Office Location: [place] Reason for EMG: c/o hypersensitivty to the bottoms of the feet. Paresthesia in the legs. R>L. NoHx of DM, not taking blood thinners. Comments: Procedure explained to the patient who expressed understanding. documented in this encounterEllis Fischel Cancer [id number] History of Present illness Narrative* Danya Ritter MA - 05/24/2024 8:30 AM EDT Images from the original note were not included. Reason for Appointment: EMG Patient: Riccardo Hale : 1975 EMG Computer: [employer] Referring Physician: Pascale Souza PA-C EMG: ASHLEY acoustic warfare analyst: Danya Ritter CMA Office Location: [place] Reason for EMG: c/o burning, numbness, tingling in the hands. R>L. Sometimes has a hard time closing his hand. No Hx of DM, not taking blood thinners. Comments: Procedure explained to the patient who expressed understanding. documented in this encounterEllis Fischel Cancer [id number] NoteEntered by MILAN NAILS DO on May 22, 2024 08:21:07 EDT From: MILAN NAILS DO To: [facility] Sent: 05/22/2024 08:21:07 EDT Subject: Medication Management Submitted: Complete:SUMAtriptan (SUMAtriptan 100 mg oral tablet) Signed by MILAN NAILS DO 05/22/2024 08:21:00 EDT Approved with modifications: SUMAtriptan (sumatriptan 100 mg tablet) TAKE 1 TABLET BY MOUTH DAILY Qty: 12 EA Days Supply: 12 Refills: 2 Substitutions Allowed Route To Pharmacy - [facility] From: [facility] To: MILAN NAILS DO Sent: May [...] Refills: 2 Substitutions Allowed [facility] TownshipSnkgtmvq72-57-1156 Note Entered by MILAN NAILS DO on May 02, 2024 11:28:48 EDT From: MILAN NAILS DO To: [facility] Sent: 05/02/2024 11:28:48 EDT Subject: Medication Management Submitted: Complete:fexofenadine (fexofenadine 180 mg oral tablet) Signed by MILAN NAILS DO 05/02/2024 11:28:00 EDT Approved with modifications: fexofenadine (fexofenadine 180 mg tablet) TAKE 1 TABLET BY MOUTH DAILY Qty: 30 tab(s) Days Supply: 30 Refills: 5 Substitutions Allowed Route To Pharmacy - [facility] From: [facility] To: MILAN NAILS DO Sent: May [...] Refills: 5 Substitutions Allowed [facility] [id number] Evaluation note* Encounter Date Diagnosis Assessment Notes [...] 3 days Sep, Bronchitis (ICD-10 - J40) [email or web address] Other 07-28-2023 Evaluation note* Encounter Date Diagnosis [...] is not contagious from itself or drainage. [email or web address] Other 05-30-2023 NoteCONSULTATION CONSULTATION DATE: 02/15/2023 TO: [...] the lower extremities. MEDICATION: Current medication includes Glenfield 5 mg t.i.d. p.r.n. Patient reports it [...] our patients to inform us about any fwof-yow-xmuwppb medications or herbal remedies/nutritional supplements/alternative remedies. 2. [...] with their primary care provider.[facility] HospitalJfuvnpkv31-05-5159 Note CONSULTATION CONSULTATION DATE: 01/06/2023 TO: Dr. [...] our patients to inform us about any gorj-csy-wsdfunc medications or herbal remedies/nutritional supplements/alternative remedies. 2. [...] with their primary care provider.[facility] HospitalZnvfisib53-75-3200 Note CONSULTATION PROCEDURE DATE: 10/06/2022 PREOPERATIVE DIAGNOSIS: [...] followed up in the office.[facility] [id number] NoteCONSULTATION CONSULTATION DATE: 08/26/2022 HISTORY OF PRESENT [...] his muscle relaxer. Our clinic prescribes his Glenfield 5/325 b.i.d. and diclofenac 75 mg b.i.d. [...] All questions were answered today.[facility] [id number] NoteCONSULTATION CONSULTATION DATE: 07/22/2022 HISTORY OF PRESENT [...] He current does see Dr. Patrick at [facility] as well. Activities that aggravate his pain are pulling, sitting, walking, lying down and bending. He will alternate heat and ice which he feels does not make a significant difference. Medications include trazodone 50 mg q.h.s., tizanidine 4 mg b.i.d., Lyrica 50 mg t.i.d., diclofenac 75 mg b.i.d. and Glenfield 5/325 b.i.d. He does attend pool therapy at the [facility] 2-3 times a week, which he [...] followed up in the office.[facility] HospitalDneffrsa90-45-7075 NoteCONSULTATION CONSULTATION DATE: 04/15/2022 This is a [...] mg b.i.d., Lyrica 50 mg b.i.d. and Glenfield 5/325 b.i.d. He is complaining of trouble [...] is gained for his trigger point injections.[facility] Evaluation note* Diagnosis Lumbar radiculopathy- Primary [...] 9:22am HTN (hypertension) chronic March 212024 9:22am [facility] Work Phone: Evaluation note* Diagnosis Rhinitis medicamentosa Other diseases of nasal cavity and sinuses documented in this encounter [facility] HealthcareHistory general Narrative - Reported* Type Description Date Medical History HTN (hypertension) Medical History GERD (gastroesophageal reflux di sease) Medical History Chronic pain Medical History Anxiety Surgical History tonsillectomy and adenoidectomy Surgical History ablasion [employer] [facility] Other History general Narrative - Reported* Type Description Date Medical History HTN (hypertension) Medical History GERD (gastroesophageal reflux di sease) Medical History Chronic pain Medical History Anxiety Surgical History tonsillectomy and adenoidectomy Surgical History ablasion Surgical History nerve block Surgical History epidural [email or web address] Other Reason for referral (narrative)No reason for referral information availableOhiohealth [facility] Work Phone: Summary Purpose Family History [...] section and content) DATE CREATED AUTHOR 03/09/2018 [facility] DATE CREATED AUTHOR AUTHOR'S ORGANIZ ATION 01/19/2022 [facility] DATE CREATED AUTHOR AUTHOR'S ORGANIZ ATION 02/25/2023 [facility] DATE CREATED AUTHOR AUTHOR'S ORGANIZ ATION 07/27/2024 [facility] DATE CREATED AUTHOR AUTHOR'S ORGANIZ ATION 03/15/2025 [facility] DATE CREATED AUTHOR AUTHOR'S ORGANIZ ATION 03/31/2025 [facility] EPIC DATE CREATED AUTHOR AUTHOR'S ORGANIZ ATION 05/03/2025 [facility] REASON FOR VISIT (unrecogniz ed section and content) Reason Comments Back Pain Numbness Reason Comments Med Refill Reason Onset Date Comments re: referral for FCE 11/28/2024 re: FCE 12/03/2024 Reason Comments Carpal Tunnel Reason Comments Sinusitis Reason Comments Rhinitis medicamentosa 1 month check nos e and clean ears Reason Onset Date Comments Med Refill 05/07/2025 Care Teams (unrecognized sec tion and content) Key Attendant Relationship Specialty Start Date End Date Milan Nails MD [address] [place] [address] PCP - General Family Medicine 12/08/23 Key Attendant Relationship Specialty Start Date End Date Milan Nails MD [address] [place] [address] PCP - General Family Medicine 12/08/23 Key Attendant Relationship Specialty Start Date End Date Milan Nails MD [address] [place] [address] PCP - General Family Medicine 12/08/23 Pascale Souza PA [address] [place] [address] Physician Patient Consumer Marketer Neurology 07/19/24 Maurizio Patrick MD [address] [place] [address] Referring Physician Neurology 07/19/24 Key Attendant Relationship Specialty Start Date End Date Milan Nails MD [address] [place] [address] PCP - General Family Medicine 12/08/23 Key Attendant Relationship Specialty Start Date End Date Milan Nails MD [address] [place] [address] PCP - General Family Medicine 12/08/23 Key Attendant Relationship Specialty Start Date End Date Milan Nails MD [address] [place] [address] PCP - General Family Medicine 12/08/23 Pascale Souza PA [address] [place] [address] Physician Patient Consumer Marketer Neurology 07/19/24 Maurizio Patrick MD [address] [place] [address] Referring Physician Neurology 07/19/24 Key Attendant Relationship Specialty Start Date End Date Milan Nails MD [address] [place] [facility] [place] [address] PCP - General Family Medicine 12/08/23 Pascale Souza PA [address] [place] [address] Physician Patient Consumer Marketer Neurology 07/19/24 Maurizio Patrick MD [address] [place] [address] Referring Physician Neurology 07/19/24 Key Attendant Relationship Specialty Start Date End Date Milan Nails MD [address] [place] [facility] [place] [address] PCP - General Family Medicine 12/08/23 Pascale Souza PA [address] [place] [address] Physician Patient Consumer Marketer Neurology 07/19/24 Maurizio Patrick MD [address] [place] [address] Referring Physician Neurology 07/19/24 Key Attendant Relationship Specialty Start Date End Date Milan Nails MD [address] [place] [facility] [place] [address] PCP - General Family Medicine 12/08/23 Pascale Souza PA [address] [place] [address] Physician Patient Consumer Marketer Neurology 07/19/24 Maurizio Patrick MD [address] [place] [address] Referring Physician Neurology 07/19/24 Key Attendant Relationship Specialty Start Date End Date Milan Nails MD [address] [place] [facility] [place] [address] PCP - General Family Medicine 12/08/23 Pascale Souza PA [address] [place] [address] Physician Patient Consumer Marketer Neurology 07/19/24 Maurizio Patrick MD [address] [place] [address] Referring Physician Neurology 07/19/24 Key Attendant Relationship Specialty Start Date End Date Milan Nails MD [address] [place] [address] PCP - General Family Medicine 12/08/23 Pascale Souza PA [address] [place] [address] Physician Patient Consumer Marketer Neurology 07/19/24 Maurizio Patrick MD [address] [place] [address] Referring Physician Neurology 07/19/24 Key Attendant Relationship Specialty Start Date End Date Milan Nails MD [address] [place] [address] PCP - General Family Medicine 12/08/23 Pascale Souza PA [address] [place] [address] Physician Patient Consumer Marketer Neurology 07/19/24 Maurizio Patrick MD [address] [place] [address] Referring Physician Neurology 07/19/24 Key Attendant Relationship Specialty Start Date End Date Milan Nails MD [address] [place] [address] PCP - General Family Medicine 12/08/23 Pascale Souza PA [address] [place] [address] Physician Patient Consumer Marketer Neurology 07/19/24 Maurizio Patrick MD [address] [place] [address] Referring Physician Neurology 07/19/24 Key Attendant Relationship Specialty Start Date End Date Milan Nails MD [address] [place] [address] PCP - General Family Medicine 12/08/23 Pascale Souza PA [address] [place] [address] Physician Patient Consumer Marketer Neurology 07/19/24 Maurizio Patrick MD [address] [place] [address] Referring Physician Neurology 07/19/24 Key Attendant Relationship Specialty Start Date End Date Milan Nails MD [address] [place] [address] PCP - General Family Medicine 12/08/23 Pascale Souza PA [address] [place] [address] Physician Patient Consumer Marketer Neurology 07/19/24 Maurizio Patrick MD [address] [place] [address] Referring Physician Neurology 07/19/24 Team Status: Active Member Role Status Dates Temi Marshall APRN LOFT WORKER [employer]LE [employer]IVING-C Primary Care Provider Active Team Status: Active [...] April 17, 2025 End: April 17, 2025 Key Attendant Relationship Specialty Start Date End Date Milan Nails MD PCP - General Family Medicine 12/08/23 Pascale Souza PA [address] [place] [address] Physician Patient Consumer Marketer Neurology 07/19/24 Maurizio Patrick MD [address] [place] [address] Referring Physician Neurology 07/19/24 Team Status: Inactive [...] BE BASED ON THE PRIMARY CLINICAL RECORDS. [facility]. provides no warranty or guarantee of the accuracy or completeness of information in this document.
[2025-06-24 10:09] VITALS: BP 136/74; PULSE 66; O2SAT 95
[2025-06-24 10:10] VITALS: BP 137/87; PULSE 66; O2SAT 95
[2025-06-24] MEDS: LIDOCAINE HCL 2% 400 MG/20 ML MDV INJ (10:12)
[2025-06-24] MEDS: BUPIVACAINE HCL 0.25% PF 25 MG/10 ML VIAL INJ (10:12)
[2025-06-24] MEDS: IOHEXOL 240 MG/ML - 10 ML VIAL INJ (10:12)
[2025-06-24] MEDS: 0.9 % SODIUM CHLORIDE 10 ML SYRINGE - SALINE FLUSH INJ (10:12)
[2025-06-24] MEDS: METHYLPREDNISOLONE ACETATE 80 MG/ML VIAL INJ (10:13)
--- NOTE | 2025-06-24 10:17 | P.ON_ITS ---
Date of procedure: 06/24/25 Pre-op diagnosis: Pain due to lumbar stenosis with neurogenic claudication Post-op diagnosis: same as pre-op Procedure: Procedure: Left L4-5, L5-S1 transforaminal epidural steroid injection Medications: Bupivacaine 0.25% 2cc, lidocaine 2% 1cc, depomedrol 80mg The patient was seen and examined in the preoperative holding area.? Informed consent was obtained and placed on the chart.? Patient was brought to the medical procedure unit and placed in the prone position where a timeout was completed verifying the correct patient, procedure site, position, and planned special equipment using sterile aseptic technique.? Under direct fluoroscopic visualization a 25-gauge Quincke tipped spinal needle was advanced to the designated neural foramen where contrast dye was injected to show adequate spread.? The needle was inserted at level left L4-5. There was no evidence of vascular or adverse uptake.? Epidural spread was appreciated.? The above- mentioned injectate was then placed in a 1.5 mL aliquot preceded by negative aspiration.? The needle was removed. The needle was inserted and the procedure repeated at level left L5-S1.? The surgery site was covered.? Patient was taken to the postprocedural recovery area and monitored for an appropriate length of time before found suitable for discharge in the accompaniment of a responsible adult. Anesthesia: Local Surgeon: Renetta Terrazas Pathology: none sent Condition: stable Disposition: no change
== END 2025-06-24 10:18 | disposition home or self-care (01) ==
PROVIDERS: PCP Nurse Practitioner Family; Visit Provider Anesthesiology
DX: M48.062 Spinal stenosis, lumbar region with neurogenic claudication (principal); M54.50 Low back pain, unspecified
CPT/HCPCS: 64483; 64484; J0665; J1010; Q9966

== ENCOUNTER 2025-07-04 09:30 | Outpatient (OUT) | payer MEDICARE, SELFPAY ==
--- OUTSIDE RECORDS SUMMARY | 2017-09-15 07:32 | XMS_ITS | Continuity of Care Document ---
Author Organization [facility] Address [address] [place] [address] Phone Care Team Providers Care Fretted Instruments Inspector Name Role Phone Rufus SANTOS Kavin Unavailable Unavailable Advance Directives Directive Yes / No Effective Date File Name No Information Encounters Encounter Description Practice Location Reason(s) For Visit Diagnoses Date Provider Providers Copied on Encounter [facility], [address] [place], [place], [id number], [place] tel:[phone] [facility] No Information Rufus TRACY Kavin. [address] [place], [place], [id number], [place]. tel:[phone] Family History Family Member Type Diagnosis Age At Onset No Information Payers Payer name Insurance type Covered constitution party ID Authoriza tion(s) No Information Social History [...]
--- OUTSIDE RECORDS SUMMARY | 2025-07-04 09:34 | XMS_ITS | Encounter Summary ---
Author Organization [facility] Address [address], [address] [place] [address] Care Team Providers Care Lime Filter Operator Name Role Phone Unavailable Primary Care Provider Unavailabl e Reason for Visit * Reason Comments Medication Refill Encounter Details Date Type Department Care Team (Late st Contact Info) Description 06/26/2012 Refill Comprehensive [facility] [address] [place] [phone] [place] [address] [place] [address] [phone] Medication Refill Social History Tobacco Use Types [...]
--- OUTSIDE RECORDS SUMMARY | 2025-07-04 09:34 | XMS_ITS | Encounter Summary ---
Author Organization [facility] Address [address], [address] [place] [address] Care Team Providers Care Flame Annealing Machine Operator Name Role Phone Unavailable Primary Care Provider Unavailabl e Reason for Visit * Reason Comments Medication Refill Encounter Details Date Type Department Care Team (Late st Contact Info) Description 07/10/2012 Refill [facility] [address] [place] [phone] [place] [address] [place] [address] [phone] Medication Refill Social History Tobacco Use Types [...]
--- OUTSIDE RECORDS SUMMARY | 2025-07-04 09:34 | XMS_ITS | Clinical Summary ---
Author Organization [employer] Address [id number] [address] [place] [address] Care Team Providers Care Inside Meter Tester Name Role Phone Unavailable Primary Care Provider Unavailabl e Allergies No known active allergies Medications lisinopril [...] drink = 0.6 oz pur e alcohol) [facility] Utilities Answer Date Recorded In the [...] 07/24/2024 8:40 PM EST Plan of Treatment Upcoming Encounters Date Type Department Care Team (Late st Contact Info) Description 07/22/2025 10:20 AM EST Office Visit [facility] - Family Medicine [address] [place] [address] Floyd Jaramillo, COMPUTER SYSTEMS TECHNOLOGY INSTRUCTOR-DISPATCHER [employer] [address] [place] [address] Health Maintenance Due Date Last Done Comments Depression Screening 1986 Adult BMI Follow Up Plan 1992 Zoster (Shingles) Vaccine (1 of 2) 2024 COVID-19 Vaccine (4 - 2024-2 6 season) 2025 07/16/2021, 01/13/2021, 12/19/2020 Influenza [...] DC. Medical Devices Not on file Insurance [employer] MED[employer] Advance Directives * Full Code (Latest Code Status on File) Date Activated Date Inactivated Comments 07/24/2024 5:22 PM 07/27/2024 1:04 PM
--- OUTSIDE RECORDS SUMMARY | 2025-07-04 09:34 | XMS_ITS | Encounter Summary ---
Author Organization [facility] Address [address], [address] [place] [address] Care Team Providers Care Customs Guard Name Role Phone Unavailable Primary Care Provider Unavailabl e Reason for Visit * Reason Comments Medication Refill Encounter Details Date Type Department Care Team (Late st Contact Info) Description 10/23/2011 Refill [facility] [address] [place] [phone] [place] [address] [place] [address] [address] [place], [place] [id number] Medication Refill Social History Tobacco Use Types [...]
--- OUTSIDE RECORDS SUMMARY | 2025-07-04 09:34 | XMS_ITS | Encounter Summary ---
Author Organization [facility] Address [address] [facility], [address] [place] [address] Care Team Providers Care Drama Professor Name Role Phone Unavailable Primary Care Provider Unavailabl e Reason for Visit * Reason Comments Medication Refill Encounter Details Date Type Department Care Team (Late st Contact Info) Description 03/14/2012 Refill [facility] [address] [place] [phone] [place] [address] [place] [id number] Medication Refill Social History Tobacco Use Types [...]
--- OUTSIDE RECORDS SUMMARY | 2025-07-04 09:34 | XMS_ITS | Clinical Summary ---
Author Organization [facility] Address [address] [place] [address] Care Team Providers Care Luncheonette Manager Name Role Phone Milan Nails MD Primary Care Provider [phone] Pascale Souza Unavailable Nghia Galeas MD Unavailable Allergies No known active allergies Medications HYDROcodone-acetam inophen ([place]) 5-325 MG tablet 1 tablet every 6 [...] he was evaluated by a surgeon at [facility] and was not a surgical candidate. He [...] continues to follow with pain management in [place] and had ablation with no significant benefit. He has quit medical marijuana. 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 Lumbar radiculopathy 04/11/2024 Leg numbness 04/11/2024 Encounters Date Type Department Care Team Description 05/07/2025 Refill [facility] [address] [facility] [address] [place] [id number] Edda Bass MD Rhinitis medicamentosa from Last 3 Months Family History Medical [...] file Insurance [employer] MED[employer] Care Teams Luncheonette Manager Relationship Specialty Start Date End Date Milan Nails MD PCP - General Family Medicine 12/08/23 Pascale Souza PA [address] [place] [address] Physician Flame Channeler Neurology 07/19/24 Nghia Galeas MD [address] [place] [address] Referring Physician Neurology 07/19/24
--- OUTSIDE RECORDS SUMMARY | 2025-07-04 09:34 | XMS_ITS | Clinical Summary ---
Author Organization [facility] Address [address] [facility] [address], [address] [place] [address] Care Team Providers Care Outdoor Studies Professor Name Role Phone Unavailable Primary Care [...] Treatment Not on file Insurance [facility]
--- OUTSIDE RECORDS SUMMARY | 2025-07-04 09:36 | XMS_ITS | CCD ---
Author Organization [facility] Care Team Providers Care Investigator Welfare Name Role Phone KIRNUS, DALLAS Unavailable Unavailable [...] Unavailable LAKSHMIPATHY ., NARAAYUSHATH Attending Tiffany vailable GLI ., DR LUCY Maurice Consulting Unavailable GIL [...] GLI ., DR LUCY Maurice Admitting Unavailable HOY [...] Admitting Unavailable CONWAY ., KALI Consulting Unavailable JAQUI, DR SOLO Primary Care Unavailable GIL ., [...] vailable LAKSHMIPATHY ., NARENDRANATH Consulting Tiffany vailable JAQUI, DR SOLO Primary Care Unavailable Marisol Zleaya Unavailable Abbey Robin Unavailable Milan Nails MD Primary Care Provider Pascale Masterson Unavailable Maurizio Patrick MD Unavailable MILAN NAILS Primary Care Unavailable ZAHRA SAL Attending Unavailable TRACIE MATHIS Consulting Unavailable LORENA WOLFF Admitting Unavailable Maurizio Patrick MD Unavailable Unavailable Maurizio Patrick MD Unavailable [phone] PASCALE SOUZA Attending Unavailable BLAIR GAN Attending Unavailable PASCALE SOUZA Attending Unavailable MAURIZIO PATRICK Attending Unavailable BETO REYES Attending Unavailable MILAN NAILS Referring Unavailable BETO REYES Attending Unavailable MAURIZIO PATRICK Attending Unavailable PASCALE SOUZA Attending Unavailable Temi Marshall APRN Primary Care Provider Belinda Negron Attending Provider Unavailable Temi Marshall APRN Attending Provider [phone] Milan Nails MD Primary Care Provider Mk RICHARDS, Renetta Marlow Attending Unavailable Mk RICHARDS, Renetta Marlow Attending Unavailable Martinez Gonzales Attending Unavailable HOUSE, MILAN Medina Primary Care Unavailable Christian, Martinez Admitting Unavailable Gonzales, Martinez Attending Unavailable HOUSE, MILAN P Primary Care [...] six hours as needed for pain HYDROcodone-acetaminophen ([place]) 5-325 MG tablet 1 tablet every 6 (six) hours if needed for severe pain Active take 1 tablet by jay th every six hours as needed Cambridge 5-325 MG 1 tablet as needed Orally every 6 hrs Active [id number] 200 actuat albuterol 0.09 mg/actuat metered dose [...] needed 12/31/2024 Active take 1 capsule by [facility] three times daily as needed Diclofenac [...] Discontinued Start: 08-01-2024 take 1 capsule by [facility] once daily DULoxetine (Cymbalta) [address] capsule Indications: Neuropathic pain TAKE 1 CAPSULE BY MOUTH DAILY 30 capsule 3 08/01/2024 Active Start: 03-26-2024 take 1 capsule by [facility] once daily DULoxetine (Cymbalta) [address] capsule Indications: Neuropathic pain TAKE 1 CAPSULE BY MOUTH DAILY 30 capsule 3 03/26/2024 Active Start: 02-23-2018 End: 04-24-2025 take 1 capsule by mouth once daily Duloxetine 60 mg capsule,delayed release(DR/EC) Active 60 MG PO Daily April 24, 2025 1:20pm Complies with drug therapy take 1 capsule by [facility] once daily DULoxetine HCl 30 MG [...] mg tablet Active 37.5 MG PO Daily 30 30 [place] 25th, 2025 9:09am must administer 30 minutes before [...] [Unilateral primary osteoarthritis, left hip] Onset: 02-19-2025 5 Chronic Other connective tissue disease (1 source) [...] Range Facility Patient Letteron 03-13-2025 Patient Letter [id number]#[id number] 0[facility] Coding Summaryon 03-04-2025 Coding Summary HTMLBase 64 CcztorvuJEw4fAi+PGhlYW Q+VM5ANRJlS91jgSZyoZ6z S4VUNIyVCsptZWZLTRfCIy KaxlZpIP8xsSGcIQBh IC8+CC6uOOPfNuuivVDzg9 H9fXS0G16byk4dXXgfkVG9 WBCnHaOnihvhb6ehtSi0SP cuNmluOyBt UGUfjP98GDZ9nB25Dm10mS OkyYMcs5dbfPo5WdRuCDPs DRB0oVtgIPmql0KsREGpB7 2kbBGep9C7 AKXnbEyjcWHtPeJdoAC1uQ 0wAYdyqhvni6fqrfgsQys3 ph72vBPie9Q0yQG2Q3Kknv P3HOWqiYLx YhqszIIHrT5bzstzh2pnoy akBbVdBORyLXn6LZl7NZUz aEygYcZmZB15JRT5YUYbdw WjR4JeQNVl oIcbMqA2y6T9Bg8ZD7FOYc mzT5ZHASODVUssmFX+PC90 yn78Q9AxCowySrq0QGNzXT P0zDB1lY7j URCaCUbnn1X3mBB8B9Mlfm Sjka4yu1nlTESiUAkmH97k qGKvv9T7ALLzfFA2DKIygZ fmEwPrfB61 Oyc+XVTeoJofg3NiCacfv5 kvl8cdcZl9CfjiCIHpslTm sAxmUFU4y7BaKx2fFVTdwO V4aMC8zD2i CmQaXbK8HSajT876UyXacC ShCsdtW67qL0ZvgDY+PHRy Zvq0MXNmvVzwKX3aO7XmDO RpbmctbGVm yYclEI2nMTBqqezdIQVrcA 1oXCPhN0f7UaVvMwM2UIta T9GpHAKigzdxQj12gU8uMm WaVnQ6CGcx W7UopqV2PWLnjOGdDJhrOA G6F41dr5V0AVWlKLIfVWE1 cNI4dH5wfIphnfjaoGRmgT sgdmVydGlj WNxuNHwhY847BWIqtWslSa NvZGluZyBEYXRlOiAgMDYv MTYvMjAyNTwvdGQ+PHRkIH R8xEkxZLCp iVHoDLsoTk6alYggmXltXH 9lAQMhhatxFANnvC0fRGSm xJBeuVtjHL4eLFNvsqrjd8 51NdPfMUT5 OIMsvDIkS9FmuM6sSxMbVI DgRNOwX8VjyPLrQXqlA869 WKszCjD0AJMxztRjM0TcNE FsaWduOiB0 j2P3Xs9Jv8KhqljaS3BcaR PsUlObZaqrDTx3M0DdGkrf dHI+CH64EUOsKA55LLy3ZR U1rSimZIxs QXQwZ6JogI7fQkRyTWVoDS RkOyc+PHRhYmxlIHdpZHRo VQngCAZzJmLraBuwUN5vNg 9yZGVyLWNv vLtfaFBjNqKoe0seSUUsDM syUG7ffNwzS6UrzJG1UTGy p3t6Xy05T75gH4FypHW+PG RqtXL0aWH9 qP1hMkWuOhC9DDspK569Qv KdkPJbIiofg2wuz5feeQl6 PcD0XDSvnvDxiMkeOES8l3 TzMj40Y98n IHdpZHRoPSIxNSUiIHZhbG unqc1ouX1iCn3+PGNvbCB3 aMA5dL0dUlXwDgG8ORfjZ4 49InRvcCIv Ywric1eoz6ravYb5CuVwGY MbmoAesTbhSHD0c3VhMo21 E0GgbFdcq6QsArv0am55jL Nww9W0aMI9 P4WcABFvmneitSXbqMdvQZ 1sZFUfvryrYUNreT8wESYy R9a1YiOiAzG6SXbyJ5Jvij O6THQxuJPf BCFpyJHMdK0xkplnq5yitz pvSkEvIHEhHWd1OWw3OJYq tHsfCcCjKFR9SpK3VGF9vO QncE7wfAxm awxiiD3mJjj+FAF4dIVjyY OMXS4sYecfyPN+PHRkIHN0 uEyjGAlaSLIuwH0dXZMjX0 n4WsNxMqS2 LZuzH0TshuJ3LOFpqTOlJH FraQXDvG8ygjmhr4jnosiz UcHvHNVnXUk5KRa2ZBLkaA duOiBsZWZ0 BeZ7NAH8jJVjeF2cpBuxgf yieN5oAun+QmlydGggRGF0 ISf1L9ZnHei8REBdmQuxMQ 0ncGFkZGlu Qu6ifHxjvNxoAL1hQIEovi wgg296XcFrh0mdUBGdrWXx FHuvHRU1R30rs5P2BDCoQZ ZsOKR7kEI6 hG7imQwiyjdvbGVmvUswyz DnjKvwNGmhVGbiR514TNXs tTskWgKkGGi7I4UyUxj6ZO PtkImeEM0f hPNkRBatKx4qtMcogCxnVC 0kRKBsjaoeo662JsGcw6kk XFTnsYWtWSatGRO5K38gr5 L3XOFuSGSv YEH1dDB4mL4jpIrwkoelgV VmdDsgdmVydGljYWwtYWxp A528LWFxmObeFuTrlGa2B4 RhDnj3TJDu yLtuJI5izQPsHQiaNx2cwD eesUyvLF5hOSHeldtie523 PtLxr7uuSFHmyATuJCesQX A5Z65rs6W1 MKJbNYStGSK0rDH6xN0onV lnbjogbGVmdDsgdmVydGlj NSjfCMjgB143ZHVnkRzzMp BhdGllbnQg TFuoNYd7E4ZnWbgpxPB+PC 14SEGrFT56rXXzeWHjc0eo lLs8CxDtCSAyLIC6kPlmDM rqb9GcTZPw C61ulFDbj1S3DDNbpVwydM YvIzRtdTD8vJ0nTTqlxztc d8tybxepVueng1huqd12mQ 55E97gDChc ZHRoPSIzMCUiIHZhbGlnbj 2msD3mId0+JPWxxAW0qCR7 pA8gGFMfBrC4NWmmO143Uj RvcCIvPjxj w9ylz3ynmHk9OhC9ZZPiek LwhPkzFZR8n0IoGb04T83u IHdpZHRoPSIyMCUiIHZhbG pver5fjK4v Ii8+KBOffJV1xLV6aS8xFe GuMjN1PHnjV760EdCfpELk RtijA68tO8CqvNP+PHRyPj o0HMIvlAdj QE6goNOsWNmqDl0sRTC8Xx PbItOfRIxaL6VkONYadtrk vmuheDM9MIUdXJAwnK07Nl 9udDogMTBw oTBYaO5mblvid1oqjbowXp CmXSIhZDu2GRz1KCJetFxv EqXoFAO1StF0TAE3dYScwB 1hbGlnbjog sX8tR5XnYXYrumjmZt74uQ 1nDlGqHiN1TXtiBkh+U0VE KC5JFucgR1KKHVBLNKUPA9 FSRDwvdGQ+ HLMsFFF6aXeoRHoaIVJohH 3yKJGpX3b2ZoUaBsS5VVfk G8RjTTDhkzovRu13pM8eUq YuBoA8FPqh J3QeooO4YCVovDZhNVxqDP W2J06jr9V3DDPoLRGpXNQ2 lYL0zZ3piVbrfyihoZVnwE sgdmVydGlj QKknBBysW936ROOawOwyNm AqBkPuEkO4VlW1K2VrTcz0 VPLzgOppCN6ktLQnQJzhKn 1yaWdodDog YP4aCOBnkkauXHZpfK3vNZ CjtOEhgHfjRX7tPJEdmfdr e997LaSjSTH4MCZofSCxM6 OhlY9jYiEk OPIjKNMwC5EeqJViQRymN7 35MHctZxD4BTZbswBqS2Bf GVKdlEmcWcZ2d0B3Ml12PY BZZWFyczwv dGQ+VIWgAHT1mAwiTLryCP RqoZ9lEHJzZ3o2LcLrYqN7 KDmvS8TpCTLjgzojJb38aI 8tUlOkExV1 NZzsY8AqtmB8QDPxiMZyOW qjJBQ1E77rf3X7VEGvMRUu YST3tSH1yX8zcRfuaslieV VmdDsgdmVy hRlkMUtxTUfqP685DOMacW qeZw5IUPW8H8CbDok0MZIb sFodVN6ugAHvJCekRd1koY smnOgtCJ2y KROnoldxBGZnxZ0kXUTkrP RzxSjgSX1nDQFzatrdy817 PuCjBCO9DKZlcJJvC0XrrC 9yOiAjMDAw GDXmN1HspNAhFPdzY161FC peKzI5GSTkssFtE4KaDLSx iHjfSsQ5p7K6Si1SBOqiZ7 DoV5UbdBvz dGQ+ST75pl90G5MwMgzsTu a7VBLyZOV3yUG6hR2eUZBr WUoir6W1zBX6K3YtvcXjao 9wy2rkFVDe BJsqL08ifFTbg9R4IIJzvM Y1KKUgiOknOcUpfY03Cnv+ XIZdeHbfh2RjOtapx9jcc4 rsbVg4FtUb VYSvcsTwoWxlRMR5d2GeAq 17A61pPGjwTQRwTSXxWMBr MJMjyNwcrj2aqN6pXu1+PG FngHJ4nDV0 gM7pDrDaBpS2GDwcU161Dh TsdPZgIeurt0jih6gtkOc3 KgGmGDWpnmFkxKejTEG9y2 VoIj68U4It aMtpb4GvQne4jo73rCXhl1 G5gVL4Y1ZaFFWuwgijyZJr aJgkJP0rNWXcphjkYQQerS 0qEEAkH5r4 KoZqIpT3ZBxcJ3QphrP9KQ ImoWDoZEYvoNLThS7nxdzg q1uztwamCiVzBYNdVCx0YW h9IXWumVuh TnYwAHJ8RbW2XOQ6oPYvcF 6mbHqhcakffZ1iJpm+UGh5 t2yetYAvLV8pdIY8NC93ZP 34yNTyi4M6 nEV0X2PkTAGgkufoxdlntX Y8VYZzXNWmmL96Ba4wcKtf Wk8cMWUuMVX6WHWvmVGeU3 UnsV2oHsDr KTCiADKlD2ZuaYYfIJnvI2 07RNwwOpV7PQWfpmHaZ2Gi ORJfyLcrEiE6s9W3Gt3PMI 23PG72VW51 yLObu1L6oQJ9P1SjXFBcrk vfizxrpPA2SSUfZDBxdU12 Xz2iiFpoTe7dSXQzDCC9DQ JgsGRuY8Id eY5gFmRxQHUyYVMmA5CbkH KxYDhlX411DEaySfN6WQAz yeBcQ0MjOFQscTsxVtQ7h5 K0Ht3ITu17 KA53XZ77lJRmv3O2kFL9S1 SnWPTrrrlbwxqthZK5AMSi WXIxdM62Cc3srEotOq9dWH FiGVZ1NOTs cVZdQ1ParK0oFiSdHATzPI AwP2ZxhYWiXAcgL401DVma JvQ6LQEejqJxJ5QsSLFooO tgKdF1u0J6 Pe2CWTuwqhl7F5RfIgyitY I+LJ59LFXoHH97tLSrmEZe a1vvfMx2LyNoZBMfMBI4sN kdYEalv7Ta ZXI (more content not included)... [facility] Provider Orderson 02-25-2025 Provider Orders [id number]#[id number] [facility] Consent Formson 02-22-2025 Consent Forms [id number]#[id number] [facility] Anesthesia Noteon 02-21-2025 Anesthesia Note Patient: RICCARDO HALE Age: 49 years Sex: MALE : 1975 Associated Diagnoses: None Author: Eitan Ramírez MD Postoperative Information Post Operative Note Health Status Allergies: Allergic Reactions (All) No known allergies Problem list: All Problems Chronic sinusitis / SNOMED CT 77578735 / Confirmed Side effect of medication / SNOMED CT 620657781 / Confirmed Headache / SNOMED CT 47504885 / Confirmed Hypertension / SNOMED CT 4150722669 / Confirmed Ileus / SNOMED CT 8340813759 / Confirmed Migraine / SNOMED CT 98371511 / Confirmed Nausea / SNOMED CT 6609716973 / Confirmed Obesity / SNOMED CT 0087948044 / Confirmed GRACIE (obstructive sleep apnea) / SNOMED CT 583112016 / Confirmed Sleep apnea / SNOMED CT 550303204 / Confirmed Umbilical hernia / SNOMED CT 1569972949 / Confirmed Physical Examination Vital Signs (last [...] on: 02/21/2025 08:59 EDT] Eitan Ramírez MD [facility] Anesthesia Note Patient: RICCARDO HALE Age: [...] All Problems Chronic sinusitis / SNOMED CT 88289781 / Confirmed Side effect of medication / SNOMED CT 000096755 / Confirmed Headache / SNOMED CT 91386480 / Confirmed Hypertension / SNOMED CT 0513558198 / Confirmed Ileus / SNOMED CT 5851981180 / Confirmed Migraine / SNOMED CT 83072485 / Confirmed Nausea / SNOMED CT 7635451410 / Confirmed Obesity / SNOMED CT 3576572111 / Confirmed GRACIE (obstructive sleep apnea) / SNOMED CT 418777958 / Confirmed Sleep apnea / SNOMED CT 590036229 / Confirmed Umbilical hernia / SNOMED CT 0992316495 / Confirmed Histories Family History: COPD - [...] 06:34) Review / Management Laboratory Results Plan [place] [employer] Anesthesiologists (ASA) physical status classification: Class III. Anesthetic Preoperative Plan Anesthesia: Monitored anesthesia care. Anesthetic plan, risks, benefits, and alternatives discussed with the patient and/or family. Patient verbalized understanding. [Electronically Signed on: 02/21/2025 07:31 EDT] Eitan Ramírez MD [Verified on: 02/21/2025 07:31 EDT] Eitan Ramírez MD [facility] Inpatient Patient Summaryon 02-21-2025 Inpatient Patient Summary [place] [id number] Patient Discharge Instructions Name: RICCARDO HALE : 1975 Patient Address: [address] [place] [address] Primary Care Provider: Name: MILAN NAILS DO After you are discharged if you find you have any questions, please, call [phone] ext [phone] to speak to a nurse. Discharge Diagnosis: [...] alcohol and/or drug addiction problems; contact the [facility] 11/04 Crisis Hotline -Text 4HOPE to 573835. If you received any narcotics, sedation, or [...] business decisions or sign any legal documents [facility] would like to thank you for allowing us to assist you with your healthcare needs. The following includes patient education materials and information regarding your injury/illness. RCICARDO HALE MARYSE has been given the following list of follow-up instructions, prescriptions, and patient education materials: Follow-up Instructions With: Address: When: MILAN JAQUI With: Address: When: Martinez Gonzales [address] [place] [address], [place] [id number] Business (1) , only if needed Medications [...] 1 cap(s) Ora (more content not included)... [facility] MAGR Intraoperative Record MAGR Intra-Op Record Summary Primary Physician: Martinez Gonzales MD Finalized Date/Time: 02/21/25 08:30:12 Pt. Name: RICCARDO HALE/Sex: 1975 MALE Med Rec #: [id number] Physician: Martinez Gonzales MD Financial #: [id number] Pt. Type: D Room/Bed: / Admit/Disch: 02/21/25 [...] Ramírez MD, Debra RN Radloff, Leigh-Ann CSFA PASTING MACHINE OPERATOR Role Performed Anesthesiologist of Machine Pan Greaser Scouring Machine Operator Record Time In 02/21/25 08:03:00 02/21/25 08:03:00 [...] Ramírez MD, Jessica Arredondo RN, Melvin Causey [facility], Dale Rothman Last Modified By: Jessica [...] RN Airway Maintenance (more content not included)... [facility] MAGR Postoperative Recordon 02-21-2025 MAGR Postoperative Record MAGR Phase II Record Summary Primary Physician: Martinez Gonzales MD Finalized Date/Time: 02/21/25 09:09:46 Pt. Name: RICCARDO HALE/Sex: 1975 MALE Med Rec #: [id number] Physician: Martinez Gonzales MD Financial #: [id number] Pt. Type: D Room/Bed: / Admit/Disch: 02/21/25 [...] Signed By: Elvira Hirsch RN 02/21/25 09:[address] [facility] 0 02-21-2025 MAGR Preoperative Record MAGR Pre-Op Record Summary Primary Physician: Martinez Gonzales MD Finalized Date/Time: 02/21/25 08:05:28 Pt. Name: RICCARDO HALE /Sex: 1975 MALE Med Rec #: [id number] Physician: Martinez Gonzales MD Financial #: [id number] Pt. Type: D Room/Bed: / Admit/Disch: 02/21/25 [...] Signed By: Jessica Arredondo RN 02/21/25 08:05 [facility] Patient Handouton 02-21-2025 Patient Handout Gastroenterology [...] exercise. ? You smoke. ? You take tjxn-nfy-txvuuni pain medicines. ? You have a family [...] these instructions at home: Medicines ? Take gxhn-tpv-qiqetsp and prescription medicines only as told by your provider. ? If told, take a fiber supplement or probiotic. Managing constipation Your condition may cause constipation. To prevent or treat constipation, you may need to: ? Drink enough fluid to keep your pee (urine) pale yellow. ? Take oykn-sgm-vagbaer or prescription medicines. ? Eat foods that [...] provider. Document Revised: 06/02/2023 Document Reviewed: 06/02/2023 Dealo Patient Education ? 2023 [employer]. Radiology Colonoscopy, Adult, Care After The following [...] for 20?30 minutes (more content not included)... [facility] Outside Recordson 02-06-2025 Outside Records [id number]#[id number] [facility] Release of Informationon Release of Information [id number]#[id number] [facility] Coding Summaryon 11-26-2024 Coding Summary HTMLBase 64 VrlarrigNTf8jZn+PGhlYW Q+QW7ZYJFuV62zoHTrhG3j B3TBSCxATxmjXDFKRDuJBv HribMySD1yaTFsAJWb IC8+GS0mFXDbMygcvWMht7 S7dAY5Q33imr4pCOgwkFJ1 NAVxMvCxmxqng5qlhSe7DT cuNmluOyBt GUOxdZ11AEU2zO16Ou25cF NnvKHpp5kudAa1JmGyHKOr HSI3dDveHSuos0VjAYIbR5 3xxYTpx9O9 DSRbvWbghRLoNoYdpXD1lH 9eQFoszfjte3ddnytaQzg0 sc41uJIoy0M8tCA9R5Qxmk M8JPKchSEr WocnrOORzK5aombdr0hciv dkOfYqCUXgOBh0JUz4YBOb hNphIkWcVL24DDC6PPCtul AvG7UlIWRb eTphAhF7h3V4Ly2BX5ZLPv kaQ1TWQRLWFPdkzRH+PC90 mw59J4KeDgouYvs1KMFwRM B8uQH5qR5a NPTjKMban2L4gBY5P7Ozyj Qbcu3iw3lpGGUyNYklZ13w qDGni6D0JWZysZK5FISffR niRkBecX73 Oyc+SYBqdKkea8MfAugvf7 aqa4qpqMt8AnzjEWDucfZn qYsaXHA9e9BnOx0gGJQknX X0wXJ9bJ4v CzNxHyI5EOhiL976SqItnR PnNrajJ94sQ7UwgJF+PHRy Uua5EMYkwYwaVL6jP1AjKC RpbmctbGVm aFmeRN2gQJSzwdvcVXZuiI 1jXAZaJ1k7QfZjFbA0AGvm M1LrYITuflccGi72mC9mDu TtRcL1YCbr T4WlqnT1WELezVOjMTyqKR Y9G53iz9C9MDXkWNRuARW6 nCR2qG3dbBlgwatbnVOvbP sgdmVydGlj VVvyLMciE379PTPzsQekOe NvZGluZyBEYXRlOiAgMDMv MTAvMjAyNTwvdGQ+PHRkIH V1fQyxXBIz cUVhLIkjOl8jyNedvCsdAS 1cRWAokgvrWUNyqU0dLRSd qMKllGyxNI2eHIEtpiduh4 39LfVaTMP2 GSRyeLBlP7KlpU2iUgRpEC UqBRQnK2VbeEHlYKkyA575 ZFuoJcN6RZBscuQeZ8HaYB FsaWduOiB0 i4J8Wd5Vw6JkhwwlF6JdwI CkYdLeUndtDRo0Q7TpBksh dHI+WX11OHFiBX77MMi1HO L2mZgaSTqe VTXxE1EwdU6cHoWcHUEaKH RkOyc+PHRhYmxlIHdpZHRo BDjwPQBbJvDhsUicHW4oAr 9yZGVyLWNv gUkdxUJeDvBna2coJWZrZX yzBA3ghAxlI8XbmXB8ZBSd g1y5Uv48H85nQ2UyaXT+PG GsxVA0wRX3 bV3tEeLwEbA3GHqaG547Lk EauLCdHrbxy6xqz6lvoCc2 DeV8WWWeysWgrBdqSXU3p8 DcGk31B74t IHdpZHRoPSIxNSUiIHZhbG wstb5vrV9pKu6+PGNvbCB3 ePC0oL9gFqGgWjX8WJczN5 49InRvcCIv Ojond8iap6sphOm1UeIsND LemfWneYfjWDS6p3FjKb40 S6DlgLutj2JtVjg8kr67fW Wou8E4gNH3 L1XmGBSjojljaKZweJaoKP 3hWPVxzoutBWHmdA5bLYXr V1f9KgPeVlG6PItkO9Yecf K9UVScoEMx XSBzxMYIfR5epcdxx6ozwz rbNtRxGBMmSBn8HEg5YQDs oThoHvXaPDG1YxI2HYF9hN NhnZ9xsTjx ionegW2mJsc+KRX0dHYhjF WPDN1vYpymoHF+PHRkIHN0 uVetGXznKNPlsL0sHUQwG8 f3QmXnJbG1 SQrvB7VnqrD2SXNxkXRrTU GtgDGXiY7mjwthe5vaaqgk PyChXMEpLVt3JFd0OIJzjN duOiBsZWZ0 VpK5RKT9pEKxmW0wfLzdjk bkxW0sOpw+QmlydGggRGF0 IOu8X9GqIuy9HXDonRrgVM 0ncGFkZGlu Ly0zyTxvbEbiFQ2tGGHpmg tfj923JjHdw7dhJDOkxHDk PGgeBIM7Q83eg0D3THMeGQ AyGPT2cYC2 kM0pnNjesfycxGAmaYqpmz DyqHuiIPnhILiiO539OVKz sSbhGuFuJYg9E4WxOye8VP OicVeuHU9p yFEjVEyqGw8mhWmppYxhHD 9wKGGvpctiy358NdJbr9pv UOAijWCfTDtvRGV7V75fv3 D1DZVqWZVh QRZ8bRN5wA0gvAryqvhtzT VmdDsgdmVydGljYWwtYWxp Y246HSUnhQdzIbGhcBb8V5 RcPtf9DKEe pAwyBM8blENwOZfdJl9raH jrcJqgHG4kGPZbsytcy598 ZeOqg7pcVGHelAVuRGnwZF O2M02gt9X5 SSNmGKJuGMD6iKM6dM5cjA lnbjogbGVmdDsgdmVydGlj YCclDBrrX042DAGtqZvtEi BhdGllbnQg XRusPOy7X0YqGsvliVK+PC 42XMBzHI12jBMlnLSib0tr vUo6MbIoGLEsCFP2uWzhNB dqz0NeHXJn T66rsWIog3G2SCEmgBvwrF GeQaZghYC8aF8lOPlxxsxs o0mqarvxBndjc1mtbq31zC 52A26pZFgu ZHRoPSIzMCUiIHZhbGlnbj 2pvZ2gEv7+LVNrrCY9uMN3 aG4oGSKrVsU1RIogK054Hf RvcCIvPjxj s9ogn1ctvHz6DeB4SRIzmt YhjGbsKWO8h0VlYh41J22t IHdpZHRoPSIyMCUiIHZhbG lzkq0gxO0e Ii8+NEVerIQ7lUU4mZ4jVf HzNmV5EPwhK369NpVcmSDg TvyiD44fN3ZsbNM+PHRyPj w3YDLbzAbp QU7rsDNwHMlyVj7nGTL0Bb WwZtCyUGytA3LaWWSueepz evxshHF7ECItWBZdkQ68Yz 9udDogMTBw qCVVnL0bawvar1xftqhyHy CtUCCtHIa7MRo6MMDpvBln RuXrRPA4PrC2IPP0kOZyjE 1hbGlnbjog zB3sB1JpWATpybclLz04lV 3oCmIoVuD1WNovMfn+U0VE FZ4ABtdjD3CYMMGQVVADZ1 FSRDwvdGQ+ ETLoITE6gVxmAGkmFIPyzD 9sGGUaM8p6BbShDnD1ZSky O2DgOKKxushbOg80rE8wEk NuOaP8JPin A8PbwvC4VRScsIRaQQojUF V2Q05yq7B0MAQrBVYnNPZ3 vXL1hR2dsSmvvgzclBTixP sgdmVydGlj EKplPAgyR699UDYqxPvuZn IxYsUuZoW5CxH6S2SmEvo1 OXAxjUvgNT1ofMJwDNijZq 1yaWdodDog IK2kOYKvujsoEJKheP6bTG HtjROxpIooKC1cBSVkhvop h325MjIzCAW6INUrrTNsL4 DhbB1kLgZx SOEaOGQiO7ZwxMBxNFksR3 52XBvuLsH4TKMlnoHpL5Ow VKLawKnmQdP5n4P0Sd34VZ BZZWFyczwv dGQ+EUJpAVA1kIjsJCbsZG LaxW9qJKDjS9p5LwSoXcL0 JGzbW7OiEBGtyynxHh67bL 3hPyFlEzI1 MTjfG6XerkW1SKHfrCCcNE akODA7S01il4D8CVXmRZQd FVB5zTU4yW7luLagtqbhrW VmdDsgdmVy kXofIZvaEOxzC627HCPlpQ fvPz8YQXI5B1PiMkq4HERb xEtaIK5cuRKoEHliQh6vxF cfrEypEV5x NLWgtwqyNBYriP3nUTDkbX GobJowFO2xUJMefbogl437 CwQaLHI2FSAlcJMfC2XzeG 9yOiAjMDAw ZNCkS4PwnVPrHTjrO427QL clFqN2VICdyeOvN7PsHZWc eWgpYxE8d4Q7Yu6WXTtewT Q+RU43ju38 Y4PbCsacYbk5YLMgBBV2sT F8sC2aNSXeRCwhv4T0cVD6 K3KwvqCunl2ir4sjXCFyUP ixG30fkPXn l8G8WIWfhVL2HCWpiHghZa LgbR47Gfv+DNQxnCuuw7Or Xmqbg6ggr1fycEj8LaSdIT IgdmFsaWdu AAR5u2FzFm53N58aNIdbGT KiBCTfDCYrARXmyGsmbj7b fH1aRq6+SZZhoYS5gXJ1uT 9yRyCsKfA1 MKbfH392JnXuiDXdBtcrg5 kay7hnxYl0SjQvLBEyynLy lGhjEFA4i3IyCm85W3KeuY bdf2AaPnc9 wk73qGGxd5Y6pAL9N4QnMS HoxlyolJEyoCgjOR6uUILo gpfvEJTozZ7fJTQoA0q7Ix NzGjK0OZxl C1ZzsmC7FVUeaJTqOACioC CXeM1jftujg6ianwzgYfBm BIUuLYs7ZXv0HXHvqSqfEd YrPGI6NaI9 MQW2nPOnrN6ljFrmyzkbuF 9wOyc+OAu3m1hmuRWvYP4s cUG6CJ50YZ78kLKrn8P4mD D0Z3WoHGJf drzuwbhuyDG4ESOzDERctR 45Ol9woVfqQb0jBUXlBFG2 SPXlzTFjJ2CesS6lJwJcUI IlBRLdC2Vx dVHcFRzhF779XVxgKwV6XG WcjyBrG2EvKPFkiSnmKzM0 e2M1Zu1SCA08AL29MR88kQ Pjy9C9oHS5 I6ZhCCXiqqmbdozvcYO8GR NtPMXosE80Xf9qiCqtIk6h QSEzFDQ9VGSwxUKbS2TnwT 9yOiAjMDAw KEOpY1PzdUAkELajL412HN ffKmT4CLJndrGsG2TlVTJb tVviZaL7c0B3Ij2TYx56TQ 37DS97rOZb g9Z2bPP8N1KuCPAnjwidky wawDG1WKMdPNXmjV61Oe9q zNqrZc3vEKEiGTL0FZRrmL YqI7UwhI9b ApHcRTOlOQKoD0XamZMqPB rqO548JMgwPgS0AAUqciMd Y0NvLCTsaWynIbT5s2G2Vr 3BWEseidm5 X8TaOthdhFP+HH10QAPpEG 41dWFkdTVyu9hnmXd5LsAm EIUvUNO9lGkaOGvuj9EbJR GkC53blITj c2U (more content not included)... [facility] Reminder Messageson 11-20-19 25 Reminder Messages - From: MILAN NAILS DO To: [facility] Clinical Pool ([facility]); Sent: 11/19/2024 07:59:43 EST ! Show up: 11/19/2024 07:59:43 EST Subject: Results Follow Up Actions: Call the patient with result(s) Due Date/Time: 11/20/2024 07:59:00 EST Reminder Comments: cysts seen in both maxillary sinuses. suggest ent referral Results: Date Result Type Result Name 11/16/2024 9:[address] Sinus w/o Contrast Order placed [facility] Outside Recordson 11-08-2024 Outside Records [id number]#1.0 0OTGTIFF [facility] Outside Recordson 08-09-2024 Outside Records [id number]#1. 00OTGTIFF [facility] CBC AND AUTO DIFFon 07-27-20 24 ABSOLUTE BASOPHIL 0.1 X10E9/L Normal 0.0-0.2 [facility] Comment on above: Performed By: #### C ANTONIETTA HERRERA, 3040-3 #### [facility] ([id number]) [address] [place] [address], [place] [address] ABSOLUTE NEUTROPHIL 5.7 X10E9/L Normal 1.5-6.6 [facility] Comment on above: Performed By: #### C ANTONIETTA HERRERA, 3040-3 #### [facility] ([id number]) [address] [place] [address] 52012 Basophils/100 WBC (Bld) 0.6 % Normal [facility] Comment on above: Performed By: #### Yousif HERRERA CMP, 3039-3 #### [facility] ([id number]) [address] [place] [address]888 Eosinophils (Bld) [#/Vol] 0.2 10*3/uL Normal 0.0-0.4 [facility] Comment on above: Performed By: #### Yousif HERRERA CMP, 3 #### [facility] ([id number]) [address] [place] [address] 79253 Eosinophils/100 WBC (Bld) 2.4 % Normal [facility] Comment on above: Performed By: #### Yousif HERRERA CMP, 3 #### [facility] ([id number]) [address] [place] [address] 65962 Erythrocyte distribution width (RBC) [Ratio] 12.8 % Normal 11.5-15.0 [facility] Comment on above: Performed By: #### Yousif HERRERA [facility], 3 #### [facility] ([id number]) [address] [place] [address] 74409 Hematocrit (Bld) [Volume fraction] 40.2 % Normal 39-49 [facility] Comment on above: Performed By: #### Yousif HERRERA CMP, 3 #### [facility] ([id number]) [address] [place] [address] 12285 Hemoglobin (Bld) [Mass/Vol] 13.4 g/dL Normal 13.0-17.0 [facility] Comment on above: Performed By: #### Yousif HERRERA CMP, 3039-3 #### [facility] ([id number]) [address] [place] [address] 64933 Lymphocytes (Bld) [#/Vol] 2.5 10*3/uL Normal 1.0-3.5 [facility] Comment on above: Performed By: #### Yousif HERRERA CMP, 3039-11 #### [facility] ([id number]) [address] [place] [address] 64188 Lymphocytes/100 WBC (Bld) 26.9 % Normal [facility] Comment on above: Performed By: #### Yousif HERRERA CMP, 3039-11 #### [facility] ([id number]) [address] [place] [address] 58419 MCH (RBC) [Entitic mass] 28.9 pg Normal 27-34 [facility] Comment on above: Performed By: #### Yousif HERRERA CMP, 3039-11 #### [facility] ([id number]) [address] [place] [address] 78585 MCHC (RBC) [Mass/Vol] 33.4 g/dL Normal 32-36 [facility] Comment on above: Performed By: #### Yousif HERRERA CMP, 3039-11 #### [facility] ([id number]) [address] [place] [address] 73060 MCV (RBC) [Entitic vol] 87 fL Normal 80-100 [facility] Comment on above: Performed By: #### Yousif HERRERA CMP, 3039-11 #### [facility] ([id number]) [address] [place] [address] 93096 Monocytes (Bld) [#/Vol] 0.9 10*3/uL Normal 0-0.9 [facility] Comment on above: Performed By: #### Yousif HERRERA CMP, 3039-11 #### [facility] ([id number]) [address] [place] [address] 08389 Monocytes/100 WBC (Bld) 9.2 % Normal [facility] Comment on above: Performed By: #### Yousif HERRERA CMP, 3039-3 #### [facility] ([id number]) [address] [place] [address] 68437 Neutrophils/100 WBC (Bld) 60.9 % Normal [facility] Comment on above: Performed By: #### Yousif HERRERA CMP, 3039-3 #### [facility] ([id number]) [address] [place] [address] 49180 Platelet mean volume (Bld) [Entitic vol] 8.7 fL Normal 7-12 [facility] Comment on above: Performed By: #### Yousif HERRERA CMP, 3 #### [facility] ([id number]) [address] [place] [address] 16483 Platelets (Bld) [#/Vol] 351 10*3/uL Normal 150-450 [facility] Comment on above: Performed By: #### Yousif HERRERA, CMP, 3 #### [facility] ([id number]) [address] [place] [address] 97904 RBC COUNT 4.64 X10E12/L Normal 4.10-5.70 [facility] Comment on above: Performed By: #### Yousif HERRERA CMP, 3 #### [facility] ([id number]) [address] [place] [address] 90343 WBC (Bld) [#/Vol] 9.3 10*3/uL Normal 4.0-11.0 [facility] Comment on above: Performed By: #### Yousif HERRERA, CMP, 3 #### [facility] ([id number]) [address] [place] [address] 53505 COMPREHENSIVE METABOLIC PANE Brian 07-27-2024 Albumin [Mass/Vol] 3.8 g/dL Normal 3.2-5.3 [facility] Comment on above: Performed By: #### Yousif HERRERA CMP, 3039-3 #### [facility] ([id number]) [address] [place] [address] 93179 ALP [Catalytic activity/Vol] 53 U/L Normal 39-130 [facility] Comment on above: Performed By: #### C BCA, CMP, 3039-3 #### [facility] ([id number]) [address] [place] [address] 88786 ALT [Catalytic activity/Vol] 16 U/L Normal 0-40 [facility] Comment on above: Performed By: #### C BCA, CMP, 3 #### [facility] ([id number]) [address] [place] [address] 72286 Anion gap [Moles/Vol] 9 mmol/L Normal 5-15 [facility] Comment on above: Performed By: #### C BCA, CMP, 3 #### [facility] ([id number]) [address] [place] [address] 82438 AST [Catalytic activity/Vol] 15 U/L Normal 0-41 [facility] Comment on above: Performed By: #### C BCA, CMP, 3 #### [facility] ([id number]) [address] [place] [address] 89336 Bilirubin [Mass/Vol] 1.0 mg/dL Normal 0.3-1.2 [facility] Comment on above: Performed By: #### C BCA, CMP, 3039-3 #### [facility] ([id number]) [address] [place] [address] 95544 Calcium [Mass/Vol] 8.8 mg/dL Normal 8.5-10.5 [facility] Comment on above: Performed By: #### C BCA, CMP, 3039-3 #### [facility] ([id number]) [address] [place] [address] 76835 Chloride [Moles/Vol] 106 mmol/L Normal 98-109 [facility] Comment on above: Performed By: #### C ANTONIETTA HERRERA, 3039-3 #### [facility] ([id number]) [address] [place] [address] 03996 CO2 [Moles/Vol] 25 mmol/L Normal 22-32 [facility] Comment on above: Performed By: #### C JAVIER [facility], 3039-3 #### [facility] ([id number]) [address] [place] [address] 28896 Creatinine [Mass/Vol] 0.83 mg/dL Normal 0.70-1.20 [facility] Comment on above: Result Comment: METH OD TRACEABLE TO IDMS STANDARD Performed By: #### C ANTONIETTA HERRERA, 3 #### [facility] ([id number]) [address] [place] [address] 46990 eGFR (CKD-EPI) NON-RACE DEPENDENT >90 Normal >59 [facility] Comment on above: Result Comment: Reported eGFR is based on the CKD-EPI 2020 equation that does not use a race coefficient. Performed By: #### C ANTONIETTA HERRERA, 3 #### [facility] ([id number]) [address] [place] [address] 49019 Glucose [Mass/Vol] 103 mg/dL High 65-99 [facility] Comment on above: Performed By: #### C JAVIER [facility], 3039-11 #### [facility] ([id number]) [address] [place] [address] 75385 Potassium [Moles/Vol] 4.3 mmol/L Normal 3.5-5.0 [facility] Comment on above: Performed By: #### C ANTONIETTA HERRERA, 3039-3 #### [facility] ([id number]) [address] [place] [address] 33006 Protein [Mass/Vol] 6.3 g/dL Normal 6.0-8.0 [facility] Comment on above: Performed By: #### C ANTONIETTA HERRERA, 3040-3 #### [facility] ([id number]) [address] [place] [address] 79625 Sodium [Moles/Vol] 140 mmol/L Normal 134-146 [facility] Comment on above: Performed By: #### C ANTONIETTA HERRERA, 3039-3 #### [facility] ([id number]) [address] [place] [address] 84729 Urea nitrogen [Mass/Vol] 5 mg/dL Normal 5-23 [facility] Comment on above: Performed By: #### Yousif HERRERA CMP, 3039-3 #### [facility] ([id number]) [address] [place] [address] 58973 MAGNESIUMon 07-27-2024 Magnesium [Mass/Vol] 2.1 mg/dL Normal 1.8-2.6 [facility] Comment on above: Performed By: #### C ANTONIETTA HERRERA, 3039-3 #### [facility] ([id number]) [address] [place] [address] 48515 CBC AND AUTO DIFFon 07-26-20 24 ABSOLUTE BASOPHIL 0.0 X10E9/L Normal 0.0-0.2 [facility] Comment on above: Performed By: #### Yousif HERRERA CMP, 0-3 #### [facility] ([id number]) [address] [place] [address] 52038 ABSOLUTE NEUTROPHIL 5.6 X10E9/L Normal 1.5-6.6 [facility] Comment on above: Performed By: #### Yousif HERRERA CMP, 0-3 #### [facility] ([id number]) [address] [place] [address] 19458 Basophils/100 WBC (Bld) 0.5 % Normal [facility] Comment on above: Performed By: #### C ANTONIETTA HERRERA, 3 #### [facility] ([id number]) [address] [place] [address] 09199 Eosinophils (Bld) [#/Vol] 0.3 10*3/uL Normal 0.0-0.4 [facility] Comment on above: Performed By: #### Yousif HERRERA CMP, 3 #### [facility] ([id number]) [address] [place] [address] 96927 Eosinophils/100 WBC (Bld) 3.7 % Normal [facility] Comment on above: Performed By: #### Yousif HERRERA CMP, 3039-11 #### [facility] ([id number]) [address] [place] [address] 92575 Erythrocyte distribution width (RBC) [Ratio] 12.7 % Normal 11.5-15.0 [facility] Comment on above: Performed By: #### Yousif HERRERA CMP, 3039-11 #### [facility] ([id number]) [address] [place] [address] 70867 Hematocrit (Bld) [Volume fraction] 41.7 % Normal 39-49 [facility] Comment on above: Performed By: #### Yousif HERRERA CMP, 3039-11 #### [facility] ([id number]) [address] [place] [address] 02454 Hemoglobin (Bld) [Mass/Vol] 14.4 g/dL Normal 13.0-17.0 [facility] Comment on above: Performed By: #### Yousif HERRERA CMP, 3039-3 #### [facility] ([id number]) [address] [place] [address] 41430 Lymphocytes (Bld) [#/Vol] 2.2 10*3/uL Normal 1.0-3.5 [facility] Comment on above: Performed By: #### Yousif HERRERA CMP, 3039-11 #### [facility] ([id number]) [address] [place] [address] 15184 Lymphocytes/100 WBC (Bld) 25.4 % Normal [facility] Comment on above: Performed By: #### C JAVIER, CMP, 3039- #### [facility] ([id number]) [address] [place] [address] 61127 MCH (RBC) [Entitic mass] 29.7 pg Normal 27-34 [facility] Comment on above: Performed By: #### Yousif HERRERA, CMP, 3039-11 #### [facility] ([id number]) [address] [place] [address] 84292 MCHC (RBC) [Mass/Vol] 34.5 g/dL Normal 32-36 [facility] Comment on above: Performed By: #### Yousif HERRERA CMP, 3039-11 #### [facility] ([id number]) [address] [place] [address] 58514 MCV (RBC) [Entitic vol] 86 fL Normal 80-100 [facility] Comment on above: Performed By: #### Yousif HERRERA, CMP, 3039-11 #### [facility] ([id number]) [address] [place] [address] 66200 Monocytes (Bld) [#/Vol] 0.7 10*3/uL Normal 0-0.9 [facility] Comment on above: Performed By: #### Yousif HERRERA, CMP, 3039-11 #### [facility] ([id number]) [address] [place] [address] 58479 Monocytes/100 WBC (Bld) 7.4 % Normal [facility] Comment on above: Performed By: #### Yousif HERRERA, CMP, 3039-3 #### [facility] ([id number]) [address] [place] [address] 92755 Neutrophils/100 WBC (Bld) 63.0 % Normal [facility] Comment on above: Performed By: #### Yousif HERRERA CMP, 3039-3 #### [facility] ([id number]) [address] [place] [address] 90559 Platelet mean volume (Bld) [Entitic vol] 8.6 fL Normal 7-12 [facility] Comment on above: Performed By: #### Yousif HERRERA CMP, 3 #### [facility] ([id number]) [address] [place] [address] 70228 Platelets (Bld) [#/Vol] 345 10*3/uL Normal 150-450 [facility] Comment on above: Performed By: #### Yousif HERRERA CMP, 3 #### [facility] ([id number]) [address] [place] [address] 89365 RBC COUNT 4.84 X10E12/L Normal 4.10-5.70 [facility] Comment on above: Performed By: #### Yousif HERRERA CMP, 3 #### [facility] ([id number]) [address] [place] [address] 22678 WBC (Bld) [#/Vol] 8.8 10*3/uL Normal 4.0-11.0 [facility] Comment on above: Performed By: #### Yousif HERRERA CMP, 3 #### [facility] ([id number]) [address] [place] [address] 04736 COMPREHENSIVE METABOLIC PANE Brian 07-26-2024 Albumin [Mass/Vol] 3.9 g/dL Normal 3.2-5.3 [facility] Comment on above: Performed By: #### Yousif HERRERA CMP, 3039-3 #### [facility] ([id number]) [address] [place] [address] 45170 ALP [Catalytic activity/Vol] 57 U/L Normal 39-130 [facility] Comment on above: Performed By: #### C BCA, CMP, 3039-3 #### [facility] ([id number]) [address] [place] [address] 37862 ALT [Catalytic activity/Vol] 21 U/L Normal 0-40 [facility] Comment on above: Performed By: #### C BCA, CMP, 3039-3 #### [facility] ([id number]) [address] [place] [address] 35626 Anion gap [Moles/Vol] 9 mmol/L Normal 5-15 [facility] Comment on above: Performed By: #### C BCA, CMP, 3 #### [facility] ([id number]) [address] [place] [address] 77556 AST [Catalytic activity/Vol] 18 U/L Normal 0-41 [facility] Comment on above: Performed By: #### Yousif BCA, CMP, 3039-3 #### [facility] ([id number]) [address] [place] [address] 59180 Bilirubin [Mass/Vol] 0.9 mg/dL Normal 0.3-1.2 [facility] Comment on above: Performed By: #### C BCA, CMP, 3039-3 #### [facility] ([id number]) [address] [place] [address] 55983 Calcium [Mass/Vol] 8.8 mg/dL Normal 8.5-10.5 [facility] Comment on above: Performed By: #### C BCA, CMP, 3039-3 #### [facility] ([id number]) [address] [place] [address] 23464 Chloride [Moles/Vol] 106 mmol/L Normal 98-109 [facility] Comment on above: Performed By: #### Yousif BCA, CMP, 3039-3 #### [facility] ([id number]) [address] [place] [address] 19704 CO2 [Moles/Vol] 23 mmol/L Normal 22-32 [facility] Comment on above: Performed By: #### C ANTONIETTA HERRERA, 0-3 #### [facility] ([id number]) [address] [place] [address] 58212 Creatinine [Mass/Vol] 0.80 mg/dL Normal 0.70-1.20 [facility] Comment on above: Result Comment: METH OD TRACEABLE TO IDMS STANDARD Performed By: #### C ANTONIETTA HERRERA, 3 #### [facility] ([id number]) [address] [place] [address] 61994 eGFR (CKD-EPI) NON-RACE DEPENDENT >90 Normal >59 [facility] Comment on above: Result Comment: Reported eGFR is based on the CKD-EPI 2020 equation that does not use a race coefficient. Performed By: #### C ANTONIETTA HERRERA, 3039-3 #### [facility] ([id number]) [address] [place] [address] 08840 Glucose [Mass/Vol] 83 mg/dL Normal 65-99 [facility] Comment on above: Performed By: #### Yousif HERRERA CMP, 3039-3 #### [facility] ([id number]) [address] [place] [address] 53910 Potassium [Moles/Vol] 3.4 mmol/L Low 3.5-5.0 [facility] Comment on above: Performed By: #### Yousif HERRERA CMP, 3039-3 #### [facility] ([id number]) [address] [place] [address] 00563 Protein [Mass/Vol] 6.6 g/dL Normal 6.0-8.0 [facility] Comment on above: Performed By: #### Yousif HERRERA CMP, 3039-3 #### [facility] ([id number]) [address] [place] [address] 92786 Sodium [Moles/Vol] 138 mmol/L Normal 134-146 [facility] Comment on above: Performed By: #### Yousif HERRERA CMP, 3040-3 #### [facility] ([id number]) [address] [place] [address] 61216 Urea nitrogen [Mass/Vol] 8 mg/dL Normal 5-23 [facility] Comment on above: Performed By: #### Yousif HERRERA CMP, 3040-3 #### [facility] ([id number]) [address] [place] [address] 58733 MAGNESIUMon 07-26-2024 Magnesium [Mass/Vol] 2.0 mg/dL Normal 1.8-2.6 [facility] Comment on above: Performed By: #### Yousif HERRERA CMP, 3040-3 #### [facility] ([id number]) [address] [place] [address] 94247 POTASSIUMon 07-26-2024 Potassium [Moles/Vol] 3.3 mmol/L Low 3.5-5.0 [facility] Comment on above: Performed By: #### Yousif HERRERA CMP, 3040-3 #### [facility] ([id number]) [address] [place] [address] 85431 Potassium [Moles/Vol] 3.1 mmol/L Low 3.5-5.0 [facility] Comment on above: Performed By: #### Yousif HERRERA CMP, 3040-3 #### [facility] ([id number]) [address] [place] [address] 54553 XR ABDOMEN AP 1 VWon 024 XR [...] Valenzuela MD on 07/26/2024 8:55 AM Normal [facility] CBC AND AUTO DIFFon 07-25-20 24 ABSOLUTE BASOPHIL 0.1 X10E9/L Normal 0.0-0.2 [facility] Comment on above: Performed By: #### C ANTONIETTA HERRERA, 63539-0 #### [facility] ([id number]) [address] [place] [address] 23818 ABSOLUTE NEUTROPHIL 4.3 X10E9/L Normal 1.5-6.6 [facility] Comment on above: Performed By: #### Yousif HERRERA CMP, 82519-5 #### [facility] ([id number]) [address] [place] [address] 74772 Basophils/100 WBC (Bld) 0.7 % Normal [facility] Comment on above: Performed By: #### Yousif HERRERA CMP, 88897-9 #### [facility] ([id number]) [address] [place] [address] 18190 Eosinophils (Bld) [#/Vol] 0.4 10*3/uL Normal 0.0-0.4 [facility] Comment on above: Performed By: #### Yousif HERRERA CMP, 05644-0 #### [facility] ([id number]) [address] [place] [address] 22711 Eosinophils/100 WBC (Bld) 4.5 % Normal [facility] Comment on above: Performed By: #### Yousif HERRERA CMP, 80816-0 #### [facility] ([id number]) [address] [place] [address] 83504 Erythrocyte distribution width (RBC) [Ratio] 12.9 % Normal 11.5-15.0 [facility] Comment on above: Performed By: #### Yousif HERRERA CMP, #### [facility] ([id number]) [address] [place] [address] 61320 Hematocrit (Bld) [Volume fraction] 40.5 % Normal 39-49 [facility] Comment on above: Performed By: #### C ANTONIETTA HERRERA, #### [facility] ([id number]) [address] [place] [address] 13019 Hemoglobin (Bld) [Mass/Vol] 13.8 g/dL Normal 13.0-17.0 [facility] Comment on above: Performed By: #### Yousif HERRERA [facility], #### [facility] ([id number]) [address] [place] [address] 96218 Lymphocytes (Bld) [#/Vol] 2.7 10*3/uL Normal 1.0-3.5 [facility] Comment on above: Performed By: #### Yousif HERRERA [facility], #### [facility] ([id number]) [address] [place] [address] 25021 Lymphocytes/100 WBC (Bld) 32.2 % Normal [facility] Comment on above: Performed By: #### Yousif HERRERA [facility], #### [facility] ([id number]) [address] [place] [address] 21779 MCH (RBC) [Entitic mass] 29.5 pg Normal 27-34 [facility] Comment on above: Performed By: #### C JAVIER [facility], #### [facility] ([id number]) [address] [place] [address] 56977 MCHC (RBC) [Mass/Vol] 34.0 g/dL Normal 32-36 [facility] Comment on above: Performed By: #### Yousif HERRERA CMP, #### [facility] ([id number]) [address] [place] [address], [place] [address] MCV (RBC) [Entitic vol] 87 fL Normal 80-100 [facility] Comment on above: Performed By: #### Yousif HERRERA CMP, #### [facility] ([id number]) [address] [place] [address] 54873 Monocytes (Bld) [#/Vol] 1.0 10*3/uL High 0-0.9 [facility] Comment on above: Performed By: #### Yousif HERRERA CMP, #### [facility] ([id number]) [address] [place] [address] 94105 Monocytes/100 WBC (Bld) 11.8 % Normal [facility] Comment on above: Performed By: #### Yousif HERRERA CMP, #### [facility] ([id number]) [address] [place] [address] 60823 Neutrophils/100 WBC (Bld) 50.8 % Normal [facility] Comment on above: Performed By: #### Yousif HERRERA [facility], #### [facility] ([id number]) [address] [place] [address] 97485 Platelet mean volume (Bld) [Entitic vol] 8.6 fL Normal 7-12 [facility] Comment on above: Performed By: #### Yousif HERRERA CMP, #### [facility] ([id number]) [address] [place] [address] 86460 Platelets (Bld) [#/Vol] 355 10*3/uL Normal 150-450 [facility] Comment on above: Performed By: #### Yousif HERRERA, CMP, #### [facility] ([id number]) [address] [place] [address] 52599 RBC COUNT 4.67 X10E12/L Normal 4.10-5.70 [facility] Comment on above: Performed By: #### C BCA, CMP, 39364-8 #### [facility] ([id number]) [address] [place] [address] 12735 WBC (Bld) [#/Vol] 8.4 10*3/uL Normal 4.0-11.0 [facility] Comment on above: Performed By: #### C BCA, CMP, #### [facility] ([id number]) [address] [place] [address] 58203 COMPREHENSIVE METABOLIC PANE Brian 07-25-2024 Albumin [Mass/Vol] 3.7 g/dL Normal 3.2-5.3 [facility] Comment on above: Performed By: #### C BCA, CMP, 94938-1 #### [facility] ([id number]) [address] [place] [address] 45571 ALP [Catalytic activity/Vol] 56 U/L Normal 39-130 [facility] Comment on above: Performed By: #### C BCA, CMP, 66463-6 #### [facility] ([id number]) [address] [place] [address] 20697 ALT [Catalytic activity/Vol] 21 U/L Normal 0-40 [facility] Comment on above: Performed By: #### C BCA, CMP, #### [facility] ([id number]) [address] [place] [address] 57686 Anion gap [Moles/Vol] 5 mmol/L Normal 5-15 [facility] Comment on above: Performed By: #### C BCA, CMP, 99000-5 #### [facility] ([id number]) [address] [place] [address] 39607 AST [Catalytic activity/Vol] 16 U/L Normal 0-41 [facility] Comment on above: Performed By: #### C BCA, CMP, #### [facility] ([id number]) [address] [place] [address] 85912 Bilirubin [Mass/Vol] 0.8 mg/dL Normal 0.3-1.2 [facility] Comment on above: Performed By: #### C ANTONIETTA HERRERA, 72807-5 #### [facility] ([id number]) [address] [place] [address] 20547 Calcium [Mass/Vol] 8.4 mg/dL Low 8.5-10.5 [facility] Comment on above: Performed By: #### C ANTONIETTA HERRERA, #### [facility] ([id number]) [address] [place] [address] 11464 Chloride [Moles/Vol] 110 mmol/L High 98-109 [facility] Comment on above: Performed By: #### C ANTONIETTA HERRERA, #### [facility] ([id number]) [address] [place] [address] 53159 CO2 [Moles/Vol] 23 mmol/L Normal 22-32 [facility] Comment on above: Performed By: #### C ANTONIETTA HERRERA, #### [facility] ([id number]) [address] [place] [address] [id number] Creatinine [Mass/Vol] 0.94 mg/dL Normal 0.70-1.20 [facility] Comment on above: Result Comment: METH OD TRACEABLE TO IDMS STANDARD Performed By: #### C ANTONIETTA HERRERA, [id number] #### [facility] ([id number]) [address] [place] [address] [id number] eGFR (CKD-EPI) NON-RACE DEPENDENT >90 Normal >59 [facility] Comment on above: Result Comment: Reported eGFR is based on the CKD-EPI 2020 equation that does not use a race coefficient. Performed By: #### C ANTONIETTA HERRERA, #### [facility] ([id number]) [address] [place] [address] [id number] Glucose [Mass/Vol] 102 mg/dL High 65-99 [facility] Comment on above: Performed By: #### C ANTONIETTA HERRERA, 85029-3 #### [facility] ([id number]) [address] [place] [address] 58966 Potassium [Moles/Vol] 3.6 mmol/L Normal 3.5-5.0 [facility] Comment on above: Performed By: #### C ANTONIETTA HERRERA, 44922-6 #### [facility] ([id number]) [address] [place] [address] 36586 Protein [Mass/Vol] 6.3 g/dL Normal 6.0-8.0 [facility] Comment on above: Performed By: #### Yousif HERRERA [facility], 32104-9 #### [facility] ([id number]) [address] [place] [address] 66522 Sodium [Moles/Vol] 138 mmol/L Normal 134-146 [facility] Comment on above: Performed By: #### C JAVIER [facility], 01382-3 #### [facility] ([id number]) [address] [place] [address] 60340 Urea nitrogen [Mass/Vol] 12 mg/dL Normal 5-23 [facility] Comment on above: Performed By: #### Yousif HERRERA, [facility], 24017-5 #### [facility] ([id number]) [address] [place] [address] ABDOMEN AND PELVIS W CONT on [...] Findings Committee. J Am Ag Radiol. 2017 Apr;14(8):3840-[address] scans at this facility use dose modulation, iterative reconstruction, and/or weight based dosing when appropriate to reduce radiation dose to as low as reasonably achievable. Finalized by Bam Camejo MD on 07/25/2024 10:48 AM Normal [facility] Glucose Glucometer (dC) [M ass/Vol]on 07-25-2024 Glucose [Mass/Vol] 76 mg/dL Normal 65-99 [facility] MAGNESIUMon 07-25-2024 Magnesium [Mass/Vol] 1.9 mg/dL Normal 1.8-2.6 [facility] Comment on above: Performed By: #### C ANTONIETTA HERRERA, 60952-3 #### [facility] ([id number]) [address] [place] [address] XR CHEST 1 VWon 07-25-2024 XR CHEST [...] extends below the diaphragm and off the [id number]. IMPRESSION: 1. No acute cardiopulmonary disease. 2. Moderate-sized hiatal hernia. There is a gastric tube with the tip extending below the diaphragm and off the fvsdy-gp-iddq. Finalized by Francisco Bangura MD on 07/25/2024 5:24 PM Normal [facility] XR CHEST 1 VW XR CHEST 1 [...] Carlisle MD on 07/25/2024 3:36 PM Normal [facility] CBC AND AUTO DIFFon 07-24-20 24 ABSOLUTE BASOPHIL 0.1 X10E9/L Normal 0.0-0.2 [facility] Comment on above: Performed By: #### C ANTONIETTA HERRERA, 3040-3 #### [facility] ([id number]) [address] [place] [address] 19697 ABSOLUTE NEUTROPHIL 7.3 X10E9/L High 1.5-6.6 [facility] Comment on above: Performed By: #### Yousif HERRERA CMP, 304-3 #### [facility] ([id number]) [address] [place] [address] 77633 Basophils/100 WBC (Bld) 1.0 % Normal [facility] Comment on above: Performed By: #### Yousif HERRERA CMP, 3039-11 #### [facility] ([id number]) [address] [place] [address] 53190 Eosinophils (Bld) [#/Vol] 0.3 10*3/uL Normal 0.0-0.4 [facility] Comment on above: Performed By: #### Yousif HERRERA CMP, 3 #### [facility] ([id number]) [address] [place] [address] 61464 Eosinophils/100 WBC (Bld) 2.5 % Normal [facility] Comment on above: Performed By: #### Yousif HERRERA [facility], 3039-11 #### [facility] ([id number]) [address] [place] [address] 42728 Erythrocyte distribution width (RBC) [Ratio] 13.0 % Normal 11.5-15.0 [facility] Comment on above: Performed By: #### Yousif HERRERA CMP, 3 #### [facility] ([id number]) [address] [place] [address] 12980 Hematocrit (Bld) [Volume fraction] 47.6 % Normal 39-49 [facility] Comment on above: Performed By: #### Yousif HERRERA CMP, 3039-3 #### [facility] ([id number]) [address] [place] [address] 26350 Hemoglobin (Bld) [Mass/Vol] 16.2 g/dL Normal 13.0-17.0 [facility] Comment on above: Performed By: #### C ANTONIETTA HERRERA, 3039-3 #### [facility] ([id number]) [address] [place] [address] 80973 Lymphocytes (Bld) [#/Vol] 2.1 10*3/uL Normal 1.0-3.5 [facility] Comment on above: Performed By: #### Yousif HERRERA CMP, 3 #### [facility] ([id number]) [address] [place] [address] 51878 Lymphocytes/100 WBC (Bld) 19.2 % Normal [facility] Comment on above: Performed By: #### Yousif HERRERA CMP, 3 #### [facility] ([id number]) [address] [place] [address] 15333 MCH (RBC) [Entitic mass] 29.4 pg Normal 27-34 [facility] Comment on above: Performed By: #### Yousif HERRERA [facility], 3 #### [facility] ([id number]) [address] [place] [address] 75607 MCHC (RBC) [Mass/Vol] 34.0 g/dL Normal 32-36 [facility] Comment on above: Performed By: #### Yousif HERRERA CMP, 3 #### [facility] ([id number]) [address] [place] [address] 31314 MCV (RBC) [Entitic vol] 86 fL Normal 80-100 [facility] Comment on above: Performed By: #### Yousif HERRERA CMP, 3039-3 #### [facility] ([id number]) [address] [place] [address] 20745 Monocytes (Bld) [#/Vol] 1.3 10*3/uL High 0-0.9 [facility] Comment on above: Performed By: #### C JAVIER, CMP, 0-3 #### [facility] ([id number]) [address] [place] [address] 69046 Monocytes/100 WBC (Bld) 11.6 % Normal [facility] Comment on above: Performed By: #### Yousif HERRERA, CMP, 3039-3 #### [facility] ([id number]) [address] [place] [address] 75762 Neutrophils/100 WBC (Bld) 65.7 % Normal [facility] Comment on above: Performed By: #### Yousif HERRERA, CMP, 3039-3 #### [facility] ([id number]) [address] [place] [address] 88687 Platelet mean volume (Bld) [Entitic vol] 8.4 fL Normal 7-12 [facility] Comment on above: Performed By: #### Yousif HERRERA, CMP, 3039-3 #### [facility] ([id number]) [address] [place] [address] 05875 Platelets (Bld) [#/Vol] 470 10*3/uL High 150-450 [facility] Comment on above: Performed By: #### Yousif HERRERA, CMP, 3039-3 #### [facility] ([id number]) [address] [place] [address] 74937 RBC COUNT 5.52 X10E12/L Normal 4.10-5.70 [facility] Comment on above: Performed By: #### Yousif HERRERA, CMP, 3039-3 #### [facility] ([id number]) [address] [place] [address] 59431 WBC (Bld) [#/Vol] 11.1 10*3/uL High 4.0-11.0 [facility] Comment on above: Performed By: #### Yousif HERRERA, CMP, 3039-3 #### [facility] ([id number]) [address] [place] [address] 86455 COMPREHENSIVE METABOLIC PANE Brian 07-24-2024 Albumin [Mass/Vol] 4.3 g/dL Normal 3.2-5.3 [facility] Comment on above: Performed By: #### C BCA, CMP, 3040-3 #### [facility] ([id number]) [address] [place] [address] 38338 ALP [Catalytic activity/Vol] 63 U/L Normal 39-130 [facility] Comment on above: Performed By: #### C JAVIER, CMP, 3039-3 #### [facility] ([id number]) [address] [place] [address] 99309 ALT [Catalytic activity/Vol] 25 U/L Normal 0-40 [facility] Comment on above: Performed By: #### Yousif HERRERA, CMP, 3039-3 #### [facility] ([id number]) [address] [place] [address] 72672 Anion gap [Moles/Vol] 9 mmol/L Normal 5-15 [facility] Comment on above: Performed By: #### Yousif HERRERA, CMP, 3039-3 #### [facility] ([id number]) [address] [place] [address] 32167 AST [Catalytic activity/Vol] 23 U/L Normal 0-41 [facility] Comment on above: Performed By: #### Yousif BCA, CMP, 3039-3 #### [facility] ([id number]) [address] [place] [address] 44953 Bilirubin [Mass/Vol] 1.4 mg/dL High 0.3-1.2 [facility] Comment on above: Performed By: #### C BCA, CMP, 0-3 #### [facility] ([id number]) [address] [place] [address] 92325 Calcium [Mass/Vol] 10.1 mg/dL Normal 8.5-10.5 [facility] Comment on above: Performed By: #### C ANTONIETTA HERRERA, 3040-3 #### [facility] ([id number]) [address] [place] [address] 30372 Chloride [Moles/Vol] 104 mmol/L Normal 98-109 [facility] Comment on above: Performed By: #### C ANTONIETTA HERRERA, 3039-3 #### [facility] ([id number]) [address] [place] [address] 61943 CO2 [Moles/Vol] 22 mmol/L Normal 22-32 [facility] Comment on above: Performed By: #### Yousif HERRERA CMP, 304-3 #### [facility] ([id number]) [address] [place] [address] 92323 Creatinine [Mass/Vol] 1.05 mg/dL Normal 0.70-1.20 [facility] Comment on above: Result Comment: METH OD TRACEABLE TO IDMS STANDARD Performed By: #### C ANTONIETTA HERRERA, 3040-3 #### [facility] ([id number]) [address] [place] [address] 10710 GFR/1.73 sq M.predicted among non-blacks MDRD (S/P/Bld) [Vol rate/Area] 87 mL/min/{1.73_m2} Normal >59 [facility] Comment on above: Result Comment: Reported eGFR is based on the CKD-EPI 1 equation that does not use a race coefficient. Performed By: #### C ANTONIETTA HERRERA, 3040-3 #### [facility] ([id number]) [address] [place] [address] 95548 Glucose [Mass/Vol] 113 mg/dL High 65-99 [facility] Comment on above: Performed By: #### Yousif HERRERA CMP, 3040-3 #### [facility] ([id number]) [address] [place] [address] 05657 Potassium [Moles/Vol] 3.7 mmol/L Normal 3.5-5.0 [facility] Comment on above: Performed By: #### C BCA [facility], 3040-3 #### [facility] ([id number]) [address] [place] [address] 85021 Protein [Mass/Vol] 7.9 g/dL Normal 6.0-8.0 [facility] Comment on above: Performed By: #### C JAVIER [facility], 3040-3 #### [facility] ([id number]) [address] [place] [address] 23122 Sodium [Moles/Vol] 135 mmol/L Normal 134-146 [facility] Comment on above: Performed By: #### C BCA [facility], 3040-3 #### [facility] ([id number]) [address] [place] [address] 60385 Urea nitrogen [Mass/Vol] 13 mg/dL Normal 5-23 [facility] Comment on above: Performed By: #### C JAVIER [facility], 3040-3 #### [facility] ([id number]) [address] [place] [address] ABDOMEN AND PELVIS W CONT on [...] exclude pheochromocytoma. Recommend no further imaging evaluation. [facility] NUNN, et al. Management of Incidental Adrenal Masses: A White Paper of the ACR Incidental Findings Committee. J Am Ag Radiol. 2017 Apr;14(8):9405-0372. THIS REPORT CONTAINS A SIGNIFICANT RESULT AND/OR RECOMMENDATION, WHICH REQUIRES THE ATTENTION OF THE LICENSED CAREGIVER RESPONSIBLE FOR THIS PATIENT. THEREFORE, I SPECIFICALLY DESIGNATED THIS REPORT TO BE TELEPHONED BY THE RADIOLOGY DEPARTMENT. FINDINGS WERE INSTRUCTED TO BE CALLED TO THE CLINICAL SERVICE ON 07/24/2024 4:17 PM Finalized by Daniel Mcallister on 07/24/2024 4:17 PM [facility] 07-24-2024 Lipase [Catalytic activity/Vol] 22 U/L Normal 17-40 [facility] Comment on above: Performed By: #### C JAVIER, [facility], 3040-3 #### [facility] ([id number]) [address] [facility] [place] [address] [facility] 9-10 Nerveson 07-17-2024 [facility] Outside Recordson 07-12-2024 Outside Records [id number] .00[facility] Patient Letteron 07-03-2024 Patient Letter [id number]#1.0 [facility] LUMBAR SPINE 6 OR MORE VWSon 01-14-2022 LUMBAR SPINE 6 OR MORE S [facility] Department of Radiology [address] [place] [id number] ======== Patient Name: RICCARDO HALE : 1975 Sex: M Age: Race: White Pt. Location: Patient Status: D Ordered Date: 01/14/2022 12:15:00 PM Completed Date: 01/14/2022 12:37 PM Requesting Provider: JACKELINE RANDLE Attending Provider: JACKELINE RANDLE Report Copy To: MILAN NAILS Signs & Symptoms: M47.896 Other spondylosis, lumbar region I10 History: [place] Comments: , ap, lat, flex, ex, obliques, [...] radiographically. Electronically signed: Irma York. Transcribed by: [email or web address], User Resident: Electronically Signed by: IRMA YORK @ 01/15/2022 11:40 AM Normal [facility] Comment on above: Order Comment: , [...] 05-13-2025 08:55-0400 Body height 175.26 cm Temi Rolando CHAUDHRY Work Phone: [facility] 05-13-2025 08:55-0400 Body mass index (BMI) [Ratio] 47.8 kg/m2 Temi Rolando CHAUDHRY Work Phone: [facility] 05-13-2025 08:55-0400 Body temperature 97.5 [degF] Temilavern Marshall APRN Work Phone: [facility] 05-13-2025 08:55-0400 Body weight 146.96 kg Temilavern Marshall APRN Work Phone: [facility] 05-13-2025 08:55-0400 Diastolic blood pressure 78 mm[Hg] Temilavern Marshall APRN Work Phone: [facility] 05-13-2025 08:55-0400 Heart rate 69 /min Temi Rolando CHAUDHRY Work Phone: [facility] 05-13-2025 08:55-0400 SaO2% (BldA) [Mass fraction] 95 % Temilavern Marshall APRN Work Phone: [facility] 05-13-2025 08:55-0400 Systolic blood pressure 130 mm[Hg] Temi Marshall APRN Work Phone: [facility] 04-17-2025 09:31-0400 Body height 175.26 cm Temi Marshall APRN Work Phone: [facility] 04-17-2025 09:31-0400 Body mass index (BMI) [Ratio] 49.4 kg/m2 Temi Marshall APRN Work Phone: [facility] 04-17-2025 09:31-0400 Body temperature 98 [degF] Temi Marshall MOCCASIN SEWER Work Phone: [facility] 04-17-2025 09:31-0400 Body weight 151.95 kg Temi Marshall MOCCASIN SEWER Work Phone: [facility] 04-17-2025 09:31-0400 Diastolic blood pressure 84 mm[Hg] Temi Marshall MOCCASIN SEWER Work Phone: [facility] 04-17-2025 09:31-0400 Heart rate 86 /min Temi Hanmelany MOCCASIN SEWER Work Phone: [facility] 04-17-2025 09:31-0400 SaO2% (BldA) [Mass fraction] 94 % Temi Hanmelany MOCCASIN SEWER Work Phone: [facility] 04-17-2025 09:31-0400 Systolic blood pressure 132 mm[Hg] Temi Hanmelany MOCCASIN SEWER Work Phone: [facility] 03-27-2025 08:41-0400 Body height 175.3 cm Beto Reyes MD Work Phone: [facility] 03-27-2025 08:41-0400 Body mass index (BMI) [Ratio] 47.99 kg/m2 Beto Reyes MD Work Phone: [facility] 03-27-2025 08:41-0400 Body weight 147.42 kg Beto Reyes MD Work Phone: [facility] 03-27-2025 08:41-0400 Diastolic blood pressure 78 mm[Hg] Beto Reyes MD Work Phone: [facility] 03-27-2025 08:41-0400 Heart rate 104 /min Beto Reyes MD Work Phone: [facility] 03-27-2025 08:41-0400 Systolic blood pressure 138 mm[Hg] Beto Reyes MD Work Phone: [facility] 02-20-2025 10:21-0400 Body height 175.3 cm Beto Reyes MD Work Phone: [facility] 02-20-2025 10:21-0400 Body mass index (BMI) [Ratio] 48.29 kg/m2 Beto Reyes MD Work Phone: [facility] 02-20-2025 10:21-0400 Body weight 148.33 kg Beto Reyes MD Work Phone: [facility] 02-20-2025 10:21-0400 Diastolic blood pressure 86 mm[Hg] Beto Reyes MD Work Phone: [facility] 02-20-2025 10:21-0400 Heart rate 74 /min Beto Reyes MD Work Phone: [facility] 02-20-2025 10:21-0400 Systolic blood pressure 126 mm[Hg] Beto Reyes MD Work Phone: [facility] 07-19-2024 10:32-0400 Body height 175.3 cm Pascale Lowe PA Work Phone: [facility] 07-19-2024 10:32-0400 Body mass index (BMI) [Ratio] 45.63 kg/m2 Pascale Lowe PA Work Phone: [facility] 07-19-2024 10:32-0400 Body weight 140.16 kg Pascale Lowe PA Work Phone: [facility] 07-19-2024 10:32-0400 Diastolic blood pressure 86 mm[Hg] Pascale Lowe PA Work Phone: [facility] 07-19-2024 10:32-0400 Systolic blood pressure 130 mm[Hg] Pascale Lowe PA Work Phone: [facility] 09-23-2023 10:05-0500 Body height Abbey Robin Other [employer] Other 09-23-2023 10:05-0500 Body mass index (BMI) [Ratio] 44.21 kg/m2 Abbey Nietomond Other [employer] Other 09-23-2023 10:05-0500 Body temperature 98.6 [degF] Abbey Sharda Other [employer] Other 09-23-2023 10:05-0500 Body weight 135.81 kg Abbey Nietomond Other [employer] Other 09-23-2023 10:05-0500 Diastolic blood pressure 82 mm[Hg] Abbey Nietomond Other [employer] Other 09-23-2023 10:05-0500 Respiratory rate 18 /min Abbey Nietomond Other [employer] Other 09-23-2023 10:05-0500 SaO2% (BldA) [Mass fraction] 95 % Abbey Robin Other [employer] Other 09-23-2023 10:05-0500 Systolic blood pressure 152 mm[Hg] Abbey Sharda Other [employer] Other 04-15-2023 10:30-0400 Body height Marisol Zelaya Other [employer] Other 04-15-2023 10:30-0400 Body mass index (BMI) [Ratio] 45.33 kg/m2 Marisol Zelaya Other [employer] Other 04-15-2023 10:30-0400 Body temperature 97.6 [degF] Marisol Zelaya Other [employer] Other 04-15-2023 10:30-0400 Body weight 139.26 kg Marisol Ruelasley Other [employer] Other 04-15-2023 10:30-0400 Diastolic blood pressure 80 mm[Hg] Marisolloc Zelaya Other [employer] Other 04-15-2023 10:30-0400 Respiratory rate 18 /min Marisol Nathalie Other [employer] Other 04-15-2023 10:30-0400 SaO2% (BldA) [Mass fraction] 98 % Marisolloc Zelaya Other [employer] Other 04-15-2023 10:30-0400 Systolic blood pressure 125 mm[Hg] Marisolloc Zelaya Other [employer] Other Encounters Encounter Date Encounter Type Care Provider Facility Start: 06-24-2025 End: 06-24-2025 ambulatory Renetta Terrazas MD Facility:[facility] Start: 05-13-2025 End: 05-13-2025 ambulatory Temi Marshall APRN Work Phone: [facility] Work Phone: Start: 05-13-2025 End: 05-13-2025 Patient encounter procedure Temi Marshall APRN [facility] Work Phone: Start: 05-07-2025 End: 05-08-2025 Eliezer Reyes MD Work Phone: [facility] Comment on above: Rhinitis medicamento sa Start: 04-22-2025 End: 04-22-2025 ambulatory Renetta Terrazas MD Facility:[facility] Start: 04-17-2025 End: 04-17-2025 ambulatory Temi Marshall APRN Work Phone: [facility] Work Phone: Start: 04-17-2025 End: 04-17-2025 Patient encounter procedure Temi Marshall APRN [facility] Work Phone: Start: 04-10-2025 Non-patient / Non-visit Belinda Henson [facility] Work Phone: Start: 03-27-2025 End: 03-27-2025 [...] Start: 03-07-2025 End: 03-07-2025 ambulatory MILAN NAILS Facility:[facility] Start: 02-21-2025 ambulatory [facility] Facility :[facility] Start: 02-20-2025 End: 02-20-2025 Olga Reyes MD Work Phone: [facility] Start: 02-20-2025 End: 02-20-2025 Olga Reyes MD Work Phone: [facility] Start: 02-20-2025 End: 02-20-2025 Office outpatient new 45 minutes Beto Reyes MD Work Phone: [facility] Comment on above: Rhinitis medicamento sa (Primary Dx); Bilateral impacted cerumen Start: 02-20-2025 End: 02-21-2025 ambulatory BETO REYES Not Available Start: 02-06-2025 End: 02-06-2025 Office outpatient new 30 minutes Blair Gan [employer]ER Work Phone: [facility] Comment on above: Carpal tunnel syndro me of left wrist; Carpal tunnel syndrome of right wrist Start: 02-06-2025 End: 02-06-2025 ambulatory BLAIR GAN Not Available Start: 02-06-2025 End: 02-06-2025 Bamboo flowsheet Blair Gan FACTORY LABORER Work Phone: [facility] Start: 02-06-2025 End: 02-06-2025 Bamboo flowsheet Blair Gan FACTORY LABORER Work Phone: [facility] Start: 02-04-2025 ambulatory DO [facility] Faci lity:[facility] Start: 01-03-2025 End: 01-03-2025 Refill Pascale Souza PA Work Phone: [facility] Comment on above: Chronic bilateral lo w [...] FCE Start: 11-15-2024 End: 11-15-2024 ambulatory DO [facility] Facility:[facility] Start: 11-01-2024 End: 11-01-2024 Refill Maurizio Patrick MD Work Phone: [facility] Comment on above: Low back pain, unspe cified back pain laterality, unspecified chronicity, unspecified whether sciatica present Start: 10-02-2024 ambulatory MILAN NAILS Facilit y:[facility] Start: 08-09-2024 End: 08-09-2024 ambulatory DO MILAN NAILS Facility:[facility] Start: 07-24-2024 End: 07-27-2024 Evaluation and management of inpatient MILAN NAILS [facility] Start: 07-19-2024 End: 07-19-2024 Office outpatient visit 25 minutes Pascale BRADSHAW Work Phone: [employer] R[facility] Comment on above: Carpal tunnel syndro me on both sides (Primary Dx); Chronic bilateral low back pain, unspecified whether sciatica present; Lumbar disc herniation Start: 07-19-2024 End: 07-19-2024 ambulatory PASCALE SOUZA Not Available Start: 07-17-2024 End: 07-17-2024 Bamboo flowsheet Maurizio Patrick MD Work Phone: [facility] [employer] ROUTE Start: 07-17-2024 End: 07-17-2024 Bamboo flowsheet Maurizio Patrick MD Work Phone: [employer] [facility] Start: 07-17-2024 End: 07-17-2024 ambulatory MAURIZIO PATRICK Not Available Start: 07-17-2024 End: 07-17-2024 Patient encounter procedure Maurizio Patrick MD Work Phone: [facility] [employer] [facility] Comment on above: Lumbar radiculopathy (Primary Dx); Low back pain, unspecified back pain laterality, unspecified chronicity, unspecified whether sciatica present Start: 07-02-2024 End: 07-02-2024 ambulatory DO MILAN NAILS [facility] Start: 05-24-2024 End: 05-24-2024 Bamboo flowsheet Maurizio Patrick MD Work Phone: [employer] [facility] Start: 05-24-2024 End: 05-24-2024 Bamboo flowsheet Maurizio Patrick MD Work Phone: [facility] R[facility] Start: 05-24-2024 End: 05-24-2024 Patient encounter procedure Maurizio Patrick MD Work Phone: [facility] R[facility] Comment on above: Carpal tunnel syndro me on both sides (Primary Dx) Start: 05-24-2024 End: 05-24-2024 ambulatory MAURIZIO PATRICK Not Available Start: 04-18-2024 End: 04-18-2024 ambulatory PASCALE SOUZA Not Available Start: 09-23-2023 End: 09-23-2023 ambulatory Abbey Robin Other [employer] Other Start: 09-23-2023 Office outpatient vi sit 15 minutes Abbey Robin [facility] Start: 04-15-2023 End: 04-15-2023 ambulatory Marisol Zelaya Other [employer] Other Start: 04-15-2023 Office outpatient ne w [...] GIL . Facility: Start: 03-09-2018 Ambulatory DALLAS LU Facility :[id number] Start: 03-08-2018 [facility] Facility :[id number] Procedures Date Procedure Procedure Detail Performing Clinician Start: 07-17-2024 Nerve conduction catina dies 9-10 studies Maurizio Patrick MD Work Phone: Start: 05-24-2024 Nerve conduction catina dies 11-12 studies Maurizio Patrick MD Work Phone: Plan of Treatment Date Care Activity Detail Author Start: 04-04-2025 End: 04-04-2025 Patient encounter procedure 04/04/2025 11:00 AM EDT Office Visit [facility]ON ALCAZAR [address] [place] [phone] Pascale Souza PA [address] [place] [address] L[facility] [place] Start: 03-27-2025 End: 03-27-2025 Patient encounter procedure 03/27/2025 8:40 AM EDT Office Visit [facility] [address] [facility] [address] [place] [phone] Beto Reyes MD [address] [facility] [address] [place] [address] Arrived [facility] Comment on above: Arrived Start: 02-22-2025 End: 02-22-2025 Patient encounter procedure 02/22/2025 9:00 AM EDT Office Visit [facility] [address] [place] [phone] Tracie Montiel DO [address] [place], [place] [phone] [facility] Start: 02-20-2025 End: 02-20-2025 Patient encounter procedure 02/20/2025 10:30 AM EDT Office Visit [facility] [address] [place] [address] [place] [phone] Beto Reyes MD [address] [place] [address] [place] [address] Arrived [facility] Comment on above: Arrived Start: 02-06-2025 End: 02-06-2025 Patient encounter procedure 02/06/2025 2:30 PM EDT Office Visit [facility] [address] [facility] [place] [address] Blair Gan, FACTORY LABORER [address] [facility] [place] [address] Arrived [facility] Comment on above: Arrived Start: 12-03-2024 End: 12-03-2024 Patient encounter procedure [facility] ALCAZ[facility] Comment on above: Arrived Start: 10-10-2024 End: 10-10-2024 Patient encounter procedure 10/10/2024 1:40 PM EST Office Visit [facility] [place] [address] [place] [phone] Pascale Souza PA [address] [place], [place] [phone] [facility] [place] [address] Start: 07-19-2024 End: 07-19-2024 Patient encounter procedure 07/19/2024 10:40 AM EDT Office Visit [facility] [place] [address] [place] [address] Pascale Souza PA [address] [place], [place] [phone] [facility] [place] [address] Start: 06-19-2024 End: 06-19-2024 Patient encounter procedure 06/19/2024 1:00 PM EDT Office Visit [facility] [place] [address] [place] [address] Pascale Souza PA [address] [place] [address] [address] [address] Start: 06-13-2024 End: 06-13-2024 Patient encounter procedure 06/13/2024 1:00 PM EDT Procedure Visit [facility] [address] [facility] [place] [place] [phone] Maurizio Patrick MD [address] [place] [address] [facility] Start: 05-24-2024 End: 05-24-2024 Patient encounter procedure 05/24/2024 8:30 AM EDT Procedure Visit [facility] [address] [place] [address] Maurizio Patrick MD [address] [place], [place] [id number] Arrived [facility] Comment on above: Arrived EMG 2 Extremities EMG 2 Extremit ies Neurology Routine Carpal tunnel syndrome on both sides Ordered: 05/24/2024 [facility] Healthcare Work Phone: Comment on above: Ordered: 05/24/2024 Patient Education Low back pain in adults [facility] Work Phone: Payers Date Payer Category Payer Medicare [id number] 2023 Medicare (Managed Care) [facility] MEDICARE [id number] 1975 Unknown [id number] 2.16.840.1.705969.3.579.2 .593 1974 Unknown [id number] 2.16.840.1.928849.3.579.2 .593 1974 Unknown [id number] 2.16.840.1.319836.3.579.2 .593 1974 Unknown [id number] 2.16.840.1.696174.3.579.2 .59 1974 Unknown [id number] 2.16.840.1.514637.3.579.2 .59 1974 Unknown [id number] 2.16.840.1.948846.3.579.2 .593 1974 Unknown [id number] 2.16.840.1.543448.3.579.2 .593 1974 Unknown [id number] 2.16.840.1.480128.3.579.2 .593 1974 Unknown [id number] 2.16.840.1.173554.3.579.2 .593 1974 Unknown [id number] 2.16.840.1.999066.3.579.2 .593 1974 Unknown [id number] 2.16.840.1.206794.3.579.2 .593 1974 Unknown [id number] 2.16.840.1.687225.3.579.2 .593 1974 Unknown [id number] 2.16.840.1.186798.3.579.2 .593 1974 Unknown [id number] 2.16.840.1.383215.3.579.2 .1286 1974 Unknown [id number] 2.16.840.1.784841.3.579.2 .1258 1974 Unknown [id number] 2.16.840.1.857179.3.579.2 .1258 1974 Unknown [id number] 2.16.840.1.056568.3.579.2 .1258 1974 Unknown [id number] 2.16.840.1.319146.3.579.2 .1258 1974 Unknown [id number] 2.16.840.1.313043.3.579.2 .1258 1974 Unknown [id number] 2.16.840.1.727552.3.579.2 .1258 1974 Unknown [id number] 2.16.840.1.056310.3.579.2 .1258 1974 Unknown [id number] 2.16.840.1.721659.3.579.2 .1258 1974 Unknown [id number] 2.16.840.1.043879.3.579.2 .1974 Unknown [id number] 2.16.840.1.364276.3.579.2 .1974 Unknown [id number] 2.16.840.1.780647.3.579.2 .1974 Unknown [id number] 2.16.840.1.166969.3.579.2 .1974 Unknown [id number] 2.16.840.1.079542.3.579.2 .1974 Unknown [id number] 2.16.840.1.757246.3.579.2 .1974 Unknown [id number] 2.16.840.1.290978.3.579.2 .1974 Unknown [id number] 2.16.840.1.821780.3.579.2 .718 1974 Unknown [id number] 2.16.840.1.174828.3.579.2 .718 1974 Unknown [id number] 2.16.840.1.437946.3.579.2 .718 1974 Unknown [id number] 2.16.840.1.576229.3.579.2 .718 1960 Medicare [id number] Medicare [id number] 2.16.840.1.873878.19 Private Health Insurance [facility] [id number] Unknown [id number] Social History Date Type Detail Facility Unknown if ever smoked [employer] [facility] Start: 04-11-2024 End: 02-20-2025 Sex Assigned At [employer] Other Start: 04-11-2024 Tobacco smoking stat [facility] Never smoked tobacco [facility] Start: 04-11-2024 Tobacco use and exposure Smokeless tobacco non-user [facility] Start: 04-11-2024 End: 12-03-2024 Alcoholic beverage intake Lifetime non-drinker (finding) [facility] Start: 04-11-2024 End: 02-20-2025 History of Social function [facility] Start: 1975 Sex assigned at Not on file [facility] Start: 02-05-2025 End: 04-17-2025 Tobacco smoking status SDIS Ex-smoker [facility] History of tobacco use Current smoker [facility] History of tobacco use Cigarette Smoker [facility] Start: 02-05-2025 End: 02-20-2025 Alcoholic beverage intake Ex-drinker (finding) [facility] Sex Male (finding) [facility] Start: 1975 Sex Assigned At Male F [facility] Clinical Notes 04-15-2022 to 06-28-2025 Note Date & Type Note Facility 06-28-2025 Note Entered by DYLAN NAILS DO on June 28, 2025 15:43:05 EDT From: MILAN NAILS DO To: [facility] Sent: 06/28/2025 15:43:05 EDT Subject: Medication Management Submitted: Complete:omeprazole (omeprazole 20 mg oral delayed release capsule) Signed by MILAN NAILS DO 06/28/2025 15:43:00 EDT Approved with modifications: omeprazole (omeprazole 20 mg capsule,delayed release) TAKE 1 CAPSULE BY MOUTH DAILY Qty: 30 cap(s) Days Supply: 30 Refills: 5 Substitutions Allowed Route To Pharmacy - [facility] From: [facility] To: MILAN NAILS DO Sent: June 28, 2025 2:05:55 PM CDT Subject: Medication Management Due: June 29, 2025 12:21:25 AM CDT On Hold Pending Signature Drug: omeprazole (omeprazole 20 mg oral delayed release capsule), 1 cap(s) Oral Daily Quantity: 30 cap(s) Days Supply: 0 Refills: 4 Substitutions Allowed Notes from Pharmacy: Dispensed Drug: omeprazole (omeprazole 20 mg oral delayed release capsule), TAKE 1 CAPSULE BY MOUTH DAILY Quantity: 30 cap(s) Days Supply: 30 Refills: 5 Substitutions Allowed Notes from Pharmacy: [facility] 04-17-2025 Evaluation note Diagnosis Onset Date Resolution Chronic bilateral low back pain acute April 17, 2025 9:22am Former smoker acute April 17, 2025 9:22am Migraines acute April 17 9:22am Morbid obesity with BMI of 45.0-49.9, adult acute April 17, 2025 9:22am GERD (gastroesophageal reflux disease) chronic April 17, 2025 9:22am HTN (hypertension) chronic Bernadette 3 0th, 2025 9:22am GRACIE on CPAP chronic April 17 9:22am Morbid obesity with BMI of 45.0-49.9, adult acute May 13 8:54am HTN (hypertension) chronic May 13, 2025 8:54am GRACIE on CPAP chronic May 13, 2025 8:54am [facility] Work Phone: [phone]) 332-555207-09-2025 History of Present illness Narrative* Beto Reyes [...] Morbid (severe) obesity due to excess calories ([facility]) 02/19/2025 Resolved Ambulatory Problems Diagnosis Date Noted [...] and replace cap. 48 g 3 HYDROcodone-acetaminophen (Cambridge) 5-325 MG tablet 1 tablet every 6 [...] hypertonic saline irrigations prn. documented in this encounterHedrick Medical [id number] NoteEntered by MILAN NAILS DO on March 04, 2025 07:38:09 EDT From: MILAN NAILS DO To: [facility] Sent: 03/04/2025 07:38:08 EDT Subject: Medication [...] 30 Refills: 5 Substitutions Allowed Route To 3 day [facility]72 Approved with modifications: SUMAtriptan (sumatriptan 100 mg tablet) TAKE 1 TABLET BY MOUTH DAILY Qty: 12 EA Days Supply: 30 Refills: 5 Substitutions Allowed Route To 3 day [facility]72 Approved with modifications: albuterol (albuterol sulfate HFA 90 mcg/actuation aerosol inhaler) INHALE 2 PUFFS BY MOUTH EVERY 6 HOURS NEEDED Qty: 8.5 gm Days Supply: 25 Refills: 5 Substitutions Allowed Route To 3 day [facility]72 From: [facility] To: MILAN NAILS DO Sent: March [...] Refills: 5 Substitutions Allowed Notes from Pharmacy[id number] Note [id number] Clinical Discharge Summary PERSON INFORMATION Name RICCARDO HALE Age 49 Years 1975 Sex MALE Language Bulgarian PCP MILAN NAILS DO Marital Status Single Med Service Ambulatory Surgery Acct# Arrival 02/21/2025 06:22:54 Visit Reason SURGERY - COLONOSCOPY - SCREENING Acuity LOS 015 21:32 Address: [address] [place] [address] Comment: PROVIDER INFORMATION VITALS INFORMATION Vital Sign [...] every day. cyanocobalamin (Vitam (more content not included)...[id number] History of Present illness Narrative* Beto Reyes [...] 02/19/2025 GERD (gastroesophageal reflux disease) 07/25/2024 Hyperlipidemia ([facility]) 07/25/2024 Hypertension ([facility]) 07/25/2024 Ileus ([facility]) 07/24/2024 Migraine 02/19/2025 Nausea and vomiting 07/25/2024 Morbid (severe) obesity due to excess calories [place] 02/19/2025 Resolved Ambulatory Problems Diagnosis Date Noted [...] Take 180 mg by mouth Daily HYDROcodone-acetaminophen (Cambridge) 5-325 MG tablet 1 tablet every 6 [...] Clean ears at F/U documented in this encounterHedrick Medical CenterQteqmipyls52-39-0758 History of Present illness Narrative* Blair Gan [...] Daily fexofenadine (LEIGH) 180 mg, Daily HYDROcodone-acetaminophen (Cambridge) 5-325 MG tablet 1 tablet, Every 6 [...] Use: Not At Risk (10/24/2018) Received from [employer] [facility] Frequency of Alcohol Consumption: Never Average [...] Strength additional comments: Right 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 documented in this encounterHedrick Medical CenterHagesubrwt87-43-1178 NoteEntered by MILAN NAILS DO on February 04, 2025 10:00:28 EDT From: MILAN NAILS DO To: [facility] Sent: 02/04/2025 10:00:28 EDT Subject: Medication Management Submitted: Complete:DULoxetine (DULoxetine 60 mg oral delayed release capsule) Signed by MILAN NAILS DO 02/04/2025 10:00:00 EDT Approved with modifications: DULoxetine (duloxetine 60 mg capsule,delayed release) TAKE 1 CAPSULE BY MOUTH DAILY Qty: 30 cap(s) Days Supply: 30 Refills: 5 Substitutions Allowed Route To Pharmacy - [facility] From: [facility] To: MILAN NAILS DO Sent: February [...] Refills: 11 Substitutions Allowed Notes from Pharmacy[id number] Note Entered by MILAN NAILS DO on January 03, 2025 13:01:51 EDT From: MILAN NAILS DO To: [facility] Sent: 01/03/2025 13:01:51 EDT Subject: Medication Management Submitted: Complete:omeprazole (omeprazole 20 mg oral delayed release capsule) Signed by MILAN NAILS DO 01/03/2025 13:01:00 EDT Approved with modifications: omeprazole (omeprazole 20 mg capsule,delayed release) TAKE 1 CAPSULE BY MOUTH DAILY Qty: 30 cap(s) Days Supply: 30 Refills: 5 Substitutions Allowed Route To Pharmacy - [facility] From: [facility] To: MILAN NAILS DO Sent: January [...] Refills: 11 Substitutions Allowed Notes from Pharmacy[id number] Telephone encounter Note* Telephone Encounter - Colby Marc MA - 01/03/2025 11:16 AM EDT 12/03/2024 Continue baclofen 10mg PO up to 4 times daily for muscle spasm. Will not allow me to select QID. [facility] Medical CenterWgnlclxeuh99-54-1547 Miscellaneous Notes* Telephone Encounter - Colby Marc MA - 01/03/2025 11:16 AM EDT 12/03/2024 Continue baclofen 10mg PO up to 4 times daily for muscle spasm. Will not allow me to select QID. documented in this encounterHedrick Medical CenterHepvakyklr57-17-7918 Telephone encounter Note* Telephone Encounter - Patrizia Buenrostro - 12/03/2024 12:18 PM EDT Contacted and he noted the FCE is not needed. He said for the update of disability this is not required. I let him know not to hesitate if we'd be needed. [facility] Medical CenterHuogstooxw24-20-1771 Miscellaneous Notes* Telephone Encounter - Patrizia Buenrostro [...] then self-pay @ $505.00. documented in this encounterNOMS Utcillacno08-06-0002 Telephone encounter Note* Telephone Encounter - Patrizia Buenrostro - 11/28/2024 1:22 PM EDT Tried to contact re: referral for FCE. Requested a call back to verify if this would be going thru C-[facility], covered; if not then self-pay @ $505.00. [facility] Medical CenterDokunqdixr66-39-8128 NotePROCEDURE: CT Sinus w/o Contrast COMPARISON: None. [...] Christopher Manjarrez MD 11/16/24 9:26 am Technologist: [facility]02-24-2025 NoteEntered by MILAN NAILS DO on November 12, 2024 07:31:34 EST From: MILAN NAILS DO To: [facility] Sent: 11/12/2024 07:31:34 EST Subject: Medication Management Submitted: Complete:lisinopril (lisinopril 20 mg oral tablet) Signed by MILAN NAILS DO 11/12/2024 07:31:00 EST Approved with modifications: lisinopril (lisinopril 20 mg tablet) TAKE 1 TABLET BY MOUTH DAILY Qty: 90 tab(s) Days Supply: 90 Refills: 1 Substitutions Allowed Route To Pharmacy - [facility] From: [facility] To: MILAN NAILS DO Sent: November 09, 2024 6:21:57 PM PASTING MACHINE OPERATOR Subject: Medication Management Due: November 10, 2024 12:08:02 AM PASTING MACHINE OPERATOR On Hold Pending Signature Drug: lisinopril (lisinopril 20 mg oral tablet), TAKE 1 TABLET BY MOUTH DAILY Quantity: 90 tab(s) Days Supply: 90 Refills: 5 Substitutions Allowed Notes from Pharmacy: Dispensed Drug: lisinopril (lisinopril 20 mg oral tablet), TAKE 1 TABLET BY MOUTH DAILY Quantity: 90 tab(s) Days Supply: 90 Refills: 5 Substitutions Allowed Notes from Pharmacy: [id number] Note Entered by MILAN NAILS DO on October 26, 2024 14:14:29 EST From: MILAN NAILS DO To: [facility] Sent: 10/26/2024 14:14:29 EST Subject: Medication Management Submitted: Complete:fexofenadine (fexofenadine 180 mg oral tablet) Signed by MILAN NAILS DO 10/26/2024 14:14:00 EST Approved with modifications: fexofenadine (fexofenadine 180 mg tablet) TAKE 1 TABLET BY MOUTH EVERY DAY Qty: 30 tab(s) Days Supply: 30 Refills: 5 Substitutions Allowed Route To Pharmacy - [facility] From: [facility] To: MILAN NAILS DO Sent: October 26, 2024 12:55:48 PM PASTING MACHINE OPERATOR Subject: Medication Management Due: October 27, 2024 12:02:15 AM PASTING MACHINE OPERATOR On Hold Pending Signature Drug: fexofenadine (fexofenadine 180 mg oral tablet), TAKE 1 TABLET BY MOUTH DAILY Quantity: 30 tab(s) Days Supply: 30 Refills: 5 Substitutions Allowed Notes from Pharmacy: Dispensed Drug: fexofenadine (fexofenadine 180 mg oral tablet), TAKE 1 TABLET BY MOUTH EVERY DAY Quantity: 30 tab(s) Days Supply: 30 Refills: 5 Substitutions Allowed Notes from Pharmacy[id number] Note Entered by MILAN NAILS DO on August 27, 2024 16:27:03 EST From: MILAN NAILS DO To: [facility] Sent: 08/27/2024 16:27:03 EST Subject: Medication [...] 25 Refills: 5 Substitutions Allowed Route To [facility] Approved with modifications: propranolol (propranolol ER 80 mg capsule,24 hr,extended release) TAKE 1 CAPSULE BY MOUTH DAILY Qty: 30 cap(s) Days Supply: 30 Refills: 5 Substitutions Allowed Route To [facility]72 Approved with modifications: SUMAtriptan (sumatriptan 100 mg tablet) TAKE 1 TABLET BY MOUTH DAILY Qty: 12 EA Days Supply: 12 Refills: 5 Substitutions Allowed Route To [facility] From: [facility] To: MILAN NAILS DO Sent: August 27, 2024 2:39:32 PM PASTING MACHINE OPERATOR Subject: Medication Management Due: August 28, 2024 12:06:32 AM PASTING MACHINE OPERATOR On Hold Pending Signature Drug: [...] Refills: 5 Substitutions Allowed Notes from [facility]acy[id number] History of Present illness Narrative* Danya Ritter MA - 07/17/2024 10:30 AM EDT Images from the original note were not included. Reason for Appointment: EMG Patient: Riccardo Hale : 1975 EMG Computer: [employer] Referring Physician: Dr. Maurizio Patrick EMG: GIOVANNA senior mobile web developer: Danya Ritter CMA Office Location: [place] Reason for EMG: c/o hypersensitivty to the bottoms of the feet. Paresthesia in the legs. R>L. NoHx of DM, not taking blood thinners. Comments: Procedure explained to the patient who expressed understanding. documented in this [facility]09-05-2024 History of Present illness Narrative* Danya Ritter MA - 05/24/2024 8:30 AM EDT Images from the original note were not included. Reason for Appointment: EMG Patient: Riccardo Hale : 1975 EMG Computer: [employer] Referring Physician: Pascale Souza PA-C EMG: ASHLEY senior mobile web developer: Danya Ritter CMA Office Location: [place] Reason for EMG: c/o burning, numbness, tingling in the hands. R>L. Sometimes has a hard time closing his hand. No Hx of DM, not taking blood thinners. Comments: Procedure explained to the patient who expressed understanding. documented in this [facility]01-05-2024 Evaluation note* Encounter Date Diagnosis Assessment Notes [...] 3 days Sep, Bronchitis (ICD-10 - J40) [facility] [facility] 07-28-2023 Evaluation note* Encounter Date Diagnosis [...] is not contagious from itself or drainage. [employer] [facility] 05-30-2023 NoteCONSULTATION CONSULTATION DATE: 02/15/2023 TO: [...] the lower extremities. MEDICATION: Current medication includes Cambridge 5 mg t.i.d. p.r.n. Patient reports it [...] our patients to inform us about any qini-usu-itjdroh medications or herbal remedies/nutritional supplements/alternative remedies. 2. [...] with their primary care provider.[facility] HospitalEiuxwpod75-74-3249 Note CONSULTATION CONSULTATION DATE: 01/06/2023 TO: Dr. [...] our patients to inform us about any kjvc-zly-vphzrby medications or herbal remedies/nutritional supplements/alternative remedies. 2. [...] with their primary care provider.[facility] HospitalGforzwvt07-68-5055 Note CONSULTATION PROCEDURE DATE: 10/06/2022 PREOPERATIVE DIAGNOSIS: [...] followed up in the office.[facility] HospitalPqpsvuzu00-71-7705 NoteCONSULTATION CONSULTATION DATE: 08/26/2022 HISTORY OF PRESENT [...] his muscle relaxer. Our clinic prescribes his Cambridge 5/325 b.i.d. and diclofenac 75 mg b.i.d. [...] All questions were answered today.[facility] HospitalYbnqpauf68-29-9503 NoteCONSULTATION CONSULTATION DATE: 07/22/2022 HISTORY OF PRESENT [...] He current does see Dr. Patrick at [facility] as well. Activities that aggravate his pain are pulling, sitting, walking, lying down and bending. He will alternate heat and ice which he feels does not make a significant difference. Medications include trazodone 50 mg q.h.s., tizanidine 4 mg b.i.d., Lyrica 50 mg t.i.d., diclofenac 75 mg b.i.d. and Cambridge 5/325 b.i.d. He does attend pool therapy at the [facility] 2-3 times a week, which [...] up in the clinic thereafter.[facility] 04-22-2022 NoteCONSULTATION PROCEDURE DATE: 04/22/2022 PRE [...] followed up in the office.[facility] HospitalXdfqvvam22-85-6607 NoteCONSULTATION CONSULTATION DATE: 04/15/2022 This is a [...] mg b.i.d., Lyrica 50 mg b.i.d. and Cambridge 5/325 b.i.d. He is complaining of trouble [...] for his trigger point injections.[facility] Evaluation note* Diagnosis Lumbar radiculopathy- Primary [...] whether sciatica present documented in this encounter [facility] HealthcareEvaluation [facility]* Diagnosis Chronic bilateral low back pain, unspecified whether sciatica present documented in this encounter [facility] HealthcareEvaluation note* Diagnosis Carpal tunnel syndrome of left wrist Carpal tunnel syndrome of right wrist documented in this encounter [facility] HealthcareEvaluation note* Diagnosis Rhinitis medicamentosa- Primary Other diseases of nasal cavity and sinuses Bilateral impacted cerumen Impacted cerumen documented in this encounter [facility] Healthcare[facility] note* Diagnosis Bilateral impacted cerumen- Primary Impacted cerumen Rhinitis medicamentosa Other diseases of nasal cavity and sinuses documented in this encounter [facility] HealthcareEvaluation note* Diagnosis Onset Date Resolution Status Admit Date Morbid obesity with BMI of 45.0-49.9, adult acute April 17, 2025 9:22am HTN (hypertension) chronic March 212024 9:22am [facility] Work Phone: Evaluation note* Diagnosis Rhinitis medicamentosa Other diseases of nasal cavity and sinuses [facility] encounter [facility] Narrative - Reported* Type Description Date Medical History HTN (hypertension) Medical History GERD (gastroesophageal reflux di sease) Medical History Chronic pain Medical History Anxiety Surgical History tonsillectomy and adenoidectomy Surgical History ablasion [employer] Other History general Narrative - Reported* Type Description Date Medical History HTN (hypertension) Medical History GERD (gastroesophageal reflux di sease) Medical History Chronic pain Medical History Anxiety Surgical History tonsillectomy and adenoidectomy Surgical History ablasion Surgical History nerve block Surgical History epidural [employer] [facility] Reason for referral (narrative)No reason for referral information availableC[facility] Work Phone: Summary Purpose Family History No Family History Records Found Relationship Condition Age at Onset Recorded Date/T anahi mother Hypertension Unknown Diabetes mellitus Unknown Heart disease Unknown Advance Directives No Advanced Directives Records Found Advance Directive Response Recorded Date/ Time Advance [...] content) DATE CREATED AUTHOR 03/09/2018 [facility] Healthcare DATE CREATED AUTHOR AUTHOR'S ORGANIZ ATION 01/19/2022 [facility] DATE CREATED AUTHOR AUTHOR'S ORGANIZ ATION 02/25/2023 [facility] DATE CREATED AUTHOR AUTHOR'S ORGANIZ ATION 07/27/2024 [facility] DATE CREATED AUTHOR AUTHOR'S ORGANIZ ATION 03/31/2025 [facility] DATE CREATED AUTHOR AUTHOR'S ORGANIZ ATION 06/29/2025 [facility] DATE CREATED AUTHOR AUTHOR'S ORGANIZ ATION 06/30/2025 [facility] REASON FOR VISIT (unrecogniz ed section and content) Reason Comments Back Pain Numbness Reason Comments Med Refill Reason Onset Date Comments re: referral for FCE 11/28/2024 re: FCE 12/03/2024 Reason Comments Carpal Tunnel Reason Comments Sinusitis Reason Comments Rhinitis medicamentosa 1 month check nos e and clean ears Reason Onset Date Comments Med Refill 05/07/2025 Care Teams (unrecognized sec tion and content) Investigator Welfare Relationship Specialty Start Date End Date Milan Nails MD [address] [place] [address] PCP - General Family Medicine 12/08/23 Investigator Welfare Relationship Specialty Start Date End Date Milan Nails MD [address] [place] [address] PCP - General Family Medicine 12/08/23 Investigator Welfare Relationship Specialty Start Date End Date Milan Nails MD [address] [place] [address] PCP - General Family Medicine 12/08/23 Pascale Souza PA [address] [place] [address] Physician Handle Lathe Operator Neurology 07/19/24 Maurizio Patrick MD [address] [place] [address] Referring Physician Neurology 07/19/24 Investigator Welfare Relationship Specialty Start Date End Date Milan Nails MD [address] [place] [address] PCP - General Family Medicine 12/08/23 Investigator Welfare Relationship Specialty Start Date End Date Milan Nails MD [address] [place] [address] PCP - General Family Medicine 12/08/23 Investigator Welfare Relationship Specialty Start Date End Date Milan Nails MD [address] [place] [facility] [address] PCP - General Family Medicine 12/08/23 Pascale Souza PA [address] [place] [address] Physician Handle Lathe Operator Neurology 07/19/24 Maurizio Patrick MD [address] [place] [address] Referring Physician Neurology 07/19/24 Investigator Welfare Relationship Specialty Start Date End Date Milan Nails MD [address] [place] [facility] [place] [address] PCP - General Family Medicine 12/08/23 aPscale Souza PA [address] [place] [address] Physician Handle Lathe Operator Neurology 07/19/24 Maurizio Patrick MD [address] [place] [address] Referring Physician Neurology 07/19/24 Investigator Welfare Relationship Specialty Start Date End Date Milan Nails MD [address] [place] [address] PCP - General Family Medicine 12/08/23 Pascale Souza PA [address] [place] [address] Physician Handle Lathe Operator Neurology 07/19/24 Maurizio Patrick MD [address] [place] [address] Referring Physician Neurology 07/19/24 Investigator Welfare Relationship Specialty Start Date End Date Milan Nails MD [address] [place] [address] PCP - General Family Medicine 12/08/23 Pascale Souza PA [address] [place] [address] Physician Handle Lathe Operator Neurology 07/19/24 Maurizio Patrick MD [address] [place] [address] Referring Physician Neurology 07/19/24 Investigator Welfare Relationship Specialty Start Date End Date Milan Nails MD [address] [place] [address] PCP - General Family Medicine 12/08/23 Pascale Souza PA [address] [place] [address] Physician Handle Lathe Operator Neurology 07/19/24 Maurizio Patrick MD [address] [place] [address] Referring Physician Neurology 07/19/24 Investigator Welfare Relationship Specialty Start Date End Date Milan Nails MD [address] [place] [address] PCP - General Family Medicine 12/08/23 Pascale Souza PA [address] [place] [address] Physician Handle Lathe Operator Neurology 07/19/24 Maurizio Patrick MD [address] [place] [address] Referring Physician Neurology 07/19/24 Investigator Welfare Relationship Specialty Start Date End Date Milan Nails MD [address] [place] [address] PCP - General Family Medicine 12/08/23 Pascale Souza PA [address] [place] [address] Physician Handle Lathe Operator Neurology 07/19/24 Maurizio Patrick MD [address] [place] [address] Referring Physician Neurology 07/19/24 Investigator Welfare Relationship Specialty Start Date End Date Milan Nails MD [address] [place] [address] PCP - General Family Medicine 12/08/23 Pascale Souza PA [address] [place] [address] Physician Handle Lathe Operator Neurology 07/19/24 Maurizio Patrick MD [address] [place] [address] Referring Physician Neurology 07/19/24 Investigator Welfare Relationship Specialty Start Date End Date Milan Nails MD [address] [place] [address] PCP - General Family Medicine 12/08/23 Pascale Souza PA [address] [place] [address] Physician Handle Lathe Operator Neurology 07/19/24 Maurizio Patrick MD [address] [place] [address] Referring Physician Neurology 07/19/24 Investigator Welfare Relationship Specialty Start Date End Date Milan Nails MD [address] [place] [address] PCP - General Family Medicine 12/08/23 Pascale Souza PA [address] [place] [address] Physician Handle Lathe Operator Neurology 07/19/24 Maurizio Patrick MD [address] [facility] [address] [place] [id number] Referring Physician Neurology 07/19/24 Team Status: Active Member Role Status Dates Temi Marshall APRN FACTORY LABORER-C Primary Care Provider Active Team Status: Active Member Role Status Dates Temi Marshall APRN FACTORY LABORER-C Primary Care Provider Active Start: April 10, 2025 Belinda Negron Attending Provider Active Start: April 10, 2025 Team Status: Inactive Member Role Status Dates Temi Marshall APRN FACTORY LABORER-C Primary Care Provider Active Start: April 17, 2025 End: April 17, 2025 RICHA Williamson Attending Provider Act nakul Start: April 17, 2025 End: April 17, 2025 Investigator Welfare Relationship Specialty Start Date End Date Milan Nails MD PCP - General Family Medicine 12/08/23 Pascale Souza PA [address] [facility] [address] [place] [id number] Physician Handle Lathe Operator Neurology 07/19/24 Maurizio Patrick MD [address] [place] [id number] Referring Physician Neurology 07/19/24 Team Status: Inactive Member Role Status Dates Temi Marshall APRN FACTORY LABORER-C Primary Care Provider Active Start: May 13, 2025 End: May 13, 2025 Temi Rohrbacher , MOCCASIN SEWER FACTORY LABORER-C Attending Provider Act nakul Start: May 13, [...] BE BASED ON THE PRIMARY CLINICAL RECORDS. [employer] [facility]. provides no warranty or guarantee of the accuracy or completeness of information in this document.
--- NOTE | 2025-07-04 10:00 | PM.CN ---
Consult Note: HPI Data of Consult Patient: known to practice within the last 3 years Consult date: 05/02/25 Requesting Physician: Razia Contreras NP Primary Care Provider: EDWIGE TRENT Consult Narrative Reason for consult: f/u Narrative: Riccardo Hale a pleasant 49 year old male presents for evaluation and management of chronic back pain with radiculopathy. Continues to find benefit from medication regimen without side effects. Patient has failed to benefit from greater than 6 weeks PT/provider guided HEP. Pain most significant in left low back radiating into bilateral legs and bilateral feet. historically non surgical for lumbar pain and radiculopathy, NS in 2021 recommended spinal cord stimulation. previously agreeable to scs trial however he had changed his mind, pt again interested at this time. pain today 7/10 sharp aching increasing to 10/10 with all activity, bending, twisting, standing, walking, lifting. pain mildly improved with sleeping. pt recently underwent lumbar MRI with results below. prior emg consistent with chronic s1 radiculopathy. noting mild relief from recent left L4-5 L5-s1 TFESI, pt pleased with 25-30% improvement cc:: CC: Razia Contreras NP Review of Systems ROS Status of ROS 10 or more systems reviewed and unremarkable except as noted in history and below Musculoskeletal Reports: back pain, neck pain and extremity pain PFSH PFSH Medical History Osteoarthritis ?M19.90 - Unspecified osteoarthritis, unspecified site (ICD-10) Numbness and tingling ?R20.0 - Anesthesia of skin (ICD-10) ?R20.2 - Paresthesia of skin (ICD-10) Obesity ?E66.9 - Obesity, unspecified (ICD-10) Acid reflux ?K21.9 - Gastro-esophageal reflux disease without esophagitis (ICD-10) Former smoker ?Z87.891 - Personal history of nicotine dependence (ICD-10) Sleep apnea ?G47.30 - Sleep apnea, unspecified (ICD-10) High cholesterol ?E78.00 - Pure hypercholesterolemia, unspecified (ICD-10) Hypertension ?I10 - Essential (primary) hypertension (ICD-10) Surgical History History of tonsillectomy and adenoidectomy ?Z90.89 - Acquired absence of other organs (ICD-10) Meds Home Medications and Allergies Home Medications ?Medication ?Instructions ?Recorded ?Confirmed ?Type albuterol sulfate 90 mcg/actuation inhalation Q4H PRN shortness of 03/10/23 History aerosol inhaler breath or wheezing duloxetine 30 mg capsule,delayed 30 mg PO QDAY 03/10/23 06/24/25 History release lisinopril 20 mg tablet 20 mg PO QDAY 03/10/23 06/24/25 History omeprazole 20 mg capsule,delayed 20 mg PO QDAY 03/10/23 06/24/25 History release trazodone 50 mg tablet 50 mg PO .hs PRN sleep 03/10/23 06/24/25 History pregabalin 200 mg capsule (Lyrica) 200 mg PO TID 03/01/24 06/24/25 History propranolol 80 mg capsule,24 80 mg PO DAILY 03/01/24 06/24/25 History hr,extended release amitriptyline 25 mg tablet 25 mg PO DAILY 04/24/24 06/24/25 History baclofen 10 mg tablet 10 mg PO DAILY 04/24/24 06/24/25 History sumatriptan succinate 100 mg tablet 100 mg PO PRN migraine headache 04/24/24 History diclofenac sodium 75 mg 75 mg PO BID PRN pain #60 tabs 12/31/24 06/24/25 Rx tablet,delayed release phentermine 37.5 mg tablet mg 04/22/25 History hydrocodone 5 mg-acetaminophen 325 1 tab PO TID PRN pain #75 tabs 05/02/25 06/24/25 Rx mg tablet phentermine 37.5 mg tablet 37.5 mg PO DAILY 06/24/25 06/24/25 History (Adipex-P) Allergies Allergy/AdvReac Type Severity Reaction Status Date / Time No Known Drug Allergies Allergy Verified 04/22/25 10:22 Exam Constitutional Documenting provider has reviewed patient's vital signs: yes Common normals: no apparent distress, oriented x3, healthy appearing, alert and well nourished General appearance: cooperative Orientation/consciousness: Yes awake, Yes oriented to person, Yes oriented to place and Yes oriented to time Other: uses cane HENMT Common normals: normocephalic, hearing grossly normal bilaterally and moist oral mucous membranes Head and scalp: normocephalic Eye Common normals: PERRL Pupil: PERRL Neck & C-Spine Common normals: full ROM General: normal visual inspection Cervical spine: pain with cervical ROM Other: negative sprulings strength 5/5 in BUE sensation intact/equal BUE Chest Common normals: inspection of chest normal Respiratory Common normals: normal respiratory effort, no retractions and no use of accessory muscles Effort & inspection: able to speak in complete sentences and symmetric chest movement Back & Pelvis Common normals: thoracic and lumbar spine normal to inspection Lumbar spine/lower back: normal to inspection, ROM limited, pain with ROM, paraspinal muscle tenderness, paraspinal muscle spasm, straight leg raise positive right and straight leg raise positive left Other: positive facet loading bilat positive jo-ann bilat Muscle strength 4/5 LLE, 5/5 in RLE decreased sensation to left l4,5,S1 Extremity Common normals: normal to inspection and full ROM Neuro Common normals: oriented x3 and CN's II-XII intact bilaterally Sensorium/orientation: alert Gait (neuro): antalgic and assistive device used cane Motor exam: no movement abnormalities noted and strength abnormal Psych Common normals: mental status grossly normal, thought process normal, cooperative, affect normal, speech normal and activity/motor behavior normal Speech: normal speech Thought process: normal thought process Results Imaging Lumbar MRI: Attestation: I have reviewed the pertinent imaging results. Radiologist's impression: At L1-L2: No posterior disc pathology. Facet joint effusions. No neural canal or foraminal stenosis. At L2-L3: Facet joint degenerative changes limit flavum hypertrophy. No posterior disc pathology. Findings are causing mild canal stenosis. At L3-L4: Minimal broad-based disc bulge with ligament flavum hypertrophy and facet joint degenerative changes causing mild canal stenosis. At L4-L5: Minimal broad-based disc bulge is present with facet joint degenerative changes causing no significant canal stenosis and minimal bilateral neural foraminal stenosis. At L5-S1: No posterior disc pathology. Facet joint degenerative change. No neural canal or foraminal stenosis. Incidentally noted is a broad-based disc bulge at T12-L1 partially visualized on today's study causing no significant canal or neural foraminal stenosis. Additional Findings Additional findings: If on a controlled substance or opioids, I have checked an OARRS report on this patient and there are no aberrancies noted in the prescribing history.??If on a controlled substance or opioid a drug screen was completed and reviewed within the last year, and if there has not been a drug screen completed we ordered one today to monitor higher risk, state monitored pain medication use. As part of providing excellent, safe, comprehensive care, the following was completed at our patient's visit: 1. A medication reconciliation and review to ensure accurate knowledge of current/active medications, including asking our patients to inform us about any nupa-sro-snfaomf medications or herbal remedies/nutritional supplements/alternative remedies. 2. A review to specifically ensure our patients have had annual screening for screening for depression, screening for tobacco use, and screening for unhealthy alcohol use. For concerning screenings had a discussion with the patient, provided patient education, and recommended follow-up with primary care provider when appropriate. If patient noted with a risk of falling, they received education on strength, gait, and balance training to prevent future risk of falling. Assessment and Plan Assessment and Plan (1) Lumbar radiculopathy: Assessment and Plan: The patient has had over 3 months of moderate to severe low back and BLE pain with functional impairment and inadequate response to conservative care including NSAIDS (unless there are contraindication such as concurrent blood thinners), multiple oral or topical pain medications, and home exercise program/physical therapy.? Patient has completed >6 weeks of guided home exercise program and/or formal physical therapy program without relief of their symptoms.? The Oswestry Disability Index was completed, and the patient scored a 68%.? The patient noted the following:?? 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 The patient does not report intolerable side effects. The patient is NOT opioid naive and non-pharmacologic and non-opioid treatment has failed to significantly relieve the patient's pain and improve functionality. The patient has a diagnosis that is related to a somatic or visceral pain etiology. ? ?? I reviewed with the patient the potential risks and side effects with the use of? opioid medications including but not limited to respiratory depression,? sedation, and even . Within the last 12 months I have verified the patient has access to naloxone should? these effects occur. The patient was advised to let? their family know they had Naloxone in case they would need to administer? the medication. I advised the patient to avoid the use of any other? sedation substances including alcohol, THC, and benzodiazepines while? taking opioid medications due to the risk of compounding side effects and? detrimental outcomes. within the last 12 months I have reviewed the [employer], pain treatment agreement and urine drug screen.? ?? A drug screen was completed within the last year, and no aberrancies were noted regarding their use of controlled substances. The patient understands they are subject to the terms and conditions of the pain contract that they have signed. ? ?? I have checked an OARRS report on this patient today and there are no aberrancies noted in the prescribing history.? Plan refer to NS for consideration of surgical intervention vs scs trial/implant for lumbar radiculopathy, lumbar stenosis with NC our goal is to proceed with 2 lead spinal cord stimulator trial for chronic lumbar radiculopathy and lumbar stenosis with NC, pt agreeable at this time continue f/u with neurology continue current medications, tolerating well without side effects. risks vs benefits reviewed f/u after NS consultation
== END 2025-07-04 09:31 | disposition home or self-care (01) ==
LOC: PM 09:31
PROVIDERS: PCP Nurse Practitioner Family; Visit Provider Nurse Practitioner
DX: M54.16 Radiculopathy, lumbar region (principal); M48.062 Spinal stenosis, lumbar region with neurogenic claudication; M47.816 Spondylosis without myelopathy or radiculopathy, lumbar region; M54.12 Radiculopathy, cervical region; Z79.891 Long term (current) use of opiate analgesic
CPT/HCPCS: G0463

== ENCOUNTER 2025-09-16 11:50 | Outpatient (OUT) | payer MEDICARE, SELFPAY ==
--- OUTSIDE RECORDS SUMMARY | 2025-09-16 11:53 | XMS_ITS | Clinical Summary ---
Author Organization [facility] Healthcare Address [address] [place] [address] Care Team Providers Care Buckle Sewer Machine Name Role Phone Milan Nails MD Primary Care Provider [phone] Pascale Souza Unavailable Nghia Galeas MD Unavailable [phone] Allergies No known active allergies Medications MedicationSigDispense QuantityRefillsLast FilledStart DateEnd DateStatus HYDROcodone-acetaminophen ([place]) 5-325 MG tablet 1 tablet every 6 (six) hours if needed for severe painActive fexofenadine (Leigh) 180 MG tablet Take 180 mg by mouth DailyActive lisinopril 20 MG tablet Take 20 mg by mouth DailyActive SUMAtriptan (Imitrex) 100 MG tablet Take 100 mg by mouth 1 (one) time if needed for migraineActive pregabalin (Lyrica) 200 MG capsule Indications:Low back pain, unspecified back pain laterality, unspecified chronicity, unspecified whether sciatica presentTake 1 capsule (200 mg) by mouth in the morning and 1 capsule (200 mg) in the evening and 1 capsule(200 mg) before bedtime. Due now. 270 capsule 5Active baclofen (Lioresal) 10 MG tablet Indications:Chronic bilateral low back pain, unspecified whether sciatica presentTAKE 1 TABLET BY MOUTH IN THE MORNING then TAKE 1 TABLET BY MOUTH at noon then TAKE 1 TABLET BY MOUTH IN THE EVENING then TAKE 1 TABLET BY MOUTH BEFORE bedtime 120 tablet 5Active albuterol HFA 90 mcg/act inhaler Inhale 2 puffs every 6 (six) hours if caltqm545Active propranolol LA (Inderal LA) 80 MG 24 hr capsule Take 80 mg by mouth Daily5Active omeprazole (PriLOSEC) [address] capsule Take 20 mg by mouth Daily5Active DULoxetine (Cymbalta) [address] capsule Take 60 mg by mouth Daily5Active ondansetron ODT (Zofran-ODT) 4 MG disintegrating tablet 4 mg4Active diclofenac (Voltaren) 75 MG EC tablet Take 75 mg by mouth 2 (two) times a day as uackor095Active fluticasone (Flonase) 50 MCG/ACT nasal spray Indications:Rhinitis medicamentosaAdminister 2 sprays into each nostril Daily Shake gently. Before first use, prime pump. After use, clean tip and replace cap. 48 g ctive Active Problems ProblemNoted DateDiagnosed DateArthropathy of left hip02/19/2025hronic obstructive pulmonary disease, /03/2025 Overview (02/19/2025): Documented on 08/24/2023 Ztohoqoa90/03/2025Morbid (severe) obesity due to excess gvonqljo12/03/2025 Overview (02/19/2025): Documented on 04/18/2024 by MILAN NAILS GERD (gastroesophageal reflux disease)07/25/20245666Jsmwlazdzujkdm59/06/2024 Bupgzhjxoiht45/06/2024Nausea and efnxvkts34/06/6017Molrn49/05/2024Sensory ataxia 04/11/2024ack pain04/11/2024 Overview (05/21/2024): intractable low back pain that is constant in nature. He cannot stand or sit for long periods of time and is having trouble with his ADLs. The patient has failed steroids and conservative therapy. Nosurgical intervention was warranted by Dr. Carranza and Dr. Bowen. He is following with pain management.MRI of his lumbar spine 12/2018 revealed evidence of degenerative facet arthropathy and disc herniations at L3-4 and L4-5. He has received epidural injections through pain management and also has trialed nerve block trial with no significant benefit. He continues with back pain. He notes that he wasevaluated [facility] a [facility] at [facility] and was not a surgical candidate. He is unsure of the benefit of Zanaflex. He remains on baclofen. Lumbosacral ztlptmvsvzceq33/24/2024 Overview (05/21/2024): EMG of the bilateral lower extremities 12/2018 revealed S1 radiculopathies more pronounced on the left. He failed gabapentin and is now being treated with Lyrica. EMG of the bilateral lower extremities 05/26/21 revealed bilateral S1 radiculopathies, left greater than right, unchanged from 2019. He continues to follow with pain management in [place] and had ablation with no significant benefit. He has quit medical marijuana. Iuigyknbbb30/24/2024DD (degenerative disc disease), jbtutv2604/11/2024Lumbar disc nnnisyyycj46/24/2024Lumbar raukjniviiuqg96/24/2024Leg thjtmcce11/24/2024 Family History Medical HistoryRelationNameCommentsArthritisMotherWendyCOPDMotherWendyDepression MotherWendyHypertensionMotherWendyNeuropathyMotherWendyRheum arthritisMother WendySleep apneaMotherWendyCOPDOtherDiabetesOtherHypertensionOtherRelationName StatusCommentsMotherWendyOther Social History Tobacco UseTypesPacks/DayYears UsedDateSmoking Tobacco: FormerCigarettes Tobacco Cessation:Counseling Given: Not Answered Alcohol UseStandard Drinks/WeekCommentsNot Currently0 (1 standard drink = 0.6 oz pure alcohol)Sex and Gender InformationValueDate RecordedSex Assigned at Not on fileLegal SdoLsda7512/01/2022 8:24 PM EDTGender IdentityNot on fileSexual OrientationNot on file Last Filed Vital Signs Vital SignReadingTime TakenCommentsBlood Muwtdpzk067/7807 8:41 AM EDT Uxiop34611/09/2025 8:41 AM EDTTemperature--Respiratory Rate--Oxygen Saturation 93%04/18/2024 2:35 PM EDTInhaled Oxygen Concentration--Helqtc509 kg (325 lb) 03/27/2025 8:41 AM YCZNunykg736.3 cm (5' 9 )03/27/2025 8:41 AM EDTBody Mass Index47.9903/27/2025 8:41 AM EDT Plan of Treatment Not on file Insurance Care Teams Team MemberRelationshipSpecialtyStart DateEnd [facility] Milan Nails MD [address] [place] [address] PCP - GeneralFamily Medicine12/08/23 Pascale Souza PA [address] [place] [address] Physician WyphybzbvDjetzurxo48/31/24 Nghia Galeas MD [address] [place] [address] [place] [address] Referring GhdecwjhaZgxuaybdp71/31/24
--- OUTSIDE RECORDS SUMMARY | 2025-09-16 11:53 | XMS_ITS | Clinical Summary ---
Author Organization [facility] Address [address] [place] [address] Care Team Providers Care Cardiothoracic Surgeon Name Role Phone Unavailable Primary Care Provider Unavailabl e Encounters DateTypeDepartmentCare VdgzBavblkebfmu86/22/2025 12:05 AM EDT - 07/10/2025 11:59 PM EDTHospital Encounter [facility] Radiology External Films [address] [place] [address] Discharge Disposition: Home or Self Care ()07/10/2025 - 07/10/2025 12:04 AM EDTHospital Encounter [facility] Radiology External Films [address] [place] [address] Discharge Disposition: Home or Self Care ()from Last 3 Months Social History Tobacco UseTypesPacks/DayYears UsedDateSmoking Tobacco: Never AssessedUT Safety & EnvironmentAnswerDate RecordedFear of Current or Ex-PartnerNot on file 11/10/2023Emotionally AbusedNot on file4Physically AbusedNot on file 11/10/2023Sexually AbusedNot on file4Physically or Sexually AbusedNot on file11/10/2023Sex and Gender InformationValueDate RecordedSex Assigned at YhthtCqvb86/24/2025 4:58 AM EDTLegal VgaPvkb7503/17/2022 10:43 PM EDTGender IdentityChoose not to wcavdiov09/24/2025 4:58 AM EDTSexual OrientationChoose not to wdwxzawi06/24/2025 4:58 AM EDT Last Filed Vital Signs Vital SignReadingTime TakenCommentsBlood Gzcehclq871/9504 10:47 AM EDT Gflsp5306/28/2022 10:47 AM MEUPfvvlbpiyza84 ??C (98.6 ??F)01/14/2022 10:47 AM EDTRespiratory Rate--Oxygen Saturation--Inhaled Oxygen Concentration--Rwklgi047 kg (309 lb)01/14/2022 10:46 AM FHJSikxhi749.3 cm (5' 9 )01/14/2022 10:46 AM EDT Body Mass Index45.63001/14/2022 10:46 AM EDT Plan of Treatment Health MaintenanceDue DateLast DoneCommentsCT Umtzaofgvmlf1974FIT-DNA 1974FIT1974FOBT1974Medicare Annual Wellness (AWV)1974 Djyqkumngnvlp1974Depression Kqzwwrvdt76/11/1986Hepatitis B Vaccines (1 of 3 - 19+ 3-dose series)1993Pneumococcal Vaccine: Pediatrics (0 to 5 Years) and At-Risk Patients (6 to 64 Years) (1 of 2 - PCV)1993Zoster Vaccines (1 of 2)4COVID-19 Vaccine (4 - 2024- season), 01/13/2021, 12/19/2020Influenza Vaccine (#1), 07/02/2019, 07/03/2015dult Ztfukpb14olonoscopy/01/2025 Colorectal Cancer Cjgujshuu82/05/2035HIB VaccinesAged OutNo longer eligible based on patient's age to complete this topicHPV VaccinesAged OutNo longer eligible based on patient's age to complete this topicIPV VaccinesAged OutNo longer eligible based on patient's age to complete this topicMeningococcal B VaccineAged OutNo longer eligible based on patient's age to complete this topic Meningococcal VaccineAged OutNo longer eligible based on patient's age to complete this topicRotavirus VaccinesAged OutNo longer eligible based on patient's age to complete this topic Procedures Procedure NamePriorityDate/TimeAssociated DiagnosisCommentsXR TRANSFER OF OUTSIDE BANWRBesblie41/22/2025 12:05 AM EDT MR TRANSFER OF OUTSIDE LNMDNJweuejx33/22/2025 12:00 AM EDT from Last 3 Months Results * XR transfer of outside films (07/10/2025 12:05 AM EDT)Specimen (Source) Anatomical Location / LateralityCollection Method / VolumeCollection Time Received Time Narrative IMAGING - 07/10/2025 11:18 AM EDT This order has been auto-finalized and does not contain a result. Authorizing ProviderResult TypeResult StatusAlaWills Eye Hospital MDIMG XR PROCEDURES Final ResultPerforming OrganizationAddressCity/State/ZIP CodePhone Number IMAGING * MR transfer of outside films (07/10/2025 12:00 AM EDT)Specimen (Source) Anatomical Location / LateralityCollection Method / VolumeCollection Time Received Time Narrative IMAGING - 07/10/2025 11:18 AM EDT This order has been auto-finalized and does not contain a result. Authorizing ProviderResult TypeResult StatusAlastLaird Hospital MDG MRI PROCEDURES Final ResultPerforming OrganizationAddressCity/State/ZIP CodePhone Number IMAGING from Last 3 Months Insurance
--- OUTSIDE RECORDS SUMMARY | 2025-09-16 11:53 | XMS_ITS | Clinical Summary ---
Author Organization [employer] Address [id number] [address] [place] [address] Care Team Providers Care Enrichment Specialist Name Role Phone Kenney JaramilloNicolas CHAUDHRY-MERCHANDISE PLANNER Primary Care Provider + Allergies No known active allergies Medications MedicationSigDispense QuantityRefillsLast FilledStart DateEnd DateStatus lisinopril (PRINIVIL,ZESTRIL) 20 mg tablet Take 20 mg by mouth daily.Active omeprazole (PriLOSEC) 40 mg capsule Take 40 mg by mouth daily.Active DULoxetine (CYMBALTA) 60 mg capsule Take 90 mg by mouth daily.Active meloxicam (MOBIC) 15 mg tablet Take 15 mg by mouth daily.Active tiZANidine (ZANAFLEX) 4 mg tablet Take 4 mg by mouth 2 (two) times a day.Active HYDROcodone-acetaminophen (NORCO) 5-325 mg per tablet Take 1 tablet by mouth every 6 (six) hours as needed for pain. Max Daily Amount: 4 tabletsActive fexofenadine (ZACKERY) 180 mg tablet Take 1 tablet (180 mg total) by mouth in the morning.Active pregabalin (LYRICA) 200 mg capsule Take 1 capsule (200 mg total) by mouth 3 (three) times a day.07/17/2024ctive propranoloL (INDERAL) 80 mg tablet Take 1 tablet (80 mg total) by mouth in the morning and 1 tablet (80 mg total) before bedtime.Active SUMAtriptan (IMITREX) 100 mg tablet Take 1 tablet (100 mg total) by mouth once as needed.Active albuterol (PROVENTIL HFA;VENTOLIN HFA) 90 mcg/actuation inhaler Inhale 2 puffs every 6 (six) hours as needed for wheezing.Active ketoconazole (NIZORAL) 2 % shampoo Indications:Dandruff in adultApply 1 Application topically 2 (two) times a week. Apply to damp skin, lather, leave on 5 minutes,and rinse 120 mL 5Active phentermine (ADIPEX-P) 37.5 mg tablet Indications:Class 3 severe obesity due to excess calories without serious comorbidity with body mass index (BMI) of 45.0 to 49.9 in adult ([facility])Take 1 tablet (37.5 mg total) by mouth every morning before breakfast. 30 tablet 5Active phentermine (ADIPEX-P) 37.5 mg tablet Take 1 tablet (37.5 mg total) by mouth every morning before breakfast.08/20/2025 Discontinued(Reorder) Active Problems ProblemNoted DateDiagnosed DateNausea and qzyievur00/06/2024GERD (gastroesophageal reflux disease)07/25/20246170Bkwlyvbwnshraf51/06/2024Hypertension 07/25/2024Small bowel kukzxmgkxuo36/06/6686Bfute33/05/2024DD (degenerative disc disease), fpvhas5504/11/20245524Zfwxdfletf12/24/2024 Encounters DateTypeDepartmentCare JpjjZummarnltwf90/02/2025 2:40 PM ESTTelemedicine [facility] [address] [place] [address] Floyd Jaramillo, RICHA-MERCHANDISE PLANNER Class 3 severe obesity due to excess calories without serious comorbidity with body mass index (BMI) of 45.0 to 49.9 in adult ([facility]) (Primary Dx)08/01/2025 11:00 AM ESTOffice Visit [facility] [address] [place] [address] Floyd Jaramillo, CLINICAL EXERCISE PHYSIOLOGIST-MERCHANDISE PLANNER Medicare annual wellness visit, subsequent (Primary Dx); Primary hypertension; Class 3 severe obesity due to excess calories without serious comorbidity with body mass index (BMI) of 45.0 to 49.9 in adult ([facility])08/01/2025Travel 07/23/2025Results Follow-Up [facility] [address] [place] [address] Floyd Jaramillo APRN-CNP CBC without diff, Comprehensive metabolic panel, Lipid profile, Additional followed-up results: 10:20 AM ESTOffice Visit [facility] [address] [place] [address] Floyd Jaramillo, TRINA Primary hypertension (Primary Dx); Mixed hyperlipidemia; Chronic pain syndrome under treatment with controlled substance agreement; Blood tests for routine general physical examination; Class 3 severe obesity due to excess calories without serious comorbidity with body mass index (BMI) of 45.0 to 49.9 in adult ([facility]); Degeneration of intervertebral disc of lumbar region with discogenic back pain and lower extremity pain; Neuropathy; Obstructive sleep apnea; Dandruff in adult07/22/2025Travelfrom Last 3 Months Social History Tobacco UseTypesPacks/DayYears UsedDateSmoking Tobacco: FormerSmokeless Tobacco: NeverAlcohol UseStandard Drinks/WeekCommentsNo0 (1 standard drink = 0.6 oz pure alcohol)[facility] UtilitiesAnswerDate RecordedIn the past 12 months has the [employer], gas, oil, or water [employer] threatened to shut off services in your home?No 4AUDIT-CAnswerDate RecordedFrequency of Alcohol ConsumptionNever 10/24/2018Average Number of DrinksNot on file10/24/2018Frequency of Binge DrinkingNot on file10/24/2018PHQ-2AnswerDate RecordedTotal Dwzpc84010/01/2024 PRAPARE - TransportationAnswerDate RecordedIn the past 12 months, has lack of transportation kept you from medical appointments or from getting medications?No 07/24/2024In the past 12 months, has lack of transportation kept you from meetings, work, or from getting things needed for daily living?No07/24/2024 Housing InstabilityAnswerDate RecordedAre you worried or concerned that in the next two months you may not have stable housing that you own, rent or stay in as a part of a household?No4ChildcareAnswerDate RecordedChildcareUnknown 02/28/2019EmploymentAnswerDate JjkadmnaXfawpecjjkEeqjczp89/12/2019Hunger ScreeningAnswerDate RecordedWithin the past 12 months we worried whether our food would run out before we got money to buy more.Never True08/01/2025Within the past 12 months the food we bought just didn't last and we didn't have money to get more.Never True08/01/2025Purpose - LifeAnswerDate RecordedPurpose and direction in aoffCqzyxwr07/11/2021ex and Gender InformationValueDate Recorded Sex Assigned at BirthNot on fileLegal UeqJctv4804/24/2015 12:11 PM EDTGender IdentityNot on fileSexual OrientationNot on file Last Filed Vital Signs Vital SignReadingTime TakenCommentsBlood Fbgbixfu700/8208/20/2025 3:09 PM EST Usskz072308/20/2025 3:09 PM AFFCmhnudvtpth82.4 ??C (97.6 ??F)08/01/2025 11:02 AM ESTRespiratory Cwpg793410/01/2024 11:02 AM ESTOxygen Cimskbbdcs40%08/01/2025 11:02 AM ESTInhaled Oxygen Concentration--Rvbjnn723 kg (302 lb)08/20/2025 3:09 PM EST Arqjow418.3 cm (5' 9.02 )08/01/2025 11:02 AM ESTBody Mass Index44.5808/01/2025 11:02 AM EST Plan of Treatment DateTypeDepartmentCare Team (Latest Contact Info)Xrtkvlugnnk17/30/2025 8:00 AM ESTOffice Visit [facility] [address] [place] [address] Floyd Jaramillo, CLINICAL EXERCISE PHYSIOLOGIST-MERCHANDISE PLANNER [address] [place], [place] [id number] 10/28/2025 3:00 PM ESTOffice Visit [facility] [address] [place] [address] Tea Gonzalez MD [address] [facility] [address] [place] [address] Health MaintenanceDue DateLast DoneCommentsAdult BMI Follow Up Plan1992 Zoster (Shingles) Vaccine (1 of 2)2024OVID-19 Vaccine ( - season), 01/13/2021, 12/19/2020Influenza Huzakck3105/20/2025 07/16/2021, 07/02/2019, 07/03/2015Depression Beabaopyh24 Tobacco Bqqkzbqjz19dult BMI Govjxgnrk57 DTaP,Tdap and Td Vaccines (2 - Td or Tdap) Goals GoalPatient Goal TypeAssociated ProblemsRecent ProgressPatient-Stated?Author Return home Bebe Paz MSW Note: Evaluation of progress towards goal: In progress: Return home when able to DC. Medical Devices Not on file Procedures Procedure NamePriorityDate/TimeAssociated DiagnosisCommentsPROSTATIC SPECIFIC ANTIGEN JFUXRBIrkntll76/03/2025 10:59 AM EST Blood tests for routine general physical examination THYROID PROFILE INCLUDES TSH XV4Ygsxjnx34/03/2025 10:59 AM EST Blood tests for routine general physical examination LIPID QBYFCENUwxzrhu73/03/2025 10:59 AM EST Blood tests for routine general physical examination COMPREHENSIVE METABOLIC LZEEPCkrgedx07/03/2025 10:59 AM EST Blood tests for routine general physical examination CBC (NO DIFF)Xsgtfuz5707/22/2025 10:59 AM EST Blood tests for routine general physical examination from Last 3 Months Results * Thyroid profile includes TSH FT4 (07/22/2025 10:59 AM EST)ComponentValueRef RangeTest MethodAnalysis TimePerformed AtPathologist SignatureFREE T41.090.61 - 1.60 ng/dL07/22/2025 6:31 PM [facility] LABORATORYTSH1.01 0.49 - 4.67 uIU/mL07/22/2025 6:31 PM [facility] Specimen (Source)Anatomical Location / LateralityCollection Method / Volume Collection TimeReceived TimeBloodVenous blood / Nyfaczz0907/22/2025 10:59 AM EST 07/22/2025 11:00 AM EST Narrative Authorizing ProviderResult TypeResult StatusKyle D Krotzer CLINICAL EXERCISE PHYSIOLOGIST-CNPLAB BLOOD ORDERABLESFinal ResultPerforming OrganizationAddressCity/State/ZIP CodePhone Number [facility] [place] [address], * Prostatic specific antigen screen (07/22/2025 10:59 AM EST)ComponentValueRef RangeTest MethodAnalysis TimePerformed AtPathologist SignaturePROSTATIC SPEC ANT1.430.00 - 4.00 ng/mL07/22/2025 6:22 PM [facility] LABORATORYComment: The method used for this test is Payal Alesha DXI chemiluminescent immunoassay. Values obtained by different assay methods cannot be used interchangeably. Specimen (Source)Anatomical Location / LateralityCollection Method / Volume Collection TimeReceived TimeBloodVenous blood / Dbacfdc7007/22/2025 10:59 AM EST 07/22/2025 11:00 AM EST Narrative Authorizing ProviderResult TypeResult StatusKyle D Krotzer CLINICAL EXERCISE PHYSIOLOGIST-CNPLAB BLOOD ORDERABLESFinal ResultPerforming OrganizationAddressCity/State/ZIP CodePhone Number [facility] [address] [place] [address], * CBC without diff (07/22/2025 10:59 AM EST)ComponentValueRef RangeTest Method Analysis TimePerformed AtPathologist SignatureWBC7.54 - 11 x10E9/L109/21/2024 6:06 PM [facility] LABORATORYRBC Count5.144.1 - 5.7 X10E12/L 07/22/2025 6:06 PM [facility] XBRLFWIEDKRsssisyahe64.513 - 17 g/dL07/22/2025 6:06 PM [facility] CIZBWQMQOASeujvmcloa73.839 - 50 %07/22/2025 6:06 PM [facility] YYQEIXALFLXKM4756 - 100 fL07/22/2025 6:06 PM [facility] HKLCLMFCTSDYG01.227 - 34 pg 07/22/2025 6:06 PM [facility] DSUPDXCQDVUXZX71.132 - 36 g/dL 07/22/2025 6:06 PM [facility] BCSMRCSPIMOIW27.311.5 - 15 % 07/22/2025 6:06 PM [facility] LABORATORYPlatelet Rmhnr570667 - 450 X10E9/L109/21/2024 6:06 PM [facility] LABORATORYMPV9.07 - 12 fL07/22/2025 6:06 PM [facility] LABORATORYSpecimen (Source)Anatomical Location / LateralityCollection Method / VolumeCollection TimeReceived TimeBloodVenous blood / Rwpkenq5107/22/2025 10:59 AM EST07/22/2025 11:00 AM EST Narrative Authorizing ProviderResult TypeResult StatusKyle D Ella CLINICAL EXERCISE PHYSIOLOGIST-CNPLAB BLOOD ORDERABLESFinal ResultPerforming OrganizationAddressCity/State/ZIP CodePhone Number [facility] [address] [place] [phone], * (ABNORMAL) Lipid profile (07/22/2025 10:59 AM EST)ComponentValueRef RangeTest MethodAnalysis TimePerformed AtPathologist NiwtmqekeEKMWYPBGLUK885856 - 200 mg/dL07/22/2025 6:18 PM [facility] ZHRZIVEHQPOHQFRZESQABK470 (H)27 - 150 mg/dL07/22/2025 6:18 PM [facility] LABORATORYHDL TRLEZOLZORV16(L)>39 mg/dL07/22/2025 6:18 PM [facility] LABORATORYComment: HDL <40 mg/dL - High Risk HDL > or = 40mg/dL- Desirable HDL >60 mg/dL - Negative Risk LDL (CALC)107<130 mg/dL07/22/2025 6:18 PM [facility] Comment: LDL <100 mg/dL - Desirable LDL >160 mg/dL - High Risk CHOLESTEROL:HDL5.3(H)1.0 - 5.011 6:18 PM [facility] LABORATORYVERY LOW KYQGLEOPUCO34(H)0 - 30 mg/dL07/22/2025 6:18 PM [facility] LABORATORYSpecimen (Source)Anatomical Location / Laterality Collection Method / VolumeCollection TimeReceived TimeBloodVenous blood / Vslrbcm1507/22/2025 10:59 AM EST07/22/2025 11:00 AM EST Narrative Authorizing ProviderResult TypeResult StatusKywendy Jaramillo CLINICAL EXERCISE PHYSIOLOGIST-CNPLAB BLOOD ORDERABLESFinal ResultPerforming OrganizationAddressCity/State/ZIP CodePhone Number [facility] [address] [place] [phone], * Comprehensive metabolic panel (07/22/2025 10:59 AM EST)ComponentValueRef Range Test MethodAnalysis TimePerformed AtPathologist ChaqpkqonQJKHPR786949 - 146 mmol/L109/21/2024 6:18 PM [facility] LABORATORYPOTASSIUM4.13.5 - 5.0 mmol/L109/21/2024 6:18 PM [facility] LABORATORYCHLORIDE 42868 - 109 mmol/L109/21/2024 6:18 PM [facility] [place] RJGLPIF7243 - 32 mmol/L109/21/2024 6:18 PM [facility] LABORATORYANION SXM088 - 15 mmol/L109/21/2024 6:18 PM [facility] LABORATORYBLOOD UREA SWCRIHWM492 - 23 mg/dL07/22/2025 6:18 PM [facility] LABORATORYCREATININE0.840.60 - 1.30 mg/dL07/22/2025 6:18 PM [facility] LABORATORYComment:METHOD TRACEABLE TO IDIN YVVKJOCFSAGGOGL5762 - 99 mg/dL07/22/2025 6:18 PM [facility] LABORATORYCALCIUM9.48.5 - 10.5 mg/dL07/22/2025 6:18 PM [facility] LAB[facility]ORYTOTAL PROTEIN6.76.0 - 8.0 g/dL07/22/2025 6:18 PM [facility] LABORATORYALBUMIN4.43.2 - 5.3 g/dL07/22/2025 6:18 PM [facility] LABORATORYALKALINE CXJIVMMRMMC5869 - 130 U/L 07/22/2025 6:18 PM [facility] NHHZRCPIKGZGL33<=41 U/L 07/22/2025 6:18 PM [facility] HKVJMQIKHHCGR02<=40 U/L 07/22/2025 6:18 PM [facility] LABORATORYBILIRUBIN,TOTAL0.60.3 - 1.2 mg/dL07/22/2025 6:18 PM [facility]ORYEGFR Non- Race Dependent>90>=60 ml/min/1.73sq.m109/21/2024 6:18 PM [facility] LABORATORYComment: Reported eGFR is based on the CKD-EPI 2020 equation that does not use a race coefficient. Specimen (Source)Anatomical Location / LateralityCollection Method / Volume Collection TimeReceived TimeBloodVenous blood / Cbsjztn9307/22/2025 10:59 AM EST 07/22/2025 11:00 AM EST Narrative Authorizing ProviderResult TypeResult StatusKywendy Jaramillo CLINICAL EXERCISE PHYSIOLOGIST-CNPLAB BLOOD ORDERABLESFinal ResultPerforming OrganizationAddressCity/State/ZIP CodePhone Number [facility] [address] [place] [address], [place] [phone] from Last 3 Months Insurance Advance Directives * Full Code (Latest Code Status on File) Date ActivatedDate WqgvogumyyuGujmljkp86/5/2024 5:22 PM07/27/2024 1:04 PM Care Teams Team MemberRelationshipSpecialtyStart DateEnd Date Floyd Jaramillo, CLINICAL EXERCISE PHYSIOLOGIST-MERCHANDISE PLANNER [address] [place] [address] PCP - GeneralInternal Kistybwp45/3/25
--- OUTSIDE RECORDS SUMMARY | 2025-09-16 11:57 | XMS_ITS | CCD ---
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 Role Phone KIRNUS, DALLAS Unavailable [...] MESSI Attending Tiffany vailable GIL ., DR ULCY Maurice Attending Unavailable [...] JAQUI, DR SOLO Primary Care Unavailable Marisol Zelaya Unavailable Abbey Robin Unavailable Milan Nails MD Primary Care Provider Pascale Masterson Unavailable Maurizio Patrcik MD Unavailable MILAN NAILS Primary Care Unavailable ZAHRA SAL Attending Unavailable TRACIE MATHIS Consulting Unavailable LORENA WOLFF Admitting Unavailable Maurizio Patrick MD Unavailable Unavailable Maurizio Patrick MD Unavailable PASCALE SOUZA Attending Unavailable BLAIR GAN Attending Unavailable PASCALE SOUZA Attending Unavailable MAURIZIO PATRICK Attending Unavailable BETO REYES Attending Unavailable MILAN NAILS Referring Unavailable BETO REYES Attending Unavailable MAURIZIO PATRICK Attending Unavailable PASCALE SOUZA Attending Unavailable Temi Marshall APRN Primary Care Provider Belinda Negron Attending Provider Unavailable Temi Marshall APRN Attending Provider [phone] Milan Nails MD Primary Care Provider Mk RICHARDS, Renetta Marlow Attending Unavailable Mk RICHARDS, Renetta Marlow Attending Unavailable LESLEY, BIANCA Referring Unavailable LESLEY, BIANCA Referring Unavailable Rohrbacher Temi CHAUDHRY Primary Care Provider MAXIMO STOUT Attending Unavailable MAXIMO STOUT Primary Care Unavailable Maximo Pradhan Primary Care Provider HOUSE, DO MILAN P Attending Unavailable HOUSE, MILAN P Primary Care Unavailable HOUSE, DO MILAN P Attending Unavailable HOUSE, MILAN P Primary Care Unavailable HOUSE, DO MILAN P Attending Unavailable HOUSE, MILAN P Primary Care Unavailable Gonzales, Martinez Attending Unavailable HOUSE, MILAN P Primary Care Unavailable Gonzales, Martinez Admitting Unavailable Gonzales, Martinez Attending Unavailable HOUSE, MILAN P Primary Care Unavailable HOUSE, MILAN P Primary Care Unavailable HOUSE, DO MILAN P Admitting Unavailable HOUSE, DO MILAN P Attending Unavailable HOUSE, MILAN P Primary Care Unavailable HOUSE, DO MILAN P Attending Unavailable HOUSE, MILAN P Primary Care Unavailable Allergies Allergy ClassificationReported Allergen(s)Allergy TypeDate of OnsetReaction(s) Facility (1 source)ALLERGIES NOT ON FILE; Translations: [ALLERGIES NOT ON FILE]Propensity to adverse reactions (disorder)[facility] Rep[facility] Medications Current Medications MedicationDrug Class(es)DatesSig (Normalized)Sig (Original)acetaminophen 325 mg / HYDROcodone bitartrate 5 mg oral tablet (20 sources)Opioid AgonistStart: 97-15-8084oakx 1 tablet by mouth three times daily as neededHydrocodone-Acetaminophen 5-325 mg tablet Active 1 TAB PO Three times daily as needed 0 April 17, 2025 12:00am Complies with drug therapytake 1 tablet by mouth every six hours as needed for painHYDROcodone-acetaminophen (NORCO) 5-325 mg per tablet Take 1 tablet by mouth every 6 (six) hours asneeded for pain. Max Daily Amount: 4 tablets Activetake 1 tablet by mouth every six hours as neededNorco 5-325 MG 1 tablet as needed Orally every 6 hrs Active [id number] 200 actuat albuterol 0.09 mg/actuat metered dose inhaler (16 sources)beta2-Adrenergic AgonistStart: 05-94-0165Uhhpqrbaj Sulfate 90 mcg/actuation HFA aerosol inhaler Active INHALATION April 17, 2025 12:00am Com plies with drug therapyStart: 32-07-5714rpll 2 puff(s) by inhalation every six hoursalbuterol HFA 90 mcg/act inhaler Inhale 2 puffs every 6 (six) hours if needed 01/03/2025 Activetake 2 puff(s) by inhalation every six hours as needed for wheezingalbuterol (PROVENTIL HFA;VENTOLIN HFA) 90 mcg/actuation inhaler Inhale 2 puffs every 6 (six) hours as needed for wheezing. ActiveAlbuterol Sulfate HFA 108 (90 Base) MCG/ACT Inhalation for 25 Days ActiveAlbuterol Sulfate HFA 108 (90 Base) MCG/ACT Inhalation for 25 Days Activeamoxicillin 875 mg / clavulanate 125 mg oral tablet (1 source)Penicillin-class AntibacterialStart: 42-19-1052jbxb 1 tablet by mouth every twelve hoursAmoxicillin-Pot Clavulanate 875-125 MG 1 tablet Orally every 12 hrs for 10 day(s) Sep, Activebaclofen 10 mg oral tablet (20 sources)gamma-Aminobutyric Acid-ergic AgonistStart: 04-10-2025 End: 73-11-1660biox 1 tablet by mouth four times dailyBaclofen 10 mg tablet Active 10 MG PO Four times daily 120 0 July 01, 2025 1:42pm Chronic bilat eral low back pain Low back pain, unspecified Other chronic pain Complies with drug therapyStart: 01-03-2025 End: 49-57-1911lvgg 1 tablet by mouth four times dailyBaclofen 10 mg tablet Active 10 MG PO Four times daily 120 April 10, 2025 12:00am Complies with drug therapyStart: 10-29-2024 End: 27-99-0201xpthjpxe (Lioresal) 5 MG tablet Indications: Chronic bilateral low back pain, unspecified whether sciatica present TAKE 1 TABLET BY MOUTH THREE TIMES DAILY IN THE MORNING THEN IN THE EVENING THEN AT BEDTIME 90 tablet 1 10/29/2024 01/03/2025 DiscontinuedStart: 05-28-2024 End: 41-05-8528oktz 1 tablet by mouth in the morning, then take 1 tablet by mouth in the evening, then take 1 tablet by mouth at bedtimebaclofen (Lioresal) 5 MG tablet Indications: Chronic bilateral low back pain, unspecified whether sc iatica present Take 1 tablet (5 mg) by mouth in the morning and 1 tablet (5 mg) in the evening and 1 tablet (5 mg) before bedtime. 90 tablet 1 07/19/2024 08/18/2024 ActiveStart: 92-13-2186jziu 1 tablet by mouth in the morning, [...] mg) before bedtime. 90 tablet 2 03/07/2024 ActiveBaclofen 10 MG Oral for 30 Days Activebenzonatate 200 mg oral capsule (1 source)Non-narcotic AntitussiveStart: 32-54-2003krli 1 capsule by mouth every eight hoursBenzonatate 200 MG 1 capsule Orally Three times a day Sep, ActivediazePAM 10 mg oral tablet (2 sources)BenzodiazepineStart: 34-52-1289Lxpcihxn (Valium) 10 mg tablet Active 10 MG PO Once as needed for claustraphobia 1 April 12:00am Anxiety Anxiety disorder, unspecified Take 30 minutes prior to MRI Complies with drug therapydiclofenac sodium 75 mg delayed release oral tablet (12 sources)Nonsteroidal Anti-inflammatory DrugStart: 08-38-1031ffdu 1 tablet by mouth twice daily as neededdiclofenac (Voltaren) 75 MG EC tablet Take 75 mg by mouth 2 (two) times a day as needed 12/31/2024 Activetake 1 capsule by mouth three times daily as neededDiclofenac 18 MG 1 capsule as needed Orally Three times a day ActiveDULoxetine 60 mg delayed release oral capsule (20 sources)Serotonin and Norepinephrine Reuptake InhibitorStart: 04-17-2025 End: 53-41-8708aeyw 1 capsule by mouth once dailyDuloxetine 30 mg capsule,delayed release(DR/EC) Active 30 MG PO daily 90 90 April 23, 2025 8:02am Chronic bilateral low back pain Low back pain, unspecified Other chronic pain Complies with drug therapyStart: 12-05-2024 End: 93-24-8726pvji 1 capsule by mouth once dailyDULoxetine (Cymbalta) [address] capsule Indications: Neuropathic pain TAKE 1 CAPSULE BY MOUTH ONCE DAILY 30 capsule 3 12/05/2024 02/05/2025 DiscontinuedStart: 89-16-7329blrr 1 capsule by mouth once dailyDULoxetine (Cymbalta) [address] capsule Indications: Neuropathic pain TAKE 1 CAPSULE BY MOUTH DAILY 30 capsule 3 08/01/2024 ActiveStart: 57-02-1427ulox 1 capsule by mouth once dailyDULoxetine (Cymbalta) [address] capsule Indications: Neuropathic pain TAKE 1 CAPSULE BY MOUTH DAILY 30 capsule 3 03/26/2024 ActiveStart: 02-23-2018 End: 54-52-6926getd 1 capsule by mouth once dailyDuloxetine 60 mg capsule,delayed release(DR/EC) Active 60 MG PO Daily April 24, 2025 1:20pm Complies with drug therapyDULoxetine (CYMBALTA) 60 mg capsule Take 90 mg by mouth daily. Activetake 1 capsule by mouth once dailyDULoxetine HCl 30 MG TAKE 1 CAPSULE BY MOUTH DAILY Oral for 30 Days Activefexofenadine hydrochloride 180 mg oral tablet (20 sources)Histamine-1 Receptor AntagonistStart: 15-74-0022zirq 1 tablet by mouth once dailyFexofenadine 180 mg tablet Active 180 MG PO Daily April 17, 2025 12:00am Complies with drug therapytake 1 tablet by mouth every twelve hours Fexofenadine HCl 60 MG 1 tablet Orally Twice a day Activefluticasone propionate 0.05 mg/actuat metered dose nasal spray (11 sources)CorticosteroidStart: 02-20-2025 End: 97-51-2650Hknvsztlqdx Propionate 50 mcg/actuation spray,suspension Active INTRANASAL April 17, 2025 12:00am Complies with drug therapyStart: 09-23-2023 take 2 spray(s) nasal route once dailyFluticasone Propionate 50 MCG/ACT 2 sprays Nasally Once a day for 14 day(s) Sep, Activeketoconazole 20 mg/ml medicated shampoo (1 source)Azole AntifungalStart: 68-36-8621eepcatmjeozx (NIZORAL) 2 % shampoo Indications: Dandruff in adult Apply 1 Application topically 2 (two) times a week. Apply to damp skin, lather, leave on 5 minutes, and rinse 120 mL 07/22/2025 Activelisinopril 20 mg oral tablet (20 sources)Angiotensin Converting Enzyme InhibitorStart: 02-23-2018 End: 24-88-9325loqb 1 tablet by mouth once dailyLisinopril 20 mg tablet Active 20 MG PO Daily 90 90 1 May 13, 2025 9:09am Hypertension Essential (primary) hypertension Complies with drug therapyMedical Marijuana / Cannabinoid Product as documented (2 sources)Medical Marijuana / Cannabinoid Product as documented as documented as documented as documented Activemeloxicam 15 mg oral tablet (1 source)Nonsteroidal Anti-inflammatory Drugtake 1 tablet by mouth once daily meloxicam (MOBIC) 15 mg tablet Take 15 mg by mouth daily. Activeomeprazole 20 mg delayed release oral capsule (20 sources)Proton Pump InhibitorStart: 81-06-1423mtyr 1 capsule by mouth once dailyOmeprazole 20 mg capsule,delayed release(DR/EC) Active 1 cap/day PO Daily February 23, 2018 12:00am Complies with drug therapy End: 96-92-1509npux 1 capsule by mouth once dailyomeprazole (PriLOSEC) 40 mg capsule Take 40 mg by mouth daily. Activeondansetron 4 mg disintegrating oral tablet (10 sources)Serotonin-3 Receptor AntagonistStart: 33-07-6008mehzfrutbhj ODT (Zofran-ODT) 4 MG disintegrating tablet 4 mg 08/09/2024 Activephentermine hydrochloride 37.5 mg oral tablet (16 sources)Sympathomimetic Amine AnorecticStart: 04-17-2025 End: 90-38-5887orvu 1 tablet by mouth once daily 30 minutes after breakfast Phentermine (Adipex-P) 37.5 mg tablet Active 37.5 MG PO Daily 0 July 15, 2025 8:52am Hypertension Morbid obesity with body mass index (BMI) of 45.0 to 49.9 in adult Essential (primary) hypertension Morbid (severe) obesity due to excess calories Body mass index [BMI] 45.0-49.9, adult mustadminister 30 minutes before or 1-2 hours after breakfast Complies with drug therapyStart: 02-04-2025 End: 97-15-9803ddammecyflh (Adipex-P) 37.5 MG tablet 37.5 mg 02/04/2025 03/27/2025 Discontinued (Therapy completed)predniSONE 20 mg oral tablet (5 sources)Start: 02-20-2025 End: 43-82-0124bivs 1 tablet by mouth in the morningpredniSONE (Deltasone) 20 MG tablet Indications: Rhinitis medicamentosa Take 1 tablet (20 mg) by mouth in the morning and 1 tablet (20 mg) before bedtime. Do all this for 6 days. 12 tablet /06/2025 ActiveStart: 86-12-9468vrtz 1 tablet by mouth every twelve hourspredniSONE 20 MG 1 tablet Orally bid for 5 day(s) Sep, ActiveStart: 47-27-2620olopbgJGNN 20 MG Take 3 tabs daily x 3 days, then take 2 tabs daily x 3 days, then take 1 tab dailyx 3 days. Orally Once a day for 9 days Mar, Not-Taking/PRNpregabalin 200 mg oral capsule (20 sources)Start: 01-31-2024 End: 25-54-9671mpiw 1 capsule by mouth three times dailyPregabalin 200 mg capsule Active 200 MG PO Three times daily 90 30 2 April 24, 2025 1:25pm Chronic bilateral low back pain Low back pain, unspecified Other chronic pain Complies with drug therapyPregabalin 200 MG Oral for 30 Days Lfhsaq82 hr propranolol hydrochloride 80 mg extended release oral capsule (20 sources)beta-Adrenergic BlockerStart: 48-48-4716knpq 1 capsule by mouth once dailyPropranolol 80 mg capsule,extended release 24 hr Active 80 MG PO Daily April 17, 2025 12:00am Complies with drug therapy End: 47-98-9258qaxt 1 tablet by mouth in the morning, then take 1 tablet by mouth at bedtimepropranoloL (INDERAL) 80 mg tablet Take 1 tablet (80 mg total) by mouth in the morning and 1 tablet(80 mg total) before bedtime. Active SUMAtriptan 100 mg oral tablet (20 sources)Serotonin-1b and Serotonin-1d Receptor AgonistStart: 04-17-2025 Sumatriptan Succinate 100 mg tablet Active MG PO April 17, 2025 12:00am Complies with drug therapytake 1 tablet by mouth once as neededSUMAtriptan (IMITREX) 100 mg tablet Take 1 tablet (100 mg total) by mouth once as needed. ActivetiZANidine 4 mg oral tablet (1 source)Central alpha-2 Adrenergic Agonisttake 1 tablet by mouth twice daily tiZANidine (ZANAFLEX) 4 mg tablet Take 4 mg by mouth 2 (two) times a day. Active Completed/Discontinued Medications MedicationDrug Class(es)DatesSig (Normalized)Sig (Original)amitriptyline hydrochloride 25 mg oral tablet (12 sources)Tricyclic AntidepressantStart: 12-04-2024 End: 11-34-1813qqsk 3 tablets by mouth at bedtimeamitriptyline (Elavil) 25 MG tablet Indications: Paresthesia Take 3 tablets (75 mg) by mouth at bedtime 90 tablet 3 12/04/2024 02/05/2025 DiscontinuedStart: 54-13-4120mjwr 1-0.5 tablets by mouth once daily at bedtimeamitriptyline (Elavil) 25 MG tablet Indications: Paresthesia 1 1/2-2 po qhs 60 tablet 3 08/01/2024 ActiveStart: 85-71-1235hezk 0.5-1 tablets by mouth at bedtimeamitriptyline (Elavil) 25 MG tablet Indications: Paresthesia TAKE 1/2 (ONE-HALF) TO 1 (ONE) TABLET BY MOUTH AT BEDTIME 30 tablet 07/04/2024 ActiveStart: 19-17-2658wsyx 0.5-1 tablets by mouth once daily at bedtimeamitriptyline (Elavil) 25 MG tablet Indications: Paresthesia 1/2 - 1 tab PO QHS 30 tablet 2 04/18/2024 Activegabapentin 600 mg oral tablet (3 sources)Anti-epileptic AgentStart: 06-18-2019 End: 59-50-2976Dinlsscegr 600 mg Tablet Discontinued 700 MG PO Three times daily June 18, 2019 12:00am 2024 9:57amGerd Medication (3 sources)Start: 02-23-2018 End: 77-88-9302Hyis Medication Discontinued February 23, 2018 12:00am February 23, 2018 4:42pmmexiletine hydrochloride 200 mg oral capsule (3 sources)AntiarrhythmicStart: 06-18-2019 End: 94-93-8026Kbqrlkkiqg 200 mg Capsule Discontinued June 18, 2019 12:00am June 18, 2019 7:52am Problems Active Problems Problem ClassificationProblemDateDocumented DateEpisodic/ChronicAllergic reactions (1 source)Allergic contact dermatitis due to plants, except foodEpisodicAnxiety disorders (3 sources)Anxiety; Translations: [Anxiety disorder, unspecified]05-08-2025 ChronicChronic obstructive pulmonary disease and bronchiectasis (7 sources)Chronic obstructive lung disease; Translations: [Chronic obstructive pulmonary disease, unspecified]Onset: 748928-87-6628VjifxwsKkdfsol obstructive pulmonary disease and bronchiectasis (1 source)Bronchitis, not specified as acute or chronicEpisodicDisorders of lipid metabolism (10 sources)Hyperlipidemia; Translations: [Hyperlipidemia, unspecified]Onset: 102980-76-5175RhckzvoRleylntxru disorders (14 sources)Gastroesophageal reflux disease; Translations: [Gastro-esophageal reflux disease without esophagitis]Onset: 607728-14-5375RrticrhAllsptvdv hypertension (20 sources)Hypertensive disorder; Translations: [Hypertension, unspecified] Onset: 158573-08-5546SirlguxFnacsoag; including migraine (12 sources)Migraine; Translations: [Migraine, unspecified, not intractable, without status migrainosus]Onset: 067916-45-6450QvgqmgxTwqsrklemos chest pain (3 sources)Chest pain; Translations: [Chest pain, unspecified]93-73-9475Uibwgksg Comment on above:Problem List clean-up per request of Phys. EHR Cmte Osteoarthritis (9 sources)Arthropathy of left hip joint; Translations: [Unilateral primary osteoarthritis, left hip]Onset: 258842-83-8903ByolflkQsrei connective tissue disease (1 source)Other muscle spasm; Translations: [OTHER MUSCLE SPASM]Onset: 76-87-6160TyddartsPmkiq ear and sense organ disorders (4 sources)Impacted cerumen of bilateral ears; Translations: [Impacted cerumen, bilateral]71-76-0184EikgvzmhEuzbg inflammatory condition of skin (1 source)Seborrhea capitis; Translations: [Seborrhea capitis]Onset: 07-22-2025 EpisodicOther inflammatory condition of skin (1 source)Pityriasis simplex; Translations: [Seborrhea capitis]07-22-2025 EpisodicOther nervous system disorders (4 sources)Other chronic pain; Translations: [OTHER CHRONIC PAIN]Onset: 39-80-4379XqftxzjPdlue nervous system disorders (1 source)Other specified mononeuropathies; Translations: [OTHER SPECIFIED MONONEUROPATHIES]Onset: 20-49-9564VgeszceQamva nervous system disorders (20 sources)Neuropathy; Translations: [Polyneuropathy, unspecified]Onset: 449440-32-4332RuxsvabOqtry nervous system disorders (5 sources)Bilateral carpal tunnel syndrome; Translations: [Carpal tunnel syndrome, bilateral upper limbs]66-75-9298YyrrtieSnudr nervous system disorders (4 sources)Carpal tunnel syndrome of left wrist; Translations: [Carpal tunnel syndrome, left upper limb]42-91-1717JngakymTdrts nervous system disorders (4 sources)Carpal tunnel syndrome of right wrist; Translations: [Carpal tunnel syndrome, right upper limb]24-02-9734QkkbqpbAkkab nervous system disorders (1 source)Chronic pain syndrome; Translations: [Chronic pain syndrome]Onset: 54-55-3197TyxpccqXdwwb nervous system disorders (1 source)Polyneuropathy, unspecified; Translations: [Polyneuropathy, unspecified]Onset: 46-77-9286JreqmrpWkugk nervous system disorders (1 source)Chronic pain syndrome; Translations: [Chronic pain syndrome]07-22-2025 ChronicOther non-traumatic joint disorders (1 source)Pain in left hip; Translations: [PAIN IN LEFT HIP]Onset: 01-10-2023 EpisodicOther non-traumatic joint disorders (1 source)Pain in right hip; Translations: [PAIN IN RIGHT HIP]Onset: 01-10-2023 EpisodicOther nutritional; endocrine; and metabolic disorders (7 sources)Obesity caused by energy imbalance; Translations: [Morbid (severe) obesity due to excess calories]Onset: 396643-66-2192ZjszmidWnrys nutritional; endocrine; and metabolic disorders (9 sources)Body mass index 40+ - severely obese; Translations: [Morbid (severe) obesity due to excess calories]98-20-0669YgdbfcdCdamq nutritional; endocrine; and metabolic disorders (1 source)Body mass index (BMI) 45.0-49.9, adult; Translations: [Body mass index (BMI) 45.0-49.9, adult]Onset: 48-04-8573YwktwzlFqdxb nutritional; endocrine; and metabolic disorders (1 source)Severe obesity; Translations: [Class 3 severe obesity due to excess calories without serious comorbidity with body mass index (BMI) of 45.0 to 49.9 in adult ([facility])]78-44-0133OqqcxikLytko upper respiratory disease (5 sources)Rhinitis medicamentosa; Translations: [Chronic rhinitis]02-20-2025 ChronicOther upper respiratory infections (1 source)Acute sinusitis, unspecifiedEpisodicResidual codes; unclassified (10 sources)Obstructive sleep apnea syndrome; Translations: [Obstructive sleep apnea (adult) (pediatric)]32-35-7193SjbdwjmQojhneaq codes; unclassified (1 source)Obstructive sleep apnea (adult) (pediatric); Translations: [Obstructive sleep apnea (adult) (pediatric)]Onset: 69-22-6536HwnntymDhmfwrqlm and history of mental health and substance abuse codes (5 sources)Ex-smoker; Translations: [Personal history of nicotine dependence] 62-91-5590WptkmnufNculrjnzxqo; intervertebral disc disorders; other back problems (20 sources)Spondylosis without myelopathy or radiculopathy, lumbar region; Translations: [Other intervertebraldisc degeneration, lumbar region]Onset: 23-64-4439RsrzqnuZhdfqjqimpb; intervertebral disc disorders; other back problems (20 sources)Muscle spasm of back; Translations: [Intervertebral disc disorders with radiculopathy, lumbar region]Onset: 88-30-7180KcehscuxXtwqojz on above: Problem List clean-up per request of Phys. EHR CmteSubstance-related disorders (3 sources)Smokes tobacco daily; Translations: [Nicotine dependence, unspecified, uncomplicated]89-35-7343VyjjpynCzqzqjjwtwha (1 source)LOW BACK PAIN, UNSPECIFIED; Translations: [LOW BACK PAIN, UNSPECIFIED] Onset: 46-16-8675Ecbpxvikydlb (1 source)Abdominal Pain; Vomiting; DiarrheaOnset: 71-55-4363Xpkycjrmgvbm (1 source)Obesity, class 3; Translations: [Obesity, class 3]Onset: 07-22-2025 Unclassified (1 source)Other intervertebral disc degeneration, lumbar region with discogenic back pain and lower extremitypain; Translations: [Other intervertebral disc degeneration, lumbar region with discogenic back pain and lower extremity pain] Onset: 42-03-3362Jtghclyuzrdj (1 source)New PatientOnset: 07-22-2025 Past or Other Problems Problem ClassificationProblemDateDocumented DateEpisodic/ChronicIntestinal obstruction without hernia (11 sources)Ileus, unspecified; Translations: [Unspecified intestinal obstruction, unspecified as to partial versus complete obstruction]Onset: 422229-78-2557CxukuoxzPnug disorders (1 source)Mood disordersOnset: Nausea and vomiting (12 sources)Nausea with vomiting, unspecified; Translations: [Nausea and vomiting]Onset: 934955-91-4927XegqlfqsVqjxszs on above:Problem List clean- up per request of Phys. EHR CmteOther nervous system disorders (20 sources)Sensory ataxia ; Translations: [Other lack of coordination]Onset: 609296-27-1297NaboabypMhmll nervous system disorders (20 sources)Numbness of lower limb ; Translations: [Anesthesia of skin]Onset: 603559-81-0441Xulrucae Results Test NameValueInterpretationReference RangeFacilityCBC (NO DIFF)on 07-22-2025 Erythrocyte distribution width (RBC) [Ratio]13.3 %Eyqxlt16.5-15[facility] PPGComment on above:Performed By: #### CBC #### [facility] ([facility]) [address] [place] [address] VIRHematocrit (Bld) [Volume fraction]43.8 %Blbzox86-94PzlRcxyna Hospital Ambulatory PPGComment on above:Performed By: #### CBC #### [facility] ([facility]) [address] [place] [address] VIRHemoglobin (Bld) [Mass/Vol]14.5 g/bOEfauok62-92CveDwnhql Hospital Ambulatory PPGComment on above:Performed By: #### CBC #### [facility] ([facility]) [address] [place] [address] VIRMCH (RBC) [Entitic mass]28.2 lvCkratq41-81NqnWrwsyz Hospital Ambulatory PPGComment on above:Performed By: #### CBC #### [facility] ([facility]) [address] [place] [address] VIRMCHC (RBC) [Mass/Vol]33.1 g/oAXedaly38-12AuwKwlvbj Hospital Ambulatory PPGComment on above:Performed By: #### CBC #### [facility] ([facility]) [address] [place] [address] VIRMCV (RBC) [Entitic vol]85 kLCthrio00-147ZhpJwvogn Hospital Ambulatory PPGComment on above:Performed By: #### CBC #### [facility] ([facility]) [address] [place] [address] VIRPlatelet mean volume (Bld) [Entitic vol]9.0 fLNormal7-12 [facility]ulatory PPGComment on above:Performed By: #### CBC #### [facility] ([facility]) [address] [place] [address] VIRPlatelets (Bld) [#/Vol]334 10*3/aWBucycj704-239ErgVlclxp Hospital Ambulatory PPGComment on above:Performed By: #### CBC #### [facility] ([facility]) [address] [place] [address] VIRRBC COUNT5.14 X10E12/LNormal4.1-5.7[facility]ulatory PPGComment on above:Performed By: #### CBC #### [facility] ([facility]) [address] [place] [address] VIRWBC (Bld) [#/Vol]7.5 10*3/uLNormal4-11[facility]ulatory PPGComment on above:Performed By: #### CBC #### [facility] ([facility]) [address] [place] [address] VIRCOMPREHENSIVE METABOLIC PANELon 41-51-3339Nwpriqn [Mass/Vol] 4.4 g/dLNormal3.2-5.3PSelect [facility] Ambulatory PPGComment on above:Performed By: #### CMP #### [facility] ([facility]) [address] [place] [address] VIRALP [Catalytic activity/Vol]69 U/PCullck11-519RyqUmforw Hospital Ambulatory PPGComment on above:Performed By: #### CMP #### [facility] ([facility]) [address] [place] [address] VIRALT [Catalytic activity/Vol]22 U/LNormal<=40[facility] Ambulatory PPGComment on above:Performed By: #### CMP #### [facility] ([facility]) [address] [place] [address] VIRAnion gap [Moles/Vol]10 mmol/LNormal5-15[facility] Ambulatory PPGComment on above:Performed By: #### CMP #### [facility] ([facility]) [address] [place] [address] VIRAST [Catalytic activity/Vol]17 U/LNormal<=41[facility] Ambulatory PPGComment on above:Performed By: #### CMP #### [facility] ([facility]) [address] [place] [address] VIRBilirubin [Mass/Vol]0.6 mg/dLNormal0.3-1.2PSelect [facility] Ambulatory PPGComment on above:Performed By: #### CMP #### [facility] ([facility]) [address] [place] [address] VIRCalcium [Mass/Vol]9.4 mg/dLNormal8.5-10.5PSelect [facility] Ambulatory PPGComment on above:Performed By: #### CMP #### [facility] ([facility]) [address] [place] [address] VIRChloride [Moles/Vol]106 mmol/ZKlfyyl22-507IobXdjpbi Hospital Ambulatory PPGComment on above:Performed By: #### CMP #### [facility] ([facility]) [address] [place] [address] VIRCO2 [Moles/Vol]26 mmol/PIskuuw92-90NtoLvjume Hospital Ambulatory PPGComment on above:Performed By: #### CMP #### [facility] ([facility]) [address] [place] [address] VIRCreatinine [Mass/Vol]0.84 mg/dLNormal0.60-1.30[facility] Ambulatory PPGComment on above:Result Comment: METHOD TRACEABLE TO IDMS STANDARDPerformed By: #### CMP #### [facility] ([facility]) [address] [place] [address] VIREGFR (CKD-EPI) NON-RACE DEPENDENT>^90Normal>=60[facility] Ambulatory PPGComment on above:Result Comment: Reported eGFR is based on the CKD-EPI 2020 equation that does not use a race coefficient.Performed By: #### CMP #### [facility] ([facility]) [address] [place] [address] VIRGlucose [Mass/Vol]96 mg/dPTkhaol36-23VwzHsowub Hospital Ambulatory PPGComment on above:Performed By: #### CMP #### [facility] ([facility]) [address] [place] [address] VIRPotassium [Moles/Vol]4.1 mmol/LNormal3.5-5.0[facility] Ambulatory PPGComment on above:Performed By: #### CMP #### [facility] ([facility]) [address] [place] [address] VIRProtein [Mass/Vol]6.7 g/dLNormal6.0-8.0[facility] Ambulatory PPGComment on above:Performed By: #### CMP #### [facility] ([facility]) [address] [place] [address] VIRSodium [Moles/Vol]142 mmol/VUuwzjp880-525YjnIcethk Hospital Ambulatory PPGComment on above:Performed By: #### CMP #### [facility] ([facility]) [address] [place] [address] VIRUrea nitrogen [Mass/Vol]14 mg/dLNormal5-23[facility] Ambulatory PPGComment on above:Performed By: #### CMP #### [facility] ([facility]) [address] [place] [address] VIRLIPID PROFILEon 04-57-8781Hwlkligorrp [Mass/Vol]192 mg/dL Gzfplo490-741HqoIdsfhv Hospital Ambulatory PPGComment on above:Performed By: #### LIPR #### [facility] ([facility]) [address] [place] [address] VIRCholesterol in HDL [Mass/Vol]36 mg/dLLow>39[facility] Ambulatory PPGComment on above:Result Comment: HDL <40 mg/dL - High Risk HDL > or = 40mg/dL- Desirable HDL >60 mg/dL - Negative RiskPerformed By: #### LIPR #### [facility] ([facility]) [address] [place] [address] VIRCholesterol in LDL [Mass/Vol]107 mg/dLNormal<130[facility] Ambulatory PPGComment on above:Result Comment: LDL <100 mg/dL - Desirable LDL >160 mg/dL - High RiskPerformed By: #### LIPR #### [facility] ([facility]) [address] [place] [address] VIRCHOLESTEROL:HDL5.3High1.0-5.0[facility] Ambulatory PPGComment on above:Performed By: #### LIPR #### [facility] ([facility]) [address] [place] [address] VIRTriglyceride [Mass/Vol]244 mg/rAMjnr03-659VwyXgeujq Hospital Ambulatory PPGComment on above:Performed By: #### LIPR #### [facility] ([facility]) [address] [place] [address] VIRVERY LOW YVUNTPGSCKK50 mg/dLHigh0-30ProBarn[facility]ville [facility] Ambulatory PPGComment on above:Performed By: #### LIPR #### [facility] ([facility]) [address] [place] [address] VIRPROSTATIC SPECIFIC ANTIGEN SCREENon 54-34-2128GLWICXNPQ SPEC ANT1.43 ng/mLNormal0.00-4.00[facility] Ambulatory PPGComment on above: Result Comment: The method used for this test is [email or web address] DXI chemiluminescent immunoassay. Values obtained by different assay methods cannot be used interchangeably.Performed By: #### PSAS #### [facility] ([facility]) [address] [place] [address] VIRTHYROID PROFILE INCLUDES TSH FT4on 89-53-5146Mwfp T4 [Mass/Vol]1.09 ng/dLNormal0.61-1.60[facility] Ambulatory PPGComment on above:Performed By: #### THYR #### [facility] ([facility]) [address] [place] [address] VIRTSH1.01 uIU/mLNormal0.49-4.67[facility] Ambulatory PPGComment on above:Performed By: #### THYR #### [facility] ([facility]) [address] [place] [address] VIRPatient Letteron 06-05-8521Fckbdrh Letter [id number]#1.00[facility] Patient Letteron 03-59-5257Rtsaxjy Letter [id number]#1.00[facility] Coding Summaryon 81-66-5961Wmoqak SummaryHTMLBase 64 JjuuvsnbNMy5oWq+PGhlYWQ+LT2OBOXqM83lvXYugG7rP6ZLIQrPTredXLZGWUeZTtSblaGpIT7klHCu ZXJu [file] ZXI (more content not included)...[facility] HospitalProvider Orderson 32-70-7365Wxrvabcf [id number]#1.00OTGTIFF [facility] HospitalConsent Formson 65-03-2981Ejiyzyw Forms [id number]#1.00OT[facility] Anesthesia Noteon 62-08-3959Zfkzescgvv NotePatient: RICCARDO HALE Age: 49 years Sex: MALE : 1975 Associated Diagnoses: None Author: Eitan Ramírez MD Postoperative Information Post Operative Note Health Status Allergies: Allergic Reactions (All) No known allergies Problem list: All Problems Chronic sinusitis / SNOMED CT 40549289 / Confirmed Side effect of medication / SNOMED CT 818660783 / Confirmed Headache / SNOMED CT 24961078 / Confirmed Hypertension / SNOMED CT 4724921942 / Confirmed Ileus / SNOMED CT 3883537917 / Confirmed Migraine / SNOMED CT 52900944 / Confirmed Nausea / SNOMED CT 1464731887 / Confirmed Obesity / SNOMED CT 0313515095 / Confirmed GRACIE (obstructive sleep apnea) / SNOMED CT 162594977 / Confirmed Sleep apnea / SNOMED CT 126861691 / Confirmed Umbilical hernia / SNOMED CT 4406244002 / Confirmed Physical Examination Vital Signs (last [...] [Verified on: 02/21/2025 08:59 EDT] Eitan Ramírez MDTriHealth Bethesda North HospitalAnesthesia NotePatient: RICCARDO HALE Age: 49 years Sex: MALE [...] allergies Current medications: Home Medications (17) Active acetaminophen-hydrocodone 325 mg-5 mg oral tablet Adipex-P 37.5 [...] All Problems Chronic sinusitis / SNOMED CT 45212983 / Confirmed Side effect of medication / SNOMED CT 513442809 / Confirmed Headache / SNOMED CT 96719280 / Confirmed Hypertension / SNOMED CT 9523850935 / Confirmed Ileus / SNOMED CT 0776621525 / Confirmed Migraine / SNOMED CT 40556779 / Confirmed Nausea / SNOMED CT 7902853169 / Confirmed Obesity / SNOMED CT 7694048875 / Confirmed GRACIE (obstructive sleep apnea) / SNOMED CT 045022014 / Confirmed Sleep apnea / SNOMED CT 318874876 / Confirmed Umbilical hernia / SNOMED CT 7956991736 / Confirmed Histories Family History: COPD - [...] longer using. - 07/26/2023 19:51 - Carlos RN, Bebe Tobacco 08/09/2024 Smoking tobacco use: Former [...] Last Charted Temp Temporal 36.4 DegC (FEB 21:34) Heart Rate Monitored 82 bpm (FEB 21:34) Resp Rate 20 br/min (FEB 21:34) SBP H 146 mmHg (FEB 21:34) DBP H 94 mmHg (FEB 21:34) Review / Management Laboratory Results Plan [place] [employer] Anesthesiologists (ASA) physical status classification: Class III. Anesthetic Preoperative Plan Anesthesia: Monitored anesthesia care. Anesthetic plan, risks, benefits, and alternatives discussedwith the patient and/or family. Patient verbalized understanding. [Electronically Signed on: 02/21/2025 07:31 EDT] Eitan Ramírez MD [Verified on: 02/21/2025 07:31 EDT] Eitan Ramírez MDTriHealth Bethesda North HospitalInpatient Patient Summaryon 02-21-2025 [place] [address] Patient Discharge Instructions Name: RICCARDO HALE SUDHAKARKATARZYNA : 1975 Patient Address: [address] [place] [address] Primary Care Provider: Name: MILAN NAILS DO After you are discharged if you find you have any questions, please, call [phone] ext [phone] to speak to a nurse. Discharge Diagnosis: 1:Screening for colorectal cancer; Encounter for screening for malignant neoplasm of rectum Prescription Information: If you have been given a prescription for narcotics, seek immediate medical attention if you have any difficulty breathing or any sudden status changes such as confusion andsleepiness. If you or anyone you know is experiencing suicidal thoughts, mental health, alcohol and/or drug addiction problems; contact the Mental Health & Recovery Board [facility] 11/04 Crisis Hotline -Text 4HCGA yw 202985. If you received any narcotics, sedation, or [...] or sign any legal documents [facility] would like to thank you for allowing us to assist you with your healthcare needs.The following includes patient education materials and information regarding your injury/illness. RICCARDO HALE has been given the following list of follow-up instructions, prescriptions, and patient education materials: Follow-up Instructions With: Address: When: MILAN NAILS With: Address: When: Martinez Gonzales [address] [place] [address], [place] [address] Business (1) , only if needed Medications [...] list that you can keep with you. acetaminophen-hydrocodone (acetaminophen-hydrocodone 325 mg-5 mg oral tablet) [...] capsule) 1 cap(s) Ora (more content not included)...[facility] Intraoperative Recordon 63-55-1643VUSD Intraoperative RecordMAGR Intra-Op Record Summary Primary Physician: Martinez Gonzales MD Finalized Date/Time: 02/21/25 08:30:12 Pt. Name: RICCARDO HALE /Sex: 1975 MALE Med Rec #: [id number] Physician: Martinez Gonzales MD Financial #: [id number] Pt. Type: D Room/Bed: / Admit/Disch: 02/21/25 [...] Ramírez MD, Debra RN Radloff, Leigh-Ann CSFA SLOT MANAGER Role Performed Anesthesiologist of Garment Steamer Chick Room Supervisor Record Time In 02/21/25 08:03:00 02/21/25 08:03:00 [...] Ramírez MD, Jessica Arredondo RN, Melvin Causey [facility], Dale Rothman Last Modified By: Jessica [...] Norton RN Airway Maintenance (more content not included)...[facility] Postoperative Recordon 95-99-5683QUBK Postoperative RecordMA Phase II Record Summary Primary Physician: Martinez Gonzales MD Finalized Date/Time: 02/21/25 09:09:46 Pt. Name: RICCARDO HALE./Sex: 1975 MALE Med Rec #: [id number] Physician: Martinez Gonzales MD Financial #: [id number] Pt. Type: D Room/Bed: / Admit/Disch: 02/21/25 06:22:54 - Institution: [facility] II Case Times MAGR Pre-Care Text: Patient is free from s/s of injury. Patient remains free from compromised physical state related tosurgery or anesthesia. Patient comfort maintained. Patient/family verbalize [...] Signatures Signed By: Elvira Hirsch RN 02/21/25 09:09[facility] HospitalMA Preoperative Recordon 30-05-7866VJLW Preoperative RecordMAGR Pre-Op Record Summary Primary Physician: Martinez Gonzales MD Finalized Date/Time: 02/21/25 08:05:28 Pt. Name: RICCARDO HALE /Sex: 1975 MALE Med Rec #: [id number] Physician: Martinez Gonzales MD Financial #: [id number] Pt. Type: D Room/Bed: / Admit/Disch: 02/21/25 [...] ready for surgery. The patient remains free froms/s of injury. Patient/family express understanding of plan of care and participate in decisions affectinghis or her perioperrative plan of care. Allergies documented appropriately. Patient identifiers and consent correct. General Comments: Pt arrives to [facility]. Pt denies SOB,cp,cough and flu like symptoms. Pt also denies pacemaker,defibrillator. Pt does have sleep apnea. Pt is not a diabetic. Finalized By: Jessica Arredondo RN Document Signatures Signed By: Jessica Arredondo RN 02/21/25 08:05[facility] HospitalPatient Handouton 12-78-8169Cmxnekg HandoutGastroenterology Diverticulosis Diverticulosis is when small pouches called diverticula form in the wall of the colon. The colon iswhere water is absorbed. It is also where poop (stool) is formed. The pouches form when the inside layer of the colon pushes through weak spots in the outer layers of the colon. You may have a few pouches or many of them. In most cases, the pouches do not cause problems. If they become inflamed or infected, you may havea condition called diverticulitis. What are the causes? [...] exercise. ? You smoke. ? You take tdpj-qby-jmyefko pain medicines. ? You have a family [...] other colon problems. It may be diagnosed whenyou have: ? A colonoscopy. This is when [...] what you can do at home to helpprevent problems. You may need treatment if you have symptoms or if you have had diverticulitis before. You may be told to: ? Eat a high-fiber diet. ? Take medicine to relax your colon. ? Lose weight. Follow these instructions at home: Medicines ? Take llaf-rdb-eulbafb and prescription medicines only as told by your provider. ? If told, take a fiber supplement or probiotic. Managing constipation Your condition may cause constipation. To prevent or treat constipation, you may need to: ? Drink enough fluid to keep your pee (urine) pale yellow. ? Take xahu-vco-liiphww or prescription medicines. ? Eat foods that [...] provider. Document Revised: 06/02/2023 Document Reviewed: 06/02/2023 awe.sm Patient Education ? 2023 [employer]. Radiology Colonoscopy, Adult, Care After The following [...] provider. Avoid heavy or fried foods that arehard to digest. Activity ? Rest as told by your health care provider. ? Avoid sitting for a long time without moving. Get up to take short walks every 1?2 hours. This isimportant to improve blood flow and breathing. Ask [...] your health care provider. Use the heat sourcethat your health care provider recommends, such as a moist heat pack or a heating pad. ? Place a towel between your skin and the heat source. ? Leave the heat on for 20?30 minutes (more content not included)...Normal [facility] HospitalOutside Recordson 27-79-1560Vlrubgo Records [id number]#1.00[facility] Release of Informationon 70-89-5579Pscvurl of Information [id number]#1.00[facility] HospitalCoding Summaryon 80-73-8582Ehysqu SummaryHTMLBase 64 ZmrctxwdNWt0wQm+PGhlYWQ+MZ5HNIAvD34gqMXeeC4cB2ZLGNnXBkhjJYZRQEnMGwIuntAnJA5dhUVm ZXJu [file] c2U (more content not included)...[facility] HospitalReminder Messageson 77-33-3340Mamppijn Messages From: MILAN NAILS DO To: [facility] Clinical Pool (MAGR_[place]); Sent: 11/19/2024 07:59:43 EST ! Show up: 11/19/2024 07:59:43 EST Subject: Results Follow Up Actions: Call the patient with result(s) Due Date/Time: 11/20/2024 07:59:00 EST Reminder Comments: cysts seen in both maxillary sinuses. suggest ent referral Results: Date Result Type Result Name 11/16/2024 9:[address] Sinus w/o Contrast Order [facility] HospitalOutside Recordson [id number] Records [id number]#1.00OTGTIFFMarion Hospital AND AUTO DIFFon 01-70-6427IXKGBRWI BASOPHIL0.1 X10E9/LNormal0.0-0.2Pro[facility] Medical CenterComment on above:Performed By: #### YAHAIRA, ANTONIETTA, 3040-3 #### [facility] ([id number]) [address] [place] [address] 24626SWOVRDWM NEUTROPHIL5.7 X10E9/LNormal1.5-6.6[facility] Medical CenterComment on above:Performed By: #### ANTONIETTA SYED, 0-3 #### [facility] ([id number]) [address] [place] [address] 22556Cblnifwms/100 WBC (Bld)0.6 %[facility] Comment on above:Performed By: #### ANTONIETTA SYED, 3039-3 #### [facility] ([id number]) [address] [place] [address] 15914Jripbdhqeac (Bld) [#/Vol]0.2 10*3/uLNormal0.0-0.4ProBaptist Hospitals Of Southeast TexasComment on above:Performed By: #### ANTONIETTA SYED, 3039-3 #### [facility] ([id number]) [address] [place] [address] 29568Azbvqobdpih/100 WBC (Bld)2.4 %[facility] Comment on above:Performed By: #### ANTONIETTA SYED, 3 #### [facility] ([id number]) [address] [place] [address] 76619Hawcldwjzlt distribution width (RBC) [Ratio]12.8 %Normal 11.5-15.0[facility] Medical CenterComment on above:Performed By: #### ANTONIETTA SYED, 3039-3 #### [facility] ([id number]) [address] [place] [address] 47597Ijgmydncex (Bld) [Volume fraction]40.2 %Itrpqj41-86DokDgmdegBaptist Hospitals Of Southeast TexasComment on above:Performed By: #### ANTONIETTA SYED, 3039-3 #### [facility] ([id number]) [address] [place] [address] [place] [address]Dqieelpksk (Bld) [Mass/Vol]13.4 g/bQVixsag67.0-17.0[facility] Medical CenterComment on above:Performed By: #### CBCSherice CMP, 3040-3 #### [facility] ([id number]) [address] [place] [address] 80387Dogsawjhuea (Bld) [#/Vol]2.5 10*3/uLNormal1.0-3.5POur Lady of Mercy HospitalComment on above:Performed By: #### CBCSherice CMP, 0-3 #### [facility] ([id number]) [address] [place] [address] 25114Batwygjkbou/100 WBC (Bld)26.9 %NormalProBaptist Hospitals Of Southeast Texas Comment on above:Performed By: #### CBCANTONIETTA Smiley, 3039-3 #### [facility] ([id number]) [address] [place] [address] 56867MHB (RBC) [Entitic mass]28.9 bzAiqnts58-52CnnLdikpjUniversity Hospitals Beachwood Medical CenterComment on above:Performed By: #### CBCSherice, CMP, 0-3 #### [facility] ([id number]) [address] [place] [address] 64193CQAD (RBC) [Mass/Vol]33.4 g/mXBcbaig43-97OarFulkvkBaptist Hospitals Of Southeast TexasComment on above:Performed By: #### CBCA, CMP, 0-3 #### [facility] ([id number]) [address] [place] [address] 36681LPV (RBC) [Entitic vol]87 pPQtfklz48-728WlyXjuhwk [facility]remont HospitalComment on above:Performed By: #### CBCA, CMP, 0-3 #### [facility] ([id number]) [address] [place] [address] 68901Tmnutnrvt (Bld) [#/Vol]0.9 10*3/uLNormal0-0.9[facility] Medical CenterComment on above:Performed By: #### CBCSherice CMP, 3040-3 #### [facility] ([id number]) [address] [place] [address] 70505Fcovihxur/100 WBC (Bld)9.2 %[facility] Comment on above:Performed By: #### CBCSherice, CMP, 3039-3 #### [facility] ([id number]) [address] [place] [address] 09133Ffocmpbuajb/100 WBC (Bld)60.9 %[facility] Comment on above:Performed By: #### YAHAIRA, CMP, 3039-3 #### [facility] ([id number]) [address] [place] [address] 24116Wdnhtizo mean volume (Bld) [Entitic vol]8.7 fLNormal7-12 [facility] Medical CenterComment on above:Performed By: #### YAHAIRA, CMP, 304-3 #### [facility] ([id number]) [address] [place] [address] 79891Ngmcsozfl (Bld) [#/Vol]351 10*3/iCZbdrhh427-010XrsMdufpa [facility] HospitalComment on above:Performed By: #### CBCA, CMP, 0-3 #### [facility] ([id number]) [address] [place] [address] 22420VPM COUNT4.64 X10E12/LNormal4.10-5.70[facility] Comment on above:Performed By: #### CBCSherice, CMP, 3040-3 #### [facility] ([id number]) [address] [place] [address] 12963TTX (Bld) [#/Vol]9.3 10*3/uLNormal4.0-11.0ProBaptist Hospitals Of Southeast TexasComment on above:Performed By: #### ANTONIETTA SYED, 3040-3 #### [facility] ([id number]) [address] [place] [address] 62770WUXIPUWAESXGV METABOLIC PANELon 90-06-9227Weywgyw [Mass/Vol]3.8 g/dLNormal3.2-5.3ProMedCentinela Freeman Regional Medical Center, Marina CampusComment on above:Performed By: #### ANTONIETTA SYED, 3039-3 #### [facility] ([id number]) [address] [place] [address] 84840ASU [Catalytic activity/Vol]53 U/VZyxysd80-582UxmOqqjnfBaptist Hospitals Of Southeast TexasComment on above:Performed By: #### ANTONIETTA SYED, 3039-3 #### [facility] ([id number]) [address] [place] [address] 17265ZPS [Catalytic activity/Vol]16 U/LNormal0-40ProBaptist Hospitals Of Southeast TexasComment on above:Performed By: #### ANTONIETTA SYED, 3040-3 #### [facility] ([id number]) [address] [place] [address] 90448Hxklc gap [Moles/Vol]9 mmol/LNormal5-15ProBaptist Hospitals Of Southeast TexasComment on above:Performed By: #### ANTONIETTA SYED, 3040-3 #### [facility] ([id number]) [address] [place] [address] 71450URU [Catalytic activity/Vol]15 U/LNormal0-41ProBaptist Hospitals Of Southeast TexasComment on above:Performed By: #### ANTONIETTA SYED, 3040-3 #### [facility] ([id number]) [address] [place] [address] 54658Atkxkigcc [Mass/Vol]1.0 mg/dLNormal0.3-1.2POur Lady of Mercy HospitalComment on above:Performed By: #### ANTONIETTA SYED, 3040-3 #### [facility] ([id number]) [address] [place] [address] 58925Fbidqpx [Mass/Vol]8.8 mg/dLNormal8.5-10.5POur Lady of Mercy HospitalComment on above:Performed By: #### ANTONIETTA SYED, 0-3 #### [facility] ([id number]) [address] [place] [address] 94340Lozrjqmo [Moles/Vol]106 mmol/NDycyyx30-898ZdoYtzodtUniversity Hospitals Beachwood Medical CenterComment on above:Performed By: #### ANTONIETTA SYED, 3040-3 #### [facility] ([id number]) [address] [place] [address] 03663JU5 [Moles/Vol]25 mmol/VZiygmp12-03RztNjesfaOur Lady of Mercy Hospital Comment on above:Performed By: #### ANTONIETTA SYED, 3040-3 #### [facility] ([id number]) [address] [place] [address] 40404Yxfeufkhrr [Mass/Vol]0.83 mg/dLNormal0.70-1.20[facility] Medical CenterComment on above:Result Comment: METHOD TRACEABLE TO IDMS STANDARD Performed By: #### ANTONIETTA SYED, 3040-3 #### [facility] ([id number]) [address] [place] [place] [address] 48039uYTM (CKD-EPI) NON-RACE DEPENDENT>90Normal>59ProBaptist Hospitals Of Southeast TexasComment on above:Result Comment: Reported eGFR is based on the CKD-EPI 2020 equation that does not use a race coefficient.Performed By: #### ANTONIETTA SYED, 3040-3 #### [facility] ([id number]) [address] [place] [address] 03079Gasuzst [Mass/Vol]103 mg/wVKveq17-88EheNchwlsBaptist Hospitals Of Southeast Texas Comment on above:Performed By: #### ANTONIETTA SYED, 0-3 #### [facility] ([id number]) [address] [place] [address], [place] [address]Fqdnodarh [Moles/Vol]4.3 mmol/LNormal3.5-5.0ProBaptist Hospitals Of Southeast TexasComment on above:Performed By: #### ANTONIETTA SYED, 3039-3 #### [facility] ([id number]) [address] [place] [address], [place] [address]Wpnbtwa [Mass/Vol]6.3 g/dLNormal6.0-8.0ProBaptist Hospitals Of Southeast TexasComment on above:Performed By: #### ANTONIETTA SYED, 3039-3 #### [facility] ([id number]) [address] [place] [address], [place] [address]Rahkmp [Moles/Vol]140 mmol/ODzqgtn592-554CheCgsxyq [facility]remont HospitalComment on above:Performed By: #### ANTONIETTA SYED, 3039-3 #### [facility] ([id number]) [address] [place] [address], [place] [address]Ziin nitrogen [Mass/Vol]5 mg/dLNormal5-23ProBaptist Hospitals Of Southeast TexasComment on above:Performed By: #### ANTONIETTA SYED, 3039-3 #### [facility] ([id number]) [address] [place] [address], [place] [address]DICKDZFGFty 77-96-4156Kuidzwbpe [Mass/Vol]2.1 mg/dLNormal 1.8-2.6ProBaptist Hospitals Of Southeast TexasComment on above:Performed By: #### ANTONIETTA SYED, 0-3 #### [facility] ([id number]) [address] [place] [address], [place] [address]GYO AND AUTO DIFFon 91-64-6168BCSXSEVD BASOPHIL0.0 X10E9/L Normal0.0-0.2ProMedCentinela Freeman Regional Medical Center, Marina CampusComment on above:Performed By: #### ANTONIETTA SYED, 3040-3 #### [facility] ([id number]) [address] [place] [address] 32624VOVTHQMP NEUTROPHIL5.6 X10E9/LNormal1.5-6.6ProBaptist Hospitals Of Southeast TexasComment on above:Performed By: #### ANTONIETTA SYED, 3039-3 #### [facility] ([id number]) [address] [place] [address] 63688Rjdcxounr/100 WBC (Bld)0.5 %NormalUniversity Hospitals Beachwood Medical Center Comment on above:Performed By: #### ANTONIETTA SYED, 3039-3 #### [facility] ([id number]) [address] [place] [address] 99794Wuubxrjzkbg (Bld) [#/Vol]0.3 10*3/uLNormal0.0-0.4[facility] Beachwood Medical CenterComment on above:Performed By: #### ANTONIETTA SYED, 3039-3 #### [facility] ([id number]) [address] [place] [address] 52132Ygirjqrrelw/100 WBC (Bld)3.7 %NormalUniversity Hospitals Beachwood Medical Center Comment on above:Performed By: #### ANTONIETTA SYED, 3039-3 #### [facility] ([id number]) [address] [place] [address] 12436Pdhtmkzmwen distribution width (RBC) [Ratio]12.7 %Normal 11.5-15.0[facility]als Beachwood Medical CenterComment on above:Performed By: #### ANTONIETTA SYED, 3039-3 #### [facility] ([id number]) [address] [place] [address] 01153Qvsjicofir (Bld) [Volume fraction]41.7 %Zqcveh64-79DylArhwshBaptist Hospitals Of Southeast TexasComment on above:Performed By: #### CBCSherice CMP, 3040-3 #### [facility] ([id number]) [address] [place] [address] 85907Ljstwboyau (Bld) [Mass/Vol]14.4 g/yGSehttt82.0-17.0ProBaptist Hospitals Of Southeast TexasComment on above:Performed By: #### CBCA, CMP, 3039-3 #### [facility] ([id number]) [address] [place] [address] 80890Cejmrbbitep (Bld) [#/Vol]2.2 10*3/uLNormal1.0-3.5POur Lady of Mercy HospitalComment on above:Performed By: #### CBCSherice, CMP, 3039-3 #### [facility] ([id number]) [address] [place] [address] 63245Zizehvesqeh/100 WBC (Bld)25.4 %NormalUniversity Hospitals Beachwood Medical Center Comment on above:Performed By: #### CBCSherice, CMP, 3039-3 #### [facility] ([id number]) [address] [place] [address] 75742LRW (RBC) [Entitic mass]29.7 dzFmkqcv90-87JslQtthzhBaptist Hospitals Of Southeast TexasComment on above:Performed By: #### CBCA, CMP, 0-3 #### [facility] ([id number]) [address] [place] [address] 34853VAKC (RBC) [Mass/Vol]34.5 g/wXZrefoq15-17BotAassyrBaptist Hospitals Of Southeast TexasComment on above:Performed By: #### CBCA, CMP, 0-3 #### [facility] ([id number]) [address] [place] [address] 74496YYX (RBC) [Entitic vol]86 wROcqycb30-945SseRdhnloUniversity Hospitals Beachwood Medical CenterComment on above:Performed By: #### ANTONIETTA SYED, 3040-3 #### [facility] ([id number]) [address] [place] [address] 23120Dfekapdri (Bld) [#/Vol]0.7 10*3/uLNormal0-0.9[facility] Medical CenterComment on above:Performed By: #### CBCSherice, CMP, 0-3 #### [facility] ([id number]) [address] [place] [address] 86005Mrzequnfd/100 WBC (Bld)7.4 %[facility] Comment on above:Performed By: #### YAHAIRA CMP, 3039-3 #### [facility] ([id number]) [address] [place] [address] 96567Ogtwxyhkrbt/100 WBC (Bld)63.0 %[facility] Comment on above:Performed By: #### ANTONIETTA SYED, 0-3 #### [facility] ([id number]) [address] [place] [address] 46852Tzltioen mean volume (Bld) [Entitic vol]8.6 fLNormal7-12 [facility] Medical CenterComment on above:Performed By: #### YAHAIRA CMP, 0-3 #### [facility] ([id number]) [address] [place] [address] 21493Kqjhngzdx (Bld) [#/Vol]345 10*3/zOAanciz644-477BkaRifyxa [facility]ont HospitalComment on above:Performed By: #### CBCA, CMP, 3040-3 #### [facility] ([id number]) [address] [place] [address] 39442KRH COUNT4.84 X10E12/LNormal4.10-5.70[facility] Comment on above:Performed By: #### ANTONIETTA SYED, 3040-3 #### [facility] ([id number]) [address] [place] [address] 54655GOJ (Bld) [#/Vol]8.8 10*3/uLNormal4.0-11.0ProBaptist Hospitals Of Southeast TexasComment on above:Performed By: #### ANTONIETTA SYED, 3039-3 #### [facility] ([id number]) [address] [place] [address] 84518RETMUUKDWVMKB METABOLIC PANELon 33-74-4931Vhsgfye [Mass/Vol]3.9 g/dLNormal3.2-5.3POur Lady of Mercy HospitalComment on above:Performed By: #### ANTONIETTA SYED, 3039-3 #### [facility] ([id number]) [address] [place] [address] [place] [address]OXI [Catalytic activity/Vol]57 U/ZAevoqu26-448OtdMzitwuBaptist Hospitals Of Southeast TexasComment on above:Performed By: #### ANTONIETTA SYED, 3039-3 #### [facility] ([id number]) [address] [place] [address] [place] [address]RMU [Catalytic activity/Vol]21 U/LNormal0-40[facility] Medical CenterComment on above:Performed By: #### ANTONIETTA SYED, 0-3 #### [facility] ([id number]) [address] [place] [address] [place] [address]Caaav gap [Moles/Vol]9 mmol/LNormal5-15[facility] Medical CenterComment on above:Performed By: #### ANTONIETTA SYED, 0-3 #### [facility] ([id number]) [address] [place] [address] 45689RAM [Catalytic activity/Vol]18 U/LNormal0-41ProBaptist Hospitals Of Southeast TexasComment on above:Performed By: #### ANTONIETTA SYED, 3040-3 #### [facility] ([id number]) [address] [place] [address], [place] [address]Iratdiokn [Mass/Vol]0.9 mg/dLNormal0.3-1.2POur Lady of Mercy HospitalComment on above:Performed By: #### ANTONIETTA SYED, 0-3 #### [facility] ([id number]) [address] [place] [address], [place] [address]Mxphuez [Mass/Vol]8.8 mg/dLNormal8.5-10.5POur Lady of Mercy HospitalComment on above:Performed By: #### ANTONIETTA SYED, 0-3 #### [facility] ([id number]) [address] [place] [address], [place] [address]Qwhblfrx [Moles/Vol]106 mmol/KEicxhx76-247WewIrvzsjBaptist Hospitals Of Southeast TexasComment on above:Performed By: #### ANTONIETTA SYED, 3040-3 #### [facility] ([id number]) [address] [place] [address], [place] [address]GW1 [Moles/Vol]23 mmol/TAouneg53-62BaxZpbyneOur Lady of Mercy Hospital Comment on above:Performed By: #### ANTONIETTA SYED, 3040-3 #### [facility] ([id number]) [address] [place] [address], [place] [address]Utysnsfdnn [Mass/Vol]0.80 mg/dLNormal0.70-1.20ProBaptist Hospitals Of Southeast TexasComment on above:Result Comment: METHOD TRACEABLE TO IDMS STANDARD Performed By: #### ANTONIETTA SYED, 3040-3 #### [facility] ([id number]) [address] [place] [address], [place] [address]mQKO (CKD-EPI) NON-RACE DEPENDENT>90Normal>59ProBaptist Hospitals Of Southeast TexasComment on above:Result Comment: Reported eGFR is based on the CKD-EPI 2020 equation that does not use a race coefficient.Performed By: #### ANTONIETTA SYED, 3040-3 #### [facility] ([id number]) [address] [place] [address] 36854Nafhsal [Mass/Vol]83 mg/bROpaysk08-69DgcFtoanrBaptist Hospitals Of Southeast Texas Comment on above:Performed By: #### ANTONIETTA SYED, 3040-3 #### [facility] ([id number]) [address] [place] [address] 39538Nmqxmqqie [Moles/Vol]3.4 mmol/LLow3.5-5.0ProBaptist Hospitals Of Southeast TexasComment on above:Performed By: #### ANTONIETTA SYED, 3040-3 #### [facility] ([id number]) [address] [place] [address] 71371Vqqqsih [Mass/Vol]6.6 g/dLNormal6.0-8.0ProBaptist Hospitals Of Southeast TexasComment on above:Performed By: #### ANTONIETTA SYED, 3040-3 #### [facility] ([id number]) [address] [place] [address] 04399Gztusw [Moles/Vol]138 mmol/UBsiuca935-317LvkSmjorn Fremont HospitalComment on above:Performed By: #### ANTONIETTA SYED, 3040-3 #### [facility] ([id number]) [address] [place] [address] 94523Tzkt nitrogen [Mass/Vol]8 mg/dLNormal5-23ProBaptist Hospitals Of Southeast TexasComment on above:Performed By: #### ANTONIETTA SYED, 3040-3 #### [facility] ([id number]) [address] [place] [address] 05385GNCSRYXKKxp 90-42-9650Nsbprhyxt [Mass/Vol]2.0 mg/dLNormal 1.8-2.6ProMedica Atascosa HospitalComment on above:Performed By: #### ANTONIETTA SYED, 3040-3 #### [facility] ([id number]) [address] [place] [address] 25941JBATTSIQMyy 37-67-4635Baglakzbo [Moles/Vol]3.3 mmol/LLow3.5-5.0 [facility] CenterComment on above:Performed By: #### ANTONIETTA SYED, 3040-3 #### [facility] ([id number]) [address] [place] [address] 79479Lystfircw [Moles/Vol]3.1 mmol/LLow3.5-5.0[facility] CenterComment on above:Performed By: #### ANTONIETTA SYED, 3040-3 #### [facility] ([id number]) [address] [place] [address] 77656PL ABDOMEN AP 1 VWon 63-00-4204EG ABDOMEN AP 1 VWXR ABDOMEN AP 1 VW History: SBO Exam/Technique: AP view abdomen Comparison: No relevant prior studies available. Findings/impression: Enteric tube tip is in the stomach. There is oral contrast opacifying large bowel loops excluding high-grade small bowel obstruction. There is nonobstructive bowel gas pattern Finalized by Jaspal Valenzuela MD on 07/26/2024 8:55 AMNormalProBaptist Hospitals Of Southeast TexasCB AND AUTO DIFFon 17-87-4049KGMCUOKS BASOPHIL0.1 X10E9/LNormal0.0-0.2 [facility] CenterComment on above:Performed By: #### ANTONIETTA SYED, 93333-5 #### [facility] ([id number]) [address] [place] [address] 71626WBLWBFVQ NEUTROPHIL4.3 X10E9/LNormal1.5-6.6[facility] Medical CenterComment on above:Performed By: #### ANTONIETTA SYED, #### [facility] ([id number]) [address] [place] [address] 23533Jgighstis/100 WBC (Bld)0.7 %NormalUniversity Hospitals Beachwood Medical Center Comment on above:Performed By: #### ANTONIETTA SYED, #### [facility] ([id number]) [address] [place] [address] 23763Aznpqktdusl (Bld) [#/Vol]0.4 10*3/uLNormal0.0-0.4[facility] Medical CenterComment on above:Performed By: #### ANTONIETTA SYED, #### [facility] ([id number]) [address] [place] [address] 47170Dosugeadqmq/100 WBC (Bld)4.5 %NormalUniversity Hospitals Beachwood Medical Center Comment on above:Performed By: #### ANTONIETTA SEYD, #### [facility] ([id number]) [address] [place] [address] 55947Vtkghjundfv distribution width (RBC) [Ratio]12.9 %Normal 11.5-15.0[facility] Medical CenterComment on above:Performed By: #### ANTONIETTA SYED, #### [facility] ([id number]) [address] [place] [address] 94155Kjfcsfpcfw (Bld) [Volume fraction]40.5 %Fodorn68-83KdoLdzdhiBaptist Hospitals Of Southeast TexasComment on above:Performed By: #### CBCANTONIETTA Smiley, #### [facility] ([id number]) [address] [place] [address] 74748Phtxjxcwvj (Bld) [Mass/Vol]13.8 g/mRPntubh77.0-17.0ProBaptist Hospitals Of Southeast TexasComment on above:Performed By: #### CBCANTONIETTA Smiley, #### [facility] ([id number]) [address] [place] [address] 25474Tslpiuupwwx (Bld) [#/Vol]2.7 10*3/uLNormal1.0-3.5POur Lady of Mercy HospitalComment on above:Performed By: #### CBCSherice, CMP, #### [facility] ([id number]) [address] [place] [address] 58124Ztbnixpbzsx/100 WBC (Bld)32.2 %NormalProBaptist Hospitals Of Southeast Texas Comment on above:Performed By: #### YAHAIRA CMP, #### [facility] ([id number]) [address] [place] [address] 08244OAF (RBC) [Entitic mass]29.5 qcRlcuuc01-88BwfSopzikBaptist Hospitals Of Southeast TexasComment on above:Performed By: #### CBCSherice, CMP, #### [facility] ([id number]) [address] [place] [address] 67187FBMN (RBC) [Mass/Vol]34.0 g/gDTlxmlj31-01UkxLqecaaUniversity Hospitals Beachwood Medical CenterComment on above:Performed By: #### YAHAIRA, CMP, #### [facility] ([id number]) [address] [place] [address] 55021WEK (RBC) [Entitic vol]87 jKDqgjtv19-241WhiZbeqki [facility]ont HospitalComment on above:Performed By: #### CBCA, CMP, #### [facility] ([id number]) [address] [place] [address] 90405Arjqcffoq (Bld) [#/Vol]1.0 10*3/uLHigh0-0.9[facility] Medical CenterComment on above:Performed By: #### CBCA, CMP, #### [facility] ([id number]) [address] [place] [address] 29937Jpnpizpyg/100 WBC (Bld)11.8 %[facility] Comment on above:Performed By: #### YAHAIRA CMP, 43354-4 #### [facility] ([id number]) [address] [place] [address] 49991Lpufrlavhkl/100 WBC (Bld)50.8 %[facility] Comment on above:Performed By: #### YAHAIRA, CMP, 89293-5 #### [facility] ([id number]) [address] [place] [address], [place] [address]Gqtujetk mean volume (Bld) [Entitic vol]8.6 fLNormal7-12 [facility] Medical CenterComment on above:Performed By: #### ANTONIETTA SYED, #### [facility] ([id number]) [address] [place] [address] 63724Rcsukbyof (Bld) [#/Vol]355 10*3/mZRbqiwv835-248JlmClravkUniversity Hospitals Beachwood Medical CenterComment on above:Performed By: #### YAHAIRA CMP, 25120-4 #### [facility] ([id number]) [address] [place] [address] 68750PUN COUNT4.67 X10E12/LNormal4.10-5.70[facility] Comment on above:Performed By: #### CBCSherice, CMP, #### [facility] ([id number]) [address] [place] [address], [place] [address]DVI (Bld) [#/Vol]8.4 10*3/uLNormal4.0-11.0[facility] Medical CenterComment on above:Performed By: #### CBCSherice, CMP, #### [facility] ([id number]) [address] [place] [address] [place] [address]PFRSAPSGZAVEK METABOLIC PANELon 62-97-5951Xhidnyx [Mass/Vol]3.7 g/dLNormal3.2-5.3POur Lady of Mercy HospitalComment on above:Performed By: #### ANTONIETTA SYED, 77277-4 #### [facility] ([id number]) [address] [place] [address], [place] [address]SOH [Catalytic activity/Vol]56 U/KJybsty32-764UqgOediqhBaptist Hospitals Of Southeast TexasComment on above:Performed By: #### ANTONIETTA SYED, 44527-0 #### [facility] ([id number]) [address] [place] [address], [place] [address]HFH [Catalytic activity/Vol]21 U/LNormal0-40ProBaptist Hospitals Of Southeast TexasComment on above:Performed By: #### ANTONIETTA SYED, 76466-3 #### [facility] ([id number]) [address] [place] [address], [place] 78[address]Wfbrg gap [Moles/Vol]5 mmol/LNormal5-15[facility] Medical CenterComment on above:Performed By: #### ANTONIETTA SYED, 99935-7 #### [facility] ([id number]) [address] [place] [address] 77434ZDP [Catalytic activity/Vol]16 U/LNormal0-41[facility] Medical CenterComment on above:Performed By: #### ANTONIETTA SYED, 50218-6 #### [facility] ([id number]) [address] [place] [address], [place] [address]Zytvukeux [Mass/Vol]0.8 mg/dLNormal0.3-1.2POur Lady of Mercy HospitalComment on above:Performed By: #### ANTONIETTA SYED, 73623-1 #### [facility] ([id number]) [address] [place] [address], [place] 47[address]Onnqgaj [Mass/Vol]8.4 mg/dLLow8.5-10.5POur Lady of Mercy HospitalComment on above:Performed By: #### ANTONIETTA SYED, #### [facility] ([id number]) [address] [place] [address] 76782Ipcgjuqf [Moles/Vol]110 mmol/QSkco47-627DhtVhlnmmBaptist Hospitals Of Southeast TexasComment on above:Performed By: #### ANTONIETTA SYED, #### [facility] ([id number]) [address] [place] [address] 43540NG1 [Moles/Vol]23 mmol/GPhpluv00-07MsdBhehnoOur Lady of Mercy Hospital Comment on above:Performed By: #### ANTONIETTA SYED, #### [facility] ([id number]) [address] [place] [address] 04858Merynlepky [Mass/Vol]0.94 mg/dLNormal0.70-1.20[facility] Medical CenterComment on above:Result Comment: METHOD TRACEABLE TO IDMS STANDARD Performed By: #### ANTONIETTA SYED, 61656-4 #### [facility] ([id number]) [address] [place] [address] 71987wDIV (CKD-EPI) NON-RACE DEPENDENT>90Normal>59ProBaptist Hospitals Of Southeast TexasComment on above:Result Comment: Reported eGFR is based on the CKD-EPI 2021 equation that does not use a race coefficient.Performed By: #### ANTONIETTA SYED, #### [facility] ([id number]) [address] [place] [address] 15950Ruzccns [Mass/Vol]102 mg/tBHloo30-87LwjJkjqwbUniversity Hospitals Beachwood [facility] Center Comment on above:Performed By: #### ANTONIETTA SYED, #### [facility] ([id number]) [address] [place] [address] 94977Ludjzmjzk [Moles/Vol]3.6 mmol/LNormal3.5-5.0ProBaptist Hospitals Of Southeast TexasComment on above:Performed By: #### ANTONIETTA SYED, 92925-4 #### [facility] ([id number]) [address] [place] [address] 58622Qpmcujs [Mass/Vol]6.3 g/dLNormal6.0-8.0ProBaptist Hospitals Of Southeast TexasComment on above:Performed By: #### ANTONIETTA SYED, 86952-0 #### [facility] ([id number]) [address] [place] [address] 09033Zrtlaz [Moles/Vol]138 mmol/EWnvrnd110-828KyjIlrpdl [facility]ont HospitalComment on above:Performed By: #### ANTONIETTA SYED, 45632-9 #### [facility] ([id number]) [address] [place] [address] 67743Wpyu nitrogen [Mass/Vol]12 mg/dLNormal5-23ProBaptist Hospitals Of Southeast TexasComment on above:Performed By: #### ANTONIETTA SYED, 11940-6 #### [facility] ([id number]) [address] [place] [address] 30227ML ABDOMEN AND PELVIS W CONTon 73-28-6039CA ABDOMEN AND PELVIS W CONTCT ABDOMEN AND PELVIS W CONT CT ABDOMEN AND PELVIS HISTORY: Obstruction. COMPARISON STUDY: 07/24/2024. TECHNIQUE: CT scan of the abdomen and pelvis performed with IV and oral contrast. 100 mL of Omnipaque 300 was injected intravenously without complication. Coronal and sagittal reformats generated andreviewed. FINDINGS: LOWER THORAX: 2 mm right lower [...] demonstrates wall thickening, please correlate with urinalysis. PERITONEUM/RETROPERITONEUM: No free air or fluid. LYMPH NODES: [...] Findings Committee. J Am Ag Radiol. 2017 Apr;14(8):3373-[address] scans at this facility use dose modulation, iterative reconstruction, and/or weight based dosing when appropriate to reduce radiation dose to as low as reasonably achievable. Finalized by Bam Camejo MD on 07/25/2024 10:48 AMNormalProBaptist Hospitals Of Southeast TexasGlucose Glucometer (BldC) [Mass/Vol]on 90-54-0122Vkeskvc [Mass/Vol]76 mg/pJChlzlx67-30GegCahwciBaptist Hospitals Of Southeast TexasMAGNESIUMon 58-43-6665Eerbacmpf [Mass/Vol]1.9 mg/dLNormal1.8-2.6ProBaptist Hospitals Of Southeast TexasComment on above: Performed By: #### CBCA, CMP, 76299-6 #### [facility] ([id number]) [address] [place] [address] [id number] CHEST 1 VWon [id number] CHEST 1 VWXR CHEST 1 VW EXAM: XR CHEST 1 VW CLINICAL INFORMATION: ng placement. COMPARISON: 07/25/2024 FINDINGS: There are no pleural effusions. There is mild left base atelectasis. There are no focal consolidations. There is no pulmonary edema or pleural effusions. Stable cardiomediastinal silhouette. Again seen is a moderate-sized hiatal hernia. There is a gastric tube. The tip extends below the diaphragm and off the wmajw-vf-yqif. IMPRESSION: 1. No acute cardiopulmonary disease. 2. Moderate-sized hiatal hernia. There is a gastric tube with the tip extending below the diaphragmand off the lydbz-tq-movf. Finalized by Francisco Bangura MD on 07/25/2024 5:24 PMNormalUniversity Hospitals [facility] XR CHEST 1 VWXR CHEST 1 VW HISTORY: NG placement COMPARISON: [...] by Logan Carlisle MD on 07/25/2024 3:36 PMNormalUniversity Hospitals Beachwood Medical CenterCB AND AUTO DIFFon [id number] BASOPHIL0.1 X10E9/LNormal0.0-0.2 [facility] CenterComment on above:Performed By: #### CBCA CMP, 3040-3 #### [facility] ([id number]) [address] [place] [address] 79850AZMASOAH NEUTROPHIL7.3 X10E9/LHigh1.5-6.6[facility] Medical CenterComment on above:Performed By: #### CBCA CMP, 3040-3 #### [facility] ([id number]) [address] [place] [address] 24672Hpwrnbnav/100 WBC (Bld)1.0 %NormalUniversity Hospitals Beachwood Medical Center Comment on above:Performed By: #### ANTONIETTA SYED, 3040-3 #### [facility] ([id number]) [address] [place] [address] 31460Kidqbskbzju (Bld) [#/Vol]0.3 10*3/uLNormal0.0-0.4[facility] Medical CenterComment on above:Performed By: #### ANTONIETTA SYED, 3039-3 #### [facility] ([id number]) [address] [place] [address] 14143Loehfxazmpw/100 WBC (Bld)2.5 %NormalUniversity Hospitals Beachwood Medical Center Comment on above:Performed By: #### ANTONIETTA SYED, 3 #### [facility] ([id number]) [address] [place] [address] 81723Zngipmpsgzt distribution width (RBC) [Ratio]13.0 %Normal 11.5-15.0[facility] Medical CenterComment on above:Performed By: #### ANTONIETTA SYED, 3039-3 #### [facility] ([id number]) [address] [place] [address] [id number] (Bld) [Volume fraction]47.6 %Opmayf74-89HxnAiesbtBaptist Hospitals Of Southeast TexasComment on above:Performed By: #### CBCANTONIETTA Smiley, 3039-3 #### [facility] ([id number]) [address] [place] [address] 88280Maunwqtskx (Bld) [Mass/Vol]16.2 g/qACloptl32.0-17.0[facility] Beachwood Medical CenterComment on above:Performed By: #### CBCANTONIETTA Smiley, 3039-3 #### [facility] ([id number]) [address] [place] [address] 30594Ptpspogbuoq (Bld) [#/Vol]2.1 10*3/uLNormal1.0-3.5POur Lady of Mercy HospitalComment on above:Performed By: #### CBCA, CMP, 3040-3 #### [facility] ([id number]) [address] [place] [address] 56381Ivdleglvooq/100 WBC (Bld)19.2 %NormalProBaptist Hospitals Of Southeast [place] Comment on above:Performed By: #### CBCA, CMP, 3040-3 #### [facility] ([id number]) [address] [place] [address] 63635GZV (RBC) [Entitic mass]29.4 rsKeuvjv88-62AorLqwcqtUniversity Hospitals Beachwood Medical CenterComment on above:Performed By: #### CBCA, CMP, 3040-3 #### [facility] ([id number]) [address] [place] [address] 23684EKQC (RBC) [Mass/Vol]34.0 g/ePYdyrdl84-71RgxKqdbrsUniversity Hospitals Beachwood Medical CenterComment on above:Performed By: #### CBCA, CMP, 3040-3 #### [facility] ([id number]) [address] [place] [address] 44381DIK (RBC) [Entitic vol]86 iTNtmuiv00-963VxySkzgsw [facility]remont HospitalComment on above:Performed By: #### CBCA, CMP, 3040-3 #### [facility] ([id number]) [address] [place] [address] 36681Dbelxdlwm (Bld) [#/Vol]1.3 10*3/uLHigh0-0.9[facility] Medical CenterComment on above:Performed By: #### CBCA, CMP, 3040-3 #### [facility] ([id number]) [address] [place] [address] 64787Skqiuwssq/100 WBC (Bld)11.6 %[facility] Comment on above:Performed By: #### YAHAIRA CMP, 3040-3 #### [facility] ([id number]) [address] [place] [address] 70480Wjazfzffnou/100 WBC (Bld)65.7 %[facility] Comment on above:Performed By: #### YAHAIRA, CMP, 3039-3 #### [facility] ([id number]) [address] [place] [address] 99417Kranbkxl mean volume (Bld) [Entitic vol]8.4 fLNormal7-12 [facility] Medical CenterComment on above:Performed By: #### ANTONIETTA SYED, 3039-3 #### [facility] ([id number]) [address] [place] [address] 04631Iedezojdq (Bld) [#/Vol]470 10*3/pYAfao146-722TwsHpqicsUniversity Hospitals Beachwood Medical CenterComment on above:Performed By: #### YAHAIRA CMP, 3039-3 #### [facility] ([id number]) [address] [place] [address] 51376JWP COUNT5.52 X10E12/LNormal4.10-5.70[facility] Comment on above:Performed By: #### YAHAIRA, CMP, 3039-3 #### [facility] ([id number]) [address] [place] [address] 21513MWN (Bld) [#/Vol]11.1 10*3/uLHigh4.0-11.0[facility] Medical CenterComment on above:Performed By: #### YAHAIRA, CMP, 0-3 #### [facility] ([id number]) [address] [place] [address] 84122XYLMJNVETUGJW METABOLIC PANELon 33-17-1101Dhxxfcy [Mass/Vol]4.3 g/dLNormal3.2-5.3POur Lady of Mercy HospitalComment on above:Performed By: #### ANTONIETTA SYED, 3040-3 #### [facility] ([id number]) [address] [place] [address], [place] [address]AYN [Catalytic activity/Vol]63 U/CRxozkr31-220MqoJaxafqBaptist Hospitals Of Southeast TexasComment on above:Performed By: #### ANTONIETTA SYED, 0-3 #### [facility] ([id number]) [address] [place] [address], [place] [address]NQM [Catalytic activity/Vol]25 U/LNormal0-40ProBaptist Hospitals Of Southeast TexasComment on above:Performed By: #### ANTONIETTA SYED, 3039-3 #### [facility] ([id number]) [address] [place] [address], [place] [address]Qirgv gap [Moles/Vol]9 mmol/LNormal5-15[facility] Medical CenterComment on above:Performed By: #### ANTONIETTA SYED, 0-3 #### [facility] ([id number]) [address] [place] [address] 00598GDV [Catalytic activity/Vol]23 U/LNormal0-41[facility] Medical CenterComment on above:Performed By: #### ANTONIETTA SYED, 0-3 #### [facility] ([id number]) [address] [place] [address] 62800Jbuhunvgp [Mass/Vol]1.4 mg/dLHigh0.3-1.2POur Lady of Mercy HospitalComment on above:Performed By: #### ANTONIETTA SYED, 3040-3 #### [facility] ([id number]) [address] [place] [address], [place] [address]Afoqpno [Mass/Vol]10.1 mg/dLNormal8.5-10.5POur Lady of Mercy HospitalComment on above:Performed By: #### ANTONIETTA SYED, 3040-3 #### [facility] ([id number]) [address] [place] [address], [place] [address]Vpkpgzoo [Moles/Vol]104 mmol/IPdoxoz99-165JpcOqimveUniversity Hospitals Beachwood Medical CenterComment on above:Performed By: #### ANTONIETTA SYED, 3040-3 #### [facility] ([id number]) [address] [place] [address] 82463MF4 [Moles/Vol]22 mmol/UYrylvr98-59RxfPvdtsnOur Lady of Mercy Hospital Comment on above:Performed By: #### ANTONIETTA SYDE, 3040-3 #### [facility] ([id number]) [address] [place] [address] 84241Ufjczcsmwl [Mass/Vol]1.05 mg/dLNormal0.70-1.20[facility] Medical CenterComment on above:Result Comment: METHOD TRACEABLE TO IDMS STANDARD Performed By: #### ANTONIETTA SYED, 3040-3 #### [facility] ([id number]) [address] [place] [address] 93996SIE/1.73 sq M.predicted among non-blacks MDRD (S/P/Bld) [Vol rate/Area]87 mL/min/{1.73_m2}Normal>59ProBaptist Hospitals Of Southeast TexasComment on above:Result Comment: Reported eGFR is based on the CKD-EPI 1 equation that does not use a race coefficient.Performed By: #### ANTONIETTA SYED, 3040-3 #### [facility] ([id number]) [address] [place] [address], [place] [address]Kvkxdfl [Mass/Vol]113 mg/uNJbhx79-34GtuLnoejxUniversity Hospitals Beachwood Medical Center Comment on above:Performed By: #### ANTONIETTA SYED, 3040-3 #### [facility] ([id number]) [address] [place] [address] 51779Xodcjmrdz [Moles/Vol]3.7 mmol/LNormal3.5-5.0ProBaptist Hospitals Of Southeast TexasComment on above:Performed By: #### ANTONIETTA SYED, 3040-3 #### [facility] ([id number]) [address] [place] [address] 50401Xtodcof [Mass/Vol]7.9 g/dLNormal6.0-8.0ProBaptist Hospitals Of Southeast TexasComment on above:Performed By: #### ANTONIETTA SYED, 3040-3 #### [facility] ([id number]) [address] [place] [address] 13024Iqikys [Moles/Vol]135 mmol/JUlnrbq364-850AjfCunyzg [facility] HospitalComment on above:Performed By: #### ANTONIETTA SYED, 3040-3 #### [facility] ([id number]) [address] [place] [address] 16913Yqll nitrogen [Mass/Vol]13 mg/dLNormal5-23ProBaptist Hospitals Of Southeast TexasComment on above:Performed By: #### ANTONIETTA SYED, 3040-3 #### [facility] ([id number]) [address] [place] [address] 45861IL ABDOMEN AND PELVIS W CONTon 78-03-3344DX ABDOMEN AND PELVIS W CONTCT ABDOMEN AND PELVIS W CONT STUDY: CT ABDOMEN AND PELVIS W CONT INDICATION: Abdominal pain, acute, nonlocalized; ruq, luq, epigastric pain and vomiting since last night. TECHNIQUE: * CT abdomen and pelvis was performed after the administration of intravenous contrast. Coronal andsagittal reformatted images were generated and reviewed. Automated [...] small to characterize. No obstructive hydronephrosis or nephroureterolithiasis. Bladder appears unremarkable. Prostate calcifications without significant [...] exclude pheochromocytoma. Recommend no further imaging evaluation. [facility] AzleOscar NUNN, et al. Management of Incidental Adrenal Masses: A White Paper of the ACR Incidental Findings Committee. J Am Ag Radiol. 2017 Apr;14(8):9883-3577. THIS REPORT CONTAINS A SIGNIFICANT RESULT AND/OR RECOMMENDATION, WHICH REQUIRES THE ATTENTION OF THE LICENSED CAREGIVER RESPONSIBLE FOR THIS PATIENT. THEREFORE, I SPECIFICALLY DESIGNATED THIS REPORT TO BE TELEPHONED BY THE RADIOLOGY DEPARTMENT. FINDINGS WERE INSTRUCTED TO BE CALLED TO THE CLINICAL SERVICE ON 07/24/2024 4:17 PM Finalized by Daniel Mcallister on 07/24/2024 4:17 PMNormalProMedica Providence Tarzana Medical CenterLIPASEon 67-37-1828Znastq [Catalytic activity/Vol]22 U/IAiofvz32-89 [facility] Medical CenterComment on above:Performed By: #### CBCA, CMP, 3040-3 #### [facility] ([id number]) [address] [facility], FIRST FLOOR [place], [place] [address]UMZ 9-10 Nerveson 83-39-3426JPSK HealthcareNVC - Nerveson 53-59-0373EODQ HealthcareLUMBAR SPINE 6 OR MORE VWSon 15-67-3242BFPQZO SPINE 6 OR MORE SUniSelect Medical [facility] Department of Radiology [address] [place] [address] Patient Name: RICCARDO HALE : 1975 Sex: [...] , Ordering Provider - A JER MSN MATERIAL PLANNER , Exam: LUMBAR SPINE 6 OR MORE [...] radiographically. Electronically signed: Irma York. Transcribed by: [id number], User Resident: Electronically Signed by: IRMA YORK @ 01/15/2022 11:40 [facility] HospitalComment on above:Order Comment: , ap, lat, flex, ex, obliques, r/o instability or pars defect , Views (X-RAY, LUMBARSPINE): AP, Lateral, L5-S1 Spot, Obliques, Flexion, Extension , ap, lat, flex, ex, obliques, r/o instability or pars defect , Views (X-RAY, LUMBAR SPINE): AP, Lateral, L5-S1 Spot, Obliques, Flexion, Extension , , , Ordering Provider - A JER MSN MATERIAL PLANNER , Vital Signs Date TimeVital SignValuePerforming CnjmofmtlLbmoksub25-69-4369 10:16-0500Body joaexw325.3 cmMaximo Crookszer 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 Phone: [facility] [employer] Lslwmu03-76-0145 10:16-0500Body mass index (BMI) [Ratio]46.14 kg/m2Maximo Crookszer 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 Phone: [facility] [employer] Ikilkr81-88-9166 10:16-0500Body zydajwohpru73.1 [degF]Maximo Crookszer 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 Phone: [facility] [employer] Ynfxkq00-08-5955 10:16-0500Body yyvlwl645.79 kgMaximo Stout 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 Phone: [facility]11-03-2025 10:16-0500Diastolic blood ndyvqogy15 mm[Hg]Maximo Crookszer 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 Phone: [facility] [employer] Xdmaer35-51-1249 10:16-0500Heart rate 69 /minMaximo Crookszer 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 Phone: [facility] [employer] Zstoxr36-82-5799 10:16-0500 Respiratory rate18 /minMaximo Crookszer 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 Phone: [facility] [employer] Rtqwjg17-28-8174 10:16-3300VsX6% (BldA) [Mass fraction]95 %Maximo Crookszer 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 Phone: [facility] [employer] Xxdqsh20-08-0286 10:16-0500Systolic blood bghsenpj177 mm[Hg]Maximo Crookszer 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 Phone: [facility]10-27-2025 08:30-0400Body .26 cmTemi Marshall TIMBER INSPECTOR Work Phone: [facility]10-27-2025 08:30-0400 Body mass index (BMI) [Ratio]46.2 kg/g1LnfyzpewTemi Hanr TIMBER INSPECTOR Work Phone: [phone] [place], [place] 3011410-27-2025 08:30-0400 Body pvhhimceatt91.4 [degF]Temi Hanmelany TIMBER INSPECTOR Work Phone: [phone])[address] [place], [place] 3011410-27-2025 08:30-0400 Body jticzt386.97 kgTemi Hanr TIMBER INSPECTOR Work Phone: [phone] [place], [place] 3011410-27-2025 08:30-0400 Diastolic blood fpafguad29 mm[Hg]Temi Dangeloellenhenrymelany TIMBER INSPECTOR Work Phone: 1([phone] [place], [place] 3011410-27-2025 08:30-0400 Heart rate66 /minTemi Dangeloellenhenrymelany TIMBER INSPECTOR Work Phone: 1(970)[address] [place], [place] 3011410-27-2025 08:30-0400 SaO2% (BldA) [Mass fraction]95 %Temi Hanmelany TIMBER INSPECTOR Work Phone: [phone])[address] [place], [place] 3011410-27-2025 08:30-0400 Systolic blood mm[Hg]Temi Hanmelany TIMBER INSPECTOR Work Phone: 1(328)[address] [place], [place] 3011408-25-2025 08:55-0400 Body joejgc561.26 cmTemi Hanr TIMBER INSPECTOR Work Phone: 1(118)[address] [place], [place] 3011408-25-2025 08:55-0400 Body mass index (BMI) [Ratio]47.8 kg/w0SdumrbpfTemi Hanr TIMBER INSPECTOR Work Phone: 1(765)[address] [place], [place] 3011408-25-2025 08:55-0400 Body zybgaxxzvcd87.5 [degF]Temi Dangeloellenhenrymelany TIMBER INSPECTOR Work Phone: 1([phone] [place], [place] 3011408-25-2025 08:55-0400 Body dpckqe206.96 kgTemi Hanmelany TIMBER INSPECTOR Work Phone: 1(874)[address] [place], [place] 3011408-25-2025 08:55-0400 Diastolic blood bbpphosm33 mm[Hg]Temi Hanr TIMBER INSPECTOR Work Phone: 1(970)[address]08-25-2025 08:55-0400 Heart rate69 /Dea Dangeloellenhenryr TIMBER INSPECTOR Work Phone: 1(745)[address] [place], [place] 3011408-25-2025 08:55-0400 SaO2% (BldA) [Mass fraction]95 %Temi Hanr TIMBER INSPECTOR Work Phone: 1(461)[address]08-25-2025 08:55-0400 Systolic blood entixyls327 mm[Hg]Temi Dangeloellenhenryr TIMBER INSPECTOR Work Phone: 1(570)[address] [place], [place] 3011407-30-2025 09:31-0400 Body eaizwe902.26 cmTemi Dangelorbacher TIMBER INSPECTOR Work Phone: 1(197)[address] [place], [place] 3011407-30-2025 09:31-0400 Body mass index (BMI) [Ratio]49.4 kg/k7AzuvczfwTemi Dangelorbacher TIMBER INSPECTOR Work Phone: 1(139)[address] [place], [place] 3011407-30-2025 09:31-0400 Body mfoxovamuhu13 [degF]Temi Hanr TIMBER INSPECTOR Work Phone: 1([phone] [place], [place] 3011407-30-2025 09:31-0400 Body .95 kgTemi Rameyacher TIMBER INSPECTOR Work Phone: 1([phone] [place], [place] 3011407-30-2025 09:31-0400 Diastolic blood wkcsiyin31 mm[Hg]Temi Hanr TIMBER INSPECTOR Work Phone: [phone])[address]2025 09:31-0400 Heart rate86 /Dea Dangeloellenhenryr TIMBER INSPECTOR Work Phone: 1(425)[address]2025 09:31-0400 SaO2% (BldA) [Mass fraction]94 %Temi Dangelocornelior TIMBER INSPECTOR Work Phone: [facility]2025 09:31-0400 Systolic blood ztxqyhsq946 mm[Hg]Temi Marshall RICHA Work Phone: [facility]07-09-2025 08:41-0400 Body xudjvo662.3 cmBeto Reyes MD Work Phone: [facility] HospitalBprmrwplui17-65-8987 08:41-0400Body mass index (BMI) [Ratio]47.99 kg/f8LjiavhBeto Reyes MD Work Phone: [facility] HospitalIkhpnazbfp91-72-4899 08:41-0400Body phmgfe811.42 kgBeto Reyes MD Work Phone: [facility] HospitalNibtqlntqg15-55-6943 08:41-0400Diastolic blood yntzzpjb21 mm[Hg]Beto Reyes MD Work Phone: [phone] HospitalFcenculhgz82-50-6128 08:41-0400Heart unsb032 /min Beto Reyes MD Work Phone: [facility] HospitalRirmlwkikk12-39-4645 08:41-0400Systolic blood orjdlwod310 mm[Hg]Beto Reyes MD Work Phone: [facility] HospitalQoxndgbdvd23-27-8725 10:21-0400Body loqrdg355.3 cmBeto Reyes MD Work Phone: [facility] HospitalHosoqlflct71-97-6561 10:21-0400Body mass index (BMI) [Ratio]48.29 kg/j6SwlpuhBeto Reyes MD Work Phone: [facility] HospitalKowamgeomh72-51-1729 10:21-0400Body vejjju815.33 kgBeto Reyes MD Work Phone: [facility] HospitalAywfyjjguu80-42-1777 10:21-0400Diastolic blood plkantvn19 mm[Hg]Beto Reyes MD Work Phone: [facility] HospitalAcvbmjhfnl87-05-5146 10:21-0400Heart rate74 /min Beto Reyes MD Work Phone: [facility] Kemhqqmomr01-05-8577 10:21-0400Systolic blood mlosdzis791 mm[Hg]Beto Reyes MD Work Phone: [facility] Xpsiibziij37-67-7908 10:32-0400Body cfkogj801.3 cmAngela Lowe PA Work Phone: [facility] Zibkmamppi67-09-8098 10:32-0400Body mass index (BMI) [Ratio]45.63 kg/q8Hcqscy Lowe PA Work Phone: [facility] Bywsajdlie21-42-2259 10:32-0400Body wrnaaf672.16 kgAngela Lowe PA Work Phone: [facility] Dzvxpxrpxj12-46-9896 10:32-0400Diastolic blood udmtkljb23 mm[Hg]Pascale Lowe PA Work Phone: [facility] Yrjwtriszj60-62-9280 10:32-0400Systolic blood wauvnght871 mm[Hg]Pascale Lowe PA Work Phone: [facility] Ooifkxudic74-47-0558 10:05-0500Body heightPamela Sharda Other [employer] Other 01-05-2024 10:05-0500Body mass index (BMI) [Ratio] 44.21 kg/f8Nwtoxstacho Robin Other [employer] Other 01-05-2024 10:05-0500Body hlkqvithoex54.6 [degF]Abbey Robin Other [employer] Other 01-05-2024 10:05-0500Body umuvdh547.81 kgPatacho Robin Other [employer] [facility] Other 01-05-2024 10:05-0500Diastolic blood dnnvaail01 mm[Hg] Abbey Robin Other [facility] Other 01-05-2024 10:05-0500Respiratory rate18 /minKenntacho Robin Other [employer] Other 01-05-2024 10:05-6143ZhL5% (BldA) [Mass fraction]95 % Abbey Robin Other [employer] Other 01-05-2024 10:05-0500Systolic blood tpldkkbu052 mm[Hg] Abbey Robin Other [employer] Other 07-28-2023 10:30-0400Body heightMarisol Zelaya Other [employer] Other 07-28-2023 10:30-0400Body mass index (BMI) [Ratio] 45.33 kg/u9BgdhusMarisol Zelaya Other [employer] Other 07-28-2023 10:30-0400Body kstskcvsaty89.6 [degF]Marisol Zelaya Other [employer] Other 07-28-2023 10:30-0400Body .26 kgMarisol Zelaya Other [employer] Other 07-28-2023 10:30-0400Diastolic blood qtdbyvrf38 mm[Hg] Marisol Zelaya Other [employer] Other 07-28-2023 10:30-0400Respiratory rate18 /minMarisol Zelaya Other [employer] Other 07-28-2023 10:30-1713JaR6% (BldA) [Mass fraction]98 % Marisol Zelaya Other [employer] Other 07-28-2023 10:300400Systolic blood kmsfiubm524 mm[Hg] Marisol Nathalie Other [employer] Other Encounters Encounter DateEncounter TypeCare ProviderFacilityStart: 07-22-2025 End: 56-12-9187Ikwfla outpatient new 45 minutesKyle Michelle Stout APRN-MATERIAL PLANNER Work Phone: [facility] Internal Medicine - Family MedicineComment on above:Primary hypertension (Primary Dx); Mixed hyperlipidemia; Chronic pain syndrome under treatment with controlled substance agreement; Blood tests for routine general physical examination; Class 3 severe obesity due to excess calories without serious comorbidity with body mass index (BMI) of 45.0 to 49.9 in adult (CMS-HCC); Degeneration of intervertebral disc of lumbar region with discogenic back pain and lower extremity pain; Neuropathy; Obstructive sleep apnea; Dandruff in adultStart: 07-22-2025 End: 35-70-6785Bfakskoo examinationKyle Michelle Stout APRN-MATERIAL PLANNER Work Phone: [facility] [employer] SystemStart: 07-22-2025 End: 07-83-7158afutyiewzbAMEU [facility] Ambulatory PPGStart: 06-73-9576Hwhjmdlpm for general adult medical examination without abnormal findingsKYLE Michelle [facility] Ambulatory PPGStart: 07-15-2025 End: 68-62-4248kmtrfeokonDgyyojpj Rohrbacher APRN Work Phone: -[facility] Centertart: 07-15-2025 End: 55-96-8030Cljdccd encounter procedureTemi Marshall APRN [facility] Work Phone: Start: 07-15-2025 End: 87-88-3549Rfnghmy encounter statusJennifer Rohrbacher TIMBER INSPECTOR [facility] Hospitaltart: 07-10-2025 End: 77-26-4460ssiqkshgejZNETRFGOWayne Hospitaltart: 07-10-2025 End: 32-09-1433vkuiboqaelIOGUSOMYWilson Healthtart: 06-24-2025 End: 60-89-9098bldcvvoumfCfbaesg Vytautas Giedraitis Facility:[facility] [place] Start: 05-13-2025 End: 28-17-8799qilisorjyoYkemyahlKennedi Marshall APRN Work Phone: [facility] Work Phone: Start: 05-13-2025 End: 12-31-7988Jedqcsv encounter procedureTemi Marshall APRN [facility] Work Phone: Start: 05-07-2025 End: 08-10-4863XxcgzpFstwuy H Timmis MD Work Phone: NOP[facility] OtolaryngologyComment on above:Rhinitis medicamentosaStart: 04-22-2025 End: 36-38-9874kccpwihgegYtvaozx Vytautas Giedraitis MDFacility:[facility] Start: 04-17-2025 End: 28-44-4394nugnulmgwcMbhhyuezJuan J Marshall APRN Work Phone: [facility] Work Phone: Start: 04-17-2025 End: 67-97-1770Bqlojie encounter procedureTemi Marshall APRN [facility] Work Phone: Start: 29-74-8914Nch-patient / Non-visitTifcobalt rehabilitation (tbi) hospitaly [facility] Neurology Work Phone: Start: 03-27-2025 End: 38-90-0613Ejyksg flowsAris Reyes MD Work Phone: [facility] CI ENTStart: 03-27-2025 End: 74-60-5301Ouacpy flowsheetHimelissa Reyes MD Work Phone: [facility] CI ENTStart: 03-27-2025 End: 10-25-8384Cmbqka outpatient visit 15 minutesHimelissa Reyes MD Work Phone: [facility] CI ENTComment on above:Bilateral impacted cerumen (Primary Dx); Rhinitis medicamentosaStart: 03-27-2025 End: 03-95-0320jzzonvykdzVCSABV H TIMMISNot AvailableStart: 03-07-2025 End: 07-68-2328brqowfylfjJLIJGFD P HOUSEFacility:[facility] ClinicStart: 02-21-2025 ambulatoryRaymond FullerFacility:[facility] HospitalStart: 02-20-2025 End: 02-74-5762Yztpfy Casper Reyes MD Work Phone: [facility] CI ENTStart: 02-20-2025 End: 39-16-2551Bmeocw flowsheetHimelissa Reyes MD Work Phone: [facility] CI ENTStart: 02-20-2025 End: 86-30-0521Rrxcqs outpatient new 45 minutesHimelissa Reyes MD Work Phone: [facility] CI ENTComment on above:Rhinitis medicamentosa (Primary Dx); Bilateral impacted cerumenStart: 02-20-2025 End: 91-67-0516sagyfwhoqfXHFJNW H PRAVEENMISNot AvailableStart: 02-06-2025 End: 56-10-9264Pqswne outpatient new 30 minutesBlair Gan SECURITY OPERATIONS CENTER OPERATOR Work Phone: [facility] PCF ORTHOComment on above:Carpal tunnel syndrome of left wrist; Carpal tunnel syndrome of right wristStart: 02-06-2025 End: 29-20-4109unjftorxvxBKCNJ T OLSENNot AvailableStart: 02-06-2025 End: 78-41-4977Jhyced flowsheetBlair Gan SECURITY OPERATIONS CENTER OPERATOR Work Phone: [facility] ORTHOStart: 02-06-2025 End: 56-03-4766Cxumfl flowsheetGrant Joseph Gan SECURITY OPERATIONS CENTER OPERATOR Work Phone: NOSS ORTHOStart: 76-75-8572fxjejexuhbNWECKFX P HOUSEFacility:[facility] ClinicStart: 01-03-2025 End: 68-24-6864BobmjqIcoorx Lowe PA Work Phone: ana BELLEVUEComment on above:Chronic bilateral low back pain, unspecified whether sciatica presentStart: 12-03-2024 End: 54-93-4748Lchvzz flowsheetAngela Lowe PA Work Phone: ana BELLEVUEStart: 12-03-2024 End: 10-57-6517Dcitgv flowsheetAngela Lowe PA Work Phone: ana BELLEVUEStart: 12-03-2024 End: 12-60-6562cnqxlmpccdHOCCZU LOWENot AvailableStart: 11-28-2024 End: 06-77-4139Coxybgjvq encounterCoadolph Eid OT Work Phone: noms CI PTComment on above:re: referral for FCE; re: FCEStart: 11-15-2024 End: 56-21-2553ugxlkuvnfwQDGJIWE P HOUSEFacility:[facility] HospitalStart: 11-01-2024 End: 29-71-6392BlpwxdFcnjvf Benedict MD Work Phone: ana BELLEVUEComment on above:Low back pain, unspecified back pain laterality, unspecified chronicity, unspecified whether sciatica presentStart: 33-20-1917ulswhokshkIN CHARLES P HOUSEFacility:[facility] ClinicStart: 08-09-2024 End: 66-50-1093frippkobwzIO CHARLES P HOUSEFacility:[facility] ClinicStart: 07-24-2024 End: 95-68-6425Mtufwjwcni and management of inpatientCHARLES P HOUSEProMedica Atascosa HospitalStart: 07-19-2024 End: 25-01-0376Blojzs outpatient visit 25 minutesAngela Lowe PA Work Phone: NOFH [place] STATE ROUTEComment on above:Carpal tunnel syndrome on both sides (Primary Dx); Chronic bilateral low back pain, unspecified whether sciatica present; Lumbar disc herniationStart: 07-19-2024 End: 26-63-1018sehyqmdvmaRGHWMD LOWENot AvailableStart: 07-17-2024 End: 28-67-9704Gsthyv Tomasz Patrick MD Work Phone: NOT[facility] ROUTEStart: 07-17-2024 End: 51-47-1682Txaycd Tomasz Patrick MD Work Phone: NOQQ [facility] STATE ROUTEStart: 07-17-2024 End: 01-58-3798bicxfmnugqDCSUMK BENEDICTDev AvailableStart: 07-17-2024 End: 95-80-8280Ovzuztt encounter procedureSdiamante Patrick MD Work Phone: NOJE [place] STATE ROUTEComment on above:Lumbar radiculopathy (Primary Dx); Low back pain, unspecified back pain laterality, unspecified chronicity, unspecified whether sciatica presentStart: 05-24-2024 End: 73-54-8436Vncukn Tomasz Patrick MD Work Phone: NOM[facility] STATE ROUTEStart: 05-24-2024 End: 32-80-6408Nogadd Tomasz Patrick MD Work Phone: NOXO [facility] STATE ROUTEStart: 05-24-2024 End: 18-15-5703Osxocna encounter Mariola Patrick MD Work Phone: NOM[facility] STATE ROUTEComment on above:Carpal tunnel syndrome on both sides (Primary Dx)Start: 05-24-2024 End: 80-67-3070oudhinlewmXAKUYQ BENEDICTNot AvailableStart: 04-18-2024 End: 21-50-8396tjvhysrxwyYUAZDW LOWENot AvailableStart: 09-23-2023 End: 75-75-4490oulitdwycpOhlywg Dymond Other [facility] Other Start: 33-00-9577Brkrsp outpatient visit 15 minutes Abbey RobinFP[facility] ClydeStart: 04-15-2023 End: 06-02-6135tpmbilrproEqcesv Bailey Other [facility] Other Start: 54-21-9199Iuyvdp outpatient new 20 minutes Marisol ZelayaFPG [facility] Care ClydeStart: 02-15-2023 End: 16-81-6811xptibnyvmuKINQVNBOJUNY LAKSHMIPATHY .Facility:M6Vrzpj: 02-01-2023 End: 56-66-7975lyjjuylobjLKKIUKPWIZCK LAKSHMIPATHY .Facility:L9Iyxbe: 01-06-2023 End: 45-09-3309gyhofrfgfiZYRM CONWAY .Facility:S7Xtcij: 10-06-2022 End: 02-37-0076qdfhomjscbOK LUCY S GIL .Facility:F7Nmeeb: 09-02-2022 ambulatoryDR LUCY S GIL .Facility:G3Yiuow: 08-26-2022 End: 06-84-5739gaeogtlvbmXZ LUCY S GIL .Facility:E5Vksww: 08-18-2022 ambulatoryDR LUCY S GIL .Facility:O8Gmayq: 08-03-2022 End: 12-51-4160cmdlccgfpfGR LUCY S GIL .Facility:B8Oaosi: 07-22-2022 End: 09-79-1114sewefhwgpnOZ LUCY S GIL .Facility:U2Sqdad: 04-22-2022 End: 22-59-2872cvdpjcqpjiZH LUCY S GIL .Facility:A6Nzdsq: 04-15-2022 End: 49-84-6499wezqvipuzaTS LUCY S GIL .Facility:F5Tvepz: 03-16-2022 End: 52-01-5515fstbkiwgmcVC LUCY S GIL .Facility:V7Zlwld: 03-09-2018 AmbulatoryMIKHAIL TABITHAFacility:1532Start: 13-76-5719KphlacropvEQMLYFQ KIRNUS Facility:1532 Procedures DateProcedureProcedure DetailPerforming ClinicianStart: 18-38-0416Tgyki depression screening assessmentMaximo Stout 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 Phone: Start: 66-32-5015Uqmwo conduction studies 9-10 studies Maurizio Patrick MD Work Phone: Start: 33-40-8058Bpijg conduction studies 11-12 studiesMaurizio Patrick MD Work Phone: Plan of Treatment DateCare ActivityDetailAuthorStart: 74-17-3672FZaA,Tdap and Td Vaccines (2 - Td or Tdap)DTaP,Tdap and Td Vaccines (2 - Td or Tdap)[facility] SystemStart: 36-68-1354Eqooh BMI ScreeningAdult BMI ScreeningProThe [facility] Systemca Health SystemStart: 64-18-1438Ijqkhrhxzb ScreeningDepression ScreeningProThe Metrohealth Systemca Health SystemStart: 12-74-5814Vbiwxkh ScreeningTobacco ScreeningProOur [facility] SystemStart: 08-20-2025 End: 34-04-0256Qaazfyknbtzh consultation with ozvcuww1808/20/2025 2:40 PM EST Telemedicine [facility] [address] [place] [address] Maximo Stout, TIMBER INSPECTOR-MATERIAL PLANNER [address], [facility] [address] [place] [address] [facility] - Family MedicineStart: 78-39-7962NXCJC- 19 Vaccine ( season)COVID-19 Vaccine ( season)[facility] SystemStart: 89-32-5079Vxusodttp vaccinationInfluenza VaccineProOur [facility] Of [facility] SystemStart: 04-04-2025 End: 19-17-7306Mchmnvr encounter irwxznwkg79/17/2025 11:00 AM EDT Office Visit LASHON NAYLOR [address] [place] [address] Pascale Souza PA [address] [place] [address] LASHON GRIGSBYtart: 03-27-2025 End: 94-49-8114Zkobiar encounter ratokjuor07/09/2025 8:40 AM EDT Office Visit [facility] [address] [place] [address] Beto Reyes MD [address] [place] [address] ArrivedNOMS CI ENTComment on above:ArrivedStart: 02-22-2025 End: 00-76-7510Ukkxent encounter fwzeuzzbn83/06/2025 9:00 AM EDT Office Visit [facility] [address] [place] [phone] Tracie Montiel DO [address] [place], [place] [id number] [facility] NB ORTHOStart: 02-20-2025 End: 90-44-4327Deemkef encounter yxthtgnfq64/04/2025 10:30 AM EDT Office Visit [facility] [address] [place] [address] Beto Reyes MD [address] [place] [address] ArrivedNOMS CI ENTComment on above:ArrivedStart: 02-06-2025 End: 08-37-9953Doqdmxf encounter xdvwirsuc89/21/2025 2:30 PM EDT Office Visit [facility] [address] [facility] [place] [address] Blair Gan, SEC[employer]ENTER OPERATOR [address] [place] [address] ArrivedNOMS PCF ORTHOComment on above:ArrivedStart: 12-03-2024 End: 15-57-7819Bbyutnu encounter procedureANA WALTEVUEComment on above:Arrived Start: 10-10-2024 End: 88-53-5735Baqulpz encounter ooqrlhpft53/22/2025 1:40 PM EST Office Visit [facility] [address] [place] [address] Pascale Souza PA [address] [place] [address] [facility] R[facility]TEStart: 2024 Administration of varicella zoster vaccineZoster (Shingles) Vaccine (1 of 2) [facility] SystemStart: 07-19-2024 End: 92-14-2032Cskzmgi encounter kyxbepitg18/31/2024 10:40 AM EDT Office Visit [facility] [address] [place] [address] Pascale Souza PA [address] [place] [address] [facility] [place] [facility] R[facility]TEStart: 06-19-2024 End: 98-98-6506Twuqgod encounter atoyarcsx71/01/2024 1:00 PM EDT Office Visit [facility] [address] [place] [address] Pascale Souza PA [address] [place] [address] [facility] R[facility]TEStart: 06-13-2024 End: 80-28-2685Sphdbcp encounter lfuvekyel12/25/2024 1:00 PM EDT Procedure Visit [facility] [address] [facility] [address] [place] [address] Maurizio Patrick MD [address] [place] [address] [facility] CARLOS NEUROLOGYStart: 05-24-2024 End: 68-49-7389Qamnfaf encounter fqxbumxka69/05/2024 8:30 AM EDT Procedure Visit [facility] [facility] [address] [place] [address] Maurizio Patrick MD [address] [place] [address] ArrivedNOVT [place] [facility] ROUTEComment on above: ArrivedStart: 15-57-1759Uxjsy BMI Follow Up PlanAdult BMI Follow Up Plan [facility] End: 99-28-4462PKG panel - Blood by Automated countCBC without diff Lab Routine Blood tests for routine general physical examination 1 Occurrences starting 07/22/2025 until 07/22/2026[facility] HospitalIAMINTOIT SystemComment on above:1 Occurrences starting 07/22/2025 until 07/22/2026BC panel - Blood by Automated countCBC without diff Lab Routine Blood tests for routine general physical examination 07/22/2025 10:59 AM Get-n-Post SystemComprehensive metabolic 1999 panel - Serum or PlasmaOhiohealth Doctors Hospital End: 64-08-2437Cfvbqbhrlrtjc metabolic 1999 panel - Serum or PlasmaComprehensive metabolic panel Lab Routine Blood tests for routine general physical examination 1 Occurrences starting 07/22/2025 until 07/22/2026[facility] CenterAdmitSee SystemComment on above:1 Occurrences starting 07/22/2025 until 07/22/2026 Comprehensive metabolic 2000 panel - Serum or PlasmaComprehensive metabolic panel Lab Routine Blood tests for routine general physical examination 07/22 10:59 AM Get-n-Post SystemEMG 2 ExtremitiesEMG 2 Extremities Neurology Routine Carpal tunnel syndrome on both sides Ordered: 05/24/2024[facility] [employer] Work Phone: comment on above:Ordered: 05/24/2024 End: 15-11-1484Ooyod 1995 panel - Serum or PlasmaLipid profile Lab Routine Blood tests for routine general physical examination 1 Occurrences starting 07/22/2025 until 07/22/2026[facility] CenterAdmitSee SystemComment on above:1 Occurrences starting 07/22/2025 until 07/22/2026Lipid 1996 panel - Serum or PlasmaLipid profile Lab Routine Blood tests for routine general physical examination 07/22/2025 10:59 AM Get-n-Post [facility] HospitalPatient EducationLow back pain in adultsDayton Osteopathic Hospital Work Phone: End: 05-81-7172Lrmtydivt specific antigen screenProstatic specific antigen screen Lab Routine Blood tests for routine general physical examination 1 Occurrences starting 07/22/2025 until 07/22/2026[facility] Work Phone: Comment on above:1 Occurrences starting 07/22/2025 until 07/22/2026Prostatic specific antigen screenProstatic specific antigen screen Lab Routine Blood tests for routine general physical examination 1 09/21/2024 10:59 AM MailFrontierLancaster Municipal HospitalIAMINTOIT [facility] End: 93-25-0535Bkuxfkg profile includes TSH AB0Vdaryiv profile includes TSH FT4 Lab Routine Blood tests for routine general physical examination 1Occurrences starting 07/22/2025 until 07/22/2026[facility] Double Fusion [facility] HospitalComment on above:1 Occurrences starting 07/22/2025 until 07/22/2026Thyroid profile includes TSH FT4 Thyroid profile includes TSH FT4 Lab Routine Blood tests for routine general physical examination 07/22/2025 10:59 AM [facility] Immunizations Immunization DateImmunizationNotesCare NhyhfpuaIbiowrfw75-63-8718dlcxljerw virus vaccine, unspecified formulationMaximo Stout 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 Phone: [facility] Payers DatePayer CategoryPayerPolicy [id number] ..[id number] 2024Medicare (Managed Care)[employer] MEDICARE ..[id number] 2024MedicareMedicare HMO [employer] MEDICARE [id number] 2.16840.1.550786.3.57[id number] 2.16840.1.426994.3.57[id number] 2.16840.1.879960.3.57[id number] 2.16840.1.250454.3.57[id number] 2.16840.1.023014.3.579.[id number] 2.16840.1.180623.3.579.[id number] 2.16840.1.371226.3.579.2.06080-59-8549Dhuehid5282695 2.16840.1.458941.3.579.[id number] 2.16840.1.730148.3.579.2.[id number] 2.16840.1.387969.3.579.[id number] 2.840.1.114147.3.579.2.97213-66-1275Jordibm9549988 2.840.1.906525.3.579.2.43494-32-5361Vhmgjaz3632095 2.840.1.225890.3.579.2.82878-81-0581Jfwyvqd15392445 2.840.1.185801.3.57[id number] 2..1.574456.3.579.2.787385-62-0295Pmyflym70672709 2..1.028632.3.579.2.097016-80-7143Pydzovv5321823 2.0.1.513241.3.579.2.969184-73-6875Vwkowvk5127357 2.0.1.245321.3.579.2.103860-33-8500Lafzwmi7798700 2..1.804199.3.579.2.311850-02-8721Utslygb4776302 2..1.365733.3.579.2.653782-56-7722Ptxavkb3990386 2.0.1.346552.3.579.2.218448-30-4088Omadlqv3397533 2..1.397795.3.579.2.9502[id number] 2.840.1.635224.3.579.2.9[id number] 2.0.1.746457.3.579.2.[id number] 2.16840.1.212537.3.579.2.277432-87-9953Zyrihrx30668570 2.840.1.029908.3.579.2.99799-30-4781Ypfitwq65101002 2.16.840.1.036458.3.579.2.82207-28-9283Vkhxabb57539146 2.840.1.861910.3.579.2.63467-88-7480Ktauujl71042457 2.840.1.150284.3.579.2.38590-15-1337Wtohupt97205749 2.840.1.310559.3.579.2.47563-73-9644Omfaxqe51609109 2.840.1.911464.3.579.2.59199-75-9775Yvyyjjk70720233 2.840.1.536341.3.579.2.53355-42-2968Hpcjkhr64390242 2.0.1.876105.3.579.2.718 [id number] 2.0.1.118433.19Private Health [id number]-[id number] Social History DateTypeDetailFacilityUnknown if ever smokedNorth [facility] Other Start: 10-30-2020 End: 78-90-6868Jch Assigned At BirthLancaster Municipal HospitalBrainpark Buffalo Psychiatric Centertart: 04-11-2024 Tobacco smoking status NHISNever smoked tobaccoNOMS HealthcareStart: 10-24-2018 End: 90-78-0822Fzvsdtk use and exposureSmokeless tobacco non-userNOMS Healthcare Start: 04-11-2024 End: 28-64-9028Sfihwztmj beverage intakeLifetime non-drinker (finding)[facility] HealthcareStart: 10-30-2020 End: 13-88-1324Dvcrzho of Social functionAtrium Healthtart: 23-69-8836Wnr assigned at birthNot on fileSALT LAKE [facility]AVIORAL [facility]ALTH [facility] HealthcareStart: 10-24-2018 End: 82-77-2985Uvkxuod smoking status NHISEx-smokerNOMS HealthcareHistory of tobacco useCurrent smokerNOMS HealthcareHistory of tobacco useCigarette Smoker [facility] HealthcareStart: 02-05-2025 End: 44-71-1333Fycjunybb beverage intakeEx-drinker (finding)[facility] Healthcare Start: 34-88-9403NsdCxxb (finding)[facility], Cancer Centertart: 98-05-4744Yaq Assigned At [facility] Centertart: 53-47-0478Fyykdwndu beverage intakeCurrent non-drinker of alcohol (finding) [facility] HospitalMarqui SystemHas the LawDeck, oil, or water [employer] threatened to shut off services in your home in past 12MoNoProEvergreen Medical Center Double Fusion SystemHow often do you have a drink containing alcohol?NeverMetroHealth [facility] Medical Center Double Fusion SystemHow many standard drinks containing alcohol do you have on a typical day?Not on file [facility] HospitalSCHEDit Goals DatePatient GoalDesired Activity/StatePersonal health goalComment on above: Evaluation of progress towards goal: In progress: Return home when able to DC. Clinical Notes 04-15-2022 to 07-29-2025 Note Date & VevcIeemOmsxztuu19-60-8162 NoteEntered by MILAN NAILS DO on July 29, 2025 11:13:29 EST From: MILAN NAILS DO To: [id number] Sent: 07/29/2025 11:13:29 EST Subject: Medication Management Submitted: Complete:DULoxetine (DULoxetine 60 mg oral delayed release capsule) Signed by MILAN NAILS DO 07/29/2025 11:13:00 EST Approved with modifications: DULoxetine (duloxetine 60 mg capsule,delayed release) TAKE 1 CAPSULE BY MOUTH ONCE DAILY Qty: 30 cap(s) Days Supply: 30 Refills: 5 Substitutions Allowed Route To Pharmacy - [id number] From: [id number] To: MILNA NAILS DO Sent: July 29, 2025 8:15:48 AM SLOT MANAGER Subject: Medication Management Due: 2025 12:10:43 AM SLOT MANAGER On Hold Pending Signature Drug: DULoxetine (DULoxetine 60 mg oral delayed release capsule), TAKE 1 CAPSULE BY MOUTH DAILY Quantity: 30 cap(s) Days Supply: 30 Refills: 5 Substitutions Allowed Notes from Pharmacy: Dispensed Drug: DULoxetine (DULoxetine 60 mg oral delayed release capsule), TAKE 1 CAPSULE BY MOUTHONCE DAILY Quantity: 30 cap(s) Days Supply: 30 Refills: 5 Substitutions [facility]owed [id number] History of Present illness Narrative* TRINA Pak - 07/22/2025 10:20 AM EST IM PROGRESS NOTE Patient - Riccardo Hale Age - 49 y.o. - 1975 Subjective The following portions of the patient's history were reviewed and updated as appropriate: allergies, current medications, past family history, past medical history, past social history, past surgicalhistory and problem list. He is here today to establish care. He has a history of hypertension and hyperlipidemia. He states that he does take his blood pressure at home and it has been well controlled. He does take his medications as prescribed. 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 He has chronic pain that is maintained on Bruce and Lyrica as well as NSAIDs. That is being managed by pain management. He does have a controlled substance agreement signed with pain management. He also sees neurology for this issue. The sometimes ambulates with a cane depending on pain and steadiness of gait. He also has sleep apnea. His machine works but met its life expectancy. He states it has been over 20 years since he has had a sleep study completed. Previous provider said he will need another sleep study before getting another machine. Also, he does have an umbilical hernia that he did see General surgery for I would like to get thatfixed. General surgery states they will not perform the surgery until he is less than 40 BMI. Patient previously started semaglutide to help with weight loss and ended up with a small bowel obstruction. He has since started on Adipex. This was started from previous provider and today started his 3rd month. His initial BMI was 49 with weight over 360 lb. He states he has lost a significant amount of weight the last 2 months. Hypertension This is a chronic problem. The current episode started more than 1 year ago. The problem is unchanged. The problem is controlled. Pertinent negatives include no anxiety, blurred vision, chest pain, headaches, malaise/fatigue, orthopnea, palpitations, peripheral edema, PND or shortness of breath. Agents associated with hypertension include NSAIDs and decongestants. Risk factors for coronary arterydisease include dyslipidemia, obesity and male gender. Past treatments include PRAFUL inhibitors and beta blockers. The current treatment provides significant improvement. There are no compliance problems. Review of Systems Constitutional: Negative for activity change, appetite change, fatigue, fever and malaise/fatigue. HENT: Negative for hearing loss, tinnitus and trouble swallowing. Dandruff Eyes: Negative for blurred vision and visual disturbance. Respiratory: Negative for cough, chest tightness, shortness of breath and wheezing. Cardiovascular: Negative for chest pain, palpitations, orthopnea, leg swelling and PND. Gastrointestinal: Negative for abdominal pain, constipation, diarrhea, nausea and vomiting. Hernia Genitourinary: Negative for difficulty urinating. Musculoskeletal: Positive for arthralgias, back pain, gait problem and myalgias. Skin: Positive for rash. Neurological: Positive for numbness. Negative for dizziness, syncope, speech difficulty, weakness, light-headedness and headaches. Psychiatric/Behavioral: Positive for sleep disturbance. Exam BP 130/90 (BP Site: Left Arm, BP Postition: Sitting, BP CUFF SIZE: L (13-17 inches)) Pulse 69 Temp 36.7 C (98.1 F) (Tympanic) Resp 18 Ht 175.3 cm (5' 9.02 ) Wt (!) 141.8 kg (312 lb 9.6 oz) SpO2 95% BMI 46.14 kg/m Physical Exam Vitals and nursing note reviewed. Constitutional: General: He is not in acute distress. HENT: Head: Normocephalic and atraumatic. Mouth/Throat: Mouth: Mucous membranes are moist. Eyes: Conjunctiva/sclera: Conjunctivae normal. Pupils: Pupils are equal, round, and reactive to light. Cardiovascular: Rate and Rhythm: Normal rate and regular rhythm. Pulses: Normal pulses. Pulmonary: Effort: Pulmonary effort is normal. Breath sounds: Normal breath sounds. Abdominal: General: Bowel sounds are normal. There is no distension. Palpations: Abdomen is soft. Tenderness: There is no abdominal tenderness. Hernia: A hernia is present. Hernia is present in the umbilical area. Musculoskeletal: Cervical back: Normal range of motion. Right lower leg: No edema. Left lower leg: No edema. Skin: General: Skin is warm and dry. Capillary Refill: Capillary refill takes less than 2 seconds. Neurological: General: No focal deficit present. Mental Status: He is alert and oriented to person, place, and time. Psychiatric: Mood and Affect: Mood normal. Behavior: Behavior normal. Meds Current Outpatient Medications: albuterol (PROVENTIL HFA;VENTOLIN HFA) 90 mcg/actuation inhaler, Inhale 2 puffs every 6 (six) hoursas needed for wheezing., Disp: , Rfl: DULoxetine (CYMBALTA) 60 mg capsule, Take 90 mg by mouth daily., Disp: , Rfl: fexofenadine (LEIGH) 180 mg tablet, Take 1 tablet (180 mg total) by mouth in the morning., Disp: , Rfl: HYDROcodone-acetaminophen (NORCO) 5-325 mg per tablet, Take 1 tablet by mouth every 6 (six) hours as needed for pain. Max Daily Amount: 4 tablets, Disp: , Rfl: lisinopril (PRINIVIL,ZESTRIL) 20 mg tablet, Take 20 mg by mouth daily., Disp: , Rfl: meloxicam (MOBIC) 15 mg tablet, Take 15 mg by mouth daily., Disp: , Rfl: omeprazole (PriLOSEC) 40 mg capsule, Take 40 mg by mouth daily., Disp: , Rfl: phentermine (ADIPEX-P) 37.5 mg tablet, Take 1 tablet (37.5 mg total) by mouth every morning before breakfast., Disp: , Rfl: pregabalin (LYRICA) 200 mg capsule, Take 1 capsule (200 mg total) by mouth 3 (three) times a day., Disp: , Rfl: propranoloL (INDERAL) 80 mg tablet, Take 1 tablet (80 mg total) by mouth in the morning and 1 tablet (80 mg total) before bedtime., Disp: , Rfl: SUMAtriptan (IMITREX) 100 mg tablet, Take 1 tablet (100 mg total) by mouth once as needed., Disp: ,Rfl: tiZANidine (ZANAFLEX) 4 mg tablet, Take 4 mg by mouth 2 (two) times a day., Disp: , Rfl: ketoconazole (NIZORAL) 2 % shampoo, Apply 1 Application topically 2 (two) times a week. Apply to damp skin, lather, leave on 5 minutes, and rinse, Disp: 120 mL, Rfl: 0 Lab Results No visits with results within 1 Month(s) from this visit. Latest known visit with results is: Admission on 07/24/2024, Discharged on 07/27/2024 Component Date Value Ref Range Status White Blood Cells 07/24/2024 11.1 (H) 4.0 - 11.0 X10E9/L Final RBC count 07/24/2024 5.52 4.10 - 5.70 X10E12/L Final Hemoglobin 07/24/2024 16.2 13.0 - 17.0 g/dL Final Hematocrit 07/24/2024 47.6 39 - 49 % Final MCV 07/24/2024 86 80 - 100 fL Final MCH 07/24/2024 29.4 27 - 34 pg Final MCHC 07/24/2024 34.0 32 - 36 g/dL Final RDW 07/24/2024 13.0 11.5 - 15.0 % Final Platelets 07/24/2024 470 (H) 150 - 450 X10E9/L Final MPV 07/24/2024 8.4 7 - 12 fL Final % neutrophils 07/24/2024 65.7 % Final % lymphocytes 07/24/2024 19.2 % Final % monocytes 07/24/2024 11.6 % Final % eosinophils 07/24/2024 2.5 % Final % Basophils 07/24/2024 1.0 % Final Neutrophils Absolute (A) 07/24/2024 7.3 (H) 1.5 - 6.6 X10E9/L Final Lymphocytes Absolute 07/24/2024 2.1 1.0 - 3.5 X10E9/L Final Monocytes Absolute 07/24/2024 1.3 (H) 0 - 0.9 X10E9/L Final Eosinophils Absolute 07/24/2024 0.3 0.0 - 0.4 X10E9/L Final Basophils Absolute 07/24/2024 0.1 0.0 - 0.2 X10E9/L Final Sodium 07/24/2024 135 134 - 146 mmol/L Final Potassium, Bld 07/24/2024 3.7 3.5 - 5.0 mmol/L Final Chloride 07/24/2024 104 98 - 109 mmol/L Final CO2 07/24/2024 22 22 - 32 mmol/L Final Anion gap 07/24/2024 9 5 - 15 mmol/L Final BUN 07/24/2024 13 5 - 23 mg/dL Final Creatinine 07/24/2024 1.05 0.70 - 1.20 mg/dL Final Glucose 07/24/2024 113 (H) 65 - 99 mg/dL Final Calcium 07/24/2024 10.1 8.5 - 10.5 mg/dL Final Total Protein 07/24/2024 7.9 6.0 - 8.0 g/dL Final Albumin 07/24/2024 4.3 3.2 - 5.3 g/dL Final Alkaline Phosphatase 07/24/2024 63 39 - 130 U/L Final AST 07/24/2024 23 0 - 41 U/L Final ALT 07/24/2024 25 0 - 40 U/L Final Total bilirubin 07/24/2024 1.4 (H) 0.3 - 1.2 mg/dL Final eGFR (CKD-EPI)non-race dependent 07/24/2024 87 >59 ml/min/1.73sq.m Final Lipase 07/24/2024 22 17 - 40 U/L Final Sodium 07/25/2024 138 134 - 146 mmol/L Final Potassium, Bld 07/25/2024 3.6 3.5 - 5.0 mmol/L Final Chloride 07/25/2024 110 (H) 98 - 109 mmol/L Final CO2 07/25/2024 23 22 - 32 mmol/L Final Anion gap 07/25/2024 5 5 - 15 mmol/L Final BUN 07/25/2024 12 5 - 23 mg/dL Final Creatinine 07/25/2024 0.94 0.70 - 1.20 mg/dL Final Glucose 07/25/2024 102 (H) 65 - 99 mg/dL Final Calcium 07/25/2024 8.4 (L) 8.5 - 10.5 mg/dL Final Total Protein 07/25/2024 6.3 6.0 - 8.0 g/dL Final Albumin 07/25/2024 3.7 3.2 - 5.3 g/dL Final Alkaline Phosphatase 07/25/2024 56 39 - 130 U/L Final AST 07/25/2024 16 0 - 41 U/L Final ALT 07/25/2024 21 0 - 40 U/L Final Total bilirubin 07/25/2024 0.8 0.3 - 1.2 mg/dL Final eGFR (CKD-EPI)non-race dependent 07/25/2024 >90 >59 ml/min/1.73sq.m Final Magnesium 07/25/2024 1.9 1.8 - 2.6 mg/dL Final White Blood Cells 07/25/2024 8.4 4.0 - 11.0 X10E9/L Final RBC count 07/25/2024 4.67 4.10 - 5.70 X10E12/L Final Hemoglobin 07/25/2024 13.8 13.0 - 17.0 g/dL Final Hematocrit 07/25/2024 40.5 39 - 49 % Final MCV 07/25/2024 87 80 - 100 fL Final MCH 07/25/2024 29.5 27 - 34 pg Final MCHC 07/25/2024 34.0 32 - 36 g/dL Final RDW 07/25/2024 12.9 11.5 - 15.0 % Final Platelets 07/25/2024 355 150 - 450 X10E9/L Final MPV 07/25/2024 8.6 7 - 12 fL Final % neutrophils 07/25/2024 50.8 % Final % lymphocytes 07/25/2024 32.2 % Final % monocytes 07/25/2024 11.8 % Final % eosinophils 07/25/2024 4.5 % Final % Basophils 07/25/2024 0.7 % Final Neutrophils Absolute (A) 07/25/2024 4.3 1.5 - 6.6 X10E9/L Final Lymphocytes Absolute 07/25/2024 2.7 1.0 - 3.5 X10E9/L Final Monocytes Absolute 07/25/2024 1.0 (H) 0 - 0.9 X10E9/L Final Eosinophils Absolute 07/25/2024 0.4 0.0 - 0.4 X10E9/L Final Basophils Absolute 07/25/2024 0.1 0.0 - 0.2 X10E9/L Final Sodium 07/26/2024 138 134 - 146 mmol/L Final Potassium, Bld 07/26/2024 3.4 (L) 3.5 - 5.0 mmol/L Final Chloride 07/26/2024 106 98 - 109 mmol/L Final CO2 07/26/2024 23 22 - 32 mmol/L Final Anion gap 07/26/2024 9 5 - 15 mmol/L Final BUN 07/26/2024 8 5 - 23 mg/dL Final Creatinine 07/26/2024 0.80 0.70 - 1.20 mg/dL Final Glucose 07/26/2024 83 65 - 99 mg/dL Final Calcium 07/26/2024 8.8 8.5 - 10.5 mg/dL Final Total Protein 07/26/2024 6.6 6.0 - 8.0 g/dL Final Albumin 07/26/2024 3.9 3.2 - 5.3 g/dL Final Alkaline Phosphatase 07/26/2024 57 39 - 130 U/L Final AST 07/26/2024 18 0 - 41 U/L Final ALT 07/26/2024 21 0 - 40 U/L Final Total bilirubin 07/26/2024 0.9 0.3 - 1.2 mg/dL Final eGFR (CKD-EPI)non-race dependent 07/26/2024 >90 >59 ml/min/1.73sq.m Final Magnesium 07/26/2024 2.0 1.8 - 2.6 mg/dL Final White Blood Cells 07/26/2024 8.8 4.0 - 11.0 X10E9/L Final RBC count 07/26/2024 4.84 4.10 - 5.70 X10E12/L Final Hemoglobin 07/26/2024 14.4 13.0 - 17.0 g/dL Final Hematocrit 07/26/2024 41.7 39 - 49 % Final MCV 07/26/2024 86 80 - 100 fL Final MCH 07/26/2024 29.7 27 - 34 pg Final MCHC 07/26/2024 34.5 32 - 36 g/dL Final RDW 07/26/2024 12.7 11.5 - 15.0 % Final Platelets 07/26/2024 345 150 - 450 X10E9/L Final MPV 07/26/2024 8.6 7 - 12 fL Final % neutrophils 07/26/2024 63.0 % Final % lymphocytes 07/26/2024 25.4 % Final % monocytes 07/26/2024 7.4 % Final % eosinophils 07/26/2024 3.7 % Final % Basophils 07/26/2024 0.5 % Final Neutrophils Absolute (A) 07/26/2024 5.6 1.5 - 6.6 X10E9/L Final Lymphocytes Absolute 07/26/2024 2.2 1.0 - 3.5 X10E9/L Final Monocytes Absolute 07/26/2024 0.7 0 - 0.9 X10E9/L Final Eosinophils Absolute 07/26/2024 0.3 0.0 - 0.4 X10E9/L Final Basophils Absolute 07/26/2024 0.0 0.0 - 0.2 X10E9/L Final Bedside glucose 07/25/2024 76 65 - 99 mg/dL Final Potassium, Bld 07/26/2024 3.1 (L) 3.5 - 5.0 mmol/L Final Sodium 07/27/2024 140 134 - 146 mmol/L Final Potassium, Bld 07/27/2024 4.3 3.5 - 5.0 mmol/L Final Chloride 07/27/2024 106 98 - 109 mmol/L Final CO2 07/27/2024 25 22 - 32 mmol/L Final Anion gap 07/27/2024 9 5 - 15 mmol/L Final BUN 07/27/2024 5 5 - 23 mg/dL Final Creatinine 07/27/2024 0.83 0.70 - 1.20 mg/dL Final Glucose 07/27/2024 103 (H) 65 - 99 mg/dL Final Calcium 07/27/2024 8.8 8.5 - 10.5 mg/dL Final Total Protein 07/27/2024 6.3 6.0 - 8.0 g/dL Final Albumin 07/27/2024 3.8 3.2 - 5.3 g/dL Final Alkaline Phosphatase 07/27/2024 53 39 - 130 U/L Final AST 07/27/2024 15 0 - 41 U/L Final ALT 07/27/2024 16 0 - 40 U/L Final Total bilirubin 07/27/2024 1.0 0.3 - 1.2 mg/dL Final eGFR (CKD-EPI)non-race dependent 07/27/2024 >90 >59 ml/min/1.73sq.m Final Magnesium 07/27/2024 2.1 1.8 - 2.6 mg/dL Final White Blood Cells 07/27/2024 9.3 4.0 - 11.0 X10E9/L Final RBC count 07/27/2024 4.64 4.10 - 5.70 X10E12/L Final Hemoglobin 07/27/2024 13.4 13.0 - 17.0 g/dL Final Hematocrit 07/27/2024 40.2 39 - 49 % Final MCV 07/27/2024 87 80 - 100 fL Final MCH 07/27/2024 28.9 27 - 34 pg Final MCHC 07/27/2024 33.4 32 - 36 g/dL Final RDW 07/27/2024 12.8 11.5 - 15.0 % Final Platelets 07/27/2024 351 150 - 450 X10E9/L Final MPV 07/27/2024 8.7 7 - 12 fL Final % neutrophils 07/27/2024 60.9 % Final % lymphocytes 07/27/2024 26.9 % Final % monocytes 07/27/2024 9.2 % Final % eosinophils 07/27/2024 2.4 % Final % Basophils 07/27/2024 0.6 % Final Neutrophils Absolute (A) 07/27/2024 5.7 1.5 - 6.6 X10E9/L Final Lymphocytes Absolute 07/27/2024 2.5 1.0 - 3.5 X10E9/L Final Monocytes Absolute 07/27/2024 0.9 0 - 0.9 X10E9/L Final Eosinophils Absolute 07/27/2024 0.2 0.0 - 0.4 X10E9/L Final Basophils Absolute 07/27/2024 0.1 0.0 - 0.2 X10E9/L Final Potassium, Bld 07/26/2024 3.3 (L) 3.5 - 5.0 mmol/L Final Other Testing No results found. ASSESSMENT & PLAN 1. Primary hypertension (Primary) -normotensive -get metabolic panel -continue lisinopril and atenolol -continue to monitor blood pressure daily 2. Mixed hyperlipidemia -not on medication at this time -get lipid panel 3. Chronic pain syndrome under treatment with controlled substance agreement -controlled substance agreement with pain management who manages his Bruce and Lyrica for chronic back pain. 4. Blood tests for routine general physical examination - Prostatic specific antigen screen; Future - Thyroid profile includes TSH FT4; Future - Lipid profile; Future - Comprehensive metabolic panel; Future - CBC without diff; Future - CBC without diff - Comprehensive metabolic panel - Lipid profile - Thyroid profile includes TSH FT4 - Prostatic specific antigen screen 5. Class 3 severe obesity due to excess calories without serious comorbidity with body mass index (BMI) of 45.0 to 49.9 in adult ([facility]) Body mass index is 46.14 kg/m . Weight change: Weight loss of 49 lb over the last 2 months. Patient noted to have elevated BMI and the following intervention(s) were applied: -Discussed current weight today. -Consider healthy food choices, portion control. -Avoid sugary beverages and high concentrated sweets. -Routine exercise regimen encouraged. -continue Adipex OARRS/MAPPS was reviewed by Maximo Stout, RICHA-MATERIAL PLANNER today. There was not any indication of medication diversion, or non-compliance. 6. Degeneration of intervertebral disc of lumbar region with discogenic back pain and lower extremity pain -follows with pain management 7. Neuropathy -follows with Neurology 8. Obstructive sleep apnea -compliant with PAP. -states hold CPAP machine has morning that is states that has met the life expectancy. -referral to pulmonology for possible sleep study and new CPAP machine. - Ambulatory referral to Pulmonology (Non-[facility]); Future 9. Dandruff in adult -worsening dandruff in his attempt to use wcuk-ywu-prglzmm shampoos without success. - ketoconazole (NIZORAL) 2 % shampoo; Apply 1 Application topically 2 (two) times a week. Apply to damp skin, lather, leave on 5 minutes, and rinse Dispense: 120 mL; Refill: 0 Return in about 4 weeks (around 08/19/2025) for Video Visit Acceptable weight check adipex. A Magallanes [facility] Office: [phone] This note is dictated with the use of M*Modal. Please note that this dictation was completed with computer voice recognition software. Quite often unanticipated grammatical, syntax, homophones, and other interpretive errors are inadvertently transcribed by the computer software. Please disregard these errors. Please excuse any errors that have escaped final proofreading. TRINA Pak 07/22/25 1201 documented in this encounterLancaster Municipal HospitalBrainpark [facility] HospitalPsmdkz96-83-0695 NoteEntered by MILAN NAILS DO on June 28, 2025 15:43:05 EDT From: MILAN NAILS DO To: [facility] Sent: 06/28/2025 15:43:05 EDT Subject: Medication Management Submitted: Complete:omeprazole (omeprazole 20 mg oral delayed release capsule) Signed by MILAN NAILS DO 06/28/2025 15:43:00 EDT Approved with modifications: omeprazole (omeprazole 20 mg capsule,delayed release) TAKE 1 CAPSULE BY MOUTH DAILY Qty: 30 cap(s) Days Supply: 30 Refills: 5 Substitutions Allowed Route To Pharmacy - [facility] From: [facility] To: JAQUIMILAN Carol TRACY Sent: June 28, 2025 2:05:55 PM CDT [...] Substitutions [facility] Evaluation note* Diagnosis Onset Date Resolution Status Admit Date Chronic bilateral low back pain acuteJuly 2024 9:22amFormer smokeracuteJuly 2024 9:22amMigraines acuteJuly 2024 9:22amMorbid obesity with BMI of 45.0-49.9, adultacuteJuly 2024 9:22amGERD (gastroesophageal reflux disease)chronicJuly 2024 9:22amHTN (hypertension)chronicJuly 2024 9:22amOSA on CPAPchronicJuly 2024 9:22amMorbid obesity with BMI of 45.0-49.9, adultacuteAugust 2024 8:54amHTN (hypertension)chronicAugust 2024 8:54amOSA on CPAPchronic [place] 2024 8:54am [facility] Work Phone: 1(239) 708-745707-30-2025 Evaluation note* Diagnosis Onset Date Resolution Status Admit Date Chronic bilateral low back pain acuteJuly 2024 9:22amFormer smokeracuteJuly 2024 9:22amMigraines acuteJuly 2024 9:22amMorbid obesity with BMI of 45.0-49.9, adultacuteJuly 2024 9:22amGERD (gastroesophageal reflux disease)chronicJuly 2024 9:22amHTN (hypertension)chronicJuly 2024 9:22amOSA on CPAPchronicJuly 2024 9:22amMorbid obesity with BMI of 45.0-49.9, adultacuteAugust 2024 8:54amHTN (hypertension)chronicAugust 2024 8:54amOSA on CPAPchronic May 13, 2025 8:54amAnxietyacuteOctober 2024 8:24amChronic bilateral low back painacuteOctober 2024 8:24amFormer smokeracuteOctober 2024 8:24amMigrainesacuteOctober 2024 8:24amMorbid obesity with BMI of 45.0- 49.9, adultacuteOctober 2024 8:24amWellness examinationacuteOctober 2024 8:24amGERD (gastroesophageal reflux disease)chronicOctober 2024 8:24amHTN (hypertension)chronicOctober 2024 8:24amOSA on CPAPchronic July 15, 2025 8:24am [facility] Work Phone: 1(263) 773-230407-09-2025 History of Present illness Narrative* Beto Reyes [...] hip 02/19/2025 Chronic obstructive pulmonary disease, unspecified ([facility]) 02/19/2025 GERD (gastroesophageal reflux disease) 07/25/2024 Hyperlipidemia 07/25/2024 Hypertension 07/25/2024 Ileus ([facility]) 07/24/2024 Migraine 02/19/2025 Nausea and vomiting 07/25/2024 Morbid (severe) obesity due to excess calories ([facility]) 02/19/2025 Resolved Ambulatory Problems Diagnosis Date Noted [...] and replace cap. 48 g 3 HYDROcodone-acetaminophen (Bruce) 5-325 MG tablet 1 tablet every 6 [...] hypertonic saline irrigations prn. documented in this encounterJefferson Memorial [id number] NoteEntered by MILAN NAILS DO on March 04, 2025 07:38:09 EDT From: MILAN NAILS DO To: [facility] Sent: 03/04/2025 07:38:08 EDT Subject: Medication Management Submitted: Complete:SUMAtriptan (SUMAtriptan 100 mg oral tablet) Signed by MILAN NAILS DO 03/04/2025 07:38:00 EDT Submitted: Complete:propranolol (propranolol 80 mg oral capsule, extended release) Signed by MILAN NALIS DO 03/04/2025 07:38:00 EDT Submitted: Complete:albuterol (Albuterol (Eqv-ProAir HFA) 90 mcg/inh inhalation aerosol) Signed by MILAN NAILS DO 03/04/2025 07:38:00 EDT Approved with modifications: propranolol (propranolol ER 80 mg capsule,24 hr,extended release) TAKE 1 CAPSULE BY MOUTH DAILY Qty: 30 cap(s) Days Supply: 30 Refills: 5 Substitutions Allowed Route To [facility]72 Approved with modifications: SUMAtriptan (sumatriptan 100 mg tablet) TAKE 1 TABLET BY MOUTH DAILY Qty: 12 EA Days Supply: 30 Refills: 5 Substitutions Allowed Route To [facility]72 Approved with modifications: albuterol (albuterol sulfate HFA 90 mcg/actuation aerosol inhaler) INHALE 2 PUFFS BY MOUTH EVERY 6 HOURS NEEDED Qty: 8.5 gm Days Supply: 25 Refills: 5 Substitutions Allowed Route To [facility]72 From: [facility] #72 To: MILAN NAILS DO Sent: March [...] Substitutions Allowed [facility]Tihhlcih02-13-8844 Note [id number]ERY Clinical Discharge Summary PERSON INFORMATION Name RICCARDO HALE Age 49 Years 1975 Sex MALE Language Malagasy MILAN MONTELONGO DO Marital Status Single Med Service Ambulatory Surgery Acct# Arrival 02/21/2025 06:22:54 Visit Reason SURGERY - COLONOSCOPY - SCREENING Acuity LOS 015 21:32 Address: [address] [place] [address] Comment: PROVIDER INFORMATION VITALS INFORMATION Vital Sign [...] cyanocobalamin (Vitam (more content not included)...[facility] HospitalWcihczox93-34-8842 History of Present illness Narrative* Beto Reyes [...] 02/19/2025 GERD (gastroesophageal reflux disease) 07/25/2024 Hyperlipidemia ([facility]) 07/25/2024 Hypertension ([facility]) 07/25/2024 Ileus (CMS/HCC) 07/24/2024 Migraine 02/19/2025 Nausea and vomiting 07/25/2024 Morbid (severe) obesity due to excess calories ([facility]) 02/19/2025 Resolved Ambulatory [...] Take 180 mg by mouth Daily HYDROcodone-acetaminophen (Bruce) 5-325 MG tablet 1 tablet every 6 [...] Clean ears at F/U documented in this encounterJefferson Memorial HospitalYfqyukvopg95-13-6865 History of Present illness Narrative* Blair Gan [...] Daily fexofenadine (LEIGH) 180 mg, Daily HYDROcodone-acetaminophen (Bruce) 5-325 MG tablet 1 tablet, Every 6 [...] Use: Not At Risk (10/24/2018) Received from [facility] Frequency of Alcohol Consumption: Never Average [...] Strength additional comments: 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 documented in this encounterJefferson Memorial HospitalNiytgrkmvn40-91-5863 NoteEntered by MILAN NAILS DO on February 04, 2025 10:00:28 EDT From: MILAN NAILS DO To: [facility] Sent: 02/04/2025 10:00:28 EDT Subject: Medication Management Submitted: Complete:DULoxetine (DULoxetine 60 mg oral delayed release capsule) Signed by MILAN NAILS DO 02/04/2025 10:00:00 EDT Approved with modifications: DULoxetine (duloxetine 60 mg capsule,delayed release) TAKE 1 CAPSULE BY MOUTH DAILY Qty: 30 cap(s) Days Supply: 30 Refills: 5 Substitutions Allowed Route To Pharmacy - [facility] From: [facility]72 To: MILAN ANILS DO Sent: February 04, 2025 8:04:56 AM [...] Substitutions Allowed [facility] HospitalTrjxstzz32-06-0478 Note Entered by MILAN NAILS DO on January 03, 2025 13:01:51 EDT From: MILAN NAILS DO To: [facility] Sent: 01/03/2025 13:01:51 EDT Subject: Medication Management Submitted: Complete:omeprazole (omeprazole 20 mg oral delayed release capsule) Signed by MILAN NAILS DO 01/03/2025 13:01:00 EDT Approved with modifications: omeprazole (omeprazole 20 mg capsule,delayed release) TAKE 1 CAPSULE BY MOUTH DAILY Qty: 30 cap(s) Days Supply: 30 Refills: 5 Substitutions Allowed Route To Pharmacy - [facility] From: [facility]72 To: MILAN NAILS DO Sent: January [...] Substitutions Allowed [facility] HospitalRnfuglij03-46-8126 Telephone encounter Note* Telephone Encounter - Colby Marc MA - 01/03/2025 11:16 AM EDT 12/03/2024 Continue baclofen 10mg PO up to 4 times daily for muscle spasm. Will not allow me to select QID. [facility] HospitalKckkbxvkdf72-37-5904 Miscellaneous Notes* Telephone Encounter - Colby Marc MA - 01/03/2025 11:16 AM EDT 12/03/2024 Continue baclofen 10mg PO up to 4 times daily for muscle spasm. Will not allow me to select QID. documented in this encounterJefferson Memorial HospitalIuuroypers60-76-2122 Telephone encounter Note* Telephone Encounter - Patrizia Buenrostro - 12/03/2024 12:18 PM EDT Contacted and he noted the FCE is not needed. He said for the update of disability this is not required. I let him know not to hesitate if we'd be needed. [facility] HospitalUrytkjpthu70-93-7296 Miscellaneous Notes* Telephone Encounter - Patrziia Buenrostro - 12/03/2024 12:18 PM EDT Contacted [...] then self-pay @ $505.00. documented in this encounterJefferson Memorial HospitalLclobrvtyi88-07-3101 Telephone encounter Note* Telephone Encounter - Patrizia Buenrostro - 11/28/2024 1:22 PM EDT Tried to contact re: referral for FCE. Requested a call back to verify if this would be going thru C[facility], covered; if not then self-pay @ $505.00. [facility] HospitalNocstogbqq83-38-7500 NotePROCEDURE: CT Sinus w/o Contrast COMPARISON: None. [...] Christopher Manjarrez MD 11/16/24 9:26 am Technologist: [facility]02-24-2025 NoteEntered by MILAN NAILS DO on November 12, 2024 07:31:34 EST From: MILAN NAILS DO To: [facility]72 Sent: 11/12/2024 07:31:34 EST Subject: Medication Management Submitted: Complete:lisinopril (lisinopril 20 mg oral tablet) Signed by MILAN NAILS DO 11/12/2024 07:31:00 EST Approved with modifications: lisinopril (lisinopril 20 mg tablet) TAKE 1 TABLET BY MOUTH DAILY Qty: 90 tab(s) Days Supply: 90 Refills: 1 Substitutions Allowed Route To Pharmacy - [facility] From: [facility]72 To: MILAN NAILS DO Sent: November 09, 2024 6:21:57 PM SLOT MANAGER Subject: Medication Management Due: November 10, 2024 12:08:02 AM SLOT MANAGER On Hold Pending Signature Drug: lisinopril (lisinopril 20 mg oral tablet), TAKE 1 TABLET BY MOUTH DAILY Quantity: 90 tab(s) Days Supply: 90 Refills: 5 Substitutions Allowed Notes from Pharmacy: Dispensed Drug: lisinopril (lisinopril 20 mg oral tablet), TAKE 1 TABLET BY MOUTH DAILY Quantity: 90 tab(s) Days Supply: 90 Refills: 5 Substitutions Allowed [facility] HospitalIqnqmeyt41-28-1930 Note Entered by MILAN NAILS DO on October 26, 2024 14:14:29 EST From: MILAN NAILS DO To: [facility] Sent: 10/26/2024 14:14:29 EST Subject: Medication Management Submitted: Complete:fexofenadine (fexofenadine 180 mg oral tablet) Signed by MLIAN NAILS DO 10/26/2024 14:14:00 EST Approved with modifications: fexofenadine (fexofenadine 180 mg tablet) TAKE 1 TABLET BY MOUTH EVERY DAY Qty: 30 tab(s) Days Supply: 30 Refills: 5 Substitutions Allowed Route To Pharmacy - [facility] From: [facility]72 To: MILAN NAILS DO Sent: October 26, 2024 12:55:48 PM SLOT MANAGER Subject: Medication Management Due: October 27, 2024 12:02:15 AM SLOT MANAGER On Hold Pending Signature Drug: fexofenadine (fexofenadine 180 mg oral tablet), TAKE 1 TABLET BY MOUTH DAILY Quantity: 30 tab(s) Days Supply: 30 Refills: 5 Substitutions Allowed Notes from Pharmacy: Dispensed Drug: fexofenadine (fexofenadine 180 mg oral tablet), TAKE 1 TABLET BY MOUTH EVERY DAY Quantity: 30 tab(s) Days Supply: 30 Refills: 5 Substitutions Allowed [facility] HospitalWhswgxbe84-10-8663 Note Entered by MILAN NAILS DO on August 27, 2024 16:27:03 EST From: MILAN NAILS DO To: [facility]72 Sent: 08/27/2024 16:27:03 EST Subject: Medication [...] 25 Refills: 5 Substitutions Allowed Route To [facility] #72 Approved with modifications: propranolol (propranolol ER 80 mg capsule,24 hr,extended release) TAKE 1 CAPSULE BY MOUTH DAILY Qty: 30 cap(s) Days Supply: 30 Refills: 5 Substitutions Allowed Route To [facility] #72 Approved with modifications: SUMAtriptan (sumatriptan 100 mg tablet) TAKE 1 TABLET BY MOUTH DAILY Qty: 12 EA Days Supply: 12 Refills: 5 Substitutions Allowed Route To [facility] #72 From: [facility]72 To: MILAN NAILS DO Sent: August 27, 2024 2:39:32 PM SLOT MANAGER Subject: Medication Management Due: August 28, 2024 12:06:32 AM SLOT MANAGER On Hold Pending Signature Drug: albuterol (Albuterol [...] Substitutions Allowed [facility] HospitalJuxzmnne83-38-5445 History of Present illness Narrative* Danya Ritter MA - 07/17/2024 10:30 AM EDT Images from the original note were not included. Reason for Appointment: EMG Patient: Riccardo Hale : 1975 EMG Computer: IAMINTOIT Referring Physician: Dr. Maurizio Patrick EMG: BLE planetarium technician: Danya Ritter [facility] Office Location: [place] Reason for EMG: c/o hypersensitivty to the bottoms of the feet. Paresthesia in the legs. R>L. NoHx of DM, not taking blood thinners. Comments: Procedure explained to the patient who expressed understanding. documented in this [facility]09-05-2024 History of Present illness Narrative* Danya Ritter MA - 05/24/2024 8:30 AM EDT Images from the original note were not included. Reason for Appointment: EMG Patient: Riccardo Hale : 1975 EMG Computer: IAMINTOIT Referring Physician: Pascale Souza PA-C EMG: ASHLEY planetarium technician: Danya Ritter CMA Office Location: [place] Reason for EMG: c/o burning, numbness, tingling in the hands. R>L. Sometimes has a hard time closing his hand. No Hx of DM, not taking blood thinners. Comments: Procedure explained to the patient who expressed understanding. documented in this [facility]01-05-2024 Evaluation note* Encounter Date Diagnosis Assessment Notes Treatment Notes Treatment Clinical Notes Sep, Acute sinusitis, rec urrence not specified, unspecified location (ICD-10 - J01.90) Drink plenty fluids, get plenty of rest. Take the amoxicillin with clavulanate and prednisone as prescribed until gone for your sinus infection. Use the fluticasone as prescribed until the symptoms of your sinus infection are improved. Use the benzonatate capsules as prescribed as needed for cough.Take Tylenol or Motrin as needed for aches pains or fevers. Follow-up with your family physician ifno improvement in 2 to 3 days Sep,ronchitis (ICD-10 - J40) [employer] Other 07-28-2023 Evaluation note* Encounter Date Diagnosis Assessment Notes Treatment Notes Treatment Clinical Notes Mar, Contact dermatitis due to poison jakob (ICD-10 - L23.7) Discussed with patient rash is consistent with contact dermatitis. Discussed typical duration of contact dermatitis 1 to 3 weeks. Advised steroid will help with inflammation and itching but rash willtake time to completely resolve. We will treat with prednisone taper. Finish entire course. May continue topical calamine or similar. Avoid scratching or picking at areas to avoid secondary infection. Keep areas clean with soap and water. Follow-up with family doctor if not gradually improving overthe next 10 days, sooner if significantly worsening or changing appearance. Patient verbalized understanding of treatment plan. Patient is advised to stop vigorously scrubbing area on left forearm asit is causing further excoriation and irritation. Reassured poison jakob rash is not contagious from itself or drainage. [employer] Other 05-30-2023 NoteCONSULTATION CONSULTATION DATE: 02/15/2023 TO: [...] the lower extremities. MEDICATION: Current medication includes Bruce 5 mg t.i.d. p.r.n. Patient reports it [...] our patients to inform us about any zlrt-eky-lnhqmot medications or herbal remedies/nutritional supplements/alternative remedies. 2. [...] treatment options with their primary care provider.[facility] HospitalGblzrgry90-05-6834 Note CONSULTATION CONSULTATION DATE: 01/06/2023 TO: Dr. [...] our patients to inform us about any vjwv-ubh-ggposzc medications or herbal remedies/nutritional supplements/alternative remedies. 2. [...] treatment options with their primary care provider.[facility] HospitalXgfoxnft33-28-7556 Note CONSULTATION PROCEDURE DATE: 10/06/2022 PREOPERATIVE DIAGNOSIS: [...] will be followed up in the office.[facility] HospitalLfqahkkq64-30-1450 NoteCONSULTATION CONSULTATION DATE: 08/26/2022 HISTORY OF PRESENT [...] his muscle relaxer. Our clinic prescribes his Bruce 5/325 b.i.d. and diclofenac 75 mg b.i.d. [...] normally does. All questions were answered today.[facility] HospitalKbhaxhng03-25-9252 NoteCONSULTATION CONSULTATION DATE: 07/22/2022 HISTORY OF PRESENT [...] a cane. He has seen Neurosurgery at [facility] in the past, which they feel, at this time, he is not a surgical candidate and to be managed by Pain Management. He current does see Dr. Patrick at [facility] as well. Activities that aggravate his pain are pulling, sitting, walking, lying down and bending. He will alternate heat and ice which he feels does not make a significant difference. Medications include trazodone 50 mg q.h.s., tizanidine 4 mg b.i.d., Lyrica 50 mg t.i.d., diclofenac 75 mg b.i.d. and Bruce 5/325 b.i.d. [facility] a [facility], which [...] be followed up in the clinic thereafter.[facility] 04-22-2022 NoteCONSULTATION PROCEDURE DATE: 04/22/2022 PRE [...] will be followed up in the office.[facility] HospitalDsaaaxww15-93-2117 NoteCONSULTATION CONSULTATION DATE: 04/15/2022 This is a 46-year-old male returning to the clinic status post #1 bilateral MBB of L2, L3 and L4, L5. The patient reportedly received a 25% relief. Today his pain is 6 out of 10, described as pressure, burn and tightness. He has recently joined the local [employer] center with his daughter and plans on going to the pool. Activities that aggravate his pain are standing, stairs, physical activity, walking and bending. Current medications include tizanidine 4 mg b.i. d. duloxetine 30 mg q. day, diclofenac 75 mg b.i.d., Lyrica 50 mg b.i.d. and Bruce 5/325 b.i.d. He is complaining of trouble [...] is gained for his trigger point injections.[facility] Evaluation note* Diagnosis Lumbar radiculopathy- Primary [...] obesity with BMI of 45.0-49.9, ad ult acuteJuly 2024 9:22amHTN (hypertension)chronicJuly 2024 9:22am [facility] Work Phone: Evaluation note* Diagnosis Rhinitis medicamentosa Other diseases of nasal cavity and sinuses documented in this [facility] Diagnosis Primary hypertension- Primary Unspecified essential hypertension Mixed hyperlipidemia Chronic pain syndrome under treatment with controlled substance agreement Blood tests for routine general physical examination Laboratory examination ordered as part of a routine general medical examination Class 3 severe obesity due to excess calories without serious comorbidity with body mass index (BMI) of 45.0 to 49.9 in adult ([facility]) Degeneration of intervertebral disc of lumbar region with discogenic back pain and lower extremity pain Neuropathy Mononeuritis of unspecified site Obstructive sleep apnea Obstructive sleep apnea (adult) (pediatric) Dandruff in adult documented in this encounter [facility] Double Fusion SystemHistory general Narrative - Reported* Type Description Date Medical History HTN (hypertension) Medical HistoryGERD (gastroesophageal reflux disease)Medical HistoryChronic pain Medical HistoryAnxietySurgical Historytonsillectomy and adenoidectomySurgical Historyablasion Get [employer] Content Other History general Narrative - Reported* Type Description Date Medical History HTN (hypertension) Medical HistoryGERD (gastroesophageal reflux disease)Medical HistoryChronic pain Medical HistoryAnxietySurgical Historytonsillectomy and adenoidectomySurgical HistoryablasionSurgical Historynerve blockSurgical Historyepidural Get Smart Content Other InstructionsNot on filedocumented in this encounter [facility]Proto[facility]o SystemReason for referral (narrative)No reason for referral information availableDayton Osteopathic Hospital Work Phone: Summary Purpose Family History No Family History Records Found Relationship Condition Age at Onset Recorded Date/T anahi mother Hypertension Unknown Diabetes mellitusUnknownHeart diseaseUnknown Advance Directives No Advanced Directives Records Found Advance Directive Response Recorded Date/ Time Advance Directives No February 23 1:23pm Date ActivatedDate GlcmsnqxipmCrowkbjj98/5/2024 5:22 PM07/27/2024 1:04 PM Chief Complaint and Reason for Visit Chief [...] on CPAP May 13, 2025 8: 54am Chief Complaint Admit Date Est Care April 17, 2025 9:22 am 1 month f/u May 13, 2025 8: 54am 2 Month F/U July 15, 2025 8 :24am Reason for Visit Admit Date Chronic bilateral low back pain March 9:22am Former smoker April 17, 2025 9:22 am Migraines April 17, 2025 9:22 am Morbid obesity with BMI of 45.0-49.9, ad ult April 17, 2025 9:22am GERD (gastroesophageal reflux disease) J 2024 9:22am HTN (hypertension) April 17, 2025 9:22 am GRACIE on CPAP April 17, 2025 9:22 am Morbid obesity with BMI of 45.0-49.9, ad ult May 13, 2025 8:54am HTN (hypertension) May 13, 2025 8: 54am GRACIE on CPAP May 13, 2025 8: 54am Anxiety July 15, 2025 8 :24am Chronic bilateral low back pain July 15, 2025 8:24am Former smoker July 15, 2025 8 :24am Migraines July 15, 2025 8 :24am Morbid obesity with BMI of 45.0-49.9, ad ult July 15, 2025 8:24am Wellness examination July 15, 2025 8:24am GERD (gastroesophageal reflux disease) O ct2024 8:24am HTN (hypertension) July 15, 2025 8 :24am GRACIE on CPAP July 15, 2025 8 :24am Additional Source Comments (unrecognized sect ion and content) No Status Records FoundNo Status Records FoundNo Status Records FoundNo Status Records FoundNo Status Records FoundNo Status Records FoundNo Status Records FoundNo Status Records FoundNo Status Records Found INFORMATION SOURCE (unrecogn ized section and content) DATE CREATED AUTHOR 03/09/2018 [facility] DATE CREATED AUTHOR AUTHOR'S ORGANIZ ATION 01/19/2022 [facility] DATE CREATED AUTHOR AUTHOR'S ORGANIZ ATION 02/25/2023 [facility] DATE CREATED AUTHOR AUTHOR'S ORGANIZ ATION 07/27/2024 [facility] DATE CREATED AUTHOR AUTHOR'S ORGANIZ ATION 03/31/2025 [facility] DATE CREATED AUTHOR AUTHOR'S ORGANIZ ATION 06/29/2025 [facility] DATE CREATED AUTHOR AUTHOR'S ORGANIZ ATION 07/15/2025 [facility] DATE CREATED AUTHOR AUTHOR'S ORGANIZ ATION 07/23/2025 [facility] DATE CREATED AUTHOR AUTHOR'S ORGANIZ ATION 2025 [facility] REASON FOR VISIT (unrecogniz ed section and content) ReasonCommentsBack PainNumbnessReasonCommentsMed RefillReasonOnset DateComments re: referral for FCE11/28/2024re: E12/03/2024ReasonCommentsCarpal TunnelReason CommentsSinusitisReasonCommentsRhinitis medicamentosa1 month check nose and clean earsReasonOnset DateCommentsMed Trafem8605/07/2025ReasonCommentsNew Patient Care Teams (unrecognized sec tion and content) Team MemberRelationshipSpecialtyStart DateEnd Date Milan Nails MD [address] [place] [address] PCP - GeneralFamily Medicine12/08/23Team MemberRelationshipSpecialtyStart Milan Wilks MD [address] [facility] [place] [address] PCP - GeneralFamily Medicine12/08/23Team MemberRelationshipSpecialtyStart Milan Wilks MD [address] [facility] [place] [address] PCP - GeneralFamily Medicine12/08/23 Pascale Souza PA [address] [place] [address] Physician EsyvxanyiVdqubnsjd63/31/24 Maurizio Patrick MD [address] [place] [address] Referring GcldwyjbpBfjkomtlj43/31/24Team MemberRelationshipSpecialtyStart [place] End Milan Villavicencio MD [address] [place] [address] PCP - GeneralFamily Medicine12/08/23Team MemberRelationshipSpecialtyStart Milan Wilks MD [address] [place] [address] PCP - GeneralFamily Medicine12/08/23Team MemberRelationshipSpecialtyStart Milan Wilks MD [address] [place] [address] PCP - GeneralFamily Medicine12/08/23 Pascale Souza PA [address] [place] [address] Physician BodglxikpCxwttbbfo69/31/24 Maurizio Patrick MD [address] [place] [address] Referring SxcfepjfkBortliexp02/31/24Team MemberRelationshipSpecialtyStart Date End Date Milan Nails MD [address] [place] [address] PCP - GeneralFamily Medicine12/08/23 Pascale Souza PA [address] [place] [address] Physician SfftvyilnUzhrlsybs05/31/24 Maurizio Patrick MD [address] [place] [address] Referring QfpzgsnfkYbkbyxewb39/31/24Team MemberRelationshipSpecialtyStart Date End Date Milan Nails MD [address] [place] [address] PCP - GeneralFamily Medicine12/08/23 Pascale Souza PA [address] [place] [address] Physician RpmddgjjzSckdahgrx78/31/24 Maurizio Patrick MD [address] [place] [address] Referring KuwaqvkglIcoxwqpwz25/31/24Team MemberRelationshipSpecialtyStart Date End Date Milan Nails MD [address] [facility] [place] [address] PCP - GeneralFamily Medicine12/08/23 Pascale Souza PA [address] [place] [address] Physician DindgrggaPognvcuao21/31/24 Maurizio Patrick MD [address] [place] [address] Referring YuprpaecpJdpbnbyoq39/31/24Team MemberRelationshipSpecialtyStart Date End Date Milan Nails MD [address] [facility] [place] [address] PCP - GeneralFamily Medicine12/08/23 Pascale Souza PA [address] [place] [address] Physician PbfgvszvaLlvxvitnx57/31/24 Maurizio Patrick MD [address] [place] [address] Referring TgjfygkgsRtzveldbl01/31/24Team MemberRelationshipSpecialtyStart Date End Date Milan Nails MD [address] [facility] [place] [address] PCP - GeneralFamily Medicine12/08/23 Pascale Souza PA [address] [place] [address] Physician SwqqusurdRediicxxp32/31/24 Maurizio Patrick MD [address] [place] [address] Referring WmhdhsczkHllwkonul63/31/24Team MemberRelationshipSpecialtyStart Date End Date Milan Nails MD [address] [facility] [place] [address] PCP - GeneralFamily Medicine12/08/23 Pascale Souza PA [address] [place] [address] Physician GcegawrbrBnyqfhhch84/31/24 Maurizio Patrick MD [address] [place] [address] Referring EnjzcaxdeXjybyrriu24/31/24Team MemberRelationshipSpecialtyStart Date End Date Milan Nails MD [address] [facility] [place] [address] PCP - GeneralFamily Medicine12/08/23 Pascale Souza PA [address] [place] [address] Physician PrttssoxaGjxdhbaur71/31/24 Maurizio Patrick MD [address] [place] [address] Referring PfsiqpvzbWansdjmdx58/31/24Team MemberRelationshipSpecialtyStart Date End Date Milan Nails MD [address] [facility] [place] [address] PCP - GeneralFamily Medicine12/08/23 Pascale Souza PA [address] [place] [address] Physician VihqnysocHedsdgajr80/31/24 Maurizio Patrick MD [address] [place] [address] Referring KitffixpgSnwfqlfwx46/31/24Team MemberRelationshipSpecialtyStart Date End Date Milan Nails MD [address] [place] [address] PCP - GeneralFamily Medicine12/08/23 Pascale Souza PA [address] [place], [place] [id number] Physician BbdlowcdxNgwjltbox53/31/24 Maurizio Patrick MD [address] [place] [id number] Referring FpqkvmdscBovkmolln47/31/24 Team Status: Active Member Role Status Dates Temi Marshall APRN SEC[employer]PERATIONS [employer]ENTER OPERATOR-C Primary Care Provider Active Team Status: Active Member Role Status Dates Temi Marshall APRN SEC[employer] OPER[employer] OPERATOR-C Primary Care Provider Active Start: April 10, 2025 Belinda Rojasending ProviderActiveStart: April 10, 2025 Team Status: Inactive Member Role Status Dates Temi Marshall APRN SEC[employer]PER[employer] OPERATOR-C Primary Care Provider Active Start: April 17, 2025 End: April 17, 2025Temi Marshall APRN SEC[employer] OPERATIONS [employer]ENTER OPERATOR-CAttending ProviderActive Start: April 17, 2025 End: April 17, 2025Team MemberRelationshipSpecialtyStart DateEnd Date Milan Nails MD PCP - GeneralFamily Medicine12/08/23 Pascale Souza PA [address] [place] [id number] Physician XlvlvmtxxTnunctnin21/31/24 Maurizio Patrick MD [address] [place] [address] Referring UaoabytugPflhwwjee98/31/24 Team Status: Inactive Member Role Status Dates Temi Marshall APRN SEC[employer] OPERATIONS [employer] OPERATOR-C Primary Care Provider Active Start: May 13, 2025 End: May 13, 2025Temi Marshall TIMBER INSPECTOR SECURITY OPERATIONS CENTER OPERATOR-CAttending ProviderActive Start: May 13, 2025 End: May 13, 2025 Team Status: Active Member Role/Relationship Status Dates Temi Marshall APRN SEC[employer]PER[employer] OPERATOR-C Primary Care Provider Active Team Status: Inactive Member Role/Relationship Status Dates Temi Marshall APRN SEC[employer]PER[employer] OPERATOR-C Primary Care Provider Active Start: April 17, 2025 End: April 17, 2025Temi Rameyachemelany TIMBER INSPECTOR SEC[employer]PER[employer] OPERATOR-CAttending ProviderActive Start: April 17, 2025 End: April 17, 2025 Team Status: Inactive Member Role/Relationship Status Dates Temi Marshall APRN SEC[employer]PER[employer] OPERATOR-C Primary Care Provider Active Start: May 13, 2025 End: May 13, 2025Temi Rameyacher TIMBER INSPECTOR SEC[employer]PER[employer] OPERATOR-CAttending ProviderActive Start: May 13, 2025 End: May 13, 2025 Team Status: Inactive Member Role/Relationship Status Dates Temi Rameyacher TIMBER INSPECTOR SEC[employer] OPERATOR-C Primary Care Provider Active Start: June End: July 15, 2025Jenati Marshall TIMBER INSPECTOR SEC[employer] OPERATOR-CAttending ProviderActive Start: July 15, 2025 End: July 15, 2025Team MemberRelationshipSpecialtyStart DateEnd Date Maximo Stout, TIMBER INSPECTOR-MATERIAL PLANNER [address] [place] [address] PCP - GeneralInternal Yrzvicny46/3/25 Goals (unrecognized section and content) Goals may [...] BE BASED ON THE PRIMARY CLINICAL RECORDS. [facility] [employer] [facility]. provides no warranty or guarantee of the accuracy or completeness of information in this document.
--- NOTE | 2025-09-16 12:35 | PM.CN ---
Consult Note: HPI Data of Consult Patient: known to practice within the last 3 years Consult date: 09/16/25 Requesting Physician: Renetta Terrazas MD Primary Care Provider: EDWIGE TRENT Consult Narrative Reason for consult: low back pain Narrative: 50yom who presents for assessment. had severe flare of low back pain in past few weeks, which was helped by mdp. has upcoming appointment with neurosurgeon to discuss options. continues on norco. cc:: CC: Renetta Terrazas MD Review of Systems ROS Status of ROS 10 or more systems reviewed and unremarkable except as noted in history and below PFSH PFSH Medical History Osteoarthritis ?M19.90 - Unspecified osteoarthritis, unspecified site (ICD-10) Numbness and tingling ?R20.0 - Anesthesia of skin (ICD-10) ?R20.2 - Paresthesia of skin (ICD-10) Obesity ?E66.9 - Obesity, unspecified (ICD-10) Acid reflux ?K21.9 - Gastro-esophageal reflux disease without esophagitis (ICD-10) Former smoker ?Z87.891 - Personal history of nicotine dependence (ICD-10) Sleep apnea ?G47.30 - Sleep apnea, unspecified (ICD-10) High cholesterol ?E78.00 - Pure hypercholesterolemia, unspecified (ICD-10) Hypertension ?I10 - Essential (primary) hypertension (ICD-10) Surgical History History of tonsillectomy and adenoidectomy ?Z90.89 - Acquired absence of other organs (ICD-10) Meds Home Medications and Allergies Home Medications ?Medication ?Instructions ?Recorded ?Confirmed ?Type albuterol sulfate 90 mcg/actuation inhalation Q4H PRN shortness of 03/10/23 History aerosol inhaler breath or wheezing duloxetine 30 mg capsule,delayed 30 mg PO QDAY 03/10/23 06/24/25 History release lisinopril 20 mg tablet 20 mg PO QDAY 03/10/23 06/24/25 History omeprazole 20 mg capsule,delayed 20 mg PO QDAY 03/10/23 06/24/25 History release trazodone 50 mg tablet 50 mg PO .hs PRN sleep 03/10/23 06/24/25 History pregabalin 200 mg capsule (Lyrica) 200 mg PO TID 03/01/24 06/24/25 History propranolol 80 mg capsule,24 80 mg PO DAILY 03/01/24 06/24/25 History hr,extended release amitriptyline 25 mg tablet 25 mg PO DAILY 04/24/24 06/24/25 History baclofen 10 mg tablet 10 mg PO DAILY 04/24/24 06/24/25 History sumatriptan succinate 100 mg tablet 100 mg PO PRN migraine headache 04/24/24 History diclofenac sodium 75 mg 75 mg PO BID PRN pain #60 tabs 12/31/24 06/24/25 Rx tablet,delayed release phentermine 37.5 mg tablet mg 04/22/25 History hydrocodone 5 mg-acetaminophen 325 1 tab PO TID PRN pain #75 tabs 05/02/25 06/24/25 Rx mg tablet phentermine 37.5 mg tablet 37.5 mg PO DAILY 06/24/25 06/24/25 History (Adipex-P) diclofenac sodium 75 mg 75 mg PO BID PRN pain #60 tabs 07/04/25 Rx tablet,delayed release hydrocodone 5 mg-acetaminophen 325 1 tab PO TID PRN pain #90 tabs 07/04/25 Rx mg tablet hydrocodone 5 mg-acetaminophen 325 1 tab PO TID PRN pain #75 tabs 08/14/25 Rx mg tablet hydrocodone 5 mg-acetaminophen 325 1 tab PO TID PRN pain #75 tabs 09/11/25 Rx mg tablet Allergies Allergy/AdvReac Type Severity Reaction Status Date / Time No Known Drug Allergies Allergy Verified 04/22/25 10:22 Exam Narrative Exam Narrative: Psych-alert and oriented x 3. Attentive and appropriate, constitutionally normal, displays normal mood and affect per situation.? There are no obvious deficits in memory, reasoning, or intellect.? Skin-no obvious rashes, bruising, erythema noted to the patient's area of pain. Extremities- extremities are warm with minimal edema and palpable pulses. Lumbar-no significant tenderness to palpation noted in the lumbar spine and paraspinal musculature.? Pain is elicited with extension, and lateral rotation of the lumbar spine. Range of motion is slightly diminished with these motions due to pain. Coordination remains intact.? Gait remains non-antalgic. Assessment and Plan Assessment and Plan (1) Lumbar stenosis with neurogenic claudication: (2) Lumbar spondylosis: Plan 50yom who presents for assessment. has had some relief of recent flare with mdp. has upcoming appt with nsg to discuss options, so will defer plans until after this evaluation. he is in agreement. meds reviewed. refilled norco. follow up after neurosurgery appointment.
== END 2025-09-16 11:51 | disposition home or self-care (01) ==
LOC: PM 11:50
PROVIDERS: PCP Nurse Practitioner Family; Visit Provider Anesthesiology
DX: M48.062 Spinal stenosis, lumbar region with neurogenic claudication (principal); M47.816 Spondylosis without myelopathy or radiculopathy, lumbar region
CPT/HCPCS: G0463